=== PATIENT | male | born 1960 | race Caucasian/White ===

== ENCOUNTER → 2017-12-14 11:47 | Outpatient (CLI) | payer OTHER, MEDICARE, SELFPAY ==
[2017-12-14 15:39] LABS: ALB/GLOB Ratio 0.9 RATIO (0.9-2.4); AST(SGOT) 39 U/L (15-37); Alanine Aminotransfer ALT/SGPT 45 U/L (16-61); Albumin, Serum 3.7 g/dL (3.2-5.0); Alkaline Phosphatase 90 U/L (45-117); Anion Gap 7 (5-15); BUN 23 mg/dL (7-18); BUN/Creat Ratio 12.8 RATIO (10-20); Calcium,Total 9.2 mg/dL (8.5-10.1); Chloride 102 mmol/L (98-107); Cholesterol 233 mg/dL (200); Creatinine, Serum 1.79 mg/dL (0.70-1.30); EST Glomerular Filtration Rate 42 mL/min (>60); Est Glom Filt Rate - Afr Amer 50 mL/min (>60); Globulin 4.1 g/dL (2.2-4.2); Glucose 121 mg/dL (74-106); High Density Lipoprotein 38 mg/dL; Potassium 3.6 mmol/L (3.5-5.1); Protein, Total 7.8 g/dL (6.4-8.2); Sodium Level 139 mmol/L (136-145); Triglycerides 251 mg/dL; Very Low Density Lipoprotein 50 mg/dL (5-40)
[2017-12-14 15:44] LABS: Absolute Lymphocyte Count 1.14 X10^3/ul (0.83-4.51); Absolute Neutrophil Count 5.3 X10^3/uL (2.0-7.7); Basophil# 0.05 X10^3/uL; Basophil% 0.7 % (0-1); Eosinophil# 0.27 X10^3/uL; Eosinophils% 3.6 % (0-5); Hematocrit 46.2 % (40-54); Hemoglobin 16.1 g/dl (13.0-16.5); Lymphocyte # 1.14 X10^3/ul (4.0); Mean Corp Hgb Conc 34.8 g/gl (32-36); Mean Corpuscular Hgb 30.1 pg (27.0-32.0); Mean Corpuscular Volume 86.4 fL (80-94); Mean Platelet Vol. 13.3 fl (6.2-12.0); Monocyte# 0.78 X10^3/uL; Monocyte% 10.3 % (0-10); Neutrophil # 5.26 X10^3/uL (2.7-7.7); Neutrophil % 69.3 % (47-70); POSITIVE COUNT NO; POSITIVE DIFFERENTIAL NO; POSITIVE MORPHOLOGY NO; Platelet Count 150 K/mm3 (150-450); RBC Distribution Width CV 13.5 % (11.6-14.6); RBC Distribution Width SD 41.6 fl (35.1-43.9); Red Blood Count 5.35 M/mm3 (4.6-6.2); White Blood Count 7.6 K/mm3 (4.4-11.0)
[2017-12-14 15:47] LABS: Hemoglobin A1c 8.5 % (4.2-6.3)
[2017-12-14 16:11] LABS: Microalbumin:Creatinine Ratio 749.2 mg/g CRE (<30 mg/g CRE)
[2017-12-15 13:36] LABS: LDL, Direct 120295 155 mg/dL (0-99)
== END ==
PROVIDERS: Family Provider Family Medicine; PCP Family Medicine; Visit Provider Family Medicine
DX: E11.311 Type 2 diabetes mellitus with unspecified diabetic retinopathy with macular edema (principal); I10 Essential (primary) hypertension; E87.6 Hypokalemia; N18.3 Chronic kidney disease, stage 3 (moderate); E66.9 Obesity, unspecified
CPT/HCPCS: 36415; 80053; 80061; 82043; 82570; 83036; 83721; 85025

== ENCOUNTER 2017-12-14 12:56 | Emergency (ER) | payer OTHER, SELFPAY ==
[2017-12-14 12:58] VITALS: BP 108/68; PULSE 107; RESP 18; TEMP 37.1; O2SAT 97; BMI 28.7
--- NOTE | 2017-12-14 14:58 | ED.VISSUMM ---
- ER Visit Summary Date of Service: 12/14/17 Chief Complaint: Right arm numbness History of Present Illness: The patient is a 57 M patient presents with 3 week history of right arm numbness he is left-handed but feels paresthesias in his right arm only below the elbow. Above the elbow he has full strength sensation and full range of motion below the elbow he has full strength and full range of motion but feels some subjective paresthesias. He claims this is circumferential. He has no headache, no facial droop no speech difficulties no vision changes or any other neurological symptoms. Physical Examination: Not appear in acute distress. Moist mucous membranes, no obvious facial deformity No C-spine tenderness supple neck. Regular rate and rhythm without any obvious murmurs Clear lungs bilaterally speaking in full sentences without any obvious respiratory distress Abdomen soft and nontender no guarding or rebound Moves all extremities without any difficulty or pain. Skin does not show any obvious rashes or lesions, no trauma. Alert oriented ?3 with no gross focal deficit. He does have subjective paresthesias below his elbow, this is circumferential he claims he has decreased sensation again this is in no nerve distribution area it is circumferential and all below the elbow he has normal sensation above the elbow no neck pain. He has normal cranial nerves normal gait and otherwise normal neurological exam Emergency Department Course and Treatment: I am unsure about the pathology of the disease, however I am not worried about specific nerve, I am not worried about cervical or brain lesions, patient will be discharged to follow-up with neurology. Disposition: Discharge stable condition Impression: Right arm paresthesias This note was generated with [employer] dictation software. It may contain incorrect words, spelling, and punctuation that were not noted in review of the chart prior to signing ED Disposition - Plan for ED Patient: Disposition: Home or Assisted Living Chief Complaint: Numb/Ting Instructions: ED Neuropathy Peripheral Referrals: Adriel Elizabeth MD [STAFF PHYSICIAN] - 3-5 Days
--- NOTE | 2017-12-14 15:16 | ED.RN ---
pt given written and verbal discharge instructions and home going prescriptions. pt verbalizes understanding. pt educated any new or worsened sx to return to ed immediately otherwise fo.low up with dr. bedoya. pt ambulates out of dept by self.
== END 2017-12-14 15:18 | disposition home or self-care (01) ==
PROVIDERS: Emergency Provider Emergency Medicine; Family Provider Family Medicine; PCP Family Medicine
DX: R20.2 Paresthesia of skin (principal); G62.9 Polyneuropathy, unspecified; Z79.82 Long term (current) use of aspirin; Z79.899 Other long term (current) drug therapy; Z72.0 Tobacco use
CPT/HCPCS: 99281

== ENCOUNTER 2018-04-06 19:56 | Observation (INO) | payer OTHER, MEDICARE, SELFPAY ==
[2018-04-06 19:58] VITALS: BP 139/80; PULSE 108; RESP 17; TEMP 36.4; O2SAT 100; BMI 29.5
[2018-04-06 20:55] LABS: Absolute Lymphocyte Count 0.95 X10^3/ul (0.83-4.51); Absolute Neutrophil Count 17.1 X10^3/uL (2.0-7.7); Basophil# 0.01 X10^3/uL; Basophil% 0.1 % (0-1); Eosinophil# 0.01 X10^3/uL; Eosinophils% 0.1 % (0-5); Hematocrit 48.1 % (40-54); Hemoglobin 17.2 g/dl (13.0-16.5); Lymphocyte # 0.95 X10^3/ul (4.0); Lymphocyte % 4.9 % (19-41); Mean Corp Hgb Conc 35.8 g/gl (32-36); Mean Corpuscular Hgb 30.3 pg (27.0-32.0); Mean Corpuscular Volume 84.8 fL (80-94); Mean Platelet Vol. 11.9 fl (6.2-12.0); Monocyte# 1.38 X10^3/uL; Monocyte% 7.1 % (0-10); Neutrophil # 17.07 X10^3/uL (2.7-7.7); Neutrophil % 87.5 % (47-70); Platelet Count 209 K/mm3 (150-450); RBC Distribution Width CV 12.9 % (11.6-14.6); RBC Distribution Width SD 39.4 fl (35.1-43.9); Red Blood Count 5.67 M/mm3 (4.6-6.2); White Blood Count 19.5 K/mm3 (4.4-11.0)
[2018-04-06 21:00] LABS: Anion Gap 10 (5-15); BUN 61 mg/dL (7-18); BUN/Creat Ratio 27.6 RATIO (10-20); Calcium,Total 9.3 mg/dL (8.5-10.1); Chloride 82 mmol/L (98-107); Creatinine, Serum 2.21 mg/dL (0.70-1.30); EST Glomerular Filtration Rate 33 mL/min (>60); Est Glom Filt Rate - Afr Amer 39 mL/min (>60); Estimated Creatinine Clearance 35.99 ml/min; Glucose 433 mg/dL (74-106); Potassium 3.7 mmol/L (3.5-5.1); Sodium Level 126 mmol/L (136-145)
[2018-04-06 21:03] LABS: POSITIVE COUNT NO; POSITIVE DIFFERENTIAL NO; POSITIVE MORPHOLOGY NO
[2018-04-06 21:29] VITALS: BP 147/87; PULSE 94; RESP 14; O2SAT 94
--- NOTE | 2018-04-06 22:03 | CT_ITS ---
HISTORY: ABD PAIN. Prior back surgery and hernia repair TECHNIQUE: Helically acquired images were obtained of the abdomen and pelvis without oral or IV contrast as per renal stone protocol. A radiation dose optimization technique was used for this scan. IV Contrast dosage and agent: None. Oral contrast: None. COMPARISON: 04/10/2017 FINDINGS: GI tract: Localized gas and fluid distention of mildly dilated jejunal small bowel loops within the left abdomen and diagnostic considerations would include focal ileus or possibly partial small bowel obstruction. Small bowel loops measure up to 3.4 cm in diameter. No discrete transition zone and no obstructing lesion seen. CT barium has not yet reached the colon. The colon appears normal and is nondilated with gas and fecal residue. Normal appendix. Lower thorax: No pleural effusion. Limited non-infusion exam. Allowing for this, the liver, spleen, pancreas, gallbladder, and biliary system show no CT abnormality. Both kidneys are normal in position. No renal or ureteral calculi and no hydronephrosis or hydroureter. Adrenal glands are not enlarged. Abdominal aorta is diffusely atherosclerotic and is normal in caliber. No ascites or retroperitoneal lymphadenopathy. Pelvis: The prostate gland is not enlarged. Urinary bladder appears normal. The pelvis shows no free fluid or lymphadenopathy. Bones: Laminectomy with surgical fusion of the lower lumbar spine. No acute osseous abnormality. CT/Abdomen/Pelvis without Cont IMPRESSION: 1. Localized gas and fluid distention of jejunal small bowel loops representing localized ileus or possibly partial small bowel obstruction. No obstructing lesion seen. 2. Extensive atherosclerotic calcifications. 3. Lumbar spine surgical fusion. Individualized dose optimization techniques were used for this CT. at 0034 Reported and signed by: David Dougherty MD N.B. : The above information has been verbally conveyed by David Dougherty to Dr. Jaki MD, on 04/07/2018 00:58:46 (ET). Electronically Signed: David Dougherty, at 0:33 EST Tel , Service support ,
--- NOTE | 2018-04-06 22:06 | ED.DCSUM_ITS ---
- ER Visit Summary Date of Service: 04/06/18 Chief Complaint: Vomiting and abdominal pain History of Present Illness: The patient is a 57 M who presents for 2 days of vomiting and abdominal pain. Patient states he began vomiting 2 days ago, and has been having associated abdominal cramping diffusely. He has had subjective cold sweats but no measured fever. He denies diarrhea and is having normal bowel movements. No urinary symptoms. No chest pain, shortness of breath, cough or upper respiratory symptoms. Patient is diabetic and has history of peripheral neuropathy. Multiple back surgeries but no history of abdominal surgery. He is not on blood thinners. Physical Examination: Vital signs: afebrile, hemodynamically stable, no hypoxia on room air General: well nourished, well developed, appears uncomfortable Skin: warm, dry, no rash, pale HEENT: normocephalic and atraumatic; PERRL, EOMI, dry mucous membranes Cardiovascular: Tachycardic rate and rhythm without murmurs, no peripheral edema, 2+ pulses all distal extremities Respiratory: No increased work of breathing, lungs are clear to auscultation bilaterally, no rales, rhonchi or wheezing Abdominal: Abdomen is soft, diffusely tender to light palpation, especially in the periumbilical region with normoactive bowel sounds, no guarding or rebound, no masses MSK: Moves all extremities, no deformities, normal strength Neuro: Awake and alert, oriented ?4. No facial droop, sensation and motor function intact and symmetric Test Results: Abnormal Lab Results 04/06/18 04/06/18 04/06/18 20:37 20:37 20:37 WBC 19.5 H RBC 5.67 Hgb 17.2 H Hct 48.1 MCV 84.8 MCH 30.3 MCHC 35.8 RDW 12.9 RDW Differential 39.4 Plt Count 209 MPV 11.9 Immature Gran % (Auto) 0.300 Neut % (Auto) 87.5 H Lymph % (Auto) 4.9 L [place] % (Auto) 7.1 Eos % (Auto) 0.1 Baso % (Auto) 0.1 Absolute Neuts (auto) 17.1 H Absolute Lymphs (auto) 0.95 Total Counted Not Reportable Sodium 126 L Potassium 3.7 Chloride 82 L Carbon Dioxide 34.0 H Anion Gap 10 BUN 61 H Creatinine 2.21 H Estim Creat Clear Calc 35.99 Est GFR (MDRD) Af Amer 39 L Est GFR (MDRD) Non-Af 33 L BUN/Creatinine Ratio 27.6 H Glucose 433 H Calcium 9.3 Total Bilirubin 1.20 H Direct Bilirubin 0.33 H AST 11 L ALT 19 Alkaline Phosphatase 164 H Total Protein 7.6 Albumin 3.7 Globulin 3.9 Lipase Urine Color Urine Clarity Urine pH Ur Specific [place] Urine Protein Urine Glucose (UA) Urine Ketones Urine Occult Blood Urine Nitrite Urine Bilirubin Urine Urobilinogen Ur Leukocyte Esterase Urine RBC Urine WBC Ur Squamous Epith Cells Urine Bacteria Urine Mucus 04/06/18 04/06/18 20:37 23:26 WBC RBC Hgb Hct MCV MCH MCHC RDW RDW Differential Plt Count MPV Immature Gran % (Auto) Neut % (Auto) Lymph % (Auto) [place] % (Auto) Eos % (Auto) Baso % (Auto) Absolute Neuts (auto) Absolute Lymphs (auto) Total Counted Sodium Potassium Chloride Carbon Dioxide Anion Gap BUN Creatinine Estim Creat Clear Calc Est GFR (MDRD) Af Amer Est GFR (MDRD) Non-Af BUN/Creatinine Ratio Glucose Calcium Total Bilirubin Direct Bilirubin AST ALT Alkaline Phosphatase Total Protein Albumin Globulin Lipase 144 Urine Color Yellow Urine Clarity Clear Urine pH 5.0 Ur Specific [place] 1.020 Urine Protein 100 H Urine Glucose (UA) 1000 H Urine Ketones 15 H Urine Occult Blood 25 H Urine Nitrite Negative Urine Bilirubin Negative Urine Urobilinogen Normal Ur Leukocyte Esterase Negative Urine RBC 0-5 SEEN Urine WBC 0-5 SEEN Ur Squamous Epith Cells 0-5 SEEN Urine Bacteria RARE Urine Mucus 0 SEEN Clinical Impression(s) from Imaging Studies Brain CT 04/06/18 22:19 IMPRESSION: 1. No hemorrhage or acute disease identified. 2. Bilateral remote infarcts and white matter chronic ischemic changes. 3. Right ethmoid sinusitis and chronic appearing right sphenoid sinusitis. Individualized dose optimization techniques were used for this CT. at 0016 Reported and signed by: David Dougherty MD Electronically Signed: David Dougherty, at 0:15 EST Tel , Service support , Medications Given Discontinued Medications Sodium Chloride () 1,000 mls @ 999 mls/hr IV .Q1H1M ONE Stop: 04/06/18 23:02 Last Admin: 04/06/18 22:10 Dose: 999 mls/hr Morphine Sulfate () 4 mg IV X1 ONE Stop: 04/06/18 22:03 Last Admin: 04/06/18 22:10 Dose: 4 mg Ondansetron HCl (Zofran) 4 mg IV X1 ONE Stop: 04/06/18 22:03 Last Admin: 04/06/18 22:10 Dose: 4 mg Emergency Department Course and Treatment: Patient was given IV fluids for hydration. Labs were performed. Patient received Zofran and morphine for symptomatic relief. Patient has a leukocytosis of 19.5. Hyponatremia of 126 and hyperglycemia of 433, so corrected sodium of 131. Patient has significantly elevated BUN and elevated creatinine compared to his baseline, consistent with dehydration. His examination and labs are consistent with dehydration. CT abdomen and pelvis performed to look for any significant intra-abdominal pathology. Patient will likely require admission for treatment of his dehydration, symptomatic control of his vomiting and abdominal pain in a patient with underlying diabetes. Patient was signed out to the night physician for follow-up of imaging and final disposition. During patient's workup, he told 1 of the nurses that he fell twice in the last 2 days, striking his head both times. Patient is not on blood thinners. A head CT was performed that showed no intracranial hemorrhage. Patient had no findings on exam that were concerning for traumatic injuries that would need further evaluation. Treatment Plan: [] Disposition: [] Impression: Hyperglycemia, acute dehydration, vomiting illness, abdominal pain This note was generated with [employer] dictation software. It may contain incorrect words, spelling, and punctuation that were not noted in review of the chart prior to signing ED Disposition - Plan for ED Patient: Chief Complaint: Nausea/Vomiting Referrals: Chema Mckeon DO [Primary Care Provider] -
[2018-04-06] MEDS: Morphine 4 MG/ML Syringe IV (22:10)
[2018-04-06] MEDS: Ondansetron 4 MG/2 ML Vial IV (22:10)
[2018-04-06] MEDS: 0.9% Normal Saline 1,000 ML 999 ML IV (22:10)
--- NOTE | 2018-04-06 22:19 | CT_ITS ---
HISTORY: Fall x 2 in last 2 days TECHNIQUE: Multiple axial images were obtained of the brain without intravenous contrast. A radiation dose optimization technique was used for this scan. IV Contrast dosage and agent: None. COMPARISON: None FINDINGS: No hydrocephalus. Left parietal remote cortical and subcortical infarct with ipsilateral ex vacuo mild dilatation of the left lateral ventricle. White matter chronic ischemic changes and right thalamic remote lacunar infarct No intracranial mass, hemorrhage, or acute disease seen. No significant mass-effect. Posterior fossa structures are unremarkable. No suspicious extra-axial fluid collection. Bilateral carotid atherosclerotic calcifications Chronic appearing opacification of the right sphenoid sinus. Posterior ethmoid mild sinusitis on the right. Probable remote blowout fracture of the medial wall of the left orbit. Secondary encroachment of the left ethmoid air cells. Mastoids appear clear. The calvarium appears intact. No scalp hematoma seen. CT/Brain/Head without Contrast IMPRESSION: 1. No hemorrhage or acute disease identified. 2. Bilateral remote infarcts and white matter chronic ischemic changes. 3. Right ethmoid sinusitis and chronic appearing right sphenoid sinusitis. Individualized dose optimization techniques were used for this CT. at 0016 Reported and signed by: David Dougherty MD Electronically Signed: David Dougherty, at 0:15 EST Tel , Service support ,
--- NOTE | 2018-04-06 22:21 | ED.RN ---
DR. GRANGER MADE AWARE THAT PATIENT TOLD ME THAT HE FELL TWICE YESTERDAY ON HIS FACE. SHE IS GOING TO ORDER A HEAD CT.
[2018-04-06 22:23] LABS: Lipase 144 U/L (73-393)
[2018-04-06 22:28] LABS: AST(SGOT) 11 U/L (15-37); Alanine Aminotransfer ALT/SGPT 19 U/L (16-61); Albumin, Serum 3.7 g/dL (3.2-5.0); Alkaline Phosphatase 164 U/L (45-117); Bilirubin, Direct 0.33 mg/dL (0.00-0.30); Globulin 3.9 g/dL (2.2-4.2); Protein, Total 7.6 g/dL (6.4-8.2)
[2018-04-06 23:18] VITALS: BP 172/94; PULSE 90; RESP 14; O2SAT 95
[2018-04-06 23:29] LABS: Mucous, Urine 0 SEEN /hpf (<or=2+)
[2018-04-06 23:32] LABS: Color, Urine Yellow (Yellow); Glucose, Dipstick 1000 mg/dl (Normal); Ketone-Dipstick 15 mg/dl (Negative); Leukocyte Esterase-Dipstick Negative /ul (Negative); Nitrite-Dipstick Negative (Negative); Occult Blood-Urine 25 /ul (Negative); Protein-Dipstick 100 mg/dl (Negative); Urine Bilirubin Dipstick Negative (Negative); Urine Clarity Clear (Clear); Urine Urobilinogen Normal (Normal)
[2018-04-06 23:44] LABS: Bacteria RARE /hpf (None Seen)
[2018-04-06 23:45] LABS: Red Blood Cells-Urine 0-5 SEEN /hpf (0-5); Squamous Epithelial Cells - UA 0-5 SEEN /hpf (0-5); White Blood Cells 0-5 SEEN /hpf (0-5)
[2018-04-07] VITALS (11 sets, daily range): BP systolic 114–174; BP diastolic 75–101; PULSE 70–88; RESP 16–22; TEMP 36.5–37; O2SAT 95–98; BMI 29.2; BMI 29.3
[2018-04-07] MEDS: Lactated Ringers 1,000 ML 250 ML IV (01:08)
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
[2018-04-07 02:16] LABS: Bedside Glucose 353 mg/dL (70-110)
[2018-04-07] MEDS: Potassium Chloride 40 MEQ in 0.9% Normal Saline 1,000 ML 100 MEQ IV (04:28)
[2018-04-07] MEDS: Heparin Injection (Vial) 5,000 UNIT/ML VIAL 5000 UNIT SC ×3 (04:56→22:14)
[2018-04-07] MEDS: Insulin Lispro 100 UNIT/ML INSULN.PEN SQ ×3 (05:00→16:23)
[2018-04-07 05:06] LABS: Bedside Glucose 342 mg/dL (70-110)
[2018-04-07 05:43] LABS: Absolute Lymphocyte Count 1.39 X10^3/ul (0.83-4.51); Absolute Neutrophil Count 14.4 X10^3/uL (2.0-7.7); Basophil# 0.01 X10^3/uL; Basophil% 0.1 % (0-1); Eosinophil# 0.02 X10^3/uL; Eosinophils% 0.1 % (0-5); Hematocrit 45.5 % (40-54); Hemoglobin 16.2 g/dl (13.0-16.5); Lymphocyte # 1.39 X10^3/ul (4.0); Lymphocyte % 8.1 % (19-41); Mean Corp Hgb Conc 35.6 g/gl (32-36); Mean Corpuscular Hgb 30.2 pg (27.0-32.0); Mean Corpuscular Volume 84.7 fL (80-94); Mean Platelet Vol. 12.4 fl (6.2-12.0); Monocyte# 1.27 X10^3/uL; Monocyte% 7.4 % (0-10); Neutrophil # 14.42 X10^3/uL (2.7-7.7); Platelet Count 200 K/mm3 (150-450); RBC Distribution Width CV 12.9 % (11.6-14.6); RBC Distribution Width SD 39.1 fl (35.1-43.9); Red Blood Count 5.37 M/mm3 (4.6-6.2); White Blood Count 17.2 K/mm3 (4.4-11.0)
[2018-04-07 05:46] LABS: POSITIVE COUNT NO; POSITIVE DIFFERENTIAL NO; POSITIVE MORPHOLOGY NO
[2018-04-07 05:57] LABS: Anion Gap 11 (5-15); BUN 54 mg/dL (7-18); BUN/Creat Ratio 27.4 RATIO (10-20); Calcium,Total 8.6 mg/dL (8.5-10.1); Chloride 89 mmol/L (98-107); Creatinine, Serum 1.97 mg/dL (0.70-1.30); EST Glomerular Filtration Rate 37 mL/min (>60); Est Glom Filt Rate - Afr Amer 45 mL/min (>60); Estimated Creatinine Clearance 40.37 ml/min; Glucose 329 mg/dL (74-106); Potassium 3.9 mmol/L (3.5-5.1); Sodium Level 133 mmol/L (136-145)
[2018-04-07] MEDS: hydrALAZINE 20 MG/ML Vial 10 MG IV ×2 (06:03→20:07)
[2018-04-07] MEDS: Metoprolol Tartrate 50 MG Tablet PO ×2 (06:05→22:14)
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
[2018-04-07] MEDS: Pregabalin 50 MG Capsule 100 MG PO ×2 (08:28→22:15)
[2018-04-07] MEDS: Fenofibrate 48 MG Tablet PO (09:41)
[2018-04-07 09:50] LABS: Hemoglobin A1c 9.3 % (4.2-6.3)
--- NOTE | 2018-04-07 10:28 | CASEMGMT ---
Assessment SW attempted to see pt, however pt sleeping soundly. Call placed to pt Karen. Pt lives at home with . works during day and pt is alone. states that pt has been falling daily at home and it takes time for him to get up. Pt does not have a medical alert. Pt brother in law does live upstairs but does not come down often to assist pt. Pt does have two children but they are not involved. assists pt with shower and meals but states pt does not eat properly when she is not home. also expressing concerns that pt is not taking medication or insulin and when attempts to encourage pt to take meds he gets angry with her. Pt is current with [facility] and states pt adores his [facility] liason, but doesn't listen to her. Pt has never has HHS or use a SNF. also stating she feels pt is giving up on life. Per pt sleeps most of the day and becomes angry at her and will not talk to her for several days at a time. Pt feels pt is depressed and in denial. SW inquired if pt has ever spoke with a counselor and pt has not. Pt does have a PCP but often cancels his appointments. Pt is agreeable to home health PT/OT/RN if warranted. SW will continue to follow for d/c planning. AVANI Edmondson
[2018-04-07] MEDS: Ondansetron 4 MG/2 ML Vial IV ×2 (11:24→20:08)
[2018-04-07 11:26] LABS: Bedside Glucose 190 mg/dL (70-110)
--- NOTE | 2018-04-07 12:42 | CASEMGMT ---
Social Work Met with pt in room and introduced self and role of SW. Pt stating that he has been falling a lot at home. States he uses a cane and walker but loses his balance and will fall frequently. Pt states if his were not still with him he would not be able to live alone and also states he is alone all the time because he is always at work. SW inquired about taking medications and pt is adamant that he takes meds and insulin just as ordered. SW asked pt if he would be open to home health services if warranted and pt agreeable. Also discussed possibility of SNF and pt is willing to go to SNF for rehab if needed for my family. SW explained that PT/OT has been ordered and will be in to evaluate his level of care needs. SW asked pt about feelings of depression and pt immediately became tearful and admits to feeling depressed. Pt reviewing difficult things in past that he feels have attributed to depression. Pt also states he gets angry at and yells at her and then realizes she has not done anything wrong. Pt states he then has to get right in my head and straighten myself out. Pt admits to sleeping much of the time while at home. SW spoke with pt about talking to a counselor. Pt states he never has but is agreeable to talk to someone at this time. Message left with Varinder at [facility]. Will await return call to make referral. Will continue to follow to determine appropriate d/c plan. AVANI Edmondson
[2018-04-07 16:31] LABS: Bedside Glucose 190 mg/dL (70-110)
[2018-04-07] MEDS: diazePAM 5 MG Tablet PO (20:08)
[2018-04-07 22:31] LABS: Bedside Glucose 199 mg/dL (70-110)
[2018-04-08] VITALS (13 sets, daily range): BP systolic 147–178; BP diastolic 69–95; PULSE 64–85; RESP 16–18; TEMP 36.7–37; O2SAT 96–98
[2018-04-08] MEDS: Insulin Lispro 100 UNIT/ML INSULN.PEN SQ ×4 (00:33→17:26)
[2018-04-08 00:41] LABS: Bedside Glucose 197 mg/dL (70-110)
[2018-04-08] MEDS: 0.9% NaCl Peripheral Flush Adult/Peds IV ×3 (03:04→20:12)
[2018-04-08] MEDS: Heparin Injection (Vial) 5,000 UNIT/ML VIAL 5000 UNIT SC ×3 (06:07→21:41)
[2018-04-08 06:21] LABS: Bedside Glucose 159 mg/dL (70-110)
[2018-04-08 06:51] LABS: Absolute Lymphocyte Count 1.28 X10^3/ul (0.83-4.51); Absolute Neutrophil Count 6.8 X10^3/uL (2.0-7.7); Basophil# 0.01 X10^3/uL; Basophil% 0.1 % (0-1); Eosinophils% 1.1 % (0-5); Hematocrit 45.6 % (40-54); Lymphocyte # 1.28 X10^3/ul (4.0); Lymphocyte % 14.1 % (19-41); Mean Corp Hgb Conc 35.1 g/gl (32-36); Mean Corpuscular Hgb 30.2 pg (27.0-32.0); Mean Platelet Vol. 12.3 fl (6.2-12.0); Monocyte# 0.85 X10^3/uL; Monocyte% 9.4 % (0-10); Neutrophil # 6.82 X10^3/uL (2.7-7.7); Platelet Count 174 K/mm3 (150-450); RBC Distribution Width CV 12.9 % (11.6-14.6); RBC Distribution Width SD 40.1 fl (35.1-43.9); White Blood Count 9.1 K/mm3 (4.4-11.0)
[2018-04-08 06:52] LABS: POSITIVE COUNT NO; POSITIVE DIFFERENTIAL NO; POSITIVE MORPHOLOGY NO
[2018-04-08 06:54] LABS: Anion Gap 8 (5-15); BUN 38 mg/dL (7-18); BUN/Creat Ratio 23.6 RATIO (10-20); Calcium,Total 8.7 mg/dL (8.5-10.1); Chloride 95 mmol/L (98-107); Creatinine, Serum 1.61 mg/dL (0.70-1.30); EST Glomerular Filtration Rate 47 mL/min (>60); Est Glom Filt Rate - Afr Amer 57 mL/min (>60); Glucose 161 mg/dL (74-106); Potassium 3.4 mmol/L (3.5-5.1); Sodium Level 135 mmol/L (136-145)
[2018-04-08] MEDS: Pregabalin 50 MG Capsule 100 MG PO ×2 (07:45→21:41)
[2018-04-08] MEDS: Metoprolol Tartrate 50 MG Tablet PO ×2 (07:45→21:40)
[2018-04-08] MEDS: Fenofibrate 48 MG Tablet PO (07:46)
--- NOTE | 2018-04-08 08:41 | CASEMGMT ---
Social Work Left for Varinder at [facility] with referral information. AVANI Edmondson
[2018-04-08 11:55] LABS: Bedside Glucose 171 mg/dL (70-110)
--- NOTE | 2018-04-08 14:08 | BH.NOTE ---
ESTRELLA: Inpatient Note - Notes [facility] Inpatient Note: 04/08/18 14:08 Referral to [facility] from social work due to depression and anxiety. Met with pt in his room. Reports increased depression related to worsening medical issues leading to loss of independence. Endorses poor quality of life as he often passes out, spends most of the day alone, and cannot walk. He is fearful he will need a wheelchair in the future. Tearful. Denies suicidal ideations, plan, intent, or hx of attempts. Reports thoughts similar to what is the point of living like this, however states that he is frustrated with current medical issues and is not suicidal. Family-oriented. Protective factors are his kids and grandkids stating I have to get better for them. Discussed plan for placement in SNF and possibly long-term care as he cannot care for himself at home and his works all day. He believes that SNF will help build his strength up and improve walking. States that currently he is scared to leave his bed and perform ADLs. Insight and motivation to work on mental health symptoms stating I need to get my head straight. Discussed treatment options with social work. Current plan is for [facility] placement. Recommended that social work inform NH that pt would benefit greatly from psychiatric evaluation and counseling while in [facility] care.
[2018-04-08] MEDS: DULoxetine Hcl 30 MG Capsule PO (15:34)
--- NOTE | 2018-04-08 16:40 | CASEMGMT ---
Social Work Time spent with pt discussing discharge plan. Pt brother present for some of the conversation and pt is appreciative of this. Reviewed with pt d/c options and pt stating that he does not feel he is safe to return home. Pt is afraid to return home due to his frequent falls and pt is alone most of the time. SW discussed SNF with pt and short term stay for therapy and rehab prior to returning home. Pt stating that he does not think he can return home and that supervisor intermediates placement after skilled stay will likely be needed. Pt does become tearful throughout discussion and emotional support provided. Discussed options of SNF's that are in network with insurance and pt would like to [facility] but pt would prefer to speak with about this. After and brother came to pt room SW returned and spoke with pt, and pt brother. Discussed previous conversation with pt about SNF stay and group home vs. short term stay. Pt and brother agreeable that pt is in need of group home placement. SW presented options and pt and family agreeable to [facility]. Referral faxed to Addis at [facility]. Return call from Addis and [facility] is able to accept pt. Precert to be started today. Addis informed SW of pt insurance benefit and SW provided information to pt and to . indicates she understands and is able to afford initial shelter costs not covered by insurance. SW explained that after skilled days are no longer approved through insurance pt will be private pay. Pt and indicate this will be a problem. Medicaid explained and application provided to pt . She plans to complete and take to S. Emotional support provided to pt throughout multiple visits in pt room today. VM left with Addis at [facility] requesting pt be seen by psychological services once he arrives at facility. Pt is agreeable to this and states he feels it will be helpful for him. Plan: [facility], pending precert AVANI Edmondson
--- NOTE | 2018-04-08 16:59 | PCM.PROGNOTE ---
Patient Problems: Active and Suspected Problems Intractable nausea and vomiting (Acute) Subjective: Patient was seen and examined today, he talked with social worker clinical and feels that he needs to go to a halfway facility for rehab, he does not feel safe at home alone, he states that his is not home most of the day-she works-and he does not feel safe. I advanced the patient's diet today, I talked with him briefly about taking an antidepressant because he seems tearful when talking with him. He has agreed to try Cymbalta. - Physical Exam General: Alert, Oriented x3, Cooperative, No apparent distress, Well developed HEENT: Atraumatic, PERRLA, EOMI, Normocephalic Oral: Moist Mucosa Neck: Supple, No Nuchal Rigidity, Trachea Midline, Thyroid Normal Size and Texture Lungs: Clear to auscultation, Normal air movement, No rhonchi, No wheeze, No rales Cardiovascular: Regular rate, Regular Rhythm, Normal S1, Normal S2, No murmurs, No Ectopic Activity, PMI Normal, No rub noted Abdomen: Bowel Sounds Present, Soft, Non Tender, Non-Distended, No hernias noted Extremities: No clubbing, No cyanosis, Capillary Refill Less than 3 Seconds Skin: No rashes, No breakdown Musculoskeletal: No Tenderness to Palpation of Joints or Extremities Neurological: Cranial nerves II-XII grossly intact, Neuro grossly intact Psych/Mental Status: Flat Affect, Depressed Vital Signs Temp Pulse Resp BP Pulse Ox 98.2 F 64 18 148/78 H 98 04/08/18 14:15 04/08/18 15:42 04/08/18 14:15 04/08/18 14:15 04/08/18 14:15 Oxygen Delivery Method Room Air Weight: 90 kg Body Mass Index (BMI) 29.2 Finger Stick Blood Glucose 153 Intake and Output for Last 24 Hours 04/06/18 04/07/18 04/08/18 23:59 23:59 23:59 Intake Total 2059 / 2059 1215 / 1215 Output Total 1400 / 1400 850 / 850 Balance 659 / 659 365 / 365 Laboratory Tests Past 24 Hrs 04/08/18 04/08/18 06:28 06:28 WBC 9.1 RBC 5.30 Hgb 16.0 Hct 45.6 MCV 86.0 MCH 30.2 MCHC 35.1 RDW 12.9 RDW Differential 40.1 Plt Count 174 MPV 12.3 H Immature Gran % (Auto) 0.300 Neut % (Auto) 75.0 H Lymph % (Auto) 14.1 L Dodge % (Auto) 9.4 Eos % (Auto) 1.1 Baso % (Auto) 0.1 Absolute Neuts (auto) 6.8 Absolute Lymphs (auto) 1.28 Total Counted Not Reportable Sodium 135 L Potassium 3.4 L Chloride 95 L Carbon Dioxide 32.0 Anion Gap 8 BUN 38 H Creatinine 1.61 H Estim Creat Clear Calc 49.40 Est GFR (MDRD) Af Amer 57 L Est GFR (MDRD) Non-Af 47 L BUN/Creatinine Ratio 23.6 H Glucose 161 H Calcium 8.7 POC Glucose 04/08/18 04/08/18 04/08/18 11:43 06:05 00:32 POC Glucose 171 H 159 H 197 H 04/07/18 22:09 POC Glucose 199 H Medical Necessity - Tobacco Use Smoking Status: Light Smoker (<10/day) Tobacco Use: Pipe Assessment/Plan All Active Problems Intractable nausea and vomiting (Acute) FLORY (acute kidney injury) (Acute) Nonketotic hyperglycinemia (Resolved) Nausea (Acute) Abdominal pain (Acute) Hematochezia (Resolved) #1 acute kidney injury-etiology unknown, I feel the patient has baseline chronic kidney disease from his type 2 diabetes, I am unsure how much fluid he actually drinks at home. At this time, I will reevaluate his IV fluid rate, I will advance his diet. #2 uncontrolled nausea and vomiting-etiology unclear at this point, patient's diet will be advanced and he will be observed #3 generalized debility secondary to multiple medical problems including past history of closed head injury, PT and OT will see the patient, we will request insurance approval for placement in a halfway facility at least short-term #4 uncontrolled type 2 diabetes-again this may be secondary to lack of medical attention at home or noncompliance on the patient's part, patient's blood sugars have improved since he was admitted to the hospital #5 diabetic neuropathy #6 major depression-we will start the patient on Cymbalta at this time #7 localized ileus-resolving #8 degenerative joint disease of the lumbar spine Code Visit OBSV E&M: [id number] Subsequent observation care L3
--- NOTE | 2018-04-08 17:05 | PN_ITS ---
Patient Problems: Active and Suspected Problems Intractable nausea and vomiting (Acute) Subjective: Patient was seen and examined today, he talked with social media senior associate and feels that he needs to go to a fci facility for rehab, he does not feel safe at home alone, he states that his is not home most of the day-she works-and he does not feel safe. I advanced the patient's diet today, I talked with him briefly about taking an antidepressant because he seems tearful when talking with him. He has agreed to try Cymbalta. - Physical Exam General: Alert, Oriented x3, Cooperative, No apparent distress, Well developed HEENT: Atraumatic, PERRLA, EOMI, Normocephalic Oral: Moist Mucosa Neck: Supple, No Nuchal Rigidity, Trachea Midline, Thyroid Normal Size and Texture Lungs: Clear to auscultation, Normal air movement, No rhonchi, No wheeze, No rales Cardiovascular: Regular rate, Regular Rhythm, Normal S1, Normal S2, No murmurs, No Ectopic Activity, PMI Normal, No rub noted Abdomen: Bowel Sounds Present, Soft, Non Tender, Non-Distended, No hernias noted Extremities: No clubbing, No cyanosis, Capillary Refill Less than 3 Seconds Skin: No rashes, No breakdown Musculoskeletal: No Tenderness to Palpation of Joints or Extremities Neurological: Cranial nerves II-XII grossly intact, Neuro grossly intact Psych/Mental Status: Flat Affect, Depressed Vital Signs Temp Pulse Resp BP Pulse Ox 98.2 F 64 18 148/78 H 98 04/08/18 14:15 04/08/18 15:42 04/08/18 14:15 04/08/18 14:15 04/08/18 14:15 Oxygen Delivery Method Room Air Weight: 90 kg Body Mass Index (BMI) 29.2 Finger Stick Blood Glucose 153 Intake and Output for Last 24 Hours 04/06/18 04/07/18 04/08/18 23:59 23:59 23:59 Intake Total 2059 / 2059 1215 / 1215 Output Total 1400 / 1400 850 / 850 Balance 659 / 659 365 / 365 Laboratory Tests Past 24 Hrs 04/08/18 04/08/18 06:28 06:28 WBC 9.1 RBC 5.30 Hgb 16.0 Hct 45.6 MCV 86.0 MCH 30.2 MCHC 35.1 RDW 12.9 RDW Differential 40.1 Plt Count 174 MPV 12.3 H Immature Gran % (Auto) 0.300 Neut % (Auto) 75.0 H Lymph % (Auto) 14.1 L Irwin % (Auto) 9.4 Eos % (Auto) 1.1 Baso % (Auto) 0.1 Absolute Neuts (auto) 6.8 Absolute Lymphs (auto) 1.28 Total Counted Not Reportable Sodium 135 L Potassium 3.4 L Chloride 95 L Carbon Dioxide 32.0 Anion Gap 8 BUN 38 H Creatinine 1.61 H Estim Creat Clear Calc 49.40 Est GFR (MDRD) Af Amer 57 L Est GFR (MDRD) Non-Af 47 L BUN/Creatinine Ratio 23.6 H Glucose 161 H Calcium 8.7 POC Glucose 04/08/18 04/08/18 04/08/18 11:43 06:05 00:32 POC Glucose 171 H 159 H 197 H 04/07/18 22:09 POC Glucose 199 H Medical Necessity - Tobacco Use Smoking Status: Light Smoker (<10/day) Tobacco Use: Pipe Assessment/Plan All Active Problems Intractable nausea and vomiting (Acute) FLORY (acute kidney injury) (Acute) Nonketotic hyperglycinemia (Resolved) Nausea (Acute) Abdominal pain (Acute) Hematochezia (Resolved) #1 acute kidney injury-etiology unknown, I feel the patient has baseline chronic kidney disease from his type 2 diabetes, I am unsure how much fluid he actually drinks at home. At this time, I will reevaluate his IV fluid rate, I will advance his diet. #2 uncontrolled nausea and vomiting-etiology unclear at this point, patient's diet will be advanced and he will be observed #3 generalized debility secondary to multiple medical problems including past history of closed head injury, PT and OT will see the patient, we will request insurance approval for placement in a fci facility at least short- term #4 uncontrolled type 2 diabetes-again this may be secondary to lack of medical attention at home or noncompliance on the patient's part, patient's blood sugars have improved since he was admitted to the hospital #5 diabetic neuropathy #6 major depression-we will start the patient on Cymbalta at this time #7 localized ileus-resolving #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
[2018-04-08 17:40] LABS: Bedside Glucose 159 mg/dL (70-110)
[2018-04-08] MEDS: hydrALAZINE 20 MG/ML Vial 10 MG IV (20:11)
[2018-04-08] MEDS: diazePAM 5 MG Tablet PO (21:40)
[2018-04-08 21:50] LABS: Bedside Glucose 135 mg/dL (70-110)
[2018-04-09] VITALS (7 sets, daily range): BP systolic 120–168; BP diastolic 70–95; PULSE 60–66; RESP 16–18; TEMP 36.4–37; O2SAT 93–97
[2018-04-09] MEDS: Insulin Lispro 100 UNIT/ML INSULN.PEN SQ ×2 (00:32→12:26)
[2018-04-09 00:41] LABS: Bedside Glucose 165 mg/dL (70-110)
[2018-04-09] MEDS: Heparin Injection (Vial) 5,000 UNIT/ML VIAL 5000 UNIT SC ×3 (05:59→21:51)
[2018-04-09 06:06] LABS: Bedside Glucose 96 mg/dL (70-110)
[2018-04-09] MEDS: Fenofibrate 48 MG Tablet PO (08:04)
[2018-04-09] MEDS: Metoprolol Tartrate 50 MG Tablet PO ×2 (08:05→21:50)
[2018-04-09] MEDS: Pregabalin 50 MG Capsule 100 MG PO ×2 (08:12→21:51)
[2018-04-09] MEDS: DULoxetine Hcl 30 MG Capsule PO (08:12)
[2018-04-09 10:16] LABS: Bedside Glucose 214 mg/dL (70-110)
[2018-04-09 11:55] LABS: Bedside Glucose 273 mg/dL (70-110)
[2018-04-09] MEDS: diazePAM 5 MG Tablet PO (12:25)
--- NOTE | 2018-04-09 16:30 | CASEMGMT ---
Addendum entered and electronically signed by Susan Erickson 04/19/18 15:05: Clarification patient was not labor and delivery unit. Patient was on MS2 for this visit. -remedios. Original Note: Social Work Labor and Delivery Unit Summary: Alerted by nursing staff that family present and wanting to discuss discharge planning. Chart reviewed and noted that social work administrator who had been working with patient had previously included family in discussion. Presented to patient's room and found patient's son and daughter present, asking for updates, expressing concern for patient as well as wanting to ensure that after care needs are being looked into for patient. Patient gave verbal permission to have discussion and answer questions. Children inquiring what plan is being looked at. Children aware that SNF is being looked at but want to know if this is skilled or detention care. Educated that this is skilled care, that waiting on precert. Educated that length of time at the SNF will be dependent on patient's need, progress in therapy, and insurance coverage. Family asked about Medicaid and reports awareness that patient's has been given an application, but children want to know process as to how this works as report the may need some help. Printed off a new application, gave to the daughter and reviewed. Let family and patient know that this could be started right away, so that if patient does need longer term care then Medicaid would cover terminal block assembler care. Educated there is a spousal impoverishment clause, that JFS would look at all resources and what patient's needs to live in the community when looking at patient's medicaid application. Children asked about Medicare for patient versus Medicaid. Educated that Medicaid is income based and Medicare is based on social security and/or length of time on disability. Patient reports has been on disability for 3 years now, which would qualify patient for Medicare. Informed patient and family that it does appear patient has Medicare A only, educated to some of the benefits of part A, and that as patient's is still working the 's insurance is primary. Son asked to see patient's medical record. Informed the son that cannot go into the record and review the entire record, that if wants the record this will have to be requested through medical records department. Educated that [facility] is able to have more information than others, but still are limits. Family asked about getting a POAHC done for patient. Informed family that can address with patient but would do so on Wednesday, when able to have a one on one conversation, without influence of any family member as to what patient's true wishes are for the [facility]. Children accepted this without issue. Daughter did catch this race and sports book writer outside of the room and informed this race and sports book writer that she and the son have a good relationship with patient and patient's (of 35 years who is the stepmother to the patient's kids) but that patient and have been keeping from the kids as to what has been happening at home. Daughter reports had no idea how many times patient has fallen, that patient's just started to share things since patient has been in the hospital. Daughter reports she is a nurse and patient's son's is a nurse, that people in the family want to support patient and but very hard when don't' know the full information. ADULT CHILDREN: SON - Rogerio Munoz, [address] [place] [address]; [phone] DAUGHTER - Vanesa Libia, [address] [facility], [place] [address]; [phone] Observations: Children are presenting [place] [facility] [place] asking many questions, appearing to try to get the same information so as to know what to do to help move forward with getting patient access to care. Patient voicing much love for his kids and to feel protective of them. As the conversation went on the patient exhibited flights of ideas, rambling, jumping from one topic to the next but also with preoccupation about insurance and the government, not seeing the fruits of hard work for years. 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 Daughter did present to the nurses station and asked if patient has been evaluated by a psychologist. Nursing asked this race and sports book writer about the behavioral health consult. Let the daughter know that [facility] has started to address patient's emotional health issues, and that it was requested that patient have mental health support while at [facility]. Daughter reports this is fine, just wants to see that patient is offered help as daughter feels much of patient's decline in physical health is related to emotional health. Plan: Await precert from insurance for skilled care at [facility]. Family has been given medicaid application to start if terminal block assembler care is needed. Follow up on Wednesday to see if patient wants to complete advanced directives. -ARLYN Headley, OUTCOMES MANAGER
[2018-04-09 16:45] LABS: Bedside Glucose 140 mg/dL (70-110)
--- NOTE | 2018-04-09 17:04 | PCM.PROGNOTE ---
Patient Problems: Active and Suspected Problems Intractable nausea and vomiting (Acute) Subjective: Patient seen and examined today, he is less nauseous today, he requested that nursing allow him up to take a shower but nursing felt that he was too unstable to risk his falling in the shower. - Physical Exam General: Alert, Oriented x3, Cooperative, No apparent distress, Well developed HEENT: Atraumatic, PERRLA, EOMI, Normocephalic Oral: Moist Mucosa Neck: Supple, No Nuchal Rigidity, Trachea Midline, Thyroid Normal Size and Texture Lungs: Clear to auscultation, Normal air movement, No rhonchi, No wheeze, No rales Cardiovascular: Regular rate, Regular Rhythm, Normal S1, Normal S2, No murmurs, No Ectopic Activity, PMI Normal, No rub noted, No Gallop Abdomen: Bowel Sounds Present, Soft, Non Tender, Non-Distended, No hernias noted Extremities: No clubbing, No cyanosis, No edema, Capillary Refill Less than 3 Seconds Skin: No rashes, No breakdown Musculoskeletal: No Tenderness to Palpation of Joints or Extremities Neurological: Cranial nerves II-XII grossly intact, Neuro grossly intact Psych/Mental Status: Normal Affect, Appropriate, Alert and oriented to time, place, person, mood and affect Vital Signs Temp Pulse Resp BP Pulse Ox 98.1 F 64 18 120/70 97 04/09/18 14:00 04/09/18 14:00 04/09/18 14:00 04/09/18 14:00 04/09/18 14:00 Oxygen Delivery Method Room Air Weight: 90 kg Body Mass Index (BMI) 29.2 Finger Stick Blood Glucose 153 Intake and Output for Last 24 Hours 04/07/18 04/08/18 04/09/18 23:59 23:59 23:59 Intake Total 2059 / 2059 1575 / 1575 1220 / 1220 Output Total 1400 / 1400 850 / 850 750 / 750 Balance 659 / 659 725 / 725 470 / 470 POC Glucose 04/09/18 04/09/18 04/09/18 16:29 11:50 10:07 POC Glucose 140 H 273 H 214 H 04/09/18 04/09/18 04/08/18 05:56 00:30 21:37 POC Glucose 96 165 H 135 H 04/08/18 17:25 POC Glucose 159 H Medical Necessity - Tobacco Use Smoking Status: Light Smoker (<10/day) Tobacco Use: Pipe Assessment/Plan All Active Problems Intractable nausea and vomiting (Acute) FLORY (acute kidney injury) (Acute) Nonketotic hyperglycinemia (Resolved) Nausea (Acute) Abdominal pain (Acute) Hematochezia (Resolved) #1 acute kidney injury-etiology unknown, I feel the patient has baseline chronic kidney disease from his type 2 diabetes, I am unsure how much fluid he actually drinks at home. Patient's BMP will be rechecked tomorrow #2 uncontrolled nausea and vomiting-etiology unclear, resolved #3 generalized debility secondary to multiple medical problems including past history of closed head injury, PT and OT will see the patient, we will request insurance approval for placement in a senior living facility at least short-term #4 uncontrolled type 2 diabetes-again this may be secondary to lack of medical attention at home or noncompliance on the patient's part- continue to monitor blood sugars and give sliding scale insulin per protocol #5 diabetic neuropathy #6 major depression-continue Cymbalta #7 localized ileus-resolved #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
--- NOTE | 2018-04-09 17:07 | PN_ITS ---
Patient Problems: Active and Suspected Problems Intractable nausea and vomiting (Acute) Subjective: Patient seen and examined today, he is less nauseous today, he requested that nursing allow him up to take a shower but nursing felt that he was too unstable to risk his falling in the shower. - Physical Exam General: Alert, Oriented x3, Cooperative, No apparent distress, Well developed HEENT: Atraumatic, PERRLA, EOMI, Normocephalic Oral: Moist Mucosa Neck: Supple, No Nuchal Rigidity, Trachea Midline, Thyroid Normal Size and Texture Lungs: Clear to auscultation, Normal air movement, No rhonchi, No wheeze, No rales Cardiovascular: Regular rate, Regular Rhythm, Normal S1, Normal S2, No murmurs, No Ectopic Activity, PMI Normal, No rub noted, No Gallop Abdomen: Bowel Sounds Present, Soft, Non Tender, Non-Distended, No hernias noted Extremities: No clubbing, No cyanosis, No edema, Capillary Refill Less than 3 S econds Skin: No rashes, No breakdown Musculoskeletal: No Tenderness to Palpation of Joints or Extremities Neurological: Cranial nerves II-XII grossly intact, Neuro grossly intact Psych/Mental Status: Normal Affect, Appropriate, Alert and oriented to time, place, person, mood and affect Vital Signs Temp Pulse Resp BP Pulse Ox 98.1 F 64 18 120/70 97 04/09/18 14:00 04/09/18 14:00 04/09/18 14:00 04/09/18 14:00 04/09/18 14:00 Oxygen Delivery Method Room Air Weight: 90 kg Body Mass Index (BMI) 29.2 Finger Stick Blood Glucose 153 Intake and Output for Last 24 Hours 04/07/18 04/08/18 04/09/18 23:59 23:59 23:59 Intake Total 2059 / 2059 1575 / 1575 1220 / 1220 Output Total 1400 / 1400 850 / 850 750 / 750 Balance 659 / 659 725 / 725 470 / 470 POC Glucose 04/09/18 04/09/18 04/09/18 16:29 11:50 10:07 POC Glucose 140 H 273 H 214 H 04/09/18 04/09/18 04/08/18 05:56 00:30 21:37 POC Glucose 96 165 H 135 H 04/08/18 17:25 POC Glucose 159 H Medical Necessity - Tobacco Use Smoking Status: Light Smoker (<10/day) Tobacco Use: Pipe Assessment/Plan All Active Problems Intractable nausea and vomiting (Acute) FLORY (acute kidney injury) (Acute) Nonketotic hyperglycinemia (Resolved) Nausea (Acute) Abdominal pain (Acute) Hematochezia (Resolved) #1 acute kidney injury-etiology unknown, I feel the patient has baseline chronic kidney disease from his type 2 diabetes, I am unsure how much fluid he actually drinks at home. Patient's BMP will be rechecked tomorrow #2 uncontrolled nausea and vomiting-etiology unclear, resolved #3 generalized debility secondary to multiple medical problems including past history of closed head injury, PT and OT will see the patient, we will request insurance approval for placement in a custodial facility at least short- term #4 uncontrolled type 2 diabetes-again this may be secondary to lack of medical attention at home or noncompliance on the patient's part- continue to monitor blood sugars and give sliding scale insulin per protocol #5 diabetic neuropathy #6 major depression-continue Cymbalta #7 localized ileus-resolved #8 degenerative joint disease of the lumbar spine Code Visit OBSV E&M: 86083 Subsequent observation care L3
[2018-04-09 22:06] LABS: Bedside Glucose 102 mg/dL (70-110)
[2018-04-10 01:50] VITALS: BP 148/75; PULSE 56; RESP 14; TEMP 36.8; O2SAT 96
[2018-04-10 06:29] LABS: Anion Gap 7 (5-15); BUN 26 mg/dL (7-18); BUN/Creat Ratio 18.3 RATIO (10-20); Calcium,Total 8.5 mg/dL (8.5-10.1); Chloride 100 mmol/L (98-107); Creatinine, Serum 1.42 mg/dL (0.70-1.30); EST Glomerular Filtration Rate 54 mL/min (>60); Est Glom Filt Rate - Afr Amer 66 mL/min (>60); Estimated Creatinine Clearance 56.01 ml/min; Glucose 101 mg/dL (74-106); Potassium 3.4 mmol/L (3.5-5.1); Sodium Level 138 mmol/L (136-145)
[2018-04-10] MEDS: Heparin Injection (Vial) 5,000 UNIT/ML VIAL 5000 UNIT SC (06:29)
[2018-04-10] MEDS: 0.9% NaCl Peripheral Flush Adult/Peds IV (06:32)
[2018-04-10 06:56] LABS: Bedside Glucose 99 mg/dL (70-110)
[2018-04-10 07:58] VITALS: PULSE 76
[2018-04-10] MEDS: Metoprolol Tartrate 50 MG Tablet PO (07:58)
[2018-04-10] MEDS: DULoxetine Hcl 30 MG Capsule 60 MG PO (07:59)
[2018-04-10] MEDS: Fenofibrate 48 MG Tablet PO (07:59)
[2018-04-10 08:00] VITALS: BP 135/80; PULSE 76; RESP 18; TEMP 37.1; O2SAT 94
[2018-04-10] MEDS: Pregabalin 50 MG Capsule 100 MG PO (08:02)
[2018-04-10] MEDS: Insulin Lispro 100 UNIT/ML INSULN.PEN SQ (11:38)
--- NOTE | 2018-04-10 11:44 | DCINST_ITS ---
- Discharge Diagnoses Current Active Problems: Current Active and Chronic Problems Intractable nausea and vomiting (Acute) You will use the following diet at home:: Calorie/Carbohydrate Controlled (specify 1200, 1400, etc) - 1800 glen Your food should be the consistency of: Regular Your liquids should be the consistency of: Regular/Thin Discharge Activity: Return to Normal Activity Weight Bearing Status: Full weight bearing - with walker Allergies/Adverse Reactions: Allergies nifedipine [From Adalat] Allergy (Verified 04/06/18 19:59) Unknown Medications to take at Discharge Omeprazole [Prilosec] 40 mg PO DAILY 05/08/14 Fenofibrate [Tricor] 48 mg PO DAILY 08/04/16 Insulin Aspart [Novolog Flexpen] See Protocol SQ TIDCM 08/04/16 Diazepam [Valium] 5 mg PO BID PRN PRN 04/06/18 Pregabalin [Lyrica] 100 mg PO BID 04/06/18 Metoprolol Tartrate [Lopressor (beta basilio)] 50 mg PO BID 04/07/18 Duloxetine Hcl [Cymbalta] 60 mg PO DAILY #30 capsule. 04/10/18 Insulin Glargine,Hum.rec.anlog [Toujeo Solostar] 20 unit SQ BID #1 ml 04/10/18 Lisinopril [Zestril] 20 mg PO DAILY #1 tablet 04/10/18 The following prescriptions were given: Duloxetine Hcl [Cymbalta] 60 mg PO DAILY #30 capsule. Lisinopril [Zestril] 20 mg PO DAILY #1 tablet Insulin Glargine,Hum.rec.anlog [Toujeo Solostar] 20 unit SQ BID #1 ml Primary Care Physician: Chema Mckoen DO [Primary Care Provider] - Please follow up with your Primary Care Physician in: in 7-10 days Test Results: Test results from this visit will be discussed in further detail at your follow- up appointment, if applicable.
[2018-04-10 11:56] LABS: Bedside Glucose 304 mg/dL (70-110)
[2018-04-10 14:05] VITALS: BP 121/72; PULSE 65; RESP 18; TEMP 36.8; O2SAT 99
--- NOTE | 2018-04-10 19:08 | DS.PCM_ITS ---
Discharge Date and Diagnosis Date of Admission: 04/07/18 Date of Discharge: 04/10/18 - Primary Discharge Diagnosis #1 acute kidney injury-on a backdrop of chronic kidney disease stage III secondary to type 2 diabetes-secondary to uncontrolled vomiting from viral gastroenteritis #2 uncontrolled nausea and vomiting- secondary to viral gastroenteritis #3 leukocytosis-secondary to viral gastroenteritis #4 generalized debility secondary to multiple medical problems including past history of closed head injury #5 uncontrolled type 2 diabetes #6 diabetic neuropathy #7 major depression #8 localized ileus of the small intestine #9 degenerative joint disease of the lumbar spine - Secondary Discharge Diagnosis Chronic Problems Noncompliance with diabetes treatment (Chronic) Back pain (Chronic) HTN (hypertension) (Chronic) Anxiety (Chronic) Depression (Chronic) History of lumbar fusion (Chronic) Diabetes mellitus (Chronic) Hospital Course and Treatment Operations: None Procedures: None Summary of Care Provided: The patient is a 57 year old M seen in the emergency room at [facility] with a chief complaint of vomiting and abdominal pain. Workup in the ER included a CBC which showed an elevated white blood cell count, chemistry profile revealed a sodium of 126, BUN of 61, creatinine of 2.2, liver profile showed a bilirubin of 1.2, alkaline phosphatase is 164, she had a CT of the abdomen and pelvis performed without contrast which showed a localized ileus of the small bowel. CT of the brain was performed due to a history from the patient of her recent fall at home. 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 Right ethmoid sinusitis and right sphenoid sinusitis was also noted to be present although patient had no clinical signs of sinusitis. Patient was placed in observation status on MedSurg 2, he was given IV fluids and antiemetics, he was seen by PT and OT. Patient expressed a wish to be admitted to a retirement facility at the time of discharge from the hospital for short-term rehab. Patient also appeared to be depressed during his hospital stay and was started on antidepressants. On 04/10/18, patient was seen and examined: On examination he appeared in good health and spirits. Vital signs as documented. Skin warm and dry and without overt rashes. Neck without JVD. Lungs clear. Heart exam notable for regular rhythm, normal sounds and absence of murmurs, rubs or gallops. Abdomen unremarkable and without evidence of organomegaly, masses, or abdominal aortic enlargement. Extremities nonedematous. Psych: Patient is alert and oriented x3 and does not appear depressed or anxious. On 04/10/18, the patient had a discussion with me and decided that he would go home with his rather than go to an extended care facility for short-term rehab. Patient was appropriate and he felt that he was doing better and that he could go home with his . His did not object to this. On 04/10/18, patient was discharged home in stable condition, arrangements will be made for outpatient physical therapy. - Physical Exam Vital Signs Temp Pulse Resp BP Pulse Ox 98.3 F 65 18 121/72 H 99 04/10/18 14:05 04/10/18 14:05 04/10/18 14:05 04/10/18 14:05 04/10/18 14:05 Oxygen Delivery Method Room Air Weight: 90 kg Body Mass Index (BMI) 29.2 Finger Stick Blood Glucose 153 Intake and Output for Last 24 Hours 04/08/18 04/09/18 04/10/18 23:59 23:59 23:59 Intake Total 1575 / 1575 1460 / 1460 1000 / 1000 Output Total 850 / 850 750 / 750 Balance 725 / 725 710 / 710 1000 / 1000 Laboratory Tests Past 24 Hrs 04/10/18 05:53 Sodium 138 Potassium 3.4 L Chloride 100 Carbon Dioxide 31.0 Anion Gap 7 BUN 26 H Creatinine 1.42 H Estim Creat Clear Calc 56.01 Est GFR (MDRD) Af Amer 66 Est GFR (MDRD) Non-Af 54 L BUN/Creatinine Ratio 18.3 Glucose 101 Calcium 8.5 POC Glucose 04/10/18 04/10/18 04/09/18 11:37 06:49 21:54 POC Glucose 304 H 99 102 Discharge Activity: Return to Normal Activity Weight Bearing Status: Full weight bearing - with walker Home Medications: Medications to take at Discharge Omeprazole [Prilosec] 40 mg PO DAILY 05/08/14 Fenofibrate [Tricor] 48 mg PO DAILY 08/04/16 Insulin Aspart [Novolog Flexpen] See Protocol SQ TIDCM 08/04/16 Diazepam [Valium] 5 mg PO BID PRN PRN 04/06/18 Pregabalin [Lyrica] 100 mg PO BID 12/26/18 Metoprolol Tartrate [Lopressor (beta basilio)] 50 mg PO BID 04/07/18 Duloxetine Hcl [Cymbalta] 60 mg PO DAILY #30 capsule. 04/10/18 Insulin Glargine,Hum.rec.anlog [Toujeo Solostar] 20 unit SQ BID #1 ml 04/10/18 Lisinopril [Zestril] 20 mg PO DAILY #1 tablet 04/10/18 Following Prescrptions Were Given to Patient: Duloxetine Hcl [Cymbalta] 60 mg PO DAILY #30 capsule. Lisinopril [Zestril] 20 mg PO DAILY #1 tablet Insulin Glargine,Hum.rec.anlog [Toujeo Solostar] 20 unit SQ BID #1 ml Primary Care Physician: Chema Mckeon DO [Primary Care Provider] - Please follow up with your Primary Care Physician in: in 7-10 days Disposition: Home with Home Health Minutes spent on discharge:: 30 Patient Condition:: Stable Medical Necessity - Tobacco Use Smoking Status: Light Smoker (<10/day) Tobacco Use: Pipe Meaningful Use Info Meaningful Use Diagnoses (Choose all that apply): None applicable Code Visit OBSV E&M: 73695 Observation care discharge
--- NOTE | 2018-04-11 10:00 | CASEMGMT ---
STEPHANIE LEMON NOTE. Message received that pt's , Karen, had some questions re: PT/OT, HHC, and behavioral health follow-up for home. Call placed to Karen at this time. Karen states pt has been doing well since he returned home, stating that when he was discharged yesterday he even felt well enough to stop by to visit a friend on his way home. Karen states Mr Munoz slept well last night and using walker well. Discussed HHC: PT/OT with Karen. Karen states they are interested in pt receiving therapy through HHC. Karen instructed to make appt with PCP and to discuss HHC with PCP so arrangements can be made through them. Also informed Karen she can talk to PCP about counseling services as well. Discharge instructions stated to follow-up with PCP in 7-10 days but STEPHANIE LEMON informed Karen that she can call in to make appt sooner than this. Karen voiced understanding and appreciation of call. Karen states she has no further questions about discharge instructions and no other concerns at this time. Gordy HARPER RN CM
--- NOTE | 2018-04-11 10:08 | CASEMGMT ---
Social Work Note Per notes, pt was discharged home on 04/10/2018. SW placed a call to Addis at [facility] and left her a message informing her of this. Sumaya Irby UTILIZATION REVIEW NURSE, AIRCRAFT CLEANING SUPERVISOR
== END 2018-04-10 14:29 | disposition home health service (06) ==
LOC: ED 04-07 00:49 → MS2 04-07 01:32
PROVIDERS: Internal Medicine; Admitting Provider Hospitalist; Emergency Provider Emergency Medicine; Family Provider Family Medicine; PCP Family Medicine; Visit Provider Internal Medicine
DX: A08.4 Viral intestinal infection, unspecified (principal); I12.9 Hypertensive chronic kidney disease with stage 1 through stage 4 chronic kidney disease, or unspecified chronic kidney disease; E11.22 Type 2 diabetes mellitus with diabetic chronic kidney disease; E11.65 Type 2 diabetes mellitus with hyperglycemia; N18.3 Chronic kidney disease, stage 3 (moderate); N17.9 Acute kidney failure, unspecified; E11.40 Type 2 diabetes mellitus with diabetic neuropathy, unspecified; M47.896 Other spondylosis, lumbar region; F17.290 Nicotine dependence, other tobacco product, uncomplicated; F41.9 Anxiety disorder, unspecified; F32.9 Major depressive disorder, single episode, unspecified; E86.0 Dehydration; E87.1 Hypo-osmolality and hyponatremia; K21.9 Gastro-esophageal reflux disease without esophagitis; K56.7 Ileus, unspecified; Z79.899 Other long term (current) drug therapy; Z79.4 Long term (current) use of insulin; Z87.820 Personal history of traumatic brain injury; Z91.19 Patient's noncompliance with other medical treatment and regimen
CPT/HCPCS: 36415; 70450; 74176; 80048; 80076; 81001; 82962; 83036; 83690; 85025; 96361; 96365; 96366; 96372; 96375; 96376; 97110; 97162; 97166; 97530; 97802; 99218; 99282; J7030; J7120; A4216; G0378; J2405

== ENCOUNTER 2018-04-12 20:39 | Observation (INO) | payer OTHER, MEDICARE, SELFPAY ==
[2018-04-07 02:02] VITALS: BMI 29.2
[2018-04-12 20:40] VITALS: BP 124/87; PULSE 61; RESP 18; TEMP 36.4; O2SAT 97; BMI 32.3
--- NOTE | 2018-04-12 20:42 | EKG12_ITS ---
Test Reason : Blood Pressure : / mmHG Vent. Rate : 054 BPM Atrial Rate : 054 BPM P-R Int : 162 ms QRS Dur : 100 ms QT Int : 462 ms P-R-T Axes : 021 053 057 degrees QTc Int : 438 ms Sinus bradycardia Otherwise normal ECG Confirmed by CLIF TINEO, LEONIE ([id number]), general expeditor LINDSAY ABBASI ([id number]) on 04/14/2018 1:56:26 PM Referred By: KEESHA Confirmed By:LEONIE MENEZES MD
[2018-04-12 21:05] LABS: Bedside Glucose 122 mg/dL (70-110)
[2018-04-12] MEDS: 0.9% Normal Saline 1,000 ML 1000 ML IV (21:09)
[2018-04-12 21:10] LABS: Absolute Neutrophil Count 5.6 X10^3/uL (2.0-7.7); Basophil# 0.04 X10^3/uL; Basophil% 0.5 % (0-1); Eosinophil# 0.29 X10^3/uL; Eosinophils% 3.3 % (0-5); Hematocrit 39.1 % (40-54); Hemoglobin 13.4 g/dl (13.0-16.5); Lymphocyte % 21.5 % (19-41); Mean Corp Hgb Conc 34.3 g/gl (32-36); Mean Corpuscular Hgb 29.9 pg (27.0-32.0); Mean Corpuscular Volume 87.3 fL (80-94); Mean Platelet Vol. 12.4 fl (6.2-12.0); Monocyte# 0.84 X10^3/uL; Monocyte% 9.5 % (0-10); Neutrophil # 5.57 X10^3/uL (2.7-7.7); Neutrophil % 62.9 % (47-70); POSITIVE COUNT YES; POSITIVE DIFFERENTIAL NO; POSITIVE MORPHOLOGY YES; Platelet Count 169 K/mm3 (150-450); RBC Distribution Width CV 12.9 % (11.6-14.6); RBC Distribution Width SD 40.2 fl (35.1-43.9); Red Blood Count 4.48 M/mm3 (4.6-6.2); White Blood Count 8.8 K/mm3 (4.4-11.0)
--- NOTE | 2018-04-12 21:14 | RAD_ITS ---
STUDY: X-RAY CHEST REASON FOR EXAM: Male, 57 years old. Hypoglycemia. Slurred speech. Hypotension. TECHNIQUE: Single AP portable view of the chest. COMPARISON: Acute abdominal series with chest, July 11, 2014. FINDINGS: Telemetry wires overlie the chest. The lungs are clear and expanded. There is no demonstrated pleural abnormality. Normal size heart. Normal mediastinum and ella. Normal visualized pulmonary arteries. There is atherosclerotic calcification of the aortic arch with tortuosity. The thoracic spine is obscured by the mediastinum. Normal visualized ribs, clavicles, and shoulders. There is no demonstrated abnormality of the visualized soft tissue structures of the upper abdomen. RAD/Chest 1 View (Portable) IMPRESSION: No acute cardiopulmonary disease or interval change. Electronically Signed: Louie Worley DO at 22:12 EST Tel [phone], Service support ,
[2018-04-12 21:16] VITALS: BP 111/62; BP 113/56; BP 136/110; PULSE 54; PULSE 55
[2018-04-12 21:23] LABS: AST(SGOT) 10 U/L (15-37); Alanine Aminotransfer ALT/SGPT 23 U/L (16-61); Albumin, Serum 2.8 g/dL (3.2-5.0); Alkaline Phosphatase 102 U/L (45-117); Anion Gap 10 (5-15); BUN 35 mg/dL (7-18); BUN/Creat Ratio 13.5 RATIO (10-20); Calcium,Total 8.5 mg/dL (8.5-10.1); Chloride 100 mmol/L (98-107); Creatinine, Serum 2.59 mg/dL (0.70-1.30); EST Glomerular Filtration Rate 27 mL/min (>60); Est Glom Filt Rate - Afr Amer 33 mL/min (>60); Estimated Creatinine Clearance 30.71 ml/min; Globulin 2.9 g/dL (2.2-4.2); Glucose 95 mg/dL (74-106); Lipase 168 U/L (73-393); Potassium 3.7 mmol/L (3.5-5.1); Protein, Total 5.7 g/dL (6.4-8.2); Sodium Level 139 mmol/L (136-145)
--- NOTE | 2018-04-12 22:05 | ED.DCSUM_ITS ---
- ER Visit Summary Date of Service: 04/12/18 Chief Complaint: Syncope History of Present Illness: The patient is a 57 M presents to the emergency department after syncopal event. The patient was recently hospitalized for dehydration and acute kidney injury. He had his blood pressure medications changed. He also had his insulin regimen changed. He states that he has been out of the hospital for 2 days. He states he is active and feeling well. He was in his normal state of health and was talking to a friend. He then passed out. He was not prodromal. He was not feeling lightheaded. He states prior to passing out, his blood sugar was around 300 and took his insulin. On squad arrival, the patient was obtunded, but was able to speak. He they did take his blood pressure and it was normal. His blood sugar was 84. The patient states that he will have big swings of his blood pressure and will be symptomatic. He denies any chest pain or shortness of breath. Physical Examination: Vital signs reviewed General: Well-nourished, well-developed Head: Normocephalic, atraumatic Eyes: Pupils equal and reactive, extraocular muscles intact Neck, supple, no lymphadenopathy Heart: Regular rate and rhythm Respiratory: No distress, clear bilaterally Abdomen: Soft, nontender, nondistended, no peritoneal signs Back: Nontender Extremities: Nontender, no edema, no cords Skin: Normal color no rash Neuro: Alert and oriented, no focal or lateralizing deficits Test Results: [] Emergency Department Course and Treatment: The patient presents after syncopal episode. He had some recent titration of his medications. EKG was obtained on patient arrival. There is no evidence of acute ischemic change. His axis and intervals were normal. He was mildly bradycardic. IV was established. Patient was given fluids. I did obtain orthostatic vitals which are unremarkable. Screening labs do show acute kidney injury which was definitely worse than when he was discharged. Chest x-ray shows no acute abnormalities. I am concerned because the patient had syncopal episode with no prodrome. He is mildly bradycardic, but has had no chest pain. He also has evidence of acute kidney injury. This may be secondary to his blood glucose swings, but the patient has not had a recent echo. I do feel that he would benefit from observation for syncope workup. Treatment Plan: [] Disposition: Admit Impression: 1. Syncope 2. Acute kidney injury This note was generated with [employer] ([employer]) dictation software. It may contain incorrect words, spelling, and punctuation that were not noted in review of the chart prior to signing ED Disposition - Plan for ED Patient: Chief Complaint: Hypoglycemia Referrals: Chema Mckeon DO [Primary Care Provider] -
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
[2018-04-12 22:39] VITALS: BP 112/78; PULSE 55; RESP 18; O2SAT 100
[2018-04-12 23:05] VITALS: PULSE 54
--- NOTE | 2018-04-12 23:11 | ECHOD_ITS ---
Reason For Study: Syncope/Near Syncope Procedure This was a 2D Doppler, Color Flow transthoracic echocardiogram. Exam performed portable in patient room. Left Ventricle Normal LV size. Apical false tendon noted. Left ventricular systolic function is normal. The estimated ejection fraction is 65 %. Transmitral doppler flow suggestive of impaired relaxation of left ventricle. No regional wall motion abnormalities noted. Right Ventricle Normal RV size. Normal systolic function. Atria The left atrium is mildly enlarged. Normal right atrium. No doppler evidence for ASD. Mitral Valve There is no mitral annular calcification. Normal mitral valve. Trivial mitral valve insufficiency. Tricuspid Valve Normal tricuspid valve. Trivial tricuspid valve insufficiency. Aortic Valve Trisinus/trileaflet aortic valve. Normal aortic valve. Pulmonic Valve The pulmonic valve is not well visualized. Great Vessels Normal sized aortic root. Pericardium/Pleural No pericardial effusion. MMode/2D Measurements & Calculations LVIDd: 5.3 cm IVSd: 1.1 cm Ao root diam: 3.7 cm LVIDs: 2.7 cm LVPWd: 0.95 cm LA dimension: 3.7 cm RVDd: 2.8 cm FS: 49.7 % LAV(MOD-bp): 57.1 ml LA A4 area: 21.2 cm2 RA A4 area: 11.5 cm2 LAV(MOD-bp) Indexed: 27.1 ml/m2 LAV(MOD-sp2): 48.7 ml LAV(MOD-sp4): 65.1 ml Time Measurements MV dec time: 0.19 sec Doppler Measurements & Calculations MV E max kulwinder: 74.5 cm/sec Med Peak E' Kulwinder: 6.3 cm/sec MV V2 max: 102.7 cm/sec MV A max kulwinder: 84.3 cm/sec E/E' med: 11.9 MV max P.2 mmHg MV E/A: 0.88 MV V2 mean: 45.1 cm/sec MV mean P.0 mmHg MV V2 VTI: 30.2 cm MV P1/2t max kulwinder: 84.6 cm/sec Ao V2 max: 138.6 cm/sec LV V1 max: 126.0 cm/sec MV P1/2t: 65.2 msec Ao max P.7 mmHg LV V1 max P.4 mmHg MV dec slope: 379.6 cm/sec2 Ao V2 mean: 86.4 cm/sec LV V1 mean P.7 mmHg MVA(P1/2t): 3.4 cm2 Ao mean P.4 mmHg LV V1 mean: 74.3 cm/sec Ao V2 VTI: 25.8 cm LV V1 VTI: 28.1 cm PA V2 max: 96.3 cm/sec Interpretation Summary Left ventricular systolic function is normal. The estimated ejection fraction is 65 %. Apical false tendon noted. The left atrium is mildly enlarged. Trivial mitral valve insufficiency. Trivial tricuspid valve insufficiency. Transmitral doppler flow suggestive of impaired relaxation of left ventricle Ordering Physician: Juan M Gasca Referring Physician: Chema Mckeon Performed By: Kamlesh Mcginnis RCS
[2018-04-12 23:19] VITALS: BP 118/56; PULSE 55; RESP 16; TEMP 36.4; O2SAT 98
[2018-04-12 23:32] VITALS: BMI 31.1
[2018-04-12 23:38] VITALS: BMI 32.2
[2018-04-12 23:56] LABS: Bedside Glucose 104 mg/dL (70-110)
[2018-04-13] VITALS (14 sets, daily range): BP systolic 97–185; BP diastolic 50–95; PULSE 49–62; RESP 16–18; TEMP 36.6–36.8; O2SAT 93–98
[2018-04-13] MEDS: 0.9% Normal Saline 1,000 ML 100 ML IV ×2 (00:28→10:21)
[2018-04-13 04:16] LABS: Bedside Glucose 141 mg/dL (70-110)
[2018-04-13] MEDS: Heparin Injection (Vial) 5,000 UNIT/ML VIAL 5000 UNIT SC ×3 (05:32→21:49)
[2018-04-13 07:10] LABS: Bedside Glucose 173 mg/dL (70-110)
[2018-04-13 08:35] LABS: Anion Gap 7 (5-15); BUN 31 mg/dL (7-18); BUN/Creat Ratio 16.3 RATIO (10-20); Calcium,Total 7.7 mg/dL (8.5-10.1); Chloride 103 mmol/L (98-107); EST Glomerular Filtration Rate 39 mL/min (>60); Est Glom Filt Rate - Afr Amer 47 mL/min (>60); Estimated Creatinine Clearance 41.86 ml/min; Glucose 158 mg/dL (74-106); Potassium 3.8 mmol/L (3.5-5.1); Sodium Level 138 mmol/L (136-145)
[2018-04-13] MEDS: Insulin Lispro 100 UNIT/ML INSULN.PEN SQ ×4 (08:35→21:49)
[2018-04-13] MEDS: Pregabalin 50 MG Capsule 100 MG PO ×2 (10:22→21:54)
[2018-04-13] MEDS: cloNIDine HCl 0.1 MG Tablet PO ×2 (10:23→21:49)
[2018-04-13] MEDS: Pantoprazole Sodium 40 MG Tablet PO (10:23)
[2018-04-13] MEDS: DULoxetine Hcl 60 MG Capsule PO (10:24)
[2018-04-13] MEDS: Metoprolol Tartrate 25 MG Tablet 12.5 MG PO (10:31)
--- NOTE | 2018-04-13 10:59 | CASEMGMT ---
Social Work PCU Reason for intervention: Call to patient's home today ([phone]) as follow up to patient's observation admission last week. This job specification writer the last social insurance specialist to meet with patient and family, noted that patient's discharge plan was not as planned to the SNF. As this job specification writer aware of family concerns for this patient, wanted to follow up to ensure that patient and family aware of resources/understands where to turn, especially for mental health follow up, as well as to see what assistance may be needed in getting therapies arranged for patient. Summary: Karen answered the phone and stated patient is back in the hospital as patient passed out at home. Karen reports no therapies had been arranged for patient and that once home was directed to call PCP to have therapies arranged. Discussed current situation and needs. From 's perspective regarding aftercare needs: agreeable for patient to go to SNF if covered by insurance, preference would be once again [facility]. The obstacle is that reports she and patient are unable to even afford the SNF copays through [employer]. (patient does have Medicare A, but unable to tap into this benefit presently due to lack of qualifying patient stay). Inquired whether the Medicaid application was completed, as this job specification writer and another social insurance specialist gave family members said application. Karen reports to have the application filled out but doesn't know where to fax it. Directed Karen to bring to hospital and hospital social insurance specialist can fax to S directly. Should HHC be needed instead (or if SNF is needed and can't get insurance coverage) there is no preference for HHC per . Mentioned to that some HHC do have a behavioral health component, to which the reports would be fine too if indicated and available. expresses desire, and mentions that daughter also desires, for patient to have some mental health referrals. reports that a couple of months ago patient was mean at home, going for days without talking to the and not wanting to take medicine. reports the patient's mood has suddenly shifted to talkative, loving, kind, willing to take medicine. report to like the shift in patient's mood, but that is worried that the change has occurred so suddenly. In addition to 's reports today, during last admission the daughter expressed concern for patient's emotional health and that this may be impacting patient's overall physical health. Inquired to the whether patient has ever been diagnosed with Bipolar disorder. reports patient has never been diagnosed with anything, just started on Cymbalta during last admission. denies that patient has made any threats of harm to self or to others. When asked, reports patient has a gun at home, but that patient has never fired it and it stays under the bed; again denies that patient has ever voiced thoughts of harm to self or others; no past attempts at harm to self or others either. (Behavioral Health was consulted last admission and recommendation for mental health follow up at the senior care. Per this job specification writer's conversation with Varinder in , patient was given a list of resources for outpatient mental health counseling in the community as well). asks about meals on wheels if patient goes home. works 5 days a week and reports would feel better knowing patient was eating lunch each day. Provided with the number to meals on wheels. states to feel comfortable making self referral for patient. Handoff message to MARY Aguilar on PCU, regarding conversation with the today. Home with HHC versus short term SNF placement, will need to fax Medicaid application, if goes home may benefit from a HHC that has a behavioral health component, and if not then a referral to an outpatient counseling agency (of course if patient agrees). Plan: Social work remains available to assist as needed and/or indicated. Discharge needs pending at this time. -ARLYN Headley, JOURNEYMAN GLAZIER
[2018-04-13 11:51] LABS: Bedside Glucose 191 mg/dL (70-110)
[2018-04-13 13:14] LABS: Pathologist Review Reviewed
--- NOTE | 2018-04-13 14:08 | PCM.PROGNOTE ---
<Hola Damon - Last Filed: 04/13/18 14:08> Patient Problems: Active and Suspected Problems Syncope (Acute) Subjective: Patient is resting comfortably in bed no acute distress. He does continue to complain of lightheaded sensation when sitting up. His orthos were positive this morning. Is no shortness of breath, chest pain, palpitations. He was recently here at the hospital and was recommended to go to snf at discharge however he insisted on going home. He is still reluctant to consider this at this point. - Physical Exam General: Alert, Oriented x3, Cooperative HEENT: Atraumatic, PERRLA, EOMI, Normocephalic Neck: Supple, No JVD, Negative Carotid Bruits Lungs: Clear to auscultation, Normal air movement Cardiovascular: Regular rate, No murmurs Abdomen: Bowel Sounds Present, Soft, Non Tender Extremities: No edema, Capillary Refill Less than 3 Seconds Skin: No rashes, No breakdown Musculoskeletal: No Tenderness to Palpation of Joints or Extremities Neurological: Cranial nerves II-XII grossly intact Psych/Mental Status: Normal Affect, Appropriate, Alert and oriented to time, place, person, mood and affect Vital Signs Temp Pulse Resp BP Pulse Ox 98.3 F 60 18 149/77 H 97 04/13/18 09:30 04/13/18 11:00 04/13/18 09:30 04/13/18 09:30 04/13/18 09:30 Oxygen Delivery Method Room Air Weight: 210 lb 15.718 oz Body Mass Index (BMI) 31.1 Finger Stick Blood Glucose 122 Orthostatic Vital Signs Start: 04/13/18 05:34 Freq: q24h Status: Active Protocol: Activity Type Activity Date Activity User E-Sign Co-Sign Detail Recorded Client Recorded Date Recorded By Document 04/13/18 05:34 BAM [id number] 04/13/18 05:37 BAM 04/13/18 05:34 Orthostatic Vitals Standing -Blood Pressure (90/60-120/80) 97/50 L -Extremity Use Left Arm -Pulse Rate (60-100) 62 Sitting -Blood Pressure (90/60-120/80) 116/63 -Extremity Use Left Arm -Pulse Rate (60-100) 57 L Lying -Blood Pressure (90/60-120/80) 136/80 H -Extremity Use Left Arm -Pulse Rate (60-100) 58 L Intake and Output for Last 24 Hours 04/11/18 04/12/18 04/13/18 23:59 23:59 23:59 Intake Total 1540 / 1540 Balance 1540 / 1540 Laboratory Tests Past 24 Hrs 04/12/18 04/12/18 04/13/18 21:00 21:00 07:17 WBC 8.8 RBC 4.48 L Hgb 13.4 Hct 39.1 L MCV 87.3 MCH 29.9 MCHC 34.3 RDW 12.9 RDW Differential 40.2 Plt Count 169 MPV 12.4 H Immature Gran % (Auto) 2.300 H Neut % (Auto) 62.9 Lymph % (Auto) 21.5 [place] % (Auto) 9.5 Eos % (Auto) 3.3 Baso % (Auto) 0.5 Absolute Neuts (auto) 5.6 Absolute Lymphs (auto) 1.90 Total Counted Not Reportable Diff Path Review Reviewed Sodium 139 138 Potassium 3.7 3.8 Chloride 100 103 Carbon Dioxide 29.0 28.0 Anion Gap 10 7 BUN 35 H 31 H Creatinine 2.59 H 1.90 H Estim Creat Clear Calc 30.71 41.86 Est GFR (MDRD) Af Amer 33 L 47 L Est GFR (MDRD) Non-Af 27 L 39 L BUN/Creatinine Ratio 13.5 16.3 Glucose 95 158 H Calcium 8.5 7.7 L Total Bilirubin 0.60 AST 10 L ALT 23 Alkaline Phosphatase 102 Troponin I < 0.015 Total Protein 5.7 L Albumin 2.8 L Globulin 2.9 Albumin/Globulin Ratio 1.0 Lipase 168 POC Glucose 04/13/18 04/13/18 04/13/18 11:43 07:04 04:13 POC Glucose 191 H 173 H 141 H 04/12/18 04/12/18 23:51 20:59 POC Glucose 104 122 H Medical Necessity - Tobacco Use Smoking Status: Current every day smoker Tobacco Use: Pipe Assessment/Plan All Active Problems Syncope (Acute) Intractable nausea and vomiting (Resolved) FLORY (acute kidney injury) (Acute) Nonketotic hyperglycinemia (Resolved) Nausea (Resolved) Abdominal pain (Resolved) Hematochezia (Resolved) 1. Syncope-mild bradycardia, positive for orthostatic hypotension. Also component of dehydration as his BUN and creatinine have worsened since his last admission. He was previously here with ileus, diarrhea, AK I. Will continue IV fluids and monitor his orthostatic vitals. Cardiology will also be consulted. Echocardiogram shows an EF of 65%, impaired relaxation, no ASD, apical Folstein is noted. No events on telemetry. Opponent is negative. 2. FLORY - continue IV fluids. recent FLORY. Likely dehydrated. 3. Hypertension-metoprolol was decreased, Catapres continued. 4. Type 2 diabetes mellitus-continue current therapy plus sliding scale 5. Depression-continue Cymbalta 6. Debility-previously refused snf, will continue PT OT and patient may end up needing to go to skilled as he failed being home after last admission. Discharge planning: As per #5 DVT prophylaxis: Heparin This patient was seen by Hola Damon PA-C under the supervision of Doctor Trinity. <Brandi Petersen - Last Filed: 04/13/18 16:12> - Physical Exam Vital Signs Temp Pulse Resp BP Pulse Ox 98.3 F 58 L 18 145/65 H 98 04/13/18 15:16 04/13/18 15:16 04/13/18 15:16 04/13/18 15:16 04/13/18 15:16 Oxygen Delivery Method Room Air Weight: 210 lb 15.718 oz Body Mass Index (BMI) 31.1 Finger Stick Blood Glucose 122 Orthostatic Vital Signs Start: 04/13/18 05:34 Freq: q24h Status: Active Protocol: Activity Type Activity Date Activity User E-Sign Co-Sign Detail Recorded Client Recorded Date Recorded By Document 04/13/18 05:34 [facility] [id number] 04/13/18 05:37 [facility] 04/13/18 05:34 Orthostatic Vitals Standing -Blood Pressure (90/60-120/80) 97/50 L -Extremity Use Left Arm -Pulse Rate (60-100) 62 Sitting -Blood Pressure (90/60-120/80) 116/63 -Extremity Use Left Arm -Pulse Rate (60-100) 57 L Lying -Blood Pressure (90/60-120/80) 136/80 H -Extremity Use Left Arm -Pulse Rate (60-100) 58 L Intake and Output for Last 24 Hours 04/11/18 04/12/18 04/13/18 23:59 23:59 23:59 Intake Total 1540 / 1540 Balance 1540 / 1540 Laboratory Tests Past 24 Hrs 04/12/18 04/12/18 04/13/18 21:00 21:00 07:17 WBC 8.8 RBC 4.48 L Hgb 13.4 Hct 39.1 L MCV 87.3 MCH 29.9 MCHC 34.3 RDW 12.9 RDW Differential 40.2 Plt Count 169 MPV 12.4 H Immature Gran % (Auto) 2.300 H Neut % (Auto) 62.9 Lymph % (Auto) 21.5 [place] % (Auto) 9.5 Eos % (Auto) 3.3 Baso % (Auto) 0.5 Absolute Neuts (auto) 5.6 Absolute Lymphs (auto) 1.90 Total Counted Not Reportable Diff Path Review Reviewed Sodium 139 138 Potassium 3.7 3.8 Chloride 100 103 Carbon Dioxide 29.0 28.0 Anion Gap 10 7 BUN 35 H 31 H Creatinine 2.59 H 1.90 H Estim Creat Clear Calc 30.71 41.86 Est GFR (MDRD) Af Amer 33 L 47 L Est GFR (MDRD) Non-Af 27 L 39 L BUN/Creatinine Ratio 13.5 16.3 Glucose 95 158 H Calcium 8.5 7.7 L Total Bilirubin 0.60 AST 10 L ALT 23 Alkaline Phosphatase 102 Troponin I < 0.015 Total Protein 5.7 L Albumin 2.8 L Globulin 2.9 Albumin/Globulin Ratio 1.0 Lipase 168 POC Glucose 04/13/18 04/13/18 04/13/18 11:43 07:04 04:13 POC Glucose 191 H 173 H 141 H 04/12/18 04/12/18 23:51 20:59 POC Glucose 104 122 H Assessment/Plan Patient seen by Hola Damon PA-C under my supervision Patient was admitted with a complaint of syncope. He was recently admitted and discharged about 2 days ago. He was admitted and managed for AK I at that time. He was discharged home after he refused to go to snf facility. He went home and said he suddenly passed out. It was witnessed by his and he states there was not any associated seizure-like symptoms no post syncopal drowsiness or incontinence. He is being hydrated with IV fluids after he was found to have AK I during this admission too. Patient seen and exmained. He had no complaints and felt well. He denied fever, chills, palpitations, dizziness, abdominal pain, diarrhea vomiting. Labs and vitals reviewed. Patient noted to be bradycardic. On examination Vital Signs Height 5 ft 9 in Weight: 210 lb 15.718 oz Weight in Pounds 211.0 lbs Pulse Ox 98 Temperature 98.3 F Pulse Rate [Standing] 62 Pulse Rate [Sitting] 57 Pulse Rate [Lying] 58 Pulse Rate 58 Respiratory Rate 18 Blood Pressure [Standing] 97/50 Blood Pressure [Sitting] 116/63 Blood Pressure [Lying] 136/80 Blood Pressure 145/65 Blood Pressure Position Supine General: Alert, Oriented x3, Cooperative HEENT: Atraumatic, PERRLA, EOMI, Normocephalic Neck: Supple, No JVD, Negative Carotid Bruits Lungs: Clear to auscultation, Normal air movement Cardiovascular: bradycadic, No murmurs Abdomen: Bowel Sounds Present, Soft, Non Tender Extremities: No edema, Capillary Refill Less than 3 Seconds Skin: No rashes, No breakdown Musculoskeletal: No Tenderness to Palpation of Joints or Extremities Neurological: Cranial nerves II-XII grossly intact Psych/Mental Status: Normal Affect, Appropriate, Alert and oriented to time, place, person, mood and affect Plan is to manage patient for syncope, likely due to orthostatic hypotension, and FLORY due to dehydration. Patient's orthostatics were active. Continue hydration with IV fluid. Metoprolol also DC'd as patient is noted to be bradycardic. Will consult cardiology for their input as patient says that he is been having these recurrent syncopal episodes at home. Agree with rest of above, assessment and plan and management as per Hola Damon PA-C-'s note. Code Visit OBSV E&M: 28220 Subsequent observation care L3
--- NOTE | 2018-04-13 14:13 | PN_ITS ---
<Hola Damon - Last Filed: 04/13/18 14:08> Patient Problems: Active and Suspected Problems Syncope (Acute) Subjective: Patient is resting comfortably in bed no acute distress. He does continue to complain of lightheaded sensation when sitting up. His orthos were positive this morning. Is no shortness of breath, chest pain, palpitations. He was recently here at the hospital and was recommended to go to [facility] at discharge however he insisted on going home. He is still reluctant to consider this at this point. - Physical Exam General: Alert, Oriented x3, Cooperative HEENT: Atraumatic, PERRLA, EOMI, Normocephalic Neck: Supple, No JVD, Negative Carotid Bruits Lungs: Clear to auscultation, Normal air movement Cardiovascular: Regular rate, No murmurs Abdomen: Bowel Sounds Present, Soft, Non Tender Extremities: No edema, Capillary Refill Less than 3 Seconds Skin: No rashes, No breakdown Musculoskeletal: No Tenderness to Palpation of Joints or Extremities Neurological: Cranial nerves II-XII grossly intact Psych/Mental Status: Normal Affect, Appropriate, Alert and oriented to time, place, person, mood and affect Vital Signs Temp Pulse Resp BP Pulse Ox 98.3 F 60 18 149/77 H 97 04/13/18 09:30 04/13/18 11:00 04/13/18 09:30 04/13/18 09:30 04/13/18 09:30 Oxygen Delivery Method Room Air Weight: 210 lb 15.718 oz Body Mass Index (BMI) 31.1 Finger Stick Blood Glucose 122 Orthostatic Vital Signs Start: 04/13/18 05:34 Freq: q24h Status: Active Protocol: Activity Type Activity Date Activity User E-Sign Co-Sign Detail Recorded Client Recorded Date Recorded By Document 04/13/18 05:34 BAM [id number] 04/13/18 05:37 BAM 04/13/18 05:34 Orthostatic Vitals Standing -Blood Pressure (90/60-120/80) 97/50 L -Extremity Use Left Arm -Pulse Rate (60-100) 62 Sitting -Blood Pressure (90/60-120/80) 116/63 -Extremity Use Left Arm -Pulse Rate (60-100) 57 L Lying -Blood Pressure (90/60-120/80) 136/80 H -Extremity Use Left Arm -Pulse Rate (60-100) 58 L Intake and Output for Last 24 Hours 04/11/18 04/12/18 04/13/18 23:59 23:59 23:59 Intake Total 1540 / 1540 Balance 1540 / 1540 Laboratory Tests Past 24 Hrs 04/12/18 04/12/18 04/13/18 21:00 21:00 07:17 WBC 8.8 RBC 4.48 L Hgb 13.4 Hct 39.1 L MCV 87.3 MCH 29.9 MCHC 34.3 RDW 12.9 RDW Differential 40.2 Plt Count 169 MPV 12.4 H Immature Gran % (Auto) 2.300 H Neut % (Auto) 62.9 Lymph % (Auto) 21.5 [place] % (Auto) 9.5 Eos % (Auto) 3.3 Baso % (Auto) 0.5 Absolute Neuts (auto) 5.6 Absolute Lymphs (auto) 1.90 Total Counted Not Reportable Diff Path Review Reviewed Sodium 139 138 Potassium 3.7 3.8 Chloride 100 103 Carbon Dioxide 29.0 28.0 Anion Gap 10 7 BUN 35 H 31 H Creatinine 2.59 H 1.90 H Estim Creat Clear Calc 30.71 41.86 Est GFR (MDRD) Af Amer 33 L 47 L Est GFR (MDRD) Non-Af 27 L 39 L BUN/Creatinine Ratio 13.5 16.3 Glucose 95 158 H Calcium 8.5 7.7 L Total Bilirubin 0.60 AST 10 L ALT 23 Alkaline Phosphatase 102 Troponin I < 0.015 Total Protein 5.7 L Albumin 2.8 L Globulin 2.9 Albumin/Globulin Ratio 1.0 Lipase 168 POC Glucose 04/13/18 04/13/18 04/13/18 11:43 07:04 04:13 POC Glucose 191 H 173 H 141 H 04/12/18 04/12/18 23:51 20:59 POC Glucose 104 122 H Medical Necessity - Tobacco Use Smoking Status: Current every day smoker Tobacco Use: Pipe Assessment/Plan All Active Problems Syncope (Acute) Intractable nausea and vomiting (Resolved) FLORY (acute kidney injury) (Acute) Nonketotic hyperglycinemia (Resolved) Nausea (Resolved) Abdominal pain (Resolved) Hematochezia (Resolved) 1. Syncope-mild bradycardia, positive for orthostatic hypotension. Also component of dehydration as his BUN and creatinine have worsened since his last admission. He was previously here with ileus, diarrhea, AK I. Will continue IV fluids and monitor his orthostatic vitals. Cardiology will also be consulted. Echocardiogram shows an EF of 65%, impaired relaxation, no ASD, apical Folstein is noted. No events on telemetry. Opponent is negative. 2. FLORY - continue IV fluids. recent FLORY. Likely dehydrated. 3. Hypertension-metoprolol was decreased, Catapres continued. 4. Type 2 diabetes mellitus-continue current therapy plus sliding scale 5. Depression-continue Cymbalta 6. Debility-previously refused [facility], will continue PT OT and patient may end up needing to go to skilled as he failed being home after last admission. Discharge planning: As per #5 DVT prophylaxis: Heparin This patient was seen by Hola Damon PA-C under the supervision of Doctor Trinity. <Brandi Petersen - Last Filed: 04/13/18 16:12> - Physical Exam Vital Signs Temp Pulse Resp BP Pulse Ox 98.3 F 58 L 18 145/65 H 98 04/13/18 15:16 04/13/18 15:16 04/13/18 15:16 04/13/18 15:16 04/13/18 15:16 Oxygen Delivery Method Room Air Weight: 210 lb 15.718 oz Body Mass Index (BMI) 31.1 Finger Stick Blood Glucose 122 Orthostatic Vital Signs Start: 04/13/18 05:34 Freq: q24h Status: Active Protocol: Activity Type Activity Date Activity User E-Sign Co-Sign Detail Recorded Client Recorded Date Recorded By Document 04/13/18 05:34 [facility] [id number] 04/13/18 05:37 [facility] 04/13/18 05:34 Orthostatic Vitals Standing -Blood Pressure (90/60-120/80) 97/50 L -Extremity Use Left Arm -Pulse Rate (60-100) 62 Sitting -Blood Pressure (90/60-120/80) 116/63 -Extremity Use Left Arm -Pulse Rate (60-100) 57 L Lying -Blood Pressure (90/60-120/80) 136/80 H -Extremity Use Left Arm -Pulse Rate (60-100) 58 L Intake and Output for Last 24 Hours 04/11/18 04/12/18 04/13/18 23:59 23:59 23:59 Intake Total 1540 / 1540 Balance 1540 / 1540 Laboratory Tests Past 24 Hrs 04/12/18 04/12/18 04/13/18 21:00 21:00 07:17 WBC 8.8 RBC 4.48 L Hgb 13.4 Hct 39.1 L MCV 87.3 MCH 29.9 MCHC 34.3 RDW 12.9 RDW Differential 40.2 Plt Count 169 MPV 12.4 H Immature Gran % (Auto) 2.300 H Neut % (Auto) 62.9 Lymph % (Auto) 21.5 [place] % (Auto) 9.5 Eos % (Auto) 3.3 Baso % (Auto) 0.5 Absolute Neuts (auto) 5.6 Absolute Lymphs (auto) 1.90 Total Counted Not Reportable Diff Path Review Reviewed Sodium 139 138 Potassium 3.7 3.8 Chloride 100 103 Carbon Dioxide 29.0 28.0 Anion Gap 10 7 BUN 35 H 31 H Creatinine 2.59 H 1.90 H Estim Creat Clear Calc 30.71 41.86 Est GFR (MDRD) Af Amer 33 L 47 L Est GFR (MDRD) Non-Af 27 L 39 L BUN/Creatinine Ratio 13.5 16.3 Glucose 95 158 H Calcium 8.5 7.7 L Total Bilirubin 0.60 AST 10 L ALT 23 Alkaline Phosphatase 102 Troponin I < 0.015 Total Protein 5.7 L Albumin 2.8 L Globulin 2.9 Albumin/Globulin Ratio 1.0 Lipase 168 POC Glucose 04/13/18 04/13/18 04/13/18 11:43 07:04 04:13 POC Glucose 191 H 173 H 141 H 04/12/18 04/12/18 23:51 20:59 POC Glucose 104 122 H Assessment/Plan Patient seen by Hola Damon PA-C under my supervision Patient was admitted with a complaint of syncope. He was recently admitted and discharged about 2 days ago. He was admitted and managed for AK I at that time. He was discharged home after he refused to go to [facility] facility. He went home and said he suddenly passed out. It was witnessed by his and he states there was not any associated seizure-like symptoms no post syncopal drowsiness or incontinence. He is being hydrated with IV fluids after he was found to have AK I during this admission too. Patient seen and exmained. He had no complaints and felt well. He denied fever, chills, palpitations, dizziness, abdominal pain, diarrhea vomiting. Labs and vitals reviewed. Patient noted to be bradycardic. On examination Vital Signs Height 5 ft 9 in Weight: 210 lb 15.718 oz Weight in Pounds 211.0 lbs Pulse Ox 98 Temperature 98.3 F Pulse Rate [Standing] 62 Pulse Rate [Sitting] 57 Pulse Rate [Lying] 58 Pulse Rate 58 Respiratory Rate 18 Blood Pressure [Standing] 97/50 Blood Pressure [Sitting] 116/63 Blood Pressure [Lying] 136/80 Blood Pressure 145/65 Blood Pressure Position Supine General: Alert, Oriented x3, Cooperative HEENT: Atraumatic, PERRLA, EOMI, Normocephalic Neck: Supple, No JVD, Negative Carotid Bruits Lungs: Clear to auscultation, Normal air movement Cardiovascular: bradycadic, No murmurs Abdomen: Bowel Sounds Present, Soft, Non Tender Extremities: No edema, Capillary Refill Less than 3 Seconds Skin: No rashes, No breakdown Musculoskeletal: No Tenderness to Palpation of Joints or Extremities Neurological: Cranial nerves II-XII grossly intact Psych/Mental Status: Normal Affect, Appropriate, Alert and oriented to time, place, person, mood and affect Plan is to manage patient for syncope, likely due to orthostatic hypotension, and FLORY due to dehydration. Patient's orthostatics were active. Continue hydration with IV fluid. Metoprolol also DC'd as patient is noted to be bradycardic. Will consult cardiology for their input as patient says that he is been having these recurrent syncopal episodes at home. Agree with rest of above, assessment and plan and management as per Hola Damon PA-C-'s note. Code Visit OBSV E&M: [id number] Subsequent observation care L3
[2018-04-13 16:41] LABS: Bedside Glucose 250 mg/dL (70-110)
--- NOTE | 2018-04-13 16:44 | CASEMGMT ---
MEGHAN spoke with patient's . She said she and patient do not want him to go to a [facility]. They would like home health. She said she would like a home health agency that has mental health as patient is very depressed. She said she does not think they need the Medicaid application as she thinks her insurance pays for home health. MEGHAN told her we will make sure HH is set up before he leaves. Lauren HERNANDEZ MSW
--- NOTE | 2018-04-13 19:44 | CON.PCM_ITS ---
Problem List (1) Syncope Status: Acute (2) Bradycardia Status: Acute (3) HTN (hypertension) Status: Chronic Qualifiers: Hypertension type: unspecified secondary hypertension Qualified Code(s): I15.9 - Secondary hypertension, unspecified; I15 - Secondary hypertension (4) Diabetes mellitus Status: Chronic Qualifiers: Diabetes mellitus type: type 2 Diabetes mellitus long term care pharmacist insulin use: with half-way use Diabetes mellitus complication status: with neurologic complications Diabetes mellitus complication detail: with unspecified neuropathy Qualified Code(s): E11.40 - Type 2 diabetes mellitus with diabetic neuropathy, unspecified; Z79.4 - nursing home (current) use of insulin (5) FLORY (acute kidney injury) Status: Acute Reason for Consult Date of Consultation: 04/13/18 History of Present Illness: The patient is a 57 year old white male with a past medical history of hypertension, diabetes mellitus-noncompliance, who is referred for evaluation of syncope in the setting of acute renal insufficiency. The patient admits that he does not follow his recommended diet. He does adjust his medications. The patient notes that he has not been well recently. He has had concerns of diminished oral intake as well as nausea and emesis. He states his glucose levels have been fluctuating up and down. He has been adjusting his insulin regimen. He notes that he was at his home. He states he was in his dining room. He does not recall exactly what transpired except remember opening his eyes and seeing the EMS team around him. He does not recall any ongoing chest discomfort or difficulty breathing. He denies any episodes of palpitations, nausea, emesis, or diaphoresis. He states he has had similar episodes to this in the past when his glucose levels have been low and/or his blood pressure has been low. He notes based upon this he was brought to the hospital for further evaluation. He was found on additional evaluation to have a negative troponin I level. His ECG demonstrated from the EMS system underlying sinus rhythm with a ventricular rate of approximately [address] and T wave abnormality. A follow-up ECG was performed at [facility]. He has sinus bradycardia with no acute ECG changes. He is undergone evaluation with a transthoracic echocardiogram. His left ventricle was thought to be normal with an LVEF of 65% with no hemodynamically significant valvular heart disease. He was also noted to have marked elevation of his creatinine level. This was presumed secondary to his diminished oral intake and nausea and emesis. He has been treated with IV fluids. His creatinine level is improving. He underwent orthostatic blood pressure evaluation upon admission. His orthostatic blood pressures were reported as negative. [] Past Medical History Allergies/Adverse Reactions: Allergies nifedipine [From Adalat] Allergy (Verified 04/12/18 21:13) Unknown Home Medications: Ambulatory Orders Medication Instructions Recorded Omeprazole [Prilosec] 40 mg PO DAILY 05/08/14 Fenofibrate [Tricor] 45 mg PO DAILY 08/04/16 Insulin Aspart [Novolog Flexpen] See Protocol SQ TIDCM 08/04/16 Diazepam [Valium] 5 mg PO BID PRN PRN 04/06/18 Pregabalin [Lyrica] 100 mg PO BID 04/06/18 Metoprolol Tartrate [Lopressor 50 mg PO BID 04/07/18 (beta basilio)] Duloxetine Hcl [Cymbalta] 60 mg PO DAILY #30 capsule. 04/10/18 Insulin Glargine,Hum.rec.anlog 20 unit SQ BID #1 ml 04/10/18 [Ricky Cortez] Clonidine HCl 0.1 mg PO BID 04/12/18 Lisinopril [Zestril] 40 mg PO DAILY 04/12/18 Past Medical History (Chronic Problems): Chronic Problems Noncompliance with diabetes treatment (Chronic) Back pain (Chronic) HTN (hypertension) (Chronic) Anxiety (Chronic) Depression (Chronic) History of lumbar fusion (Chronic) Diabetes mellitus (Chronic) Surgical History: - - Back Surgery 198906/29/95. He had a hernia repair May 07, 2008 Psychiatric History: Anxiety, Depression - severe - *Family History Paternal History Items: Heart Disease, Hypertension, - - CAD; cerebral hemorrhage. Maternal History Items: - - suicide, depression. otherwise history unknown Lives: Spouse/ Significant Other Smoking Status: Current every day smoker Tobacco Use: Pipe Alcohol: None Drugs: None Review of Systems - Review of Systems General: Denies: Fever, Night Sweats, Fatigue Cardiovascular: Reports: Syncope. Denies: Chest Discomfort, Shortness of Breat h, Orthopnea, PND, Peripheral Edema, Palpitations, Lightheadedness, Dizziness, Near Syncope Respiratory: Denies: Cough, Sputum Production, Hemoptysis Gastrointestinal: Reports: Nausea, Emesis. Denies: Hematemesis, Hematochezia, Melena Genitourinary: Denies: Dysuria, Hematuria Skin: Denies: Rash Subjectve: This is a 57-year-old white male who appears to be resting reasonably comfortably at the moment in no acute distress. Objective: Vital Signs Temp Pulse Resp BP Pulse Ox 98.3 F 58 L 18 145/65 H 98 04/13/18 15:16 04/13/18 15:16 04/13/18 15:16 04/13/18 15:16 04/13/18 15:16 Oxygen Delivery Method Room Air Weight: 210 lb 15.718 oz Body Mass Index (BMI) 31.1 Finger Stick Blood Glucose 122 Orthostatic Vital Signs Start: 04/13/18 05:34 Freq: q24h Status: Active Protocol: Activity Type Activity Date Activity User E-Sign Co-Sign Detail Recorded Client Recorded Date Recorded By Document 04/13/18 05:34 BAM [id number] 04/13/18 05:37 BAM 04/13/18 05:34 Orthostatic Vitals Standing -Blood Pressure (90/60-120/80 mm Hg) 97/50 L -Extremity Use Left Arm -Pulse Rate (60-100 beats/min) 62 Sitting -Blood Pressure (90/60-120/80 mm Hg) 116/63 -Extremity Use Left Arm -Pulse Rate (60-100 beats/min) 57 L Lying -Blood Pressure (90/60-120/80 mm Hg) 136/80 H -Extremity Use Left Arm -Pulse Rate (60-100 beats/min) 58 L Intake and Output for Last 24 Hours 04/11/18 04/12/18 04/13/18 23:59 23:59 23:59 Intake Total 1660 / 1660 Balance 1660 / 1660 General: Awake, Alert, Oriented x 3, Cooperative, No Acute Distress HEENT: Atraumatic, Normocephalic, PERRL, EOMI, Sclera Non Icteric Oral: Moist Mucosa Neck: Supple, Good ROM, No JVD Lungs: Clear to auscultation Cardiovascular: Regular Rhythm, Normal S1, Normal S2 Vascular: No Carotid Bruits Abdomen: Bowel Sounds Present, Soft, Non Tender Extremities: No Cyanosis, No Clubbing, No edema, - - Bilateral upper extremities: Multiple tattoos; bilateral lower extremities: Hair loss Skin: No Rashes Psych/Mental Status: Appropriate 04/12/18 21:00: WBC 8.8, RBC 4.48 L, Hgb 13.4, Hct 39.1 L, MCV 87.3, MCH 29.9, MCHC 34.3, RDW 12.9, RDW Differential 40.2, Plt Count 169, MPV 12.4 H, Immature Gran % (Auto) 2.300 H, Neut % (Auto) 62.9, Lymph % (Auto) 21.5, [place] % (Auto) 9.5, Eos % (Auto) 3.3, Baso % (Auto) 0.5, Absolute Neuts (auto) 5.6, Total Counted Not Reportable 04/12/18 21:00: Sodium 139, Potassium 3.7, Chloride 100, Carbon Dioxide 29.0, Anion Gap 10, BUN 35 H, Creatinine 2.59 H, Est GFR (MDRD) Af Amer 33 L, Est GFR (MDRD) Non-Af 27 L, BUN/Creatinine Ratio 13.5, Glucose 95, Calcium 8.5, Total Bilirubin 0.60, Troponin I < 0.015 04/13/18 07:17: Sodium 138, Potassium 3.8, Chloride 103, Carbon Dioxide 28.0, Anion Gap 7, BUN 31 H, Creatinine 1.90 H, Est GFR (MDRD) Af Amer 47 L, Est GFR (MDRD) Non-Af 39 L, BUN/Creatinine Ratio 16.3, Glucose 158 H, Calcium 7.7 L Rhythm: Sinus rhythm EKG: As noted above ECHO: As noted above Assessment/Plan 1. Syncope The patient had a syncopal event. Is unclear as to the exact etiology of his episodes where he was reportedly unresponsive for a period of time. At the present time there be concerns based upon his diminished oral intake and nausea and emesis that has developed dehydration and may have been orthostatic. However his orthostatic blood pressures were reportedly negative. He also notes right before his event he took additional insulin. Thus there is concern as to whether or not he did have a sudden drop in his serum glucose levels that may have precipitated his event. He has not been found thus far to have any evidence of an acute coronary syndrome or a definitive cardiac dysrhythmia to explain his event. His overall LV wall motion and systolic function appear to be preserved. At the moment he is continuing to be monitored. It may not be unreasonable to consider, unless another definitive etiology is found, to not only treat his diminished oral intake and adjust his glucose levels, to consider him for future outpatient ambulatory cardiac rhythm monitor/30-day event monitor and attempt to locate any obvious cardiac dysrhythmia that would correlate with any symptoms and/or events. 2. Bradycardia The patient is noted to be bradycardic. It is unclear as to whether or not this was associated with his event. At the present time he remains with sinus rhythm/sinus bradycardia without obvious symptoms and/or hemodynamic compromise. However, it may not be unreasonable, based upon his bradycardia dysrhythmia in the aforementioned concerns, to adjust his medications. This would include decreasing his beta-basilio therapy as well as his clonidine/Catapres therapy. Depending upon his blood pressure response he may need alternative non-rate limiting medication to assist with his blood pressure. 3. Hypertension Again his blood pressure will need to be monitored. His medications may need to be adjusted to bring his blood pressure under better control without markedly limiting his cardiac rate. 4. Diabetes mellitus Patient has been reported as being noncompliant with his diet as well as his medications. Again there is concern as to whether or not this may have contributed to his event. 5. Acute renal insufficiency This appears to be related to diminished oral intake as well as nausea and emesis at this time. He is receiving IV fluids. His creatinine level is improving. This note was generated using a voice recognition system and there may be incorrect words, spelling or punctuation that were not noted when reviewing the office note prior to saving.
[2018-04-13] MEDS: 0.9% NaCl Peripheral Flush Adult/Peds IV (21:48)
[2018-04-13 22:10] LABS: Bedside Glucose 203 mg/dL (70-110)
[2018-04-14] VITALS (13 sets, daily range): BP systolic 143–185; BP diastolic 67–88; PULSE 55–80; RESP 16–18; TEMP 36.6–36.9; O2SAT 94–98
[2018-04-14 03:11] LABS: Bedside Glucose 99 mg/dL (70-110)
[2018-04-14] MEDS: Heparin Injection (Vial) 5,000 UNIT/ML VIAL 5000 UNIT SC ×3 (05:23→21:16)
[2018-04-14 06:06] LABS: Anion Gap 5 (5-15); BUN 20 mg/dL (7-18); BUN/Creat Ratio 14.4 RATIO (10-20); Calcium,Total 8.1 mg/dL (8.5-10.1); Chloride 107 mmol/L (98-107); Creatinine, Serum 1.39 mg/dL (0.70-1.30); EST Glomerular Filtration Rate 56 mL/min (>60); Est Glom Filt Rate - Afr Amer 67 mL/min (>60); Estimated Creatinine Clearance 57.22 ml/min; Glucose 50 mg/dL (74-106); Potassium 3.7 mmol/L (3.5-5.1); Sodium Level 143 mmol/L (136-145)
[2018-04-14] MEDS: DULoxetine Hcl 60 MG Capsule PO (09:30)
[2018-04-14] MEDS: cloNIDine HCl 0.1 MG Tablet PO ×2 (09:30→21:16)
[2018-04-14] MEDS: Pantoprazole Sodium 40 MG Tablet PO (09:30)
[2018-04-14] MEDS: Pregabalin 50 MG Capsule 100 MG PO ×2 (09:35→21:17)
--- NOTE | 2018-04-14 10:45 | CASEMGMT ---
Per Josef CHRISTIANSON, pt's is requesting HHC with behavioral health component. Referral faxed to [facility] at this time, pt is aware and voices understanding. Pt is concerned about co-pay/coverage. Myriam BROWN CM
--- NOTE | 2018-04-14 11:10 | PCM.PN.HOSP ---
Patient Problems: Active and Suspected Problems Syncope (Acute) Bradycardia (Acute) Subjective: Patient seen and examined. he has no complaints and feels well. He denies any fever, chills, cough, chest pain, SOB, abdominal pain, diarrhea or vomiting. He was noted to be hypoglycemic this morning her blood sugar falling to the 40s. States his been eating well and ate dinner yesterday as well as breakfast this morning. Creatinine has trended down to 1.39. Patient is now willing to go to a residential facility because he cannot afford it. Vitals/I&O's: Vital Signs Temp Pulse Resp BP Pulse Ox 98.4 F 66 18 174/81 H 94 04/14/18 09:15 04/14/18 09:15 04/14/18 09:15 04/14/18 09:15 04/14/18 09:15 Oxygen Delivery Method Room Air Weight: 210 lb 15.718 oz Body Mass Index (BMI) 31.1 Finger Stick Blood Glucose 122 Orthostatic Vital Signs Start: 04/13/18 05:34 Freq: 0600 Status: Active Protocol: Activity Type Activity Date Activity User E-Sign Co-Sign Detail Recorded Client Recorded Date Recorded By Document 04/14/18 05:17 BB [id number] 04/14/18 05:20 BB 04/14/18 05:17 Orthostatic Vitals Standing -Blood Pressure (90/60-120/80 mm Hg) 144/72 H -Extremity Use Right Arm -Pulse Rate (60-100 beats/min) 61 Sitting -Blood Pressure (90/60-120/80 mm Hg) 143/85 H -Extremity Use Right Arm -Pulse Rate (60-100 beats/min) 59 L Lying -Blood Pressure (90/60-120/80 mm Hg) 173/86 H -Extremity Use Right Arm -Pulse Rate (60-100 beats/min) 55 L Intake and Output for Last 24 Hours 04/12/18 04/13/18 04/14/18 23:59 23:59 23:59 Intake Total 2509 / 2509 240 / 240 Output Total 1150 / 1150 650 / 650 Balance 1359 / 1359 -410 / -410 General: Alert, Oriented x3, Cooperative, No apparent distress HEENT: Atraumatic, PERRLA, EOMI, Normocephalic Oral: Moist Mucosa Neck: Supple, No JVD, Negative Carotid Bruits Lungs: Clear to auscultation, Normal air movement, No rhonchi, No wheeze, No rales Cardiovascular: Regular rate, Regular Rhythm, Normal S1, Normal S2, No murmurs Abdomen: Bowel Sounds Present, Soft, Non Tender, Non-Distended, No Hepato-splenomegaly Extremities: No clubbing, No cyanosis, No edema, Capillary Refill Less than 3 Seconds Skin: No rashes, No breakdown Musculoskeletal: No Tenderness to Palpation of Joints or Extremities Lymphatic: No Cervical, Supraclavicular, or Inguinal Adenopathy Neurological: Cranial nerves II-XII grossly intact, Neuro grossly intact, Motor Exam 5/5 strength throughout Psych/Mental Status: Normal Affect, Appropriate, Alert and oriented to time, place, person, mood and affect Laboratory Results 04/12/18 21:00: Diff Path Review Reviewed 04/13/18 11:43: POC Glucose 191 H 04/13/18 16:32: POC Glucose 250 H 04/13/18 21:42: POC Glucose 203 H 04/14/18 03:01: POC Glucose 99 04/14/18 05:30: Sodium 143, Potassium 3.7, Chloride 107, Carbon Dioxide 31.0, Anion Gap 5, BUN 20 H, Creatinine 1.39 H, Estim Creat Clear Calc 57.22, Est GFR (MDRD) Af Amer 67, Est GFR (MDRD) Non-Af 56 L, BUN/Creatinine Ratio 14.4, Glucose 50 L, Calcium 8.1 L Current Medications Acetaminophen (Tylenol) 650 mg PO Q6H PRN PRN PRN Reason: Mild Pain (scale 0-3)/T>100.7 Clonidine (Catapres) 0.1 mg PO BID [facility] Last Admin: 04/14/18 09:30 Dose: 0.1 mg Dextrose (D50w Syringe) 0 gm IV X1 PRN; Protocol PRN Reason: Hypoglycemia Duloxetine HCl (Cymbalta) 60 mg PO DAILY [facility] Last Admin: 04/14/18 09:30 Dose: 60 mg Glucagon () 1 mg IM .X1 PRN PRN Reason: Hypoglycemia Heparin Sodium (Porcine) (Heparin Na) 5,000 unit SC Q8 [facility] Last Admin: 04/14/18 05:23 Dose: 5,000 unit Hydralazine HCl (Apresoline Iv) 5 mg IV Q4H PRN PRN PRN Reason: SBP > 160 or DBP > 120 Insulin Human Lispro (Humalog Kwikpen (Bkc)) 0 unit SQ ACHS & 3AM [facility]; Protocol Last Admin: 04/14/18 08:03 Dose: Not Given Magnesium Hydroxide (Milk Of Magnesia) 30 ml PO DAILY PRN PRN Reason: Constipation Ondansetron HCl (Zofran) 4 mg IV Q8H PRN PRN PRN Reason: Nausea Pantoprazole Sodium (Protonix) 40 mg PO DAILY [facility] Last Admin: 04/14/18 09:30 Dose: 40 mg Pregabalin (Lyrica) 100 mg PO BID [facility] Last Admin: 04/14/18 09:35 Dose: 100 mg Sodium Chloride () 5 - 15 ml IV UD PRN PRN Reason: SALINE FLUSH Last Admin: 04/13/18 21:48 Dose: 5 ml Medical Necessity - Tobacco Use Smoking Status: Current every day smoker Tobacco Use: Pipe Assessment/Plan All Active Problems Syncope (Acute) Bradycardia (Acute) Intractable nausea and vomiting (Resolved) FLORY (acute kidney injury) (Acute) Nonketotic hyperglycinemia (Resolved) Nausea (Resolved) Abdominal pain (Resolved) Hematochezia (Resolved) 1. Syncope likely due to decreased intake; bradycardia could also be a contributory factor orthostatics was positive and he had FLORY feels better now. metoprolol dced. cardiology on board echo showed EF of 65% with impaired relaxation and no ASD. continue hydrating with IVF. Counselled about taking in adequate oral hydration 2. FLORY: resolving. Cr down to 1.39, which is around his baseline. Will continue monitoring 3. Hypertension: is elevated this morning. BP in the 170s systolic. Metoprolol dced o/a of bradycardia. on clonidine. Will continue and start PO HCTZ 12.5mg daily 4. Diabetes mellitus; was hypoglycemic this morning, which has been a recurring problem. will hold lantus. ISS. Accuchecks ACHS. 5. Depression: Cymbalta DVT prophylaxis: Heparin Code Visit Inpatient E&M: 19620 [facility] Hosp L3
[2018-04-14 11:11] LABS: Bedside Glucose 44 mg/dL (70-110)
[2018-04-14 11:11] LABS: Bedside Glucose 109 mg/dL (70-110)
--- NOTE | 2018-04-14 11:11 | CASEMGMT ---
This RN ION to room with STEWART form at this time, explanation done, pt voices understanding and signs form at this time. Original to chart and copy to pt at this time. SStluz BROWN CM
--- NOTE | 2018-04-14 11:15 | PN_ITS ---
Patient Problems: Active and Suspected Problems Syncope (Acute) Bradycardia (Acute) Subjective: Patient seen and examined. he has no complaints and feels well. He denies any fever, chills, cough, chest pain, SOB, abdominal pain, diarrhea or vomiting. He was noted to be hypoglycemic this morning her blood sugar falling to the 40s. States his been eating well and ate dinner yesterday as well as breakfast this morning. Creatinine has trended down to 1.39. Patient is now willing to go to a longterm facility because he cannot afford it. Vitals/I&O's: Vital Signs Temp Pulse Resp BP Pulse Ox 98.4 F 66 18 174/81 H 94 04/14/18 09:15 04/14/18 09:15 04/14/18 09:15 04/14/18 09:15 04/14/18 09:15 Oxygen Delivery Method Room Air Weight: 210 lb 15.718 oz Body Mass Index (BMI) 31.1 Finger Stick Blood Glucose 122 Orthostatic Vital Signs Start: 04/13/18 05:34 Freq: 0600 Status: Active Protocol: Activity Type Activity Date Activity User E-Sign Co-Sign Detail Recorded Client Recorded Date Recorded By Document 04/14/18 05:17 BB [id number] 04/14/18 05:20 BB 04/14/18 05:17 Orthostatic Vitals Standing -Blood Pressure (90/60-120/80 mm Hg) 144/72 H -Extremity Use Right Arm -Pulse Rate (60-100 beats/min) 61 Sitting -Blood Pressure (90/60-120/80 mm Hg) 143/85 H -Extremity Use Right Arm -Pulse Rate (60-100 beats/min) 59 L Lying -Blood Pressure (90/60-120/80 mm Hg) 173/86 H -Extremity Use Right Arm -Pulse Rate (60-100 beats/min) 55 L Intake and Output for Last 24 Hours 04/12/18 04/13/18 04/14/18 23:59 23:59 23:59 Intake Total 2509 / 2509 240 / 240 Output Total 1150 / 1150 650 / 650 Balance 1359 / 1359 -410 / -410 General: Alert, Oriented x3, Cooperative, No apparent distress HEENT: Atraumatic, PERRLA, EOMI, Normocephalic Oral: Moist Mucosa Neck: Supple, No JVD, Negative Carotid Bruits Lungs: Clear to auscultation, Normal air movement, No rhonchi, No wheeze, No rales Cardiovascular: Regular rate, Regular Rhythm, Normal S1, Normal S2, No murmurs Abdomen: Bowel Sounds Present, Soft, Non Tender, Non-Distended, No Hepato- splenomegaly Extremities: No clubbing, No cyanosis, No edema, Capillary Refill Less than 3 Seconds Skin: No rashes, No breakdown Musculoskeletal: No Tenderness to Palpation of Joints or Extremities Lymphatic: No Cervical, Supraclavicular, or Inguinal Adenopathy Neurological: Cranial nerves II-XII grossly intact, Neuro grossly intact, Motor Exam 5/5 strength throughout Psych/Mental Status: Normal Affect, Appropriate, Alert and oriented to time, place, person, mood and affect Laboratory Results 04/12/18 21:00: Diff Path Review Reviewed 04/13/18 11:43: POC Glucose 191 H 04/13/18 16:32: POC Glucose 250 H 04/13/18 21:42: POC Glucose 203 H 04/14/18 03:01: POC Glucose 99 04/14/18 05:30: Sodium 143, Potassium 3.7, Chloride 107, Carbon Dioxide 31.0, Anion Gap 5, BUN 20 H, Creatinine 1.39 H, Estim Creat Clear Calc 57.22, Est GFR (MDRD) Af Amer 67, Est GFR (MDRD) Non-Af 56 L, BUN/Creatinine Ratio 14.4, Glucose 50 L, Calcium 8.1 L Current Medications Acetaminophen (Tylenol) 650 mg PO Q6H PRN PRN PRN Reason: Mild Pain (scale 0-3)/T>100.7 Clonidine (Catapres) 0.1 mg PO BID [facility] Last Admin: 04/14/18 09:30 Dose: 0.1 mg Dextrose (D50w Syringe) 0 gm IV X1 PRN; Protocol PRN Reason: Hypoglycemia Duloxetine HCl (Cymbalta) 60 mg PO DAILY [facility] Last Admin: 04/14/18 09:30 Dose: 60 mg Glucagon () 1 mg IM .X1 PRN PRN Reason: Hypoglycemia Heparin Sodium (Porcine) (Heparin Na) 5,000 unit SC Q8 [facility] Last Admin: 04/14/18 05:23 Dose: 5,000 unit Hydralazine HCl (Apresoline Iv) 5 mg IV Q4H PRN PRN PRN Reason: SBP > 160 or DBP > 120 Insulin Human Lispro (Humalog Kwikpen (Bkc)) 0 unit SQ ACHS & 3AM [facility]; Protocol Last Admin: 04/14/18 08:03 Dose: Not Given Magnesium Hydroxide (Milk Of Magnesia) 30 ml PO DAILY PRN PRN Reason: Constipation Ondansetron HCl (Zofran) 4 mg IV Q8H PRN PRN PRN Reason: Nausea Pantoprazole Sodium (Protonix) 40 mg PO DAILY [facility] Last Admin: 04/14/18 09:30 Dose: 40 mg Pregabalin (Lyrica) 100 mg PO BID [facility] Last Admin: 04/14/18 09:35 Dose: 100 mg Sodium Chloride () 5 - 15 ml IV UD PRN PRN Reason: SALINE FLUSH Last Admin: 04/13/18 21:48 Dose: 5 ml Medical Necessity - Tobacco Use Smoking Status: Current every day smoker Tobacco Use: Pipe Assessment/Plan All Active Problems Syncope (Acute) Bradycardia (Acute) Intractable nausea and vomiting (Resolved) FLORY (acute kidney injury) (Acute) Nonketotic hyperglycinemia (Resolved) Nausea (Resolved) Abdominal pain (Resolved) Hematochezia (Resolved) 1. Syncope * likely due to decreased intake; bradycardia could also be a contributory factor * orthostatics was positive and he had FLORY * feels better now. metoprolol dced. * cardiology on board * echo showed EF of 65% with impaired relaxation and no ASD. * continue hydrating with IVF. Counselled about taking in adequate oral hydration * 2. FLORY: resolving. Cr down to 1.39, which is around his baseline. Will continue monitoring 3. Hypertension: is elevated this morning. BP in the 170s systolic. Metoprolol dced o/a of bradycardia. on clonidine. Will continue and start PO HCTZ 12.5mg daily 4. Diabetes mellitus; was hypoglycemic this morning, which has been a recurring problem. will hold lantus. ISS. Accuchecks ACHS. 5. Depression: Cymbalta DVT prophylaxis: Heparin Code Visit Inpatient E&M: 10784 [facility] Hosp L3
[2018-04-14] MEDS: Insulin Lispro 100 UNIT/ML INSULN.PEN SQ ×3 (11:53→21:17)
[2018-04-14 12:01] LABS: Bedside Glucose 203 mg/dL (70-110)
[2018-04-14] MEDS: hydroCHLOROthiazide 12.5mg 12.5 MG PO (12:29)
--- NOTE | 2018-04-14 13:07 | PCM.PN.CARD ---
Subjectve: The patient appears to be without significant change this day. Objective: Vital Signs Temp Pulse Resp BP Pulse Ox 98.4 F 80 18 174/81 H 94 04/14/18 09:15 04/14/18 11:00 04/14/18 09:15 04/14/18 09:15 04/14/18 09:15 Oxygen Delivery Method Room Air Weight: 210 lb 15.718 oz Body Mass Index (BMI) 31.1 Finger Stick Blood Glucose 122 Orthostatic Vital Signs Start: 04/13/18 05:34 Freq: 0600 Status: Active Protocol: Activity Type Activity Date Activity User E-Sign Co-Sign Detail Recorded Client Recorded Date Recorded By Document 04/14/18 05:17 BB [id number] 04/14/18 05:20 BB 04/14/18 05:17 Orthostatic Vitals Standing -Blood Pressure (90/60-120/80 mm Hg) 144/72 H -Extremity Use Right Arm -Pulse Rate (60-100 beats/min) 61 Sitting -Blood Pressure (90/60-120/80 mm Hg) 143/85 H -Extremity Use Right Arm -Pulse Rate (60-100 beats/min) 59 L Lying -Blood Pressure (90/60-120/80 mm Hg) 173/86 H -Extremity Use Right Arm -Pulse Rate (60-100 beats/min) 55 L Intake and Output for Last 24 Hours 04/12/18 04/13/18 04/14/18 23:59 23:59 23:59 Intake Total 2509 / 2509 720 / 720 Output Total 1150 / 1150 650 / 650 Balance 1359 / 1359 70 / 70 General: Awake, Alert, Oriented x 3, Cooperative, No Acute Distress HEENT: Atraumatic, Normocephalic, PERRL, EOMI, Sclera Non Icteric Oral: Moist Mucosa Neck: Supple, Good ROM, No JVD Lungs: Clear to auscultation Cardiovascular: Regular Rhythm, Normal S1, Normal S2 Abdomen: Bowel Sounds Present, Soft, Non Tender Extremities: No edema Neurological: No Focal Motor or Sensory Deficit Psych/Mental Status: Appropriate 04/14/18 05:30: Sodium 143, Potassium 3.7, Chloride 107, Carbon Dioxide 31.0, Anion Gap 5, BUN 20 H, Creatinine 1.39 H, Est GFR (MDRD) Af Amer 67, Est GFR (MDRD) Non-Af 56 L, BUN/Creatinine Ratio 14.4, Glucose 50 L, Calcium 8.1 L Rhythm: Sinus rhythm Medical Necessity - Tobacco Use Smoking Status: Current every day smoker Tobacco Use: Pipe Assessment/Plan 1. Syncope The patient had a syncopal event. Is unclear as to the exact etiology of his episodes where he was reportedly unresponsive for a period of time. At the present time there be concerns based upon his diminished oral intake and nausea and emesis that has developed dehydration and may have been orthostatic. He also notes right before his event he took additional insulin. Thus there is concern as to whether or not he did have a sudden drop in his serum glucose levels that may have precipitated his event. He has not been found thus far to have any evidence of an acute coronary syndrome or a definitive cardiac dysrhythmia to explain his event. His overall LV wall motion and systolic function appear to be preserved. At the moment he is continuing to be monitored. It may not be unreasonable to consider, unless another definitive etiology is found, to not only treat his diminished oral intake and adjust his glucose levels, to consider him for future outpatient ambulatory cardiac rhythm monitor/30-day event monitor and attempt to locate any obvious cardiac dysrhythmia that would correlate with any symptoms and/or events. 2. Bradycardia The patient is noted to be bradycardic. It is unclear as to whether or not this was associated with his event. At the present time he remains with sinus rhythm/sinus bradycardia without obvious symptoms and/or hemodynamic compromise. However, it may not be unreasonable, based upon his bradycardia dysrhythmia in the aforementioned concerns, to adjust his medications. This would include decreasing his beta-basilio therapy as well as his clonidine/Catapres therapy. Depending upon his blood pressure response he may need alternative non-rate limiting medication to assist with his blood pressure. 3. Hypertension Again his blood pressure will need to be monitored. His medications may need to be adjusted to bring his blood pressure under better control without markedly limiting his cardiac rate. 4. Diabetes mellitus Patient has been reported as being noncompliant with his diet as well as his medications. Again there is concern as to whether or not this may have contributed to his event. 5. Acute renal insufficiency This appears to be related to diminished oral intake as well as nausea and emesis at this time. He is receiving IV fluids. His creatinine level is improving. Plan: The patient's case was discussed and reviewed with Dr. Petersen. This note was generated using a voice recognition system and there may be incorrect words, spelling or punctuation that were not noted when reviewing the office note prior to saving.
--- NOTE | 2018-04-14 13:10 | CASEMGMT ---
Addendum entered by Sumaya Lozoya 04/14/18 15:06: This RN CM received call back from [facility] and they now state that they do not take pt's insurance. Call to [facility] and they state they do take pt's insurance and ask for referral to be faxed. They state they will call this RN CM back and notify if they can take pt. Myriam RN ION Original Note: Addendum entered by Sumaya Lozoya 04/14/18 14:31: Call back to [facility] as this RN CM has not received call back from them at this time and per Lisa, she will call corporate billing and check at this time and return call to this RN CM. Myriam RN ION Original Note: This RN CM has not received call back from [facility] at this time. Call to [facility] and they state that pt's referral has not gone through corporate yet and they state they will call to see if they can expedite. Myriam BROWN CM
[2018-04-14 16:40] LABS: Bedside Glucose 209 mg/dL (70-110)
[2018-04-14 21:25] LABS: Bedside Glucose 224 mg/dL (70-110)
[2018-04-15] VITALS (7 sets, daily range): BP systolic 102–151; BP diastolic 55–77; PULSE 55–68; RESP 16–18; TEMP 36.7–36.8; O2SAT 94–98
[2018-04-15] MEDS: Insulin Lispro 100 UNIT/ML INSULN.PEN SQ ×3 (02:55→11:54)
[2018-04-15 03:01] LABS: Bedside Glucose 196 mg/dL (70-110)
[2018-04-15] MEDS: Heparin Injection (Vial) 5,000 UNIT/ML VIAL 5000 UNIT SC (05:23)
[2018-04-15 06:24] LABS: Anion Gap 7 (5-15); BUN 17 mg/dL (7-18); BUN/Creat Ratio 12.4 RATIO (10-20); Calcium,Total 8.7 mg/dL (8.5-10.1); Chloride 103 mmol/L (98-107); Creatinine, Serum 1.37 mg/dL (0.70-1.30); EST Glomerular Filtration Rate 56 mL/min (>60); Est Glom Filt Rate - Afr Amer 68 mL/min (>60); Estimated Creatinine Clearance 58.06 ml/min; Glucose 172 mg/dL (74-106); Potassium 4.4 mmol/L (3.5-5.1); Sodium Level 138 mmol/L (136-145)
[2018-04-15 06:50] LABS: Bedside Glucose 157 mg/dL (70-110)
[2018-04-15] MEDS: cloNIDine HCl 0.1 MG Tablet PO (09:33)
[2018-04-15] MEDS: DULoxetine Hcl 60 MG Capsule PO (09:33)
[2018-04-15] MEDS: Pantoprazole Sodium 40 MG Tablet PO (09:34)
[2018-04-15] MEDS: hydroCHLOROthiazide 12.5mg 12.5 MG PO (09:34)
[2018-04-15] MEDS: Pregabalin 50 MG Capsule 100 MG PO (09:37)
--- NOTE | 2018-04-15 10:14 | DCINST_ITS ---
- Discharge Diagnoses Current Active Problems: Current Active and Chronic Problems Syncope (Acute) Bradycardia (Acute) You will use the following diet at home:: Cardiac Your food should be the consistency of: Regular Your liquids should be the consistency of: Regular/Thin Discharge Activity: Return to Normal Activity Weight Bearing Status: Weight bearing as tolerated Call your doctor if you observe: Dizziness, Fainting spells Instructions: What Is Syncope? Additional Instructions: to have 30 day holter monitor. Please stop taking metoprolol. Allergies/Adverse Reactions: Allergies nifedipine [From Adalat] Allergy (Verified 04/12/18 21:13) Unknown Medications to take at Discharge Omeprazole [Prilosec] 40 mg PO DAILY 05/08/14 Fenofibrate [Tricor] 45 mg PO DAILY 08/04/16 Insulin Aspart [Novolog Flexpen] See Protocol SQ TIDCM 08/04/16 Diazepam [Valium] 5 mg PO BID PRN PRN 04/06/18 Pregabalin [Lyrica] 100 mg PO BID 04/06/18 Duloxetine Hcl [Cymbalta] 60 mg PO DAILY #30 capsule.dr 04/10/18 Clonidine HCl 0.1 mg PO BID 04/12/18 Lisinopril [Zestril] 40 mg PO DAILY 04/12/18 Hydrochlorothiazide [Hctz] 25 mg PO DAILY #30 tab 04/15/18 Insulin Glargine,Hum.rec.anlog [Toujeo Solostar] 20 unit SQ BREAKFAST #1 ml 04/15/18 The following prescriptions were given: Hydrochlorothiazide [Hctz] 25 mg PO DAILY #30 tab Insulin Glargine,Hum.rec.anlog [Toujeo Solostar] 20 unit SQ BREAKFAST #1 ml Primary Care Physician: Chema Mckeon DO [Primary Care Provider] - Please follow up with your Primary Care Physician in: 1 week Test Results: Test results from this visit will be discussed in further detail at your follow- up appointment, if applicable. Please Follow Up With: Julian Dobbs MD When: 1-2 weeks Proposed Discharge Date: 04/15/18
--- NOTE | 2018-04-15 10:19 | CASEMGMT ---
This RN CM received call from [facility] and they are able to start pt tomorrow. Order placed for PT/OT and behavioral health at this time. Order and d/c instructions faxed at this time. This RN CM will fax d/c summary when available. Myriam RN CM
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
--- NOTE | 2018-04-15 11:06 | CASEMGMT ---
Pt updated on [facility] acceptance and aware that they will be calling pt to set up time to see him tomorrow, pt voices understanding. Pt does voice concerns regarding coverage/co-pays and this STEPHANIE LEMON advised pt to speak with [facility] when they call and ask all questions regarding coverage at that time. Pt voices understanding. Pt voices no further questions/concerns/needs at this time. [place] STEPHANIE LEMON
[2018-04-15] MEDS: hydroCHLOROthiazide 25 MG Tablet 12.5 MG PO (11:53)
[2018-04-15 12:21] LABS: Bedside Glucose 260 mg/dL (70-110)
== END 2018-04-15 14:20 | disposition home health service (06) ==
LOC: ED 21:28 → PCU 23:24
PROVIDERS: Physician Assistant; Admitting Provider Hospitalist; Emergency Provider Emergency Medicine; Family Provider Family Medicine; PCP Family Medicine; Visit Provider Student in an Organized Health Care Education/Training Program
DX: R55 Syncope and collapse (principal); R00.1 Bradycardia, unspecified; F41.9 Anxiety disorder, unspecified; F32.9 Major depressive disorder, single episode, unspecified; Z87.820 Personal history of traumatic brain injury; N17.9 Acute kidney failure, unspecified; E11.40 Type 2 diabetes mellitus with diabetic neuropathy, unspecified; F17.290 Nicotine dependence, other tobacco product, uncomplicated; Z91.19 Patient's noncompliance with other medical treatment and regimen; Z79.4 Long term (current) use of insulin; Z79.899 Other long term (current) drug therapy; E11.22 Type 2 diabetes mellitus with diabetic chronic kidney disease; N18.3 Chronic kidney disease, stage 3 (moderate); I12.9 Hypertensive chronic kidney disease with stage 1 through stage 4 chronic kidney disease, or unspecified chronic kidney disease; E11.649 Type 2 diabetes mellitus with hypoglycemia without coma
CPT/HCPCS: 36415; 71045; 80048; 80053; 82962; 83690; 84484; 85025; 93005; 93306; 96360; 96361; 96372; 97162; 97165; 97530; 99218; 99285; 99406; J7030; A4216; G0378

== ENCOUNTER 2019-01-11 10:45 | Inpatient (IN) | payer OTHER, MEDICARE, SELFPAY ==
[2018-05-30 10:07] VITALS: BMI 30.7
[2019-01-11] VITALS (11 sets, daily range): BP systolic 162–204; BP diastolic 62–119; PULSE 60–97; RESP 16–19; TEMP 36.3–36.8; O2SAT 95–99; BMI 28.8; BMI 27.9
--- NOTE | 2019-01-11 11:15 | CT_ITS ---
STUDY: CT BRAIN WITHOUT CONTRAST REASON FOR EXAM: Male, 58 years old. Syncopal episode. Hypertension and weakness. RADIATION DOSAGE (If Supplied By Facility): CTDIvol = ( 60.81 ) mGy, DLP = ( 1067.08 ) mGycm TECHNIQUE: Transaxial CT imaging of the brain was performed without administration of intravenous contrast material. Individualized dose optimization techniques were used for this CT. COMPARISON: Comparison is made with prior study dated April 06, 2018. FINDINGS: Normal soft tissue structures. Normal calvarium. There is mild cerebral atrophy with widening of the extra-axial spaces and ventricular dilatation. There are areas of decreased attenuation within the white matter tracts of the supratentorial brain, consistent with microvascular disease changes. Normal basal ganglia and thalami. Normal brainstem. Normal cerebellum. There is no intracranial hemorrhage. There are no findings of an acute ischemic infarction. Normal visualized paranasal sinuses. CT/Brain/Head without Contrast IMPRESSION: Chronic involutional changes of the brain. Electronically Signed: You Thorpe, at 12:34 EDT , Service support ,
--- NOTE | 2019-01-11 11:15 | RAD_ITS ---
STUDY: X-RAY CHEST REASON FOR EXAM: Male, 58 years old. Syncopal episode. TECHNIQUE: Single AP portable view of the chest. COMPARISON: Comparison is made with prior study dated April 12, 2018. FINDINGS: EKG liquids are seen. The lungs are clear and expanded. There is no demonstrated pleural abnormality. Normal size heart. Normal mediastinum and ella. Normal visualized pulmonary arteries. There is atherosclerotic calcification of the aortic arch with tortuosity. Normal visualized thoracic spine. There is degenerative osteoarthritis of the bilateral shoulders. There is no demonstrated abnormality of the visualized soft tissue structures of the upper abdomen. RAD/Chest 1 View (Portable) IMPRESSION: No acute abnormality is seen. Electronically Signed: You Thorpe, at 12:29 EDT , Service support ,
--- NOTE | 2019-01-11 11:15 | EKG12_ITS ---
Test Reason : SYNCOPE Blood Pressure : / mmHG Vent. Rate : 071 BPM Atrial Rate : 071 BPM P-R Int : 158 ms QRS Dur : 100 ms QT Int : 418 ms P-R-T Axes : 054 -07 -37 degrees QTc Int : 454 ms Normal sinus rhythm Moderate voltage criteria for LVH, may be normal variant Inferior infarct , age undetermined Abnormal ECG Confirmed by NINA TINEO, TIANNA ([id number]), editor in chief newspaper SWETHA LAW ([id number]) on 01/17/2019 10:30:32 AM Referred By: Chema Haro Confirmed By:STEPHANIE WOOD MD
--- NOTE | 2019-01-11 11:18 | ED.DCSUM_ITS ---
- ER Visit Summary Date of Service: 01/11/19 Chief Complaint: Syncope History of Present Illness: The patient is a 58 M who presents with syncopal episode that occurred today. states patient has been having more frequent syncopal episodes over the past few months. Patient does not remember anything that happened this morning. Patient remembers waking up on the floor. Patient denies any chest pain or palpitations. Patient admits to subjective chills and sweats. Patient admits to some weakness in his left side. Physical Examination: Vital signs are stable. Patient is afebrile. Patient is in no acute distress. Cranial nerves II through XII are intact. Strength is 4 out of 5 in the left tricep and left hip flexor. Strength is otherwise 5/5 in the upper and lower extremities. There are no sensory deficits noted. Heart was regular rate and rhythm. Lungs are clear and equal bilaterally. Abdomen is soft. Bowel sounds are normal. There is no tenderness. Skin is warm and dry. There is a superficial abrasion over the left knee. There is good range of motion. Test Results: EKG showed sinus rhythm with a rate of 71. There is T wave inversion in leads III and aVF. These are new compared to previous EKG dated 04/12/2018. There is left ventricular hypertrophy noted as well. CBC was essentially within normal limits. Basic metabolic profile showed a creatinine of 1.76 and a BUN of 27 which are consistent with prior results. Troponin was 0.039. CT scan of the brain was obtained. There are chronic changes. Chest x- ray does not show any acute cardiopulmonary process. Emergency Department Course and Treatment: Patient was feeling better on reevaluation. Patient wanted something to eat. Case was discussed with the hospitalist. Patient will be admitted to the PCU for observation. Patient and family understood and were agreeable with the plan. All questions were answered. Disposition: Admit to hospital for observation Impression: 1. Syncope This note was generated with [employer] dictation software. It may contain incorrect words, spelling, and punctuation that were not noted in review of the chart prior to signing ED Disposition - Plan for ED Patient: Disposition: Acute Care [facility] Diagnosis: Syncope and collapse Referrals: Chema Mckeon DO [Primary Care Provider] -
[2019-01-11 11:34] LABS: Absolute Lymphocyte Count 1.22 X10^3/uL (0.83-4.51); Absolute Neutrophil Count 9.3 X10^3/uL (2.0-7.7); Basophil% 0.9 % (0-1); Eosinophil# 0.17 X10^3/uL; Eosinophils% 1.5 % (0-5); Hematocrit 50.6 % (40-54); Hemoglobin 17.1 g/dL (13.0-16.5); Lymphocyte # 1.22 X10^3/ul (4.0); Lymphocyte % 10.6 % (19-41); Mean Corp Hgb Conc 33.8 g/dL (32-36); Mean Corpuscular Hgb 29.6 pg (27.0-32.0); Mean Corpuscular Volume 87.7 fL (80-94); Mean Platelet Vol. 12.6 fl (6.2-12.0); Monocyte# 0.59 X10^3/uL; Monocyte% 5.1 % (0-10); NRBC Flagged by Analyzer 0 % (0-5); Neutrophil # 9.27 X10^3/uL (2.7-7.7); Neutrophil % 80.4 % (47-70); Platelet Count 154 K/mm3 (150-450); RBC Distribution Width CV 13.2 % (11.6-14.6); RBC Distribution Width SD 42.2 fl (35.1-43.9); Red Blood Count 5.77 M/mm3 (4.6-6.2); White Blood Count 11.5 K/mm3 (4.4-11.0)
[2019-01-11 11:42] LABS: Prothrombin Time (Protime)PT. 13.2 SECONDS (11.7-14.9)
[2019-01-11 11:57] LABS: Anion Gap 9 (5-15); BUN 27 mg/dL (7-18); BUN/Creat Ratio 15.3 RATIO (10-20); Calcium,Total 10.1 mg/dL (8.5-10.1); Chloride 100 mmol/L (98-107); Creatinine, Serum 1.76 mg/dL (0.70-1.30); EST Glomerular Filtration Rate 42 mL/min (>60); Est Glom Filt Rate - Afr Amer 51 mL/min (>60); Estimated Creatinine Clearance 46.09 ml/min; Glucose 167 mg/dL (74-106); Potassium 3.8 mmol/L (3.5-5.1); Sodium Level 139 mmol/L (136-145)
[2019-01-11 14:12] LABS: Color, Urine Yellow (Yellow); Glucose, Dipstick 250 mg/dl (Normal); Ketone-Dipstick 50 mg/dl (Negative); Leukocyte Esterase-Dipstick 25 /ul (Negative); Nitrite-Dipstick Negative (Negative); Occult Blood-Urine 25 /ul (Negative); Protein-Dipstick 500 mg/dl (Negative); Specific Gravity, Urine 1.025 (1.002-1.030); Urine Bilirubin Dipstick Negative (Negative); Urine Clarity Sl. Cloudy (Clear); Urine Urobilinogen Normal (Normal)
[2019-01-11 14:21] LABS: Bacteria RARE /hpf (None Seen); Mucous, Urine 1+ /hpf (<or=2+); Red Blood Cells-Urine 0-5 SEEN /hpf (0-5); Squamous Epithelial Cells - UA 0-5 SEEN /hpf (0-5); White Blood Cells 0-5 SEEN /hpf (0-5)
--- NOTE | 2019-01-11 14:44 | NURSING ---
DR MONTES FOR DR MANUEL
--- NOTE | 2019-01-11 15:32 | ED.RN ---
BP NOTED TO BE ELEVATED PRIOR TO ADMIT TO PCU. DR MANUEL GAVE ORDER TO GIVE PT HOME BP MEDS. ORDER PLACED. PHA TO SEND MEDS TO ED TO ADMIN PRIOR TO ADMIT TO PCU.
[2019-01-11] MEDS: Lisinopril 20 MG Tablet PO (15:40)
[2019-01-11] MEDS: hydroCHLOROthiazide 25 MG Tablet 12.5 MG PO (15:40)
[2019-01-11] MEDS: cloNIDine HCl 0.1 MG Tablet PO ×2 (15:40→22:36)
--- NOTE | 2019-01-11 15:40 | NURSING ---
DR VERNON IN [facility]
--- NOTE | 2019-01-11 16:00 | ECHOCS_ITS ---
Reason For Study: ARRYTHYMIA Procedure This was a 2D Doppler, Color Flow transthoracic echocardiogram. Exam performed portable in patient room. Left Ventricle Mildly dilated left ventricle. The estimated ejection fraction is 35-40 %. Stage 1 diastolic dysfunction. Posterior-Basal: Severely hypokinetic. Infero-Basal: Severely Hypokinetic. Right Ventricle Normal size and thickness. Normal systolic function. Atria Normal left atrium. Normal right atrium. Normal atrial septum. Mitral Valve The mitral valve is structurally normal. No prolapse or stenosis seen. Tricuspid Valve Normal tricuspid valve. Unable to estimate RV systolic pressure due to insufficient tricuspid regurgitant envelope. Aortic Valve Normal aortic valve. Trisinus/trileaflet aortic valve. Pulmonic Valve Normal pulmonic valve. Great Vessels Normal aortic root. Normal arch. Normal inferior vena cava. Inferior vena cava collapse with sniff. Pericardium/Pleural No pericardial effusion. Medication Performed a rapid injection of agitated mix of 9 cc saline and 1cc air to assess for atrial septal defect. Diluted definity 2.5ml given slow IV push to enhance endocardial definition. MMode/2D Measurements & Calculations LVIDd: 4.9 cm IVSd: 1.2 cm Ao root diam: 3.1 cm LVIDs: 4.1 cm LVPWd: 0.99 cm RVDd: 2.9 cm FS: 16.0 % LAV(MOD-bp): 30.3 ml LVAd ap4: 28.3 cm2 SV(MOD-sp4): 35.2 ml LAV(MOD-bp) Indexed: 14.5 ml/m2 EDV(MOD-sp4): 86.5 ml LAV(MOD-sp2): 29.3 ml EDV(sp4-el): 90.2 ml LAV(MOD-sp4): 29.7 ml LVAs ap4: 20.6 cm2 ESV(MOD-sp4): 51.3 ml ESV(sp4-el): 51.9 ml EF(MOD-sp4): 40.7 % EF(sp4-el): 42.5 % SV(sp4-el): 38.3 ml LA A4 area: 12.6 cm2 LA dimension(2D): 3.7 cm RA A4 area: 9.4 cm2 Doppler Measurements & Calculations MV E max kulwinder: 27.4 cm/sec Lat Peak E' Kulwinder: 10.8 cm/sec Med Peak E' Kulwinder: 6.7 cm/sec MV A max kulwinder: 67.1 cm/sec E/E' lat: 2.5 E/E' med: 4.1 MV E/A: 0.41 Ao V2 max: 104.3 cm/sec LV V1 max: 86.0 cm/sec PA V2 max: 138.1 cm/sec Ao max P.4 mmHg LV V1 max P.0 mmHg Interpretation Summary Mildly dilated left ventricle. The estimated ejection fraction is 35-40 %. Stage 1 diastolic dysfunction. Posterior-Basal: Severely hypokinetic. Infero-Basal: Severely Hypokinetic. Unable to estimate RV systolic pressure due to insufficient tricuspid regurgitant envelope. Compared to echo report dated 04/13/2018, LV function has gone from 65% to 35-40%, with new inferior- posterior hypokinesis. The study was technically difficult. Contrast injection was performed. Ordering Physician: Cortez Pearce Referring Physician: Chema Haro Performed By: Vidhya De La Paz RDCS
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
[2019-01-11 16:15] LABS: Bedside Glucose 158 mg/dL (70-110)
--- NOTE | 2019-01-11 17:15 | MRI_ITS ---
STUDY: MRA NECK WITH AND WITHOUT CONTRAST REASON FOR EXAM: Male, 58 years old. Weakness left leg. Unable to walk. TECHNIQUE: 3-D giks-qh-mzzvwa (TOF) imaging was performed in an 1.5 T MRI scanner. IV Dotarem 17 was administered for the contrast enhanced images. Stairstep artifact. COMPARISON: None. FINDINGS: RIGHT CAROTID ARTERIES: Normal right common carotid artery (CCA). Normal right common carotid bulb. Normal origin of the right internal carotid (ICA) artery without a hemodynamically significant stenosis. Normal visualized cervical portion of the right internal carotid artery. Normal origin of the right external carotid artery (ECA). LEFT CAROTID ARTERIES: Normal left common carotid artery (CCA). Normal left common carotid bulb. Normal origin of the left internal carotid (ICA) artery without a hemodynamically significant stenosis. Normal visualized cervical portion of the left internal carotid artery. Normal origin of the left external carotid artery (ECA). VERTEBRAL ARTERIES: Normal antegrade flow within the bilateral vertebral artery without a hemodynamically significant stenosis. MRI/MRA Neck WITH and W/O Contrast IMPRESSION: Normal bilateral cervical carotid and vertebral arteries. Electronically Signed: Tariq Sahu MD at 21:21 EDT , Service support ,
--- NOTE | 2019-01-11 17:15 | MRI_ITS ---
STUDY: MRA OF THE HEAD WITHOUT CONTRAST REASON FOR EXAM: Male, 58 years old. Weakness left leg TECHNIQUE: 3-D mbww-ft-deksic (TOF) imaging was performed with MIPs. The study was performed unenhanced. COMPARISON: CT brain from today FINDINGS: Normal bilateral petrous carotid arteries. Moderate stenosis cavernous carotid artery bilaterally. There is non-visualization of the right A1 segment of the anterior cerebral arteries consistent with either aplastic development or an occlusion. Normal left A1 segments of the anterior cerebral artery. Normal intact anterior communicating artery (ACOM). Normal bilateral A2 segments of the anterior cerebral arteries. Normal right M1 and M2 segments of the middle cerebral arteries, with a normal M1 bifurcation. Normal left M1 and M2 segments of the middle cerebral arteries, with a normal M1 bifurcation. There is a persistent origin of the right posterior cerebral artery with absence of the P1 segment of the right posterior cerebral artery. There is non-visualization of the left posterior communicating artery (PCOM). Normal bilateral vertebral arteries. Normal basilar artery with a normal basilar bifurcation. The visualized bilateral superior cerebellar (SCA) arteries are normal. Normal bilateral P1, P2 and visualized P3 segments of the posterior cerebral arteries. There is no demonstrated aneurysm of the [place]. There is no major vessel occlusion or hemodynamically significant stenosis. There is no demonstrated abnormality of the visualized brain. MRI/MRA Head ONLY without Contrast IMPRESSION: Moderate stenosis of bilateral cavernous segment internal carotid arteries Electronically Signed: Tariq Sahu MD at 21:12 EDT , Service support ,
--- NOTE | 2019-01-11 17:15 | MRI_ITS ---
STUDY: MRI BRAIN WITHOUT CONTRAST REASON FOR EXAM: Male, 58 years old. Weakness left leg and unable to walk. TECHNIQUE: Standardized multiplanar fat and water weighted pulse sequences were obtained. COMPARISON: CT brain January 11, 2019 FINDINGS: There is mild cerebral atrophy with widening of the extra-axial spaces and ventricular dilatation. There are multiple white matter hyperintensities, distributed throughout the deep white matter tracts of the cerebral hemispheres, consistent with moderate chronic white matter ischemic changes. Mild restricted diffusion cingulate gyrus on the right. Normal bilateral basal ganglia. Normal thalami. There is no extra-axial fluid accumulation. Normal flow voids within the major intracranial circulation suggesting patency by spin echo criteria. Normal sella turcica, pituitary gland, infundibular stalk, optic chiasm and hypothalamus. Normal tectal plate and pineal gland. Normal midbrain, willis and medulla. Normal cerebellum. Normal basal cisterns. Normal bilateral temporal bones. Normal bilateral internal auditory canals. No demonstrated orbital abnormality, within the constraints of a routine brain study. Normal visualized paranasal sinuses. Normal calvarium and skull base. Normal visualized soft tissue structures. Normal visualized upper cervical spine. MRI/Brain without Contrast IMPRESSION: Acute or subacute infarct right anterior cerebral artery territory. Electronically Signed: Tariq Sahu MD at 21:01 EDT , Service support ,
--- NOTE | 2019-01-11 17:35 | HP.PCM_ITS ---
Problem List (1) CVA (cerebral vascular accident) Status: Acute Qualifiers: CVA mechanism: unspecified Qualified Code(s): I63.9 - Cerebral infarction, unspecified (2) Syncope and collapse Status: Acute History of Present Illness Date of Admission: 01/11/19 Chief Complaint: syncope The patient is a 58 year old M presents with syncope. Patient states that yesterday, he was in his normal state of health up and walking and doing well. At night, as he usually does, patient sleeps in his recliner. This morning, patient had a urinate and was trying to get up out of his recliner and then was just went unresponsive and awoke in his recliner having hit his head. Patient noted that his left leg was unresponsive and patient presented to the emergency room. In the emergency room, patient had a head CT that showed no acute process. Patient was admitted under syncopal diagnosis. Patient states that he has been weak in his left lower extremity since he awoke but the ER physician documented 5 out of 5 upper and lower extremity strength from their physical exam. Patient is never had a stroke before. [] Past Medical History Past Medical History (Chronic Problems): Chronic Problems Noncompliance with diabetes treatment (Chronic) Back pain (Chronic) HTN (hypertension) (Chronic) Anxiety (Chronic) Depression (Chronic) History of lumbar fusion (Chronic) Diabetes mellitus (Chronic) Medical History: Medical History (Last Reviewed 01/11/19 @ 17:37 by Braulio Akins DO) Syncope (Acute) R55 Bradycardia (Acute) R00.1 Intractable nausea and vomiting (Resolved) R11.2 Noncompliance with diabetes treatment (Chronic) Z91.19 Back pain (Chronic) M54.9 FLORY (acute kidney injury) (Acute) N17.9 Nonketotic hyperglycinemia (Resolved) E72.51 Nausea (Resolved) R11.0 HTN (hypertension) (Chronic) I10 Abdominal pain (Resolved) R10.9 Hematochezia (Resolved) K92.1 Anxiety (Chronic) F41.9 Depression (Chronic) F32.9 Diabetes mellitus (Chronic) E11.9 Allergies nifedipine [From Adalat] Allergy (Verified 01/11/19 10:45) Unknown Home Medications: Ambulatory Orders Medication Instructions Recorded Omeprazole [Prilosec] 40 mg PO DAILY 01/27/15 Fenofibrate [Tricor] 45 mg PO DAILY 08/04/16 Insulin Aspart [Novolog Flexpen] See Protocol SQ TIDCM 08/04/16 Diazepam [Valium] 5 mg PO BID PRN PRN 04/06/18 Duloxetine Hcl [Cymbalta] 60 mg PO DAILY #30 capsule. 04/10/18 Clonidine HCl 0.1 mg PO BID 04/12/18 hydroCHLOROthiazide 12.5 mg PO DAILY #30 cap 04/15/18 [Hydrochlorothiazide] insulin glargine (U-300) conc. 300 35 unit SC DAILY@2000 ml 05/30/18 unit/mL (1.5 mL) subcutaneous pen lisinopril 20 mg tablet 20 mg PO DAILY 05/30/18 Pregabalin 150 mg PO BID 01/11/19 Surgical History: Surgical History (Last Reviewed 01/11/19 @ 17:37 by Braulio Akins DO) History of lumbar fusion (Chronic) Z98.890 History of back surgery Z98.890 History of umbilical hernia repair Z98.890, Z87.19 Surgical History: - - Back Surgery 198906/29/95. He had a hernia repair May 07, 2008 Psychiatric History: Anxiety, Depression - severe Smoking Status: Current some day smoker Tobacco Use: Pipe Alcohol: Rare Drugs: None - *Family History Paternal Family History: Family History (Last Reviewed 01/11/19 @ 17:37 by Braulio Akins DO) Father Heart disease Son Kidney disease History Items: Heart Disease, Hypertension, - - CAD; cerebral hemorrhage. Maternal Family History: Family History (Last Reviewed 01/11/19 @ 17:37 by Braulio Akins DO) Father Heart disease Son Kidney disease History Items: - - suicide, depression. otherwise history unknown Review of Systems Constitutional: Denies: Anorexia, Chills, Fever, Night Sweats Eyes: Denies: Blurred vision, Double vision HEENT: Denies: Head Aches, Sinus Congestion, Sinus Drainage Cardiovascular: Denies: Chest Pain, Palpitations Respiratory: Denies: Cough, Shortness of breath at rest, Sputum production Gastrointestinal: Reports: Vomiting - 5 times today. Denies: Abdominal Pain, Nausea Genitourinary: Denies: Dysuria Musculoskeletal: Denies: Joint Pain, Joint Tenderness Skin: Denies: Dryness, Jaundice Neurological: Reports: Focal weakness, Headaches. Denies: Blurred vision, Double vision, Numbness, Tingling Psychiatric: Denies: Anxiety, Depression Endocrine: Denies: Change in Body Habitus, Heat/ Cold Intolerance Hematologic/ Lymphatic: Denies: Easy Bruising, Easy Bleeding Comment: A 10 point review of systems were negative except as mentioned in the history of present illness and the other review of systems. VTE Information - Inpt Only VTE Present on Admission: No VTE Mechan Device Prophylaxis: None VTE Pharm Prophylaxis ordered?: Yes Patient Problems: Active and Suspected Problems Syncope and collapse (Acute) CVA (cerebral vascular accident) (Acute) - Physical Exam General: Alert, Oriented x3, Cooperative, No apparent distress, Well developed, Well nourished HEENT: Atraumatic, EOMI, Normocephalic, - - Left pupil is slightly larger than the right pupil but both are reactive to light and accommodation. Oral: Moist Mucosa, No Gingival or Mucosal Lesions/ Ulcerations Neck: No Nodes, Thyroid Normal Size and Texture, - - No bruits Lungs: Clear to auscultation, Normal air movement, No rhonchi, No wheeze, No rales Cardiovascular: Regular rate, Regular Rhythm, Normal S1, Normal S2, No murmurs Abdomen: Bowel Sounds Present, Soft, Non Tender, Non-Distended, No Hepato- splenomegaly Extremities: No edema, No Calf Tenderness Skin: No rashes, No breakdown, - - Numerous tattoos throughout Musculoskeletal: No Tenderness to Palpation of Joints or Extremities, No Muscle Wasting Neurological: Cranial nerves II-XII grossly intact, Sensory exam intact to light touch and pain, - - Muscle strength 5 out of 5 in the right upper and right lower extremity. 4-5 in the left upper extremity and 1 out of 5 in the left lower extremity Psych/Mental Status: Normal Affect, Appropriate Vital Signs Temp Pulse Resp BP Pulse Ox 36.7 C 97 18 172/116 H 98 01/11/19 16:05 01/11/19 16:35 01/11/19 16:05 01/11/19 16:05 01/11/19 16:05 Oxygen Delivery Method Room Air Weight: 88.269 kg Body Mass Index (BMI) 27.9 Finger Stick Blood Glucose 122 Laboratory Tests Past 24 Hrs 10/02/19 10/02/19 10/02/19 11:25 11:25 11:25 WBC 11.5 H RBC 5.77 Hgb 17.1 H Hct 50.6 MCV 87.7 MCH 29.6 MCHC 33.8 RDW Std Deviation 42.2 RDW Coeff of Jr 13.2 Plt Count 154 MPV 12.6 H Immature Gran % (Auto) 1.500 H Neut % (Auto) 80.4 H Lymph % (Auto) 10.6 L [place] % (Auto) 5.1 Eos % (Auto) 1.5 Baso % (Auto) 0.9 Absolute Neuts (auto) 9.3 H Absolute Lymphs (auto) 1.22 Nucleated RBC % 0 PT 13.2 INR 1.0 APTT 25.0 Sodium 139 Potassium 3.8 Chloride 100 Carbon Dioxide 30.0 Anion Gap 9 BUN 27 H Creatinine 1.76 H Estim Creat Clear Calc 46.09 Est GFR (MDRD) Af Amer 51 L Est GFR (MDRD) Non-Af 42 L BUN/Creatinine Ratio 15.3 Glucose 167 H Calcium 10.1 Troponin I 0.039 Urine Color Urine Clarity Urine pH Ur Specific [place] Urine Protein Urine Glucose (UA) Urine Ketones Urine Occult Blood Urine Nitrite Urine Bilirubin Urine Urobilinogen Ur Leukocyte Esterase Urine RBC Urine WBC Ur Squamous Epith Cells Urine Bacteria Urine Mucus 01/11/19 01/11/19 14:00 16:35 WBC RBC Hgb Hct MCV MCH MCHC RDW Std Deviation RDW Coeff of Jr Plt Count MPV Immature Gran % (Auto) Neut % (Auto) Lymph % (Auto) [place] % (Auto) Eos % (Auto) Baso % (Auto) Absolute Neuts (auto) Absolute Lymphs (auto) Nucleated RBC % PT INR APTT Sodium Potassium Chloride Carbon Dioxide Anion Gap BUN Creatinine Estim Creat Clear Calc Est GFR (MDRD) Af Amer Est GFR (MDRD) Non-Af BUN/Creatinine Ratio Glucose Calcium Troponin I 0.050 H Urine Color Yellow Urine Clarity Sl. Cloudy Urine pH 6.0 Ur Specific [place] 1.025 Urine Protein 500 H Urine Glucose (UA) 250 H Urine Ketones 50 H Urine Occult Blood 25 H Urine Nitrite Negative Urine Bilirubin Negative Urine Urobilinogen Normal Ur Leukocyte Esterase 25 H Urine RBC 0-5 SEEN Urine WBC 0-5 SEEN Ur Squamous Epith Cells 0-5 SEEN Urine Bacteria RARE Urine Mucus 1+ POC Glucose 01/11/19 16:09 POC Glucose 158 H Clinical Impression(s) from Imaging Studies Brain CT 01/11/19 11:15 IMPRESSION: Chronic involutional changes of the brain. Electronically Signed: You Thorpe, at 12:34 EDT , Service support , Chest X-Ray 01/11/19 11:15 IMPRESSION: No acute abnormality is seen. Electronically Signed: You Thorpe, at 12:29 EDT , Service support , Assessment/Plan All Active Problems Syncope and collapse (Acute) CVA (cerebral vascular accident) (Acute) Syncope (Acute) Bradycardia (Acute) Intractable nausea and vomiting (Resolved) FLORY (acute kidney injury) (Acute) Nonketotic hyperglycinemia (Resolved) Nausea (Resolved) Abdominal pain (Resolved) Hematochezia (Resolved) 1. Presumed acute stroke * Time of onset is unknown * NIH 4 for weakness in LUE and LLE * Start aspirin, will give 325 and then 81 mg thereafter. Start high intensity statin * Follow-up MRI of the brain, MRA of the head neck, echocardiogram. Physical and occupational therapy evaluate and treat. Neurology consultation. * If the above tests do not yield any acute process consider imaging of the lumbar spine. May be comp gated given the patient has steel plates apparently in his back. 2. Syncope * Unsure if this is true syncopal episode as it was not witnessed but is a possible that the patient may try to stand up and his leg was weak and he just fell and hit his head having a concussion so he has antecedent amnesia * Cardiology on board and stress test ordered 3. VTE prophylaxis: Moderate risk. Enoxaparin. 4. Abnormal UA: Patient has 25 leukocyte esterase but nothing to suggest a urinary tract infection. 5. Diabetes mellitus type 2: Sliding scale insulin for now. Check an A1c. Code Visit Inpatient E&M: 30912 Init Hosp L3
[2019-01-11] MEDS: Pregabalin 75 MG Capsule 150 MG PO (22:35)
[2019-01-11] MEDS: Heparin Injection (Vial) 5,000 UNIT/ML VIAL 5000 UNIT SC (22:35)
[2019-01-11] MEDS: Insulin Lispro 100 UNIT/ML INSULN.PEN SC (22:36)
[2019-01-11] MEDS: Atorvastatin Calcium 80 MG Tablet PO (22:36)
[2019-01-11] MEDS: Glucerna Shake 120 ML LIQUID PO (22:37)
[2019-01-11 23:00] LABS: Bedside Glucose 245 mg/dL (70-110)
[2019-01-11] MEDS: Ondansetron 4 MG/2 ML Vial IV (23:37)
[2019-01-12] VITALS (12 sets, daily range): BP systolic 121–186; BP diastolic 71–104; PULSE 77–101; RESP 14–18; TEMP 36.5–36.8; O2SAT 94–99
[2019-01-12 03:31] LABS: Cholesterol 238 mg/dL (200); High Density Lipoprotein 42 mg/dL; Triglycerides 219 mg/dL; Very Low Density Lipoprotein 44 mg/dL (5-40)
--- NOTE | 2019-01-12 05:55 | EKG12_ITS ---
Test Reason : AM EKG Blood Pressure : / mmHG Vent. Rate : 094 BPM Atrial Rate : 094 BPM P-R Int : 164 ms QRS Dur : 114 ms QT Int : 394 ms P-R-T Axes : 069 -17 -18 degrees QTc Int : 492 ms Normal sinus rhythm Possible Left atrial enlargement Left ventricular hypertrophy Inferior infarct , age undetermined Abnormal ECG When compared with ECG of 11-JAN-2019 11:45, MANUAL COMPARISON REQUIRED, DATA IS UNCONFIRMED Confirmed by CALISTA VERNON ([id number]), loan expeditor LINDSAY ABBASI ([id number] on 01/17/2019 1:33:43 PM Referred By: Chema Haro Confirmed By:CALISTA VERNON
[2019-01-12] MEDS: cloNIDine HCl 0.1 MG Tablet PO ×2 (06:26→21:56)
[2019-01-12] MEDS: Aspirin 81 MG TAB.CHEW PO (06:26)
[2019-01-12] MEDS: Lisinopril 20 MG Tablet PO (06:26)
[2019-01-12 06:45] LABS: Bedside Glucose 293 mg/dL (70-110)
[2019-01-12] MEDS: Ondansetron 4 MG/2 ML Vial IV (08:04)
--- NOTE | 2019-01-12 08:54 | PN.CARD_ITS ---
Subjectve: Patient seen and examined this morning. Dobutamine echo canceled due to acute CVA found on MRI. Patient had episodes of vomiting this morning. Telemetry negative. Troponins are indeterminate at this time. Echocardiogram is pending. No chest pain or angina overnight. CVA work-up ongoing. Objective: Vital Signs Temp Pulse Resp BP Pulse Ox 97.7 F L 100 16 165/97 H 98 01/12/19 08:30 01/12/19 08:30 01/12/19 08:30 01/12/19 08:30 01/12/19 08:30 Oxygen Delivery Method Room Air Weight: 194 lb 9.6 oz Body Mass Index (BMI) 27.9 Finger Stick Blood Glucose 122 Intake and Output for Last 24 Hours 01/10/19 01/11/19 01/12/19 23:59 23:59 23:59 Intake Total 240 / 240 Output Total 550 / 550 200 / 200 Balance -310 / -310 -200 / -200 General: Awake, Alert, Oriented x 3 HEENT: PERRL, EOMI, Sclera Non Icteric Neck: Supple, Good ROM, No Lymph Node Enlargement Lungs: Clear to auscultation Cardiovascular: Regular Rhythm, Normal S1, Normal S2, No Murmurs, No Rubs, No Gallops Vascular: No Carotid Bruits, Normal Femoral Pulses, Normal Radial Pulses, Normal Dorsalis Pedal Pulse, Normal Posterior Tibial Pulses Abdomen: Bowel Sounds Present, Soft, Non Tender, No HSM, No Organomegaly Extremities: No Cyanosis, No Clubbing, No edema Neurological: No Focal Motor or Sensory Deficit 01/11/19 11:25: WBC 11.5 H, RBC 5.77, Hgb 17.1 H, Hct 50.6, MCV 87.7, MCH 29.6, MCHC 33.8, Plt Count 154, MPV 12.6 H, Immature Gran % (Auto) 1.500 H, Neut % (Auto) 80.4 H, Lymph % (Auto) 10.6 L, [place] % (Auto) 5.1, Eos % (Auto) 1.5, Baso % (Auto) 0.9, Absolute Neuts (auto) 9.3 H, Nucleated RBC % 0 01/11/19 11:25: PT 13.2, INR 1.0, APTT 25.0 01/11/19 11:25: Sodium 139, Potassium 3.8, Chloride 100, Carbon Dioxide 30.0, Anion Gap 9, BUN 27 H, Creatinine 1.76 H, Est GFR (MDRD) Af Amer 51 L, Est GFR (MDRD) Non-Af 42 L, BUN/Creatinine Ratio 15.3, Glucose 167 H, Calcium 10.1, Troponin I 0.039 01/11/19 14:00: Urine Color Yellow, Urine Clarity Sl. Cloudy, Urine pH 6.0, Ur Specific [place] 1.025, Urine Protein 500 H, Urine Glucose (UA) 250 H, Urine Ketones 50 H, Urine Occult Blood 25 H, Urine Nitrite Negative, Urine Bilirubin Negative, Urine Urobilinogen Normal, Ur Leukocyte Esterase 25 H, Urine RBC 0-5 SEEN, Urine WBC 0-5 SEEN 01/11/19 16:35: Troponin I 0.050 H 01/11/19 20:34: Troponin I 0.053 H 01/11/19 22:25: Troponin I 0.054 H 01/12/19 02:45: Triglycerides 219 H, Cholesterol 238 H, LDL Cholesterol 152 H, VLDL Cholesterol 44 H, HDL Cholesterol 42 01/12/19 02:45: Hemoglobin A1c 9.0 H 01/12/19 02:45: Troponin I 0.033 Rhythm: EKG: ECHO: Pending Stress Test: Cardiac Cath: PCI: CT Surgery: Holter monitor: EPS: PPM: CXR: Chest CT Scan: Medical Necessity - Tobacco Use Smoking Status: Current some day smoker Tobacco Use: Pipe Assessment/Plan 1. Alteration of consciousness: I do not get the impression the patient had a true syncopal event either on this admission or on his previous admission in April 2018. It appears the patient has forgetfulness with respect to his medications, as well as what might appear to be a urinary tract infection possibly affecting his mental status as well. In addition, the patient had a work-up in April 2018 including an echocardiogram which showed normal LV function as well as a 30-day event monitor which was essentially negative. Nonetheless the patient now presents with an alteration of consciousness, a wound in his left lower extremity, significant decreased muscle strength of his left lower extremity and much deeper inferior Q waves consistent with inferior/posterior wall myocardial infarction. In addition, the patient is on clonidine therapy at home which may have induced bradycardia possibly causing syncopal event as well. I recommend the patient be admitted to the PCU telemetry iyn, be ruled out for myocardial infarction, treat his urinary tract infection as well as his hyperglycemia and acute on chronic renal failure, as well as repeat his 2D echo with Doppler to determine if he has had a previous inferior/posterior wall myocardial infarction in the interim since April 2018. In the interim, the patient had an MRI of his brain which demonstrates the following: Acute or subacute infarct right anterior cerebral artery territory. His dobutamine echocardiogram was canceled due to the above CVA. 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 Also recommend neurological consultation. It is uncertain when he had a CVA, so it is doubtful the patient is a TPA candidate. 2. Hypertension: Patient has uncontrolled hypertension but has been off his clonidine for the past 2 days. The patient was given clonidine/CTZ in the emergency room and attempt to normalize his blood pressure. Clonidine may not be the best medication for this patient given its side effects of bradycardia as well as its rebound hypertension when it is omitted from the patient's pharmaceutical regimen. Patient does have chronic renal insufficiency so ALYSSA inhibitor and ARB's may be used cautiously with respect to his chronic renal insufficiency. Continue lisinopril. A better compromise might be to wean him off his clonidine, and replace it with Coreg 3.125 mg p.o. twice daily and titrate up from there. The alpha blockade component of Coreg may assist with afterload reduction and antihypertensive therapy. 3. Hyperlipidemia: LDL is 152, and HDL is 42. Agree with high intensity statin based therapy with Lipitor 80 mg daily. Repeat lipid profile in 6 weeks time. 4. Right lower extremity weakness: Patient had a confirmed CVA either acute or subacute in the right anterior cerebral artery territory to explain his left upper and left lower extremity weakness. Recommend neurological consultation. 5. Thank you very much for the opportunity to participate in the cardiac care of your patient. We will await echo results. No plans for stress testing until he is recovered from his CVA. Code Visit Inpatient E&M: 02911 Subs Hosp L2
[2019-01-12] MEDS: Heparin Injection (Vial) 5,000 UNIT/ML VIAL 5000 UNIT SC ×2 (09:49→21:55)
[2019-01-12] MEDS: hydroCHLOROthiazide 12.5mg 12.5 MG PO (09:49)
[2019-01-12] MEDS: Pantoprazole Sodium 40 MG Tablet PO (09:49)
[2019-01-12] MEDS: DULoxetine Hcl 60 MG Capsule PO (09:49)
[2019-01-12] MEDS: Pregabalin 75 MG Capsule 150 MG PO ×2 (09:52→21:56)
--- NOTE | 2019-01-12 09:58 | PN.CARD_ITS ---
Subjectve: The patient is awake and alert. He has main concern at this time is that he has difficulty moving his left lower extremity especially his foot. Objective: Vital Signs Temp Pulse Resp BP Pulse Ox 97.7 F L 100 16 165/97 H 98 01/12/19 08:30 01/12/19 08:30 01/12/19 08:30 01/12/19 08:30 01/12/19 08:30 Oxygen Delivery Method Room Air Weight: 194 lb 9.6 oz Body Mass Index (BMI) 27.9 Finger Stick Blood Glucose 122 Intake and Output for Last 24 Hours 01/10/19 01/11/19 01/12/19 23:59 23:59 23:59 Intake Total 240 / 240 Output Total 550 / 550 200 / 200 Balance -310 / -310 -200 / -200 General: Awake, Alert, Oriented x 3, Cooperative, No Acute Distress HEENT: Atraumatic, Normocephalic, PERRL, EOMI, Sclera Non Icteric Oral: Moist Mucosa Neck: Supple, Good ROM, No JVD Lungs: Clear to auscultation Cardiovascular: Regular Rhythm, Normal S1, Normal S2 Abdomen: Bowel Sounds Present, Soft, Non Tender Psych/Mental Status: Appropriate 01/11/19 11:25: WBC 11.5 H, RBC 5.77, Hgb 17.1 H, Hct 50.6, MCV 87.7, MCH 29.6, MCHC 33.8, Plt Count 154, MPV 12.6 H, Immature Gran % (Auto) 1.500 H, Neut % (Auto) 80.4 H, Lymph % (Auto) 10.6 L, [place] % (Auto) 5.1, Eos % (Auto) 1.5, Baso % (Auto) 0.9, Absolute Neuts (auto) 9.3 H, Nucleated RBC % 0 01/11/19 11:25: PT 13.2, INR 1.0, APTT 25.0 01/11/19 11:25: Sodium 139, Potassium 3.8, Chloride 100, Carbon Dioxide 30.0, Anion Gap 9, BUN 27 H, Creatinine 1.76 H, Est GFR (MDRD) Af Amer 51 L, Est GFR (MDRD) Non-Af 42 L, BUN/Creatinine Ratio 15.3, Glucose 167 H, Calcium 10.1, Troponin I 0.039 01/11/19 14:00: Urine Color Yellow, Urine Clarity Sl. Cloudy, Urine pH 6.0, Ur Specific [place] 1.025, Urine Protein 500 H, Urine Glucose (UA) 250 H, Urine Ketones 50 H, Urine Occult Blood 25 H, Urine Nitrite Negative, Urine Bilirubin Negative, Urine Urobilinogen Normal, Ur Leukocyte Esterase 25 H, Urine RBC 0-5 SEEN, Urine WBC 0-5 SEEN 01/11/19 16:35: Troponin I 0.050 H 01/11/19 20:34: Troponin I 0.053 H 01/11/19 22:25: Troponin I 0.054 H 01/12/19 02:45: Triglycerides 219 H, Cholesterol 238 H, LDL Cholesterol 152 H, VLDL Cholesterol 44 H, HDL Cholesterol 42 01/12/19 02:45: Hemoglobin A1c 9.0 H 01/12/19 02:45: Troponin I 0.033 Rhythm: Sinus rhythm Medical Necessity - Tobacco Use Smoking Status: Current some day smoker Tobacco Use: Pipe Assessment/Plan 1. Syncope Based upon the patient's original cardiovascular consultation there appeared to be concerns that the patient did not have a true syncopal event but may have had alteration in his level of consciousness. He has been undergoing evaluation and care. From a cardiovascular standpoint he has been monitored. His cardiac rhythm has remained sinus rhythm. From a noncardiac standpoint he has been evaluated neurologically. Based upon his neurologic studies there are concerns of a CVA event. Thus neurology consultation is pending at this time. 2. Abnormal cardiac enzymes The patient does have abnormal cardiac enzymes. The troponin I levels were indeterminant. This may be secondary to an acute neurologic event as the patient has not had any other definitive findings suggesting an underlying acute cardiovascular event. He will continue to be monitored. An echocardiogram is pending to further evaluate his left ventricular wall motion and systolic function. 3. Hyperlipidemia The patient will continue lipid-lowering therapy as deemed appropriate. 4. Hypertension The patient does have history of hypertension. He may need further evaluation and care. Neurology would be appreciated with respect to his blood pressure control in light of what appears to be an acute CVA. 5. CVA The patient does appear to have evidence compatible with an acute CVA. He continues evaluation care as noted above. Neurology has been consulted. This note was generated using a voice recognition system and there may be incorrect words, spelling or punctuation that were not noted when reviewing the office note prior to saving.
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
[2019-01-12] MEDS: Insulin Lispro 100 UNIT/ML INSULN.PEN SC ×4 (11:35→21:55)
[2019-01-12 11:41] LABS: Bedside Glucose 327 mg/dL (70-110)
--- NOTE | 2019-01-12 12:23 | CASEMGMT ---
Assessment- SW completed assessment with patient. His was also present. Living situation- Patient lives with his in a multi-level home. However, patient is set up on 1 level except for a bathtub. There are 3 very steep entry steps. Patient has fallen down these steps many times as his legs buckle. PCP: Dr Chema Mckeon Specialists: None Pharmacy: [facility] DME: cane and rollator ADL's/IADL's: Patient has been using his cane and walker. He receives assistance with his meds, driving, cleaning, and cooking. Past SNF/rehab: None Past HH: None LW: Patient does not have, but would like to complete document POA: Patient does not have, but would like to complete document Plan: SW met with patient and his . Patient was very tearful throughout whole assessment. He is frustrated that he cannot feel his leg, he cannot walk, he is incontinent now. He is worried about finances. He went through all of the family members he has lost. He said his head is just not right. SW tried to encourage him to take things one day at a time. SW let him know he will be working with therapy and this often helps with recovering function, however, SW cannot promise anything as SW is not a medical professional. SW did encourage him to try and be positive as there is hope. SW asked patient and his about how long they have been and they said 33 years. SW acknowledged the difficulty of the situation for both of them. SW told him that he will need to go somewhere at discharge for rehab. SW told them SW can give them a list of local facilities. At that time the PA then came into the room and the SW stepped out. Lauren HERNANDEZ MSW
[2019-01-12] MEDS: Clopidogrel Bisulfate 75 MG Tablet PO (13:36)
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
--- NOTE | 2019-01-12 15:22 | CASEMGMT ---
SW went back to patient's room to do PHQ-9 and give him lists of rehab facilities and SNF's. Patient had a visitor so SW did not do PHQ-9 and will complete tomorrow. SW did give patient lists. He said he and his talked about it and they want him to stay at [facility] to do his rehab. SW explained that his insurance will need to approve him before he would be able to go. Lauren HERNANDEZ MSW
[2019-01-12 19:36] LABS: Bedside Glucose 291 mg/dL (70-110)
[2019-01-12] MEDS: Glucerna Shake 120 ML LIQUID PO (21:54)
[2019-01-12] MEDS: Atorvastatin Calcium 80 MG Tablet PO (21:56)
[2019-01-12 22:06] LABS: Bedside Glucose 270 mg/dL (70-110)
[2019-01-13 03:02] VITALS: PULSE 64
[2019-01-13 03:15] VITALS: BP 104/63; PULSE 69; RESP 16; TEMP 36.7; O2SAT 97
[2019-01-13 07:15] VITALS: BP 124/78; PULSE 70; RESP 18; TEMP 36.6; O2SAT 97
[2019-01-13 07:22] VITALS: O2SAT 95
[2019-01-13 07:36] VITALS: PULSE 70
[2019-01-13] MEDS: Insulin Lispro 100 UNIT/ML INSULN.PEN SC ×4 (08:40→11:20)
[2019-01-13] MEDS: Pantoprazole Sodium 40 MG Tablet PO (08:41)
[2019-01-13] MEDS: cloNIDine HCl 0.1 MG Tablet PO (08:41)
[2019-01-13] MEDS: Clopidogrel Bisulfate 75 MG Tablet PO (08:42)
[2019-01-13] MEDS: Sertraline 50 MG Tablet 25 MG PO (08:42)
[2019-01-13] MEDS: DULoxetine Hcl 30 MG Capsule PO (08:44)
[2019-01-13] MEDS: Glucerna Shake 120 ML LIQUID PO (08:45)
[2019-01-13] MEDS: Heparin Injection (Vial) 5,000 UNIT/ML VIAL 5000 UNIT SC (08:46)
[2019-01-13] MEDS: Pregabalin 75 MG Capsule 150 MG PO (08:46)
[2019-01-13 08:51] LABS: Bedside Glucose 277 mg/dL (70-110)
--- NOTE | 2019-01-13 09:15 | CASEMGMT ---
SW called [facility] post acute referral line and asked that the pre-cert please be started for patient as therapy notes are in the computer. Plan: [facility] 4th floor rehab pending insurance approval. Lauren HUGHES
--- NOTE | 2019-01-13 10:13 | PCM.PN.CARD ---
Subjectve: Patient slowly improving, is able to marginally move his left toes, and his proximal thigh muscles to move his leg. Unable to bend at the ankle or knee. No chest pain overnight. Objective: Vital Signs Temp Pulse Resp BP Pulse Ox 97.9 F 70 18 124/78 H 95 01/13/19 07:15 01/13/19 07:36 01/13/19 07:15 01/13/19 07:15 01/13/19 07:22 Oxygen Delivery Method Room Air Weight: 194 lb 9.597 oz Body Mass Index (BMI) 27.9 Finger Stick Blood Glucose 122 Intake and Output for Last 24 Hours 01/11/19 01/12/19 01/13/19 23:59 23:59 23:59 Intake Total 240 / 240 100 / 100 300 / 300 Output Total 550 / 550 200 / 200 Balance -310 / -310 -100 / -100 300 / 300 General: Awake, Alert, Oriented x 3 HEENT: PERRL, EOMI, Sclera Non Icteric Neck: Supple, Good ROM, No Lymph Node Enlargement Lungs: Clear to auscultation Cardiovascular: Regular Rhythm, Normal S1, Normal S2, No Murmurs, No Rubs, No Gallops Vascular: No Carotid Bruits, Normal Femoral Pulses, Normal Radial Pulses, Normal Dorsalis Pedal Pulse, Normal Posterior Tibial Pulses Abdomen: Bowel Sounds Present, Soft, Non Tender, No HSM, No Organomegaly Extremities: No Cyanosis, No Clubbing, No edema Neurological: No Focal Motor or Sensory Deficit Rhythm: EKG: ECHO: Stress Test: Cardiac Cath: PCI: CT Surgery: Holter monitor: EPS: PPM: CXR: Chest CT Scan: Medical Necessity - Tobacco Use Smoking Status: Current some day smoker Tobacco Use: Cigarettes Assessment/Plan 1. Alteration of consciousness: I do not get the impression the patient had a true syncopal event either on this admission or on his previous admission in April 2018. It appears the patient has forgetfulness with respect to his medications, as well as what might appear to be a urinary tract infection possibly affecting his mental status as well. In addition, the patient had a work-up in April 2018 including an echocardiogram which showed normal LV function as well as a 30-day event monitor which was essentially negative. Nonetheless the patient now presents with an alteration of consciousness, a wound in his left lower extremity, significant decreased muscle strength of his left lower extremity and much deeper inferior Q waves consistent with inferior/posterior wall myocardial infarction. In addition, the patient is on clonidine therapy at home which may have induced bradycardia possibly causing syncopal event as well. LV dysfunction: The patient has evidence of LV dysfunction his echocardiogram along the inferior posterior wall consistent with his EKG. I would recommend holding off on coronary catheterization at this time given the patient's acute CVA. He has no anginal symptoms. I would however recommend a non-walking dobutamine echocardiogram as an outpatient once he is fully recovered from his CVA. If patient has any evidence of anterior lateral ischemia on that study, he may require diagnostic coronary angiogram. Coronary angiogram would be too high risk in the setting of a recent CVA. In the interim, the patient had an MRI of his brain which demonstrates the following: Acute or subacute infarct right anterior cerebral artery territory. His dobutamine echocardiogram was canceled due to the above CVA. 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 Also recommend neurological consultation. It is uncertain when he had a CVA, so it is doubtful the patient is a TPA candidate. 2. Hypertension: Patient has uncontrolled hypertension but has been off his clonidine for the past Several days. The patient was given clonidine/CTZ in the emergency room and attempt to normalize his blood pressure. Clonidine may not be the best medication for this patient given its side effects of bradycardia as well as its rebound hypertension when it is omitted from the patient's pharmaceutical regimen.However, if the patient is going to a residential facility, this can be given directly and consistently. His blood pressure is now optimized and his lucidity has improved. Patient does have chronic renal insufficiency so ALYSSA inhibitor and ARB's may be used cautiously with respect to his chronic renal insufficiency. Continue lisinopril. A better compromise might be to wean him off his clonidine, and replace it with Coreg 3.125 mg p.o. twice daily and titrate up from there. The alpha blockade component of Coreg may assist with afterload reduction and antihypertensive therapy.Would recommend holding off on changing his medications until he has recovered more fully from his cerebral accident. 3. Hyperlipidemia: LDL is 152, and HDL is 42. Agree with high intensity statin based therapy with Lipitor 80 mg daily. Repeat lipid profile in 6 weeks time. 4. Right lower extremity weakness: Patient had a confirmed CVA either acute or subacute in the right anterior cerebral artery territory to explain his left upper and left lower extremity weakness. Recommend neurological consultation. 5. Thank you very much for the opportunity to participate in the cardiac care of your patient. Patient may follow-up with Dr. Pearce going forward and do so in 4 to 6 weeks time. Code Visit Inpatient E&M: [id number] Subs Hosp L2
--- NOTE | 2019-01-13 10:18 | PN.CARD_ITS ---
Subjectve: The patient is awake and alert. He states he feels better today. He notes he is able to move his left lower extremity better today than yesterday. Objective: Vital Signs Temp Pulse Resp BP Pulse Ox 97.9 F 70 18 124/78 H 95 01/13/19 07:15 01/13/19 07:36 01/13/19 07:15 01/13/19 07:15 01/13/19 07:22 Oxygen Delivery Method Room Air Weight: 194 lb 9.597 oz Body Mass Index (BMI) 27.9 Finger Stick Blood Glucose 122 Intake and Output for Last 24 Hours 01/11/19 01/12/19 01/13/19 23:59 23:59 23:59 Intake Total 240 / 240 100 / 100 300 / 300 Output Total 550 / 550 200 / 200 Balance -310 / -310 -100 / -100 300 / 300 General: Awake, Alert, Oriented x 3, Cooperative, No Acute Distress HEENT: Atraumatic, Normocephalic, PERRL, EOMI, Sclera Non Icteric Oral: Moist Mucosa Neck: Supple, No JVD Lungs: Clear to auscultation Cardiovascular: Regular Rhythm, Premature Ectopic Beats, Normal S1, Normal S2 Abdomen: Bowel Sounds Present, Soft, Non Tender Extremities: No edema Psych/Mental Status: Appropriate Rhythm: Sinus rhythm; PVCs Echocardiogram: Interpretation Summary Mildly dilated left ventricle. The estimated ejection fraction is 35-40 %. Stage 1 diastolic dysfunction. Posterior-Basal: Severely hypokinetic. Infero-Basal: Severely Hypokinetic. Unable to estimate RV systolic pressure due to insufficient tricuspid regurgitant envelope. Compared to echo report dated 04/13/2018, LV function has gone from 65% to 35- 40%, with new inferior- posterior hypokinesis. The study was technically difficult. Contrast injection was performed. Medical Necessity - Tobacco Use Smoking Status: Current some day smoker Tobacco Use: Cigarettes Assessment/Plan 1. Syncope Based upon the patient's original cardiovascular consultation there appeared to be concerns that the patient did not have a true syncopal event but may have had alteration in his level of consciousness. He has been undergoing evaluation and care. From a cardiovascular standpoint he has been monitored. His cardiac rhythm has remained sinus rhythm with occasional PVCs. From a noncardiac standpoint he has been evaluated neurologically. Based upon his neurologic studies there are concerns of a CVA event. Thus neurology consultation is pending at this time. 2. Abnormal cardiac enzymes The patient does have abnormal cardiac enzymes. The troponin I levels were indeterminant. This may be secondary to an acute neurologic event as the patient has not had any other definitive findings suggesting an underlying acute cardiovascular event. He will continue to be monitored. And echocardiogram was performed. The results are as noted. Overall it appears his overall LV systolic function has decreased. At the present time he will need to continue evaluation care for his acute CVA. From a cardiovascular standpoint he will continue medical therapy for concerns of underlying cardiovascular disease which may include concerns for CAD as well as an underlying cardiomyopathy. Over time, as he hopefully improves from his acute CVA standpoint then he may need to be considered for further noninvasive and/or invasive evaluation of his cardiovascular status. 3. Hyperlipidemia The patient will continue lipid-lowering therapy as deemed appropriate. 4. Hypertension The patient does have history of hypertension. He may need further evaluation and care. Neurology would be appreciated with respect to his blood pressure control in light of what appears to be an acute CVA. 5. CVA The patient does appear to have evidence compatible with an acute CVA. He continues evaluation care as noted above. Neurology has been consulted. This note was generated using a voice recognition system and there may be incorrect words, spelling or punctuation that were not noted when reviewing the office note prior to saving.
--- NOTE | 2019-01-13 10:43 | CASEMGMT ---
SW completed PHQ-9 with patient as he had a Stroke. Patient was tearful for some of the questions. He had to be re-directed numerous times to answer the questions. He openly admits he is very Depressed. SW spent some time talking with patient. He can move his legs and toes today and yesterday he could not do either. SW encouraged him to use these improvements to help him think positive. SW reminded him that yesterday he did not even think he would be able to move his leg ever again and now he is moving it. SW let him know we are waiting on his insurance to approve him for the inpatient rehab unit. SW let him know that if he gets approved for rehab there is a Warm In Worker on that unit that will continue to talk with him throughout his stay. He wants to complete Healthcare POA and LW documents, but he wants his present to help him with phone numbers. SW left the documents with him and told him to ask for SW when his comes in and/or SW will check back. Plan: [facility] 4th floor rehab unit pending insurance approval. Lauren HERNANDEZ MSW
[2019-01-13 11:15] VITALS: BP 112/74; PULSE 80; RESP 16; TEMP 36.6; O2SAT 96
[2019-01-13 11:30] LABS: Bedside Glucose 377 mg/dL (70-110)
--- NOTE | 2019-01-13 12:31 | DCINST_ITS ---
- Discharge Diagnoses Current Active Problems: Current Active and Chronic Problems (Last Reviewed 01/12/19 @ 10:44 by Adriel Elizabeth MD) Syncope and collapse (Acute) CVA (cerebral vascular accident) (Acute) You will use the following diet at home:: Calorie/Carbohydrate Controlled (specify 1200, 1400, etc) - 1800 glen / day, Cardiac Your food should be the consistency of: Regular Your liquids should be the consistency of: Regular/Thin Discharge Activity: Return to Normal Activity, May Not Drive - 2 Allergies/Adverse Reactions: Allergies nifedipine [From Adalat] Allergy (Verified 01/11/19 10:45) Unknown Medications to take at Discharge Omeprazole [Prilosec] 40 mg PO DAILY 05/08/14 Fenofibrate [Tricor] 45 mg PO DAILY 08/04/16 Diazepam [Valium] 5 mg PO BID PRN PRN 04/06/18 Clonidine HCl 0.1 mg PO BID 04/12/18 insulin glargine (U-300) conc. 300 unit/mL (1.5 mL) subcutaneous pen 35 unit SC DAILY@2000 ml 05/30/18 Pregabalin 150 mg PO BID 01/11/19 Aspirin E.C. [Ecotrin] 81 mg PO DAILY@0800 tab 01/13/19 Atorvastatin Calcium [Lipitor] 80 mg PO QHS tab 01/13/19 Carvedilol [Coreg (Beta Jeffrey)] 3.125 mg PO BID tab 01/13/19 Clopidogrel Bisulfate [Plavix] 75 mg PO DAILY tab 01/13/19 Duloxetine Hcl [Cymbalta] 30 mg PO DAILY cap 01/13/19 Glucerna Shake 120 ml PO 4X/DAY liquid 01/13/19 Insulin Lispro [Humalog KwikPen] 5 unit SUBCUT TIDAC insuln.pen 01/13/19 Insulin Lispro [Humalog KwikPen] See Protocol SUBCUT ACHS insuln.pen 01/13/19 Lisinopril [Zestril] 2.5 mg PO BID tab 01/13/19 Sertraline HCl [Zoloft] 25 mg PO DAILY tab 01/13/19 Primary Care Physician: Chema Mckeon DO [Primary Care Provider] - Please follow up with your Primary Care Physician in: 2 weeks Test Results: Test results from this visit will be discussed in further detail at your follow- up appointment, if applicable. Please Follow Up With: Adriel Elizabeth MD When: 3-4 weeks Please Follow Up With: Julian Dobbs MD When: as directed Please Follow Up With: Mental health counselling services When: 2 weeks
--- NOTE | 2019-01-13 12:47 | CASEMGMT ---
Received call from Bernie and patient was approved for the Inpatient Rehab Unit. SW let patient, his , RN, and PA know this information. Patient will go today. Plan: [facility] 4th floor Inpatient Rehab Unit Lauren HGUHES
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
== END 2019-01-13 13:39 | DRG 65 ==
LOC: ED 14:51 → PCU 17:32
PROVIDERS: Hospitalist; Admitting Provider Internal Medicine; Emergency Provider Emergency Medicine; Family Provider Family Medicine; PCP Family Medicine; Referring Provider Internal Medicine
DX: I63.521 Cerebral infarction due to unspecified occlusion or stenosis of right anterior cerebral artery (principal); I42.9 Cardiomyopathy, unspecified; I12.9 Hypertensive chronic kidney disease with stage 1 through stage 4 chronic kidney disease, or unspecified chronic kidney disease; Z79.4 Long term (current) use of insulin; Z72.0 Tobacco use; E78.5 Hyperlipidemia, unspecified; E11.65 Type 2 diabetes mellitus with hyperglycemia; G83.14 Monoplegia of lower limb affecting left nondominant side; F32.9 Major depressive disorder, single episode, unspecified; Z98.1 Arthrodesis status; M54.9 Dorsalgia, unspecified; F41.9 Anxiety disorder, unspecified; N18.9 Chronic kidney disease, unspecified; R29.704 NIHSS score 4
CPT/HCPCS: 36415; 70450; 70544; 70549; 70551; 71045; 80048; 80061; 81001; 82962; 83036; 84484; 85025; 85610; 85730; 92610; 93005; 93306; 94762; 97162; 97166; 97802; 99285; 99406; A9575; J7030; J7040; Q9957; A4216; C8929; J2405

== ENCOUNTER 2019-01-13 13:50 | Inpatient (IN) | payer OTHER, MEDICARE, MEDICAID, SELFPAY ==
[2019-01-11 16:13] VITALS: BMI 27.9
[2019-01-13 14:17] VITALS: BP 119/78; PULSE 85; RESP 16; TEMP 36.6; O2SAT 94; BMI 28.0
--- NOTE | 2019-01-13 14:34 | PCM.HP.COS ---
History of Present Illness Date of Admission: 01/13/19 Chief Complaint: Debility secondary to right magdi infarct The patient is a 58 year old M with PMH of HTN, DM type II, anxiety, depression admitted to [facility] on 01/13/2019 for 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 On 01/11/2019, patient presented to [facility] due to syncopal episode and left leg weakness. Patient stated he was sitting up in his recliner and when he awoke he was laying on the floor, voiced hitting head. CT of head showed no acute findings. MRI brain without contrast showed acute or subacute infarct right MAGDI, without hemorrhage. 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 MRA of neck showed normal bilateral cervical carotid and vertebral arteries. Echocardiogram showed EF of 35 to 40%, stage I diastolic dysfunction, posterior?basal severely hypokinetic, and inferior basal severely hypokinetic, unable to estimate RV systolic pressure due to insufficient tricuspid regurgitant envelope. LDL 155, HgbA1c 9.0%. Developed FLORY: BUN/Cr 27/1.76. Patient on statin, plavix, and aspirin discontinued. No antihypertensives for 5 to 7 days post stroke unless systolic is 200. . Patient has history of positive snoring, daytime tiredness, awakens 1-2x/night for bathroom, and naps daily. Outpatient PSG study to be done, patient agreeable. Patient lives with spouse in a two-story house with first-floor set up, modified independent with ADLs, mobility with walker or cane, and driving to hospitalization. Past Medical History Past Medical History (Chronic Problems): Chronic Problems (Last Reviewed 01/12/19 @ 10:44 by Adriel Elizabeth MD) Noncompliance with diabetes treatment (Chronic) Back pain (Chronic) HTN (hypertension) (Chronic) Anxiety (Chronic) Depression (Chronic) History of lumbar fusion (Chronic) Diabetes mellitus (Chronic) Medical History: Medical History (Last Reviewed 01/12/19 @ 10:44 by Adriel Elizabeth MD) Syncope (Acute) R55 Bradycardia (Acute) R00.1 Intractable nausea and vomiting (Resolved) R11.2 Noncompliance with diabetes treatment (Chronic) Z91.19 Back pain (Chronic) M54.9 FLORY (acute kidney injury) (Acute) N17.9 Nonketotic hyperglycinemia (Resolved) E72.51 Nausea (Resolved) R11.0 HTN (hypertension) (Chronic) I10 Abdominal pain (Resolved) R10.9 Hematochezia (Resolved) K92.1 Anxiety (Chronic) F41.9 Depression (Chronic) F32.9 Diabetes mellitus (Chronic) E11.9 Allergies nifedipine [From Adalat] Allergy (Verified 01/11/19 10:45) Unknown Home Medications: Ambulatory Orders Medication Instructions Recorded Omeprazole [Prilosec] 40 mg PO DAILY 05/08/14 Fenofibrate [Tricor] 45 mg PO DAILY 08/04/16 Diazepam [Valium] 5 mg PO BID PRN PRN 04/06/18 Clonidine HCl 0.1 mg PO BID 04/12/18 insulin glargine (U-300) conc. 300 35 unit SC DAILY@2000 ml 05/30/18 unit/mL (1.5 mL) subcutaneous pen Pregabalin 150 mg PO BID 01/11/19 Atorvastatin Calcium [Lipitor] 80 mg PO QHS 01/13/19 Carvedilol [Coreg (Beta Jeffrey)] 3.125 mg PO BID 01/13/19 Clopidogrel Bisulfate [Plavix] 75 mg PO DAILY 01/13/19 Duloxetine Hcl [Cymbalta] 30 mg PO DAILY 01/13/19 Glucerna Shake 120 ml PO 4X/DAY 01/13/19 Heparin Injection 5,000 units SUBCUT BID 01/13/19 Insulin Lispro [Humalog KwikPen] 5 unit SUBCUT TIDAC 01/13/19 Insulin Lispro [Humalog KwikPen] See Protocol SUBCUT ACHS 01/13/19 Lisinopril [Zestril] 2.5 mg PO BID 01/13/19 Sertraline HCl [Zoloft] 25 mg PO DAILY 01/13/19 Surgical History: Surgical History (Last Reviewed 01/12/19 @ 10:44 by Adriel Elizabeth MD) History of lumbar fusion (Chronic) Z98.890 History of back surgery Z98.890 History of umbilical hernia repair Z98.890, Z87.19 Surgical History: - - Back Surgery 198906/29/95. He had a hernia repair May 07, 2008 Psychiatric History: Anxiety, Depression - severe Lives: Spouse/ Significant Other Smoking Status: Current some day smoker Tobacco Use: Chew - daily x 25 years, Pipe - 2-3/day x 25 years Alcohol: None Drugs: None - *Family History Paternal Family History: Family History (Last Reviewed 01/12/19 @ 10:45 by Adriel Elizabeth MD) Father Heart disease Son Kidney disease History Items: Heart Disease, Hypertension, - - CAD; cerebral hemorrhage. Maternal Family History: Family History (Last Reviewed 01/12/19 @ 10:45 by Adriel Elizabeth MD) Father Heart disease Son Kidney disease History Items: - - suicide, depression Review of Systems Constitutional: Denies: Chills, Fever, Weight Change Eyes: Denies: Blurred vision, Double vision, Vision Change HEENT: Reports: Dysphasia. Denies: Difficulty Hearing, Difficulty Swallowing, Visual Changes Cardiovascular: Denies: Chest Pain, Chest Pressure, Chest Tightness, Palpitations Respiratory: Denies: Cough, Shortness of Breath, Shortness of breath at rest, Sputum production Gastrointestinal: Denies: Abdominal Pain, Nausea, Vomiting Genitourinary: Denies: Dysuria Musculoskeletal: Denies: Joint Pain, Joint Tenderness Skin: Reports: - - scabs to lower legs Neurological: Reports: Change in Speech, Slurred speech - new after stroke, Numbness - chronic has neuropathy to bilateral feet and fingers to both hands, Tingling. Denies: Blurred vision, Double vision, Headaches Psychiatric: Reports: Anxiety, Depression VTE Information - Inpt Only VTE Present on Admission: Yes VTE Mechan Device Prophylaxis: Knee High REILLY Hose VTE Pharm Prophylaxis ordered?: Yes - Physical Exam General: Alert, Oriented x3, Cooperative HEENT: Atraumatic, PERRLA Oral: Moist Mucosa Neck: Supple, No JVD Lungs: Clear to auscultation, Normal air movement Cardiovascular: Regular rate, Regular Rhythm Abdomen: Bowel Sounds Present, Soft, Non Tender Extremities: No clubbing, No cyanosis, No edema Skin: - - abrasions to bilateral knees and shins Neurological: Cranial nerves II-XII grossly intact, Deep Tendon Reflexes 2+/4 and Symmetrical, Facial Droop - mild to left, Slurred Speech - mild, - - Motor strength RUE/RLE 5/5, LUE 4/5, LLE 1/5, sensations intact to bilateral feet/lower extremities from vivas down with tactile, voiced mild parasthesia to bilateral feet.- chronic per patient Psych/Mental Status: Normal Affect, Appropriate, Alert and oriented to time, place, person, mood and affect Vital Signs Temp Pulse Resp BP Pulse Ox 97.8 F 85 16 119/78 94 01/13/19 14:17 01/13/19 14:17 01/13/19 14:17 01/13/19 14:17 01/13/19 14:17 Oxygen Delivery Method Room Air Weight: 88.6 kg Body Mass Index (BMI) 28.0 Finger Stick Blood Glucose 122 Assessment/Plan All Active Problems (Last Reviewed 01/12/19 @ 10:44 by Adriel Elizabeth MD) Syncope and collapse (Acute) CVA (cerebral vascular accident) (Acute) Syncope (Acute) Bradycardia (Acute) Intractable nausea and vomiting (Resolved) FLORY (acute kidney injury) (Acute) Nonketotic hyperglycinemia (Resolved) Nausea (Resolved) Abdominal pain (Resolved) Hematochezia (Resolved) The patient is a 58 year old M with PMH of HTN, DM type II, anxiety, depression admitted to [facility] on 01/13/2019 for 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 On 01/11/2019, patient presented to [facility] due to syncopal episode and left leg weakness. Patient stated he was sitting up in his recliner and when he awoke he was laying on the floor, voiced hitting head. CT of head showed no acute findings. MRI brain without contrast showed acute or subacute infarct right MAGDI, without hemorrhage. 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 MRA of neck showed normal bilateral cervical carotid and vertebral arteries. Echocardiogram showed EF of 35 to 40%, stage I diastolic dysfunction, posterior?basal severely hypokinetic, and inferior basal severely hypokinetic, unable to estimate RV systolic pressure due to insufficient tricuspid regurgitant envelope. LDL 155, HgbA1c 9.0%. Developed FLORY: BUN/Cr 27/1.76. Patient on statin, plavix, and aspirin discontinued. No antihypertensives for 5 to 7 days post stroke unless systolic is 200. . Patient has history of positive snoring, daytime tiredness, awakens 1-2x/night for bathroom, and naps daily. Outpatient PSG study to be done, patient agreeable. Patient lives with spouse in a two-story house with first-floor set up, modified independent with ADLs, mobility with walker or cane, and driving to hospitalization. Plan - PT for mobility - OT for ADLs - ST for evaluation - Right MAGDI infarct- permissive htn 5-7 days, no antihypertensives unless SBP is 200, plavix, statin - HTN permissive htn - DM type II HgbA1c 9.0%, on lantus, humalog S.C, accuchecks ac/hs - Depression/anxiety cymbalta 30 mg x 13 days and zoloft 25 mg x13 days then increase to 50 mg, on valium prn - HLD LDL 155 on statin, fenofibrate - neuropathy- chronic per patient- no tx - GI/DVT prophylaxis on protonix/heparin, knee high reilly hose - Medical management per hospitalist- consult - FLORY Bun/Cr 27.1/1.76 - Analgesics as needed - Bowel protocol - Fall precautions - F/U with PCP, neurology, cardiology
[2019-01-13 16:16] VITALS: O2SAT 95
[2019-01-13 16:51] LABS: Bedside Glucose 328 mg/dL (70-110)
[2019-01-13] MEDS: Insulin Lispro 100 UNIT/ML INSULN.PEN SC ×3 (17:51→21:53)
[2019-01-13] MEDS: Glucerna Shake 120 ML LIQUID PO ×2 (17:55→21:51)
[2019-01-13 19:30] VITALS: BP 112/76; PULSE 78; RESP 18; TEMP 36.6; O2SAT 98
[2019-01-13 21:25] VITALS: BP 146/82; PULSE 75
[2019-01-13] MEDS: Heparin Injection (Vial) 5,000 UNIT/ML VIAL 5000 UNIT SC (21:52)
[2019-01-13] MEDS: cloNIDine HCl 0.1 MG Tablet PO (21:52)
[2019-01-13] MEDS: Senna/Docusate Sodium 1 Tablet 2 TABLET PO (21:52)
[2019-01-13] MEDS: Atorvastatin Calcium 80 MG Tablet PO (21:52)
[2019-01-13 21:56] LABS: Bedside Glucose 260 mg/dL (70-110)
[2019-01-13] MEDS: Pregabalin 75 MG Capsule 150 MG PO (22:05)
[2019-01-14 00:32] VITALS: BMI 28.0
[2019-01-14 06:57] LABS: Absolute Lymphocyte Count 1.96 X10^3/uL (0.83-4.51); Absolute Neutrophil Count 4.3 X10^3/uL (2.0-7.7); Basophil# 0.07 X10^3/uL; Eosinophil# 0.19 X10^3/uL; Eosinophils% 2.6 % (0-5); Hematocrit 43.8 % (40-54); Hemoglobin 14.8 g/dL (13.0-16.5); Lymphocyte # 1.96 X10^3/ul (4.0); Lymphocyte % 27.1 % (19-41); Mean Corp Hgb Conc 33.8 g/dL (32-36); Mean Corpuscular Hgb 29.3 pg (27.0-32.0); Mean Corpuscular Volume 86.7 fL (80-94); Mean Platelet Vol. 12.6 fl (6.2-12.0); Monocyte# 0.66 X10^3/uL; Monocyte% 9.1 % (0-10); NRBC Flagged by Analyzer 0 % (0-5); Neutrophil % 59.4 % (47-70); Platelet Count 141 K/mm3 (150-450); RBC Distribution Width SD 40.9 fl (35.1-43.9); Red Blood Count 5.05 M/mm3 (4.6-6.2); White Blood Count 7.2 K/mm3 (4.4-11.0)
[2019-01-14 07:06] LABS: Anion Gap 5 (5-15); BUN 60 mg/dL (7-18); BUN/Creat Ratio 30.2 RATIO (10-20); Calcium,Total 9.2 mg/dL (8.5-10.1); Chloride 100 mmol/L (98-107); Creatinine, Serum 1.99 mg/dL (0.70-1.30); EST Glomerular Filtration Rate 37 mL/min (>60); Est Glom Filt Rate - Afr Amer 44 mL/min (>60); Estimated Creatinine Clearance 40.76 ml/min; Glucose 278 mg/dL (74-106); Sodium Level 135 mmol/L (136-145)
[2019-01-14 07:06] LABS: Bedside Glucose 281 mg/dL (70-110)
[2019-01-14 08:00] VITALS: O2SAT 94
[2019-01-14] MEDS: Insulin Lispro 100 UNIT/ML INSULN.PEN SC ×5 (08:07→21:42)
[2019-01-14] MEDS: Sertraline 50 MG Tablet 25 MG PO (08:08)
[2019-01-14] MEDS: Heparin Injection (Vial) 5,000 UNIT/ML VIAL 5000 UNIT SC ×2 (08:09→21:35)
[2019-01-14] MEDS: Fenofibrate 48 MG Tablet PO (08:09)
[2019-01-14] MEDS: cloNIDine HCl 0.1 MG Tablet PO ×2 (08:09→21:34)
[2019-01-14] MEDS: Clopidogrel Bisulfate 75 MG Tablet PO (08:09)
[2019-01-14] MEDS: DULoxetine Hcl 30 MG Capsule PO (08:09)
[2019-01-14] MEDS: Pantoprazole Sodium 40 MG Tablet PO (08:09)
[2019-01-14] MEDS: Pregabalin 75 MG Capsule 150 MG PO ×2 (08:13→21:35)
[2019-01-14 10:00] VITALS: BP 147/76; PULSE 86; RESP 18; TEMP 36.6; O2SAT 95
--- NOTE | 2019-01-14 12:53 | PCM.PN.HOSP ---
Subjective: F/U CVA Feels good. Some increased movement in the LLE. Vitals/I&O's: Vital Signs Temp Pulse Resp BP Pulse Ox 36.6 C 86 18 147/76 H 95 01/14/19 10:00 01/14/19 10:00 01/14/19 10:00 01/14/19 10:00 01/14/19 10:00 Oxygen Delivery Method Room Air Weight: 88.6 kg Body Mass Index (BMI) 28.0 Finger Stick Blood Glucose 122 Intake and Output for Last 24 Hours 01/12/19 01/13/19 01/14/19 23:59 23:59 23:59 Intake Total 240 / 240 480 / 480 Balance 240 / 240 480 / 480 General: Alert, No apparent distress, - - on exercise bike HEENT: Atraumatic, Normocephalic Oral: Moist Mucosa, No Gingival or Mucosal Lesions/ Ulcerations Neck: No Nodes, Thyroid Normal Size and Texture Lungs: Clear to auscultation, Normal air movement, No rhonchi, No wheeze Cardiovascular: Regular rate, Regular Rhythm, Normal S1, Normal S2 Abdomen: Bowel Sounds Present, Soft, Non Tender, Non-Distended Extremities: No edema, No Calf Tenderness Skin: No rashes, No breakdown Neurological: Sensory exam intact to light touch and pain, - - minimal movment of LLE Psych/Mental Status: Normal Affect, Appropriate Laboratory Results 01/13/19 16:39: POC Glucose 328 H 01/13/19 21:47: POC Glucose 260 H 01/14/19 06:31: POC Glucose 281 H 01/14/19 06:45: WBC 7.2, RBC 5.05, Hgb 14.8, Hct 43.8, MCV 86.7, MCH 29.3, MCHC 33.8, RDW Std Deviation 40.9, RDW Coeff of Jr 13.0, Plt Count 141 L, MPV 12.6 H, Immature Gran % (Auto) 0.800, Neut % (Auto) 59.4, Lymph % (Auto) 27.1, [place] % (Auto) 9.1, Eos % (Auto) 2.6, Baso % (Auto) 1.0, Absolute Neuts (auto) 4.3, Absolute Lymphs (auto) 1.96, Nucleated RBC % 0 01/14/19 06:45: Sodium 135 L, Potassium 4.0, Chloride 100, Carbon Dioxide 30.0, Anion Gap 5, BUN 60 H, Creatinine 1.99 H, Estim Creat Clear Calc 40.76, Est GFR (MDRD) Af Amer 44 L, Est GFR (MDRD) Non-Af 37 L, BUN/Creatinine Ratio 30.2 H, Glucose 278 H, Calcium 9.2 Current Medications Acetaminophen (Tylenol) 650 mg PO Q6H PRN PRN PRN Reason: Mild Pain (0-3/10)/Headache Atorvastatin Calcium (Lipitor) 80 mg PO QHS [facility] Last Admin: 01/13/19 21:52 Dose: 80 mg Documented by: Bisacodyl (Dulcolax) 10 mg RECTAL .PRN X 1 PRN PRN Reason: Constipation Clonidine (Catapres) 0.1 mg PO BID [facility] Last Admin: 01/14/19 08:09 Dose: 0.1 mg Documented by: Clopidogrel Bisulfate (Plavix) 75 mg PO DAILY [facility] Last Admin: 01/14/19 08:09 Dose: 75 mg Documented by: Diazepam (Valium) 5 mg PO BID PRN PRN PRN Reason: ANXIETY Duloxetine HCl (Cymbalta) 30 mg PO DAILY [facility] Stop: 01/27/19 10:01 Last Admin: 01/14/19 08:09 Dose: 30 mg Documented by: Fenofibrate (Tricor) 48 mg PO DAILY [facility] Last Admin: 01/14/19 08:09 Dose: 48 mg Documented by: Heparin Sodium (Porcine) (Heparin Na) 5,000 unit SC BID [facility] Last Admin: 01/14/19 08:09 Dose: 5,000 unit Documented by: Insulin Glargine (Lantus (Bkc)) 35 units SC DAILY@1999 [facility] Last Admin: 01/13/19 21:52 Dose: 35 u Documented by: Insulin Human Lispro (Humalog Kwikpen (Bkc)) 0 unit SC ACHS [facility]; Protocol Last Admin: 01/14/19 08:07 Dose: 4 u Documented by: Insulin Human Lispro (Humalog Kwikpen (Bkc)) 5 unit SC TIDAC [facility] Last Admin: 01/14/19 08:08 Dose: 5 u Documented by: Magnesium Hydroxide (Milk Of Magnesia) 30 ml PO .PRN X 1 PRN PRN Reason: Constipation Nutritional Formula (Lactose Free) (Glucerna Shake) 120 ml PO 4X/DAY [facility] Last Admin: 01/14/19 08:10 Dose: Not Given Documented by: Pantoprazole Sodium (Protonix) 40 mg PO DAILY [facility] Last Admin: 01/14/19 08:09 Dose: 40 mg Documented by: Pregabalin (Lyrica) 150 mg PO BID [facility] Last Admin: 01/14/19 08:13 Dose: 150 mg Documented by: Senna/Docusate Sodium (Senokot-S, Thalia-Colace) 2 tablet PO BID [facility] Last Admin: 01/14/19 08:10 Dose: Not Given Documented by: Sertraline HCl (Zoloft) 25 mg PO DAILY [facility] Stop: 01/26/19 10:01 Last Admin: 01/14/19 08:08 Dose: 25 mg Documented by: Sertraline HCl (Zoloft) 50 mg PO DAILY [facility] Medical Necessity - Tobacco Use Smoking Status: Current some day smoker Tobacco Use: Chew, Pipe Assessment/Plan All Active Problems (Last Reviewed 01/12/19 @ 10:44 by Adriel Elizabeth MD) Syncope and collapse (Acute) CVA (cerebral vascular accident) (Acute) Syncope (Acute) Bradycardia (Acute) Intractable nausea and vomiting (Resolved) FLORY (acute kidney injury) (Acute) Nonketotic hyperglycinemia (Resolved) Nausea (Resolved) Abdominal pain (Resolved) Hematochezia (Resolved) 1. acute stroke clopidogrel and atorvastatin MRI shows acute or subacute CVA of MAGDI territory. 2. Syncope Unsure if this is true syncopal episode as it was not witnessed but is a possible that the patient may try to stand up and his leg was weak and he just fell and hit his head having a concussion so he has antecedent amnesia Cardiology on board and stress test ordered 3. Cardiomyopathy Noted incidentally on the echocardiogram where his ejection fraction is now 35 to 40%. Back in April it was a 65%. Cardiology on consultation further cardiac work up as outpt. 4. Abnormal UA: Patient has 25 leukocyte esterase but nothing to suggest a urinary tract infection. No further work up 6. Diabetes mellitus type 2: uncontrolled hyperglycemia A1c 9 increase basal from 35 to 45 increase prandial from 5to 8 7. Depression and anxiety I recommend transitioning from Cymbalta to sertraline. On the fourth will have patient resume his Cymbalta but not at 60 mg but at 30 mg and to initiate Zoloft 25 mg at that time and then do that for 1-2 weeks and then transition him over to Zoloft 50 mg and to discontinue Cymbalta. Code Visit Inpatient E&M: 81251 Subs Hosp L2
[2019-01-14] MEDS: Insulin Lispro 100 UNIT/ML INSULN.PEN 8 UNIT SC ×2 (12:59→18:29)
[2019-01-14 13:10] LABS: Bedside Glucose 372 mg/dL (70-110)
[2019-01-14 16:15] VITALS: BMI 28.0
[2019-01-14 18:30] LABS: Bedside Glucose 309 mg/dL (70-110)
[2019-01-14 19:41] VITALS: BP 125/73; PULSE 71; RESP 16; TEMP 36.5; O2SAT 98
[2019-01-14 21:29] VITALS: BMI 28.0
[2019-01-14] MEDS: Senna/Docusate Sodium 1 Tablet 2 TABLET PO (21:35)
[2019-01-14] MEDS: Atorvastatin Calcium 80 MG Tablet PO (21:35)
[2019-01-14 21:46] LABS: Bedside Glucose 195 mg/dL (70-110)
[2019-01-14 22:00] VITALS: PULSE 71; RESP 16; O2SAT 98
[2019-01-15 07:00] VITALS: O2SAT 96
[2019-01-15] MEDS: Insulin Lispro 100 UNIT/ML INSULN.PEN 8 UNIT SC ×3 (08:04→17:17)
[2019-01-15] MEDS: Insulin Lispro 100 UNIT/ML INSULN.PEN SC ×4 (08:04→22:21)
[2019-01-15] MEDS: DULoxetine Hcl 30 MG Capsule PO (08:05)
[2019-01-15] MEDS: cloNIDine HCl 0.1 MG Tablet PO ×2 (08:05→22:20)
[2019-01-15] MEDS: Heparin Injection (Vial) 5,000 UNIT/ML VIAL 5000 UNIT SC ×2 (08:06→20:27)
[2019-01-15] MEDS: Pantoprazole Sodium 40 MG Tablet PO (08:06)
[2019-01-15] MEDS: Clopidogrel Bisulfate 75 MG Tablet PO (08:06)
[2019-01-15] MEDS: Fenofibrate 48 MG Tablet PO (08:06)
[2019-01-15] MEDS: Sertraline 50 MG Tablet 25 MG PO (08:07)
[2019-01-15] MEDS: Pregabalin 75 MG Capsule 150 MG PO ×3 (08:11→22:21)
[2019-01-15 09:46] VITALS: BP 134/80; PULSE 65; RESP 16; TEMP 36.6; O2SAT 97
[2019-01-15 10:50] VITALS: BMI 28.0
[2019-01-15 11:27] LABS: Bedside Glucose 179 mg/dL (70-110)
[2019-01-15 11:41] LABS: Bedside Glucose 236 mg/dL (70-110)
[2019-01-15 16:55] LABS: Bedside Glucose 236 mg/dL (70-110)
--- NOTE | 2019-01-15 18:35 | NURSING ---
incontinent of large amount of urine, PVR 0
[2019-01-15 20:20] VITALS: BP 116/74; PULSE 74; RESP 16; TEMP 36.9; O2SAT 98
[2019-01-15] MEDS: Atorvastatin Calcium 80 MG Tablet PO (20:27)
[2019-01-15] MEDS: Senna/Docusate Sodium 1 Tablet 2 TABLET PO (20:28)
[2019-01-15 20:34] VITALS: BMI 28.0
[2019-01-15 21:46] LABS: Bedside Glucose 198 mg/dL (70-110)
[2019-01-15 22:00] VITALS: PULSE 74; RESP 16; O2SAT 98
[2019-01-16 07:06] LABS: Bedside Glucose 135 mg/dL (70-110)
[2019-01-16 07:07] VITALS: BP 117/66; PULSE 72; RESP 16; TEMP 36.6; O2SAT 96
[2019-01-16] MEDS: Insulin Lispro 100 UNIT/ML INSULN.PEN 8 UNIT SC ×3 (07:52→17:18)
[2019-01-16] MEDS: Sertraline 50 MG Tablet 25 MG PO (07:52)
[2019-01-16] MEDS: cloNIDine HCl 0.1 MG Tablet PO ×2 (07:52→21:54)
[2019-01-16] MEDS: Pantoprazole Sodium 40 MG Tablet PO (07:53)
[2019-01-16] MEDS: Fenofibrate 48 MG Tablet PO (07:53)
[2019-01-16] MEDS: Pregabalin 75 MG Capsule 150 MG PO ×2 (07:53→21:54)
[2019-01-16] MEDS: DULoxetine Hcl 30 MG Capsule PO (07:53)
[2019-01-16] MEDS: Heparin Injection (Vial) 5,000 UNIT/ML VIAL 5000 UNIT SC ×2 (07:53→21:54)
[2019-01-16] MEDS: Clopidogrel Bisulfate 75 MG Tablet PO (07:53)
[2019-01-16] MEDS: Senna/Docusate Sodium 1 Tablet 2 TABLET PO ×2 (07:55→21:54)
[2019-01-16 11:20] LABS: Bedside Glucose 179 mg/dL (70-110)
[2019-01-16 11:28] VITALS: BMI 28.0
[2019-01-16] MEDS: Insulin Lispro 100 UNIT/ML INSULN.PEN SC ×2 (11:43→17:18)
--- NOTE | 2019-01-16 11:49 | PCM.PN.NEU ---
Subjective: No issues overnight. Care discussed with the nursing staff. - Physical Exam General: Alert HEENT: Normocephalic Neck: Supple Lungs: Normal air movement Cardiovascular: Normal S1, Normal S2 Abdomen: Bowel Sounds Present Extremities: No cyanosis Neurological: - - Conscious, alert, CN II through XII grossly intact at present, power 5 x 5 right upper and lower extremities, left upper extremity 4 x 5 and left lower extremity 1 x 5, no sensory loss, no cerebellar signs, gait deferred, reflexes + B/L B/S/T/K/A, no pronator drift Psych/Mental Status: Normal Affect Vital Signs Temp Pulse Resp BP Pulse Ox 97.8 F 72 16 117/66 96 01/16/19 07:07 01/16/19 07:07 01/16/19 07:07 01/16/19 07:07 01/16/19 07:07 Oxygen Delivery Method Room Air Weight: 88.6 kg Body Mass Index (BMI) 28.0 Finger Stick Blood Glucose 122 Intake and Output for Last 24 Hours 01/14/19 01/15/19 01/16/19 23:59 23:59 23:59 Intake Total 1200 / 1200 400 / 400 380 / 380 Output Total 800 / 800 Balance 1200 / 1200 -400 / -400 380 / 380 POC Glucose 01/16/19 01/16/19 01/15/19 11:13 06:32 21:21 POC Glucose 179 H 135 H 198 H 01/15/19 16:47 POC Glucose 236 H Medical Necessity - Tobacco Use Smoking Status: Current some day smoker Tobacco Use: Chew, Pipe Assessment/Plan All Active Problems (Last Reviewed 01/12/19 @ 10:44 by Adriel Elizabeth MD) Syncope and collapse (Acute) CVA (cerebral vascular accident) (Acute) Syncope (Acute) Bradycardia (Acute) Intractable nausea and vomiting (Resolved) FLORY (acute kidney injury) (Acute) Nonketotic hyperglycinemia (Resolved) Nausea (Resolved) Abdominal pain (Resolved) Hematochezia (Resolved) 58 year old M with PMH of HTN, DM, anxiety/depression admitted to [facility] on 01/13/2019 with debility secondary to acute right MAGDI infarct, for greater than 3 hours of therapy daily with a goal of returning home at or near his prior level of independence. On 01/11/2019, patient presented to [facility] due left leg weakness. Patient stated he was sitting up in his recliner and when he awoke he was laying on the floor, voiced hitting head. CT of head showed no acute findings. MRI brain without contrast showed acute or subacute infarct right MAGDI, without hemorrhage. 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 MRA of neck showed normal bilateral cervical carotid and vertebral arteries. Echocardiogram showed EF of 35 to 40%, normal LA size. LDL 155, HgbA1c 9.0%. Developed FLORY: BUN/Cr 27/1.76. Patient on statin, plavix. Patient has history of positive snoring, daytime tiredness, awakens 1-2x/night for bathroom, and naps daily. Outpatient PSG study to be done, patient agreeable. Plan - PT for gait stability - OT for ADLs - ST - Right MAGDI infarct-On plavix, statin - HTN-goal blood pressure less than 130/80 mmHg. On clonidine. Was on clonidine, HCTZ and lisinopril at home. - 30 Day event recorder on discharge - DM type II HgbA1c 9.0%, on lantus, humalog S.C, accuchecks ac/hs - Depression/anxiety cymbalta 30 mg x 13 days and zoloft 25 mg x13 days then increase to 50 mg and discontinue Cymbalta then, on valium prn - HLD LDL 155 on statin, fenofibrate - neuropathy- chronic per patient- no tx - GI/DVT prophylaxis on protonix/heparin, knee high hayile hose - Further medical management per hospitalist- consult - CKD?monitor creatinine, avoid nephrotoxic drugs, may need nephrology consult. Creatinine 1.99 on 01/14/2019. Creatinine was 1.76 on 01/11/2019 - Analgesics as needed - Bowel protocol - Fall precautions - F/U with PCP, neurology, cardiology
--- NOTE | 2019-01-16 14:05 | PN_ITS ---
Subjective: CC follow-up acute CVA Patient is a 58-year-old gentleman admitted to the inpatient rehab unit following admission for acute CVA involving the MAGDI territory Objective: GENERAL: cooperative HEENT: Atraumatic; EYES; Anicteric, NECK; supple, normal thyroid, RESPIRATORY: Diminished to auscultation CARDIOVASCULAR: Regular S1 S2, GI: soft, non-tender, normoactive bowel sounds, : No Renal angle tenderness; EXTREMITIES: No edema, no clubbing, MUSCULOSKELETAL: No Joint Tenderness; NEURO: Awake; left lower extremity flaccid paralysis SKIN: No Rash PSYCH; Normal affect Vitals/I&O's: Vital Signs Temp Pulse Resp BP Pulse Ox 97.8 F 72 16 117/66 96 01/16/19 07:07 01/16/19 07:07 01/16/19 07:07 01/16/19 07:07 01/16/19 07:07 Oxygen Delivery Method Room Air Weight: 88.6 kg Body Mass Index (BMI) 28.0 Finger Stick Blood Glucose 122 Intake and Output for Last 24 Hours 01/14/19 01/15/19 01/16/19 23:59 23:59 23:59 Intake Total 1200 / 1200 400 / 400 500 / 500 Output Total 800 / 800 Balance 1200 / 1200 -400 / -400 500 / 500 Laboratory Results 01/15/19 16:47: POC Glucose 236 H 01/15/19 21:21: POC Glucose 198 H 01/16/19 06:32: POC Glucose 135 H 01/16/19 11:13: POC Glucose 179 H Current Medications Acetaminophen (Tylenol) 650 mg PO Q6H PRN PRN PRN Reason: Mild Pain (0-3/10)/Headache Atorvastatin Calcium (Lipitor) 80 mg PO QHS [facility] Last Admin: 01/15/19 20:27 Dose: 80 mg Documented by: Bisacodyl (Dulcolax) 10 mg RECTAL .PRN X 1 PRN PRN Reason: Constipation Clonidine (Catapres) 0.1 mg PO BID [facility] Last Admin: 01/16/19 07:52 Dose: 0.1 mg Documented by: Clopidogrel Bisulfate (Plavix) 75 mg PO DAILY [facility] Last Admin: 01/16/19 07:53 Dose: 75 mg Documented by: Diazepam (Valium) 5 mg PO BID PRN PRN PRN Reason: ANXIETY Duloxetine HCl (Cymbalta) 30 mg PO DAILY [facility] Stop: 01/27/19 10:01 Last Admin: 01/16/19 07:53 Dose: 30 mg Documented by: Fenofibrate (Tricor) 48 mg PO DAILY [facility] Last Admin: 01/16/19 07:53 Dose: 48 mg Documented by: Heparin Sodium (Porcine) (Heparin Na) 5,000 unit SC BID [facility] Last Admin: 01/16/19 07:53 Dose: 5,000 unit Documented by: Insulin Glargine (Lantus (Bkc)) 45 units SC DAILY@1999 [facility] Last Admin: 01/15/19 20:24 Dose: 45 u Documented by: Insulin Human Lispro (Humalog Kwikpen (Bkc)) 0 unit SC ACHS [facility]; Protocol Last Admin: 01/16/19 11:43 Dose: 1 u Documented by: Insulin Human Lispro (Humalog Kwikpen (Bkc)) 8 unit SC TIDAC [facility] Last Admin: 01/16/19 11:43 Dose: 8 units Documented by: Magnesium Hydroxide (Milk Of Magnesia) 30 ml PO .PRN X 1 PRN PRN Reason: Constipation Nutritional Formula (Lactose Free) (Glucerna Shake) 120 ml PO 4X/DAY [facility] Last Admin: 01/16/19 13:49 Dose: Not Given Documented by: Pantoprazole Sodium (Protonix) 40 mg PO DAILY [facility] Last Admin: 01/16/19 07:53 Dose: 40 mg Documented by: Pregabalin (Lyrica) 150 mg PO BID [facility] Last Admin: 01/16/19 07:53 Dose: 150 mg Documented by: Senna/Docusate Sodium (Senokot-S, Thalia-Colace) 2 tablet PO BID [facility] Last Admin: 01/16/19 07:55 Dose: 2 tablet Documented by: Sertraline HCl (Zoloft) 25 mg PO DAILY [facility] Stop: 01/26/19 10:01 Last Admin: 01/16/19 07:52 Dose: 25 mg Documented by: Sertraline HCl (Zoloft) 50 mg PO DAILY [facility] Medical Necessity - Tobacco Use Smoking Status: Current some day smoker Tobacco Use: Chew, Pipe Assessment/Plan All Active Problems (Last Reviewed 01/12/19 @ 10:44 by Adriel Elizabeth MD) Syncope and collapse (Acute) CVA (cerebral vascular accident) (Acute) Syncope (Acute) Bradycardia (Acute) Intractable nausea and vomiting (Resolved) FLORY (acute kidney injury) (Acute) Nonketotic hyperglycinemia (Resolved) Nausea (Resolved) Abdominal pain (Resolved) Hematochezia (Resolved) Patient is a 58-year-old gentleman admitted to the inpatient rehab unit following admission for acute CVA involving the MAGDI territory 1. Acute MAGDI territory CVA with residual left lower extremity paralysis ~patient currently undergoing physical therapy 2. Cardiomyopathy with an ejection fraction of 35 to 40% ~scheduled to undergo cardiology evaluation as outpatient 3. Diabetes mellitus type II ~Controlled; patient's oral hypoglycemics held. Placed on long acting insulin, Accu-Cheks a.c. and at bedtime and covered with sliding scale insulin 4. Dyslipidemia ~patient is on statin therapy, continued at home dose 5. Depression with anxiety ?Patient is on SSRI 6. DVT prophylaxis ?SC heparin Active Medications Acetaminophen (Tylenol) 650 mg PO Q6H PRN PRN PRN Reason: Mild Pain (0-3/10)/Headache Atorvastatin Calcium (Lipitor) 80 mg PO QHS [facility] Last Admin: 01/15/19 20:27 Dose: 80 mg Documented by: Bisacodyl (Dulcolax) 10 mg RECTAL .PRN X 1 PRN PRN Reason: Constipation Clonidine (Catapres) 0.1 mg PO BID [facility] Last Admin: 01/16/19 07:52 Dose: 0.1 mg Documented by: Clopidogrel Bisulfate (Plavix) 75 mg PO DAILY [facility] Last Admin: 01/16/19 07:53 Dose: 75 mg Documented by: Diazepam (Valium) 5 mg PO BID PRN PRN PRN Reason: ANXIETY Duloxetine HCl (Cymbalta) 30 mg PO DAILY [facility] Stop: 01/27/19 10:01 Last Admin: 01/16/19 07:53 Dose: 30 mg Documented by: Fenofibrate (Tricor) 48 mg PO DAILY [facility] Last Admin: 01/16/19 07:53 Dose: 48 mg Documented by: Heparin Sodium (Porcine) (Heparin Na) 5,000 unit SC BID [facility] Last Admin: 01/16/19 07:53 Dose: 5,000 unit Documented by: Insulin Glargine (Lantus (Bkc)) 45 units SC DAILY@1999 [facility] Last Admin: 01/15/19 20:24 Dose: 45 u Documented by: Insulin Human Lispro (Humalog Kwikpen (Bkc)) 0 unit SC ACHS [facility]; Protocol Last Admin: 01/16/19 11:43 Dose: 1 u Documented by: Insulin Human Lispro (Humalog Kwikpen (Bkc)) 8 unit SC TIDAC [facility] Last Admin: 01/16/19 11:43 Dose: 8 units Documented by: Magnesium Hydroxide (Milk Of Magnesia) 30 ml PO .PRN X 1 PRN PRN Reason: Constipation Nutritional Formula (Lactose Free) (Glucerna Shake) 120 ml PO 4X/DAY [facility] Last Admin: 01/16/19 13:49 Dose: Not Given Documented by: Pantoprazole Sodium (Protonix) 40 mg PO DAILY [facility] Last Admin: 01/16/19 07:53 Dose: 40 mg Documented by: Pregabalin (Lyrica) 150 mg PO BID [facility] Last Admin: 01/16/19 07:53 Dose: 150 mg Documented by: Senna/Docusate Sodium (Senokot-S, Thalia-Colace) 2 tablet PO BID [facility] Last Admin: 01/16/19 07:55 Dose: 2 tablet Documented by: Sertraline HCl (Zoloft) 25 mg PO DAILY [facility] Stop: 01/26/19 10:01 Last Admin: 01/16/19 07:52 Dose: 25 mg Documented by: Sertraline HCl (Zoloft) 50 mg PO DAILY [facility] Code Visit Inpatient E&M: 74534 [facility] Hosp L2
--- NOTE | 2019-01-16 15:18 | NURSING ---
Pt scratched scab to left knee, area noted to have mod amt bleeding. Area cleansed and 2x2 gauze sponge applied and secured with tape. Will continue to monitor.
[2019-01-16 16:50] LABS: Bedside Glucose 158 mg/dL (70-110)
--- NOTE | 2019-01-16 18:19 | NURSING ---
Reviewed and agree with ADMISSIONS CLERK's charting
[2019-01-16 19:24] VITALS: BP 121/70; PULSE 68; RESP 18; TEMP 36.5; O2SAT 99
[2019-01-16 20:31] LABS: Bedside Glucose 138 mg/dL (70-110)
[2019-01-16] MEDS: Atorvastatin Calcium 80 MG Tablet PO (21:54)
[2019-01-16 22:17] VITALS: BMI 28.0
[2019-01-16 22:26] LABS: Bedside Glucose 117 mg/dL (70-110)
[2019-01-17 06:46] LABS: Bedside Glucose 85 mg/dL (70-110)
[2019-01-17 07:02] VITALS: BP 138/81; PULSE 64; RESP 16; TEMP 36.4; O2SAT 99
[2019-01-17] MEDS: Pregabalin 75 MG Capsule 150 MG PO ×2 (08:04→20:41)
[2019-01-17] MEDS: cloNIDine HCl 0.1 MG Tablet PO ×2 (08:04→20:39)
[2019-01-17] MEDS: Sertraline 50 MG Tablet 25 MG PO (08:04)
[2019-01-17] MEDS: Senna/Docusate Sodium 1 Tablet 2 TABLET PO ×2 (08:04→20:41)
[2019-01-17] MEDS: Pantoprazole Sodium 40 MG Tablet PO (08:05)
[2019-01-17] MEDS: DULoxetine Hcl 30 MG Capsule PO (08:05)
[2019-01-17] MEDS: Clopidogrel Bisulfate 75 MG Tablet PO (08:05)
[2019-01-17] MEDS: Fenofibrate 48 MG Tablet PO (08:05)
[2019-01-17 08:15] LABS: Bedside Glucose 147 mg/dL (70-110)
[2019-01-17] MEDS: Heparin Injection (Vial) 5,000 UNIT/ML VIAL 5000 UNIT SC ×2 (08:26→20:40)
[2019-01-17] MEDS: Insulin Lispro 100 UNIT/ML INSULN.PEN 8 UNIT SC ×3 (08:27→17:09)
--- NOTE | 2019-01-17 09:59 | PN.NEURO_ITS ---
Subjective: No issues overnight. Care discussed with the nursing staff. - Physical Exam General: Alert HEENT: Normocephalic Neck: Supple Lungs: Normal air movement Cardiovascular: Normal S1, Normal S2 Abdomen: Bowel Sounds Present Extremities: No cyanosis Neurological: - - Conscious, alert, CN II through XII grossly intact at present, power 5 x 5 right upper and lower extremities, left upper extremity 4 x 5 and left lower extremity 1 x 5, no sensory loss, no cerebellar signs, gait deferred, reflexes + B/L B/S/T/K/A, no pronator drift Psych/Mental Status: Normal Affect Vital Signs Temp Pulse Resp BP Pulse Ox 97.6 F L 64 16 138/81 H 99 01/17/19 07:02 01/17/19 07:02 01/17/19 07:02 01/17/19 07:02 01/17/19 07:02 Oxygen Delivery Method Room Air Weight: 88.6 kg Body Mass Index (BMI) 28.0 Finger Stick Blood Glucose 122 Intake and Output for Last 24 Hours 01/15/19 01/16/19 01/17/19 23:59 23:59 23:59 Intake Total 400 / 400 880 / 880 240 / 240 Output Total 800 / 800 800 / 800 Balance -400 / -400 80 / 80 240 / 240 POC Glucose 01/17/19 01/17/19 01/16/19 08:12 06:38 21:17 POC Glucose 147 H 85 117 H 01/16/19 01/16/19 01/16/19 20:04 16:41 11:13 POC Glucose 138 H 158 H 179 H Medical Necessity - Tobacco Use Smoking Status: Current some day smoker Tobacco Use: Chew, Pipe Assessment/Plan All Active Problems (Last Reviewed 01/12/19 @ 10:44 by Adriel Elizabeth MD) Syncope and collapse (Acute) CVA (cerebral vascular accident) (Acute) Syncope (Acute) Bradycardia (Acute) Intractable nausea and vomiting (Resolved) FLORY (acute kidney injury) (Acute) Nonketotic hyperglycinemia (Resolved) Nausea (Resolved) Abdominal pain (Resolved) Hematochezia (Resolved) 58 year old M with PMH of HTN, DM, anxiety/depression admitted to [facility] on 01/13/2019 with debility secondary to acute right MAGDI infarct, for greater than 3 hours of therapy daily with a goal of returning home at or near his prior level of independence. On 01/11/2019, patient presented to [facility] due left leg weakness. Patient stated he was sitting up in his recliner and when he awoke he was laying on the floor, voiced hitting head. CT of head showed no acute findings. MRI brain without contrast showed acute or subacute infarct right MAGDI, without hemorrhage. 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 MRA of neck showed normal bilateral cervical carotid and vertebral arteries. Echocardiogram showed EF of 35 to 40%, normal LA size. LDL 155, HgbA1c 9.0%. Developed FLORY: BUN/Cr 27/1.76. Patient on statin, plavix. Patient has history of positive snoring, daytime tiredness, awakens 1-2x/night for bathroom, and naps daily. Outpatient PSG study to be done, patient agreeable. Plan - PT for gait stability - OT for ADLs - ST - Right MAGDI infarct- On plavix, statin - HTN-goal blood pressure less than 130/80 mmHg. On clonidine. Was on clon idine, HCTZ and lisinopril at home. - 30 Day event recorder on discharge - DM type II HgbA1c 9.0%, on lantus, humalog S.C, accuchecks ac/hs - Depression/anxiety cymbalta 30 mg x 13 days and zoloft 25 mg x13 days then increase to 50 mg and discontinue Cymbalta then, on valium prn - HLD LDL 155 on statin, fenofibrate - neuropathy- chronic per patient- no tx - GI/DVT prophylaxis on protonix/heparin, knee high haylie hose - Further medical management per hospitalist- consult - CKD?monitor creatinine, avoid nephrotoxic drugs, may need nephrology consult. Creatinine 1.99 on 01/14/2019. Creatinine was 1.76 on 01/11/2019 - Analgesics as needed - Bowel protocol - Fall precautions - F/U with PCP, neurology, cardiology
--- NOTE | 2019-01-17 10:39 | CASEMGMT ---
Social Work Spoke with patient discuss discharge plans. Pt expressed pt and struggle financially. provided food pantry resources, home delivered meals, [facility] information, and Medicaid application. Pt very open with emotions and family struggles and his health issues. Pt requesting to follow with counseling in the community - provided counseling resources and offered to call agencies for insurance coverage and schedule an appt at discharge. Pt interested in attending Stroke Support Group - referral made to [facility]. Completed Advanced Directives with patient - named , Karen Munoz at [facility]. Copies placed on chart. currently at work - left message to further discuss discharge plans. Will continue to follow. ELLEN Vanessa [employer]
--- NOTE | 2019-01-17 11:17 | CASEMGMT ---
Addendum entered by Lesvia Avery 01/19/19 12:04: Insurance: Next continued stay review due 01/23/19 Original Note: Insurance: Continued stay review sent through [employer] this day. Auth # [id number]
[2019-01-17 11:46] LABS: Bedside Glucose 220 mg/dL (70-110)
[2019-01-17] MEDS: Insulin Lispro 100 UNIT/ML INSULN.PEN SC ×2 (11:57→21:21)
[2019-01-17 13:18] VITALS: BMI 28.0
[2019-01-17 17:00] LABS: Bedside Glucose 113 mg/dL (70-110)
[2019-01-17 18:47] VITALS: BP 146/76; PULSE 70; RESP 16; TEMP 36.4; O2SAT 97
[2019-01-17] MEDS: Atorvastatin Calcium 80 MG Tablet PO (20:40)
[2019-01-17 20:59] VITALS: BMI 28.0
[2019-01-17 21:35] LABS: Bedside Glucose 234 mg/dL (70-110)
[2019-01-17 21:35] LABS: Bedside Glucose 205 mg/dL (70-110)
[2019-01-18 07:00] LABS: Bedside Glucose 154 mg/dL (70-110)
[2019-01-18] MEDS: Fenofibrate 48 MG Tablet PO (07:42)
[2019-01-18] MEDS: cloNIDine HCl 0.1 MG Tablet PO ×2 (07:43→21:22)
[2019-01-18] MEDS: Pantoprazole Sodium 40 MG Tablet PO (07:43)
[2019-01-18] MEDS: DULoxetine Hcl 30 MG Capsule PO (07:43)
[2019-01-18] MEDS: Clopidogrel Bisulfate 75 MG Tablet PO (07:43)
[2019-01-18] MEDS: Sertraline 50 MG Tablet 25 MG PO (07:43)
[2019-01-18] MEDS: Senna/Docusate Sodium 1 Tablet 2 TABLET PO ×2 (07:44→21:19)
[2019-01-18] MEDS: Insulin Lispro 100 UNIT/ML INSULN.PEN SC ×4 (07:45→22:00)
[2019-01-18] MEDS: Insulin Lispro 100 UNIT/ML INSULN.PEN 8 UNIT SC ×3 (07:46→17:10)
[2019-01-18 08:27] VITALS: BP 130/74; PULSE 61; RESP 16; TEMP 36.4; O2SAT 97
[2019-01-18] MEDS: Pregabalin 75 MG Capsule 150 MG PO ×2 (09:12→21:19)
[2019-01-18] MEDS: Heparin Injection (Vial) 5,000 UNIT/ML VIAL 5000 UNIT SC ×2 (09:13→21:21)
--- NOTE | 2019-01-18 09:53 | PCM.PN.HOSP ---
Subjective: Follow-up acute CVA Complains of bruising the dorsal surface of his right hand after straining himself during his therapy. He also did admit to being able to move his left toes Objective: GENERAL: cooperative HEENT: Atraumatic; EYES; Anicteric, NECK; supple, normal thyroid, RESPIRATORY: Diminished to auscultation CARDIOVASCULAR: Regular S1 S2, GI: soft, non-tender, normoactive bowel sounds, : No Renal angle tenderness; EXTREMITIES: No edema, no clubbing, MUSCULOSKELETAL: No Joint Tenderness; NEURO: Awake; left lower extremity flaccid paralysis SKIN: No Rash PSYCH; Normal affect Vitals/I&O's: Vital Signs Temp Pulse Resp BP Pulse Ox 97.6 F L 61 16 130/74 H 97 01/18/19 08:27 01/18/19 08:27 01/18/19 08:27 01/18/19 08:27 01/18/19 08:27 Oxygen Delivery Method Room Air Weight: 92.2 kg Body Mass Index (BMI) 28.0 Finger Stick Blood Glucose 122 Intake and Output for Last 24 Hours 01/16/19 01/17/19 01/18/19 23:59 23:59 23:59 Intake Total 880 / 880 480 / 480 260 / 260 Output Total 800 / 800 600 / 600 Balance 80 / 80 -120 / -120 260 / 260 Laboratory Results 01/17/19 11:42: POC Glucose 220 H 01/17/19 16:48: POC Glucose 113 H 01/17/19 20:36: POC Glucose 234 H 01/17/19 21:19: POC Glucose 205 H 01/18/19 06:26: POC Glucose 154 H Current Medications Acetaminophen (Tylenol) 650 mg PO Q6H PRN PRN PRN Reason: Mild Pain (0-3/10)/Headache Atorvastatin Calcium (Lipitor) 80 mg PO QHS [facility] Last Admin: 01/17/19 20:40 Dose: 80 mg Documented by: Bisacodyl (Dulcolax) 10 mg RECTAL .PRN X 1 PRN PRN Reason: Constipation Clonidine (Catapres) 0.1 mg PO BID [facility] Last Admin: 01/18/19 07:43 Dose: 0.1 mg Documented by: Clopidogrel Bisulfate (Plavix) 75 mg PO DAILY [facility] Last Admin: 01/18/19 07:43 Dose: 75 mg Documented by: Diazepam (Valium) 5 mg PO BID PRN PRN PRN Reason: ANXIETY Duloxetine HCl (Cymbalta) 30 mg PO DAILY [facility] Stop: 01/27/19 10:01 Last Admin: 01/18/19 07:43 Dose: 30 mg Documented by: Fenofibrate (Tricor) 48 mg PO DAILY [facility] Last Admin: 01/18/19 07:42 Dose: 48 mg Documented by: Heparin Sodium (Porcine) (Heparin Na) 5,000 unit SC BID [facility] Last Admin: 01/18/19 09:13 Dose: 5,000 unit Documented by: Insulin Glargine (Lantus (Bk)) 45 units SC DAILY@1999 [facility] Last Admin: 01/17/19 20:37 Dose: 45 u Documented by: Insulin Human Lispro (Humalog Kwikpen (Bk)) 0 unit SC ACHS [facility]; Protocol Last Admin: 01/18/19 07:45 Dose: 1 u Documented by: Insulin Human Lispro (Humalog Kwikpen ([facility])) 8 unit SC TIDAC [facility] Last Admin: 01/18/19 07:46 Dose: 8 units Documented by: Magnesium Hydroxide (Milk Of Magnesia) 30 ml PO .PRN X 1 PRN PRN Reason: Constipation Nutritional Formula (Lactose Free) (Glucerna Shake) 120 ml PO 4X/DAY [facility] Last Admin: 01/18/19 07:45 Dose: Not Given Documented by: Pantoprazole Sodium (Protonix) 40 mg PO DAILY [facility] Last Admin: 01/18/19 07:43 Dose: 40 mg Documented by: Pregabalin (Lyrica) 150 mg PO BID [facility] Last Admin: 01/18/19 09:12 Dose: 150 mg Documented by: Senna/Docusate Sodium (Senokot-S, Thalia-Colace) 2 tablet PO BID [facility] Last Admin: 01/18/19 07:44 Dose: 2 tablet Documented by: Sertraline HCl (Zoloft) 25 mg PO DAILY [facility] Stop: 01/26/19 10:01 Last Admin: 01/18/19 07:43 Dose: 25 mg Documented by: Sertraline HCl (Zoloft) 50 mg PO DAILY [facility] Medical Necessity - Tobacco Use Smoking Status: Current some day smoker Tobacco Use: Chew, Pipe Assessment/Plan All Active Problems (Last Reviewed 01/12/19 @ 10:44 by Adriel Elizabeth MD) Syncope and collapse (Acute) CVA (cerebral vascular accident) (Acute) Syncope (Acute) Bradycardia (Acute) Intractable nausea and vomiting (Resolved) FLORY (acute kidney injury) (Acute) Nonketotic hyperglycinemia (Resolved) Nausea (Resolved) Abdominal pain (Resolved) Hematochezia (Resolved) Patient is a 58-year-old gentleman admitted to the inpatient rehab unit following admission for acute CVA involving the MAGDI territory 1. 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 Able to move his left toes 2. Cardiomyopathy with an ejection fraction of 35 to 40% ~scheduled to undergo cardiology evaluation as outpatient 3. Diabetes mellitus type II ~Controlled; patient's oral hypoglycemics held. Placed on long acting insulin, Accu-Cheks a.c. and at bedtime and covered with sliding scale insulin 4. Dyslipidemia ~patient is on statin therapy, continued at home dose 5. Depression with anxiety ?Patient is on SSRI 6. DVT prophylaxis ?SC heparin Code Visit Inpatient E&M: 57474 Subs Hosp L2
--- NOTE | 2019-01-18 10:02 | PCM.PN.NEU ---
Subjective: Patient tolerating therapies well, voiced n/t to bilateral hands increase with grabbing parallel bars during therapy activates, decreases with rest, mild n/t to bilateral feet. Currently on lyrica 150 mg bid for chronic neuropathy. Denies further questions or concerns. - Physical Exam General: Alert, Oriented x3, Cooperative HEENT: Atraumatic, PERRLA Oral: Moist Mucosa Neck: Supple, No JVD Lungs: Clear to auscultation, Normal air movement Cardiovascular: Regular rate, Regular Rhythm Abdomen: Bowel Sounds Present, Soft, Non Tender Extremities: No clubbing, No cyanosis, No edema Neurological: Cranial nerves II-XII grossly intact, Deep Tendon Reflexes 2+/4 and Symmetrical, - - Motor strength LUE 4/5, LLE 1/5, RUE/RLE 5/5. Sensation from vivas to briana feet intact to tactile Psych/Mental Status: Normal Affect, Appropriate, Alert and oriented to time, place, person, mood and affect Vital Signs Temp Pulse Resp BP Pulse Ox 97.6 F L 61 16 130/74 H 97 01/18/19 08:27 01/18/19 08:27 01/18/19 08:27 01/18/19 08:27 01/18/19 08:27 Oxygen Delivery Method Room Air Weight: 92.2 kg Body Mass Index (BMI) 28.0 Finger Stick Blood Glucose 122 Intake and Output for Last 24 Hours 01/16/19 01/17/19 01/18/19 23:59 23:59 23:59 Intake Total 880 / 880 480 / 480 260 / 260 Output Total 800 / 800 600 / 600 Balance 80 / 80 -120 / -120 260 / 260 POC Glucose 01/18/19 01/17/19 01/17/19 06:26 21:19 20:36 POC Glucose 154 H 205 H 234 H 01/17/19 01/17/19 16:48 11:42 POC Glucose 113 H 220 H Medical Necessity - Tobacco Use Smoking Status: Current some day smoker Tobacco Use: Chew, Pipe Assessment/Plan All Active Problems (Last Reviewed 01/12/19 @ 10:44 by Adriel Elizabeth MD) Syncope and collapse (Acute) CVA (cerebral vascular accident) (Acute) Syncope (Acute) Bradycardia (Acute) Intractable nausea and vomiting (Resolved) FLORY (acute kidney injury) (Acute) Nonketotic hyperglycinemia (Resolved) Nausea (Resolved) Abdominal pain (Resolved) Hematochezia (Resolved) The patient is a 58 year old M with PMH of HTN, DM type II, anxiety, depression admitted to [facility] on 01/13/2019 for 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 On 01/11/2019, patient presented to [facility] due to syncopal episode and left leg weakness. Patient stated he was sitting up in his recliner and when he awoke he was laying on the floor, voiced hitting head. CT of head showed no acute findings. MRI brain without contrast showed acute or subacute infarct right MAGDI, without hemorrhage. 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 MRA of neck showed normal bilateral cervical carotid and vertebral arteries. Echocardiogram showed EF of 35 to 40%, stage I diastolic dysfunction, posterior?basal severely hypokinetic, and inferior basal severely hypokinetic, unable to estimate RV systolic pressure due to insufficient tricuspid regurgitant envelope. LDL 155, HgbA1c 9.0%. Developed FLORY: BUN/Cr 27/1.76. Patient on statin, plavix, and aspirin discontinued. No antihypertensives for 5 to 7 days post stroke unless systolic is 200. . Patient has history of positive snoring, daytime tiredness, awakens 1-2x/night for bathroom, and naps daily. Outpatient PSG study to be done, patient agreeable. Patient lives with spouse in a two-story house with first-floor set up, modified independent with ADLs, mobility with walker or cane, and driving to hospitalization. Plan - PT for mobility - OT for ADLs - ST for evaluation - Right MAGDI infarct- BP goal <130/80, on statin and antihypertensive - HTN BP goal <130/80 on catapres - DM type II HgbA1c 9.0%, on lantus, humalog S.C, accuchecks ac/hs - Depression/anxiety cymbalta 30 mg x 13 days and zoloft 25 mg x13 days then increase to 50 mg, on valium prn - HLD LDL 155 on statin, fenofibrate - neuropathy- chronic on lyrica - GI/DVT prophylaxis on protonix/heparin, knee high haylie hose - [place] - PSG outpatient - Medical management per hospitalist- consult - FLORY on 01/14 Bun/Cr 60/1.99 recheck bmp - Cardiomyopathy EF 35-40% f/u with cardiology at discharge - Analgesics as needed - Bowel protocol - Fall precautions - F/U with PCP, neurology, cardiology ( Dr. Dobbs), outpatient PSG
[2019-01-18 11:40] LABS: Bedside Glucose 248 mg/dL (70-110)
[2019-01-18 11:44] LABS: Anion Gap 0 (5-15); BUN 39 mg/dL (7-18); BUN/Creat Ratio 23.5 RATIO (10-20); Calcium,Total 8.9 mg/dL (8.5-10.1); Chloride 105 mmol/L (98-107); Creatinine, Serum 1.66 mg/dL (0.70-1.30); EST Glomerular Filtration Rate 45 mL/min (>60); Est Glom Filt Rate - Afr Amer 55 mL/min (>60); Estimated Creatinine Clearance 48.86 ml/min; Glucose 236 mg/dL (74-106); Potassium 4.6 mmol/L (3.5-5.1); Sodium Level 136 mmol/L (136-145)
--- NOTE | 2019-01-18 11:58 | CASEMGMT ---
Social Work Spoke with patient's , explained insurance coverage and approved with [employer] 01/23 and continued stay is not guaranteed. Discussed patient is requiring max assist to transfer and nursing was using [employer] at this time. understands patient may need further therapy at a SNF. Provided pt with list of in network facilities - explained once pt chooses a facility, SW can coordinate with Medicaid family preservation caseworker at that facility. will attend Team and will discuss pt's progress. Will continue to follow. Yissel Champion MSW MANAGER [employer]AGE
[2019-01-18 14:27] VITALS: BMI 28.0
[2019-01-18 17:20] LABS: Bedside Glucose 222 mg/dL (70-110)
[2019-01-18 18:59] VITALS: BP 146/72; PULSE 72; RESP 18; TEMP 36.6; O2SAT 94
[2019-01-18] MEDS: Atorvastatin Calcium 80 MG Tablet PO (21:19)
[2019-01-18 22:25] LABS: Bedside Glucose 261 mg/dL (70-110)
[2019-01-18 22:25] LABS: Bedside Glucose 266 mg/dL (70-110)
[2019-01-19 06:35] LABS: Bedside Glucose 264 mg/dL (70-110)
[2019-01-19 07:15] LABS: Bedside Glucose 208 mg/dL (70-110)
[2019-01-19 07:43] VITALS: BP 128/70; PULSE 64; RESP 16; TEMP 36.5; O2SAT 96
[2019-01-19] MEDS: Insulin Lispro 100 UNIT/ML INSULN.PEN SC ×4 (07:44→22:59)
[2019-01-19] MEDS: Insulin Lispro 100 UNIT/ML INSULN.PEN 8 UNIT SC ×3 (07:45→17:14)
[2019-01-19] MEDS: Senna/Docusate Sodium 1 Tablet 2 TABLET PO ×2 (07:46→22:57)
[2019-01-19] MEDS: Pregabalin 75 MG Capsule 150 MG PO (07:47)
[2019-01-19] MEDS: Sertraline 50 MG Tablet 25 MG PO (07:47)
[2019-01-19] MEDS: Pantoprazole Sodium 40 MG Tablet PO (07:47)
[2019-01-19] MEDS: Fenofibrate 48 MG Tablet PO (07:47)
[2019-01-19] MEDS: DULoxetine Hcl 30 MG Capsule PO (07:48)
[2019-01-19] MEDS: Heparin Injection (Vial) 5,000 UNIT/ML VIAL 5000 UNIT SC ×2 (07:48→22:58)
[2019-01-19] MEDS: cloNIDine HCl 0.1 MG Tablet PO ×2 (07:48→22:58)
[2019-01-19] MEDS: Clopidogrel Bisulfate 75 MG Tablet PO (07:48)
--- NOTE | 2019-01-19 10:23 | CASEMGMT ---
Social Work IDT met with patient and for Team Meeting. Discussed patient's progress in therapy. Pt has improved with slurred speech; still working on slowing down speaking and processing information to recall memory. Pt is min assist for bed mobility, transfers max assist x2, walking 20 ft with FWW max assist x2 with adaptive equipment. Nursing is using two people for transfers and ADLS. Pt is using total assist for LE ADLs, bathing mod to max for balance, UE grooming set up assist, stand pivot transfers x2. completed Medicaid application and is reviewing SNF list for SW to refer to to begin Medicaid process. Will continue to follow and assist. Will ReTeam next week pending insurance update 01/23. ELLEN Vanessa
--- NOTE | 2019-01-19 10:43 | RAD_ITS ---
STUDY: X-RAY - RIGHT HAND REASON FOR EXAM: Male, 58 years old. Pain and bruising TECHNIQUE: 2 view(s) of the hand. COMPARISON: None. FINDINGS: Studies of the right hand in 2 projections shows no evidence of fracture, dislocation, or bony destruction. RAD/Hand 2 Views IMPRESSION: Normal x-ray examination of the hand. Electronically Signed: Bassem Puckett, at 11:21 EDT Tel , Service support ,
[2019-01-19 11:41] LABS: Bedside Glucose 184 mg/dL (70-110)
--- NOTE | 2019-01-19 14:08 | PN.NEURO_ITS ---
Subjective: No issues overnight. Care discussed with the nursing staff. Staffed in the team meeting today. All questions were answered. Further therapy details per PT/OT/ST notes. - Physical Exam General: Alert HEENT: Normocephalic Neck: Supple Lungs: Normal air movement Cardiovascular: Normal S1, Normal S2 Abdomen: Bowel Sounds Present Extremities: No cyanosis Neurological: - - Conscious, alert, CN II through XII grossly intact at present, power 5 x 5 right upper and lower extremities, left upper extremity 4 x 5 and left lower extremity 1 x 5, no sensory loss, no cerebellar signs, gait deferred, reflexes + B/L B/S/T/K/A, no pronator drift Psych/Mental Status: Normal Affect Vital Signs Temp Pulse Resp BP Pulse Ox 97.7 F L 64 16 128/70 H 96 01/19/19 07:43 01/19/19 07:43 01/19/19 07:43 01/19/19 07:43 01/19/19 07:43 Oxygen Delivery Method Room Air Weight: 92.2 kg Body Mass Index (BMI) 28.0 Finger Stick Blood Glucose 122 Intake and Output for Last 24 Hours 01/17/19 01/18/19 01/19/19 23:59 23:59 23:59 Intake Total 480 / 480 500 / 500 720 / 720 Output Total 600 / 600 Balance -120 / -120 500 / 500 720 / 720 POC Glucose 01/19/19 01/19/19 01/19/19 11:11 07:06 03:10 POC Glucose 184 H 208 H 264 H 01/18/19 01/18/19 01/18/19 21:59 21:17 17:08 POC Glucose 261 H 266 H 222 H Medical Necessity - Tobacco Use Smoking Status: Current some day smoker Tobacco Use: Chew, Pipe Assessment/Plan All Active Problems (Last Reviewed 01/12/19 @ 10:44 by Adriel Elizabeth MD) Syncope and collapse (Acute) CVA (cerebral vascular accident) (Acute) Syncope (Acute) Bradycardia (Acute) Intractable nausea and vomiting (Resolved) FLORY (acute kidney injury) (Acute) Nonketotic hyperglycinemia (Resolved) Nausea (Resolved) Abdominal pain (Resolved) Hematochezia (Resolved) 58 year old M with PMH of HTN, DM, anxiety/depression admitted to [facility] on 01/13/2019 with debility secondary to acute right MAGDI infarct, for greater than 3 hours of therapy daily with a goal of returning home at or near his prior level of independence. On 01/11/2019, patient presented to [facility] due left leg weakness. Patient stated he was sitting up in his recliner and when he awoke he was laying on the floor, voiced hitting head. CT of head showed no acute findings. MRI brain without contrast showed acute or subacute infarct right MAGDI, without hemorrhage. 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 MRA of neck showed normal bilateral cervical carotid and vertebral arteries. Echocardiogram showed EF of 35 to 40%, normal LA size. LDL 155, HgbA1c 9.0%. Developed FLORY: BUN/Cr 27/1.76. Patient on statin, plavix. Patient has history of positive snoring, daytime tiredness, awakens 1-2x/night for bathroom, and naps daily. Outpatient PSG study to be done, patient agreeable. Plan - PT for gait stability - OT for ADLs - ST - Right MAGDI infarct- On plavix, statin - HTN-goal blood pressure less than 130/80 mmHg. On clonidine. Was on clonidine, HCTZ and lisinopril at home. - 30 Day event recorder on discharge - DM type II HgbA1c 9.0%, on lantus, humalog S.C, accuchecks ac/hs - Depression/anxiety cymbalta 30 mg x 13 days and zoloft 25 mg x13 days then increase to 50 mg and discontinue Cymbalta then, on valium prn - HLD LDL 155 on statin, fenofibrate - neuropathy- chronic per patient-on Lyrica 100 mg p.o. 3 times daily - GI/DVT prophylaxis on protonix/heparin, knee high haylie hose - Further medical management per hospitalist- consult - CKD?monitor creatinine, avoid nephrotoxic drugs, may need nephrology consult. Creatinine 1.66 on 01/18/2019. - Analgesics as needed - Bowel protocol - Fall precautions - F/U with PCP, neurology, cardiology
[2019-01-19] MEDS: Pregabalin 50 MG Capsule 100 MG PO ×2 (14:56→23:12)
--- NOTE | 2019-01-19 15:00 | NURSING ---
Dr. Bower reviewed current blood sugars.
[2019-01-19 15:30] VITALS: BMI 28.0
[2019-01-19 16:31] LABS: Bedside Glucose 248 mg/dL (70-110)
[2019-01-19 19:24] VITALS: BP 113/57; PULSE 74; RESP 18; TEMP 36.6; O2SAT 96
[2019-01-19 20:11] LABS: Bedside Glucose 227 mg/dL (70-110)
[2019-01-19] MEDS: Atorvastatin Calcium 80 MG Tablet PO (22:58)
[2019-01-19 23:11] LABS: Bedside Glucose 223 mg/dL (70-110)
[2019-01-20 05:00] VITALS: BMI 28.0
[2019-01-20 06:16] LABS: Bedside Glucose 197 mg/dL (70-110)
[2019-01-20] MEDS: Pregabalin 50 MG Capsule 100 MG PO ×3 (06:43→21:25)
[2019-01-20 07:00] VITALS: BP 142/85; PULSE 70; RESP 16; TEMP 36.6; O2SAT 98
[2019-01-20] MEDS: cloNIDine HCl 0.1 MG Tablet PO ×2 (07:49→21:25)
[2019-01-20] MEDS: Clopidogrel Bisulfate 75 MG Tablet PO (07:49)
[2019-01-20] MEDS: Pantoprazole Sodium 40 MG Tablet PO (07:49)
[2019-01-20] MEDS: DULoxetine Hcl 30 MG Capsule PO (07:49)
[2019-01-20] MEDS: Heparin Injection (Vial) 5,000 UNIT/ML VIAL 5000 UNIT SC ×2 (07:50→21:24)
[2019-01-20] MEDS: Sertraline 50 MG Tablet 25 MG PO (07:50)
[2019-01-20] MEDS: Insulin Lispro 100 UNIT/ML INSULN.PEN 8 UNIT SC ×3 (07:50→17:28)
[2019-01-20] MEDS: Insulin Lispro 100 UNIT/ML INSULN.PEN SC (07:50)
[2019-01-20] MEDS: Senna/Docusate Sodium 1 Tablet 2 TABLET PO (07:50)
[2019-01-20] MEDS: Fenofibrate 48 MG Tablet PO (07:50)
--- NOTE | 2019-01-20 10:05 | PN_ITS ---
Subjective: CC follow-up acute CVA Patient seen participating in physical therapy. Patient blood glucose control has not been optimal dose of his insulin regimen adjusted Objective: GENERAL: cooperative HEENT: Atraumatic; EYES; Anicteric, NECK; supple, normal thyroid, RESPIRATORY: Diminished to auscultation CARDIOVASCULAR: Regular S1 S2, GI: soft, non-tender, normoactive bowel sounds, : No Renal angle tenderness; EXTREMITIES: No edema, no clubbing, MUSCULOSKELETAL: No Joint Tenderness; NEURO: Awake; left lower extremity flaccid paralysis SKIN: No Rash PSYCH; Normal affect Vitals/I&O's: Vital Signs Temp Pulse Resp BP Pulse Ox 97.9 F 70 16 142/85 H 98 01/20/19 07:00 01/20/19 07:00 01/20/19 07:00 01/20/19 07:00 01/20/19 07:00 Oxygen Delivery Method Room Air Weight: 92.2 kg Body Mass Index (BMI) 28.0 Finger Stick Blood Glucose 122 Intake and Output for Last 24 Hours 01/18/19 01/19/19 01/20/19 23:59 23:59 23:59 Intake Total 500 / 500 840 / 840 120 / 120 Balance 500 / 500 840 / 840 120 / 120 Laboratory Results 01/19/19 11:11: POC Glucose 184 H 01/19/19 16:23: POC Glucose 248 H 01/19/19 20:01: POC Glucose 227 H 01/19/19 22:56: POC Glucose 223 H 01/20/19 05:52: POC Glucose 197 H Current Medications Acetaminophen (Tylenol) 650 mg PO Q6H PRN PRN PRN Reason: Mild Pain (0-3/10)/Headache Atorvastatin Calcium (Lipitor) 80 mg PO QHS [facility] Last Admin: 01/19/19 22:58 Dose: 80 mg Documented by: Bisacodyl (Dulcolax) 10 mg RECTAL .PRN X 1 PRN PRN Reason: Constipation Clonidine (Catapres) 0.1 mg PO BID [facility] Last Admin: 01/20/19 07:49 Dose: 0.1 mg Documented by: Clopidogrel Bisulfate (Plavix) 75 mg PO DAILY [facility] Last Admin: 01/20/19 07:49 Dose: 75 mg Documented by: Diazepam (Valium) 5 mg PO BID PRN PRN PRN Reason: ANXIETY Duloxetine HCl (Cymbalta) 30 mg PO DAILY [facility] Stop: 01/27/19 10:01 Last Admin: 01/20/19 07:49 Dose: 30 mg Documented by: Fenofibrate (Tricor) 48 mg PO DAILY [facility] Last Admin: 01/20/19 07:50 Dose: 48 mg Documented by: Heparin Sodium (Porcine) (Heparin Na) 5,000 unit SC BID [facility] Last Admin: 01/20/19 07:50 Dose: 5,000 unit Documented by: Insulin Glargine (Lantus (Bkc)) 45 units SC DAILY@1999 [facility] Last Admin: 01/19/19 20:02 Dose: 45 u Documented by: Insulin Human Lispro (Humalog Kwikpen (Bkc)) 0 unit SC ACHS [facility]; Protocol Last Admin: 01/20/19 07:50 Dose: 2 u Documented by: Insulin Human Lispro (Humalog Kwikpen (Bkc)) 8 unit SC TIDAC [facility] Last Admin: 01/20/19 07:50 Dose: 8 units Documented by: Magnesium Hydroxide (Milk Of Magnesia) 30 ml PO .PRN X 1 PRN PRN Reason: Constipation Nutritional Formula (Lactose Free) (Glucerna Shake) 120 ml PO 4X/DAY [facility] Last Admin: 01/20/19 07:51 Dose: Not Given Documented by: Pantoprazole Sodium (Protonix) 40 mg PO DAILY [facility] Last Admin: 01/20/19 07:49 Dose: 40 mg Documented by: Pregabalin (Lyrica) 100 mg PO TID [facility] Last Admin: 01/20/19 06:43 Dose: 100 mg Documented by: Senna/Docusate Sodium (Senokot-S, Thalia-Colace) 2 tablet PO BID [facility] Last Admin: 01/20/19 07:50 Dose: 2 tablet Documented by: Sertraline HCl (Zoloft) 25 mg PO DAILY [facility] Stop: 01/26/19 10:01 Last Admin: 01/20/19 07:50 Dose: 25 mg Documented by: Sertraline HCl (Zoloft) 50 mg PO DAILY [facility] Medical Necessity - Tobacco Use Smoking Status: Current some day smoker Tobacco Use: Chew, Pipe Assessment/Plan All Active Problems (Last Reviewed 01/12/19 @ 10:44 by Adriel Elizabeth MD) Syncope and collapse (Acute) CVA (cerebral vascular accident) (Acute) Syncope (Acute) Bradycardia (Acute) Intractable nausea and vomiting (Resolved) FLORY (acute kidney injury) (Acute) Nonketotic hyperglycinemia (Resolved) Nausea (Resolved) Abdominal pain (Resolved) Hematochezia (Resolved) Patient is a 58-year-old gentleman admitted to the inpatient rehab unit following admission for acute CVA involving the MAGDI territory 1. 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 Able to move his left toes 2. Cardiomyopathy with an ejection fraction of 35 to 40% ~scheduled to undergo cardiology evaluation as outpatient 3. Diabetes mellitus type II ~Controlled; patient's oral hypoglycemics held. Placed on long acting insulin, Accu-Cheks a.c. and at bedtime and covered with sliding scale insulin ?01/20/2019: Adjusted patient insulin regimen 4. Dyslipidemia ~patient is on statin therapy, continued at home dose 5. Depression with anxiety ?Patient is on SSRI 6. DVT prophylaxis ?SC heparin Code Visit Inpatient E&M: 27502 Subs Hosp L2
--- NOTE | 2019-01-20 11:32 | PN.NEURO_ITS ---
Subjective: No issues overnight. Care discussed with the nursing staff. - Physical Exam General: Alert HEENT: Normocephalic Neck: Supple Lungs: Normal air movement Cardiovascular: Normal S1, Normal S2 Abdomen: Bowel Sounds Present Extremities: No cyanosis Neurological: - - Conscious, alert, CN II through XII grossly intact at present, power 5 x 5 right upper and lower extremities, left upper extremity 4 x 5 and left lower extremity 1 x 5, no sensory loss, no cerebellar signs, gait deferred, reflexes + B/L B/S/T/K/A, no pronator drift Psych/Mental Status: Normal Affect Vital Signs Temp Pulse Resp BP Pulse Ox 97.9 F 70 16 142/85 H 98 01/20/19 07:00 01/20/19 07:00 01/20/19 07:00 01/20/19 07:00 01/20/19 07:00 Oxygen Delivery Method Room Air Weight: 92.2 kg Body Mass Index (BMI) 28.0 Finger Stick Blood Glucose 122 Intake and Output for Last 24 Hours 01/18/19 01/19/19 01/20/19 23:59 23:59 23:59 Intake Total 500 / 500 840 / 840 120 / 120 Balance 500 / 500 840 / 840 120 / 120 POC Glucose 01/20/19 01/19/19 01/19/19 05:52 22:56 20:01 POC Glucose 197 H 223 H 227 H 01/19/19 01/19/19 16:23 11:11 POC Glucose 248 H 184 H Medical Necessity - Tobacco Use Smoking Status: Current some day smoker Tobacco Use: Chew, Pipe Assessment/Plan All Active Problems (Last Reviewed 01/12/19 @ 10:44 by Adriel Elizabeth MD) Syncope and collapse (Acute) CVA (cerebral vascular accident) (Acute) Syncope (Acute) Bradycardia (Acute) Intractable nausea and vomiting (Resolved) FLORY (acute kidney injury) (Acute) Nonketotic hyperglycinemia (Resolved) Nausea (Resolved) Abdominal pain (Resolved) Hematochezia (Resolved) 58 year old M with PMH of HTN, DM, anxiety/depression admitted to [facility] on 01/13/2019 with debility secondary to acute right MAGDI infarct, for greater than 3 hours of therapy daily with a goal of returning home at or near his prior level of independence. On 01/11/2019, patient presented to [facility] due left leg weakness. Patient stated he was sitting up in his recliner and when he awoke he was laying on the floor, voiced hitting head. CT of head showed no acute findings. MRI brain without contrast showed acute or subacute infarct right MAGDI, without hemorrhage. 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 MRA of neck showed normal bilateral cervical carotid and vertebral arteries. Echocardiogram showed EF of 35 to 40%, normal LA size. LDL 155, HgbA1c 9.0%. Developed FLORY: BUN/Cr 27/1.76. Patient on statin, plavix. Patient has history of positive snoring, daytime tiredness, awakens 1-2x/night for bathroom, and naps daily. Outpatient PSG study to be done, patient agreeable. Plan - PT for gait stability - OT for ADLs - ST - Right MAGDI infarct- On plavix, statin - HTN-goal blood pressure less than 130/80 mmHg. On clonidine. Was on clonidine, HCTZ and lisinopril at home. - 30 Day event recorder on discharge - DM type II HgbA1c 9.0%, on lantus, humalog S.C, accuchecks ac/hs - Depression/anxiety cymbalta 30 mg x 13 days and zoloft 25 mg x13 days then increase to 50 mg and discontinue Cymbalta then, on valium prn - HLD LDL 155 on statin, fenofibrate - neuropathy- chronic per patient-on Lyrica 100 mg p.o. 3 times daily - GI/DVT prophylaxis on protonix/heparin, knee high haylie hose - Further medical management per hospitalist- consult - CKD?monitor creatinine, avoid nephrotoxic drugs, may need nephrology consult. Creatinine 1.66 on 01/18/2019. - Analgesics as needed - Bowel protocol - Fall precautions - F/U with PCP, neurology, cardiology
[2019-01-20 12:30] LABS: Bedside Glucose 144 mg/dL (70-110)
--- NOTE | 2019-01-20 14:21 | NURSING ---
discussed with therapy and personal alarm removed. pt voiced understanding to use call light for needs.
[2019-01-20 17:00] VITALS: BMI 28.0
[2019-01-20 17:41] LABS: Bedside Glucose 101 mg/dL (70-110)
[2019-01-20 19:03] VITALS: BP 134/73; PULSE 67; RESP 17; TEMP 36.7; O2SAT 95
[2019-01-20 20:46] LABS: Bedside Glucose 137 mg/dL (70-110)
[2019-01-20] MEDS: Atorvastatin Calcium 80 MG Tablet PO (21:25)
[2019-01-21 01:55] VITALS: BMI 28.0
[2019-01-21 06:26] LABS: Bedside Glucose 88 mg/dL (70-110)
--- NOTE | 2019-01-21 06:34 | NURSING ---
Refusing Lyrica - states I can't tell the difference if I take it or not. It seems to cause a headache.
[2019-01-21] MEDS: Fenofibrate 48 MG Tablet PO (08:12)
[2019-01-21] MEDS: Senna/Docusate Sodium 1 Tablet 2 TABLET PO ×2 (08:12→20:24)
[2019-01-21] MEDS: Insulin Lispro 100 UNIT/ML INSULN.PEN 8 UNIT SC ×3 (08:13→16:48)
[2019-01-21] MEDS: Sertraline 50 MG Tablet 25 MG PO (08:13)
[2019-01-21] MEDS: Clopidogrel Bisulfate 75 MG Tablet PO (08:13)
[2019-01-21] MEDS: DULoxetine Hcl 30 MG Capsule PO (08:13)
[2019-01-21] MEDS: cloNIDine HCl 0.1 MG Tablet PO ×2 (08:13→20:23)
[2019-01-21] MEDS: Heparin Injection (Vial) 5,000 UNIT/ML VIAL 5000 UNIT SC ×2 (08:14→20:20)
[2019-01-21] MEDS: Pantoprazole Sodium 40 MG Tablet PO (08:15)
[2019-01-21 08:43] VITALS: BP 139/74; PULSE 60; RESP 18; TEMP 36.7; O2SAT 95
[2019-01-21 11:36] LABS: Bedside Glucose 160 mg/dL (70-110)
[2019-01-21] MEDS: Insulin Lispro 100 UNIT/ML INSULN.PEN SC ×3 (12:09→20:20)
[2019-01-21 12:52] VITALS: BMI 28.0
--- NOTE | 2019-01-21 14:04 | NURSING ---
Pt refusing 2p scheduled dose of Lyrica. States it gives him a headache and doesn't really help with my arm tingling. Reported to STEPHANIE.
[2019-01-21 16:45] LABS: Bedside Glucose 197 mg/dL (70-110)
[2019-01-21 19:34] VITALS: BP 129/72; PULSE 69; RESP 18; TEMP 36.9; O2SAT 92
[2019-01-21] MEDS: Pregabalin 50 MG Capsule 100 MG PO (20:22)
[2019-01-21] MEDS: Atorvastatin Calcium 80 MG Tablet PO (20:23)
[2019-01-21 20:36] LABS: Bedside Glucose 214 mg/dL (70-110)
[2019-01-22] VITALS: BMI 28.0
[2019-01-22 06:15] LABS: Bedside Glucose 194 mg/dL (70-110)
[2019-01-22] MEDS: Pregabalin 50 MG Capsule 100 MG PO ×3 (06:43→20:27)
[2019-01-22 07:33] VITALS: BP 141/88; PULSE 59; RESP 16; TEMP 36.6; O2SAT 98
[2019-01-22] MEDS: Insulin Lispro 100 UNIT/ML INSULN.PEN 8 UNIT SC ×3 (07:40→17:26)
[2019-01-22] MEDS: Insulin Lispro 100 UNIT/ML INSULN.PEN SC ×3 (07:40→20:32)
[2019-01-22] MEDS: Fenofibrate 48 MG Tablet PO (07:42)
[2019-01-22] MEDS: Sertraline 50 MG Tablet 25 MG PO (07:42)
[2019-01-22] MEDS: DULoxetine Hcl 30 MG Capsule PO (07:42)
[2019-01-22] MEDS: Clopidogrel Bisulfate 75 MG Tablet PO (07:43)
[2019-01-22] MEDS: cloNIDine HCl 0.1 MG Tablet PO ×2 (07:43→20:22)
[2019-01-22] MEDS: Heparin Injection (Vial) 5,000 UNIT/ML VIAL 5000 UNIT SC ×2 (07:43→20:22)
[2019-01-22] MEDS: Senna/Docusate Sodium 1 Tablet 2 TABLET PO ×2 (07:43→20:21)
[2019-01-22] MEDS: Pantoprazole Sodium 40 MG Tablet PO (07:43)
--- NOTE | 2019-01-22 10:42 | PCM.PN.HOSP ---
Subjective: CC follow-up acute CVA Patient seen he is thrilled he is able to finally lift his leg against gravity off the bed. Objective: GENERAL: cooperative HEENT: Atraumatic; EYES; Anicteric, NECK; supple, normal thyroid, RESPIRATORY: Diminished to auscultation CARDIOVASCULAR: Regular S1 S2, GI: soft, non-tender, normoactive bowel sounds, : No Renal angle tenderness; EXTREMITIES: No edema, no clubbing, MUSCULOSKELETAL: No Joint Tenderness; NEURO: Awake; left lower extremity flaccid paralysis SKIN: No Rash PSYCH; Normal affect Vitals/I&O's: Vital Signs Temp Pulse Resp BP Pulse Ox 98 F 59 L 16 141/88 H 98 01/22/19 07:33 01/22/19 07:33 01/22/19 07:33 01/22/19 07:33 01/22/19 07:33 Oxygen Delivery Method Room Air Weight: 92.2 kg Body Mass Index (BMI) 28.0 Finger Stick Blood Glucose 122 Intake and Output for Last 24 Hours 01/20/19 01/21/19 01/22/19 23:59 23:59 23:59 Intake Total 590 / 590 400 / 400 Output Total 500 / 500 Balance 90 / 90 400 / 400 Laboratory Results 01/21/19 11:29: POC Glucose 160 H 01/21/19 16:41: POC Glucose 197 H 01/21/19 20:16: POC Glucose 214 H 01/22/19 06:10: POC Glucose 194 H Current Medications Acetaminophen (Tylenol) 650 mg PO Q6H PRN PRN PRN Reason: Mild Pain (0-3/10)/Headache Atorvastatin Calcium (Lipitor) 80 mg PO QHS [facility] Last Admin: 01/21/19 20:23 Dose: 80 mg Documented by: Bisacodyl (Dulcolax) 10 mg RECTAL .PRN X 1 PRN PRN Reason: Constipation Clonidine (Catapres) 0.1 mg PO BID [facility] Last Admin: 01/22/19 07:43 Dose: 0.1 mg Documented by: Clopidogrel Bisulfate (Plavix) 75 mg PO DAILY [facility] Last Admin: 01/22/19 07:43 Dose: 75 mg Documented by: Diazepam (Valium) 5 mg PO BID PRN PRN PRN Reason: ANXIETY Duloxetine HCl (Cymbalta) 30 mg PO DAILY [facility] Stop: 01/27/19 10:01 Last Admin: 01/22/19 07:42 Dose: 30 mg Documented by: Fenofibrate (Tricor) 48 mg PO DAILY [facility] Last Admin: 01/22/19 07:42 Dose: 48 mg Documented by: Heparin Sodium (Porcine) (Heparin Na) 5,000 unit SC BID [facility] Last Admin: 01/22/19 07:43 Dose: 5,000 unit Documented by: Insulin Glargine (Lantus (Bkc)) 45 units SC DAILY@2000 [facility] Last Admin: 01/21/19 20:21 Dose: 45 u Documented by: Insulin Human Lispro (Humalog Kwikpen (Bkc)) 0 unit SC ACHS [facility]; Protocol Last Admin: 01/22/19 07:40 Dose: 2 u Documented by: Insulin Human Lispro (Humalog Kwikpen (Bkc)) 8 unit SC TIDAC [facility] Last Admin: 01/22/19 07:40 Dose: 8 units Documented by: Magnesium Hydroxide (Milk Of Magnesia) 30 ml PO .PRN X 1 PRN PRN Reason: Constipation Nutritional Formula (Lactose Free) (Glucerna Shake) 120 ml PO 4X/DAY [facility] Last Admin: 01/22/19 07:47 Dose: Not Given Documented by: Pantoprazole Sodium (Protonix) 40 mg PO DAILY [facility] Last Admin: 01/22/19 07:43 Dose: 40 mg Documented by: Pregabalin (Lyrica) 100 mg PO TID [facility] Last Admin: 01/22/19 06:43 Dose: 50 mg Documented by: Senna/Docusate Sodium (Senokot-S, Thalia-Colace) 2 tablet PO BID [facility] Last Admin: 01/22/19 07:43 Dose: 2 tablet Documented by: Sertraline HCl (Zoloft) 25 mg PO DAILY [facility] Stop: 01/26/19 10:01 Last Admin: 01/22/19 07:42 Dose: 25 mg Documented by: Sertraline HCl (Zoloft) 50 mg PO DAILY [facility] Medical Necessity - Tobacco Use Smoking Status: Current some day smoker Tobacco Use: Chew, Pipe Assessment/Plan All Active Problems (Last Reviewed 01/12/19 @ 10:44 by Adriel Elizabeth MD) Syncope and collapse (Acute) CVA (cerebral vascular accident) (Acute) Syncope (Acute) Bradycardia (Acute) Intractable nausea and vomiting (Resolved) FLORY (acute kidney injury) (Acute) Nonketotic hyperglycinemia (Resolved) Nausea (Resolved) Abdominal pain (Resolved) Hematochezia (Resolved) Patient is a 58-year-old gentleman admitted to the inpatient rehab unit following admission for acute CVA involving the MAGDI territory 1. 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 Able to move his left toes ~01/22/2019: Patient regaining some function in his left lower extremity able to raise his left leg against gravity while in bed 2. Cardiomyopathy with an ejection fraction of 35 to 40% ~scheduled to undergo cardiology evaluation as outpatient 3. Diabetes mellitus type II ~Controlled; patient's oral hypoglycemics held. Placed on long acting insulin, Accu-Cheks a.c. and at bedtime and covered with sliding scale insulin ?01/20/2019: Adjusted patient insulin regimen 4. Dyslipidemia ~patient is on statin therapy, continued at home dose 5. Depression with anxiety ?Patient is on SSRI 6. DVT prophylaxis ?SC heparin Code Visit Inpatient E&M: 68675 Subs Hosp L2
[2019-01-22 11:20] LABS: Bedside Glucose 91 mg/dL (70-110)
--- NOTE | 2019-01-22 14:15 | NURSING ---
pt assisted to W/C x2 assist and self propelled down hallways with staff standby x2 laps. Tolerated well.
[2019-01-22 16:16] LABS: Bedside Glucose 177 mg/dL (70-110)
[2019-01-22 20:08] VITALS: BP 161/86; PULSE 67; RESP 16; TEMP 36.7; O2SAT 98
[2019-01-22] MEDS: Atorvastatin Calcium 80 MG Tablet PO (20:22)
[2019-01-22 21:10] LABS: Bedside Glucose 158 mg/dL (70-110)
[2019-01-23 00:22] VITALS: BMI 28.0
[2019-01-23] MEDS: Pregabalin 50 MG Capsule 100 MG PO ×3 (06:10→19:53)
[2019-01-23 07:00] VITALS: BP 147/83; PULSE 62; RESP 17; TEMP 36.4; O2SAT 98
[2019-01-23 07:01] LABS: Bedside Glucose 196 mg/dL (70-110)
[2019-01-23] MEDS: Insulin Lispro 100 UNIT/ML INSULN.PEN 8 UNIT SC ×3 (08:16→17:20)
[2019-01-23] MEDS: Insulin Lispro 100 UNIT/ML INSULN.PEN SC ×2 (08:17→12:19)
[2019-01-23] MEDS: cloNIDine HCl 0.1 MG Tablet PO ×2 (08:18→19:50)
[2019-01-23] MEDS: Fenofibrate 48 MG Tablet PO (08:18)
[2019-01-23] MEDS: Clopidogrel Bisulfate 75 MG Tablet PO (08:18)
[2019-01-23] MEDS: DULoxetine Hcl 30 MG Capsule PO (08:18)
[2019-01-23] MEDS: Sertraline 50 MG Tablet 25 MG PO (08:18)
[2019-01-23] MEDS: Pantoprazole Sodium 40 MG Tablet PO (08:18)
[2019-01-23] MEDS: Heparin Injection (Vial) 5,000 UNIT/ML VIAL 5000 UNIT SC ×2 (08:19→19:51)
--- NOTE | 2019-01-23 09:14 | PCM.PN.NEU ---
Subjective: No issues overnight per nursing, recently lycia decreased to 50 mg bid, effective per patient with chronic neuropathy. Patient continues to tolerate therapies well. - Physical Exam General: Alert, Oriented x3, Cooperative HEENT: Atraumatic, PERRLA Oral: Moist Mucosa Neck: Supple, No JVD Lungs: Clear to auscultation, Normal air movement Cardiovascular: Regular rate, Regular Rhythm Abdomen: Bowel Sounds Present, Soft, Non Tender Extremities: No clubbing, No cyanosis, No edema Skin: No rashes, No breakdown Neurological: Cranial nerves II-XII grossly intact, Deep Tendon Reflexes 2+/4 and Symmetrical, - - motor strength RUE/RLE 5/5, LUE 4/5 LLE 3/5. sensation intact with tactile from vivas to bilateral feet Psych/Mental Status: Normal Affect, Appropriate, Alert and oriented to time, place, person, mood and affect Vital Signs Temp Pulse Resp BP Pulse Ox 97.6 F L 62 17 147/83 H 98 01/23/19 07:00 01/23/19 07:00 01/23/19 07:00 01/23/19 07:00 01/23/19 07:00 Oxygen Delivery Method Room Air Weight: 92.2 kg Body Mass Index (BMI) 28.0 Finger Stick Blood Glucose 122 Intake and Output for Last 24 Hours 01/21/19 01/22/19 01/23/19 23:59 23:59 23:59 Intake Total 400 / 400 Output Total 400 / 400 Balance 0 / 0 POC Glucose 01/23/19 01/22/19 01/22/19 06:54 20:29 16:11 POC Glucose 196 H 158 H 177 H 01/22/19 11:15 POC Glucose 91 Medical Necessity - Tobacco Use Smoking Status: Current some day smoker Tobacco Use: Chew, Pipe Assessment/Plan All Active Problems (Last Reviewed 01/12/19 @ 10:44 by Adriel Elizabeth MD) Syncope and collapse (Acute) CVA (cerebral vascular accident) (Acute) Syncope (Acute) Bradycardia (Acute) Intractable nausea and vomiting (Resolved) FLORY (acute kidney injury) (Acute) Nonketotic hyperglycinemia (Resolved) Nausea (Resolved) Abdominal pain (Resolved) Hematochezia (Resolved) The patient is a 58 year old M with PMH of HTN, DM type II, anxiety, depression admitted to [facility] on 01/13/2019 for 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 On 01/11/2019, patient presented to [facility] due to syncopal episode and left leg weakness. Patient stated he was sitting up in his recliner and when he awoke he was laying on the floor, voiced hitting head. CT of head showed no acute findings. MRI brain without contrast showed acute or subacute infarct right MAGDI, without hemorrhage. 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 MRA of neck showed normal bilateral cervical carotid and vertebral arteries. Echocardiogram showed EF of 35 to 40%, stage I diastolic dysfunction, posterior?basal severely hypokinetic, and inferior basal severely hypokinetic, unable to estimate RV systolic pressure due to insufficient tricuspid regurgitant envelope. LDL 155, HgbA1c 9.0%. Developed FLORY: BUN/Cr 27/1.76. Patient on statin, plavix, and aspirin discontinued. No antihypertensives for 5 to 7 days post stroke unless systolic is 200. . Patient has history of positive snoring, daytime tiredness, awakens 1-2x/night for bathroom, and naps daily. Outpatient PSG study to be done, patient agreeable. Patient lives with spouse in a two-story house with first-floor set up, modified independent with ADLs, mobility with walker or cane, and driving to hospitalization. Plan - PT for mobility - OT for ADLs - ST for evaluation - Right MAGDI infarct- BP goal <130/80, on statin and antihypertensive - HTN BP goal <130/80 on catapres - DM type II HgbA1c 9.0%, on lantus, humalog S.C, accuchecks ac/hs - Depression/anxiety cymbalta 30 mg x 13 days and zoloft 25 mg x13 days then increase to 50 mg, on valium prn - HLD LDL 155 on statin, fenofibrate - neuropathy- chronic on lyrica - GI/DVT prophylaxis on protonix/heparin, knee high haylie hose - MIRACLE - PSG outpatient - Medical management per hospitalist- consult - FLORY on 01/18 Bun/Cr 39/1.66 - Cardiomyopathy EF 35-40% f/u with cardiology at discharge - Analgesics as needed - Bowel protocol - Fall precautions - F/U with PCP, neurology, cardiology ( Dr. Dobbs), outpatient PSG
[2019-01-23 12:15] LABS: Bedside Glucose 184 mg/dL (70-110)
[2019-01-23 12:37] VITALS: BMI 28.0
--- NOTE | 2019-01-23 12:46 | CASEMGMT ---
Addendum entered by Yissel Champion 01/23/19 14:37: [facility] accepted pt. Spoke with pt and and are agreeable to transfer there at [place]. Addendum entered by Yissel Champion 01/23/19 12:49: Spoke with [facility] and not in network with [facility] and does not accept Medicaid Pending. Will refer to [facility]. Original Note: [facility] unable to accept patient. Spoke with for alternative facilities. Referrals made to [facility] and [facility]. Insurance update on this day. Submitting Medicaid application on this day. Will continue to follow. ELLEN VanessaW
[2019-01-23 17:21] LABS: Bedside Glucose 122 mg/dL (70-110)
--- NOTE | 2019-01-23 18:02 | PN_ITS ---
Subjective: F/U CVA Able to flex his LLE, but not extend. LUE improving, but still weaker than his RUE. Vitals/I&O's: Vital Signs Temp Pulse Resp BP Pulse Ox 36.4 C L 62 17 147/83 H 98 01/23/19 07:00 01/23/19 07:00 01/23/19 07:00 01/23/19 07:00 01/23/19 07:00 Oxygen Delivery Method Room Air Weight: 92.2 kg Body Mass Index (BMI) 28.0 Finger Stick Blood Glucose 122 Intake and Output for Last 24 Hours 01/21/19 01/22/19 01/23/19 23:59 23:59 23:59 Intake Total 400 / 400 240 / 240 Output Total 400 / 400 Balance 0 / 0 240 / 240 General: Alert, No apparent distress HEENT: Atraumatic, Normocephalic Oral: Moist Mucosa, No Gingival or Mucosal Lesions/ Ulcerations Extremities: No edema, No Calf Tenderness Skin: No rashes, No breakdown, - - numerous tattoos Musculoskeletal: No Tenderness to Palpation of Joints or Extremities, No Muscle Wasting Neurological: - - MS 4/5 in LUE, 5/5 RUE, 3/5 LLE. Laboratory Results 01/22/19 20:29: POC Glucose 158 H 01/23/19 06:54: POC Glucose 196 H 01/23/19 12:09: POC Glucose 184 H 01/23/19 17:02: POC Glucose 122 H Current Medications Acetaminophen (Tylenol) 650 mg PO Q6H PRN PRN PRN Reason: Mild Pain (0-3/10)/Headache Atorvastatin Calcium (Lipitor) 80 mg PO QHS [facility] Last Admin: 01/22/19 20:22 Dose: 80 mg Documented by: Bisacodyl (Dulcolax) 10 mg RECTAL .PRN X 1 PRN PRN Reason: Constipation Clonidine (Catapres) 0.1 mg PO BID [facility] Last Admin: 01/23/19 08:18 Dose: 0.1 mg Documented by: Clopidogrel Bisulfate (Plavix) 75 mg PO DAILY [facility] Last Admin: 01/23/19 08:18 Dose: 75 mg Documented by: Diazepam (Valium) 5 mg PO BID PRN PRN PRN Reason: ANXIETY Duloxetine HCl (Cymbalta) 30 mg PO DAILY [facility] Stop: 01/27/19 10:01 Last Admin: 01/23/19 08:18 Dose: 30 mg Documented by: Fenofibrate (Tricor) 48 mg PO DAILY [facility] Last Admin: 01/23/19 08:18 Dose: 48 mg Documented by: Heparin Sodium (Porcine) (Heparin Na) 5,000 unit SC BID [facility] Last Admin: 01/23/19 08:19 Dose: 5,000 unit Documented by: Insulin Glargine (Lantus (Bkc)) 45 units SC DAILY@2000 [facility] Last Admin: 01/22/19 20:30 Dose: 45 u Documented by: Insulin Human Lispro (Humalog Kwikpen (Bk)) 0 unit SC ACHS [facility]; Protocol Last Admin: 01/23/19 17:19 Dose: Not Given Documented by: Insulin Human Lispro (Humalog Kwikpen (Bkc)) 8 unit SC TIDAC [facility] Last Admin: 01/23/19 17:20 Dose: 8 units Documented by: Magnesium Hydroxide (Milk Of Magnesia) 30 ml PO .PRN X 1 PRN PRN Reason: Constipation Pantoprazole Sodium (Protonix) 40 mg PO DAILY [facility] Last Admin: 01/23/19 08:18 Dose: 40 mg Documented by: Pregabalin (Lyrica) 100 mg PO TID [facility] Last Admin: 01/23/19 14:58 Dose: 50 mg Documented by: Senna/Docusate Sodium (Senokot-S, Thalia-Colace) 2 tablet PO BID [facility] Last Admin: 01/23/19 08:19 Dose: Not Given Documented by: Sertraline HCl (Zoloft) 25 mg PO DAILY [facility] Stop: 01/26/19 10:01 Last Admin: 01/23/19 08:18 Dose: 25 mg Documented by: Sertraline HCl (Zoloft) 50 mg PO DAILY [facility] Medical Necessity - Tobacco Use Smoking Status: Current some day smoker Tobacco Use: Chew, Pipe Assessment/Plan All Active Problems (Last Reviewed 01/12/19 @ 10:44 by Adriel Elizabeth MD) Syncope and collapse (Acute) CVA (cerebral vascular accident) (Acute) Syncope (Acute) Bradycardia (Acute) Intractable nausea and vomiting (Resolved) FLORY (acute kidney injury) (Acute) Nonketotic hyperglycinemia (Resolved) Nausea (Resolved) Abdominal pain (Resolved) Hematochezia (Resolved) 1. acute stroke * clinically improving * clopidogrel and atorvastatin * MRI showed acute or subacute CVA of MAGDI territory. 2. Syncope * Unsure if this is true syncopal episode as it was not witnessed but is a possible that the patient may try to stand up and his leg was weak and he just fell and hit his head having a concussion so he has antecedent amnesia * Cardiology on board and stress test ordered 3. Cardiomyopathy * Noted incidentally on the echocardiogram where his ejection fraction is now 35 to 40%. Back in April it was a 65%. * Cardiology on consultation * further cardiac work up as outpt. 4. Abnormal UA: Patient has 25 leukocyte esterase but nothing to suggest a urinary tract infection. No further work up 6. Diabetes mellitus type 2: * uncontrolled hyperglycemia * A1c 9 * increase basal from 35 to 45 * increase prandial from 5to 8 7. Depression and anxiety * I recommend transitioning from Cymbalta to sertraline. On the fourth will have patient resume his Cymbalta but not at 60 mg but at 30 mg and to initiate Zoloft 25 mg at that time and then do that for 1-2 weeks and then transition him over to Zoloft 50 mg and to discontinue Cymbalta. Code Visit Inpatient E&M: 68249 Subs Hosp L2
--- NOTE | 2019-01-23 18:39 | NURSING ---
reviewed and agree with MICROSTRATEGY ARCHITECT's charting
[2019-01-23 19:26] VITALS: BP 156/88; PULSE 56; RESP 16; TEMP 36.8; O2SAT 98
[2019-01-23] MEDS: Atorvastatin Calcium 80 MG Tablet PO (19:52)
[2019-01-23 20:02] VITALS: BMI 28.0
[2019-01-23 20:06] LABS: Bedside Glucose 132 mg/dL (70-110)
[2019-01-23 21:36] LABS: Bedside Glucose 137 mg/dL (70-110)
[2019-01-23 22:00] VITALS: PULSE 56; RESP 16
[2019-01-24] MEDS: Pregabalin 50 MG Capsule 100 MG PO ×3 (07:02→21:35)
[2019-01-24 07:07] LABS: Bedside Glucose 122 mg/dL (70-110)
[2019-01-24 07:33] VITALS: BP 140/73; PULSE 61; RESP 16; TEMP 36.6; O2SAT 99
[2019-01-24] MEDS: DULoxetine Hcl 30 MG Capsule PO (07:41)
[2019-01-24] MEDS: Fenofibrate 48 MG Tablet PO (07:41)
[2019-01-24] MEDS: Pantoprazole Sodium 40 MG Tablet PO (07:41)
[2019-01-24] MEDS: Clopidogrel Bisulfate 75 MG Tablet PO (07:41)
[2019-01-24] MEDS: cloNIDine HCl 0.1 MG Tablet PO ×2 (07:41→21:33)
[2019-01-24] MEDS: Sertraline 50 MG Tablet 25 MG PO (07:41)
[2019-01-24] MEDS: Heparin Injection (Vial) 5,000 UNIT/ML VIAL 5000 UNIT SC ×2 (07:41→21:33)
[2019-01-24] MEDS: Insulin Lispro 100 UNIT/ML INSULN.PEN 8 UNIT SC ×3 (07:42→16:54)
[2019-01-24 11:31] LABS: Bedside Glucose 208 mg/dL (70-110)
--- NOTE | 2019-01-24 11:35 | CCN.REFER ---
Insurance: Continued [place] [facility] [place]23[place]. Next update due 01/25/19. auth #[id number]
--- NOTE | 2019-01-24 11:39 | CASEMGMT ---
Insurance: Continued [place] [facility] [place]. Next update due 01/25/19. auth # [id number].
[2019-01-24] MEDS: Insulin Lispro 100 UNIT/ML INSULN.PEN SC ×2 (12:40→21:32)
--- NOTE | 2019-01-24 13:50 | PCM.PN.NEU ---
Subjective: Per nursing, no issues overnight. Tolerating therapies well and denies further questions. - Physical Exam General: Alert, Oriented x3, Cooperative HEENT: Atraumatic, PERRLA, EOMI Oral: Moist Mucosa Neck: Supple, No JVD Lungs: Clear to auscultation, Normal air movement Cardiovascular: Regular rate, Regular Rhythm Abdomen: Bowel Sounds Present, Soft, Non Tender Extremities: No clubbing, No cyanosis, No edema Neurological: Cranial nerves II-XII grossly intact, Deep Tendon Reflexes 2+/4 and Symmetrical, - - motor strength RUE/RLE 5/5, LUE 4/5 LLE 3/5. sensation intact with tactile from vivas to bilateral feet Psych/Mental Status: Normal Affect, Appropriate, Alert and oriented to time, place, person, mood and affect Vital Signs Temp Pulse Resp BP Pulse Ox 97.9 F 61 16 140/73 H 99 01/24/19 07:33 01/24/19 07:33 01/24/19 07:33 01/24/19 07:33 01/24/19 07:33 Oxygen Delivery Method Room Air Weight: 92.2 kg Body Mass Index (BMI) 28.0 Finger Stick Blood Glucose 122 Intake and Output for Last 24 Hours 01/22/19 01/23/19 01/24/19 23:59 23:59 23:59 Intake Total 400 / 400 480 / 480 320 / 320 Output Total 400 / 400 Balance 0 / 0 480 / 480 320 / 320 POC Glucose 01/24/19 01/24/19 01/23/19 11:18 06:09 21:14 POC Glucose 208 H 122 H 137 H 01/23/19 01/23/19 19:48 17:02 POC Glucose 132 H 122 H Medical Necessity - Tobacco Use Smoking Status: Current some day smoker Tobacco Use: Chew, Pipe Assessment/Plan All Active Problems (Last Reviewed 01/12/19 @ 10:44 by Adriel Elizabeth MD) Syncope and collapse (Acute) CVA (cerebral vascular accident) (Acute) Syncope (Acute) Bradycardia (Acute) Intractable nausea and vomiting (Resolved) FLORY (acute kidney injury) (Acute) Nonketotic hyperglycinemia (Resolved) Nausea (Resolved) Abdominal pain (Resolved) Hematochezia (Resolved) The patient is a 58 year old M with PMH of HTN, DM type II, anxiety, depression admitted to [facility] on 01/13/2019 for 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 On 01/11/2019, patient presented to [facility] due to syncopal episode and left leg weakness. Patient stated he was sitting up in his recliner and when he awoke he was laying on the floor, voiced hitting head. CT of head showed no acute findings. MRI brain without contrast showed acute or subacute infarct right MAGDI, without hemorrhage. 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 MRA of neck showed normal bilateral cervical carotid and vertebral arteries. Echocardiogram showed EF of 35 to 40%, stage I diastolic dysfunction, posterior?basal severely hypokinetic, and inferior basal severely hypokinetic, unable to estimate RV systolic pressure due to insufficient tricuspid regurgitant envelope. LDL 155, HgbA1c 9.0%. Developed FLORY: BUN/Cr 27/1.76. Patient on statin, plavix, and aspirin discontinued. No antihypertensives for 5 to 7 days post stroke unless systolic is 200. . Patient has history of positive snoring, daytime tiredness, awakens 1-2x/night for bathroom, and naps daily. Outpatient PSG study to be done, patient agreeable. Patient lives with spouse in a two-story house with first-floor set up, modified independent with ADLs, mobility with walker or cane, and driving to hospitalization. Plan - PT for mobility - OT for ADLs - ST for evaluation - Right MAGDI infarct- BP goal <130/80, on statin and antihypertensive - HTN BP goal <130/80 on catapres - DM type II HgbA1c 9.0%, on lantus, humalog S.C, accuchecks ac/hs - Depression/anxiety cymbalta 30 mg x 13 days (last dose 01/27/19) and zoloft 25 mg x13 days then increase to 50 mg (on 01/27/19) , on valium prn - HLD LDL 155 on statin, fenofibrate - neuropathy- chronic on lyrica - GI/DVT prophylaxis on protonix/heparin, knee high haylie hose - MIRACLE - PSG outpatient - Medical management per hospitalist- consult - FLORY on 01/18 Bun/Cr 39/1.66 - Cardiomyopathy EF 35-40% f/u with cardiology at discharge - Analgesics as needed - Bowel protocol - Fall precautions - F/U with PCP, neurology, cardiology ( Dr. Dobbs), outpatient PSG
[2019-01-24 16:23] VITALS: BMI 28.0
[2019-01-24 16:40] LABS: Bedside Glucose 119 mg/dL (70-110)
[2019-01-24 19:29] VITALS: BP 154/73; PULSE 67; RESP 16; TEMP 36.7; O2SAT 99
[2019-01-24 21:20] VITALS: PULSE 67; RESP 16; O2SAT 99; BMI 28.0
[2019-01-24] MEDS: Atorvastatin Calcium 80 MG Tablet PO (21:33)
[2019-01-24 22:01] LABS: Bedside Glucose 181 mg/dL (70-110)
--- NOTE | 2019-01-25 03:20 | NURSING ---
Reviewed and agree with SITE FOREMAN documentation.
[2019-01-25] MEDS: Pregabalin 50 MG Capsule 100 MG PO ×3 (06:12→21:33)
--- NOTE | 2019-01-25 07:35 | NURSING ---
Patients blood sugar has been below 70 and asymptomatic and after first intervention it is now 70 and patient is eating his breakfast but has refused his insulin.
[2019-01-25 07:41] LABS: Bedside Glucose 70 mg/dL (70-110)
[2019-01-25 07:41] LABS: Bedside Glucose 65 mg/dL (70-110)
[2019-01-25 07:42] VITALS: BP 148/86; PULSE 61; RESP 18; TEMP 36.3; O2SAT 96
[2019-01-25] MEDS: Sertraline 50 MG Tablet 25 MG PO (09:44)
[2019-01-25] MEDS: Clopidogrel Bisulfate 75 MG Tablet PO (09:45)
[2019-01-25] MEDS: Fenofibrate 48 MG Tablet PO (09:45)
[2019-01-25] MEDS: Pantoprazole Sodium 40 MG Tablet PO (09:45)
[2019-01-25] MEDS: Heparin Injection (Vial) 5,000 UNIT/ML VIAL 5000 UNIT SC ×2 (09:45→20:39)
[2019-01-25] MEDS: DULoxetine Hcl 30 MG Capsule PO (09:45)
[2019-01-25] MEDS: cloNIDine HCl 0.1 MG Tablet PO ×2 (09:45→20:39)
[2019-01-25 09:51] LABS: Bedside Glucose 251 mg/dL (70-110)
--- NOTE | 2019-01-25 10:33 | PN.NEURO_ITS ---
Subjective: Per nursing, no issues overnight. Patient continues to tolerate therapies. - Physical Exam General: Alert, Oriented x3, Cooperative HEENT: Atraumatic, PERRLA, EOMI Oral: Moist Mucosa Neck: Supple, No JVD Lungs: Clear to auscultation, Normal air movement Cardiovascular: Regular rate, Regular Rhythm Abdomen: Bowel Sounds Present, Soft, Non Tender Extremities: No clubbing, No cyanosis, No edema Neurological: Cranial nerves II-XII grossly intact, Deep Tendon Reflexes 2+/4 and Symmetrical, - - motor strength RUE/RLE 5/5, LUE 4/5 LLE 3/5. sensation intact with tactile from vivas to bilateral feet Psych/Mental Status: Normal Affect, Appropriate, Alert and oriented to time, place, person, mood and affect Vital Signs Temp Pulse Resp BP Pulse Ox 97.4 F L 61 18 148/86 H 96 01/25/19 07:42 01/25/19 07:42 01/25/19 07:42 01/25/19 07:42 01/25/19 07:42 Oxygen Delivery Method Room Air Weight: 93.695 kg Body Mass Index (BMI) 28.0 Finger Stick Blood Glucose 122 Intake and Output for Last 24 Hours 01/23/19 01/24/19 01/25/19 23:59 23:59 23:59 Intake Total 480 / 480 640 / 640 Balance 480 / 480 640 / 640 POC Glucose 01/25/19 01/25/19 01/25/19 09:45 07:34 07:12 POC Glucose 251 H 70 65 L 01/24/19 01/24/19 01/24/19 21:27 16:35 11:18 POC Glucose 181 H 119 H 208 H STROKE Vital Signs/Narrative: Vital Signs Temp Pulse Resp BP Pulse Ox 01/25/19 07:42 97.4 F L 61 18 148/86 H 96 Medical Necessity - Tobacco Use Smoking Status: Current some day smoker Tobacco Use: Chew, Pipe Assessment/Plan All Active Problems (Last Reviewed 01/12/19 @ 10:44 by Adriel Elizabeth MD) Syncope and collapse (Acute) CVA (cerebral vascular accident) (Acute) Syncope (Acute) Bradycardia (Acute) Intractable nausea and vomiting (Resolved) FLORY (acute kidney injury) (Acute) Nonketotic hyperglycinemia (Resolved) Nausea (Resolved) Abdominal pain (Resolved) Hematochezia (Resolved) The patient is a 58 year old M with PMH of HTN, DM type II, anxiety, depression admitted to [facility] on 01/13/2019 for 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 On 01/11/2019, patient presented to [facility] due to syncopal episode and left leg weakness. Patient stated he was sitting up in his recliner and when he awoke he was laying on the floor, voiced hitting head. CT of head showed no acute findings. MRI brain without contrast showed acute or subacute infarct right MAGDI, without hemorrhage. 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 MRA of neck showed normal bilateral cervical carotid and vertebral arteries. Echocardiogram showed EF of 35 to 40%, stage I diastolic dysfunction, posterior?basal severely hypokinetic, and inferior basal severely hypokinetic, unable to estimate RV systolic pressure due to insufficient tricuspid regurgitant envelope. LDL 155, HgbA1c 9.0%. Developed FLORY: BUN/Cr 27/1.76. Patient on statin, plavix, and aspirin discon tinued. No antihypertensives for 5 to 7 days post stroke unless systolic is 200. . Patient has history of positive snoring, daytime tiredness, awakens 1- 2x/night for bathroom, and naps daily. Outpatient PSG study to be done, patient agreeable. Patient lives with spouse in a two-story house with first-floor set up, modified independent with ADLs, mobility with walker or cane, and driving to hospitalization. Plan - PT for mobility - OT for ADLs - ST for evaluation - Right MAGDI infarct- BP goal <130/80, on statin and antihypertensive - HTN BP goal <130/80 on catapres - DM type II HgbA1c 9.0%, on lantus, humalog S.C, accuchecks ac/hs - Depression/anxiety cymbalta 30 mg x 13 days (last dose 01/27/19) and zoloft 25 mg x13 days then increase to 50 mg (on 01/27/19) , on valium prn - HLD LDL 155 on statin, fenofibrate - neuropathy- chronic on lyrica - GI/DVT prophylaxis on protonix/heparin, knee high haylie hose - MIRACLE - PSG outpatient - Medical management per hospitalist- consult - FLORY on 01/18 Bun/Cr 39/1.66 - Cardiomyopathy EF 35-40% f/u with cardiology at discharge - Analgesics as needed - Bowel protocol - Fall precautions - F/U with PCP, neurology, cardiology ( Dr. Dobbs), outpatient PSG
--- NOTE | 2019-01-25 11:01 | CASEMGMT ---
Social Work Spoke with SACHI Jacob and received Medicaid Pending #[id number]. Insurance update on this day. Will await outcome. ELLEN VanessaW
[2019-01-25 11:40] LABS: Bedside Glucose 197 mg/dL (70-110)
[2019-01-25] MEDS: Insulin Lispro 100 UNIT/ML INSULN.PEN 8 UNIT SC ×2 (11:53→17:20)
[2019-01-25] MEDS: Insulin Lispro 100 UNIT/ML INSULN.PEN SC ×3 (11:53→20:40)
[2019-01-25 13:49] VITALS: BMI 28.0
--- NOTE | 2019-01-25 16:11 | CASEMGMT ---
Insurance: Continued stay revoew sent through [employer] this day. Auth # [id number]. Next update due 02/01/19.
[2019-01-25 16:55] LABS: Bedside Glucose 192 mg/dL (70-110)
[2019-01-25 19:25] VITALS: BP 122/66; PULSE 80; RESP 18; TEMP 37; O2SAT 93
[2019-01-25 20:30] VITALS: PULSE 64; RESP 16; O2SAT 98; BMI 28.0
[2019-01-25] MEDS: Atorvastatin Calcium 80 MG Tablet PO (20:38)
[2019-01-25] MEDS: Senna/Docusate Sodium 1 Tablet 2 TABLET PO (20:39)
[2019-01-25 20:56] LABS: Bedside Glucose 314 mg/dL (70-110)
--- NOTE | 2019-01-26 03:29 | NURSING ---
Reviewed and agree with [employer] documentation.
[2019-01-26] MEDS: Pregabalin 50 MG Capsule 100 MG PO ×3 (06:29→21:28)
[2019-01-26 06:40] LABS: Bedside Glucose 222 mg/dL (70-110)
[2019-01-26] MEDS: Insulin Lispro 100 UNIT/ML INSULN.PEN SC ×4 (07:39→21:24)
[2019-01-26] MEDS: Pantoprazole Sodium 40 MG Tablet PO (07:40)
[2019-01-26] MEDS: Fenofibrate 48 MG Tablet PO (07:40)
[2019-01-26] MEDS: Senna/Docusate Sodium 1 Tablet 2 TABLET PO (07:40)
[2019-01-26] MEDS: Sertraline 50 MG Tablet 25 MG PO (07:40)
[2019-01-26] MEDS: Insulin Lispro 100 UNIT/ML INSULN.PEN 8 UNIT SC ×3 (07:40→16:57)
[2019-01-26] MEDS: Clopidogrel Bisulfate 75 MG Tablet PO (07:41)
[2019-01-26] MEDS: Heparin Injection (Vial) 5,000 UNIT/ML VIAL 5000 UNIT SC ×2 (07:41→21:25)
[2019-01-26] MEDS: DULoxetine Hcl 30 MG Capsule PO (07:41)
[2019-01-26] MEDS: cloNIDine HCl 0.1 MG Tablet PO ×2 (07:41→21:25)
[2019-01-26 08:47] VITALS: BP 105/62; PULSE 69; RESP 16; TEMP 36.4; O2SAT 97
--- NOTE | 2019-01-26 09:04 | PN.NEURO_ITS ---
Subjective: Team meeting today. Further details per OT/PT/ST notes. All questions answered. - Physical Exam General: Alert, Oriented x3, Cooperative HEENT: Atraumatic, PERRLA, EOMI Oral: Moist Mucosa Neck: Supple, No JVD Lungs: Clear to auscultation, Normal air movement Cardiovascular: Regular rate, Regular Rhythm Abdomen: Bowel Sounds Present, Soft, Non Tender Extremities: No clubbing, No cyanosis, No edema Neurological: Cranial nerves II-XII grossly intact, Deep Tendon Reflexes 2+/4 and Symmetrical, - - Motor strength RUE/RLE 5/5, LUE 4/5 LLE 3/5. sensation intact with tactile from vivas to bilateral feet Psych/Mental Status: Normal Affect, Appropriate, Alert and oriented to time, place, person, mood and affect Vital Signs Temp Pulse Resp BP Pulse Ox 97.6 F L 69 16 105/62 97 01/26/19 08:47 01/26/19 08:47 01/26/19 08:47 01/26/19 08:47 01/26/19 08:47 Oxygen Delivery Method Room Air Weight: 93.695 kg Body Mass Index (BMI) 28.0 Finger Stick Blood Glucose 122 Intake and Output for Last 24 Hours 01/24/19 01/25/19 01/26/19 23:59 23:59 23:59 Intake Total 640 / 640 480 / 480 Balance 640 / 640 480 / 480 POC Glucose 01/26/19 01/25/19 01/25/19 06:32 20:32 16:44 POC Glucose 222 H 314 H 192 H 01/25/19 01/25/19 11:34 09:45 POC Glucose 197 H 251 H STROKE Vital Signs/Narrative: Vital Signs Temp Pulse Resp BP Pulse Ox 01/26/19 08:47 97.6 F L 69 16 105/62 97 Medical Necessity - Tobacco Use Smoking Status: Current some day smoker Tobacco Use: Chew, Pipe Assessment/Plan All Active Problems (Last Reviewed 01/12/19 @ 10:44 by Adriel Elizabeth MD) Syncope and collapse (Acute) CVA (cerebral vascular accident) (Acute) Syncope (Acute) Bradycardia (Acute) Intractable nausea and vomiting (Resolved) FLORY (acute kidney injury) (Acute) Nonketotic hyperglycinemia (Resolved) Nausea (Resolved) Abdominal pain (Resolved) Hematochezia (Resolved) The patient is a 58 year old M with PMH of HTN, DM type II, anxiety, depression admitted to [facility] on 01/13/2019 for 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 On 01/11/2019, patient presented to [facility] due to syncopal episode and left leg weakness. Patient stated he was sitting up in his recliner and when he awoke he was laying on the floor, voiced hitting head. CT of head showed no acute findings. MRI brain without contrast showed acute or subacute infarct right MAGDI, without hemorrhage. 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 MRA of neck showed normal bilateral cervical carotid and vertebral arteries. Echocardiogram showed EF of 35 to 40%, stage I diastolic dysfunction, posterior?basal severely hypokinetic, and inferior basal severely hypokinetic, unable to estimate RV systolic pressure due to insufficient tricuspid regurgitant envelope. LDL 155, HgbA1c 9.0%. Developed FLORY: BUN/Cr 27/1.76. Patient on statin, plavix, and aspirin discontinued. No antihypertensives for 5 to 7 days post stroke unless systolic is 200. . Patient has history of positive snoring, daytime tiredness, awakens 1- 2x/night for bathroom, and naps daily. Outpatient PSG study to be done, patient agreeable. Patient lives with spouse in a two-story house with first-floor set up, modified independent with ADLs, mobility with walker or cane, and driving to hospitalization. Plan - PT for mobility - OT for ADLs - ST for evaluation - Right MAGDI infarct- BP goal <130/80, on statin and antihypertensive - HTN BP goal <130/80 on catapres - DM type II HgbA1c 9.0%, on lantus, humalog S.C, accuchecks ac/hs - Depression/anxiety cymbalta 30 mg x 13 days (last dose 01/27/19) and zoloft 25 mg x13 days then increase to 50 mg (on 01/27/19) , on valium prn - HLD LDL 155 on statin, fenofibrate - neuropathy- chronic on lyrica - GI/DVT prophylaxis on protonix/heparin, knee high haylie hose - MIRACLE - PSG outpatient - Medical management per hospitalist- consult - FLORY on 01/18 Bun/Cr 39/1.66 recheck bmp - Cardiomyopathy EF 35-40% f/u with cardiology at discharge - Analgesics as needed - Bowel protocol - Fall precautions - F/U with PCP, neurology, cardiology ( Dr. Dobbs), outpatient PSG
[2019-01-26 11:26] LABS: Bedside Glucose 162 mg/dL (70-110)
--- NOTE | 2019-01-26 14:19 | CASEMGMT ---
Social Work IDT met with patient and for Team Meeting. Discussed patient's progress in therapy. Pt is improving - SBA for bed mobility, mod to max assist for transfers. Pt is walking 25 ft mod to max x1 and min x1 assist with FWW with major lean to the left, but focusing less on distance and more on mechanics. Pt walked on this day without left knee brace d/t knee buckling, which is an improvement. Pt is mod assist for LE bathing, min UE dressing and total for LE dressing. Pt is improving with speech and slowing down and working on recall. Patient was approved at [facility] and given Medicaid Pending # and will transfer when insurance issues DC date, but pt is benefitting from this therapy currently. NRD with insurance is 02/01. Will continue to follow. ELLEN Vanessa
[2019-01-26 14:28] LABS: Anion Gap 5 (5-15); BUN 38 mg/dL (7-18); BUN/Creat Ratio 22.1 RATIO (10-20); Calcium,Total 9.2 mg/dL (8.5-10.1); Chloride 106 mmol/L (98-107); Creatinine, Serum 1.72 mg/dL (0.70-1.30); EST Glomerular Filtration Rate 43 mL/min (>60); Est Glom Filt Rate - Afr Amer 52 mL/min (>60); Estimated Creatinine Clearance 47.16 ml/min; Glucose 124 mg/dL (74-106); Potassium 4.1 mmol/L (3.5-5.1); Sodium Level 142 mmol/L (136-145)
--- NOTE | 2019-01-26 14:44 | PN_ITS ---
Subjective: Follow up: CVA Patient states that he is feeling well but still having difficulty with his left side as it still weak though he is able to flex his leg but not extend it. Still leans over to his left particular when doing some medicine ball exercises. Vitals/I&O's: Vital Signs Temp Pulse Resp BP Pulse Ox 36.4 C L 69 16 105/62 97 01/26/19 08:47 01/26/19 08:47 01/26/19 08:47 01/26/19 08:47 01/26/19 08:47 Oxygen Delivery Method Room Air Weight: 93.695 kg Body Mass Index (BMI) 28.0 Finger Stick Blood Glucose 122 Intake and Output for Last 24 Hours 01/24/19 01/25/19 01/26/19 23:59 23:59 23:59 Intake Total 640 / 640 480 / 480 360 / 360 Balance 640 / 640 480 / 480 360 / 360 General: Alert, No apparent distress HEENT: Atraumatic, Normocephalic Oral: Moist Mucosa, No Gingival or Mucosal Lesions/ Ulcerations Neck: No Nodes, Thyroid Normal Size and Texture Lungs: Clear to auscultation, Normal air movement, No rhonchi, No wheeze Cardiovascular: Regular rate, Regular Rhythm, Normal S1, Normal S2 Abdomen: Bowel Sounds Present, Soft, Non Tender, Non-Distended Extremities: No edema, No Calf Tenderness Psych/Mental Status: Normal Affect, Appropriate Laboratory Results 01/25/19 16:44: POC Glucose 192 H 01/25/19 20:32: POC Glucose 314 H 01/26/19 06:32: POC Glucose 222 H 01/26/19 11:19: POC Glucose 162 H 01/26/19 14:11: Sodium 142, Potassium 4.1, Chloride 106, Carbon Dioxide 31.0, Anion Gap 5, BUN 38 H, Creatinine 1.72 H, Estim Creat Clear Calc 47.16, Est GFR (MDRD) Af Amer 52 L, Est GFR (MDRD) Non-Af 43 L, BUN/Creatinine Ratio 22.1 H, Glucose 124 H, Calcium 9.2 Current Medications Acetaminophen (Tylenol) 650 mg PO Q6H PRN PRN PRN Reason: Mild Pain (0-3/10)/Headache Atorvastatin Calcium (Lipitor) 80 mg PO QHS ANTONIO Last Admin: 01/25/19 20:38 Dose: 80 mg Documented by: Bisacodyl (Dulcolax) 10 mg RECTAL .PRN X 1 PRN PRN Reason: Constipation Clonidine (Catapres) 0.1 mg PO BID [facility] Last Admin: 01/26/19 07:41 Dose: 0.1 mg Documented by: Clopidogrel Bisulfate (Plavix) 75 mg PO DAILY [facility] Last Admin: 01/26/19 07:41 Dose: 75 mg Documented by: Diazepam (Valium) 5 mg PO BID PRN PRN PRN Reason: ANXIETY Duloxetine HCl (Cymbalta) 30 mg PO DAILY [facility] Stop: 01/27/19 10:01 Last Admin: 01/26/19 07:41 Dose: 30 mg Documented by: Fenofibrate (Tricor) 48 mg PO DAILY [facility] Last Admin: 01/26/19 07:40 Dose: 48 mg Documented by: Heparin Sodium (Porcine) (Heparin Na) 5,000 unit SC BID [facility] Last Admin: 01/26/19 07:41 Dose: 5,000 unit Documented by: Insulin Glargine (Lantus (Bkc)) 45 units SC DAILY@1999 [facility] Last Admin: 01/25/19 20:36 Dose: 45 u Documented by: Insulin Human Lispro (Humalog Kwikpen (Bkc)) 0 unit SC ACHS [facility]; Protocol Last Admin: 01/26/19 12:07 Dose: 1 u Documented by: Insulin Human Lispro (Humalog Kwikpen (Bkc)) 8 unit SC TIDAC [facility] Last Admin: 01/26/19 12:08 Dose: 8 units Documented by: Magnesium Hydroxide (Milk Of Magnesia) 30 ml PO .PRN X 1 PRN PRN Reason: Constipation Pantoprazole Sodium (Protonix) 40 mg PO DAILY [facility] Last Admin: 01/26/19 07:40 Dose: 40 mg Documented by: Pregabalin (Lyrica) 100 mg PO TID [facility] Last Admin: 01/26/19 14:20 Dose: 100 mg Documented by: Senna/Docusate Sodium (Senokot-S, Thalia-Colace) 2 tablet PO BID [facility] Last Admin: 01/26/19 07:40 Dose: 2 tablet Documented by: Sertraline HCl (Zoloft) 50 mg PO DAILY [facility] Medical Necessity - Tobacco Use Smoking Status: Current some day smoker Tobacco Use: Chew, Pipe Assessment/Plan All Active Problems (Last Reviewed 01/12/19 @ 10:44 by Adriel Elizabeth MD) Syncope and collapse (Acute) CVA (cerebral vascular accident) (Acute) Syncope (Acute) Bradycardia (Acute) Intractable nausea and vomiting (Resolved) FLORY (acute kidney injury) (Acute) Nonketotic hyperglycinemia (Resolved) Nausea (Resolved) Abdominal pain (Resolved) Hematochezia (Resolved) 1. acute stroke * clinically improving * clopidogrel and atorvastatin * MRI showed acute or subacute CVA of MAGDI territory. 2. Syncope * Unsure if this is true syncopal episode as it was not witnessed but is a possible that the patient may try to stand up and his leg was weak and he just fell and hit his head having a concussion so he has antecedent amnesia * Cardiology on board and stress test ordered 3. Cardiomyopathy * Noted incidentally on the echocardiogram where his ejection fraction is now 35 to 40%. Back in April it was a 65%. * Cardiology on consultation * further cardiac work up as outpt. 4. Abnormal UA: Patient has 25 leukocyte esterase but nothing to suggest a urinary tract infection. No further work up 6. Diabetes mellitus type 2: * Stable * A1c 9 * increase basal from 35 to 45 * increase prandial from 5to 8 7. Depression and anxiety * I recommend transitioning from Cymbalta to sertraline. On the fourth will have patient resume his Cymbalta but not at 60 mg but at 30 mg and to initiate Zoloft 25 mg at that time and then do that for 1-2 weeks and then transition him over to Zoloft 50 mg and to discontinue Cymbalta. * Patient appears to be in good spirits at this time but would still recommend outpatient counseling in addition to treatment with the SSRI. Code Visit Inpatient E&M: 38952 Subs Hosp L2
[2019-01-26 17:00] VITALS: BMI 28.0
[2019-01-26 17:06] LABS: Bedside Glucose 170 mg/dL (70-110)
[2019-01-26 21:01] LABS: Bedside Glucose 192 mg/dL (70-110)
[2019-01-26 21:03] VITALS: BP 137/81; PULSE 75; RESP 18; TEMP 36.4; O2SAT 98
[2019-01-26] MEDS: Atorvastatin Calcium 80 MG Tablet PO (21:25)
[2019-01-26 23:25] VITALS: BMI 28.0
[2019-01-27] MEDS: Pregabalin 50 MG Capsule 100 MG PO ×3 (05:48→22:40)
[2019-01-27 06:26] LABS: Bedside Glucose 196 mg/dL (70-110)
[2019-01-27 07:00] VITALS: BP 141/85; PULSE 67; RESP 18; TEMP 36.4; O2SAT 99
[2019-01-27] MEDS: Senna/Docusate Sodium 1 Tablet 2 TABLET PO ×2 (07:36→22:40)
[2019-01-27] MEDS: DULoxetine Hcl 30 MG Capsule PO (07:36)
[2019-01-27] MEDS: Heparin Injection (Vial) 5,000 UNIT/ML VIAL 5000 UNIT SC ×2 (07:37→22:40)
[2019-01-27] MEDS: Fenofibrate 48 MG Tablet PO (07:37)
[2019-01-27] MEDS: Insulin Lispro 100 UNIT/ML INSULN.PEN SC ×4 (07:37→22:38)
[2019-01-27] MEDS: Sertraline 50 MG Tablet PO (07:37)
[2019-01-27] MEDS: Clopidogrel Bisulfate 75 MG Tablet PO (07:37)
[2019-01-27] MEDS: Pantoprazole Sodium 40 MG Tablet PO (07:37)
[2019-01-27] MEDS: cloNIDine HCl 0.1 MG Tablet PO ×2 (07:37→22:40)
[2019-01-27] MEDS: Insulin Lispro 100 UNIT/ML INSULN.PEN 8 UNIT SC ×3 (07:38→17:12)
[2019-01-27 11:11] LABS: Bedside Glucose 213 mg/dL (70-110)
[2019-01-27 11:13] VITALS: BMI 28.0
--- NOTE | 2019-01-27 13:05 | PN.NEURO_ITS ---
Subjective: Per nursing, no issues overnight. Patient continues to tolerate therapies well. - Physical Exam General: Alert, Oriented x3, Cooperative HEENT: Atraumatic, PERRLA, EOMI Oral: Moist Mucosa Neck: Supple, No JVD Lungs: Clear to auscultation, Normal air movement Cardiovascular: Regular rate, Regular Rhythm Abdomen: Bowel Sounds Present, Soft, Non Tender Extremities: No clubbing, No cyanosis, No edema Neurological: Cranial nerves II-XII grossly intact, Deep Tendon Reflexes 2+/4 and Symmetrical - Motor strength RUE/RLE 5/5, LUE 4/5, LLE 3/5 sensation intact with tactile from vivas to bilateral feet Psych/Mental Status: Normal Affect, Appropriate, Alert and oriented to time, place, person, mood and affect Vital Signs Temp Pulse Resp BP Pulse Ox 97.6 F L 67 18 141/85 H 99 01/27/19 07:00 01/27/19 07:00 01/27/19 07:00 01/27/19 07:00 01/27/19 07:00 Oxygen Delivery Method Room Air Weight: 93.695 kg Body Mass Index (BMI) 28.0 Finger Stick Blood Glucose 122 Intake and Output for Last 24 Hours 01/25/19 01/26/19 01/27/19 23:59 23:59 23:59 Intake Total 480 / 480 360 / 360 640 / 640 Balance 480 / 480 360 / 360 640 / 640 Laboratory Tests Past 24 Hrs 01/26/19 14:11 Sodium 142 Potassium 4.1 Chloride 106 Carbon Dioxide 31.0 Anion Gap 5 BUN 38 H Creatinine 1.72 H Estim Creat Clear Calc 47.16 Est GFR (MDRD) Af Amer 52 L Est GFR (MDRD) Non-Af 43 L BUN/Creatinine Ratio 22.1 H Glucose 124 H Calcium 9.2 POC Glucose 01/27/19 01/27/19 01/26/19 11:04 06:23 20:54 POC Glucose 213 H 196 H 192 H 01/26/19 16:56 POC Glucose 170 H Medical Necessity - Tobacco Use Smoking Status: Current some day smoker Tobacco Use: Chew, Pipe Assessment/Plan All Active Problems (Last Reviewed 01/12/19 @ 10:44 by Adriel Elizabeth MD) Syncope and collapse (Acute) CVA (cerebral vascular accident) (Acute) Syncope (Acute) Bradycardia (Acute) Intractable nausea and vomiting (Resolved) FLORY (acute kidney injury) (Acute) Nonketotic hyperglycinemia (Resolved) Nausea (Resolved) Abdominal pain (Resolved) Hematochezia (Resolved) The patient is a 58 year old M with PMH of HTN, DM type II, anxiety, depression admitted to [facility] on 01/13/2019 for 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 On 01/11/2019, patient presented to [facility] due to syncopal episode and left leg weakness. Patient stated he was sitting up in his recliner and when he awoke he was laying on the floor, voiced hitting head. CT of head showed no acute findings. MRI brain without contrast showed acute or subacute infarct right MAGDI, without hemorrhage. 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 MRA of neck showed normal bilateral cervical carotid and vertebral arteries. Echocardiogram showed EF of 35 to 40%, stage I diastolic dysfunction, posterior?basal severely hypokinetic, and inferior basal severely hypokinetic, unable to estimate RV systolic pressure due to insufficient tricuspid regurgitant envelope. LDL 155, HgbA1c 9.0%. Developed FLORY: BUN/Cr 27/1.76. Patient on statin, plavix, and aspirin discontinued. No antihypertensives for 5 to 7 days post stroke unless systolic is 200. . Patient has history of positive snoring, daytime tiredness, awakens 1- 2x/night for bathroom, and naps daily. Outpatient PSG study to be done, patient agreeable. Patient lives with spouse in a two-story house with first-floor set up, modified independent with ADLs, mobility with walker or cane, and driving to hospitalization. Plan - PT for mobility - OT for ADLs - ST for evaluation - Right MAGDI infarct- BP goal <130/80, on statin and antihypertensive - HTN BP goal <130/80 on catapres - DM type II HgbA1c 9.0%, on lantus, humalog S.C, accuchecks ac/hs - Depression/anxiety cymbalta 30 mg x 13 days (last dose 01/27/19) and zoloft 25 mg x13 days then increase to 50 mg (on 01/27/19) , on valium prn - HLD LDL 155 on statin, fenofibrate - neuropathy- chronic on lyrica - GI/DVT prophylaxis on protonix/heparin, knee high haylie bernice - MIRACLE - PSG outpatient - Medical management per hospitalist- consult - FLORY on 01/26 BUN/Cr 38/1.72 - Cardiomyopathy EF 35-40% f/u with cardiology at discharge - Analgesics as needed - Bowel protocol - Fall precautions - F/U with PCP, neurology, cardiology ( Dr. Dobbs), outpatient PSG
[2019-01-27 16:55] LABS: Bedside Glucose 189 mg/dL (70-110)
[2019-01-27 19:17] VITALS: BP 136/69; PULSE 70; RESP 16; TEMP 36.6; O2SAT 99
[2019-01-27 21:41] LABS: Bedside Glucose 200 mg/dL (70-110)
[2019-01-27] MEDS: Atorvastatin Calcium 80 MG Tablet PO (22:40)
[2019-01-27 23:40] LABS: Bedside Glucose 200 mg/dL (70-110)
[2019-01-28 05:00] VITALS: BMI 28.0
[2019-01-28] MEDS: Pregabalin 50 MG Capsule 100 MG PO ×3 (06:34→22:19)
[2019-01-28 06:50] LABS: Bedside Glucose 203 mg/dL (70-110)
[2019-01-28 07:33] VITALS: BP 135/84; PULSE 64; RESP 12; TEMP 36.7; O2SAT 99
[2019-01-28] MEDS: Sertraline 50 MG Tablet PO (07:58)
[2019-01-28] MEDS: Insulin Lispro 100 UNIT/ML INSULN.PEN SC ×4 (07:59→22:19)
[2019-01-28] MEDS: Heparin Injection (Vial) 5,000 UNIT/ML VIAL 5000 UNIT SC ×2 (07:59→22:20)
[2019-01-28] MEDS: Clopidogrel Bisulfate 75 MG Tablet PO (07:59)
[2019-01-28] MEDS: Pantoprazole Sodium 40 MG Tablet PO (07:59)
[2019-01-28] MEDS: Insulin Lispro 100 UNIT/ML INSULN.PEN 8 UNIT SC ×3 (08:00→17:21)
[2019-01-28] MEDS: Senna/Docusate Sodium 1 Tablet 2 TABLET PO ×2 (08:02→22:19)
[2019-01-28] MEDS: cloNIDine HCl 0.1 MG Tablet PO ×2 (08:02→22:20)
[2019-01-28] MEDS: Fenofibrate 48 MG Tablet PO (08:05)
--- NOTE | 2019-01-28 11:04 | PN_ITS ---
Subjective: F/U CVA still weak on his left and leans to his left. Improving strength in LLE, but knee may buckle after standing for a prolonged period. Vitals/I&O's: Vital Signs Temp Pulse Resp BP Pulse Ox 36.7 C 64 12 135/84 H 99 01/28/19 07:33 01/28/19 07:33 01/28/19 07:33 01/28/19 07:33 01/28/19 07:33 Oxygen Delivery Method Room Air Weight: 93.695 kg Body Mass Index (BMI) 28.0 Finger Stick Blood Glucose 122 Intake and Output for Last 24 Hours 01/26/19 01/27/19 01/28/19 23:59 23:59 23:59 Intake Total 360 / 360 800 / 800 440 / 440 Balance 360 / 360 800 / 800 440 / 440 General: Alert, No apparent distress HEENT: Atraumatic, Normocephalic Extremities: No edema, No Calf Tenderness Skin: No rashes, No breakdown Musculoskeletal: No Tenderness to Palpation of Joints or Extremities, No Muscle Wasting Neurological: - - Able to flex and extend his left lower extremity Psych/Mental Status: Normal Affect, Appropriate Laboratory Results 01/27/19 11:04: POC Glucose 213 H 01/27/19 16:49: POC Glucose 189 H 01/27/19 19:45: POC Glucose 200 H 01/27/19 22:37: POC Glucose 200 H 01/28/19 06:33: POC Glucose 203 H Current Medications Acetaminophen (Tylenol) 650 mg PO Q6H PRN PRN PRN Reason: Mild Pain (0-3/10)/Headache Atorvastatin Calcium (Lipitor) 80 mg PO QHS [facility] Last Admin: 01/27/19 22:40 Dose: 80 mg Documented by: Bisacodyl (Dulcolax) 10 mg RECTAL .PRN X 1 PRN PRN Reason: Constipation Clonidine (Catapres) 0.1 mg PO BID [facility] Last Admin: 01/28/19 08:02 Dose: 0.1 mg Documented by: Clopidogrel Bisulfate (Plavix) 75 mg PO DAILY [facility] Last Admin: 01/28/19 07:59 Dose: 75 mg Documented by: Diazepam (Valium) 5 mg PO BID PRN PRN PRN Reason: ANXIETY Fenofibrate (Tricor) 48 mg PO DAILY [facility] Last Admin: 01/28/19 08:05 Dose: 48 mg Documented by: Heparin Sodium (Porcine) (Heparin Na) 5,000 unit SC BID [facility] Last Admin: 01/28/19 07:59 Dose: 5,000 unit Documented by: Insulin Glargine (Lantus (Bkc)) 45 units SC DAILY@1999 [facility] Last Admin: 01/27/19 19:46 Dose: 45 u Documented by: Insulin Human Lispro (Humalog Kwikpen (Bkc)) 0 unit SC ACHS [facility]; Protocol Last Admin: 01/28/19 07:59 Dose: 2 u Documented by: Insulin Human Lispro (Humalog Kwikpen (Bkc)) 8 unit SC TIDAC [facility] Last Admin: 01/28/19 08:00 Dose: 8 units Documented by: Magnesium Hydroxide (Milk Of Magnesia) 30 ml PO .PRN X 1 PRN PRN Reason: Constipation Pantoprazole Sodium (Protonix) 40 mg PO DAILY [facility] Last Admin: 01/28/19 07:59 Dose: 40 mg Documented by: Pregabalin (Lyrica) 100 mg PO TID [facility] Last Admin: 01/28/19 06:34 Dose: 100 mg Documented by: Senna/Docusate Sodium (Senokot-S, Thalia-Colace) 2 tablet PO BID [facility] Last Admin: 01/28/19 08:02 Dose: 2 tablet Documented by: Sertraline HCl (Zoloft) 50 mg PO DAILY [facility] Last Admin: 01/28/19 07:58 Dose: 50 mg Documented by: STROKE Vital Signs/Narrative: Vital Signs Temp Pulse Resp BP Pulse Ox 01/28/19 07:33 36.7 C 64 12 135/84 H 99 Medical Necessity - Tobacco Use Smoking Status: Current some day smoker Tobacco Use: Chew, Pipe Assessment/Plan All Active Problems (Last Reviewed 01/12/19 @ 10:44 by Adriel Elizabeth MD) Syncope and collapse (Acute) CVA (cerebral vascular accident) (Acute) Syncope (Acute) Bradycardia (Acute) Intractable nausea and vomiting (Resolved) FLORY (acute kidney injury) (Acute) Nonketotic hyperglycinemia (Resolved) Nausea (Resolved) Abdominal pain (Resolved) Hematochezia (Resolved) 1. acute stroke * clinically improving * clopidogrel and atorvastatin * MRI showed acute or subacute CVA of MAGDI territory. 2. Syncope * Unsure if this is true syncopal episode as it was not witnessed but is a possible that the patient may try to stand up and his leg was weak and he just fell and hit his head having a concussion so he has antecedent amnesia * Cardiology on board and stress test ordered 3. Cardiomyopathy * Noted incidentally on the echocardiogram where his ejection fraction is now 35 to 40%. Back in April it was a 65%. * Cardiology on consultation * further cardiac work up as outpt. 4. Abnormal UA: Patient has 25 leukocyte esterase but nothing to suggest a urinary tract infection. No further work up 6. Diabetes mellitus type 2: * Stable * A1c 9 * increase basal from 35 to 45 * increase prandial from 5to 8 7. Depression and anxiety * I recommend transitioning from Cymbalta to sertraline. On the fourth will have patient resume his Cymbalta but not at 60 mg but at 30 mg and to initiate Zoloft 25 mg at that time and then do that for 1-2 weeks and then transition him over to Zoloft 50 mg and to discontinue Cymbalta. * Patient appears to be in good spirits at this time but would still recommend outpatient counseling in addition to treatment with the SSRI. Code Visit Inpatient E&M: 80031 Subs Hosp L2
[2019-01-28 11:10] LABS: Bedside Glucose 220 mg/dL (70-110)
[2019-01-28 14:18] VITALS: BMI 28.0
[2019-01-28 17:21] LABS: Bedside Glucose 168 mg/dL (70-110)
[2019-01-28 19:49] VITALS: BP 127/63; PULSE 67; RESP 14; TEMP 36.8; O2SAT 97
[2019-01-28 20:20] LABS: Bedside Glucose 188 mg/dL (70-110)
[2019-01-28] MEDS: Atorvastatin Calcium 80 MG Tablet PO (22:19)
[2019-01-29 01:26] LABS: Bedside Glucose 198 mg/dL (70-110)
[2019-01-29] MEDS: Pregabalin 50 MG Capsule 100 MG PO ×3 (06:46→22:27)
[2019-01-29 06:55] LABS: Bedside Glucose 179 mg/dL (70-110)
[2019-01-29] MEDS: Heparin Injection (Vial) 5,000 UNIT/ML VIAL 5000 UNIT SC ×2 (08:03→22:29)
[2019-01-29] MEDS: Fenofibrate 48 MG Tablet PO (08:04)
[2019-01-29] MEDS: cloNIDine HCl 0.1 MG Tablet PO ×2 (08:04→22:29)
[2019-01-29] MEDS: Senna/Docusate Sodium 1 Tablet 2 TABLET PO ×2 (08:04→22:27)
[2019-01-29] MEDS: Clopidogrel Bisulfate 75 MG Tablet PO (08:04)
[2019-01-29] MEDS: Sertraline 50 MG Tablet PO (08:04)
[2019-01-29] MEDS: Pantoprazole Sodium 40 MG Tablet PO (08:06)
[2019-01-29] MEDS: Insulin Lispro 100 UNIT/ML INSULN.PEN 8 UNIT SC ×3 (08:08→17:04)
[2019-01-29] MEDS: Insulin Lispro 100 UNIT/ML INSULN.PEN SC ×4 (08:08→22:28)
[2019-01-29 09:17] VITALS: BP 126/72; PULSE 59; RESP 16; TEMP 36.5; O2SAT 98
[2019-01-29 11:15] VITALS: BMI 28.0
[2019-01-29 12:00] LABS: Bedside Glucose 271 mg/dL (70-110)
[2019-01-29 16:36] LABS: Bedside Glucose 205 mg/dL (70-110)
[2019-01-29 19:20] VITALS: BP 134/69; PULSE 68; RESP 18; TEMP 36.7; O2SAT 97
[2019-01-29 20:40] LABS: Bedside Glucose 258 mg/dL (70-110)
[2019-01-29] MEDS: Atorvastatin Calcium 80 MG Tablet PO (22:28)
[2019-01-29 22:51] LABS: Bedside Glucose 238 mg/dL (70-110)
[2019-01-30 05:00] VITALS: BMI 28.0
[2019-01-30] MEDS: Pregabalin 50 MG Capsule 100 MG PO ×3 (05:48→19:56)
[2019-01-30] MEDS: Insulin Lispro 100 UNIT/ML INSULN.PEN SC ×4 (06:59→21:27)
[2019-01-30] MEDS: Insulin Lispro 100 UNIT/ML INSULN.PEN 8 UNIT SC ×2 (07:00→11:21)
[2019-01-30 07:06] LABS: Bedside Glucose 238 mg/dL (70-110)
[2019-01-30] MEDS: Heparin Injection (Vial) 5,000 UNIT/ML VIAL 5000 UNIT SC ×2 (08:21→19:58)
[2019-01-30] MEDS: Fenofibrate 48 MG Tablet PO (08:21)
[2019-01-30] MEDS: Sertraline 50 MG Tablet PO (08:21)
[2019-01-30] MEDS: cloNIDine HCl 0.1 MG Tablet PO ×2 (08:21→19:56)
[2019-01-30] MEDS: Clopidogrel Bisulfate 75 MG Tablet PO (08:21)
[2019-01-30] MEDS: Senna/Docusate Sodium 1 Tablet 2 TABLET PO ×2 (08:21→19:58)
[2019-01-30] MEDS: Pantoprazole Sodium 40 MG Tablet PO (08:21)
[2019-01-30 10:00] VITALS: BP 155/82; PULSE 75; RESP 16; TEMP 36.4; O2SAT 98
[2019-01-30 11:10] LABS: Bedside Glucose 261 mg/dL (70-110)
--- NOTE | 2019-01-30 12:42 | PNCOSIGN_ITS ---
Subjective: Per nursing, no issues overnight. Patient continues to tolerate therapies well. - Physical Exam Vitals/I&O's: Vital Signs Temp Pulse Resp BP Pulse Ox 97.6 F L 75 16 155/82 H 98 01/30/19 10:00 01/30/19 10:00 01/30/19 10:00 01/30/19 10:00 01/30/19 10:00 Oxygen Delivery Method Room Air Weight: 93.695 kg Body Mass Index (BMI) 28.0 Finger Stick Blood Glucose 122 Intake and Output for Last 24 Hours 01/28/19 01/29/19 01/30/19 23:59 23:59 23:59 Intake Total 660 / 660 440 / 440 320 / 320 Balance 660 / 660 440 / 440 320 / 320 General: Alert, Oriented x3, Cooperative HEENT: Atraumatic, PERRLA, EOMI Oral: Moist Mucosa Neck: Supple, No JVD Lungs: Clear to auscultation, Normal air movement Cardiovascular: Regular rate, Regular Rhythm Abdomen: Bowel Sounds Present, Soft, Non Tender Extremities: No clubbing, No cyanosis, No edema Neurological: Cranial nerves II-XII grossly intact, Deep Tendon Reflexes 2+/4 and Symmetrical, - - RUE/RLE 5/5, LUE 4/5, LLE 3/5 sensation intact with tactile from vivas to bilateral feet Psych/Mental Status: Normal Affect, Appropriate, Alert and oriented to time, place, person, mood and affect Laboratory Results 01/29/19 16:29: POC Glucose 205 H 01/29/19 20:21: POC Glucose 258 H 01/29/19 22:26: POC Glucose 238 H 01/30/19 06:57: POC Glucose 238 H 01/30/19 11:08: POC Glucose 261 H Current Medications Acetaminophen (Tylenol) 650 mg PO Q6H PRN PRN PRN Reason: Mild Pain (0-3/10)/Headache Atorvastatin Calcium (Lipitor) 80 mg PO QHS [facility] Last Admin: 01/29/19 22:28 Dose: 80 mg Documented by: Bisacodyl (Dulcolax) 10 mg RECTAL .PRN X 1 PRN PRN Reason: Constipation Clonidine (Catapres) 0.1 mg PO BID [facility] Last Admin: 01/30/19 08:21 Dose: 0.1 mg Documented by: Clopidogrel Bisulfate (Plavix) 75 mg PO DAILY [facility] Last Admin: 01/30/19 08:21 Dose: 75 mg Documented by: Diazepam (Valium) 5 mg PO BID PRN PRN PRN Reason: ANXIETY Fenofibrate (Tricor) 48 mg PO DAILY [facility] Last Admin: 01/30/19 08:21 Dose: 48 mg Documented by: Heparin Sodium (Porcine) (Heparin Na) 5,000 unit SC BID [facility] Last Admin: 01/30/19 08:21 Dose: 5,000 unit Documented by: Insulin Glargine (Lantus (Bkc)) 45 units SC DAILY@2000 [facility] Last Admin: 01/29/19 20:22 Dose: 45 u Documented by: Insulin Human Lispro (Humalog Kwikpen (Bkc)) 0 unit SC ACHS [facility]; Protocol Last Admin: 01/30/19 11:20 Dose: 3 u Documented by: Insulin Human Lispro (Humalog Kwikpen (Bkc)) 8 unit SC TIDAC [facility] Last Admin: 01/30/19 11:21 Dose: 8 units Documented by: Magnesium Hydroxide (Milk Of Magnesia) 30 ml PO .PRN X 1 PRN PRN Reason: Constipation Pantoprazole Sodium (Protonix) 40 mg PO DAILY [facility] Last Admin: 01/30/19 08:21 Dose: 40 mg Documented by: Pregabalin (Lyrica) 100 mg PO TID [facility] Last Admin: 01/30/19 05:48 Dose: 100 mg Documented by: Senna/Docusate Sodium (Senokot-S, Thalia-Colace) 2 tablet PO BID [facility] Last Admin: 01/30/19 08:21 Dose: 1 tablet Documented by: Sertraline HCl (Zoloft) 50 mg PO DAILY [facility] Last Admin: 01/30/19 08:21 Dose: 50 mg Documented by: Assessment/Plan All Active Problems (Last Reviewed 01/12/19 @ 10:44 by Adriel Elizabeth MD) Syncope and collapse (Acute) CVA (cerebral vascular accident) (Acute) Syncope (Acute) Bradycardia (Acute) Intractable nausea and vomiting (Resolved) FLORY (acute kidney injury) (Acute) Nonketotic hyperglycinemia (Resolved) Nausea (Resolved) Abdominal pain (Resolved) Hematochezia (Resolved) The patient is a 58 year old M with PMH of HTN, DM type II, anxiety, depression admitted to [facility] on 01/13/2019 for 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 On 01/11/2019, patient presented to [facility] due to syncopal episode and left leg weakness. Patient stated he was sitting up in his recliner and when he awoke he was laying on the floor, voiced hitting head. CT of head showed no acute findings. MRI brain without contrast showed acute or subacute infarct right MAGDI, without hemorrhage. 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 MRA of neck showed normal bilateral cervical carotid and vertebral arteries. Echocardiogram showed EF of 35 to 40%, stage I diastolic dysfunction, posterior?basal severely hypokinetic, and inferior basal severely hypokinetic, unable to estimate RV systolic pressure due to insufficient tricuspid regurgitant envelope. LDL 155, HgbA1c 9.0%. Developed FLORY: BUN/Cr 27/1.76. Patient on statin, plavix, and aspirin discontinued. No antihypertensives for 5 to 7 days post stroke unless systolic is 200. . Patient has history of positive snoring, daytime tiredness, awakens 1- 2x/night for bathroom, and naps daily. Outpatient PSG study to be done, patient agreeable. Patient lives with spouse in a two-story house with first-floor set up, modified independent with ADLs, mobility with walker or cane, and driving to hospitalization. Plan - PT for mobility - OT for ADLs - ST for evaluation - Right MAGDI infarct- BP goal <130/80, on statin and antihypertensive - HTN BP goal <130/80 on catapres - DM type II HgbA1c 9.0%, on lantus, humalog S.C, accuchecks ac/hs - Depression/anxiety on zoloft and valium prn - HLD LDL 155 on statin, fenofibrate - neuropathy- chronic on lyrica - GI/DVT prophylaxis on protonix/heparin, knee high haylie hose - MIRACLE - PSG outpatient - Medical management per hospitalist- consult - FLORY on 01/26 BUN/Cr 38/1.72 - Cardiomyopathy EF 35-40% f/u with cardiology at discharge - Analgesics as needed - Bowel protocol - Fall precautions - F/U with PCP, neurology, cardiology ( Dr. Dobbs), outpatient PSG
[2019-01-30 12:48] VITALS: BMI 28.0
--- NOTE | 2019-01-30 14:53 | PN_ITS ---
Vitals/I&O's: Vital Signs Temp Pulse Resp BP Pulse Ox 97.6 F L 75 16 155/82 H 98 01/30/19 10:00 01/30/19 10:00 01/30/19 10:00 01/30/19 10:00 01/30/19 10:00 Oxygen Delivery Method Room Air Weight: 206 lb 9 oz Body Mass Index (BMI) 28.0 Finger Stick Blood Glucose 122 Intake and Output for Last 24 Hours 01/28/19 01/29/19 01/30/19 23:59 23:59 23:59 Intake Total 660 / 660 440 / 440 320 / 320 Balance 660 / 660 440 / 440 320 / 320 Laboratory Results 01/29/19 16:29: POC Glucose 205 H 01/29/19 20:21: POC Glucose 258 H 01/29/19 22:26: POC Glucose 238 H 01/30/19 06:57: POC Glucose 238 H 01/30/19 11:08: POC Glucose 261 H Current Medications Acetaminophen (Tylenol) 650 mg PO Q6H PRN PRN PRN Reason: Mild Pain (0-3/10)/Headache Atorvastatin Calcium (Lipitor) 80 mg PO QHS [facility] Last Admin: 01/29/19 22:28 Dose: 80 mg Documented by: Bisacodyl (Dulcolax) 10 mg RECTAL .PRN X 1 PRN PRN Reason: Constipation Clonidine (Catapres) 0.1 mg PO BID [facility] Last Admin: 01/30/19 08:21 Dose: 0.1 mg Documented by: Clopidogrel Bisulfate (Plavix) 75 mg PO DAILY [facility] Last Admin: 01/30/19 08:21 Dose: 75 mg Documented by: Diazepam (Valium) 5 mg PO BID PRN PRN PRN Reason: ANXIETY Fenofibrate (Tricor) 48 mg PO DAILY [facility] Last Admin: 01/30/19 08:21 Dose: 48 mg Documented by: Heparin Sodium (Porcine) (Heparin Na) 5,000 unit SC BID [facility] Last Admin: 01/30/19 08:21 Dose: 5,000 unit Documented by: Insulin Glargine (Lantus (Bk)) 45 units SC DAILY@1999 [facility] Last Admin: 01/29/19 20:22 Dose: 45 u Documented by: Insulin Human Lispro (Humalog Kwikpen (Bk)) 0 unit SC ACHS [facility]; Protocol Last Admin: 01/30/19 11:20 Dose: 3 u Documented by: Insulin Human Lispro (Humalog Kwikpen (Bkc)) 8 unit SC TIDAC [facility] Last Admin: 01/30/19 11:21 Dose: 8 units Documented by: Magnesium Hydroxide (Milk Of Magnesia) 30 ml PO .PRN X 1 PRN PRN Reason: Constipation Pantoprazole Sodium (Protonix) 40 mg PO DAILY [facility] Last Admin: 01/30/19 08:21 Dose: 40 mg Documented by: Pregabalin (Lyrica) 100 mg PO TID [facility] Last Admin: 01/30/19 13:44 Dose: 100 mg Documented by: Senna/Docusate Sodium (Senokot-S, Thalia-Colace) 2 tablet PO BID [facility] Last Admin: 01/30/19 08:21 Dose: 1 tablet Documented by: Sertraline HCl (Zoloft) 50 mg PO DAILY [facility] Last Admin: 01/30/19 08:21 Dose: 50 mg Documented by: Medical Necessity - Tobacco Use Smoking Status: Former smoker Tobacco Use: Chew, Pipe Assessment/Plan All Active Problems (Last Reviewed 01/12/19 @ 10:44 by Adriel Elizabeth MD) Syncope and collapse (Acute) CVA (cerebral vascular accident) (Acute) Syncope (Acute) Bradycardia (Acute) Intractable nausea and vomiting (Resolved) FLORY (acute kidney injury) (Acute) Nonketotic hyperglycinemia (Resolved) Nausea (Resolved) Abdominal pain (Resolved) Hematochezia (Resolved) This 58-year-old gentleman was admitted with right MAGDI infarct, left leg weakness and possible syncopal episode. As per patient he was sitting up in the recliner and when he woke up he found himself on the floor and he states he biopsied his head. There was no witness therefore unclear about the unconsciousness. 1. acute or subacute right AMGDI infarct stroke * clinically improving. Patient still has weakness of left foot * clopidogrel and atorvastatin * MRI showed acute or subacute CVA of MAGDI territory. MRA head shows moderate stenosis of bilateral cavernous segment of ICAs 2. Syncope * Patient had abnormal cardiac enzymes. Patient was seen by tribal judge. Patient had echocardiogram and reported EF 35 to 40% with new inferior posterior hypokinesis. His EF was 65% in April 2018. Stage I diastolic dysfunction. He will need a stress test. * 3. Cardiomyopathy * As per echo, combined systolic and diastolic failure; chronic in nature. Currently patient is stable and does not have acute CHF. 4. Abnormal UA: Patient does not have lower urinary tract symptoms. On 01/11 UA shows 25 leukocyte esterase, WBC 0-5 cells, negative nitrite, urine bacteria rare. Clinically no UTI. 6. Diabetes mellitus type 2: * Stable * A1c 9 * Glucose ranges about 200-261. * Increase the basal insulin to 55 units * Increased prandial insulin to 13 units TIDAC 7. Depression and anxiety * On Lyrica 100 mg 3 times daily. Zoloft 50 mg daily. Has neuropathy. Code Visit Inpatient E&M: 05067 Subs Hosp L2
[2019-01-30 16:56] LABS: Bedside Glucose 261 mg/dL (70-110)
[2019-01-30] MEDS: Insulin Lispro 100 UNIT/ML INSULN.PEN 13 UNIT SC (16:58)
[2019-01-30 19:17] VITALS: BP 145/73; PULSE 79; RESP 16; TEMP 37; O2SAT 98
[2019-01-30] MEDS: Atorvastatin Calcium 80 MG Tablet PO (19:56)
[2019-01-30 20:11] VITALS: BMI 28.0
[2019-01-30 20:16] LABS: Bedside Glucose 241 mg/dL (70-110)
[2019-01-30 21:26] LABS: Bedside Glucose 259 mg/dL (70-110)
[2019-01-30 21:38] VITALS: PULSE 79; RESP 16; O2SAT 98
[2019-01-31] MEDS: Pregabalin 50 MG Capsule 100 MG PO ×3 (06:32→20:04)
[2019-01-31 06:41] LABS: Bedside Glucose 214 mg/dL (70-110)
[2019-01-31] MEDS: Insulin Lispro 100 UNIT/ML INSULN.PEN 13 UNIT SC ×3 (06:57→17:06)
[2019-01-31] MEDS: Insulin Lispro 100 UNIT/ML INSULN.PEN SC ×4 (06:58→21:37)
[2019-01-31 07:03] VITALS: BP 144/86; PULSE 61; RESP 16; TEMP 36.4; O2SAT 97
--- NOTE | 2019-01-31 08:20 | PNCOSIGN_ITS ---
Subjective: Per nursing, no issues overnight. Patient continues to tolerate therapies well. - Physical Exam Vitals/I&O's: Vital Signs Temp Pulse Resp BP Pulse Ox 97.6 F L 61 16 144/86 H 97 01/31/19 07:03 01/31/19 07:03 01/31/19 07:03 01/31/19 07:03 01/31/19 07:03 Oxygen Delivery Method Room Air Weight: 93.695 kg Body Mass Index (BMI) 28.0 Finger Stick Blood Glucose 122 Intake and Output for Last 24 Hours 01/29/19 01/30/19 01/31/19 23:59 23:59 23:59 Intake Total 440 / 440 800 / 800 Balance 440 / 440 800 / 800 General: Alert, Oriented x3, Cooperative HEENT: Atraumatic, PERRLA Oral: Moist Mucosa Neck: Supple, No JVD Lungs: Clear to auscultation, Normal air movement Cardiovascular: Regular rate, Regular Rhythm Abdomen: Bowel Sounds Present, Soft, Non Tender Extremities: No clubbing, No cyanosis, No edema Neurological: Cranial nerves II-XII grossly intact, Deep Tendon Reflexes 2+/4 and Symmetrical, - - Motor strength RUE/RLE 5/5, LUE 4/5, LLE 3/5. sensation intact from vivas to bilateral feet with tactile Psych/Mental Status: Normal Affect, Appropriate, Alert and oriented to time, place, person, mood and affect Laboratory Results 01/30/19 11:08: POC Glucose 261 H 01/30/19 16:50: POC Glucose 261 H 01/30/19 19:55: POC Glucose 241 H 01/30/19 20:57: POC Glucose 259 H 01/31/19 06:36: POC Glucose 214 H Current Medications Acetaminophen (Tylenol) 650 mg PO Q6H PRN PRN PRN Reason: Mild Pain (0-3/10)/Headache Atorvastatin Calcium (Lipitor) 80 mg PO QHS [facility] Last Admin: 01/30/19 19:56 Dose: 80 mg Documented by: Bisacodyl (Dulcolax) 10 mg RECTAL .PRN X 1 PRN PRN Reason: Constipation Clonidine (Catapres) 0.1 mg PO BID [facility] Last Admin: 01/30/19 19:56 Dose: 0.1 mg Documented by: Clopidogrel Bisulfate (Plavix) 75 mg PO DAILY [facility] Last Admin: 01/30/19 08:21 Dose: 75 mg Documented by: Diazepam (Valium) 5 mg PO BID PRN PRN PRN Reason: ANXIETY Fenofibrate (Tricor) 48 mg PO DAILY [facility] Last Admin: 01/30/19 08:21 Dose: 48 mg Documented by: Heparin Sodium (Porcine) (Heparin Na) 5,000 unit SC BID [facility] Last Admin: 01/30/19 19:58 Dose: 5,000 unit Documented by: Insulin Glargine (Lantus (Bkc)) 55 units SC DAILY@1999 [facility] Last Admin: 01/30/19 19:57 Dose: 55 u Documented by: Insulin Human Lispro (Humalog Kwikpen (Bkc)) 0 unit SC ACHS [facility]; Protocol Last Admin: 01/31/19 06:58 Dose: 2 u Documented by: Insulin Human Lispro (Humalog Kwikpen (Bkc)) 13 unit SC TIDAC [facility] Last Admin: 01/31/19 06:57 Dose: 13 u Documented by: Magnesium Hydroxide (Milk Of Magnesia) 30 ml PO .PRN X 1 PRN PRN Reason: Constipation Pantoprazole Sodium (Protonix) 40 mg PO DAILY [facility] Last Admin: 01/30/19 08:21 Dose: 40 mg Documented by: Pregabalin (Lyrica) 100 mg PO TID [facility] Last Admin: 01/31/19 06:32 Dose: 100 mg Documented by: Senna/Docusate Sodium (Senokot-S, Thalia-Colace) 2 tablet PO BID [facility] Last Admin: 01/30/19 19:58 Dose: 1 tablet Documented by: Sertraline HCl (Zoloft) 50 mg PO DAILY [facility] Last Admin: 01/30/19 08:21 Dose: 50 mg Documented by: Assessment/Plan All Active Problems (Last Reviewed 01/12/19 @ 10:44 by Adriel Elizabeth MD) Syncope and collapse (Acute) CVA (cerebral vascular accident) (Acute) Syncope (Acute) Bradycardia (Acute) Intractable nausea and vomiting (Resolved) FLORY (acute kidney injury) (Acute) Nonketotic hyperglycinemia (Resolved) Nausea (Resolved) Abdominal pain (Resolved) Hematochezia (Resolved) The patient is a 58 year old M with PMH of HTN, DM type II, anxiety, depression admitted to [facility] on 01/13/2019 for 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 On 01/11/2019, patient presented to [facility] due to syncopal episode and left leg weakness. Patient stated he was sitting up in his recliner and when he awoke he was laying on the floor, voiced hitting head. CT of head showed no acute findings. MRI brain without contrast showed acute or subacute infarct right MAGDI, without hemorrhage. 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 MRA of neck showed normal bilateral cervical carotid and vertebral arteries. Echocardiogram showed EF of 35 to 40%, stage I diastolic dysfunction, posterior?basal severely hypokinetic, and inferior basal severely hypokinetic, unable to estimate RV systolic pressure due to insufficient tricuspid regurgitant envelope. LDL 155, HgbA1c 9.0%. Developed FLORY: BUN/Cr 27/1.76. Patient on statin, plavix, and aspirin discontinued. No antihypertensives for 5 to 7 days post stroke unless systolic is 200. . Patient has history of positive snoring, daytime tiredness, awakens 1- 2x/night for bathroom, and naps daily. Outpatient PSG study to be done, patient agreeable. Patient lives with spouse in a two-story house with first-floor set up, modified independent with ADLs, mobility with walker or cane, and driving to hospitalization. Plan - PT for mobility - OT for ADLs - ST for evaluation - Right MAGDI infarct- BP goal <130/80, on statin and antihypertensive - HTN BP goal <130/80 on catapres - DM type II HgbA1c 9.0%, on lantus, humalog S.C, accuchecks ac/hs - Depression/anxiety on zoloft and valium prn - HLD LDL 155 on statin, fenofibrate - neuropathy- chronic on lyrica - GI/DVT prophylaxis on protonix/heparin, knee high haylie hose - MIRACLE - PSG outpatient - Medical management per hospitalist- consult - FLORY on 01/26 BUN/Cr 38/1.72 - Cardiomyopathy EF 35-40% f/u with cardiology at discharge - Analgesics as needed - Bowel protocol - Fall precautions - F/U with PCP, neurology, cardiology ( Dr. Dobbs), outpatient PSG
[2019-01-31] MEDS: Fenofibrate 48 MG Tablet PO (09:35)
[2019-01-31] MEDS: Clopidogrel Bisulfate 75 MG Tablet PO (09:35)
[2019-01-31] MEDS: Pantoprazole Sodium 40 MG Tablet PO (09:35)
[2019-01-31] MEDS: Senna/Docusate Sodium 1 Tablet 2 TABLET PO ×2 (09:35→20:04)
[2019-01-31] MEDS: cloNIDine HCl 0.1 MG Tablet PO ×2 (09:35→20:03)
[2019-01-31] MEDS: Sertraline 50 MG Tablet PO (09:35)
[2019-01-31] MEDS: Heparin Injection (Vial) 5,000 UNIT/ML VIAL 5000 UNIT SC ×2 (09:36→20:03)
[2019-01-31 11:21] LABS: Bedside Glucose 211 mg/dL (70-110)
[2019-01-31 12:42] VITALS: BMI 28.0
[2019-01-31 17:06] LABS: Bedside Glucose 170 mg/dL (70-110)
[2019-01-31 19:17] VITALS: BP 142/69; PULSE 65; RESP 18; TEMP 36.4; O2SAT 98
[2019-01-31] MEDS: Atorvastatin Calcium 80 MG Tablet PO ×2 (20:04)
[2019-01-31 20:15] LABS: Bedside Glucose 183 mg/dL (70-110)
[2019-01-31 20:17] VITALS: BMI 28.0
[2019-01-31 21:45] LABS: Bedside Glucose 169 mg/dL (70-110)
[2019-01-31 22:00] VITALS: PULSE 65; RESP 18; O2SAT 98
[2019-02-01] MEDS: Pregabalin 50 MG Capsule 100 MG PO ×3 (05:21→21:44)
[2019-02-01 06:31] LABS: Bedside Glucose 169 mg/dL (70-110)
[2019-02-01 06:59] VITALS: BP 159/89; PULSE 69; RESP 17; TEMP 36.6; O2SAT 97
[2019-02-01] MEDS: Pantoprazole Sodium 40 MG Tablet PO (07:42)
[2019-02-01] MEDS: Senna/Docusate Sodium 1 Tablet 2 TABLET PO ×2 (07:42→21:44)
[2019-02-01] MEDS: Fenofibrate 48 MG Tablet PO (07:42)
[2019-02-01] MEDS: Clopidogrel Bisulfate 75 MG Tablet PO (07:42)
[2019-02-01] MEDS: Heparin Injection (Vial) 5,000 UNIT/ML VIAL 5000 UNIT SC ×2 (07:43→21:44)
[2019-02-01] MEDS: cloNIDine HCl 0.1 MG Tablet PO ×2 (07:43→21:44)
[2019-02-01] MEDS: Insulin Lispro 100 UNIT/ML INSULN.PEN 13 UNIT SC ×3 (07:43→17:11)
[2019-02-01] MEDS: Insulin Lispro 100 UNIT/ML INSULN.PEN SC ×3 (07:43→21:44)
[2019-02-01] MEDS: Sertraline 50 MG Tablet PO (07:44)
--- NOTE | 2019-02-01 11:10 | CASEMGMT ---
INSURANCE: clinical update faxed via secure website. Will await continued stay determination. Auth#[id number] AVANI Edmondson
[2019-02-01 11:11] LABS: Bedside Glucose 188 mg/dL (70-110)
--- NOTE | 2019-02-01 11:42 | CASEMGMT ---
INSURANCE Clinical update sent visa secure website. Will await continued stay determination. Auth# [id number] AVANI Edmondson
--- NOTE | 2019-02-01 12:39 | PCM.PN.NEU ---
Subjective: Per nursing, no issues overnight. Patient continues to tolerate therapies well. - Physical Exam Vitals/I&O's: Vital Signs Temp Pulse Resp BP Pulse Ox 97.9 F 69 17 159/89 H 97 02/01/19 06:59 02/01/19 06:59 02/01/19 06:59 02/01/19 06:59 02/01/19 06:59 Oxygen Delivery Method Room Air Weight: 93.44 kg Body Mass Index (BMI) 28.0 Finger Stick Blood Glucose 122 Intake and Output for Last 24 Hours 01/30/19 01/31/19 02/01/19 23:59 23:59 23:59 Intake Total 800 / 800 460 / 460 470 / 470 Output Total 300 / 300 Balance 800 / 800 460 / 460 170 / 170 General: Alert, Oriented x3, Cooperative HEENT: Atraumatic, PERRLA, EOMI Oral: Moist Mucosa Neck: Supple, No JVD Lungs: Clear to auscultation, Normal air movement Cardiovascular: Regular rate, Regular Rhythm Abdomen: Bowel Sounds Present, Soft, Non Tender Extremities: No clubbing, No cyanosis, No edema Neurological: Cranial nerves II-XII grossly intact, Deep Tendon Reflexes 2+/4 and Symmetrical, - - Motor strength RUE/RLE 5/5, LUE 4/5, LLE 3/5. sensation intact from vivas to bilateral feet with tactile Psych/Mental Status: Normal Affect, Appropriate, Alert and oriented to time, place, person, mood and affect Laboratory Results 01/31/19 16:54: POC Glucose 170 H 01/31/19 19:53: POC Glucose 183 H 01/31/19 21:28: POC Glucose 169 H 02/01/19 06:21: POC Glucose 169 H 02/01/19 11:05: POC Glucose 188 H Current Medications Acetaminophen (Tylenol) 650 mg PO Q6H PRN PRN PRN Reason: Mild Pain (0-3/10)/Headache Atorvastatin Calcium (Lipitor) 80 mg PO QHS [facility] Last Admin: 01/31/19 20:04 Dose: 80 mg Documented by: Bisacodyl (Dulcolax) 10 mg RECTAL .PRN X 1 PRN PRN Reason: Constipation Clonidine (Catapres) 0.1 mg PO BID [facility] Last Admin: 02/01/19 07:43 Dose: 0.1 mg Documented by: Clopidogrel Bisulfate (Plavix) 75 mg PO DAILY [facility] Last Admin: 02/01/19 07:42 Dose: 75 mg Documented by: Diazepam (Valium) 5 mg PO BID PRN PRN PRN Reason: ANXIETY Fenofibrate (Tricor) 48 mg PO DAILY [facility] Last Admin: 02/01/19 07:42 Dose: 48 mg Documented by: Heparin Sodium (Porcine) (Heparin Na) 5,000 unit SC BID [facility] Last Admin: 02/01/19 07:43 Dose: 5,000 unit Documented by: Insulin Glargine (Lantus ([facility])) 55 units SC DAILY@1999 [facility] Last Admin: 01/31/19 19:51 Dose: 55 u Documented by: Insulin Human Lispro (Humalog Kwikpen ([facility])) 0 unit SC ACHS [facility]; Protocol Last Admin: 02/01/19 12:05 Dose: 1 u Documented by: Insulin Human Lispro (Humalog Kwikpen ([facility])) 13 unit SC TIDAC [facility] Last Admin: 02/01/19 12:05 Dose: 13 u Documented by: Magnesium Hydroxide (Milk Of Magnesia) 30 ml PO .PRN X 1 PRN PRN Reason: Constipation Pantoprazole Sodium (Protonix) 40 mg PO DAILY [facility] Last Admin: 02/01/19 07:42 Dose: 40 mg Documented by: Pregabalin (Lyrica) 100 mg PO TID [facility] Last Admin: 02/01/19 05:21 Dose: 100 mg Documented by: Senna/Docusate Sodium (Senokot-S, Thalia-Colace) 2 tablet PO BID [facility] Last Admin: 02/01/19 07:42 Dose: 2 tablet Documented by: Sertraline HCl (Zoloft) 50 mg PO DAILY [facility] Last Admin: 02/01/19 07:44 Dose: 50 mg Documented by: Medical Necessity - Tobacco Use Smoking Status: Former smoker Tobacco Use: Chew, Pipe Assessment/Plan All Active Problems (Last Reviewed 01/12/19 @ 10:44 by Adriel Elizabeth MD) Syncope and collapse (Acute) CVA (cerebral vascular accident) (Acute) Syncope (Acute) Bradycardia (Acute) Intractable nausea and vomiting (Resolved) FLORY (acute kidney injury) (Acute) Nonketotic hyperglycinemia (Resolved) Nausea (Resolved) Abdominal pain (Resolved) Hematochezia (Resolved) The patient is a 58 year old M with PMH of HTN, DM type II, anxiety, depression admitted to [facility] on 01/13/2019 for 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 On 01/11/2019, patient presented to [facility] due to syncopal episode and left leg weakness. Patient stated he was sitting up in his recliner and when he awoke he was laying on the floor, voiced hitting head. CT of head showed no acute findings. MRI brain without contrast showed acute or subacute infarct right MAGDI, without hemorrhage. 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 MRA of neck showed normal bilateral cervical carotid and vertebral arteries. Echocardiogram showed EF of 35 to 40%, stage I diastolic dysfunction, posterior?basal severely hypokinetic, and inferior basal severely hypokinetic, unable to estimate RV systolic pressure due to insufficient tricuspid regurgitant envelope. LDL 155, HgbA1c 9.0%. Developed FLORY: BUN/Cr 27/1.76. Patient on statin, plavix, and aspirin discontinued. No antihypertensives for 5 to 7 days post stroke unless systolic is 200. . Patient has history of positive snoring, daytime tiredness, awakens 1-2x/night for bathroom, and naps daily. Outpatient PSG study to be done, patient agreeable. Patient lives with spouse in a two-story house with first-floor set up, modified independent with ADLs, mobility with walker or cane, and driving to hospitalization. Plan - PT for mobility - OT for ADLs - ST for evaluation - Right MAGDI infarct- BP goal <130/80, on statin and antihypertensive - HTN BP goal <130/80 on catapres - DM type II HgbA1c 9.0%, on lantus, humalog S.C, accuchecks ac/hs - Depression/anxiety on zoloft and valium prn - HLD LDL 155 on statin, fenofibrate - neuropathy- chronic on lyrica - GI/DVT prophylaxis on protonix/heparin, knee high haylie hose - [place] - PSG outpatient - Medical management per hospitalist- consult - FLORY on 01/26 BUN/Cr 38/1.72 - Cardiomyopathy EF 35-40% f/u with cardiology at discharge - Analgesics as needed - Bowel protocol - Fall precautions - F/U with PCP, neurology, cardiology ( Dr. Dobbs), outpatient PSG
[2019-02-01 14:19] VITALS: BMI 28.0
[2019-02-01 17:01] LABS: Bedside Glucose 121 mg/dL (70-110)
[2019-02-01 20:21] LABS: Bedside Glucose 143 mg/dL (70-110)
[2019-02-01 21:26] VITALS: BP 136/77; PULSE 69; RESP 16; TEMP 36.6; O2SAT 98
[2019-02-01 21:40] LABS: Bedside Glucose 168 mg/dL (70-110)
[2019-02-02 01:18] VITALS: BMI 28.0
[2019-02-02] MEDS: Pregabalin 50 MG Capsule 100 MG PO ×3 (05:40→23:42)
[2019-02-02 06:16] LABS: Bedside Glucose 175 mg/dL (70-110)
[2019-02-02 07:10] VITALS: BP 158/79; PULSE 60; RESP 16; TEMP 36.3; O2SAT 98
[2019-02-02] MEDS: Fenofibrate 48 MG Tablet PO (07:25)
[2019-02-02] MEDS: Senna/Docusate Sodium 1 Tablet 2 TABLET PO ×2 (07:25→21:17)
[2019-02-02] MEDS: Sertraline 50 MG Tablet PO (07:25)
[2019-02-02] MEDS: cloNIDine HCl 0.1 MG Tablet PO ×2 (07:26→21:27)
[2019-02-02] MEDS: Pantoprazole Sodium 40 MG Tablet PO (07:26)
[2019-02-02] MEDS: Clopidogrel Bisulfate 75 MG Tablet PO (07:26)
[2019-02-02] MEDS: Heparin Injection (Vial) 5,000 UNIT/ML VIAL 5000 UNIT SC ×2 (07:26→21:28)
[2019-02-02] MEDS: Insulin Lispro 100 UNIT/ML INSULN.PEN SC ×3 (07:27→21:30)
[2019-02-02] MEDS: Insulin Lispro 100 UNIT/ML INSULN.PEN 13 UNIT SC ×3 (07:28→17:16)
[2019-02-02 08:13] VITALS: BP 124/77
--- NOTE | 2019-02-02 09:04 | CASEMGMT ---
INSURANCE Continued stay approved with next update due 02/07. Auth #[id number] AVANI Edmondson
--- NOTE | 2019-02-02 09:15 | PN.NEURO_ITS ---
Subjective: Team meeting today. Further details per OT/PT/ST notes. All questions answered. - Physical Exam Vitals/I&O's: Vital Signs Temp Pulse Resp BP Pulse Ox 97.4 F L 60 16 124/77 H 98 02/02/19 07:10 02/02/19 07:10 02/02/19 07:10 02/02/19 08:13 02/02/19 07:10 Oxygen Delivery Method Room Air Weight: 93.44 kg Body Mass Index (BMI) 28.0 Finger Stick Blood Glucose 122 Intake and Output for Last 24 Hours 01/31/19 02/01/19 02/02/19 23:59 23:59 23:59 Intake Total 460 / 460 910 / 910 240 / 240 Output Total 300 / 300 Balance 460 / 460 610 / 610 240 / 240 General: Alert, Oriented x3, Cooperative HEENT: Atraumatic, PERRLA, EOMI Oral: Moist Mucosa Neck: Supple, No JVD Lungs: Clear to auscultation, Normal air movement Cardiovascular: Regular rate, Regular Rhythm Abdomen: Bowel Sounds Present, Soft, Non Tender Extremities: No clubbing, No cyanosis, No edema Neurological: Cranial nerves II-XII grossly intact, Deep Tendon Reflexes 2+/4 and Symmetrical, - - Motor strength RUE/RLE 5/5, LUE 4/5, LLE 3/5. Sensation intact from vivas to bilateral feet with tactile Psych/Mental Status: Normal Affect, Appropriate, Alert and oriented to time, place, person, mood and affect Laboratory Results 02/01/19 11:05: POC Glucose 188 H 02/01/19 16:56: POC Glucose 121 H 02/01/19 19:59: POC Glucose 143 H 02/01/19 21:30: POC Glucose 168 H 02/02/19 06:11: POC Glucose 175 H Current Medications Acetaminophen (Tylenol) 650 mg PO Q6H PRN PRN PRN Reason: Mild Pain (0-3/10)/Headache Atorvastatin Calcium (Lipitor) 80 mg PO QHS [facility] Last Admin: 01/31/19 20:04 Dose: 80 mg Documented by: Bisacodyl (Dulcolax) 10 mg RECTAL .PRN X 1 PRN PRN Reason: Constipation Clonidine (Catapres) 0.1 mg PO BID [facility] Last Admin: 02/02/19 07:26 Dose: 0.1 mg Documented by: Clopidogrel Bisulfate (Plavix) 75 mg PO DAILY [facility] Last Admin: 02/02/19 07:26 Dose: 75 mg Documented by: Diazepam (Valium) 5 mg PO BID PRN PRN PRN Reason: ANXIETY Fenofibrate (Tricor) 48 mg PO DAILY [facility] Last Admin: 02/02/19 07:25 Dose: 48 mg Documented by: Heparin Sodium (Porcine) (Heparin Na) 5,000 unit SC BID [facility] Last Admin: 02/02/19 07:26 Dose: 5,000 unit Documented by: Insulin Glargine (Lantus (Bk)) 55 units SC DAILY@1999 [facility] Last Admin: 02/01/19 20:35 Dose: 55 u Documented by: Insulin Human Lispro (Humalog Kwikpen (Bk)) 0 unit SC ACHS [facility]; Protocol Last Admin: 02/02/19 07:27 Dose: 1 u Documented by: Insulin Human Lispro (Humalog Kwikpen (Bk)) 13 unit SC TIDAC [facility] Last Admin: 02/02/19 07:28 Dose: 13 u Documented by: Magnesium Hydroxide (Milk Of Magnesia) 30 ml PO .PRN X 1 PRN PRN Reason: Constipation Pantoprazole Sodium (Protonix) 40 mg PO DAILY [facility] Last Admin: 02/02/19 07:26 Dose: 40 mg Documented by: Pregabalin (Lyrica) 100 mg PO TID [facility] Last Admin: 02/02/19 05:40 Dose: 100 mg Documented by: Senna/Docusate Sodium (Senokot-S, Thalia-Colace) 2 tablet PO BID [facility] Last Admin: 02/02/19 07:25 Dose: 2 tablet Documented by: Sertraline HCl (Zoloft) 50 mg PO DAILY [facility] Last Admin: 02/02/19 07:25 Dose: 50 mg Documented by: STROKE Vital Signs/Narrative: Vital Signs Temp Pulse Resp BP Pulse Ox 02/02/19 08:13 124/77 H 02/02/19 07:10 97.4 F L 60 16 158/79 H 98 Medical Necessity - Tobacco Use Smoking Status: Former smoker Tobacco Use: Chew, Pipe Assessment/Plan All Active Problems (Last Reviewed 01/12/19 @ 10:44 by Adriel Elizabeth MD) Syncope and collapse (Acute) CVA (cerebral vascular accident) (Acute) Syncope (Acute) Bradycardia (Acute) Intractable nausea and vomiting (Resolved) FLORY (acute kidney injury) (Acute) Nonketotic hyperglycinemia (Resolved) Nausea (Resolved) Abdominal pain (Resolved) Hematochezia (Resolved) The patient is a 58 year old M with PMH of HTN, DM type II, anxiety, depression admitted to [facility] on 01/13/2019 for 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 On 01/11/2019, patient presented to [facility] due to syncopal episode and left leg weakness. Patient stated he was sitting up in his recliner and when he awoke he was laying on the floor, voiced hitting head. CT of head showed no acute findings. MRI brain without contrast showed acute or subacute infarct right MAGDI, without hemorrhage. 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 MRA of neck showed normal bilateral cervical carotid and vertebral arteries. Echocardiogram showed EF of 35 to 40%, stage I diastolic dysfunction, posterior?basal severely hypokinetic, and inferior basal severely hypokinetic, unable to estimate RV systolic pressure due to insufficient tricuspid regurgitant envelope. LDL 155, HgbA1c 9.0%. Developed FLORY: BUN/Cr 27/1.76. Patient on statin, plavix, and aspirin discon tinued. No antihypertensives for 5 to 7 days post stroke unless systolic is 200. . Patient has history of positive snoring, daytime tiredness, awakens 1- 2x/night for bathroom, and naps daily. Outpatient PSG study to be done, patient agreeable. Patient lives with spouse in a two-story house with first-floor set up, modified independent with ADLs, mobility with walker or cane, and driving to hospitalization. Plan - PT for mobility - OT for ADLs - ST for evaluation - Right MAGDI infarct- BP goal <130/80, on statin and antihypertensive - HTN BP goal <130/80 on catapres - DM type II HgbA1c 9.0%, on lantus, humalog S.C, accuchecks ac/hs - Depression/anxiety on zoloft and valium prn - HLD LDL 155 on statin, fenofibrate - neuropathy- chronic on lyrica - GI/DVT prophylaxis on protonix/heparin, knee high [place]lie [place] - [place] - PSG outpatient - Medical management per hospitalist- consult - FLORY on 01/26 BUN/Cr 38/1.72 - Cardiomyopathy EF 35-40% f/u with cardiology at discharge - Analgesics as needed - Bowel protocol - Fall precautions - F/U with PCP, neurology, cardiology ( Dr. Dobbs), outpatient PSG
--- NOTE | 2019-02-02 10:21 | CASEMGMT ---
Social Work IDT met with patient and for Team Meeting. Discussed patient's progress in therapy. Pt is improving greatly. Pt is SBA bed mobility, min to mod sitting to standing and improving with left sided lean. Pt walking 75 ft with FWW CGA to min assist with w/c follow. Pts balance is improving and taking full steps instead of feet dragging with KAFO. Referral made to [employer] for KAFO. Pt is min assist for bathing and LE dressing - improving on left arm coordination. Pt has improved with memory and slurred speech - reports speech is better than baseline. Insurance approved with [employer] 02/07. Will continue to follow - pt still agreeable to DC to [facility]. Yissel Champion, [employer]
[2019-02-02 11:30] LABS: Bedside Glucose 184 mg/dL (70-110)
[2019-02-02 15:39] VITALS: BMI 28.0
--- NOTE | 2019-02-02 16:03 | PCM.PN.HOSP ---
Subjective: Seen and examined. Patient has improvement in left foot drop. Also feels improvement in left upper extremity. Right-sided facial droop. Vitals/I&O's: Vital Signs Temp Pulse Resp BP Pulse Ox 97.4 F L 60 16 124/77 H 98 02/02/19 07:10 02/02/19 07:10 02/02/19 07:10 02/02/19 08:13 02/02/19 07:10 Oxygen Delivery Method Room Air Weight: 206 lb Body Mass Index (BMI) 28.0 Finger Stick Blood Glucose 122 Intake and Output for Last 24 Hours 01/31/19 02/01/19 02/02/19 23:59 23:59 23:59 Intake Total 460 / 460 910 / 910 480 / 480 Output Total 300 / 300 Balance 460 / 460 610 / 610 480 / 480 General: Alert, Oriented x3, Cooperative HEENT: Atraumatic, PERRLA, EOMI, Normocephalic Neck: Supple, No JVD, Negative Carotid Bruits Lungs: Clear to auscultation, Normal air movement Cardiovascular: Regular rate, No murmurs Abdomen: Bowel Sounds Present, Soft, Non Tender, Non-Distended Extremities: No edema, Capillary Refill Less than 3 Seconds Skin: No rashes, No breakdown Musculoskeletal: No Tenderness to Palpation of Joints or Extremities, Arthritic Changes Neurological: Cranial nerves II-XII grossly intact, Deep Tendon Reflexes 2+/4 and Symmetrical, Neuro grossly intact, - - Left foot drop. Left upper extremity weakness 4+/5. Right-sided facial droop Psych/Mental Status: Normal Affect, Appropriate Laboratory Results 02/01/19 16:56: POC Glucose 121 H 02/01/19 19:59: POC Glucose 143 H 02/01/19 21:30: POC Glucose 168 H 02/02/19 06:11: POC Glucose 175 H 02/02/19 11:25: POC Glucose 184 H Current Medications Acetaminophen (Tylenol) 650 mg PO Q6H PRN PRN PRN Reason: Mild Pain (0-3/10)/Headache Atorvastatin Calcium (Lipitor) 80 mg PO QHS [facility] Last Admin: 01/31/19 20:04 Dose: 80 mg Documented by: Bisacodyl (Dulcolax) 10 mg RECTAL .PRN X 1 PRN PRN Reason: Constipation Clonidine (Catapres) 0.1 mg PO BID [facility] Last Admin: 02/02/19 07:26 Dose: 0.1 mg Documented by: Clopidogrel Bisulfate (Plavix) 75 mg PO DAILY [facility] Last Admin: 02/02/19 07:26 Dose: 75 mg Documented by: Diazepam (Valium) 5 mg PO BID PRN PRN PRN Reason: ANXIETY Fenofibrate (Tricor) 48 mg PO DAILY [facility] Last Admin: 02/02/19 07:25 Dose: 48 mg Documented by: Heparin Sodium (Porcine) (Heparin Na) 5,000 unit SC BID [facility] Last Admin: 02/02/19 07:26 Dose: 5,000 unit Documented by: Insulin Glargine (Lantus (Bk)) 55 units SC DAILY@1999 [facility] Last Admin: 02/01/19 20:35 Dose: 55 u Documented by: Insulin Human Lispro (Humalog Kwikpen (Bk)) 0 unit SC ACHS [facility]; Protocol Last Admin: 02/02/19 12:03 Dose: 1 u Documented by: Insulin Human Lispro (Humalog Kwikpen ([facility])) 13 unit SC TIDAC [facility] Last Admin: 02/02/19 12:03 Dose: 13 u Documented by: Magnesium Hydroxide (Milk Of Magnesia) 30 ml PO .PRN X 1 PRN PRN Reason: Constipation Pantoprazole Sodium (Protonix) 40 mg PO DAILY [facility] Last Admin: 02/02/19 07:26 Dose: 40 mg Documented by: Pregabalin (Lyrica) 100 mg PO TID [facility] Last Admin: 02/02/19 14:10 Dose: 100 mg Documented by: Senna/Docusate Sodium (Senokot-S, Thalia-Colace) 2 tablet PO BID [facility] Last Admin: 02/02/19 07:25 Dose: 2 tablet Documented by: Sertraline HCl (Zoloft) 50 mg PO DAILY [facility] Last Admin: 02/02/19 07:25 Dose: 50 mg Documented by: Medical Necessity - Tobacco Use Smoking Status: Former smoker Tobacco Use: Chew, Pipe Assessment/Plan All Active Problems (Last Reviewed 01/12/19 @ 10:44 by Adriel Elizabeth MD) Syncope and collapse (Acute) CVA (cerebral vascular accident) (Acute) Syncope (Acute) Bradycardia (Acute) Intractable nausea and vomiting (Resolved) FLORY (acute kidney injury) (Acute) Nonketotic hyperglycinemia (Resolved) Nausea (Resolved) Abdominal pain (Resolved) Hematochezia (Resolved) This 58-year-old gentleman was admitted with right MAGDI infarct, left leg weakness and possible syncopal episode. As per patient he was sitting up in the recliner and when he woke up he found himself on the floor and he states he biopsied his head. There was no witness therefore unclear about the unconsciousness. 1. acute or subacute right MAGDI infarct stroke clinically improving. Patient still has weakness of left foot clopidogrel and atorvastatin MRI showed acute or subacute CVA of MAGDI territory. MRA head shows moderate stenosis of bilateral cavernous segment of ICAs 2. Syncope Patient had abnormal cardiac enzymes. Patient was seen by ultrasound applications specialist. Patient had echocardiogram and reported EF 35 to 40% with new inferior posterior hypokinesis. His EF was 65% in April 2018. Stage I diastolic dysfunction. He will need a stress test. 3. Cardiomyopathy As per echo, combined systolic and diastolic failure; chronic in nature. Currently patient is stable and does not have acute CHF. 4. Abnormal UA: Patient does not have lower urinary tract symptoms. On 01/11 UA shows 25 leukocyte esterase, WBC 0-5 cells, negative nitrite, urine bacteria rare. Clinically no UTI. 6. Diabetes mellitus type 2: Stable A1c 9 Glucose ranges letter. Insulin adjusted. Increase the basal insulin to 55 units Increased prandial insulin to 13 units TIDAC 7. Depression and anxiety On Lyrica 100 mg 3 times daily. Zoloft 50 mg daily. Has neuropathy. Laboratory Results 02/01/19 16:56: POC Glucose 121 H 02/01/19 19:59: POC Glucose 143 H 02/01/19 21:30: POC Glucose 168 H 02/02/19 06:11: POC Glucose 175 H 02/02/19 11:25: POC Glucose 184 H 02/02/19 16:24: POC Glucose 110 Clinical Impression(s) from Imaging Studies Hand X-Ray 01/19/19 10:43 IMPRESSION: Normal x-ray examination of the hand. Code Visit Inpatient E&M: 91911 Subs Hosp L2
[2019-02-02 16:30] LABS: Bedside Glucose 110 mg/dL (70-110)
[2019-02-02 19:39] VITALS: BP 147/70; PULSE 67; RESP 16; TEMP 36.7; O2SAT 99
[2019-02-02 20:36] LABS: Bedside Glucose 165 mg/dL (70-110)
[2019-02-02] MEDS: Atorvastatin Calcium 80 MG Tablet PO (21:27)
[2019-02-02 23:25] VITALS: BMI 28.0
[2019-02-03 06:50] LABS: Bedside Glucose 125 mg/dL (70-110)
[2019-02-03] MEDS: Pregabalin 50 MG Capsule 100 MG PO ×3 (07:02→20:28)
[2019-02-03] MEDS: Insulin Lispro 100 UNIT/ML INSULN.PEN 13 UNIT SC ×2 (07:57→11:45)
[2019-02-03] MEDS: Heparin Injection (Vial) 5,000 UNIT/ML VIAL 5000 UNIT SC ×2 (07:58→20:29)
[2019-02-03] MEDS: Sertraline 50 MG Tablet PO (08:00)
[2019-02-03] MEDS: Clopidogrel Bisulfate 75 MG Tablet PO (08:00)
[2019-02-03] MEDS: Pantoprazole Sodium 40 MG Tablet PO (08:00)
[2019-02-03] MEDS: cloNIDine HCl 0.1 MG Tablet PO ×2 (08:00→20:29)
[2019-02-03] MEDS: Senna/Docusate Sodium 1 Tablet 2 TABLET PO ×2 (08:00→20:28)
[2019-02-03] MEDS: Fenofibrate 48 MG Tablet PO (08:01)
--- NOTE | 2019-02-03 11:13 | PCM.PN.NEU ---
Subjective: Per nursing, no issues overnight. Patient continues to tolerate therapies well. - Physical Exam Vitals/I&O's: Vital Signs Temp Pulse Resp BP Pulse Ox 98.1 F 67 16 147/70 H 99 02/02/19 19:39 02/02/19 19:39 02/02/19 19:39 02/02/19 19:39 02/02/19 19:39 Oxygen Delivery Method Room Air Weight: 93.44 kg Body Mass Index (BMI) 28.0 Finger Stick Blood Glucose 122 Intake and Output for Last 24 Hours 02/01/19 02/02/19 02/03/19 23:59 23:59 23:59 Intake Total 910 / 910 480 / 480 480 / 480 Output Total 300 / 300 Balance 610 / 610 480 / 480 480 / 480 General: Alert, Oriented x3, Cooperative HEENT: Atraumatic, PERRLA, EOMI Oral: Moist Mucosa Neck: Supple, No JVD Lungs: Clear to auscultation, Normal air movement Cardiovascular: Regular rate, Regular Rhythm Abdomen: Bowel Sounds Present, Soft, Non Tender Extremities: No clubbing, No cyanosis, No edema Neurological: Cranial nerves II-XII grossly intact, Deep Tendon Reflexes 2+/4 and Symmetrical, - - Motor strength RUE/RLE 5/5, LUE 4/5, LLE 3/5. Sensation intact from vivas to bilateral feet with tactile Psych/Mental Status: Normal Affect, Appropriate, Alert and oriented to time, place, person, mood and affect Laboratory Results 02/02/19 11:25: POC Glucose 184 H 02/02/19 16:24: POC Glucose 110 02/02/19 20:27: POC Glucose 165 H 02/03/19 06:36: POC Glucose 125 H Current Medications Acetaminophen (Tylenol) 650 mg PO Q6H PRN PRN PRN Reason: Mild Pain (0-3/10)/Headache Atorvastatin Calcium (Lipitor) 80 mg PO QHS [facility] Last Admin: 02/02/19 21:27 Dose: 80 mg Documented by: Bisacodyl (Dulcolax) 10 mg RECTAL .PRN X 1 PRN PRN Reason: Constipation Clonidine (Catapres) 0.1 mg PO BID [facility] Last Admin: 02/03/19 08:00 Dose: 0.1 mg Documented by: Clopidogrel Bisulfate (Plavix) 75 mg PO DAILY [facility] Last Admin: 02/03/19 08:00 Dose: 75 mg Documented by: Diazepam (Valium) 5 mg PO BID PRN PRN PRN Reason: ANXIETY Fenofibrate (Tricor) 48 mg PO DAILY [facility] Last Admin: 02/03/19 08:01 Dose: 48 mg Documented by: Heparin Sodium (Porcine) (Heparin Na) 5,000 unit SC BID [facility] Last Admin: 02/03/19 07:58 Dose: 5,000 unit Documented by: Insulin Glargine (Lantus (Bkc)) 60 units SC DAILY@1999 [facility] Last Admin: 02/02/19 21:28 Dose: 60 u Documented by: Insulin Human Lispro (Humalog Kwikpen (Bkc)) 0 unit SC ACHS [facility]; Protocol Last Admin: 02/03/19 07:57 Dose: Not Given Documented by: Insulin Human Lispro (Humalog Kwikpen (Bkc)) 13 unit SC TIDAC [facility] Last Admin: 02/03/19 07:57 Dose: 13 u Documented by: Magnesium Hydroxide (Milk Of Magnesia) 30 ml PO .PRN X 1 PRN PRN Reason: Constipation Pantoprazole Sodium (Protonix) 40 mg PO DAILY [facility] Last Admin: 02/03/19 08:00 Dose: 40 mg Documented by: Pregabalin (Lyrica) 100 mg PO TID [facility] Last Admin: 02/03/19 07:02 Dose: 100 mg Documented by: Senna/Docusate Sodium (Senokot-S, Thalia-Colace) 2 tablet PO BID [facility] Last Admin: 02/03/19 08:00 Dose: 2 tablet Documented by: Sertraline HCl (Zoloft) 50 mg PO DAILY [facility] Last Admin: 02/03/19 08:00 Dose: 50 mg Documented by: Medical Necessity - Tobacco Use Smoking Status: Former smoker Tobacco Use: Chew, Pipe Assessment/Plan All Active Problems (Last Reviewed 01/12/19 @ 10:44 by Adriel Elizabeth MD) Syncope and collapse (Acute) CVA (cerebral vascular accident) (Acute) Syncope (Acute) Bradycardia (Acute) Intractable nausea and vomiting (Resolved) FLORY (acute kidney injury) (Acute) Nonketotic hyperglycinemia (Resolved) Nausea (Resolved) Abdominal pain (Resolved) Hematochezia (Resolved) The patient is a 58 year old M with PMH of HTN, DM type II, anxiety, depression admitted to [facility] on 01/13/2019 for 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 On 01/11/2019, patient presented to [facility] due to syncopal episode and left leg weakness. Patient stated he was sitting up in his recliner and when he awoke he was laying on the floor, voiced hitting head. CT of head showed no acute findings. MRI brain without contrast showed acute or subacute infarct right MAGDI, without hemorrhage. 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 MRA of neck showed normal bilateral cervical carotid and vertebral arteries. Echocardiogram showed EF of 35 to 40%, stage I diastolic dysfunction, posterior?basal severely hypokinetic, and inferior basal severely hypokinetic, unable to estimate RV systolic pressure due to insufficient tricuspid regurgitant envelope. LDL 155, HgbA1c 9.0%. Developed FLORY: BUN/Cr 27/1.76. Patient on statin, plavix, and aspirin discontinued. No antihypertensives for 5 to 7 days post stroke unless systolic is 200. . Patient has history of positive snoring, daytime tiredness, awakens 1-2x/night for bathroom, and naps daily. Outpatient PSG study to be done, patient agreeable. Patient lives with spouse in a two-story house with first-floor set up, modified independent with ADLs, mobility with walker or cane, and driving to hospitalization. Plan - PT for mobility - OT for ADLs - ST for evaluation - Right MAGDI infarct- BP goal <130/80, on statin and antihypertensive - HTN BP goal <130/80 on catapres - DM type II HgbA1c 9.0%, on lantus, humalog S.C, accuchecks ac/hs - Depression/anxiety on zoloft and valium prn - HLD LDL 155 on statin, fenofibrate - neuropathy- chronic on lyrica - GI/DVT prophylaxis on protonix/heparin, knee high haylie hose - MIRACLE - PSG outpatient - Medical management per hospitalist- consult - FLORY on 01/26 BUN/Cr 38/1.72 - Cardiomyopathy EF 35-40% f/u with cardiology at discharge - Analgesics as needed - Bowel protocol - Fall precautions - F/U with PCP, neurology, cardiology ( Dr. Dobbs), outpatient PSG
[2019-02-03 11:21] LABS: Bedside Glucose 175 mg/dL (70-110)
[2019-02-03] MEDS: Insulin Lispro 100 UNIT/ML INSULN.PEN SC ×2 (11:45→20:29)
[2019-02-03 13:24] VITALS: BMI 28.0
[2019-02-03 16:16] LABS: Bedside Glucose 60 mg/dL (70-110)
[2019-02-03 16:31] LABS: Bedside Glucose 90 mg/dL (70-110)
[2019-02-03 18:57] VITALS: BP 148/73; PULSE 64; RESP 20; TEMP 36.8; O2SAT 96
[2019-02-03] MEDS: Atorvastatin Calcium 80 MG Tablet PO (20:31)
[2019-02-03 20:41] LABS: Bedside Glucose 202 mg/dL (70-110)
[2019-02-03 22:51] VITALS: BMI 28.0
[2019-02-04] MEDS: Pregabalin 50 MG Capsule 100 MG PO ×3 (06:05→19:41)
[2019-02-04 06:40] LABS: Bedside Glucose 82 mg/dL (70-110)
[2019-02-04 07:15] VITALS: BP 145/82; PULSE 63; RESP 16; TEMP 36.5; O2SAT 98
[2019-02-04] MEDS: Clopidogrel Bisulfate 75 MG Tablet PO (08:11)
[2019-02-04] MEDS: Sertraline 50 MG Tablet PO (08:11)
[2019-02-04] MEDS: Heparin Injection (Vial) 5,000 UNIT/ML VIAL 5000 UNIT SC ×2 (08:11→19:40)
[2019-02-04] MEDS: cloNIDine HCl 0.1 MG Tablet PO ×2 (08:11→19:40)
[2019-02-04] MEDS: Senna/Docusate Sodium 1 Tablet 2 TABLET PO ×2 (08:11→19:41)
[2019-02-04] MEDS: Fenofibrate 48 MG Tablet PO (08:11)
[2019-02-04] MEDS: Pantoprazole Sodium 40 MG Tablet PO (08:11)
[2019-02-04 10:20] VITALS: BMI 28.0
[2019-02-04 11:35] LABS: Bedside Glucose 192 mg/dL (70-110)
[2019-02-04] MEDS: Insulin Lispro 100 UNIT/ML INSULN.PEN SC ×3 (12:04→21:22)
[2019-02-04] MEDS: Insulin Lispro 100 UNIT/ML INSULN.PEN 8 UNIT SC ×2 (12:05→18:08)
[2019-02-04 16:56] LABS: Bedside Glucose 150 mg/dL (70-110)
[2019-02-04 19:14] VITALS: BP 136/68; PULSE 65; RESP 17; TEMP 36.9; O2SAT 99
[2019-02-04 19:35] VITALS: BMI 28.0
[2019-02-04] MEDS: Atorvastatin Calcium 80 MG Tablet PO (19:41)
[2019-02-04 19:51] LABS: Bedside Glucose 201 mg/dL (70-110)
[2019-02-04 20:56] LABS: Bedside Glucose 194 mg/dL (70-110)
[2019-02-04 22:00] VITALS: PULSE 65; RESP 17; O2SAT 65
[2019-02-05 06:51] LABS: Bedside Glucose 89 mg/dL (70-110)
[2019-02-05] MEDS: Pregabalin 50 MG Capsule 100 MG PO ×3 (06:54→19:47)
[2019-02-05 07:00] VITALS: BP 119/69; PULSE 65; RESP 16; TEMP 36.6; O2SAT 100
[2019-02-05] MEDS: Senna/Docusate Sodium 1 Tablet 2 TABLET PO ×2 (08:56→19:48)
[2019-02-05] MEDS: Clopidogrel Bisulfate 75 MG Tablet PO (08:57)
[2019-02-05] MEDS: cloNIDine HCl 0.1 MG Tablet PO ×2 (08:57→19:48)
[2019-02-05] MEDS: Fenofibrate 48 MG Tablet PO (08:57)
[2019-02-05] MEDS: Sertraline 50 MG Tablet PO (08:57)
[2019-02-05] MEDS: Pantoprazole Sodium 40 MG Tablet PO (08:57)
[2019-02-05] MEDS: Heparin Injection (Vial) 5,000 UNIT/ML VIAL 5000 UNIT SC ×2 (08:58→19:48)
[2019-02-05 11:40] LABS: Bedside Glucose 229 mg/dL (70-110)
[2019-02-05] MEDS: Insulin Lispro 100 UNIT/ML INSULN.PEN 8 UNIT SC ×2 (11:59→17:43)
[2019-02-05] MEDS: Insulin Lispro 100 UNIT/ML INSULN.PEN SC ×3 (11:59→21:15)
--- NOTE | 2019-02-05 14:44 | PN_ITS ---
Subjective: Patient seen and examined. Denies any neurologic symptoms. Denies current complaints. - Physical Exam Vitals/I&O's: Vital Signs Temp Pulse Resp BP Pulse Ox 97.8 F 65 16 119/69 100 02/05/19 07:00 02/05/19 07:00 02/05/19 07:00 02/05/19 07:00 02/05/19 07:00 Oxygen Delivery Method Room Air Weight: 206 lb Body Mass Index (BMI) 28.0 Finger Stick Blood Glucose 122 Intake and Output for Last 24 Hours 02/03/19 02/04/19 02/05/19 23:59 23:59 23:59 Intake Total 840 / 840 960 / 960 640 / 640 Balance 840 / 840 960 / 960 640 / 640 General: Alert, Oriented x3, Cooperative HEENT: Atraumatic, PERRLA, EOMI, Normocephalic Neck: Supple, No JVD, Negative Carotid Bruits Lungs: Clear to auscultation, Normal air movement Cardiovascular: Regular rate, Regular Rhythm, Normal S1, Normal S2, No murmurs Abdomen: Bowel Sounds Present, Soft, Non Tender Extremities: No clubbing, No cyanosis, No edema, Capillary Refill Less than 3 Seconds Skin: No rashes, No breakdown Musculoskeletal: No Tenderness to Palpation of Joints or Extremities Neurological: Cranial nerves II-XII grossly intact, - - Left-sided weakness. Psych/Mental Status: Normal Affect, Appropriate Laboratory Results 02/04/19 16:52: POC Glucose 150 H 02/04/19 19:38: POC Glucose 201 H 02/04/19 20:47: POC Glucose 194 H 02/05/19 06:41: POC Glucose 89 02/05/19 11:36: POC Glucose 229 H Current Medications Acetaminophen (Tylenol) 650 mg PO Q6H PRN PRN PRN Reason: Mild Pain (0-3/10)/Headache Atorvastatin Calcium (Lipitor) 80 mg PO QHS [facility] Last Admin: 02/04/19 19:41 Dose: 80 mg Documented by: Bisacodyl (Dulcolax) 10 mg RECTAL .PRN X 1 PRN PRN Reason: Constipation Clonidine (Catapres) 0.1 mg PO BID [facility] Last Admin: 02/05/19 08:57 Dose: 0.1 mg Documented by: Clopidogrel Bisulfate (Plavix) 75 mg PO DAILY [facility] Last Admin: 02/05/19 08:57 Dose: 75 mg Documented by: Diazepam (Valium) 5 mg PO BID PRN PRN PRN Reason: ANXIETY Fenofibrate (Tricor) 48 mg PO DAILY [facility] Last Admin: 02/05/19 08:57 Dose: 48 mg Documented by: Heparin Sodium (Porcine) (Heparin Na) 5,000 unit SC BID [facility] Last Admin: 02/05/19 08:58 Dose: 5,000 unit Documented by: Insulin Glargine (Lantus (Bkc)) 60 units SC DAILY@1999 [facility] Last Admin: 02/04/19 19:39 Dose: 60 u Documented by: Insulin Human Lispro (Humalog Kwikpen (Bkc)) 0 unit SC ACHS [facility]; Protocol Last Admin: 02/05/19 11:59 Dose: 2 u Documented by: Insulin Human Lispro (Humalog Kwikpen (Bkc)) 8 unit SC TIDAC [facility] Last Admin: 02/05/19 11:59 Dose: 8 u Documented by: Magnesium Hydroxide (Milk Of Magnesia) 30 ml PO .PRN X 1 PRN PRN Reason: Constipation Pantoprazole Sodium (Protonix) 40 mg PO DAILY [facility] Last Admin: 02/05/19 08:57 Dose: 40 mg Documented by: Pregabalin (Lyrica) 100 mg PO TID [facility] Last Admin: 02/05/19 14:18 Dose: 100 mg Documented by: Senna/Docusate Sodium (Senokot-S, Thalia-Colace) 2 tablet PO BID [facility] Last Admin: 02/05/19 08:56 Dose: 1 tablet Documented by: Sertraline HCl (Zoloft) 50 mg PO DAILY [facility] Last Admin: 02/05/19 08:57 Dose: 50 mg Documented by: Medical Necessity - Tobacco Use Smoking Status: Former smoker Tobacco Use: Chew, Pipe Assessment/Plan All Active Problems (Last Reviewed 01/12/19 @ 10:44 by Adriel Elizabeth MD) Syncope and collapse (Acute) CVA (cerebral vascular accident) (Acute) Syncope (Acute) Bradycardia (Acute) Intractable nausea and vomiting (Resolved) FLORY (acute kidney injury) (Acute) Nonketotic hyperglycinemia (Resolved) Nausea (Resolved) Abdominal pain (Resolved) Hematochezia (Resolved) 1. Acute/subacute right MAGDI infarct- PT/OT/ST. continue Plavix, statin. 2. Cardiomyopathy-EF 35 to 40%. Outpatient follow-up with cardiology. 3. Hypertension-stable, continue clonidine regimen. 4. Hyperlipidemia-continue statin. 5. Type 2 diabetes mellitus with qhnusnioax-Eums-Smjeh AC at bedtime. Continue insulin regimen. Continue Lyrica. 6. Depression/anxiety-continue Zoloft regimen. DVT prophylaxis- heparin sc This patient was seen by ALBIN Beard under the supervision of Dr. Haro.
[2019-02-05 17:00] VITALS: BMI 28.0
[2019-02-05 17:06] LABS: Bedside Glucose 187 mg/dL (70-110)
[2019-02-05 19:00] VITALS: BP 141/74; PULSE 68; RESP 16; TEMP 36.7; O2SAT 98
[2019-02-05] MEDS: Atorvastatin Calcium 80 MG Tablet PO (19:48)
[2019-02-05 20:53] VITALS: BMI 28.0
[2019-02-05 21:11] LABS: Bedside Glucose 195 mg/dL (70-110)
[2019-02-05 21:15] LABS: Bedside Glucose 190 mg/dL (70-110)
--- NOTE | 2019-02-06 04:35 | NURSING ---
pt asked staff to check blood sugar level as pt felt dry and was concerned with the adjustments made recently to insulin administration. BS level was 190.
[2019-02-06 04:46] LABS: Bedside Glucose 190 mg/dL (70-110)
[2019-02-06] MEDS: Pregabalin 50 MG Capsule 100 MG PO ×3 (05:21→20:39)
[2019-02-06] MEDS: Insulin Lispro 100 UNIT/ML INSULN.PEN SC ×4 (06:40→20:39)
[2019-02-06] MEDS: Insulin Lispro 100 UNIT/ML INSULN.PEN 8 UNIT SC ×3 (06:40→17:13)
[2019-02-06 06:50] LABS: Bedside Glucose 167 mg/dL (70-110)
[2019-02-06 07:10] VITALS: BP 157/78; PULSE 59; RESP 16; TEMP 36.3; O2SAT 96
[2019-02-06] MEDS: Heparin Injection (Vial) 5,000 UNIT/ML VIAL 5000 UNIT SC ×2 (07:52→20:40)
[2019-02-06] MEDS: Fenofibrate 48 MG Tablet PO (07:54)
[2019-02-06] MEDS: Sertraline 50 MG Tablet PO (07:54)
[2019-02-06] MEDS: Senna/Docusate Sodium 1 Tablet 2 TABLET PO ×2 (07:54→20:39)
[2019-02-06] MEDS: cloNIDine HCl 0.1 MG Tablet PO ×2 (07:55→20:39)
[2019-02-06] MEDS: Clopidogrel Bisulfate 75 MG Tablet PO (07:55)
[2019-02-06] MEDS: Pantoprazole Sodium 40 MG Tablet PO (07:55)
--- NOTE | 2019-02-06 09:49 | PN.NEURO_ITS ---
Subjective: Per nursing, no issues overnight. Patient continues to tolerate therapies well. - Physical Exam Vitals/I&O's: Vital Signs Temp Pulse Resp BP Pulse Ox 97.4 F L 59 L 16 157/78 H 96 02/06/19 07:10 02/06/19 07:10 02/06/19 07:10 02/06/19 07:10 02/06/19 07:10 Oxygen Delivery Method Room Air Weight: 93.44 kg Body Mass Index (BMI) 28.0 Finger Stick Blood Glucose 122 Intake and Output for Last 24 Hours 02/04/19 02/05/19 02/06/19 23:59 23:59 23:59 Intake Total 960 / 960 880 / 880 440 / 440 Output Total 700 / 700 Balance 960 / 960 880 / 880 -260 / -260 General: Alert, Oriented x3, Cooperative HEENT: Atraumatic, PERRLA, EOMI Oral: Moist Mucosa Neck: Supple, No JVD Lungs: Clear to auscultation, Normal air movement Cardiovascular: Regular rate, Regular Rhythm Abdomen: Bowel Sounds Present, Soft, Non Tender Extremities: No clubbing, No cyanosis, No edema Neurological: Cranial nerves II-XII grossly intact, Deep Tendon Reflexes 2+/4 and Symmetrical, - - Motor strength RUE/RLE 5/5, LUE 4/5, LLE 3/5. Sensation intact from vivas to bilateral feet with tactile Psych/Mental Status: Normal Affect, Appropriate, Alert and oriented to time, place, person, mood and affect Laboratory Results 02/05/19 11:36: POC Glucose 229 H 02/05/19 16:47: POC Glucose 187 H 02/05/19 19:45: POC Glucose 195 H 02/05/19 21:12: POC Glucose 190 H 02/06/19 04:34: POC Glucose 190 H 02/06/19 06:39: POC Glucose 167 H Current Medications Acetaminophen (Tylenol) 650 mg PO Q6H PRN PRN PRN Reason: Mild Pain (0-3/10)/Headache Atorvastatin Calcium (Lipitor) 80 mg PO QHS [facility] Last Admin: 02/05/19 19:48 Dose: 80 mg Documented by: Bisacodyl (Dulcolax) 10 mg RECTAL .PRN X 1 PRN PRN Reason: Constipation Clonidine (Catapres) 0.1 mg PO BID [facility] Last Admin: 02/06/19 07:55 Dose: 0.1 mg Documented by: Clopidogrel Bisulfate (Plavix) 75 mg PO DAILY [facility] Last Admin: 02/06/19 07:55 Dose: 75 mg Documented by: Diazepam (Valium) 5 mg PO BID PRN PRN PRN Reason: ANXIETY Fenofibrate (Tricor) 48 mg PO DAILY [facility] Last Admin: 02/06/19 07:54 Dose: 48 mg Documented by: Heparin Sodium (Porcine) (Heparin Na) 5,000 unit SC BID [facility] Last Admin: 02/06/19 07:52 Dose: 5,000 unit Documented by: Insulin Glargine (Lantus (Bkc)) 60 units SC DAILY@1999 [facility] Last Admin: 02/05/19 19:46 Dose: 60 u Documented by: Insulin Human Lispro (Humalog Kwikpen (Bkc)) 0 unit SC ACHS [facility]; Protocol Last Admin: 02/06/19 06:40 Dose: 1 u Documented by: Insulin Human Lispro (Humalog Kwikpen (Bkc)) 8 unit SC TIDAC [facility] Last Admin: 02/06/19 06:40 Dose: 8 u Documented by: Magnesium Hydroxide (Milk Of Magnesia) 30 ml PO .PRN X 1 PRN PRN Reason: Constipation Pantoprazole Sodium (Protonix) 40 mg PO DAILY [facility] Last Admin: 02/06/19 07:55 Dose: 40 mg Documented by: Pregabalin (Lyrica) 100 mg PO TID [facility] Last Admin: 02/06/19 05:21 Dose: 100 mg Documented by: Senna/Docusate Sodium (Senokot-S, Thalia-Colace) 2 tablet PO BID [facility] Last Admin: 02/06/19 07:54 Dose: 2 tablet Documented by: Sertraline HCl (Zoloft) 50 mg PO DAILY [facility] Last Admin: 02/06/19 07:54 Dose: 50 mg Documented by: STROKE Vital Signs/Narrative: Vital Signs Temp Pulse Resp BP Pulse Ox 02/06/19 07:10 97.4 F L 59 L 16 157/78 H 96 Medical Necessity - Tobacco Use Smoking Status: Former smoker Tobacco Use: Chew, Pipe Assessment/Plan All Active Problems (Last Reviewed 01/12/19 @ 10:44 by Adriel Elizabeth MD) Syncope and collapse (Acute) CVA (cerebral vascular accident) (Acute) Syncope (Acute) Bradycardia (Acute) Intractable nausea and vomiting (Resolved) FLORY (acute kidney injury) (Acute) Nonketotic hyperglycinemia (Resolved) Nausea (Resolved) Abdominal pain (Resolved) Hematochezia (Resolved) The patient is a 58 year old M with PMH of HTN, DM type II, anxiety, depression admitted to [facility] on 01/13/2019 for 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 On 01/11/2019, patient presented to [facility] due to syncopal episode and left leg weakness. Patient stated he was sitting up in his recliner and when he awoke he was laying on the floor, voiced hitting head. CT of head showed no acute findings. MRI brain without contrast showed acute or subacute infarct right MAGDI, without hemorrhage. 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 MRA of neck showed normal bilateral cervical carotid and vertebral arteries. Echocardiogram showed EF of 35 to 40%, stage I diastolic dysfunction, posterior?basal severely hypokinetic, and inferior basal severely hypokinetic, unable to estimate RV systolic pressure due to insufficient tricuspid regurgitant envelope. LDL 155, HgbA1c 9.0%. Developed FLORY: BUN/Cr 27/1.76. Patient on statin, plavix, and aspirin di scontinued. No antihypertensives for 5 to 7 days post stroke unless systolic is 200. . Patient has history of positive snoring, daytime tiredness, awakens 1- 2x/night for bathroom, and naps daily. Outpatient PSG study to be done, patient agreeable. Patient lives with spouse in a two-story house with first-floor set up, modified independent with ADLs, mobility with walker or cane, and driving to hospitalization. Plan - PT for mobility - OT for ADLs - ST for evaluation - Right MAGDI infarct- BP goal <130/80, on statin and antihypertensive - HTN BP goal <130/80 on catapres - DM type II HgbA1c 9.0%, on lantus, humalog S.C, accuchecks ac/hs - Depression/anxiety on zoloft and valium prn - HLD LDL 155 on statin, fenofibrate - neuropathy- chronic on lyrica - GI/DVT prophylaxis on protonix/heparin, knee high haylie bernice - [place]ACLE - PSG outpatient - Medical management per hospitalist- consult - FLORY on 01/26 BUN/Cr 38/1.72 - Cardiomyopathy EF 35-40% f/u with cardiology at discharge - Analgesics as needed - Bowel protocol - Fall precautions - F/U with PCP, neurology, cardiology ( Dr. Dobbs), outpatient PSG
--- NOTE | 2019-02-06 11:54 | NURSING ---
MEGHAN Dey is in contact with [employer] in regards to brace for pt
[2019-02-06 12:10] LABS: Bedside Glucose 262 mg/dL (70-110)
[2019-02-06 12:39] VITALS: BP 128/69; PULSE 66
[2019-02-06 12:58] VITALS: BMI 28.0
[2019-02-06] MEDS: Acetaminophen 325 MG Tablet 650 MG PO ×2 (16:19→22:19)
[2019-02-06 16:35] LABS: Bedside Glucose 157 mg/dL (70-110)
[2019-02-06 18:42] VITALS: BP 147/71; PULSE 66; RESP 16; TEMP 37.1; O2SAT 97
[2019-02-06] MEDS: Atorvastatin Calcium 80 MG Tablet PO (20:39)
[2019-02-06 21:42] VITALS: PULSE 66
[2019-02-06 21:46] LABS: Bedside Glucose 225 mg/dL (70-110)
[2019-02-06 21:47] VITALS: BMI 28.0
[2019-02-06 22:51] LABS: Bedside Glucose 215 mg/dL (70-110)
[2019-02-06] MEDS: diazePAM 5 MG Tablet PO (23:10)
[2019-02-06] MEDS: Ondansetron 8 MG Tablet PO (23:15)
[2019-02-07] MEDS: Pregabalin 50 MG Capsule 100 MG PO ×3 (06:30→20:22)
[2019-02-07 06:36] LABS: Bedside Glucose 143 mg/dL (70-110)
[2019-02-07 07:06] VITALS: BP 140/83; PULSE 66; RESP 16; TEMP 36.9; O2SAT 98
[2019-02-07] MEDS: Senna/Docusate Sodium 1 Tablet 2 TABLET PO ×2 (07:31→20:24)
[2019-02-07] MEDS: cloNIDine HCl 0.1 MG Tablet PO ×2 (07:32→20:23)
[2019-02-07] MEDS: Clopidogrel Bisulfate 75 MG Tablet PO (07:32)
[2019-02-07] MEDS: Sertraline 50 MG Tablet PO (07:33)
[2019-02-07] MEDS: Heparin Injection (Vial) 5,000 UNIT/ML VIAL 5000 UNIT SC ×2 (07:33→20:21)
[2019-02-07] MEDS: Fenofibrate 48 MG Tablet PO (07:33)
[2019-02-07] MEDS: Pantoprazole Sodium 40 MG Tablet PO (07:33)
[2019-02-07] MEDS: Insulin Lispro 100 UNIT/ML INSULN.PEN 8 UNIT SC ×3 (07:38→17:14)
--- NOTE | 2019-02-07 09:24 | PN.NEURO_ITS ---
Subjective: Per nursing, no issues overnight. Patient continues to tolerate therapies well. Denies further questions or concern. - Physical Exam Vitals/I&O's: Vital Signs Temp Pulse Resp BP Pulse Ox 98.4 F 66 16 140/83 H 98 02/07/19 07:06 02/07/19 07:06 02/07/19 07:06 02/07/19 07:06 02/07/19 07:06 Oxygen Delivery Method Room Air Weight: 93.44 kg Body Mass Index (BMI) 28.0 Finger Stick Blood Glucose 122 Intake and Output for Last 24 Hours 02/05/19 02/06/19 02/07/19 23:59 23:59 23:59 Intake Total 880 / 880 920 / 920 Output Total 1200 / 1200 Balance 880 / 880 -280 / -280 General: Alert, Oriented x3, Cooperative HEENT: Atraumatic, PERRLA, EOMI Oral: Moist Mucosa Neck: Supple, No JVD Lungs: Clear to auscultation, Normal air movement Cardiovascular: Regular rate, Regular Rhythm Abdomen: Bowel Sounds Present, Soft, Non Tender Extremities: No clubbing, No cyanosis, No edema Neurological: Cranial nerves II-XII grossly intact, Deep Tendon Reflexes 2+/4 and Symmetrical, - - Motor strength RUE/RLE 5/5, LUE 4/5, LLE 3/5. Sensation intact from vivas to bilateral feet with tactile Psych/Mental Status: Normal Affect, Appropriate, Alert and oriented to time, place, person, mood and affect Laboratory Results 02/06/19 11:55: POC Glucose 262 H 02/06/19 16:20: POC Glucose 157 H 02/06/19 20:16: POC Glucose 225 H 02/06/19 22:47: POC Glucose 215 H 02/07/19 06:27: POC Glucose 143 H Current Medications Acetaminophen (Tylenol) 650 mg PO Q6H PRN PRN PRN Reason: Mild Pain (0-3/10)/Headache Last Admin: 02/06/19 22:19 Dose: 650 mg Documented by: Atorvastatin Calcium (Lipitor) 80 mg PO QHS [facility] Last Admin: 02/06/19 20:39 Dose: 80 mg Documented by: Bisacodyl (Dulcolax) 10 mg RECTAL .PRN X 1 PRN PRN Reason: Constipation Clonidine (Catapres) 0.1 mg PO BID [facility] Last Admin: 02/07/19 07:32 Dose: 0.1 mg Documented by: Clopidogrel Bisulfate (Plavix) 75 mg PO DAILY [facility] Last Admin: 02/07/19 07:32 Dose: 75 mg Documented by: Diazepam (Valium) 5 mg PO BID PRN PRN PRN Reason: ANXIETY Last Admin: 02/06/19 23:10 Dose: 5 mg Documented by: Fenofibrate (Tricor) 48 mg PO DAILY [facility] Last Admin: 02/07/19 07:33 Dose: 48 mg Documented by: Heparin Sodium (Porcine) (Heparin Na) 5,000 unit SC BID [facility] Last Admin: 02/07/19 07:33 Dose: 5,000 unit Documented by: Insulin Glargine (Lantus (Bkc)) 60 units SC DAILY@1999 [facility] Last Admin: 02/06/19 20:19 Dose: 60 u Documented by: Insulin Human Lispro (Humalog Kwikpen (Bkc)) 0 unit SC [facility] ON [facility]; Protocol Last Admin: 02/07/19 06:30 Dose: Not Given Documented by: Insulin Human Lispro (Humalog Kwikpen (Bkc)) 8 unit SC TIDAC [facility] Last Admin: 02/07/19 07:38 Dose: 8 u Documented by: Magnesium Hydroxide (Milk Of Magnesia) 30 ml PO .PRN X 1 PRN PRN Reason: Constipation Ondansetron HCl (Zofran) 8 mg PO Q8H PRN PRN PRN Reason: nausea, emesis Last Admin: 02/06/19 23:15 Dose: 8 mg Documented by: Pantoprazole Sodium (Protonix) 40 mg PO DAILY [facility] Last Admin: 02/07/19 07:33 Dose: 40 mg Documented by: Pregabalin (Lyrica) 100 mg PO TID [facility] Last Admin: 02/07/19 06:30 Dose: 100 mg Documented by: Senna/Docusate Sodium (Senokot-S, Thalia-Colace) 2 tablet PO BID [facility] Last Admin: 02/07/19 07:31 Dose: 2 tablet Documented by: Sertraline HCl (Zoloft) 50 mg PO DAILY [facility] Last Admin: 02/07/19 07:33 Dose: 50 mg Documented by: STROKE Vital Signs/Narrative: Vital Signs Temp Pulse Resp BP Pulse Ox 10/29/19 07:06 98.4 F 66 16 140/83 H 98 Medical Necessity - Tobacco Use Smoking Status: Former smoker Tobacco Use: Chew, Pipe Assessment/Plan All Active Problems (Last Reviewed 01/12/19 @ 10:44 by Adriel Elizabeth MD) Syncope and collapse (Acute) CVA (cerebral vascular accident) (Acute) Syncope (Acute) Bradycardia (Acute) Intractable nausea and vomiting (Resolved) FLORY (acute kidney injury) (Acute) Nonketotic hyperglycinemia (Resolved) Nausea (Resolved) Abdominal pain (Resolved) Hematochezia (Resolved) The patient is a 58 year old M with PMH of HTN, DM type II, anxiety, depression admitted to [facility] on 01/13/2019 for 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 On 01/11/2019, patient presented to [facility] due to syncopal episode and left leg weakness. Patient stated he was sitting up in his recliner and when he awoke he was laying on the floor, voiced hitting head. CT of head showed no acute findings. MRI brain without contrast showed acute or subacute infarct right MAGDI, without hemorrhage. 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 MRA of neck showed normal bilateral cervical carotid and vertebral arteries. Echocardiogram showed EF of 35 to 40%, stage I diastolic dysfunction, posterior?basal severely hypokinetic, and inferior basal severely hypokinetic, unable to estimate RV systolic pressure due to insufficient tricuspid regurgitant envelope. LDL 155, HgbA1c 9.0%. Developed FLORY: BUN/Cr 27/1.76. Patient on statin, plavix, and aspirin discontinued. No antihypertensives for 5 to 7 days post stroke unless systolic is 200. . Patient has history of positive snoring, daytime tiredness, awakens 1- 2x/night for bathroom, and naps daily. Outpatient PSG study to be done, patient agreeable. Patient lives with spouse in a two-story house with first-floor set up, modified independent with ADLs, mobility with walker or cane, and driving to hospitalization. Plan - PT for mobility - OT for ADLs - ST for evaluation - Right MAGDI infarct- BP goal <130/80, on statin and antihypertensive - HTN BP goal <130/80 on catapres - DM type II HgbA1c 9.0%, on lantus, humalog S.C, accuchecks ac/hs - Depression/anxiety on zoloft and valium prn - HLD LDL 155 on statin, fenofibrate - Neuropathy- chronic on lyrica - GI/DVT prophylaxis on protonix/heparin, knee high haylie queen - [place]ACLE - PSG outpatient - Medical management per hospitalist- consult - FLORY on 01/26 BUN/Cr 38/1.72 - Cardiomyopathy EF 35-40% f/u with cardiology at discharge - Analgesics as needed - Bowel protocol - Fall precautions - F/U with PCP, neurology, cardiology ( Dr. Dobbs), outpatient PSG
[2019-02-07 11:16] LABS: Bedside Glucose 175 mg/dL (70-110)
--- NOTE | 2019-02-07 11:53 | CASEMGMT ---
Social Work Spoke with patient whom is requesting to transfer to [facility] 02/10. Patient states he would like to get settled and continue therapy there so his can also get settled with their new housing arrangements. [facility] is able to accept 02/10. Sent updated clinicals to submit for precert - notified nurse reviewer at [facility] as insurance update is 02/08. Will continue to follow. ELLEN VanessaW
[2019-02-07] MEDS: Insulin Lispro 100 UNIT/ML INSULN.PEN SC ×2 (12:19→20:21)
[2019-02-07 12:43] VITALS: BMI 28.0
--- NOTE | 2019-02-07 13:53 | CASEMGMT ---
Insurance: Continued stay review sent to MMO through [employer] this day. Auth [id number]
[2019-02-07 16:36] LABS: Bedside Glucose 142 mg/dL (70-110)
[2019-02-07 18:53] VITALS: BP 133/64; PULSE 69; RESP 16; TEMP 37.1; O2SAT 98
[2019-02-07 20:00] VITALS: PULSE 69; RESP 16; O2SAT 98; BMI 28.0
[2019-02-07] MEDS: Atorvastatin Calcium 80 MG Tablet PO (20:23)
[2019-02-07 21:45] LABS: Bedside Glucose 199 mg/dL (70-110)
--- NOTE | 2019-02-07 23:54 | NURSING ---
1999 clinical findigs completed and accu-check done value 199. pt refused to take the 60 units of lantus that was ordered stating that he got sick after taking it at [facility] yesterday, pt stated that who ever order that much insulin needs to back to college. pt was agreeable to taking the 45 units that he had been before. rn aware
--- NOTE | 2019-02-08 00:38 | NURSING ---
Reviewed and agree with DIGITAL ADVISOR documentation and charting.
[2019-02-08] MEDS: Pregabalin 50 MG Capsule 100 MG PO ×3 (06:06→21:10)
[2019-02-08 06:51] LABS: Bedside Glucose 111 mg/dL (70-110)
[2019-02-08 07:00] VITALS: BP 148/82; PULSE 65; RESP 18; TEMP 36.6; O2SAT 99
[2019-02-08] MEDS: cloNIDine HCl 0.1 MG Tablet PO ×2 (07:52→21:14)
[2019-02-08] MEDS: Sertraline 50 MG Tablet PO (07:52)
[2019-02-08] MEDS: Clopidogrel Bisulfate 75 MG Tablet PO (07:52)
[2019-02-08] MEDS: Senna/Docusate Sodium 1 Tablet 2 TABLET PO ×2 (07:52→21:16)
[2019-02-08] MEDS: Pantoprazole Sodium 40 MG Tablet PO (07:52)
[2019-02-08] MEDS: Fenofibrate 48 MG Tablet PO (07:52)
[2019-02-08] MEDS: Heparin Injection (Vial) 5,000 UNIT/ML VIAL 5000 UNIT SC ×2 (09:45→21:15)
--- NOTE | 2019-02-08 10:51 | PN.NEURO_ITS ---
Subjective: Per nursing, no issues. Patient requesting to be discharged to [facility] on 02/10/19, SW aware. Patient continues to tolerate therapies well. Denies further questions or concerns. - Physical Exam Vitals/I&O's: Vital Signs Temp Pulse Resp BP Pulse Ox 97.9 F 65 18 148/82 H 99 02/08/19 07:00 02/08/19 07:00 02/08/19 07:00 02/08/19 07:00 02/08/19 07:00 Oxygen Delivery Method Room Air Weight: 95.9 kg Body Mass Index (BMI) 28.0 Finger Stick Blood Glucose 122 Intake and Output for Last 24 Hours 02/06/19 02/07/19 02/08/19 23:59 23:59 23:59 Intake Total 920 / 920 240 / 240 Output Total 1200 / 1200 Balance -280 / -280 240 / 240 General: Alert, Oriented x3, Cooperative HEENT: Atraumatic, PERRLA, EOMI Oral: Moist Mucosa Neck: Supple, No JVD Lungs: Clear to auscultation, Normal air movement Cardiovascular: Regular rate, Regular Rhythm Abdomen: Bowel Sounds Present, Soft, Non Tender Extremities: No clubbing, No cyanosis, No edema Neurological: Cranial nerves II-XII grossly intact, Deep Tendon Reflexes 2+/4 and Symmetrical, - - Motor strength RUE/RLE 5/5, LUE/LLE 4/5 Sensation intact from vivas to bilateral feet with tactile Psych/Mental Status: Normal Affect, Appropriate, Alert and oriented to time, place, person, mood and affect Laboratory Results 02/07/19 11:13: POC Glucose 175 H 02/07/19 16:30: POC Glucose 142 H 02/07/19 20:13: POC Glucose 199 H 02/08/19 06:26: POC Glucose 111 H Current Medications Acetaminophen (Tylenol) 650 mg PO Q6H PRN PRN PRN Reason: Mild Pain (0-3/10)/Headache Last Admin: 02/06/19 22:19 Dose: 650 mg Documented by: Atorvastatin Calcium (Lipitor) 80 mg PO QHS [facility] Last Admin: 02/07/19 20:23 Dose: 80 mg Documented by: Bisacodyl (Dulcolax) 10 mg RECTAL .PRN X 1 PRN PRN Reason: Constipation Clonidine (Catapres) 0.1 mg PO BID [facility] Last Admin: 02/08/19 07:52 Dose: 0.1 mg Documented by: Clopidogrel Bisulfate (Plavix) 75 mg PO DAILY [facility] Last Admin: 02/08/19 07:52 Dose: 75 mg Documented by: Diazepam (Valium) 5 mg PO BID PRN PRN PRN Reason: ANXIETY Last Admin: 02/06/19 23:10 Dose: 5 mg Documented by: Fenofibrate (Tricor) 48 mg PO DAILY [facility] Last Admin: 02/08/19 07:52 Dose: 48 mg Documented by: Heparin Sodium (Porcine) (Heparin Na) 5,000 unit SC BID [facility] Last Admin: 02/08/19 09:45 Dose: 5,000 unit Documented by: Insulin Glargine (Lantus (Bkc)) 60 units SC DAILY@1999 [facility] Last Admin: 02/07/19 20:22 Dose: 45 u Documented by: Insulin Human Lispro (Humalog Kwikpen (Bk)) 0 unit SC [facility]; Protocol Last Admin: 02/08/19 06:27 Dose: Not Given Documented by: Insulin Human Lispro (Humalog Kwikpen (Bkc)) 8 unit SC TIDAC [facility] Last Admin: 02/08/19 07:31 Dose: Not Given Documented by: Magnesium Hydroxide (Milk Of Magnesia) 30 ml PO .PRN X 1 PRN PRN Reason: Constipation Ondansetron HCl (Zofran) 8 mg PO Q8H PRN PRN PRN Reason: nausea, emesis Last Admin: 02/06/19 23:15 Dose: 8 mg Documented by: Pantoprazole Sodium (Protonix) 40 mg PO DAILY [facility] Last Admin: 02/08/19 07:52 Dose: 40 mg Documented by: Pregabalin (Lyrica) 100 mg PO TID [facility] Last Admin: 02/08/19 06:06 Dose: 100 mg Documented by: Senna/Docusate Sodium (Senokot-S, Thalia-Colace) 2 tablet PO BID [facility] Last Admin: 02/08/19 07:52 Dose: 1 tablet Documented by: Sertraline HCl (Zoloft) 50 mg PO DAILY [facility] Last Admin: 02/08/19 07:52 Dose: 50 mg Documented by: STROKE Vital Signs/Narrative: Vital Signs Temp Pulse Resp BP Pulse Ox 02/08/19 07:00 97.9 F 65 18 148/82 H 99 Medical Necessity - Tobacco Use Smoking Status: Former smoker Tobacco Use: Chew, Pipe Assessment/Plan All Active Problems (Last Reviewed 01/12/19 @ 10:44 by Adriel Elizabeth MD) Syncope and collapse (Acute) CVA (cerebral vascular accident) (Acute) Syncope (Acute) Bradycardia (Acute) Intractable nausea and vomiting (Resolved) FLORY (acute kidney injury) (Acute) Nonketotic hyperglycinemia (Resolved) Nausea (Resolved) Abdominal pain (Resolved) Hematochezia (Resolved) The patient is a 58 year old M with PMH of HTN, DM type II, anxiety, depression admitted to [facility] on 01/13/2019 for 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 On 01/11/2019, patient presented to [facility] due to syncopal episode and left leg weakness. Patient stated he was sitting up in his recliner and when he awoke he was laying on the floor, voiced hitting head. CT of head showed no acute findings. MRI brain without contrast showed acute or subacute infarct right MAGDI, without hemorrhage. 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 MRA of neck showed normal bilateral cervical carotid and vertebral arteries. Echocardiogram showed EF of 35 to 40%, stage I diastolic dysfunction, posterior?basal severely hypokinetic, and inferior basal severely hypokinetic, unable to estimate RV systolic pressure due to insufficient tricuspid regurgitant envelope. LDL 155, HgbA1c 9.0%. Developed FLORY: BUN/Cr 27/1.76. Patient on statin, plavix, and aspirin discontinued. No antihypertensives for 5 to 7 days post stroke unless systolic is 200. . Patient has history of positive snoring, daytime tiredness, awakens 1- 2x/night for bathroom, and naps daily. Outpatient PSG study to be done, patient agreeable. Patient lives with spouse in a two-story house with first-floor set up, modified independent with ADLs, mobility with walker or cane, and driving to hospitalization. Plan - PT for mobility - OT for ADLs - ST for evaluation - Right MAGDI infarct- BP goal <130/80, on statin and antihypertensive - HTN BP goal <130/80 on catapres - DM type II HgbA1c 9.0%, on lantus, humalog S.C, accuchecks ac/hs - Depression/anxiety on zoloft and valium prn - HLD LDL 155 on statin, fenofibrate - Neuropathy- chronic on lyrica - GI/DVT prophylaxis on protonix/heparin, knee high haylie queen - [place]LE - PSG outpatient - Medical management per hospitalist- consult - FLORY on 01/26 BUN/Cr 38/1.72 - Cardiomyopathy EF 35-40% f/u with cardiology at discharge - Analgesics as needed - Bowel protocol - Fall precautions - F/U with PCP, neurology, cardiology ( Dr. Dobbs), outpatient PSG
[2019-02-08 11:46] LABS: Bedside Glucose 216 mg/dL (70-110)
[2019-02-08] MEDS: Insulin Lispro 100 UNIT/ML INSULN.PEN SC ×3 (12:48→21:15)
[2019-02-08] MEDS: Insulin Lispro 100 UNIT/ML INSULN.PEN 8 UNIT SC ×2 (12:48→17:02)
[2019-02-08 13:48] VITALS: BMI 28.0
[2019-02-08 16:35] LABS: Bedside Glucose 176 mg/dL (70-110)
[2019-02-08 19:19] VITALS: BP 141/70; PULSE 71; RESP 16; TEMP 36.8; O2SAT 99
[2019-02-08 21:06] LABS: Bedside Glucose 150 mg/dL (70-110)
[2019-02-08] MEDS: Atorvastatin Calcium 80 MG Tablet PO (21:16)
--- NOTE | 2019-02-08 21:50 | NURSING ---
upon 2100 assessment, pt accu-check noted to be 150. pt refused 60 unit dose of lantus and requested 45 units. pt told this nurse that upon receiving 60 units the other night, pt became nauseated and had emesis. pt is requesting a change of lantus back to 45 units. note left for MARINE STRUCTURAL DESIGNERRamila. RN, Lizette fisher. 2 cartons of 2% milk given with insulin per pt request.
[2019-02-08 23:33] VITALS: BMI 28.0
[2019-02-09] MEDS: Pregabalin 50 MG Capsule 100 MG PO ×3 (06:01→21:25)
[2019-02-09 06:35] LABS: Bedside Glucose 171 mg/dL (70-110)
[2019-02-09] MEDS: Sertraline 50 MG Tablet PO (08:08)
[2019-02-09] MEDS: Insulin Lispro 100 UNIT/ML INSULN.PEN SC ×3 (08:09→21:24)
[2019-02-09] MEDS: cloNIDine HCl 0.1 MG Tablet PO ×2 (08:09→21:24)
[2019-02-09] MEDS: Senna/Docusate Sodium 1 Tablet 2 TABLET PO ×2 (08:09→21:26)
[2019-02-09] MEDS: Fenofibrate 48 MG Tablet PO (08:09)
[2019-02-09] MEDS: Pantoprazole Sodium 40 MG Tablet PO (08:09)
[2019-02-09] MEDS: Insulin Lispro 100 UNIT/ML INSULN.PEN 8 UNIT SC ×3 (08:10→17:26)
[2019-02-09] MEDS: Heparin Injection (Vial) 5,000 UNIT/ML VIAL 5000 UNIT SC ×2 (08:11→21:24)
[2019-02-09] MEDS: Clopidogrel Bisulfate 75 MG Tablet PO (08:11)
[2019-02-09 08:33] VITALS: BP 148/88; PULSE 65; RESP 16; TEMP 36.6; O2SAT 98
[2019-02-09 08:40] VITALS: PULSE 70
--- NOTE | 2019-02-09 09:05 | PN.NEURO_ITS ---
Subjective: Team meeting today. Further details per OT/PT/ST notes. All questions answered. Pending insurance approval for discharge to [facility]. - Physical Exam Vitals/I&O's: Vital Signs Temp Pulse Resp BP Pulse Ox 97.8 F 65 16 148/88 H 98 02/09/19 08:33 02/09/19 08:33 02/09/19 08:33 02/09/19 08:33 02/09/19 08:33 Oxygen Delivery Method Room Air Weight: 95.9 kg Body Mass Index (BMI) 28.0 Finger Stick Blood Glucose 122 Intake and Output for Last 24 Hours 02/07/19 02/08/19 02/09/19 23:59 23:59 23:59 Intake Total 880 / 880 440 / 440 Balance 880 / 880 440 / 440 General: Alert, Oriented x3, Cooperative HEENT: Atraumatic, PERRLA, EOMI Oral: Moist Mucosa Neck: Supple, No JVD Lungs: Clear to auscultation, Normal air movement Cardiovascular: Regular rate, Regular Rhythm Abdomen: Bowel Sounds Present, Soft, Non Tender Extremities: No clubbing, No cyanosis, No edema Skin: No rashes, No breakdown Neurological: Cranial nerves II-XII grossly intact, Deep Tendon Reflexes 2+/4 and Symmetrical, - - Motor strength RUE/RLE 5/5, LUE/LLE 4/5 Sensation intact from vivas to bilateral feet with tactile Psych/Mental Status: Normal Affect, Appropriate, Alert and oriented to time, place, person, mood and affect Laboratory Results 02/08/19 11:41: POC Glucose 216 H 02/08/19 16:27: POC Glucose 176 H 02/08/19 20:59: POC Glucose 150 H 02/09/19 06:14: POC Glucose 171 H Current Medications Acetaminophen (Tylenol) 650 mg PO Q6H PRN PRN PRN Reason: Mild Pain (0-3/10)/Headache Last Admin: 02/06/19 22:19 Dose: 650 mg Documented by: Atorvastatin Calcium (Lipitor) [address] [facility] Last Admin: 02/08/19 21:16 Dose: 80 mg Documented by: Bisacodyl (Dulcolax) 10 mg RECTAL .PRN X 1 PRN PRN Reason: Constipation Clonidine (Catapres) 0.[address] [facility] Last Admin: 02/09/19 08:09 Dose: 0.1 mg Documented by: Clopidogrel Bisulfate (Plavix) [address] [facility] Last Admin: 02/09/19 08:11 Dose: 75 mg Documented by: Diazepam (Valium) 5 mg PO BID PRN PRN PRN Reason: ANXIETY Last Admin: 02/06/19 23:10 Dose: 5 mg Documented by: Fenofibrate (Tricor) [address] [facility] Last Admin: 02/09/19 08:09 Dose: 48 mg Documented by: Heparin Sodium (Porcine) (Heparin Na) 5,[address] [facility] Last Admin: 02/09/19 08:11 Dose: 5,000 unit Documented by: Insulin Glargine (Lantus (Bkc)) 60 units SC DAILY@1999 [facility] Last Admin: 02/08/19 20:59 Dose: 45 u Documented by: Insulin Human Lispro (Humalog Kwikpen (Bkc)) [address] [facility]; Protocol Last Admin: 02/09/19 08:09 Dose: 1 u Documented by: Insulin Human Lispro (Humalog Kwikpen (Bkc)) [address] [facility] Last Admin: 02/09/19 08:10 Dose: 8 u Documented by: Magnesium Hydroxide (Milk Of Magnesia) 30 ml PO .PRN X 1 PRN PRN Reason: Constipation Ondansetron HCl (Zofran) 8 mg PO Q8H PRN PRN PRN Reason: nausea, emesis Last Admin: 02/06/19 23:15 Dose: 8 mg Documented by: Pantoprazole Sodium (Protonix) [address] [facility] Last Admin: 02/09/19 08:09 Dose: 40 mg Documented by: Pregabalin (Lyrica) [address] [facility] Last Admin: 02/09/19 06:01 Dose: 100 mg Documented by: Senna/Docusate Sodium (Senokot-S, Thalia-Colace) [address] [facility] Last Admin: 02/09/19 08:09 Dose: 1 tablet Documented by: Sertraline HCl (Zoloft) [address] [facility] Last Admin: 02/09/19 08:08 Dose: 50 mg Documented by: STROKE Vital Signs/Narrative: Vital Signs Temp Pulse Resp BP Pulse Ox 02/09/19 08:33 97.8 F 65 16 148/88 H 98 Medical Necessity - Tobacco Use Smoking Status: Former smoker Tobacco Use: Chew, Pipe Assessment/Plan All Active Problems (Last Reviewed 01/12/19 @ 10:44 by Adriel Elizabeth MD) Syncope and collapse (Acute) CVA (cerebral vascular accident) (Acute) Syncope (Acute) Bradycardia (Acute) Intractable nausea and vomiting (Resolved) FLORY (acute kidney injury) (Acute) Nonketotic hyperglycinemia (Resolved) Nausea (Resolved) Abdominal pain (Resolved) Hematochezia (Resolved) The patient is a 58 year old M with PMH of HTN, DM type II, anxiety, depression admitted to [facility] on 01/13/2019 for 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 On 01/11/2019, patient presented to [facility] due to syncopal episode and left leg weakness. Patient stated he was sitting up in his recliner and when he awoke he was laying on the floor, voiced hitting head. CT of head showed no acute findings. MRI brain without contrast showed acute or subacute infarct right MAGDI, without hemorrhage. 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 MRA of neck showed normal bilateral cervical carotid and vertebral arteries. Echocardiogram showed EF of 35 to 40%, stage I diastolic dysfunction, posterior?basal severely hypokinetic, and i nferior basal severely hypokinetic, unable to estimate RV systolic pressure due to insufficient tricuspid regurgitant envelope. LDL 155, HgbA1c 9.0%. Developed FLORY: BUN/Cr 27/1.76. Patient on statin, plavix, and aspirin discontinued. No antihypertensives for 5 to 7 days post stroke unless systolic is 200. . Patient has history of positive snoring, daytime tiredness, awakens 1- 2x/night for bathroom, and naps daily. Outpatient PSG study to be done, patient agreeable. Patient lives with spouse in a two-story house with first-floor set up, modified independent with ADLs, mobility with walker or cane, and driving to hospitalization. Plan - PT for mobility - OT for ADLs - ST for evaluation - Right MAGDI infarct- BP goal <130/80, on statin and antihypertensive - HTN BP goal <130/80 on catapres - DM type II HgbA1c 9.0%, on lantus, humalog S.C, accuchecks ac/hs - Depression/anxiety on zoloft and valium prn - HLD LDL 155 on statin, fenofibrate - Neuropathy- chronic on lyrica - GI/DVT prophylaxis on protonix/heparin, knee high haylie loydsusannah - [place] - PSG outpatient - Medical management per hospitalist- consult - FLORY on 01/26 BUN/Cr 38/1.72 - Cardiomyopathy EF 35-40% f/u with cardiology at discharge - Analgesics as needed - Bowel protocol - Fall precautions - F/U with PCP, neurology, cardiology ( Dr. Dobbs), outpatient PSG - pending insurance approval for discharge to [facility]
[2019-02-09 11:50] LABS: Bedside Glucose 178 mg/dL (70-110)
--- NOTE | 2019-02-09 12:08 | CASEMGMT ---
Social Work IDT met with patient and for Team Meeting. Discussed patient's progress in therapy. Pt's lean to the left has greatly improved. [employer] will fit TRUE at [facility] which will continue to assist pt. Pt is min asssit walking 270 ft with FWW, completing 2 steps going backwards, SBA to CGA for transfers, SBA to min asssit for UE and LE ADLS. Pt's balance is improving as well a thought processing, and having clear and slow speech. [facility] submitted for precert on this date to admit pt 02/10 - will await outcome. If precert is denied, will submit for LOC for [facility]. 7000 completed. Pt can safely do care transfers - will transport pt. Will continue to follow. ELLEN VanessaW
[2019-02-09 15:31] VITALS: BMI 28.0
--- NOTE | 2019-02-09 15:35 | CASEMGMT ---
Social Work [facility] received precert for pt to discharge 02/10. IDT notified. Pt and notified. Plan: DC to [facility] 02/10. Yissel Champion, NAIL ASSEMBLY MACHINE OPERATOR HEAD OF MOBILE
[2019-02-09 16:36] LABS: Bedside Glucose 135 mg/dL (70-110)
[2019-02-09 18:45] VITALS: BP 151/85; PULSE 68; RESP 18; TEMP 36.4; O2SAT 96
[2019-02-09 21:21] LABS: Bedside Glucose 184 mg/dL (70-110)
[2019-02-09] MEDS: Atorvastatin Calcium 80 MG Tablet PO (21:25)
[2019-02-09 23:24] VITALS: BMI 28.0
--- NOTE | 2019-02-10 03:28 | NURSING ---
REVIEWED AND AGREE WITH HOSPITALITY RECRUITER'S FUNCTIONAL ASSESSMENT OF PT AND HANDOFF CHARTING.
[2019-02-10] MEDS: Pregabalin 50 MG Capsule 100 MG PO ×2 (05:18→13:43)
[2019-02-10 06:16] LABS: Bedside Glucose 170 mg/dL (70-110)
[2019-02-10] MEDS: Heparin Injection (Vial) 5,000 UNIT/ML VIAL 5000 UNIT SC (07:45)
[2019-02-10] MEDS: Insulin Lispro 100 UNIT/ML INSULN.PEN SC ×2 (07:45→11:56)
[2019-02-10] MEDS: Senna/Docusate Sodium 1 Tablet 2 TABLET PO (07:46)
[2019-02-10] MEDS: Insulin Lispro 100 UNIT/ML INSULN.PEN 8 UNIT SC ×2 (07:46→11:57)
[2019-02-10] MEDS: Fenofibrate 48 MG Tablet PO (07:46)
[2019-02-10] MEDS: Sertraline 50 MG Tablet PO (07:46)
[2019-02-10] MEDS: Pantoprazole Sodium 40 MG Tablet PO (07:47)
[2019-02-10] MEDS: cloNIDine HCl 0.1 MG Tablet PO (07:47)
[2019-02-10] MEDS: Clopidogrel Bisulfate 75 MG Tablet PO (07:47)
[2019-02-10 10:00] VITALS: BP 135/84; PULSE 68; RESP 16; TEMP 36.7; O2SAT 98
--- NOTE | 2019-02-10 10:28 | TREXTCA.CO_ITS ---
- Diet 01/13/19 14:55 Diet: Calorie Controlled How many daily calories?: 1800 calorie Diet: Cardiac/Low Cholesterol - Routine Orders/Code Status Enema Type: soap suds Enema Frequency: Daily PRN Suppository Type: Dulcolax 10mg O2 Frequency: PRN Code Status: Full Code - Therapies Weight Bearing: Weight bearing as tolerated Extremity Affected:: Left Upper Physical Therapy: Eval and Treat Occupational Therapy: Eval and Treat Speech Therapy: Eval and Treat - Allergies/Procedures Done in Hospital Allergies/Adverse Reactions: Allergies nifedipine [From Adalat] Allergy (Verified 01/11/19 10:45) Unknown - Type of Care/Length of Stay Estimated LOS: Convalescent Care Less Than 30 days Type of Care Needed: Skilled Rehab Potential: Fair Prognosis: Fair - Additional Orders/Day of Discharge Additional Orders: Monitor accuchecks AC and HS H&P will serve as current which was dated: 01/13/19 Day of Discharge: 02/10/19 - Dietary and Speech Recommendations Dietitian Recommendations/Changes: Recommend diet change to 2000 calorie, cardiac. - Follow Up Care Primary Care Physician: Chema Mckeon DO [Primary Care Provider] - Please follow up with your Primary Care Physician in: call to set up appt Please Follow Up With: Cardiology Dr. Dobbs - [phone] When: call to set up appt Please Follow Up With: Neurology ([facility]) Ramila Roman OUTSOLE PARAFFINER - [phone] or [phone] When: call to set up appt Please Follow Up With: Outpatient PSG - [phone] When: call to set up appt
--- NOTE | 2019-02-10 10:54 | CASEMGMT ---
Social Work PHQ-9 completed and stroke support and counseling resources provided. Pt will have SW follow at [facility]. ELLEN VanessaW
--- NOTE | 2019-02-10 10:55 | DS.PCM_ITS ---
Rehab Discharge Summary DATE OF ADMISSION: 01/13/19 DATE OF DISCHARGE: 02/10/19 - Rehab Diagnosis Debility secondary to right MAGDI infarct - Physical Exam Vitals/I&O's: Vital Signs Temp Pulse Resp BP Pulse Ox 98.1 F 68 16 135/84 H 98 02/10/19 10:00 02/10/19 10:00 02/10/19 10:00 02/10/19 10:00 02/10/19 10:00 Oxygen Delivery Method Room Air Weight: 95.9 kg Body Mass Index (BMI) 28.0 Finger Stick Blood Glucose 122 Intake and Output for Last 24 Hours 02/08/19 02/09/19 02/10/19 23:59 23:59 23:59 Intake Total 880 / 880 1120 / 1120 480 / 480 Balance 880 / 880 1120 / 1120 480 / 480 General: Alert, Oriented x3, Cooperative HEENT: Atraumatic, PERRLA, EOMI Oral: Moist Mucosa Neck: Supple, No JVD Lungs: Clear to auscultation, Normal air movement Cardiovascular: Regular rate, Regular Rhythm Abdomen: Bowel Sounds Present, Soft, Non Tender Extremities: No clubbing, No cyanosis, No edema Neurological: Cranial nerves II-XII grossly intact, Deep Tendon Reflexes 2+/4 and Symmetrical, - - Motor strength RUE/RLE 5/5, LUE/LLE 4/5 Sensation intact from vivas to bilateral feet with tactile Psych/Mental Status: Normal Affect, Appropriate, Alert and oriented to time, place, person, mood and affect Laboratory Results 02/09/19 11:03: POC Glucose 178 H 02/09/19 16:26: POC Glucose 135 H 02/09/19 21:16: POC Glucose 184 H 02/10/19 06:10: POC Glucose 170 H Current Medications Acetaminophen (Tylenol) 650 mg PO Q6H PRN PRN PRN Reason: Mild Pain (0-3/10)/Headache Last Admin: 02/06/19 22:19 Dose: 650 mg Documented by: Atorvastatin Calcium (Lipitor) 80 mg PO QHS [facility] Last Admin: 02/09/19 21:25 Dose: 80 mg Documented by: Bisacodyl (Dulcolax) 10 mg RECTAL .PRN X 1 PRN PRN Reason: Constipation Clonidine (Catapres) 0.1 mg PO BID [facility] Last Admin: 02/10/19 07:47 Dose: 0.1 mg Documented by: Clopidogrel Bisulfate (Plavix) 75 mg PO DAILY [facility] Last Admin: 02/10/19 07:47 Dose: 75 mg Documented by: Diazepam (Valium) 5 mg PO BID PRN PRN PRN Reason: ANXIETY Last Admin: 02/06/19 23:10 Dose: 5 mg Documented by: Fenofibrate (Tricor) 48 mg PO DAILY [facility] Last Admin: 02/10/19 07:46 Dose: 48 mg Documented by: Heparin Sodium (Porcine) (Heparin Na) 5,000 unit SC BID [facility] Last Admin: 02/10/19 07:45 Dose: 5,000 unit Documented by: Insulin Glargine (Lantus (Bk)) 45 units SC DAILY@1999 [facility] Last Admin: 02/09/19 21:23 Dose: 45 units Documented by: Insulin Human Lispro (Humalog Kwikpen (Bk)) 0 unit SC ACHS [facility]; Protocol Last Admin: 02/10/19 07:45 Dose: 1 u Documented by: Insulin Human Lispro (Humalog Kwikpen (Bk)) 8 unit SC TIDAC [facility] Last Admin: 02/10/19 07:46 Dose: 8 u Documented by: Magnesium Hydroxide (Milk Of Magnesia) 30 ml PO .PRN X 1 PRN PRN Reason: Constipation Ondansetron HCl (Zofran) 8 mg PO Q8H PRN PRN PRN Reason: nausea, emesis Last Admin: 02/06/19 23:15 Dose: 8 mg Documented by: Pantoprazole Sodium (Protonix) 40 mg PO DAILY [facility] Last Admin: 02/10/19 07:47 Dose: 40 mg Documented by: Pregabalin (Lyrica) 100 mg PO TID [facility] Last Admin: 02/10/19 05:18 Dose: 100 mg Documented by: Senna/Docusate Sodium (Senokot-S, Thalia-Colace) 2 tablet PO BID [facility] Last Admin: 02/10/19 07:46 Dose: 1 tablet Documented by: Sertraline HCl (Zoloft) 50 mg PO DAILY [facility] Last Admin: 02/10/19 07:46 Dose: 50 mg Documented by: Home Medications: Medications to take at Discharge Acetaminophen [Tylenol Tablet] 650 mg PO Q6H PRN PRN tab 02/10/19 Atorvastatin Calcium [Lipitor] 80 mg PO QHS tab 02/10/19 Clonidine HCl [Catapres] 0.1 mg PO BID tab 02/10/19 Clopidogrel Bisulfate [Plavix] 75 mg PO DAILY tab 02/10/19 Fenofibrate [Tricor] 48 mg PO DAILY tab 02/10/19 Heparin Injection (Vial) [Heparin Na] 5,000 unit SUBCUT BID vial 02/10/19 Insulin Glargine [Lantus SoloStar Pen] 45 units SUBCUT DAILY@1999 pen 02/10/19 Insulin Lispro [Humalog KwikPen] 8 unit SUBCUT TIDAC insuln.pen 02/10/19 Insulin Lispro [Humalog KwikPen] See Protocol SUBCUT ACHS insuln.pen 02/10/19 Pantoprazole Sodium [Protonix] 40 mg PO DAILY tab 02/10/19 Pregabalin [Lyrica] 100 mg PO TID #90 cap 02/10/19 Senna/Docusate Sodium [Senokot-S] 2 tab PO BID tab 02/10/19 Sertraline HCl [Zoloft] 50 mg PO DAILY tab 02/10/19 Following Prescrptions Were Given to Patient: Pregabalin [Lyrica] 100 mg PO TID #90 cap Prescription Printed Primary Care Physician: Chema Mckeon DO [Primary Care Provider] - Please follow up with your Primary Care Physician in: call to set up appt Please Follow Up With: Cardiology Dr. Dobbs - [phone] When: call to set up appt Please Follow Up With: Neurology ([facility]) Ramila Roman REFORESTATION WORKER - [phone] or [phone] When: call to set up appt Please Follow Up With: Outpatient PSG - [phone] When: call to set up appt Rehab Course The patient is a 58 year old M with PMH of HTN, DM type II, anxiety, depression admitted to 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 On 01/11/2019, patient presented to [facility] due to syncopal episode and left leg weakness. Patient stated he was sitting up in his recliner and when he awoke he was laying on the floor, voiced hitting head. CT of head showed no acute findings. MRI brain without contrast showed acute or subacute infarct right MAGDI, without hemorrhage. 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 MRA of neck showed normal bilateral cervical carotid and vertebral arteries. Echocardiogram showed EF of 35 to 40%, stage I diastolic dysfunction, posterior?basal severely hypokinetic, and inferior basal severely hypokinetic, unable to estimate RV systolic pressure due to insufficient tricuspid regurgitant envelope. LDL 155, HgbA1c 9.0%. Developed FLORY: BUN/Cr 27/1.76. Patient on statin, Plavix, and aspirin discontinued. Patient has history of positive snoring, daytime tiredness, awakens 1-2x/night for bathroom, and naps daily. Outpatient PSG study to be done, patient agreeable. Patient lives with spouse in a two-story house with first-floor set up, modified independent with ADLs, mobility with walker or cane, and driving to hospitalization. During IP RU course was uncomplicated. Patient was weaned off of cymbalta and was started on zoloft. Patient to F/U with Dr. Dobbs (cardiology), [facility], and was ordered outpatient PSG study at [facility] and will need to be scheduled. Purple will fit KA at [facility]. Patient will be discharged to [facility] shelter facility on 02/10/19 for further therapies. Meaningful Use Info Meaningful Use Diagnoses (Choose all that apply): Ischemic CVA - CVA Therapy Assessed for PT,OT and/or ST?: Yes - Ischemic Stroke Antithrombotic order at d/c?: Yes Dx of Atrial fib/flutter?: No Statins at discharge?: Yes Primary Dx Acute Ischemic CVA?: Yes IV tPA ordered during stay?: No Reason IV t-PA not ordered: Treatment not Indicated
[2019-02-10 11:11] LABS: Bedside Glucose 190 mg/dL (70-110)
[2019-02-10 15:55] VITALS: BP 155/77; PULSE 66; RESP 18; TEMP 36.7; O2SAT 97
[2019-02-10 16:04] VITALS: BMI 28.0
== END 2019-02-10 16:00 | disposition skilled nursing facility (03) | DRG 57 ==
PROVIDERS: Internal Medicine; Nurse Practitioner Family; Admitting Provider Psychiatry & Neurology Neurology; Family Provider Family Medicine; PCP Family Medicine; Referring Provider Psychiatry & Neurology Neurology; Visit Provider Internal Medicine
DX: I69.354 Hemiplegia and hemiparesis following cerebral infarction affecting left non-dominant side (principal); I50.42 Chronic combined systolic (congestive) and diastolic (congestive) heart failure; I13.0 Hypertensive heart and chronic kidney disease with heart failure and stage 1 through stage 4 chronic kidney disease, or unspecified chronic kidney disease; E11.40 Type 2 diabetes mellitus with diabetic neuropathy, unspecified; F41.8 Other specified anxiety disorders; Z91.19 Patient's noncompliance with other medical treatment and regimen; F17.220 Nicotine dependence, chewing tobacco, uncomplicated; I69.328 Other speech and language deficits following cerebral infarction; E78.5 Hyperlipidemia, unspecified; G47.33 Obstructive sleep apnea (adult) (pediatric); E11.22 Type 2 diabetes mellitus with diabetic chronic kidney disease; N18.9 Chronic kidney disease, unspecified; R29.810 Facial weakness; M21.372 Foot drop, left foot
CPT/HCPCS: 36415; 73120; 80048; 82962; 85025; 92507; 92523; 97110; 97112; 97116; 97162; 97166; 97530; 97535; 97542; 97802; 99406

== ENCOUNTER 2019-03-05 09:50 | Inpatient (IN) | payer OTHER, MEDICARE, MEDICAID, SELFPAY ==
[2019-02-27 15:00] VITALS: BMI 30.4
[2019-03-05] VITALS (27 sets, daily range): BP systolic 66–177; BP diastolic 47–119; PULSE 12–125; RESP 12–347; TEMP 35.6–36.7; O2SAT 25–100; BMI 29.0; BMI 26.4
--- NOTE | 2019-03-05 09:55 | EKG12_ITS ---
Test Reason : CP Blood Pressure : / mmHG Vent. Rate : 117 BPM Atrial Rate : 117 BPM P-R Int : 144 ms QRS Dur : 112 ms QT Int : 328 ms P-R-T Axes : 061 089 144 degrees QTc Int : 457 ms Sinus tachycardia Previous Inferior Infarct ST depression with lateral ischemia Consider right ventricular involvement in acute inferior infarct Abnormal ECG Confirmed by EDVIN TINEO, ZAK ([id number]), publication editor SWETHA LAW ([id number]) on 03/08/2019 11:52:26 AM Referred By: Cortez Pearce Confirmed By:ZAK PARDO MD
[2019-03-05] MEDS: TICAGRELOR 90 MG TABLET 180 MG PO (10:00)
[2019-03-05] MEDS: Heparin Injection (Vial) 5,000 UNIT/ML VIAL 4000 UNIT IV (10:00)
--- NOTE | 2019-03-05 10:00 | RAD_ITS ---
STUDY: X-RAY CHEST REASON FOR EXAM: Male, 58 years old. stemi TECHNIQUE: Single AP portable view of the chest. COMPARISON: 01/11/2019 FINDINGS: There is a pattern of mild increase in interstitial markings focal thickening of the medial aspect of the right minor fissure. Normal size heart. Normal mediastinum and ella. Normal visualized pulmonary arteries. There is atherosclerotic calcification of the aortic arch with tortuosity. Normal visualized thoracic spine. Normal visualized ribs, clavicles, and shoulders. There is no demonstrated abnormality of the visualized soft tissue structures of the upper abdomen. RAD/Chest 1 View (Portable) IMPRESSION: Findings suspicious for trace edema. Electronically Signed: Macarena Richards MD at 10:35 EST Tel , Service support ,
[2019-03-05] MEDS: Ondansetron 4 MG/2 ML Vial IV (10:02)
--- NOTE | 2019-03-05 10:02 | ED.VISSUMM ---
- ER Visit Summary Date of Service: 03/05/19 Chief Complaint: Chest pain History of Present Illness: The patient is a 58 M with chest pain that started this morning when he woke up. It feels like pressure. Associated with shortness of breath and sweats. Patient denies any history of this in the past. Denies any history of coronary disease. He did have a stroke 2 months ago. No deficits. He has a history of diabetes, hypertension, hyperlipidemia, and smoking. He takes aspirin and Plavix. Denies other blood thinner use. Denies any problems with bleeding. Physical Examination: Hypertensive and tachycardic. Diaphoretic. Heart regular. Lungs clear. Abdomen soft. Extremities show trace and symmetric edema. Moving all extremities. Cranial nerves grossly intact. Alert and oriented. Test Results: EKG shows inferior elevation with reciprocal changes. Other testing is pending. Emergency Department Course and Treatment: EKG transmitted by EMS at 9:35 AM was concerning but did not meet STEMI criteria. Interventional list was notified. At 9:40 AM, EMS called. They said the patient was having chest pain or shortness of breath. STEMI team was activated. Patient was seen immediately on arrival. We are awaiting the intervention team. He was treated with aspirin by EMS. He received heparin and Brilinta as well as Zofran. He gave consent for cath and intervention. Further testing is pending. Will contact the filling operator and hospitalist for further care. Treatment Plan: As above Disposition: Admission Impression: 1. Acute ST segment elevation myocardial infarction This note was generated with [employer] dictation software. It may contain incorrect words, spelling, and punctuation that were not noted in review of the chart prior to signing ED Disposition - Plan for ED Patient: Referrals: Chema Mckeon DO [Primary Care Provider] -
--- NOTE | 2019-03-05 10:06 | ED.RN ---
PT VOMITED AFTER BRILINTA WAS GIVEN, ZOFRAN AND REPEAT DOSE OF BRILINTA GIVEN. PT HAS BILATERAL LOWER EXT +2 PITTING EDEMA. CRACKLES IN LUNGS. SOB.
[2019-03-05 10:37] LABS: Absolute Lymphocyte Count 1.87 X10^3/uL (0.83-4.51); Absolute Neutrophil Count 9.3 X10^3/uL (2.0-7.7); Basophil# 0.09 X10^3/uL; Basophil% 0.7 % (0-1); Eosinophil# 0.38 X10^3/uL; Hematocrit 45.2 % (40-54); Hemoglobin 15.3 g/dL (13.0-16.5); Lymphocyte # 1.87 X10^3/ul (4.0); Lymphocyte % 14.7 % (19-41); Mean Corp Hgb Conc 33.8 g/dL (32-36); Mean Corpuscular Hgb 29.8 pg (27.0-32.0); Mean Corpuscular Volume 88.1 fL (80-94); Mean Platelet Vol. 12.9 fl (6.2-12.0); Monocyte# 0.79 X10^3/uL; Monocyte% 6.2 % (0-10); NRBC Flagged by Analyzer 0 % (0-5); Neutrophil # 9.33 X10^3/uL (2.7-7.7); Neutrophil % 73.4 % (47-70); Platelet Count 187 K/mm3 (150-450); RBC Distribution Width CV 13.2 % (11.6-14.6); RBC Distribution Width SD 42.5 fl (35.1-43.9); Red Blood Count 5.13 M/mm3 (4.6-6.2); White Blood Count 12.7 K/mm3 (4.4-11.0)
[2019-03-05 10:44] LABS: International Normalized Ratio 1.1; Prothrombin Time (Protime)PT. 14.3 SECONDS (11.7-14.9)
[2019-03-05 10:45] LABS: Partial Thromboplast Time 28.3 Seconds (24.1-36.2)
[2019-03-05 10:52] LABS: Anion Gap 7 (5-15); BUN 30 mg/dL (7-18); BUN/Creat Ratio 16.9 RATIO (10-20); Calcium,Total 9.2 mg/dL (8.5-10.1); Chloride 101 mmol/L (98-107); Creatinine, Serum 1.77 mg/dL (0.70-1.30); EST Glomerular Filtration Rate 42 mL/min (>60); Est Glom Filt Rate - Afr Amer 51 mL/min (>60); Glucose 316 mg/dL (74-106); Potassium 3.8 mmol/L (3.5-5.1); Sodium Level 139 mmol/L (136-145)
--- NOTE | 2019-03-05 11:50 | CPS ---
DR. VERNON VERBALLY CONFIRMED ETT PLACEMENT.
--- NOTE | 2019-03-05 12:05 | EKG12_ITS ---
Test Reason : Blood Pressure : / mmHG Vent. Rate : 087 BPM Atrial Rate : 087 BPM P-R Int : 184 ms QRS Dur : 120 ms QT Int : 388 ms P-R-T Axes : 060 069 128 degrees QTc Int : 466 ms Normal sinus rhythm Inferior infarct , possibly acute Marked ST abnormality, possible anterolateral subendocardial injury * ACUTE KS Consider right ventricular involvement in acute inferior infarct Confirmed by EDVIN TINEO, ZAK ([id number]), mapping editor SWETHA LAW ([id number]) on 03/14/2019 3:04:59 PM Referred By: Cortez Pearce Confirmed By:ZAK PARDO MD
--- NOTE | 2019-03-05 12:05 | EKG12_ITS ---
Test Reason : AM EKG Blood Pressure : / mmHG Vent. Rate : 070 BPM Atrial Rate : 070 BPM P-R Int : 148 ms QRS Dur : 108 ms QT Int : 532 ms P-R-T Axes : 062 028 130 degrees QTc Int : 574 ms Normal sinus rhythm Inferior infarct , age undetermined ST & T wave abnormality, consider anterolateral ischemia Prolonged QT Confirmed by EDVIN TINEO, ZAK ([id number]), editorial writer SWETHA LAW ([id number]) on 03/14/2019 3:04:37 PM Referred By: Cortez Pearce Confirmed By:ZAK PARDO MD
--- NOTE | 2019-03-05 12:26 | CL.I_ITS ---
Patient Name: NELSY ROGERS ERWI Study Date: 03/05/2019 Performing: Cortez Pearce MD Ht: 70 inches 177.8 cm : 1960 Wt: 212 lbs 96.16 kg Age: 58 Gender: male BSA: 2.14 PROCEDURE(S) PERFORMED [id number], ESTEBAN AND/OR PTCA, ARTERY OR GRAFT, SINGLE VESSEL CLINICAL PROFILE AND CO-MORBIDITIES Patient presents with STEMI for emergent cardiac cath. Indications: ACS <= 24 hrs, Suspected CAD, LV Dysfunction Heart Failure: NYHA Class: 1, Newly Diagnosed: Yes, Heart Failure Type: Systolic Stress/Imaging Stress/Image Study Performed: No Angina Classification Anginal Classification w/in 2 Weeks: No symptoms CAD Presentations: STEMI. Symptom onset Date/Time: 03/05/2019 Time Not Available Comorbidities/Risk Factors: Hypertension Dyslipidemia Prior CHF Diabetes Mellitus: Diabetes Therapy: Oral CONCLUSIONS Segmented LV systolic dysfunction- Severe LVEF: by LV gram 15 % Elevated Left Ventricular End Diastolic Pressure Triple vessel CAD of the LM, LAD, LCX RCA Successful PTCA/ESTEBAN of mid RCA with a 2.25 x 38 Promus Synergy, post dilated throughout with a 2.5 x 8 NC balloon; 99%-->0%, no dissection. Successful PTCA/ESTEBAN proximal RCA with a 2.5 x 16 Promus Synergy, post dilated with a 2.5 x 8 NC ballo on; 75%-->0%, no dissection. Successful PTCA/ESTEBAN distal RCA with transition into PDA utilizing a 2.25 x 38 Promus Synergy, followe d upstream with a 2.25 x 16 Promus Synergy, post dilated with a 2.5 x 8 NC in the 16mm stented area o nly; 75%-->0%, no dissection or perforation. RECOMMENDATIONS Referred for immediate PCI Highly recommend quitting all tobacco products Follow up with primary sample builder Risk factor modification ASA Indefinitley Plavix for at least 12 months Routine post interventional care Refer for Outpatient Cardiac Rehab Manual sheath removal per protocol Follow up with Dr. Dobbs Emergent intubation performed after balloon inflation and re-establishment of flow to RCA given pt's cardiogenic shock and impending respiratory failure. Emergent IABP placed for cardiogenic shock and severe LV dysfunction superimposed on acute true poste rior wall CA. Would consider either high risk PCI of LM/LAD/LCX vs medical management given pt's recent CVA, poor m obility and LV dysfunction. No additional PCI attempted of left system given its complexity, calcifi caiton, severe LV dysfunction and CRI. DESCRIPTION OF PROCEDURE The patient arrived to the procedure lab. The risks and benefits of the procedure as well as a full d escription of our services here and lack of surgical backup were fully explained to the patient and/o r their significant other prior to the catheterization. The Timeout was completed, verifying the elyse ect patient and procedure. The patient's procedural site was prepped and draped in the usual fashion. Local anesthetic was given subcutaneously to right groin region with Lidocaine 2%. Using a modified Seldinger technique, arterial access was obtained via the right femoral artery, a 4Fr sheath was inse rted. Left Coronary Artery selective angiography was performed in multiple views using a 4 Fr. JL5 c atheter. Left Ventriculography was performed in MAHONEY projection using a 4 Fr. Pigtail catheter. LV to AO pullback pressures were then recordedArrow 40cc 7.5F UltraFlex IABP - Qty: 1 Each Part #: [id number], A 7Fr 40cc IABP catheter was inserted into the right femoral artery, IABP settings: 1:1, IABP Augumented BP: 135 mmHg Systemic BP: 107 mmHg, The IABP catheter and sheath were secured in plac e HSII Guide catheter was inserted and engaged into the RCA. Runthrough Guide wire was advanced to the RCA. 2x12 Emerge Balloon catheter was inserted. Balloon catheter was advanced across lesion in th e right coronary, mid. PTCA balloon inflated at 6 atms for 6 secs. PTCA balloon inflated at 6 atms fo r 6 secs. PTCA balloon inflated at 6 atms for 5 secs. PTCA balloon inflated at 6 atms for 7 secs. PTC A balloon inflated at 6 atms for 8 secs. PTCA balloon inflated at 8 atms for 5 secs. Angiogram perfor med post balloon dilatation. 2.25x38 Synergy Drug Eluting stent was inserted. Drug Eluting stent was advanced across the lesion in the right coronary, mid. 2.5x16 Synergy Drug Eluting stent was inserted . Drug Eluting stent was advanced across the lesion in the right coronary, proximal. 2.5x8 NC Emerge Balloon catheter was inserted. Balloon catheter was advanced across lesion in the right coronary, mid . Balloon catheter was repositioned to additional lesion in the right coronary, proximal. Angiogram performed post balloon dilatation. 2x12 Emerge Balloon catheter was inserted. Balloon joseph ter was advanced across lesion in the posterior descending, distal. PTCA balloon inflated at 6 atms f or 9 secs. PTCA balloon inflated at 8 atms for 12 secs. PTCA balloon inflated at 8 atms for 8 secs. P TCA balloon inflated at 8 atms for 8 secs. 2.5x8 NC Emerge Balloon catheter was inserted. Balloon cat heter was advanced across lesion in the right coronary, mid. PTCA balloon inflated at 10 atms for 8 s ecs. PTCA balloon inflated at 12 atms for 6 secs. PTCA balloon inflated at 12 atms for 6 secs. PTCA b alloon inflated at 12 atms for 8 secs. PTCA balloon inflated at 12 atms for 6 secs. 2.25x38 Synergy D rug Eluting stent was inserted. Drug Eluting stent was advanced across the lesion in the posterior de scending, distal. Drug Eluting stent was removed intact, failed to cross lesion BMW Guide wire was in serted as a marj wire 2.25x38 Synergy Drug Eluting stent was inserted. Drug Eluting stent was advanced across the lesion in the posterior descending, distal. Angiogram performed post stent de ployment. 2.25x16 Synergy Drug Eluting stent was advanced across the lesion in the posterior descendi ng, distal. Drug Eluting stent was removed intact, failed to cross lesion BMW Guide wire was advanced to the Right PDA. 2.25x16 Synergy Drug Eluting stent was advanced across the lesion in the posterior descending, distal. 2.5x8 NC Emerge Balloon catheter was inserted. Balloon catheter was advanced acr oss lesion in the right coronary, distal. PTCA balloon inflated at 12 atms for 8 secs. PTCA balloon i nflated at 12 atms for 8 secs. PTCA balloon inflated at 12 atms for 8 secs. PTCA balloon inflated at 14 atms for 10 secs. Balloon catheter was repositioned to additional lesion in the right coronary, pr oximal. PTCA balloon inflated at 14 atms for 8 secs. PTCA balloon inflated at 16 atms for 10 secs. Ar terial sheath was exchanged for a Balloon pump sheath CORONARY ANGIOGRAPHY DOMINANCE: Right Dominant LEFT HEART ASSESSMENT Left Ventricular Ejection Fraction: by LV Gram 15 % Depressed Left Ventricular systolic function LVEDP: 23 mmHg Elevated Left Ventricular End Diastolic Pressure Anterior Hypokinesis - Severe. Inferior Mid Akinesis LEFT MAIN: Moderate calcification, 50 % Stenosis distal at bifurcation of LAD and LCX LEFT ANTERIOR DESCENDING ARTERY: PROX LAD: Moderate calcification, 75 % Stenosis MID LAD: Mild calcification, 75 % Stenosis DIAGONAL 1: Proximal - 75 % Stenosis CIRCUMFLEX ARTERY: OSTIAL CIRC: 75 % Stenosis MID CIRC: 75 % Stenosis OM 1: Mid - 70 % Stenosis RIGHT CORONARY ARTERY: MID RCA: 99 % Stenosis COLLATERAL FLOW: Collateral flow from Right to Left INTERVENTION INFORMATION LESION SITE: RCA (Mid) Lesion Complexity: High/C, lesion at bifurcation: No, thrombus present: Yes, lesion length: 38 mm, cu lprit lesion: Yes Pre Stenosis: 99 % Pre intervention JOY flow: 2 PROCEDURE: Drug Eluting Stent with pre and post dilatation Post Stenosis: 0 % Post intervention JOY flow: 3 Lesion Devices: gestigon 6 Fr HSII 100cm Guide Catheter Bam Sci EMERGE MR 2.00x12 BALLOON Bam Sci Synergy MR ESTEBAN 2.25x38 Bam Sci NC EMERGE MR 2.50x08 BALLOON LESION SITE: RCA (Proximal) Lesion Complexity: High/C, lesion at bifurcation: No, thrombus present: No, lesion length: 16 mm, cul prit lesion: No Pre Stenosis: 75 % Pre intervention JOY flow: 2 PROCEDURE: Drug Eluting Stent with pre and post dilatation Post Stenosis: 0 % Post intervention JOY flow: 3 Lesion Devices: Bam Sci Synergy MR ESTEBAN 2.50x16 Bam Sci NC EMERGE MR 2.50x08 BALLOON LESION SITE: RT PDA (Distal) Lesion Complexity: High/C, lesion at bifurcation: No, thrombus present: No, lesion length: 54 mm, cul prit lesion: No Pre Stenosis: 75 % Pre intervention JOY flow: 2 PROCEDURE: Drug Eluting Stent with pre and post dilatation 0 % Post intervention JOY flow: 3 Lesion Devices: Bam Sci EMERGE MR 2.00x12 BALLOON Bam Sci NC EMERGE MR 2.50x08 BALLOON Bam Sci Synergy MR ESTEBAN 2.25x38 Peralta .014 BMW Sheldon Straight 190cm Bma Sci Synergy MR ESTEBAN 2.25x16 COMPLICATIONS No Complications PROCEDURE MEDICATIONS Succinylcholine 125 mg IV Propofol 40 mg IV Propofol 20 mg IV Fentanyl 25 mcg IV Oxygen: 6 L/min via nasal cannula Oxygen: 100 % FiO2 via ventilator. See Resp Record for Settings Etomidate 100mg ^FreeText^ 03/05/2019 10:40:50 Lasix 40 mg IV 03/05/2019 10:32:26 Heparin 6000 unit(s) IV 03/05/2019 10:38:19 Heparin 4000 unit(s) IV 03/05/2019 11:11:23 Nitro Tab 0.4 mg PO 03/05/2019 10:30:44 Metoprolol 5 mg 03/05/2019 10:40:24 Nitro 200 mcg IC 03/05/2019 10:57:32 Nitro 200 mcg IC 03/05/2019 11:04:37 Nitro 200 mcg IC 03/05/2019 11:35:39 SUMMARY OF HEMODYNAMIC DATA Time AIR REST ECG 10:19:16 AO 124/77 (90) SA 10:32:44 AO 161/107 (132) 10:39:45 LV 117/4, 22 11:40:03 LV 115/1, 21 11:40:09 LVp 119/1, 23 11:40:20 AOp 122/71 (90) 11:40:25 Signed By Cortez Pearce MD On 03/05/2019 12:25:17 Cortez Pearce MD
[2019-03-05] MEDS: Propofol 10MG/Ml 1,000 MG/100 ML Bottle 11.2 MG CONT INF (12:30)
[2019-03-05] MEDS: HEPARIN/D5w 25,000 UNITS 25,000 UNITS/250 ML IV.SOLN. 10 UNITS IV (13:01)
--- NOTE | 2019-03-05 13:03 | ECHOCS_ITS ---
Reason For Study: S/P AR Procedure This was a 2D Doppler, Color Flow transthoracic echocardiogram. Contrast injection was performed. Exam performed portable in ICU/CCU. Left Ventricle Moderately dilated left ventricle. The estimated ejection fraction is 15-20 %. Stage 1 diastolic dysfunction. Posterior-Basal: Severely hypokinetic. Infero-Basal: Mildly hypokinetic. Mid- anteroseptal : Severely Hypokinetic. Right Ventricle Normal size and thickness. Normal systolic function. Atria Normal left atrium. Normal right atrium. Normal atrial septum. Mitral Valve The mitral valve is structurally normal. No prolapse or stenosis seen. Trivial mitral valve insufficiency. Tricuspid Valve Normal tricuspid valve. Trivial tricuspid valve insufficiency. Right ventricular systolic pressure estimated to be 25 mmHg. Aortic Valve Normal aortic valve. Trisinus/trileaflet aortic valve. Pulmonic Valve Normal pulmonic valve. Great Vessels Normal aortic root. Normal arch. Normal inferior vena cava. Inferior vena cava collapse with sniff. Pericardium/Pleural No pericardial effusion. Medication Diluted definity 3ml given slow IV push to enhance endocardial definition. MMode/2D Measurements & Calculations LVIDd: 5.5 cm IVSd: 1.5 cm Ao root diam: 3.0 cm LVIDs: 4.8 cm LVPWd: 0.76 cm RVDd: 2.3 cm FS: 12.7 % LAV(MOD-bp): 49.4 ml LA A4 area: 15.6 cm2 LA dimension(2D): 4.3 cm LAV(MOD-bp) Indexed: 23.7 ml/m2 LAV(MOD-sp2): 62.3 ml LAV(MOD-sp4): 39.3 ml RA A4 area: 11.4 cm2 Doppler Measurements & Calculations MV E max kulwinder: 32.8 cm/sec Lat Peak E' Kulwinder: 6.6 cm/sec Med Peak E' Kulwinder: 4.4 cm/sec MV A max kulwinder: 71.3 cm/sec E/E' lat: 4.9 E/E' med: 7.5 MV E/A: 0.46 Ao V2 max: 95.8 cm/sec LV V1 max: 91.0 cm/sec PA V2 max: 81.5 cm/sec Ao max P.7 mmHg LV V1 max P.3 mmHg Ao V2 mean: 64.5 cm/sec Ao mean P.8 mmHg Ao V2 VTI: 17.0 cm TR max kulwinder: 224.7 cm/sec TR max P.2 mmHg Interpretation Summary Moderately dilated left ventricle. The estimated ejection fraction is 15-20 %. Stage 1 diastolic dysfunction. Posterior-Basal: Severely hypokinetic. Infero-Basal: Mildly hypokinetic Mid-anteroseptal : Severely Hypokinetic. Trivial mitral valve insufficiency. Trivial tricuspid valve insufficiency. Right ventricular systolic pressure estimated to be 25 mmHg. Compared to echo report dated 01/12/2018, LV function has gone from 35% to 15-20% with new anterior hypokinesis, and inferior/posterior hypokinesis is now severe. Ordering Physician: Cortez Pearec Referring Physician: Cortez Pearce Performed By: Mame Beard RDCS, DEEP
--- NOTE | 2019-03-05 13:25 | RAD_ITS ---
STUDY: X-RAY CHEST REASON FOR EXAM: Male, 58 years old. Endotracheal tube insertion TECHNIQUE: AP COMPARISON: Earlier today FINDINGS: Endotracheal tube is identified over the tracheal air column with tip terminating 4 cm above the tray. Enteric tube extends into the stomach. Linear density projecting over the thoracic aorta (terminating at the aortic arch) likely represents an intra-aortic balloon pump. Increasing bilateral perihilar attenuation and groundglass opacities predominantly in the right lung base. There is no demonstrated pleural abnormality. Normal size heart. Normal mediastinum and ella. Normal visualized pulmonary arteries. There is atherosclerotic calcification of the aortic arch with tortuosity. No acute bony process. There is no demonstrated abnormality of the visualized soft tissue structures of the upper abdomen. RAD/CXR for Line Placement IMPRESSION: 1. Endotracheal and enteric tubes, as above. 2. Intra-aortic balloon pump. 3. Worsening pulmonary edema, particularly the right lung base. Electronically Signed: Jimmie Cabrera MD (Brooks) at 14:23 EST , Service support ,
--- NOTE | 2019-03-05 13:33 | RAD_ITS ---
STUDY: X-RAY - ABDOMEN/PELVIS REASON FOR EXAM: Male, 58 years old. Enteric tube insertion TECHNIQUE: Single AP view of the abdomen / pelvis. COMPARISON: Chest x-ray of 03/05/2019 FINDINGS: Enteric tube is seen extending to the upper stomach. Air distention of the stomach noted. There is an unremarkable bowel gas pattern. There is no demonstrated free abdominal air. The visualized liver, spleen and kidneys are grossly normal in size and morphology. Normal soft tissue structures. Operative changes of the lumbosacral spine. RAD/Abdomen Single View (Portable) IMPRESSION: 1. Enteric tube extends into the upper stomach. Air distended stomach. Electronically Signed: Jimmie Cabrera MD (Brooks) at 14:22 EST , Service support ,
[2019-03-05 13:45] LABS: ACT Activated Clotting Time 186 sec (74-137)
[2019-03-05 13:45] LABS: Base Excess 2 mmol/L (-2 to +2); Bicarbonate 29.9 mmol/L (22-26); Blood Gas Specimen Type ART; FI02 100; Mode A-C; O2 Delivery Device Vent; PEEP 5; PO2 359 mmHG (75-100); RR 12; SITE OTHER; SO2 100 % (95-99); Total Carbon Dioxide 32 mmol/L; Vt 500; pCO2 75.5 mmHg (35-45); pH 7.21 (7.35-7.45)
[2019-03-05 13:45] LABS: ACT Activated Clotting Time 307 sec (74-137)
[2019-03-05 13:45] LABS: Base Excess 2 mmol/L (-2 to +2); Blood Gas Specimen Type ART; PO2 110 mmHG (75-100); SO2 96 % (95-99); Total Carbon Dioxide 32 mmol/L; pCO2 79.4 mmHg (35-45); pH 7.19 (7.35-7.45)
--- NOTE | 2019-03-05 13:55 | CPS ---
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 Hernandez
[2019-03-05] MEDS: fentaNYL drip 100 ML 5 MCG IV (14:30)
[2019-03-05 14:47] LABS: CPK Total, Creatine Kinase 2271 U/L (39-308); Triglycerides 68 mg/dL
--- NOTE | 2019-03-05 15:14 | PCM.HP.STD ---
Problem List (1) Type 2 diabetes mellitus Status: Chronic Qualifiers: Diabetes mellitus halfway insulin use: with halfway use Diabetes mellitus complication status: with other specified complication Qualified Code(s): E11.69 - Type 2 diabetes mellitus with other specified complication; Z79.4 - skilled nursing (current) use of insulin (2) Syncope and collapse Status: Acute (3) CVA (cerebral vascular accident) Status: Chronic Qualifiers: CVA mechanism: unspecified Qualified Code(s): I63.9 - Cerebral infarction, unspecified (4) Hypertension Status: Chronic Qualifiers: Hypertension type: essential hypertension Qualified Code(s): I10 - Essential (primary) hypertension History of Present Illness Date of Admission: 03/05/19 Chief Complaint: Chest pain - 1 day The patient is a 58 year old M with past medical history of hypertension, hyperlipidemia, recent CVA in January 2019 comes in with complaints of chest pain. Patient was recently discharged from the long-term and has been at home for couple of weeks. He had complained of chest pain with diaphoresis and nausea and had called his at work. His asked him to call the EMS. Admitting EKG showed segment depression in lead I, II, V2 V3 V4 V5 V6 [address] segment elevation in Lead III and aVF. His vitals in the ED showed temperature 97F, heart rate 125, blood pressure 167/96, respiratory rate was 20, patient was saturating 98% on a nonrebreather. WBC count is 12.7, hemoglobin is 15.2, platelet count 187, INR is 1.1, potassium is 2.8, sodium 139, chloride 101, bicarbonate 31, BUN 30, creatinine is 1.77, CK is 2271, troponin was 0.124, Repeat is 61. Chest x-ray showed increased interstitial markings suspicious for edema. Patient had a cardiac cath emergently which shows severe LV systolic dysfunction with EF of 15% by the left ventriculogram, patient had triple-vessel CAD of the left main, LAD, circumflex and RCA. He underwent successful PTCA/ESTEBAN of the mid RCA, proximal RCA, distal RCA with 4 stents placed. There is also a 50% stenosis of left main, 75 stenosis of proximal LAD, 75% stenosis of mid LAD, 75% stenosis of diagonal. Patient was seen and examined at bedside. He was intubated and sedated. Past Medical History Past Medical History (Chronic Problems): Chronic Problems (Last Reviewed 02/27/19 @ 15:09 by Rupa Valentine) Hypertension (Chronic) Type 2 diabetes mellitus (Chronic) Secondary hypertension (Chronic) CVA (cerebral vascular accident) (Chronic) Noncompliance with diabetes treatment (Chronic) Medical History: Medical History (Last Reviewed 02/27/19 @ 15:09 by Rupa Valentine) Type 2 diabetes mellitus (Chronic) E11.9 Secondary hypertension (Chronic) I15.9 Syncope and collapse (Acute) R55 CVA (cerebral vascular accident) (Chronic) I63.9 Syncope (Acute) R55 Bradycardia (Acute) R00.1 Noncompliance with diabetes treatment (Chronic) Z91.19 FLORY (acute kidney injury) N17.9 Anxiety F41.9 Back pain M54.9 Depression F32.9 Abdominal pain R10.9 Hematochezia K92.1 Intractable nausea and vomiting R11.2 Nausea R11.0 Nonketotic hyperglycinemia E72.51 Allergies nifedipine [From Adalat] Allergy (Verified 02/27/19 15:01) Unknown Home Medications: Ambulatory Orders Medication Instructions Recorded Atorvastatin Calcium [Lipitor] 80 mg PO QHS tab 02/10/19 Clonidine HCl [Catapres] 0.1 mg PO BID tab 02/10/19 Clopidogrel Bisulfate [Plavix] 75 mg PO DAILY tab 02/10/19 Insulin Glargine [Lantus SoloStar 45 units SUBCUT DAILY@1999 pen 02/10/19 Pen] Insulin Lispro [Humalog KwikPen] 8 unit SUBCUT TIDAC insuln.pen 02/10/19 Pantoprazole Sodium [Protonix] 40 mg PO DAILY tab 02/10/19 Sertraline HCl [Zoloft] 50 mg PO DAILY tab 02/10/19 diazepam 5 mg tablet 5 mg PO BID 02/27/19 duloxetine 60 mg capsule,delayed 60 mg PO DAILY 02/27/19 release fenofibrate micronized 67 mg 67 mg PO DAILY 02/27/19 capsule fenofibric acid (choline) 45 mg 45 mg PO DAILY 02/27/19 capsule,delayed release hydrochlorothiazide 12.5 mg tablet 12.5 mg PO DAILY 02/27/19 lisinopril 20 mg tablet 20 mg PO DAILY 02/27/19 omeprazole 40 mg capsule,delayed 40 mg PO DAILY 02/27/19 release pregabalin 150 mg capsule 150 mg PO BID 02/27/19 sennosides 8.6 mg-docusate sodium 2 tab PO BID PRN tab 02/27/19 50 mg tablet Surgical History: Surgical History (Last Reviewed 02/27/19 @ 15:09 by Rupa Valenitne) History of lumbar fusion Z98.890 History of back surgery Z98.890 History of umbilical hernia repair Z98.890, Z87.19 Surgical History: - - Back Surgery 198906/29/95. He had a hernia repair May 07, 2008 Psychiatric History: Anxiety, Depression - severe Lives: Spouse/ Significant Other Smoking Status: Unknown if ever smoked Tobacco Use: Non-smoker Alcohol: None, Occasional Drugs: None - *Family History Maternal Family History: Family History (Last Reviewed 02/27/19 @ 15:09 by Rupa Valentine) Father Heart disease Son Kidney disease History Items: - - suicide, depression Paternal Family History: Family History (Last Reviewed 02/27/19 @ 15:09 by Rupa Valentine) Father Heart disease Son Kidney disease History Items: Heart Disease, Hypertension, - - CAD; cerebral hemorrhage. Review of Systems Unable to obtain accurate/complete ROS d/t: Pt is intubated on [facility] vent. and sedated VTE Information - Inpt Only VTE Present on Admission: No VTE Pharm Prophylaxis ordered?: Yes - Physical Exam Vitals/I&O's: Vital Signs Temp Pulse Resp BP Pulse Ox 96.7 F L 63 18 123/78 H 94 03/05/19 14:00 03/05/19 14:00 03/05/19 14:00 03/05/19 14:00 03/05/19 14:00 Oxygen Flow Rate (L/min) 15 Oxygen Delivery Method Mechanical Ventilator Weight: 93.2 kg Body Mass Index (BMI) 26.4 Finger Stick Blood Glucose 122 General: - - Intubated, sedated, on mechanical ventilator HEENT: Atraumatic, PERRLA, EOMI, Normocephalic Oral: Moist Mucosa, - - ET tube present Neck: Supple Lungs: Clear to auscultation, Normal air movement Cardiovascular: Regular rate, Regular Rhythm, Normal S1, Normal S2, No murmurs Abdomen: Bowel Sounds Present, Soft, Non Tender, Non-Distended, No Hepato-splenomegaly Extremities: - - Bilateral leg edema +2 Skin: No rashes, No breakdown Musculoskeletal: No Tenderness to Palpation of Joints or Extremities Lymphatic: No Cervical, Supraclavicular, or Inguinal Adenopathy Neurological: Cranial nerves II-XII grossly intact Psych/Mental Status: Normal Affect, Appropriate Laboratory Results 03/05/19 09:55: WBC 12.7 H, RBC 5.13, Hgb 15.3, Hct 45.2, MCV 88.1, MCH 29.8, MCHC 33.8, RDW Std Deviation 42.5, RDW Coeff of Jr 13.2, Plt Count 187, MPV 12.9 H, Immature Gran % (Auto) 2.000 H, Neut % (Auto) 73.4 H, Lymph % (Auto) 14.7 L, [place] % (Auto) 6.2, Eos % (Auto) 3.0, Baso % (Auto) 0.7, Absolute Neuts (auto) 9.3 H, Absolute Lymphs (auto) 1.87, Nucleated RBC % 0 03/05/19 09:55: PT 14.3, INR 1.1, APTT 28.3 03/05/19 09:55: Sodium 139, Potassium 3.8, Chloride 101, Carbon Dioxide 31.0, Anion Gap 7, BUN 30 H, Creatinine 1.77 H, Estim Creat Clear Calc 51.60, Est GFR (MDRD) Af Amer 51 L, Est GFR (MDRD) Non-Af 42 L, BUN/Creatinine Ratio 16.9, Glucose 316 H, Calcium 9.2, Troponin I 0.124 H 03/05/19 10:33: Activated Clotting Time 186 H 03/05/19 10:39: Specimen Type ART, pH 7.19 L*, Bicarbonate Actual 30.0 H, POC Total CO2 32, Base Excess 2, O2 Saturation 96, ABG pCO2 79.4 H*, ABG pO2 110 H 03/05/19 11:39: Activated Clotting Time 307 H 03/05/19 11:45: Specimen Type ART, Sample Site OTHER, pH 7.21 L, Bicarbonate Actual 29.9 H, POC Total CO2 32, Base Excess 2, O2 Saturation 100 H, O2 % 100, ABG pCO2 75.5 H*, ABG pO2 359 H*, Respiration Rate 12, O2 Delivery Device Vent, Vent Mode A-C, Tidal Volume 500, POC PEEP 5, Blood Gas Notified Whom OTHER 03/05/19 14:00: Troponin I 61.000 H* 03/05/19 14:00: Total Creatine Kinase 2271 H, Triglycerides 68 Current Medications Acetaminophen (Tylenol) 650 mg PO Q6H PRN PRN PRN Reason: Pain Score 1-3/10 Atorvastatin Calcium (Lipitor) 80 mg PO QHS [facility] Atropine Sulfate () 0.5 mg IV UD PRN PRN Reason: HR <50 bpm Carvedilol (Coreg) 3.125 mg PO BID [facility] Heparin Sodium (Beef Lung) (Heparin 500 Unit/5 Ml (100/Ml)) 500 unit IV UD PRN PRN Reason: HEPARIN FLUSH Heparin Sodium (Porcine) (Heparin Na) 0 unit IV UD PRN; Protocol Heparin Sodium/Sodium Chloride () 2,000 units IV UD [facility] Last Admin: 03/05/19 13:04 Dose: 2,000 units Documented by: Heparin Sodium/Dextrose () 25,000 units in 250 mls @ 10 mls/hr IV .Q25H [facility]; Protocol Last Admin: 03/05/19 13:01 Dose: 1,000 units/hr, 10 mls/hr Documented by: Fentanyl () 100 mls @ 5 mls/hr IV UD [facility]; Protocol Propofol (Diprivan) 1,000 mg in 100 mls @ 11.184 mls/hr CONT INF .Q8H57M [facility]; Protocol Labetalol HCl (Trandate) 5 mg IV X1 PRN PRN Reason: SBP > 160 when pulling sheath Losartan Potassium (Cozaar) 12.5 mg PO DAILY [facility] Nitroglycerin (Nitrostat) 0.4 mg SUBLINGUAL Q5M PRN PRN Reason: CARDIAC/CHEST PAIN Sodium Chloride () 500 ml IV BOLUS PRN PRN Reason: VASO-VAGAL PROTOCOL Ticagrelor (Brilinta) 90 mg PO BID [facility] Assessment/Plan All Active Problems (Last Reviewed 02/27/19 @ 15:09 by Rupa Valentine) Syncope and collapse (Acute) Syncope (Acute) Bradycardia (Acute) 1. Acute STEMI, JOY score 2, s/p 4 stents in RCA, multiple vessel involvement On aspirin, brilinta, heparin drip, statin On balloon pump, cardiology following 2. Acute hypoxic respiratory failure s/p intubation, on [facility] ventilator, sedated Aircraft Charter Dispatcher consulted 3. Acute on chronic CHF, EF presumably 15% from left ventriculogram, received Lasix IV On Losartan, carvedilol, repeat 2d-ECHO is pending. 4. H/o recent CVA with residual left sided weakness, on aspirin and brilinta 5. Hypertension, controlled, on carvedilol and losartan, will continue monitor 6. CKD stage 3, Cr at baseline, will trend with labs in am 7. DVT PPx- On Heparin SC Code Visit Inpatient E&M: 34914 Init Hosp L3
--- NOTE | 2019-03-05 15:46 | CPS ---
The 1039 & 1145 blood gases were ran by dairy and food laboratory assistant. aware of critical results.
[2019-03-05 16:31] LABS: Base Excess 2 mmol/L (-2 to +2); Bicarbonate 26.9 mmol/L (22-26); Blood Gas Specimen Type ALINE; FI02 30; Mode A-C; O2 Delivery Device Vent; PEEP 5; PO2 82 mmHG (75-100); RR 16; SITE OTHER; SO2 96 % (95-99); Time Given 1624; Total Carbon Dioxide 28 mmol/L; Vt 500; pCO2 44.2 mmHg (35-45); pH 7.39 (7.35-7.45)
[2019-03-05 17:46] LABS: Bedside Glucose 283 mg/dL (70-110)
[2019-03-05] MEDS: Propofol 10MG/Ml 1,000 MG/100 ML Bottle 2.8 MG CONT INF (18:25)
[2019-03-05] MEDS: fentaNYL drip 100 ML 10 MCG IV (18:32)
[2019-03-05 19:45] LABS: Partial Thromboplast Time 131.2 Seconds (24.1-36.2)
[2019-03-05] MEDS: Chlorhexidine 15 ML PO (22:13)
[2019-03-05] MEDS: TICAGRELOR 90 MG TABLET PO (22:17)
[2019-03-05] MEDS: Carvedilol 3.125 MG TABLET PO (22:17)
[2019-03-05] MEDS: Atorvastatin Calcium 80 MG Tablet PO (22:17)
[2019-03-05 23:36] LABS: Bedside Glucose 254 mg/dL (70-110)
[2019-03-05 23:48] LABS: Partial Thromboplast Time 42.3 Seconds (24.1-36.2)
[2019-03-06] VITALS (37 sets, daily range): BP systolic 65–178; BP diastolic 44–89; PULSE 53–82; RESP 14–27; TEMP 36.1–37.5; O2SAT 25–100; BMI 29.0
[2019-03-06] MEDS: Insulin Lispro 100 UNIT/ML INSULN.PEN SC ×4 (00:09→17:06)
[2019-03-06] MEDS: 0.9% Saline Lock 10 ML Syringe IV ×6 (00:10→16:14)
[2019-03-06] MEDS: fentaNYL drip 100 ML 12.5 MCG IV (04:07)
[2019-03-06 05:28] LABS: Hematocrit 37.2 % (40-54); Hemoglobin 12.9 g/dL (13.0-16.5); Mean Corp Hgb Conc 34.7 g/dL (32-36); Mean Corpuscular Hgb 29.8 pg (27.0-32.0); Mean Corpuscular Volume 85.9 fL (80-94); Mean Platelet Vol. 12.3 fl (6.2-12.0); Platelet Count 147 K/mm3 (150-450); RBC Distribution Width CV 13.1 % (11.6-14.6); RBC Distribution Width SD 40.6 fl (35.1-43.9); Red Blood Count 4.33 M/mm3 (4.6-6.2); White Blood Count 15.2 K/mm3 (4.4-11.0)
[2019-03-06 05:39] LABS: Partial Thromboplast Time 42.2 Seconds (24.1-36.2)
[2019-03-06 05:41] LABS: Bedside Glucose 260 mg/dL (70-110)
[2019-03-06 05:54] LABS: AST(SGOT) 273 U/L (15-37); Alanine Aminotransfer ALT/SGPT 58 U/L (16-61); Albumin, Serum 3.1 g/dL (3.2-5.0); Alkaline Phosphatase 75 U/L (45-117); Anion Gap 9 (5-15); BUN 33 mg/dL (7-18); BUN/Creat Ratio 16.8 RATIO (10-20); Calcium,Total 8.4 mg/dL (8.5-10.1); Chloride 101 mmol/L (98-107); Creatinine, Serum 1.97 mg/dL (0.70-1.30); EST Glomerular Filtration Rate 37 mL/min (>60); Est Glom Filt Rate - Afr Amer 45 mL/min (>60); Estimated Creatinine Clearance 46.36 ml/min; Globulin 3.1 g/dL (2.2-4.2); Glucose 261 mg/dL (74-106); Potassium 3.7 mmol/L (3.5-5.1); Protein, Total 6.2 g/dL (6.4-8.2); Sodium Level 139 mmol/L (136-145)
--- NOTE | 2019-03-06 05:55 | RAD_ITS ---
HISTORY: VERIFY AORTIC BALLOON POSITION EXAMINATION/TECHNIQUE: XR Chest 1 View: Portable spine COMPARISON: 03/05/2019 FINDINGS: Cardiac telemetry leads in place. LINES/DEVICES: The intra-aortic balloon pump tip is stable in position at the level of the aortic knob of the transverse aortic arch. The enteric tube and endotracheal tube are likewise unchanged in position. Normal heart size. Improvement with decreasing pulmonary edema. No focal infiltrates. No significant pleural effusion. Atherosclerotic thoracic aorta. No pneumothorax. IMPRESSION: Abnormal 1. The intra-aortic balloon pump is unchanged in position. 2. Improving pulmonary edema. Otherwise, no significant change. at 0515 Reported and signed by: David Dougherty MD Electronically Signed: David Dougherty, at 5:14 EST Tel , Service support , RAD/Chest 1 View (Portable)
--- NOTE | 2019-03-06 07:24 | PCM.PN.HOSP ---
Patient Problems: Active and Suspected Problems (Last Updated 03/06/19 @ 08:39 by Chelsea Lomax) STEMI (ST elevation myocardial infarction) (Acute 03/05/19) Subjective: Follow-up on STEMI: Patient was seen and examined. He remains intubated, on mechanical ventilator, sedated with Precedex and fentanyl. He moves his head to commands and nods or shakes his head to yes or no. He also remains on the balloon pump. His OG had bloody gastric aspirate. Vitals are stable. Objective: Physical exam: General: - - Intubated, on mechanical ventilator, alert, cooperative, restrained HEENT: Atraumatic, PERRLA, EOMI, Normocephalic Oral: Moist Mucosa, - - ET tube present Neck: Supple Lungs: Clear to auscultation, Normal air movement Cardiovascular: Regular rate, Regular Rhythm, Normal S1, Normal S2, No murmurs Abdomen: Bowel Sounds Present, Soft, Non Tender, Non-Distended, No Hepato-splenomegaly, newby catheter in situ Extremities: - - Bilateral leg edema +2 Skin: No rashes, No breakdown Musculoskeletal: No Tenderness to Palpation of Joints or Extremities Lymphatic: No Cervical, Supraclavicular, or Inguinal Adenopathy Neurological: Cranial nerves II-XII grossly intact Psych/Mental Status: Normal Affect, Appropriate Vitals/I&O's: Vital Signs Temp Pulse Resp BP Pulse Ox 99.1 F 75 27 H 125/89 H 98 03/06/19 07:00 03/06/19 07:00 03/06/19 07:00 03/06/19 07:00 03/06/19 07:00 Oxygen Flow Rate (L/min) 15 Oxygen Delivery Method Mechanical Ventilator Weight: 94.5 kg Body Mass Index (BMI) 26.4 Finger Stick Blood Glucose 122 Intake and Output for Last 24 Hours 03/04/19 03/05/19 03/06/19 23:59 23:59 23:59 Intake Total 198.85 / 302.98 276.23 / 276.23 Output Total 150 / 600 800 / 800 Balance 48.85 / -297.02 -523.77 / -523.77 Laboratory Results 03/05/19 09:55: WBC 12.7 H, RBC 5.13, Hgb 15.3, Hct 45.2, MCV 88.1, MCH 29.8, MCHC 33.8, RDW Std Deviation 42.5, RDW Coeff of Jr 13.2, Plt Count 187, MPV 12.9 H, Immature Gran % (Auto) 2.000 H, Neut % (Auto) 73.4 H, Lymph % (Auto) 14.7 L, [place] % (Auto) 6.2, Eos % (Auto) 3.0, Baso % (Auto) 0.7, Absolute Neuts (auto) 9.3 H, Absolute Lymphs (auto) 1.87, Nucleated RBC % 0 03/05/19 09:55: PT 14.3, INR 1.1, APTT 28.3 03/05/19 09:55: Sodium 139, Potassium 3.8, Chloride 101, Carbon Dioxide 31.0, Anion Gap 7, BUN 30 H, Creatinine 1.77 H, Estim Creat Clear Calc 51.60, Est GFR (MDRD) Af Amer 51 L, Est GFR (MDRD) Non-Af 42 L, BUN/Creatinine Ratio 16.9, Glucose 316 H, Calcium 9.2, Troponin I 0.124 H 03/05/19 10:33: Activated Clotting Time 186 H 03/05/19 10:39: Specimen Type ART, pH 7.19 L*, Bicarbonate Actual 30.0 H, POC Total CO2 32, Base Excess 2, O2 Saturation 96, ABG pCO2 79.4 H*, ABG pO2 110 H 03/05/19 11:39: Activated Clotting Time 307 H 03/05/19 11:45: Specimen Type ART, Sample Site OTHER, pH 7.21 L, Bicarbonate Actual 29.9 H, POC Total CO2 32, Base Excess 2, O2 Saturation 100 H, O2 % 100, ABG pCO2 75.5 H*, ABG pO2 359 H*, Respiration Rate 12, O2 Delivery Device Vent, Vent Mode A-C, Tidal Volume 500, POC PEEP 5, Blood Gas Notified Whom OTHER 03/05/19 14:00: Troponin I 61.000 H* 03/05/19 14:00: Total Creatine Kinase 2271 H, Triglycerides 68 03/05/19 16:25: Troponin I 111.500 H* 03/05/19 16:26: Specimen Type LINDY, Sample Site OTHER, pH 7.39, Bicarbonate Actual 26.9 H, POC Total CO2 28, Base Excess 2, O2 Saturation 96, O2 % 30, ABG pCO2 44.2, ABG pO2 82, Respiration Rate 16, O2 Delivery Device Vent, Minute Volume 8.00, Vent Mode A-C, Tidal Volume 500, POC PEEP 5, Blood Gas Notified Whom ICU MD, Blood Gas Notified Time 1624 03/05/19 17:39: POC Glucose 283 H 03/05/19 19:15: APTT 131.2 H* 03/05/19 23:25: POC Glucose 254 H 03/05/19 23:30: APTT 42.3 H 03/06/19 05:16: POC Glucose 260 H 03/06/19 05:25: WBC 15.2 H, RBC 4.33 L, Hgb 12.9 L, Hct 37.2 L, MCV 85.9, MCH 29.8, MCHC 34.7, RDW Std Deviation 40.6, RDW Coeff of Jr 13.1, Plt Count 147 L, MPV 12.3 H 03/06/19 05:25: Sodium 139, Potassium 3.7, Chloride 101, Carbon Dioxide 29.0, Anion Gap 9, BUN 33 H, Creatinine 1.97 H, Estim Creat Clear Calc 46.36, Est GFR (MDRD) Af Amer 45 L, Est GFR (MDRD) Non-Af 37 L, BUN/Creatinine Ratio 16.8, Glucose 261 H, Calcium 8.4 L, Total Bilirubin 0.80, AST 273 H, ALT 58, Alkaline Phosphatase 75, Total Protein 6.2 L, Albumin 3.1 L, Globulin 3.1, Albumin/Globulin Ratio 1.0 03/06/19 05:25: APTT 42.2 H Current Medications Acetaminophen (Tylenol) 650 mg PO Q6H PRN PRN PRN Reason: Pain Score 1-3/10 Atorvastatin Calcium (Lipitor) 80 mg PO QHS [facility] Last Admin: 03/05/19 22:17 Dose: 80 mg Documented by: Atropine Sulfate () 0.5 mg IV UD PRN PRN Reason: HR <50 bpm Carvedilol (Coreg) 3.125 mg PO BID [facility] Last Admin: 03/05/19 22:17 Dose: 3.125 mg Documented by: Chlorhexidine Gluconate () 15 ml PO BID [facility] Last Admin: 03/05/19 22:13 Dose: 15 ml Documented by: Heparin Sodium (Beef Lung) (Heparin 500 Unit/5 Ml (100/Ml)) 500 unit IV UD PRN PRN Reason: HEPARIN FLUSH Heparin Sodium (Porcine) (Heparin Na) 0 unit IV UD PRN; Protocol Heparin Sodium/Sodium Chloride () 2,000 units IV UD [facility] Last Admin: 03/05/19 13:04 Dose: 2,000 units Documented by: Heparin Sodium/Dextrose () 25,000 units in 250 mls @ 10 mls/hr IV .Q25H [facility]; Protocol Last Titration: 03/06/19 07:00 Dose: 900 units/hr, 9 mls/hr Documented by: Fentanyl () 100 mls @ 5 mls/hr IV UD [facility]; Protocol Last Titration: 03/06/19 07:00 Dose: 150 mcg/hr, 15 mls/hr Documented by: Propofol (Diprivan) 1,000 mg in 100 mls @ 11.184 mls/hr CONT INF .Q8H57M [facility]; Protocol Last Titration: 03/06/19 07:05 Dose: 20 mcg/kg/min, 11.2 mls/hr Documented by: Sodium Chloride () 250 mls @ 15 mls/hr IV .[id number] PRN PRN Reason: Saline Flush Insulin Human Lispro (Humalog Kwikpen (Bkc)) 0 unit SC Q6 [facility]; Protocol Last Admin: 03/06/19 05:27 Dose: 3 units Documented by: Labetalol HCl (Trandate) 5 mg IV X1 PRN PRN Reason: SBP > 160 when pulling sheath Losartan Potassium (Cozaar) 12.5 mg PO DAILY [facility] Nitroglycerin (Nitrostat) 0.4 mg SUBLINGUAL Q5M PRN PRN Reason: CARDIAC/CHEST PAIN Sodium Chloride () 500 ml IV BOLUS PRN PRN Reason: VASO-VAGAL PROTOCOL Sodium Chloride () 10 - 40 ml IV UD PRN PRN Reason: SALINE FLUSH Last Admin: 03/06/19 05:29 Dose: 40 ml Documented by: Ticagrelor (Brilinta) 90 mg PO BID [facility] Last Admin: 03/05/19 22:17 Dose: 90 mg Documented by: STROKE Vital Signs/Narrative: Vital Signs Temp Pulse Resp BP BP BP Pulse Ox 03/06/19 07:00 99.1 F 75 27 H 178/57 H 124/64 H 125/89 H 98 03/06/19 06:00 99.2 F H 77 16 173/65 H 136/75 H 152/86 H 25 03/06/19 05:00 99.3 F H 72 20 H 150/63 H 124/73 H 139/81 H 98 03/06/19 04:00 99.4 F H 68 16 109/72 90/57 L 98/64 25 Medical Necessity - Tobacco Use Smoking Status: Unknown if ever smoked Tobacco Use: Non-smoker Assessment/Plan All Active Problems (Last Updated 03/06/19 @ 08:39 by Chelsea Lomax) STEMI (ST elevation myocardial infarction) (Acute 03/05/19) Syncope and collapse (Acute) Syncope (Acute) Bradycardia (Acute) 1. Acute STEMI, JOY score 2, s/p 4 stents in RCA, multiple vessel involvement On aspirin, brilinta, heparin drip, statin On balloon pump, cardiology following 2. Acute hypoxic respiratory failure s/p intubation, on [facility] ventilator, on fentanyl and Precedex Creative Writing Professor consulted 3. Acute GI bleed, likely secondary to gastritis, Likely stress related vs medication-induced Will continue on IV PPI drip 4. Acute on chronic CHF, EF 15-20% on 2D ECHO On lasix 40mg IV daily 4. H/o recent CVA with residual left sided weakness, on aspirin and brilinta 5. Hypertension, controlled, on carvedilol and losartan, will continue monitor 6. CKD stage 3, Cr slightly increased to 1.97, from 1.77, Will trend labs 7. DVT PPx- On Heparin SC 8. Code status: DNR-CCA. Code Visit Inpatient E&M: 61864 Subs Hosp L3
--- NOTE | 2019-03-06 08:16 | CRPHASE1 ---
Patient Communication Cardiac Rehab Facility Choice List Given to Patient:: Yes - List in booklet, left for patient and family. Pt is intubated and on vent. Choice Program [facility] CR PHII:: Communication Given to CR, Refer to [facility] - Booklet left for patient and family. Pt is intubated and on vent. Dude Wrangler:: Cortez Pearce PCP:: Chema Mckeon Phase II Cardiac Rehab:: Yes Sessions:: 36 sessions - 3 days/wk, 12 weeks Phase I Charge:: Level I - Education - Nurse at bedside informed of booklet left for pt and to have pt/family call CR if any questions. Risk Factors/Lifestyle Smoking Status: Unknown if ever smoked Hx Diabetes Mellitus Type 2: Yes Hx Obesity: Yes Height: 6 ft 2 in Weight:: 226 lb BMI: 29.0 Family History: Family History (Last Reviewed 02/27/19 @ 15:09 by Rupa Valentine) Father Heart disease Son Kidney disease Family History: Heart Disease, Renal Disease Laboratory Values: Cardiac Rehab Phase I Labs Triglycerides 68 mg/dL (-199) 03/05/19 14:00 Phase I Education Given On:: Harrah - Booklet left at bedside. Issues Affecting Care:: Physical - Intubated and on vent currently Medical/Surgical History Other Medical/Surgical Issues:: Recent CVA and in fpc. Cardiac Rehabilitation Info Cardiac Rehabilitation Program Information: Cardiac Rehabilitation is important for patients like you who are recovering from a heart problem. Cardiac rehabilitation programs are recognized as integral to the continued care of the patient with coronary heart disease. The cardiac rehabilitation program is designed to optimize a patient's physical, psychological, and social functioning. Health plant care worker work in cardiac rehabilitation programs and assist you with getting the treatments you need to get stronger and healthier - like exercise, healthy eating habits, and medications. Cardiac rehabilitation has been show to help people with heart problems live longer and have better life enjoyment than people who do not go to cardiac rehabilitation. Please contact the Cardiac Rehabilitation Program at [facility] at in two weeks if you have not heard from them.
--- NOTE | 2019-03-06 08:28 | CRPH1.INSTRU ---
General Education CAD and cardiac anatomy and function:: Not instructed - Nurse at bedside informed of booklet left for pt and to have pt/family call CR if any questions.
--- NOTE | 2019-03-06 08:40 | CON.PCM_ITS ---
Problem List (1) Arteriosclerosis of coronary artery in patient with history of myocardial infarction Status: Chronic Comment: STEMI 03/05/2019:Triple vessel CAD of the LM, LAD, LCX RCA Successful PTCA/ESTEBAN of mid RCA with a 2.25 x 38 Promus Synergy, post dilated throughout with a 2.5 x 8 NC balloon; 99%-->0%, no dissection. Successful PTCA/ESTEBAN proximal RCA with a 2.5 x 16 Promus Synergy, post dilated with a 2.5 x 8 NC balloon; 75%-->0%, no dissection. Successful PTCA/ESTEBAN distal RCA with transition into PDA utilizing a 2.25 x 38 Promus Synergy, followed upstream with a 2.25 x 16 Promus Synergy, post dilated with a 2.5 x 8 NC in the 16mm stented area only; 75%-->0%, no dissection or perforation. (2) Stented coronary artery Status: Chronic Comment: Triple vessel CAD of the LM, LAD, LCX RCA Successful PTCA/ESTEBAN of mid RCA with a 2.25 x 38 Promus Synergy, post dilated throughout with a 2.5 x 8 NC balloon; 99%-->0%, no dissection. Successful PTCA/ESTEBAN proximal RCA with a 2.5 x 16 Promus Synergy, post dilated with a 2.5 x 8 NC balloon; 75%-->0%, no dissection. Successful PTCA/ESTEBAN distal RCA with transition into PDA utilizing a 2.25 x 38 Promus Synergy, followed upstream with a 2.25 x 16 Promus Synergy, post dilated with a 2.5 x 8 NC in the 16mm stented area only; 75%-->0%, no dissection or perforation. 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 Patient had reportedly woken up with chest pain, shortness of breath and sweats. Patient reportedly had had a stroke 2 months ago, but had no residual deficits. Patient does have a high risk profile for coronary artery disease with diabetes, hypertension, hyperlipidemia and smoking. Patient was on aspirin and Plavix. On arrival to the emergency department, EKG was obtained showing an ST elevation MS. Patient was given heparin, Brilinta and Zofran and transferred to the [facility] for urgent intervention. However, patient became progressively hypoxic and required intubation for airway protection. This was completed by the ER staff without applications. In the [facility], patient was noted to have a 99% blockage of the RCA. Patient received 4 stents. Patient was also noted to have triple- vessel disease elsewhere, but this was held off on intervention. Patient had an intra-aortic balloon pump placed and was transferred to the intensive care unit for further evaluation. Overnight, patient was noted to have approximately 500 cc of bloody secretions out of the OG. Patient has been difficult to sedate secondary to hypotension with propofol. On my arrival this morning, patient was transitioned over to Precedex therapy. Patient has not required any pressor therapy. Patient is unable to give a review of systems at this time secondary to acute condition. Patient has had rapid decline in cardiac function. 2 months ago, patient was noted to drop from 60% to 45% EF associated with stroke. Patient now has an EF of approximately 15% per the [facility]. Patient has had some elevated temperatures, so a godwin culture was obtained this morning. Patient is on minimal vent settings, but was unable to be taken off of sedation long enough to obtain a spontaneous breathing/spontaneous awakening trial. Past Medical History Past Medical History (Chronic Problems): Chronic Problems (Last Updated 03/06/19 @ 08:39 by Chelsea Lomax) Arteriosclerosis of coronary artery in patient with history of myocardial infarction (Chronic) STEMI 03/05/2019:Triple vessel CAD of the LM, LAD, LCX RCA Successful PTCA/ESTEBAN of mid RCA with a 2.25 x 38 Promus Synergy, post dilated throughout with a 2.5 x 8 NC balloon; 99%-->0%, no dissection. Successful PTCA/ESTEBAN proximal RCA with a 2.5 x 16 Promus Synergy, post dilated with a 2.5 x 8 NC balloon; 75%-->0%, no dissection. Successful PTCA/ESTEBAN distal RCA with transition into PDA utilizing a 2.25 x 38 Promus Synergy, followed upstream with a 2.25 x 16 Promus Synergy, post dilated with a 2.5 x 8 NC in the 16mm stented area only; 75%-->0%, no dissection or perforation. Stented coronary artery (Chronic 03/06/19) Triple vessel CAD of the LM, LAD, LCX RCA Successful PTCA/ESTEBAN of mid RCA with a 2.25 x 38 Promus Synergy, post dilated throughout with a 2.5 x 8 NC balloon; 99%-->0%, no dissection. Successful PTCA/ESTEBAN proximal RCA with a 2.5 x 16 Promus Synergy, post dilated with a 2.5 x 8 NC balloon; 75%-->0%, no dissection. Successful PTCA/ESTEBAN distal RCA with transition into PDA utilizing a 2.25 x 38 Promus Synergy, followed upstream with a 2.25 x 16 Promus Synergy, post dilated with a 2.5 x 8 NC in the 16mm stented area only; 75%-->0%, no dissection or perforation. Hypertension (Chronic) Type 2 diabetes mellitus (Chronic) Secondary hypertension (Chronic) CVA (cerebral vascular accident) (Chronic) Noncompliance with diabetes treatment (Chronic) Medical History: Medical History (Last Updated 03/06/19 @ 08:39 by Chelsea Lomax) Arteriosclerosis of coronary artery in patient with history of myocardial infarction (Chronic) I25.10, I25.2 STEMI 03/05/2019:Triple vessel CAD of the LM, LAD, LCX RCA Successful PTCA/ESTEBAN of mid RCA with a 2.25 x 38 Promus Synergy, post dilated throughout with a 2.5 x 8 NC balloon; 99%-->0%, no dissection. Successful PTCA/ESTEBAN proximal RCA with a 2.5 x 16 Promus Synergy, post dilated with a 2.5 x 8 NC balloon; 75%-->0%, no dissection. Successful PTCA/ESTEBAN distal RCA with transition into PDA utilizing a 2.25 x 38 Promus Synergy, followed upstream with a 2.25 x 16 Promus Synergy, post dilated with a 2.5 x 8 NC in the 16mm stented area only; 75%-->0%, no dissection or perforation. STEMI (ST elevation myocardial infarction) (Acute) Onset Date: 03/05/19 I21.3 Type 2 diabetes mellitus (Chronic) E11.9 Secondary hypertension (Chronic) I15.9 Syncope and collapse (Acute) R55 CVA (cerebral vascular accident) (Chronic) I63.9 Syncope (Acute) R55 Bradycardia (Acute) R00.1 Noncompliance with diabetes treatment (Chronic) Z91.19 FLORY (acute kidney injury) N17.9 Anxiety F41.9 Back pain M54.9 Depression F32.9 Abdominal pain R10.9 Hematochezia K92.1 Intractable nausea and vomiting R11.2 Nausea R11.0 Nonketotic hyperglycinemia E72.51 Allergies nifedipine [From Adalat] Allergy (Verified 02/27/19 15:01) Unknown Home Medications: Ambulatory Orders Medication Instructions Recorded Atorvastatin Calcium [Lipitor] 80 mg PO QHS tab 02/10/19 Clonidine HCl [Catapres] 0.1 mg PO BID tab 02/10/19 Clopidogrel Bisulfate [Plavix] 75 mg PO DAILY tab 02/10/19 Insulin Glargine [Lantus SoloStar 45 units SUBCUT DAILY@1999 pen 02/10/19 Pen] Insulin Lispro [Humalog KwikPen] 8 unit SUBCUT TIDAC insuln.pen 02/10/19 Pantoprazole Sodium [Protonix] 40 mg PO DAILY tab 02/10/19 Sertraline HCl [Zoloft] 50 mg PO DAILY tab 02/10/19 diazepam 5 mg tablet 5 mg PO BID 02/27/19 duloxetine 60 mg capsule,delayed 60 mg PO DAILY 02/27/19 release fenofibrate micronized 67 mg 67 mg PO DAILY 02/27/19 capsule fenofibric acid (choline) 45 mg 45 mg PO DAILY 02/27/19 capsule,delayed release hydrochlorothiazide 12.5 mg tablet 12.5 mg PO DAILY 02/27/19 lisinopril 20 mg tablet 20 mg PO DAILY 02/27/19 omeprazole 40 mg capsule,delayed 40 mg PO DAILY 11/18/19 release pregabalin 150 mg capsule 150 mg PO BID 02/27/19 sennosides 8.6 mg-docusate sodium 2 tab PO BID PRN tab 02/27/19 50 mg tablet Surgical History: Surgical History (Last Updated 03/06/19 @ 08:39 by Chelsea Lomax) Stented coronary artery (Chronic) Onset Date: 03/06/19 Z95.5 Triple vessel CAD of the LM, LAD, LCX RCA Successful PTCA/ESTEBAN of mid RCA with a 2.25 x 38 Promus Synergy, post dilated throughout with a 2.5 x 8 NC balloon; 99%-->0%, no dissection. Successful PTCA/ESTEBAN proximal RCA with a 2.5 x 16 Promus Synergy, post dilated with a 2.5 x 8 NC balloon; 75%-->0%, no dissection. Successful PTCA/ESTEBAN distal RCA with transition into PDA utilizing a 2.25 x 38 Promus Synergy, followed upstream with a 2.25 x 16 Promus Synergy, post dilated with a 2.5 x 8 NC in the 16mm stented area only; 75%-->0%, no dissection or perforation. History of lumbar fusion Z98.890 History of back surgery Z98.890 History of umbilical hernia repair Z98.890, Z87.19 Surgical History: - - Back Surgery 198906/29/95. He had a hernia repair May 07, 2008 Psychiatric History: Anxiety, Depression - severe Lives: Spouse/ Significant Other Smoking Status: Unknown if ever smoked Tobacco Use: Non-smoker Alcohol: None, Occasional Drugs: None - *Family History Paternal Family History: Family History (Last Reviewed 02/27/19 @ 15:09 by Rupa Valnetine) Father Heart disease Son Kidney disease History Items: Heart Disease, Hypertension, - - CAD; cerebral hemorrhage. Maternal Family History: Family History (Last Reviewed 02/27/19 @ 15:09 by Rupa Valentine) Father Heart disease Son Kidney disease History Items: - - suicide, depression Review of Systems Comment: See HPI Patient Problems: Active and Suspected Problems (Last Updated 03/06/19 @ 08:39 by Chelsea Lomax) STEMI (ST elevation myocardial infarction) (Acute 03/05/19) Objective: All imaging was personally reviewed. Current echocardiogram shows an EF of 15 to 20% with stage I diastolic dysfunction and a pulmonary artery systolic pressure of 25 mmHg. Patient does have significant anterior hypokinesis. Patient has never had a pulmonary function test. - Physical Exam Vitals/I&O's: Vital Signs Temp Pulse Resp BP Pulse Ox 37.4 C H 72 21 H 150/63 H 99 03/06/19 08:00 03/06/19 08:00 03/06/19 08:00 03/06/19 08:00 03/06/19 08:00 Oxygen Flow Rate (L/min) 15 Oxygen Delivery Method Mechanical Ventilator Weight: 102.512 kg Body Mass Index (BMI) 26.4 Finger Stick Blood Glucose 122 Intake and Output for Last 24 Hours 03/04/19 03/05/19 03/06/19 23:59 23:59 23:59 Intake Total 198.85 / 302.98 305.12 / 305.12 Output Total 150 / 600 800 / 800 Balance 48.85 / -297.02 -494.88 / -494.88 General: - - Intubated and sedated. RASS -2 to +2. Multiple tattoos noted. Appears older than stated age. Not following commands. HEENT: Atraumatic, PERRLA, EOMI, Normocephalic, - - No scleral icterus or injection noted Oral: Moist Mucosa, No Gingival or Mucosal Lesions/ Ulcerations Neck: Supple, No JVD, No Nodes, Trachea Midline Lungs: No rhonchi, No wheeze, No rales, Diminished, - - Symmetric expansion. No dullness to percussion Cardiovascular: Regular rate, Regular Rhythm, Normal S1, Normal S2, No murmurs, No rub noted, No Gallop, - - Normal sinus rhythm noted on telemetry. Abdomen: Bowel Sounds Present, Soft, Non Tender, Non-Distended, Obese Extremities: No clubbing, No cyanosis, No edema, Diminished Peripheral Pulses Skin: No rashes, No breakdown Musculoskeletal: No Tenderness to Palpation of Joints or Extremities Lymphatic: No Cervical, Supraclavicular, or Inguinal Adenopathy Neurological: - - Not following commands. Spinal reflexes appear to be intact. Localizes to stimulus. Psych/Mental Status: Impulsive, Restless Laboratory Results 03/05/19 09:55: WBC 12.7 H, RBC 5.13, Hgb 15.3, Hct 45.2, MCV 88.1, MCH 29.8, MCHC 33.8, RDW Std Deviation 42.5, RDW Coeff of Jr 13.2, Plt Count 187, MPV 12.9 H, Immature Gran % (Auto) 2.000 H, Neut % (Auto) 73.4 H, Lymph % (Auto) 14.7 L, Lassen % (Auto) 6.2, Eos % (Auto) 3.0, Baso % (Auto) 0.7, Absolute Neuts (auto) 9.3 H, Absolute Lymphs (auto) 1.87, Nucleated RBC % 0 03/05/19 09:55: PT 14.3, INR 1.1, APTT 28.3 03/05/19 09:55: Sodium 139, Potassium 3.8, Chloride 101, Carbon Dioxide 31.0, Anion Gap 7, BUN 30 H, Creatinine 1.77 H, Estim Creat Clear Calc 51.60, Est GFR (MDRD) Af Amer 51 L, Est GFR (MDRD) Non-Af 42 L, BUN/Creatinine Ratio 16.9, Glucose 316 H, Calcium 9.2, Troponin I 0.124 H 03/05/19 10:33: Activated Clotting Time 186 H 03/05/19 10:39: Specimen Type ART, pH 7.19 L*, Bicarbonate Actual 30.0 H, POC Total CO2 32, Base Excess 2, O2 Saturation 96, ABG pCO2 79.4 H*, ABG pO2 110 H 03/05/19 11:39: Activated Clotting Time 307 H 03/05/19 11:45: Specimen Type ART, Sample Site OTHER, pH 7.21 L, Bicarbonate Actual 29.9 H, POC Total CO2 32, Base Excess 2, O2 Saturation 100 H, O2 % 100, ABG pCO2 75.5 H*, ABG pO2 359 H*, Respiration Rate 12, O2 Delivery Device Vent, Vent Mode A-C, Tidal Volume 500, POC PEEP 5, Blood Gas Notified Whom OTHER 03/05/19 14:00: Troponin I 61.000 H* 03/05/19 14:00: Total Creatine Kinase 2271 H, Triglycerides 68 03/05/19 16:25: Troponin I 111.500 H* 03/05/19 16:26: Specimen Type LINDY, Sample Site OTHER, pH 7.39, Bicarbonate Actual 26.9 H, POC Total CO2 28, Base Excess 2, O2 Saturation 96, O2 % 30, ABG pCO2 44.2, ABG pO2 82, Respiration Rate 16, O2 Delivery Device Vent, Minute Volume 8.00, Vent Mode A-C, Tidal Volume 500, POC PEEP 5, Blood Gas Notified Whom ICU , Blood Gas Notified Time 1624 03/05/19 17:39: POC Glucose 283 H 03/05/19 19:15: APTT 131.2 H* 03/05/19 23:25: POC Glucose 254 H 03/05/19 23:30: APTT 42.3 H 03/06/19 05:16: POC Glucose 260 H 03/06/19 05:25: WBC 15.2 H, RBC 4.33 L, Hgb 12.9 L, Hct 37.2 L, MCV 85.9, MCH 29.8, MCHC 34.7, RDW Std Deviation 40.6, RDW Coeff of Jr 13.1, Plt Count 147 L, MPV 12.3 H 03/06/19 05:25: Sodium 139, Potassium 3.7, Chloride 101, Carbon Dioxide 29.0, Anion Gap 9, BUN 33 H, Creatinine 1.97 H, Estim Creat Clear Calc 46.36, Est GFR (MDRD) Af Amer 45 L, Est GFR (MDRD) Non-Af 37 L, BUN/Creatinine Ratio 16.8, Glucose 261 H, Calcium 8.4 L, Total Bilirubin 0.80, AST 273 H, ALT 58, Alkaline Phosphatase 75, Total Protein 6.2 L, Albumin 3.1 L, Globulin 3.1, Albumin/Globulin Ratio 1.0 03/06/19 05:25: APTT 42.2 H Clinical Impression(s) from Imaging Studies Chest X-Ray 03/05/19 10:00 IMPRESSION: Findings suspicious for trace edema. Electronically Signed: Macarena Richards MD at 10:35 EST Tel , Service support , Chest X-Ray 03/05/19 13:25 IMPRESSION: 1. Endotracheal and enteric tubes, as above. 2. Intra-aortic balloon pump. 3. Worsening pulmonary edema, particularly the right lung base. Electronically Signed: Jimmie Cabrera MD (Brooks) at 14:23 EST , Service support , KUB X-Ray 03/05/19 13:33 IMPRESSION: 1. Enteric tube extends into the upper stomach. Air distended stomach. Electronically Signed: Jimmie Cabrera MD (Brooks) at 14:22 EST , Service support , Chest X-Ray 03/06/19 05:55 Current Medications Acetaminophen (Tylenol) 650 mg PO Q6H PRN PRN PRN Reason: Pain Score 1-3/10 Atorvastatin Calcium (Lipitor) 80 mg PO QHS [facility] Last Admin: 03/05/19 22:17 Dose: 80 mg Documented by: Atropine Sulfate () 0.5 mg IV UD PRN PRN Reason: HR <50 bpm Carvedilol (Coreg) 3.125 mg PO BID [facility] Last Admin: 03/05/19 22:17 Dose: 3.125 mg Documented by: Chlorhexidine Gluconate () 15 ml PO BID [facility] Last Admin: 03/05/19 22:13 Dose: 15 ml Documented by: Furosemide (Lasix) 40 mg IV DAILY [facility] Heparin Sodium (Beef Lung) (Heparin 500 Unit/5 Ml (100/Ml)) 500 unit IV UD PRN PRN Reason: HEPARIN FLUSH Heparin Sodium (Porcine) (Heparin Na) 0 unit IV UD PRN; Protocol Heparin Sodium/Sodium Chloride () 2,000 units IV UD [facility] Last Admin: 03/05/19 13:04 Dose: 2,000 units Documented by: Heparin Sodium/Dextrose () 25,000 units in 250 mls @ 10 mls/hr IV .Q25H [facility]; Protocol Last Titration: 03/06/19 07:00 Dose: 900 units/hr, 9 mls/hr Documented by: Fentanyl () 100 mls @ 5 mls/hr IV UD [facility]; Protocol Last Titration: 03/06/19 08:15 Dose: 175 mcg/hr, 17.5 mls/hr Documented by: Sodium Chloride () 250 mls @ 15 mls/hr IV .[id number] PRN PRN Reason: Saline Flush Dexmedetomidine HCl 400 mcg/ (Sodium Chloride) 100 mls @ 11.813 mls/hr CONT INF .Q8H28M [facility]; Protocol Last Titration: 03/06/19 08:15 Dose: 0.6 mcg/kg/hr, 14.2 mls/hr Documented by: Pantoprazole Sodium 80 mg/ (Sodium Chloride) 100 mls @ 10 mls/hr CONT INF Q10H [facility] Insulin Human Lispro (Humalog Kwikpen (Bkc)) 0 unit SC Q6 [facility]; Protocol Last Admin: 03/06/19 05:27 Dose: 3 units Documented by: Labetalol HCl (Trandate) 5 mg IV X1 PRN PRN Reason: SBP > 160 when pulling sheath Losartan Potassium (Cozaar) 12.5 mg PO DAILY [facility] Nitroglycerin (Nitrostat) 0.4 mg SUBLINGUAL Q5M PRN PRN Reason: CARDIAC/CHEST PAIN Sodium Chloride () 500 ml IV BOLUS PRN PRN Reason: VASO-VAGAL PROTOCOL Sodium Chloride () 10 - 40 ml IV UD PRN PRN Reason: SALINE FLUSH Last Admin: 03/06/19 05:29 Dose: 40 ml Documented by: Ticagrelor (Brilinta) 90 mg PO BID [facility] Last Admin: 03/05/19 22:17 Dose: 90 mg Documented by: Assessment/Plan Active and Suspected Problems (Last Updated 03/06/19 @ 08:39 by hCelsea Lomax) STEMI (ST elevation myocardial infarction) (Acute 03/05/19) RECOMMENDATIONS: 1. Cardiac optimization per cardiology 2. Defer to cardiology on intra-aortic balloon pump weaning 3. Transition from propofol to Precedex therapy for sedation 4. Spontaneous awakening and breathing trials per protocol 5. Monitor for malignant ectopy 6. Agree with PPI drip, likely transition to twice daily tomorrow 7. Attempt to obtain further information from family IMPRESSIONS: 1. Cardiogenic shock secondary to ST elevation MS with RCA stenting Patient with multiple coronary artery lesions and a progressive loss of EF from 60% to 15 - 20% in a relatively short time. Patient currently has an intra-aortic balloon pump in place. Sedation has been difficult, so will transition from propofol to Precedex therapy. Patient is on appropriate antiplatelet therapy. We will continue to monitor. 2. Acute hypoxic respiratory failure secondary to probable acute CHF secondary to #1 Patient's chest x-ray looks to be more appropriate today. Supportive devices are in appropriate position. Spontaneous awakening and breathing trials per protocol. Patient is not following commands, so we will transition to Precedex therapy to facilitate weaning from the ventilator. Hold off on active diuresis given dye load yesterday. If patient is a reported smoker, initiation of bronchodilator therapy may be helpful 3. Acute blood loss anemia secondary to upper GI bleed Patient reportedly with large bloody removal from the OG on placement. Unclear if this is related to an ulcer versus stress gastritis in the setting of anticoagulation. Patient will be placed on a PPI drip. May benefit from a upper GI for evaluation. Will transition to PPI twice daily tomorrow if bleeding continues to be minimal. 4. Recent CVA/hypertension/CKD stage III/chronic pain/uncontrolled diabetes mellitus Complicates care, management, recovery and prognosis. Will likely initiate tube feeds tomorrow. Will need to watch blood sugars closely. Renal function appears to be doing okay at this time. Patient is on a fentanyl drip. TIME: 60 minutes of critical care time spent addressing patient's cardiogenic shock, acute hypoxic respiratory failure, acute blood loss anemia, diabetes mellitus, review of all data and collaboration with care team (7 AM to 9 AM) Code Visit 9xxxx: [id number] Critical care first hour
[2019-03-06] MEDS: Ipratropium/Albuterol Sulfate 3 ML AMPUL.NEB INHALATION ×2 (09:25→19:01)
[2019-03-06] MEDS: TICAGRELOR 90 MG TABLET PO ×2 (09:39→22:35)
[2019-03-06] MEDS: Losartan Potassium 25 MG Tablet 12.5 MG PO (09:39)
[2019-03-06] MEDS: Carvedilol 3.125 MG TABLET PO (09:39)
[2019-03-06] MEDS: Furosemide 40 MG/4 ML Vial IV (09:40)
[2019-03-06] MEDS: Chlorhexidine 15 ML PO ×2 (09:40→22:34)
--- NOTE | 2019-03-06 09:44 | CASEMGMT ---
RN CM Note: In Network review for MMO PPO if transfer to Tertiary Care is recommended. [facility], , [facility], [place], [facility], , [place], [facility] RN CM Assessment Presentation: STEMI, post PCI: IABP, vent Intro role of CM and purpose of RN CM assessment to daughter, son and brother who participated in ICU interdisciplinary rounds.. Demographics, PCP and Pharmacy verified. Lengthy discussion with family re: possible transfer recommendation. Daughter states her mother was unsure of transferring. RN CM let daughter know it would benefit family including pt's to have account auditor speak with them and explain plan of care. will be in later. Questions answered re: insurance coverage. MMO is currently primary ( is guarantor), MCR AB secondary and per daughter, pt has just been approved for SHEILA also. PCP: Dr. Chema Mckeon Specialists: Dr. Chavarria, Dr. Pearce Preferred Pharmacy: [facility] [place], [place] Insurance: MMO, MCR AB, Medicaid Prescription Benefit: yes LNOK: Karen Living Arrangements: Lives with Transportation: drives DME: [employer] shower chair HHC/SNF: [facility]. No recent [facility] SW: yes. Patient DC goals: family is aware pt may require transfer to tertiary care. DC PLAN: undetermined. Thelma HARPER RN ACM
--- NOTE | 2019-03-06 09:44 | CASEMGMT ---
SW participated in ICU rounds this morning, pt's daughter, son and brother were present. SW spoke w/family after rounds. Daughter indicated pt's is concerned about finances. SW offered to call insurance to see what deductibles and out of pocket have been met, as this may ease 's mind. Pt's brother explained he thinks pt's deductibles and out of pocket have likely been met as pt spent 5 weeks in the hospital(between hospital and rehab stay), and a week in a fpc. Daughter thought this could be helpful for to know. is to be here, as per daughter, she states she may be in waiting room. SW checked waiting room, is indeed in the waiting room, SW introduced self to , brought her back to the room. SW explained to can call pt's insurance to check on deductible and out of pocket. She states pt has Medicaid now, and seems assured that pt will be well covered for whatever he needs. SW called our financial dept, Lili was able to look it up and pt does have Medicaid, # is [id number]. SW will continue to follow, remains available for any supportive needs to family. SW did look in the summary tab of the echart, pt has both LW and POA forms. is listed as POA and daughter Deepa as alternate. SW printed LW/POA forms and will place them in the paper chart. ARLYN Lala
[2019-03-06] MEDS: fentaNYL drip 100 ML 20 MCG IV (10:50)
[2019-03-06] MEDS: LORazepam 2 MG/ML Syringe IV ×3 (11:18→16:14)
[2019-03-06 12:25] LABS: Bedside Glucose 271 mg/dL (70-110)
[2019-03-06 12:33] LABS: Partial Thromboplast Time 42.8 Seconds (24.1-36.2)
--- NOTE | 2019-03-06 12:52 | PCM.PN.CARD ---
Subjectve: Patient seen and examined this morning. At the time of my examination the patient was on propofol and fentanyl drip and was mildly hypotensive with systolic pressures in the low 100s. Balloon pump was at 1-1 and augmenting well. Right groin is clean/dry/intact without evidence of thrills, bruits or hematoma. The patient had 1+ DP and PT pulses with 1+ bilateral lower extremity edema. Hemoglobin and creatinine are still within nominal limits. EKG shows normal sinus rhythm with resolving inferior and posterior wall myocardial infarction. Approximately 1500 cc net negative urine output. Objective: Vital Signs Temp Pulse Resp BP Pulse Ox 98.7 F 54 L 16 103/60 99 03/06/19 12:00 03/06/19 12:00 03/06/19 12:00 03/06/19 12:00 03/06/19 12:00 Oxygen Flow Rate (L/min) 15 Oxygen Delivery Method Mechanical Ventilator Weight: 226 lb Body Mass Index (BMI) 26.4 Finger Stick Blood Glucose 122 Intake and Output for Last 24 Hours 03/04/19 03/05/19 03/06/19 23:59 23:59 23:59 Intake Total 198.85 / 302.98 554.81 / 554.81 Output Total 150 / 600 1850 / 1850 Balance 48.85 / -297.02 -1295.19 / -1295.19 General: Awake, Alert, Oriented x 3 HEENT: PERRL, EOMI, Sclera Non Icteric Neck: Supple, Good ROM, No Lymph Node Enlargement Lungs: Clear to auscultation Cardiovascular: Regular Rhythm, Normal S1, Normal S2, No Murmurs, No Rubs, No Gallops Vascular: No Carotid Bruits, Normal Femoral Pulses, Normal Radial Pulses, Normal Dorsalis Pedal Pulse, Normal Posterior Tibial Pulses Abdomen: Bowel Sounds Present, Soft, Non Tender, No HSM, No Organomegaly Extremities: No Cyanosis, No Clubbing, No edema Neurological: No Focal Motor or Sensory Deficit 03/05/19 09:55: PT 14.3, INR 1.1, APTT 28.3 03/05/19 10:39: pH 7.19 L*, Bicarbonate Actual 30.0 H, POC Total CO2 32, Base Excess 2, O2 Saturation 96, ABG pCO2 79.4 H*, ABG pO2 110 H 03/05/19 11:45: pH 7.21 L, Bicarbonate Actual 29.9 H, POC Total CO2 32, Base Excess 2, O2 Saturation 100 H, ABG pCO2 75.5 H*, ABG pO2 359 H* 03/05/19 14:00: Troponin I 61.000 H* 03/05/19 14:00: Triglycerides 68 03/05/19 16:25: Troponin I 111.500 H* 03/05/19 16:26: pH 7.39, Bicarbonate Actual 26.9 H, POC Total CO2 28, Base Excess 2, O2 Saturation 96, ABG pCO2 44.2, ABG pO2 82 03/05/19 19:15: APTT 131.2 H* 03/05/19 23:30: APTT 42.3 H 03/06/19 05:25: WBC 15.2 H, RBC 4.33 L, Hgb 12.9 L, Hct 37.2 L, MCV 85.9, MCH 29.8, MCHC 34.7, Plt Count 147 L, MPV 12.3 H 03/06/19 05:25: Sodium 139, Potassium 3.7, Chloride 101, Carbon Dioxide 29.0, Anion Gap 9, BUN 33 H, Creatinine 1.97 H, Est GFR (MDRD) Af Amer 45 L, Est GFR (MDRD) Non-Af 37 L, BUN/Creatinine Ratio 16.8, Glucose 261 H, Calcium 8.4 L, Total Bilirubin 0.80 03/06/19 05:25: APTT 42.2 H 03/06/19 12:00: APTT 42.8 H Rhythm: EKG: ECHO: Showed LVEF around 15 to 20% with severe inferior/posterior hypokinesis, and moderate anterior hypokinesis which was present on recent echocardiogram from January 2019. RVSP of 25 mmHg but may be underestimated. Stress Test: Cardiac Cath: PCI: CT Surgery: Holter monitor: EPS: PPM: CXR: Chest CT Scan: Medical Necessity - Tobacco Use Smoking Status: Unknown if ever smoked Tobacco Use: Non-smoker Assessment/Plan 1. Coronary artery disease: The patient presented with what appeared to be acute inferior and true posterior wall myocardial infarction and underwent emergent angioplasty and drug-eluting stenting x4 to the right coronary artery/PDA on 03/05/2019. In addition the patient has severe multivessel coronary disease including his left main, LAD, left circumflex and several of the main branches. He has severe LV dysfunction with an EF of 35% in January 2019 at which time he had a CVA, and now his ejection fraction is reduced to 15 to 20% in light of his recent myocardial infarction. I would recommend the patient continue his intrinsic balloon pump at least for another 24 hours, and reassess whether he is able to come off of it on its own. Ideally one would recommend extubation with the balloon pump in place in order to determine if the patient's respiratory status is able to operate without the assistance of the balloon pump. If this is not possible, and if the patient demonstrates inability to obey commands, and may be better to remove the balloon pump first to avoid possible arterial damage while the patient is being extubated. I discussed this with Dr. Chavarria. Patient will be changed from propofol/fentanyl to Precedex in order to improve his blood pressure as well as to improve his mental awareness Kochan for extubation. In the meantime he will continue his Coreg, losartan, we will add Lasix 40 mg IV daily to optimize his pulmonary pressures and LV dysfunction, and would recommend switching him to hydralazine from those are if his creatinine goes above 2.0. In addition he will continue his baby aspirin and Brilinta. 2. Intrinsic balloon pump: The patient is augmenting well currently on 1: 1, and would recommend downgrading it to 1: 2 later this afternoon. If the patient continues to augment well on this reduced frequency, we will then proceed with extubation and eventual balloon pump removal tomorrow morning. He will need to continue his heparin drip to maintain his PTT between 50?70. 3. Hyperlipidemia: Continue antilipid therapy. 4. Coronary corrective measures going forward: I had a long thorough discussion with the patient's family yesterday and described to them the complexity of his coronary disease located in his left main, LAD and left circumflex. I would not recommend proceeding with intervention at this time as this would be very high risk and if he was not a surgical candidate, and is currently DNR, that would be very problematic for corrective measures. My suspicion is is that we will most likely proceed with medical management of his remaining coronary arteries given his severe LV dysfunction, recent CVA, and now this more recent myocardial infarction. Any attempted intervention would have to have his DNR suspended, and he would have to be deemed a surgical candidate prior to that should there be a critical complication during his intervention. Patient's family has agreed, and all questions have been answered. Prior to his intervention, we were unaware of his DNR status at the assisted, but this is now been re-invoked going forward. 5. Discussed with Dr. Chavarria. Thank you very much for the opportunity to participate in the cardiac care of your patient. Code Visit Inpatient E&M: 47297 Subs Hosp L2
[2019-03-06] MEDS: fentaNYL drip 100 ML 17.5 MCG IV (16:27)
[2019-03-06] MEDS: HEPARIN/D5w 25,000 UNITS 25,000 UNITS/250 ML IV.SOLN. 10 UNITS IV (17:04)
[2019-03-06 17:31] LABS: Bedside Glucose 286 mg/dL (70-110)
[2019-03-06 19:51] LABS: Partial Thromboplast Time 67.9 Seconds (24.1-36.2)
[2019-03-06] MEDS: Atorvastatin Calcium 80 MG Tablet PO (22:35)
[2019-03-06] MEDS: fentaNYL drip 100 ML 15 MCG IV (23:59)
[2019-03-07] VITALS (40 sets, daily range): BP systolic 86–185; BP diastolic 51–103; PULSE 52–92; RESP 12–37; TEMP 36.1–37.3; O2SAT 91–100
[2019-03-07] MEDS: Insulin Lispro 100 UNIT/ML INSULN.PEN SC ×4 (00:02→17:57)
[2019-03-07] MEDS: Ipratropium/Albuterol Sulfate 3 ML AMPUL.NEB INHALATION ×4 (00:30→18:41)
[2019-03-07 00:56] LABS: Bedside Glucose 303 mg/dL (70-110)
[2019-03-07 02:31] LABS: Absolute Lymphocyte Count 1.07 X10^3/uL (0.83-4.51); Absolute Neutrophil Count 11.3 X10^3/uL (2.0-7.7); Basophil# 0.03 X10^3/uL; Basophil% 0.2 % (0-1); Eosinophil# 0.08 X10^3/uL; Eosinophils% 0.6 % (0-5); Hematocrit 35.6 % (40-54); Hemoglobin 12.3 g/dL (13.0-16.5); Lymphocyte # 1.07 X10^3/ul (4.0); Lymphocyte % 7.8 % (19-41); Mean Corp Hgb Conc 34.6 g/dL (32-36); Mean Corpuscular Hgb 29.8 pg (27.0-32.0); Mean Corpuscular Volume 86.2 fL (80-94); Monocyte# 1.11 X10^3/uL; Monocyte% 8.1 % (0-10); NRBC Flagged by Analyzer 0 % (0-5); Neutrophil # 11.29 X10^3/uL (2.7-7.7); Neutrophil % 82.4 % (47-70); Platelet Count 139 K/mm3 (150-450); RBC Distribution Width CV 13.2 % (11.6-14.6); RBC Distribution Width SD 40.7 fl (35.1-43.9); Red Blood Count 4.13 M/mm3 (4.6-6.2); White Blood Count 13.7 K/mm3 (4.4-11.0)
[2019-03-07 02:42] LABS: Partial Thromboplast Time 54.6 Seconds (24.1-36.2)
[2019-03-07 02:45] LABS: BUN 33 mg/dL (7-18); BUN/Creat Ratio 17.1 RATIO (10-20); Calcium,Total 8.6 mg/dL (8.5-10.1); Chloride 100 mmol/L (98-107); Creatinine, Serum 1.93 mg/dL (0.70-1.30); EST Glomerular Filtration Rate 38 mL/min (>60); Est Glom Filt Rate - Afr Amer 46 mL/min (>60); Estimated Creatinine Clearance 47.32 ml/min; Glucose 302 mg/dL (74-106); Phosphorus 2.8 mg/dL (2.5-4.9); Potassium 3.4 mmol/L (3.5-5.1); Sodium Level 139 mmol/L (136-145)
--- NOTE | 2019-03-07 04:06 | RAD_ITS ---
STUDY: X-RAY CHEST REASON FOR EXAM: Male, 58 years old. Balloon position. TECHNIQUE: Single AP portable view of the chest. COMPARISON: 03/06/2019. FINDINGS: The endotracheal tube has the tip approximately 4.6 cm above tray. There is a nasogastric tube with the tip below the diaphragm but not included in the [id number]. There is an aortic catheter with the tip projecting the lung projecting over the aortic knob. The lungs are clear and expanded. There is no demonstrated pleural abnormality. Normal size heart. Normal mediastinum and ella. Normal visualized pulmonary arteries. There is atherosclerotic calcification of the aortic arch with tortuosity. There is demineralization of the osseous structures. There is degenerative osteoarthritis of the bilateral shoulders. There is no demonstrated abnormality of the visualized soft tissue structures of the upper abdomen. RAD/Chest 1 View (Portable) IMPRESSION: Lines and tubes as described above. No acute interval change. Electronically Signed: Soraya Cook MD at 5:22 EST , Service support ,
[2019-03-07 06:41] LABS: Bedside Glucose 299 mg/dL (70-110)
[2019-03-07 07:05] LABS: Base Excess 6 mmol/L (-2 to +2); Bicarbonate 29.5 mmol/L (22-26); Blood Gas Specimen Type ART; FI02 25; Mode CPAP PS; O2 Delivery Device Vent; PEEP 5; PO2 71 mmHG (75-100); PS 5; SITE L Radial; SO2 95 % (95-99); Time Given 701; Total Carbon Dioxide 31 mmol/L; pCO2 38.4 mmHg (35-45); pH 7.49 (7.35-7.45)
--- NOTE | 2019-03-07 07:12 | PCM.PN.INT ---
Subjective: Patient did okay overnight. Patient had tolerated transition to Precedex therapy. Glucose had been a little bit elevated, but patient has remained hemodynamically stable on minimal FiO2 requirements. Patient was able to undergo a spontaneous breathing trial this morning and will be extubated shortly. General: Alert, Cooperative, No apparent distress, - - Still impulsive, but directable. HEENT: Atraumatic, PERRLA, EOMI, Normocephalic, - - Slight scleral injection without icterus Oral: Moist Mucosa, No Gingival or Mucosal Lesions/ Ulcerations Neck: Supple, No JVD, No Nodes, Trachea Midline Lungs: No rhonchi, No wheeze, No rales, Diminished, - - Symmetric expansion. No dullness to percussion. Cardiovascular: Regular rate, Regular Rhythm, Normal S1, Normal S2, No murmurs, No rub noted, No Gallop Abdomen: Bowel Sounds Present, Soft, Non Tender, Non-Distended Extremities: No clubbing, No cyanosis, Edema - Bilateral pedal Skin: No rashes, No breakdown, - - Multiple tattoos noted. Alopecia. Musculoskeletal: No Tenderness to Palpation of Joints or Extremities Lymphatic: No Cervical, Supraclavicular, or Inguinal Adenopathy Neurological: Cranial nerves II-XII grossly intact, Neuro grossly intact Psych/Mental Status: Flat Affect, Impulsive Vital Signs Temp Pulse Resp BP Pulse Ox 37.3 C 61 13 114/64 100 03/07/19 07:00 03/07/19 07:00 03/07/19 07:00 03/07/19 07:00 03/07/19 07:00 Oxygen Flow Rate (L/min) 15 Oxygen Delivery Method Mechanical Ventilator Weight: 92.4 kg Body Mass Index (BMI) 26.4 Finger Stick Blood Glucose 122 Intake and Output for Last 24 Hours 03/05/19 03/06/19 03/07/19 23:59 23:59 23:59 Intake Total 198.85 / 302.98 1359.80 / 1381.75 247.47 / 247.47 Output Total 150 / 600 2767 / 2767 195 / 195 Balance 48.85 / -297.02 -1407.20 / -1385.25 52.47 / 52.47 Labs (Last 48 Hours) 03/05/19 03/05/19 03/05/19 09:55 09:55 09:55 WBC 12.7 H RBC 5.13 Hgb 15.3 Hct 45.2 MCV 88.1 MCH 29.8 MCHC 33.8 RDW Std Deviation 42.5 RDW Coeff of Jr 13.2 Plt Count 187 MPV 12.9 H Immature Gran % (Auto) 2.000 H Neut % (Auto) 73.4 H Lymph % (Auto) 14.7 L [place] % (Auto) 6.2 Eos % (Auto) 3.0 Baso % (Auto) 0.7 Absolute Neuts (auto) 9.3 H Absolute Lymphs (auto) 1.87 Nucleated RBC % 0 PT 14.3 INR 1.1 APTT 28.3 Activated Clotting Time Specimen Type Sample Site pH Bicarbonate Actual POC Total CO2 Base Excess O2 Saturation O2 % ABG pCO2 ABG pO2 Respiration Rate O2 Delivery Device Minute Volume Vent Mode Tidal Volume POC PEEP POC Pressure Suppt Blood Gas Notified Whom Blood Gas Notified Time Sodium 139 Potassium 3.8 Chloride 101 Carbon Dioxide 31.0 Anion Gap 7 BUN 30 H Creatinine 1.77 H Estim Creat Clear Calc 51.60 Est GFR (MDRD) Af Amer 51 L Est GFR (MDRD) Non-Af 42 L BUN/Creatinine Ratio 16.9 Glucose 316 H Calcium 9.2 Phosphorus Total Bilirubin AST ALT Alkaline Phosphatase Total Creatine Kinase Troponin I 0.124 H Total Protein Albumin Globulin Albumin/Globulin Ratio Triglycerides POC Glucose 03/05/19 03/05/19 03/05/19 10:33 10:39 11:39 WBC RBC Hgb Hct MCV MCH MCHC RDW Std Deviation RDW Coeff of Jr Plt Count MPV Immature Gran % (Auto) Neut % (Auto) Lymph % (Auto) [place] % (Auto) Eos % (Auto) Baso % (Auto) Absolute Neuts (auto) Absolute Lymphs (auto) Nucleated RBC % PT INR APTT Activated Clotting Time 186 H 307 H Specimen Type ART Sample Site pH 7.19 L* Bicarbonate Actual 30.0 H POC Total CO2 32 Base Excess 2 O2 Saturation 96 O2 % ABG pCO2 79.4 H* ABG pO2 110 H Respiration Rate O2 Delivery Device Minute Volume Vent Mode Tidal Volume POC PEEP POC Pressure Suppt Blood Gas Notified Whom Blood Gas Notified Time Sodium Potassium Chloride Carbon Dioxide Anion Gap BUN Creatinine Estim Creat Clear Calc Est GFR (MDRD) Af Amer Est GFR (MDRD) Non-Af BUN/Creatinine Ratio Glucose Calcium Phosphorus Total Bilirubin AST ALT Alkaline Phosphatase Total Creatine Kinase Troponin I Total Protein Albumin Globulin Albumin/Globulin Ratio Triglycerides POC Glucose 03/05/19 03/05/19 03/05/19 11:45 14:00 14:00 WBC RBC Hgb Hct MCV MCH MCHC RDW Std Deviation RDW Coeff of Jr Plt Count MPV Immature Gran % (Auto) Neut % (Auto) Lymph % (Auto) [place] % (Auto) Eos % (Auto) Baso % (Auto) Absolute Neuts (auto) Absolute Lymphs (auto) Nucleated RBC % PT INR APTT Activated Clotting Time Specimen Type ART Sample Site OTHER pH 7.21 L Bicarbonate Actual 29.9 H POC Total CO2 32 Base Excess 2 O2 Saturation 100 H O2 % 100 ABG pCO2 75.5 H* ABG pO2 359 H* Respiration Rate 12 O2 Delivery Device Vent Minute Volume Vent Mode A-C Tidal Volume 500 POC PEEP 5 POC Pressure Suppt Blood Gas Notified Whom OTHER Blood Gas Notified Time Sodium Potassium Chloride Carbon Dioxide Anion Gap BUN Creatinine Estim Creat Clear Calc Est GFR (MDRD) Af Amer Est GFR (MDRD) Non-Af BUN/Creatinine Ratio Glucose Calcium Phosphorus Total Bilirubin AST ALT Alkaline Phosphatase Total Creatine Kinase 2271 H Troponin I 61.000 H* Total Protein Albumin Globulin Albumin/Globulin Ratio Triglycerides 68 POC Glucose 03/05/19 03/05/19 03/05/19 16:25 16:26 17:39 WBC RBC Hgb Hct MCV MCH MCHC RDW Std Deviation RDW Coeff of Jr Plt Count MPV Immature Gran % (Auto) Neut % (Auto) Lymph % (Auto) [place] % (Auto) Eos % (Auto) Baso % (Auto) Absolute Neuts (auto) Absolute Lymphs (auto) Nucleated RBC % PT INR APTT Activated Clotting Time Specimen Type LINDY Sample Site OTHER pH 7.39 Bicarbonate Actual 26.9 H POC Total CO2 28 Base Excess 2 O2 Saturation 96 O2 % 30 ABG pCO2 44.2 ABG pO2 82 Respiration Rate 16 O2 Delivery Device Vent Minute Volume 8.00 Vent Mode A-C Tidal Volume 500 POC PEEP 5 POC Pressure Suppt Blood Gas Notified Whom ICU MD Blood Gas Notified Time 1624 Sodium Potassium Chloride Carbon Dioxide Anion Gap BUN Creatinine Estim Creat Clear Calc Est GFR (MDRD) Af Amer Est GFR (MDRD) Non-Af BUN/Creatinine Ratio Glucose Calcium Phosphorus Total Bilirubin AST ALT Alkaline Phosphatase Total Creatine Kinase Troponin I 111.500 H* Total Protein Albumin Globulin Albumin/Globulin Ratio Triglycerides POC Glucose 283 H 03/05/19 03/05/19 03/05/19 19:15 23:25 23:30 WBC RBC Hgb Hct MCV MCH MCHC RDW Std Deviation RDW Coeff of Jr Plt Count MPV Immature Gran % (Auto) Neut % (Auto) Lymph % (Auto) [place] % (Auto) Eos % (Auto) Baso % (Auto) Absolute Neuts (auto) Absolute Lymphs (auto) Nucleated RBC % PT INR APTT 131.2 H* 42.3 H Activated Clotting Time Specimen Type Sample Site pH Bicarbonate Actual POC Total CO2 Base Excess O2 Saturation O2 % ABG pCO2 ABG pO2 Respiration Rate O2 Delivery Device Minute Volume Vent Mode Tidal Volume POC PEEP POC Pressure Suppt Blood Gas Notified Whom Blood Gas Notified Time Sodium Potassium Chloride Carbon Dioxide Anion Gap BUN Creatinine Estim Creat Clear Calc Est GFR (MDRD) Af Amer Est GFR (MDRD) Non-Af BUN/Creatinine Ratio Glucose Calcium Phosphorus Total Bilirubin AST ALT Alkaline Phosphatase Total Creatine Kinase Troponin I Total Protein Albumin Globulin Albumin/Globulin Ratio Triglycerides POC Glucose 254 H 03/06/19 03/06/19 03/06/19 05:16 05:25 05:25 WBC 15.2 H RBC 4.33 L Hgb 12.9 L Hct 37.2 L MCV 85.9 MCH 29.8 MCHC 34.7 RDW Std Deviation 40.6 RDW Coeff of Jr 13.1 Plt Count 147 L MPV 12.3 H Immature Gran % (Auto) Neut % (Auto) Lymph % (Auto) [place] % (Auto) Eos % (Auto) Baso % (Auto) Absolute Neuts (auto) Absolute Lymphs (auto) Nucleated RBC % PT INR APTT Activated Clotting Time Specimen Type Sample Site pH Bicarbonate Actual POC Total CO2 Base Excess O2 Saturation O2 % ABG pCO2 ABG pO2 Respiration Rate O2 Delivery Device Minute Volume Vent Mode Tidal Volume POC PEEP POC Pressure Suppt Blood Gas Notified Whom Blood Gas Notified Time Sodium 139 Potassium 3.7 Chloride 101 Carbon Dioxide 29.0 Anion Gap 9 BUN 33 H Creatinine 1.97 H Estim Creat Clear Calc 46.36 Est GFR (MDRD) Af Amer 45 L Est GFR (MDRD) Non-Af 37 L BUN/Creatinine Ratio 16.8 Glucose 261 H Calcium 8.4 L Phosphorus Total Bilirubin 0.80 AST 273 H ALT 58 Alkaline Phosphatase 75 Total Creatine Kinase Troponin I Total Protein 6.2 L Albumin 3.1 L Globulin 3.1 Albumin/Globulin Ratio 1.0 Triglycerides POC Glucose 260 H 03/06/19 03/06/19 03/06/19 05:25 12:00 12:18 WBC RBC Hgb Hct MCV MCH MCHC RDW Std Deviation RDW Coeff of Jr Plt Count MPV Immature Gran % (Auto) Neut % (Auto) Lymph % (Auto) [place] % (Auto) Eos % (Auto) Baso % (Auto) Absolute Neuts (auto) Absolute Lymphs (auto) Nucleated RBC % PT INR APTT 42.2 H 42.8 H Activated Clotting Time Specimen Type Sample Site pH Bicarbonate Actual POC Total CO2 Base Excess O2 Saturation O2 % ABG pCO2 ABG pO2 Respiration Rate O2 Delivery Device Minute Volume Vent Mode Tidal Volume POC PEEP POC Pressure Suppt Blood Gas Notified Whom Blood Gas Notified Time Sodium Potassium Chloride Carbon Dioxide Anion Gap BUN Creatinine Estim Creat Clear Calc Est GFR (MDRD) Af Amer Est GFR (MDRD) Non-Af BUN/Creatinine Ratio Glucose Calcium Phosphorus Total Bilirubin AST ALT Alkaline Phosphatase Total Creatine Kinase Troponin I Total Protein Albumin Globulin Albumin/Globulin Ratio Triglycerides POC Glucose 271 H 03/06/19 03/06/19 03/06/19 17:02 18:50 19:30 WBC RBC Hgb Hct MCV MCH MCHC RDW Std Deviation RDW Coeff of Jr Plt Count MPV Immature Gran % (Auto) Neut % (Auto) Lymph % (Auto) [place] % (Auto) Eos % (Auto) Baso % (Auto) Absolute Neuts (auto) Absolute Lymphs (auto) Nucleated RBC % PT INR APTT Cancelled 67.9 H Activated Clotting Time Specimen Type Sample Site pH Bicarbonate Actual POC Total CO2 Base Excess O2 Saturation O2 % ABG pCO2 ABG pO2 Respiration Rate O2 Delivery Device Minute Volume Vent Mode Tidal Volume POC PEEP POC Pressure Suppt Blood Gas Notified Whom Blood Gas Notified Time Sodium Potassium Chloride Carbon Dioxide Anion Gap BUN Creatinine Estim Creat Clear Calc Est GFR (MDRD) Af Amer Est GFR (MDRD) Non-Af BUN/Creatinine Ratio Glucose Calcium Phosphorus Total Bilirubin AST ALT Alkaline Phosphatase Total Creatine Kinase Troponin I Total Protein Albumin Globulin Albumin/Globulin Ratio Triglycerides POC Glucose 286 H 03/07/19 03/07/19 03/07/19 00:01 02:15 02:15 WBC 13.7 H RBC 4.13 L Hgb 12.3 L Hct 35.6 L MCV 86.2 MCH 29.8 MCHC 34.6 RDW Std Deviation 40.7 RDW Coeff of Jr 13.2 Plt Count 139 L MPV 13.0 H Immature Gran % (Auto) 0.900 Neut % (Auto) 82.4 H Lymph % (Auto) 7.8 L [place] % (Auto) 8.1 Eos % (Auto) 0.6 Baso % (Auto) 0.2 Absolute Neuts (auto) 11.3 H Absolute Lymphs (auto) 1.07 Nucleated RBC % 0 PT INR APTT Activated Clotting Time Specimen Type Sample Site pH Bicarbonate Actual POC Total CO2 Base Excess O2 Saturation O2 % ABG pCO2 ABG pO2 Respiration Rate O2 Delivery Device Minute Volume Vent Mode Tidal Volume POC PEEP POC Pressure Suppt Blood Gas Notified Whom Blood Gas Notified Time Sodium 139 Potassium 3.4 L Chloride 100 Carbon Dioxide 29.0 Anion Gap BUN 33 H Creatinine 1.93 H Estim Creat Clear Calc 47.32 Est GFR (MDRD) Af Amer 46 L Est GFR (MDRD) Non-Af 38 L BUN/Creatinine Ratio 17.1 Glucose 302 H Calcium 8.6 Phosphorus 2.8 Total Bilirubin AST ALT Alkaline Phosphatase Total Creatine Kinase Troponin I Total Protein Albumin 3.0 L Globulin Albumin/Globulin Ratio Triglycerides POC Glucose 303 H 03/07/19 03/07/19 03/07/19 02:15 06:20 07:03 WBC RBC Hgb Hct MCV MCH MCHC RDW Std Deviation RDW Coeff of Jr Plt Count MPV Immature Gran % (Auto) Neut % (Auto) Lymph % (Auto) [place] % (Auto) Eos % (Auto) Baso % (Auto) Absolute Neuts (auto) Absolute Lymphs (auto) Nucleated RBC % PT INR APTT 54.6 H Activated Clotting Time Specimen Type ART Sample Site L Radial pH 7.49 H Bicarbonate Actual 29.5 H POC Total CO2 31 Base Excess 6 H O2 Saturation 95 O2 % 25 ABG pCO2 38.4 ABG pO2 71 L Respiration Rate O2 Delivery Device Vent Minute Volume Vent Mode CPAP PS Tidal Volume POC PEEP 5 POC Pressure Suppt 5 Blood Gas Notified Whom ICU Blood Gas Notified Time 701 Sodium Potassium Chloride Carbon Dioxide Anion Gap BUN Creatinine Estim Creat Clear Calc Est GFR (MDRD) Af Amer Est GFR (MDRD) Non-Af BUN/Creatinine Ratio Glucose Calcium Phosphorus Total Bilirubin AST ALT Alkaline Phosphatase Total Creatine Kinase Troponin I Total Protein Albumin Globulin Albumin/Globulin Ratio Triglycerides POC Glucose 299 H Microbiology 03/06/19 09:50 Sputum, Induced/Lukens Gram Stain - Final Clinical Impression(s) from Imaging Studies Chest X-Ray 03/07/19 04:06 IMPRESSION: Lines and tubes as described above. No acute interval change. Electronically Signed: Soraya Cook MD at 5:22 EST , Service support , Medical Necessity - Tobacco Use Smoking Status: Unknown if ever smoked Tobacco Use: Non-smoker Assessment/Plan All Active Problems (Last Updated 03/06/19 @ 08:39 by Chelsea Lomax) STEMI (ST elevation myocardial infarction) (Acute 03/05/19) Syncope and collapse (Acute) Syncope (Acute) Bradycardia (Acute) RECOMMENDATIONS: 1. Cardiac optimization per cardiology 2. Defer to cardiology on intra-aortic balloon pump weaning 3. Extubation later this morning under my direct supervision 4. Bedside swallow evaluation prior to p.o. intake 5. Monitor for malignant ectopy 6. Transition to PPI twice daily IMPRESSIONS: 1. Cardiogenic shock secondary to ST elevation HI with RCA stenting Patient with multiple coronary artery lesions and a progressive loss of EF from 60% to 15 - 20% in a relatively short time. Patient currently has an intra-aortic balloon pump in place. Patient has responded well to transition to Precedex therapy. Anticipate continuing Precedex to facilitate intra-aortic balloon pump after extubation. Patient is on appropriate antiplatelet therapy. We will continue to monitor. 2. Acute hypoxic respiratory failure secondary to probable acute CHF secondary to #1 Patient's chest x-ray looks to be more appropriate today. Supportive devices are in appropriate position. Patient is qualified for liberation from the ventilator by spontaneous breathing trial. We will continue with Precedex to facilitate IABP. Patient can continue to get DuoNeb therapy. 3. Acute blood loss anemia secondary to upper GI bleed Patient reportedly with large bloody removal from the OG on placement. Unclear if this is related to an ulcer versus stress gastritis in the setting of anticoagulation. Patient just had a new bag of Protonix on. This will be today's dose. Patient will then be transitioned to IV twice daily tomorrow. If able to tolerate p.o., this could be transition to p.o. 40 mg twice daily from my perspective. 4. Recent CVA/hypertension/CKD stage III/chronic pain/uncontrolled diabetes mellitus Complicates care, management, recovery and prognosis. Patient will need a bedside swallow prior to initiation of p.o. diet. Will need to watch blood sugars closely. Renal function appears to be doing okay at this time. Patient is on a fentanyl drip. TIME: 32 minutes of critical care time spent addressing patient's cardiogenic shock, acute hypoxic respiratory failure, acute blood loss anemia, diabetes mellitus, review of all data and collaboration with care team (6 AM to 7 AM) Code Visit [id number]: [id number] Critical care first hour
[2019-03-07 08:36] LABS: Partial Thromboplast Time 48.3 Seconds (24.1-36.2)
--- NOTE | 2019-03-07 09:43 | PCM.PN.CARD ---
Subjectve: Patient successfully extubated today, doing fairly well on Precedex drip. Indurated balloon pump at 1: 1, reduce to 1: 2 for approximately 1 hours time with no interim change in his medical condition. Balloon pump replaced at 1: 1, and heparin drip discontinued. We will obtain an ACT in 1 hours time and remove balloon pump if ACT less than 170 seconds. Telemetry overnight showed normal sinus rhythm with rare PVC. EKG shows normal sinus rhythm, resolving inferior posterior Myocardial infarction. Hemoglobin and creatinine are within nominal limits. Objective: Vital Signs Temp Pulse Resp BP Pulse Ox 98.2 F 64 18 147/79 H 95 03/07/19 09:00 03/07/19 09:00 03/07/19 09:00 03/07/19 09:00 03/07/19 09:00 Oxygen Flow Rate (L/min) 2 Oxygen Delivery Method Nasal Cannula Weight: 203 lb 11.314 oz Body Mass Index (BMI) 26.4 Finger Stick Blood Glucose 122 Intake and Output for Last 24 Hours 03/05/19 03/06/19 03/07/19 23:59 23:59 23:59 Intake Total 198.85 / 302.98 1359.80 / 1381.75 306.28 / 306.28 Output Total 150 / 600 2767 / 2767 225 / 225 Balance 48.85 / -297.02 -1407.20 / -1385.25 81.28 / 81.28 General: Awake, Alert, Oriented x 3 HEENT: PERRL, EOMI, Sclera Non Icteric Neck: Supple, Good ROM, No Lymph Node Enlargement Lungs: Clear to auscultation Cardiovascular: Regular Rhythm, Normal S1, Normal S2, No Murmurs, No Rubs, No Gallops Vascular: No Carotid Bruits, Normal Femoral Pulses, Normal Radial Pulses, Normal Dorsalis Pedal Pulse, Normal Posterior Tibial Pulses Abdomen: Bowel Sounds Present, Soft, Non Tender, No HSM, No Organomegaly Extremities: No Cyanosis, No Clubbing, No edema Neurological: No Focal Motor or Sensory Deficit 03/06/19 12:00: APTT 42.8 H 03/06/19 18:50: APTT Cancelled 03/06/19 19:30: APTT 67.9 H 03/07/19 02:15: WBC 13.7 H, RBC 4.13 L, Hgb 12.3 L, Hct 35.6 L, MCV 86.2, MCH 29.8, MCHC 34.6, Plt Count 139 L, MPV 13.0 H, Immature Gran % (Auto) 0.900, Neut % (Auto) 82.4 H, Lymph % (Auto) 7.8 L, [place] % (Auto) 8.1, Eos % (Auto) 0.6, Baso % (Auto) 0.2, Absolute Neuts (auto) 11.3 H, Nucleated RBC % 0 03/07/19 02:15: Sodium 139, Potassium 3.4 L, Chloride 100, Carbon Dioxide 29.0, BUN 33 H, Creatinine 1.93 H, Est GFR (MDRD) Af Amer 46 L, Est GFR (MDRD) Non-Af 38 L, BUN/Creatinine Ratio 17.1, Glucose 302 H, Calcium 8.6, Phosphorus 2.8 03/07/19 02:15: APTT 54.6 H 03/07/19 07:03: pH 7.49 H, Bicarbonate Actual 29.5 H, POC Total CO2 31, Base Excess 6 H, O2 Saturation 95, ABG pCO2 38.4, ABG pO2 71 L 03/07/19 08:00: APTT 48.3 H Rhythm: EKG: ECHO: Stress Test: Cardiac Cath: PCI: CT Surgery: Holter monitor: EPS: PPM: CXR: Chest CT Scan: Medical Necessity - Tobacco Use Smoking Status: Unknown if ever smoked Tobacco Use: Non-smoker Assessment/Plan 1. Coronary artery disease: The patient presented with what appeared to be acute inferior and true posterior wall myocardial infarction and underwent emergent angioplasty and drug-eluting stenting x4 to the right coronary artery/PDA on 03/05/2019. In addition the patient has severe multivessel coronary disease including his left main, LAD, left circumflex and several of the main branches. He has severe LV dysfunction with an EF of 35% in January 2019 at which time he had a CVA, and now his ejection fraction is reduced to 15 to 20% in light of his recent myocardial infarction. Patient was successfully extubated today but is still on Precedex. He appears to be obeying commands and is hemodynamically stable. His balloon pump weaning is in progress. If he is able to maintain his blood pressure and respiratory status, we will remove his balloon pump around 10 AM this morning if his ACT is less than 170. Balloon pump at 1: 1 until ACT is obtained. In the meantime he will continue his Coreg, losartan, we will add Lasix 40 mg IV daily to optimize his pulmonary pressures and LV dysfunction, and would recommend switching him to hydralazine from those are if his creatinine goes above 2.0. In addition he will continue his baby aspirin and Brilinta. 2. Intra-aortic balloon pump weaning in progress. 3. Hyperlipidemia: Continue antilipid therapy. 4. Coronary corrective measures going forward: I had a long thorough discussion with the patient's family yesterday and described to them the complexity of his coronary disease located in his left main, LAD and left circumflex. I would not recommend proceeding with intervention at this time as this would be very high risk and if he was not a surgical candidate, and is currently DNR, that would be very problematic for corrective measures. My suspicion is is that we will most likely proceed with medical management of his remaining coronary arteries given his severe LV dysfunction, recent CVA, and now this more recent myocardial infarction. Any attempted intervention would have to have his DNR suspended, and he would have to be deemed a surgical candidate prior to that should there be a critical complication during his intervention. Patient's family has agreed, and all questions have been answered. Prior to his intervention, we were unaware of his DNR status at the correction, but this is now been re-invoked going forward. Patient is currently DNR. 5. Discussed with Dr. Chavarria. Thank you very much for the opportunity to participate in the cardiac care of your patient. Balloon pump removal to follow. Code Visit Inpatient E&M: 91577 Subs Hosp L2
--- NOTE | 2019-03-07 10:00 | EKG12_ITS ---
Test Reason : AM Blood Pressure : / mmHG Vent. Rate : 063 BPM Atrial Rate : 063 BPM P-R Int : 158 ms QRS Dur : 114 ms QT Int : 574 ms P-R-T Axes : 045 022 132 degrees QTc Int : 587 ms Normal sinus rhythm Inferior-posterior infarct , possibly acute Prolonged QT * ACUTE FL Consider right ventricular involvement in acute inferior infarct Abnormal ECG When compared with ECG of 06-MAR-2019 04:48, MANUAL COMPARISON REQUIRED, DATA IS UNCONFIRMED Confirmed by CALISTA PEARCE ([id number]), acquisition editor LINDSAY ABBASI ([id number]) on 03/19/2019 10:47:28 AM Referred By: Calista Pearce Confirmed By:CALISTA PEARCE
[2019-03-07] MEDS: LORazepam 2 MG/ML Syringe IV (10:06)
[2019-03-07] MEDS: Potassium Chloride 10mEq/100mL 10 MEQ/100 ML IV.SOLN. 100 MEQ IV BOLUS ×4 (10:07→13:27)
[2019-03-07] MEDS: Furosemide 40 MG/4 ML Vial IV (10:07)
[2019-03-07] MEDS: 0.9% Saline Lock 10 ML Syringe IV (10:08)
--- NOTE | 2019-03-07 11:06 | PCM.OP.PRO ---
Problem List (1) STEMI (ST elevation myocardial infarction) Status: Acute Procedure Report Date of Procedure: 03/07/19 Intra-aortic balloon pump removal: Patient was extubated this morning, and was weaned off the internal balloon pump with 1: 2 ratio. Once his blood pressure and heart rate were found to be adequate on this ratio, he was replaced back to 1: 1 and his heparin drip was discontinued. 1 hour later his ACT was obtained which was found to be 147. The intra-balloon pump was then removed and direct manual pressure held for 25 minutes. Patient had no hematoma, bleeding, or groin pain at the end of the procedure. Patient had 1+ DP and PT pulses palpable bilaterally prior to his sheath removal, which remained the same post removal. The wound was dressed with gauze followed by a bandage, and had no complications.Patient tolerated procedure well.
[2019-03-07 11:15] LABS: ACT Activated Clotting Time 147 sec (74-137)
[2019-03-07] MEDS: Carvedilol 3.125 MG TABLET PO ×2 (12:59→22:12)
[2019-03-07] MEDS: Losartan Potassium 25 MG Tablet 12.5 MG PO (12:59)
[2019-03-07] MEDS: TICAGRELOR 90 MG TABLET PO ×2 (12:59→22:12)
[2019-03-07 13:06] LABS: Bedside Glucose 280 mg/dL (70-110)
[2019-03-07] MEDS: Ceftriaxone 1 GM/50 ML BAG IV (13:28)
--- NOTE | 2019-03-07 16:29 | PCM.PN.HOSP ---
Patient Problems: Active and Suspected Problems (Last Updated 03/06/19 @ 08:39 by Chelsea Lomax) STEMI (ST elevation myocardial infarction) (Acute 03/05/19) Subjective: Follow-up on STEMI: Patient was seen and examined. Extubated this morning. He denied any chest pain or dizziness or shortness of breath. His balloon pump was removed this morning. Patient's vitals remained stable. Good urine output. Objective: Physical exam: General: On 2 L oxygen, awake, alert, cooperative HEENT: Atraumatic, PERRLA, EOMI, Normocephalic Oral: Moist Mucosa Neck: Supple Lungs: Clear to auscultation, Normal air movement Cardiovascular: Regular rate, Regular Rhythm, Normal S1, Normal S2, No murmurs Abdomen: Bowel Sounds Present, Soft, Non Tender, Non-Distended, No Hepato-splenomegaly, newby catheter in situ Extremities: - - Bilateral leg edema +2 Skin: No rashes, No breakdown Musculoskeletal: No Tenderness to Palpation of Joints or Extremities Lymphatic: No Cervical, Supraclavicular, or Inguinal Adenopathy Neurological: Cranial nerves II-XII grossly intact Psych/Mental Status: Normal Affect, Appropriate Vitals/I&O's: Vital Signs Temp Pulse Resp BP Pulse Ox 97.9 F 68 15 118/61 98 03/07/19 12:00 03/07/19 15:00 03/07/19 15:00 03/07/19 15:00 03/07/19 15:00 Oxygen Flow Rate (L/min) 2 Oxygen Delivery Method Nasal Cannula Weight: 92.4 kg Body Mass Index (BMI) 26.4 Finger Stick Blood Glucose 122 Intake and Output for Last 24 Hours 03/05/19 03/06/19 03/07/19 23:59 23:59 23:59 Intake Total 198.85 / 302.98 1359.80 / 1381.75 910.28 / 910.28 Output Total 150 / 600 2767 / 2767 825 / 825 Balance 48.85 / -297.02 -1407.20 / -1385.25 85.28 / 85.28 Microbiology Past 72 Hours 03/06/19 09:50 Sputum, Induced/Lukens Gram Stain - Final 03/06/19 09:50 Sputum, Induced/Lukens Respiratory Culture - Preliminary GNR Possible Haemophilus sp. 03/06/19 06:50 Urine Catheter - [place] Urine Culture - Preliminary Culture exhibits no growth. Laboratory Results 03/06/19 17:02: POC Glucose 286 H 03/06/19 18:50: APTT Cancelled 03/06/19 19:30: APTT 67.9 H 03/07/19 00:01: POC Glucose 303 H 03/07/19 02:15: WBC 13.7 H, RBC 4.13 L, Hgb 12.3 L, Hct 35.6 L, MCV 86.2, MCH 29.8, MCHC 34.6, RDW Std Deviation 40.7, RDW Coeff of Jr 13.2, Plt Count 139 L, MPV 13.0 H, Immature Gran % (Auto) 0.900, Neut % (Auto) 82.4 H, Lymph % (Auto) 7.8 L, [place] % (Auto) 8.1, Eos % (Auto) 0.6, Baso % (Auto) 0.2, Absolute Neuts (auto) 11.3 H, Absolute Lymphs (auto) 1.07, Nucleated RBC % 0 03/07/19 02:15: Sodium 139, Potassium 3.4 L, Chloride 100, Carbon Dioxide 29.0, BUN 33 H, Creatinine 1.93 H, Estim Creat Clear Calc 47.32, Est GFR (MDRD) Af Amer 46 L, Est GFR (MDRD) Non-Af 38 L, BUN/Creatinine Ratio 17.1, Glucose 302 H, Calcium 8.6, Phosphorus 2.8, Albumin 3.0 L 03/07/19 02:15: APTT 54.6 H 03/07/19 06:20: POC Glucose 299 H 03/07/19 07:03: Specimen Type ART, Sample Site L Radial, pH 7.49 H, Bicarbonate Actual 29.5 H, POC Total CO2 31, Base Excess 6 H, O2 Saturation 95, O2 % 25, ABG pCO2 38.4, ABG pO2 71 L, O2 Delivery Device Vent, Vent Mode CPAP PS, POC PEEP 5, POC Pressure Suppt 5, Blood Gas Notified Whom ICU , Blood Gas Notified Time 701 03/07/19 08:00: APTT 48.3 H 03/07/19 09:58: Activated Clotting Time 147 H 03/07/19 12:55: POC Glucose 280 H Current Medications Acetaminophen (Tylenol) 650 mg PO Q6H PRN PRN PRN Reason: Pain Score 1-3/10 Albuterol/Ipratropium (Duoneb) 3 ml INHALATION Q6H.RT ON LICENSE OF [facility] Last Admin: 03/07/19 13:05 Dose: 3 ml Documented by: Atorvastatin Calcium (Lipitor) 80 mg PO QHS ON LICENSE OF [facility] Last Admin: 03/06/19 22:35 Dose: 80 mg Documented by: Atropine Sulfate () 0.5 mg IV UD PRN PRN Reason: HR <50 bpm Carvedilol (Coreg) 3.125 mg PO BID ON LICENSE OF [facility] Last Admin: 03/07/19 12:59 Dose: 3.125 mg Documented by: Furosemide (Lasix) 40 mg IV DAILY ON LICENSE OF [facility] Last Admin: 03/07/19 10:07 Dose: 40 mg Documented by: Heparin Sodium (Beef Lung) (Heparin 500 Unit/5 Ml (100/Ml)) 500 unit IV UD PRN PRN Reason: HEPARIN FLUSH Heparin Sodium (Porcine) (Heparin Na) 0 unit IV UD PRN; Protocol Sodium Chloride () 250 mls @ 15 mls/hr IV .[id number] PRN PRN Reason: Saline Flush Pantoprazole Sodium 40 mg/ (Sodium Chloride) 110 mls @ 330 mls/hr IV Q12 ANTONIO Ceftriaxone Sodium (Rocephin) 1 gm in 50 mls @ 100 mls/hr IV Q24 ON LICENSE OF [facility] Last Infusion: 03/07/19 14:00 Dose: Infused Documented by: Insulin Human Lispro (Humalog Kwikpen (Bkc)) 0 unit SC Q6 ON LICENSE OF [facility]; Protocol Last Admin: 03/07/19 12:59 Dose: 4 units Documented by: Labetalol HCl (Trandate) 5 mg IV X1 PRN PRN Reason: SBP > 160 when pulling sheath Lorazepam (Ativan) 2 mg IV Q2H PRN PRN PRN Reason: AGITATION Last Admin: 03/07/19 10:06 Dose: 2 mg Documented by: Losartan Potassium (Cozaar) 12.5 mg PO DAILY ON LICENSE OF [facility] Last Admin: 03/07/19 12:59 Dose: 12.5 mg Documented by: Nitroglycerin (Nitrostat) 0.4 mg SUBLINGUAL Q5M PRN PRN Reason: CARDIAC/CHEST PAIN Sodium Chloride () 500 ml IV BOLUS PRN PRN Reason: VASO-VAGAL PROTOCOL Sodium Chloride () 10 - 40 ml IV UD PRN PRN Reason: SALINE FLUSH Last Admin: 03/07/19 10:08 Dose: 10 ml Documented by: Ticagrelor (Brilinta) 90 mg PO BID ANTONIO Last Admin: 03/07/19 12:59 Dose: 90 mg Documented by: STROKE Vital Signs/Narrative: Vital Signs Pulse Resp BP Pulse Ox 03/07/19 15:00 68 15 118/61 98 03/07/19 14:40 80 03/07/19 14:00 80 17 148/82 H 96 03/07/19 13:06 69 19 H 03/07/19 13:00 69 15 138/73 H 96 Medical Necessity - Tobacco Use Smoking Status: Unknown if ever smoked Tobacco Use: Non-smoker Assessment/Plan All Active Problems (Last Updated 03/06/19 @ 08:39 by Chelsea Lomax) STEMI (ST elevation myocardial infarction) (Acute 03/05/19) Syncope and collapse (Acute) Syncope (Acute) Bradycardia (Acute) 1. Acute STEMI, JOY score 2, s/p 4 stents in RCA, multiple vessel involvement On aspirin, brilinta, heparin drip, statin s/p balloon pump removal, cardiology following 2. Acute hypoxic respiratory failure, resolved Status post extubation on 03/07/19 3. Acute GI bleed, likely secondary to gastritis, Likely stress related vs medication-induced Stable H&H, on IV PPI BID 4. Acute on chronic CHF, EF 15-20% on 2D ECHO On lasix 40mg IV daily 4. H/o recent CVA with residual left sided weakness, on aspirin and brilinta 5. Hypertension, controlled, on carvedilol and losartan, will continue monitor 6. CKD stage 3, Cr is 1.93, will continue to monitor Will trend labs 7. DVT PPx- On Heparin SC 8. Code status: DNR-CCA. Code Visit Inpatient E&M: 75708 Subs Hosp L3
[2019-03-07 18:05] LABS: Bedside Glucose 295 mg/dL (70-110)
[2019-03-07] MEDS: Atorvastatin Calcium 80 MG Tablet PO (22:12)
[2019-03-08] VITALS (28 sets, daily range): BP systolic 80–187; BP diastolic 45–107; PULSE 79–120; RESP 13–26; TEMP 36.6–36.8; O2SAT 92–98
[2019-03-08] MEDS: Insulin Lispro 100 UNIT/ML INSULN.PEN SC ×5 (01:40→21:13)
[2019-03-08 01:46] LABS: Bedside Glucose 234 mg/dL (70-110)
[2019-03-08 04:48] LABS: Absolute Neutrophil Count 12.8 X10^3/uL (2.0-7.7); Basophil# 0.04 X10^3/uL; Basophil% 0.3 % (0-1); Eosinophil# 0.17 X10^3/uL; Eosinophils% 1.2 % (0-5); Hematocrit 35.6 % (40-54); Hemoglobin 12.3 g/dL (13.0-16.5); Lymphocyte % 4.7 % (19-41); Mean Corp Hgb Conc 34.6 g/dL (32-36); Mean Corpuscular Volume 86.8 fL (80-94); Mean Platelet Vol. 12.9 fl (6.2-12.0); Monocyte# 0.92 X10^3/uL; Monocyte% 6.2 % (0-10); NRBC Flagged by Analyzer 0 % (0-5); Neutrophil # 12.76 X10^3/uL (2.7-7.7); Neutrophil % 86.6 % (47-70); Platelet Count 136 K/mm3 (150-450); RBC Distribution Width CV 13.5 % (11.6-14.6); RBC Distribution Width SD 42.2 fl (35.1-43.9); White Blood Count 14.7 K/mm3 (4.4-11.0)
[2019-03-08 05:08] LABS: Anion Gap 8 (5-15); BUN 28 mg/dL (7-18); BUN/Creat Ratio 17.3 RATIO (10-20); Calcium,Total 8.2 mg/dL (8.5-10.1); Chloride 102 mmol/L (98-107); Creatinine, Serum 1.62 mg/dL (0.70-1.30); EST Glomerular Filtration Rate 46 mL/min (>60); Est Glom Filt Rate - Afr Amer 56 mL/min (>60); Estimated Creatinine Clearance 56.38 ml/min; Glucose 217 mg/dL (74-106); Magnesium 1.2 mg/dL (1.6-2.6); Phosphorus 2.4 mg/dL (2.5-4.9); Sodium Level 140 mmol/L (136-145)
--- NOTE | 2019-03-08 05:59 | PN_ITS ---
Patient Problems: Active and Suspected Problems (Last Updated 03/06/19 @ 08:39 by Chelsea Lomax) STEMI (ST elevation myocardial infarction) (Acute 03/05/19) Reason for Visit: Follow-up on STEMI/CHF: Subjective: Patient was seen and examined. Complains of feeling nauseous. Blood pressure was elevated, not receive supplementary Coreg. Patient denied any chest pain or dizziness or palpitations. Blood pressure appears to be elevated at this morning. Objective: Physical exam: General: Awake, alert, cooperative HEENT: Atraumatic, PERRLA, EOMI, Normocephalic Oral: Moist Mucosa Neck: Supple Lungs: Clear to auscultation, Normal air movement Cardiovascular: Regular rate, Regular Rhythm, Normal S1, Normal S2, No murmurs Abdomen: Bowel Sounds Present, Soft, Non Tender, Non-Distended, No Hepato- splenomegaly, newby catheter in situ, right groin site is clean, soft Extremities: - - Bilateral leg edema +2 Skin: No rashes, No breakdown Musculoskeletal: No Tenderness to Palpation of Joints or Extremities Lymphatic: No Cervical, Supraclavicular, or Inguinal Adenopathy Neurological: Cranial nerves II-XII grossly intact Psych/Mental Status: Normal Affect, Appropriate Vitals/I&O's: Vital Signs Temp Pulse Resp BP Pulse Ox 98.1 F 98 22 H 161/88 H 95 03/08/19 04:00 03/08/19 05:00 03/08/19 05:00 03/08/19 05:00 03/08/19 05:00 Oxygen Flow Rate (L/min) 2 Oxygen Delivery Method Room Air Weight: 96.4 kg Body Mass Index (BMI) 26.4 Finger Stick Blood Glucose 122 Intake and Output for Last 24 Hours 03/06/19 03/07/19 03/08/19 23:59 23:59 23:59 Intake Total 1359.80 / 1381.75 910.28 / 970.28 60 / 60 Output Total 2767 / 2767 1375 / 1800 725 / 725 Balance -1407.20 / -1385.25 -464.72 / -829.72 -665 / -665 Microbiology Past 72 Hours 03/06/19 09:50 Sputum, Induced/Lukens Gram Stain - Final 03/06/19 09:50 Sputum, Induced/Lukens Respiratory Culture - Preliminary GNR Possible Haemophilus sp. 03/06/19 06:50 Urine Catheter - [place] Urine Culture - Preliminary Culture exhibits no growth. Laboratory Results 03/07/19 06:20: POC Glucose 299 H 03/07/19 07:03: Specimen Type ART, Sample Site L Radial, pH 7.49 H, Bicarbonate Actual 29.5 H, POC Total CO2 31, Base Excess 6 H, O2 Saturation 95, O2 % 25, ABG pCO2 38.4, ABG pO2 71 L, O2 Delivery Device Vent, Vent Mode CPAP PS, POC PEEP 5, POC Pressure Suppt 5, Blood Gas Notified Whom ICU MD, Blood Gas Notified Time 701 03/07/19 08:00: APTT 48.3 H 03/07/19 09:58: Activated Clotting Time 147 H 03/07/19 12:55: POC Glucose 280 H 03/07/19 17:56: POC Glucose 295 H 03/08/19 01:39: POC Glucose 234 H 03/08/19 04:40: WBC 14.7 H, RBC 4.10 L, Hgb 12.3 L, Hct 35.6 L, MCV 86.8, MCH 30.0, MCHC 34.6, RDW Std Deviation 42.2, RDW Coeff of Jr 13.5, Plt Count 136 L, MPV 12.9 H, Immature Gran % (Auto) 1.000 H, Neut % (Auto) 86.6 H, Lymph % (Auto) 4.7 L, [place] % (Auto) 6.2, Eos % (Auto) 1.2, Baso % (Auto) 0.3, Absolute Neuts (auto) 12.8 H, Absolute Lymphs (auto) 0.70 L, Nucleated RBC % 0 03/08/19 04:40: Sodium 140, Potassium 3.0 L, Chloride 102, Carbon Dioxide 30.0, Anion Gap 8, BUN 28 H, Creatinine 1.62 H, Estim Creat Clear Calc 56.38, Est GFR (MDRD) Af Amer 56 L, Est GFR (MDRD) Non-Af 46 L, BUN/Creatinine Ratio 17.3, Glucose 217 H, Calcium 8.2 L, Phosphorus 2.4 L, Magnesium 1.2 L Current Medications Acetaminophen (Tylenol) 650 mg PO Q6H PRN PRN PRN Reason: Pain Score 1-3/10 Albuterol/Ipratropium (Duoneb) 3 ml INHALATION Q6H.RT [facility] Last Admin: 03/08/19 01:10 Dose: Not Given Documented by: Atorvastatin Calcium (Lipitor) 80 mg PO QHS [facility] Last Admin: 03/07/19 22:12 Dose: 80 mg Documented by: Atropine Sulfate () 0.5 mg IV UD PRN PRN Reason: HR <50 bpm Carvedilol (Coreg) 6.25 mg PO BID [facility] Furosemide (Lasix) 40 mg IV DAILY [facility] Last Admin: 03/07/19 10:07 Dose: 40 mg Documented by: Heparin Sodium (Beef Lung) (Heparin 500 Unit/5 Ml (100/Ml)) 500 unit IV UD PRN PRN Reason: HEPARIN FLUSH Heparin Sodium (Porcine) (Heparin Na) 0 unit IV UD PRN; Protocol Sodium Chloride () 250 mls @ 15 mls/hr IV .[id number] PRN PRN Reason: Saline Flush Pantoprazole Sodium 40 mg/ (Sodium Chloride) 110 mls @ 330 mls/hr IV Q12 [facility] Ceftriaxone Sodium (Rocephin) 1 gm in 50 mls @ 100 mls/hr IV Q24 [facility] Last Infusion: 03/07/19 14:00 Dose: Infused Documented by: Insulin Human Lispro (Humalog Kwikpen (Bkc)) 0 unit SC Q6 [facility]; Protocol Last Admin: 03/08/19 01:40 Dose: 3 units Documented by: Labetalol HCl (Trandate) 5 mg IV X1 PRN PRN Reason: SBP > 160 when pulling sheath Lorazepam (Ativan) 2 mg IV Q2H PRN PRN PRN Reason: AGITATION Last Admin: 03/07/19 10:06 Dose: 2 mg Documented by: Losartan Potassium (Cozaar) 12.5 mg PO DAILY [facility] Last Admin: 03/07/19 12:59 Dose: 12.5 mg Documented by: Nitroglycerin (Nitrostat) 0.4 mg SUBLINGUAL Q5M PRN PRN Reason: CARDIAC/CHEST PAIN Potassium Chloride (K-Dur) 60 meq PO X1 ONE Stop: 03/08/19 05:58 Potassium Chloride (K[facility]Dur[facility] Sodium Chloride () 500 ml IV BOLUS PRN PRN Reason: VASO-VAGAL PROTOCOL Sodium Chloride () 10 - 40 ml IV UD PRN PRN Reason: SALINE FLUSH Last Admin: 03/07/19 10:08 Dose: 10 ml Documented by: Ticagrelor (Brilinta) 90 mg PO BID ANTONIO Last Admin: 03/07/19 22:12 Dose: 90 mg Documented by: STROKE Vital Signs/Narrative: Vital Signs Temp Pulse Resp BP Pulse Ox 03/08/19 05:00 98 22 H 161/88 H 95 03/08/19 04:00 98.1 F 94 26 H 159/72 H 92 03/08/19 03:00 85 16 153/77 H 95 03/08/19 02:00 84 13 154/80 H 92 Medical Necessity - Tobacco Use Smoking Status: Unknown if ever smoked Tobacco Use: Non-smoker Assessment/Plan All Active Problems (Last Updated 03/06/19 @ 08:39 by Chelsea Lomax) STEMI (ST elevation myocardial infarction) (Acute 03/05/19) Syncope and collapse (Acute) Syncope (Acute) Bradycardia (Acute) 58 year old M with past medical history of hypertension, hyperlipidemia, recent CVA in January 2019 who was admitted with complaints of chest pain. Patient was recently discharged from the group home and has been at home for couple of weeks. He had complained of chest pain with diaphoresis and nausea. EKG was suggestive of inferior posterior [place] 1. Acute STEMI, JOY score 2, s/p 4 stents in RCA, multiple vessel involvement On aspirin, brilinta, heparin drip, statin s/p balloon pump removal, cardiology following 2. Electrolyte imbalances-hypokalemia, hypomagnesemia, hypophosphatemia, repla job, recheck in am 3. Acute hypoxic respiratory failure, resolved Status post extubation on 03/07/19 4. Acute GI bleed, likely secondary to gastritis, Likely stress related vs medication-induced Stable H&H, on IV PPI BID 5. Acute on chronic CHF, EF 15-20% on 2D ECHO On lasix 40mg IV daily 6. H/o recent CVA with residual left sided weakness, on aspirin and brilinta 7. Hypertension, uncontrolled, on carvedilol and losartan, Cardiology following, coreg increased, will monitor 8. CKD stage 3, Cr is improved to 1.62 Will trend labs 9. DVT PPx- On Heparin drip 10. Code status: DNR-CCA. Code Visit Inpatient E&M: 23382 Subs Hosp L2
[2019-03-08] MEDS: Ipratropium/Albuterol Sulfate 3 ML AMPUL.NEB INHALATION ×2 (07:00→13:44)
--- NOTE | 2019-03-08 07:24 | PN_ITS ---
Subjective: Patient did well overnight. Patient has had some hypertension and nausea. Patient reportedly was ordered an extra dose of Coreg, but had emesis, so this was not given. Patient denies any pain at this time. Patient has been able to be weaned to room air. General: Alert, Oriented x3, Cooperative, No apparent distress, Well developed, Well nourished, - - Appears older than stated age. Speaking in full sentences. HEENT: Atraumatic, PERRLA, EOMI, Normocephalic, - - No scleral icterus or injec tion noted Oral: Moist Mucosa, No Gingival or Mucosal Lesions/ Ulcerations Neck: Supple, No JVD, No Nodes, Trachea Midline Lungs: No rhonchi, No wheeze, No rales, Diminished, - - Symmetric expansion. No dullness to percussion. Cardiovascular: Regular rate, Regular Rhythm, Normal S1, Normal S2, No murmurs, No rub noted, No Gallop Abdomen: Bowel Sounds Present, Soft, Non Tender, Non-Distended Extremities: No clubbing, No cyanosis, Edema - Bilateral lower extremities Skin: No rashes, No breakdown, - - Multiple tattoos Musculoskeletal: No Tenderness to Palpation of Joints or Extremities Lymphatic: No Cervical, Supraclavicular, or Inguinal Adenopathy Neurological: Cranial nerves II-XII grossly intact, Neuro grossly intact, Motor Exam 5/5 strength throughout Psych/Mental Status: Alert and oriented to time, place, person, mood and affect Vital Signs Temp Pulse Resp BP Pulse Ox 36.7 C 100 24 H 173/91 H 95 03/08/19 04:00 03/08/19 07:00 03/08/19 07:00 03/08/19 06:00 03/08/19 06:00 Oxygen Flow Rate (L/min) 2 Oxygen Delivery Method Room Air Weight: 96.4 kg Body Mass Index (BMI) 26.4 Finger Stick Blood Glucose 122 Intake and Output for Last 24 Hours 03/06/19 03/07/19 03/08/19 23:59 23:59 23:59 Intake Total 1359.80 / 1381.75 910.28 / 970.28 60 / 60 Output Total 2767 / 2767 1375 / 1800 725 / 725 Balance -1407.20 / -1385.25 -464.72 / -829.72 -665 / -665 Labs (Last 48 Hours) 03/06/19 03/06/19 03/06/19 12:00 12:18 17:02 WBC RBC Hgb Hct MCV MCH MCHC RDW Std Deviation RDW Coeff of Jr Plt Count MPV Immature Gran % (Auto) Neut % (Auto) Lymph % (Auto) Greer % (Auto) Eos % (Auto) Baso % (Auto) Absolute Neuts (auto) Absolute Lymphs (auto) Nucleated RBC % APTT 42.8 H Activated Clotting Time Specimen Type Sample Site pH Bicarbonate Actual POC Total CO2 Base Excess O2 Saturation O2 % ABG pCO2 ABG pO2 O2 Delivery Device Vent Mode POC PEEP POC Pressure Suppt Blood Gas Notified Whom Blood Gas Notified Time Sodium Potassium Chloride Carbon Dioxide Anion Gap BUN Creatinine Estim Creat Clear Calc Est GFR (MDRD) Af Amer Est GFR (MDRD) Non-Af BUN/Creatinine Ratio Glucose Calcium Phosphorus Magnesium Albumin POC Glucose 271 H 286 H 03/06/19 03/06/19 03/07/19 18:50 19:30 00:01 WBC RBC Hgb Hct MCV MCH MCHC RDW Std Deviation RDW Coeff of Jr Plt Count MPV Immature Gran % (Auto) Neut % (Auto) Lymph % (Auto) Greer % (Auto) Eos % (Auto) Baso % (Auto) Absolute Neuts (auto) Absolute Lymphs (auto) Nucleated RBC % APTT Cancelled 67.9 H Activated Clotting Time Specimen Type Sample Site pH Bicarbonate Actual POC Total CO2 Base Excess O2 Saturation O2 % ABG pCO2 ABG pO2 O2 Delivery Device Vent Mode POC PEEP POC Pressure Suppt Blood Gas Notified Whom Blood Gas Notified Time Sodium Potassium Chloride Carbon Dioxide Anion Gap BUN Creatinine Estim Creat Clear Calc Est GFR (MDRD) Af Amer Est GFR (MDRD) Non-Af BUN/Creatinine Ratio Glucose Calcium Phosphorus Magnesium Albumin POC Glucose 303 H 03/07/19 03/07/19 03/07/19 02:15 02:15 02:15 WBC 13.7 H RBC 4.13 L Hgb 12.3 L Hct 35.6 L MCV 86.2 MCH 29.8 MCHC 34.6 RDW Std Deviation 40.7 RDW Coeff of Jr 13.2 Plt Count 139 L MPV 13.0 H Immature Gran % (Auto) 0.900 Neut % (Auto) 82.4 H Lymph % (Auto) 7.8 L Greer % (Auto) 8.1 Eos % (Auto) 0.6 Baso % (Auto) 0.2 Absolute Neuts (auto) 11.3 H Absolute Lymphs (auto) 1.07 Nucleated RBC % 0 APTT 54.6 H Activated Clotting Time Specimen Type Sample Site pH Bicarbonate Actual POC Total CO2 Base Excess O2 Saturation O2 % ABG pCO2 ABG pO2 O2 Delivery Device Vent Mode POC PEEP POC Pressure Suppt Blood Gas Notified Whom Blood Gas Notified Time Sodium 139 Potassium 3.4 L Chloride 100 Carbon Dioxide 29.0 Anion Gap BUN 33 H Creatinine 1.93 H Estim Creat Clear Calc 47.32 Est GFR (MDRD) Af Amer 46 L Est GFR (MDRD) Non-Af 38 L BUN/Creatinine Ratio 17.1 Glucose 302 H Calcium 8.6 Phosphorus 2.8 Magnesium Albumin 3.0 L POC Glucose 03/07/19 03/07/19 03/07/19 06:20 07:03 08:00 WBC RBC Hgb Hct MCV MCH MCHC RDW Std Deviation RDW Coeff of Jr Plt Count MPV Immature Gran % (Auto) Neut % (Auto) Lymph % (Auto) Greer % (Auto) Eos % (Auto) Baso % (Auto) Absolute Neuts (auto) Absolute Lymphs (auto) Nucleated RBC % APTT 48.3 H Activated Clotting Time Specimen Type ART Sample Site L Radial pH 7.49 H Bicarbonate Actual 29.5 H POC Total CO2 31 Base Excess 6 H O2 Saturation 95 O2 % 25 ABG pCO2 38.4 ABG pO2 71 L O2 Delivery Device Vent Vent Mode CPAP PS POC PEEP 5 POC Pressure Suppt 5 Blood Gas Notified Whom ICU MD Blood Gas Notified Time 701 Sodium Potassium Chloride Carbon Dioxide Anion Gap BUN Creatinine Estim Creat Clear Calc Est GFR (MDRD) Af Amer Est GFR (MDRD) Non-Af BUN/Creatinine Ratio Glucose Calcium Phosphorus Magnesium Albumin POC Glucose 299 H 03/07/19 03/07/19 03/07/19 09:58 12:55 17:56 WBC RBC Hgb Hct MCV MCH MCHC RDW Std Deviation RDW Coeff of Jr Plt Count MPV Immature Gran % (Auto) Neut % (Auto) Lymph % (Auto) Greer % (Auto) Eos % (Auto) Baso % (Auto) Absolute Neuts (auto) Absolute Lymphs (auto) Nucleated RBC % APTT Activated Clotting Time 147 H Specimen Type Sample Site pH Bicarbonate Actual POC Total CO2 Base Excess O2 Saturation O2 % ABG pCO2 ABG pO2 O2 Delivery Device Vent Mode POC PEEP POC Pressure Suppt Blood Gas Notified Whom Blood Gas Notified Time Sodium Potassium Chloride Carbon Dioxide Anion Gap BUN Creatinine Estim Creat Clear Calc Est GFR (MDRD) Af Amer Est GFR (MDRD) Non-Af BUN/Creatinine Ratio Glucose Calcium Phosphorus Magnesium Albumin POC Glucose 280 H 295 H 03/08/19 03/08/19 03/08/19 01:39 04:40 04:40 WBC 14.7 H RBC 4.10 L Hgb 12.3 L Hct 35.6 L MCV 86.8 MCH 30.0 MCHC 34.6 RDW Std Deviation 42.2 RDW Coeff of Jr 13.5 Plt Count 136 L MPV 12.9 H Immature Gran % (Auto) 1.000 H Neut % (Auto) 86.6 H Lymph % (Auto) 4.7 L Greer % (Auto) 6.2 Eos % (Auto) 1.2 Baso % (Auto) 0.3 Absolute Neuts (auto) 12.8 H Absolute Lymphs (auto) 0.70 L Nucleated RBC % 0 APTT Activated Clotting Time Specimen Type Sample Site pH Bicarbonate Actual POC Total CO2 Base Excess O2 Saturation O2 % ABG pCO2 ABG pO2 O2 Delivery Device Vent Mode POC PEEP POC Pressure Suppt Blood Gas Notified Whom Blood Gas Notified Time Sodium 140 Potassium 3.0 L Chloride 102 Carbon Dioxide 30.0 Anion Gap 8 BUN 28 H Creatinine 1.62 H Estim Creat Clear Calc 56.38 Est GFR (MDRD) Af Amer 56 L Est GFR (MDRD) Non-Af 46 L BUN/Creatinine Ratio 17.3 Glucose 217 H Calcium 8.2 L Phosphorus 2.4 L Magnesium 1.2 L Albumin POC Glucose 234 H Microbiology 03/06/19 09:50 Sputum, Induced/Lukens Gram Stain - Final 03/06/19 09:50 Sputum, Induced/Lukens Respiratory Culture - Preliminary GNR Possible Haemophilus sp. 03/06/19 06:50 Urine Catheter - Barnhart Urine Culture - Preliminary Culture exhibits no growth. Medical Necessity - Tobacco Use Smoking Status: Unknown if ever smoked Tobacco Use: Non-smoker Assessment/Plan All Active Problems (Last Updated 03/06/19 @ 08:39 by Chelsea Lomax) STEMI (ST elevation myocardial infarction) (Acute 03/05/19) Syncope and collapse (Acute) Syncope (Acute) Bradycardia (Acute) RECOMMENDATIONS: 1. Cardiac optimization per cardiology 2. Will defer to cardiology on increase in blood pressure medications 3. Transition to q. before meals at bedtime blood sugars 4. Aggressive electrolyte repletion 5. Continue PPI twice daily until EGD can be completed as an outpatient 6. Okay to leave the intensive care unit from my perspective IMPRESSIONS: 1. Cardiogenic shock secondary to ST elevation SC with RCA stenting Patient with multiple coronary artery lesions and a progressive loss of EF from 60% to 15 - 20% in a relatively short time. Patient currently had an intra-aortic balloon pump in place, but this was discontinued yesterday and patient is tolerating well. Patient has had some hypertension. Will defer to cardiology on whether they would like to increase Coreg versus ALYSSA inhibitor. 2. Acute hypoxic respiratory failure secondary to probable acute CHF secondary to #1 Patient doing very well at this time. Patient is on room air. Would continue with DuoNeb therapy while awake. Patient would benefit from outpatient pulmonary function test given smoking history for quantification and clarification of lung function. Patient does not require steroids from my perspective. 3. Acute blood loss anemia secondary to upper GI bleed Patient reportedly with large bloody removal from the OG on placement. Unclear if this is related to an ulcer versus stress gastritis in the setting of anticoagulation. Patient has been transitioned to Protonix twice daily. This should be continued until patient can have investigation of his GI system. This can likely be completed as an outpatient as hemoglobins have been stable 4. Recent CVA/hypertension/CKD stage III/chronic pain/uncontrolled diabetes mellitus Complicates care, management, recovery and prognosis. Patient currently on a p.o. diet. Okay to transition to q. before meals and at bedtime blood sugars. Code Visit Inpatient E&M: 17881 Subs Hosp L3
[2019-03-08] MEDS: proMETHazine 25 MG/ML Syringe 12.5 MG IV (08:41)
--- NOTE | 2019-03-08 08:41 | PN.CARD_ITS ---
Subjectve: Patient had some nausea this morning, is tachycardic and hypertensive. No chest pain or anginal symptoms. Telemetry showed sinus tachycardia, no PVCs. Objective: Vital Signs Temp Pulse Resp BP Pulse Ox 98.1 F 100 24 H 173/91 H 95 03/08/19 04:00 03/08/19 07:00 03/08/19 07:00 03/08/19 06:00 03/08/19 06:00 Oxygen Flow Rate (L/min) 2 Oxygen Delivery Method Room Air Weight: 212 lb 8.41 oz Body Mass Index (BMI) 26.4 Finger Stick Blood Glucose 122 Intake and Output for Last 24 Hours 03/06/19 03/07/19 03/08/19 23:59 23:59 23:59 Intake Total 1359.80 / 1381.75 910.28 / 970.28 60 / 60 Output Total 2767 / 2767 1375 / 1800 725 / 725 Balance -1407.20 / -1385.25 -464.72 / -829.72 -665 / -665 General: Awake, Alert, Oriented x 3 HEENT: PERRL, EOMI, Sclera Non Icteric Neck: Supple, Good ROM, No Lymph Node Enlargement Lungs: Clear to auscultation Cardiovascular: Regular Rhythm, Normal S1, Normal S2, No Murmurs, No Rubs, No Gallops Vascular: No Carotid Bruits, Normal Femoral Pulses, Normal Radial Pulses, Normal Dorsalis Pedal Pulse, Normal Posterior Tibial Pulses Abdomen: Bowel Sounds Present, Soft, Non Tender, No HSM, No Organomegaly Extremities: No Cyanosis, No Clubbing, No edema Neurological: No Focal Motor or Sensory Deficit 03/07/19 08:00: APTT 48.3 H 03/08/19 04:40: WBC 14.7 H, RBC 4.10 L, Hgb 12.3 L, Hct 35.6 L, MCV 86.8, MCH 30.0, MCHC 34.6, Plt Count 136 L, MPV 12.9 H, Immature Gran % (Auto) 1.000 H, Neut % (Auto) 86.6 H, Lymph % (Auto) 4.7 L, Burke % (Auto) 6.2, Eos % (Auto) 1.2, Baso % (Auto) 0.3, Absolute Neuts (auto) 12.8 H, Nucleated RBC % 0 03/08/19 04:40: Sodium 140, Potassium 3.0 L, Chloride 102, Carbon Dioxide 30.0, Anion Gap 8, BUN 28 H, Creatinine 1.62 H, Est GFR (MDRD) Af Amer 56 L, Est GFR (MDRD) Non-Af 46 L, BUN/Creatinine Ratio 17.3, Glucose 217 H, Calcium 8.2 L, Phosphorus 2.4 L, Magnesium 1.2 L Rhythm: EKG: ECHO: Stress Test: Cardiac Cath: PCI: CT Surgery: Holter monitor: EPS: PPM: CXR: Chest CT Scan: Medical Necessity - Tobacco Use Smoking Status: Unknown if ever smoked Tobacco Use: Non-smoker Assessment/Plan 1. Coronary artery disease: The patient presented with what appeared to be acute inferior and true posterior wall myocardial infarction and underwent emergent angioplasty and drug-eluting stenting x4 to the right coronary artery/PDA on 03/05/2019. In addition the patient has severe multivessel coronary disease including his left main, LAD, left circumflex and several of the main branches. He has severe LV dysfunction with an EF of 35% in January 2019 at which time he had a CVA, and now his ejection fraction is reduced to 15 to 20% in light of his recent myocardial infarction. Patient was successfully extubated yesterday, and his balloon pump was removed later that day. His blood pressure and heart rate are actually much better, in fact hypertensive and tachycardic. I recommended that we increase his Coreg to 12.5 mg p.o. twice daily, and increase his Cozaar to 25 mg p.o. twice daily for afterload reduction. In the meantime he will continue his Coreg, losartan, we will add Lasix 40 mg IV daily to optimize his pulmonary pressures and LV dysfunction, and would recommend switching him to hydralazine from those are if his creatinine goes above 2.0. In addition he will continue his baby aspirin and Brilinta. Recommend IV diuresis for 1 more day to unload his lungs, to avoid possible flash pulmonary edema given his severe LV dysfunction superimposed on his recent myocardial infarction. Tomorrow we will switch him to Lasix p.o. 40 mg daily. His balloon pump removal site is clean/dry/intact without evidence of thrills, bruits or hematoma. He has 1+ bilateral DP and PT pulses. 2. Hyperlipidemia: Continue antilipid therapy. 4. Coronary corrective measures going forward: I had a long thorough discussion with the patient's family yesterday and described to them the complexity of his coronary disease located in his left main, LAD and left circumflex. I would not recommend proceeding with intervention at this time as this would be very high risk and if he was not a surgical candidate, and is currently DNR, that would be very problematic for corrective measures. My suspicion is is that we will most likely proceed with medical management of his remaining coronary arteries given his severe LV dysfunction, recent CVA, and now this more recent myocardial in farction. Any attempted intervention would have to have his DNR suspended, and he would have to be deemed a surgical candidate prior to that should there be a critical complication during his intervention. Patient's family has agreed, and all questions have been answered. Prior to his intervention, we were unaware of his D[facility] [place] [facility] the [place] [facility], but this is now been re-invoked going forw olivier. Patient is currently DNR. 5. Discussed with Dr. Chavarria. Would recommend continuing the patient in the ICU until his blood pressure and heart rate are better controlled so as to avoid possible flash pulmonary edema on PCU floor. Thank you very much for the opportunity to participate in the cardiac care of your patient.
--- NOTE | 2019-03-08 09:53 | CASEMGMT ---
Addendum entered by Kerri Lopez 03/08/19 11:44: SW spoke w/Bernie in regard to TCU referral. She will start the precert today w/MMO and let SW know once precert is attained. SW spoke w/pt in room, let him know that TCU has a bed and will start precert today. Pt's brother, daughter, mother, and another family member are all present. Daughter asked if this was for nursing home or short term. SW explained it would be for short term, and if rn long term care is needed the SW in TCU would work on getting pt to a facility in the community that takes Medicaid, as TCU does not take Medicaid. Daughter asked if pt can go home w/ who works during the day. SW explained that pt is not moving very well, and it seems that SNF initially is a safer choice. Daughter then stated that you sent him home like this. She then clarified that SW did not send pt home, but that he was not moving any better when he came home the last time. SW clarified that pt was here in rehab, then to [facility]. SW explained that this SW is not aware of the circumstances around pt leaving [facility]. Daughter asked pt if he left against medical advice, pt states he does not know. SW again explained cannot speak to this, however after this hospitalization now it does seem going to SNF is indicated. Pt is not certain if will be okay with this, states he does not know who is going to cook for Constantine. Constantine is pt's brother in law. SW spoke w/pt about focusing on his own health and that it seems he would have a difficult time cooking for someone else right now. Upon further discussion pt indicated he cannot stand, and cannot even get to the bathroom. Pt states he knows he can't go home from here. Pt and family both seem in agreement w/TCU referral. SW let pt and family know if comes in and wants to speak w/SW about this, SW is available and just to let RN know. SW also explained to family if longer term placement is needed, the SW in TCU can assist with this. Family states understanding. Plan: TCU pending precert, SW will speak w/ should she come in and want to review discharge plan. ARLYN Lala Original Note: SW participated in ICU rounds this morning. Pt's mother and brother present. SW spoke w/pt, brother and mother about discharge plan from here. Pt is anticipating needing to go somewhere for rehab. SW spoke w/pt and family about options, provided a list of in network [place] [facility] facilities with MMO. Pt would like to go to TCU if possible, is not certain about a second choice just yet. SW explained will find out about bed availability and let him know, will let him know if a second choice is needed. SW called referral phone, message left on referral line, awaiting a call back. PT/OT are also pending. SW will continue to follow. ARLYN Lala
--- NOTE | 2019-03-08 10:00 | EKG12_ITS ---
Test Reason : AM EKG Blood Pressure : / mmHG Vent. Rate : 095 BPM Atrial Rate : 095 BPM P-R Int : 146 ms QRS Dur : 120 ms QT Int : 390 ms P-R-T Axes : 044 047 072 degrees QTc Int : 490 ms Normal sinus rhythm Inferior infarct , age undetermined Marked ST abnormality, possible lateral subendocardial injury Abnormal ECG When compared with ECG of 07-MAR-2019 05:37, MANUAL COMPARISON REQUIRED, DATA IS UNCONFIRMED Confirmed by CALISTA PEARCE ([id number]), online editor LINDSAY ABBASI ([id number]) on 03/19/2019 10:51:34 AM Referred By: Calista Pearce Confirmed By:CALISTA PEARCE
[2019-03-08] MEDS: Aspirin 81 MG TAB.CHEW PO (10:25)
[2019-03-08] MEDS: Carvedilol 12.5 MG Tablet PO (10:25)
[2019-03-08] MEDS: Losartan Potassium 25 MG Tablet PO ×2 (10:26→21:19)
[2019-03-08] MEDS: Furosemide 40 MG/4 ML Vial IV (10:27)
[2019-03-08] MEDS: TICAGRELOR 90 MG TABLET PO ×2 (10:27→21:17)
[2019-03-08] MEDS: Ceftriaxone 1 GM/50 ML BAG IV (10:37)
[2019-03-08 11:51] LABS: Bedside Glucose 256 mg/dL (70-110)
--- NOTE | 2019-03-08 15:28 | CASEMGMT ---
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 SW spoke to pt and son Rogerio in room regarding orchestra leader plan, if he is planning on going home or to stay in a [facility]. SW offered to make a referral to a [facility] where pt can stay assisted if needed. Pt explained if he goes to a [facility] his has said she would leave him. Son states that they have alternate arrangements Pt indicated he could stay with his daughter but his would leave him if he did. SW asked what thinks about pt not being able to manage at home by himself while she is at work. Pt states, she is not worried about that. Pt states they have been for 33 years. Pt expressed being overwhelmed with everything that is going on. He states that his has told him before he needs to pick between her and his children, and he states will always choose his children. SW offered support to pt. Pt then asked about changing his POA to his daughter. SW explained he can change his POA--SW explained that he would still be his own decision maker at this time however even if he changes the POA. Pt states understanding. He states he does not know how his will react if he changes POA. SW explained to pt to think about it, talk to her if he can, and SW will ask the SW to go see him on Wednesday and see if he wants to change his POA. At this time, plan will continue to be for TCU pending precert. SW will follow up on Wednesday regarding POA. After TCU, son indicating they have made other arrangements for pt so pt will not need assisted care. Pt indicating he can stay w/his daughter, though he is not certain what he will decide to do as he is concerned how his will react. SW will continue to follow. ARLYN Lala
[2019-03-08 16:50] LABS: Bedside Glucose 289 mg/dL (70-110)
[2019-03-08] MEDS: Atorvastatin Calcium 80 MG Tablet PO (21:17)
[2019-03-08] MEDS: Carvedilol 6.25 MG Tablet PO (21:19)
[2019-03-08 21:36] LABS: Bedside Glucose 302 mg/dL (70-110)
[2019-03-09] VITALS (21 sets, daily range): BP systolic 116–178; BP diastolic 66–87; PULSE 72–87; RESP 13–21; TEMP 36.4–37.1; O2SAT 93–97
[2019-03-09 04:24] LABS: Absolute Lymphocyte Count 0.94 X10^3/uL (0.83-4.51); Absolute Neutrophil Count 8.2 X10^3/uL (2.0-7.7); Basophil# 0.03 X10^3/uL; Basophil% 0.3 % (0-1); Eosinophils% 2.9 % (0-5); Hematocrit 31.5 % (40-54); Hemoglobin 10.5 g/dL (13.0-16.5); Lymphocyte # 0.94 X10^3/ul (4.0); Lymphocyte % 9.1 % (19-41); Mean Corp Hgb Conc 33.3 g/dL (32-36); Mean Corpuscular Hgb 29.4 pg (27.0-32.0); Mean Corpuscular Volume 88.2 fL (80-94); Monocyte# 0.74 X10^3/uL; Monocyte% 7.1 % (0-10); NRBC Flagged by Analyzer 0 % (0-5); Neutrophil # 8.24 X10^3/uL (2.7-7.7); Neutrophil % 79.5 % (47-70); Platelet Count 133 K/mm3 (150-450); RBC Distribution Width CV 13.3 % (11.6-14.6); RBC Distribution Width SD 43.2 fl (35.1-43.9); Red Blood Count 3.57 M/mm3 (4.6-6.2); White Blood Count 10.4 K/mm3 (4.4-11.0)
[2019-03-09 04:35] LABS: Albumin, Serum 2.6 g/dL (3.2-5.0); BUN 31 mg/dL (7-18); BUN/Creat Ratio 19.4 RATIO (10-20); Chloride 106 mmol/L (98-107); EST Glomerular Filtration Rate 47 mL/min (>60); Est Glom Filt Rate - Afr Amer 57 mL/min (>60); Estimated Creatinine Clearance 57.08 ml/min; Glucose 273 mg/dL (74-106); Magnesium 2.1 mg/dL (1.6-2.6); Phosphorus 2.3 mg/dL (2.5-4.9); Potassium 3.5 mmol/L (3.5-5.1); Sodium Level 141 mmol/L (136-145)
[2019-03-09] MEDS: Ipratropium/Albuterol Sulfate 3 ML AMPUL.NEB INHALATION ×3 (06:27→19:16)
--- NOTE | 2019-03-09 07:25 | PCM.PN.HOSP ---
Patient Problems: Active and Suspected Problems (Last Updated 03/06/19 @ 08:39 by Chelsea Lomax) STEMI (ST elevation myocardial infarction) (Acute 03/05/19) Reason for Visit: Follow-up acute ST segment elevation ME with subsequent cardiogenic shock Subjective: Seen in the ICU had a relatively uneventful night. Denies chest pain this a.m. Plan is for patient to be transferred from the ICU to the progressive care unit Objective: GENERAL: cooperative HEENT: Atraumatic; EYES; Anicteric, Normal Conjunctiva NECK; supple, normal thyroid, RESPIRATORY: Diminished to auscultation CARDIOVASCULAR: Regular S1 S2, GI: soft, normoactive bowel sounds, : No Renal angle tenderness; EXTREMITIES: No edema, no clubbing, MUSCULOSKELETAL: no muscle waisting NEURO: Awake; left lower extremity weakness SKIN: No Rash PSYCH; Flat affect Vitals/I&O's: Vital Signs Temp Pulse Resp BP Pulse Ox 97.8 F 77 16 157/66 H 96 03/09/19 04:00 03/09/19 06:27 03/09/19 06:27 03/09/19 06:00 03/09/19 06:00 Oxygen Flow Rate (L/min) 2 Oxygen Delivery Method Room Air Weight: 96.6 kg Body Mass Index (BMI) 26.4 Finger Stick Blood Glucose 122 Intake and Output for Last 24 Hours 03/07/19 03/08/19 03/09/19 23:59 23:59 23:59 Intake Total 910.28 / 970.28 1394.67 / 1594.67 250 / 250 Output Total 1375 / 1800 1725 / 2175 450 / 450 Balance -464.72 / -829.72 -330.33 / -580.33 -200 / -200 Microbiology Past 72 Hours 03/06/19 09:50 Sputum, Induced/Lukens Gram Stain - Final 03/06/19 09:50 Sputum, Induced/Lukens Respiratory Culture - Final Haemophilus influenzae 03/06/19 12:00 Blood Culture (Wb) - Left Wrist Blood Culture - Preliminary No growth in 48 hours. 03/06/19 06:50 Urine Catheter - Barnhart Urine Culture - Final Culture exhibits no growth. 03/06/19 06:50 Blood Culture (Wb) - Anticubital Left Blood Culture - Preliminary No growth in 48 hours. Laboratory Results 11/27/19 11:44: POC Glucose 256 H 03/08/19 16:47: POC Glucose 289 H 03/08/19 21:12: POC Glucose 302 H 03/09/19 04:08: Sodium 141, Potassium 3.5, Chloride 106, Carbon Dioxide 29.0, BUN 31 H, Creatinine 1.60 H, Estim Creat Clear Calc 57.08, Est GFR (MDRD) Af Amer 57 L, Est GFR (MDRD) Non-Af 47 L, BUN/Creatinine Ratio 19.4, Glucose 273 H, Calcium 8.0 L, Phosphorus 2.3 L, Magnesium 2.1, Albumin 2.6 L 03/09/19 04:08: WBC 10.4, RBC 3.57 L, Hgb 10.5 L, Hct 31.5 L, MCV 88.2, MCH 29.4, MCHC 33.3, RDW Std Deviation 43.2, RDW Coeff of Jr 13.3, Plt Count 133 L, MPV 13.0 H, Immature Gran % (Auto) 1.100 H, Neut % (Auto) 79.5 H, Lymph % (Auto) 9.1 L, [place] % (Auto) 7.1, Eos % (Auto) 2.9, Baso % (Auto) 0.3, Absolute Neuts (auto) 8.2 H, Absolute Lymphs (auto) 0.94, Nucleated RBC % 0 Current Medications Acetaminophen (Tylenol) 650 mg PO Q6H PRN PRN PRN Reason: Pain Score 1-3/10 Albuterol/Ipratropium (Duoneb) 3 ml INHALATION Q6HWA.RT [facility] Last Admin: 03/09/19 06:27 Dose: 3 ml Documented by: Aspirin (Aspirin, Baby) 81 mg PO DAILY@0800 [facility] Last Admin: 03/08/19 10:25 Dose: 81 mg Documented by: Atorvastatin Calcium (Lipitor) 80 mg PO QHS [facility] Last Admin: 03/08/19 21:17 Dose: 80 mg Documented by: Atropine Sulfate () 0.5 mg IV UD PRN PRN Reason: HR <50 bpm Carvedilol (Coreg) 6.25 mg PO BID [facility] Last Admin: 03/08/19 21:19 Dose: 6.25 mg Documented by: Furosemide (Lasix) 40 mg IV DAILY [facility] Last Admin: 03/08/19 10:27 Dose: 40 mg Documented by: Heparin Sodium (Beef Lung) (Heparin 500 Unit/5 Ml (100/Ml)) 500 unit IV UD PRN PRN Reason: HEPARIN FLUSH Sodium Chloride () 250 mls @ 15 mls/hr IV .[id number] PRN PRN Reason: Saline Flush Pantoprazole Sodium 40 mg/ (Sodium Chloride) 110 mls @ 330 mls/hr IV Q12 [facility] Last Infusion: 03/08/19 21:39 Dose: Infused Documented by: Ceftriaxone Sodium (Rocephin) 1 gm in 50 mls @ 100 mls/hr IV Q24 [facility] Last Infusion: 03/08/19 20:23 Dose: Infused Documented by: Insulin Glargine (Lantus ([facility])) 20 units SC QHS [facility] Last Admin: 03/08/19 21:12 Dose: 20 units Documented by: Insulin Human Lispro (Humalog Kwikpen ([facility])) 0 unit SC ACHS [facility]; Protocol Last Admin: 03/08/19 21:13 Dose: 4 u Documented by: Labetalol HCl (Trandate) 5 mg IV X1 PRN PRN Reason: SBP > 160 when pulling sheath Lorazepam (Ativan) 2 mg IV Q2H PRN PRN PRN Reason: AGITATION Last Admin: 03/07/19 10:06 Dose: 2 mg Documented by: Losartan Potassium (Cozaar) 25 mg PO BID [facility] Last Admin: 03/08/19 21:19 Dose: 25 mg Documented by: Nitroglycerin (Nitrostat) 0.4 mg SUBLINGUAL Q5M PRN PRN Reason: CARDIAC/CHEST PAIN Potassium Chloride (K-Dur) [facility] Sodium Chloride () 500 ml IV BOLUS PRN PRN Reason: VASO-VAGAL PROTOCOL Sodium Chloride () 10 - 40 ml IV UD PRN PRN Reason: SALINE FLUSH Last Admin: 03/07/19 10:08 Dose: 10 ml Documented by: Ticagrelor (Brilinta) 90 mg PO BID [facility] Last Admin: 03/08/19 21:17 Dose: 90 mg Documented by: STROKE Vital Signs/Narrative: Vital Signs Temp Pulse Resp BP Pulse Ox 03/09/19 06:27 77 16 03/09/19 06:00 76 14 157/66 H 96 03/09/19 05:00 76 13 136/70 H 94 03/09/19 04:00 97.8 F 73 13 136/69 H 96 Medical Necessity - Tobacco Use Smoking Status: Unknown if ever smoked Tobacco Use: Non-smoker Assessment/Plan All Active Problems (Last Updated 03/06/19 @ 08:39 by Chelsea Lomax) STEMI (ST elevation myocardial infarction) (Acute 03/05/19) Syncope and collapse (Acute) Syncope (Acute) Bradycardia (Acute) Patient presented with chest pain found to have ST segment elevation ME (acute inferior and posterior wall ME underwent emergency angioplasty with ESTEBAN to RCA/PDA on 03/05/2019. Patient was also noted to have markedly decreased EF from 35% in January to 15 to 20%. 1. Acute ST segment elevation ME ~ acute inferior and posterior wall ME underwent emergency angioplasty with ESTEBAN to RCA/PDA on 03/05/2019. Patient was also noted to have markedly decreased EF from 35% in January to 15 to 20%. 2. Ischemic cardiomyopathy with an ejection fraction of 15 to 20% ~Patient currently on Lasix 2. Acute hypoxic respiratory failure ~Secondary to flash pulmonary edema as a result of patient's ischemic cardiomyopathy patient was on the vent weaned off on 03/07/2019 4. Cardiogenic shock ~patient had a balloon pump which has since been discontinued 5. Dyslipidemia ~patient is on statin therapy, continued at home dose 6. Hypertension ~ blood pressure controlled, home medications continued with dose adjustment as needed 7. 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 Diabetes mellitus type II ~Controlled patient's oral hypoglycemics held. Placed on long acting insulin, Accu-Cheks a.c. and at bedtime and covered with sliding scale insulin 9. Chronic kidney disease stage III ?Secondary to diabetic nephropathy kidney function at baseline 10. Depression with anxiety ?Patient is on SSRI 11. DVT prophylaxis ?SC heparin Code Visit Inpatient E&M: 98067 Subs Hosp L2
--- NOTE | 2019-03-09 07:51 | PN_ITS ---
Subjective: Patient did well overnight. Patient's transfer from the intensive care unit was held secondary to hypotension, but has responded well to decrease Coreg dosing. No complaints this morning. Patient states nausea has resolved. Patient tolerating p.o. without difficulty. General: Alert, Oriented x3, Cooperative, No apparent distress, Well developed, Well nourished, - - Appears older than stated age. Speaking in full sentences. HEENT: Atraumatic, PERRLA, EOMI, Normocephalic, - - No scleral icterus or injection Oral: Moist Mucosa, No Gingival or Mucosal Lesions/ Ulcerations Neck: Supple, No JVD, No Nodes, Trachea Midline Lungs: No rhonchi, No wheeze, No rales, Diminished, - - Symmetric expansion. No dullness to percussion. Cardiovascular: Regular rate, Regular Rhythm, Normal S1, Normal S2, No murmurs, No rub noted, No Gallop Abdomen: Bowel Sounds Present, Soft, Non Tender, Non-Distended Extremities: No cyanosis, No edema, Capillary Refill Less than 3 Seconds Skin: No rashes, No breakdown, - - Multiple tattoos Musculoskeletal: No Tenderness to Palpation of Joints or Extremities, No Muscle Wasting Lymphatic: No Cervical, Supraclavicular, or Inguinal Adenopathy Neurological: Cranial nerves II-XII grossly intact, Neuro grossly intact Psych/Mental Status: Normal Affect, Appropriate Vital Signs Temp Pulse Resp BP Pulse Ox 36.6 C 83 19 H 159/69 H 95 03/09/19 04:00 03/09/19 07:00 03/09/19 07:00 03/09/19 07:00 03/09/19 07:00 Oxygen Flow Rate (L/min) 2 Oxygen Delivery Method Room Air Weight: 96.6 kg Body Mass Index (BMI) 26.4 Finger Stick Blood Glucose 122 Intake and Output for Last 24 Hours 03/07/19 03/08/19 03/09/19 23:59 23:59 23:59 Intake Total 910.28 / 970.28 1394.67 / 1594.67 250 / 250 Output Total 1375 / 1800 1725 / 2175 450 / 450 Balance -464.72 / -829.72 -330.33 / -580.33 -200 / -200 Labs (Last 48 Hours) 03/07/19 03/07/19 03/07/19 08:00 09:58 12:55 WBC RBC Hgb Hct MCV MCH MCHC RDW Std Deviation RDW Coeff of Jr Plt Count MPV Immature Gran % (Auto) Neut % (Auto) Lymph % (Auto) [place] % (Auto) Eos % (Auto) Baso % (Auto) Absolute Neuts (auto) Absolute Lymphs (auto) Nucleated RBC % APTT 48.3 H Activated Clotting Time 147 H Sodium Potassium Chloride Carbon Dioxide Anion Gap BUN Creatinine Estim Creat Clear Calc Est GFR (MDRD) Af Amer Est GFR (MDRD) Non-Af BUN/Creatinine Ratio Glucose Calcium Phosphorus Magnesium Albumin POC Glucose 280 H 03/07/19 03/08/19 03/08/19 17:56 01:39 04:40 WBC 14.7 H RBC 4.10 L Hgb 12.3 L Hct 35.6 L MCV 86.8 MCH 30.0 MCHC 34.6 RDW Std Deviation 42.2 RDW Coeff of Jr 13.5 Plt Count 136 L MPV 12.9 H Immature Gran % (Auto) 1.000 H Neut % (Auto) 86.6 H Lymph % (Auto) 4.7 L [place] % (Auto) 6.2 Eos % (Auto) 1.2 Baso % (Auto) 0.3 Absolute Neuts (auto) 12.8 H Absolute Lymphs (auto) 0.70 L Nucleated RBC % 0 APTT Activated Clotting Time Sodium Potassium Chloride Carbon Dioxide Anion Gap BUN Creatinine Estim Creat Clear Calc Est GFR (MDRD) Af Amer Est GFR (MDRD) Non-Af BUN/Creatinine Ratio Glucose Calcium Phosphorus Magnesium Albumin POC Glucose 295 H 234 H 03/08/19 03/08/19 03/08/19 04:40 11:44 16:47 WBC RBC Hgb Hct MCV MCH MCHC RDW Std Deviation RDW Coeff of Jr Plt Count MPV Immature Gran % (Auto) Neut % (Auto) Lymph % (Auto) [place] % (Auto) Eos % (Auto) Baso % (Auto) Absolute Neuts (auto) Absolute Lymphs (auto) Nucleated RBC % APTT Activated Clotting Time Sodium 140 Potassium 3.0 L Chloride 102 Carbon Dioxide 30.0 Anion Gap 8 BUN 28 H Creatinine 1.62 H Estim Creat Clear Calc 56.38 Est GFR (MDRD) Af Amer 56 L Est GFR (MDRD) Non-Af 46 L BUN/Creatinine Ratio 17.3 Glucose 217 H Calcium 8.2 L Phosphorus 2.4 L Magnesium 1.2 L Albumin POC Glucose 256 H 289 H 03/08/19 03/09/19 03/09/19 21:12 04:08 04:08 WBC 10.4 RBC 3.57 L Hgb 10.5 L Hct 31.5 L MCV 88.2 MCH 29.4 MCHC 33.3 RDW Std Deviation 43.2 RDW Coeff of Jr 13.3 Plt Count 133 L MPV 13.0 H Immature Gran % (Auto) 1.100 H Neut % (Auto) 79.5 H Lymph % (Auto) 9.1 L [place] % (Auto) 7.1 Eos % (Auto) 2.9 Baso % (Auto) 0.3 Absolute Neuts (auto) 8.2 H Absolute Lymphs (auto) 0.94 Nucleated RBC % 0 APTT Activated Clotting Time Sodium 141 Potassium 3.5 Chloride 106 Carbon Dioxide 29.0 Anion Gap BUN 31 H Creatinine 1.60 H Estim Creat Clear Calc 57.08 Est GFR (MDRD) Af Amer 57 L Est GFR (MDRD) Non-Af 47 L BUN/Creatinine Ratio 19.4 Glucose 273 H Calcium 8.0 L Phosphorus 2.3 L Magnesium 2.1 Albumin 2.6 L POC Glucose 302 H Microbiology 03/06/19 09:50 Sputum, Induced/Lukens Gram Stain - Final 03/06/19 09:50 Sputum, Induced/Lukens Respiratory Culture - Final Haemophilus influenzae 03/06/19 12:00 Blood Culture (Wb) - Left Wrist Blood Culture - Preliminary No growth in 48 hours. 03/06/19 06:50 Urine Catheter - Barnhart Urine Culture - Final Culture exhibits no growth. 03/06/19 06:50 Blood Culture (Wb) - Anticubital Left Blood Culture - Preliminary No growth in 48 hours. Medical Necessity - Tobacco Use Smoking Status: Unknown if ever smoked Tobacco Use: Non-smoker Assessment/Plan All Active Problems (Last Updated 03/06/19 @ 08:39 by Chelsea Lomax) STEMI (ST elevation myocardial infarction) (Acute 03/05/19) Syncope and collapse (Acute) Syncope (Acute) Bradycardia (Acute) RECOMMENDATIONS: 1. Cardiac optimization per cardiology 2. Increase activity as tolerated 3. Transition to q. before meals at bedtime blood sugars 4. Continue to monitor electrolytes 5. Continue PPI twice daily until EGD can be completed as an outpatient 6. Hemodynamically stable on room air. Will sign off from a critical care perspective IMPRESSIONS: 1. Cardiogenic shock secondary to ST elevation NC with RCA stenting Patient with multiple coronary artery lesions and a progressive loss of EF from 60% to 15 - 20% in a relatively short time. Patient currently had an intra -aortic balloon pump in place, but this was discontinued and patient is tolerating well. Patient had some hypertension yesterday, but Coreg was increased. Transient hypotension appears to be secondary to medications. Patient is not showing any signs or symptoms of sepsis. Patient currently hemodynamically stable on room air. Will sign off from a critical care perspective. 2. Acute hypoxic respiratory failure secondary to probable acute CHF secondary to #1 Patient doing very well at this time. Patient is on room air. Would continue with DuoNeb therapy while awake. Patient would benefit from outpatient pulmonary function test given smoking history for quantification and clarification of lung function. Patient does not require steroids from my perspective. Patient can follow-up with us as an outpatient if requested 3. Acute blood loss anemia secondary to upper GI bleed Patient reportedly with large bloody removal from the OG on placement. Unclear if this is related to an ulcer versus stress gastritis in the setting of anticoagulation. Patient has been transitioned to Protonix twice daily. This should be continued until patient can have investigation of his GI system. This can likely be completed as an outpatient as hemoglobins have been stable 4. Recent CVA/hypertension/CKD stage III/chronic pain/uncontrolled diabetes mellitus Complicates care, management, recovery and prognosis. Patient currently on a p.o. diet. Okay to continue to q. before meals and at bedtime blood sugars. Code Visit Inpatient E&M: 94313 Subs Hosp L2
[2019-03-09] MEDS: Insulin Lispro 100 UNIT/ML INSULN.PEN SC ×4 (08:19→21:39)
[2019-03-09] MEDS: Aspirin 81 MG TAB.CHEW PO (08:20)
[2019-03-09] MEDS: Losartan Potassium 25 MG Tablet PO ×2 (08:21→21:39)
[2019-03-09] MEDS: Carvedilol 6.25 MG Tablet PO (08:21)
[2019-03-09] MEDS: TICAGRELOR 90 MG TABLET PO ×2 (08:21→21:38)
[2019-03-09] MEDS: Furosemide 40 MG/4 ML Vial IV (08:22)
--- NOTE | 2019-03-09 08:27 | PN.CARD_ITS ---
Subjectve: Patient seen and evaluated. Appears to be doing better. No cardiac complaints Objective: Vital Signs Temp Pulse Resp BP Pulse Ox 97.8 F 83 19 H 159/69 H 95 03/09/19 04:00 03/09/19 07:00 03/09/19 07:00 03/09/19 07:00 03/09/19 07:00 Oxygen Flow Rate (L/min) 2 Oxygen Delivery Method Room Air Weight: 212 lb 15.465 oz Body Mass Index (BMI) 26.4 Finger Stick Blood Glucose 122 Intake and Output for Last 24 Hours 03/07/19 03/08/19 03/09/19 23:59 23:59 23:59 Intake Total 910.28 / 970.28 1394.67 / 1594.67 250 / 250 Output Total 1375 / 1800 1725 / 2175 450 / 450 Balance -464.72 / -829.72 -330.33 / -580.33 -200 / -200 General: Awake, Alert, Oriented x 3 HEENT: PERRL, EOMI, Sclera Non Icteric Neck: Supple, Good ROM, No Lymph Node Enlargement Lungs: Clear to auscultation Cardiovascular: Regular Rhythm, Normal S1, Normal S2, No Murmurs, No Rubs, No Gallops Vascular: No Carotid Bruits, Normal Femoral Pulses, Normal Radial Pulses, Normal Dorsalis Pedal Pulse, Normal Posterior Tibial Pulses Abdomen: Bowel Sounds Present, Soft, Non Tender, No HSM, No Organomegaly Extremities: No Cyanosis, No Clubbing, No edema Musculoskeletal: No Erythema Skin: No Rashes Lymphatic: No Lymph Node Enlargement Neurological: No Focal Motor or Sensory Deficit Psych/Mental Status: Appropriate 03/09/19 04:08: Sodium 141, Potassium 3.5, Chloride 106, Carbon Dioxide 29.0, BUN 31 H, Creatinine 1.60 H, Est GFR (MDRD) Af Amer 57 L, Est GFR (MDRD) Non-Af 47 L, BUN/Creatinine Ratio 19.4, Glucose 273 H, Calcium 8.0 L, Phosphorus 2.3 L, Magnesium 2.1 03/09/19 04:08: WBC 10.4, RBC 3.57 L, Hgb 10.5 L, Hct 31.5 L, MCV 88.2, MCH 29.4, MCHC 33.3, Plt Count 133 L, MPV 13.0 H, Immature Gran % (Auto) 1.100 H, Neut % (Auto) 79.5 H, Lymph % (Auto) 9.1 L, [place] % (Auto) 7.1, Eos % (Auto) 2.9, Baso % (Auto) 0.3, Absolute Neuts (auto) 8.2 H, Nucleated RBC % 0 Rhythm: EKG: ECHO: Stress Test: Cardiac Cath: PCI: CT Surgery: Holter monitor: EPS: PPM: CXR: Chest CT Scan: Medical Necessity - Tobacco Use Smoking Status: Unknown if ever smoked Tobacco Use: Non-smoker Assessment/Plan 1. Coronary artery disease: The patient presented with what appeared to be acute inferior and true posterior wall myocardial infarction and underwent emergent angioplasty and drug-eluting stenting x4 to the right coronary artery/PDA on 03/05/2019. In addition the patient has severe multivessel coronary disease including his left main, LAD, left circumflex and several of the main branches. He has severe LV dysfunction with an EF of 35% in January 2019 at which time he had a CVA, and now his ejection fraction is reduced to 15 to 20% in light of his recent myocardial infarction. * He appears to be doing better at this time * We will continue him on aspirin 81 mg a day * Continue Brilinta 90 mg twice daily * Continue high intensity statin * We will increase his carvedilol to 12.5 mg twice a day * Continue Lasix 40 mg orally * Patient can be transferred to the progressive care unit 2. Hyperlipidemia: Continue antilipid therapy. At this point it appears that the patient is a DNR and no coronary revascularization would be undertaken. He will continue on medical therapy attempting to get him to maximum medical therapy. * Further recommendations regarding his care would be undertaken prior to his discharge and also has an outpatient. * * Thank you for allowing me to participate in the care of your patient. Please don't hesitate to call if any issues arise
[2019-03-09] MEDS: Ceftriaxone 1 GM/50 ML BAG IV (09:10)
--- NOTE | 2019-03-09 09:34 | NURSING ---
report called to [facility] ,transferred per bed with belongings to room 108
[2019-03-09 11:30] LABS: Bedside Glucose 341 mg/dL (70-110)
[2019-03-09 17:31] LABS: Bedside Glucose 312 mg/dL (70-110)
[2019-03-09] MEDS: 0.9% Saline Lock 10 ML Syringe IV (21:50)
[2019-03-09] MEDS: Carvedilol 12.5 MG Tablet PO (21:54)
[2019-03-09] MEDS: Atorvastatin Calcium 80 MG Tablet PO (21:54)
[2019-03-09] MEDS: Heparin Injection (Vial) 5,000 UNIT/ML VIAL 5000 UNIT SC (23:34)
[2019-03-10] MEDS: 0.9% Saline Lock 10 ML Syringe IV (00:57)
[2019-03-10 01:10] LABS: Bedside Glucose 297 mg/dL (70-110)
[2019-03-10 03:03] VITALS: PULSE 67
[2019-03-10 03:51] VITALS: BP 114/68; PULSE 66; RESP 17; TEMP 36.6; O2SAT 94
[2019-03-10 06:47] VITALS: PULSE 88; RESP 20; O2SAT 95
[2019-03-10] MEDS: Ipratropium/Albuterol Sulfate 3 ML AMPUL.NEB INHALATION (06:47)
[2019-03-10] MEDS: Insulin Lispro 100 UNIT/ML INSULN.PEN SC ×2 (06:48→11:49)
[2019-03-10] MEDS: Heparin Injection (Vial) 5,000 UNIT/ML VIAL 5000 UNIT SC (06:48)
[2019-03-10 07:05] VITALS: PULSE 93
--- NOTE | 2019-03-10 07:24 | PCM.PN.HOSP ---
Patient Problems: Active and Suspected Problems (Last Updated 03/06/19 @ 08:39 by Chelsea Lomax) STEMI (ST elevation myocardial infarction) (Acute 03/05/19) Reason for Visit: Follow-up; acute ST segment elevation [place] Subjective: Patient seen, was transferred from the ICU to the progressive care unit the day prior. Has had a relatively uneventful stay. Denies any chest pain no nausea no vomiting. Consult placed to case management regarding disposition. Objective: GENERAL: cooperative HEENT: Atraumatic; EYES; Anicteric, Normal Conjunctiva NECK; supple, normal thyroid, RESPIRATORY: Diminished to auscultation CARDIOVASCULAR: Regular S1 S2, GI: soft, normoactive bowel sounds, : No Renal angle tenderness; EXTREMITIES: No edema, no clubbing, MUSCULOSKELETAL: no muscle waisting NEURO: Awake; left lower extremity weakness SKIN: No Rash PSYCH; Flat affect Vitals/I&O's: Vital Signs Temp Pulse Resp BP Pulse Ox 97.8 F 66 17 114/68 94 03/10/19 03:51 03/10/19 03:51 03/10/19 03:51 03/10/19 03:51 03/10/19 03:51 Oxygen Flow Rate (L/min) 2 Oxygen Delivery Method Room Air Weight: 96.2 kg Body Mass Index (BMI) 26.4 Finger Stick Blood Glucose 122 Intake and Output for Last 24 Hours 03/08/19 03/09/19 03/10/19 23:59 23:59 23:59 Intake Total 1394.67 / 1594.67 1967.25 / 1967.25 81.5 / 81.5 Output Total 1725 / 2175 2200 / 2200 280 / 280 Balance -330.33 / -580.33 -232.75 / -232.75 -198.5 / -198.5 Microbiology Past 72 Hours 03/06/19 09:50 Sputum, Induced/Lukens Gram Stain - Final 03/06/19 09:50 Sputum, Induced/Lukens Respiratory Culture - Final Haemophilus influenzae 03/06/19 12:00 Blood Culture (Wb) - Left Wrist Blood Culture - Preliminary No growth in 48 hours. 03/06/19 06:50 Urine Catheter - Barnhart Urine Culture - Final Culture exhibits no growth. 03/06/19 06:50 Blood Culture (Wb) - Anticubital Left Blood Culture - Preliminary No growth in 48 hours. Laboratory Results 03/09/19 11:21: POC Glucose 341 H 03/09/19 17:22: POC Glucose 312 H 03/09/19 21:37: POC Glucose 297 H Current Medications Acetaminophen (Tylenol) 650 mg PO Q6H PRN PRN PRN Reason: Pain Score 1-3/10 Albuterol/Ipratropium (Duoneb) 3 ml INHALATION Q6HWA.RT [facility] Last Admin: 03/10/19 06:47 Dose: 3 ml Documented by: Aspirin (Aspirin, Baby) 81 mg PO DAILY@0800 [facility] Last Admin: 03/09/19 08:20 Dose: 81 mg Documented by: Atorvastatin Calcium (Lipitor) 80 mg PO QHS [facility] Last Admin: 03/09/19 21:54 Dose: 80 mg Documented by: Atropine Sulfate () 0.5 mg IV UD PRN PRN Reason: HR <50 bpm Carvedilol (Coreg) 12.5 mg PO BID [facility] Last Admin: 03/09/19 21:54 Dose: 12.5 mg Documented by: Furosemide (Lasix) 40 mg PO DAILY [facility] Heparin Sodium (Beef Lung) (Heparin 500 Unit/5 Ml (100/Ml)) 500 unit IV UD PRN PRN Reason: HEPARIN FLUSH Heparin Sodium (Porcine) (Heparin Na) 5,000 unit SC Q8 [facility] Last Admin: 03/10/19 06:48 Dose: 5,000 unit Documented by: Sodium Chloride () 250 mls @ 15 mls/hr IV .[id number] PRN PRN Reason: Saline Flush Last Infusion: 03/10/19 00:57 Dose: 0 mls/hr Documented by: Pantoprazole Sodium 40 mg/ (Sodium Chloride) 110 mls @ 330 mls/hr IV Q12 [facility] Last Infusion: 03/09/19 22:11 Dose: Infused Documented by: Ceftriaxone Sodium (Rocephin) 1 gm in 50 mls @ 100 mls/hr IV Q24 [facility] Last Infusion: 03/09/19 09:44 Dose: Infused Documented by: Insulin Glargine (Lantus (Bk)) 20 units SC QHS [facility] Last Admin: 03/09/19 21:39 Dose: 20 units Documented by: Insulin Human Lispro (Humalog Kwikpen (Bk)) 0 unit SC ACHS [facility]; Protocol Last Admin: 03/10/19 06:48 Dose: 3 u Documented by: Labetalol HCl (Trandate) 5 mg IV X1 PRN PRN Reason: SBP > 160 when pulling sheath Lorazepam (Ativan) 2 mg IV Q2H PRN PRN PRN Reason: AGITATION Last Admin: 03/07/19 10:06 Dose: 2 mg Documented by: Losartan Potassium (Cozaar) 25 mg PO BID [facility] Last Admin: 03/09/19 21:39 Dose: 25 mg Documented by: Nitroglycerin (Nitrostat) 0.4 mg SUBLINGUAL Q5M PRN PRN Reason: CARDIAC/CHEST PAIN Potassium Chloride (K-Dur) 40 meq PO DAILYCM [facility] Last Admin: 03/09/19 08:21 Dose: 40 meq Documented by: Sodium Chloride () 500 ml IV BOLUS PRN PRN Reason: VASO-VAGAL PROTOCOL Sodium Chloride () 10 - 40 ml IV UD PRN PRN Reason: SALINE FLUSH Last Admin: 03/10/19 00:57 Dose: 10 ml Documented by: Ticagrelor (Brilinta) 90 mg PO BID [facility] Last Admin: 03/09/19 21:38 Dose: 90 mg Documented by: STROKE Vital Signs/Narrative: Vital Signs Temp Pulse Resp BP Pulse Ox 03/10/19 03:51 97.8 F 66 17 114/68 94 Medical Necessity - Tobacco Use Smoking Status: Unknown if ever smoked Tobacco Use: Non-smoker Assessment/Plan All Active Problems (Last Updated 03/06/19 @ 08:39 by Chelsea Lomax) STEMI (ST elevation myocardial infarction) (Acute 03/05/19) Syncope and collapse (Acute) Syncope (Acute) Bradycardia (Acute) Patient presented with chest pain found to have ST segment elevation [place] (acute inferior and posterior wall [place] underwent emergency angioplasty with ESTEBAN to RCA/PDA on 03/05/2019. Patient was also noted to have markedly decreased EF from 35% in January to 15 to 20%. 1. Acute ST segment elevation [place] ~ acute inferior and posterior wall [place] underwent emergency angioplasty with ESTEBAN to RCA/PDA on 03/05/2019. Patient was also noted to have markedly decreased EF from 35% in January to 15 to 20%. 2. Ischemic cardiomyopathy with an ejection fraction of 15 to 20% ~Patient currently on Lasix 2. Acute hypoxic respiratory failure ~Secondary to flash pulmonary edema as a result of patient's ischemic cardiomyopathy patient was on the vent weaned off on 03/07/2019 4. Cardiogenic shock ~patient had a balloon pump which has since been discontinued 5. Dyslipidemia ~patient is on statin therapy, continued at home dose 6. Hypertension ~ blood pressure controlled, home medications continued with dose adjustment as needed 7. 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 Diabetes mellitus type II ~Controlled patient's oral hypoglycemics held. Placed on long acting insulin, Accu-Cheks a.c. and at bedtime and covered with sliding scale insulin 9. Chronic kidney disease stage III ?Secondary to diabetic nephropathy kidney function at baseline 10. Depression with anxiety ?Patient is on SSRI 11. DVT prophylaxis ?SC heparin 12. Physical deconditioning ?Consulted PT OT as well as case management with plans for patient to be discharged either to the inpatient rehab unit or nursing home facility to continue with his recovery Code Visit Inpatient E&M: 46798 Subs Hosp L2
--- NOTE | 2019-03-10 08:24 | PN.CARD_ITS ---
Subjectve: Patient continues to do well. No acute distress. Awaiting evaluation for inpatient rehab. Telemetry negative. Creatinine improving. Objective: Vital Signs Temp Pulse Resp BP Pulse Ox 97.8 F 93 20 H 114/68 95 03/10/19 03:51 03/10/19 07:05 03/10/19 06:47 03/10/19 03:51 03/10/19 06:47 Oxygen Flow Rate (L/min) 2 Oxygen Delivery Method Room Air Weight: 212 lb 1.355 oz Body Mass Index (BMI) 26.4 Finger Stick Blood Glucose 122 Intake and Output for Last 24 Hours 03/08/19 03/09/19 03/10/19 23:59 23:59 23:59 Intake Total 1394.67 / 1594.67 1967.25 / 1967.25 81.5 / 81.5 Output Total 1725 / 2175 2200 / 2200 280 / 280 Balance -330.33 / -580.33 -232.75 / -232.75 -198.5 / -198.5 General: Awake, Alert, Oriented x 3 HEENT: PERRL, EOMI, Sclera Non Icteric Neck: Supple, Good ROM, No Lymph Node Enlargement Lungs: Clear to auscultation Cardiovascular: Regular Rhythm, Normal S1, Normal S2, No Murmurs, No Rubs, No Gallops Vascular: No Carotid Bruits, Normal Femoral Pulses, Normal Radial Pulses, Normal Dorsalis Pedal Pulse, Normal Posterior Tibial Pulses Abdomen: Bowel Sounds Present, Soft, Non Tender, No HSM, No Organomegaly Extremities: No Cyanosis, No Clubbing, No edema Neurological: No Focal Motor or Sensory Deficit Rhythm: EKG: ECHO: Stress Test: Cardiac Cath: PCI: CT Surgery: Holter monitor: EPS: PPM: CXR: Chest CT Scan: Medical Necessity - Tobacco Use Smoking Status: Unknown if ever smoked Tobacco Use: Non-smoker Assessment/Plan 1. Coronary artery disease: The patient presented with what appeared to be acute inferior and true posterior wall myocardial infarction and underwent emergent angioplasty and drug-eluting stenting x4 to the right coronary artery/PDA on 03/05/2019. In addition the patient has severe multivessel coronary disease including his left main, LAD, left circumflex and several of the main branches. He has severe LV dysfunction with an EF of 35% in January 2019 at which time he had a CVA, and now his ejection fraction is reduced to 15 to 20% in light of his recent myocardial infarction. Would recommend repeat echocardiogram in 3 months time to determine if it has improved. Patient was successfully extubated yesterday, and his balloon pump was removed later that day. His blood pressure and heart rate are actually much better, in fact hypertensive and tachycardic. I recommended that we increase his Coreg to 12.5 mg p.o. twice daily, and increase his Cozaar to 25 mg p.o. twice daily for afterload reduction. In the meantime he will continue his Coreg, losartan, we will add Lasix 40 mg p.o. daily to optimize his pulmonary pressures and LV dysfunction, and would recommend switching him to hydralazine from those are if his creatinine goes above 2.0. In addition he will continue his baby aspirin and Brilinta. Creatinine is actually improved on Cozaar, so we will continue Cozaar therapy. His balloon pump removal site is clean/dry/intact without evidence of thrills, bruits or hematoma. He has 1+ bilateral DP and PT pulses. No tenderness. If after 3 months the patient's ejection fraction has improved, and his CVA has resolved completely, consideration may be made for possible multivessel bypass surgery of his LAD and left circumflex system. The timing of this will need to be determined based upon his recent myocardial infarction, recent CVA, need for dual antiplatelet therapy, and LV function as well as functional status. Can revisit this with the patient and family going forward. If however the patient has permanent disability from his CVA, would recommend ongoing medical therapy going forward. 2. Hyperlipidemia: Continue antilipid therapy. 3. Coronary corrective measures going forward: I had a long thorough discussion with the patient's family yesterday and described to them the complexity of his coronary disease located in his left main, LAD and left circumflex. I would not recommend proceeding with intervention at this time as this would be very high risk and if he was not a surgical candidate, and is currently DNR, that would be very problematic for corrective measures. My suspicion is is that we will most likely proceed with medical management of his remaining coronary arteries given his severe LV dysfunction, recent CVA, and now this more recent myocardial infarction. Any attempted intervention would have to have his DNR suspended, and he would have to be deemed a surgical candidate prior to that should there be a critical complication during his intervention. Patient's family has agreed, and all questions have been answered. Prior to his intervention, we were unaware of his DNR status at the retirement, but this is now been re- invoked going forward. Patient is currently DNR. 4. Patient is awaiting transfer to inpatient rehab for further convalescence. Patient will follow-up with Dr. Pearce going forward. Thank you very much for the opportunity to participate in the cardiac care of your patient. Code Visit Inpatient E&M: [id number] Subs Hosp L2
[2019-03-10 08:26] LABS: Bedside Glucose 253 mg/dL (70-110)
[2019-03-10 09:02] VITALS: BP 133/77; PULSE 70; RESP 16; TEMP 36.7; O2SAT 97
[2019-03-10] MEDS: Aspirin 81 MG TAB.CHEW PO (09:10)
[2019-03-10] MEDS: Losartan Potassium 25 MG Tablet PO (09:10)
[2019-03-10] MEDS: Carvedilol 12.5 MG Tablet PO (09:13)
[2019-03-10] MEDS: Furosemide 40 MG Tablet PO (09:13)
[2019-03-10] MEDS: Ceftriaxone 1 GM/50 ML BAG IV (09:14)
[2019-03-10] MEDS: TICAGRELOR 90 MG TABLET PO (09:26)
--- NOTE | 2019-03-10 10:11 | PCM.TXEXTCAR ---
- Diet 03/07/19 10:35 Diet: Cardiac: Carb-Controlled - Routine Orders/Code Status Code Status: DNRCC-A - Wound(s) L knee Wound Type: Abrasion Right Groin, post IABP sheath site Wound Type: Puncture - Therapies Physical Therapy: Eval and Treat Occupational Therapy: Eval and Treat - Allergies/Procedures Done in Hospital Allergies/Adverse Reactions: Allergies nifedipine [From Adalat] Allergy (Verified 02/27/19 15:01) Unknown - Type of Care/Length of Stay Estimated LOS: Convalescent Care Less Than 30 days Type of Care Needed: Skilled Rehab Potential: Good Prognosis: Good - Additional Orders/Day of Discharge Day of Discharge: 03/10/19 - Dietary and Speech Recommendations Dietitian Recommendations/Changes: Recommend Cardiac: CHO controlled. Will provide pt ONS Glucerna Shake 240 ml at meals to promote PO intake. - Follow Up Care Primary Care Physician: Chema Mckeon DO [Primary Care Provider] - Please follow up with your Primary Care Physician in: in 2 weeks Please Follow Up With: Cortez Pearce MD When: as scheduled
--- NOTE | 2019-03-10 10:12 | DS.PCM_ITS ---
Discharge Date and Diagnosis - Problem List Patient Problems: Active and Suspected Problems (Last Updated 03/06/19 @ 08:39 by Chelsea Lomax) STEMI (ST elevation myocardial infarction) (Acute 03/05/19) Date of Admission: 03/05/19 Date of Discharge: 03/10/19 - Primary Discharge Diagnosis Active and Suspected Problems (Last Updated 03/06/19 @ 08:39 by Chelsea Lomax) STEMI (ST elevation myocardial infarction) (Acute 03/05/19) - Secondary Discharge Diagnosis Chronic Problems (Last Updated 03/06/19 @ 08:39 by Chelsea Lomax) Arteriosclerosis of coronary artery in patient with history of myocardial infarction (Chronic) STEMI 03/05/2019:Triple vessel CAD of the LM, LAD, LCX RCA Successful PTCA/ESTEBAN of mid RCA with a 2.25 x 38 Promus Synergy, post dilated throughout with a 2.5 x 8 NC balloon; 99%-->0%, no dissection. Successful PTCA/ESTEBAN proximal RCA with a 2.5 x 16 Promus Synergy, post dilated with a 2.5 x 8 NC balloon; 75%-->0%, no dissection. Successful PTCA/ESTEBAN distal RCA with transition into PDA utilizing a 2.25 x 38 Promus Synergy, followed upstream with a 2.25 x 16 Promus Synergy, post dilated with a 2.5 x 8 NC in the 16mm stented area only; 75%-->0%, no dissection or perforation. Stented coronary artery (Chronic 03/06/19) Triple vessel CAD of the LM, LAD, LCX RCA Successful PTCA/ESTEBAN of mid RCA with a 2.25 x 38 Promus Synergy, post dilated throughout with a 2.5 x 8 NC balloon; 99%-->0%, no dissection. Successful PTCA/ESTEBAN proximal RCA with a 2.5 x 16 Promus Synergy, post dilated with a 2.5 x 8 NC balloon; 75%-->0%, no dissection. Successful PTCA/ESTEBAN distal RCA with transition into PDA utilizing a 2.25 x 38 Promus Synergy, followed upstream with a 2.25 x 16 Promus Synergy, post dilated with a 2.5 x 8 NC in the 16mm stented area only; 75%-->0%, no dissection or perforation. Hypertension (Chronic) Type 2 diabetes mellitus (Chronic) Secondary hypertension (Chronic) CVA (cerebral vascular accident) (Chronic) Noncompliance with diabetes treatment (Chronic) Hospital Course and Treatment Imaging Results: Clinical Impression(s) from Imaging Studies Chest X-Ray 03/05/19 10:00 IMPRESSION: Findings suspicious for trace edema. Electronically Signed: Macarena Richards MD at 10:35 EST Tel , Service support , Chest X-Ray 03/05/19 13:25 IMPRESSION: 1. Endotracheal and enteric tubes, as above. 2. Intra-aortic balloon pump. 3. Worsening pulmonary edema, particularly the right lung base. Electronically Signed: Jimmie Cabrera MD ([place]) at 14:23 EST , Service support , KUB X-Ray 03/05/19 13:33 IMPRESSION: 1. Enteric tube extends into the upper stomach. Air distended stomach. Electronically Signed: Jimmie Cabrera MD ([place]) at 14:22 EST , Service support , Chest X-Ray 03/06/19 05:55 Chest X-Ray 03/07/19 04:06 IMPRESSION: Lines and tubes as described above. No acute interval change. Electronically Signed: Soraya Cook MD at 5:22 EST , Service support , Operations: None Summary of Care Provided: Patient presented with chest pain found to have ST segment elevation NM (acute inferior and posterior wall NM underwent emergency angioplasty with ESTEBAN to RCA/PDA on 03/05/2019. Patient was also noted to have markedly decreased EF from 35% in January to 15 to 20%. 1. Acute ST segment elevation NM ~ acute inferior and posterior wall NM underwent emergency angioplasty with ESTEBAN to RCA/PDA on 03/05/2019. Patient was also noted to have markedly decreased EF from 35% in January to 15 to 20%. 2. Ischemic cardiomyopathy with an ejection fraction of 15 to 20% ~Patient currently on Lasix 2. Acute hypoxic respiratory failure ~Secondary to flash pulmonary edema as a result of patient's ischemic cardiomyopathy patient was on the vent weaned off on 03/07/2019 4. Cardiogenic shock ~patient had a balloon pump which has since been discontinued 5. Dyslipidemia ~patient is on statin therapy, continued at home dose 6. Hypertension ~ blood pressure controlled, home medications continued with dose adjustment as needed 7. 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 Diabetes mellitus type II ~Controlled patient's oral hypoglycemics held. Placed on long acting insulin, Accu-Cheks a.c. and at bedtime and covered with sliding scale insulin 9. Chronic kidney disease stage III ?Secondary to diabetic nephropathy kidney function at baseline 10. Depression with anxiety ?Patient is on SSRI 11. DVT prophylaxis ?SC heparin 12. Physical deconditioning ?Consulted PT OT as well as case management; patient was discharged to a [facility]dc facility Patient Problems: Active and Suspected Problems (Last Updated 03/06/19 @ 08:39 by Chelsea Lomax) STEMI (ST elevation myocardial infarction) (Acute 03/05/19) Objective: GENERAL: cooperative HEENT: Atraumatic; EYES; Anicteric, Normal Conjunctiva NECK; supple, normal thyroid, RESPIRATORY: Diminished to auscultation CARDIOVASCULAR: Regular S1 S2, GI: soft, normoactive bowel sounds, : No Renal angle tenderness; EXTREMITIES: No edema, no clubbing, MUSCULOSKELETAL: no muscle waisting NEURO: Awake; left lower extremity weakness SKIN: No Rash PSYCH; Flat affect - Physical Exam Vitals/I&O's: Vital Signs Temp Pulse Resp BP Pulse Ox 98.1 F 70 16 133/77 H 97 03/10/19 09:02 03/10/19 09:02 03/10/19 09:02 03/10/19 09:02 03/10/19 09:02 Oxygen Flow Rate (L/min) 2 Oxygen Delivery Method Room Air Weight: 96.2 kg Body Mass Index (BMI) 26.4 Finger Stick Blood Glucose 122 Intake and Output for Last 24 Hours 03/08/19 03/09/19 03/10/19 23:59 23:59 23:59 Intake Total 1394.67 / 1594.67 1967.25 / 81.5 / 81.5 Output Total 1725 / 2175 2200 / 2200 280 / 280 Balance -330.33 / -580.33 -232.75 / -232.75 -198.5 / -198.5 Microbiology Past 72 Hours 03/06/19 09:50 Sputum, Induced/Lukens Gram Stain - Final 03/06/19 09:50 Sputum, Induced/Lukens Respiratory Culture - Final Haemophilus influenzae 03/06/19 12:00 Blood Culture (Wb) - Left Wrist Blood Culture - Preliminary No growth in 48 hours. 03/06/19 06:50 Urine Catheter - Barnhart Urine Culture - Final Culture exhibits no growth. 03/06/19 06:50 Blood Culture (Wb) - Anticubital Left Blood Culture - Preliminary No growth in 48 hours. Laboratory Results 03/09/19 11:21: POC Glucose 341 H 03/09/19 17:22: POC Glucose 312 H 03/09/19 21:37: POC Glucose 297 H 03/10/19 06:43: POC Glucose 253 H Current Medications Acetaminophen (Tylenol) 650 mg PO Q6H PRN PRN PRN Reason: Pain Score 1-3/10 Albuterol/Ipratropium (Duoneb) 3 ml INHALATION Q6HWA.RT ON LICENSE OF [facility] Last Admin: 03/10/19 06:47 Dose: 3 ml Documented by: Aspirin (Aspirin, Baby) 81 mg PO DAILY@0800 ON LICENSE OF [facility] Last Admin: 03/10/19 09:10 Dose: 81 mg Documented by: Atorvastatin Calcium (Lipitor) 80 mg PO QHS ON LICENSE OF [facility] Last Admin: 03/09/19 21:54 Dose: 80 mg Documented by: Atropine Sulfate () 0.5 mg IV UD PRN PRN Reason: HR <50 bpm Carvedilol (Coreg) 12.5 mg PO BID ON LICENSE OF [facility] Last Admin: 03/10/19 09:13 Dose: 12.5 mg Documented by: Furosemide (Lasix) 40 mg PO DAILY ON LICENSE OF [facility] Last Admin: 03/10/19 09:13 Dose: 40 mg Documented by: Heparin Sodium (Beef Lung) (Heparin 500 Unit/5 Ml (100/Ml)) 500 unit IV UD PRN PRN Reason: HEPARIN FLUSH Heparin Sodium (Porcine) (Heparin Na) 5,000 unit SC Q8 ON LICENSE OF [facility] Last Admin: 03/10/19 06:48 Dose: 5,000 unit Documented by: Sodium Chloride () 250 mls @ 15 mls/hr IV .[id number] PRN PRN Reason: Saline Flush Last Infusion: 03/10/19 00:57 Dose: 0 mls/hr Documented by: Pantoprazole Sodium 40 mg/ (Sodium Chloride) 110 mls @ 330 mls/hr IV Q12 ON LICENSE OF [facility] Last Infusion: 03/09/19 22:11 Dose: Infused Documented by: Ceftriaxone Sodium (Rocephin) 1 gm in 50 mls @ 100 mls/hr IV Q24 ON LICENSE OF [facility] Last Admin: 03/10/19 09:14 Dose: 100 mls/hr Documented by: Insulin Glargine (Lantus ([facility])) 20 units SC QHS ON LICENSE OF [facility] Last Admin: 03/09/19 21:39 Dose: 20 units Documented by: Insulin Human Lispro (Humalog Kwikpen ([facility])) 0 unit SC ACHS ON LICENSE OF [facility]; Protocol Last Admin: 03/10/19 06:48 Dose: 3 u Documented by: Labetalol HCl (Trandate) 5 mg IV X1 PRN PRN Reason: SBP > 160 when pulling sheath Lorazepam (Ativan) 2 mg IV Q2H PRN PRN PRN Reason: AGITATION Last Admin: 03/07/19 10:06 Dose: 2 mg Documented by: Losartan Potassium (Cozaar) 25 mg PO BID ON LICENSE OF [facility] Last Admin: 03/10/19 09:10 Dose: 25 mg Documented by: Nitroglycerin (Nitrostat) 0.4 mg SUBLINGUAL Q5M PRN PRN Reason: CARDIAC/CHEST PAIN Potassium Chloride (K-Dur) 40 meq PO DAILYCM ON LICENSE OF [facility] Last Admin: 03/10/19 09:09 Dose: 40 meq Documented by: Sodium Chloride () 500 ml IV BOLUS PRN PRN Reason: VASO-VAGAL PROTOCOL Sodium Chloride () 10 - 40 ml IV UD PRN PRN Reason: SALINE FLUSH Last Admin: 03/10/19 00:57 Dose: 10 ml Documented by: Ticagrelor (Brilinta) 90 mg PO BID ON LICENSE OF [facility] Last Admin: 03/10/19 09:26 Dose: 90 mg Documented by: Discharge Diet: Low fat/ Low Cholesterol, 1800 Calorie Control Diet Home Medications: Medications to take at Discharge Atorvastatin Calcium [Lipitor] 80 mg PO QHS tab 02/10/19 Pantoprazole Sodium [Protonix] 40 mg PO DAILY tab 02/10/19 Sertraline HCl [Zoloft] 50 mg PO DAILY tab 02/10/19 diazepam 5 mg tablet 5 mg PO BID 02/27/19 duloxetine 60 mg capsule,delayed release 60 mg PO DAILY 02/27/19 pregabalin 150 mg capsule 150 mg PO BID 02/27/19 sennosides 8.6 mg-docusate sodium 50 mg tablet 2 tab PO BID PRN tab 02/27/19 Acetaminophen [Tylenol Tablet] 650 mg PO Q6H PRN PRN tab 03/10/19 Aspirin [Aspirin, Baby] 81 mg PO DAILY@0800 #60 tab.chew 03/10/19 Carvedilol [Coreg (Beta Jeffrey)] 12.5 mg PO BID #100 tab 03/10/19 Furosemide [Lasix] 40 mg PO DAILY #60 tab 03/10/19 Insulin Glargine [Lantus SoloStar Pen] 20 units SUBCUT QHS pen 03/10/19 Insulin Lispro [Humalog KwikPen] See Protocol SUBCUT ACHS insuln.pen 03/10/19 Ipratropium/Albuterol Sulfate [Duoneb] 3 ml INHALATION Q6HWA.RT ampul.neb 03/10/19 Losartan Potassium [Cozaar] 25 mg PO BID #120 tab 03/10/19 Nitroglycerin (INPATIENT USE) [Nitrostat] 0.4 mg SUBLINGUAL Q5M PRN #0 tab.subl 03/10/19 Potassium Chloride [K-Dur] 40 meq PO DAILYCM tab 03/10/19 Ticagrelor [Brilinta] 90 mg PO BID #120 tab 03/10/19 Following Prescrptions Were Given to Patient: Aspirin [Aspirin, Baby] 81 mg PO DAILY@0800 #60 tab.chew Transmission Status: Received by [facility] Ticagrelor [Brilinta] 90 mg PO BID #120 tab Transmission Status: Received by [facility] Carvedilol [Coreg (Beta Jeffrey)] 12.5 mg PO BID #100 tab Transmission Status: Received by [facility] Losartan Potassium [Cozaar] 25 mg PO BID #120 tab Transmission Status: Received by [facility] Furosemide [Lasix] 40 mg PO DAILY #60 tab Transmission Status: Received by [facility] Other Amb Orders: Phase II, Outpatient Cardiac Rehab Location: None Selected Primary Care Physician: Chema Mckeon DO [Primary Care Provider] - Please Follow Up With: Cortez Pearce MD When: As scheduled Disposition: Care Home facility Minutes spent on discharge:: 35 Patient Condition:: Stable Medical Necessity - Tobacco Use Smoking Status: Unknown if ever smoked Tobacco Use: Non-smoker Meaningful Use Info Meaningful Use Diagnoses (Choose all that apply): AMI - AMI Aspirin given w/in 24hrs of arrival?: Yes ASA at discharge?: Yes Statins at discharge?: Yes Danilo/ARB at discharge?: Yes Beta Jeffrey at discharge?: Yes Done w/ Acute NM measure.: Yes Documented LVEF (%): 20 Code Visit Inpatient E&M: 47739 Disch Hosp
--- NOTE | 2019-03-10 10:29 | CASEMGMT ---
MEGHAN let patient know he was approved to go to TCU and he will go today. He thanked MEGHAN for the information. Plan: d/c to TCU under skilled level of care. Lauren HUGHES
[2019-03-10 12:05] LABS: Bedside Glucose 364 mg/dL (70-110)
--- NOTE | 2019-03-10 12:45 | NURSING ---
report called to TCU
--- NOTE | 2019-03-10 13:40 | CASEMGMT ---
MEGHAN spoke with patient and he called his letting her know he is going to TCU. He did not need MEGHAN to call anyone else. Lauren HERNANDEZ MSW
== END 2019-03-10 14:31 | disposition skilled nursing facility (03) | DRG 270 ==
LOC: ED 09:54 → ICU 10:48 → PCU 03-09 13:56
PROVIDERS: Internal Medicine Critical Care Medicine; Admitting Provider Internal Medicine; Emergency Provider Emergency Medicine; Family Provider Family Medicine; PCP Family Medicine; Referring Provider Internal Medicine Cardiovascular Disease; Visit Provider Internal Medicine
DX: I21.11 ST elevation (STEMI) myocardial infarction involving right coronary artery (principal); R57.0 Cardiogenic shock; J96.01 Acute respiratory failure with hypoxia; D62 Acute posthemorrhagic anemia; K92.2 Gastrointestinal hemorrhage, unspecified; I25.10 Atherosclerotic heart disease of native coronary artery without angina pectoris; I15.9 Secondary hypertension, unspecified; I25.5 Ischemic cardiomyopathy; E78.5 Hyperlipidemia, unspecified; E11.22 Type 2 diabetes mellitus with diabetic chronic kidney disease; N18.3 Chronic kidney disease, stage 3 (moderate); F41.8 Other specified anxiety disorders; E11.65 Type 2 diabetes mellitus with hyperglycemia; I69.344 Monoplegia of lower limb following cerebral infarction affecting left non-dominant side; I10 Essential (primary) hypertension; Z79.4 Long term (current) use of insulin; Z79.02 Long term (current) use of antithrombotics/antiplatelets; Z79.82 Long term (current) use of aspirin; Z98.1 Arthrodesis status; Z66 Do not resuscitate; E87.6 Hypokalemia; E83.39 Other disorders of phosphorus metabolism; E83.42 Hypomagnesemia
CPT/HCPCS: 31500; 31720; 33967; 36600; 71045; 74018; 80048; 80053; 80069; 82550; 82803; 82962; 83735; 84100; 84478; 84484; 85025; 85027; 85347; 85610; 85730; 87040; 87070; 87077; 87086; 87205; 92929; 92941; 93005; 93306; 93458; 94002; 94003; 94640; 94660; 95831; 97110; 97116; 97163; 97166; 97530; 97802; 99152; 99153; 99251; 99284; J7050; Q9957; Q9967; A4216; C1725; C1769; C1874; C1887; C8929; C9601; C9606; G0463; J1940

== ENCOUNTER 2019-03-10 15:08 | Inpatient (IN) | payer OTHER, MEDICARE, MEDICAID, SELFPAY ==
[2019-03-05 12:05] VITALS: BMI 26.4
[2019-03-06 08:28] VITALS: BMI 29.0
[2019-03-10 15:19] VITALS: BP 131/75; PULSE 65; RESP 16; TEMP 36.6; O2SAT 95
[2019-03-10 17:11] LABS: Bedside Glucose 353 mg/dL (70-110)
[2019-03-10] MEDS: TICAGRELOR 90 MG TABLET PO (18:02)
[2019-03-10] MEDS: Carvedilol 12.5 MG Tablet PO (18:02)
[2019-03-10] MEDS: Losartan Potassium 25 MG Tablet PO (18:05)
[2019-03-10] MEDS: diazePAM 5 MG Tablet PO (18:08)
[2019-03-10] MEDS: Pregabalin 75 MG Capsule 150 MG PO (18:09)
--- NOTE | 2019-03-10 20:43 | HP.PCM_ITS ---
<Chema Apodaca - Last Filed: 03/11/19 12:44> Problem List (1) Debility Status: Acute (2) Arteriosclerosis of coronary artery in patient with history of myocardial infarction Status: Chronic Comment: STEMI 03/05/2019:Triple vessel CAD of the LM, LAD, LCX RCA Successful PTCA/ESTEBAN of mid RCA with a 2.25 x 38 Promus Synergy, post dilated throughout with a 2.5 x 8 NC balloon; 99%-->0%, no dissection. Successful PTCA/ESTEBAN proximal RCA with a 2.5 x 16 Promus Synergy, post dilated with a 2.5 x 8 NC balloon; 75%-->0%, no dissection. Successful PTCA/ESTEBAN distal RCA with transition into PDA utilizing a 2.25 x 38 Promus Synergy, followed upstream with a 2.25 x 16 Promus Synergy, post dilated with a 2.5 x 8 NC in the 16mm stented area only; 75%-->0%, no dissection or perforation. (3) Stented coronary artery Status: Chronic Comment: Triple vessel CAD of the LM, LAD, LCX RCA Successful PTCA/ESTEBAN of mid RCA with a 2.25 x 38 Promus Synergy, post dilated throughout with a 2.5 x 8 NC balloon; 99%-->0%, no dissection. Successful PTCA/ESTEBAN proximal RCA with a 2.5 x 16 Promus Synergy, post dilated with a 2.5 x 8 NC balloon; 75%-->0%, no dissection. Successful PTCA/ESTEBAN distal RCA with transition into PDA utilizing a 2.25 x 38 Promus Synergy, followed upstream with a 2.25 x 16 Promus Synergy, post dilated with a 2.5 x 8 NC in the 16mm stented area only; 75%-->0%, no dissection or perforation. (4) STEMI (ST elevation myocardial infarction) Status: Acute (5) Hypertension Status: Chronic (6) Type 2 diabetes mellitus Status: Chronic (7) Secondary hypertension Status: Chronic (8) CVA (cerebral vascular accident) Status: Chronic (9) Bradycardia Status: Acute History of Present Illness Date of Admission: 03/10/19 Chief Complaint: Here for rehabilitation, strengthening, try to discharge home with The patient is a 58 year old M with below past medical history significant for uncontrolled type 2 diabetes mellitus and prior CVA 2 months ago who presented to [facility] emergency department on 03/05/2019 with chest pain. 03/05/2019?EKG showed acute inferior and posterior wall SC, underwent emergency angioplasty with ESTEBAN to RCA/PDA 03-06-2019?echocardiogram showed moderately dilated left ventricle, estimated EF 15 to 20%, prior EF 35% in January 2018, stage I diastolic dysfunction, posterior inferior and mid anteroseptal hypokinesis, RVSP 25 mmHg 03/09/2019?patient transferred from ICU to PCU 03/10/2019?patient admitted to TCU with debility, here for rehabilitation and strengthening prior to being discharged home with . Currently denies any chest discomfort and admits to recent falls in the house prior secondary to his weakness to his left lower extremity after having a stroke 2 months ago. Past Medical History Past Medical History (Chronic Problems): Chronic Problems (Last Updated 03/06/19 @ 08:39 by Chelsea Lomax) Arteriosclerosis of coronary artery in patient with history of myocardial infarction (Chronic) STEMI 03/05/2019:Triple vessel CAD of the LM, LAD, LCX RCA Successful PTCA/ESTEBAN of mid RCA with a 2.25 x 38 Promus Synergy, post dilated throughout with a 2.5 x 8 NC balloon; 99%-->0%, no dissection. Successful PTCA/ESTEBAN proximal RCA with a 2.5 x 16 Promus Synergy, post dilated with a 2.5 x 8 NC balloon; 75%-->0%, no dissection. Successful PTCA/ESTEBAN distal RCA with transition into PDA utilizing a 2.25 x 38 Promus Synergy, followed upstream with a 2.25 x 16 Promus Synergy, post dilated with a 2.5 x 8 NC in the 16mm stented area only; 75%-->0%, no dissection or perforation. Stented coronary artery (Chronic 03/06/19) Triple vessel CAD of the LM, LAD, LCX RCA Successful PTCA/ESTEBAN of mid RCA with a 2.25 x 38 Promus Synergy, post dilated throughout with a 2.5 x 8 NC balloon; 99%-->0%, no dissection. Successful PTCA/ESTEBAN proximal RCA with a 2.5 x 16 Promus Synergy, post dilated with a 2.5 x 8 NC balloon; 75%-->0%, no dissection. Successful PTCA/ESTEBAN distal RCA with transition into PDA utilizing a 2.25 x 38 Promus Synergy, followed upstream with a 2.25 x 16 Promus Synergy, post dilated with a 2.5 x 8 NC in the 16mm stented area only; 75%-->0%, no dissection or perforation. Hypertension (Chronic) Type 2 diabetes mellitus (Chronic) Secondary hypertension (Chronic) CVA (cerebral vascular accident) (Chronic) Noncompliance with diabetes treatment (Chronic) Medical History: Medical History (Last Updated 03/06/19 @ 08:39 by Chelsea Lomax) Arteriosclerosis of coronary artery in patient with history of myocardial infarction (Chronic) I25.10, I25.2 STEMI 03/05/2019:Triple vessel CAD of the LM, LAD, LCX RCA Successful PTCA/ESTEBAN of mid RCA with a 2.25 x 38 Promus Synergy, post dilated throughout with a 2.5 x 8 NC balloon; 99%-->0%, no dissection. Successful PTCA/ESTEBAN proximal RCA with a 2.5 x 16 Promus Synergy, post dilated with a 2.5 x 8 NC balloon; 75%-->0%, no dissection. Successful PTCA/ESTEBAN distal RCA with transition into PDA utilizing a 2.25 x 38 Promus Synergy, followed upstream with a 2.25 x 16 Promus Synergy, post dilated with a 2.5 x 8 NC in the 16mm stented area only; 75%-->0%, no dissection or perforation. STEMI (ST elevation myocardial infarction) (Acute) Onset Date: 03/05/19 I21.3 Type 2 diabetes mellitus (Chronic) E11.9 Secondary hypertension (Chronic) I15.9 Syncope and collapse (Acute) R55 CVA (cerebral vascular accident) (Chronic) I63.9 Syncope (Acute) R55 Bradycardia (Acute) R00.1 Noncompliance with diabetes treatment (Chronic) Z91.19 FLORY (acute kidney injury) N17.9 Anxiety F41.9 Back pain M54.9 Depression F32.9 Abdominal pain R10.9 Hematochezia K92.1 Intractable nausea and vomiting R11.2 Nausea R11.0 Nonketotic hyperglycinemia E72.51 Allergies nifedipine [From Adalat] Allergy (Verified 02/27/19 15:01) Unknown Home Medications: Ambulatory Orders Medication Instructions Recorded diazepam 5 mg tablet 5 mg PO BID 02/27/19 duloxetine 60 mg capsule,delayed 60 mg PO DAILY 02/27/19 release pregabalin 150 mg capsule 150 mg PO BID 02/27/19 sennosides 8.6 mg-docusate sodium 2 tab PO BID PRN tab 02/27/19 50 mg tablet Acetaminophen [Tylenol Tablet] 650 mg PO Q6H PRN PRN tab 03/10/19 Aspirin [Aspirin, Baby] 81 mg PO DAILY@0800 03/10/19 Atorvastatin Calcium [Lipitor] 80 mg PO QHS 03/10/19 Carvedilol [Coreg (Beta Jeffrey)] 12.5 mg PO BID 03/10/19 Furosemide [Lasix] 40 mg PO DAILY 03/10/19 Insulin Glargine [Lantus SoloStar 20 units SUBCUT QHS 03/10/19 Pen] Insulin Lispro [Humalog KwikPen] See Protocol SUBCUT ACHS 03/10/19 Ipratropium/Albuterol Sulfate 3 ml INHALATION Q6HWA.RT 03/10/19 [Duoneb] Losartan Potassium [Cozaar] 25 mg PO BID 03/10/19 Nitroglycerin (INPATIENT USE) 0.4 mg SUBLINGUAL Q5M PRN #0 03/10/19 [Nitrostat] tab.subl Pantoprazole Sodium [Protonix] 40 mg PO DAILY 03/10/19 Potassium Chloride [K-Dur] 40 meq PO DAILYCM 03/10/19 Sertraline HCl [Zoloft] 50 mg PO DAILY 03/10/19 Ticagrelor [Brilinta] 90 mg PO BID 03/10/19 Surgical History: Surgical History (Last Updated 03/06/19 @ 08:39 by Chelsea Lomax) Stented coronary artery (Chronic) Onset Date: 03/06/19 Z95.5 Triple vessel CAD of the LM, LAD, LCX RCA Successful PTCA/ESTEBAN of mid RCA with a 2.25 x 38 Promus Synergy, post dilated throughout with a 2.5 x 8 NC balloon; 99%-->0%, no dissection. Successful PTCA/ESTEBAN proximal RCA with a 2.5 x 16 Promus Synergy, post dilated with a 2.5 x 8 NC balloon; 75%-->0%, no dissection. Successful PTCA/ESTEBAN distal RCA with transition into PDA utilizing a 2.25 x 38 Promus Synergy, followed upstream with a 2.25 x 16 Promus Synergy, post dilated with a 2.5 x 8 NC in the 16mm stented area only; 75%-->0%, no dissection or perforation. History of lumbar fusion Z98.890 History of back surgery Z98.890 History of umbilical hernia repair Z98.890, Z87.19 Surgical History: - - Back Surgery 198906/29/95. He had a hernia repair May 07, 2008 Psychiatric History: Anxiety, Depression - severe Smoking Status: Unknown if ever smoked - *Family History Paternal Family History: Family History (Last Reviewed 02/27/19 @ 15:09 by Rupa Valentine) Father Heart disease Son Kidney disease History Items: Heart Disease, Hypertension, - - CAD; cerebral hemorrhage. Maternal Family History: Family History (Last Reviewed 02/27/19 @ 15:09 by Rupa Valentine) Father Heart disease Son Kidney disease History Items: - - suicide, depression Review of Systems Constitutional: Reports: Weakness - Left-sided weakness. Denies: Chills, Fever, Weight Change Eyes: Denies: Pain HEENT: Denies: Head Aches, Sinus Congestion, Sinus Drainage Cardiovascular: Denies: Chest Pain, Palpitations Respiratory: Denies: Cough, Shortness of Breath, Shortness of breath at rest, Sputum production Gastrointestinal: Denies: Abdominal Pain, Nausea, Vomiting Genitourinary: Denies: Dysuria Musculoskeletal: Denies: Joint Pain, Joint Tenderness Skin: Denies: Rash, Wounds Neurological: Denies: Numbness, Tingling, Focal weakness Psychiatric: Denies: Anxiety, Depression, Homicidal Ideations, Suicidal Ideations Hematologic/ Lymphatic: Denies: Easy Bruising, Easy Bleeding VTE Information - Inpt Only VTE Present on Admission: No VTE Mechan Device Prophylaxis: Knee High REILLY Hose, None VTE Pharm Prophylaxis ordered?: Yes Patient Problems: Active and Suspected Problems (Last Updated 03/06/19 @ 08:39 by Chelsea Lomax) Debility (Acute) - Physical Exam Vitals/I&O's: Vital Signs Temp Pulse Resp BP Pulse Ox 97.9 F 65 16 131/75 H 95 03/10/19 15:19 03/10/19 15:19 03/10/19 15:19 03/10/19 15:19 03/10/19 15:19 Oxygen Delivery Method Room Air Weight: 215 lb Body Mass Index (BMI) 26.4 Finger Stick Blood Glucose 122 Intake and Output for Last 24 Hours 03/08/19 03/09/19 03/10/19 23:59 23:59 23:59 Intake Total 480 / 480 Balance 480 / 480 General: Alert, Oriented x3, Cooperative HEENT: Atraumatic, PERRLA Oral: Moist Mucosa Lungs: Clear to auscultation, Normal air movement, No rhonchi, No wheeze, No rales Cardiovascular: Regular rate, Regular Rhythm, Normal S1, Normal S2 Abdomen: Soft, Non Tender, Obese Extremities: No clubbing, No cyanosis, Edema - Generalized bilateral lower extremity edema Skin: - - Healing abrasions noted to left anterior knee, dressing dry and intact to right groin, no bruit or thrill present on exam Musculoskeletal: - - Muscle weakness noted to the left lower extremity Neurological: Neuro grossly intact Psych/Mental Status: Normal Affect, Appropriate, Alert and oriented to time, place, person, mood and affect Laboratory Results 03/10/19 17:04: POC Glucose 353 H Current Medications Acetaminophen (Tylenol) 650 mg PO Q6H PRN PRN PRN Reason: Pain Score 1-3/10 Albuterol/Ipratropium (Duoneb) 3 ml INHALATION Q6HWA.RT [facility] Last Admin: 03/10/19 18:57 Dose: Not Given Documented by: Aspirin (Aspirin, Baby) 81 mg PO DAILY@0800 [facility] Atorvastatin Calcium (Lipitor) 80 mg PO QHS [facility] Carvedilol (Coreg) 12.5 mg PO BID [facility] Last Admin: 03/10/19 18:02 Dose: 12.5 mg Documented by: Diazepam (Valium) 5 mg PO BID [facility] Last Admin: 03/10/19 18:08 Dose: 5 mg Documented by: Duloxetine HCl (Cymbalta) 60 mg PO DAILY [facility] Furosemide (Lasix) 40 mg PO DAILY [facility] Insulin Glargine (Lantus (Bkc)) 20 units SC QHS [facility] Insulin Human Lispro (Humalog Kwikpen (Bkc)) 0 unit SC [facility]; Protocol Losartan Potassium (Cozaar) 25 mg PO BID [facility] Last Admin: 11/29/19 18:05 Dose: 25 mg Documented by: Nitroglycerin (Nitrostat) 0.4 mg SUBLINGUAL Q5M PRN PRN Reason: CARDIAC/CHEST PAIN Nutritional Formula (Lactose Free) (Glucerna Shake) 120 ml PO 4X/DAY [facility] Pantoprazole Sodium (Protonix) 40 mg PO DAILY [facility] Potassium Chloride (K-Dur) 40 meq PO DAILYCM [facility] Pregabalin (Lyrica) 150 mg PO BID [facility] Last Admin: 03/10/19 18:09 Dose: 150 mg Documented by: Senna/Docusate Sodium (Senokot-S, Thalia-Colace) 2 tablet PO BID PRN PRN Reason: Constipation Sertraline HCl (Zoloft) 50 mg PO DAILY [facility] Ticagrelor (Brilinta) 90 mg PO BID [facility] Last Admin: 03/10/19 18:02 Dose: 90 mg Documented by: Tuberculin PPD (Tubersol, Aplisol, Ppd) 5 tu ID X1 ONE Stop: 03/11/19 10:01 Tuberculin PPD (Tubersol, Aplisol, Ppd) 5 tu ID X1 ONE Stop: 03/18/19 10:01 Assessment/Plan All Active Problems (Last Updated 03/06/19 @ 08:39 by Chelsea Lomax) Debility (Acute) STEMI (ST elevation myocardial infarction) (Acute 03/05/19) Syncope and collapse (Acute) Syncope (Acute) Bradycardia (Acute) 58-year-old white male with below past medical history hospitalized for STEMI, recent CVA 2 months ago will be admitted to TCU with debility, here for falguni abilitation, strengthening, prior to being discharged home with . * Debility?PT/OT. * Pain?acetaminophen 650 every 6 hours as needed pain (1?10) * Bowel?MiraLAX, senna, Dulcolax as needed * Adult immunization?administered Prevnar 13, Pneumovax 23, Fluzone as necessary * DVT prophylaxis?Lovenox 30 mg, due to decreased kidney function, also on Brilinta * Acute ST segment elevation SC?angioplasty with ESTEBAN to RCA/PDA on 03/05/2019, continue Brilinta, carvedilol, baby aspirin * Ischemic cardiomyopathy with ejection fraction of 15 to 20%?continue Lasix and beta-blockers * Acute hypoxic respiratory failure?currently on room air, monitor O2 saturations periodically, no shortness of breath noted at this time * Hypertension?controlled current therapy, continue Cozaar, carvedilol * Hyperlipidemia?continue atorvastatin therapy * Recent history of acute [place] CVA with residual left lower extremity paralysis?currently on dual antiplatelet therapy in addition to statin therapy, PT OT as tolerated * Type 2 diabetes mellitus uncontrolled?continue basal insulin, Accu-Cheks before meals and at bedtime and covered with sliding scale insulin, will consider restarting home oral hypoglycemics, patient unsure of what exactly he was taking. Will verify medications and dosing with . Continue Lyrica for diabetic neuropathy. * CKD?continue monitoring kidney functions periodically, secondary to the di abetic nephropathy * Depression with anxiety?discontinue sertraline as patient is on Cymbalta will be continued, PRN diazepam * GERD?continue pantoprazole Discussed patient and plan of care with Dr. He and she agrees. <Ranjit Rodriguez Chi - Last Filed: 03/13/19 08:23> History of Present Illness The patient is a 58 year old M [] Past Medical History Medical History: Medical History (Last Updated 03/06/19 @ 08:39 by Chelsea Lomax) Arteriosclerosis of coronary artery in patient with history of myocardial infarction (Chronic) I25.10, I25.2 STEMI 03/05/2019:Triple vessel CAD of the LM, LAD, LCX RCA Successful PTCA/ESTEBAN of mid RCA with a 2.25 x 38 Promus Synergy, post dilated throughout with a 2.5 x 8 NC balloon; 99%-->0%, no dissection. Successful PTCA/ESTEBAN proximal RCA with a 2.5 x 16 Promus Synergy, post dilated with a 2.5 x 8 NC balloon; 75%-->0%, no dissection. Successful PTCA/ESTEBAN distal RCA with transition into PDA utilizing a 2.25 x 38 Promus Synergy, followed upstream with a 2.25 x 16 Promus Synergy, post dilated with a 2.5 x 8 NC in the 16mm stented area only; 75%-->0%, no dissection or perforation. STEMI (ST elevation myocardial infarction) (Acute) Onset Date: 03/05/19 I21.3 Type 2 diabetes mellitus (Chronic) E11.9 Secondary hypertension (Chronic) I15.9 Syncope and collapse (Acute) R55 CVA (cerebral vascular accident) (Chronic) I63.9 Syncope (Acute) R55 Bradycardia (Acute) R00.1 Noncompliance with diabetes treatment (Chronic) Z91.19 FLORY (acute kidney injury) N17.9 Anxiety F41.9 Back pain M54.9 Depression F32.9 Abdominal pain R10.9 Hematochezia K92.1 Intractable nausea and vomiting R11.2 Nausea R11.0 Nonketotic hyperglycinemia E72.51 Allergies nifedipine [From Adalat] Allergy (Verified 02/27/19 15:01) Unknown Surgical History: Surgical History (Last Updated 03/06/19 @ 08:39 by Chelsea Lomax) Stented coronary artery (Chronic) Onset Date: 03/06/19 Z95.5 Triple vessel CAD of the LM, LAD, LCX RCA Successful PTCA/ESTEBAN of mid RCA with a 2.25 x 38 Promus Synergy, post dilated throughout with a 2.5 x 8 NC balloon; 99%-->0%, no dissection. Successful PTCA/ESTEBAN proximal RCA with a 2.5 x 16 Promus Synergy, post dilated with a 2.5 x 8 NC balloon; 75%-->0%, no dissection. Successful PTCA/ESTEBAN distal RCA with transition into PDA utilizing a 2.25 x 38 Promus Synergy, followed upstream with a 2.25 x 16 Promus Synergy, post dilated with a 2.5 x 8 NC in the 16mm stented area only; 75%-->0%, no dissection or perforation. History of lumbar fusion Z98.890 History of back surgery Z98.890 History of umbilical hernia repair Z98.890, Z87.19 - *Family History Paternal Family History: Family History (Last Reviewed 02/27/19 @ 15:09 by Rupa Valentine) Father Heart disease Son Kidney disease Maternal Family History: Family History (Last Reviewed 02/27/19 @ 15:09 by Rupa Valentine) Father Heart disease Son Kidney disease - Physical Exam Vitals/I&O's: Vital Signs Temp Pulse Resp BP Pulse Ox 98.2 F 70 16 118/71 98 03/12/19 15:40 03/12/19 15:40 03/12/19 15:40 03/12/19 15:40 03/12/19 15:40 Oxygen Delivery Method Room Air Weight: 96.162 kg Body Mass Index (BMI) 30.4 Finger Stick Blood Glucose 122 Intake and Output for Last 24 Hours 03/11/19 03/12/19 03/13/19 23:59 23:59 23:59 Intake Total 880 / 880 1200 / 1200 Output Total 600 / 600 900 / 900 Balance 280 / 280 300 / 300 Laboratory Results 03/12/19 10:56: POC Glucose 435 H 03/12/19 16:39: POC Glucose 325 H 03/12/19 20:53: POC Glucose 224 H 03/13/19 06:15: POC Glucose 299 H Current Medications Acetaminophen (Tylenol) 650 mg PO Q6H PRN PRN PRN Reason: Pain Score 1-3/10 Albuterol/Ipratropium (Duoneb) 3 ml INHALATION Q6HWA.RT PRN PRN Reason: SOB &/OR WHEEZING Aspirin (Aspirin, Baby) 81 mg PO DAILY@0800 [facility] Last Admin: 03/12/19 07:42 Dose: 81 mg Documented by: Atorvastatin Calcium (Lipitor) 80 mg PO QHS [facility] Last Admin: 03/12/19 21:09 Dose: 80 mg Documented by: Bisacodyl (Dulcolax) 10 mg PO DAILY PRN PRN Reason: Constipation Calamine/Phenol (Calmoseptine Ointment) 1 applic TOPICAL 0600,2200 [facility]; Prot ocol Last Admin: 03/13/19 05:45 Dose: 1 applicatio Documented by: Carvedilol (Coreg) 12.5 mg PO BID [facility] Last Admin: 03/13/19 05:43 Dose: 12.5 mg Documented by: Dextrose (D50w Syringe) 0 gm IV X1 PRN; Protocol PRN Reason: Hypoglycemia Diazepam (Valium) 5 mg PO BID [facility] Last Admin: 03/13/19 05:43 Dose: 5 mg Documented by: Duloxetine HCl (Cymbalta) 60 mg PO DAILY [facility] Last Admin: 03/13/19 05:43 Dose: 60 mg Documented by: Enoxaparin Sodium (Lovenox) 40 mg SC DAILY [facility] Last Admin: 03/13/19 05:43 Dose: 40 mg Documented by: Furosemide (Lasix) 40 mg PO DAILY [facility] Last Admin: 03/13/19 05:43 Dose: 40 mg Documented by: Glucagon () 1 mg IM .X1 PRN PRN Reason: Hypoglycemia Insulin Glargine (Lantus ([facility])) 30 units SC QHS [facility] Last Admin: 03/12/19 21:09 Dose: 30 units Documented by: Insulin Human Lispro (Humalog Kwikpen ([facility])) 10 unit SC TIDAC [facility] Losartan Potassium (Cozaar) 25 mg PO BID [facility] Last Admin: 03/13/19 05:43 Dose: 25 mg Documented by: Nitroglycerin (Nitrostat) 0.4 mg SUBLINGUAL Q5M PRN PRN Reason: CARDIAC/CHEST PAIN Nystatin (Mycostatin Powder) 1 applic TOPICAL 0600,2200 [facility]; Protocol Last Admin: 03/13/19 05:45 Dose: 1 applicatio Documented by: Pantoprazole Sodium (Protonix) 40 mg PO DAILY [facility] Last Admin: 03/13/19 05:43 Dose: 40 mg Documented by: Polyethylene Glycol (Miralax) 17 gm PO DAILY [facility] Last Admin: 03/13/19 05:43 Dose: Not Given Documented by: Potassium Chlor[facility] ([facility]) [facility] Last Admin: 03/12/19 07:42 Dose: 40 meq Documented by: Pregabalin (Lyrica) 150 mg PO BID [facility] Last Admin: 03/13/19 05:43 Dose: 150 mg Documented by: Senna/Docusate Sodium (Senokot-S, Thalia-Colace) 1 tablet PO BID [facility] Last Admin: 03/13/19 05:43 Dose: 1 tablet Documented by: Ticagrelor (Brilinta) 90 mg PO BID [facility] Last Admin: 03/13/19 05:43 Dose: 90 mg Documented by: Tuberculin PPD (Tubersol, Aplisol, Ppd) 5 tu ID X1 ONE Stop: 03/18/19 10:01 Assessment/Plan I interviewed and examined resident independently, and agree with above.
[2019-03-10 20:45] LABS: Bedside Glucose 444 mg/dL (70-110)
[2019-03-10] MEDS: Insulin Lispro 100 UNIT/ML INSULN.PEN SC (21:32)
[2019-03-10] MEDS: Atorvastatin Calcium 80 MG Tablet PO (21:33)
[2019-03-10 21:36] VITALS: BMI 30.4
[2019-03-10 21:39] VITALS: BMI 30.4
[2019-03-10 21:43] VITALS: PULSE 87; O2SAT 97
--- NOTE | 2019-03-10 22:52 | NURSING ---
Admission information reviewed with BOILER REPAIRMAN, N.O. entered.
[2019-03-11] MEDS: Furosemide 40 MG Tablet PO (05:43)
[2019-03-11] MEDS: Enoxaparin 30 MG/0.3 ML Syringe SC (05:43)
[2019-03-11] MEDS: Nystatin Powder 15gm Bottle 1 APPLIC TOPICAL ×2 (05:43→21:08)
[2019-03-11] MEDS: Senna/Docusate Sodium 1 Tablet PO ×2 (05:43→17:54)
[2019-03-11] MEDS: Pregabalin 75 MG Capsule 150 MG PO ×2 (05:43→17:54)
[2019-03-11] MEDS: diazePAM 5 MG Tablet PO ×2 (05:43→17:54)
[2019-03-11] MEDS: TICAGRELOR 90 MG TABLET PO ×2 (05:44→17:54)
[2019-03-11] MEDS: Pantoprazole Sodium 40 MG Tablet PO (05:44)
[2019-03-11] MEDS: DULoxetine Hcl 60 MG Capsule PO (05:44)
[2019-03-11] MEDS: Losartan Potassium 25 MG Tablet PO ×2 (05:44→17:54)
[2019-03-11] MEDS: Carvedilol 12.5 MG Tablet PO ×2 (05:44→17:54)
[2019-03-11 07:21] LABS: Absolute Lymphocyte Count 1.15 X10^3/uL (0.83-4.51); Absolute Neutrophil Count 8.3 X10^3/uL (2.0-7.7); Basophil# 0.06 X10^3/uL; Basophil% 0.6 % (0-1); Eosinophil# 0.49 X10^3/uL; Eosinophils% 4.5 % (0-5); Hematocrit 35.9 % (40-54); Hemoglobin 12.4 g/dL (13.0-16.5); Lymphocyte # 1.15 X10^3/ul (4.0); Lymphocyte % 10.7 % (19-41); Mean Corp Hgb Conc 34.5 g/dL (32-36); Mean Corpuscular Hgb 29.7 pg (27.0-32.0); Mean Corpuscular Volume 86.1 fL (80-94); Mean Platelet Vol. 12.6 fl (6.2-12.0); Monocyte# 0.71 X10^3/uL; Monocyte% 6.6 % (0-10); NRBC Flagged by Analyzer 0 % (0-5); Neutrophil # 8.26 X10^3/uL (2.7-7.7); Neutrophil % 76.5 % (47-70); Platelet Count 195 K/mm3 (150-450); RBC Distribution Width CV 13.2 % (11.6-14.6); RBC Distribution Width SD 40.5 fl (35.1-43.9); Red Blood Count 4.17 M/mm3 (4.6-6.2); White Blood Count 10.8 K/mm3 (4.4-11.0)
[2019-03-11 07:25] LABS: Bedside Glucose 328 mg/dL (70-110)
[2019-03-11] MEDS: Menthol/Lanolin/Calamine/Znox 113 GM Tube 1 APPLIC TOPICAL ×2 (07:58→21:09)
[2019-03-11] MEDS: Insulin Lispro 100 UNIT/ML INSULN.PEN SC ×4 (07:59→21:06)
[2019-03-11] MEDS: Aspirin 81 MG TAB.CHEW PO (08:00)
[2019-03-11 08:03] LABS: Anion Gap 11 (5-15); BUN 35 mg/dL (7-18); BUN/Creat Ratio 21.7 RATIO (10-20); Calcium,Total 9.2 mg/dL (8.5-10.1); Chloride 102 mmol/L (98-107); Creatinine, Serum 1.61 mg/dL (0.70-1.30); EST Glomerular Filtration Rate 47 mL/min (>60); Est Glom Filt Rate - Afr Amer 57 mL/min (>60); Estimated Creatinine Clearance 50.38 ml/min; Glucose 328 mg/dL (74-106); Sodium Level 138 mmol/L (136-145)
[2019-03-11] MEDS: Tuberculin,Purif.prot.deriv. 50 TU/ML Vial 5 ML ID (11:02)
[2019-03-11 11:15] LABS: Bedside Glucose 450 mg/dL (70-110)
[2019-03-11 13:09] VITALS: PULSE 72; RESP 18; O2SAT 98
--- NOTE | 2019-03-11 15:54 | NURSING ---
Chema Apodaca NP reviewed blood sugars, new order to increase humalog to med high dosing and ^ lantus at bedtime.
[2019-03-11 16:00] VITALS: BP 127/75; PULSE 76; RESP 19; TEMP 36.8; O2SAT 98
[2019-03-11 17:05] LABS: Bedside Glucose 298 mg/dL (70-110)
[2019-03-11 20:51] LABS: Bedside Glucose 324 mg/dL (70-110)
[2019-03-11] MEDS: Atorvastatin Calcium 80 MG Tablet PO (21:06)
[2019-03-12] MEDS: Furosemide 40 MG Tablet PO (06:05)
[2019-03-12] MEDS: Pregabalin 75 MG Capsule 150 MG PO ×2 (06:05→17:37)
[2019-03-12] MEDS: diazePAM 5 MG Tablet PO ×2 (06:05→17:37)
[2019-03-12] MEDS: Senna/Docusate Sodium 1 Tablet PO ×2 (06:05→17:37)
[2019-03-12] MEDS: DULoxetine Hcl 60 MG Capsule PO (06:05)
[2019-03-12] MEDS: TICAGRELOR 90 MG TABLET PO ×2 (06:05→17:37)
[2019-03-12] MEDS: Enoxaparin 30 MG/0.3 ML Syringe SC (06:05)
[2019-03-12] MEDS: Losartan Potassium 25 MG Tablet PO ×2 (06:05→17:37)
[2019-03-12] MEDS: Pantoprazole Sodium 40 MG Tablet PO (06:05)
[2019-03-12] MEDS: Carvedilol 12.5 MG Tablet PO ×2 (06:05→17:37)
[2019-03-12] MEDS: Nystatin Powder 15gm Bottle 1 APPLIC TOPICAL ×2 (06:09→21:10)
[2019-03-12] MEDS: Menthol/Lanolin/Calamine/Znox 113 GM Tube 1 APPLIC TOPICAL ×2 (06:10→21:10)
[2019-03-12 06:31] LABS: Bedside Glucose 315 mg/dL (70-110)
[2019-03-12] MEDS: Insulin Lispro 100 UNIT/ML INSULN.PEN SC ×3 (07:39→17:36)
[2019-03-12] MEDS: Aspirin 81 MG TAB.CHEW PO (07:42)
[2019-03-12 11:11] LABS: Bedside Glucose 435 mg/dL (70-110)
[2019-03-12 15:40] VITALS: BP 118/71; PULSE 70; RESP 16; TEMP 36.8; O2SAT 98
--- NOTE | 2019-03-12 16:15 | NURSING ---
AMY Bear updated on blood sugars today. new orders entered to increase basal dose and SS insulins.
[2019-03-12 16:46] LABS: Bedside Glucose 325 mg/dL (70-110)
--- NOTE | 2019-03-12 20:38 | NURSING ---
Chema Apodaca NP called into unit. NO to increase Lovenox to 40 daily.
[2019-03-12 21:06] LABS: Bedside Glucose 224 mg/dL (70-110)
[2019-03-12] MEDS: Atorvastatin Calcium 80 MG Tablet PO (21:09)
[2019-03-13] MEDS: TICAGRELOR 90 MG TABLET PO ×2 (05:43→17:27)
[2019-03-13] MEDS: Pantoprazole Sodium 40 MG Tablet PO (05:43)
[2019-03-13] MEDS: Losartan Potassium 25 MG Tablet PO ×2 (05:43→17:27)
[2019-03-13] MEDS: Senna/Docusate Sodium 1 Tablet PO (05:43)
[2019-03-13] MEDS: Enoxaparin 40 MG/0.4 ML Syringe SC (05:43)
[2019-03-13] MEDS: DULoxetine Hcl 60 MG Capsule PO (05:43)
[2019-03-13] MEDS: Furosemide 40 MG Tablet PO (05:43)
[2019-03-13] MEDS: diazePAM 5 MG Tablet PO ×2 (05:43→17:30)
[2019-03-13] MEDS: Pregabalin 75 MG Capsule 150 MG PO ×2 (05:43→17:30)
[2019-03-13] MEDS: Carvedilol 12.5 MG Tablet PO ×2 (05:43→17:27)
[2019-03-13] MEDS: Nystatin Powder 15gm Bottle 1 APPLIC TOPICAL ×2 (05:45→22:38)
[2019-03-13] MEDS: Menthol/Lanolin/Calamine/Znox 113 GM Tube 1 APPLIC TOPICAL ×2 (05:45→22:37)
[2019-03-13 06:26] LABS: Bedside Glucose 299 mg/dL (70-110)
[2019-03-13] MEDS: Insulin Lispro 100 UNIT/ML INSULN.PEN 10 UNIT SC ×3 (08:59→17:28)
[2019-03-13] MEDS: Aspirin 81 MG TAB.CHEW PO (09:00)
[2019-03-13 10:50] LABS: Bedside Glucose 448 mg/dL (70-110)
[2019-03-13 15:51] VITALS: BP 122/68; PULSE 76; RESP 20; TEMP 36.6; O2SAT 97
[2019-03-13 17:10] LABS: Bedside Glucose 197 mg/dL (70-110)
[2019-03-13 21:11] LABS: Bedside Glucose 295 mg/dL (70-110)
[2019-03-13] MEDS: Atorvastatin Calcium 80 MG Tablet PO (22:38)
[2019-03-13 23:15] VITALS: BP 105/59; PULSE 79; RESP 18; O2SAT 99
--- NOTE | 2019-03-13 23:27 | NURSING ---
2310- Pt pulled call light in restroom and upon answering EXTRUDER OPERATOR HELPER notified this RN patient was sitting on the floor in the restroom. Pt states I was wiping my butt and leaned over too far and lost my balance. Vital signs completed and pt assisted back to restroom. L knee noted to be slightly pink. Small skin tear noted to L elbow. Site cleansed and bandaid applied. Some small scratches noted to back which patient states those were there before. Pt has been compliant with call light use. Pt notified to call staff prior to attempting to stand from toilet so staff can assist as needed.
[2019-03-14] MEDS: Carvedilol 12.5 MG Tablet PO ×2 (05:18→17:55)
[2019-03-14] MEDS: Losartan Potassium 25 MG Tablet PO ×2 (05:18→17:55)
[2019-03-14] MEDS: diazePAM 5 MG Tablet PO ×2 (05:18→17:57)
[2019-03-14] MEDS: DULoxetine Hcl 60 MG Capsule PO ×2 (05:18→05:19)
[2019-03-14] MEDS: Pantoprazole Sodium 40 MG Tablet PO (05:18)
[2019-03-14] MEDS: TICAGRELOR 90 MG TABLET PO ×2 (05:18→17:54)
[2019-03-14] MEDS: Furosemide 40 MG Tablet PO (05:18)
[2019-03-14] MEDS: Pregabalin 75 MG Capsule 150 MG PO ×2 (05:18→17:57)
[2019-03-14] MEDS: Menthol/Lanolin/Calamine/Znox 113 GM Tube 1 APPLIC TOPICAL ×2 (05:19→22:00)
[2019-03-14] MEDS: Enoxaparin 40 MG/0.4 ML Syringe SC (05:19)
[2019-03-14] MEDS: Nystatin Powder 15gm Bottle 1 APPLIC TOPICAL ×2 (05:20→22:00)
[2019-03-14 06:31] LABS: Bedside Glucose 303 mg/dL (70-110)
[2019-03-14] MEDS: Insulin Lispro 100 UNIT/ML INSULN.PEN 13 UNIT SC ×2 (07:55→12:28)
[2019-03-14] MEDS: Aspirin 81 MG TAB.CHEW PO (07:57)
[2019-03-14 11:00] LABS: Bedside Glucose 166 mg/dL (70-110)
--- NOTE | 2019-03-14 14:54 | CASEMGMT ---
Social Work Spoke with patient to discuss DC plans. Pt requesting to DC home with and DENNIS 03/17. IDT agreeable. Provided pt with information to obtain a ramp, but pt can complete the 2 steps to enter. Provided pt with [facility] list for PT/OT. No DME needs. Plan: DC home 03/17 with [facility] PT/OT Yissel Champion, ELLEN MALDONADOW
[2019-03-14 16:00] VITALS: BP 112/67; PULSE 75; RESP 20; TEMP 36.2; O2SAT 94
[2019-03-14 17:00] LABS: Bedside Glucose 109 mg/dL (70-110)
[2019-03-14] MEDS: Insulin Lispro 100 UNIT/ML INSULN.PEN 11 UNIT SC (17:53)
--- NOTE | 2019-03-14 20:16 | DCINST_ITS ---
- Discharge Diagnoses Current Active Problems: Current Active and Chronic Problems (Last Updated 03/06/19 @ 08:39 by Chelsea Lomax) Debility (Acute) You will use the following diet at home:: No restrictions, Regular Your food should be the consistency of: Regular Your liquids should be the consistency of: Regular/Thin Discharge Activity: Return to Normal Activity, May Shower, Use Walker May resume sexual activity in: 6 weeks Weight Bearing Status: Weight bearing as tolerated Call your doctor if you observe: Fever of 101 or Higher, Inability to urinate, Inability to have a bowel movement, Shortness of breath, Dizziness, Chest pain, Increased palpitations (irregular heartbeat), Uncontrolled pain Allergies/Adverse Reactions: Allergies nifedipine [From Adalat] Allergy (Verified 02/27/19 15:01) Unknown Medications to take at Discharge diazepam 5 mg tablet 5 mg PO BID 02/27/19 duloxetine 60 mg capsule,delayed release 60 mg PO DAILY 02/27/19 pregabalin 150 mg capsule 150 mg PO BID 02/27/19 Acetaminophen [Tylenol Tablet] 650 mg PO Q6H PRN PRN tab 03/10/19 Aspirin [Aspirin, Baby] 81 mg PO DAILY@0800 03/10/19 Atorvastatin Calcium [Lipitor] 80 mg PO QHS 03/10/19 Nitroglycerin (INPATIENT USE) [Nitrostat] 0.4 mg SUBLINGUAL Q5M PRN #0 tab.subl 03/10/19 Pantoprazole Sodium [Protonix] 40 mg PO DAILY 03/10/19 Carvedilol [Coreg (Beta Jeffrey)] 12.5 mg PO BID #60 tab 03/14/19 Furosemide [Lasix] 40 mg PO DAILY #30 tab 03/14/19 Insulin Glargine [Lantus SoloStar Pen] 34 units SC QHS pen 03/14/19 Insulin Lispro [Humalog KwikPen] 11 unit SC TIDAC insuln.pen 03/14/19 Losartan Potassium [Cozaar] 25 mg PO BID #60 tab 03/14/19 Menthol/Lanolin/Calamine/Znox [Calmoseptine Ointment] 1 applic TOPICAL 0600,2200 tube 03/14/19 Nystatin Powder [Mycostatin Powder] 1 applic TOPICAL 0600,2200 bottle 03/14/19 Potassium Chloride [K-Dur] 40 meq PO DAILYCM #30 tab 03/14/19 Ticagrelor [Brilinta] 90 mg PO BID #60 tab 03/14/19 The following prescriptions were given: Ticagrelor [Brilinta] 90 mg PO BID #60 tab Transmission Status: Pending to [facility] #30 Carvedilol [Coreg (Beta Jeffrey)] 12.5 mg PO BID #60 tab Transmission Status: Pending to [facility] #30 Losartan Potassium [Cozaar] 25 mg PO BID #60 tab Transmission Status: Pending to [facility] #30 Potassium Chloride [K-Dur] 40 meq PO DAILYCM #30 tab Transmission Status: Pending to [facility] #30 Furosemide [Lasix] 40 mg PO DAILY #30 tab Transmission Status: Pending to [facility] #30 Primary Care Physician: Chema Mckeon DO [Primary Care Provider] - Please follow up with your Primary Care Physician in: 1 week. Test Results: Test results from this visit will be discussed in further detail at your follow- up appointment, if applicable. Please Follow Up With: AISHA Gonzalez When: 2 weeks. Proposed Discharge Date: 03/17/19
--- NOTE | 2019-03-14 20:18 | PCM.DC.SUM ---
Discharge Date and Diagnosis - Problem List Patient Problems: Active and Suspected Problems (Last Updated 03/06/19 @ 08:39 by Chelsea Lomax) Debility (Acute) Date of Admission: 03/10/19 Date of Discharge: 03/17/19 - Primary Discharge Diagnosis Active and Suspected Problems (Last Updated 03/06/19 @ 08:39 by Chelsea Lomax) Debility (Acute) - Secondary Discharge Diagnosis Chronic Problems (Last Updated 03/06/19 @ 08:39 by Chelsea Lomax) Arteriosclerosis of coronary artery in patient with history of myocardial infarction (Chronic) STEMI 03/05/2019:Triple vessel CAD of the LM, LAD, LCX RCA Successful PTCA/ESTEBAN of mid RCA with a 2.25 x 38 Promus Synergy, post dilated throughout with a 2.5 x 8 NC balloon; 99%-->0%, no dissection. Successful PTCA/ESTEBAN proximal RCA with a 2.5 x 16 Promus Synergy, post dilated with a 2.5 x 8 NC balloon; 75%-->0%, no dissection. Successful PTCA/ESTEBAN distal RCA with transition into PDA utilizing a 2.25 x 38 Promus Synergy, followed upstream with a 2.25 x 16 Promus Synergy, post dilated with a 2.5 x 8 NC in the 16mm stented area only; 75%-->0%, no dissection or perforation. Stented coronary artery (Chronic 03/06/19) Triple vessel CAD of the LM, LAD, LCX RCA Successful PTCA/ESTEBAN of mid RCA with a 2.25 x 38 Promus Synergy, post dilated throughout with a 2.5 x 8 NC balloon; 99%-->0%, no dissection. Successful PTCA/ESTEBAN proximal RCA with a 2.5 x 16 Promus Synergy, post dilated with a 2.5 x 8 NC balloon; 75%-->0%, no dissection. Successful PTCA/ESTEBAN distal RCA with transition into PDA utilizing a 2.25 x 38 Promus Synergy, followed upstream with a 2.25 x 16 Promus Synergy, post dilated with a 2.5 x 8 NC in the 16mm stented area only; 75%-->0%, no dissection or perforation. Hypertension (Chronic) Type 2 diabetes mellitus (Chronic) Secondary hypertension (Chronic) CVA (cerebral vascular accident) (Chronic) Noncompliance with diabetes treatment (Chronic) Hospital Course and Treatment Imaging Results: 03/10/19 16:18 Diet: Cardiac: Carb-Controlled Food consistency:: Regular Liquid Consistency:: Regular/Thin Is pt able to select menu?: Yes Labs (Last 48 Hours) 03/12/19 03/13/19 03/13/19 20:53 06:15 10:35 POC Glucose 224 H 299 H 448 H 03/13/19 03/13/19 03/14/19 17:04 20:54 06:18 POC Glucose 197 H 295 H 303 H 03/14/19 03/14/19 10:52 16:55 POC Glucose 166 H 109 Operations: None Procedures: None Summary of Care Provided: The patient is a 58 year old Male with below past medical history hospitalized for STEMI, recent CVA 2 months ago will be admitted to TCU with debility, here for rehabilitation, strengthening, prior to being discharged home with . Discharge home with , brother in law, [facility] for PT/OT. Patient Problems: Active and Suspected Problems (Last Updated 03/06/19 @ 08:39 by Chelsea Lmoax) Debility (Acute) - Physical Exam Vitals/I&O's: Vital Signs Temp Pulse Resp BP Pulse Ox 97.2 F L 75 20 H 112/67 94 03/14/19 16:00 03/14/19 16:00 03/14/19 16:00 03/14/19 16:00 03/14/19 16:00 Oxygen Delivery Method Room Air Weight: 93.242 kg Body Mass Index (BMI) 30.4 Finger Stick Blood Glucose 122 Intake and Output for Last 24 Hours 03/12/19 03/13/19 03/14/19 23:59 23:59 23:59 Intake Total 1200 / 1200 960 / 960 600 / 600 Output Total 900 / 900 350 / 350 Balance 300 / 300 960 / 960 250 / 250 Laboratory Results 03/13/19 20:54: POC Glucose 295 H 03/14/19 06:18: POC Glucose 303 H 03/14/19 10:52: POC Glucose 166 H 03/14/19 16:55: POC Glucose 109 Current Medications Acetaminophen (Tylenol) 650 mg PO Q6H PRN PRN PRN Reason: Pain Score 1-3/10 Albuterol/Ipratropium (Duoneb) 3 ml INHALATION Q6HWA.RT PRN PRN Reason: SOB &/OR WHEEZING Aspirin (Aspirin, Baby) 81 mg PO DAILY@0800 [facility] Last Admin: 03/14/19 07:57 Dose: 81 mg Documented by: Atorvastatin Calcium (Lipitor) 80 mg PO QHS [facility] Last Admin: 03/13/19 22:38 Dose: 80 mg Documented by: Bisacodyl (Dulcolax) 10 mg PO DAILY PRN PRN Reason: Constipation Calamine/Phenol (Calmoseptine Ointment) 1 applic TOPICAL 0600,2200 [facility]; Protocol Last Admin: 03/14/19 05:19 Dose: 1 applicatio Documented by: Carvedilol (Coreg) 12.5 mg PO BID [facility] Last Admin: 03/14/19 17:55 Dose: 12.5 mg Documented by: Dextrose (D50w Syringe) 0 gm IV X1 PRN; Protocol PRN Reason: Hypoglycemia Diazepam (Valium) 5 mg PO BID [facility] Last Admin: 03/14/19 17:57 Dose: 5 mg Documented by: Duloxetine HCl (Cymbalta) 60 mg PO DAILY [facility] Last Admin: 03/14/19 05:19 Dose: 60 mg Documented by: Enoxaparin Sodium (Lovenox) 40 mg SC DAILY [facility] Last Admin: 03/14/19 05:19 Dose: 40 mg Documented by: Furosemide (Lasix) 40 mg PO DAILY [facility] Last Admin: 03/14/19 05:18 Dose: 40 mg Documented by: Glucagon () 1 mg IM .X1 PRN PRN Reason: Hypoglycemia Insulin Glargine (Lantus (Bkc)) 34 units SC QHS [facility] Insulin Human Lispro (Humalog Kwikpen (Bkc)) 11 unit SC TIDAC [facility] Last Admin: 03/14/19 17:53 Dose: 11 units Documented by: Losartan Potassium (Cozaar) 25 mg PO BID [facility] Last Admin: 03/14/19 17:55 Dose: 25 mg Documented by: Nitroglycerin (Nitrostat) 0.4 mg SUBLINGUAL Q5M PRN PRN Reason: CARDIAC/CHEST PAIN Nystatin (Mycostatin Powder) 1 applic TOPICAL 0600,2200 [facility]; Protocol Last Admin: 03/14/19 05:20 Dose: 1 applicatio Documented by: Pantoprazole Sodium (Protonix) 40 mg PO DAILY [facility] Last Admin: 03/14/19 05:18 Dose: 40 mg Documented by: Polyethylene Glycol (Miralax) 17 gm PO DAILY [facility] Last Admin: 03/14/19 05:19 Dose: Not Given Documented by: Potassium Chloride (K-Dur) 40 meq PO DAILYCM [facility] Last Admin: 03/14/19 07:57 Dose: 40 meq Documented by: Pregabalin (Lyrica) 150 mg PO BID [facility] Last Admin: 03/14/19 17:57 Dose: 150 mg Documented by: Senna/Docusate Sodium (Senokot-S, Thalia-Colace) 1 tablet PO BID [facility] Last Admin: 03/14/19 17:53 Dose: Not Given Documented by: Ticagrelor (Brilinta) 90 mg PO BID [facility] Last Admin: 03/14/19 17:54 Dose: 90 mg Documented by: Tuberculin PPD (Tubersol, Aplisol, Ppd) 5 tu ID [id number] ONE Stop: 03/18/19 10:01 Discharge Diet: No Restrictions Discharge Activity: Return to Normal Activity, May Shower, Use Walker May resume sexual activity in: 6 weeks Weight Bearing Status: Weight bearing as tolerated Call your doctor if you observe: Fever of 101 or Higher, Inability to urinate, Inability to have a bowel movement, Shortness of breath, Dizziness, Chest pain, Increased palpitations (irregular heartbeat), Uncontrolled pain Home Medications: Medications to take at Discharge diazepam 5 mg tablet 5 mg PO BID 02/27/19 duloxetine 60 mg capsule,delayed release 60 mg PO DAILY 02/27/19 pregabalin 150 mg capsule 150 mg PO BID 02/27/19 Acetaminophen [Tylenol Tablet] 650 mg PO Q6H PRN PRN tab 03/10/19 Aspirin [Aspirin, Baby] 81 mg PO DAILY@0800 03/10/19 Atorvastatin Calcium [Lipitor] 80 mg PO QHS 03/10/19 Nitroglycerin (INPATIENT USE) [Nitrostat] 0.4 mg SUBLINGUAL Q5M PRN #0 tab.subl 03/10/19 Pantoprazole Sodium [Protonix] 40 mg PO DAILY 03/10/19 Carvedilol [Coreg (Beta Jeffrey)] 12.5 mg PO BID #60 tab 03/14/19 Furosemide [Lasix] 40 mg PO DAILY #30 tab 03/14/19 Insulin Glargine [Lantus SoloStar Pen] 34 units SC QHS pen 03/14/19 Insulin Lispro [Humalog KwikPen] 11 unit SC TIDAC insuln.pen 03/14/19 Losartan Potassium [Cozaar] 25 mg PO BID #60 tab 03/14/19 Menthol/Lanolin/Calamine/Znox [Calmoseptine Ointment] 1 applic TOPICAL 0600,2200 tube 03/14/19 Nystatin Powder [Mycostatin Powder] 1 applic TOPICAL 0600,2200 bottle 03/14/19 Potassium Chloride [K-Dur] 40 meq PO DAILYCM #30 tab 03/14/19 Ticagrelor [Brilinta] 90 mg PO BID #60 tab 03/14/19 Following Prescrptions Were Given to Patient: Ticagrelor [Brilinta] 90 mg PO BID #60 tab Transmission Status: Pending to [facility] #30 Carvedilol [Coreg (Beta Jeffrey)] 12.5 mg PO BID #60 tab Transmission Status: Pending to [facility] #30 Losartan Potassium [Cozaar] 25 mg PO BID #60 tab Transmission Status: Pending to [facility] #30 Potassium Chloride [K-Dur] 40 meq PO DAILYCM #30 tab Transmission Status: Pending to [facility] #30 Furosemide [Lasix] 40 mg PO DAILY #30 tab Transmission Status: Pending to [facility] #30 Primary Care Physician: Chema Mckeon DO [Primary Care Provider] - Please follow up with your Primary Care Physician in: 1 week. Please Follow Up With: AISHA Gonzalez When: 2 weeks. Disposition: Home with Home Health Minutes spent on discharge:: 35 Patient Condition:: Stable Medical Necessity - Tobacco Use Smoking Status: Unknown if ever smoked Meaningful Use Info Meaningful Use Diagnoses (Choose all that apply): None applicable
--- NOTE | 2019-03-14 20:19 | HHNOTE_ITS ---
Home Health Note - Plan Overview of reason of hospitalization: The patient is a 58 year old Male with below past medical history hospitalized for STEMI, recent CVA 2 months ago will be admitted to TCU with debility, here for rehabilitation, strengthening, prior to being discharged home with . Discharge home with , brother in law, [facility] for PT/OT. Problems: Patient was seen for (Last Updated 03/06/19 @ 08:39 by Chelsea Lomax) Debility (Acute) Complete List of Medical Problems (Last Updated 03/06/19 @ 08:39 by Chelsea Lomax) Debility (Acute) Arteriosclerosis of coronary artery in patient with history of myocardial infarction (Chronic) Stented coronary artery (Chronic 03/06/19) STEMI (ST elevation myocardial infarction) (Acute 03/05/19) Hypertension (Chronic) Type 2 diabetes mellitus (Chronic) Secondary hypertension (Chronic) Syncope and collapse (Acute) CVA (cerebral vascular accident) (Chronic) Syncope (Acute) Bradycardia (Acute) Noncompliance with diabetes treatment (Chronic) - Requirements and Reasons Disciplines Needed/Ordered: Physical Therapy Reason for Disciplines: Gait Training, Stair Training, Fall Prevention, Home Safety/Equipment Instruction, Balance and/or Posture Training, Transfer Training Related To: Change in Medical Treatment Plan, Limited/Poor Endurance, Shortness of Breath with Activity, Physical Impairments, Unsteady Gait/Balance, Fall Risk Patient is unable to leave the home: Without Aid of Supportive Devices (crutches, cane, wheelchair, walker), Without the assistance of another person, Because it is medically contraindicated Medically Contraindicated related to: Cardiac Condition - Additional Disciplines Additional Disciplines Needed/Ordered: Occupational Therapy
[2019-03-14 21:01] LABS: Bedside Glucose 164 mg/dL (70-110)
[2019-03-14] MEDS: Atorvastatin Calcium 80 MG Tablet PO (21:59)
[2019-03-15] MEDS: Menthol/Lanolin/Calamine/Znox 113 GM Tube 1 APPLIC TOPICAL ×2 (05:30→21:20)
[2019-03-15] MEDS: Nystatin Powder 15gm Bottle 1 APPLIC TOPICAL ×2 (05:30→21:20)
[2019-03-15] MEDS: Carvedilol 12.5 MG Tablet PO ×2 (05:30→17:51)
[2019-03-15] MEDS: Senna/Docusate Sodium 1 Tablet PO (05:30)
[2019-03-15] MEDS: Pregabalin 75 MG Capsule 150 MG PO ×2 (05:30→17:51)
[2019-03-15] MEDS: diazePAM 5 MG Tablet PO ×2 (05:30→17:55)
[2019-03-15] MEDS: Losartan Potassium 25 MG Tablet PO ×2 (05:30→17:51)
[2019-03-15] MEDS: Pantoprazole Sodium 40 MG Tablet PO (05:30)
[2019-03-15] MEDS: Furosemide 40 MG Tablet PO (05:30)
[2019-03-15] MEDS: TICAGRELOR 90 MG TABLET PO ×2 (05:30→17:51)
[2019-03-15] MEDS: Enoxaparin 40 MG/0.4 ML Syringe SC (05:31)
[2019-03-15 06:30] LABS: Bedside Glucose 168 mg/dL (70-110)
[2019-03-15] MEDS: Insulin Lispro 100 UNIT/ML INSULN.PEN 11 UNIT SC ×3 (07:46→17:50)
[2019-03-15] MEDS: Aspirin 81 MG TAB.CHEW PO (07:47)
[2019-03-15 11:31] LABS: Bedside Glucose 116 mg/dL (70-110)
[2019-03-15 12:56] VITALS: PULSE 62; O2SAT 94
[2019-03-15 15:20] VITALS: BP 132/73; PULSE 67; RESP 16; TEMP 36.6; O2SAT 97
[2019-03-15 16:55] LABS: Bedside Glucose 102 mg/dL (70-110)
[2019-03-15 20:56] LABS: Bedside Glucose 149 mg/dL (70-110)
[2019-03-15] MEDS: Atorvastatin Calcium 80 MG Tablet PO (21:21)
[2019-03-16] MEDS: Pregabalin 75 MG Capsule 150 MG PO ×2 (05:11→17:49)
[2019-03-16] MEDS: diazePAM 5 MG Tablet PO ×2 (05:11→17:49)
[2019-03-16] MEDS: Losartan Potassium 25 MG Tablet PO ×2 (05:11→17:45)
[2019-03-16] MEDS: Nystatin Powder 15gm Bottle 1 APPLIC TOPICAL ×2 (05:12→21:37)
[2019-03-16] MEDS: Furosemide 40 MG Tablet PO (05:12)
[2019-03-16] MEDS: DULoxetine Hcl 60 MG Capsule PO (05:12)
[2019-03-16] MEDS: Menthol/Lanolin/Calamine/Znox 113 GM Tube 1 APPLIC TOPICAL (05:12)
[2019-03-16] MEDS: Senna/Docusate Sodium 1 Tablet PO (05:12)
[2019-03-16] MEDS: Carvedilol 12.5 MG Tablet PO ×2 (05:12→17:45)
[2019-03-16] MEDS: Pantoprazole Sodium 40 MG Tablet PO (05:12)
[2019-03-16] MEDS: TICAGRELOR 90 MG TABLET PO ×2 (05:12→17:44)
[2019-03-16] MEDS: Enoxaparin 40 MG/0.4 ML Syringe SC (05:12)
[2019-03-16 06:50] LABS: Bedside Glucose 207 mg/dL (70-110)
[2019-03-16] MEDS: Insulin Lispro 100 UNIT/ML INSULN.PEN 11 UNIT SC ×3 (07:58→17:43)
[2019-03-16] MEDS: Aspirin 81 MG TAB.CHEW PO (07:59)
[2019-03-16 11:26] LABS: Bedside Glucose 389 mg/dL (70-110)
--- NOTE | 2019-03-16 11:41 | PHA.CONS_ITS ---
<LeobardoTin grandei - Last Filed: 03/16/19 11:41> Progress Note - Pharmacy Subjective: TCU Admission Objective: Allergies nifedipine [From Adalat] Allergy (Verified 02/27/19 15:01) Unknown Current Medications Generic Name Dose Route Start Last Admin Trade Name Freq PRN Reason Stop Dose Admin Acetaminophen 650 mg 03/10/19 16:12 Tylenol PO Q6H PRN PRN Pain Score 1-3/10 Albuterol/Ipratropium 3 ml 03/11/19 09:19 Duoneb INHALATION Q6HWA.RT PRN SOB &/OR WHEEZING Aspirin 81 mg 03/11/19 08:00 03/16/19 07:59 Aspirin, Baby PO 81 mg DAILY@0800 AN[facility]IO Administration Atorvastatin Calcium 80 mg 03/10/19 22:00 03/15/19 21:21 Lipitor PO 80 mg QHS [facility] Administration Bisacodyl 10 mg 03/10/19 22:06 Dulcolax PO DAILY PRN Constipation Calamine/Phenol 1 applic 03/11/19 06:00 03/16/19 05:12 Calmoseptine Ointment TOPICAL 1 applicatio 0600,2200 AN[facility] Administration Protocol Carvedilol 12.5 mg 03/10/19 18:00 03/16/19 05:12 Coreg PO 12.5 mg BID AN[facility] Administration Dextrose 0 gm 03/10/19 23:36 D50w Syringe IV X1 PRN Hypoglycemia Protocol Diazepam 5 mg 03/10/19 18:00 03/16/19 05:11 Valium PO 5 mg BID AN[facility]IO Administration Duloxetine HCl 60 mg 03/11/19 06:00 03/16/19 05:12 Cymbalta PO 60 mg DAILY AN[facility]IO Administration Enoxaparin Sodium 40 mg 03/13/19 06:00 03/16/19 05:12 Lovenox SC 40 mg DAILY [facility] Administration Furosemide 40 mg 03/11/19 06:00 03/16/19 05:12 Lasix PO 40 mg DAILY [facility] Administration Glucagon 1 mg 03/10/19 23:36 IM .X1 PRN Hypoglycemia Insulin Glargine 34 units 03/14/19 22:00 03/15/19 21:21 Lantus (Bkc) SC 34 units QHS [facility] Administration Insulin Human Lispro 11 unit 03/15/19 06:45 03/16/19 07:58 Humalog Kwikpen (Bkc) SC 11 units TIDAC [facility] Administration Losartan Potassium 25 mg 03/10/19 18:00 03/16/19 05:11 Cozaar PO 25 mg BID [facility] Administration Nitroglycerin 0.4 mg 03/10/19 16:12 Nitrostat SUBLINGUAL Q5M PRN CARDIAC/CHEST PAIN Nystatin 1 applic 03/11/19 06:00 03/16/19 05:12 Mycostatin Powder TOPICAL 1 applicatio 0600,2200 [facility] Administration Protocol Pantoprazole Sodium 40 mg 03/11/19 06:00 03/16/19 05:12 Protonix PO 40 mg DAILY [facility] Administration Polyethylene Glycol 17 gm 03/11/19 06:00 03/16/19 05:12 Miralax PO Not Given DAILY [facility] Potassium Chloride 40 meq 03/11/19 08:00 03/16/19 07:59 K-Dur PO 40 meq DAILYCM [facility] Administration Pregabalin 150 mg 03/10/19 18:00 03/16/19 05:11 Lyrica PO 150 mg BID [facility] Administration Senna/Docusate Sodium 1 tablet 03/11/19 06:00 03/16/19 05:12 Senokot-S, Thalia-Colace PO 1 tablet BID [facility] Administration Ticagrelor 90 mg 03/10/19 18:00 03/16/19 05:12 Brilinta PO 90 mg BID [facility] Administration Tuberculin PPD 5 tu 03/18/19 10:00 Tubersol, Aplisol, Ppd ID 03/18/19 10:01 X1 ONE Problem List (Last Updated 03/06/19 @ 08:39 by Chelsea Lomax) Debility (Acute) Vital Signs Temp Pulse Resp BP Pulse Ox 97.9 F 67 16 132/73 H 97 03/15/19 15:20 03/15/19 15:20 03/15/19 15:20 03/15/19 15:20 03/15/19 15:20 Oxygen Delivery Method Room Air Weight: 93.242 kg Body Mass Index (BMI) 30.4 Finger Stick Blood Glucose 122 Sodium 138 mmol/L (136-145) 03/11/19 07:04 Potassium 4.0 mmol/L (3.5-5.1) 03/11/19 07:04 Chloride 102 mmol/L (98-107) 03/11/19 07:04 Carbon Dioxide 25.0 mmol/L (21.0-32.0) 03/11/19 07:04 Anion Gap 11 (5-15) 03/11/19 07:04 BUN 35 mg/dL (7-18) H 03/11/19 07:04 Creatinine 1.61 mg/dL (0.70-1.30) H 03/11/19 07:04 Est GFR (MDRD) Af Amer 57 mL/min (>60) L 03/11/19 07:04 Est GFR (MDRD) Non-Af 47 mL/min (>60) L 03/11/19 07:04 BUN/Creatinine Ratio 21.7 RATIO (10-20) H 03/11/19 07:04 Glucose 328 mg/dL (74-106) H 03/11/19 07:04 Assessment/Plan: *1. Pain: acetaminophen 650mg PO Q6H PRN pain (1-3/10). Please consider increasing pain scale to 1-10/10. Thanks. Please continue to monitor for pain and PRN usage. 2. DVT prophylaxis: enoxaparin 40 mg SC daily. Please continue to monitor renal function, platelets, and for S/S of bleeding. 3. Acute STEMI s/p angioplasty/hypertension/CVA: ticagrelor 90mg PO BID, aspirin 81mg PO DAILYCM, carvedilol 12.5mg PO BID and losartan 25mg PO BID. Please continue to monitor for S/S of bleeding, HR, and BP. 4. Ischemic cardiomyopathy: furosemide 40mg PO daily and carvedilol 12.5mg PO BID. Please continue to monitor renal function. 5. Hyperlipidemia: atorvastatin 80mg PO QHS. Lipid panel UTD. Please continue to monitor for muscle pain. *6. Type II diabetes mellitus: insulin glargine 34units SC QHS, insulin lispro 11units SC TIDAC. Recent A1c in patient's chart. POC glucose readings are still consistently elevated. Please consider increasing insulin glargine for better basal control if clinically appropriate. Thanks. 7. Diabetic neuropathy: pregabalin 150mg PO BID. Please continue to monitor renal function, S/S of confusion, and increased pain. 8. GERD: pantoprazole 40mg PO daily. Please continue to monitor for S/S of GERD. 9. Hypokalemia: potassium chloride 40mEq PO DAILYCM. Please continue to monitor potassium levels and muscle weakness. Psychotropic Medications: *1. Depression with anxiety: duloxetine 60mg PO daily and diazepem 5mg PO BID. Please consider GDR by 09/29 if clinically appropriate. Unnecessary Medications: None *Bowel Regimen: Miralax 17gm PO daily, senna/docusate 1T PO BID, bisacodyl 10mg PO daily PRN constipation. Please consider changing Miralax and senna/docusate to PRN constipation due to patient refusing doses. Please continue to monitor for constipation. Date of Note:: 03/16/19 - Provider Comments Provider responsibility: Provider responsible to enter orders to implement recommendations <Ranjit Rodriguez Chi - Last Filed: 03/16/19 17:55> Progress Note - Pharmacy Subjective: [] Objective: Allergies nifedipine [From Adalat] Allergy (Verified 02/27/19 15:01) Unknown Current Medications Generic Name Dose Route Start Last Admin Trade Name Freq PRN Reason Stop Dose Admin Acetaminophen 650 mg 03/10/19 16:12 Tylenol PO Q6H PRN PRN Pain Score 1-3/10 Albuterol/Ipratropium 3 ml 03/11/19 09:19 Duoneb INHALATION Q6HWA.RT PRN SOB &/OR WHEEZING Aspirin 81 mg 03/11/19 08:00 03/16/19 07:59 Aspirin, Baby PO 81 mg DAILY@0800 [facility] Administration Atorvastatin Calcium 80 mg 03/10/19 22:00 03/15/19 21:21 Lipitor PO 80 mg QHS [facility] Administration Bisacodyl 10 mg 03/10/19 22:06 Dulcolax PO DAILY PRN Constipation Calamine/Phenol 1 applic 03/11/19 06:00 03/16/19 05:12 Calmoseptine Ointment TOPICAL 1 applicatio 0600,2200 [facility] Administration Protocol Carvedilol 12.5 mg 03/10/19 18:00 03/16/19 17:45 Coreg PO 12.5 mg BID [facility] Administration Dextrose 0 gm 03/10/19 23:36 D50w Syringe IV X1 PRN Hypoglycemia Protocol Diazepam 5 mg 03/10/19 18:00 03/16/19 17:49 Valium PO 5 mg BID [facility] Administration Duloxetine HCl 60 mg 03/11/19 06:00 03/16/19 05:12 Cymbalta PO 60 mg DAILY [facility] Administration Enoxaparin Sodium 40 mg 03/13/19 06:00 03/16/19 05:12 Lovenox SC 40 mg DAILY [facility] Administration Furosemide 40 mg 03/11/19 06:00 03/16/19 05:12 Lasix PO 40 mg DAILY [facility] Administration Glucagon 1 mg 03/10/19 23:36 IM .X1 PRN Hypoglycemia Insulin Glargine 34 units 03/14/19 22:00 03/15/19 21:21 Lantus ([facility]) SC 34 units QHS [facility] Administration Insulin Human Lispro 11 unit 03/15/19 06:45 03/16/19 17:43 Humalog Kwikpen ([facility]) SC 11 units TIDAC [facility] Administration Losartan Potassium 25 mg 03/10/19 18:00 03/16/19 17:45 Cozaar PO 25 mg BID [facility] Administration Nitroglycerin 0.4 mg 03/10/19 16:12 Nitrostat SUBLINGUAL Q5M PRN CARDIAC/CHEST PAIN Nystatin 1 applic 03/11/19 06:00 03/16/19 05:12 Mycostatin Powder TOPICAL 1 applicatio 0600,2200 [facility] Administration Protocol Pantoprazole Sodium 40 mg 03/11/19 06:00 03/16/19 05:12 Protonix PO 40 mg DAILY [facility] Administration Polyethylene Glycol 17 gm 03/11/19 06:00 03/16/19 05:12 Miralax PO Not Given DAILY [facility] Potassium Chloride 40 meq 03/11/19 08:00 03/16/19 07:59 K-Dur PO 40 meq DAILYCM [facility] Administration Pregabalin 150 mg 03/10/19 18:00 03/16/19 17:49 Lyrica PO 150 mg BID [facility] Administration Senna/Docusate Sodium 1 tablet 03/11/19 06:00 03/16/19 17:46 Senokot-S, Thalia-Colace PO Not Given BID [facility] Ticagrelor 90 mg 03/10/19 18:00 03/16/19 17:44 Brilinta PO 90 mg BID [facility] Administration Tuberculin PPD 5 tu 03/18/19 10:00 Tubersol, Aplisol, Ppd ID 03/18/19 10:01 X1 ONE Problem List (Last Updated 03/06/19 @ 08:39 by Chelsea Lomax) Debility (Acute) Vital Signs Temp Pulse Resp BP Pulse Ox 97.5 F L 73 24 H 137/92 H 100 03/16/19 15:18 03/16/19 17:50 03/16/19 15:18 03/16/19 17:50 03/16/19 15:18 Oxygen Delivery Method Room Air Weight: 93.242 kg Body Mass Index (BMI) 30.4 Finger Stick Blood Glucose 122 Sodium 138 mmol/L (136-145) 03/11/19 07:04 Potassium 4.0 mmol/L (3.5-5.1) 03/11/19 07:04 Chloride 102 mmol/L (98-107) 03/11/19 07:04 Carbon Dioxide 25.0 mmol/L (21.0-32.0) 03/11/19 07:04 Anion Gap 11 (5-15) 03/11/19 07:04 BUN 35 mg/dL (7-18) H 03/11/19 07:04 Creatinine 1.61 mg/dL (0.70-1.30) H 03/11/19 07:04 Est GFR (MDRD) Af Amer 57 mL/min (>60) L 03/11/19 07:04 Est GFR (MDRD) Non-Af 47 mL/min (>60) L 03/11/19 07:04 BUN/Creatinine Ratio 21.7 RATIO (10-20) H 03/11/19 07:04 Glucose 328 mg/dL (74-106) H 03/11/19 07:04 Assessment/Plan: Psychotropic Medications: Unnecessary Medications: Bowel Regimen: - Provider Comments Provider responsibility: Provider responsible to enter orders to implement recommendations Provider Comments to Recommendations by Pharmacy: Agree
--- NOTE | 2019-03-16 13:44 | MDS.RN ---
Pain interview for olivier 03/17/19 completed.
--- NOTE | 2019-03-16 14:12 | CASEMGMT ---
Social Work IDT met with patient and for care plan meeting. Pt is independent with bed mobility, supervision for transfers and all ADLs, walking 200 ft with FWW at supervision and completing 5 steps with 2 handrails at CGA. stated pt is getting enrolled in [employer] and [employer] at home. Pt chose [facility] - referral made for PT/OT. Pt DC home 03/17. ELLEN VanessaW
[2019-03-16 15:18] VITALS: BP 124/64; PULSE 73; RESP 24; TEMP 36.4; O2SAT 100
[2019-03-16 16:46] LABS: Bedside Glucose 161 mg/dL (70-110)
[2019-03-16 17:50] VITALS: BP 137/92; PULSE 73
[2019-03-16] MEDS: Atorvastatin Calcium 80 MG Tablet PO (21:33)
[2019-03-16 21:36] LABS: Bedside Glucose 197 mg/dL (70-110)
[2019-03-17] MEDS: TICAGRELOR 90 MG TABLET PO (05:12)
[2019-03-17] MEDS: Furosemide 40 MG Tablet PO (05:12)
[2019-03-17] MEDS: Enoxaparin 40 MG/0.4 ML Syringe SC (05:12)
[2019-03-17] MEDS: DULoxetine Hcl 60 MG Capsule PO (05:12)
[2019-03-17] MEDS: Losartan Potassium 25 MG Tablet PO (05:12)
[2019-03-17] MEDS: Menthol/Lanolin/Calamine/Znox 113 GM Tube 1 APPLIC TOPICAL (05:12)
[2019-03-17] MEDS: Carvedilol 12.5 MG Tablet PO (05:12)
[2019-03-17] MEDS: Pantoprazole Sodium 40 MG Tablet PO (05:12)
[2019-03-17] MEDS: Nystatin Powder 15gm Bottle 1 APPLIC TOPICAL (05:13)
[2019-03-17] MEDS: diazePAM 5 MG Tablet PO (05:18)
[2019-03-17] MEDS: Pregabalin 75 MG Capsule 150 MG PO (05:19)
[2019-03-17 06:31] LABS: Bedside Glucose 270 mg/dL (70-110)
[2019-03-17] MEDS: Aspirin 81 MG TAB.CHEW PO (07:40)
[2019-03-17] MEDS: Insulin Lispro 100 UNIT/ML INSULN.PEN 11 UNIT SC (07:41)
[2019-03-17 10:00] VITALS: PULSE 69; RESP 18; O2SAT 92
[2019-03-17 11:08] VITALS: BP 128/81; PULSE 68; RESP 20; TEMP 36.7; O2SAT 98
--- NOTE | 2019-03-21 08:36 | MDS.RN ---
Information for the mds was obtained from review of the clinical record, interview of resident, staff, and direct observation of resident's care.
== END 2019-03-17 10:15 | disposition home health service (06) | DRG 949 ==
PROVIDERS: Nurse Practitioner Family; Admitting Provider Family Medicine Geriatric Medicine; Family Provider Family Medicine; PCP Family Medicine; Referring Provider Family Medicine Geriatric Medicine; Visit Provider Family Medicine Geriatric Medicine
DX: Z48.812 Encounter for surgical aftercare following surgery on the circulatory system (principal); I21.29 ST elevation (STEMI) myocardial infarction involving other sites; I69.354 Hemiplegia and hemiparesis following cerebral infarction affecting left non-dominant side; Z23 Encounter for immunization; E78.5 Hyperlipidemia, unspecified; E11.65 Type 2 diabetes mellitus with hyperglycemia; I25.10 Atherosclerotic heart disease of native coronary artery without angina pectoris; Z95.5 Presence of coronary angioplasty implant and graft; I15.9 Secondary hypertension, unspecified; F32.9 Major depressive disorder, single episode, unspecified; K21.9 Gastro-esophageal reflux disease without esophagitis; N18.9 Chronic kidney disease, unspecified; E11.22 Type 2 diabetes mellitus with diabetic chronic kidney disease; Z91.19 Patient's noncompliance with other medical treatment and regimen; F41.8 Other specified anxiety disorders
CPT/HCPCS: 36415; 80048; 82962; 85025; 90732; 97110; 97116; 97163; 97165; 97530; 97535; 97542; 97802

== ENCOUNTER 2019-03-20 07:27 | Inpatient (IN) | payer OTHER, MEDICARE, MEDICAID, SELFPAY ==
[2019-03-06 08:28] VITALS: BMI 29.0
[2019-03-20] VITALS (9 sets, daily range): BP systolic 110–145; BP diastolic 59–96; PULSE 63–75; RESP 15–18; TEMP 36.3–36.8; O2SAT 98–100; BMI 30.9; BMI 29.5; BMI 29.6
--- NOTE | 2019-03-20 08:08 | ED.VISSUMM ---
- ER Visit Summary Date of Service: 03/20/19 Chief Complaint: Fall History of Present Illness: The patient is a 58 M history of prior stroke, CAD with recent PA and stents. Also a diabetic and a dilated cardiomyopathy. Patient was just recently discharged in the hospital in the rehab unit. Today at home he got up and fell causing abrasions to both knees. Family helped him get up and he fell a second time. He denies hitting his head. He denies feeling ill. He was hoping to speak with social work manager about possible different housing arrangements. He denies any recent vomiting, diarrhea or fever. Physical Examination: Middle-aged male no acute distress vital signs stable afebrile. H EENT exam unremarkable atraumatic. Pupils round reactive light. Neck nontender. Lungs clear to auscultation. Heart regular rhythm no murmur. Abdomen soft nontender normal bowel sounds no peritoneal signs. Extremities moves all 4. He has abrasions of both knees. But is able to flex extend his hips, knees and ankles. Is no gross bony deformity. Is no significant tenderness. Upper extremities are nontender. Neurologically is awake and alert with no focal motor deficits. He has normal check cashier strength bilaterally. Test Results: CBC shows white count of 11. Hemoglobin 11. No bands. Chemistry panel showed acute renal failure with a BUN of 103 creatinine 3.1 previously his creatinines were 1.6-1.9. And his potassium is severely elevated 6.9. He is normally has normal or low potassiums. EKG shows a sinus rhythm rate of 63 with no acute signs of PA or ischemia. He has Q waves inferiorly consistent with an old inferior infarct. There are no acute KG changes secondary to his acute severe hyperkalemia. Emergency Department Course and Treatment: Clinically patient's exam he has abrasions to both knees. But really no other significant acute finding. registered nurse surgical services will be in later this morning and I will have the patient discussed with them possible options for housing arrangement. Treatment Plan: Due to his renal failure and acute hyperkalemia will be started on IV glucose, aerosols, bicarbonate, calcium chloride and insulin. Very spoke to the hospitalist for PCU admission. Disposition: Admission Impression: Acute falls with bilateral knee abrasions Acute renal failure with severe hyperkalemia History of CAD with stents History of diabetes Prior stroke This note was generated with [employer] dictation software. It may contain incorrect words, spelling, and punctuation that were not noted in review of the chart prior to signing ED Disposition - Plan for ED Patient: Referrals: Chema Mckeon DO [Primary Care Provider] -
[2019-03-20 08:38] LABS: Absolute Neutrophil Count 9.6 X10^3/uL (2.0-7.7); Basophil# 0.05 X10^3/uL; Basophil% 0.4 % (0-1); Eosinophil# 0.16 X10^3/uL; Eosinophils% 1.4 % (0-5); Hematocrit 34.8 % (40-54); Hemoglobin 11.8 g/dL (13.0-16.5); Lymphocyte % 5.4 % (19-41); Mean Corp Hgb Conc 33.9 g/dL (32-36); Mean Corpuscular Hgb 29.9 pg (27.0-32.0); Mean Corpuscular Volume 88.3 fL (80-94); Mean Platelet Vol. 12.5 fl (6.2-12.0); Monocyte# 0.56 X10^3/uL; NRBC Flagged by Analyzer 0 % (0-5); Neutrophil # 9.61 X10^3/uL (2.7-7.7); Neutrophil % 86.5 % (47-70); POSITIVE DIFFERENTIAL YES; Platelet Count 173 K/mm3 (150-450); RBC Distribution Width CV 13.2 % (11.6-14.6); RBC Distribution Width SD 42.6 fl (35.1-43.9); Red Blood Count 3.94 M/mm3 (4.6-6.2); White Blood Count 11.1 K/mm3 (4.4-11.0)
[2019-03-20 08:42] LABS: Differential Indicated SCAN CRITERIA MET
[2019-03-20 08:49] LABS: Anion Gap 6 (5-15); BUN 103 mg/dL (7-18); BUN/Creat Ratio 32.6 RATIO (10-20); Calcium,Total 9.1 mg/dL (8.5-10.1); Chloride 107 mmol/L (98-107); Creatinine, Serum 3.16 mg/dL (0.70-1.30); EST Glomerular Filtration Rate 21 mL/min (>60); Est Glom Filt Rate - Afr Amer 26 mL/min (>60); Estimated Creatinine Clearance 25.67 ml/min; Glucose 292 mg/dL (74-106); Potassium 6.9 mmol/L (3.5-5.1); Sodium Level 135 mmol/L (136-145)
--- NOTE | 2019-03-20 08:56 | EKG12_ITS ---
Test Reason : HIGH +K Blood Pressure : / mmHG Vent. Rate : 063 BPM Atrial Rate : 063 BPM P-R Int : 190 ms QRS Dur : 122 ms QT Int : 440 ms P-R-T Axes : 078 018 102 degrees QTc Int : 450 ms Normal sinus rhythm Inferior infarct , age undetermined Abnormal ECG Confirmed by EDVIN TINEO, ZAK ([id number]), video editor LINDSAY ABBASI ([id number]) on 03/22/2019 11:41:57 AM Referred By: Chema Haro Confirmed By:ZAK PARDO MD
[2019-03-20 09:01] LABS: Differential Comment SCANNED
[2019-03-20] MEDS: Dextrose 50%-Water 25 GM/50 ML DISP.SYRIN IV (09:04)
[2019-03-20] MEDS: Albuterol 2.5 MG/3 ML VIAL.NEB. INHALATION (09:06)
[2019-03-20] MEDS: Insulin Lispro 5 UNIT in Syringe 0 ML 3 UNIT IV (09:29)
[2019-03-20] MEDS: Calcium Gluconate 1 GM/10 ML Vial IV (09:30)
[2019-03-20] MEDS: Sodium Bicarbonate 8.4% 50 ML Syringe 50 MEQ IV (09:35)
[2019-03-20] MEDS: 0.9% Normal Saline 1,000 ML 75 ML IV ×2 (10:45→22:23)
[2019-03-20] MEDS: Pantoprazole Sodium 40 MG Tablet PO (11:43)
[2019-03-20] MEDS: Carvedilol 12.5 MG Tablet PO ×2 (11:43→20:45)
[2019-03-20] MEDS: TICAGRELOR 90 MG TABLET PO ×2 (11:43→20:45)
[2019-03-20] MEDS: diazePAM 5 MG Tablet PO ×2 (11:43→20:46)
[2019-03-20] MEDS: DULoxetine Hcl 60 MG Capsule PO (11:43)
[2019-03-20] MEDS: Pregabalin 75 MG Capsule 150 MG PO ×2 (11:46→20:45)
[2019-03-20 12:01] LABS: Bedside Glucose 256 mg/dL (70-110)
[2019-03-20] MEDS: Insulin Lispro 100 UNIT/ML INSULN.PEN SC ×3 (13:45→20:47)
[2019-03-20] MEDS: Heparin Injection (Vial) 5,000 UNIT/ML VIAL 5000 UNIT SC ×2 (13:45→20:45)
--- NOTE | 2019-03-20 14:18 | CASEMGMT ---
Physician said patient needs to go to a residential. Physician said patient and his agree. MEGHAN printed a list of facilities that are in network with patient's insurance. SW met with patient and his . Patient said he would prefer to stay at [facility] if he could. SW asked if this is half-way placement or short term. They said that it is short term. Patient's explained that she just learned she was giving patient medications he was not supposed to be taking. She said the physician thinks this is what caused his instability and what made him fall. Once his medications are adjusted he will improve. MEGHAN did leave a list of in network facilities with patient and his and told them SW will check back. Lauren HERNANDEZ MSW
--- NOTE | 2019-03-20 14:32 | PCM.HP.STD ---
Problem List (1) Debility Status: Chronic (2) Arteriosclerosis of coronary artery in patient with history of myocardial infarction Status: Chronic Comment: STEMI 03/05/2019:Triple vessel CAD of the LM, LAD, LCX RCA Successful PTCA/ESTEBAN of mid RCA with a 2.25 x 38 Promus Synergy, post dilated throughout with a 2.5 x 8 NC balloon; 99%-->0%, no dissection. Successful PTCA/ESTEBAN proximal RCA with a 2.5 x 16 Promus Synergy, post dilated with a 2.5 x 8 NC balloon; 75%-->0%, no dissection. Successful PTCA/ESTEBAN distal RCA with transition into PDA utilizing a 2.25 x 38 Promus Synergy, followed upstream with a 2.25 x 16 Promus Synergy, post dilated with a 2.5 x 8 NC in the 16mm stented area only; 75%-->0%, no dissection or perforation. (3) Stented coronary artery Status: Chronic Comment: Triple vessel CAD of the LM, LAD, LCX RCA Successful PTCA/ESTEBAN of mid RCA with a 2.25 x 38 Promus Synergy, post dilated throughout with a 2.5 x 8 NC balloon; 99%-->0%, no dissection. Successful PTCA/ESTEBAN proximal RCA with a 2.5 x 16 Promus Synergy, post dilated with a 2.5 x 8 NC balloon; 75%-->0%, no dissection. Successful PTCA/ESTEBAN distal RCA with transition into PDA utilizing a 2.25 x 38 Promus Synergy, followed upstream with a 2.25 x 16 Promus Synergy, post dilated with a 2.5 x 8 NC in the 16mm stented area only; 75%-->0%, no dissection or perforation. (4) STEMI (ST elevation myocardial infarction) Status: Resolved (5) Hypertension Status: Chronic Qualifiers: (6) Type 2 diabetes mellitus Status: Chronic Qualifiers: (7) Secondary hypertension Status: Chronic (8) Syncope and collapse Status: Resolved (9) CVA (cerebral vascular accident) Status: Chronic Qualifiers: (10) Syncope Status: Resolved Qualifiers: (11) Bradycardia Status: Chronic (12) Noncompliance with diabetes treatment Status: Chronic History of Present Illness Date of Admission: 03/20/19 Chief Complaint: Fall, weakness. The patient is a 58 year old M who presents emergency room due to a fall at his home today and generalized weakness. He complains of bilateral knee abrasions. He denies dizziness, lightheadedness or syncope. Denies hitting his head. He was recently discharged from TCU a few days ago. Reports he had been doing well at home however has difficulty getting around by himself. He recently had a stroke and STEMI requiring PCI, both in the last two months. Patient denies any significant residual deficits from his stroke, prior left-sided weakness. His other past medical history includes ischemic cardiomyopathy, hypertension, hyperlipidemia, type 2 diabetes mellitus, chronic kidney disease stage III, depression with anxiety. Patient currently agreeable to SNF at discharge however states he would like his to live with him wherever he goes. Past Medical History Past Medical History (Chronic Problems): Chronic Problems (Last Updated 03/06/19 @ 08:39 by Chelsea Lomax) Debility (Chronic) Arteriosclerosis of coronary artery in patient with history of myocardial infarction (Chronic) STEMI 03/05/2019:Triple vessel CAD of the LM, LAD, LCX RCA Successful PTCA/ESTEBAN of mid RCA with a 2.25 x 38 Promus Synergy, post dilated throughout with a 2.5 x 8 NC balloon; 99%-->0%, no dissection. Successful PTCA/ESTEBAN proximal RCA with a 2.5 x 16 Promus Synergy, post dilated with a 2.5 x 8 NC balloon; 75%-->0%, no dissection. Successful PTCA/ESTEBAN distal RCA with transition into PDA utilizing a 2.25 x 38 Promus Synergy, followed upstream with a 2.25 x 16 Promus Synergy, post dilated with a 2.5 x 8 NC in the 16mm stented area only; 75%-->0%, no dissection or perforation. Stented coronary artery (Chronic 03/06/19) Triple vessel CAD of the LM, LAD, LCX RCA Successful PTCA/ESTEBAN of mid RCA with a 2.25 x 38 Promus Synergy, post dilated throughout with a 2.5 x 8 NC balloon; 99%-->0%, no dissection. Successful PTCA/ESTEBAN proximal RCA with a 2.5 x 16 Promus Synergy, post dilated with a 2.5 x 8 NC balloon; 75%-->0%, no dissection. Successful PTCA/ESTEBAN distal RCA with transition into PDA utilizing a 2.25 x 38 Promus Synergy, followed upstream with a 2.25 x 16 Promus Synergy, post dilated with a 2.5 x 8 NC in the 16mm stented area only; 75%-->0%, no dissection or perforation. Hypertension (Chronic) Type 2 diabetes mellitus (Chronic) Secondary hypertension (Chronic) CVA (cerebral vascular accident) (Chronic) Bradycardia (Chronic) Noncompliance with diabetes treatment (Chronic) Medical History: Medical History (Last Updated 03/06/19 @ 08:39 by Chelsea Lomax) Arteriosclerosis of coronary artery in patient with history of myocardial infarction (Chronic) I25.10, I25.2 STEMI 03/05/2019:Triple vessel CAD of the LM, LAD, LCX RCA Successful PTCA/ESTEBAN of mid RCA with a 2.25 x 38 Promus Synergy, post dilated throughout with a 2.5 x 8 NC balloon; 99%-->0%, no dissection. Successful PTCA/ESTEBAN proximal RCA with a 2.5 x 16 Promus Synergy, post dilated with a 2.5 x 8 NC balloon; 75%-->0%, no dissection. Successful PTCA/ESTEBAN distal RCA with transition into PDA utilizing a 2.25 x 38 Promus Synergy, followed upstream with a 2.25 x 16 Promus Synergy, post dilated with a 2.5 x 8 NC in the 16mm stented area only; 75%-->0%, no dissection or perforation. STEMI (ST elevation myocardial infarction) (Acute) Onset Date: 03/05/19 I21.3 Type 2 diabetes mellitus (Chronic) E11.9 Secondary hypertension (Chronic) I15.9 Syncope and collapse (Acute) R55 CVA (cerebral vascular accident) (Chronic) I63.9 Syncope (Acute) R55 Bradycardia (Acute) R00.1 Noncompliance with diabetes treatment (Chronic) Z91.19 FLORY (acute kidney injury) N17.9 Anxiety F41.9 Back pain M54.9 Depression F32.9 Abdominal pain R10.9 Hematochezia K92.1 Intractable nausea and vomiting R11.2 Nausea R11.0 Nonketotic hyperglycinemia E72.51 Allergies nifedipine [From Adalat] Allergy (Verified 03/20/19 07:27) Unknown Home Medications: Ambulatory Orders Medication Instructions Recorded diazepam 5 mg tablet 5 mg PO BID 02/27/19 duloxetine 60 mg capsule,delayed 60 mg PO DAILY 02/27/19 release pregabalin 150 mg capsule 150 mg PO BID 02/27/19 Aspirin [Aspirin, Baby] 81 mg PO DAILY@0800 03/10/19 Atorvastatin Calcium [Lipitor] 80 mg PO QHS 03/10/19 Pantoprazole Sodium [Protonix] 40 mg PO DAILY 03/10/19 Carvedilol [Coreg (Beta Jeffrey)] 12.5 mg PO BID #60 tab 03/14/19 Furosemide [Lasix] 40 mg PO DAILY #30 tab 03/14/19 Losartan Potassium [Cozaar] 25 mg PO BID #60 tab 03/14/19 Menthol/Lanolin/Calamine/Znox 1 applic TOPICAL 0600,2200 tube 03/14/19 [Calmoseptine Ointment] Potassium Chloride [K-Dur] 40 meq PO DAILYCM #30 tab 03/14/19 Ticagrelor [Brilinta] 90 mg PO BID #60 tab 03/14/19 Insulin Glargine,Hum.rec.anlog 20 units SQ QHS 03/20/19 [Basaglar Kwikpen U-100] Insulin Lispro [Humalog KwikPen] See Protocol SQ TIDCM 03/20/19 Surgical History: Surgical History (Last Updated 03/06/19 @ 08:39 by Chelsea Lomax) Stented coronary artery (Chronic) Onset Date: 03/06/19 Z95.5 Triple vessel CAD of the LM, LAD, LCX RCA Successful PTCA/ESTEBAN of mid RCA with a 2.25 x 38 Promus Synergy, post dilated throughout with a 2.5 x 8 NC balloon; 99%-->0%, no dissection. Successful PTCA/ESTEBAN proximal RCA with a 2.5 x 16 Promus Synergy, post dilated with a 2.5 x 8 NC balloon; 75%-->0%, no dissection. Successful PTCA/ESTEBAN distal RCA with transition into PDA utilizing a 2.25 x 38 Promus Synergy, followed upstream with a 2.25 x 16 Promus Synergy, post dilated with a 2.5 x 8 NC in the 16mm stented area only; 75%-->0%, no dissection or perforation. History of lumbar fusion Z98.890 History of back surgery Z98.890 History of umbilical hernia repair Z98.890, Z87.19 Surgical History: - - Back Surgery 198906/29/95. He had a hernia repair May 07, 2008 Psychiatric History: Anxiety, Depression - severe Lives: Spouse/ Significant Other, - - recent DC from SNF Smoking Status: Former smoker Alcohol: None Drugs: None - *Family History Paternal Family History: Family History (Last Reviewed 02/27/19 @ 15:09 by Rupa Valentine) Father Heart disease Son Kidney disease History Items: Heart Disease, Hypertension, - - CAD; cerebral hemorrhage. Maternal Family History: Family History (Last Reviewed 02/27/19 @ 15:09 by Rupa Valentine) Father Heart disease Son Kidney disease History Items: - - suicide, depression Review of Systems Constitutional: Denies: Chills, Fever, Weight Change HEENT: Denies: Head Aches, Sinus Congestion, Sinus Drainage Cardiovascular: Denies: Chest Pain, Palpitations Respiratory: Denies: Cough, Shortness of breath at rest, Sputum production Gastrointestinal: Denies: Abdominal Pain, Nausea, Vomiting Genitourinary: Denies: Dysuria Musculoskeletal: Denies: Joint Pain, Joint Tenderness Skin: Denies: Rash, Wounds Neurological: Reports: Balance problems. Denies: Focal weakness, Numbness, Tingling Psychiatric: Reports: Anxiety, Depression Hematologic/ Lymphatic: Denies: Easy Bruising, Easy Bleeding VTE Information - Inpt Only VTE Present on Admission: No VTE Mechan Device Prophylaxis: None VTE Pharm Prophylaxis ordered?: Yes - Physical Exam Vitals/I&O's: Vital Signs Temp Pulse Resp BP Pulse Ox 97.6 F L 63 18 135/96 H 100 03/20/19 10:30 03/20/19 10:48 03/20/19 10:30 03/20/19 10:30 03/20/19 10:30 Oxygen Delivery Method Room Air Weight: 206 lb 2.115 oz Body Mass Index (BMI) 29.5 Finger Stick Blood Glucose 122 Intake and Output for Last 24 Hours 03/18/19 03/19/19 03/20/19 23:59 23:59 23:59 Intake Total 240.05 / 240.05 Output Total 675 / 675 Balance -434.95 / -434.95 General: Alert, Oriented x3, Cooperative HEENT: Atraumatic, PERRLA, EOMI, Normocephalic Neck: Supple, No JVD, Negative Carotid Bruits Lungs: Clear to auscultation, Normal air movement Cardiovascular: Regular rate, Regular Rhythm, Normal S1, Normal S2, No murmurs Abdomen: Bowel Sounds Present, Soft, Non Tender, Non-Distended Extremities: No clubbing, No cyanosis, No edema, Capillary Refill Less than 3 Seconds Skin: No rashes, No breakdown Musculoskeletal: No Tenderness to Palpation of Joints or Extremities Neurological: Cranial nerves II-XII grossly intact, Neuro grossly intact Psych/Mental Status: Normal Affect, Appropriate Laboratory Results 03/20/19 08:20: WBC 11.1 H, RBC 3.94 L, Hgb 11.8 L, Hct 34.8 L, MCV 88.3, MCH 29.9, MCHC 33.9, RDW Std Deviation 42.6, RDW Coeff of Jr 13.2, Plt Count 173, MPV 12.5 H, Immature Gran % (Auto) 1.300 H, Neut % (Auto) 86.5 H, Lymph % (Auto) 5.4 L, Blanco % (Auto) 5.0, Eos % (Auto) 1.4, Baso % (Auto) 0.4, Absolute Neuts (auto) 9.6 H, Absolute Lymphs (auto) 0.60 L, Nucleated RBC % 0, Differential Comment SCANNED 03/20/19 08:20: Sodium 135 L, Potassium 6.9 H*, Chloride 107, Carbon Dioxide 22.0, Anion Gap 6, BUN 103 H*, Creatinine 3.16 H, Estim Creat Clear Calc 25.67, Est GFR (MDRD) Af Amer 26 L, Est GFR (MDRD) Non-Af 21 L, BUN/Creatinine Ratio 32.6 H, Glucose 292 H, Calcium 9.1 03/20/19 11:49: POC Glucose 256 H Current Medications Acetaminophen (Tylenol) 650 mg PO Q6H PRN PRN PRN Reason: Pain Score 1-3/10 Aspirin (Aspirin, Baby) 81 mg PO DAILY@0800 [facility] Atorvastatin Calcium (Lipitor) 80 mg PO QHS [facility] Carvedilol (Coreg) 12.5 mg PO BID [facility] Last Admin: 03/20/19 11:43 Dose: 12.5 mg Documented by: Dextrose (D50w Syringe) 0 gm IV X1 PRN; Protocol PRN Reason: Hypoglycemia Diazepam (Valium) 5 mg PO BID [facility] Last Admin: 03/20/19 11:43 Dose: 5 mg Documented by: Duloxetine HCl (Cymbalta) 60 mg PO DAILY [facility] Last Admin: 03/20/19 11:43 Dose: 60 mg Documented by: Glucagon () 1 mg IM .X1 PRN PRN Reason: Hypoglycemia Heparin Sodium (Porcine) (Heparin Na) 5,000 unit SC Q8 [facility] Last Admin: 03/20/19 13:45 Dose: 5,000 unit Documented by: Sodium Chloride () 1,000 mls @ 75 mls/hr IV .[id number] [facility] Last Admin: 03/20/19 10:45 Dose: 75 mls/hr Documented by: Sodium Chloride () 250 mls @ 15 mls/hr IV .[id number] PRN PRN Reason: Saline Flush Insulin Glargine (Lantus (Bk)) 20 units SC QHS [facility] Insulin Human Lispro (Humalog Kwikpen ([facility])) 0 unit SC ACHS [facility]; Protocol Last Admin: 03/20/19 13:45 Dose: 6 u Documented by: Nitroglycerin (Nitrostat) 0.4 mg SUBLINGUAL Q5M PRN PRN Reason: CARDIAC/CHEST PAIN Ondansetron HCl (Zofran) 4 mg IV Q8H PRN PRN PRN Reason: NAUSEA/VOMITING Pantoprazole Sodium (Protonix) 40 mg PO DAILY [facility] Last Admin: 03/20/19 11:43 Dose: 40 mg Documented by: Pregabalin (Lyrica) 150 mg PO BID [facility] Last Admin: 03/20/19 11:46 Dose: 150 mg Documented by: Sodium Chloride () 10 - 40 ml IV UD PRN PRN Reason: SALINE FLUSH Ticagrelor (Brilinta) 90 mg PO BID [facility] Assessment/Plan All Active Problems (Last Updated 03/06/19 @ 08:39 by Chelsea Lomax) STEMI (ST elevation myocardial infarction) (Resolved 03/05/19) Syncope (Resolved) Syncope and collapse (Resolved) 1. Acute kidney injury on chronic kidney disease stage III with severe hyperkalemia-hold diuretic and ARB regimen. Patient does not know home dosing of diuretic and feel he may have been taking excess of home medications. IV fluids. Patient received albuterol, insulin in ER for hyperkalemia. Repeat potassium this afternoon. Trend BMP. If kidney function not improved tomorrow following hydration, consider nephrology consult. 2. Debility with fall resulting in bilateral knee abrasions- PT/OT. Possible SNF pending further evaluation. Cover abrasions with dry sterile dressing. 3. Recent acute/subacute right MAGDI infarct-aspirin, statin, Brilinta. 4. Recent STEMI/CAD s/p angioplasty with ESTEBAN to RCA/PDA/ischemic cardiomyopathy-most recent echo February 2019 demonstrated an EF of 15 to 20%. Follows with Dr. Dobbs. Continue aspirin, statin, carvedilol, Brilinta. 5. Hypertension-stable, continue carvedilol. Lasix and losartan on hold. 6. Hyperlipidemia-continue statin. 7. Type 2 diabetes mellitus with [id number]-Vezp-Mcqil ACHS. Continue insulin regimen. Continue Lyrica. 8. Depression/anxiety-continue diazepam, duloxetine regimen. DVT prophylaxis- heparin sc This patient was seen by ALBIN Beard under the supervision of Dr. Haro.
[2019-03-20 15:33] LABS: Anion Gap 6 (5-15); BUN 88 mg/dL (7-18); BUN/Creat Ratio 34.6 RATIO (10-20); Calcium,Total 9.3 mg/dL (8.5-10.1); Chloride 109 mmol/L (98-107); Creatinine, Serum 2.54 mg/dL (0.70-1.30); EST Glomerular Filtration Rate 28 mL/min (>60); Est Glom Filt Rate - Afr Amer 33 mL/min (>60); Estimated Creatinine Clearance 31.93 ml/min; Glucose 334 mg/dL (74-106); Potassium 5.2 mmol/L (3.5-5.1); Sodium Level 138 mmol/L (136-145)
[2019-03-20] MEDS: BACITRACIN 15 GM Tube 1 APPLIC TOPICAL ×2 (16:31→20:45)
[2019-03-20 17:10] LABS: Bedside Glucose 292 mg/dL (70-110)
[2019-03-20] MEDS: Atorvastatin Calcium 80 MG Tablet PO (20:45)
[2019-03-20 21:11] LABS: Bedside Glucose 229 mg/dL (70-110)
[2019-03-21 03:00] VITALS: BP 101/58; PULSE 78; RESP 16; TEMP 36.5; O2SAT 94
[2019-03-21 03:04] VITALS: PULSE 63
[2019-03-21 06:03] LABS: Anion Gap 6 (5-15); BUN 68 mg/dL (7-18); BUN/Creat Ratio 36.4 RATIO (10-20); Calcium,Total 8.6 mg/dL (8.5-10.1); Chloride 109 mmol/L (98-107); Creatinine, Serum 1.87 mg/dL (0.70-1.30); EST Glomerular Filtration Rate 39 mL/min (>60); Est Glom Filt Rate - Afr Amer 48 mL/min (>60); Estimated Creatinine Clearance 43.37 ml/min; Glucose 155 mg/dL (74-106); Magnesium 1.2 mg/dL (1.6-2.6); Potassium 4.3 mmol/L (3.5-5.1); Sodium Level 139 mmol/L (136-145)
[2019-03-21] MEDS: Heparin Injection (Vial) 5,000 UNIT/ML VIAL 5000 UNIT SC ×2 (06:32→14:57)
[2019-03-21] MEDS: Magnesium Oxide 400 MG Tablet PO (06:32)
[2019-03-21 06:51] LABS: Bedside Glucose 139 mg/dL (70-110)
[2019-03-21 07:06] VITALS: PULSE 74
[2019-03-21 09:00] VITALS: BP 128/73; PULSE 77; RESP 16; TEMP 36.6; O2SAT 99
[2019-03-21] MEDS: diazePAM 5 MG Tablet PO (09:19)
[2019-03-21] MEDS: Carvedilol 12.5 MG Tablet PO (09:19)
[2019-03-21] MEDS: Pregabalin 75 MG Capsule 150 MG PO (09:19)
[2019-03-21] MEDS: DULoxetine Hcl 60 MG Capsule PO (09:19)
[2019-03-21] MEDS: Aspirin 81 MG TAB.CHEW PO (09:19)
[2019-03-21] MEDS: Pantoprazole Sodium 40 MG Tablet PO (09:19)
[2019-03-21] MEDS: BACITRACIN 15 GM Tube 1 APPLIC TOPICAL (09:20)
[2019-03-21] MEDS: TICAGRELOR 90 MG TABLET PO (09:22)
--- NOTE | 2019-03-21 10:34 | CASEMGMT ---
READMISSION CHART REVIEW: Pt initially admitted 03/05-03/10/19 for STEMI and was discharged to TCU at that time. Pt was then discharged fro TCU on 03/17/19. Pt then back to ED via EMS on 03/20/19 for fall, general weakness. Pt admitted with weakness, hyperkalemia, renal failure. Per hospitalist, pt's has been managing meds and has been giving pt old as well as new scripts and feels that pt needs to go back to SNF at this time. CM to follow therapy notes and for any further discharge planning/needs. SStluz RN CM
[2019-03-21 11:25] LABS: Bedside Glucose 266 mg/dL (70-110)
[2019-03-21] MEDS: Insulin Lispro 100 UNIT/ML INSULN.PEN SC (12:06)
--- NOTE | 2019-03-21 12:38 | PCM.PROGNOTE ---
Subjective: Patient seen and examined. No acute events overnight. Patient denies current complaints. - Physical Exam Vitals/I&O's: Vital Signs Temp Pulse Resp BP Pulse Ox 97.9 F 77 16 128/73 H 99 03/21/19 09:00 03/21/19 09:00 03/21/19 09:00 03/21/19 09:00 03/21/19 09:00 Oxygen Delivery Method Room Air Weight: 206 lb 2.115 oz Body Mass Index (BMI) 29.5 Finger Stick Blood Glucose 122 Intake and Output for Last 24 Hours 03/19/19 03/20/19 03/21/19 23:59 23:59 23:59 Intake Total 1700.05 / 1920.05 1435.25 / 1435.25 Output Total 2175 / 2775 1775 / 1775 Balance -474.95 / -854.95 -339.75 / -339.75 General: Alert, Oriented x3, Cooperative HEENT: Atraumatic, PERRLA, EOMI, Normocephalic Neck: Supple, No JVD, Negative Carotid Bruits Lungs: Clear to auscultation, Normal air movement Cardiovascular: Regular rate, Regular Rhythm, Normal S1, No murmurs Abdomen: Bowel Sounds Present, Soft, Non Tender, Non-Distended Extremities: No clubbing, No cyanosis, No edema, Capillary Refill Less than 3 Seconds Skin: No rashes, No breakdown Musculoskeletal: No Tenderness to Palpation of Joints or Extremities Neurological: Cranial nerves II-XII grossly intact, Neuro grossly intact Psych/Mental Status: Normal Affect, Appropriate Laboratory Results 03/20/19 15:05: Sodium 138, Potassium 5.2 H, Chloride 109 H, Carbon Dioxide 23.0, Anion Gap 6, BUN 88 H, Creatinine 2.54 H, Estim Creat Clear Calc 31.93, Est GFR (MDRD) Af Amer 33 L, Est GFR (MDRD) Non-Af 28 L, BUN/Creatinine Ratio 34.6 H, Glucose 334 H, Calcium 9.3 03/20/19 16:30: POC Glucose 292 H 03/20/19 20:41: POC Glucose 229 H 03/21/19 04:45: Sodium 139, Potassium 4.3, Chloride 109 H, Carbon Dioxide 24.0, Anion Gap 6, BUN 68 H, Creatinine 1.87 H, Estim Creat Clear Calc 43.37, Est GFR (MDRD) Af Amer 48 L, Est GFR (MDRD) Non-Af 39 L, BUN/Creatinine Ratio 36.4 H, Glucose 155 H, Calcium 8.6, Magnesium 1.2 L 03/21/19 06:41: POC Glucose 139 H 03/21/19 11:16: POC Glucose 266 H Current Medications Acetaminophen (Tylenol) 650 mg PO Q6H PRN PRN PRN Reason: Pain Score 1-3/10 Aspirin (Aspirin, Baby) 81 mg PO DAILY@0800 [facility] Last Admin: 03/21/19 09:19 Dose: 81 mg Documented by: Atorvastatin Calcium (Lipitor) 80 mg PO QHS [facility] Last Admin: 03/20/19 20:45 Dose: 80 mg Documented by: Bacitracin (Bacitracin Ointment) 1 applic TOPICAL BID [facility]; Protocol Last Admin: 03/21/19 09:20 Dose: 1 applicatio Documented by: Carvedilol (Coreg) 12.5 mg PO BID [facility] Last Admin: 03/21/19 09:19 Dose: 12.5 mg Documented by: Dextrose (D50w Syringe) 0 gm IV X1 PRN; Protocol PRN Reason: Hypoglycemia Diazepam (Valium) 5 mg PO BID [facility] Last Admin: 03/21/19 09:19 Dose: 5 mg Documented by: Duloxetine HCl (Cymbalta) 60 mg PO DAILY [facility] Last Admin: 03/21/19 09:19 Dose: 60 mg Documented by: Glucagon () 1 mg IM .X1 PRN PRN Reason: Hypoglycemia Heparin Sodium (Porcine) (Heparin Na) 5,000 unit SC Q8 [facility] Last Admin: 03/21/19 06:32 Dose: 5,000 unit Documented by: Sodium Chloride () 1,000 mls @ 75 mls/hr IV .[id number] [facility] Last Infusion: 03/21/19 12:06 Dose: 75 mls/hr Documented by: Sodium Chloride () 250 mls @ 15 mls/hr IV .[id number] PRN PRN Reason: Saline Flush Insulin Glargine (Lantus (Bkc)) 20 units SC QHS [facility] Last Admin: 03/20/19 20:46 Dose: 20 units Documented by: Insulin Human Lispro (Humalog Kwikpen (Bkc)) 0 unit SC ACHS [facility]; Protocol Last Admin: 03/21/19 12:06 Dose: 9 u Documented by: Magnesium Oxide (Mag-Ox 400) 400 mg PO BID [facility] Last Admin: 03/21/19 06:32 Dose: 400 mg Documented by: Nitroglycerin (Nitrostat) 0.4 mg SUBLINGUAL Q5M PRN PRN Reason: CARDIAC/CHEST PAIN Ondansetron HCl (Zofran) 4 mg IV Q8H PRN PRN PRN Reason: NAUSEA/VOMITING Pantoprazole Sodium (Protonix) 40 mg PO DAILY [facility] Last Admin: 03/21/19 09:19 Dose: 40 mg Documented by: Pregabalin (Lyrica) 150 mg PO BID [facility] Last Admin: 03/21/19 09:19 Dose: 150 mg Documented by: Sodium Chloride () 10 - 40 ml IV UD PRN PRN Reason: SALINE FLUSH Ticagrelor (Brilinta) 90 mg PO BID [facility] Last Admin: 03/21/19 09:22 Dose: 90 mg Documented by: Medical Necessity - Tobacco Use Smoking Status: Former smoker Assessment/Plan All Active Problems (Last Updated 03/06/19 @ 08:39 by Chelsea Lomax) STEMI (ST elevation myocardial infarction) (Resolved 03/05/19) Syncope (Resolved) Syncope and collapse (Resolved) 1. Acute kidney injury on chronic kidney disease stage III with severe hyperkalemia-diuretic and ARB regimen on hold. Patient does not know home dosing of diuretic and feel he may have been taking excess of home medications. Creatinine improving with IV fluids. Hyperkalemia resolved. Trend BMP. 2. Debility with fall resulting in bilateral knee abrasions- PT/OT. Possible SNF pending further evaluation. Cover abrasions with dry sterile dressing. 3. Recent acute/subacute right MAGDI infarct-aspirin, statin, Brilinta. 4. Recent STEMI/CAD s/p angioplasty with ESTEBAN to RCA/PDA/ischemic cardiomyopathy-most recent echo February 2019 demonstrated an EF of 15 to 20%. Follows with Dr. Dobbs. Continue aspirin, statin, carvedilol, Brilinta. 5. Hypertension-stable, continue carvedilol. Lasix and losartan on hold. 6. Hyperlipidemia-continue statin. 7. Type 2 diabetes mellitus with [id number] ACHS. Continue insulin regimen. Continue Lyrica. 8. Depression/anxiety-continue diazepam, duloxetine regimen. DVT prophylaxis- heparin sc Discharge planning: Plan for SNF pending pre-cert. This patient was seen by ALBIN Beard under the supervision of Dr. Haro.
[2019-03-21] MEDS: 0.9% Normal Saline 1,000 ML 75 ML IV (14:57)
[2019-03-21 15:00] VITALS: BP 101/50; PULSE 68; PULSE 70; RESP 18; TEMP 36.8; O2SAT 98
--- NOTE | 2019-03-21 15:02 | CASEMGMT ---
Addendum entered by Lauren Pa 03/21/19 15:12: MEGHAN called Rupa with [facility] and left a message with referral for home health long term, PT, OT, and SW. Lauren HUGHES Original Note: Reviewed PT/OT notes and patient is walking 200 plus feet contact guard minimal assist of 1. SW spoke with patient and his and they both agree patient is fine to come home. Patient said he had home health set up already. SW told them SW can add nursing to their home health order. They said that would be very helpful. SW notified physician. Lauren HUGHES
--- NOTE | 2019-03-21 15:44 | DCINST_ITS ---
You will use the following diet at home:: Cardiac Discharge Activity: Return to Normal Activity Call your doctor if you observe: Shortness of breath, Dizziness, Fainting spells, Chest pain Allergies/Adverse Reactions: Allergies nifedipine [From Adalat] Allergy (Verified 03/20/19 07:27) Unknown Medications to take at Discharge diazepam 5 mg tablet 5 mg PO BID 02/27/19 duloxetine 60 mg capsule,delayed release 60 mg PO DAILY 02/27/19 pregabalin 150 mg capsule 150 mg PO BID 02/27/19 Aspirin [Aspirin, Baby] 81 mg PO DAILY@0800 03/10/19 Atorvastatin Calcium [Lipitor] 80 mg PO QHS 03/10/19 Pantoprazole Sodium [Protonix] 40 mg PO DAILY 03/10/19 Carvedilol [Coreg (Beta Jeffrey)] 12.5 mg PO BID #60 tab 03/14/19 Furosemide [Lasix] 40 mg PO DAILY #30 tab 03/14/19 Losartan Potassium [Cozaar] 25 mg PO BID #60 tab 03/14/19 Menthol/Lanolin/Calamine/Znox [Calmoseptine Ointment] 1 applic TOPICAL 0600,2200 tube 03/14/19 Ticagrelor [Brilinta] 90 mg PO BID #60 tab 03/14/19 Insulin Glargine,Hum.rec.anlog [Basaglar Kwikpen U-100] 20 units SQ QHS 03/20/19 Insulin Lispro [Humalog KwikPen] See Protocol SQ TIDCM 03/20/19 Primary Care Physician: Chema Mckeon DO [Primary Care Provider] - Please follow up with your Primary Care Physician in: 1 Week Test Results: Test results from this visit will be discussed in further detail at your follow- up appointment, if applicable. Please Follow Up With: Julian Dobbs MD When: As scheduled Proposed Discharge Date: 03/21/19
--- NOTE | 2019-03-21 15:49 | DS.PCM_ITS ---
Discharge Date and Diagnosis Date of Admission: 03/20/19 Date of Discharge: 03/21/19 - Primary Discharge Diagnosis 1. Acute kidney injury on chronic kidney disease stage III with severe hyperkalemia 2. Debility with fall resulting in bilateral knee abrasions 3. Recent acute/subacute right MAGDI infarct 4. Recent STEMI/CAD s/p angioplasty with ESTEBAN to RCA/PDA/ischemic cardiomyopathy 5. Hypertension 6. Hyperlipidemia 7. Type 2 diabetes mellitus with neuropathy 8. Depression/anxiety - Secondary Discharge Diagnosis Chronic Problems (Last Updated 03/06/19 @ 08:39 by Chelsea Lomax) Debility (Chronic) Arteriosclerosis of coronary artery in patient with history of myocardial infarction (Chronic) STEMI 03/05/2019:Triple vessel CAD of the LM, LAD, LCX RCA Successful PTCA/ESTEBAN of mid RCA with a 2.25 x 38 Promus Synergy, post dilated throughout with a 2.5 x 8 NC balloon; 99%-->0%, no dissection. Successful PTCA/ESTEBAN proximal RCA with a 2.5 x 16 Promus Synergy, post dilated with a 2.5 x 8 NC balloon; 75%-->0%, no dissection. Successful PTCA/ESTEBAN distal RCA with transition into PDA utilizing a 2.25 x 38 Promus Synergy, followed upstream with a 2.25 x 16 Promus Synergy, post dilated with a 2.5 x 8 NC in the 16mm stented area only; 75%-->0%, no dis section or perforation. Stented coronary artery (Chronic 03/06/19) Triple vessel CAD of the LM, LAD, LCX RCA Successful PTCA/ESTEBAN of mid RCA with a 2.25 x 38 Promus Synergy, post dilated throughout with a 2.5 x 8 NC balloon; 99%-->0%, no dissection. Successful PTCA/ESTEBAN proximal RCA with a 2.5 x 16 Promus Synergy, post dilated with a 2.5 x 8 NC balloon; 75%-->0%, no dissection. Successful PTCA/ESTEBAN distal RCA with transition into PDA utilizing a 2.25 x 38 Promus Synergy, followed upstream with a 2.25 x 16 Promus Synergy, post dilated with a 2.5 x 8 NC in the 16mm stented area only; 75%-->0%, no dissection or perforation. Hypertension (Chronic) Type 2 diabetes mellitus (Chronic) Secondary hypertension (Chronic) CVA (cerebral vascular accident) (Chronic) Bradycardia (Chronic) Noncompliance with diabetes treatment (Chronic) Hospital Course and Treatment Operations: None Procedures: None Summary of Care Provided: The patient is a 58 year old M admitted 03/20/19 due to fall, weakness. 1. Acute kidney injury on chronic kidney disease stage III with severe hyperkalemia-diuretic and ARB regimen held during admission. Patient does not know home dosing of diuretic and feel he may have been taking excess of home medications. Creatinine improving with IV fluids. Hyperkalemia resolved. Repeat BMP by PCP in 1 week. Home Lasix and losartan regimen resumed at discharge. 2. Debility with fall resulting in bilateral knee abrasions-patient did well with therapy during admission and patient and agreeable to return home at discharge. 3. Recent acute/subacute right MAGDI infarct-aspirin, statin, Brilinta. 4. Recent STEMI/CAD s/p angioplasty with ESTEBAN to RCA/PDA/ischemic cardiomyopathy- most recent echo February 2019 demonstrated an EF of 15 to 20%. Follows with Dr. Dobbs. Continue aspirin, statin, carvedilol, Brilinta. 5. Hypertension-stable, continue carvedilol, Lasix, losartan regimen. 6. Hyperlipidemia-continue statin. 7. Type 2 diabetes mellitus with neuropathy-continue home insulin regimen. Continue Lyrica. 8. Depression/anxiety-continue diazepam, duloxetine regimen. General: Alert, Oriented x3, Cooperative HEENT: Atraumatic, PERRLA, EOMI, Normocephalic Neck: Supple, No JVD, Negative Carotid Bruits Lungs: Clear to auscultation, Normal air movement Cardiovascular: Regular rate, Regular Rhythm, Normal S1, No murmurs Abdomen: Bowel Sounds Present, Soft, Non Tender, Non-Distended Extremities: No clubbing, No cyanosis, No edema, Capillary Refill Less than 3 Seconds Skin: No rashes, No breakdown Musculoskeletal: No Tenderness to Palpation of Joints or Extremities Neurological: Cranial nerves II-XII grossly intact, Neuro grossly intact Psych/Mental Status: Normal Affect, Appropriate Patient seen and examined prior to discharge. Physical assessment as noted above. Patient is stable for discharge with follow up recommendations as noted above. This patient was seen by ALBIN Beard under the supervision of Dr. Tereletsky. - Physical Exam Vitals/I&O's: Vital Signs Temp Pulse Resp BP Pulse Ox 98.2 F 70 18 101/50 L 98 03/21/19 15:00 03/21/19 15:00 03/21/19 15:00 03/21/19 15:00 03/21/19 15:00 Oxygen Delivery Method Room Air Weight: 206 lb 2.115 oz Body Mass Index (BMI) 29.5 Finger Stick Blood Glucose 122 Intake and Output for Last 24 Hours 03/19/19 03/20/19 03/21/19 23:59 23:59 23:59 Intake Total 1700.05 / 1920.05 1564.00 / 1564.00 Output Total 2175 / 2775 1775 / 1775 Balance -474.95 / -854.95 -211.00 / -211.00 Laboratory Results 03/20/19 16:30: POC Glucose 292 H 03/20/19 20:41: POC Glucose 229 H 03/21/19 04:45: Sodium 139, Potassium 4.3, Chloride 109 H, Carbon Dioxide 24.0, Anion Gap 6, BUN 68 H, Creatinine 1.87 H, Estim Creat Clear Calc 43.37, Est GFR (MDRD) Af Amer 48 L, Est GFR (MDRD) Non-Af 39 L, BUN/Creatinine Ratio 36.4 H, Glucose 155 H, Calcium 8.6, Magnesium 1.2 L 03/21/19 06:41: POC Glucose 139 H 03/21/19 11:16: POC Glucose 266 H Current Medications Acetaminophen (Tylenol) 650 mg PO Q6H PRN PRN PRN Reason: Pain Score 1-3/10 Aspirin (Aspirin, Baby) 81 mg PO DAILY@0800 [facility] Last Admin: 03/21/19 09:19 Dose: 81 mg Documented by: Atorvastatin Calcium (Lipitor) 80 mg PO QHS [facility] Last Admin: 03/20/19 20:45 Dose: 80 mg Documented by: Bacitracin (Bacitracin Ointment) 1 applic TOPICAL BID [facility]; Protocol Last Admin: 03/21/19 09:20 Dose: 1 applicatio Documented by: Carvedilol (Coreg) 12.5 mg PO BID [facility] Last Admin: 03/21/19 09:19 Dose: 12.5 mg Documented by: Dextrose (D50w Syringe) 0 gm IV X1 PRN; Protocol PRN Reason: Hypoglycemia Diazepam (Valium) 5 mg PO BID [facility] Last Admin: 03/21/19 09:19 Dose: 5 mg Documented by: Duloxetine HCl (Cymbalta) 60 mg PO DAILY [facility] Last Admin: 03/21/19 09:19 Dose: 60 mg Documented by: Glucagon () 1 mg IM .X1 PRN PRN Reason: Hypoglycemia Heparin Sodium (Porcine) (Heparin Na) 5,000 unit SC Q8 [facility] Last Admin: 03/21/19 14:57 Dose: 5,000 unit Documented by: Sodium Chloride () 1,000 mls @ 75 mls/hr IV .[id number] [facility] Last Admin: 03/21/19 14:57 Dose: 75 mls/hr Documented by: Sodium Chloride () 250 mls @ 15 mls/hr IV .[id number] PRN PRN Reason: Saline Flush Insulin Glargine (Lantus ([facility])) 20 units SC QHS [facility] Last Admin: 03/20/19 20:46 Dose: 20 units Documented by: Insulin Human Lispro (Humalog Kwikpen ([facility])) 0 unit SC ACHS [facility]; Protocol Last Admin: 03/21/19 12:06 Dose: 9 u Documented by: Magnesium Oxide (Mag-Ox 400) 400 mg PO BID [facility] Last Admin: 03/21/19 06:32 Dose: 400 mg Documented by: Nitroglycerin (Nitrostat) 0.4 mg SUBLINGUAL Q5M PRN PRN Reason: CARDIAC/CHEST PAIN Ondansetron HCl (Zofran) 4 mg IV Q8H PRN PRN PRN Reason: NAUSEA/VOMITING Pantoprazole Sodium (Protonix) 40 mg PO DAILY [facility] Last Admin: 03/21/19 09:19 Dose: 40 mg Documented by: Pregabalin (Lyrica) 150 mg PO BID [facility] Last Admin: 03/21/19 09:19 Dose: 150 mg Documented by: Sodium Chloride () 10 - 40 ml IV UD PRN PRN Reason: SALINE FLUSH Ticagrelor (Brilinta) 90 mg PO BID [facility] Last Admin: 03/21/19 09:22 Dose: 90 mg Documented by: Discharge Diet: Low fat/ Low Cholesterol Discharge Activity: Return to Normal Activity Call your doctor if you observe: Shortness of breath, Dizziness, Fainting spells, Chest pain Home Medications: Medications to take at Discharge diazepam 5 mg tablet 5 mg PO BID 02/27/19 duloxetine 60 mg capsule,delayed release 60 mg PO DAILY 02/27/19 pregabalin 150 mg capsule 150 mg PO BID 02/27/19 Aspirin [Aspirin, Baby] 81 mg PO DAILY@0800 03/10/19 Atorvastatin Calcium [Lipitor] 80 mg PO QHS 03/10/19 Pantoprazole Sodium [Protonix] 40 mg PO DAILY 03/10/19 Carvedilol [Coreg (Beta Jeffrey)] 12.5 mg PO BID #60 tab 03/14/19 Furosemide [Lasix] 40 mg PO DAILY #30 tab 03/14/19 Losartan Potassium [Cozaar] 25 mg PO BID #60 tab 03/14/19 Menthol/Lanolin/Calamine/Znox [Calmoseptine Ointment] 1 applic TOPICAL 0600,2200 tube 03/14/19 Ticagrelor [Brilinta] 90 mg PO BID #60 tab 03/14/19 Insulin Glargine,Hum.rec.anlog [Basaglar Kwikpen U-100] 20 units SQ QHS 03/20/19 Insulin Lispro [Humalog KwikPen] See Protocol SQ TIDCM 03/20/19 Primary Care Physician: Chema Mckeon DO [Primary Care Provider] - Please follow up with your Primary Care Physician in: 1 Week Please Follow Up With: Julian Dobbs MD When: As scheduled Disposition: Home Minutes spent on discharge:: 35 Patient Condition:: Stable Medical Necessity - Tobacco Use Smoking Status: Former smoker Meaningful Use Info Meaningful Use Diagnoses (Choose all that apply): None applicable
--- NOTE | 2019-03-22 16:08 | CASEMGMT ---
Case Management DC F/u Call: DC Date: 03/21/19 DC Diagnosis: 1. Acute kidney injury on chronic kidney disease stage III with severe hyperkalemia 2. Debility with fall resulting in bilateral knee abrasions 3. Recent acute/subacute right MAGDI infarct 4. Recent STEMI/CAD s/p angioplasty with ESTEBAN to RCA/PDA/ischemic cardiomyopathy 5. Hypertension 6. Hyperlipidemia 7. Type 2 diabetes mellitus with neuropathy 8. Depression/anxiety DC Disposition: Home with [facility] PT/OT/SN, MEGHAN Mccullough/Strata: 02/12 Called patient listed number in demographics, answered, this entry writer introduced self and role. States that he is doing alright. Confirmed picked up medications and [facility] has called and will be out tomorrow. States that he bough a WC. Denies any issues, concerns or questions with [facility], medications, or f/u. Has an appointment with PCP Dr Mckeon 03/29/19 at 1130. Thanked patient for choosing care at [facility] and ended conversation. Jose Alberto Keene RNCM
== END 2019-03-21 16:50 | disposition home health service (06) | DRG 682 ==
LOC: ED 09:22 → PCU 09:51
PROVIDERS: Admitting Provider Internal Medicine; Emergency Provider Emergency Medicine; Family Provider Family Medicine; PCP Family Medicine; Referring Provider Internal Medicine; Visit Provider Internal Medicine
DX: N17.9 Acute kidney failure, unspecified (principal); I21.3 ST elevation (STEMI) myocardial infarction of unspecified site; S80.212A Abrasion, left knee, initial encounter; S80.211A Abrasion, right knee, initial encounter; W18.30XA Fall on same level, unspecified, initial encounter; Y92.009 Unspecified place in unspecified non-institutional (private) residence as the place of occurrence of the external cause; E87.5 Hyperkalemia; I25.10 Atherosclerotic heart disease of native coronary artery without angina pectoris; N18.3 Chronic kidney disease, stage 3 (moderate); E78.5 Hyperlipidemia, unspecified; E11.40 Type 2 diabetes mellitus with diabetic neuropathy, unspecified; I12.9 Hypertensive chronic kidney disease with stage 1 through stage 4 chronic kidney disease, or unspecified chronic kidney disease; E11.22 Type 2 diabetes mellitus with diabetic chronic kidney disease; Z87.891 Personal history of nicotine dependence; I25.5 Ischemic cardiomyopathy; Z95.5 Presence of coronary angioplasty implant and graft; F32.9 Major depressive disorder, single episode, unspecified; Z79.4 Long term (current) use of insulin; F41.9 Anxiety disorder, unspecified; Z86.73 Personal history of transient ischemic attack (TIA), and cerebral infarction without residual deficits; R53.81 Other malaise; Z79.82 Long term (current) use of aspirin
CPT/HCPCS: 36415; 80048; 82962; 83735; 85025; 93005; 94640; 97162; 97166; 99285; 99406; J7030; A4216; J0610

== ENCOUNTER → 2019-03-27 17:54 | Outpatient (CLI) | payer OTHER, MEDICARE, MEDICAID, SELFPAY ==
[2019-03-06 08:28] VITALS: BMI 29.0
[2019-03-20 10:30] VITALS: BMI 29.5
[2019-03-27 18:17] LABS: Anion Gap 9 (5-15); BUN 45 mg/dL (7-18); BUN/Creat Ratio 20.2 RATIO (10-20); Calcium,Total 8.8 mg/dL (8.5-10.1); Chloride 102 mmol/L (98-107); Creatinine, Serum 2.23 mg/dL (0.70-1.30); EST Glomerular Filtration Rate 32 mL/min (>60); Est Glom Filt Rate - Afr Amer 39 mL/min (>60); Glucose 238 mg/dL (74-106); Potassium 4.1 mmol/L (3.5-5.1); Sodium Level 142 mmol/L (136-145)
== END ==
PROVIDERS: Family Provider Family Medicine; PCP Family Medicine; Referring Provider Family Medicine; Visit Provider Family Medicine
DX: E11.22 Type 2 diabetes mellitus with diabetic chronic kidney disease (principal); N18.9 Chronic kidney disease, unspecified
CPT/HCPCS: 80048

== ENCOUNTER 2019-04-18 14:13 | Outpatient (RCR) | payer OTHER, MEDICARE, SELFPAY ==
[2019-03-06 08:28] VITALS: BMI 29.0
[2019-04-03 10:52] VITALS: BMI 29.4
[2019-04-18 15:25] LABS: Anion Gap 3 (5-15); BUN 31 mg/dL (7-18); Calcium,Total 9.3 mg/dL (8.5-10.1); Chloride 104 mmol/L (98-107); Creatinine, Serum 1.55 mg/dL (0.70-1.30); EST Glomerular Filtration Rate 49 mL/min (>60); Est Glom Filt Rate - Afr Amer 59 mL/min (>60); Glucose 269 mg/dL (74-106); Potassium 3.9 mmol/L (3.5-5.1); Sodium Level 138 mmol/L (136-145)
== END 2019-04-18 18:00 | disposition home or self-care (01) ==
LOC: HHLAB 14:13
PROVIDERS: Family Provider Family Medicine; PCP Family Medicine; Referring Provider Physician Assistant Medical; Visit Provider Physician Assistant Medical
DX: I25.10 Atherosclerotic heart disease of native coronary artery without angina pectoris (principal); I25.2 Old myocardial infarction; I42.9 Cardiomyopathy, unspecified; I10 Essential (primary) hypertension; E78.5 Hyperlipidemia, unspecified
CPT/HCPCS: 80048

== ENCOUNTER → 2019-05-22 13:33 | Outpatient (CLI) | payer OTHER, MEDICARE, MEDICAID, SELFPAY ==
[2018-05-30 10:07] VITALS: BMI 30.7
[2019-03-06 08:28] VITALS: BMI 29.0
[2019-05-08 13:37] VITALS: BMI 29.9
[2019-05-22 17:22] LABS: Anion Gap 7 (5-15); BUN 60 mg/dL (7-18); BUN/Creat Ratio 24.8 RATIO (10-20); Calcium,Total 9.4 mg/dL (8.5-10.1); Chloride 93 mmol/L (98-107); Creatinine, Serum 2.42 mg/dL (0.70-1.30); EST Glomerular Filtration Rate 29 mL/min (>60); Est Glom Filt Rate - Afr Amer 35 mL/min (>60); Glucose 539 mg/dL (74-106); Potassium 4.6 mmol/L (3.5-5.1); Sodium Level 129 mmol/L (136-145)
== END ==
PROVIDERS: Family Provider Family Medicine; PCP Family Medicine; Visit Provider Family Medicine
DX: E11.21 Type 2 diabetes mellitus with diabetic nephropathy (principal); I12.9 Hypertensive chronic kidney disease with stage 1 through stage 4 chronic kidney disease, or unspecified chronic kidney disease; E11.22 Type 2 diabetes mellitus with diabetic chronic kidney disease; N18.3 Chronic kidney disease, stage 3 (moderate)
CPT/HCPCS: 36415; 80048

== ENCOUNTER → 2019-05-29 13:54 | Outpatient (CLI) | payer OTHER, MEDICARE, MEDICAID, SELFPAY ==
[2019-03-06 08:28] VITALS: BMI 29.0
[2019-05-08 13:37] VITALS: BMI 29.9
== END ==
PROVIDERS: PCP Family Medicine; Referring Provider Physician Assistant Medical; Visit Provider Physician Assistant Medical
DX: I25.5 Ischemic cardiomyopathy (principal); I25.10 Atherosclerotic heart disease of native coronary artery without angina pectoris; I25.2 Old myocardial infarction
CPT/HCPCS: 93308; Q9957; A4216; C8924

== ENCOUNTER → 2019-06-12 11:52 | Outpatient (CLI) | payer OTHER, MEDICARE, SELFPAY ==
[2019-03-06 08:28] VITALS: BMI 29.0
[2019-06-12 16:03] LABS: AST(SGOT) 12 U/L (15-37); Alanine Aminotransfer ALT/SGPT 25 U/L (16-61); Albumin, Serum 3.8 g/dL (3.2-5.0); Alkaline Phosphatase 123 U/L (45-117); Bilirubin, Direct 0.23 mg/dL (0.00-0.30); Cholesterol 122 mg/dL (200); Globulin 3.8 g/dL (2.2-4.2); High Density Lipoprotein 39 mg/dL; Protein, Total 7.6 g/dL (6.4-8.2); Triglycerides 148 mg/dL; Very Low Density Lipoprotein 30 mg/dL (5-40)
== END ==
PROVIDERS: PCP Family Medicine; Visit Provider Internal Medicine Cardiovascular Disease
DX: E78.00 Pure hypercholesterolemia, unspecified (principal)
CPT/HCPCS: 36415; 80061; 80076

== ENCOUNTER 2019-07-03 11:16 | Emergency (ER) | payer OTHER, MEDICARE, MEDICAID, SELFPAY ==
[2019-03-06 08:28] VITALS: BMI 29.0
[2019-07-03 11:17] VITALS: BP 167/89; PULSE 65; RESP 18; TEMP 36.7; O2SAT 99; BMI 29.5
--- NOTE | 2019-07-03 11:42 | ED.VISSUMM ---
- ER Visit Summary Date of Service: 07/03/19 Chief Complaint: Abdominal pain, nausea, vomiting History of Present Illness: The patient is a 58 M who presents with abdominal pain, nausea, and vomiting that began today. Patient states he had 2 episodes of vomiting this morning. Patient states it was stomach contents. Patient denies any hematemesis or coffee-ground emesis. Patient also states she has been having diarrhea for the past 2 days. Patient states it is watery. Patient admits to some mild diffuse abdominal pain. Patient states his abdominal pain is worse when he vomits. Patient describes it as a burning sensation. Patient denies any dysuria or hematuria. Patient states he has a history of coronary artery disease and is concerned that this may be from his coronary artery disease. Physical Examination: Vital signs are stable. Patient is afebrile. Patient is in no acute distress. Oral mucosa is pink and moist. Neck is supple. Trachea is midline. There is no JVD noted. Heart was regular rate and rhythm. Lungs are clear and equal bilaterally. Abdomen is soft. Bowel sounds are normal. There is mild diffuse tenderness. There is no rebound or guarding noted. Skin is warm dry. Cranial nerves II through XII are intact. There are no focal motor or sensory deficits noted. Extremities are intact. There is no calf tenderness or edema. Test Results: EMS EKG showed a normal sinus rhythm with a rate of 76. There are no acute ST or T wave changes. CBC and comprehensive metabolic profile were obtained. BUN was 49 and creatinine is 2.23. This is consistent with prior results. Urinalysis does not show any evidence of urinary tract infection. Emergency Department Course and Treatment: Patient had no further pain here in the emergency department. Patient was given IV fluids. Patient was given Zofran. Patient was feeling better on reevaluation. Patient was instructed to start with a liquid diet and advance to a bland diet and then to regular diet as he feels better. Patient understood and was agreeable with the plan. All questions were answered. Disposition: Discharge home Impression: Nausea, vomiting, and diarrhea This note was generated with [employer] dictation software. It may contain incorrect words, spelling, and punctuation that were not noted in review of the chart prior to signing ED Disposition - Plan for ED Patient: Disposition: Home or Assisted Living Diagnosis: Nausea and vomiting Instructions: VOMITING AND DIARRHEA, Nonspecific (Adult) Referrals: Chema Mckeon DO [Primary Care Provider] - 5-7 Days
[2019-07-03] MEDS: 0.9% Normal Saline 1,000 ML 1000 ML IV (11:55)
[2019-07-03] MEDS: Ondansetron 4 MG/2 ML Vial IV (12:12)
[2019-07-03 12:22] LABS: White Blood Cells 0 SEEN /hpf (0-5)
[2019-07-03 12:23] LABS: Color, Urine Yellow (Yellow); Glucose, Dipstick 100 mg/dl (Normal); Ketone-Dipstick 5 mg/dl (Negative); Leukocyte Esterase-Dipstick Negative /ul (Negative); Nitrite-Dipstick Negative (Negative); Occult Blood-Urine 25 /ul (Negative); Protein-Dipstick 100 mg/dl (Negative); Urine Bilirubin Dipstick Negative (Negative); Urine Clarity Sl. Cloudy (Clear); Urine Urobilinogen Normal (Normal)
[2019-07-03 12:31] LABS: Absolute Lymphocyte Count 1.08 X10^3/uL (0.83-4.51); Absolute Neutrophil Count 7.9 X10^3/uL (2.0-7.7); Basophil# 0.05 X10^3/uL; Basophil% 0.5 % (0-1); Eosinophil# 0.11 X10^3/uL; Eosinophils% 1.1 % (0-5); Lymphocyte # 1.08 X10^3/ul (4.0); Lymphocyte % 11.3 % (19-41); Mean Corp Hgb Conc 33.3 g/dL (32-36); Mean Corpuscular Hgb 28.5 pg (27.0-32.0); Mean Corpuscular Volume 85.4 fL (80-94); Mean Platelet Vol. 12.7 fl (6.2-12.0); Monocyte# 0.44 X10^3/uL; Monocyte% 4.6 % (0-10); NRBC Flagged by Analyzer 0 % (0-5); Neutrophil # 7.86 X10^3/uL (2.7-7.7); Neutrophil % 81.9 % (47-70); Platelet Count 131 K/mm3 (150-450); RBC Distribution Width CV 13.7 % (11.6-14.6); RBC Distribution Width SD 42.5 fl (35.1-43.9); Red Blood Count 4.92 M/mm3 (4.6-6.2); White Blood Count 9.6 K/mm3 (4.4-11.0)
[2019-07-03 12:33] LABS: ALB/GLOB Ratio 1.2 RATIO (0.9-2.4); AST(SGOT) 16 U/L (15-37); Alanine Aminotransfer ALT/SGPT 24 U/L (16-61); Albumin, Serum 3.8 g/dL (3.2-5.0); Alkaline Phosphatase 107 U/L (45-117); Anion Gap 7 (5-15); BUN 49 mg/dL (7-18); Calcium,Total 9.5 mg/dL (8.5-10.1); Chloride 100 mmol/L (98-107); Creatinine, Serum 2.23 mg/dL (0.70-1.30); EST Glomerular Filtration Rate 32 mL/min (>60); Est Glom Filt Rate - Afr Amer 39 mL/min (>60); Estimated Creatinine Clearance 36.37 ml/min; Globulin 3.2 g/dL (2.2-4.2); Glucose 204 mg/dL (74-106); Lipase 98 U/L (73-393); Potassium 4.3 mmol/L (3.5-5.1); Sodium Level 140 mmol/L (136-145)
[2019-07-03 12:36] LABS: Bacteria 1+ /hpf (None Seen); Mucous, Urine RARE /hpf (<or=2+); Red Blood Cells-Urine 0-5 SEEN /hpf (0-5); Squamous Epithelial Cells - UA 0-5 SEEN /hpf (0-5)
[2019-07-03 13:41] VITALS: BP 183/102; RESP 18; O2SAT 96
[2019-07-03 14:46] VITALS: BP 177/110; PULSE 68; RESP 18; O2SAT 96
== END 2019-07-03 15:01 | disposition home or self-care (01) ==
PROVIDERS: Emergency Provider Emergency Medicine; PCP Family Medicine
DX: R11.2 Nausea with vomiting, unspecified (principal); R19.7 Diarrhea, unspecified; R10.84 Generalized abdominal pain; M54.9 Dorsalgia, unspecified; G89.29 Other chronic pain; J34.89 Other specified disorders of nose and nasal sinuses; I25.2 Old myocardial infarction; I25.10 Atherosclerotic heart disease of native coronary artery without angina pectoris; E11.9 Type 2 diabetes mellitus without complications; Z86.73 Personal history of transient ischemic attack (TIA), and cerebral infarction without residual deficits; Z79.4 Long term (current) use of insulin; Z79.82 Long term (current) use of aspirin; Z79.899 Other long term (current) drug therapy; F17.290 Nicotine dependence, other tobacco product, uncomplicated
CPT/HCPCS: 80053; 81001; 83690; 85025; 96361; 96374; 99285; J7030; J2405

== ENCOUNTER 2019-11-26 09:00 | Observation (INO) | payer OTHER, MEDICARE, MEDICAID, SELFPAY ==
[2019-03-06 08:28] VITALS: BMI 29.0
[2019-11-20 15:00] VITALS: BMI 26.9
[2019-11-26] VITALS (11 sets, daily range): BP systolic 124–185; BP diastolic 64–127; PULSE 78–87; RESP 12–20; TEMP 36.6–37; O2SAT 97–98; BMI 29.3; BMI 29.5
[2019-11-26 09:11] LABS: Bedside Glucose 354 mg/dL (70-110)
--- NOTE | 2019-11-26 09:24 | RAD_ITS ---
STUDY: X-RAY CHEST REASON FOR EXAM: Male, 59 years old. CP - RT SIDE SINCE LAST NIGHT, HYPERGLYCEMIA. CABG X 4 MONTHS AGO. HX CVA TECHNIQUE: Single AP portable view of the chest. COMPARISON: March 07, 2019 FINDINGS: There are monitoring and support devices. The lungs are clear and expanded. There is no demonstrated pleural abnormality. Sternal cerclage wires are present from a prior sternotomy. Normal mediastinum and ella. Normal visualized pulmonary arteries. There is atherosclerotic calcification of the aortic arch. Normal visualized thoracic spine. Normal visualized ribs, clavicles, and shoulders. There is no demonstrated abnormality of the visualized soft tissue structures of the upper abdomen. RAD/Chest 1 View (Portable) IMPRESSION: Degenerative changes, as described above. No demonstrated acute cardiopulmonary process. Electronically Signed: Brett Rosa MD at 10:01 EDT , Service support ,
--- NOTE | 2019-11-26 09:24 | EKG12_ITS ---
Test Reason : CP Blood Pressure : / mmHG Vent. Rate : 085 BPM Atrial Rate : 085 BPM P-R Int : 170 ms QRS Dur : 104 ms QT Int : 380 ms P-R-T Axes : 061 002 077 degrees QTc Int : 452 ms Normal sinus rhythm Minimal voltage criteria for LVH, may be normal variant Inferior infarct (cited on or before 05-MAR-2019) Abnormal ECG Confirmed by EDVIN TINEO, ZAK ([id number]), photography editor SWETHA LAW ([id number]) on 11/27/2019 2:44:34 PM Referred By: GARY Confirmed By:ZAK PARDO MD
[2019-11-26 09:34] LABS: Absolute Lymphocyte Count 0.89 X10^3/uL (0.83-4.51); Absolute Neutrophil Count 8.8 X10^3/uL (2.0-7.7); Basophil# 0.04 X10^3/uL; Basophil% 0.4 % (0-1); Eosinophil# 0.08 X10^3/uL; Eosinophils% 0.8 % (0-5); Hematocrit 40.7 % (40-54); Hemoglobin 12.7 g/dL (13.0-16.5); Lymphocyte # 0.89 X10^3/ul (4.0); Lymphocyte % 8.4 % (19-41); Mean Corp Hgb Conc 31.2 g/dL (32-36); Mean Corpuscular Hgb 24.3 pg (27.0-32.0); Mean Corpuscular Volume 77.8 fL (80-94); Monocyte# 0.69 X10^3/uL; Monocyte% 6.5 % (0-10); NRBC Flagged by Analyzer 0 % (0-5); Neutrophil # 8.78 X10^3/uL (2.7-7.7); Neutrophil % 83.1 % (47-70); Platelet Count 169 K/mm3 (150-450); RBC Distribution Width CV 16.5 % (11.6-14.6); RBC Distribution Width SD 46.2 fl (35.1-43.9); Red Blood Count 5.23 M/mm3 (4.6-6.2); White Blood Count 10.6 K/mm3 (4.4-11.0)
[2019-11-26 09:50] LABS: Anion Gap 8 (5-15); BUN 31 mg/dL (7-18); BUN/Creat Ratio 18.9 RATIO (10-20); Calcium,Total 9.6 mg/dL (8.5-10.1); Chloride 96 mmol/L (98-107); Creatinine, Serum 1.64 mg/dL (0.70-1.30); EST Glomerular Filtration Rate 46 mL/min (>60); Est Glom Filt Rate - Afr Amer 55 mL/min (>60); Estimated Creatinine Clearance 48.84 ml/min; Glucose 349 mg/dL (74-106); Potassium 4.2 mmol/L (3.5-5.1); Sodium Level 135 mmol/L (136-145)
[2019-11-26] MEDS: 0.9% Normal Saline 1,000 ML 999 ML IV (10:09)
--- NOTE | 2019-11-26 10:38 | ED.VIS.CHEST ---
History of Present Illness Chief Complaint: Chest Pain Informant: Patient, EMS Onset: Yesterday Quality: Pressure, Sharp Location: Right Chest Worsened By: Nothing Relieved By: Nothing Narrative: Patient is a 59-year-old male with history of coronary artery disease status post CABG earlier this year at [facility] presenting with right-sided chest pain. Patient states he developed chest pain last night. States it is very sharp last night radiated to his right arm. Now he states more mild and feels more like a pressure in his right chest. He has some intermittent associated shortness of breath with it. He denies any cough or upper respiratory symptoms. States he has been feeling great last 2 days so he has been taking his medications because he has been eating less. His blood sugar last night was in the 400s. Patient is never had chest pain like this before. He denies any other complaints at this time. States he did not sleep well last night because of his discomfort. Prior Similar Symptoms: No Past Medical History - Allergies and Home Meds Allergies/Adverse Reactions: Allergies etodolac Allergy (Unknown, Verified 11/26/19 10:13) Unknown nifedipine [From Adalat] Allergy (Verified 11/26/19 10:13) Unknown Past Medical History: - - Coronary artery disease, diabetes mellitus, history of TBI, low back injury, neuropathy Surgical History: - - Back Surgery 198906/29/95. He had a hernia repair May 07, 2008 Smoking Status: Former smoker - Family History Paternal Family History: Family History (Last Reviewed 11/20/19 @ 15:30 by LEX Parada) Father Heart disease Son Kidney disease Family History: Reports: Heart Disease, Hypertension, - - CAD; cerebral hemorrhage. Maternal Family History: Family History (Last Reviewed 11/20/19 @ 15:30 by LEX Parada) Father Heart disease Son Kidney disease Family History: Reports: - - suicide, depression Review of Systems General: Denies: Chills, Fever, Sweats Eyes: Denies: Visual changes - bilaterally, Diplopia ENT: Denies: Rhinorrhea, Sore throat Cardiovascular: Reports: Chest pain. Denies: Palpitations Respiratory: Reports: Dyspnea. Denies: Cough, Dyspnea on exertion Gastrointestinal: Denies: Abdominal pain, Nausea, Vomiting, Diarrhea, Melena, Hematochezia Genitourinary: Denies: Dysuria, Hematuria, Frequency Musculoskeletal: Denies: Back pain, Extremity Pain Skin: Denies: Rash, Wounds Neurological: Denies: Headache, Weakness, Numbness Physical Exam Vital Signs/Narrative: Vital Signs Temp Pulse Resp BP Pulse Ox 11/26/19 09:33 98.6 F 86 12 160/95 H 97 11/26/19 09:01 98.6 F 84 20 H 175/127 H 97 Inital Vital Signs reviewed: Yes General: Well nourished, Well developed, No Acute Distress Head: Normocephalic, Atraumatic Eyes: Perrl, EOMI ENT: Moist mucous membranes, No rhinorrhea Neck: Supple, Nontender, No JVD Cardiovascular: Regular rate, Regular rhythm, No murmurs, - - 2+ bilateral radial DP pulses Respiratory: No distress, CTA bilaterally Abdomen: Soft, Nontender, Nondistended, Normal bowel sounds. Negative for: Guarding, Rebound tenderness Back: Nontender, Normal Inspection Extremities: Nontender, No edema. Negative for: Calf Tenderness Skin: Normal color, No rash Neurological: Alert, Oriented x3, Cranial nerves II-XII grossly intact, Normal Strength, Normal Sensation Psychological: Normal affect, Normal Mood Diagnostic/Tx/Re-eval Chest X-Ray - ED: 1 View, Read by ED Physician, Read by Radiologist Clinical Impression(s) from Imaging Studies Chest X-Ray 11/26/19 09:24 IMPRESSION: Degenerative changes, as described above. No demonstrated acute cardiopulmonary process. Electronically Signed: Brett Rosa MD at 10:01 EDT , Service support , Laboratory Data 11/26/19 11/26/19 11/26/19 09:07 09:10 09:10 WBC 10.6 RBC 5.23 Hgb 12.7 L Hct 40.7 MCV 77.8 L MCH 24.3 L MCHC 31.2 L RDW Std Deviation 46.2 H RDW Coeff of Jr 16.5 H Plt Count 169 MPV 12.0 Immature Gran % (Auto) 0.800 Neut % (Auto) 83.1 H Lymph % (Auto) 8.4 L [place] % (Auto) 6.5 Eos % (Auto) 0.8 Baso % (Auto) 0.4 Absolute Neuts (auto) 8.8 H Absolute Lymphs (auto) 0.89 Nucleated RBC % 0 Sodium 135 L Potassium 4.2 Chloride 96 L Carbon Dioxide 31.0 Anion Gap 8 BUN 31 H Creatinine 1.64 H Estim Creat Clear Calc 48.84 Est GFR (MDRD) Af Amer 55 L Est GFR (MDRD) Non-Af 46 L BUN/Creatinine Ratio 18.9 Glucose 349 H Hemoglobin A1c Calcium 9.6 Troponin I < 0.015 POC Glucose 354 H 11/26/19 09:15 WBC RBC Hgb Hct MCV MCH MCHC RDW Std Deviation RDW Coeff of Jr Plt Count MPV Immature Gran % (Auto) Neut % (Auto) Lymph % (Auto) [place] % (Auto) Eos % (Auto) Baso % (Auto) Absolute Neuts (auto) Absolute Lymphs (auto) Nucleated RBC % Sodium Potassium Chloride Carbon Dioxide Anion Gap BUN Creatinine Estim Creat Clear Calc Est GFR (MDRD) Af Amer Est GFR (MDRD) Non-Af BUN/Creatinine Ratio Glucose Hemoglobin A1c 9.8 H Calcium Troponin I POC Glucose - Rhythm Strip Rhythm Strip: Sinus Rhythm Rate: 85 Ectopy: None - EKG Initial EKG Interpretation: Sinus Rhythm, - - Normal sinus rhythm at a rate of 65 Normal intervals Left axis deviation Voltage criteria for LVH Flattening of the T waves in inferior leads No significant change compared to prior EKG Treatment: Aspirin JOY Risk: H/O CAD Score: 1 - Medical Decision Making Patient is evaluated episode of intermittent chest pain since last night. In addition he is hyperglycemic. Chest pain is atypical however patient did have a CABG less than 6 months ago. He does not have any acute EKG changes and he does not appear to have ACS. Troponin is negative. Patient is given aspirin in the emergency room. He is given 8 units of insulin as well as a liter fluid for his hyperglycemia. Patient not have an elevated anion gap and I am not concerned for HH NK or DKA at this time. Patient will be made for further cardiac monitoring. He is agreeable this plan. He is stable for the PCU at time of disposition. ED Disposition - Plan for ED Patient: Disposition: Acute Care Hospital [facility] Diagnosis: S/P coronary artery bypass graft x 4, Chest pain, Hyperglycemia
--- NOTE | 2019-11-26 10:40 | NURSING ---
MARGIEU OBS NADYA MONTES
[2019-11-26] MEDS: Insulin Lispro 100 UNIT/ML INSULN.PEN 8 UNIT SC (10:51)
[2019-11-26] MEDS: Aspirin 81 MG TAB.CHEW 324 MG PO (10:51)
--- NOTE | 2019-11-26 11:24 | EKG12_ITS ---
Test Reason : Blood Pressure : / mmHG Vent. Rate : 077 BPM Atrial Rate : 077 BPM P-R Int : 174 ms QRS Dur : 104 ms QT Int : 406 ms P-R-T Axes : 067 001 086 degrees QTc Int : 459 ms Sinus rhythm with occasional Premature ventricular complexes Inferior infarct , age undetermined Abnormal ECG No previous ECGs available Confirmed by CALISTA VERNON ([id number]), continuity editor LINDSAY ABBASI ([id number]) on 12/05/2019 1:20:14 PM Referred By: [facility] Confirmed By:CALISTA VERNON
[2019-11-26] MEDS: amLODIPine 5 MG Tablet PO (12:29)
--- NOTE | 2019-11-26 12:44 | PCM.HP.STD ---
Problem List (1) S/P coronary artery bypass graft x 4 Status: Chronic Comment: ST -LAD, ABHI/SVG (tandem graft via the transverse sinus) to OM1, and PDA @ [facility] (2) Ischemic cardiomyopathy Status: Chronic (3) Essential hypertension Status: Chronic (4) Debility Status: Chronic (5) Hyperlipidemia Status: Chronic Qualifiers: Hyperlipidemia type: unspecified Qualified Code(s): E78.5 - Hyperlipidemia, unspecified (6) Cardiomyopathy Status: Acute Qualifiers: Cardiomyopathy type: ischemic Qualified Code(s): I25.5 - Ischemic cardiomyopathy (7) Renal insufficiency Status: Chronic (8) Arteriosclerosis of coronary artery in patient with history of myocardial infarction Status: Chronic Comment: STEMI 03/05/2019:Triple vessel CAD of the LM, LAD, LCX RCA Successful PTCA/ESTEBAN of mid RCA with a 2.25 x 38 Promus Synergy, post dilated throughout with a 2.5 x 8 NC balloon; 99%-->0%, no dissection. Successful PTCA/ESTEBAN proximal RCA with a 2.5 x 16 Promus Synergy, post dilated with a 2.5 x 8 NC balloon; 75%-->0%, no dissection. Successful PTCA/ESTEBAN distal RCA with transition into PDA utilizing a 2.25 x 38 Promus Synergy, followed upstream with a 2.25 x 16 Promus Synergy, post dilated with a 2.5 x 8 NC in the 16mm stented area only; 75%-->0%, no dissection or perforation. (9) Stented coronary artery Status: Chronic Comment: Triple vessel CAD of the LM, LAD, LCX RCA Successful PTCA/ESTEBAN of mid RCA with a 2.25 x 38 Promus Synergy, post dilated throughout with a 2.5 x 8 NC balloon; 99%-->0%, no dissection. Successful PTCA/ESTEBAN proximal RCA with a 2.5 x 16 Promus Synergy, post dilated with a 2.5 x 8 NC balloon; 75%-->0%, no dissection. Successful PTCA/ESTEBAN distal RCA with transition into PDA utilizing a 2.25 x 38 Promus Synergy, followed upstream with a 2.25 x 16 Promus Synergy, post dilated with a 2.5 x 8 NC in the 16mm stented area only; 75%-->0%, no dissection or perforation. (10) Type 2 diabetes mellitus Status: Chronic Qualifiers: (11) Secondary hypertension Status: Chronic (12) CVA (cerebral vascular accident) Status: Chronic Qualifiers: (13) Bradycardia Status: Chronic (14) Noncompliance with diabetes treatment Status: Chronic History of Present Illness Date of Admission: 11/26/19 Chief Complaint: Chest pain. The patient is a 59 year old M who presents to the emergency room due to right-sided chest pain. Patient states this began Wednesday night and has been intermittent since that time. He states pain goes down his right arm. Denies shortness of breath or other associated symptoms. Patient states on Wednesday night he took a nitro and 30 minutes later his pain was gone. He had recent CABG at [facility] July 2019. He states he had follow-up with cardiology last Wednesday and no issues were found. Patient states his symptoms do not feel similar to previous pain prior to CABG. He states he does not feel this is cardiac related however he states he is concerned about his blood sugar. He states he had not been eating very much so did not take insulin for the last 2 days and blood sugar was consistently greater than 400 at home. He has a past medical history of CAD status post CABG, ischemic cardiomyopathy, CVA, hypertension, hyperlipidemia, type 2 diabetes mellitus with neuropathy, depression, anxiety, chronic kidney disease stage III. Past Medical History Past Medical History (Chronic Problems): Chronic Problems (Last Reviewed 11/20/19 @ 15:30 by LEX Parada) S/P coronary artery bypass graft x 4 (Chronic ~08/03/19) ST -LAD, ABHI/SVG (tandem graft via the transverse sinus) to OM1, and PDA @ [facility] Ischemic cardiomyopathy (Chronic) Essential hypertension (Chronic) Debility (Chronic) Hyperlipidemia (Chronic) Renal insufficiency (Chronic) Arteriosclerosis of coronary artery in patient with history of myocardial infarction (Chronic) STEMI 03/05/2019:Triple vessel CAD of the LM, LAD, LCX RCA Successful PTCA/ESTEBAN of mid RCA with a 2.25 x 38 Promus Synergy, post dilated throughout with a 2.5 x 8 NC balloon; 99%-->0%, no dissection. Successful PTCA/ESTEBAN proximal RCA with a 2.5 x 16 Promus Synergy, post dilated with a 2.5 x 8 NC balloon; 75%-->0%, no dissection. Successful PTCA/ESTEBAN distal RCA with transition into PDA utilizing a 2.25 x 38 Promus Synergy, followed upstream with a 2.25 x 16 Promus Synergy, post dilated with a 2.5 x 8 NC in the 16mm stented area only; 75%-->0%, no dissection or perforation. Stented coronary artery (Chronic 03/06/19) Triple vessel CAD of the LM, LAD, LCX RCA Successful PTCA/ESTEBAN of mid RCA with a 2.25 x 38 Promus Synergy, post dilated throughout with a 2.5 x 8 NC balloon; 99%-->0%, no dissection. Successful PTCA/ESTEBAN proximal RCA with a 2.5 x 16 Promus Synergy, post dilated with a 2.5 x 8 NC balloon; 75%-->0%, no dissection. Successful PTCA/ESTEBAN distal RCA with transition into PDA utilizing a 2.25 x 38 Promus Synergy, followed upstream with a 2.25 x 16 Promus Synergy, post dilated with a 2.5 x 8 NC in the 16mm stented area only; 75%-->0%, no dissection or perforation. Type 2 diabetes mellitus (Chronic) Secondary hypertension (Chronic) CVA (cerebral vascular accident) (Chronic) Bradycardia (Chronic) Noncompliance with diabetes treatment (Chronic) Medical History: Medical History (Last Reviewed 11/20/19 @ 15:30 by LEX Parada) Ischemic cardiomyopathy (Chronic) I25.5 Essential hypertension (Chronic) I10 Hyperlipidemia (Chronic) E78.5 Cardiomyopathy (Acute) I42.9 Renal insufficiency (Chronic) N28.9 Arteriosclerosis of coronary artery in patient with history of myocardial infarction (Chronic) I25.10, I25.2 STEMI 03/05/2019:Triple vessel CAD of the LM, LAD, LCX RCA Successful PTCA/ESTEBAN of mid RCA with a 2.25 x 38 Promus Synergy, post dilated throughout with a 2.5 x 8 NC balloon; 99%-->0%, no dissection. Successful PTCA/ESTEBAN proximal RCA with a 2.5 x 16 Promus Synergy, post dilated with a 2.5 x 8 NC balloon; 75%-->0%, no dissection. Successful PTCA/ESTEBAN distal RCA with transition into PDA utilizing a 2.25 x 38 Promus Synergy, followed upstream with a 2.25 x 16 Promus Synergy, post dilated with a 2.5 x 8 NC in the 16mm stented area only; 75%-->0%, no dissection or perforation. 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 Systolic CHF I50.20 Tremor R25.1 Anxiety F41.9 Back pain M54.9 CKD (chronic kidney disease) stage 3, GFR 30-59 ml/min N18.3 Depression F32.9 Abdominal pain R10.9 Hematochezia K92.1 Intractable nausea and vomiting R11.2 Nausea R11.0 Nonketotic hyperglycinemia E72.51 STEMI (ST elevation myocardial infarction) (Resolved) Onset Date: 03/05/19 I21.3 Syncope (Resolved) R55 Syncope and collapse (Resolved) R55 Allergies etodolac Allergy (Unknown, Verified 11/26/19 10:13) Unknown nifedipine [From Adalat] Allergy (Verified 11/26/19 10:13) Unknown Home Medications: Ambulatory Orders Medication Instructions Recorded diazepam 5 mg tablet 5 mg PO BID 02/27/19 duloxetine 60 mg capsule,delayed 60 mg PO DAILY 02/27/19 release pregabalin 150 mg capsule 150 mg PO BID 02/27/19 Aspirin [Aspirin, Baby] 81 mg PO DAILY@0800 03/10/19 Pantoprazole Sodium [Protonix] 40 mg PO DAILY 03/10/19 Insulin Glargine,Hum.rec.anlog 40 units SQ QHS 03/20/19 [Basaglar Kwikpen U-100] Insulin Lispro [Humalog KwikPen] 0 units SQ TIDCM 03/20/19 clopidogrel 75 mg tablet 75 mg PO DAILY 08/08/19 magnesium oxide 400 mg PO BID 08/08/19 multivitamin 1 tab PO DAILY 08/08/19 carvedilol 3.125 mg tablet 3.125 mg PO BID #180 tab 09/11/19 potassium chloride 20 mEq 20 meq PO DAILY #90 tab 09/11/19 tablet,extended release cholecalciferol (vitamin D3) 50 50 mcg PO DAILY 09/27/19 mcg (2,000 unit) tablet furosemide 20 mg tablet 20 mg PO DAILY 11/20/19 Atorvastatin Calcium 80 mg PO QHS 11/26/19 Surgical History: Surgical History (Last Reviewed 11/20/19 @ 15:30 by LEX Parada) S/P coronary artery bypass graft x 4 (Chronic) Onset Date: ~08/03/[address] -LAD, ABHI/SVG (tandem graft via the transverse sinus) to OM1, and PDA @ [facility] Stented coronary artery (Chronic) Onset Date: 03/06/19 Z95.5 Triple vessel CAD of the LM, LAD, LCX RCA Successful PTCA/ESTEBAN of mid RCA with a 2.25 x 38 Promus Synergy, post dilated throughout with a 2.5 x 8 NC balloon; 99%-->0%, no dissection. Successful PTCA/ESTEBAN proximal RCA with a 2.5 x 16 Promus Synergy, post dilated with a 2.5 x 8 NC balloon; 75%-->0%, no dissection. Successful PTCA/ESTEBAN distal RCA with transition into PDA utilizing a 2.25 x 38 Promus Synergy, followed upstream with a 2.25 x 16 Promus Synergy, post dilated with a 2.5 x 8 NC in the 16mm stented area only; 75%-->0%, no dissection or perforation. History of lumbar fusion Z98.890 History of back surgery Z98.890 History of umbilical hernia repair Z98.890, Z87.19 Surgical History: - - Back Surgery 198906/29/95. He had a hernia repair May 07, 2008, CABG 07/30 Psychiatric History: Anxiety, Depression - severe Lives: Spouse/ Significant Other Smoking Status: Former smoker Alcohol: None Drugs: None - *Family History Paternal Family History: Family History (Last Reviewed 11/20/19 @ 15:30 by LEX Parada) Father Heart disease Son Kidney disease History Items: Heart Disease, Hypertension, - - CAD; cerebral hemorrhage. Maternal Family History: Family History (Last Reviewed 11/20/19 @ 15:30 by LEX Parada) Father Heart disease Son Kidney disease History Items: - - suicide, depression Review of Systems Constitutional: Denies: Chills, Fever, Weight Change HEENT: Denies: Head Aches, Sinus Congestion, Sinus Drainage Cardiovascular: Reports: Chest Pain. Denies: Palpitations Respiratory: Denies: Cough, Shortness of breath at rest, Sputum production Gastrointestinal: Denies: Abdominal Pain, Nausea, Vomiting Genitourinary: Denies: Dysuria Musculoskeletal: Denies: Joint Pain, Joint Tenderness Skin: Denies: Rash, Wounds Neurological: Denies: Numbness, Tingling, Focal weakness Psychiatric: Reports: Anxiety, Depression. Denies: Homicidal Ideations, Suicidal Ideations Hematologic/ Lymphatic: Denies: Easy Bruising, Easy Bleeding VTE Information - Inpt Only VTE Present on Admission: No VTE Mechan Device Prophylaxis: None VTE Pharm Prophylaxis ordered?: Yes - Physical Exam Vitals/I&O's: Vital Signs Temp Pulse Resp BP Pulse Ox 97.8 F 82 18 185/110 H 97 11/26/19 11:04 11/26/19 11:09 11/26/19 11:04 11/26/19 11:04 11/26/19 11:04 Oxygen Delivery Method Room Air Weight: 199 lb 8.293 oz Body Mass Index (BMI) 29.5 Finger Stick Blood Glucose 354 Intake and Output for Last 24 Hours 11/24/19 11/25/19 11/26/19 23:59 23:59 23:59 Intake Total 1000 / 1000 Balance 1000 / 1000 General: Alert, Oriented x3, Cooperative HEENT: Atraumatic, PERRLA, EOMI, Normocephalic Neck: Supple, No JVD, Negative Carotid Bruits Lungs: Clear to auscultation, Normal air movement Cardiovascular: Regular rate, No murmurs Abdomen: Bowel Sounds Present, Soft, Non Tender Extremities: No clubbing, No cyanosis, No edema, Capillary Refill Less than 3 Seconds Skin: No rashes, No breakdown, - - CABG scar healed Musculoskeletal: No Tenderness to Palpation of Joints or Extremities Neurological: Cranial nerves II-XII grossly intact, Neuro grossly intact Psych/Mental Status: Normal Affect, Appropriate Laboratory Results 11/26/19 09:07: POC Glucose 354 H 11/26/19 09:10: WBC 10.6, RBC 5.23, Hgb 12.7 L, Hct 40.7, MCV 77.8 L, MCH 24.3 L, MCHC 31.2 L, RDW Std Deviation 46.2 H, RDW Coeff of Jr 16.5 H, Plt Count 169, MPV 12.0, Immature Gran % (Auto) 0.800, Neut % (Auto) 83.1 H, Lymph % (Auto) 8.4 L, [place] % (Auto) 6.5, Eos % (Auto) 0.8, Baso % (Auto) 0.4, Absolute Neuts (auto) 8.8 H, Absolute Lymphs (auto) 0.89, Nucleated RBC % 0 11/26/19 09:10: Sodium 135 L, Potassium 4.2, Chloride 96 L, Carbon Dioxide 31.0, Anion Gap 8, BUN 31 H, Creatinine 1.64 H, Estim Creat Clear Calc 48.84, Est GFR (MDRD) Af Amer 55 L, Est GFR (MDRD) Non-Af 46 L, BUN/Creatinine Ratio 18.9, Glucose 349 H, Calcium 9.6, Troponin I < 0.015 11/26/19 12:15: Troponin I Pending Current Medications Acetaminophen (Tylenol) 650 mg PO Q6H PRN PRN PRN Reason: Pain Score 1-10/Temp > 100.7 F Aspirin (Aspirin, Baby) 81 mg PO DAILY@0800 [facility] Carvedilol (Coreg) 3.125 mg PO BID [facility] Clopidogrel Bisulfate (Plavix) 75 mg PO DAILY [facility] Diazepam (Valium) 5 mg PO BID [facility] Duloxetine HCl (Cymbalta) 60 mg PO DAILY [facility] Furosemide (Lasix) 20 mg PO DAILY [facility] Heparin Sodium (Porcine) (Heparin Na) 5,000 unit SC Q12 [facility] Sodium Chloride () 250 mls @ 15 mls/hr IV .[id number] PRN PRN Reason: Saline Flush Sodium Chloride () 250 mls @ 15 mls/hr IV .[id number] PRN PRN Reason: Additional IVPB Infusion Insulin Glargine (Lantus (Bk)) 40 units SC QHS [facility] Insulin Human Lispro (Humalog Kwikpen (Bk)) 0 unit SC ACHS [facility]; Protocol Magnesium Oxide (Mag-Ox 400) 400 mg PO BID [facility] Morphine Sulfate () 2 mg IV Q3H PRN PRN PRN Reason: Pain Score 6-10/10 Nutritional Formula (Lactose Free) (Glucerna Shake) 120 ml PO TIDCM [facility] Pantoprazole Sodium (Protonix) 40 mg PO DAILY [facility] Potassium Chloride (K-Dur) 20 meq PO DAILY@0800 [facility] Pregabalin (Lyrica) 150 mg PO BID [facility] Sodium Chloride () 10 - 40 ml IV UD PRN PRN Reason: SALINE FLUSH Assessment/Plan All Active Problems (Last Reviewed 11/20/19 @ 15:30 by LEX Parada) Cardiomyopathy (Acute) STEMI (ST elevation myocardial infarction) (Resolved 03/05/19) Syncope (Resolved) Syncope and collapse (Resolved) 1. Atypical chest pain, history of CAD status post angioplasty with CABG x3 07/2019/ischemic cardiomyopathy- Follows with Dr. Dobbs. Initial troponin negative x2. EKG without ST-T changes. Stress test ordered for a.m. Continue aspirin, Plavix, statin, beta-basilio. Echocardiogram May 2019 demonstrated an EF of 45%, RVSP estimated to be 26 mmHg. 2. Type 2 diabetes mellitus with neuropathy, poorly controlled-patient has been holding his insulin due to not eating much. Will need diabetic education. Accu-Cheks with sliding scale insulin. Continue home long-acting regimen. Check hemoglobin A1c. 3. Chronic kidney disease stage III-at baseline, trend BMP. 4. History of right MAGDI infarct-aspirin, statin, plavix. Residual debility with recurrent falls. PT/OT. 5. Hypertension-stable, continue carvedilol, Lasix. 6. Hyperlipidemia-continue statin. 7. Depression/anxiety-continue diazepam, duloxetine regimen. 8. GERD-continue PPI. DVT prophylaxis- heparin sc This patient was seen by ALBIN Beard under the supervision of Dr. Haro.
[2019-11-26 14:14] LABS: Hemoglobin A1c 9.8 % (3.8-5.6)
[2019-11-26] MEDS: Insulin Lispro 100 UNIT/ML INSULN.PEN SC ×2 (17:11→21:54)
[2019-11-26 17:36] LABS: Bedside Glucose 257 mg/dL (70-110)
[2019-11-26] MEDS: Carvedilol 3.125 MG TABLET PO (21:54)
[2019-11-26] MEDS: Heparin Injection (Vial) 5,000 UNIT/ML VIAL 5000 UNIT SC (21:54)
[2019-11-26] MEDS: Magnesium Oxide 400 MG Tablet PO (21:57)
[2019-11-26] MEDS: diazePAM 5 MG Tablet PO (22:00)
[2019-11-26] MEDS: Pregabalin 75 MG Capsule 150 MG PO (22:00)
[2019-11-26 22:11] LABS: Bedside Glucose 332 mg/dL (70-110)
[2019-11-27 02:10] VITALS: BP 137/78; PULSE 74; RESP 16; TEMP 36.8; O2SAT 98
[2019-11-27 03:00] VITALS: PULSE 75
[2019-11-27 06:31] LABS: Bedside Glucose 184 mg/dL (70-110)
[2019-11-27 06:41] LABS: Anion Gap 6 (5-15); BUN 34 mg/dL (7-18); BUN/Creat Ratio 22.1 RATIO (10-20); Chloride 100 mmol/L (98-107); Creatinine, Serum 1.54 mg/dL (0.70-1.30); EST Glomerular Filtration Rate 49 mL/min (>60); Est Glom Filt Rate - Afr Amer 59 mL/min (>60); Estimated Creatinine Clearance 50.37 ml/min; Glucose 187 mg/dL (74-106); Potassium 4.1 mmol/L (3.5-5.1); Sodium Level 138 mmol/L (136-145)
[2019-11-27 07:00] VITALS: PULSE 72
[2019-11-27 08:02] VITALS: BP 132/67; PULSE 72; RESP 14; TEMP 36.7; O2SAT 98
[2019-11-27] MEDS: Clopidogrel Bisulfate 75 MG Tablet PO (10:43)
[2019-11-27] MEDS: Furosemide 20 MG Tablet PO (10:43)
[2019-11-27] MEDS: Magnesium Oxide 400 MG Tablet PO (10:43)
[2019-11-27] MEDS: Pantoprazole Sodium 40 MG Tablet PO (10:43)
[2019-11-27] MEDS: Carvedilol 3.125 MG TABLET PO (10:44)
[2019-11-27] MEDS: Aspirin 81 MG TAB.CHEW PO (10:44)
[2019-11-27] MEDS: DULoxetine Hcl 60 MG Capsule PO (10:44)
[2019-11-27] MEDS: Pregabalin 75 MG Capsule 150 MG PO (10:46)
[2019-11-27] MEDS: diazePAM 5 MG Tablet PO (10:46)
[2019-11-27 11:35] LABS: Bedside Glucose 210 mg/dL (70-110)
--- NOTE | 2019-11-27 11:36 | STRESSREP_ITS ---
Stress Test Report Pharmacologic myocardial perfusion stress test. 59-year-old man with a history of hypertension, diabetes, coronary artery bypass surgery. Stress protocol: Resting EKG demonstrates normal sinus rhythm with a rate of 72 bpm normal intervals are noted resting blood pressure is 138/82 mmHg. 0.4 mg of regadenoson was infused per usual protocol followed by rapid intravenous saline flush injection continuous EKG monitoring was performed. At rest there were no ST or T wave changes noted to suggest abnormal flow reserve at peak infusion no nspecific ST-T wave changes were noted with no meet the criteria for abnormal flow reserve. The resting blood pressure is 138/82 with a final blood pressure 138/70. Myocardial perfusion protocol. 12.0 mCi of technetium 99m sestamibi was injected at rest. 0.4 mg of regadenoson was infused per usual protocol. At peak infusion 34.0 mCi of technetium 99m sestamibi was injected stress images were obtained stress and rest images were reconstructed and compared in the short axis vertical long horizontal long axis. Gated images were also obtained per Perfusion SPECT analysis: Review of the stress images demonstrate normal uptake of tracer noted in all areas of the myocardium except for the basal inferior wall. There is a medium size defect noted on the stress and resting images to a similar extent. The distal inferior wall also demonstrates mild reduction in perfusion. This is also present on the resting images. A tiny amount of ischemia cannot be completely excluded. The above is suggestive of a previous extensive basal inferior infarct. Gated ejection fraction The gated ejection fraction is 22%. Conclusion: Ischemic cardiomyopathy. Previous extensive basal inferior infarct. No significant ischemia noted
--- NOTE | 2019-11-27 11:44 | DCINST_ITS ---
- Discharge Diagnoses Current Active Problems: Current Active and Chronic Problems (Last Reviewed 11/20/19 @ 15:30 by LEX Parada) Chest pain (Acute) Hyperglycemia (Acute) S/P coronary artery bypass graft x 4 (Chronic ~08/03/19) ST -LAD, ABHI/SVG (tandem graft via the transverse sinus) to OM1, and PDA @ [facility] You will use the following diet at home:: Cardiac Discharge Activity: Return to Normal Activity Call your doctor if you observe: Shortness of breath, Dizziness, Fainting spells, Chest pain Allergies/Adverse Reactions: Allergies etodolac Allergy (Unknown, Verified 11/26/19 10:13) Unknown nifedipine [From Adalat] Allergy (Verified 11/26/19 10:13) Unknown Medications to take at Discharge diazepam 5 mg tablet 5 mg PO BID 02/27/19 duloxetine 60 mg capsule,delayed release 60 mg PO DAILY 02/27/19 pregabalin 150 mg capsule 150 mg PO BID 02/27/19 Aspirin [Aspirin, Baby] 81 mg PO DAILY@0800 03/10/19 Pantoprazole Sodium [Protonix] 40 mg PO DAILY 03/10/19 Insulin Glargine,Hum.rec.anlog [Basaglar Kwikpen U-100] 40 units SQ QHS 03/20/19 Insulin Lispro [Humalog KwikPen] 0 units SQ TIDCM 03/20/19 clopidogrel 75 mg tablet 75 mg PO DAILY 08/08/19 magnesium oxide 400 mg PO BID 08/08/19 multivitamin 1 tab PO DAILY 08/08/19 carvedilol 3.125 mg tablet 3.125 mg PO BID #180 tab 09/11/19 potassium chloride 20 mEq tablet,extended release 20 meq PO DAILY #90 tab 09/11/19 cholecalciferol (vitamin D3) 50 mcg (2,000 unit) tablet 50 mcg PO DAILY 09/27/19 furosemide 20 mg tablet 20 mg PO DAILY 11/20/19 Atorvastatin Calcium 80 mg PO QHS 11/26/19 Primary Care Physician: Chema Mckeon DO [Primary Care Provider] - Please follow up with your Primary Care Physician in: 1 Week Test Results: Test results from this visit will be discussed in further detail at your follow- up appointment, if applicable. Please Follow Up With: Rupa Lopez PA When: As scheduled Proposed Discharge Date: 11/27/19
--- NOTE | 2019-11-27 11:53 | PCM.DC.SUM ---
<Heather Mitchell - Last Filed: 11/27/19 11:58> Discharge Date and Diagnosis Date of Admission: 11/26/19 Date of Discharge: 11/27/19 - Primary Discharge Diagnosis Acute Problems: Active Problems (Last Reviewed 11/20/19 @ 15:30 by LEX Parada) 1. Atypical chest pain, history of CAD status post angioplasty with CABG x3 07/2019/ischemic cardiomyopathy- ACS ruled out 2. Type 2 diabetes mellitus with neuropathy 3. Chronic kidney disease stage III 4. History of right MAGDI infarct 5. Hypertension 6. Hyperlipidemia 7. Depression/anxiety 8. GERD - Secondary Discharge Diagnosis Chronic Problems: Chronic Problems (Last Reviewed 11/20/19 @ 15:30 by LEX Parada) S/P coronary artery bypass graft x 4 (Chronic ~08/03/19) ST -LAD, ABHI/SVG (tandem graft via the transverse sinus) to OM1, and PDA @ [facility] Ischemic cardiomyopathy (Chronic) Essential hypertension (Chronic) Debility (Chronic) Hyperlipidemia (Chronic) Renal insufficiency (Chronic) Arteriosclerosis of coronary artery in patient with history of myocardial infarction (Chronic) STEMI 03/05/2019:Triple vessel CAD of the LM, LAD, LCX RCA Successful PTCA/ESTEBAN of mid RCA with a 2.25 x 38 Promus Synergy, post dilated throughout with a 2.5 x 8 NC balloon; 99%-->0%, no dissection. Successful PTCA/ESTEBAN proximal RCA with a 2.5 x 16 Promus Synergy, post dilated with a 2.5 x 8 NC balloon; 75%-->0%, no dissection. Successful PTCA/ESTEBAN distal RCA with transition into PDA utilizing a 2.25 x 38 Promus Synergy, followed upstream with a 2.25 x 16 Promus Synergy, post dilated with a 2.5 x 8 NC in the 16mm stented area only; 75%-->0%, no dissection or perforation. Stented coronary artery (Chronic 03/06/19) Triple vessel CAD of the LM, LAD, LCX RCA Successful PTCA/ESTEBAN of mid RCA with a 2.25 x 38 Promus Synergy, post dilated throughout with a 2.5 x 8 NC balloon; 99%-->0%, no dissection. Successful PTCA/ESTEBAN proximal RCA with a 2.5 x 16 Promus Synergy, post dilated with a 2.5 x 8 NC balloon; 75%-->0%, no dissection. Successful PTCA/ESTEBAN distal RCA with transition into PDA utilizing a 2.25 x 38 Promus Synergy, followed upstream with a 2.25 x 16 Promus Synergy, post dilated with a 2.5 x 8 NC in the 16mm stented area only; 75%-->0%, no dissection or perforation. Type 2 diabetes mellitus (Chronic) Secondary hypertension (Chronic) CVA (cerebral vascular accident) (Chronic) Bradycardia (Chronic) Noncompliance with diabetes treatment (Chronic) Hospital Course and Treatment Imaging Results: Diagnostic Data Chest X-Ray 11/26/19 09:24 IMPRESSION: Degenerative changes, as described above. No demonstrated acute cardiopulmonary process. Electronically Signed: Brett Rosa MD at 10:01 EDT , Service support , Operations: None Procedures: Stress test Summary of Care Provided: The patient is a 59 year old M admitted 11/26/2019 due to chest pain. 1. Atypical chest pain, history of CAD status post angioplasty with CABG x3 07/2019/ischemic cardiomyopathy-ACS ruled out. Follows with Dr. Dobbs. Troponin negative. EKG without ST-T changes. Patient underwent stress test which was negative for ischemia, previous extensive basal inferior infarct, ischemic cardiomyopathy with gated ejection fraction 22%. Continue aspirin, Plavix, statin, beta-basilio. Echocardiogram May 2019 demonstrated an EF of 45%, RVSP estimated to be 26 mmHg. Follow-up with cardiology as scheduled. 2. Type 2 diabetes mellitus with neuropathy, poorly controlled-patient has been holding his insulin due to not eating much. Discussed with patient in length continuing long-acting insulin daily and following sliding scale insulin protocol. Blood sugar improved during admission on home insulin regimen. Hemoglobin A1c 9.8%. 3. Chronic kidney disease stage III-at baseline. 4. History of right MAGDI infarct-aspirin, statin, plavix. Residual debility with recurrent falls. PT/OT. 5. Hypertension-stable, continue carvedilol, Lasix. 6. Hyperlipidemia-continue statin. 7. Depression/anxiety-continue diazepam, duloxetine regimen. 8. GERD-continue PPI. General: Alert, Oriented x3, Cooperative HEENT: Atraumatic, PERRLA, EOMI, Normocephalic Neck: Supple, No JVD, Negative Carotid Bruits Lungs: Clear to auscultation, Normal air movement Cardiovascular: Regular rate, No murmurs Abdomen: Bowel Sounds Present, Soft, Non Tender Extremities: No clubbing, No cyanosis, No edema, Capillary Refill Less than 3 Seconds Skin: No rashes, No breakdown, - - CABG scar healed Musculoskeletal: No Tenderness to Palpation of Joints or Extremities Neurological: Cranial nerves II-XII grossly intact, Neuro grossly intact Psych/Mental Status: Normal Affect, Appropriate Patient seen and examined prior to discharge. Physical assessment as noted above. Patient is stable for discharge with follow up recommendations as noted above. This patient was seen by ALBIN Beard under the supervision of Dr. Steele. - Physical Exam Vitals/I&O's: Vital Signs Temp Pulse Resp BP Pulse Ox 98.1 F 72 14 132/67 H 98 11/27/19 08:02 11/27/19 08:02 11/27/19 08:02 11/27/19 08:02 11/27/19 08:02 Oxygen Delivery Method Room Air Weight: 199 lb 8.293 oz Body Mass Index (BMI) 29.5 Finger Stick Blood Glucose 354 Intake and Output for Last 24 Hours 11/25/19 11/26/19 11/27/19 23:59 23:59 23:59 Intake Total 2435 / 2935 500 / 500 Output Total 1050 / 1500 1050 / 1050 Balance 1385 / 1435 -550 / -550 Laboratory Results 11/26/19 09:15: Hemoglobin A1c 9.8 H 11/26/19 12:15: Troponin I < 0.015 11/26/19 14:54: Troponin I 0.021 11/26/19 17:10: POC Glucose 257 H 11/26/19 21:52: POC Glucose 332 H 11/27/19 05:45: Sodium 138, Potassium 4.1, Chloride 100, Carbon Dioxide 32.0, Anion Gap 6, BUN 34 H, Creatinine 1.54 H, Estim Creat Clear Calc 50.37, Est GFR (MDRD) Af Amer 59 L, Est GFR (MDRD) Non-Af 49 L, BUN/Creatinine Ratio 22.1 H, Glucose 187 H, Calcium 9.0 11/27/19 06:07: POC Glucose 184 H 11/27/19 11:32: POC Glucose 210 H Current Medications Acetaminophen (Tylenol) 650 mg PO Q6H PRN PRN PRN Reason: Pain Score 1-10/Temp > 100.7 F Aspirin (Aspirin, Baby) 81 mg PO DAILY@0800 [facility] Last Admin: 11/27/19 10:44 Dose: 81 mg Documented by: Carvedilol (Coreg) 3.125 mg PO BID [facility] Last Admin: 11/27/19 10:44 Dose: 3.125 mg Documented by: Clopidogrel Bisulfate (Plavix) 75 mg PO DAILY [facility] Last Admin: 11/27/19 10:43 Dose: 75 mg Documented by: Diazepam (Valium) 5 mg PO BID [facility] Last Admin: 11/27/19 10:46 Dose: 5 mg Documented by: Duloxetine HCl (Cymbalta) 60 mg PO DAILY [facility] Last Admin: 11/27/19 10:44 Dose: 60 mg Documented by: Furosemide (Lasix) 20 mg PO DAILY [facility] Last Admin: 11/27/19 10:43 Dose: 20 mg Documented by: Heparin Sodium (Porcine) (Heparin Na) 5,000 unit SC Q12 [facility] Last Admin: 11/26/19 21:54 Dose: 5,000 unit Documented by: Sodium Chloride () 250 mls @ 15 mls/hr IV .[id number] PRN PRN Reason: Saline Flush Sodium Chloride () 250 mls @ 15 mls/hr IV .[id number] PRN PRN Reason: Additional IVPB Infusion Insulin Glargine (Lantus (Bk)) 40 units SC QHS [facility] Last Admin: 11/26/19 21:56 Dose: 40 u Documented by: Insulin Human Lispro (Humalog Kwikpen (Bk)) 0 unit SC ACHS [facility]; Protocol Last Admin: 11/27/19 06:08 Dose: Not Given Documented by: Magnesium Oxide (Mag-Ox 400) 400 mg PO BID [facility] Last Admin: 11/27/19 10:43 Dose: 400 mg Documented by: Morphine Sulfate () 2 mg IV Q3H PRN PRN PRN Reason: Pain Score 6-10/10 Pantoprazole Sodium (Protonix) 40 mg PO DAILY [facility] Last Admin: 11/27/19 10:43 Dose: 40 mg Documented by: Potassium Chloride (K-Dur) 20 meq PO DAILY@0800 [facility] Last Admin: 11/27/19 10:43 Dose: 20 meq Documented by: Pregabalin (Lyrica) 150 mg PO BID [facility] Last Admin: 11/27/19 10:46 Dose: 150 mg Documented by: Sodium Chloride () 10 - 40 ml IV UD PRN PRN Reason: SALINE FLUSH Discharge Diet: Low fat/ Low Cholesterol Discharge Activity: Return to Normal Activity Call your doctor if you observe: Shortness of breath, Dizziness, Fainting spells, Chest pain Home Medications: Medications to take at Discharge diazepam 5 mg tablet 5 mg PO BID 02/27/19 duloxetine 60 mg capsule,delayed release 60 mg PO DAILY 02/27/19 pregabalin 150 mg capsule 150 mg PO BID 02/27/19 Aspirin [Aspirin, Baby] 81 mg PO DAILY@0800 03/10/19 Pantoprazole Sodium [Protonix] 40 mg PO DAILY 03/10/19 Insulin Glargine,Hum.rec.anlog [Basaglar Kwikpen U-100] 40 units SQ QHS 03/20/19 Insulin Lispro [Humalog KwikPen] 0 units SQ TIDCM 03/20/19 clopidogrel 75 mg tablet 75 mg PO DAILY 08/08/19 magnesium oxide 400 mg PO BID 08/08/19 multivitamin 1 tab PO DAILY 08/08/19 carvedilol 3.125 mg tablet 3.125 mg PO BID #180 tab 09/11/19 potassium chloride 20 mEq tablet,extended release 20 meq PO DAILY #90 tab 09/11/19 cholecalciferol (vitamin D3) 50 mcg (2,000 unit) tablet 50 mcg PO DAILY 09/27/19 furosemide 20 mg tablet 20 mg PO DAILY 11/20/19 Atorvastatin Calcium 80 mg PO QHS 11/26/19 Primary Care Physician: Chema Mckeon DO [Primary Care Provider] - Please follow up with your Primary Care Physician in: 1 Week Please Follow Up With: Rupa Lopez PA When: As scheduled Disposition: Home Minutes spent on discharge:: 35 Patient Condition:: Stable Medical Necessity - Tobacco Use Smoking Status: Former smoker Meaningful Use Info Meaningful Use Diagnoses (Choose all that apply): None applicable <Paintsil,Horton - Last Filed: 11/27/19 15:22> Discharge Date and Diagnosis - Secondary Discharge Diagnosis Chronic Problems: Chronic Problems (Last Reviewed 11/20/19 @ 15:30 by LEX Parada) S/P coronary artery bypass graft x 4 (Chronic ~08/03/19) ST -LAD, ABHI/SVG (tandem graft via the transverse sinus) to OM1, and PDA @ [facility] Ischemic cardiomyopathy (Chronic) Essential hypertension (Chronic) Debility (Chronic) Hyperlipidemia (Chronic) Renal insufficiency (Chronic) Arteriosclerosis of coronary artery in patient with history of myocardial infarction (Chronic) STEMI 03/05/2019:Triple vessel CAD of the LM, LAD, LCX RCA Successful PTCA/ESTEBAN of mid RCA with a 2.25 x 38 Promus Synergy, post dilated throughout with a 2.5 x 8 NC balloon; 99%-->0%, no dissection. Successful PTCA/ESTEBAN proximal RCA with a 2.5 x 16 Promus Synergy, post dilated with a 2.5 x 8 NC balloon; 75%-->0%, no dissection. Successful PTCA/ESTEBAN distal RCA with transition into PDA utilizing a 2.25 x 38 Promus Synergy, followed upstream with a 2.25 x 16 Promus Synergy, post dilated with a 2.5 x 8 NC in the 16mm stented area only; 75%-->0%, no dissection or perforation. Stented coronary artery (Chronic 03/06/19) Triple vessel CAD of the LM, LAD, LCX RCA Successful PTCA/ESTEBAN of mid RCA with a 2.25 x 38 Promus Synergy, post dilated throughout with a 2.5 x 8 NC balloon; 99%-->0%, no dissection. Successful PTCA/ESTEBAN proximal RCA with a 2.5 x 16 Promus Synergy, post dilated with a 2.5 x 8 NC balloon; 75%-->0%, no dissection. Successful PTCA/ESTEBAN distal RCA with transition into PDA utilizing a 2.25 x 38 Promus Synergy, followed upstream with a 2.25 x 16 Promus Synergy, post dilated with a 2.5 x 8 NC in the 16mm stented area only; 75%-->0%, no dissection or perforation. Type 2 diabetes mellitus (Chronic) Secondary hypertension (Chronic) CVA (cerebral vascular accident) (Chronic) Bradycardia (Chronic) Noncompliance with diabetes treatment (Chronic) Hospital Course and Treatment Summary of Care Provided: This patient was seen in conjunction with Heather Mitchell NP. I have independently interviewed and examined the patient and reviewed pertinent historical, laboratory, and other data. Please refer to her note for patient's presentation, findings, and recommendations. XT 1-year-old with multiple comorbidities significant for CAD status post stents, type II DM, recent CVA who was admitted with right-sided chest pain that was relieved by nitro. Was admitted to the telemetry floor, his troponins were negative. EKG had no acute ST change. Stress test was ordered which was negative. Changes were made to his insulin with continuation of his home long-acting regimen. He was advised not to hold his insulin. Patient continued to be stable, he was discharged to follow-up with his primary care doctor. On the day of discharge, patient was seen and examined. Denied any new complaints. No more chest pain no dizziness or palpitations. No acute events overnight. Physical Exam: Gen: Comfortable, not pale, not jaundiced, alert oriented x3 CVS:HS I +II, regular, no murmurs RESP: CTA GI: BS present and normal, nontender, no palpable organs EXT:No edema - Physical Exam Vitals/I&O's: Vital Signs Temp Pulse Resp BP Pulse Ox 98.1 F 72 14 132/67 H 98 11/27/19 08:02 11/27/19 08:02 11/27/19 08:02 11/27/19 08:02 11/27/19 08:02 Oxygen Delivery Method Room Air Weight: 90.5 kg Body Mass Index (BMI) 29.5 Finger Stick Blood Glucose 354 Intake and Output for Last 24 Hours 11/25/19 11/26/19 11/27/19 23:59 23:59 23:59 Intake Total 2435 / 2935 500 / 500 Output Total 1050 / 1500 1050 / 1050 Balance 1385 / 1435 -550 / -550 Laboratory Results 11/26/19 17:10: POC Glucose 257 H 11/26/19 21:52: POC Glucose 332 H 11/27/19 05:45: Sodium 138, Potassium 4.1, Chloride 100, Carbon Dioxide 32.0, Anion Gap 6, BUN 34 H, Creatinine 1.54 H, Estim Creat Clear Calc 50.37, Est GFR (MDRD) Af Amer 59 L, Est GFR (MDRD) Non-Af 49 L, BUN/Creatinine Ratio 22.1 H, Glucose 187 H, Calcium 9.0 11/27/19 06:07: POC Glucose 184 H 11/27/19 11:32: POC Glucose 210 H Inpatient E&M: 28502 Disch Hosp
--- NOTE | 2019-11-27 12:07 | CASEMGMT ---
STEPHANIE LEMON NOTE: STEPHANIE LEMON to room to talk w/pt. Pt sitting up in chair in room. Alert/oriented. STEWART form reviewed with pt. He denies having any questions. Form signed by pt, copy made and placed on chart, and original given to pt. He was made aware if he or his (who is coming in to pick him up now) has any questions re: this form, to ask for STEPHANIE LEMON. He voices understanding. PT/OT notes have been reviewed. PT recommends additional therapy. Discussed this with pt and he was made aware. Discussed options of HHC vs OP therapy and he states he does not want either, stating, I'm doing it myself. He states he has weights in his home that he uses and he again states, I think I will just keep doing it myself. Pt made aware, if he decides in the future, that he would like either HHC or OP therapy, to discuss this with his PCP. He voices understanding and appreciation of this information. He states he does plan on talking with his PCP about getting orders for going [facility]. He denies other needs and denies having any discharge planning concerns or needs. Gordy HARPER RN, CM
== END 2019-11-27 11:46 | disposition home or self-care (01) ==
LOC: ED 10:04 → PCU 11:19
PROVIDERS: Nurse Practitioner Family; Admitting Provider Internal Medicine; Emergency Provider Emergency Medicine; PCP Family Medicine; Visit Provider Internal Medicine
DX: R07.89 Other chest pain (principal); I25.10 Atherosclerotic heart disease of native coronary artery without angina pectoris; E11.22 Type 2 diabetes mellitus with diabetic chronic kidney disease; E11.40 Type 2 diabetes mellitus with diabetic neuropathy, unspecified; N18.3 Chronic kidney disease, stage 3 (moderate); I13.0 Hypertensive heart and chronic kidney disease with heart failure and stage 1 through stage 4 chronic kidney disease, or unspecified chronic kidney disease; R06.02 Shortness of breath; E78.5 Hyperlipidemia, unspecified; K21.9 Gastro-esophageal reflux disease without esophagitis; E11.65 Type 2 diabetes mellitus with hyperglycemia; I25.5 Ischemic cardiomyopathy; F32.9 Major depressive disorder, single episode, unspecified; I25.2 Old myocardial infarction; F41.9 Anxiety disorder, unspecified; Z79.4 Long term (current) use of insulin; Z79.899 Other long term (current) drug therapy; Z79.82 Long term (current) use of aspirin; Z95.1 Presence of aortocoronary bypass graft; Z79.02 Long term (current) use of antithrombotics/antiplatelets; Z87.891 Personal history of nicotine dependence; Z87.820 Personal history of traumatic brain injury; Z91.19 Patient's noncompliance with other medical treatment and regimen
CPT/HCPCS: 36415; 71045; 78452; 80048; 82962; 83036; 84484; 85025; 93005; 93017; 96360; 96361; 96372; 97162; 97166; 97802; 99218; 99285; A9500; J7030; A4216; G0378; J2785

== ENCOUNTER 2020-03-04 09:16 | Emergency (ER) | payer OTHER, MEDICARE, MEDICAID, SELFPAY ==
[2019-03-06 08:28] VITALS: BMI 29.0
[2019-11-26 11:25] VITALS: BMI 29.5
[2020-03-04] VITALS (7 sets, daily range): BP systolic 154–225; BP diastolic 89–105; PULSE 71–94; RESP 11–23; TEMP 36.4–36.7; O2SAT 93–98; BMI 31.1
--- NOTE | 2020-03-04 09:34 | EKG12_ITS ---
Test Reason : Blood Pressure : / mmHG Vent. Rate : 088 BPM Atrial Rate : 088 BPM P-R Int : 170 ms QRS Dur : 092 ms QT Int : 424 ms P-R-T Axes : 068 -06 054 degrees QTc Int : 513 ms Normal sinus rhythm Moderate voltage criteria for LVH, may be normal variant Inferior infarct (cited on or before 05-MAR-2019) Prolonged QT Abnormal ECG Confirmed by EDVIN TINEO, ZAK ([id number]), proposal editor SWETHA LAW ([id number]) on 03/06/2020 10:40:00 AM Referred By: CAROLE Confirmed By:ZAK PARDO MD
[2020-03-04] MEDS: Ondansetron 4 MG/2 ML Vial IV (09:59)
--- NOTE | 2020-03-04 09:59 | ED.DCSUM_ITS ---
- ER Visit Summary Date of Service: 03/04/20 Chief Complaint: Nausea and vomiting History of Present Illness: The patient is a [address] Dilia Mckeon. He reports he has nausea vomiting began 3 days ago. He has vomited multiple times. No blood in his emesis. No abdominal pain. His last bowel was yesterday. No mono medic easy. No dysuria or frequency. Patient denies sick contacts. [place] not been camping out of the country. No possible bad food exposure. Does not drink well water. No recent antibiotic use. Patient reports that he has had this a few times in the past. On review of systems patient denies any chest pain, cough, shortness of breath. He does complain of generalized weakness. Physical Examination: Vitals: Stable. Afebrile. General: Well-nourished and well-developed. Head: Normocephalic atraumatic. Neck: Supple, no lymphadenopathy. No JVD. Nontender. Cardiovascular: Regular rate and rhythm. No murmurs. Respiratory: No respiratory distress. Clear to auscultation bilaterally. Abdominal: Soft, nontender, nondistended, normal bowel sounds. No guarding, rebound, or peritoneal signs. Back: Nontender. Extremities: Nontender, no edema. Skin: Normal color, no rash. Neurologic: Alert and oriented ?3. Cranial nerves II through XII are intact. Normal strength and sensation. Psych: Normal affect. Test Results: EKG is sinus at 88 with inferior Q waves. His QTC is 513. That is the only change from November. At that time his QTC was 459. Troponin 0 0.027. UA is negative. LFTs show total bili of 1.3, alk phos of 142, AST of 13. His lipase is normal. Chem-7 shows a chloride 97, BUN 29, creatinine 1.53. CBC shows a white count 11.7 which I suspect is demargination from vomiting, 72 is 89, lymphocytes of 6. Emergency Department Course and Treatment: Patient had an IV placed. He was given Zofran IV. He said no further vomiting while here. Is been able to tolerate p.o. intake. In fact, he was given all of his morning medications which she had not taken. This includes carvedilol, Plavix, Valium, pregabalin p.o. He is kept all these down. He was also given insulin subcu and labetalol IV. Treatment Plan: Patient will be discharged with Zofran. Instructed to follow-up his primary care physician 1 to 2 days if not improving. Return to the emergency department for any worsening symptoms. Disposition: To home in improved and stable condition. Impression: 1. Vomiting. 2. Chronic renal insufficiency. This note was generated with opinions.h dictation software. It may contain incorrect words, spelling, and punctuation that were not noted in review of the chart prior to signing ED Disposition - Plan for ED Patient: Disposition: Home or Assisted Living Instructions: ED Nausea Vomiting Adult Prescriptions: Ondansetron [Zofran Odt] 4 mg PO Q8H PRN PRN #10 tab PRN Reason: Nausea Prescription Printed Referrals: Chema Mckeon DO [Primary Care Provider] - 1-2 Days if not improving
[2020-03-04 10:09] LABS: Bacteria 0 SEEN /hpf (None Seen); Mucous, Urine 0 SEEN /hpf (<or=2+); Squamous Epithelial Cells - UA 0 SEEN /hpf (0-5); White Blood Cells 0 SEEN /hpf (0-5)
[2020-03-04 10:15] LABS: Absolute Lymphocyte Count 0.72 X10^3/uL (0.83-4.51); Absolute Neutrophil Count 10.5 X10^3/uL (2.0-7.7); Basophil# 0.03 X10^3/uL; Basophil% 0.3 % (0-1); Eosinophil# 0.01 X10^3/uL; Eosinophils% 0.1 % (0-5); Hematocrit 44.2 % (40-54); Hemoglobin 14.3 g/dL (13.0-16.5); Lymphocyte # 0.72 X10^3/ul (4.0); Lymphocyte % 6.2 % (19-41); Mean Corp Hgb Conc 32.4 g/dL (32-36); Mean Corpuscular Hgb 25.4 pg (27.0-32.0); Mean Corpuscular Volume 78.4 fL (80-94); Mean Platelet Vol. 12.7 fl (6.2-12.0); Monocyte# 0.38 X10^3/uL; Monocyte% 3.2 % (0-10); NRBC Flagged by Analyzer 0 % (0-5); Neutrophil # 10.46 X10^3/uL (2.7-7.7); Neutrophil % 89.3 % (47-70); Platelet Count 162 K/mm3 (150-450); RBC Distribution Width CV 16.3 % (11.6-14.6); RBC Distribution Width SD 45.4 fl (35.1-43.9); Red Blood Count 5.64 M/mm3 (4.6-6.2); White Blood Count 11.7 K/mm3 (4.4-11.0)
[2020-03-04 10:35] LABS: AST(SGOT) 13 U/L (15-37); Alanine Aminotransfer ALT/SGPT 19 U/L (16-61); Albumin, Serum 3.8 g/dL (3.2-5.0); Alkaline Phosphatase 142 U/L (45-117); Anion Gap 12 (5-15); BUN 29 mg/dL (7-18); Calcium,Total 10.1 mg/dL (8.5-10.1); Chloride 97 mmol/L (98-107); Creatinine, Serum 1.53 mg/dL (0.70-1.30); EST Glomerular Filtration Rate 49 mL/min (>60); Est Glom Filt Rate - Afr Amer 60 mL/min (>60); Glucose 381 mg/dL (74-106); Lipase 66 U/L (73-393); Potassium 4.2 mmol/L (3.5-5.1); Protein, Total 7.8 g/dL (6.4-8.2); Sodium Level 139 mmol/L (136-145)
[2020-03-04 13:23] LABS: Color, Urine Yellow (Yellow); Glucose, Dipstick 1000 mg/dl (Normal); Leukocyte Esterase-Dipstick Negative /ul (Negative); Nitrite-Dipstick Negative (Negative); Occult Blood-Urine 50 /ul (Negative); Protein-Dipstick 500 mg/dl (Negative); Specific Gravity, Urine 1.025 (1.002-1.030); Urine Bilirubin Dipstick Negative (Negative); Urine Clarity Clear (Clear); Urine Urobilinogen Normal (Normal)
[2020-03-04] MEDS: Insulin Lispro 100 UNIT/ML INSULN.PEN 10 UNIT SC (13:30)
[2020-03-04] MEDS: Clopidogrel Bisulfate 75 MG Tablet PO (13:30)
[2020-03-04 13:31] LABS: Ketone-Dipstick 150 mg/dl (Negative)
[2020-03-04] MEDS: diazePAM 5 MG Tablet PO (13:31)
[2020-03-04] MEDS: Labetalol (Prefilled) 20 MG/4 ML IV (13:32)
[2020-03-04 13:38] LABS: Red Blood Cells-Urine 0-5 SEEN /hpf (0-5)
[2020-03-04] MEDS: Carvedilol 3.125 MG TABLET PO (13:38)
[2020-03-04] MEDS: Pregabalin 75 MG Capsule 150 MG PO (13:47)
== END 2020-03-04 15:15 | disposition home or self-care (01) ==
PROVIDERS: Emergency Provider Emergency Medicine; PCP Family Medicine
DX: R11.2 Nausea with vomiting, unspecified (principal); E11.22 Type 2 diabetes mellitus with diabetic chronic kidney disease; I12.9 Hypertensive chronic kidney disease with stage 1 through stage 4 chronic kidney disease, or unspecified chronic kidney disease; N18.9 Chronic kidney disease, unspecified; I25.10 Atherosclerotic heart disease of native coronary artery without angina pectoris; E78.00 Pure hypercholesterolemia, unspecified; Z86.73 Personal history of transient ischemic attack (TIA), and cerebral infarction without residual deficits; Z79.4 Long term (current) use of insulin; Z79.82 Long term (current) use of aspirin; Z79.899 Other long term (current) drug therapy
CPT/HCPCS: 80053; 81001; 83690; 84484; 85025; 93005; 96361; 96372; 96374; 99285; J7030; A4216; J2405

== ENCOUNTER 2020-08-24 18:03 | Emergency (ER) | payer OTHER, MEDICAID, SELFPAY ==
[2019-03-06 08:28] VITALS: BMI 29.0
[2020-03-04 09:19] VITALS: BMI 31.1
[2020-08-24 18:03] VITALS: BP 177/107
[2020-08-24 18:04] VITALS: PULSE 94; RESP 16; TEMP 36.3; O2SAT 100; BMI 31.2
--- NOTE | 2020-08-24 18:39 | EX.ED.DYSGE1 ---
HPI History of Present Illness Chief Complaint: Fatigue Detail of Chief Complaint: Nausea and vomiting Informant: patient Onset/Context/Timing Onset: Days Context: Gradual Onset Timing: Continuous Current Severity: Mild Maximum Severity: Mild Narrative Narrative: 59-year-old male extensive past medical history including coronary disease, CABG and diabetes. States that on he started having nausea and vomiting. He denies any hematemesis. He denies any fever. He denies any abdominal pain other than soreness from throwing up. He denies any no other complaints. Prior similar symptoms: Yes Recent Illness/Hospitalization: No [facility] Medical History Abdominal pain FLORY (acute kidney injury) Anxiety Arteriosclerosis of coronary artery in patient with history of myocardial infarction Back pain Bradycardia Cardiomyopathy CKD (chronic kidney disease) stage 3, GFR 30-59 ml/min CVA (cerebral vascular accident) Depression Essential hypertension GERD (gastroesophageal reflux disease) Hematochezia Hyperlipidemia Intractable nausea and vomiting Ischemic cardiomyopathy Nausea Noncompliance with diabetes treatment Nonketotic hyperglycinemia Obesity Peripheral nerve injury Polyp of colon Recurrent left knee instability Renal insufficiency Secondary hypertension STEMI (ST elevation myocardial infarction) (03/05/19) Syncope Syncope and collapse Systolic CHF Tremor Type 2 diabetes mellitus Home Medications diazepam 5 mg tablet 5 mg PO BID 02/27/19 [History Last Taken 03/19/19] duloxetine 60 mg capsule,delayed release 60 mg PO DAILY 02/27/19 [History Last Taken 03/19/19] pregabalin 150 mg capsule 150 mg PO BID 02/27/19 [History Last Taken 03/19/19] aspirin 81 mg PO DAILY@0800 03/10/19 [History Last Taken 03/19/19] pantoprazole 40 mg PO DAILY 03/10/19 [History Last Taken 03/19/19] insulin glargine 40 units SQ QHS 03/20/19 [History Last Taken 11/24/19] insulin lispro 0 units SQ TIDCM 03/20/19 [History Last Taken 03/19/19] clopidogrel 75 mg tablet 75 mg PO DAILY 08/08/19 [History Last Taken Unknown] magnesium oxide 400 mg PO BID 08/08/19 [History Last Taken Unknown] multivitamin 1 tab PO DAILY 08/08/19 [History Last Taken Unknown] carvedilol 3.125 mg tablet 3.125 mg PO BID #180 tab 09/11/19 [Rx Last Taken 11/26/19 08:00] potassium chloride 20 mEq tablet,extended release 20 meq PO DAILY #90 tab 09/11/19 [Rx Last Taken Unknown] cholecalciferol (vitamin D3) 50 mcg (2,000 unit) tablet 50 mcg PO DAILY 09/27/19 [History Last Taken Unknown] furosemide 20 mg tablet 20 mg PO DAILY 11/20/19 [History Last Taken Unknown] atorvastatin 80 mg PO QHS 11/26/19 [History Last Taken Unknown] ondansetron 4 mg PO Q8H PRN PRN #10 tab 03/04/20 [Rx Last Taken Unknown] ondansetron HCl [Zofran] 4 mg PO Q8H PRN #10 tab 08/24/20 [Rx Last Taken Unknown] Allergy/AdvReac Type Severity Reaction Status Date / Time etodolac Allergy Unknown Unknown Verified 08/24/20 18:07 nifedipine [From Adalat] Allergy Unknown Verified 08/24/20 18:07 Family History Father Heart disease Son Kidney disease Surgical History History of back surgery History of lumbar fusion History of umbilical hernia repair S/P coronary artery bypass graft x 4 (~08/03/19) Stented coronary artery (03/06/19) Social History Smoking Status: Current some day smoker tobacco type: pipe alcohol intake: never caffeine: No ROS ROS ED ROS Narrative Patient denies any recent fever, cough or shortness of breath. He had no abdominal pain until he started throwing up. Review of Systems ROS Unobtainable: Denies due to encephalopathy Constitutional Constitutional ED: Denies chills or fever(s) Eyes Eyes: Denies change in vision ENT ENT ED: Denies sore throat Cardiovascular Cardiovascular: Denies chest pain or palpitations Respiratory/Chest Respiratory/Chest: Denies cough or dyspnea Gastrointestinal Gastrointestinal: Reports nausea and vomiting; Denies abdominal pain, constipation, diarrhea or melena Genitourinary Genitourinary ED: Denies dysuria, hematuria or urinary frequency Musculoskeletal Musculoskeletal: Denies myalgias Integumentary Denies rash Neurologic Neurologic: Denies headache(s) Psychiatric Psychiatric: Denies depression Endocrine Endocrinology: Denies polyuria Allergic/Immunologic Allergic/Immunologic ED: Denies urticaria EXAM Physical Exam Narrative Exam Narrative: Older male no acute distress. Vital signs are stable afebrile. He does not look septic or toxic. H EENT exam unremarkable other mild dry mucous members. Lungs clear to auscultation. Heart regular rhythm. Abdomen soft nontender normal bowel sounds no peritoneal signs. No signs of obstruction. No pulsatile mass. Both right upper and right lower quadrant unremarkable. Patient moving all 4 extremities. No edema. Neurologically is awake alert with no focal motor deficits. Const Vital Signs: 08/24/20 18:03 08/24/20 18:04 08/24/20 18:08 Temperature 97.3 F L Temperature Source Temporal Pulse Rate 94 Respiratory Rate 16 Respiratory Pattern Normal Blood Pressure 177/107 H Blood Pressure Mean 130 Pulse Ox 100 Oxygen Delivery Method Room Air 08/24/20 20:03 Temperature Temperature Source Pulse Rate 82 Respiratory Rate 16 Respiratory Pattern Blood Pressure 156/72 H Blood Pressure Mean 100 Pulse Ox 99 Oxygen Delivery Method Room Air Positive well nourished and well developed General Appearance ED: well developed HEENT Reports dry mucous membranes Negative for trauma or tenderness Mouth ED: Yes dry mucous membranes Mouth: dry mucous membranes Eyes PERRL and EOMs intact bilaterally Neck no lymphadenopathy and supple Chest Wall inspection of chest normal Resp normal respiratory effort and clear to auscultation bilaterally Auscultation: Negative for rhonchi or wheezes Cardio regular rate, regular rhythm and no murmurs GI normal to inspection, nondistended, normoactive bowel sounds, non-tender, non-distended and no masses Auscultation: normoactive bowel sounds Palpation: soft; Negative for tender Back/Spine no CVA tenderness Extremity normal to inspection General Extremety ED: Negative for edema or tenderness General Extremity: Negative for edema Neuro oriented x3 Sensorium / Orientation: alert Sensory Exam: sensory level loss detected Motor Exam: strength 5/5 throughout Psych mental status grossly normal Skin no rashes or lesions noted MDM MDM MDM Narrative Medical decision making narrative: 59-year-old male with extensive past medical history with 3-day history of nausea and vomiting. Benign abdominal exam. Clinically looks dehydrated. We will treated with IV fluids. IV Zofran. Labs are being obtained. Repeat exam patient is doing well at 11:50 PM. He is to drink some julieta alfredo and be discharged to home after some insulin. Abdomen is currently benign on exam. Lab Data Attestation: I reviewed the patient's lab results. Lab results narrative: CBC unremarkable white count of 10. Hemoglobin 14. Chemistries unremarkable gap of 8. Chronic renal insufficiency with a BUN of 26 and creatinine 1.42 which is been seen on prior labs. LFTs basically unremarkable and a normal lipase. Glucose is elevated at 401 be given a dose of insulin here prior to discharge. Labs: Laboratory Results - last 24 hr 08/24/20 08/24/20 18:50 18:50 WBC 10.7 RBC 5.53 Hgb 14.0 Hct 43.2 MCV 78.1 L MCH 25.3 L MCHC 32.4 RDW Std Deviation 44.6 H RDW Coeff of Jr 15.9 H Plt Count 186 MPV 12.4 H Immature Gran % (Auto) 0.800 Neut % (Auto) 83.8 H Lymph % (Auto) 8.5 L [place] % (Auto) 5.6 Eos % (Auto) 0.8 Baso % (Auto) 0.5 Absolute Neuts (auto) 8.9 H Absolute Lymphs (auto) 0.91 Nucleated RBC % 0 Sodium 134 L Potassium 3.9 Chloride 98 Carbon Dioxide 28.0 Anion Gap 8 BUN 26 H Creatinine 1.42 H Estim Creat Clear Calc 54.63 Est GFR (MDRD) Af Amer 65 Est GFR (MDRD) Non-Af 54 L BUN/Creatinine Ratio 18.3 Glucose 401 H Calcium 9.7 Total Bilirubin 0.90 AST 12 L ALT 22 Alkaline Phosphatase 124 H Total Protein 7.1 Albumin 3.5 Globulin 3.6 Albumin/Globulin Ratio 1.0 Lipase 98 Discharge Plan Triage Chief Complaint: Fatigue ED Provider: Timo Banuelos Dx/Rx/DC Orders Clinical Impression: Renal insufficiency, Type 2 diabetes mellitus, Vomiting in adult, Acute hyperglycemia Instructions: ED Diabetic Hyperglycemia, ED Vomiting (Adult) Prescriptions: New ondansetron HCl [Zofran] 4 mg tablet 4 mg PO Q8H PRN (Reason: nausea and vomiting) Qty: 10 RF: 0 No Action diazepam 5 mg tablet 5 mg PO BID RF: 0 pregabalin [Lyrica] 150 mg capsule 150 mg PO BID RF: 0 duloxetine [Cymbalta] 60 mg capsule,delayed release(DR/EC) 60 mg PO DAILY RF: 0 potassium chloride 20 mEq tablet extended release 20 meq PO DAILY Qty: 90 RF: 3 carvedilol 3.125 mg tablet 3.125 mg PO BID Qty: 180 RF: 3 furosemide 20 mg tablet 20 mg PO DAILY RF: 0 cholecalciferol (vitamin D3) 50 mcg (2,000 unit) tablet 50 mcg PO DAILY RF: 0 pantoprazole 40 MG tablet 40 mg PO DAILY RF: 0 aspirin 81 MG tablet,chewable 81 mg PO DAILY@0800 RF: 0 insulin lispro 100 UNIT/ML insulin pen 0 units SQ TIDCM RF: 0 insulin glargine 100 UNIT/ML insulin pen 40 units SQ QHS RF: 0 atorvastatin 80 MG tablet 80 mg PO QHS RF: 0 ondansetron 4 MG tablet 4 mg PO Q8H PRN PRN (Reason: Nausea) Qty: 10 RF: 0 clopidogrel 75 mg tablet 75 mg PO DAILY RF: 0 magnesium oxide 400 mg magnesium capsule 400 mg PO BID RF: 0 multivitamin Tablet 1 tab PO DAILY RF: 0 Primary Care Provider: Chema Mckeon Referrals: Chema Mckeon DO [Primary Care Provider] - 2 Days Activity Restrictions/Additional Instructions: Plenty of fluids and rest. Increase diet slowly as tolerated. Watch her blood sugars closely. It was 490. Make sure you recheck it in the morning. Take your normal long-acting insulin the night. Zofran as needed for nausea. Follow-up with your primary care provider next 2 days. Return to emergency department if you are feeling worse. Disposition Disposition: Home, self care
[2020-08-24] MEDS: Ondansetron 4 MG/2 ML Vial IV (18:56)
[2020-08-24] MEDS: 0.9% Normal Saline 1,000 ML 1000 ML IV (18:56)
[2020-08-24 19:06] LABS: Absolute Lymphocyte Count 0.91 X10^3/uL (0.83-4.51); Absolute Neutrophil Count 8.9 X10^3/uL (2.0-7.7); Basophil# 0.05 X10^3/uL; Basophil% 0.5 % (0-1); Eosinophil# 0.08 X10^3/uL; Eosinophils% 0.8 % (0-5); Hematocrit 43.2 % (40-54); Lymphocyte # 0.91 X10^3/ul (0.83-4.51); Lymphocyte % 8.5 % (19-41); Mean Corp Hgb Conc 32.4 g/dL (32-36); Mean Corpuscular Hgb 25.3 pg (27.0-32.0); Mean Corpuscular Volume 78.1 fL (80-94); Mean Platelet Vol. 12.4 fl (6.2-12.0); Monocyte% 5.6 % (0-10); NRBC Flagged by Analyzer 0 % (0-5); Neutrophil # 8.92 X10^3/uL (2.7-7.7); Neutrophil % 83.8 % (47-70); Platelet Count 186 K/mm3 (150-450); RBC Distribution Width CV 15.9 % (11.6-14.6); RBC Distribution Width SD 44.6 fl (35.1-43.9); Red Blood Count 5.53 M/mm3 (4.6-6.2); White Blood Count 10.7 K/mm3 (4.4-11.0)
[2020-08-24 19:20] LABS: AST(SGOT) 12 U/L (15-37); Alanine Aminotransfer ALT/SGPT 22 U/L (16-61); Albumin, Serum 3.5 g/dL (3.2-5.0); Alkaline Phosphatase 124 U/L (45-117); Anion Gap 8 (5-15); BUN 26 mg/dL (7-18); BUN/Creat Ratio 18.3 RATIO (10-20); Calcium,Total 9.7 mg/dL (8.5-10.1); Chloride 98 mmol/L (98-107); Creatinine, Serum 1.42 mg/dL (0.70-1.30); EST Glomerular Filtration Rate 54 mL/min (>60); Est Glom Filt Rate - Afr Amer 65 mL/min (>60); Estimated Creatinine Clearance 54.63 ml/min; Globulin 3.6 g/dL (2.2-4.2); Glucose 401 mg/dL (74-106); Lipase 98 U/L (73-393); Potassium 3.9 mmol/L (3.5-5.1); Protein, Total 7.1 g/dL (6.4-8.2); Sodium Level 134 mmol/L (136-145)
[2020-08-24 20:03] VITALS: BP 156/72; PULSE 82; RESP 16; O2SAT 99
[2020-08-25] MEDS: Insulin Lispro 100 UNIT/ML INSULN.PEN 10 UNIT SC (00:16)
[2020-08-25 00:18] VITALS: BP 145/74; PULSE 84; RESP 17; O2SAT 99
[2020-08-25 00:51] LABS: Insulin 13.6 mU/L (2.6-37.6)
== END 2020-08-25 00:30 | disposition home or self-care (01) ==
PROVIDERS: Emergency Provider Emergency Medicine; PCP Family Medicine
DX: I13.0 Hypertensive heart and chronic kidney disease with heart failure and stage 1 through stage 4 chronic kidney disease, or unspecified chronic kidney disease (principal); E11.22 Type 2 diabetes mellitus with diabetic chronic kidney disease; I50.20 Unspecified systolic (congestive) heart failure; N18.30 Chronic kidney disease, stage 3 unspecified; E11.65 Type 2 diabetes mellitus with hyperglycemia; K21.9 Gastro-esophageal reflux disease without esophagitis; I25.5 Ischemic cardiomyopathy; I25.2 Old myocardial infarction; I25.10 Atherosclerotic heart disease of native coronary artery without angina pectoris; F41.9 Anxiety disorder, unspecified; I42.9 Cardiomyopathy, unspecified; F32.9 Major depressive disorder, single episode, unspecified; E78.5 Hyperlipidemia, unspecified; E66.9 Obesity, unspecified; Z68.31 Body mass index [BMI] 31.0-31.9, adult; Z86.73 Personal history of transient ischemic attack (TIA), and cerebral infarction without residual deficits; Z86.010 Personal history of colon polyps; Z91.19 Patient's noncompliance with other medical treatment and regimen; Z95.1 Presence of aortocoronary bypass graft; Z79.4 Long term (current) use of insulin; Z79.82 Long term (current) use of aspirin; Z79.899 Other long term (current) drug therapy; F17.290 Nicotine dependence, other tobacco product, uncomplicated
CPT/HCPCS: 80053; 83525; 83690; 85025; 96361; 96374; 99285; J7030; A4216; J2405

== ENCOUNTER 2020-09-12 17:55 | Inpatient (IN) | payer OTHER, MEDICARE, MEDICAID, SELFPAY ==
[2019-03-06 08:28] VITALS: BMI 29.0
[2020-09-12] VITALS (8 sets, daily range): BP systolic 155–191; BP diastolic 82–143; PULSE 73–90; RESP 16–23; TEMP 36.6–36.8; O2SAT 94–99; BMI 31.8; BMI 30.8
--- NOTE | 2020-09-12 17:59 | EKG12_ITS ---
Test Reason : Blood Pressure : / mmHG Vent. Rate : 083 BPM Atrial Rate : 083 BPM P-R Int : 148 ms QRS Dur : 098 ms QT Int : 416 ms P-R-T Axes : 071 000 085 degrees QTc Int : 488 ms Normal sinus rhythm Inferior infarct , age undetermined Abnormal ECG Confirmed by CLIF TINEO, LEONIE ([id number]), script editor MAUREEN MCKINLEY ([id number]) on 09/16/2020 10:32:24 AM Referred By: ALEJANDRA/ROYER Confirmed By:LEONIE MENEZES MD
--- NOTE | 2020-09-12 18:00 | CT_ITS ---
STUDY: CT ABDOMEN AND PELVIS WITH CONTRAST REASON FOR EXAM: Male, 59 years old. Generalized peritonitis RADIATION DOSAGE (If Supplied By Facility): CTDIvol = ( 15.75 ) mGy, DLP = ( 1180.13 ) mGycm TECHNIQUE: Transaxial images were obtained from the dome of the diaphragm to the symphysis pubis without oral contrast. IV 100mL Isovue-300 was administered. Sagittal and coronal images were reconstructed. Individualized dose optimization techniques were used for this CT. COMPARISON: None. FINDINGS: The visualized lung bases are unremarkable. The visualized portions of the heart are within normal limits. Normal liver. Normal gallbladder and extrahepatic biliary system. Normal spleen. Normal pancreas. Normal bilateral adrenal glands. Normal right kidney. Normal left kidney. Normal visualized stomach. Several prominent loops of distended small bowel are nonspecific. Normal colon. The appendix is visualized and appears normal. Normal abdominal aorta. Normal inferior vena cava. Normal retroperitoneum. Normal urinary bladder. Normal visualized prostate gland. Normal abdominal wall. There are diffuse degenerative changes of the visualized lumbar spine. Lumbosacral spinal fusion hardware. CT/Abdomen/Pelvis W IV Cont ONLY IMPRESSION: Several prominent loops of distended small bowel are nonspecific. Consider ileus versus obstruction as clinically indicated. Electronically Signed: Glenn Mays MD at 20:10 EDT Tel , Service support ,
--- NOTE | 2020-09-12 18:02 | EX.ED.DYSGE1 ---
HPI History of Present Illness Chief Complaint: Nausea/Vomiting Informant: patient and EMS Onset/Context/Timing Onset: Days (Patient reports onset of loss of appetite with nausea and vomiting 3 days ago reports significant abdominal pain today) Context: Sudden Onset Timing: Continuous (The abdominal pain has been continuous since onset) and Intermittent (The vomiting is been intermittent) Quality: Pain Location: Abdomen Current Severity: Moderate Maximum Severity: Severe Worsened by: Ambulance ride and movement Relieved by: Nothing Associated Symptoms Associated Symptoms: Shortness of breath with nausea and vomiting Narrative Narrative: Patient is a 59-year-old male who looks much older than reported age. There is history of noncompliance. Patient does admit to smoking 1 pack/day. He states he is never used alcohol. He denies drug use. He states he was seen here 1 week ago. We will need to review that record. Patient states he has had no appetite for the past several days. Has not been able to eat anything. States is unable to keep anything down. He had 1 episode of vomiting today. Apparently has vomited past several days. He states he vomited what appeared to be milk which he drank prior to vomiting. His last bowel movement was this morning and light brown in color and formed. He denies fever or chills. He denies headache. Eyes visual, ocular auditory symptoms. Denies chest discomfort. Does report shortness of breath. He denies dysuria, frequency, urgency or hematuria. Prior similar symptoms: Yes Recent Illness/Hospitalization: Yes [facility] Medical History (Updated 09/12/20 @ 20:[address] Almas Yeung MD) Abdominal pain FLORY (acute kidney injury) Anxiety Arteriosclerosis of coronary artery in patient with history of myocardial infarction Back pain Bradycardia Cardiomyopathy CKD (chronic kidney disease) stage 3, GFR 30-59 ml/min CVA (cerebral vascular accident) Depression Diabetes Essential hypertension GERD (gastroesophageal reflux disease) Hematochezia Hyperlipidemia Intractable nausea and vomiting Ischemic cardiomyopathy Nausea Noncompliance with diabetes treatment Nonketotic hyperglycinemia Obesity Peripheral nerve injury Polyp of colon Recurrent left knee instability Renal insufficiency Secondary hypertension Smoker STEMI (ST elevation myocardial infarction) (03/05/19) Syncope Syncope and collapse Systolic CHF Tremor Type 2 diabetes mellitus Home Medications diazepam 5 mg tablet 5 mg PO BID PRN 02/27/19 [History Last Taken 03/19/19] duloxetine 60 mg capsule,delayed release 60 mg PO DAILY 02/27/19 [History Last Taken 09/11/20] pregabalin 150 mg capsule 150 mg PO BID 02/27/19 [History Last Taken 09/11/20] aspirin 81 mg PO DAILY@0800 03/10/19 [History Last Taken 09/11/20] pantoprazole 40 mg PO DAILY 03/10/19 [History Last Taken 09/11/20] insulin glargine 42 units SUBCUT QHS 03/20/19 [History Last Taken 09/11/20] clopidogrel 75 mg tablet 75 mg PO DAILY 08/08/19 [History Last Taken 09/11/20] magnesium oxide 400 mg PO BID 08/08/19 [History Last Taken 09/11/20] multivitamin 1 tab PO DAILY 08/08/19 [History Last Taken Unknown] carvedilol 3.125 mg tablet 3.125 mg PO BID #180 tab 09/11/19 [Rx Last Taken 09/11/20] potassium chloride 20 mEq tablet,extended release 20 meq PO DAILY #90 tab 09/11/19 [Rx Last Taken 09/11/20] cholecalciferol (vitamin D3) 50 mcg (2,000 unit) tablet 50 mcg PO DAILY 09/27/19 [History Last Taken 09/11/20] furosemide 20 mg tablet 20 mg PO DAILY 11/20/19 [History Last Taken 09/11/20] atorvastatin 80 mg PO QHS 11/26/19 [History Last Taken 09/11/20] insulin lispro [Humalog KwikPen Insulin] unit SUBCUT TIDCM 09/12/20 [History Last Taken 09/12/20 13:00 14 units] nitroglycerin 0.4 mg SUBLINGUAL Q5M PRN 09/12/20 [History Last Taken Unknown] Allergy/AdvReac Type Severity Reaction Status Date / Time etodolac Allergy Unknown Unknown Verified 08/24/20 18:07 nifedipine [From Adalat] Allergy Unknown Verified 08/24/20 18:07 Family History Father Heart disease Son Kidney disease Surgical History (Updated 09/12/20 @ 19:22 by Sumaya Zamarripa) History of back surgery History of coronary artery stent placement History of lumbar fusion History of umbilical hernia repair Hx of CABG S/P coronary artery bypass graft x 4 (~04/23/20) Stented coronary artery (03/06/19) Social History (Updated 09/12/20 @ 18:[address] Almas Yeung MD) household members: none Smoking Status: Current some day smoker tobacco type: pipe alcohol intake: never substance use type: does not use caffeine: No ROS ROS ED Constitutional Constitutional ED: Reports chills and sweats; Denies fever(s) or subjective Eyes Eyes: Denies blurry vision, change in vision or diplopia ENT ENT ED: Denies ear pain, rhinorrhea or sore throat Cardiovascular Cardiovascular: Denies chest pain, orthopnea, palpitations or paroxysmal nocturnal dyspnea Respiratory/Chest Respiratory/Chest: Reports dyspnea and dyspnea on exertion; Denies cough, orthopnea, paroxysmal nocturnal dyspnea or sputum Gastrointestinal Gastrointestinal: Reports abdominal pain, nausea and vomiting; Denies constipation, diarrhea or melena Genitourinary Genitourinary ED: Denies dysuria, hematuria or urinary frequency Musculoskeletal Musculoskeletal: Reports back pain and other Details: The back pain is chronic. ; Denies arthralgias, myalgias or neck pain Integumentary Denies rash Neurologic Neurologic: Reports weakness; Denies headache(s) Psychiatric Psychiatric: Reports depression Endocrine Endocrinology: Denies polydipsia, polyphagia or polyuria EXAM Physical Exam Const Vital Signs: 09/12/20 17:56 09/12/20 18:57 09/12/20 19:21 Temperature 97.9 F 97.9 F 98.3 F Temperature Source Temporal Temporal Oral Pulse Rate 86 86 80 Respiratory Rate 23 H 23 H 20 H Blood Pressure 156/97 H 156/97 H 155/82 H Blood Pressure Mean 116 116 106 Pulse Ox 99 99 98 Oxygen Delivery Method Room Air Room Air Room Air Positive well nourished, well developed and unkempt General Appearance ED: unkempt, well developed, diaphoretic, pallor and other He appears pale. Capillary refill is delayed. HEENT Reports dry mucous membranes HEENT Narrative: Uvula is midline. There is no erythema or exudate. Face is symmetric. Mouth ED: Yes dry mucous membranes Mouth: dry mucous membranes Eyes PERRL and EOMs intact bilaterally General Eye ED: Negative for pale conjunctiva or scleral icterus Neck no lymphadenopathy, supple and no JVD Chest Wall inspection of chest normal and palpation of chest normal Resp normal respiratory effort and clear to auscultation bilaterally Cardio regular rate, regular rhythm, S1 normal heart sound, S2 normal heart sound and no murmurs GI no masses; Negative for hepatosplenomegaly Inspection: abdominal distention Auscultation: hypoactive bowel sounds Palpation: tender other (Throughout the abdomen), guarding other (Throughout the abdomen) and rebound tenderness present other (May be greater left lower quadrant) Rectal Exam: other Other Details: Patient has a rectus diastases. Back/Spine no CVA tenderness Cervical Spine: Negative for cervical spine tenderness Extremity Extremity Narrative: 2 mm pitting edema bilaterally General Extremety ED: Yes edema; Negative for tenderness General Extremity: edema Neuro oriented x3 and CN's II-XII intact bilaterally Sensorium / Orientation: alert Psych Appearance: unkempt Mood & Affect: depressed Skin no rashes or lesions noted General Skin Exam: pallor MDM MDM MDM Narrative Medical decision making narrative: Patient has significant abdominal findings. Need to rule out perforation, diverticulitis, ischemia and other causes. Patient will receive a fluid bolus since he has not had any in the eater for 3 days. Clinically looks dehydrated. EKG was obtained to assess for EKG changes consistent with hyperkalemia. With history of renal insufficiency in the past will obtain electrolyte panel to assess renal function as well as CO2 anion gap and glucose. CBC to assess white count and H&H since he appears pale and there is concern for infectious etiology. This may also represent DKA since he is tachypneic. Because he has peritoneal findings with a very firm abdomen a CT of the abdomen with IV contrast was ordered. P.o. contrast was not ordered since he is vomiting. Lab Data Attestation: I reviewed the patient's lab results. Labs: Laboratory Results - last 24 hr 09/12/20 09/12/20 09/12/20 18:40 18:40 18:40 WBC 9.7 RBC 5.35 Hgb 13.7 Hct 42.1 MCV 78.7 L MCH 25.6 L MCHC 32.5 RDW Std Deviation 44.3 H RDW Coeff of Jr 15.7 H Plt Count 185 MPV 12.0 Immature Gran % (Auto) 0.600 Neut % (Auto) 81.2 H Lymph % (Auto) 11.4 L [place] % (Auto) 5.5 Eos % (Auto) 0.8 Baso % (Auto) 0.5 Absolute Neuts (auto) 7.9 H Absolute Lymphs (auto) 1.11 Nucleated RBC % 0 Sodium 138 Potassium 4.0 Chloride 101 Carbon Dioxide 29.0 Anion Gap 8 BUN 21 H Creatinine 1.36 H Estim Creat Clear Calc 57.04 Est GFR (MDRD) Af Amer 68 Est GFR (MDRD) Non-Af 57 L BUN/Creatinine Ratio 15.4 Glucose 208 H Lactic Acid 2.7 H* Calcium 9.3 Total Bilirubin 1.00 Direct Bilirubin 0.25 AST 19 ALT 29 Alkaline Phosphatase 141 H Total Protein 7.2 Albumin 3.3 Globulin 3.9 Lipase 59 L Lactate is elevated. With him having peritonitis elevated lactate will obtain blood cultures and treat with Zosyn. Creatinine is elevated; however, is better than it has been. Radiography Diagnostic Testing: Radiology Impression Abdomen/Pelvis CT 09/12/20 18:00 IMPRESSION: Several prominent loops of distended small bowel are nonspecific. Consider ileus versus obstruction as clinically indicated. Electronically Signed: Glenn Mays MD at 20:10 EDT Tel , Service support , In light of peritoneal findings with nondiagnostic CAT scan and lactic acidosis, the surgeon on-call has been paged for consultation. Case was discussed with Dr. Ferrera. She will be in to see patient. She asked for patient be admitted to the hospitalist service. EKG Initial EKG: Attestation: I personally reviewed and interpreted this EKG as follows: Interpretation: Sinus Rhythm (Normal sinus rhythm with ventricular rate 83. OR interval 248 ms. QRS duration 98 ms. QT duration 416 ms. [place] is normal. There is slight J-point elevation in the inferior leads. There is no obvious ischemic changes noted.) Critical Care Time Critical Care Time: Yes Critical care time (excluding procedures): 30-74 minutes (Total time 36 minutes) Discharge Plan Triage Chief Complaint: Nausea/Vomiting ED Provider: Almas Yeung Dx/Rx/DC Orders Clinical Impression: Abdominal pain, Acidosis, lactic, Type 1 diabetes mellitus with hyperglycemia, Chronic renal insufficiency, stage II (mild), Dehydration, Vomiting Prescriptions: No Action diazepam 5 mg tablet 5 mg PO BID PRN (Reason: tremors) RF: 0 pregabalin [Lyrica] 150 mg capsule 150 mg PO BID RF: 0 duloxetine [Cymbalta] 60 mg capsule,delayed release(DR/EC) 60 mg PO DAILY RF: 0 potassium chloride 20 mEq tablet extended release 20 meq PO DAILY Qty: 90 RF: 3 carvedilol 3.125 mg tablet 3.125 mg PO BID Qty: 180 RF: 3 furosemide 20 mg tablet 20 mg PO DAILY RF: 0 cholecalciferol (vitamin D3) 50 mcg (2,000 unit) tablet 50 mcg PO DAILY RF: 0 pantoprazole 40 MG tablet 40 mg PO DAILY RF: 0 aspirin 81 MG tablet,chewable 81 mg PO DAILY@0800 RF: 0 insulin glargine 100 UNIT/ML insulin pen 42 units subcut QHS RF: 0 atorvastatin 80 MG tablet 80 mg PO QHS RF: 0 nitroglycerin 0.4 mg tablet, sublingual 0.4 mg sublingual Q5M PRN (Reason: Chest Pain) RF: 0 Humalog KwikPen Insulin 200 unit/mL (3 mL) insulin pen SUBCUT TIDCM RF: 0 clopidogrel 75 mg tablet 75 mg PO DAILY RF: 0 magnesium oxide 400 mg magnesium capsule 400 mg PO BID RF: 0 multivitamin Tablet 1 tab PO DAILY RF: 0 Primary Care Provider: Chema Mckeon Referrals: Chema Mckeon DO [Primary Care Provider] -
[2020-09-12] MEDS: Metoclopramide 10 MG/2 ML Vial 5 MG IV (18:43)
[2020-09-12] MEDS: 0.9% Normal Saline 1,000 ML 1000 ML IV (18:43)
[2020-09-12] MEDS: Morphine 4 MG/ML Syringe IV (18:43)
[2020-09-12 18:49] LABS: Absolute Lymphocyte Count 1.11 X10^3/uL (0.83-4.51); Absolute Neutrophil Count 7.9 X10^3/uL (2.0-7.7); Basophil# 0.05 X10^3/uL; Basophil% 0.5 % (0-1); Eosinophil# 0.08 X10^3/uL; Eosinophils% 0.8 % (0-5); Hematocrit 42.1 % (40-54); Hemoglobin 13.7 g/dL (13.0-16.5); Lymphocyte # 1.11 X10^3/ul (0.83-4.51); Lymphocyte % 11.4 % (19-41); Mean Corp Hgb Conc 32.5 g/dL (32-36); Mean Corpuscular Hgb 25.6 pg (27.0-32.0); Mean Corpuscular Volume 78.7 fL (80-94); Monocyte# 0.53 X10^3/uL; Monocyte% 5.5 % (0-10); NRBC Flagged by Analyzer 0 % (0-5); Neutrophil # 7.88 X10^3/uL (2.7-7.7); Neutrophil % 81.2 % (47-70); Platelet Count 185 K/mm3 (150-450); RBC Distribution Width CV 15.7 % (11.6-14.6); RBC Distribution Width SD 44.3 fl (35.1-43.9); Red Blood Count 5.35 M/mm3 (4.6-6.2); White Blood Count 9.7 K/mm3 (4.4-11.0)
[2020-09-12 19:07] LABS: AST(SGOT) 19 U/L (15-37); Alanine Aminotransfer ALT/SGPT 29 U/L (16-61); Albumin, Serum 3.3 g/dL (3.2-5.0); Alkaline Phosphatase 141 U/L (45-117); Anion Gap 8 (5-15); BUN 21 mg/dL (7-18); BUN/Creat Ratio 15.4 RATIO (10-20); Bilirubin, Direct 0.25 mg/dL (0.00-0.30); Calcium,Total 9.3 mg/dL (8.5-10.1); Chloride 101 mmol/L (98-107); Creatinine, Serum 1.36 mg/dL (0.70-1.30); EST Glomerular Filtration Rate 57 mL/min (>60); Est Glom Filt Rate - Afr Amer 68 mL/min (>60); Estimated Creatinine Clearance 57.04 ml/min; Globulin 3.9 g/dL (2.2-4.2); Glucose 208 mg/dL (74-106); Lipase 59 U/L (73-393); Protein, Total 7.2 g/dL (6.4-8.2); Sodium Level 138 mmol/L (136-145)
[2020-09-12 19:15] LABS: Lactic Acid 2.7 mmol/L (0.4-1.9)
[2020-09-12] MEDS: Lidocaine 4% 5 ML Ampul 2 ML INHALATION (20:45)
--- NOTE | 2020-09-12 21:10 | EX.PCM.CON.S ---
Assessment & Plan Assessment/Plan (1) Vomiting: (2) Abdominal pain: (3) Type 1 diabetes mellitus with hyperglycemia: PLAN: Patient currently does not have any abdominal pain on exam. Patient did refuse an NG too. Did discuss with patient that if he does continue to have nausea and vomiting would recommend NG be placed. Did review his patient CT abdomen pelvis no current indication for intervention. Patient's lactate is elevated at 2.7 however patient has been vomiting. Will hydrate patient and recheck. Marli Philip M.D. Pager: [phone] [facility] [address] [place] [address], Outpatient Pavilion, [address] [place] [id number] Office: [phone] HPI Consult Data Date of Consult: 09/13/20 HPI Narrative HPI Narrative: NELSY ROGERS, is a 59 M who presents to the ER due to nausea and vomiting x1 week abdominal pain per patient. Patient states his abdominal pain is improved he did have a lot of pain when the ER doctor was pressing on it and prior but states it is better now. Patient CT abdomen pelvis shows some prominent small bowel loops but no obvious obstruction or ileus. Patient's white blood cell counts were within normal limits, lactate is 2.7. Patient has a past medical history for diabetes he was last in the ER late August his blood sugar was almost 500 at that time. Currently it is 200 patient states he checks his blood sugar 3 times a day and it is usually 130s except for this last week when he has been throwing up. Patient's last A1c in our system was 9.8 from November 2019. He states he has been able to keep down peas and some mashed potatoes during this time. [facility] Medical History (Updated 09/12/20 @ 21:52 by Christin Tran) Abdominal pain FLORY (acute kidney injury) Anxiety Arteriosclerosis of coronary artery in patient with history of myocardial infarction Back pain Bradycardia Cardiomyopathy CKD (chronic kidney disease) stage 3, GFR 30-59 ml/min CVA (cerebral vascular accident) Depression Depression Diabetes Essential hypertension GERD (gastroesophageal reflux disease) Hematochezia Hyperlipidemia Intractable nausea and vomiting Ischemic cardiomyopathy Nausea Noncompliance with diabetes treatment Nonketotic hyperglycinemia Obesity Peripheral nerve injury Polyp of colon Recurrent left knee instability Renal insufficiency Secondary hypertension Smoker STEMI (ST elevation myocardial infarction) (03/05/19) Syncope Syncope and collapse Systolic CHF Tremor Type 2 diabetes mellitus Home Medications diazepam 5 mg tablet 5 mg PO BID PRN 02/27/19 [History Last Taken 03/19/19] duloxetine 60 mg capsule,delayed release 60 mg PO DAILY 02/27/19 [History Last Taken 09/11/20] pregabalin 150 mg capsule 150 mg PO BID 02/27/19 [History Last Taken 09/11/20] aspirin 81 mg PO DAILY@0800 03/10/19 [History Last Taken 09/11/20] pantoprazole 40 mg PO DAILY 03/10/19 [History Last Taken 09/11/20] insulin glargine 42 units SUBCUT QHS 03/20/19 [History Last Taken 09/11/20] clopidogrel 75 mg tablet 75 mg PO DAILY 08/08/19 [History Last Taken 09/11/20] magnesium oxide 400 mg PO BID 08/08/19 [History Last Taken 09/11/20] multivitamin 1 tab PO DAILY 08/08/19 [History Last Taken Unknown] carvedilol 3.125 mg tablet 3.125 mg PO BID #180 tab 09/11/19 [Rx Last Taken 09/11/20] potassium chloride 20 mEq tablet,extended release 20 meq PO DAILY #90 tab 09/11/19 [Rx Last Taken 09/11/20] cholecalciferol (vitamin D3) 50 mcg (2,000 unit) tablet 50 mcg PO DAILY 09/27/19 [History Last Taken 09/11/20] furosemide 20 mg tablet 20 mg PO DAILY 11/20/19 [History Last Taken 09/11/20] atorvastatin 80 mg PO QHS 11/26/19 [History Last Taken 09/11/20] insulin lispro [Humalog KwikPen Insulin] unit SUBCUT TIDCM 09/12/20 [History Last Taken 09/12/20 13:00 14 units] nitroglycerin 0.4 mg SUBLINGUAL Q5M PRN 09/12/20 [History Last Taken Unknown] Allergy/AdvReac Type Severity Reaction Status Date / Time etodolac Allergy Unknown Unknown Verified 08/24/20 18:07 nifedipine [From Adalat] Allergy Unknown Verified 08/24/20 18:07 Family History Father Heart disease Son Kidney disease Surgical History History of back surgery History of coronary artery stent placement History of lumbar fusion History of umbilical hernia repair Hx of CABG S/P coronary artery bypass graft x 4 (~08/03/19) Stented coronary artery (03/06/19) Social History (Updated 09/12/20 @ 18:[address] Almas Yeung MD) household members: none Smoking Status: Current some day smoker tobacco type: pipe alcohol intake: never substance use type: does not use caffeine: No ROS Constitutional Constitutional: Denies fever(s) Eyes Eyes: Denies blurry vision Cardiovascular Cardiovascular: Denies chest pain Respiratory/Chest Respiratory/Chest: Denies cough Gastrointestinal Gastrointestinal: Reports abdominal pain, nausea and vomiting; Denies constipation, diarrhea, hematemesis, hematochezia or melena Genitourinary Genitourinary: Denies dysuria Musculoskeletal Musculoskeletal: Denies joint swelling Neurologic Neurologic: Denies abnormal speech Psychiatric Psychiatric: Denies anxiety or depression Hematologic/Lymphatic Hematologic/Lymphatic: Denies easy bleeding or easy bruising Physical Exam Const alert, oriented x3 and no apparent distress HEENT normocephalic and head/scalp atraumatic Resp normal respiratory effort Cardio regular rate GI soft to palpation and non-tender; Negative for non-distended Palpation: Negative for guarding Extremity no clubbing, cyanosis or edema Neuro CN's II-XII intact bilaterally Psych mental status grossly normal Lab / Micro Data Result Diagrams: 09/13/20 05:00 09/13/20 05:00 Labs: Laboratory Results - last 24 hr 09/12/20 09/12/20 09/12/20 18:40 18:40 18:40 WBC 9.7 RBC 5.35 Hgb 13.7 Hct 42.1 MCV 78.7 L MCH 25.6 L MCHC 32.5 RDW Std Deviation 44.3 H RDW Coeff of Jr 15.7 H Plt Count 185 MPV 12.0 Immature Gran % (Auto) 0.600 Neut % (Auto) 81.2 H Lymph % (Auto) 11.4 L [place] % (Auto) 5.5 Eos % (Auto) 0.8 Baso % (Auto) 0.5 Absolute Neuts (auto) 7.9 H Absolute Lymphs (auto) 1.11 Nucleated RBC % 0 Sodium 138 Potassium 4.0 Chloride 101 Carbon Dioxide 29.0 Anion Gap 8 BUN 21 H Creatinine 1.36 H Estim Creat Clear Calc 57.04 Est GFR (MDRD) Af Amer 68 Est GFR (MDRD) Non-Af 57 L BUN/Creatinine Ratio 15.4 Glucose 208 H Lactic Acid 2.7 H* Calcium 9.3 Total Bilirubin 1.00 Direct Bilirubin 0.25 AST 19 ALT 29 Alkaline Phosphatase 141 H Total Protein 7.2 Albumin 3.3 Globulin 3.9 Lipase 59 L Radiology Impression Abdomen/Pelvis CT 09/12/20 18:00 IMPRESSION: Several prominent loops of distended small bowel are nonspecific. Consider ileus versus obstruction as clinically indicated. Electronically Signed: Glenn Mays MD at 20:10 EDT Tel , Service support , Charges/Coding Visit Charges Inpatient E&M: 97433 Init Hosp L3
--- NOTE | 2020-09-12 21:36 | HP.PCM.HOS_ITS ---
HPI - General General Date of Admission: 09/12/20 Date of Service: 09/12/20 Chief Complaint: Abdominal pain, nausea and vomiting HPI Narrative NELSY ROGERS, is a 59 M who presents to the emergency room at [facility] with a chief complaint of nausea and vomiting with abdominal discomfort. Patient states his symptoms started 3 days ago, he states she has not been able to eat anything due to nausea and vomiting. Patient denied any hematemesis or melena. Patient denied any diarrhea. He denied any fevers or chills. Work-up in the emergency room included labs which revealed a normal white blood cell count and hemoglobin, patient's chemistry profile was remarkable for creatinine of 1.36 and a BUN of 21, lactic acid was elevated at 2.7, glucose was 208. Patient's alkaline phosphatase was elevated at 141. CT of the abdomen showed distended small bowel loops which are nonspecific. Patient refused NG insertion in the emergency room, general surgery was contacted and will see the patient in consultation. Patient was admitted to PCU for possible small bowel obstruction and elevated lactic acid, he will be given IV fluids, antiemetics, and pain medication if required. ON LICENSE OF [facility] Medical History (Updated 09/12/20 @ 21:52 by Christin Tran) Abdominal pain FLORY (acute kidney injury) Anxiety Arteriosclerosis of coronary artery in patient with history of myocardial infarction Back pain Bradycardia Cardiomyopathy CKD (chronic kidney disease) stage 3, GFR 30-59 ml/min CVA (cerebral vascular accident) Depression Depression Diabetes Essential hypertension GERD (gastroesophageal reflux disease) Hematochezia Hyperlipidemia Intractable nausea and vomiting Ischemic cardiomyopathy Nausea Noncompliance with diabetes treatment Nonketotic hyperglycinemia Obesity Peripheral nerve injury Polyp of colon Recurrent left knee instability Renal insufficiency Secondary hypertension Smoker STEMI (ST elevation myocardial infarction) (03/05/19) Syncope Syncope and collapse Systolic CHF Tremor Type 2 diabetes mellitus Home Medications diazepam 5 mg tablet 5 mg PO BID PRN 02/27/19 [History Last Taken 03/19/19] duloxetine 60 mg capsule,delayed release 60 mg PO DAILY 02/27/19 [History Last Taken 09/11/20] pregabalin 150 mg capsule 150 mg PO BID 02/27/19 [History Last Taken 09/11/20] aspirin 81 mg PO DAILY@0800 03/10/19 [History Last Taken 09/11/20] pantoprazole 40 mg PO DAILY 03/10/19 [History Last Taken 09/11/20] insulin glargine 42 units SUBCUT QHS 03/20/19 [History Last Taken 09/11/20] clopidogrel 75 mg tablet 75 mg PO DAILY 08/08/19 [History Last Taken 09/11/20] magnesium oxide 400 mg PO BID 08/08/19 [History Last Taken 09/11/20] multivitamin 1 tab PO DAILY 08/08/19 [History Last Taken Unknown] carvedilol 3.125 mg tablet 3.125 mg PO BID #180 tab 09/11/19 [Rx Last Taken 09/11/20] potassium chloride 20 mEq tablet,extended release 20 meq PO DAILY #90 tab 09/11/19 [Rx Last Taken 09/11/20] cholecalciferol (vitamin D3) 50 mcg (2,000 unit) tablet 50 mcg PO DAILY 09/27/19 [History Last Taken 09/11/20] furosemide 20 mg tablet 20 mg PO DAILY 11/20/19 [History Last Taken 09/11/20] atorvastatin 80 mg PO QHS 11/26/19 [History Last Taken 09/11/20] insulin lispro [Humalog KwikPen Insulin] unit SUBCUT TIDCM 09/12/20 [History Last Taken 09/12/20 13:00 14 units] nitroglycerin 0.4 mg SUBLINGUAL Q5M PRN 09/12/20 [History Last Taken Unknown] Allergy/AdvReac Type Severity Reaction Status Date / Time etodolac Allergy Unknown Unknown Verified 08/24/20 18:07 nifedipine [From Adalat] Allergy Unknown Verified 08/24/20 18:07 Family History Father Heart disease Son Kidney disease Surgical History History of back surgery History of coronary artery stent placement History of lumbar fusion History of umbilical hernia repair Hx of CABG S/P coronary artery bypass graft x 4 (~08/03/19) Stented coronary artery (03/06/19) Social History (Updated 09/12/20 @ 18:[address] Almas Yeung MD) household members: none Smoking Status: Current some day smoker tobacco type: pipe alcohol intake: never substance use type: does not use caffeine: No ROS Constitutional Constitutional: Denies anorexia, change in weight, fever(s), night sweats or weakness Eyes Eyes: Denies blurry vision, change in vision, discharge from eye(s) or eye pain Cardiovascular Cardiovascular: Denies chest pain, claudication, dyspnea on exertion, edema or palpitations Respiratory/Chest Respiratory/Chest: Denies cough, dyspnea, hemoptysis, productive cough, shortness of breath at rest or shortness of breath with exertion Gastrointestinal Gastrointestinal: Reports abdominal pain, nausea and vomiting; Denies constipation, diarrhea, hematemesis, hematochezia or melena Genitourinary Genitourinary: Denies dysuria, hematuria, urinary frequency, urinary hesitancy, urinary incontinence or urinary urgency Musculoskeletal Musculoskeletal: Denies back pain, joint pain, joint stiffness, joint swelling, myalgias or neck pain Neurologic Neurologic: Denies abnormal gait, abnormal speech, dizziness, focal weakness, headache(s), loss of vision, numbness, other visual disturbances, paresthesias, syncope or tingling Psychiatric Psychiatric: Denies anxiety, cognitive impairment, depression, irritability, mood swings or suicidal ideation Endocrine Endocrinology: Denies change in body appearance, cold intolerance, excessive sweating, heat intolerance, polydipsia or polyuria Hematologic/Lymphatic Hematologic/Lymphatic: Denies none, anemia, easy bleeding, easy bruising or lymphadenopathy Allergic/Immunologic Allergic/Immunologic: Denies rhinitis, urticaria, eczemia or asthma Vital Signs Vital Signs Vital Signs: 09/12/20 17:56 09/12/20 18:57 09/12/20 19:21 Temperature 97.9 F 97.9 F 98.3 F Temperature Source Temporal Temporal Oral Pulse Rate 86 86 80 Respiratory Rate 23 H 23 H 20 H Respiratory Pattern Blood Pressure 156/97 H 156/97 H 155/82 H Blood Pressure Mean 116 116 106 Pulse Ox 99 99 98 Oxygen Delivery Method Room Air Room Air Room Air 09/12/20 20:45 09/12/20 20:58 Temperature 98.0 F Temperature Source Temporal Pulse Rate 90 82 Respiratory Rate 19 H 18 Respiratory Pattern Tachypnea Blood Pressure 167/104 H Blood Pressure Mean 125 Pulse Ox 99 Oxygen Delivery Method Room Air Weight Weight: 97.9 kg Body Mass Index (BMI) 31.8 Physical Exam Const alert, oriented x3, no apparent distress, average body habitus, healthy appearing and well nourished General Appearance: cooperative, well kempt and well developed Orientation / Consciousness: awake, oriented to person, oriented to place and oriented to time HEENT normocephalic and moist oral mucous membranes Eyes PERRL, EOMs intact bilaterally and conjunctivae normal Neck nuchal rigidity, supple, no JVD, thyroid normal and no carotid bruits General: trachea midline Resp normal respiratory effort, no retractions, no use of accessory muscles and clear to auscultation bilaterally Auscultation: Negative for rales, rhonchi or wheezes Cardio regular rate, regular rhythm, S1 normal heart sound, S2 normal heart sound, no murmurs, no rub, no gallops and no clicks GI normal to inspection, nondistended, normoactive bowel sounds, soft to palpation and non-distended GI Narrative: Patient had mild abdominal tenderness to palpation, there were hypoactive bowel sounds, no rebound abdominal tenderness was noted Extremity no clubbing, cyanosis or edema Skin no rashes or lesions noted General Skin Exam: no breakdown Neuro oriented x3, CN's II-XII intact bilaterally, moves all extremities, no focal motor deficits and no sensory deficits noted Sensorium / Orientation: awake and alert Speech: speech normal Psych thought process normal and affect normal Results Lab / Micro Data Result Diagrams: 09/12/20 18:40 09/12/20 18:40 Labs: Laboratory Results - last 24 hr 09/12/20 09/12/20 09/12/20 18:40 18:40 18:40 WBC 9.7 RBC 5.35 Hgb 13.7 Hct 42.1 MCV 78.7 L MCH 25.6 L MCHC 32.5 RDW Std Deviation 44.3 H RDW Coeff of Jr 15.7 H Plt Count 185 MPV 12.0 Immature Gran % (Auto) 0.600 Neut % (Auto) 81.2 H Lymph % (Auto) 11.4 L [place] % (Auto) 5.5 Eos % (Auto) 0.8 Baso % (Auto) 0.5 Absolute Neuts (auto) 7.9 H Absolute Lymphs (auto) 1.11 Nucleated RBC % 0 Sodium 138 Potassium 4.0 Chloride 101 Carbon Dioxide 29.0 Anion Gap 8 BUN 21 H Creatinine 1.36 H Estim Creat Clear Calc 57.04 Est GFR (MDRD) Af Amer 68 Est GFR (MDRD) Non-Af 57 L BUN/Creatinine Ratio 15.4 Glucose 208 H Lactic Acid 2.7 H* Calcium 9.3 Total Bilirubin 1.00 Direct Bilirubin 0.25 AST 19 ALT 29 Alkaline Phosphatase 141 H Total Protein 7.2 Albumin 3.3 Globulin 3.9 Lipase 59 L Radiology Impression Abdomen/Pelvis CT 09/12/20 18:00 IMPRESSION: Several prominent loops of distended small bowel are nonspecific. Consider ileus versus obstruction as clinically indicated. Electronically Signed: Glenn Mays MD at 20:10 EDT Tel , Service support , Assessment & Plan Assessment/Plan (1) Abdominal pain: PLAN: 1. Abdominal pain with nausea and vomiting-exact etiology unclear at this point, I talked with general surgery about the patient and they are unsure if the patient actually has a small bowel obstruction. They recommended supportive care at this point and general surgery also told the patient that if he has recurrent vomiting he will need an NG tube. #2 lactic acidosis-etiology unclear, possibly secondary to persistent nausea and vomiting, patient will receive IV fluids and antiemetics. #3 ischemic cardiomyopathy #4 type 2 diabetes #5 chronic kidney disease stage III A #6 hyperlipidemia #7 chronic anxiety disorder Charges/Coding Visit Charges Inpatient E&M: 29646 Init Hosp L3
[2020-09-12 21:55] LABS: Bedside Glucose 153 mg/dL (70-110)
[2020-09-12] MEDS: 0.9% Normal Saline 1,000 ML 150 ML IV (22:03)
[2020-09-12 22:46] LABS: Reflex Lactate? Y
[2020-09-12] MEDS: Heparin Injection (Vial) 5,000 UNIT/ML VIAL 5000 UNIT SC (22:54)
[2020-09-12 23:21] LABS: Lactic Acid 2.2 mmol/L (0.4-1.9)
[2020-09-13] VITALS (11 sets, daily range): BP systolic 142–185; BP diastolic 85–104; PULSE 82–107; RESP 16–18; TEMP 36.2–37.1; O2SAT 96–99
[2020-09-13] MEDS: Ondansetron 4 MG/2 ML Vial IV ×3 (03:57→21:25)
[2020-09-13] MEDS: Morphine 4 MG/ML Syringe IV (03:57)
[2020-09-13] MEDS: 0.9% Normal Saline 1,000 ML 150 ML IV ×3 (03:58→17:39)
--- NOTE | 2020-09-13 04:16 | MDS.RN ---
PATIENT NAUSEA AND ABDOMEN PAIN MEDICATED PER MAR. PATIENT STILL REFUSING TO HAVE NG TUBE STATES WILL NOT LET US PUT THAT IN
[2020-09-13 05:34] LABS: Absolute Lymphocyte Count 1.14 X10^3/uL (0.83-4.51); Absolute Neutrophil Count 7.1 X10^3/uL (2.0-7.7); Basophil# 0.05 X10^3/uL; Basophil% 0.5 % (0-1); Eosinophil# 0.15 X10^3/uL; Eosinophils% 1.6 % (0-5); Lymphocyte # 1.14 X10^3/ul (0.83-4.51); Lymphocyte % 12.5 % (19-41); Mean Corpuscular Hgb 24.9 pg (27.0-32.0); Mean Corpuscular Volume 80.5 fL (80-94); Mean Platelet Vol. 12.1 fl (6.2-12.0); Monocyte# 0.66 X10^3/uL; Monocyte% 7.2 % (0-10); NRBC Flagged by Analyzer 0 % (0-5); Neutrophil # 7.09 X10^3/uL (2.7-7.7); Neutrophil % 77.5 % (47-70); Platelet Count 162 K/mm3 (150-450); RBC Distribution Width CV 15.9 % (11.6-14.6); RBC Distribution Width SD 46.1 fl (35.1-43.9); Red Blood Count 5.22 M/mm3 (4.6-6.2); White Blood Count 9.2 K/mm3 (4.4-11.0)
[2020-09-13 05:41] LABS: Bedside Glucose 198 mg/dL (70-110)
[2020-09-13 05:53] LABS: ALB/GLOB Ratio 0.9 RATIO (0.9-2.4); AST(SGOT) 22 U/L (15-37); Alanine Aminotransfer ALT/SGPT 28 U/L (16-61); Albumin, Serum 3.2 g/dL (3.2-5.0); Alkaline Phosphatase 129 U/L (45-117); Anion Gap 8 (5-15); BUN 18 mg/dL (7-18); BUN/Creat Ratio 14.9 RATIO (10-20); Calcium,Total 8.8 mg/dL (8.5-10.1); Chloride 104 mmol/L (98-107); Creatinine, Serum 1.21 mg/dL (0.70-1.30); EST Glomerular Filtration Rate 65 mL/min (>60); Est Glom Filt Rate - Afr Amer 78 mL/min (>60); Estimated Creatinine Clearance 64.11 ml/min; Globulin 3.5 g/dL (2.2-4.2); Glucose 192 mg/dL (74-106); Potassium 3.9 mmol/L (3.5-5.1); Protein, Total 6.7 g/dL (6.4-8.2); Sodium Level 139 mmol/L (136-145)
--- NOTE | 2020-09-13 06:01 | RAD_ITS ---
STUDY: RADIOGRAPH- ABDOMEN/PELVIS REASON FOR EXAM: Male, 59 years old. Abdominal pain. TECHNIQUE: Supine abdominal radiographs. COMPARISON: CT abdomen pelvis 09/12/2020. FINDINGS: Mildly dilated small bowel loops with relative decompression of distal small bowel and of the large bowel similar to previous. Excreted IV contrast in the urinary bladder. Sternotomy wires and mediastinal surgical clips partially visible, laminectomy and fusion posteriorly at L4-S1. RAD/Abdomen Single View (Portable) IMPRESSION: Persistent small bowel dilation, pattern suspicious for partial or early obstruction. Ileus possible but less likely. Electronically Signed: Aaron Cook MD at 6:46 EDT Tel , Service support ,
--- NOTE | 2020-09-13 08:15 | PN.SURG_ITS ---
Subjective Subjective Patient denies any abdominal pain, states he has been having dry heaving, also states has been having flatus. Patient states he has had this off and on for 3 years. Patient is refusing for an NG tube placement. Objective Data Objective Data Vital Signs: Vital Signs Temp Pulse Resp BP Pulse Ox 98.7 F 83 16 158/100 H 98 09/13/20 04:04 09/13/20 07:00 09/13/20 04:04 09/13/20 04:04 09/13/20 04:04 Oxygen Delivery Method Room Air Weight: 208 lb 15.971 oz Body Mass Index (BMI) 30.8 Intake & Output: Intake and Output for Last 24 Hours 09/11/20 09/12/20 09/13/20 23:59 23:59 23:59 Intake Total 1110 / 1110 887.5 / 887.5 Output Total 700 / 700 Balance 1110 / 1110 187.5 / 187.5 Lab / Micro Data Result Diagrams: 09/13/20 05:00 09/13/20 05:00 Labs: Laboratory Results - last 24 hr 09/12/20 09/12/20 09/12/20 18:40 18:40 18:40 WBC 9.7 RBC 5.35 Hgb 13.7 Hct 42.1 MCV 78.7 L MCH 25.6 L MCHC 32.5 RDW Std Deviation 44.3 H RDW Coeff of Jr 15.7 H Plt Count 185 MPV 12.0 Immature Gran % (Auto) 0.600 Neut % (Auto) 81.2 H Lymph % (Auto) 11.4 L [place] % (Auto) 5.5 Eos % (Auto) 0.8 Baso % (Auto) 0.5 Absolute Neuts (auto) 7.9 H Absolute Lymphs (auto) 1.11 Nucleated RBC % 0 Sodium 138 Potassium 4.0 Chloride 101 Carbon Dioxide 29.0 Anion Gap 8 BUN 21 H Creatinine 1.36 H Estim Creat Clear Calc 57.04 Est GFR (MDRD) Af Amer 68 Est GFR (MDRD) Non-Af 57 L BUN/Creatinine Ratio 15.4 Glucose 208 H Lactic Acid 2.7 H* Calcium 9.3 Total Bilirubin 1.00 Direct Bilirubin 0.25 AST 19 ALT 29 Alkaline Phosphatase 141 H Total Protein 7.2 Albumin 3.3 Globulin 3.9 Albumin/Globulin Ratio Lipase 59 L POC Glucose 09/12/20 09/12/20 09/13/20 21:47 22:03 05:00 WBC 9.2 RBC 5.22 Hgb 13.0 Hct 42.0 MCV 80.5 MCH 24.9 L MCHC 31.0 L RDW Std Deviation 46.1 H RDW Coeff of Jr 15.9 H Plt Count 162 MPV 12.1 H Immature Gran % (Auto) 0.700 Neut % (Auto) 77.5 H Lymph % (Auto) 12.5 L [place] % (Auto) 7.2 Eos % (Auto) 1.6 Baso % (Auto) 0.5 Absolute Neuts (auto) 7.1 Absolute Lymphs (auto) 1.14 Nucleated RBC % 0 Sodium Potassium Chloride Carbon Dioxide Anion Gap BUN Creatinine Estim Creat Clear Calc Est GFR (MDRD) Af Amer Est GFR (MDRD) Non-Af BUN/Creatinine Ratio Glucose Lactic Acid 2.2 H* Calcium Total Bilirubin Direct Bilirubin AST ALT Alkaline Phosphatase Total Protein Albumin Globulin Albumin/Globulin Ratio Lipase POC Glucose 153 H 09/13/20 09/13/20 05:00 05:37 WBC RBC Hgb Hct MCV MCH MCHC RDW Std Deviation RDW Coeff of Jr Plt Count MPV Immature Gran % (Auto) Neut % (Auto) Lymph % (Auto) [place] % (Auto) Eos % (Auto) Baso % (Auto) Absolute Neuts (auto) Absolute Lymphs (auto) Nucleated RBC % Sodium 139 Potassium 3.9 Chloride 104 Carbon Dioxide 27.0 Anion Gap 8 BUN 18 Creatinine 1.21 Estim Creat Clear Calc 64.11 Est GFR (MDRD) Af Amer 78 Est GFR (MDRD) Non-Af 65 BUN/Creatinine Ratio 14.9 Glucose 192 H Lactic Acid Calcium 8.8 Total Bilirubin 1.00 Direct Bilirubin AST 22 ALT 28 Alkaline Phosphatase 129 H Total Protein 6.7 Albumin 3.2 Globulin 3.5 Albumin/Globulin Ratio 0.9 Lipase POC Glucose 198 H Radiography Diagnostic Testing: Radiology Impression Abdomen/Pelvis CT 09/12/20 18:00 IMPRESSION: Several prominent loops of distended small bowel are nonspecific. Consider ileus versus obstruction as clinically indicated. Electronically Signed: Glenn Mays MD at 20:10 EDT Tel , Service support , KUB X-Ray 09/13/20 06:01 IMPRESSION: Persistent small bowel dilation, pattern suspicious for partial or early obstruction. Ileus possible but less likely. Electronically Signed: Aaron Cook MD at 6:46 EDT Tel , Service support , Physical Exam Const alert, oriented x3 and no apparent distress HEENT normocephalic and head/scalp atraumatic Resp normal respiratory effort Cardio regular rate GI soft to palpation and non-tender; Negative for non-distended Palpation: Negative for guarding Extremity no clubbing, cyanosis or edema Neuro CN's II-XII intact bilaterally Psych mental status grossly normal Assessment & Plan Assessment/Plan (1) Vomiting: (2) Abdominal pain: (3) Type 1 diabetes mellitus with hyperglycemia: PLAN: Patient still has no abdominal pain. Patient still refusing an NG. Will small bowel follow-through however with patient's dry heaving may not be able to do it and patient is also not allowing for an NG. Discussed with patient difficult to see with going out with him that having the NG-patient stated that we could just send him home. Discussed with Dr. Bower. Patient's lactic acid did come down from 2.7-2.2 we will plan to recheck to make sure it is within normal limits likely due to dehydration. Marli Philip M.D. Pager: [phone] [facility] [address] [place] [address], [address] [place] [address] Office: [phone] Charges/Coding Visit Charges Inpatient E&M: 54419 Subs Hosp L3
[2020-09-13 09:41] LABS: Lactic Acid 1.9 mmol/L (0.4-1.9)
[2020-09-13] MEDS: Heparin Injection (Vial) 5,000 UNIT/ML VIAL 5000 UNIT SC ×2 (10:13→21:30)
--- NOTE | 2020-09-13 10:25 | CASEMGMT ---
STEPHANIE LEMON assessment: Face to Face with patient for initial transition planning/care coordination assessment. STEPHANIE LEMON introduced self and role at [facility], pt voices understanding and consents to assessment. Pt is lying in bed with occasional dry heaves on room air. Per Dr. Philip, pt is refusing NG. Pt is A/Ox4 and answers all questions appropropriately. Care providers, pharmacy, and demographics verified/updated. Presentation: N/V, SOB Admitting dx: Bowel obstruction PCP: [place] Specialists: Pt states no current specialists. Preferred Pharmacy: [facility] Insurance: MMO/[facility] Prescription Benefit: Yes Living Will/HPOA: Pt has LW/HPOA and is aware that they are on file at [facility]. Pt's and daughter are listed as HPOA. 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 Pt states has difficulty caring for self at home and would like resources for someone to come out to help him on a daily basis. Pt made aware of [facility] and resources given. Transportation: Pt states is able to drive but hasn't recently and states no transportation concerns. Pt also states that he is not able to ambulate. DME/HHC: Pt states has the following DME: cane, walker, w/c, and shower chair. Pt states sleeps in recliner at night and declines need for any further DME. Pt states that he has not been able to ambulate since his CVA/OK a year ago. Pt states has been to [facility] in the past but has not had HHC. Pt states would like to go home but does have concerns. Pt is on disability. Pt states smokes cigars but does not drink ETOH. Pt voices no further concerns/needs. CM to follow PT/OT evals and for any further discharge planning/needs. Advised pt to ask for CM if any further questions/concerns/needs arise, voices understanding. Pt Goal: Home Plan[place] STEPHANIE LEMON
--- NOTE | 2020-09-13 12:47 | PN.HOSP_ITS ---
Documented by User: Heather Mitchell NP, OB GYN PHYSICIAN ASSISTANT-C 09/13/20 12:58 Subjective Subjective Patient seen and examined. Reports nausea, no emesis. Refusing small bowel follow-through due to nausea however refusing additional antiemetic medication. Refusing NG. Denies significant abdominal pain. Objective Data Objective Data Vital Signs: Vital Signs Temp Pulse Resp BP Pulse Ox 97.9 F 92 18 174/93 H 99 09/13/20 10:00 09/13/20 11:00 09/13/20 10:00 09/13/20 10:00 09/13/20 10:00 Oxygen Delivery Method Room Air Weight: 208 lb 15.971 oz Body Mass Index (BMI) 30.8 Intake & Output: Intake and Output for Last 24 Hours 09/11/20 09/12/20 09/13/20 23:59 23:59 23:59 Intake Total 1110 / 1110 1952.5 / 1952.5 Output Total 700 / 700 Balance 1110 / 1110 1252.5 / 1252.5 Lab / Micro Data Result Diagrams: 09/13/20 05:00 09/13/20 05:00 Labs: Laboratory Results - last 24 hr 09/12/20 09/12/20 09/12/20 18:40 18:40 18:40 WBC 9.7 RBC 5.35 Hgb 13.7 Hct 42.1 MCV 78.7 L MCH 25.6 L MCHC 32.5 RDW Std Deviation 44.3 H RDW Coeff of Jr 15.7 H Plt Count 185 MPV 12.0 Immature Gran % (Auto) 0.600 Neut % (Auto) 81.2 H Lymph % (Auto) 11.4 L [place] % (Auto) 5.5 Eos % (Auto) 0.8 Baso % (Auto) 0.5 Absolute Neuts (auto) 7.9 H Absolute Lymphs (auto) 1.11 Nucleated RBC % 0 Sodium 138 Potassium 4.0 Chloride 101 Carbon Dioxide 29.0 Anion Gap 8 BUN 21 H Creatinine 1.36 H Estim Creat Clear Calc 57.04 Est GFR (MDRD) Af Amer 68 Est GFR (MDRD) Non-Af 57 L BUN/Creatinine Ratio 15.4 Glucose 208 H Lactic Acid 2.7 H* Calcium 9.3 Total Bilirubin 1.00 Direct Bilirubin 0.25 AST 19 ALT 29 Alkaline Phosphatase 141 H Total Protein 7.2 Albumin 3.3 Globulin 3.9 Albumin/Globulin Ratio Lipase 59 L POC Glucose 09/12/20 09/12/20 09/13/20 21:47 22:03 05:00 WBC 9.2 RBC 5.22 Hgb 13.0 Hct 42.0 MCV 80.5 MCH 24.9 L MCHC 31.0 L RDW Std Deviation 46.1 H RDW Coeff of Jr 15.9 H Plt Count 162 MPV 12.1 H Immature Gran % (Auto) 0.700 Neut % (Auto) 77.5 H Lymph % (Auto) 12.5 L [place] % (Auto) 7.2 Eos % (Auto) 1.6 Baso % (Auto) 0.5 Absolute Neuts (auto) 7.1 Absolute Lymphs (auto) 1.14 Nucleated RBC % 0 Sodium Potassium Chloride Carbon Dioxide Anion Gap BUN Creatinine Estim Creat Clear Calc Est GFR (MDRD) Af Amer Est GFR (MDRD) Non-Af BUN/Creatinine Ratio Glucose Lactic Acid 2.2 H* Calcium Total Bilirubin Direct Bilirubin AST ALT Alkaline Phosphatase Total Protein Albumin Globulin Albumin/Globulin Ratio Lipase POC Glucose 153 H 09/13/20 09/13/20 09/13/20 05:00 05:37 09:05 WBC RBC Hgb Hct MCV MCH MCHC RDW Std Deviation RDW Coeff of Jr Plt Count MPV Immature Gran % (Auto) Neut % (Auto) Lymph % (Auto) [place] % (Auto) Eos % (Auto) Baso % (Auto) Absolute Neuts (auto) Absolute Lymphs (auto) Nucleated RBC % Sodium 139 Potassium 3.9 Chloride 104 Carbon Dioxide 27.0 Anion Gap 8 BUN 18 Creatinine 1.21 Estim Creat Clear Calc 64.11 Est GFR (MDRD) Af Amer 78 Est GFR (MDRD) Non-Af 65 BUN/Creatinine Ratio 14.9 Glucose 192 H Lactic Acid 1.9 Calcium 8.8 Total Bilirubin 1.00 Direct Bilirubin AST 22 ALT 28 Alkaline Phosphatase 129 H Total Protein 6.7 Albumin 3.2 Globulin 3.5 Albumin/Globulin Ratio 0.9 Lipase POC Glucose 198 H Radiography Diagnostic Testing: Radiology Impression Abdomen/Pelvis CT 09/12/20 18:00 IMPRESSION: Several prominent loops of distended small bowel are nonspecific. Consider ileus versus obstruction as clinically indicated. Electronically Signed: Glenn Mays MD at 20:10 EDT Tel , Service support , KUB X-Ray 09/13/20 06:01 IMPRESSION: Persistent small bowel dilation, pattern suspicious for partial or early obstruction. Ileus possible but less likely. Electronically Signed: Aaron Cook MD at 6:46 EDT Tel , Service support , Physical Exam Const alert, oriented x3 and no apparent distress Orientation / Consciousness: awake, oriented to person, oriented to place and oriented to time HEENT normocephalic and moist oral mucous membranes Eyes PERRL, EOMs intact bilaterally and conjunctivae normal Neck no lymphadenopathy Resp normal respiratory effort and clear to auscultation bilaterally Cardio regular rate, regular rhythm and no murmurs Peripheral Pulses: pulses 2+ throughout GI normal to inspection, nondistended, normoactive bowel sounds, non-tender and non-distended Extremity normal to inspection Skin no rashes or lesions noted Lesions: no lesions Rashes: no rashes Trauma: no lacerations or abrasions Neuro CN's II-XII intact bilaterally, no focal motor deficits, no sensory deficits noted and deep tendon reflexes 2+ bilaterally Psych mental status grossly normal and affect normal Assessment & Plan Assessment/Plan (1) Vomiting: (2) Abdominal pain: PLAN: 1. Abdominal pain, nausea/vomiting-possible small bowel obstruction. General surgery consulted. Refusing small bowel follow-through as well as NG. Remain NPO. IV fluids. KUB this morning demonstrated persistent small bowel dilation with suspicious partial or early obstruction. 2. Lactic acidosis- suspect secondary to #1. No evidence of infection. Lactic acidosis resolved. 3. CAD status post angioplasty with CABG x3 07/2019/ischemic cardiomyopathy- Follows with Dr. Dobbs. Continue aspirin, Plavix, statin, beta-basilio. 4. Type 2 diabetes mellitus with wtprmcfhag-Aeum-Hnqjx with sliding scale insulin. Continue home insulin regimen. On Lyrica. 5. Chronic kidney disease stage IIIa-at baseline. 6. History of right MAGDI infarct-aspirin, statin, plavix. Residual debility with recurrent falls. PT/OT. 7. Hypertension-stable, continue carvedilol, Lasix. 8. Hyperlipidemia-continue statin. 9. Depression/anxiety-continue diazepam, duloxetine regimen. 10. GERD-continue PPI. DVT prophylaxis- Heparin sc This patient was seen by ALBIN Beard under the supervision of Dr. Bower. Documented by User: Dr. Faisal Bower MD 09/13/20 13:53 Objective Data Lab / Micro Data Result Diagrams: 09/13/20 05:00 09/13/20 05:00 Assessment & Plan Addt'l Comments This patient was seen in conjunction with ALBIN Beard . I have independently interviewed and examined the patient and reviewed pertinent historical, laboratory, and other data. Please refer to ALBIN Beard note for details of this patient's presentation, findings, and recommendations. I have reviewed ALBIN Beard note and concur with documented findings. In brief, patient is a 59-year-old gentleman who presented with nausea and vomiting. Imaging studies obtained on admission demonstrated several prominent loops of distended small bowel admitted to monitored bed for further management Physical Examination: GENERAL: cooperative HEENT: Atraumatic; EYES; Anicteric, Normal Conjunctiva NECK; supple, normal thyroid, RESPIRATORY: Diminished to auscultation CARDIOVASCULAR: Regular S1 S2, GI: Hypoactive bowel sounds : No Renal angle tenderness; EXTREMITIES: No edema, no clubbing, MUSCULOSKELETAL: no muscle waisting NEURO: Awake; SKIN: No Rash PSYCH; Flat affect Assessment: 1. Small bowel obstruction 2. Lactic acidosis secondary to small bowel obstruction 3. Diabetes mellitus type [address] segment elevation [place] status post ESTEBAN to RCA/PDA on 03/05/2019 5. Ischemic cardiomyopathy with EF of 15 to 20% 6. Dyslipidemia 7. Essential hypertension 8. 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 Chronic kidney disease stage III 10. Depression with anxiety 11. DVT prophylaxis Recommendations: 1. I have discussed the results of my overview and impressions with the patient 2. Options for management were reviewed Charges/Coding Visit Charges Inpatient E&M: 18761 Subs Hosp L3 Hospital Course Imaging Results Imaging Results: 09/13/20 06:01 Abdomen Single View (Portable) [RAD] Urgent 09/13/20 08:25 Small Bowel Series Only [RAD] Urgent Consultations Consultations: Consultations 09/12/20 20:48 Consult: General Surgery Routine Consulting Provider: Marli Philip Reason for Consult: Abdominal pain, peritonitis, lactic acidosis, ileus versus early small fadi EMERGENT Consult: Yes Notified: Yes Date Notified:: 09/12/20 Time Notified: 20:48 Method of Notification: Verbal 09/12/20 21:32 Consult: General Surgery Routine Consulting Provider: Marli Philip Reason for Consult: bowel obstruction EMERGENT Consult: No Notified: Yes Date Notified:: 09/12/20 Time Notified: 21:20 Method of Notification: Verbal Operations None
[2020-09-13] MEDS: Insulin Lispro 100 UNIT/ML INSULN.PEN SC ×3 (13:09→23:10)
[2020-09-13 13:16] LABS: Bedside Glucose 259 mg/dL (70-110)
[2020-09-13] MEDS: 0.9% Saline Lock 10 ML Syringe IV (14:54)
--- NOTE | 2020-09-13 15:09 | CASEMGMT ---
[facility] palliative screening tool completed and pt does not qualify for palliative referral at this time. SStluz BROWN CM
[2020-09-13 17:46] LABS: Bedside Glucose 266 mg/dL (70-110)
[2020-09-13] MEDS: Oxymetazoline 0.05% 1 SPRAY SPRAY.BTL 2 SPRAY NASAL (17:53)
[2020-09-13] MEDS: Lidocaine 4% 5 ML Ampul 2 ML INHALATION (17:53)
--- NOTE | 2020-09-13 18:10 | RAD_ITS ---
INDICATION: NG placement -- KUB with both diaphragms for NG/OG Verification EXAMINATION/TECHNIQUE: X-RAY - XR Abdomen 1 View COMPARISON: 09/13/2020 FINDINGS: BOWEL GAS PATTERN: Interval decrease in small bowel dilatation. FREE AIR: Not assessed on a single supine view. ORGANOMEGALY: Not seen. CALCIFICATIONS: No abnormal calcifications observed. LOWER CHEST: No acute pathology. BONES AND SOFT TISSUES: No acute pathology. OTHER: Interval placement of NG tube with tip and sidehole in the stomach. Median sternotomy wires present. Multiple mediastinal clips present. RAD/Abdomen Single View (Portable) IMPRESSION: Interval placement of NG tube with tip and sidehole in the stomach. Interval decrease in small bowel dilatation. Electronically Signed: Abraham Bennett MD at 18:53 EDT Tel , Service support ,
[2020-09-13] MEDS: hydrALAZINE 20 MG/ML Vial 10 MG IV (18:22)
[2020-09-13 23:25] LABS: Bedside Glucose 236 mg/dL (70-110)
[2020-09-14] VITALS (10 sets, daily range): BP systolic 166–187; BP diastolic 77–97; PULSE 73–118; RESP 16–18; TEMP 36.2–36.6; O2SAT 96–98
[2020-09-14] MEDS: 0.9% Normal Saline 1,000 ML 150 ML IV ×4 (00:33→21:07)
[2020-09-14] MEDS: Insulin Lispro 100 UNIT/ML INSULN.PEN SC ×4 (05:30→21:21)
--- NOTE | 2020-09-14 05:55 | RAD_ITS ---
STUDY: X-RAY - ABDOMEN/PELVIS REASON FOR EXAM: Male, 59 years old. n/v -- portable TECHNIQUE: Single AP view of the abdomen / pelvis. COMPARISON: [id number] FINDINGS: Nasogastric tube in the left upper quadrant likely in the body the stomach. There is an unremarkable bowel gas pattern. The visualized liver, spleen and kidneys are grossly normal in size and morphology. Normal soft tissue structures. Status post transpedicular fixation lower lumbar spine. RAD/Abdomen Single View (Portable) IMPRESSION: 1. Nasogastric tube in the body the stomach. 2. No bowel obstruction. Electronically Signed: Be Zarate MD at 6:47 EDT Tel , Service support ,
[2020-09-14 06:20] LABS: Bedside Glucose 221 mg/dL (70-110)
--- NOTE | 2020-09-14 09:08 | PN.SURG_ITS ---
Subjective Subjective Patient did allow the NG to be placed yesterday. Patient denies any nausea or dry heaves with NG in place. Patient still having flatus. Patient denies any abdominal pain Objective Data Objective Data Vital Signs: Vital Signs Temp Pulse Resp BP Pulse Ox 97.1 F L 96 16 168/81 H 98 09/14/20 02:55 09/14/20 07:02 09/14/20 02:55 09/14/20 02:55 09/14/20 02:55 Oxygen Delivery Method Room Air Weight: 208 lb 15.971 oz Body Mass Index (BMI) 30.8 Intake & Output: Intake and Output for Last 24 Hours 09/12/20 09/13/20 09/14/20 23:59 23:59 23:59 Intake Total 1110 / 1110 3242.5 / 3292.5 2255 / 2255 Output Total 1350 / 1950 1200 / 1200 Balance 1110 / 1110 1892.5 / 1342.5 1055 / 1055 Lab / Micro Data Result Diagrams: 09/13/20 05:00 09/13/20 05:00 Labs: Laboratory Results - last 24 hr 09/13/20 09/13/20 09/13/20 09:05 13:04 17:24 Lactic Acid 1.9 POC Glucose 259 H 266 H 09/13/20 09/14/20 23:08 05:29 Lactic Acid POC Glucose 236 H 221 H Radiography Diagnostic Testing: Radiology Impression KUB X-Ray 09/13/20 18:10 IMPRESSION: Interval placement of NG tube with tip and sidehole in the stomach. Interval decrease in small bowel dilatation. Electronically Signed: Abraham Bennett MD at 18:53 EDT Tel , Service support , KUB X-Ray 09/14/20 05:55 IMPRESSION: 1. Nasogastric tube in the body the stomach. 2. No bowel obstruction. Electronically Signed: Be Zarate MD at 6:47 EDT Tel , Service support , Physical Exam Const alert, oriented x3 and no apparent distress HEENT normocephalic and head/scalp atraumatic HEENT Narrative: NG in place Resp normal respiratory effort Cardio regular rate GI soft to palpation and non-tender; Negative for non-distended Palpation: Negative for guarding Extremity no clubbing, cyanosis or edema Neuro CN's II-XII intact bilaterally Psych mental status grossly normal Assessment & Plan Assessment/Plan (1) Vomiting: (2) Abdominal pain: (3) Type 1 diabetes mellitus with hyperglycemia: PLAN: Patient is checkup his lactate was 1.9 yesterday. Patient did allow NG tube placed denies any nausea with this in place. We will plan for modified small bowel follow-through with Gastrografin today. Patient was agreeable with plan. Marli Philip M.D. Pager: [phone] [facility] [address] [place] [address], [address] [place] [address] Office: [phone] Charges/Coding Visit Charges Inpatient E&M: 36947 Subs Hosp L2
[2020-09-14] MEDS: Heparin Injection (Vial) 5,000 UNIT/ML VIAL 5000 UNIT SC ×2 (09:39→21:17)
[2020-09-14] MEDS: hydrALAZINE 20 MG/ML Vial 10 MG IV (09:45)
--- NOTE | 2020-09-14 10:30 | RAD_ITS ---
INDICATION: sbo -- gastrograffin, portable Kub at 2hr/4hr/8hr EXAMINATION/TECHNIQUE: 120 cc Gastrografin oral contrast was administered orally via NGT to the patient. Number of Fluoroscopic Images: 3 COMPARISON: None. FINDINGS: No masses or strictures are identified. The mucosal pattern is unremarkable. There is normal motility. Reflux was not elicited. Transit time for contrast to reach the rectum is 2.5 hours. RAD/Small Bowel Series Only IMPRESSION: Normal small bowel follow through. No evidence of obstruction. Electronically Signed: Abraham Bennett MD at 16:24 EDT Tel , Service support ,
--- NOTE | 2020-09-14 11:48 | PN.HOSP_ITS ---
Documented by User: Heather Mitchell NP, CRABBING MACHINE OPERATOR-C 09/14/20 11:51 Subjective Subjective Patient seen and examined. NG placed yesterday afternoon. Patient reports improvement in nausea following NG placement. Denies abdominal pain. Amendable to modified small bowel follow-through today. Objective Data Objective Data Vital Signs: Vital Signs Temp Pulse Resp BP Pulse Ox 97.8 F 100 18 187/97 H 97 09/14/20 09:35 09/14/20 09:45 09/14/20 09:35 09/14/20 09:45 09/14/20 09:35 Oxygen Delivery Method Room Air Weight: 208 lb 15.971 oz Body Mass Index (BMI) 30.8 Intake & Output: Intake and Output for Last 24 Hours 09/12/20 09/13/20 09/14/20 23:59 23:59 23:59 Intake Total 1110 / 1110 3242.5 / 3292.5 2365 / 2365 Output Total 1350 / 1950 1200 / 1200 Balance 1110 / 1110 1892.5 / 1342.5 1165 / 1165 Lab / Micro Data Result Diagrams: 09/13/20 05:00 09/13/20 05:00 Labs: Laboratory Results - last 24 hr 09/13/20 09/13/20 09/13/20 13:04 17:24 23:08 POC Glucose 259 H 266 H 236 H 09/14/20 05:29 POC Glucose 221 H Radiography Diagnostic Testing: Radiology Impression KUB X-Ray 09/13/20 18:10 IMPRESSION: Interval placement of NG tube with tip and sidehole in the stomach. Interval decrease in small bowel dilatation. Electronically Signed: Abraham Bennett MD at 18:53 EDT Tel , Service support , KUB X-Ray 09/14/20 05:55 IMPRESSION: 1. Nasogastric tube in the body the stomach. 2. No bowel obstruction. Electronically Signed: Be Zarate MD at 6:47 EDT Tel , Service support , Physical Exam Const alert, oriented x3 and no apparent distress Orientation / Consciousness: awake, oriented to person, oriented to place and oriented to time HEENT normocephalic and moist oral mucous membranes Eyes PERRL, EOMs intact bilaterally and conjunctivae normal Neck no lymphadenopathy Resp normal respiratory effort and clear to auscultation bilaterally Cardio regular rate, regular rhythm and no murmurs Peripheral Pulses: pulses 2+ throughout GI normal to inspection, nondistended, normoactive bowel sounds, non-tender and non-distended Extremity normal to inspection Skin no rashes or lesions noted Lesions: no lesions Rashes: no rashes Trauma: no lacerations or abrasions Neuro CN's II-XII intact bilaterally, no focal motor deficits, no sensory deficits noted and deep tendon reflexes 2+ bilaterally Psych mental status grossly normal and affect normal Assessment & Plan Assessment/Plan (1) Abdominal pain: (2) Vomiting: PLAN: 1. Abdominal pain, nausea/vomiting-possible small bowel obs truction. General surgery consulted. Repeat KUB this morning shows no bowel obstruction, NG in place. Plan for small bowel follow-through per general surgery recommendations. Remain NPO pending results. 2. Lactic acidosis- suspect secondary to #1. No evidence of infection. Lactic acidosis resolved. 3. CAD status post angioplasty with CABG x3 07/2019/ischemic cardiomyopathy- Follows with Dr. Dobbs. Continue aspirin, Plavix, statin, beta-basilio. 4. Type 2 diabetes mellitus with wbjecjzgvk-Cvmb-Izwce with sliding scale insulin. Continue home insulin regimen. On Lyrica. 5. Chronic kidney disease stage IIIa-at baseline. 6. History of right MAGDI infarct-aspirin, statin, plavix. Residual debility with recurrent falls. PT/OT. 7. Hypertension-stable, continue carvedilol, Lasix. 8. Hyperlipidemia-continue statin. 9. Depression/anxiety-continue diazepam, duloxetine regimen. 10. GERD-continue PPI. DVT prophylaxis- Heparin sc This patient was seen by SANTANA BeardC under the supervision of Dr. Bower. Documented by User: Dr. Faisal Bower MD 09/14/20 12:56 Objective Data Lab / Micro Data Result Diagrams: 09/13/20 05:00 09/13/20 05:00 Assessment & Plan Addt'l Comments This patient was seen in conjunction with ALBIN Beard . I have independently interviewed and examined the patient and reviewed pertinent historical, laboratory, and other data. Please refer to ALBIN Beard note for details of this patient's presentation, findings, and recommendations. I have reviewed ALBIN Beard note and concur with documented findings. In brief, patient is a 59-year-old gentleman who presented with nausea and vomiting. Imaging studies obtained on admission demonstrated several prominent loops of distended small bowel admitted to monitored bed for further management 09/14/2020; patient nausea vomiting persisted resulting in patient finally agreeing to having an NG tube placed. Patient has had significant copious drainage from his NG tube. Subsequent evaluation with repeat imaging studies ordered Physical Examination: GENERAL: cooperative HEENT: NG tube in place EYES; Anicteric, Normal Conjunctiva NECK; supple, normal thyroid, RESPIRATORY: Diminished to auscultation CARDIOVASCULAR: Regular S1 S2, GI: Hypoactive bowel sounds : No Renal angle tenderness; EXTREMITIES: No edema, no clubbing, MUSCULOSKELETAL: no muscle waisting NEURO: Awake; SKIN: No Rash PSYCH; Flat affect Assessment: 1. Small bowel obstruction 2. Lactic acidosis secondary to small bowel obstruction 3. Diabetes mellitus type [address] segment elevation [place] status post ESTEBAN to RCA/PDA on 03/05/2019 5. Ischemic cardiomyopathy with EF of 15 to 20% 6. Dyslipidemia 7. Essential hypertension 8. 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 Chronic kidney disease stage III 10. Depression with anxiety 11. DVT prophylaxis Recommendations: 1. I have discussed the results of my overview and impressions with the patient 2. Options for management were reviewed Charges/Coding Visit Charges Inpatient E&M: 82977 Subs Hosp L3
[2020-09-14] MEDS: Ondansetron 4 MG/2 ML Vial IV (12:25)
[2020-09-14] MEDS: 0.9% Saline Lock 10 ML Syringe IV (12:38)
[2020-09-14 12:56] LABS: Bedside Glucose 292 mg/dL (70-110)
[2020-09-14 17:00] LABS: Bedside Glucose 282 mg/dL (70-110)
--- NOTE | 2020-09-14 17:27 | CM.ED ---
MEGHAN Note MEGHAN Referral: Load Mixer Reason for Referral: Directions Home Information Casemanager advised that patient could benefit from [facility] information. MEGHAN went into patient's room and provided him with handout on services from [facility]. No further issues or concerns voiced at the time. Plan: Home Nilda DAVIS
[2020-09-14] MEDS: diazePAM 5 MG Tablet PO (21:16)
[2020-09-14 21:30] LABS: Bedside Glucose 229 mg/dL (70-110)
[2020-09-15] VITALS (13 sets, daily range): BP systolic 146–174; BP diastolic 82–96; PULSE 74–103; RESP 14–20; TEMP 36.6–37; O2SAT 95–97
[2020-09-15] MEDS: Ondansetron ODT 4 MG Tablet PO ×2 (01:51→14:50)
[2020-09-15 05:41] LABS: Bedside Glucose 102 mg/dL (70-110)
--- NOTE | 2020-09-15 08:28 | PN.SURG_ITS ---
Subjective Subjective Patient small bowel follow-through did show contrast throughout the colon after 2-1/2 hours. NG was removed and patient was started on clears. Patient is tolerating clears denies any nausea this morning. Objective Data Objective Data Vital Signs: Vital Signs Temp Pulse Resp BP Pulse Ox 97.9 F 103 H 16 167/96 H 95 09/15/20 05:32 09/15/20 07:27 09/15/20 05:32 09/15/20 05:32 09/15/20 05:32 Oxygen Delivery Method Room Air Weight: 208 lb 15.971 oz Body Mass Index (BMI) 30.8 Intake & Output: Intake and Output for Last 24 Hours 09/13/20 09/14/20 09/15/20 23:59 23:59 23:59 Intake Total 3242.5 / 3292.5 5495 / 5495 987.5 / 987.5 Output Total 1350 / 1950 2600 / 2600 400 / 400 Balance 1892.5 / 1342.5 2895 / 2895 587.5 / 587.5 Lab / Micro Data Result Diagrams: 09/13/20 05:00 09/13/20 05:00 Labs: Laboratory Results - last 24 hr 09/14/20 09/14/20 09/14/20 12:48 16:56 21:20 POC Glucose 292 H 282 H 229 H 09/15/20 05:28 POC Glucose 102 Radiography Diagnostic Testing: Radiology Impression Small Bowel X-Ray 09/14/20 10:30 IMPRESSION: Normal small bowel follow through. No evidence of obstruction. Electronically Signed: Abraham Bennett MD at 16:24 EDT Tel , Service support , Physical Exam Const alert, oriented x3 and no apparent distress HEENT normocephalic and head/scalp atraumatic Resp normal respiratory effort Cardio regular rate GI soft to palpation and non-tender; Negative for non-distended Palpation: Negative for guarding Extremity no clubbing, cyanosis or edema Neuro CN's II-XII intact bilaterally Psych mental status grossly normal Assessment & Plan Assessment/Plan (1) Vomiting: (2) Abdominal pain: (3) Type 1 diabetes mellitus with hyperglycemia: PLAN: Patient tolerated clears okay to advance diet per surgery no signs of any bowel obstruction per small bowel follow-through. Marli Philip M.D. Pager: [phone] [facility] [address] [place] [address], [address] [place] [address] Office: [phone] Charges/Coding Visit Charges Inpatient E&M: 79278 Subs Hosp L2
[2020-09-15] MEDS: DULoxetine Hcl 60 MG Capsule PO (08:40)
[2020-09-15] MEDS: Heparin Injection (Vial) 5,000 UNIT/ML VIAL 5000 UNIT SC ×2 (08:40→21:27)
[2020-09-15] MEDS: Pantoprazole Sodium 40 MG Tablet PO (08:40)
--- NOTE | 2020-09-15 09:11 | PCM.DC ---
Discharge Instructions Diet Discharge Diet: Light diet - advance as tolerated Activity Discharge Activity: Return to Normal Activity Dressing / Incision Call your doctor if you observe: Inability to have a bowel movement Follow Up Care Test Results: Test results from this visit will be discussed in further detail at your follow-up appointment, if applicable. Discharge Plan Admission Admit Date/Time: 09/12/20 21:21 Primary Reason for Your Visit: Small bowel obstruction Attending Provider: Faisal Bower Primary Care Provider: Chema Mckeon Consulting Providers: Marli Philip Discharge Orders/Prescriptions Prescriptions: Continued diazepam 5 mg tablet 5 mg PO BID PRN (Reason: tremors) RF: 0 pregabalin [Lyrica] 150 mg capsule 150 mg PO BID RF: 0 duloxetine [Cymbalta] 60 mg capsule,delayed release(DR/EC) 60 mg PO DAILY RF: 0 potassium chloride 20 mEq tablet extended release 20 meq PO DAILY Qty: 90 RF: 3 carvedilol 3.125 mg tablet 3.125 mg PO BID Qty: 180 RF: 3 furosemide 20 mg tablet 20 mg PO DAILY RF: 0 cholecalciferol (vitamin D3) 50 mcg (2,000 unit) tablet 50 mcg PO DAILY RF: 0 pantoprazole 40 MG tablet 40 mg PO DAILY RF: 0 aspirin 81 MG tablet,chewable 81 mg PO DAILY@0800 RF: 0 insulin glargine 100 UNIT/ML insulin pen 42 units subcut QHS RF: 0 atorvastatin 80 MG tablet 80 mg PO QHS RF: 0 nitroglycerin 0.4 mg tablet, sublingual 0.4 mg sublingual Q5M PRN (Reason: Chest Pain) RF: 0 Humalog KwikPen Insulin 200 unit/mL (3 mL) insulin pen SUBCUT TIDCM RF: 0 clopidogrel 75 mg tablet 75 mg PO DAILY RF: 0 magnesium oxide 400 mg magnesium capsule 400 mg PO BID RF: 0 multivitamin Tablet 1 tab PO DAILY RF: 0 Referrals / Follow Up: Chema Mckeon DO [Primary Care Provider] - Disposition Disposition (needs filled in before D/C Order can be placed): Home Health Service
[2020-09-15] MEDS: Clopidogrel Bisulfate 75 MG Tablet PO (09:17)
[2020-09-15] MEDS: Carvedilol 3.125 MG TABLET PO ×2 (09:17→17:12)
[2020-09-15] MEDS: Furosemide 20 MG Tablet PO (09:17)
--- NOTE | 2020-09-15 09:27 | DS.PCM_ITS ---
Providers Date of Admission: 09/12/20 Date of Discharge: 09/15/20 Primary Care Physician: Dr. Chema Mckeon, DO Consultations 09/12/20 20:48 Consult: General Surgery Routine Consulting Provider: Marli Philip Reason for Consult: Abdominal pain, peritonitis, lactic acidosis, ileus versus early small fadi EMERGENT Consult: Yes MD Notified: Yes Date Notified:: 09/12/20 Time Notified: 20:48 Method of Notification: Verbal 09/12/20 21:32 Consult: General Surgery Routine Consulting Provider: Marli Philip Reason for Consult: bowel obstruction EMERGENT Consult: No Notified: Yes Date Notified:: 09/12/20 Time Notified: 21:20 Method of Notification: Verbal Reason For Visit: BOWEL OBSTRUCTION Diagnosis Discharge Diagnosis (1) Vomiting: Status: Acute Code(s): R11.10 - Vomiting, unspecified (2) Abdominal pain: Status: Acute Code(s): R10.9 - Unspecified abdominal pain (3) Type 1 diabetes mellitus with hyperglycemia: Status: Acute Code(s): E10.65 - Type 1 diabetes mellitus with hyperglycemia Medications at Discharge Home Medications diazepam 5 mg tablet 5 mg PO BID PRN 02/27/19 duloxetine 60 mg capsule,delayed release 60 mg PO DAILY 02/27/19 pregabalin 150 mg capsule 150 mg PO BID 02/27/19 aspirin 81 mg PO DAILY@0800 03/10/19 pantoprazole 40 mg PO DAILY 03/10/19 insulin glargine 42 units SUBCUT QHS 03/20/19 clopidogrel 75 mg tablet 75 mg PO DAILY 08/08/19 magnesium oxide 400 mg PO BID 08/08/19 multivitamin 1 tab PO DAILY 08/08/19 carvedilol 3.125 mg tablet 3.125 mg PO BID #180 tab 09/11/19 potassium chloride 20 mEq tablet,extended release 20 meq PO DAILY #90 tab 09/11/19 cholecalciferol (vitamin D3) 50 mcg (2,000 unit) tablet 50 mcg PO DAILY 09/27/19 furosemide 20 mg tablet 20 mg PO DAILY 11/20/19 atorvastatin 80 mg PO QHS 11/26/19 Humalog KwikPen Insulin unit SUBCUT TIDCM 09/12/20 nitroglycerin 0.4 mg SUBLINGUAL Q5M PRN 09/12/20 Hospital Course Operations None Procedures None Summary of Care Provided Minutes Spent on Discharge: 35 Hospital Course: Patient is a 59-year-old male admitted 09/12/2020 due to abdominal pain, nausea, vomiting. 1. Small bowel obstruction-initial CT of abdomen on admission showed nonspecific distended small bowel, ileus versus obstruction. Follow-up KUB showed early obstruction. Repeat KUB and small bowel follow-through showed no evidence of obstruction. General surgery consulted during admission. Tolerating diet. No further nausea, vomiting. Follow-up with PCP in 1 week. Advance diet as tolerated. 2. Lactic acidosis- suspect secondary to #1. No evidence of infection. Lactic acidosis resolved. 3. CAD status post angioplasty with CABG x3 07/2019/ischemic cardiomyopathy- Follows with Dr. Dobbs. Continue aspirin, Plavix, statin, beta-basilio. 4. Type 2 diabetes mellitus with neuropathy-Continue home insulin regimen. On Lyrica. 5. Chronic kidney disease stage IIIa-at baseline. 6. History of right MAGDI infarct-aspirin, statin, plavix. Residual debility with recurrent falls. HH [place]. 7. Hypertension-stable, continue carvedilol, Lasix. 8. Hyperlipidemia-continue statin. 9. Depression/anxiety-continue diazepam, duloxetine regimen. 10. GERD-continue PPI. Physical Exam Const alert, oriented x3 and no apparent distress Orientation / Consciousness: awake, oriented to person, oriented to place and oriented to time HEENT normocephalic and moist oral mucous membranes Eyes PERRL, EOMs intact bilaterally and conjunctivae normal Neck no lymphadenopathy Resp normal respiratory effort and clear to auscultation bilaterally Cardio regular rate, regular rhythm and no murmurs Peripheral Pulses: pulses 2+ throughout GI normal to inspection, nondistended, normoactive bowel sounds, non-tender and non -distended Extremity normal to inspection Skin no rashes or lesions noted Lesions: no lesions Rashes: no rashes Trauma: no lacerations or abrasions Neuro CN's II-XII intact bilaterally, no focal motor deficits, no sensory deficits noted and deep tendon reflexes 2+ bilaterally Psych mental status grossly normal and affect normal Patient seen and examined prior to discharge. Physical assessment as noted above. Patient is stable for discharge with follow up recommendations as noted above. This patient was seen by ALBIN Beard under the supervision of Dr. Bower. ABG / Lab / Microbiology Data Result Diagrams: 09/13/20 05:00 09/13/20 05:00 Laboratory: Laboratory Results - last 24 hr 09/14/20 09/14/20 09/14/20 12:48 16:56 21:20 POC Glucose 292 H 282 H 229 H 09/15/20 05:28 POC Glucose 102 Radiography Diagnostic Testing: Radiology Impression Small Bowel X-Ray 09/14/20 10:30 IMPRESSION: Normal small bowel follow through. No evidence of obstruction. Electronically Signed: Abraham Bennett MD at 16:24 EDT Tel , Service support , D/C Instructions Discharge Diet: Light diet - advance as tolerated Call your doctor if you observe: Inability to have a bowel movement Meaningful Use Info Meaningful Use Diagnoses (Choose all that apply): None applicable Discharge Plan Admission Admit Date/Time: 09/12/20 21:21 Primary Reason for Your Visit: Small bowel obstruction Attending Provider: Faisal Bower Primary Care Provider: Chema Mckeon Consulting Providers: Marli Philip Discharge Orders/Prescriptions Prescriptions: Continued diazepam 5 mg tablet 5 mg PO BID PRN (Reason: tremors) RF: 0 pregabalin [Lyrica] 150 mg capsule 150 mg PO BID RF: 0 duloxetine [Cymbalta] 60 mg capsule,delayed release(DR/EC) 60 mg PO DAILY RF: 0 potassium chloride 20 mEq tablet extended release 20 meq PO DAILY Qty: 90 RF: 3 carvedilol 3.125 mg tablet 3.125 mg PO BID Qty: 180 RF: 3 furosemide 20 mg tablet 20 mg PO DAILY RF: 0 cholecalciferol (vitamin D3) 50 mcg (2,000 unit) tablet 50 mcg PO DAILY RF: 0 pantoprazole 40 MG tablet 40 mg PO DAILY RF: 0 aspirin 81 MG tablet,chewable 81 mg PO DAILY@0800 RF: 0 insulin glargine 100 UNIT/ML insulin pen 42 units subcut QHS RF: 0 atorvastatin 80 MG tablet 80 mg PO QHS RF: 0 nitroglycerin 0.4 mg tablet, sublingual 0.4 mg sublingual Q5M PRN (Reason: Chest Pain) RF: 0 Humalog KwikPen Insulin 200 unit/mL (3 mL) insulin pen SUBCUT TIDCM RF: 0 clopidogrel 75 mg tablet 75 mg PO DAILY RF: 0 magnesium oxide 400 mg magnesium capsule 400 mg PO BID RF: 0 multivitamin Tablet 1 tab PO DAILY RF: 0 Referrals / Follow Up: Chema Mckeon DO [Primary Care Provider] - Disposition Disposition (needs filled in before D/C Order can be placed): Home Health Service
--- NOTE | 2020-09-15 10:24 | PN.HOSP_ITS ---
Documented by User: Heather Mitchell NP, [employer] 09/15/20 10:26 Subjective Subjective Patient seen and examined. Has had several bowel movements. NG removed. Tolerating diet. Plan for discharge however patient and now requesting TCU. Objective Data Objective Data Vital Signs: Vital Signs Temp Pulse Resp BP Pulse Ox 97.8 F 99 18 173/92 H 97 09/15/20 09:08 09/15/20 09:08 09/15/20 09:08 09/15/20 09:08 09/15/20 09:08 Oxygen Delivery Method Room Air Weight: 208 lb 15.971 oz Body Mass Index (BMI) 30.8 Intake & Output: Intake and Output for Last 24 Hours 09/13/20 09/14/20 09/15/20 23:59 23:59 23:59 Intake Total 3242.5 / 3292.5 5495 / 5495 987.5 / 987.5 Output Total 1350 / 1950 2600 / 2600 400 / 400 Balance 1892.5 / 1342.5 2895 / 2895 587.5 / 587.5 Lab / Micro Data Result Diagrams: 09/13/20 05:00 09/13/20 05:00 Labs: Laboratory Results - last 24 hr 09/14/20 09/14/20 09/14/20 12:48 16:56 21:20 POC Glucose 292 H 282 H 229 H 09/15/20 05:28 POC Glucose 102 Radiography Diagnostic Testing: Radiology Impression Small Bowel X-Ray 09/14/20 10:30 IMPRESSION: Normal small bowel follow through. No evidence of obstruction. Electronically Signed: Abraham Bennett MD at 16:24 EDT Tel , Service support , Physical Exam Const alert, oriented x3 and no apparent distress Orientation / Consciousness: awake, oriented to person, oriented to place and oriented to time HEENT normocephalic and moist oral mucous membranes Eyes PERRL, EOMs intact bilaterally and conjunctivae normal Neck no lymphadenopathy Resp normal respiratory effort and clear to auscultation bilaterally Cardio regular rate, regular rhythm and no murmurs Peripheral Pulses: pulses 2+ throughout GI normal to inspection, nondistended, normoactive bowel sounds, non-tender and non-distended Extremity normal to inspection Skin no rashes or lesions noted Lesions: no lesions Rashes: no rashes Trauma: no lacerations or abrasions Neuro CN's II-XII intact bilaterally, no focal motor deficits, no sensory deficits noted and deep tendon reflexes 2+ bilaterally Psych mental status grossly normal and affect normal Assessment & Plan Assessment/Plan (1) Abdominal pain: PLAN: 1. Small bowel obstruction-initial CT of abdomen on admission showed nonspecific distended small bowel, ileus versus obstruction. Follow-up KUB showed early obstruction. Repeat KUB and small bowel follow-through showed no evidence of obstruction. General surgery consulted during admission. Tolerating diet. No further nausea, vomiting. Plan for discharge home with home health however and patient are now requesting TCU/rehab. 2. Lactic acidosis- suspect secondary to #1. No evidence of infection. Lactic acidosis resolved. 3. CAD status post angioplasty with CABG x3 07/2019/ischemic cardiomyopathy- Follows with Dr. Dobbs. Continue aspirin, Plavix, statin, beta-basilio. 4. Type 2 diabetes mellitus with neuropathy-Continue home insulin regimen. On Lyrica. 5. Chronic kidney disease stage IIIa-at baseline. 6. History of right MAGDI infarct-aspirin, statin, plavix. Residual debility with recurrent falls. [place]. 7. Hypertension-stable, continue carvedilol, Lasix. 8. Hyperlipidemia-continue statin. 9. Depression/anxiety-continue diazepam, duloxetine regimen. 10. GERD-continue PPI. Discharge planning: TCU/SNF pending acceptance. This patient was seen by ALBIN Beard under the supervision of Dr. Bower. Documented by User: Dr. Faisal Bower MD 09/15/20 13:14 Objective Data Lab / Micro Data Result Diagrams: 09/13/20 05:00 09/13/20 05:00 Assessment & Plan Addt'l Comments This patient was seen in conjunction with ALBIN Beard . I have independently interviewed and examined the patient and reviewed pertinent historical, laboratory, and other data. Please refer to ALBIN Beard note for details of this patient's presentation, findings, and recommendations. I have reviewed ALBIN Beard note and concur with documented findings. In brief, patient is a 59-year-old gentleman who presented with nausea and vomiting. Imaging studies obtained on admission demonstrated several prominent loops of distended small bowel admitted to monitored bed for further management 09/14/2020; patient nausea vomiting persisted resulting in patient finally agreeing to having an NG tube placed. Patient has had significant copious drainage from his NG tube. Subsequent evaluation with repeat imaging studies ordered 09/15/2020; patient small bowel obstruction resolved. NG tube discontinued started on clear liquid. Patient also remains significantly deconditioned requested for PT OT and medical social consultant to assist with discharge planning Physical Examination: GENERAL: cooperative HEENT: NG tube in place EYES; Anicteric, Normal Conjunctiva NECK; supple, normal thyroid, RESPIRATORY: Diminished to auscultation CARDIOVASCULAR: Regular S1 S2, GI: Hypoactive bowel sounds : No Renal angle tenderness; EXTREMITIES: No edema, no clubbing, MUSCULOSKELETAL: no muscle waisting NEURO: Awake; SKIN: No Rash PSYCH; Flat affect Assessment: 1. Small bowel obstruction 2. Lactic acidosis secondary to small bowel obstruction 3. Diabetes mellitus type [address] segment elevation [place] status post ESTEBAN to RCA/PDA on 03/05/2019 5. Ischemic cardiomyopathy with EF of 15 to 20% 6. Dyslipidemia 7. Essential hypertension 8. 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 Chronic kidney disease stage III 10. Depression with anxiety 11. DVT prophylaxis 12. Physical deconditioning Recommendations: 1. I have discussed the results of my overview and impressions with the patient 2. Options for management were reviewed Charges/Coding Visit Charges Inpatient E&M: 02049 Subs Hosp L2
[2020-09-15] MEDS: Insulin Lispro 100 UNIT/ML INSULN.PEN SC ×2 (12:22→17:11)
[2020-09-15 12:30] LABS: Bedside Glucose 248 mg/dL (70-110)
[2020-09-15] MEDS: hydrALAZINE 50 MG Tablet PO ×2 (14:50→21:27)
[2020-09-15 17:25] LABS: Bedside Glucose 203 mg/dL (70-110)
[2020-09-16] VITALS (7 sets, daily range): BP systolic 150–154; BP diastolic 74–91; PULSE 80–86; RESP 14–16; TEMP 36.6–36.8; O2SAT 97–98
[2020-09-16] MEDS: Ondansetron ODT 4 MG Tablet PO (00:51)
[2020-09-16] MEDS: Insulin Lispro 100 UNIT/ML INSULN.PEN SC ×3 (00:58→11:42)
[2020-09-16 01:05] LABS: Bedside Glucose 270 mg/dL (70-110)
[2020-09-16] MEDS: hydrALAZINE 50 MG Tablet PO ×2 (06:26→13:32)
[2020-09-16 06:40] LABS: Bedside Glucose 227 mg/dL (70-110)
[2020-09-16] MEDS: Carvedilol 3.125 MG TABLET PO (08:42)
[2020-09-16] MEDS: Pantoprazole Sodium 40 MG Tablet PO (08:42)
[2020-09-16] MEDS: Aspirin 81 MG TAB.CHEW PO (08:42)
[2020-09-16] MEDS: Furosemide 20 MG Tablet PO (08:42)
[2020-09-16] MEDS: Clopidogrel Bisulfate 75 MG Tablet PO (08:43)
[2020-09-16] MEDS: Heparin Injection (Vial) 5,000 UNIT/ML VIAL 5000 UNIT SC (08:43)
[2020-09-16] MEDS: DULoxetine Hcl 60 MG Capsule PO (08:43)
--- NOTE | 2020-09-16 10:00 | DS.PCM_ITS ---
Documented by User: Heather Mitchell NP, COORDINATE MEASURING MACHINE TECHNICIAN-C 09/16/20 10:02 Providers Date of Admission: 09/12/20 Date of Discharge: 09/16/20 Primary Care Physician: Dr. Chema Mckeon, Consultations 09/12/20 20:48 Consult: General Surgery Routine Consulting Provider: Marli Philip Reason for Consult: Abdominal pain, peritonitis, lactic acidosis, ileus versus early small fadi EMERGENT Consult: Yes MD Notified: Yes Date Notified:: 09/12/20 Time Notified: 20:48 Method of Notification: Verbal 09/12/20 21:32 Consult: General Surgery Routine Consulting Provider: Marli Philip Reason for Consult: bowel obstruction EMERGENT Consult: No MD Notified: Yes Date Notified:: 09/12/20 Time Notified: 21:20 Method of Notification: Verbal Reason For Visit: BOWEL OBSTRUCTION Diagnosis Discharge Diagnosis (1) Abdominal pain: Status: Acute Code(s): R10.9 - Unspecified abdominal pain Medications at Discharge Home Medications diazepam 5 mg tablet 5 mg PO BID PRN 02/27/19 duloxetine 60 mg capsule,delayed release 60 mg PO DAILY 02/27/19 pregabalin 150 mg capsule 150 mg PO BID 02/27/19 aspirin 81 mg PO DAILY@0800 03/10/19 pantoprazole 40 mg PO DAILY 03/10/19 insulin glargine 42 units SUBCUT QHS 03/20/19 clopidogrel 75 mg tablet 75 mg PO DAILY 08/08/19 magnesium oxide 400 mg PO BID 08/08/19 multivitamin 1 tab PO DAILY 08/08/19 carvedilol 3.125 mg tablet 3.125 mg PO BID #180 tab 09/11/19 potassium chloride 20 mEq tablet,extended release 20 meq PO DAILY #90 tab 09/11/19 cholecalciferol (vitamin D3) 50 mcg (2,000 unit) tablet 50 mcg PO DAILY 09/27/19 furosemide 20 mg tablet 20 mg PO DAILY 11/20/19 atorvastatin 80 mg PO QHS 11/26/19 Humalog KwikPen Insulin unit SUBCUT TIDCM 09/12/20 nitroglycerin 0.4 mg SUBLINGUAL Q5M PRN 09/12/20 Hospital Course Operations None Procedures None Summary of Care Provided Minutes Spent on Discharge: 35 Hospital Course: Patient is a 59-year-old male admitted 09/12/2020 due to abdominal pain, nausea, vomiting. 1. Small bowel obstruction-initial CT of abdomen on admission showed nonspecific distended small bowel, ileus versus obstruction. Follow-up KUB showed early obstruction. Repeat KUB and small bowel follow-through showed no evidence of obstruction. General surgery consulted during admission. Tolerating diet. No further nausea, vomiting. Follow-up with PCP in 1 week. Advance diet as tolerated. 2. Lactic acidosis- suspect secondary to #1. No evidence of infection. Lactic acidosis resolved. 3. CAD status post angioplasty with CABG x3 07/2019/ischemic cardiomyopathy- Follows with Dr. Dobbs. Continue aspirin, Plavix, statin, beta-basilio. 4. Type 2 diabetes mellitus with neuropathy-Continue home insulin regimen. On Lyrica. 5. Chronic kidney disease stage IIIa-at baseline. 6. History of right MAGDI infarct-aspirin, statin, plavix. Residual debility with recurrent falls. Requested SNF at discharge however later declined SNF and home health/therapies. 7. Hypertension-stable, continue carvedilol, Lasix. 8. Hyperlipidemia-continue statin. 9. Depression/anxiety-continue diazepam, duloxetine regimen. 10. GERD-continue PPI. Physical Exam Const alert, oriented x3 and no apparent distress Orientation / Consciousness: awake, oriented to person, oriented to place and oriented to time HEENT normocephalic and moist oral mucous membranes Eyes PERRL, EOMs intact bilaterally and conjunctivae normal Neck no lymphadenopathy Resp normal respiratory effort and clear to auscultation bilaterally Cardio regular rate, regular rhythm and no murmurs Peripheral Pulses: pulses 2+ throughout GI normal to inspection, nondistended, normoactive bowel sounds, non-tender and non-distended Extremity normal to inspection Skin no rashes or lesions noted Lesions: no lesions Rashes: no rashes Trauma: no lacerations or abrasions Neuro CN's II-XII intact bilaterally, no focal motor deficits, no sensory deficits noted and deep tendon reflexes 2+ bilaterally Psych mental status grossly normal and affect normal Patient seen and examined prior to discharge. Physical assessment as noted above. Patient is stable for discharge with follow up recommendations as noted above. This patient was seen by ALBIN Beard under the supervision of Dr. Trejo. ABG / Lab / Microbiology Data Result Diagrams: 09/13/20 05:00 09/16/20 11:50 Laboratory: Laboratory Results - last 24 hr 09/15/20 09/15/20 09/16/20 12:20 17:09 00:57 POC Glucose 248 H 203 H 270 H 09/16/20 06:34 POC Glucose 227 H D/C Instructions Discharge Diet: Light diet - advance as tolerated Call your doctor if you observe: Inability to have a bowel movement Meaningful Use Info Meaningful Use Diagnoses (Choose all that apply): None applicable Discharge Plan Admission Admit Date/Time: 09/12/20 21:21 Primary Reason for Your Visit: Small bowel obstruction Attending Provider: Goldie Trejo Primary Care Provider: Chema Mckeon Consulting Providers: Marli Philip Instructions Additional Instructions / Restrictions: Patient Problems: Altered Health Status related to Hospitalization Patient Goals: *Optimal Level of Health *Keep Appointments *Medication Compliance *Remain Safe Discharge Orders/Prescriptions Prescriptions: Continued diazepam 5 mg tablet 5 mg PO BID PRN (Reason: tremors) RF: 0 pregabalin [Lyrica] 150 mg capsule 150 mg PO BID RF: 0 duloxetine [Cymbalta] 60 mg capsule,delayed release(DR/EC) 60 mg PO DAILY RF: 0 potassium chloride 20 mEq tablet extended release 20 meq PO DAILY Qty: 90 RF: 3 carvedilol 3.125 mg tablet 3.125 mg PO BID Qty: 180 RF: 3 furosemide 20 mg tablet 20 mg PO DAILY RF: 0 cholecalciferol (vitamin D3) 50 mcg (2,000 unit) tablet 50 mcg PO DAILY RF: 0 pantoprazole 40 MG tablet 40 mg PO DAILY RF: 0 aspirin 81 MG tablet,chewable 81 mg PO DAILY@0800 RF: 0 insulin glargine 100 UNIT/ML insulin pen 42 units subcut QHS RF: 0 atorvastatin 80 MG tablet 80 mg PO QHS RF: 0 nitroglycerin 0.4 mg tablet, sublingual 0.4 mg sublingual Q5M PRN (Reason: Chest Pain) RF: 0 Humalog KwikPen Insulin 200 unit/mL (3 mL) insulin pen SUBCUT TIDCM RF: 0 clopidogrel 75 mg tablet 75 mg PO DAILY RF: 0 magnesium oxide 400 mg magnesium capsule 400 mg PO BID RF: 0 multivitamin Tablet 1 tab PO DAILY RF: 0 Referrals / Follow Up: Chema Mckeon DO [Primary Care Provider] - 09/20/20 10:20 am (Please call to schedule follow up appointment) Disposition Disposition (needs filled in before D/C Order can be placed): Home Health Service Documented by User: Dr. Goldie Trejo MD 09/17/20 07:45 Providers Date of Admission: 09/12/20 Reason For Visit: BOWEL OBSTRUCTION Medications at Discharge Home Medications diazepam 5 mg tablet 5 mg PO BID PRN 02/27/19 duloxetine 60 mg capsule,delayed release 60 mg PO DAILY 02/27/19 pregabalin 150 mg capsule 150 mg PO BID 02/27/19 aspirin 81 mg PO DAILY@0800 03/10/19 pantoprazole 40 mg PO DAILY 03/10/19 insulin glargine 42 units SUBCUT QHS 03/20/19 clopidogrel 75 mg tablet 75 mg PO DAILY 08/08/19 magnesium oxide 400 mg PO BID 08/08/19 multivitamin 1 tab PO DAILY 08/08/19 carvedilol 3.125 mg tablet 3.125 mg PO BID #180 tab 09/11/19 potassium chloride 20 mEq tablet,extended release 20 meq PO DAILY #90 tab 09/11/19 cholecalciferol (vitamin D3) 50 mcg (2,000 unit) tablet 50 mcg PO DAILY 09/27/19 furosemide 20 mg tablet 20 mg PO DAILY 11/20/19 atorvastatin 80 mg PO QHS 11/26/19 Humalog KwikPen Insulin unit SUBCUT TIDCM 09/12/20 nitroglycerin 0.4 mg SUBLINGUAL Q5M PRN 09/12/20 ABG / Lab / Microbiology Data Result Diagrams: 09/13/20 05:00 09/16/20 11:50 Discharge Plan Admission Admit Date/Time: 09/12/20 21:21 Primary Reason for Your Visit: Small bowel obstruction Attending Provider: Goldie Trejo Primary Care Provider: Chema Mckeon Consulting Providers: Marli Philip Instructions Additional Instructions / Restrictions: Patient Problems: Altered Health Status related to Hospitalization Patient Goals: *Optimal Level of Health *Keep Appointments *Medication Compliance *Remain Safe Discharge Orders/Prescriptions Prescriptions: Continued diazepam 5 mg tablet 5 mg PO BID PRN (Reason: tremors) RF: 0 pregabalin [Lyrica] 150 mg capsule 150 mg PO BID RF: 0 duloxetine [Cymbalta] 60 mg capsule,delayed release(DR/EC) 60 mg PO DAILY RF: 0 potassium chloride 20 mEq tablet extended release 20 meq PO DAILY Qty: 90 RF: 3 carvedilol 3.125 mg tablet 3.125 mg PO BID Qty: 180 RF: 3 furosemide 20 mg tablet 20 mg PO DAILY RF: 0 cholecalciferol (vitamin D3) 50 mcg (2,000 unit) tablet 50 mcg PO DAILY RF: 0 pantoprazole 40 MG tablet 40 mg PO DAILY RF: 0 aspirin 81 MG tablet,chewable 81 mg PO DAILY@0800 RF: 0 insulin glargine 100 UNIT/ML insulin pen 42 units subcut QHS RF: 0 atorvastatin 80 MG tablet 80 mg PO QHS RF: 0 nitroglycerin 0.4 mg tablet, sublingual 0.4 mg sublingual Q5M PRN (Reason: Chest Pain) RF: 0 Humalog KwikPen Insulin 200 unit/mL (3 mL) insulin pen SUBCUT TIDCM RF: 0 clopidogrel 75 mg tablet 75 mg PO DAILY RF: 0 magnesium oxide 400 mg magnesium capsule 400 mg PO BID RF: 0 multivitamin Tablet 1 tab PO DAILY RF: 0 Referrals / Follow Up: Chema Mckeon DO [Primary Care Provider] - 09/20/20 10:20 am (Please call to schedule follow up appointment) Disposition Disposition (needs filled in before D/C Order can be placed): Home Health Serv ice Charges/Coding Addendum Addendum: This patient was seen in conjunction with Heather Mitchell. I have independently interviewed and examined the patient and reviewed pertinent historical, laboratory, and other data. I have reviewed her note and concur with her documentation 59-year-old male with multiple comorbidities who comes in with abdominal pain, nausea and vomiting. Patient's admitting CT of the abdomen showed distended small bowel loops. His admitting blood work was significant for creatinine of 1.36 and BUN 21. Lactic acid was 2.7. Patient refused an NG tube insertion in the ED. General surgery was consulted. He was managed conservatively Patient tolerated the advancement in his diet. Lactic acid was resolved. No signs of infection. He was continued on the rest of his home medication. His home Lantus were held while he was n.p.o. These were resumed at discharge. Patient was asked to follow-up with his primary care doctor within a week. Physical Exam: Vitals: Gen: Comfortable, not pale, not jaundiced CVS:HS I +II, regular, no murmurs RESP: CTA GI: BS present and normal, soft, nontender, no palpable organs EXT:No edema Visit Charges Inpatient E&M: 00371 Disch Hosp
--- NOTE | 2020-09-16 10:12 | NURSING ---
RNCM Note: Discharge canceled yesterday 09.15.20 d/t patient wanting SNF. Patient now wanting to return home with and this technical document writer presented to bedside to offer HHC and patient declined with plan for neighbor to help his . No further RNCM needs identified. Jose Alberto Keene, STEPHANIECM
[2020-09-16 12:26] LABS: Bedside Glucose 437 mg/dL (70-110)
[2020-09-16 12:31] LABS: Anion Gap 9 (5-15); BUN 19 mg/dL (7-18); BUN/Creat Ratio 13.9 RATIO (10-20); Calcium,Total 8.2 mg/dL (8.5-10.1); Chloride 94 mmol/L (98-107); Creatinine, Serum 1.37 mg/dL (0.70-1.30); EST Glomerular Filtration Rate 56 mL/min (>60); Est Glom Filt Rate - Afr Amer 68 mL/min (>60); Estimated Creatinine Clearance 56.62 ml/min; Glucose 491 mg/dL (74-106); Potassium 3.2 mmol/L (3.5-5.1); Sodium Level 132 mmol/L (136-145)
[2020-09-16] MEDS: Potassium Chloride Oral Tablet 20 MEQ 40 MEQ PO (13:31)
--- NOTE | 2020-09-17 12:48 | CASEMGMT ---
STEPHANIE LEMON Discharge Follow Up Phone Call: HUYEN: Alberto Strata:3 Call Date: 09.17.20 Discharge Date: 09.16.20 Time of Call:1245 Duration:3 min Admitting Dx: bowel obstruction STEPHANIE LEMON completed follow up phone call after recent hospitalization. Pt states he is doing well, states his stomach and throat hurts some. He states he is able to eat soft foods. His neighbor is checking in on him as his works. Pt has follow up appt with on Wednesday. Pt denies questions or concerns regarding his medications or discharge instructions.
== END 2020-09-16 14:00 | disposition home health service (06) | DRG 388 ==
LOC: ED 18:08 → PCU 21:26
PROVIDERS: Internal Medicine; Nurse Practitioner Family; Surgery; Admitting Provider Internal Medicine; Emergency Provider Emergency Medicine; PCP Family Medicine; Visit Provider Internal Medicine
DX: K56.609 Unspecified intestinal obstruction, unspecified as to partial versus complete obstruction (principal); I63.521 Cerebral infarction due to unspecified occlusion or stenosis of right anterior cerebral artery; E87.2 Acidosis; I25.10 Atherosclerotic heart disease of native coronary artery without angina pectoris; Z95.5 Presence of coronary angioplasty implant and graft; Z95.1 Presence of aortocoronary bypass graft; I25.5 Ischemic cardiomyopathy; E10.40 Type 1 diabetes mellitus with diabetic neuropathy, unspecified; N18.31 Chronic kidney disease, stage 3a; E10.22 Type 1 diabetes mellitus with diabetic chronic kidney disease; E78.5 Hyperlipidemia, unspecified; K21.9 Gastro-esophageal reflux disease without esophagitis; F41.9 Anxiety disorder, unspecified; F32.9 Major depressive disorder, single episode, unspecified; I69.398 Other sequelae of cerebral infarction; Z79.4 Long term (current) use of insulin; Z79.899 Other long term (current) drug therapy; E10.65 Type 1 diabetes mellitus with hyperglycemia; E86.0 Dehydration; F17.290 Nicotine dependence, other tobacco product, uncomplicated; I12.9 Hypertensive chronic kidney disease with stage 1 through stage 4 chronic kidney disease, or unspecified chronic kidney disease; I25.2 Old myocardial infarction
CPT/HCPCS: 36415; 74018; 74177; 74250; 80048; 80053; 80076; 82962; 83605; 83690; 85025; 93005; 94640; 97110; 97162; 97166; 97530; 97535; 97802; 99285; J7030; Q9967; A4216; J2405

== ENCOUNTER 2021-01-03 12:42 | Emergency (ER) | payer OTHER, MEDICARE, MEDICAID, SELFPAY ==
[2019-03-06 08:28] VITALS: BMI 29.0
[2021-01-03 12:43] VITALS: BP 152/120; PULSE 100; RESP 14; TEMP 36.1; O2SAT 99; BMI 29.5
[2021-01-03 14:23] VITALS: BP 109/80
--- NOTE | 2021-01-03 14:45 | EDS_ITS ---
HPI History of Present Illness Chief Complaint: Fall Detail of Chief Complaint: Injury to anterior right chest after fall Informant: patient and EMS Onset/Context/Timing Onset: Hours Mechanism/Context: Blunt Injury and Fall (Getting into wheelchair) Quality of Pain: Dull and Aching Location: Anterior right chest midclavicular line ribs 6 through 9 Current Severity: Mild Maximum Severity: Moderate Worsened by: Movement and deep breathing Relieved by: Remaining still Associated Symptoms Associated Symptoms: Negative for Parasthesias, Weakness, Loss of function, Inability to ambulate and Loss of consciousness Narrative Narrative: Patient is a 60-year-old male with multiple medical problems. He fell get into his wheelchair. He sustained trauma to his anterior right chest mid clavicular line ribs 6 through 9. He reports pain with movement and deep breathing. He denies head trauma. Denies neck pain. He has neuropathy right upper extremity and has residual effects of right hemispheric stroke on the left. Patient also is noted to have an emesis bag. He states has been vomiting for the past 4 days. He denies history of gastroparesis. He denies fever, chills night sweats. He denies dysuria, frequency, urgency or hematuria. He denies any leg pain, ankle pain, knee pain or hip pain. He denies low back pain. He denies hematemesis. Tetanus Immunization: 5-10 years Prior similar symptoms: No Recent Illness/Hospitalization: No PFSH PFSH Medical History Abdominal pain FLORY (acute kidney injury) Anxiety Arteriosclerosis of coronary artery in patient with history of myocardial infarction Back pain Bradycardia Cardiomyopathy CKD (chronic kidney disease) stage 3, GFR 30-59 ml/min CVA (cerebral vascular accident) Depression Depression Diabetes Essential hypertension GERD (gastroesophageal reflux disease) Hematochezia Hyperlipidemia Intractable nausea and vomiting Ischemic cardiomyopathy Nausea Noncompliance with diabetes treatment Nonketotic hyperglycinemia Obesity Peripheral nerve injury Polyp of colon Recurrent left knee instability Renal insufficiency Secondary hypertension Smoker STEMI (ST elevation myocardial infarction) (03/05/19) Syncope Syncope and collapse Systolic CHF Tremor Type 2 diabetes mellitus Home Medications diazepam 5 mg tablet 5 mg PO BID PRN 02/27/19 [History Last Taken 03/19/19] duloxetine 60 mg capsule,delayed release 60 mg PO DAILY 02/27/19 [History Last Taken 09/11/20] pregabalin 150 mg capsule 150 mg PO BID 02/27/19 [History Last Taken 09/11/20] aspirin 81 mg PO DAILY@0800 03/10/19 [History Last Taken 09/11/20] pantoprazole 40 mg PO DAILY 03/10/19 [History Last Taken 09/11/20] insulin glargine 42 units SUBCUT QHS 03/20/19 [History Last Taken 09/11/20] clopidogrel 75 mg tablet 75 mg PO DAILY 08/08/19 [History Last Taken 09/11/20] magnesium oxide 400 mg PO BID 08/08/19 [History Last Taken 09/11/20] multivitamin 1 tab PO DAILY 08/08/19 [History Last Taken Unknown] potassium chloride 20 mEq tablet,extended release 20 meq PO DAILY #90 tab 09/11/19 [Rx Last Taken 09/11/20] cholecalciferol (vitamin D3) 50 mcg (2,000 unit) tablet 50 mcg PO DAILY 09/27/19 [History Last Taken 09/11/20] furosemide 20 mg tablet 20 mg PO DAILY 11/20/19 [History Last Taken 09/11/20] atorvastatin 80 mg PO QHS 11/26/19 [History Last Taken 09/11/20] Humalog KwikPen Insulin unit SUBCUT TIDCM 09/12/20 [History Last Taken 09/12/20 13:00 14 units] nitroglycerin 0.4 mg SUBLINGUAL Q5M PRN 09/12/20 [History Last Taken Unknown] carvedilol 3.125 mg tablet 3.125 mg PO BID #180 tab 10/02/20 [Rx Last Taken Unknown] metronidazole 500 mg PO Q8H #21 tab 01/03/21 [Rx Last Taken Unknown] Allergy/AdvReac Type Severity Reaction Status Date / Time etodolac Allergy Unknown Unknown Verified 01/03/21 12:43 nifedipine [From Adalat] Allergy Unknown Verified 01/03/21 12:43 Family History Father Heart disease Son Kidney disease Surgical History History of back surgery History of coronary artery stent placement History of lumbar fusion History of umbilical hernia repair Hx of CABG S/P coronary artery bypass graft x 4 (~08/03/19) Stented coronary artery (03/06/19) Social History household members: spouse Smoking Status: Current some day smoker tobacco type: pipe alcohol intake: never substance use type: does not use caffeine: No ROS ROS ED Constitutional Constitutional ED: Denies chills, fever(s), subjective or sweats Eyes Eyes: Denies blurry vision or change in vision ENT ENT ED: Denies ear pain, rhinorrhea or sore throat Cardiovascular Cardiovascular: Reports chest pain; Denies palpitations or racing heartbeat Respiratory/Chest Respiratory/Chest: Denies cough, dyspnea, dyspnea on exertion or sputum Gastrointestinal Gastrointestinal: Reports nausea and vomiting; Denies abdominal pain, constipation, diarrhea or melena Genitourinary Genitourinary ED: Denies dysuria, hematuria or urinary frequency Musculoskeletal Musculoskeletal: Denies arthralgias, myalgias or neck pain Integumentary Denies Abrasions or rash Neurologic Neurologic: Reports paresthesias and weakness; Denies headache(s) Psychiatric Psychiatric: Reports depression Endocrine Endocrinology: Denies polydipsia, polyphagia or polyuria Hematologic/Lymphatic Hematologic/Lymphatic: Denies easy bleeding or easy bruising EXAM Physical Exam Const Vital Signs: 01/03/21 12:43 01/03/21 14:23 01/03/21 15:10 Temperature 96.9 F L Temperature Source Temporal Pulse Rate 100 Respiratory Rate 14 Respiratory Effort Normal Non-Labored Blood Pressure 152/120 H 109/80 Blood Pressure Mean 130 89 Pulse Ox 99 Oxygen Delivery Method Room Air Room Air 01/03/21 16:10 Temperature Temperature Source Pulse Rate 85 Respiratory Rate 19 H Respiratory Effort Blood Pressure 166/94 H Blood Pressure Mean 118 Pulse Ox Oxygen Delivery Method Positive well nourished, well developed and unkempt General Appearance ED: unkempt and well developed HEENT Reports TM's clear HEENT Narrative: No clinical findings of basilar skull fracture. No clinical findings of infraorbital floor fracture. atraumatic Nose: Negative for septum abnormal Tympanic Membrane ED: Yes TM's clear Eyes PERRL and EOMs intact bilaterally General Eye ED: Yes other Other Details: There is no subconjunctival hemorrhage. Sclerae anicteric. Neck full ROM General: Negative for tenderness Chest Wall inspection of chest normal and palpation of chest normal Breast/Axilla Inspection: other Other Details: Pain to palpation mid clavicular line ribs 6 through 9 on the right side no crepitus subcutaneous air. Resp normal respiratory effort and clear to auscultation bilaterally Cardio regular rhythm, S1 normal heart sound, S2 normal heart sound and no murmurs Rate: regular rate GI normal to inspection, nondistended, normoactive bowel sounds, non-tender and non-distended Auscultation: normoactive bowel sounds Palpation: soft Back/Spine normal to inspection and no thoracic nor lumbar tenderness General Back: Negative for CVA tenderness Extremity Negative for normal to inspection or full ROM General Extremety ED: Yes edema; Negative for deformity or tenderness General Extremity: edema; Negative for deformity Neuro oriented x3 and CN's II-XII intact bilaterally [place] Coma Scale: document GCS findings Spontaneous Obeys Commands Oriented 15 Sensorium / Orientation: alert Motor Exam: strength 5/5 throughout Deep Tendon Reflexes: Rt Triceps (C7): 1+, Lt Triceps (C7): 1+, Rt Biceps (C5, C6): 1+, Lt Biceps (C5, C6): 1+, Rt Brachioradialis (C6): 1+, Lt Brachioradialis (C6): 1+, Rt Patellar (L4): 1+, Lt Patellar (L4): 1+, Rt Ankle (S1): 1+ and Lt Ankle (S1): 1+ Deep Tendon Reflexes Back: Rt Patellar (L4): 1+, Lt Patellar (L4): 1+, Rt Ankle (S1): 1+ and Lt Ankle (S1): 1+ Plantar Reflex: Downgoing: bilateral Psych mental status grossly normal Appearance: unkempt Skin no rashes or lesions noted and no wounds MDM MDM MDM Narrative Medical decision making narrative: Patient has pain no patient over his ribs. Will obtain x-ray to rule out fracture, pneumothorax and hemothorax. Since he is diabetic with neuropathy and not well controlled he received Reglan for his nausea and vomiting. Laboratory work-up was undertaken to assess renal function, anion gap and electrolytes. His abdominal exam is benign. He reported normal bowel movement this morning. He is still flagellated. Patient was reassessed at 1735. His nausea and vomiting resolved. He had no vomiting after receiving metoprolol. Suspect patient has gastroparesis due to diabetes. Lab Data Attestation: I reviewed the patient's lab results. Lab results narrative: Patient has no evidence of acute renal failure. He has chronic renal failure. Labs: Laboratory Results - last 24 hr 01/03/21 01/03/21 14:57 14:57 WBC 11.9 H RBC 6.00 Hgb 15.8 Hct 48.4 MCV 80.7 MCH 26.3 L MCHC 32.6 RDW Std Deviation 44.2 H RDW Coeff of Jr 15.3 H Plt Count 210 MPV 12.0 Immature Gran % (Auto) 0.900 Neut % (Auto) 82.4 H Lymph % (Auto) 8.8 L [place] % (Auto) 7.0 Eos % (Auto) 0.6 Baso % (Auto) 0.3 Absolute Neuts (auto) 9.8 H Absolute Lymphs (auto) 1.05 Nucleated RBC % 0 Sodium 137 Potassium 3.7 Chloride 101 Carbon Dioxide 32.0 Anion Gap 4 L BUN 23 H Creatinine 1.71 H Estim Creat Clear Calc 44.79 Est GFR (MDRD) Af Amer 52 L Est GFR (MDRD) Non-Af 43 L BUN/Creatinine Ratio 13.5 Glucose 262 H Calcium 10.0 Radiography Diagnostic Testing: Radiology Impression Chest X-Ray 01/03/21 15:15 IMPRESSION: No acute abnormality is seen. Stable examination. Electronically Signed: You Thorpe MD at 15:34 EDT , Service support , 2 view chest x-ray was no evidence of pneumothorax or hemothorax. There is no obvious fractured ribs. Cardiac silhouette and size normal. Lung parenchyma reveals chronic changes. [place] is unremarkable. This was interpreted by me. Discharge Plan Triage Chief Complaint: Fall ED Provider: Almas Yeung Dx/Rx/DC Orders Clinical Impression: Contusion of right chest wall, Diabetes mellitus with gastroparesis Instructions: ED Chest Wall Contusion, ED Diabetic Gastroparesis Prescriptions: New metronidazole [metronidazole] 500 MG tablet 500 mg PO Q8H Qty: 21 RF: 0 No Action diazepam 5 mg tablet 5 mg PO BID PRN (Reason: tremors) RF: 0 pregabalin [Lyrica] 150 mg capsule 150 mg PO BID RF: 0 duloxetine [Cymbalta] 60 mg capsule,delayed release(DR/EC) 60 mg PO DAILY RF: 0 potassium chloride 20 mEq tablet extended release 20 meq PO DAILY Qty: 90 RF: 3 furosemide 20 mg tablet 20 mg PO DAILY RF: 0 cholecalciferol (vitamin D3) 50 mcg (2,000 unit) tablet 50 mcg PO DAILY RF: 0 pantoprazole 40 MG tablet 40 mg PO DAILY RF: 0 aspirin 81 MG tablet,chewable 81 mg PO DAILY@0800 RF: 0 insulin glargine 100 UNIT/ML insulin pen 42 units subcut QHS RF: 0 atorvastatin 80 MG tablet 80 mg PO QHS RF: 0 nitroglycerin 0.4 mg tablet, sublingual 0.4 mg sublingual Q5M PRN (Reason: Chest Pain) RF: 0 Humalog KwikPen Insulin 200 unit/mL (3 mL) insulin pen SUBCUT TIDCM RF: 0 clopidogrel 75 mg tablet 75 mg PO DAILY RF: 0 magnesium oxide 400 mg magnesium capsule 400 mg PO BID RF: 0 multivitamin Tablet 1 tab PO DAILY RF: 0 carvedilol 3.125 mg tablet 3.125 mg PO BID Qty: 180 RF: 3 Primary Care Provider: Chema Mckeon Referrals: Chema Mckeon DO [Primary Care Provider] - 5-7 Days Disposition Disposition: Home, Self Care
[2021-01-03 15:05] LABS: Absolute Lymphocyte Count 1.05 X10^3/uL (0.83-4.51); Absolute Neutrophil Count 9.8 X10^3/uL (2.0-7.7); Basophil# 0.04 X10^3/uL; Basophil% 0.3 % (0-1); Eosinophil# 0.07 X10^3/uL; Eosinophils% 0.6 % (0-5); Hematocrit 48.4 % (40-54); Hemoglobin 15.8 g/dL (13.0-16.5); Lymphocyte # 1.05 X10^3/ul (0.83-4.51); Lymphocyte % 8.8 % (19-41); Mean Corp Hgb Conc 32.6 g/dL (32-36); Mean Corpuscular Hgb 26.3 pg (27.0-32.0); Mean Corpuscular Volume 80.7 fL (80-94); Monocyte# 0.83 X10^3/uL; NRBC Flagged by Analyzer 0 % (0-5); Neutrophil # 9.83 X10^3/uL (2.7-7.7); Neutrophil % 82.4 % (47-70); Platelet Count 210 K/mm3 (150-450); RBC Distribution Width CV 15.3 % (11.6-14.6); RBC Distribution Width SD 44.2 fl (35.1-43.9); White Blood Count 11.9 K/mm3 (4.4-11.0)
[2021-01-03] MEDS: Metoclopramide 10 MG/2 ML Vial IV (15:06)
[2021-01-03] MEDS: Morphine 4 MG/ML Syringe IV (15:07)
--- NOTE | 2021-01-03 15:15 | RAD_ITS ---
STUDY: X-RAY CHEST REASON FOR EXAM: Male, 60 years old. Trauma, pain to palpation over the anterior right -- Lower ribs 6 through 9 midclavicular line TECHNIQUE: AP and lateral views of the chest. COMPARISON: Comparison is made with prior study 11/26/2019. FINDINGS: EKG electrodes are seen. The lungs are clear and expanded. There is no demonstrated pleural abnormality. Sternal cerclage wires and vascular clips are present from a prior sternotomy and coronary artery bypass graft procedure (CABG). Normal mediastinum and ella. Normal visualized pulmonary arteries. There is atherosclerotic calcification of the aortic arch with tortuosity. There are mild degenerative changes of the visualized thoracic spine. Normal visualized ribs, clavicles, and shoulders. There is no demonstrated abnormality of the visualized soft tissue structures of the upper abdomen. RAD/Chest PA and Lateral IMPRESSION: No acute abnormality is seen. Stable examination. Electronically Signed: You Thorpe MD at 15:34 EDT , Service support ,
[2021-01-03 15:17] LABS: Anion Gap 4 (5-15); BUN 23 mg/dL (7-18); BUN/Creat Ratio 13.5 RATIO (10-20); Chloride 101 mmol/L (98-107); Creatinine, Serum 1.71 mg/dL (0.70-1.30); EST Glomerular Filtration Rate 43 mL/min (>60); Est Glom Filt Rate - Afr Amer 52 mL/min (>60); Estimated Creatinine Clearance 44.79 ml/min; Glucose 262 mg/dL (74-106); Potassium 3.7 mmol/L (3.5-5.1); Sodium Level 137 mmol/L (136-145)
[2021-01-03 16:10] VITALS: BP 166/94; PULSE 85; RESP 19
[2021-01-03 17:55] VITALS: BP 167/89; PULSE 81; RESP 22; O2SAT 97
--- NOTE | 2021-01-03 17:55 | ED.RN ---
THIS NURSE REVIEWED D/C INSTRUCTIONS WITH PT. PT VERBALIZED UNDERSTANDING OF INSTRUCTIONS. IV D/C. IV CATHETER INTACT. PT TOLERATED WELL.PT ASSISTED TO VEHICLE VIA W/C
== END 2021-01-03 17:56 | disposition home or self-care (01) ==
PROVIDERS: Emergency Provider Emergency Medicine; PCP Family Medicine
DX: E11.43 Type 2 diabetes mellitus with diabetic autonomic (poly)neuropathy (principal); S20.211A Contusion of right front wall of thorax, initial encounter; K31.84 Gastroparesis; W19.XXXA Unspecified fall, initial encounter; Y93.9 Activity, unspecified; Y92.9 Unspecified place or not applicable; E11.22 Type 2 diabetes mellitus with diabetic chronic kidney disease; E78.5 Hyperlipidemia, unspecified; F32.9 Major depressive disorder, single episode, unspecified; F41.9 Anxiety disorder, unspecified; I69.398 Other sequelae of cerebral infarction; I13.0 Hypertensive heart and chronic kidney disease with heart failure and stage 1 through stage 4 chronic kidney disease, or unspecified chronic kidney disease; I50.20 Unspecified systolic (congestive) heart failure; I25.10 Atherosclerotic heart disease of native coronary artery without angina pectoris; I25.2 Old myocardial infarction; E11.40 Type 2 diabetes mellitus with diabetic neuropathy, unspecified; I25.5 Ischemic cardiomyopathy; K21.9 Gastro-esophageal reflux disease without esophagitis; N18.30 Chronic kidney disease, stage 3 unspecified; Z95.1 Presence of aortocoronary bypass graft; Z79.4 Long term (current) use of insulin; Z79.82 Long term (current) use of aspirin; Z79.899 Other long term (current) drug therapy; F17.290 Nicotine dependence, other tobacco product, uncomplicated
CPT/HCPCS: 71046; 80048; 85025; 96361; 96374; 96375; 99285

== ENCOUNTER 2021-03-12 15:05 | Emergency (ER) | payer OTHER, MEDICARE, MEDICAID, SELFPAY ==
[2019-03-06 08:28] VITALS: BMI 29.0
[2021-03-12 15:17] VITALS: BP 197/101; PULSE 85; RESP 17; TEMP 36.5; O2SAT 97; BMI 29.7
--- NOTE | 2021-03-12 15:51 | EKG12_ITS ---
Test Reason : NAUSEA/VOMITING Blood Pressure : / mmHG Vent. Rate : 087 BPM Atrial Rate : 087 BPM P-R Int : 170 ms QRS Dur : 102 ms QT Int : 390 ms P-R-T Axes : 055 001 068 degrees QTc Int : 469 ms Normal sinus rhythm Left ventricular hypertrophy Inferior infarct , age undetermined Abnormal ECG Confirmed by NINA TINEO, TIANNA ([id number]), industrial editor MAUREEN MCKINLEY ([id number]) on 03/17/2021 9:36:36 AM Referred By: MARTELL Confirmed By:STEPHANIE WOOD MD
--- NOTE | 2021-03-12 15:51 | RAD_ITS ---
STUDY: X-RAY CHEST REASON FOR EXAM: Male, 60 years old. Epigastric pain. TECHNIQUE: Single AP portable view of the chest. COMPARISON: 01/03/2021 FINDINGS: The lungs are clear and expanded. There is no demonstrated pleural abnormality. Sternal cerclage wires and vascular clips are present from a prior sternotomy and coronary artery bypass graft procedure (CABG). The heart is normal in size. Normal mediastinum and ella. Normal visualized pulmonary arteries. There is atherosclerotic calcification of the aortic arch with tortuosity. The thoracic spine is obscured by the mediastinum. Normal visualized ribs, clavicles, and shoulders. There is no demonstrated abnormality of the visualized soft tissue structures of the upper abdomen. RAD/Chest 1 View (Portable) IMPRESSION: No acute cardiopulmonary disease or major interval change. Electronically Signed: Louie Worley DO at 16:49 EST Tel [phone], Service support ,
--- NOTE | 2021-03-12 15:54 | EDS_ITS ---
HPI HPI - GI History of Present Illness Chief Complaint: Nausea/Vomiting Narrative Narrative: 60-year-old male presenting with epigastric pain, nausea, vomiting. He states this started today. He states he believes it is due to his blood sugars being elevated. He states his blood sugar was over 300. Patient states that he was told to take 35 units of his long-acting insulin twice a day which is normal dosing and he also takes regular insulin. When his blood sugar was over 300 he states he took 35 units of insulin. He still has nausea and vomiting. He has not been able to hold on his medications otherwise. Patient does have a cardiac history including four-vessel CABG, ischemic cardiomyopathy, cardiac stents, and in addition to this he does have hypertension, diabetes, hyperlipidemia. Patient also does have history of bowel obstruction in the [facility] Medical History Abdominal pain FLORY (acute kidney injury) Anxiety Arteriosclerosis of coronary artery in patient with history of myocardial infarction Back pain Bradycardia Cardiomyopathy CKD (chronic kidney disease) stage 3, GFR 30-59 ml/min CVA (cerebral vascular accident) Depression Depression Diabetes Essential hypertension GERD (gastroesophageal reflux disease) Hematochezia Hyperlipidemia Intractable nausea and vomiting Ischemic cardiomyopathy Nausea Noncompliance with diabetes treatment Nonketotic hyperglycinemia Obesity Peripheral nerve injury Polyp of colon Recurrent left knee instability Renal insufficiency Secondary hypertension Smoker STEMI (ST elevation myocardial infarction) (03/05/19) Syncope Syncope and collapse Systolic CHF Tremor Type 2 diabetes mellitus Home Medications diazepam 5 mg tablet 5 mg PO BID PRN 02/27/19 [History Last Taken 03/19/19] duloxetine 60 mg capsule,delayed release 60 mg PO DAILY 02/27/19 [History Last Taken 09/11/20] pregabalin 150 mg capsule 150 mg PO BID 02/27/19 [History Last Taken 09/11/20] aspirin 81 mg PO DAILY@0800 03/10/19 [History Last Taken 09/11/20] pantoprazole 40 mg PO DAILY 03/10/19 [History Last Taken 09/11/20] insulin glargine 35 units SUBCUT BID 03/20/19 [History Last Taken 09/11/20] clopidogrel 75 mg tablet 75 mg PO DAILY 08/08/19 [History Last Taken 09/11/20] magnesium oxide 400 mg PO BID 08/08/19 [History Last Taken 09/11/20] multivitamin 1 tab PO DAILY 08/08/19 [History Last Taken Unknown] potassium chloride 20 mEq tablet,extended release 20 meq PO DAILY #90 tab 09/11/19 [Rx Last Taken 09/11/20] cholecalciferol (vitamin D3) 50 mcg (2,000 unit) tablet 50 mcg PO DAILY 09/27/19 [History Last Taken 09/11/20] furosemide 20 mg tablet 20 mg PO DAILY 11/20/19 [History Last Taken 09/11/20] atorvastatin 80 mg PO QHS 11/26/19 [History Last Taken 09/11/20] Humalog KwikPen Insulin 0 unit SUBCUT TIDCM 09/12/20 [History Last Taken 09/12/20 13:00 14 units] nitroglycerin 0.4 mg SUBLINGUAL Q5M PRN 09/12/20 [History Last Taken Unknown] carvedilol 3.125 mg tablet 3.125 mg PO BID #180 tab 10/02/20 [Rx Last Taken Unknown] ondansetron HCl [Zofran] 4 mg PO Q8H PRN #14 tab 03/12/21 [Rx Last Taken Unknown] Allergy/AdvReac Type Severity Reaction Status Date / Time etodolac Allergy Unknown Unknown Verified 03/12/21 15:19 nifedipine [From Adalat] Allergy Unknown Verified 03/12/21 15:19 Family History Father Heart disease Son Kidney disease Surgical History History of back surgery History of coronary artery stent placement History of lumbar fusion History of umbilical hernia repair Hx of CABG S/P coronary artery bypass graft x 4 (~08/03/19) Stented coronary artery (03/06/19) Social History household members: spouse Smoking Status: Current some day smoker tobacco type: pipe alcohol intake: never substance use type: does not use caffeine: No ROS ROS ED Constitutional Constitutional ED: Denies fever(s) or subjective ENT ENT ED: Denies rhinorrhea Cardiovascular Cardiovascular: Denies chest pain or palpitations Respiratory/Chest Respiratory/Chest: Denies cough or dyspnea Gastrointestinal Gastrointestinal: Reports abdominal pain, nausea and vomiting Genitourinary Genitourinary ED: Denies dysuria or hematuria Musculoskeletal Musculoskeletal: Denies arthralgias or myalgias Integumentary Denies rash Neurologic Neurologic: Denies headache(s) or paresthesias Psychiatric Psychiatric: Denies anxiety or depression EXAM Physical Exam Const Vital Signs: 03/12/21 15:17 03/12/21 16:34 03/12/21 16:35 Temperature 97.7 F L Temperature Source Oral Pulse Rate 85 Respiratory Rate 17 Blood Pressure 197/101 H 211/106 H 166/84 H Blood Pressure Mean 133 141 111 Pulse Ox 97 Oxygen Delivery Method Room Air 03/12/21 17:18 Temperature Temperature Source Pulse Rate 87 Respiratory Rate 16 Blood Pressure 173/91 H Blood Pressure Mean 118 Pulse Ox 96 Oxygen Delivery Method Positive well nourished General Appearance ED: NAD; Negative for pallor HEENT Reports moist mucous membranes normocephalic and atraumatic Eyes PERRL and EOMs intact bilaterally Resp normal respiratory effort and clear to auscultation bilaterally Cardio regular rate and regular rhythm GI GI Narrative: Diffuse. Palpation: soft and tender Neuro Sensorium / Orientation: alert and oriented to person Psych mental status grossly normal and thought process normal Skin General Skin Exam: Negative for jaundice or pallor MDM MDM MDM Narrative Medical decision making narrative: Patient presenting with generalized abdominal pain which is worse in his epigastric region as well as nausea and vomiting. This started today. He is not had fever or chills. He has no known sick contacts. Given the location of his pain I did check an EKG which on my interpretation shows a sinus rhythm with a ventricular rate of 87 bpm without sign of ischemic change. High-sensitivity troponin was 29. Patient is not reporting any actual chest pain or pressure. CBC shows no leukocytosis. Hemoglobin 14.5. Platelet count 151. Creatinine is actually improved from 1.71-1.36. He was given a liter of IV fluids in addition to morphine and Zofran for pain and nausea respectively. He is improved after this medication. His glucose is 302 but he does not have an anion gap. Urinalysis is negative for infection. I obtained a CT of the abdomen which does not show any acute abdominal findings. Chest x-ray my interpretation shows no acute cardiopulmonary process and the radiologist does agree. At this point since the patient's pain is improved and his nausea has improved I will discharge him home with a prescription for Zofran. He is offered more pain medication but he states he has pain medication at home. Patient will be discharged home with return precautions. Impression: 1. Abdominal pain 2. Nausea/vomiting 3. Hyperglycemia Lab Data Labs: Laboratory Results - last 24 hr 03/12/21 03/12/21 03/12/21 16:15 16:15 17:27 WBC 9.1 RBC 5.39 Hgb 14.5 Hct 43.0 MCV 79.8 L MCH 26.9 L MCHC 33.7 RDW Std Deviation 43.3 RDW Coeff of Jr 15.2 H Plt Count 151 MPV 11.4 Immature Gran % (Auto) 1.000 H Neut % (Auto) 85.1 H Lymph % (Auto) 6.1 L [place] % (Auto) 6.6 Eos % (Auto) 0.7 Baso % (Auto) 0.5 Absolute Neuts (auto) 7.8 H Absolute Lymphs (auto) 0.56 L Nucleated RBC % 0 Differential Comment SCANNED Sodium 135 L Potassium 4.9 Chloride 98 Carbon Dioxide 29.0 Anion Gap 8 BUN 28 H Creatinine 1.36 H Estim Creat Clear Calc 58.15 Est GFR (MDRD) Af Amer 68 Est GFR (MDRD) Non-Af 56 L BUN/Creatinine Ratio 20.6 H Glucose 302 H Calcium 9.4 Total Bilirubin 1.00 AST 44 H ALT 32 Alkaline Phosphatase 120 H Troponin I High Sens 29 Total Protein 7.4 Albumin 3.3 Globulin 4.1 Albumin/Globulin Ratio 0.8 L Urine Color Yellow Urine Clarity Clear Urine pH 6.5 Ur Specific [place] 1.015 Urine Protein 100 H Urine Glucose (UA) 1000 H Urine Ketones 50 H Urine Occult Blood 25 H Urine Nitrite Negative Urine Bilirubin Negative Urine Urobilinogen Normal Ur Leukocyte Esterase Negative Urine RBC 0-5 SEEN Urine WBC 0 SEEN Ur Squamous Epith Cells 0 SEEN Urine Bacteria 0 SEEN Urine Mucus 0 SEEN Radiography Diagnostic Testing: Clinical Impression(s) from Imaging Studies Chest X-Ray 03/12/21 15:51 IMPRESSION: No acute cardiopulmonary disease or major interval change. Electronically Signed: Louie Worley DO at 16:49 EST Tel [phone], Service support , Abdomen/Pelvis CT 03/12/21 17:07 IMPRESSION: 1. No acute intra-abdominal or pelvic process. There is resolution of mild small bowel dilatation seen on the previous study. 2. The remainder of the study is unchanged. Electronically Signed: Louie Worley DO at 17:30 EST Tel [phone], Service support , Discharge Plan Triage Chief Complaint: Nausea/Vomiting ED Provider: Abhinav Casey Dx/Rx/DC Orders Instructions: ED Vomiting (Adult) Prescriptions: New ondansetron HCl [Zofran] 4 mg tablet 4 mg PO Q8H PRN (Reason: nausea and vomiting) Qty: 14 RF: 0 No Action diazepam 5 mg tablet 5 mg PO BID PRN (Reason: tremors) RF: 0 pregabalin [Lyrica] 150 mg capsule 150 mg PO BID RF: 0 duloxetine [Cymbalta] 60 mg capsule,delayed release(DR/EC) 60 mg PO DAILY RF: 0 potassium chloride 20 mEq tablet extended release 20 meq PO DAILY Qty: 90 RF: 3 furosemide 20 mg tablet 20 mg PO DAILY RF: 0 cholecalciferol (vitamin D3) 50 mcg (2,000 unit) tablet 50 mcg PO DAILY RF: 0 pantoprazole 40 MG tablet 40 mg PO DAILY RF: 0 aspirin 81 MG tablet,chewable 81 mg PO DAILY@0800 RF: 0 insulin glargine 100 UNIT/ML insulin pen 35 units subcut BID RF: 0 atorvastatin 80 MG tablet 80 mg PO QHS RF: 0 nitroglycerin 0.4 mg tablet, sublingual 0.4 mg sublingual Q5M PRN (Reason: Chest Pain) RF: 0 Humalog KwikPen Insulin 200 unit/mL (3 mL) insulin pen 0 unit SUBCUT TIDCM RF: 0 clopidogrel 75 mg tablet 75 mg PO DAILY RF: 0 magnesium oxide 400 mg magnesium capsule 400 mg PO BID RF: 0 multivitamin Tablet 1 tab PO DAILY RF: 0 carvedilol 3.125 mg tablet 3.125 mg PO BID Qty: 180 RF: 3 Primary Care Provider: Chema Mckeon Referrals: Chema Mckeon DO [Primary Care Provider] - Disposition Disposition: Home, Self Care
[2021-03-12] MEDS: Ondansetron 4 MG/2 ML Vial IV (16:16)
[2021-03-12] MEDS: Morphine 4 MG/ML Syringe IV (16:17)
[2021-03-12] MEDS: 0.9% Normal Saline 1,000 ML 999 ML IV (16:19)
[2021-03-12 16:28] LABS: Absolute Lymphocyte Count 0.56 X10^3/uL (0.83-4.51); Absolute Neutrophil Count 7.8 X10^3/uL (2.0-7.7); Basophil# 0.05 X10^3/uL; Basophil% 0.5 % (0-1); Eosinophil# 0.06 X10^3/uL; Eosinophils% 0.7 % (0-5); Hemoglobin 14.5 g/dL (13.0-16.5); Lymphocyte # 0.56 X10^3/ul (0.83-4.51); Lymphocyte % 6.1 % (19-41); Mean Corp Hgb Conc 33.7 g/dL (32-36); Mean Corpuscular Hgb 26.9 pg (27.0-32.0); Mean Corpuscular Volume 79.8 fL (80-94); Mean Platelet Vol. 11.4 fl (6.2-12.0); Monocyte% 6.6 % (0-10); NRBC Flagged by Analyzer 0 % (0-5); Neutrophil # 7.77 X10^3/uL (2.7-7.7); Neutrophil % 85.1 % (47-70); POSITIVE DIFFERENTIAL YES; Platelet Count 151 K/mm3 (150-450); RBC Distribution Width CV 15.2 % (11.6-14.6); RBC Distribution Width SD 43.3 fl (35.1-43.9); Red Blood Count 5.39 M/mm3 (4.6-6.2); White Blood Count 9.1 K/mm3 (4.4-11.0)
[2021-03-12 16:31] LABS: Differential Indicated SCAN CRITERIA MET
[2021-03-12] MEDS: Labetalol (Prefilled) 20 MG/4 ML IV (16:32)
[2021-03-12 16:34] VITALS: BP 211/106
[2021-03-12 16:35] VITALS: BP 166/84
[2021-03-12 16:55] LABS: Differential Comment SCANNED
[2021-03-12 16:59] LABS: ALB/GLOB Ratio 0.8 RATIO (0.9-2.4); AST(SGOT) 44 U/L (15-37); Alanine Aminotransfer ALT/SGPT 32 U/L (16-61); Albumin, Serum 3.3 g/dL (3.2-5.0); Alkaline Phosphatase 120 U/L (45-117); Anion Gap 8 (5-15); BUN 28 mg/dL (7-18); BUN/Creat Ratio 20.6 RATIO (10-20); Calcium,Total 9.4 mg/dL (8.5-10.1); Chloride 98 mmol/L (98-107); Creatinine, Serum 1.36 mg/dL (0.70-1.30); EST Glomerular Filtration Rate 56 mL/min (>60); Est Glom Filt Rate - Afr Amer 68 mL/min (>60); Estimated Creatinine Clearance 58.15 ml/min; Globulin 4.1 g/dL (2.2-4.2); Glucose 302 mg/dL (74-106); Potassium 4.9 mmol/L (3.5-5.1); Protein, Total 7.4 g/dL (6.4-8.2); Sodium Level 135 mmol/L (136-145); Troponin-I HS 29 pg/mL (3.0-78.0)
--- NOTE | 2021-03-12 17:07 | CT_ITS ---
STUDY: CT ABDOMEN AND PELVIS WITH CONTRAST REASON FOR EXAM: Male, 60 years old. Abdominal pain. RADIATION DOSAGE (If Supplied By Facility): CTDIvol = ( 22.49 ) mGy, DLP = ( 1212.96 ) mGycm TECHNIQUE: Transaxial images were obtained from the dome of the diaphragm to the symphysis pubis without oral contrast. 100 mL of ISOVUE-[id number] was administered. Sagittal and coronal images were reconstructed. Individualized dose optimization techniques were used for this CT. COMPARISON: 09/12/2020. FINDINGS: The visualized lung bases are unremarkable. The visualized portions of the heart are within normal limits. Is evidence of CABG procedure. Normal liver. Normal gallbladder and extrahepatic biliary system. Normal spleen. Normal pancreas. Normal bilateral adrenal glands. Normal right kidney. Normal left kidney. Normal bilateral ureters. Normal visualized stomach. Normal small intestine. Normal colon. The appendix is visualized and appears normal. There is diffuse atherosclerotic calcification of the abdominal aorta, without a demonstrated aneurysm. Normal inferior vena cava. Normal retroperitoneum. Normal urinary bladder. Probable prostate. No pelvic lymphadenopathy. No free air or free fluid is seen within the peritoneal cavity. Normal abdominal wall. There are diffuse degenerative changes of the visualized lumbar spine. There is posterior fusion of L4-S1. There is stable anterolisthesis of L5 on S1. CT/Abdomen/Pelvis W IV Cont ONLY IMPRESSION: 1. No acute intra-abdominal or pelvic process. There is resolution of mild small bowel dilatation seen on the previous study. 2. The remainder of the study is unchanged. Electronically Signed: Louie Worley DO at 17:30 EST Tel [phone], Service support ,
[2021-03-12 17:18] VITALS: BP 173/91; PULSE 87; RESP 16; O2SAT 96
[2021-03-12 17:34] LABS: Bacteria 0 SEEN /hpf (None Seen); Mucous, Urine 0 SEEN /hpf (<or=2+); Squamous Epithelial Cells - UA 0 SEEN /hpf (0-5); White Blood Cells 0 SEEN /hpf (0-5)
[2021-03-12 17:35] LABS: Color, Urine Yellow (Yellow); Glucose, Dipstick 1000 mg/dl (Normal); Ketone-Dipstick 50 mg/dl (Negative); Leukocyte Esterase-Dipstick Negative /ul (Negative); Nitrite-Dipstick Negative (Negative); Occult Blood-Urine 25 /ul (Negative); Protein-Dipstick 100 mg/dl (Negative); Specific Gravity, Urine 1.015 (1.002-1.030); Urine Bilirubin Dipstick Negative (Negative); Urine Clarity Clear (Clear); Urine Urobilinogen Normal (Normal); Urine pH 6.5 (5.0 - 8.0)
[2021-03-12 17:45] LABS: Red Blood Cells-Urine 0-5 SEEN /hpf (0-5)
== END 2021-03-12 18:42 | disposition home or self-care (01) ==
PROVIDERS: Emergency Provider Student in an Organized Health Care Education/Training Program; PCP Family Medicine
DX: R10.13 Epigastric pain (principal); R11.2 Nausea with vomiting, unspecified; E11.65 Type 2 diabetes mellitus with hyperglycemia; E78.5 Hyperlipidemia, unspecified; F32.A Depression, unspecified; F41.9 Anxiety disorder, unspecified; I13.0 Hypertensive heart and chronic kidney disease with heart failure and stage 1 through stage 4 chronic kidney disease, or unspecified chronic kidney disease; E11.22 Type 2 diabetes mellitus with diabetic chronic kidney disease; N18.30 Chronic kidney disease, stage 3 unspecified; I50.20 Unspecified systolic (congestive) heart failure; I25.10 Atherosclerotic heart disease of native coronary artery without angina pectoris; I25.2 Old myocardial infarction; I25.5 Ischemic cardiomyopathy; K21.9 Gastro-esophageal reflux disease without esophagitis; Z95.1 Presence of aortocoronary bypass graft; Z87.19 Personal history of other diseases of the digestive system; Z86.73 Personal history of transient ischemic attack (TIA), and cerebral infarction without residual deficits; Z91.19 Patient's noncompliance with other medical treatment and regimen; Z79.4 Long term (current) use of insulin; Z79.82 Long term (current) use of aspirin; Z79.899 Other long term (current) drug therapy; F17.290 Nicotine dependence, other tobacco product, uncomplicated
CPT/HCPCS: 71045; 74177; 80053; 81001; 84484; 85025; 93005; 96361; 96374; 96375; 99285; J7030; Q9967; A4216; J2405

== ENCOUNTER 2022-04-04 17:38 | Emergency (ER) | payer OTHER, MEDICARE, MEDICAID, SELFPAY ==
[2019-03-06 08:28] VITALS: BMI 29.0
[2022-04-04 17:39] VITALS: BP 194/103; PULSE 78; RESP 16; TEMP 36.5; O2SAT 98; BMI 32.3
--- NOTE | 2022-04-04 18:20 | EDS_ITS ---
HPI History of Present Illness Chief Complaint: General Illness Narrative Narrative: 61-year-old male presenting with generalized weakness, nausea, vomiting times last 3 days. He admits to some mid abdominal pain as well. He describes this as feeling like an empty barrel. When I asked him to elucidate he states it feels like he is hungry. He is not had a fever, chills. He has had mild intermittent headache. No urinary complaints. He states he has some mild constipation but has been able to have bowel movements. He states his blood sugars were in the 400s at home and he took 12 units of insulin prior to coming. His blood sugar was in the 200s by EMS. He states his blood sugar is always high. He does state that he has chronic nausea and vomiting. He states his gave him something for nausea last night and this did help overnight. Apparently she works during the day and he is left at home alone. He is in a wheelchair and states he is unable to go get his own medication. He states that they do not leave any medication down where he can get it but he said the kids will get into it. [facility] Medical History Abdominal pain FLORY (acute kidney injury) Anxiety Arteriosclerosis of coronary artery in patient with history of myocardial infarction Back pain Bradycardia Cardiomyopathy CKD (chronic kidney disease) stage 3, GFR 30-59 ml/min CVA (cerebral vascular accident) Depression Depression Diabetes Essential hypertension GERD (gastroesophageal reflux disease) Hematochezia Hyperlipidemia Intractable nausea and vomiting Ischemic cardiomyopathy Nausea Noncompliance with diabetes treatment Nonketotic hyperglycinemia Obesity Peripheral nerve injury Polyp of colon Recurrent left knee instability Renal insufficiency Secondary hypertension Smoker STEMI (ST elevation myocardial infarction) (03/05/19) Syncope Syncope and collapse Systolic CHF Tremor Type 2 diabetes mellitus Home Medications diazepam 5 mg tablet 5 mg PO BID PRN tremors 02/27/19 [History Last Taken 03/19/19] duloxetine 60 mg capsule,delayed release (Cymbalta) 60 mg PO DAILY depression 02/27/19 [History Last Taken 09/11/20] pregabalin 150 mg capsule (Lyrica) 150 mg PO BID neuropathy 02/27/19 [History Last Taken 09/11/20] aspirin 81 mg chewable tablet 81 mg PO DAILY@0800 [facility] 03/10/19 [History Last Taken 09/11/20] pantoprazole 40 mg tablet,delayed release 40 mg PO DAILY stomach 03/10/19 [History Last Taken 09/11/20] insulin glargine 100 unit/mL (3 mL) subcutaneous pen 35 units subcut BID d iabetes 03/20/19 [History Last Taken 09/11/20] clopidogrel 75 mg tablet 75 mg PO DAILY antiplatelet 08/08/19 [History Last Taken 09/11/20] magnesium oxide 400 mg PO BID supplement 08/08/19 [History Last Taken 09/11/20] multivitamin 1 tab PO DAILY supplement 08/08/19 [History Last Taken Unknown] potassium chloride 20 mEq tablet,extended release 20 meq PO DAILY #90 tabs 09/11/19 [Rx Last Taken 09/11/20] cholecalciferol (vitamin D3) 50 mcg (2,000 unit) tablet 50 mcg PO DAILY supplement 09/27/19 [History Last Taken 09/11/20] furosemide 20 mg tablet 20 mg PO DAILY diuretic 11/20/19 [History Last Taken 09/11/20] atorvastatin 80 mg tablet 80 mg PO QHS cholesterol 11/26/19 [History Last Taken 09/11/20] insulin lispro 200 unit/mL (3 mL) subcutaneous pen (Humalog KwikPen U-200 Insulin) 0 unit subcut TIDCM diabetes 09/12/20 [History Last Taken 09/12/20 13:00 14 units] nitroglycerin 0.4 mg sublingual tablet 0.4 mg sublingual Q5M PRN Chest Pain 09/12/20 [History Last Taken Unknown] ondansetron HCl 4 mg tablet (Zofran) 4 mg PO Q8H PRN nausea and vomiting #14 tabs 03/12/21 [Rx Last Taken Unknown] carvedilol 3.125 mg tablet 3.125 mg PO BID #180 tabs 10/15/21 [Rx Last Taken Unknown] Allergy/AdvReac Type Severity Reaction Status Date / Time etodolac Allergy Unknown Unknown Verified 03/12/21 15:19 nifedipine [From Adalat] Allergy Unknown Verified 03/12/21 15:19 Family History Father Heart disease Son Kidney disease Surgical History History of back surgery History of coronary artery stent placement History of lumbar fusion History of umbilical hernia repair Hx of CABG S/P coronary artery bypass graft x 4 (~08/03/19) Stented coronary artery (03/06/19) Social History household members: spouse Smoking Status: Current some day smoker tobacco type: pipe alcohol intake: never substance use type: does not use caffeine: No ROS ROS ED Constitutional Constitutional ED: Denies chills or fever(s) Eyes Eyes: Denies change in vision or diplopia ENT ENT ED: Denies rhinorrhea or sore throat Cardiovascular Cardiovascular: Denies chest pain or palpitations Respiratory/Chest Respiratory/Chest: Denies cough or dyspnea Gastrointestinal Gastrointestinal: Reports abdominal pain, constipation, nausea and vomiting Genitourinary Genitourinary ED: Denies dysuria or hematuria Musculoskeletal Musculoskeletal: Denies arthralgias or back pain Integumentary Denies abscess Neurologic Neurologic: Reports headache(s); Denies paresthesias or weakness Psychiatric Psychiatric: Denies anxiety or depression EXAM Physical Exam Const Vital Signs: 04/04/22 17:39 04/04/22 17:39 04/04/22 19:38 Temperature 97.7 F L Temperature Source Oral Pulse Rate 78 73 Respiratory Rate 16 15 Respiratory Effort Normal Non-Labored Respiratory Pattern Normal Blood Pressure 194/103 H 173/92 H Blood Pressure Mean 133 119 Pulse Ox 98 98 Oxygen Delivery Method Room Air Room Air 04/04/22 20:36 Temperature Temperature Source Pulse Rate 75 Respiratory Rate 20 H Respiratory Effort Respiratory Pattern Blood Pressure 140/95 H Blood Pressure Mean 110 Pulse Ox 97 Oxygen Delivery Method Room Air Positive well nourished General Appearance ED: NAD HEENT Reports moist mucous membranes Negative for trauma Eyes PERRL and EOMs intact bilaterally General Eye ED: Negative for pale conjunctiva or scleral icterus Neck no lymphadenopathy Chest Wall inspection of chest normal and palpation of chest normal Resp normal respiratory effort and clear to auscultation bilaterally Auscultation: Negative for rales, rhonchi or wheezes Cardio regular rate and regular rhythm GI non-distended and no masses GI Narrative: Mild tenderness to palpation above the umbilicus. No peritoneal signs Extremity normal to inspection Neuro oriented x3 and CN's II-XII intact bilaterally Sensorium / Orientation: alert Psych mental status grossly normal Skin no rashes or lesions noted MDM MDM MDM Narrative Medical decision making narrative: Patient initial complaint was nausea and vomiting associated with elevated blood glucose. He takes insulin at home. He states he took 12 units of insulin prior to coming. Patient was medicated with morphine, Zofran, IV fluids. Blood work was obtained and his CBC and CMP are unremarkable with exception of a blood glucose of 225. He does not have an elevated anion gap. He is slightly dehydrated but his creatinine is near baseline. Serum acetone negative. Chest x-ray my interpretation shows no acute cardiopulmonary process radiologist are persistent agrees. Urinalysis negative for infection. On reevaluation patient is comfortable. He is no longer having abdominal pain. I did obtain EKG which on my interpretation shows a normal sinus rhythm with a ventricular to 75 bpm without sign of ischemic change and no interval change since 03/12/2021. High- sensitivity troponin was elevated from previous troponin in 2020. Its not above the threshold.He states his is now home from work. He has had this abdominal pain is a chronic issue as well as the nausea and vomiting and acutely this has been going on for about 3 days so I do not believe needs a delta troponin and based on his exam I do not believe needs a CAT scan of his abdomen. His abdomen is benign. I did ask him if he is having any chest pain or short shortness of breath that he states that he has not had any. He feels improved after treatment. He does state that he has nausea medicine and insulin at home and can treat his own blood sugar and nausea. Given this I feel he can safely be discharged. Return precautions were discussed. Impression: 1. Nausea/vomiting 2. Abdominal pain 3. Hyperglycemia Lab Data Attestation: I reviewed the patient's lab results. Labs: Laboratory Results - last 24 hr 04/04/22 04/04/22 04/04/22 18:37 18:37 18:37 WBC 8.4 RBC 5.52 Hgb 15.7 Hct 45.2 MCV 81.9 MCH 28.4 MCHC 34.7 RDW Std Deviation 40.7 RDW Coeff of Jr 13.7 Plt Count 154 MPV 11.3 Immature Gran % (Auto) 1.200 H Neut % (Auto) 75.8 H Lymph % (Auto) 11.8 L Lares % (Auto) 8.0 Eos % (Auto) 2.5 Baso % (Auto) 0.7 Absolute Neuts (auto) 6.3 Absolute Lymphs (auto) 0.99 Nucleated RBC % 0 Sodium 133 L Potassium 4.5 Chloride 99 Carbon Dioxide 29.0 Anion Gap 5 BUN 34 H Creatinine 1.43 H Estim Creat Clear Calc 54.59 Est GFR (MDRD) Af Amer 64 Est GFR (MDRD) Non-Af 53 L BUN/Creatinine Ratio 23.8 H Glucose 325 H Calcium 9.1 Total Bilirubin 0.60 AST 19 ALT 22 Alkaline Phosphatase 115 Troponin I High Sens 61 Total Protein 6.6 Albumin 3.0 L Globulin 3.6 Albumin/Globulin Ratio 0.8 L Urine Color Urine Clarity Urine pH Ur Specific [place] Urine Protein Urine Glucose (UA) Urine Ketones Urine Occult Blood Urine Nitrite Urine Bilirubin Urine Urobilinogen Ur Leukocyte Esterase Urine RBC Urine WBC Ur Squamous Epith Cells Urine Bacteria Urine Mucus Acetone Level NEGATIVE 04/04/22 18:42 WBC RBC Hgb Hct MCV MCH MCHC RDW Std Deviation RDW Coeff of Jr Plt Count MPV Immature Gran % (Auto) Neut % (Auto) Lymph % (Auto) Lares % (Auto) Eos % (Auto) Baso % (Auto) Absolute Neuts (auto) Absolute Lymphs (auto) Nucleated RBC % Sodium Potassium Chloride Carbon Dioxide Anion Gap BUN Creatinine Estim Creat Clear Calc Est GFR (MDRD) Af Amer Est GFR (MDRD) Non-Af BUN/Creatinine Ratio Glucose Calcium Total Bilirubin AST ALT Alkaline Phosphatase Troponin I High Sens Total Protein Albumin Globulin Albumin/Globulin Ratio Urine Color Yellow Urine Clarity Clear Urine pH 6.5 Ur Specific [place] 1.010 Urine Protein 500 H Urine Glucose (UA) 1000 H Urine Ketones Negative Urine Occult Blood 25 H Urine Nitrite Negative Urine Bilirubin Negative Urine Urobilinogen Normal Ur Leukocyte Esterase Negative Urine RBC 0-5 SEEN Urine WBC 0 SEEN Ur Squamous Epith Cells 0 SEEN Urine Bacteria 0 SEEN Urine Mucus 0 SEEN Acetone Level Radiography Diagnostic Testing: Clinical Impression(s) from Imaging Studies Chest X-Ray 04/04/22 18:30 IMPRESSION: No acute cardiopulmonary disease. No significant interval change. Electronically Signed: Ruth Ann Turner MD at 19:32 EST Reading Location ID and State: , Service support , Discharge Plan Triage Chief Complaint: General Illness ED Provider: Abhinav Casey Dx/Rx/DC Orders Prescriptions: No Action diazepam 5 mg tablet 5 mg PO BID PRN (Reason: tremors) pregabalin [Lyrica] 150 mg capsule 150 mg PO BID duloxetine [Cymbalta] 60 mg capsule,delayed release(DR/EC) 60 mg PO DAILY potassium chloride 20 mEq tablet extended release 20 meq PO DAILY Qty: 90 3RF furosemide 20 mg tablet 20 mg PO DAILY cholecalciferol (vitamin D3) 50 mcg (2,000 unit) tablet 50 mcg PO DAILY pantoprazole 40 MG tablet 40 mg PO DAILY aspirin 81 MG tablet,chewable 81 mg PO DAILY@0800 insulin glargine 100 UNIT/ML insulin pen 35 units subcut BID atorvastatin 80 MG tablet 80 mg PO QHS nitroglycerin 0.4 mg tablet, sublingual 0.4 mg sublingual Q5M PRN (Reason: Chest Pain) Label Comments: Place 1 tablet under tongue as needed for Chest pain. max = 3 doses. If CP persists after 1st dose, call 911 Humalog KwikPen Insulin 200 unit/mL (3 mL) insulin pen 0 unit SUBCUT TIDCM ondansetron HCl [Zofran] 4 mg tablet 4 mg PO Q8H PRN (Reason: nausea and vomiting) Qty: 14 0RF clopidogrel 75 mg tablet 75 mg PO DAILY magnesium oxide 400 mg magnesium capsule 400 mg PO BID multivitamin Tablet 1 tab PO DAILY carvedilol 3.125 mg tablet 3.125 mg PO BID Qty: 180 3RF Rx Instructions: must administer with a meal/food Primary Care Provider: Chema Mckeon Referrals: Chema Mckeon DO [Primary Care Provider] -
--- NOTE | 2022-04-04 18:30 | RAD_ITS ---
STUDY: X-RAY CHEST REASON FOR EXAM: Male, 61 years old. weakness TECHNIQUE: Single AP portable view of the chest. COMPARISON: 03/12/2021 FINDINGS: There are superimposed monitor leads. The lungs are clear and expanded. There is no demonstrated pleural abnormality. Sternal cerclage wires and vascular clips are present from a prior sternotomy and coronary artery bypass graft procedure (CABG). Normal mediastinum and ella. Normal visualized pulmonary arteries. There is atherosclerotic calcification of the aortic arch with tortuosity. Obscured thoracic spine. Normal visualized ribs, clavicles, and shoulders. There is no demonstrated abnormality of the visualized soft tissue structures of the upper abdomen. RAD/Chest 1 View (Portable) IMPRESSION: No acute cardiopulmonary disease. No significant interval change. Electronically Signed: Ruth Ann Turner MD at 19:32 EST Reading Location ID and State: , Service support ,
[2022-04-04] MEDS: Ondansetron 4 MG/2 ML Vial IV (18:32)
[2022-04-04] MEDS: Morphine 4 MG/ML Syringe IV (18:32)
[2022-04-04] MEDS: 0.9% Normal Saline 1,000 ML 999 ML IV (18:33)
[2022-04-04 18:45] LABS: Bacteria 0 SEEN /hpf (None Seen); Mucous, Urine 0 SEEN /hpf (<or=2+); Squamous Epithelial Cells - UA 0 SEEN /hpf (0-5); White Blood Cells 0 SEEN /hpf (0-5)
[2022-04-04 18:51] LABS: Absolute Lymphocyte Count 0.99 X10^3/uL (0.83-4.51); Absolute Neutrophil Count 6.3 X10^3/uL (2.0-7.7); Basophil# 0.06 X10^3/uL; Basophil% 0.7 % (0-1); Eosinophil# 0.21 X10^3/uL; Eosinophils% 2.5 % (0-5); Hematocrit 45.2 % (40-54); Hemoglobin 15.7 g/dL (13.0-16.5); Lymphocyte # 0.99 X10^3/ul (0.83-4.51); Lymphocyte % 11.8 % (19-41); Mean Corp Hgb Conc 34.7 g/dL (32-36); Mean Corpuscular Hgb 28.4 pg (27.0-32.0); Mean Corpuscular Volume 81.9 fL (80-94); Mean Platelet Vol. 11.3 fl (6.2-12.0); Monocyte# 0.67 X10^3/uL; NRBC Flagged by Analyzer 0 % (0-5); Neutrophil # 6.34 X10^3/uL (2.7-7.7); Neutrophil % 75.8 % (47-70); Platelet Count 154 K/mm3 (150-450); RBC Distribution Width CV 13.7 % (11.6-14.6); RBC Distribution Width SD 40.7 fl (35.1-43.9); Red Blood Count 5.52 M/mm3 (4.6-6.2); White Blood Count 8.4 K/mm3 (4.4-11.0)
[2022-04-04 18:52] LABS: Color, Urine Yellow (Yellow); Glucose, Dipstick 1000 mg/dl (Normal); Ketone-Dipstick Negative (Negative); Leukocyte Esterase-Dipstick Negative /ul (Negative); Nitrite-Dipstick Negative (Negative); Occult Blood-Urine 25 /ul (Negative); Protein-Dipstick 500 mg/dl (Negative); Urine Bilirubin Dipstick Negative (Negative); Urine Clarity Clear (Clear); Urine Urobilinogen Normal (Normal); Urine pH 6.5 (5.0 - 8.0)
[2022-04-04 19:05] LABS: ALB/GLOB Ratio 0.8 RATIO (0.9-2.4); AST(SGOT) 19 U/L (15-37); Alanine Aminotransfer ALT/SGPT 22 U/L (16-61); Alkaline Phosphatase 115 U/L (45-117); Anion Gap 5 (5-15); BUN 34 mg/dL (7-18); BUN/Creat Ratio 23.8 RATIO (10-20); Calcium,Total 9.1 mg/dL (8.5-10.1); Chloride 99 mmol/L (98-107); Creatinine, Serum 1.43 mg/dL (0.70-1.30); EST Glomerular Filtration Rate 53 mL/min (>60); Est Glom Filt Rate - Afr Amer 64 mL/min (>60); Estimated Creatinine Clearance 54.59 ml/min; Globulin 3.6 g/dL (2.2-4.2); Glucose 325 mg/dL (74-106); Potassium 4.5 mmol/L (3.5-5.1); Protein, Total 6.6 g/dL (6.4-8.2); Sodium Level 133 mmol/L (136-145); Troponin-I HS 61 pg/mL (3.0-78.0)
[2022-04-04 19:07] LABS: Red Blood Cells-Urine 0-5 SEEN /hpf (0-5)
[2022-04-04 19:38] VITALS: BP 173/92; PULSE 73; RESP 15; O2SAT 98
--- NOTE | 2022-04-04 19:51 | ED.RN ---
pt attempted to call for med list, did not answer. Pt unsure of what meds he takes at home
[2022-04-04 20:36] VITALS: BP 140/95; PULSE 75; RESP 20; O2SAT 97
[2022-04-04 21:08] VITALS: BP 141/79; PULSE 72; RESP 16; O2SAT 97
== END 2022-04-04 21:22 | disposition home or self-care (01) ==
PROVIDERS: Emergency Provider Student in an Organized Health Care Education/Training Program; PCP Family Medicine; Visit Provider Student in an Organized Health Care Education/Training Program
DX: R11.2 Nausea with vomiting, unspecified (principal); E11.65 Type 2 diabetes mellitus with hyperglycemia; E11.22 Type 2 diabetes mellitus with diabetic chronic kidney disease; N18.30 Chronic kidney disease, stage 3 unspecified; E78.5 Hyperlipidemia, unspecified; I25.10 Atherosclerotic heart disease of native coronary artery without angina pectoris; I25.2 Old myocardial infarction; F17.290 Nicotine dependence, other tobacco product, uncomplicated; Z86.73 Personal history of transient ischemic attack (TIA), and cerebral infarction without residual deficits; Z95.5 Presence of coronary angioplasty implant and graft; Z95.1 Presence of aortocoronary bypass graft; Z79.82 Long term (current) use of aspirin; Z79.899 Other long term (current) drug therapy
CPT/HCPCS: 71045; 80053; 81001; 82009; 84484; 85025; 87428; 93005; 96374; 96375; 99285; J7030; A4216; J2405

== ENCOUNTER → 2022-09-11 | Outpatient (CLI) | payer MEDICARE, MEDICAID, SELFPAY ==
[2019-03-06 08:28] VITALS: BMI 29.0
[2022-09-11 17:45] LABS: Absolute Lymphocyte Count 1.37 X10^3/uL (0.83-4.51); Absolute Neutrophil Count 5.6 X10^3/uL (2.0-7.7); Basophil# 0.07 X10^3/uL; Basophil% 0.9 % (0-1); Eosinophil# 0.28 X10^3/uL; Eosinophils% 3.4 % (0-5); Hematocrit 40.4 % (40-54); Hemoglobin 13.3 g/dL (13.0-16.5); Lymphocyte # 1.37 X10^3/ul (0.83-4.51); Lymphocyte % 16.7 % (19-41); Mean Corp Hgb Conc 32.9 g/dL (32-36); Mean Corpuscular Hgb 28.7 pg (27.0-32.0); Mean Corpuscular Volume 87.3 fL (80-94); Mean Platelet Vol. 12.5 fl (6.2-12.0); Monocyte# 0.71 X10^3/uL; Monocyte% 8.7 % (0-10); NRBC Flagged by Analyzer 0 % (0-5); Neutrophil # 5.62 X10^3/uL (2.7-7.7); Neutrophil % 68.7 % (47-70); Platelet Count 159 K/mm3 (150-450); RBC Distribution Width CV 14.3 % (11.6-14.6); RBC Distribution Width SD 44.9 fl (35.1-43.9); Red Blood Count 4.63 M/mm3 (4.6-6.2); White Blood Count 8.2 K/mm3 (4.4-11.0)
[2022-09-11 18:06] LABS: ALB/GLOB Ratio 0.8 RATIO (0.9-2.4); AST(SGOT) 15 U/L (15-37); Alanine Aminotransfer ALT/SGPT 19 U/L (16-61); Albumin, Serum 2.9 g/dL (3.2-5.0); Alkaline Phosphatase 123 U/L (45-117); Anion Gap 7 (5-15); BUN 32 mg/dL (7-18); BUN/Creat Ratio 16.5 RATIO (10-20); Calcium,Total 8.9 mg/dL (8.5-10.1); Chloride 101 mmol/L (98-107); Cholesterol 188 mg/dL (200); Creatinine, Serum 1.94 mg/dL (0.70-1.30); EST Glomerular Filtration Rate 37 mL/min (>60); Est Glom Filt Rate - Afr Amer 45 mL/min (>60); Globulin 3.6 g/dL (2.2-4.2); Glucose 168 mg/dL (74-106); High Density Lipoprotein 41 mg/dL; PSA,Total - Annual Screen 0.74 ng/mL (0.00-4.00); Potassium 4.3 mmol/L (3.5-5.1); Protein, Total 6.5 g/dL (6.4-8.2); Sodium Level 138 mmol/L (136-145); Thyroid Stim Hormone (TSH) 0.98 uIU/mL (0.358-3.74); Triglycerides 470 mg/dL; Troponin-I HS 26 pg/mL (3.0-78.0)
[2022-09-11 18:19] LABS: BNP,B-Type NATRIURETIC PEPTIDE 216.6 pg/mL (0-100)
[2022-09-11 18:44] LABS: Microalbumin:Creatinine Ratio 1220.4 mg/g CRE (<30 mg/g CRE)
== END | disposition home or self-care (01) ==
PROVIDERS: PCP Family Medicine; Referring Provider Family Medicine; Visit Provider Family Medicine
DX: Z00.00 Encounter for general adult medical examination without abnormal findings (principal); I50.20 Unspecified systolic (congestive) heart failure; E11.21 Type 2 diabetes mellitus with diabetic nephropathy; Z12.5 Encounter for screening for malignant neoplasm of prostate; R94.31 Abnormal electrocardiogram [ECG] [EKG]
CPT/HCPCS: 36415; 80053; 80061; 82043; 82570; 83880; 84153; 84443; 84484; 85025; G0103

== ENCOUNTER 2022-11-17 07:19 | Observation (INO) | payer MEDICARE, MEDICAID, SELFPAY ==
[2019-03-06 08:28] VITALS: BMI 29.0
[2022-11-17 07:21] VITALS: BP 147/113; PULSE 97; RESP 19; TEMP 36.6; O2SAT 99; BMI 29.8
--- NOTE | 2022-11-17 07:28 | EKG12_ITS ---
Test Reason : ABD PAIN Blood Pressure : / mmHG Vent. Rate : 091 BPM Atrial Rate : 091 BPM P-R Int : 168 ms QRS Dur : 100 ms QT Int : 406 ms P-R-T Axes : 066 -07 102 degrees QTc Int : 499 ms Normal sinus rhythm Minimal voltage criteria for LVH, may be normal variant ( R in aVL ) Inferior infarct (cited on or before 05-MAR-2019) Abnormal ECG Confirmed by NINA TINEO, TIANNA ([id number]), film editor PB CHÁVEZ ([id number]) on 11/23/2022 8:59:41 AM Referred By: Confirmed By:STEPHANIE WOOD MD
--- NOTE | 2022-11-17 07:29 | CT_ITS ---
STUDY: CT ABDOMEN AND PELVIS WITH CONTRAST REASON FOR EXAM: Male, 62 years old. Abdominal pain. RADIATION DOSAGE (If Supplied By Facility): . = ( 16.35 ) mGy, DLP = ( 1186.45 ) mGycm TECHNIQUE: Transaxial images were obtained from the dome of the diaphragm to the symphysis pubis without oral contrast. IV 100mL Isovue-300 was administered. Sagittal and coronal images were reconstructed. Individualized dose optimization techniques were used for this CT. COMPARISON: Comparison is made with prior study dated December 11, 2020. FINDINGS: The visualized lung bases are unremarkable. Prior CABG. Coronary artery calcification. There is decreased attenuation of the liver consistent with steatosis. Normal gallbladder and extrahepatic biliary system. Normal spleen. Normal pancreas. Normal bilateral adrenal glands. Normal right kidney. Normal left kidney. Normal visualized stomach. Normal small intestine. Normal colon. The appendix is visualized and appears normal. There is diffuse atherosclerotic calcification of the abdominal aorta and its major visceral branches, without a demonstrated aneurysm. Normal inferior vena cava. Normal retroperitoneum. Mild degree of diffuse bladder wall thickening. Calcification of the vas deferens. Normal abdominal wall. There are diffuse degenerative changes of the visualized lumbar spine. Prior fusion at the L4-L5 and L5-S1 levels. Stable grade 2 anterolisthesis of L5 on S1. CT/Abdomen/Pelvis W IV Cont ONLY IMPRESSION: Fatty infiltration of the liver. Mild degree of diffuse bilateral wall thickening. The remainder of the examination is unchanged. Electronically Signed: You Thorpe MD at 9:15 EDT ,
--- NOTE | 2022-11-17 07:30 | ED.VIS.GI ---
HPI HPI - GI History of Present Illness Chief Complaint: Abd Pain Detail of Chief Complaint: Abdominal pain Informant: patient Abdominal Pain/Flank Pain Maximum Severity: 09/19 Narrative Narrative: Patient presents to the emergency department complaint of abdominal pain that started 3 days ago. He has had vomiting frequently every time he tries to eat or drink. He denies any blood in his stool or black tarry stool. His last bowel movement was 2 days ago. He denies fever. Denies urinary symptoms. Currently rates his pain a 6 out of 10. Pain mostly left lower side. PFSH PFSH Medical History Abdominal pain FLORY (acute kidney injury) Anxiety Arteriosclerosis of coronary artery in patient with history of myocardial infarction Back pain Bradycardia Cardiomyopathy CKD (chronic kidney disease) stage 3, GFR 30-59 ml/min CVA (cerebral vascular accident) Depression Depression Diabetes Essential hypertension GERD (gastroesophageal reflux disease) Hematochezia Hyperlipidemia Intractable nausea and vomiting Ischemic cardiomyopathy Nausea Noncompliance with diabetes treatment Nonketotic hyperglycinemia Obesity Peripheral nerve injury Polyp of colon Recurrent left knee instability Renal insufficiency Secondary hypertension Smoker STEMI (ST elevation myocardial infarction) (03/05/19) Syncope Syncope and collapse Systolic CHF Tremor Type 2 diabetes mellitus Home Medications diazepam 5 mg tablet 5 mg PO BID PRN tremors 02/27/19 [History Last Taken 11/16/22] duloxetine 60 mg capsule,delayed release (Cymbalta) 60 mg PO DAILY depression 02/27/19 [History Last Taken 11/16/22] pregabalin 150 mg capsule (Lyrica) 150 mg PO BID neuropathy 02/27/19 [History Last Taken 11/16/22] aspirin 81 mg chewable tablet 81 mg PO DAILY heart health 03/10/19 [History Last Taken 11/16/22] pantoprazole 40 mg tablet,delayed release 40 mg PO DAILY acid reflux 03/10/19 [History Last Taken 11/16/22] insulin glargine 100 unit/mL (3 mL) subcutaneous pen 40 units subcut BID diabetes 03/20/19 [History Last Taken 11/16/22] clopidogrel 75 mg tablet 75 mg PO DAILY antiplatelet 08/08/19 [History Last Taken 11/16/22] magnesium oxide 400 mg PO BID supplement 08/08/19 [History Last Taken 11/16/22] multivitamin 1 tab PO DAILY supplement 08/08/19 [History Last Taken 11/16/22] potassium chloride 20 mEq tablet,extended release 20 meq PO DAILY supplement #90 tabs 09/11/19 [Rx Last Taken 11/16/22] cholecalciferol (vitamin D3) 50 mcg (2,000 unit) tablet 50 mcg PO DAILY supplement 09/27/19 [History Last Taken 11/16/22] furosemide 20 mg tablet 20 mg PO DAILY diuretic 11/20/19 [History Last Taken 11/16/22] atorvastatin 80 mg tablet 80 mg PO QHS cholesterol 11/26/19 [History Last Taken 11/16/22] insulin lispro 200 unit/mL (3 mL) subcutaneous pen (Humalog KwikPen U-200 Insulin) See Protocol subcut TIDCM diabetes 09/12/20 [History Last Taken 11/16/22] nitroglycerin 0.4 mg sublingual tablet 0.4 mg sublingual Q5M PRN Chest Pain 09/12/20 [History Last Taken Unknown] carvedilol 3.125 mg tablet 3.125 mg PO BID heart 11/17/22 [History Last Taken 11/16/22] empagliflozin 10 mg tablet (Jardiance) 10 mg PO DAILY diabetes 11/17/22 [History Last Taken 11/16/22] Allergy/AdvReac Type Severity Reaction Status Date / Time etodolac Allergy Unknown Unknown Verified 11/17/22 07:26 nifedipine [From Adalat] Allergy Unknown Verified 11/17/22 07:26 Family History Father Heart disease Son Kidney disease Surgical History History of back surgery History of coronary artery stent placement History of lumbar fusion History of umbilical hernia repair Hx of CABG S/P coronary artery bypass graft x 4 (~08/03/19) Stented coronary artery (03/06/19) Social History household members: spouse Smoking Status: Current some day smoker tobacco type: pipe alcohol intake: never substance use type: does not use caffeine: No ROS ROS ED Review of Systems ROS Unobtainable: other Constitutional Constitutional ED: Reports lethargy; Denies chills, fever(s), sweats or weight loss Eyes Eyes: Denies blurry vision, change in vision or diplopia ENT ENT ED: Denies rhinorrhea or sore throat Cardiovascular Cardiovascular: Denies chest pain, orthopnea or racing heartbeat Respiratory/Chest Respiratory/Chest: Reports dyspnea; Denies cough, dyspnea on exertion, orthopnea or sputum Gastrointestinal Gastrointestinal: Reports abdominal pain, nausea and vomiting; Denies diarrhea Genitourinary Genitourinary ED: Denies dysuria, hematuria or urinary frequency Musculoskeletal Musculoskeletal: Denies arthralgias, back pain, myalgias or neck pain Integumentary Denies abscess, Abrasions or rash Neurologic Neurologic: Denies headache(s) or weakness Psychiatric Psychiatric: Denies anxiety, depression or suicidal thoughts Endocrine Endocrinology: Denies polydipsia, polyphagia or polyuria Hematologic/Lymphatic Hematologic/Lymphatic: Denies easy bleeding, easy bruising or lymphadenopathy Allergic/Immunologic Allergic/Immunologic ED: Denies mouth swelling, tongue swelling or urticaria EXAM Physical Exam Const Vital Signs: 11/17/22 07:21 11/17/22 09:48 11/17/22 11:05 Temperature 97.9 F 98 F Temperature Source Temporal Temporal Pulse Rate 97 87 Respiratory Rate 19 H 19 H Blood Pressure 147/113 H 149/72 H Blood Pressure Mean 124 97 Blood Pressure Source Blood Pressure Position Blood Pressure Location Pulse Ox 99 100 99 Oxygen Delivery Method Room Air Room Air Room Air 11/17/22 11:00 Temperature 98.0 F Temperature Source Oral Pulse Rate 91 Respiratory Rate 18 Blood Pressure 170/90 H Blood Pressure Mean 116 Blood Pressure Source Monitor Blood Pressure Position Semi-Fowlers Blood Pressure Location Left Arm Pulse Ox 98 Oxygen Delivery Method Room Air Positive well nourished and well developed General Appearance ED: well developed and NAD HEENT Reports TM's clear and moist mucous membranes normocephalic and atraumatic; Negative for trauma or tenderness Tympanic Membrane ED: Yes TM's clear Eyes PERRL and EOMs intact bilaterally General Eye ED: Negative for pale conjunctiva or scleral icterus Neck no lymphadenopathy, supple and no JVD General: Negative for tenderness Chest Wall inspection of chest normal and palpation of chest normal Chest: Negative for tenderness Resp normal respiratory effort and clear to auscultation bilaterally Effort and Inspection: Negative for respiratory distress or pain with movement Auscultation: Negative for rhonchi, wheezes or diminished lung sounds Cardio regular rate, regular rhythm, S1 normal heart sound, S2 normal heart sound and no murmurs Peripheral Pulses: pulses 2+ throughout GI normal to inspection, nondistended, normoactive bowel sounds, soft to palpation, non-distended and no masses GI Narrative: Patient with tenderness diffusely about the abdomen but seems to be more localized to the left lower quadrant. There are some guarding. There is no rebound, rigidity, or pedal signs. No mass palpated. Back/Spine no CVA tenderness and no thoracic nor lumbar tenderness Extremity normal to inspection General Extremety ED: Negative for edema General Extremity: Negative for edema Neuro oriented x3, CN's II-XII intact bilaterally, no sensory deficits noted and gait normal Sensorium / Orientation: awake, alert, oriented to person, oriented to place and oriented to time Motor Exam: strength 5/5 throughout and strength abnormal Psych mental status grossly normal Skin no rashes or lesions noted and no wounds MDM MDM MDM Narrative Medical decision making narrative: Patient presents with abdominal pain and vomiting. Pain seems to be more localized to the left side. In the differential would be diverticulitis versus kidney stone versus bowel obstruction or other acute intra-abdominal process. IV line will be established. She was ordered Zofran 4 mg IV. Initially he did not anything for pain. Will obtain lab workup and CT scan of the abdomen pelvis to evaluate further. Patient had an IV line established. CBC with differential obtained showed white of 14.9 with hemoglobin of 17 and platelet count of 246. Chemistries showed a low sodium of 131 with a potassium of 3.4. BUN was 31 and creatinine 1.7. Lactate was slightly elevated 2.8. LFTs showed a slightly elevated alkaline phosphatase of 136. Lipase was normal. Urinalysis unremarkable. CT scan of the abdomen pelvis showed a thickened bladder wall otherwise no acute disease process. Patient improved after Zofran and morphine. Case discussed with hospitalist will evaluate patient for admission. Lab Data Attestation: I reviewed the patient's lab results. Labs: Laboratory Results - last 24 hr 11/17/22 11/17/22 11/17/22 07:00 08:15 11:23 WBC 14.9 H RBC 6.11 Hgb 17.5 H Hct 50.1 MCV 82.0 MCH 28.6 MCHC 34.9 RDW Std Deviation 38.7 RDW Coeff of Jr 13.2 Plt Count 246 MPV 12.1 H Immature Gran % (Auto) 1.000 H Neut % (Auto) 79.4 H Lymph % (Auto) 11.[address] [facility] % (Auto) 6.7 Eos % (Auto) 0.7 Baso % (Auto) 0.3 Absolute Neuts (auto) 11.8 H Absolute Lymphs (auto) 1.78 Nucleated RBC % 0 Sodium 131 L Potassium 3.4 L Chloride 93 L Carbon Dioxide 25.0 Anion Gap 13 BUN 31 H Creatinine 1.71 H Estim Creat Clear Calc 45.06 Est GFR (MDRD) Af Amer 52 L Est GFR (MDRD) Non-Af 43 L BUN/Creatinine Ratio 18.1 Glucose 175 H Lactic Acid 2.8 H* Calcium 9.3 Total Bilirubin 1.00 AST 19 ALT 26 Alkaline Phosphatase 136 H Troponin I High Sens 52 Total Protein 7.6 Albumin 3.2 Globulin 4.4 H Albumin/Globulin Ratio 0.7 L Amylase 28 Lipase 30 Urine Color Yellow Urine Clarity Sl. Cloudy Urine pH 7.0 Ur Specific [place] 1.015 Urine Protein 500 H Urine Glucose (UA) 1000 H Urine Ketones Negative Urine Occult Blood 25 H Urine Nitrite Negative Urine Bilirubin Negative Urine Urobilinogen Normal Ur Leukocyte Esterase Negative Urine RBC 0-5 SEEN Urine WBC 0 SEEN Ur Squamous Epith Cells 0-5 SEEN Urine Bacteria 0 SEEN Urine Mucus 0 SEEN POC Glucose 188 H Radiography Diagnostic Testing: Clinical Impression(s) from Imaging Studies Abdomen/Pelvis CT 11/17/22 07:29 IMPRESSION: Fatty infiltration of the liver. Mild degree of diffuse bilateral wall thickening. The remainder of the examination is unchanged. Electronically Signed: You Thorpe MD at 9:15 EDT , EKG Initial EKG: Attestation: I personally reviewed and interpreted this EKG as follows: Comments: Sinus rhythm with a rate of 91 bpm with old inferior infarct and LVH Discharge Plan Dx/Rx/DC Orders Clinical Impression: Generalized weakness, Leukocytosis, Abdominal pain, Acute hyponatremia, Acidosis, lactic Disposition Disposition: [facility]
[2022-11-17] MEDS: 0.9% Normal Saline 1,000 ML 1000 ML IV (07:39)
[2022-11-17] MEDS: Ondansetron 4 MG/2 ML Vial IV (07:39)
[2022-11-17 07:52] LABS: Absolute Lymphocyte Count 1.78 X10^3/uL (0.83-4.51); Absolute Neutrophil Count 11.8 X10^3/uL (2.0-7.7); Basophil# 0.05 X10^3/uL; Basophil% 0.3 % (0-1); Eosinophil# 0.11 X10^3/uL; Eosinophils% 0.7 % (0-5); Hematocrit 50.1 % (40-54); Hemoglobin 17.5 g/dL (13.0-16.5); Lymphocyte # 1.78 X10^3/ul (0.83-4.51); Lymphocyte % 11.9 % (19-41); Mean Corp Hgb Conc 34.9 g/dL (32-36); Mean Corpuscular Hgb 28.6 pg (27.0-32.0); Mean Platelet Vol. 12.1 fl (6.2-12.0); Monocyte% 6.7 % (0-10); NRBC Flagged by Analyzer 0 % (0-5); Neutrophil # 11.81 X10^3/uL (2.7-7.7); Neutrophil % 79.4 % (47-70); Platelet Count 246 K/mm3 (150-450); RBC Distribution Width CV 13.2 % (11.6-14.6); RBC Distribution Width SD 38.7 fl (35.1-43.9); Red Blood Count 6.11 M/mm3 (4.6-6.2); White Blood Count 14.9 K/mm3 (4.4-11.0)
[2022-11-17 08:17] LABS: ALB/GLOB Ratio 0.7 RATIO (0.9-2.4); AST(SGOT) 19 U/L (15-37); Alanine Aminotransfer ALT/SGPT 26 U/L (16-61); Albumin, Serum 3.2 g/dL (3.2-5.0); Alkaline Phosphatase 136 U/L (45-117); Anion Gap 13 (5-15); BUN 31 mg/dL (7-18); BUN/Creat Ratio 18.1 RATIO (10-20); Calcium,Total 9.3 mg/dL (8.5-10.1); Chloride 93 mmol/L (98-107); Creatinine, Serum 1.71 mg/dL (0.70-1.30); EST Glomerular Filtration Rate 43 mL/min (>60); Est Glom Filt Rate - Afr Amer 52 mL/min (>60); Estimated Creatinine Clearance 45.06 ml/min; Globulin 4.4 g/dL (2.2-4.2); Glucose 175 mg/dL (74-106); Lipase 30 U/L (13-75); Potassium 3.4 mmol/L (3.5-5.1); Protein, Total 7.6 g/dL (6.4-8.2); Sodium Level 131 mmol/L (136-145); Troponin-I HS 52 pg/mL (3.0-78.0)
[2022-11-17 08:20] LABS: Bacteria 0 SEEN /hpf (None Seen); Color, Urine Yellow (Yellow); Glucose, Dipstick 1000 mg/dl (Normal); Ketone-Dipstick Negative (Negative); Leukocyte Esterase-Dipstick Negative /ul (Negative); Mucous, Urine 0 SEEN /hpf (<or=2+); Nitrite-Dipstick Negative (Negative); Occult Blood-Urine 25 /ul (Negative); Protein-Dipstick 500 mg/dl (Negative); Specific Gravity, Urine 1.015 (1.002-1.030); Urine Bilirubin Dipstick Negative (Negative); Urine Clarity Sl. Cloudy (Clear); Urine Urobilinogen Normal (Normal); White Blood Cells 0 SEEN /hpf (0-5)
[2022-11-17 08:21] LABS: Lactic Acid 2.8 mmol/L (0.4-1.9)
[2022-11-17 08:29] LABS: Red Blood Cells-Urine 0-5 SEEN /hpf (0-5)
[2022-11-17 08:30] LABS: Squamous Epithelial Cells - UA 0-5 SEEN /hpf (0-5)
[2022-11-17] MEDS: Morphine 4 MG/ML Syringe IV (08:43)
--- NOTE | 2022-11-17 09:25 | NURSING ---
DR KENDRA BECERRA
--- NOTE | 2022-11-17 09:35 | NURSING ---
MED SURG KENDRA ABD PAIN, VOMITING, WEAKNESS, HYPONATREMIA, LEUKOCYTOSIS
--- NOTE | 2022-11-17 09:47 | PCM.HP.STD ---
HPI - General General Date of Admission: 11/17/22 Date of Service: 11/17/22 Chief Complaint: generalized weakness/abd pain/nausea HPI Narrative NELSY ROGERS, is a 62 M who presented to the emergency department at [facility] complaining of generalized weakness that is worse in his lower extremities, left lower quadrant abdominal pain, and nausea and vomiting. Patient is extremely poor historian and has difficulty giving me any meaningful history. On review of previous records it appears he has issues with chronic nausea and vomiting and intermittent abdominal pain. He has had several abdominal scans and a gastric emptying study which was last performed in 2017 and was negative for gastroparesis. He states that over the last 3 days has had increased nausea vomiting and has not been able to keep anything down but then tells me he ate cream chip beef last night and was able to keep it down for a while but eventually vomited back up. As he is telling me about his abdominal pain, nausea vomiting he does complain that he is hungry and would like to eat. He has had no hematemesis, denies any black or sticky dark stools and states his last bowel movement was 2 days ago. He has a previous CABG and stroke. He states after his stroke he was up in the transitional care unit and would like to go back to help address his weakness. I did try to pin him down more on his weakness but he was unable to elaborate further on specifics regarding quality, length, intensity of his weakness. He does state that he is having frequent falls at home but no significant ecchymosis has been identified and he denies any injury. He indicates his pain is mostly in his left lower quadrant and does not recall hitting his side when he fell previously. He does complain of intermittent shortness of breath is worse with exertion and states has been problematic ever since he had a stroke. He has previously followed up with cardiology although on reviewing his records he has not had a recent follow-up. Patient states he is currently unable to ambulate independently. Vital signs show temperature 97.9, heart rate 97, blood pressure 147/113, respiratory rate 19 and oxygen saturations are 99% on room air. BC on presentation showed leukocytosis of 14.9 with a left shift of 79.4% neutrophilia and elevated hemoglobin at 17.5. This does appear to be hemoconcentrated. Chemistry panel showed mild hyponatremia with a sodium of 135 (this is not chronic), potassium was low at 3.4, chloride was low at 93, BUN and creatinine were 31 and 1.71 respectively which does appear close to his baseline and his glucose was 175. Liver functions were unremarkable. His lactic acid was 2.8. Amylase and lipase are both normal. His UA shows proteinuria and glucosuria but is otherwise unremarkable. CT of the abdomen pelvis shows fatty infiltration of the liver, mild diffuse bladder wall thickening and degenerative changes with prior fusion noted in the lumbar spine. In the emergency department he was treated with antiemetics and IV fluids and request for admission was made as the patient did not feel he was safe to go home and thought he needed rehab. He states that in the outpatient setting he has looked into going to a fpc because of his weakness and it is $900 a month out of pocket and he gets a check for thousand dollars a month so this is not feasible. REPLACED BY [facility] Medical History Abdominal pain FLORY (acute kidney injury) Anxiety Arteriosclerosis of coronary artery in patient with history of myocardial infarction Back pain Bradycardia Cardiomyopathy CKD (chronic kidney disease) stage 3, GFR 30-59 ml/min CVA (cerebral vascular accident) Depression Depression Diabetes Essential hypertension GERD (gastroesophageal reflux disease) Hematochezia Hyperlipidemia Intractable nausea and vomiting Ischemic cardiomyopathy Nausea Noncompliance with diabetes treatment Nonketotic hyperglycinemia Obesity Peripheral nerve injury Polyp of colon Recurrent left knee instability Renal insufficiency Secondary hypertension Smoker STEMI (ST elevation myocardial infarction) (03/05/19) Syncope Syncope and collapse Systolic CHF Tremor Type 2 diabetes mellitus Home Medications diazepam 5 mg tablet 5 mg PO BID PRN tremors 02/27/19 [History Last Taken 11/16/22] duloxetine 60 mg capsule,delayed release (Cymbalta) 60 mg PO DAILY depression 02/27/19 [History Last Taken 11/16/22] pregabalin 150 mg capsule (Lyrica) 150 mg PO BID neuropathy 02/27/19 [History Last Taken 11/16/22] aspirin 81 mg chewable tablet 81 mg PO DAILY heart health 03/10/19 [History Last Taken 11/16/22] pantoprazole 40 mg tablet,delayed release 40 mg PO DAILY acid reflux 03/10/19 [History Last Taken 11/16/22] insulin glargine 100 unit/mL (3 mL) subcutaneous pen 40 units subcut BID diabetes 03/20/19 [History Last Taken 11/16/22] clopidogrel 75 mg tablet 75 mg PO DAILY antiplatelet 08/08/19 [History Last Taken 11/16/22] magnesium oxide 400 mg PO BID supplement 08/08/19 [History Last Taken 11/16/22] multivitamin 1 tab PO DAILY supplement 08/08/19 [History Last Taken 11/16/22] potassium chloride 20 mEq tablet,extended release 20 meq PO DAILY supplement #90 tabs 09/11/19 [Rx Last Taken 11/16/22] cholecalciferol (vitamin D3) 50 mcg (2,000 unit) tablet 50 mcg PO DAILY supplement 09/27/19 [History Last Taken 11/16/22] furosemide 20 mg tablet 20 mg PO DAILY diuretic 11/20/19 [History Last Taken 11/16/22] atorvastatin 80 mg tablet 80 mg PO QHS cholesterol 11/26/19 [History Last Taken 11/16/22] insulin lispro 200 unit/mL (3 mL) subcutaneous pen (Humalog KwikPen U-200 Insulin) See Protocol subcut TIDCM diabetes 09/12/20 [History Last Taken 11/16/22] nitroglycerin 0.4 mg sublingual tablet 0.4 mg sublingual Q5M PRN Chest Pain 09/12/20 [History Last Taken Unknown] carvedilol 3.125 mg tablet 3.125 mg PO BID heart 11/17/22 [History Last Taken 11/16/22] empagliflozin 10 mg tablet (Jardiance) 10 mg PO DAILY diabetes 11/17/22 [History Last Taken 11/16/22] Allergy/AdvReac Type Severity Reaction Status Date / Time etodolac Allergy Unknown Unknown Verified 11/17/22 07:26 nifedipine [From Adalat] Allergy Unknown Verified 11/17/22 07:26 Family History Father Heart disease Son Kidney disease Surgical History History of back surgery History of coronary artery stent placement History of lumbar fusion History of umbilical hernia repair Hx of CABG S/P coronary artery bypass graft x 4 (~08/03/19) Stented coronary artery (03/06/19) Social History household members: spouse Smoking Status: Current some day smoker tobacco type: pipe alcohol intake: never substance use type: does not use caffeine: No ROS Constitutional Constitutional: Reports weakness; Denies anorexia, change in weight, chills, fatigue, fever(s), malaise, night sweats or other Eyes Eyes: Denies blurry vision, change in eye color, change in vision, discharge from eye(s), double vision, erythema, eye pain, loss of vision or other ENT HEENT: Reports abnormal hearing and hearing loss; Denies dysphagia, ear pain, epistaxis, headache(s), nasal congestion, nasal discharge, post nasal drip, sinus pressure, sore throat or other Cardiovascular Cardiovascular: Reports dyspnea on exertion; Denies chest pain, claudication, edema, lightheadedness, orthopnea, palpitations, paroxysmal nocturnal dyspnea, rapid heart rate, syncope or other Respiratory/Chest Respiratory/Chest: Reports shortness of breath with exertion; Denies cough, dyspnea, excessive phlegm production, hemoptysis, productive cough, shortness of breath at rest, wheezing or other Gastrointestinal Gastrointestinal: Reports abdominal pain, nausea and vomiting; Denies coffee ground emesis, constipation, diarrhea, dyspepsia, hematemesis, hematochezia, loose stools, melena or other Genitourinary Genitourinary: Denies burning urination, difficulty urinating, dysuria, hematuria, nocturia, urinary frequency, urinary hesitancy, urinary incontinence, urinary urgency or other Musculoskeletal Musculoskeletal: Reports back pain, joint pain and joint stiffness; Denies arthralgias, joint swelling, myalgias, neck pain or other Neurologic Neurologic: Reports numbness, paresthesias RUE, RLE, LUE and LLE and other Details: Patient suffers from diabetic polyneuropathy Psychiatric Psychiatric: Reports depression; Denies anxiety, homicidal ideation, suicidal ideation or other Endocrine Endocrinology: Denies change in body appearance, cold intolerance, excessive sweating, heat intolerance, polydipsia, polyuria or other Hematologic/Lymphatic Hematologic/Lymphatic: Denies anemia, easy bleeding, easy bruising, lymphadenopathy or other Allergic/Immunologic Allergic/Immunologic: Denies rhinitis, hives, eczemia, asthma or other Vital Signs Vital Signs Vital Signs: 11/17/22 07:21 Temperature 97.9 F Temperature Source Temporal Pulse Rate 97 Respiratory Rate 19 H Blood Pressure 147/113 H Blood Pressure Mean 124 Pulse Ox 99 Oxygen Delivery Method Room Air Weight Weight: 94.4 kg Body Mass Index (BMI) 29.8 Physical Exam Const alert, oriented x3 and no apparent distress Constitutional Narrative: Upper middle-aged white male, obese, appears much older than stated age, lying in bed, appears comfortable at this time, nontoxic, appears chronically ill General Appearance: cooperative HEENT normocephalic, head/scalp atraumatic and moist oral mucous membranes; Negative for hearing grossly normal bilaterally HEENT Narrative: Mild hearing loss, dentition is poor, Mallampati 3, no thrush Eyes PERRL, EOMs intact bilaterally and conjunctivae normal Eyes Narrative: No scleral icterus Neck no lymphadenopathy, supple and no JVD Neck Narrative: Trachea is midline, no thyroid enlargement Resp normal respiratory effort, no retractions and no use of accessory muscles Resp Narrative: Diffusely diminished but clear with no adventitious sounds patient does have some tachypnea with exertion but this does improve with rest Auscultation: Negative for rales, rhonchi or wheezes Cardio regular rate, regular rhythm, S1 normal heart sound, S2 normal heart sound, no murmurs, no rub, no gallops and no clicks GI normal to inspection, nondistended, normoactive bowel sounds and soft to palpation GI Narrative: Mild tenderness in left lower and left upper quadrant area/lateral abdomen Palpation: Negative for guarding Extremity no clubbing, cyanosis or edema Skin skin turgor normal, no jaundice, no petechiae and no mottling Skin Narrative: Multiple tattoos, no open wounds, evidence of previous abrasion on his left vivas and less so on his right vivas Neuro oriented x3, CN's II-XII intact bilaterally, moves all extremities and no focal motor deficits Neuro Narrative: No clonus, reflexes 1+ throughout, generalized weakness noted but no drift with upper or lower extremity Speech: speech normal Psych affect normal Psych Narrative: Very pleasant, eye contact is good, patient is appropriately interactive however does seem to have some intermittent tangential thought processes Results Lab / Micro Data Attestation: I reviewed the patient's lab results. 11/17/22 07:00 11/17/22 07:00 Labs: Laboratory Results - last 24 hr 11/17/22 07:00: WBC 14.9 H, RBC 6.11, Hgb 17.5 H, Hct 50.1, MCV 82.0, MCH 28.6, MCHC 34.9, RDW Std Deviation 38.7, RDW Coeff of Jr 13.2, Plt Count 246, MPV 12.1 H, Immature Gran % (Auto) 1.000 H, Neut % (Auto) 79.4 H, Lymph % (Auto) 11.9 L, Sandoval % (Auto) 6.7, Eos % (Auto) 0.7, Baso % (Auto) 0.3, Absolute Neuts (auto) 11.8 H, Absolute Lymphs (auto) 1.78, Nucleated RBC % 0, Sodium 131 L, Potassium 3.4 L, Chloride 93 L, Carbon Dioxide 25.0, Anion Gap 13, BUN 31 H, Creatinine 1.71 H, Estim Creat Clear Calc 45.06, Est GFR (MDRD) Af Amer 52 L, Est GFR (MDRD) Non-Af 43 L, BUN/Creatinine Ratio 18.1, Glucose 175 H, Lactic Acid 2.8 H*, Calcium 9.3, Total Bilirubin 1.00, AST 19, ALT 26, Alkaline Phosphatase 136 H, Troponin I High Sens 52, Total Protein 7.6, Albumin 3.2, Globulin 4.4 H, Albumin/Globulin Ratio 0.7 L, Lipase 30 11/17/22 08:15: Urine Color Yellow, Urine Clarity Sl. Cloudy, Urine pH 7.0, Ur Specific Pound 1.015, Urine Protein 500 H, Urine Glucose (UA) 1000 H, Urine Ketones Negative, Urine Occult Blood 25 H, Urine Nitrite Negative, Urine Bilirubin Negative, Urine Urobilinogen Normal, Ur Leukocyte Esterase Negative, Urine RBC 0-5 SEEN, Urine WBC 0 SEEN, Ur Squamous Epith Cells 0-5 SEEN, Urine Bacteria 0 SEEN, Urine Mucus 0 SEEN Radiology Impression Abdomen/Pelvis CT 11/17/22 07:29 IMPRESSION: Fatty infiltration of the liver. Mild degree of diffuse bilateral wall thickening. The remainder of the examination is unchanged. Electronically Signed: You Thorpe MD at 9:15 EDT , Assessment & Plan Assessment/Plan (1) Acidosis, lactic: (2) Acute hyponatremia: (3) Abdominal pain: (4) Leukocytosis: (5) Generalized weakness: (6) Debility: (7) Hypokalemia: (8) Erythrocytosis: PLAN: Plan Abdominal pain/nausea/vomiting -This is acute on chronic -CT of the abdomen pelvis is unremarkable -Amylase and lipase are normal so doubt mesenteric ischemia or pancreatitis -Previous gastric emptying study was unremarkable but this was in 2017 -This could have changes he appears to be a fairly poorly controlled diabetic at baseline with hemoglobin A1c running 9-10 -We will utilize Reglan 2.5 mg 3 times daily -As needed Zofran -IV fluids with LR x1 L -As needed medication for pain with morphine 2 mg every 3 hours--> would prefer limited use Generalized weakness/debility/falls -No focal deficits leading me to believe we need to do any further imaging -PT/OT consultation -She does have neuropathy which may contribute to this -May need placement at discharge depending how he does functionally--> Case management/social work consulted Hypokalemia -40 mill equivalents IV potassium -Continue home potassium supplementation -We will hold Lasix for now and restart tomorrow Lactic acidosis -Probably related to some dehydration with elevated serum creatinine at baseline and decreased clearance -Patient does not appear to have a septic picture -IV fluids x1 L -Repeat for improvement Acute mild hyponatremia -Likely related to hypovolemic hyponatremia -IV fluids as noted above -If does not improve may need further work-up Erythrocytosis -Likely hemoconcentration -Repeat CBC in a.m. Leukocytosis -Likely hemoconcentration -Repeat CBC in a.m. CAD/ischemic cardiomyopathy/hypertension/hyperlipidemia -We will refer patient back to spinal surgeon at the time of discharge--> has not seen cardiology here since 11/2019 -08/03/2019 he underwent bypass surgery at [facility]. He had a ST to LAD; ABHI and SVG to the OM and PDA. -EKG on presentation without any acute findings -Continue aspirin -Continue statin -Continue carvedilol Continue Jardiance -Continue Plavix -Hold Lasix for today and restart tomorrow -Last echocardiogram done in 2018 showed an EF of 15 to 20% with stage I diastolic dysfunction, and right ventricular systolic pressure of 25 mmHg History of stroke -January 2019 -Had left-sided weakness which had improved overall -Continue aspirin and Plavix DM-2 -Check hemoglobin A1c -Patient has not been well controlled previously with previous hemoglobin A1c is running between 9 and 10 -Continue home Lantus 40 units twice daily -Sliding scale -If and may need scheduled prandial insulin--> we will monitor -Accu-Cheks as ordered -Gaston to a cardiac carb controlled diet once full diet can be taken Diabetic neuropathy -Continue home Lyrica Tremors -Continue home as needed diazepam Chronic low back pain -History of lumbar fusion DVT prophylaxis -heparin 5000 units 3 times daily CODE STATUS -Full code as verified on admission Charges/Coding Visit Charges Inpatient E&M: 59254 Init Hosp L3
[2022-11-17 09:48] VITALS: BP 149/72; PULSE 87; RESP 19; TEMP 36.6; O2SAT 100
[2022-11-17 09:52] LABS: Amylase 28 U/L (25-115)
[2022-11-17 11:00] VITALS: BP 170/90; PULSE 91; RESP 18; TEMP 36.7; O2SAT 98
[2022-11-17 11:05] VITALS: O2SAT 99
[2022-11-17 11:12] VITALS: BMI 29.8
[2022-11-17 11:42] LABS: Bedside Glucose 188 mg/dL (74-106)
[2022-11-17 11:47] LABS: Reflex Lactate? Y
[2022-11-17] MEDS: Lactated Ringers 1,000 ML 100 ML IV (11:57)
[2022-11-17] MEDS: Potassium Chloride 10mEq/100mL 10 MEQ/100 ML IV.SOLN. 100 MEQ IV BOLUS ×4 (11:57→15:38)
[2022-11-17] MEDS: Insulin Glargine-YFGN 100 UNIT/ML Pen 40 UNIT SC ×2 (12:05→21:20)
[2022-11-17] MEDS: 0.9% Saline Lock 10 ML Syringe IV ×2 (12:09→14:35)
[2022-11-17] MEDS: Magnesium Chloride 64 MG Delay Rel.Tablet 128 MG PO ×2 (13:05→21:20)
[2022-11-17] MEDS: Clopidogrel Bisulfate 75 MG Tablet PO (13:05)
[2022-11-17] MEDS: Cholecalciferol (VIT D3) 25 MCG TABLET (1,000 UNITS) 50 MCG PO (13:05)
[2022-11-17] MEDS: DULoxetine Hcl 60 MG Capsule PO (13:06)
[2022-11-17] MEDS: Potassium Chloride Oral Tablet 20 MEQ PO (13:06)
[2022-11-17] MEDS: Carvedilol 3.125 MG TABLET PO ×2 (13:06→21:21)
[2022-11-17] MEDS: Pantoprazole Sodium 40 MG Tablet PO (13:06)
[2022-11-17] MEDS: Empagliflozin 10 MG Tablet PO (13:06)
[2022-11-17] MEDS: Multivitamins,Therapeutic Tablet 1 TABLET PO (13:06)
[2022-11-17] MEDS: Aspirin 81 MG TAB.CHEW PO (13:06)
[2022-11-17] MEDS: Insulin Lispro 100 UNIT/ML INSULN.PEN SC ×2 (13:07→17:01)
[2022-11-17] MEDS: Pregabalin 75 MG Capsule 150 MG PO ×2 (13:11→21:18)
[2022-11-17 13:12] LABS: Lactic Acid 3.4 mmol/L (0.4-1.9)
--- NOTE | 2022-11-17 13:17 | ECHOCS_ITS ---
Reason For Study: CORONARY ARTERY DISEASE Procedure This was a 2D Doppler, Color Flow transthoracic echocardiogram. Contrast injection was performed. Exam performed portable in patient room. Left Ventricle Normal LV size. The estimated ejection fraction is 35 %. Stage 1 diastolic dysfunction. Hypokinesis of the inferior wall and septum. Right Ventricle Normal RV size. Normal systolic function. Atria Normal left atrium. Normal right atrium. No doppler evidence for ASD. Mitral Valve There is no mitral valve stenosis. No mitral valve insufficiency. Tricuspid Valve There is no tricuspid stenosis. Trivial tricuspid valve insufficiency. Unable to estimate RV systolic pressure due to insufficient tricuspid regurgitant envelope. Aortic Valve Trisinus/trileaflet aortic valve. There is no aortic stenosis. No aortic valve insufficiency. Pulmonic Valve There is no pulmonic valvular stenosis. No pulmonic valve insufficiency. Great Vessels Normal aortic root. Pericardium/Pleural No pericardial effusion. Medication Diluted definity 2.5ml given slow IV push to enhance endocardial definition. MMode/2D Measurements & Calculations LVIDd: 4.9 cm IVSd: 1.5 cm LVOT diam: 2.0 cm LVIDs: 4.5 cm LVPWd: 0.99 cm RVDd: 2.9 cm FS: 8.9 % LVOT area: 3.2 cm2 Ao root diam: 3.6 cm LAV(MOD-bp): 39.3 ml LVAd ap4: 36.5 cm2 LAV(MOD-bp) Indexed: 18.5 ml/m2 LVLd ap4: 8.3 cm LAV(MOD-sp2): 45.3 ml EDV(MOD-sp4): 127.7 ml LAV(MOD-sp4): 28.9 ml EDV(sp4-el): 136.5 ml LVAs ap4: 27.2 cm2 LVLs ap4: 7.2 cm ESV(MOD-sp4): 83.7 ml ESV(sp4-el): 87.2 ml EF(MOD-sp4): 34.5 % EF(sp4-el): 36.1 % LVAd ap2: 42.9 cm2 SV(MOD-sp4): 44.0 ml SV(MOD-sp2): 55.9 ml LVLd ap2: 8.4 cm EDV(MOD-sp2): 173.9 ml EDV(sp2-el): 185.5 ml LVAs ap2: 32.3 cm2 LVLs ap2: 7.3 cm ESV(MOD-sp2): 117.9 ml ESV(sp2-el): 121.9 ml EF(MOD-sp2): 32.2 % SV(sp4-el): 49.3 ml LA dimension(2D): 3.9 cm LA A4 area: 12.1 cm2 RA A4 area: 11.8 cm2 TAPSE: 1.0 cm Time Measurements MV dec time: 0.24 sec Doppler Measurements & Calculations MV E max kulwinder: 30.2 cm/sec Lat Peak E' Kulwinder: 8.4 cm/sec Med Peak E' Kulwinder: 4.9 cm/sec MV A max kulwinder: 69.1 cm/sec E/E' lat: 3.6 E/E' med: 6.2 MV E/A: 0.44 Ao V2 max: 79.8 cm/sec LV V1 max: 84.0 cm/sec MV dec slope: 125.3 cm/sec2 Ao max P.5 mmHg LV V1 max P.8 mmHg Ao V2 mean: 62.5 cm/sec LV V1 mean P.7 mmHg Ao mean P.6 mmHg LV V1 mean: 62.8 cm/sec Ao V2 VTI: 14.4 cm LV V1 VTI: 13.5 cm AV (velocity ratio): 0.93 STACI(I,D): 3.0 cm2 STACI(V,D): 3.4 cm2 SV(LVOT): 42.9 ml PA V2 max: 75.3 cm/sec PA max PG (full): 0.98 mmHg ECHO/Echo Complete W/ Contrast Interpretation Summary The estimated ejection fraction is 35 %. Stage 1 diastolic dysfunction. Hypokinesis of the inferior wall and septum Ordering Physician: Clara Whiteside Referring Physician: Chema Mckeon Performed By: Kristy Ramírez RDCS
[2022-11-17] MEDS: Heparin Injection (Vial) 5,000 UNIT/ML VIAL 5000 UNIT SC ×2 (14:32→21:19)
[2022-11-17] MEDS: Metoclopramide 10 MG/2 ML Vial 2.5 MG IV ×2 (14:34→21:19)
[2022-11-17 14:45] VITALS: BP 132/107; PULSE 88; RESP 18; TEMP 36.6; O2SAT 100
[2022-11-17 16:34] LABS: Bedside Glucose 214 mg/dL (74-106)
[2022-11-17 21:00] VITALS: BP 164/96; PULSE 83; RESP 16; TEMP 36.8; O2SAT 98
[2022-11-17] MEDS: Atorvastatin Calcium 80 MG Tablet PO (21:21)
[2022-11-17] MEDS: Nystatin Powder 15gm Bottle 1 APPLIC TOPICAL (21:24)
[2022-11-17] MEDS: Menthol/Lanolin/Calamine/Znox 113 GM Tube 1 APPLIC TOPICAL (21:24)
[2022-11-17 21:42] LABS: Bedside Glucose 148 mg/dL (74-106)
[2022-11-18 02:23] VITALS: BP 148/81; PULSE 79; RESP 18; TEMP 36.6; O2SAT 96
[2022-11-18] MEDS: Metoclopramide 10 MG/2 ML Vial 2.5 MG IV (05:51)
[2022-11-18] MEDS: Heparin Injection (Vial) 5,000 UNIT/ML VIAL 5000 UNIT SC ×3 (05:54→21:44)
[2022-11-18 06:11] LABS: Absolute Lymphocyte Count 1.44 X10^3/uL (0.83-4.51); Absolute Neutrophil Count 6.2 X10^3/uL (2.0-7.7); Basophil# 0.06 X10^3/uL; Basophil% 0.7 % (0-1); Eosinophil# 0.16 X10^3/uL; Eosinophils% 1.8 % (0-5); Hematocrit 47.6 % (40-54); Hemoglobin 16.6 g/dL (13.0-16.5); Lymphocyte # 1.44 X10^3/ul (0.83-4.51); Lymphocyte % 16.5 % (19-41); Mean Corp Hgb Conc 34.9 g/dL (32-36); Mean Corpuscular Hgb 28.9 pg (27.0-32.0); Mean Corpuscular Volume 82.9 fL (80-94); Monocyte# 0.82 X10^3/uL; Monocyte% 9.4 % (0-10); NRBC Flagged by Analyzer 0 % (0-5); Neutrophil # 6.17 X10^3/uL (2.7-7.7); Neutrophil % 70.5 % (47-70); Platelet Count 228 K/mm3 (150-450); RBC Distribution Width CV 13.4 % (11.6-14.6); RBC Distribution Width SD 40.7 fl (35.1-43.9); Red Blood Count 5.74 M/mm3 (4.6-6.2); White Blood Count 8.8 K/mm3 (4.4-11.0)
[2022-11-18 06:23] LABS: Prothrombin Time (Protime)PT. 12.9 SECONDS (11.7-14.9)
[2022-11-18 06:27] LABS: Bedside Glucose 73 mg/dL (74-106)
[2022-11-18 07:02] LABS: Anion Gap 5 (5-15); BUN 24 mg/dL (7-18); BUN/Creat Ratio 16.6 RATIO (10-20); Calcium,Total 8.8 mg/dL (8.5-10.1); Chloride 104 mmol/L (98-107); Creatinine, Serum 1.45 mg/dL (0.70-1.30); EST Glomerular Filtration Rate 52 mL/min (>60); Est Glom Filt Rate - Afr Amer 63 mL/min (>60); Estimated Creatinine Clearance 53.14 ml/min; Glucose 61 mg/dL (74-106); Potassium 3.6 mmol/L (3.5-5.1); Sodium Level 136 mmol/L (136-145)
[2022-11-18 08:50] VITALS: BP 157/86; PULSE 78; RESP 18; TEMP 36.8; O2SAT 97
[2022-11-18] MEDS: Clopidogrel Bisulfate 75 MG Tablet PO (08:51)
[2022-11-18] MEDS: Pantoprazole Sodium 40 MG Tablet PO (08:51)
[2022-11-18] MEDS: Potassium Chloride Oral Tablet 20 MEQ PO (08:51)
[2022-11-18] MEDS: Empagliflozin 10 MG Tablet PO (08:51)
[2022-11-18] MEDS: Pregabalin 75 MG Capsule 150 MG PO ×2 (08:51→21:40)
[2022-11-18] MEDS: Multivitamins,Therapeutic Tablet 1 TABLET PO (08:52)
[2022-11-18] MEDS: Aspirin 81 MG TAB.CHEW PO (08:52)
[2022-11-18] MEDS: Magnesium Chloride 64 MG Delay Rel.Tablet 128 MG PO ×2 (08:52→21:40)
[2022-11-18] MEDS: Furosemide 20 MG Tablet PO (08:52)
[2022-11-18] MEDS: Cholecalciferol (VIT D3) 25 MCG TABLET (1,000 UNITS) 50 MCG PO (08:52)
[2022-11-18] MEDS: DULoxetine Hcl 60 MG Capsule PO (08:52)
[2022-11-18] MEDS: Menthol/Lanolin/Calamine/Znox 113 GM Tube 1 APPLIC TOPICAL ×2 (08:52→21:41)
[2022-11-18] MEDS: Carvedilol 3.125 MG TABLET PO ×2 (08:52→21:40)
[2022-11-18] MEDS: Nystatin Powder 15gm Bottle 1 APPLIC TOPICAL ×2 (08:53→21:41)
--- NOTE | 2022-11-18 09:20 | CASEMGMT ---
Discharge Planning SNF list created and sent to SW. Chelsea Akhtar, Discharge Planning Asst.
--- NOTE | 2022-11-18 10:04 | PCM.PN.HOSP ---
Reason for Visit Reason for Visit: Generalized weakness/abdominal pain/nausea/vomiting Subjective Subjective Patient states he is feeling much better today. Nausea vomiting has resolved. Is asking for regular diet which was ordered. States he would like to go to the fourth floor which is rehab. I did inform him that was likely would not qualify for rehab but TCU would be an option for ongoing therapy. It does appear that he will need ongoing therapy prior to discharge based on his physical therapy evaluation yesterday. He has no complaints other than what he wants food at this time. Abdominal pain is significantly improved and he states he feels like it might have been a pulled muscle from vomiting. Objective Data Objective Data Vital Signs: Vital Signs Temp Pulse Resp BP Pulse Ox O2 Del Method 98.2 F 78 18 157/86 H 97 Room Air 11/18/22 08:50 11/18/22 08:50 11/18/22 08:50 11/18/22 08:50 11/18/22 08:50 11/18/22 09:00 Oxygen Delivery Method Room Air Weight: 94.4 kg Body Mass Index (BMI) 29.8 Intake & Output: Intake and Output for Last 24 Hours 11/16/22 11/17/22 11/18/22 23:59 23:59 23:59 Intake Total 3500 / 3500 250 / 250 Output Total 875 / 875 400 / 400 Balance 2625 / 2625 -150 / -150 Lab / Micro Data 11/18/22 05:50 11/18/22 05:50 Labs: Laboratory Results - last 24 hr 11/17/22 11:23: POC Glucose 188 H 11/17/22 12:26: Lactic Acid 3.4 H* 11/17/22 16:16: POC Glucose 214 H 11/17/22 21:02: POC Glucose 148 H 11/18/22 05:50: WBC 8.8, RBC 5.74, Hgb 16.6 H, Hct 47.6, MCV 82.9, MCH 28.9, MCHC 34.9, RDW Std Deviation 40.7, RDW Coeff of Jr 13.4, Plt Count 228, MPV 11.0, Immature Gran % (Auto) 1.100 H, Neut % (Auto) 70.5 H, Lymph % (Auto) 16.5 L, Garrard % (Auto) 9.4, Eos % (Auto) 1.8, Baso % (Auto) 0.7, Absolute Neuts (auto) 6.2, Absolute Lymphs (auto) 1.44, Nucleated RBC % 0, PT 12.9, INR 1.0, Sodium 136, Potassium 3.6, Chloride 104, Carbon Dioxide 27.0, Anion Gap 5, BUN 24 H, Creatinine 1.45 H, Estim Creat Clear Calc 53.14, Est GFR (MDRD) Af Amer 63, Est GFR (MDRD) Non-Af 52 L, BUN/Creatinine Ratio 16.6, Glucose 61 L, Calcium 8.8, Magnesium 2.0 11/18/22 06:01: POC Glucose 73 L Physical Exam Const alert, oriented x3 and no apparent distress Constitutional Narrative: Upper middle-aged white male, obese, appears much older than stated age, sitting up in bed watching television and ordering breakfast, nursing at bedside, appears comfortable at this time, nontoxic, appears chronically ill General Appearance: cooperative HEENT normocephalic, head/scalp atraumatic and moist oral mucous membranes; Negative for hearing grossly normal bilaterally HEENT Narrative: Mallampati 2-3, no thrush, dentition is poor Resp normal respiratory effort, no retractions and no use of accessory muscles Resp Narrative: Diffusely diminished but clear Auscultation: Negative for rales, rhonchi or wheezes Cardio regular rate, regular rhythm, S1 normal heart sound, S2 normal heart sound, no murmurs, no rub, no gallops and no clicks GI normal to inspection, nondistended, normoactive bowel sounds and soft to palpation GI Narrative: Very minimal tenderness left lower quadrant which is improved since admission Extremity no clubbing, cyanosis or edema Neuro oriented x3, moves all extremities and no focal motor deficits Neuro Narrative: No clonus, reflexes 1+ throughout, generalized weakness noted but no drift with upper or lower extremity Speech: speech normal Psych affect normal Psych Narrative: Very pleasant, eye contact is good, patient is appropriately interactive however does seem to have some intermittent tangential thought processes Assessment & Plan Assessment/Plan (1) Acidosis, lactic: (2) Acute hyponatremia: (3) Abdominal pain: (4) Leukocytosis: (5) Generalized weakness: (6) Debility: (7) Hypokalemia: (8) Erythrocytosis: PLAN: Plan Abdominal pain/nausea/vomiting -Resolved at this time -CT of the abdomen pelvis from admission was unremarkable -Amylase and lipase were normal so doubt mesenteric ischemia or pancreatitis -Previous gastric emptying study was unremarkable but this was in 2017 -This could have changes he appears to be a fairly poorly controlled diabetic at baseline with hemoglobin A1c running 9-10 -Continue Reglan but transition to 5 mg 3 times daily orally -As needed Zofran -Discontinue IV fluids -Discontinue IV pain medication -Advance to regular diet Generalized weakness/debility/falls -No focal deficits leading me to believe we need to do any further imaging -PT/OT following -She does have neuropathy which may contribute to this -Will need placement--> discussed with case management--> will need pre-CERT once acceptance from facility Hypokalemia - resolved -Repeat BMP in a.m. Lactic acidosis -This appears to be chronic when I reviewed his previous labs -suspect type B lactic acidosis Acute mild hyponatremia -Resolved Erythrocytosis -Still mildly elevated but improved -Repeat CBC in a.m. Leukocytosis -Resolved CAD/ischemic cardiomyopathy/hypertension/hyperlipidemia -We will refer patient back to plant inspector at the time of discharge--> has not seen cardiology here since 11/2019 -08/03/2019 he underwent bypass surgery at [facility]. He had a ST to LAD; ABHI and SVG to the OM and PDA. -EKG on presentation without any acute findings -Continue aspirin -Continue statin -Continue carvedilol -Continue Jardiance -Continue Plavix -Lasix restarted today -Last echocardiogram done in 2018 showed an EF of 15 to 20% with stage I diastolic dysfunction, and right ventricular systolic pressure of 25 mmHg -Repeat echo is pending CKD stage IIIb -Baseline serum creatinine appears to be between 1.35 and 1.65 -Current serum creatinine is 1.45 down from 1.71 yesterday -Continue to monitor -Lasix was reinitiated this morning History of stroke -January 2019 -Had left-sided weakness which had improved overall -Continue aspirin and Plavix DM-2 -hemoglobin A1c is pending -Patient has not been well controlled previously with previous hemoglobin A1c is running between 9 and 10 -Continue home Lantus 40 units twice daily -Sliding scale -If and may need scheduled prandial insulin--> we will monitor further today now that p.o. diet has been initiated -Accu-Cheks as ordered -Gaston to a cardiac carb controlled diet once full diet can be taken Diabetic neuropathy -Continue home Lyrica Tremors -Continue home as needed diazepam Chronic low back pain -History of lumbar fusion DVT prophylaxis -Continue heparin 5000 units 3 times daily CODE STATUS -Full code as verified on admission Disposition: -Patient appears to be medically stable for discharge as long as he tolerates p.o. without a issue. I discussed with case management and they will start finding a place for him to go for rehab as well as initiate pre-CERT once he is accepted. Charges/Coding Visit Charges Inpatient E&M: 20540 Subs Hosp L2
[2022-11-18] MEDS: Insulin Glargine-YFGN 100 UNIT/ML Pen 40 UNIT SC ×2 (10:44→21:42)
[2022-11-18 10:56] LABS: Hemoglobin A1c 10.5 % (3.8-5.6)
[2022-11-18 10:59] LABS: Bedside Glucose 188 mg/dL (74-106)
--- NOTE | 2022-11-18 11:01 | CASEMGMT ---
Social Work SW?to room to meet with patient for initial transition planning/care coordination?assessment.?SW?introduced self and role at [facility].? Pt voices understanding and consents to?assessment.? Pt is A/Ox4 and answers all questions appropriately.?? Care providers, pharmacy, and demographics verified. PCP: Mike Specialists: none Preferred Pharmacy: [facility] Insurance: [place] Medicare and [facility] Medicaid Prescription Benefit: Yes? Living Will/HPOA:?Pt has a living will and healthcare POA on file. Naming his Leonides Munoz LNOK: Karen Munoz , Vanesa Reza daughter, Abraham Munoz son Living Arrangements: Pt lives in a two story home with first floor setup and ramp enterance. Pt lives with his and she assists him with ADLs and household tasks. Pt has been increasingly weaker over the last year and is not in the wheelchair most of the time for safety. Transportation:? provides DME: wheelchair, walker, rollator, cane, shower chair, 3 in 1 commode ? HHC/SNF: [facility], TCU, SW[facility] Pt feels he cannot return home at this time due to increasing weakness. Pt would like to go to [facility]. SW explained that insurance will not approve rehab stay at this time. A list of SNF providers including quality and resource use data and consistent with the patient?s preferred geographic region, medical needs, and insurance network were provided from the [employer] Guide. Pt preferred provider is [facility] TCU. Referral to Susie in TCU. SW will await determination of acceptance. PLAN: TCU, pending acceptance and precert AVANI Edmondson
--- NOTE | 2022-11-18 11:51 | CASEMGMT ---
Addendum entered by Cheyenne Jay 11/18/22 15:06: Social Work SW met with pt and and prefered provider is [facility]. Referral made and they are able to accept. Precert started at this time. Pt and updated and agreeable. Plan: [facility], pending precert AVANI Edmondson Original Note: Social Work TCU is not able to accept. SW met with pt and updated on this. SW assisted pt in reviewing SNF list. Pt states his will be in at 2 and they will discuss and make a choice at that time. SW to continue to follow. AVANI Edmondson
[2022-11-18] MEDS: Metoclopramide 5 MG TABLET PO ×2 (11:54→16:33)
[2022-11-18] MEDS: Insulin Lispro 100 UNIT/ML INSULN.PEN SC ×2 (11:54→16:36)
--- NOTE | 2022-11-18 14:13 | CASEMGMT ---
Discharge Planning Referral sent to [facility] via [facility]. Chelsea Akhtar, Discharge Planning Asst.
[2022-11-18 14:20] VITALS: BP 128/83; PULSE 97; RESP 18; TEMP 36.6; O2SAT 97
--- NOTE | 2022-11-18 14:44 | CHAPLAIN ---
Type of Pastoral Visit _x__ Initial Visit ___ Follow-up Visit ___ On-call Visit ___ General Patient Visit ___ Spiritual Assessment ___ Family Conference ___ Bereavement ___ Rapid Response ___ Code Blue ___ Other (describe below) Pastoral Care Referral From _x__ Patient ___ Family ___ Nurse ___ Physician ___ Human Projectile ___ Machine Fancy Stitcher ___ Other (describe below) Sacrament/Intervention _x__ Active listening ___ Anointing ___ Confucianist ___ Bereavement ___ Communion _x__ Padmini exploration ___ _x__ Life review _x__ Prayer ___ Reconciliation ___ Sacrament of Sick ___ Supportive presence ___ Wedding ___ Other (describe below) Pastoral Comments patient is eager to talk about his life, his work history, how much money he made, his granddaughters; lots of time given to listen and affirm pt in his current health issues; pt goal is to be able to walk and asks for prayer support in that; pt gets a bit tearful at this point; supportive affirmation
--- NOTE | 2022-11-18 15:00 | CASEMGMT ---
Discharge Planning Asst. Patient has been accepted by [facility]. Asked that pre-cert be started. Chelsea Akhtar, Discharge Planning Asst.
[2022-11-18 16:55] LABS: Bedside Glucose 228 mg/dL (74-106)
[2022-11-18 21:35] VITALS: BP 156/85; PULSE 87; RESP 18; TEMP 36.6; O2SAT 98
[2022-11-18] MEDS: Atorvastatin Calcium 80 MG Tablet PO (21:40)
[2022-11-18] MEDS: Senna/Docusate Sodium 1 Tablet 2 TABLET PO (21:41)
[2022-11-19] MEDS: traZODone 50 MG Tablet PO (00:03)
[2022-11-19 00:35] LABS: Bedside Glucose 278 mg/dL (74-106)
[2022-11-19 04:12] VITALS: BP 151/97; PULSE 88; RESP 18; TEMP 36.9; O2SAT 99
[2022-11-19] MEDS: Heparin Injection (Vial) 5,000 UNIT/ML VIAL 5000 UNIT SC (05:45)
[2022-11-19] MEDS: Metoclopramide 5 MG TABLET PO ×2 (05:46→11:15)
[2022-11-19 06:08] LABS: Bedside Glucose 145 mg/dL (74-106)
[2022-11-19 06:25] LABS: Absolute Lymphocyte Count 1.08 X10^3/uL (0.83-4.51); Absolute Neutrophil Count 5.4 X10^3/uL (2.0-7.7); Basophil# 0.06 X10^3/uL; Basophil% 0.8 % (0-1); Eosinophil# 0.26 X10^3/uL; Eosinophils% 3.4 % (0-5); Hematocrit 43.3 % (40-54); Hemoglobin 14.5 g/dL (13.0-16.5); Lymphocyte # 1.08 X10^3/ul (0.83-4.51); Lymphocyte % 14.2 % (19-41); Mean Corp Hgb Conc 33.5 g/dL (32-36); Mean Corpuscular Hgb 28.8 pg (27.0-32.0); Mean Corpuscular Volume 85.9 fL (80-94); Mean Platelet Vol. 11.4 fl (6.2-12.0); Monocyte# 0.71 X10^3/uL; Monocyte% 9.3 % (0-10); NRBC Flagged by Analyzer 0 % (0-5); Neutrophil # 5.41 X10^3/uL (2.7-7.7); Neutrophil % 71.1 % (47-70); Platelet Count 162 K/mm3 (150-450); RBC Distribution Width CV 13.2 % (11.6-14.6); RBC Distribution Width SD 41.1 fl (35.1-43.9); Red Blood Count 5.04 M/mm3 (4.6-6.2); White Blood Count 7.6 K/mm3 (4.4-11.0)
[2022-11-19 06:59] LABS: Anion Gap 8 (5-15); BUN 35 mg/dL (7-18); BUN/Creat Ratio 18.1 RATIO (10-20); Calcium,Total 8.7 mg/dL (8.5-10.1); Chloride 105 mmol/L (98-107); Creatinine, Serum 1.93 mg/dL (0.70-1.30); EST Glomerular Filtration Rate 37 mL/min (>60); Est Glom Filt Rate - Afr Amer 45 mL/min (>60); Estimated Creatinine Clearance 39.93 ml/min; Glucose 141 mg/dL (74-106); Potassium 3.7 mmol/L (3.5-5.1); Sodium Level 137 mmol/L (136-145)
[2022-11-19 08:01] VITALS: O2SAT 96
[2022-11-19 08:24] VITALS: O2SAT 97
[2022-11-19] MEDS: DULoxetine Hcl 60 MG Capsule PO (09:53)
[2022-11-19] MEDS: Pregabalin 75 MG Capsule 150 MG PO (09:53)
[2022-11-19] MEDS: Carvedilol 3.125 MG TABLET PO (09:53)
[2022-11-19] MEDS: Aspirin 81 MG TAB.CHEW PO (09:53)
[2022-11-19] MEDS: Empagliflozin 10 MG Tablet PO (09:53)
[2022-11-19] MEDS: Potassium Chloride Oral Tablet 20 MEQ PO (09:53)
[2022-11-19] MEDS: Furosemide 20 MG Tablet PO (09:53)
[2022-11-19] MEDS: Insulin Glargine-YFGN 100 UNIT/ML Pen 40 UNIT SC (09:53)
[2022-11-19] MEDS: Magnesium Chloride 64 MG Delay Rel.Tablet 128 MG PO (09:54)
[2022-11-19] MEDS: Pantoprazole Sodium 40 MG Tablet PO (09:54)
[2022-11-19] MEDS: Multivitamins,Therapeutic Tablet 1 TABLET PO (09:54)
[2022-11-19] MEDS: Menthol/Lanolin/Calamine/Znox 113 GM Tube 1 APPLIC TOPICAL (09:54)
[2022-11-19] MEDS: Cholecalciferol (VIT D3) 25 MCG TABLET (1,000 UNITS) 50 MCG PO (09:54)
[2022-11-19] MEDS: Nystatin Powder 15gm Bottle 1 APPLIC TOPICAL (09:54)
[2022-11-19] MEDS: Clopidogrel Bisulfate 75 MG Tablet PO (09:54)
[2022-11-19 10:00] VITALS: BP 133/89; PULSE 89; RESP 18; TEMP 36.8; O2SAT 99
[2022-11-19 10:17] LABS: Bedside Glucose 265 mg/dL (74-106)
[2022-11-19] MEDS: Insulin Lispro 100 UNIT/ML INSULN.PEN SC (11:15)
--- NOTE | 2022-11-19 11:47 | PCM.DC.SUM ---
Providers Date of Admission: 11/17/22 Primary Care Physician: Dr. Chema Mckeon DO Reason For Visit: ABD PAIN, VOMITING, WEAKNESS, HYPONATREMIA Diagnosis Discharge Diagnosis (1) Acidosis, lactic: Status: Acute Code(s): E87.20 - Acidosis, unspecified (2) Acute hyponatremia: Status: Acute Code(s): E87.1 - Hypo-osmolality and hyponatremia (3) Abdominal pain: Status: Acute Code(s): R10.9 - Unspecified abdominal pain (4) Leukocytosis: Status: Acute Code(s): D72.829 - Elevated white blood cell count, unspecified (5) Generalized weakness: Status: Acute Code(s): R53.1 - Weakness (6) Debility: Status: Chronic Code(s): R53.81 - Other malaise (7) Hypokalemia: Status: Acute Code(s): E87.6 - Hypokalemia (8) Erythrocytosis: Status: Acute Code(s): D75.1 - Secondary polycythemia Medications at Discharge Home Medications diazepam 5 mg tablet 5 mg PO BID PRN tremors 02/27/19 duloxetine 60 mg capsule,delayed release (Cymbalta) 60 mg PO DAILY depression 02/27/19 pregabalin 150 mg capsule (Lyrica) 150 mg PO BID neuropathy 02/27/19 aspirin 81 mg chewable tablet 81 mg PO DAILY heart health 03/10/19 pantoprazole 40 mg tablet,delayed release 40 mg PO DAILY acid reflux 03/10/19 insulin glargine 100 unit/mL (3 mL) subcutaneous pen 40 units subcut BID diabetes 03/20/19 clopidogrel 75 mg tablet 75 mg PO DAILY antiplatelet 08/08/19 magnesium oxide 400 mg PO BID supplement 08/08/19 multivitamin 1 tab PO DAILY supplement 08/08/19 potassium chloride 20 mEq tablet,extended release 20 meq PO DAILY supplement #90 tabs 09/11/19 cholecalciferol (vitamin D3) 50 mcg (2,000 unit) tablet 50 mcg PO DAILY supplement 09/27/19 furosemide 20 mg tablet 20 mg PO DAILY diuretic 11/20/19 atorvastatin 80 mg tablet 80 mg PO QHS cholesterol 11/26/19 insulin lispro 200 unit/mL (3 mL) subcutaneous pen (Humalog KwikPen U-200 Insulin) See Protocol subcut TIDCM diabetes 09/12/20 nitroglycerin 0.4 mg sublingual tablet 0.4 mg sublingual Q5M PRN Chest Pain 09/12/20 carvedilol 3.125 mg tablet 3.125 mg PO BID heart 11/17/22 empagliflozin 10 mg tablet (Jardiance) 10 mg PO DAILY diabetes 11/17/22 metoclopramide HCl 5 mg tablet 5 mg PO TIDAC #0 tabs 11/19/22 Hospital Course Procedures 2-D Echocardiogram and - (CT abdomen and pelvis) Summary of Care Provided Minutes Spent on Discharge: 37 Hospital Course: Mr. Munoz is a 62-year-old male who presented to the emergency department at [facility] on 11/17/2022 complaining of generalized weakness that was worsening in his lower extremities, left lower quadrant pain, nausea, and vomiting. On review of previous records it appeared that he had issues with chronic nausea and vomiting and intermittent abdominal pain. He has had several abdominal scans and a gastric emptying study which was last performed in 2017 and was negative for gastroparesis at that time. He stated on admission that over the last 3 days he had had increased nausea, vomiting, and has not been able to keep anything down but then told me he ate cream chip beef the night prior to presenting. He reported he was able to keep that down temporarily but it did eventually come back up. He had a remote history of a stroke at which time he was admitted to rehab here at the hospital for ongoing physical and Occupational Therapy and would like to be able to go back there if possible to address his weakness as he is having significant issues at home taking care of himself and with mobility. Vital signs show temperature 97.9, heart rate 97, blood pressure 147/113, respiratory rate 19 and oxygen saturations are 99% on room air. BC on presentation showed leukocytosis of 14.9 with a left shift of 79.4% neutrophilia and elevated hemoglobin at 17.5. This does appear to be hemoconcentrated. Chemistry panel showed mild hyponatremia with a sodium of 135 (this is not chronic), potassium was low at 3.4, chloride was low at 93, BUN and creatinine were 31 and 1.71 respectively which does appear close to his baseline and his glucose was 175. Liver functions were unremarkable. His lactic acid was 2.8. Amylase and lipase are both normal. His UA shows proteinuria and glucosuria but is otherwise unremarkable. CT of the abdomen pelvis shows fatty infiltration of the liver, mild diffuse bladder wall thickening and degenerative changes with prior fusion noted in the lumbar spine. He was mated to the medical floor and placed on gentle hydration as he did appear somewhat dehydrated on presentation and started on clear liquids. We also started some low-dose Reglan to see if this would help with his nausea and vomiting. Within 24 hours of admission he was able to initiate a regular diet and tolerated it well without any difficulty. He was seen by physical and Occupational Therapy given his concerns with home-going and his ongoing worsening weakness issues. They recommended placement for ongoing therapy services after discharge. He was excepted at a local skilled facility for ongoing therapy services and pre-CERT was obtained on 11/19/2022. We were able to discharge him to the skilled facility at that time. The only new medication we initiated was low-dose Reglan to be taken 3 times daily prior to meals and we have recommended he follow-up with gastroenterology as an outpatient for further workup giving this is an ongoing problem for him. His hemoglobin A1c was elevated and his control seems to be poor however his fasting sugars on his home doses were 144. I suspect his compliance is more of a problem at home and that is the cause of his elevated hemoglobin A1c. We have asked him to follow-up with his primary care physician within the next month. I have asked him to follow-up gastroenterology in the next 3 months as noted above. He is also not been evaluated by cardiology in some time and we did obtain an echocardiogram while he was here which showed depressed EF however improved from previous. I have asked him to follow-up with cardiology within the next month as well. Discharge diagnoses: Abdominal pain Nausea Vomiting Generalized weakness Debility Falls Hypokalemia-resolved Lactic acidosis-resolved Hyponatremia-resolved Erythrocytosis-resolved Leukocytosis-resolved CAD Ischemic cardiomyopathy Hypertension Hyperlipidemia CKD stage IIIb History of stroke Diabetes type 2 Diabetic neuropathy Tremors Chronic low back pain Tobacco abuse Physical Exam Narrative Patient states he is feeling well. No further nausea and vomiting. Is anxious to go to rehab. Const alert, oriented x3, no apparent distress, no limitations, healthy appearing and well nourished Constitutional Narrative: Upper middle-aged white male, obese, appears much older than stated age, sitting up in a chair at the bedside talking on the phone , appears comfortable at this time, nontoxic, appears chronically ill General Appearance: cooperative, comfortable, well kempt and well developed Orientation / Consciousness: awake, oriented to person, oriented to place and oriented to time Exam Limitations: no limitations Nutritional Appearance: obese HEENT normocephalic, head/scalp atraumatic and moist oral mucous membranes; Negative for hearing grossly normal bilaterally HEENT Narrative: Dentition is poor, Mallampati is 2, no thrush Eyes PERRL, EOMs intact bilaterally and conjunctivae normal Eyes Narrative: No scleral icterus Neck no lymphadenopathy, supple and no JVD Neck Narrative: Trachea is midline, no thyroid enlargement Resp normal respiratory effort, no retractions and no use of accessory muscles Resp Narrative: Diffusely diminished but clear Auscultation: Negative for rales, rhonchi or wheezes Cardio regular rate, regular rhythm, S1 normal heart sound, S2 normal heart sound, no murmurs, no rub, no gallops and no clicks GI normal to inspection, nondistended, normoactive bowel sounds, soft to palpation and non-tender GI Narrative: No tenderness noted in left lower quadrant today Palpation: Negative for guarding Extremity no clubbing, cyanosis or edema Extremity Narrative: Pedal pulses are 2+ Skin no rashes or lesions noted, no wounds, skin turgor normal, no jaundice, no petechiae and no mottling Skin Narrative: Multiple tattoos Neuro oriented x3, CN's II-XII intact bilaterally, moves all extremities and no focal motor deficits Neuro Narrative: generalized weakness noted but no drift with upper or lower extremity, bilateral lower extremity sensory changes related to neuropathy Speech: speech normal Psych affect normal Psych Narrative: Very pleasant, eye contact is good, interacts appropriately Weight / BMI Weight Weight: 94.4 kg Body Mass Index (BMI) 29.8 ABG / Lab / Microbiology Data 11/19/22 05:50 11/19/22 05:50 Laboratory: Laboratory Results - last 24 hr 11/18/22 16:35: POC Glucose 228 H 11/18/22 21:38: POC Glucose 278 H 11/19/22 05:43: POC Glucose 145 H 11/19/22 05:50: WBC 7.6, RBC 5.04, Hgb 14.5, Hct 43.3, MCV 85.9, MCH 28.8, MCHC 33.5, RDW Std Deviation 41.1, RDW Coeff of Jr 13.2, Plt Count 162, MPV 11.4, Immature Gran % (Auto) 1.200 H, Neut % (Auto) 71.1 H, Lymph % (Auto) 14.2 L, Campbell % (Auto) 9.3, Eos % (Auto) 3.4, Baso % (Auto) 0.8, Absolute Neuts (auto) 5.4, Absolute Lymphs (auto) 1.08, Nucleated RBC % 0, Sodium 137, Potassium 3.7, Chloride 105, Carbon Dioxide 24.0, Anion Gap 8, BUN 35 H, Creatinine 1.93 H, Estim Creat Clear Calc 39.93, Est GFR (MDRD) Af Amer 45 L, Est GFR (MDRD) Non-Af 37 L, BUN/Creatinine Ratio 18.1, Glucose 141 H, Calcium 8.7 11/19/22 09:51: POC Glucose 265 H Radiography Diagnostic Testing: Radiology Impression Echocardiogram 11/17/22 13:17 Interpretation Summary The estimated ejection fraction is 35 %. Stage 1 diastolic dysfunction. Hypokinesis of the inferior wall and septum Ordering Physician: Clara Whiteside Referring Physician: Chema Mckeon Performed By: Kristy Ramírez RDCS D/C Instructions Discharge Diet: Low fat / Low cholesterol and 1800 Calorie Control Diet Meaningful Use Info Meaningful Use Diagnoses (Choose all that apply): None applicable Discharge Plan Admission Admit Date/Time: 11/17/22 11:44 Primary Reason for Your Visit: Abdominal pain/nausea/vomiting/generalized weakness Attending Provider: Clara Whiteside Primary Care Provider: Chema Mckeon Discharge Orders/Prescriptions Prescriptions: New metoclopramide HCl 5 mg Tablet 5 mg PO TIDAC Qty: 0 0RF Continued diazepam 5 mg tablet 5 mg PO BID PRN (Reason: tremors) pregabalin [Lyrica] 150 mg capsule 150 mg PO BID duloxetine [Cymbalta] 60 mg capsule,delayed release(DR/EC) 60 mg PO DAILY potassium chloride 20 mEq tablet extended release 20 meq PO DAILY Qty: 90 3RF furosemide 20 mg tablet 20 mg PO DAILY cholecalciferol (vitamin D3) 50 mcg (2,000 unit) tablet 50 mcg PO DAILY pantoprazole 40 MG tablet 40 mg PO DAILY aspirin 81 MG tablet,chewable 81 mg PO DAILY insulin glargine 100 UNIT/ML insulin pen 40 units subcut BID atorvastatin 80 MG tablet 80 mg PO QHS nitroglycerin 0.4 mg tablet, sublingual 0.4 mg sublingual Q5M PRN (Reason: Chest Pain) Patient Comments: Place 1 tablet under tongue as needed for Chest pain. max = 3 doses. If CP persists after 1st dose, call 911 Humalog KwikPen Insulin 200 unit/mL (3 mL) insulin pen See Protocol SUBCUT TIDCM Protocol: 6. Sliding Scale Insulin Custom Condition: mg/dl range Dose/Route: Number of Units Condition: 100 Dose/Route: 12 Condition: 125 Dose/Route: 14 Condition: 150 Dose/Route: 16 Condition: 175 Dose/Route: 18 Condition: 200 Dose/Route: 20 Condition: 225 Dose/Route: 22 Condition: 250 Dose/Route: 24 Protocol Text: Custom Sliding Scale Jardiance 10 mg tablet 10 mg PO DAILY carvedilol 3.125 mg tablet 3.125 mg PO BID clopidogrel 75 mg tablet 75 mg PO DAILY magnesium oxide 400 mg magnesium capsule 400 mg PO BID multivitamin Tablet 1 tab PO DAILY Referrals / Follow Up: Chema Mckeon DO [Primary Care Provider] - Within 1 Month Sergo Smiley DO [Med Staff - Active Staff] - Within 3 Months (for intermittent Nausea and Vomiting) Yoel Mendes MD [Med Staff - Active Staff] - Within 1 Month (call for appt) Disposition Disposition (needs filled in before D/C Order can be placed): [facility] Charges/Coding Visit Charges Inpatient E&M: 65457 SNF Disch >30 Min
--- NOTE | 2022-11-19 12:15 | PCM.TXEXTCAR ---
Diet Diet Order/Speech Therapy: 11/18/22 11:22 Carb [Diet: Carbohydrate Controlled] Is pt able to select menu?: Yes Routine Orders/Code Status Routine Lab Work: CBC (1 week) and BMP (1 week) Code Status: Full Code Therapies Weight Bearing: Full weight bearing Physical Therapy: Eval and Treat Occupational Therapy: Eval and Treat Problem/Diagnosis (1) Acidosis, lactic: Status: Acute Code(s): E87.20 - Acidosis, unspecified (2) Acute hyponatremia: Status: Acute Code(s): E87.1 - Hypo-osmolality and hyponatremia (3) Abdominal pain: Status: Acute Code(s): R10.9 - Unspecified abdominal pain (4) Leukocytosis: Status: Acute Code(s): D72.829 - Elevated white blood cell count, unspecified (5) Generalized weakness: Status: Acute Code(s): R53.1 - Weakness (6) Debility: Status: Chronic Code(s): R53.81 - Other malaise (7) Hypokalemia: Status: Acute Code(s): E87.6 - Hypokalemia (8) Erythrocytosis: Status: Acute Code(s): D75.1 - Secondary polycythemia Plan Allergies/Procedures Done in Hospital Allergies etodolac Allergy (Unknown, Verified 11/17/22 07:26) Unknown nifedipine [From Adalat] Allergy (Verified 11/17/22 07:26) Unknown Procedures: 2-D Echocardiogram and - (CT Abdomen and Pelvis) Type of Care/Length of Stay Estimated LOS: Convalescent Care Less Than 30 days Type of Care Needed: Skilled Rehab Potential: Good Prognosis: Fair Additional Orders/Day of Discharge Day of Discharge: 11/19/22 Dietary and Speech Recommendations Dietitian Recommendations/Changes: Recommend advance diet as tolerated to 2000 calorie/consistent carbohydrate; cardiac/sodium-restricted with fluid restriction as needed per physician. ONS as indicated when diet advanced and PO established with meals. Diet education as needed prior to d/c. Discharge Plan Admission Admit Date/Time: 11/17/22 11:44 Primary Reason for Your Visit: Abdominal pain/nausea/vomiting/generalized weakness Attending Provider: Clara Whiteside Primary Care Provider: Chema Mckeon Discharge Orders/Prescriptions Prescriptions: New metoclopramide HCl 5 mg Tablet 5 mg PO TIDAC Qty: 0 0RF Continued diazepam 5 mg tablet 5 mg PO BID PRN (Reason: tremors) pregabalin [Lyrica] 150 mg capsule 150 mg PO BID duloxetine [Cymbalta] 60 mg capsule,delayed release(DR/EC) 60 mg PO DAILY potassium chloride 20 mEq tablet extended release 20 meq PO DAILY Qty: 90 3RF furosemide 20 mg tablet 20 mg PO DAILY cholecalciferol (vitamin D3) 50 mcg (2,000 unit) tablet 50 mcg PO DAILY pantoprazole 40 MG tablet 40 mg PO DAILY aspirin 81 MG tablet,chewable 81 mg PO DAILY insulin glargine 100 UNIT/ML insulin pen 40 units subcut BID atorvastatin 80 MG tablet 80 mg PO QHS nitroglycerin 0.4 mg tablet, sublingual 0.4 mg sublingual Q5M PRN (Reason: Chest Pain) Patient Comments: Place 1 tablet under tongue as needed for Chest pain. max = 3 doses. If CP persists after 1st dose, call 911 Humalog KwikPen Insulin 200 unit/mL (3 mL) insulin pen See Protocol SUBCUT TIDCM Protocol: 6. Sliding Scale Insulin Custom Condition: mg/dl range Dose/Route: Number of Units Condition: 100 Dose/Route: 12 Condition: 125 Dose/Route: 14 Condition: 150 Dose/Route: 16 Condition: 175 Dose/Route: 18 Condition: 200 Dose/Route: 20 Condition: 225 Dose/Route: 22 Condition: 250 Dose/Route: 24 Protocol Text: Custom Sliding Scale Jardiance 10 mg tablet 10 mg PO DAILY carvedilol 3.125 mg tablet 3.125 mg PO BID clopidogrel 75 mg tablet 75 mg PO DAILY magnesium oxide 400 mg magnesium capsule 400 mg PO BID multivitamin Tablet 1 tab PO DAILY Referrals / Follow Up: Yoel Mendes MD [Med Staff - Active Staff] - Within 1 Month (call for appt) Chema Mckeon DO [Primary Care Provider] - Within 1 Month Sergo Smiley DO [Med Staff - Active Staff] - Within 3 Months (for intermittent Nausea and Vomiting) Disposition Disposition (needs filled in before D/C Order can be placed): Assisted Facility
--- NOTE | 2022-11-19 12:40 | CASEMGMT ---
Social Work Precert has been obtained and pt can discharge to [facility] today. Physician notified and pt is ready for discharge today. [id number] exemption form completed and sent along with discharge orders to [facility] via [facility]. SW met with pt and his and updated. They are agreeable to discharge plan and would like to transport. Nursing updated and [facility] updated of transportation time. Disposition: [facility] [place], skilled level of care under convalescent stay AVANI Weber
[2022-11-19 12:45] VITALS: BP 138/81; PULSE 91; RESP 18; TEMP 36.4; O2SAT 98
--- NOTE | 2022-11-19 16:25 | CASEMGMT ---
STEPHANIE LEMON NOTE: Call received from Juju @ [facility] requesting clarification on Humalog SS. Call to Dr Whiteside and verbal order received, as Dr Whiteside has left the hospital for the day. Order for Humalog SS faxed to [facility]: Adriano Matute @ . Gordy HARPER RN CM
--- OUTSIDE RECORDS SUMMARY | 2023-05-03 09:26 | XMS RPT_ITS | CCD ---
Author Name Unknown Address [address] [place] [address] Organization [facility] Results Test Name Value Interpretation Reference Range Facil ity Summary Purpose Family History No Family History Records Found Advance Directives No Advanced Directives Records Found Additional Source Comments (unrecognized sect ion and content) No Status Records Found INFORMATION SOURCE (unrecogn ized section and content) FOR RECORDS PERTAINING TO PATIENTS WHO ARE OR HAVE BEEN ENROLLED IN A CHEMICAL DEPENDENCY/SUBSTANCEABUSE PROGRAM, SOME INFORMATION MAY BE OMITTED. This clinical summary was aggregated from multiple sources. Caution should be exercised in using it in the provision of clinical care. This summary normalizes information from multiple sources, and as a consequence, information in this document may materially change the coding, format and clinical context of patient data. In addition, data may be omitted in some cases. CLINICAL DECISIONS SHOULD BE BASED ON THE PRIMARY CLINICAL RECORDS. [employer] provides no warranty or guarantee of the accuracy or completeness of information in this document.
== END 2022-11-19 13:30 | disposition skilled nursing facility (03) | DRG 392 ==
LOC: ED 09:32 → MS3 11-18 06:37
PROVIDERS: Admitting Provider Internal Medicine; Emergency Provider Emergency Medicine; PCP Family Medicine; Visit Provider Internal Medicine
DX: R11.2 Nausea with vomiting, unspecified (principal); I13.0 Hypertensive heart and chronic kidney disease with heart failure and stage 1 through stage 4 chronic kidney disease, or unspecified chronic kidney disease; I50.22 Chronic systolic (congestive) heart failure; E11.22 Type 2 diabetes mellitus with diabetic chronic kidney disease; E11.40 Type 2 diabetes mellitus with diabetic neuropathy, unspecified; Z79.4 Long term (current) use of insulin; N18.32 Chronic kidney disease, stage 3b; E87.20 Acidosis, unspecified; E87.1 Hypo-osmolality and hyponatremia; D72.829 Elevated white blood cell count, unspecified; D75.1 Secondary polycythemia; I25.10 Atherosclerotic heart disease of native coronary artery without angina pectoris; E78.5 Hyperlipidemia, unspecified; E87.6 Hypokalemia; I25.5 Ischemic cardiomyopathy; R25.1 Tremor, unspecified; R10.9 Unspecified abdominal pain; G89.29 Other chronic pain; R53.81 Other malaise; Z79.02 Long term (current) use of antithrombotics/antiplatelets; Z95.5 Presence of coronary angioplasty implant and graft; Z79.82 Long term (current) use of aspirin; Z79.01 Long term (current) use of anticoagulants; Z86.73 Personal history of transient ischemic attack (TIA), and cerebral infarction without residual deficits; K76.0 Fatty (change of) liver, not elsewhere classified; Z79.899 Other long term (current) drug therapy; F17.290 Nicotine dependence, other tobacco product, uncomplicated
CPT/HCPCS: 36415; 74177; 80048; 80053; 81001; 82150; 82962; 83036; 83605; 83690; 83735; 84484; 85025; 85610; 93005; 93306; 94668; 96361; 96365; 96366; 96372; 96375; 96376; 97162; 97166; 97530; 97535; 99221; 99285; J7030; J7120; Q9957; Q9967; A4216; C8929; G0378; J2405

== ENCOUNTER 2022-11-30 16:25 | Emergency (ER) | payer MEDICARE, MEDICAID, SELFPAY ==
[2019-03-06 08:28] VITALS: BMI 29.0
[2022-11-30 16:27] VITALS: BP 196/104; PULSE 82; RESP 28; TEMP 36.6; O2SAT 97; BMI 29.5
[2022-11-30 16:49] LABS: Bedside Glucose 71 mg/dL (74-106)
--- NOTE | 2022-11-30 16:58 | ED.RN ---
orange juice given to pt for bs of 71
[2022-11-30 17:36] LABS: Absolute Lymphocyte Count 0.91 X10^3/uL (0.83-4.51); Absolute Neutrophil Count 6.2 X10^3/uL (2.0-7.7); Basophil# 0.05 X10^3/uL; Basophil% 0.6 % (0-1); Eosinophil# 0.22 X10^3/uL; Eosinophils% 2.7 % (0-5); Hematocrit 41.2 % (40-54); Hemoglobin 13.4 g/dL (13.0-16.5); Lymphocyte # 0.91 X10^3/ul (0.83-4.51); Mean Corp Hgb Conc 32.5 g/dL (32-36); Mean Corpuscular Hgb 28.5 pg (27.0-32.0); Mean Corpuscular Volume 87.7 fL (80-94); Mean Platelet Vol. 11.5 fl (6.2-12.0); Monocyte% 9.7 % (0-10); NRBC Flagged by Analyzer 0 % (0-5); Neutrophil # 6.19 X10^3/uL (2.7-7.7); Neutrophil % 74.8 % (47-70); Platelet Count 125 K/mm3 (150-450); RBC Distribution Width CV 13.6 % (11.6-14.6); RBC Distribution Width SD 43.4 fl (35.1-43.9); White Blood Count 8.3 K/mm3 (4.4-11.0)
[2022-11-30] MEDS: Ondansetron 4 MG/2 ML Vial IV (17:49)
--- NOTE | 2022-11-30 17:57 | EDS_ITS ---
HPI History of Present Illness Chief Complaint: General Illness Narrative Narrative: 62-year-old male presenting with nausea. He states he was recently admitted to [facility] and sent to the [facility]dc facility. He was discharged and went to get his eyes examined today. After they were dilated he noticed he was nauseous. His blood sugar was checked and he was 61. He drank some OJ. He now feels a little bit better but has some nausea. He is otherwise been feeling okay. He did not finish his eye exam because he states that the eye doctor was worried about him. Patient has no specific complaints other than nausea currently. [facility] Medical History Abdominal pain FLORY (acute kidney injury) Anxiety Arteriosclerosis of coronary artery in patient with history of myocardial infarction Back pain Bradycardia Cardiomyopathy CKD (chronic kidney disease) stage 3, GFR 30-59 ml/min CVA (cerebral vascular accident) Depression Depression Diabetes Essential hypertension GERD (gastroesophageal reflux disease) Hematochezia Hyperlipidemia Intractable nausea and vomiting Ischemic cardiomyopathy Nausea Noncompliance with diabetes treatment Nonketotic hyperglycinemia Obesity Peripheral nerve injury Polyp of colon Recurrent left knee instability Renal insufficiency Secondary hypertension Smoker STEMI (ST elevation myocardial infarction) (03/05/19) Syncope Syncope and collapse Systolic CHF Tremor Type 2 diabetes mellitus Home Medications diazepam 5 mg tablet 5 mg PO BID PRN tremors 02/27/19 [History Last Taken 11/16/22] duloxetine 60 mg capsule,delayed release (Cymbalta) 60 mg PO DAILY depression 02/27/19 [History Last Taken 11/16/22] pregabalin 150 mg capsule (Lyrica) 150 mg PO BID neuropathy 02/27/19 [History Last Taken 11/16/22] aspirin 81 mg chewable tablet 81 mg PO DAILY heart health 03/10/19 [History Last Taken 11/16/22] pantoprazole 40 mg tablet,delayed release 40 mg PO DAILY acid reflux 03/10/19 [History Last Taken 11/16/22] insulin glargine 100 unit/mL (3 mL) subcutaneous pen 40 units subcut BID diabetes 03/20/19 [History Last Taken 11/16/22] clopidogrel 75 mg tablet 75 mg PO DAILY antiplatelet 08/08/19 [History Last Taken 11/16/22] magnesium oxide 400 mg PO BID supplement 08/08/19 [History Last Taken 11/16/22] multivitamin 1 tab PO DAILY supplement 08/08/19 [History Last Taken 11/16/22] potassium chloride 20 mEq tablet,extended release 20 meq PO DAILY supplement #90 tabs 09/11/19 [Rx Last Taken 11/16/22] cholecalciferol (vitamin D3) 50 mcg (2,000 unit) tablet 50 mcg PO DAILY supplement 09/27/19 [History Last Taken 11/16/22] furosemide 20 mg tablet 20 mg PO DAILY diuretic 11/20/19 [History Last Taken 11/16/22] atorvastatin 80 mg tablet 80 mg PO QHS cholesterol 11/26/19 [History Last Taken 11/16/22] insulin lispro 200 unit/mL (3 mL) subcutaneous pen (Humalog KwikPen U-200 Insulin) See Protocol subcut TIDCM diabetes 09/12/20 [History Last Taken 11/01] nitroglycerin 0.4 mg sublingual tablet 0.4 mg sublingual Q5M PRN Chest Pain 09/12/20 [History Last Taken Unknown] carvedilol 3.125 mg tablet 3.125 mg PO BID heart 11/17/22 [History Last Taken ] empagliflozin 10 mg tablet (Jardiance) 10 mg PO DAILY diabetes 11/17/22 [History Last Taken 11/16/22] metoclopramide HCl 5 mg tablet 5 mg PO TIDAC #0 tabs 11/19/22 [Rx Last Taken Unknown] Allergy/AdvReac Type Severity Reaction Status Date / Time etodolac Allergy Unknown Unknown Verified 11/30/22 16:26 nifedipine [From Adalat] Allergy Unknown Verified 11/30/22 16:26 Family History Father Heart disease Son Kidney disease Surgical History History of back surgery History of coronary artery stent placement History of lumbar fusion History of umbilical hernia repair Hx of CABG S/P coronary artery bypass graft x 4 (~08/03/19) Stented coronary artery (03/06/19) Social History household members: spouse Smoking Status: Current some day smoker tobacco type: pipe alcohol intake: never substance use type: does not use caffeine: No ROS ROS ED Constitutional Constitutional ED: Denies chills, fever(s) or sweats Eyes Eyes: Denies blurry vision or change in vision ENT ENT ED: Denies ear pain or sore throat Cardiovascular Cardiovascular: Denies chest pain, palpitations or racing heartbeat Respiratory/Chest Respiratory/Chest: Denies cough, dyspnea or sputum Gastrointestinal Gastrointestinal: Reports nausea; Denies abdominal pain, constipation, diarrhea or vomiting Genitourinary Genitourinary ED: Denies dysuria, hematuria or urinary frequency Musculoskeletal Musculoskeletal: Denies arthralgias, myalgias or neck pain Integumentary Denies abscess, Abrasions or rash Neurologic Neurologic: Denies headache(s), paresthesias or weakness Psychiatric Psychiatric: Denies anxiety, depression, suicidal ideation or suicidal thoughts Endocrine Endocrinology: Denies polydipsia or polyuria EXAM Physical Exam Const Vital Signs: 11/30/22 16:27 11/30/22 16:30 11/30/22 19:31 Temperature 98 F Temperature Source Oral Pulse Rate 82 73 Respiratory Rate 28 H 14 Respiratory Effort Normal Non-Labored Respiratory Pattern Normal Blood Pressure 196/104 H 181/76 H Blood Pressure Mean 134 Pulse Ox 97 96 Oxygen Delivery Method Room Air Positive well nourished General Appearance ED: NAD; Negative for pallor HEENT Reports moist mucous membranes Eyes PERRL and EOMs intact bilaterally Chest Wall inspection of chest normal Resp normal respiratory effort and clear to auscultation bilaterally Auscultation: wheezes; Negative for rales or rhonchi Cardio regular rate and regular rhythm GI normal to inspection, nondistended, normoactive bowel sounds Neuro oriented x3 and CN's II-XII intact bilaterally Sensorium / Orientation: alert Psych mental status grossly normal Skin no rashes or lesions noted and no wounds General Skin Exam: Negative for jaundice or pallor MDM MDM MDM Narrative Medical decision making narrative: His eye doctor where he was having a routine eye exam. Blood sugar was 61 there. Patient states he drank orange juice. Differential includes hypoglycemia, dehydration, electrode abnormalities. Patient given Zofran 4 mg IV. We will obtain a CBC and BMP to assess for hemoglobin, hematocrit, platelets, renal function, electrolytes. CBC shows no significant leukocytosis. Hemoglobin monitor stable. Platelets are low at 125 and the patient has had had some past. Creatinine is improving at 1.54. Electrolytes unremarkable with exception of potassium 3.4. Patient given Zofran and a meal. At this point I think he will be able to be discharged home so he tolerates it. Patient tolerated a meal. He was able drink fluids. Blood sugar 112 and is feeling much better. Patient's will come pick him up. Patient stable for discharge at this time. Impression: 1. Nausea 2. Hypoglycemia Lab Data Labs: Laboratory Results - last 24 hr 11/30/22 11/30/22 11/30/22 16:32 17:20 17:56 WBC 8.3 RBC 4.70 Hgb 13.4 Hct 41.2 MCV 87.7 MCH 28.5 MCHC 32.5 RDW Std Deviation 43.4 RDW Coeff of Jr 13.6 Plt Count 125 L MPV 11.5 Immature Gran % (Auto) 1.200 H Neut % (Auto) 74.8 H Lymph % (Auto) 11.0 L [place] % (Auto) 9.7 Eos % (Auto) 2.7 Baso % (Auto) 0.6 Absolute Neuts (auto) 6.2 Absolute Lymphs (auto) 0.91 Nucleated RBC % 0 Sodium 141 Potassium 3.4 L Chloride 106 Carbon Dioxide 31.0 Anion Gap 4 L BUN 41 H Creatinine 1.54 H Estim Creat Clear Calc 50.04 Est GFR (MDRD) Af Amer 59 L Est GFR (MDRD) Non-Af 49 L BUN/Creatinine Ratio 26.6 H Glucose 76 Calcium 9.3 POC Glucose 71 L 112 H Discharge Plan Triage Chief Complaint: General Illness Other Complaint: Hypoglycemia ED Provider: Abhinav Casey Dx/Rx/DC Orders Instructions: Hypoglycemia (Low Blood Sugar) Prescriptions: No Action diazepam 5 mg tablet 5 mg PO BID PRN (Reason: tremors) pregabalin [Lyrica] 150 mg capsule 150 mg PO BID duloxetine [Cymbalta] 60 mg capsule,delayed release(DR/EC) 60 mg PO DAILY potassium chloride 20 mEq tablet extended release 20 meq PO DAILY Qty: 90 3RF furosemide 20 mg tablet 20 mg PO DAILY cholecalciferol (vitamin D3) 50 mcg (2,000 unit) tablet 50 mcg PO DAILY pantoprazole 40 MG tablet 40 mg PO DAILY aspirin 81 MG tablet,chewable 81 mg PO DAILY insulin glargine 100 UNIT/ML insulin pen 40 units subcut BID atorvastatin 80 MG tablet 80 mg PO QHS nitroglycerin 0.4 mg tablet, sublingual 0.4 mg sublingual Q5M PRN (Reason: Chest Pain) Patient Comments: Place 1 tablet under tongue as needed for Chest pain. max = 3 doses. If CP persists after 1st dose, call 911 Humalog KwikPen Insulin 200 unit/mL (3 mL) insulin pen See Protocol SUBCUT TIDCM Protocol: 6. Sliding Scale Insulin Custom Condition: mg/dl range Dose/Route: Number of Units Condition: 100-124 Dose/Route: 12 Condition: 125-149 Dose/Route: 14 Condition: 150-174 Dose/Route: 16 Condition: 175-199 Dose/Route: 18 Condition: 200-224 Dose/Route: 20 Condition: 225-249 Dose/Route: 22 Condition: 250-299 Dose/Route: 24 Protocol Text: Custom Sliding Scale call >299 Jardiance 10 mg tablet 10 mg PO DAILY carvedilol 3.125 mg tablet 3.125 mg PO BID metoclopramide HCl 5 mg Tablet 5 mg PO TIDAC Qty: 0 0RF clopidogrel 75 mg tablet 75 mg PO DAILY magnesium oxide 400 mg magnesium capsule 400 mg PO BID multivitamin Tablet 1 tab PO DAILY Primary Care Provider: Chema Mckeon Referrals: Chema Mckeon DO [Primary Care Provider] - Disposition Disposition: Home, Self Care
[2022-11-30 17:58] LABS: Anion Gap 4 (5-15); BUN 41 mg/dL (7-18); BUN/Creat Ratio 26.6 RATIO (10-20); Calcium,Total 9.3 mg/dL (8.5-10.1); Chloride 106 mmol/L (98-107); Creatinine, Serum 1.54 mg/dL (0.70-1.30); EST Glomerular Filtration Rate 49 mL/min (>60); Est Glom Filt Rate - Afr Amer 59 mL/min (>60); Estimated Creatinine Clearance 50.04 ml/min; Glucose 76 mg/dL (74-106); Potassium 3.4 mmol/L (3.5-5.1); Sodium Level 141 mmol/L (136-145)
[2022-11-30 18:13] LABS: Bedside Glucose 112 mg/dL (74-106)
[2022-11-30 19:31] VITALS: BP 181/76; PULSE 73; RESP 14; O2SAT 96
== END 2022-11-30 20:39 | disposition home or self-care (01) ==
PROVIDERS: Emergency Provider Student in an Organized Health Care Education/Training Program; PCP Family Medicine; Visit Provider Student in an Organized Health Care Education/Training Program
DX: E11.649 Type 2 diabetes mellitus with hypoglycemia without coma (principal); I50.22 Chronic systolic (congestive) heart failure; I13.0 Hypertensive heart and chronic kidney disease with heart failure and stage 1 through stage 4 chronic kidney disease, or unspecified chronic kidney disease; E11.22 Type 2 diabetes mellitus with diabetic chronic kidney disease; Z79.4 Long term (current) use of insulin; N18.30 Chronic kidney disease, stage 3 unspecified; I25.10 Atherosclerotic heart disease of native coronary artery without angina pectoris; E78.5 Hyperlipidemia, unspecified; Z86.73 Personal history of transient ischemic attack (TIA), and cerebral infarction without residual deficits; I25.2 Old myocardial infarction; R25.1 Tremor, unspecified; F32.A Depression, unspecified; Z79.899 Other long term (current) drug therapy; Z79.82 Long term (current) use of aspirin; K21.9 Gastro-esophageal reflux disease without esophagitis; Z79.02 Long term (current) use of antithrombotics/antiplatelets; Z95.5 Presence of coronary angioplasty implant and graft; Z95.1 Presence of aortocoronary bypass graft; F17.290 Nicotine dependence, other tobacco product, uncomplicated; R11.0 Nausea
CPT/HCPCS: 80048; 82962; 85025; 96374; 99285; J2405

== ENCOUNTER 2023-02-25 14:48 | Emergency (ER) | payer MEDICARE, MEDICAID, SELFPAY ==
[2019-03-06 08:28] VITALS: BMI 29.0
[2023-02-25 14:58] VITALS: BP 112/79; PULSE 89; RESP 18; TEMP 36.3; O2SAT 100; BMI 30.9
--- NOTE | 2023-02-25 16:18 | ED.RN ---
PATIENT UPSET HE HAS BEEN WAITING AN HOUR AND A HALF FOR A ROOM. RN NOTIFIED PATIENT WE DO NOT HAVE ANY ROOMS AVAILABLE AT THIS TIME. PT STATES I THOUGHT THIS WAS A HOSPITAL THAT TAKES CARE OF PEOPLE. RN INFORMED PT SHE CANNOT PUT A PATIENT IN A ROOM WE DON'T HAVE. PT DOES NOT RESPOND AND CONTINUES TO GO BACK INTO WAITING ROOM.
--- NOTE | 2023-02-25 17:11 | ED.RN ---
PT STATED HE HAS BEEN HERE FOR 3 PLUS HOURS AND HE IS GOING HOME. EXPLAINED HE WOULD GO BACK SOON WE COULD GET HIM BACK BUT THAT IT GOES BY [facility] AND THERE ARE MANY PEOPLE WAITING TO COME
== END 2023-02-25 17:09 | disposition left against medical advice (07) ==
LOC: ED 17:16
PROVIDERS: Emergency Provider Emergency Medicine; PCP Family Medicine; Visit Provider Emergency Medicine
DX: R53.1 Weakness (principal)

== ENCOUNTER → 2023-03-02 | Outpatient (CLI) | payer MEDICARE, SELFPAY ==
[2019-03-06 08:28] VITALS: BMI 29.0
[2023-03-02 17:51] LABS: Absolute Lymphocyte Count 1.66 X10^3/uL (0.83-4.51); Basophil# 0.08 X10^3/uL; Basophil% 0.7 % (0-1); Eosinophil# 0.35 X10^3/uL; Eosinophils% 3.2 % (0-5); Hematocrit 46.8 % (40-54); Hemoglobin 14.9 g/dL (13.0-16.5); Lymphocyte # 1.66 X10^3/ul (0.83-4.51); Lymphocyte % 14.9 % (19-41); Mean Corp Hgb Conc 31.8 g/dL (32-36); Mean Corpuscular Hgb 27.5 pg (27.0-32.0); Mean Corpuscular Volume 86.5 fL (80-94); Monocyte# 0.94 X10^3/uL; Monocyte% 8.5 % (0-10); NRBC Flagged by Analyzer 0 % (0-5); Neutrophil # 7.97 X10^3/uL (2.7-7.7); Neutrophil % 71.7 % (47-70); Platelet Count 219 K/mm3 (150-450); RBC Distribution Width CV 14.3 % (11.6-14.6); RBC Distribution Width SD 45.5 fl (35.1-43.9); Red Blood Count 5.41 M/mm3 (4.6-6.2); White Blood Count 11.1 K/mm3 (4.4-11.0)
[2023-03-02 18:05] LABS: Color, Urine Yellow (Yellow); Glucose, Dipstick 1000 mg/dl (Normal); Ketone-Dipstick Negative (Negative); Leukocyte Esterase-Dipstick Negative /ul (Negative); Nitrite-Dipstick Negative (Negative); Occult Blood-Urine 10 /ul (Negative); Protein-Dipstick 100 mg/dl (Negative); Specific Gravity, Urine 1.015 (1.002-1.030); Urine Bilirubin Dipstick Negative (Negative); Urine Clarity Clear (Clear); Urine Urobilinogen Normal (Normal)
[2023-03-02 18:27] LABS: ALB/GLOB Ratio 0.9 RATIO (0.9-2.4); AST(SGOT) 10 U/L (15-37); Alanine Aminotransfer ALT/SGPT 28 U/L (16-61); Albumin, Serum 3.3 g/dL (3.2-5.0); Alkaline Phosphatase 118 U/L (45-117); Anion Gap 9 (5-15); BUN 37 mg/dL (7-18); Calcium,Total 9.2 mg/dL (8.5-10.1); Chloride 100 mmol/L (98-107); Creatinine, Serum 1.68 mg/dL (0.70-1.30); EST Glomerular Filtration Rate 44 mL/min (>60); Est Glom Filt Rate - Afr Amer 53 mL/min (>60); Globulin 3.8 g/dL (2.2-4.2); Glucose 105 mg/dL (74-106); Potassium 3.9 mmol/L (3.5-5.1); Protein, Total 7.1 g/dL (6.4-8.2); Sodium Level 141 mmol/L (136-145); Thyroid Stim Hormone (TSH) 0.82 uIU/mL (0.358-3.74)
== END | disposition home or self-care (01) ==
PROVIDERS: PCP Family Medicine; Visit Provider Family Medicine
DX: R53.83 Other fatigue (principal); R53.1 Weakness; R35.0 Frequency of micturition
CPT/HCPCS: 36415; 80053; 81002; 84443; 85025

== ENCOUNTER 2023-05-07 20:30 | Emergency (ER) | payer MEDICARE, SELFPAY ==
[2019-03-06 08:28] VITALS: BMI 29.0
[2023-05-07 20:32] VITALS: BP 162/101; PULSE 74; RESP 20; TEMP 37.1; O2SAT 100; BMI 32.1
--- NOTE | 2023-05-07 20:34 | EX.ED.DYSGE1 ---
HPI History of Present Illness Chief Complaint: Dizziness [facility] Medical History Abdominal pain FLORY (acute kidney injury) Anxiety Arteriosclerosis of coronary artery in patient with history of myocardial infarction Back pain Bradycardia Cardiomyopathy CKD (chronic kidney disease) stage 3, GFR 30-59 ml/min CVA (cerebral vascular accident) Depression Depression Diabetes Essential hypertension GERD (gastroesophageal reflux disease) Hematochezia Hyperlipidemia Intractable nausea and vomiting Ischemic cardiomyopathy Nausea Noncompliance with diabetes treatment Nonketotic hyperglycinemia Obesity Peripheral nerve injury Polyp of colon Recurrent left knee instability Renal insufficiency Secondary hypertension Smoker STEMI (ST elevation myocardial infarction) (03/05/19) Syncope Syncope and collapse Systolic CHF Tremor Type 2 diabetes mellitus Home Medications diazepam 5 mg tablet 5 mg PO BID PRN tremors 02/27/19 [History Last Taken 11/16/22] duloxetine 60 mg capsule,delayed release (Cymbalta) 60 mg PO DAILY depression 02/27/19 [History Last Taken 11/16/22] pregabalin 150 mg capsule (Lyrica) 150 mg PO BID neuropathy 02/27/19 [History Last Taken 11/16/22] aspirin 81 mg chewable tablet 81 mg PO DAILY heart health 03/10/19 [History Last Taken 11/16/22] pantoprazole 40 mg tablet,delayed release 40 mg PO DAILY acid reflux 03/10/19 [History Last Taken 11/16/22] insulin glargine 100 unit/mL (3 mL) subcutaneous pen 40 units subcut BID diabetes 03/20/19 [History Last Taken 11/16/22] clopidogrel 75 mg tablet 75 mg PO DAILY antiplatelet 08/08/19 [History Last Taken 11/16/22] magnesium oxide 400 mg PO BID supplement 08/08/19 [History Last Taken 11/16/22] multivitamin 1 tab PO DAILY supplement 08/08/19 [History Last Taken 11/16/22] potassium chloride 20 mEq tablet,extended release 20 meq PO DAILY supplement #90 tabs 09/11/19 [Rx Last Taken 11/16/22] cholecalciferol (vitamin D3) 50 mcg (2,000 unit) tablet 50 mcg PO DAILY supplement 09/27/19 [History Last Taken 11/16/22] furosemide 20 mg tablet 20 mg PO DAILY diuretic 11/20/19 [History Last Taken 11/16/22] atorvastatin 80 mg tablet 80 mg PO QHS cholesterol 11/26/19 [History Last Taken 11/16/22] insulin lispro 200 unit/mL (3 mL) subcutaneous pen (Humalog KwikPen U-200 Insulin) See Protocol subcut TIDCM diabetes 09/12/20 [History Last Taken 11/16/22] nitroglycerin 0.4 mg sublingual tablet 0.4 mg sublingual Q5M PRN Chest Pain 09/12/20 [History Last Taken Unknown] carvedilol 3.125 mg tablet 3.125 mg PO BID heart 11/17/22 [History Last Taken 11/16/22] empagliflozin 10 mg tablet (Jardiance) 10 mg PO DAILY diabetes 11/17/22 [History Last Taken 11/16/22] metoclopramide HCl 5 mg tablet 5 mg PO TIDAC #0 tabs 11/19/22 [Rx Last Taken Unknown] Allergy/AdvReac Type Severity Reaction Status Date / Time etodolac Allergy Unknown Unknown Verified 05/07/23 20:30 nifedipine [From Adalat] Allergy Unknown Verified 05/07/23 20:30 Family History Father Heart disease Son Kidney disease Surgical History History of back surgery History of coronary artery stent placement History of lumbar fusion History of umbilical hernia repair Hx of CABG S/P coronary artery bypass graft x 4 (~08/03/19) Stented coronary artery (03/06/19) Social History household members: spouse Smoking Status: Current some day smoker tobacco type: pipe and cigars alcohol intake: never substance use type: does not use caffeine: No EXAM Physical Exam Const Vital Signs: 05/07/23 20:30 05/07/23 20:32 Temperature 98.7 F Temperature Source Oral Pulse Rate 74 Respiratory Rate 20 H Respiratory Effort Normal Respiratory Pattern Normal Blood Pressure 162/101 H Blood Pressure Mean 121 Pulse Ox 100 MDM MDM MDM Narrative Medical decision making narrative: HISTORY OF PRESENT ILLNESS: 62-year-old male presents with nausea, abdominal pain and dizziness. States began approximate 10 hours ago. Notes nausea and diffuse abdominal pain. Notes dizziness mostly when his eyes are open. States he feels like the room is spinning. 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 REVIEW OF SYSTEMS: Pertinent positives: Dizziness, nausea, abdominal pain Pertinent negatives: Chest pain, shortness of breath, new focal weakness, bleeding diathesis, urinary complaints (dysuria, hematuria, frequency urgency) PHYSICAL EXAM: Nursing triage notes reviewed, Vital signs reviewed Constitutional: please see mdm HENT: MMM Eyes: Pupils equal round and reactive to light, Extraocular muscles intact Neck: No stridor, no JVD, full neck ROM Lungs: Clear to auscultation, No wheezing or rales. No increased work of breathing, no conversational dyspnea, no accessory muscle use, no nasal flaring. No respiratory distress noted Heart: Regular rate and rhythm, No murmurs, No rubs and No gallops, 2+ distal pulses (radial, femoral, posterior tibial) in all extremities Abdomen: Soft, there is no tenderness, rigidity, rebound or guarding, no obvious peritoneal signs, no palpable pulsatile abdominal masses, no auscultated abdominal bruit : No CVAT Extremities: No edema Neuro: Alert, oriented x 3, 5/5 strength in the upper extremities, 3/5 strength in lower extremities (baseline per patient), intact sensation bilateral upper extremities, chronic decree sensation bilateral lower extremities, no obvious cranial nerve deficits, no extremity or truncal ataxia, negative HINTS exam Skin: No rash or lesions noted MEDICAL DECISION MAKING: Chief Complaint: Dizziness External records reviewed: Echocardiogram from 2022 shows ejection fraction 35% Factors affecting care: CVA, type 1 diabetes, CAD status post CABG in 2019, hypertension, ischemic cardiomyopathy, Social determinants of health: none History obtained from others: none Consults: none [facility] Narrative: Patient was hemodynamically stable, afebrile, nontoxic-appearing. I considered the following differential diagnosis: Intracranial bleed, mass, arrhythmia, electrolyte disturbance, anemia, intra-abdominal pathology I obtained a broad lab and imaging workup to further elucidate the etiology of the patient's complaints. ALL IMAGES (IF OBTAINED) HAVE BEEN PERSONALLY REVIEWED AND INTERPRETED BY MYSELF. EKG with normal sinus rhythm, normal axis, normal intervals, no obvious STEMI or other ischemic changes CBC with leukocytosis suggestive of systemic summation however there is no anemia or thrombocytopenia BMP with mild hyponatremia, baseline CKD, no FLORY or anion gap to suggest endorgan hypoperfusion LFTs show no evidence of hepatobiliary pathology. High-sensitivity troponin is negative, no evidence of myocardial ischemia Lipase is wnl indicating no pancreatic inflammation. CT scan of the head shows no evidence of intracranial abnormality, mass or bleed CT scan abdomen pelvis shows no evidence of acute surgical intra-abdominal pathology I have personally reviewed the patient's chest x-ray. Chest x-ray is unremarkable for pulmonary edema, pneumothorax, pneumonia or focal cardiopulmonary abnormality. The synthesis of the patient history, physical exam, labs images suggest no acute life-limiting etiology. Patient is wheelchair-bound and does not ambulate and felt asymptomatic upon discharge. He is approved for home-going as well as close PCP follow-up. The patient and/or family, caregivers express understanding. The patient and/or family, caregivers agrees with the plan. Shared decision making: I will have a discussion with the patient and or visitors regarding risk/benefits of further testing or admission. They will be made aware of of the risk/benefits inherent in this decision they will be given the opportunity to voice understanding. Total critical care time today provided was at least 0 minutes. This excludes separately billable procedures. Critical care time (if documented) is secondary to the patient having high probability of clinically significant/life threatening deterioration in the patient's condition which required my urgent intervention. Impression: 1. Dizziness 2. Abdominal pain 3. Nausea Dispo: Discharge home This note was generated with [employer] dictation software. It may contain incorrect words, spelling, and punctuation that were not noted in review of the chart prior to signing. Lab Data Labs: Laboratory Results - last 24 hr 05/07/23 20:39 WBC 11.3 H RBC 5.46 Hgb 15.1 Hct 45.9 MCV 84.1 MCH 27.7 MCHC 32.9 RDW Std Deviation 43.3 RDW Coeff of Jr 14.3 Plt Count 199 MPV 11.6 Immature Gran % (Auto) 1.000 H Neut % (Auto) 76.4 H Lymph % (Auto) 11.6 L [place] % (Auto) 7.6 Eos % (Auto) 2.8 Baso % (Auto) 0.6 Absolute Neuts (auto) 8.6 H Absolute Lymphs (auto) 1.31 Nucleated RBC % 0 Sodium 135 L Potassium 3.8 Chloride 102 Carbon Dioxide 29.0 Anion Gap 4 L BUN 38 H Creatinine 1.66 H Estim Creat Clear Calc 53.72 Est GFR (MDRD) Af Amer 54 L Est GFR (MDRD) Non-Af 45 L BUN/Creatinine Ratio 22.9 H Glucose 155 H Calcium 9.8 Total Bilirubin 0.80 Direct Bilirubin 0.20 AST 12 L ALT 20 Alkaline Phosphatase 117 Troponin I High Sens 32 Total Protein 7.2 Albumin 3.3 Globulin 3.9 Lipase 24 Radiography Diagnostic Testing: Clinical Impression(s) from Imaging Studies Abdomen/Pelvis CT 05/07/23 20:51 IMPRESSION: Constipation with possible mild distal impaction. No acute appendicitis or bowel obstruction. Unremarkable abdominal viscera. Electronically Signed: Soraya Cook MD at 21:49 EST Reading Location ID and State: [facility] [employer] , Service support , Brain CT 05/07/23 20:51 IMPRESSION: Chronic changes as described with no acute intracranial hemorrhage or space-occupying lesion. Electronically Signed: Soraya Cook MD at 21:36 EST Reading Location ID and State: [facility] , Service support , Chest X-Ray 05/07/23 21:10 IMPRESSION: Mild left basilar atelectasis. Otherwise no acute cardiopulmonary disease. Electronically Signed: Soraya Cook MD at 21:21 EST Reading Location ID and State: [id number] / [employer] , Service support , Discharge Plan Triage Chief Complaint: Dizziness ED Provider: Puneet Rosa Dx/Rx/DC Orders Prescriptions: No Action diazepam 5 mg tablet 5 mg PO BID PRN (Reason: tremors) pregabalin [Lyrica] 150 mg capsule 150 mg PO BID duloxetine [Cymbalta] 60 mg capsule,delayed release(DR/EC) 60 mg PO DAILY potassium chloride 20 mEq tablet extended release 20 meq PO DAILY Qty: 90 3RF furosemide 20 mg tablet 20 mg PO DAILY cholecalciferol (vitamin D3) 50 mcg (2,000 unit) tablet 50 mcg PO DAILY pantoprazole 40 MG tablet 40 mg PO DAILY aspirin 81 MG tablet,chewable 81 mg PO DAILY insulin glargine 100 UNIT/ML insulin pen 40 units subcut BID atorvastatin 80 MG tablet 80 mg PO QHS nitroglycerin 0.4 mg tablet, sublingual 0.4 mg sublingual Q5M PRN (Reason: Chest Pain) Patient Comments: Place 1 tablet under tongue as needed for Chest pain. max = 3 doses. If CP persists after 1st dose, call 911 Humalog KwikPen Insulin 200 unit/mL (3 mL) insulin pen See Protocol SUBCUT TIDCM Protocol: 6. Sliding Scale Insulin Custom Condition: mg/dl range Dose/Route: Number of Units Condition: 100-124 Dose/Route: 12 Condition: 125-149 Dose/Route: 14 Condition: 150-174 Dose/Route: 16 Condition: 175-199 Dose/Route: 18 Condition: 200-224 Dose/Route: 20 Condition: 225-249 Dose/Route: 22 Condition: 250-299 Dose/Route: 24 Protocol Text: Custom Sliding Scale call >299 Jardiance 10 mg tablet 10 mg PO DAILY carvedilol 3.125 mg tablet 3.125 mg PO BID metoclopramide HCl 5 mg Tablet 5 mg PO TIDAC Qty: 0 0RF clopidogrel 75 mg tablet 75 mg PO DAILY magnesium oxide 400 mg magnesium capsule 400 mg PO BID multivitamin Tablet 1 tab PO DAILY Primary Care Provider: Chema Mckeon Referrals: Chema Mckeon DO [Primary Care Provider] -
--- NOTE | 2023-05-07 20:51 | CT_ITS ---
STUDY: CT BRAIN WITHOUT CONTRAST REASON FOR EXAM: Male, 62 years old. dizziness RADIATION DOSAGE (If Supplied By Facility): CTDIvol = ( 44.99 ) mGy, DLP = ( 2148.57 ) mGycm TECHNIQUE: Transaxial CT imaging of the brain was performed without administration of intravenous contrast material. Individualized dose optimization techniques were used for this CT. COMPARISON: CT brain report shama dated 01/11/2019. Images are unavailable. FINDINGS: Normal soft tissue structures. Normal calvarium. There is mild cerebral atrophy with widening of the extra-axial spaces and ventricular dilatation. There are areas of decreased attenuation within the white matter tracts of the supratentorial brain, consistent with microvascular disease changes. Focus of encephalomalacia within the right frontoparietal lobe near the vertex/parafalcine region, likely sequela of old infarct. Normal basal ganglia and thalami. Normal brainstem. Normal cerebellum. There is no intracranial hemorrhage. There are no findings of an acute ischemic infarction. Normal visualized paranasal sinuses. CT/Brain/Head without Contrast IMPRESSION: Chronic changes as described with no acute intracranial hemorrhage or space-occupying lesion. Electronically Signed: Soraya Cook MD at 21:36 EST ,
--- NOTE | 2023-05-07 20:51 | CT_ITS ---
STUDY: CT ABDOMEN AND PELVIS WITHOUT CONTRAST REASON FOR EXAM: Male, 62 years old. diffuse abdominal pain RADIATION DOSAGE (If Supplied By Facility): CTDIvol = ( 24.12 ) mGy, DLP = ( 2148.57 ) mGycm TECHNIQUE: Transaxial images were obtained from the dome of the diaphragm to the symphysis pubis without oral contrast, and without intravenous contrast. Sagittal and coronal images were reconstructed. Individualized dose optimization techniques were used for this CT. COMPARISON: 11/17/2022. FINDINGS: Mild left lower lobe atelectasis, otherwise lung bases are clear. Normal cardiac size with coronary artery calcifications and midline sternotomy wires. Normal liver. Normal gallbladder and extrahepatic biliary system. Normal spleen. Normal pancreas. Normal bilateral adrenal glands. Mild bilateral perinephric stranding, otherwise normal right kidney. Tiny stones measuring 2 mm within the upper pole of the left kidney versus vascular calcifications. Otherwise normal left kidney. The stomach is decompressed and difficult to assess, otherwise unremarkable. Normal small intestine. Moderate to abundant fecal debris within the colon, more severe distally consistent with distal constipation and possible mild impaction. The appendix is visualized and appears normal. There is diffuse atherosclerotic calcification of the abdominal aorta, without a demonstrated aneurysm. Normal inferior vena cava. Normal retroperitoneum. Normal urinary bladder. Small left-sided fat-containing inguinal hernia. Status post posterior fusion from L4 to S1 with mild spondylosis/degenerative disease. Mild wedging of T11 and T12, unchanged. CT/Abdomen/Pelvis without Cont IMPRESSION: Constipation with possible mild distal impaction. No acute appendicitis or bowel obstruction. Unremarkable abdominal viscera. Electronically Signed: Soraya Cook MD at 21:49 EST ,
--- OUTSIDE RECORDS SUMMARY | 2023-05-07 20:57 | XMS RPT_ITS | CCD ---
Author Name Unknown Address [address] [place] [address] Organization [facility] Results Test Name Value Interpretation [...] BE BASED ON THE PRIMARY CLINICAL RECORDS. [employer] provides no warranty or guarantee of the accuracy or completeness of information in this document.
[2023-05-07 21:04] LABS: Absolute Lymphocyte Count 1.31 X10^3/uL (0.83-4.51); Absolute Neutrophil Count 8.6 X10^3/uL (2.0-7.7); Basophil# 0.07 X10^3/uL; Basophil% 0.6 % (0-1); Eosinophil# 0.31 X10^3/uL; Eosinophils% 2.8 % (0-5); Hematocrit 45.9 % (40-54); Hemoglobin 15.1 g/dL (13.0-16.5); Lymphocyte # 1.31 X10^3/ul (0.83-4.51); Lymphocyte % 11.6 % (19-41); Mean Corp Hgb Conc 32.9 g/dL (32-36); Mean Corpuscular Hgb 27.7 pg (27.0-32.0); Mean Corpuscular Volume 84.1 fL (80-94); Mean Platelet Vol. 11.6 fl (6.2-12.0); Monocyte# 0.86 X10^3/uL; Monocyte% 7.6 % (0-10); NRBC Flagged by Analyzer 0 % (0-5); Neutrophil % 76.4 % (47-70); Platelet Count 199 K/mm3 (150-450); RBC Distribution Width CV 14.3 % (11.6-14.6); RBC Distribution Width SD 43.3 fl (35.1-43.9); Red Blood Count 5.46 M/mm3 (4.6-6.2); White Blood Count 11.3 K/mm3 (4.4-11.0)
--- NOTE | 2023-05-07 21:10 | RAD_ITS ---
STUDY: X-RAY CHEST REASON FOR EXAM: Male, 62 years old. SOB TECHNIQUE: Single AP portable view of the chest. COMPARISON: 04/04/2022. FINDINGS: Mild left basilar atelectasis. Remainder of the lungs are clear and expanded. There is no demonstrated pleural abnormality. Normal size heart. Midline sternotomy wires with suggestion of prior CABG repair. Normal mediastinum and ella. Normal visualized pulmonary arteries. There is atherosclerotic calcification of the aortic arch with tortuosity. There are diffuse degenerative changes of the visualized thoracic spine. There is degenerative osteoarthritis of the bilateral shoulders. There is no demonstrated abnormality of the visualized soft tissue structures of the upper abdomen. RAD/Chest 1 View (Portable) IMPRESSION: Mild left basilar atelectasis. Otherwise no acute cardiopulmonary disease. Electronically Signed: Soraya Cook MD at 21:21 EST ,
[2023-05-07 21:24] LABS: AST(SGOT) 12 U/L (15-37); Alanine Aminotransfer ALT/SGPT 20 U/L (16-61); Albumin, Serum 3.3 g/dL (3.2-5.0); Alkaline Phosphatase 117 U/L (45-117); Anion Gap 4 (5-15); BUN 38 mg/dL (7-18); BUN/Creat Ratio 22.9 RATIO (10-20); Calcium,Total 9.8 mg/dL (8.5-10.1); Chloride 102 mmol/L (98-107); Creatinine, Serum 1.66 mg/dL (0.70-1.30); EST Glomerular Filtration Rate 45 mL/min (>60); Est Glom Filt Rate - Afr Amer 54 mL/min (>60); Estimated Creatinine Clearance 53.72 ml/min; Globulin 3.9 g/dL (2.2-4.2); Glucose 155 mg/dL (74-106); Lipase 24 U/L (13-75); Potassium 3.8 mmol/L (3.5-5.1); Protein, Total 7.2 g/dL (6.4-8.2); Sodium Level 135 mmol/L (136-145); Troponin-I HS 32 pg/mL (3.0-78.0)
[2023-05-07] MEDS: Meclizine HCl 25 MG Tablet PO (21:33)
[2023-05-07 22:09] LABS: Bacteria 0 SEEN /hpf (None Seen); Mucous, Urine 0 SEEN /hpf (<or=2+); Squamous Epithelial Cells - UA 0 SEEN /hpf (0-5); White Blood Cells 0 SEEN /hpf (0-5)
[2023-05-07 22:16] LABS: Color, Urine Yellow (Yellow); Glucose, Dipstick 1000 mg/dl (Normal); Ketone-Dipstick Negative (Negative); Leukocyte Esterase-Dipstick Negative /ul (Negative); Nitrite-Dipstick Negative (Negative); Occult Blood-Urine 10 /ul (Negative); Protein-Dipstick 100 mg/dl (Negative); Urine Bilirubin Dipstick Negative (Negative); Urine Clarity Clear (Clear); Urine Urobilinogen Normal (Normal)
[2023-05-07 22:30] VITALS: BP 188/88; PULSE 81; RESP 18; O2SAT 94
[2023-05-07 22:32] LABS: Red Blood Cells-Urine 0-5 SEEN /hpf (0-5)
== END 2023-05-07 23:16 | disposition home or self-care (01) ==
PROVIDERS: Emergency Provider Emergency Medicine; PCP Family Medicine; Visit Provider Emergency Medicine
DX: R42 Dizziness and giddiness (principal); I13.0 Hypertensive heart and chronic kidney disease with heart failure and stage 1 through stage 4 chronic kidney disease, or unspecified chronic kidney disease; I50.20 Unspecified systolic (congestive) heart failure; E11.22 Type 2 diabetes mellitus with diabetic chronic kidney disease; E11.9 Type 2 diabetes mellitus without complications; Z79.4 Long term (current) use of insulin; N18.30 Chronic kidney disease, stage 3 unspecified; R10.9 Unspecified abdominal pain; Z99.3 Dependence on wheelchair; R11.0 Nausea; I25.10 Atherosclerotic heart disease of native coronary artery without angina pectoris; Z86.73 Personal history of transient ischemic attack (TIA), and cerebral infarction without residual deficits; E78.5 Hyperlipidemia, unspecified; I25.2 Old myocardial infarction; I5A Non-ischemic myocardial injury (non-traumatic); F32.A Depression, unspecified; F41.9 Anxiety disorder, unspecified; K21.9 Gastro-esophageal reflux disease without esophagitis; Z79.899 Other long term (current) drug therapy; Z79.02 Long term (current) use of antithrombotics/antiplatelets; Z79.85 Long-term (current) use of injectable non-insulin antidiabetic drugs; Z95.5 Presence of coronary angioplasty implant and graft; Z95.1 Presence of aortocoronary bypass graft; F17.290 Nicotine dependence, other tobacco product, uncomplicated
CPT/HCPCS: 70450; 71045; 74176; 80048; 80076; 81001; 83690; 84484; 85025; 87631; 93005; 99284; A4216

== ENCOUNTER → 2023-06-15 | Outpatient (CLI) | payer MEDICARE, SELFPAY ==
[2019-03-06 08:28] VITALS: BMI 29.0
--- NOTE | 2023-06-15 13:54 | ART_ITS ---
Reason For Study: PAD Procedure A bilateral lower extremity continuous wave Doppler with analog waveform analysis and ankle brachial indexes. Left Segmental Pressures Left brachial= 169mmHg. Left posterior tibial artery = 169mmHg. Left dorsalis pedis artery = 164mmHg. Left digit = 110 mmHg. The left dorsalis pedis waveforms are biphasic. The left posterior tibial artery waveforms are triphasic. Right Segmental Pressures Right brachial= 151mmHg. Right posterior tibial artery = 175mmHg. Right dorsalis pedis artery = 165mmHg. Right digit = 81 mmHg. The right dorsalis pedis waveforms are biphasic. The right posterior tibial artery waveforms are triphasic. Indices The right ankle brachial index by the dorsalis pedis is 0.98. The right ankle brachial index by the posterior tibial artery is 1.04. The right digital-brachial index is 0.48. The left ankle brachial index by the dorsalis pedis is 0.97. The left ankle brachial index by the posterior tibial artery is 1.00. The left digital-brachial index is 0.65. VL/Ankle Brachial Index Interpretation Summary Right SUKUMAR 1.04, normal. Doppler/PVR waveforms of the right ankle normal at rest . TBI diminished, pedal/digit disease vs spasm. Left SUKUMAR 1, normal. Doppler/PVR waveforms of the left ankle normal at rest. TBI diminished, pedal/digit disease vs spasm. Ordering Physician: Jeanine Mckeon Referring Physician: JEANINE MCKEON DO Performed By: Sumaya Turner RVEva
--- OUTSIDE RECORDS SUMMARY | 2023-06-15 19:18 | XMS RPT_ITS | CCD ---
Author Name Unknown Address [address] [place] [address] Organization [facility] Results Test Name Value Interpretation [...] BE BASED ON THE PRIMARY CLINICAL RECORDS. [employer] provides no warranty or guarantee of the accuracy or completeness of information in this document.
== END | disposition home or self-care (01) ==
PROVIDERS: PCP Family Medicine; Referring Provider Family Medicine; Visit Provider Family Medicine
DX: I73.9 Peripheral vascular disease, unspecified (principal); E11.621 Type 2 diabetes mellitus with foot ulcer
CPT/HCPCS: 93922

== ENCOUNTER 2023-09-13 18:02 | Emergency (ER) | payer MEDICARE, SELFPAY ==
[2019-03-06 08:28] VITALS: BMI 29.0
[2023-09-13 18:03] VITALS: BP 149/84; PULSE 92; RESP 16; TEMP 36.2; O2SAT 96
[2023-09-13 18:54] VITALS: BMI 31.9
[2023-09-13 19:15] LABS: Bedside Glucose 235 mg/dL (74-106)
--- NOTE | 2023-09-13 19:31 | CT_ITS ---
EXAM: CT ABDOMEN AND PELVIS WITH INTRAVENOUS CONTRAST CLINICAL INDICATION: abdominal pain TECHNIQUE: Helically acquired images were obtained of the abdomen and pelvis with intravenous contrast. This CT exam was performed using one or more of the following dose reduction techniques: automated exposure control, adjustment of the mA and/or kV according to patient size, and/or use of iterative reconstruction technique. CONTRAST: IV 100mL [id number]-300 COMPARISON: CT abdomen and pelvis, 07/26/2015. CT abdomen pelvis, 05/07/2023. FINDINGS: LOWER THORAX: Coronary artery calcifications and/or stents. Possible status post CABG. Minimal left basilar atelectasis and/or scarring. No cardiomegaly. No significant pericardial effusion. ABDOMEN: LIVER: No significant abnormality. Homogeneous. No focal mass. GALLBLADDER AND BILE DUCTS: No significant abnormality. No calcified gallstones. No gallbladder distention or wall edema. No intra- or extrahepatic biliary ductal dilation. PANCREAS: No significant abnormality. No focal cystic or solid mass. SPLEEN: No significant abnormality. Normal size without focal cystic or solid mass. ADRENALS: No significant abnormality. No nodules. KIDNEYS AND URETERS: There is a small left renal cyst for which no follow-up is indicated. This appears to have decompressed since prior examination. Normal renal size and position. No hydronephrosis. STOMACH AND BOWEL: Mild to moderate colonic stool retention. No evidence of bowel obstruction. No focal inflammatory change. PELVIS: APPENDIX: Normal appendix identified in the right lower quadrant. BLADDER: No significant abnormality. REPRODUCTIVE: Normal as visualized. No mass. ABDOMEN and PELVIS: INTRAPERITONEAL SPACE: No significant abnormality. No ascites or other fluid collection. No free air. BONES/JOINTS: Mild superior endplate compression deformities of T11 and T12 less than 25% vertebral body height loss. No retropulsion of the posterior cortex or posterior element fractures. These are unchanged compared to the prior examination. Median sternotomy. Status post L4-S1 posterior instrumented fusion with anterolisthesis of L5 upon S1 similar to the prior CT examination. No suspicious lytic or blastic abnormality. SOFT TISSUES: No significant abnormality. No discrete abdominal or pelvic wall hernia. VASCULATURE: Atherosclerosis of the aorta and its branch vessels without evidence of an aneurysm. LYMPH NODES: No significant abnormality. No enlarged lymph nodes. CT/Abdomen/Pelvis W IV Cont ONLY IMPRESSION: Mild to moderate colonic stool retention. No evidence of bowel obstruction. No additional acute findings. Electronically Signed: Paco Bustillo DO at 20:40 EDT ,
[2023-09-13 19:50] LABS: Absolute Lymphocyte Count 1.01 X10^3/uL (0.83-4.51); Absolute Neutrophil Count 12.2 X10^3/uL (2.0-7.7); Basophil# 0.11 X10^3/uL; Basophil% 0.8 % (0-1); Eosinophil# 0.13 X10^3/uL; Eosinophils% 0.9 % (0-5); Hematocrit 49.1 % (40-54); Hemoglobin 16.5 g/dL (13.0-16.5); Lymphocyte # 1.01 X10^3/ul (0.83-4.51); Mean Corp Hgb Conc 33.6 g/dL (32-36); Mean Corpuscular Hgb 28.5 pg (27.0-32.0); Mean Corpuscular Volume 84.9 fL (80-94); Mean Platelet Vol. 11.9 fl (6.2-12.0); Monocyte# 0.86 X10^3/uL; Monocyte% 5.9 % (0-10); NRBC Flagged by Analyzer 0 % (0-5); Neutrophil # 12.22 X10^3/uL (2.7-7.7); Neutrophil % 84.2 % (47-70); Platelet Count 216 K/mm3 (150-450); RBC Distribution Width CV 14.8 % (11.6-14.6); RBC Distribution Width SD 45.3 fl (35.1-43.9); Red Blood Count 5.78 M/mm3 (4.6-6.2); White Blood Count 14.5 K/mm3 (4.4-11.0)
--- NOTE | 2023-09-13 19:53 | EDS_ITS ---
HPI <LEX Flanagan - Last Filed: 09/13/23 22:11> History of Present Illness Chief Complaint: Hyperglycemia Narrative Narrative: Patient presenting today due to nausea, vomiting, and cramping upper abdominal/epigastric pain he has had over the past 2 days. He reports a history of type 2 diabetes mellitus, his glucometer this morning read high, he took 20 units of fast acting insulin and his long-acting insulin. A few hours later his glucose was still reading over 400, prompting him to come in for evaluation. He denies any fevers, chills, hematemesis, diarrhea, constipation, and urinary symptoms. Previous abdominal surgeries include umbilical hernia repair. 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 Obesity Polyp of colon Systolic CHF GERD (gastroesophageal reflux disease) Ischemic cardiomyopathy Essential hypertension Hyperlipidemia Cardiomyopathy Renal insufficiency Arteriosclerosis of coronary artery in patient with history of myocardial infarction STEMI (ST elevation myocardial infarction) (03/05/19) Type 2 diabetes mellitus Secondary hypertension CVA (cerebral vascular accident) Syncope and collapse Bradycardia Syncope Intractable nausea and vomiting Anxiety Depression Noncompliance with diabetes treatment Back pain FLORY (acute kidney injury) Nonketotic hyperglycinemia Nausea Abdominal pain Hematochezia Home Medications ?Medication ?Instructions ?Recorded ?Last Taken ?Type diazepam 5 mg tablet 5 mg PO BID PRN tremors 02/27/19 11/16/22 History duloxetine 60 mg capsule,delayed 60 mg PO DAILY depression 02/27/19 11/16/22 History release (Cymbalta) pregabalin 150 mg capsule (Lyrica) 150 mg PO BID neuropathy 02/27/19 11/16/22 History aspirin 81 mg chewable tablet 81 mg PO DAILY heart health 03/10/19 11/16/22 History pantoprazole 40 mg tablet,delayed 40 mg PO DAILY acid reflux 03/10/19 11/16/22 History release insulin glargine 100 unit/mL (3 40 units subcut BID diabetes 03/20/19 11/16/22 History mL) subcutaneous pen clopidogrel 75 mg tablet 75 mg PO DAILY antiplatelet 08/08/19 11/16/22 History magnesium oxide 400 mg PO BID supplement 08/08/19 11/16/22 History multivitamin 1 tab PO DAILY supplement 08/08/19 11/16/22 History potassium chloride 20 mEq 20 meq PO DAILY supplement #90 tabs 09/11/19 11/16/22 Rx tablet,extended release cholecalciferol (vitamin D3) 50 50 mcg PO DAILY supplement 09/27/19 11/16/22 History mcg (2,000 unit) tablet furosemide 20 mg tablet 20 mg PO DAILY diuretic 11/20/19 11/16/22 History atorvastatin 80 mg tablet 80 mg PO QHS cholesterol 11/26/19 11/16/22 History insulin lispro 200 unit/mL (3 mL) See Protocol subcut TIDCM diabetes 09/12/20 11/16/22 History subcutaneous pen (Humalog KwikPen U-200 Insulin) nitroglycerin 0.4 mg sublingual 0.4 mg sublingual Q5M PRN Chest 09/12/20 Unknown History tablet Pain carvedilol 3.125 mg tablet 3.125 mg PO BID heart 11/17/22 11/16/22 History empagliflozin 10 mg tablet 10 mg PO DAILY diabetes 11/17/22 11/16/22 History (Jardiance) metoclopramide HCl 5 mg tablet 5 mg PO TIDAC #0 tabs 11/19/22 Unknown Rx ondansetron 4 mg disintegrating 4 mg PO Q8H PRN PRN Nausea #10 tabs 05/07/23 Unknown Rx tablet ondansetron 4 mg disintegrating 4 mg PO Q8H PRN PRN Nausea #10 tabs 09/13/23 Unknown Rx tablet Allergy/AdvReac Type Severity Reaction Status Date / Time etodolac Allergy Unknown Unknown Verified 09/13/23 18:05 nifedipine (From Adalat) Allergy Unknown Verified 09/13/23 18:05 Family History Father Heart disease Son Kidney disease Surgical History Hx of CABG History of coronary artery stent placement S/P coronary artery bypass graft x 4 (~08/03/19) Stented coronary artery (03/06/19) History of umbilical hernia repair History of back surgery History of lumbar fusion Social History household members: spouse Smoking Status: Current some day smoker tobacco type: pipe and cigars alcohol intake: never substance use type: does not use caffeine: No ROS <LEX Flanagan - Last Filed: 09/13/23 22:11> ROS ED Constitutional Constitutional ED: Denies chills or fever(s) Cardiovascular Cardiovascular: Denies chest pain Respiratory/Chest Respiratory/Chest: Denies cough or dyspnea Gastrointestinal Gastrointestinal: Reports abdominal pain, nausea and vomiting; Denies constipation, diarrhea or melena Genitourinary Genitourinary ED: Denies dysuria or hematuria Musculoskeletal Musculoskeletal: Denies arthralgias or myalgias Integumentary Denies rash Neurologic Neurologic: Denies weakness EXAM <LEX Flanagan - Last Filed: 09/13/23 22:11> Physical Exam Const Vital Signs: 09/13/23 18:03 09/13/23 20:13 09/13/23 22:00 Temperature 97.2 F L Temperature Source Temporal Pulse Rate 92 81 84 Respiratory Rate 16 11 L 11 L Blood Pressure 149/84 H 180/97 H 234/124 H Blood Pressure Mean 105 124 160 Pulse Ox 96 95 97 Oxygen Delivery Method Room Air Room Air Room Air Positive well nourished, well developed and no apparent distress General Appearance ED: well developed HEENT Reports normocephalic and head/scalp atraumatic Mouth ED: Yes moist mucous membranes normal Eyes PERRL and EOMs intact bilaterally Neck full ROM and supple Chest Wall inspection of chest normal Resp normal respiratory effort and clear to auscultation bilaterally Cardio regular rate and regular rhythm GI soft to palpation, non-distended and no masses GI Narrative: Generalized upper abdominal tenderness to palpation, no rigidity or guarding. Negative McBurney's point tenderness. Back/Spine normal ROM and normal to inspection Extremity normal to inspection and full ROM Neuro oriented x3, CN's II-XII intact bilaterally, moves all extremities, no focal motor deficits and no sensory deficits noted Sensorium / Orientation: awake and alert Psych mental status grossly normal and thought process normal Skin no rashes or lesions noted and no wounds <Richie Douglas MD - Last Filed: 09/13/23 23:08> Physical Exam Const Vital Signs: 09/13/23 18:03 09/13/23 20:13 09/13/23 22:00 Temperature 97.2 F L Temperature Source Temporal Pulse Rate 92 81 84 Respiratory Rate 16 11 L 11 L Blood Pressure 149/84 H 180/97 H 234/124 H Blood Pressure Mean 105 124 160 Pulse Ox 96 95 97 Oxygen Delivery Method Room Air Room Air Room Air [facility] <LEX Flanagan - Last Filed: 09/13/23 22:11> [facility] Narrative Medical decision making narrative: Patient presenting with abdominal pain, nausea, vomiting, and hyperglycemia. He is nontoxic-appearing. He has upper abdominal tenderness to palpation, especially in the epigastric region. His glucometer read high, he did give himself insulin. Labs will be obtained to rule out DKA, leukocytosis, anemia, electrolyte abnormality, FLORY, UTI, pancreatitis, and hepatobiliary etiology. CT scan of the abdomen and pelvis will be obtained to rule out cholecystitis, appendicitis, bowel obstruction, and other etiology. He has been given IV fluids, morphine, and Zofran. CBC shows a WBC of 14.5, he has a BUN of 39 and a creatinine of 1.75 his kidney function appears to be around baseline. Alkaline phosphatase 141, normal anion gap, negative ketones, UA negative for UTI. He is not in DKA. CT scan shows constipation, no bowel obstruction. He did last have a bowel movement today that he states was normal. On reexamination he reports some improvement of his symptoms and is tolerating p.o. fluids. However, he reports a burning epigastric pain and is still slightly nauseous, he was given a GI cocktail, Phenergan, and Pepcid. His blood pressure is elevated, he has not had his blood pressure medication yet today but is unsure what he takes. I will give him a dose of hydralazine. Patient will be reexamined and as long as his blood pressure and symptoms improve he will be discharged home with a prescription for Zofran. Lab Data Attestation: I reviewed the patient's lab results. Labs: Laboratory Results - last 24 hr 09/13/23 09/13/23 09/13/23 18:53 18:55 21:31 WBC 14.5 H RBC 5.78 Hgb 16.5 Hct 49.1 MCV 84.9 MCH 28.5 MCHC 33.6 RDW Std Deviation 45.3 H RDW Coeff of Jr 14.8 H Plt Count 216 MPV 11.9 Immature Gran % (Auto) 1.200 H Neut % (Auto) 84.2 H Lymph % (Auto) 7.0 L Wayne % (Auto) 5.9 Eos % (Auto) 0.9 Baso % (Auto) 0.8 Absolute Neuts (auto) 12.2 H Absolute Lymphs (auto) 1.01 Nucleated RBC % 0 Sodium 136 Potassium 3.7 Chloride 101 Carbon Dioxide 27.0 Anion Gap 8 BUN 39 H Creatinine 1.75 H Estim Creat Clear Calc 50.79 Est GFR (MDRD) Af Amer 51 L Est GFR (MDRD) Non-Af 42 L BUN/Creatinine Ratio 22.3 H Glucose 238 H Calcium 9.6 Total Bilirubin 0.60 AST 15 ALT 26 Alkaline Phosphatase 141 H Total Protein 7.8 Albumin 3.5 Globulin 4.3 H Albumin/Globulin Ratio 0.8 L Lipase 44 Urine Color Yellow Urine Clarity Clear Urine pH 6.5 Ur Specific [place] 1.010 Urine Protein 500 H Urine Glucose (UA) 1000 H Urine Ketones Negative Urine Occult Blood 50 H Urine Nitrite Negative Urine Bilirubin Negative Urine Urobilinogen Normal Ur Leukocyte Esterase Negative Urine RBC 0-5 SEEN Urine WBC 0 SEEN Ur Squamous Epith Cells 0 SEEN Urine Bacteria 0 SEEN Urine Mucus 0 SEEN Acetone Level NEGATIVE POC Glucose 235 H Radiography Diagnostic Testing: Clinical Impression(s) from Imaging Studies Abdomen/Pelvis CT 09/13/23 19:31 IMPRESSION: Mild to moderate colonic stool retention. No evidence of bowel obstruction. No additional acute findings. Electronically Signed: Paco Bustillo DO at 20:40 EDT , <Richie Douglas MD - Last Filed: 09/13/23 23:08> [facility] Narrative Medical decision making narrative: Patient presenting with abdominal pain, nausea, vomiting, and hyperglycemia. He is nontoxic-appearing. He has upper abdominal tenderness to palpation, especially in the epigastric region. His glucometer read high, he did give himself insulin. Labs will be obtained to rule out DKA, leukocytosis, anemia, electrolyte abnormality, FLORY, UTI, pancreatitis, and hepatobiliary etiology. CT scan of the abdomen and pelvis will be obtained to rule out cholecystitis, appendicitis, bowel obstruction, and other etiology. He has been given IV fluids, morphine, and Zofran. CBC shows a WBC of 14.5, he has a BUN of 39 and a creatinine of 1.75 his kidney function appears to be around baseline. Alkaline phosphatase 141, normal anion gap, negative ketones, UA negative for UTI. He is not in DKA. CT scan shows constipation, no bowel obstruction. He did last have a bowel movement today that he states was normal. On reexamination he reports some improvement of his symptoms and is tolerating p.o. fluids. However, he reports a burning epigastric pain and is still slightly nauseous, he was given a GI cocktail, Phenergan, and Pepcid. His blood pressure is elevated, he has not had his blood pressure medication yet today but is unsure what he takes. I will give him a dose of hydralazine. Patient will be reexamined and as long as his blood pressure and symptoms improve he will be discharged home with a prescription for Zofran. Dr. Douglas: I have personally performed a face to face assessment of the patient and have reviewed the HANNA Note. I performed a substantive portion of the visit including all aspects of the following. My linares findings include: History is abdominal pain, hyperglycemia, nausea and vomiting. Reported blood sugars on glucometer reading high. Exam is afebrile. Vital signs noted. Abdomen soft nontender with normoactive bowel sounds. Regular rate and rhythm. Lungs clear to auscultation bilaterally. Neurological examination is nonfocal and nonlateralizing. Medical decision making: Check labs. I reviewed the laboratory work and he has a leukocytosis of 14.5 which I think is nonspecific, normal hemoglobin of 16.5. Lipase normal at 44 so I doubt pancreatitis. Glucose elevated at 238, patient had taken medication at home. BUN 39 with creatinine 1.75 with history of chronic kidney disease. Anion gap is normal. Serum ketones are negative. I do not feel that he is in diabetic ketoacidosis. I reviewed the radiology report of the CT of the abdomen and pelvis and there is no acute process but he has a large fecal burden. No bowel obstruction. Patient had rise in his systolic blood pressure, but he did not take his medications today. He was given hydralazine. He had been given Phenergan for his nausea and vomiting. As there is no evidence of obstruction, I do not feel he needs admission or any surgical consultation. I feel he can be discharged to follow-up. Disposition is discharged in stable condition. Other additions or changes: [None] History & Record Review Discussion w/independent historian: Patient Lab Data Labs: Laboratory Results - last 24 hr 09/13/23 09/13/23 09/13/23 18:53 18:55 21:31 WBC 14.5 H RBC 5.78 Hgb 16.5 Hct 49.1 MCV 84.9 MCH 28.5 MCHC 33.6 RDW Std Deviation 45.3 H RDW Coeff of Jr 14.8 H Plt Count 216 MPV 11.9 Immature Gran % (Auto) 1.200 H Neut % (Auto) 84.2 H Lymph % (Auto) 7.0 L Wayne % (Auto) 5.9 Eos % (Auto) 0.9 Baso % (Auto) 0.8 Absolute Neuts (auto) 12.2 H Absolute Lymphs (auto) 1.01 Nucleated RBC % 0 Sodium 136 Potassium 3.7 Chloride 101 Carbon Dioxide 27.0 Anion Gap 8 BUN 39 H Creatinine 1.75 H Estim Creat Clear Calc 50.79 Est GFR (MDRD) Af Amer 51 L Est GFR (MDRD) Non-Af 42 L BUN/Creatinine Ratio 22.3 H Glucose 238 H Calcium 9.6 Total Bilirubin 0.60 AST 15 ALT 26 Alkaline Phosphatase 141 H Total Protein 7.8 Albumin 3.5 Globulin 4.3 H Albumin/Globulin Ratio 0.8 L Lipase 44 Urine Color Yellow Urine Clarity Clear Urine pH 6.5 Ur Specific [place] 1.010 Urine Protein 500 H Urine Glucose (UA) 1000 H Urine Ketones Negative Urine Occult Blood 50 H Urine Nitrite Negative Urine Bilirubin Negative Urine Urobilinogen Normal Ur Leukocyte Esterase Negative Urine RBC 0-5 SEEN Urine WBC 0 SEEN Ur Squamous Epith Cells 0 SEEN Urine Bacteria 0 SEEN Urine Mucus 0 SEEN Acetone Level NEGATIVE POC Glucose 235 H Radiography Diagnostic Testing: Clinical Impression(s) from Imaging Studies Abdomen/Pelvis CT 09/13/23 19:31 IMPRESSION: Mild to moderate colonic stool retention. No evidence of bowel obstruction. No additional acute findings. Electronically Signed: Paco Bustillo DO at 20:40 EDT , Discharge Plan Triage Chief Complaint: Hyperglycemia ED Midlevel Provider: Lilo Lozoya ED Provider: Richie Douglas Dx/Rx/DC Orders Clinical Impression: Abdominal pain, Hyperglycemia, Nausea & vomiting, Hypertension Instructions: Abdominal Pain, ED Diabetic Hyperglycemia, ED Vomiting (Adult) Prescriptions: New ondansetron 4 mg tablet,disintegrating 4 mg PO Q8H PRN PRN (Reason: Nausea) Qty: 10 0RF No Action diazepam 5 mg tablet 5 mg PO BID PRN (Reason: tremors) pregabalin [Lyrica] 150 mg capsule 150 mg PO BID duloxetine [Cymbalta] 60 mg capsule,delayed release(DR/EC) 60 mg PO DAILY potassium chloride 20 mEq tablet extended release 20 meq PO DAILY Qty: 90 3RF furosemide 20 mg tablet 20 mg PO DAILY cholecalciferol (vitamin D3) 50 mcg (2,000 unit) tablet 50 mcg PO DAILY pantoprazole 40 MG tablet 40 mg PO DAILY aspirin 81 MG tablet,chewable 81 mg PO DAILY insulin glargine 100 UNIT/ML insulin pen 40 units subcut BID atorvastatin 80 MG tablet 80 mg PO QHS nitroglycerin 0.4 mg tablet, sublingual 0.4 mg sublingual Q5M PRN (Reason: Chest Pain) Patient Comments: Place 1 tablet under tongue as needed for Chest pain. max = 3 doses. If CP persists after 1st dose, call 911 Humalog KwikPen Insulin 200 unit/mL (3 mL) insulin pen See Protocol SUBCUT TIDCM Protocol: 6. Sliding Scale Insulin Custom Condition: mg/dl range Dose/Route: Number of Units Condition: 100-124 Dose/Route: 12 Condition: 125-149 Dose/Route: 14 Condition: 150-174 Dose/Route: 16 Condition: 175-199 Dose/Route: 18 Condition: 200-224 Dose/Route: 20 Condition: 225-249 Dose/Route: 22 Condition: 250-299 Dose/Route: 24 Protocol Text: Custom Sliding Scale call >299 Jardiance 10 mg tablet 10 mg PO DAILY carvedilol 3.125 mg tablet 3.125 mg PO BID metoclopramide HCl 5 mg Tablet 5 mg PO TIDAC Qty: 0 0RF ondansetron 4 mg tablet,disintegrating 4 mg PO Q8H PRN PRN (Reason: Nausea) Qty: 10 0RF clopidogrel 75 mg tablet 75 mg PO DAILY magnesium oxide 400 mg magnesium capsule 400 mg PO BID multivitamin Tablet 1 tab PO DAILY Primary Care Provider: Chema Mckeon Referrals: Chema Mckeon, [Primary Care Provider] - 5-7 Days Activity Restrictions/Additional Instructions: Please follow-up with your PCP and return for any worsening of your symptoms. Print Language: [place] Disposition Disposition: Home, Self Care
[2023-09-13] MEDS: Morphine 4 MG/ML Syringe IV (19:55)
[2023-09-13] MEDS: Ondansetron 4 MG/2 ML Vial IV (19:55)
[2023-09-13] MEDS: 0.9% Normal Saline (1000mL) 1,000 ML 999 ML IV (19:55)
[2023-09-13 20:05] LABS: ALB/GLOB Ratio 0.8 RATIO (0.9-2.4); AST(SGOT) 15 U/L (15-37); Alanine Aminotransfer ALT/SGPT 26 U/L (16-61); Albumin, Serum 3.5 g/dL (3.2-5.0); Alkaline Phosphatase 141 U/L (45-117); Anion Gap 8 (5-15); BUN 39 mg/dL (7-18); BUN/Creat Ratio 22.3 RATIO (10-20); Calcium,Total 9.6 mg/dL (8.5-10.1); Chloride 101 mmol/L (98-107); Creatinine, Serum 1.75 mg/dL (0.70-1.30); EST Glomerular Filtration Rate 42 mL/min (>60); Est Glom Filt Rate - Afr Amer 51 mL/min (>60); Estimated Creatinine Clearance 50.79 ml/min; Globulin 4.3 g/dL (2.2-4.2); Glucose 238 mg/dL (74-106); Potassium 3.7 mmol/L (3.5-5.1); Protein, Total 7.8 g/dL (6.4-8.2); Sodium Level 136 mmol/L (136-145)
[2023-09-13 20:13] VITALS: BP 180/97; PULSE 81; RESP 11; O2SAT 95
[2023-09-13 20:22] LABS: Lipase 44 U/L (13-75)
[2023-09-13 21:36] LABS: Bacteria 0 SEEN /hpf (None Seen); Mucous, Urine 0 SEEN /hpf (<or=2+); Squamous Epithelial Cells - UA 0 SEEN /hpf (0-5); White Blood Cells 0 SEEN /hpf (0-5)
[2023-09-13 21:44] LABS: Color, Urine Yellow (Yellow); Glucose, Dipstick 1000 mg/dl (Normal); Ketone-Dipstick Negative (Negative); Leukocyte Esterase-Dipstick Negative /ul (Negative); Nitrite-Dipstick Negative (Negative); Occult Blood-Urine 50 /ul (Negative); Protein-Dipstick 500 mg/dl (Negative); Urine Bilirubin Dipstick Negative (Negative); Urine Clarity Clear (Clear); Urine Urobilinogen Normal (Normal); Urine pH 6.5 (5.0 - 8.0)
[2023-09-13 22:00] VITALS: BP 234/124; PULSE 84; RESP 11; O2SAT 97
[2023-09-13 22:21] LABS: Red Blood Cells-Urine 0-5 SEEN /hpf (0-5)
[2023-09-13] MEDS: proMETHazine 25 MG/ML Syringe 12.5 MG IM (22:36)
[2023-09-13] MEDS: hydrALAZINE 20 MG/ML Vial 10 MG IV (22:37)
[2023-09-13] MEDS: hydrALAZINE 20 MG/ML Vial IV (23:10)
[2023-09-13 23:16] VITALS: BP 162/100
[2023-09-13 23:18] VITALS: BP 162/100; PULSE 95; RESP 16; TEMP 36.3; O2SAT 95
== END 2023-09-13 23:32 | disposition home or self-care (01) ==
PROVIDERS: Physician Assistant; Emergency Provider Emergency Medicine; PCP Family Medicine; Visit Provider Emergency Medicine
DX: E11.65 Type 2 diabetes mellitus with hyperglycemia (principal); I13.0 Hypertensive heart and chronic kidney disease with heart failure and stage 1 through stage 4 chronic kidney disease, or unspecified chronic kidney disease; I50.20 Unspecified systolic (congestive) heart failure; E11.22 Type 2 diabetes mellitus with diabetic chronic kidney disease; Z79.4 Long term (current) use of insulin; N18.30 Chronic kidney disease, stage 3 unspecified; R11.2 Nausea with vomiting, unspecified; E78.5 Hyperlipidemia, unspecified; I25.10 Atherosclerotic heart disease of native coronary artery without angina pectoris; I25.2 Old myocardial infarction; Z86.73 Personal history of transient ischemic attack (TIA), and cerebral infarction without residual deficits; F32.A Depression, unspecified; F41.9 Anxiety disorder, unspecified; K21.9 Gastro-esophageal reflux disease without esophagitis; Z79.82 Long term (current) use of aspirin; Z79.02 Long term (current) use of antithrombotics/antiplatelets; Z95.5 Presence of coronary angioplasty implant and graft; F17.290 Nicotine dependence, other tobacco product, uncomplicated; R10.13 Epigastric pain
CPT/HCPCS: 74177; 80053; 81001; 82009; 82962; 83690; 85025; 96361; 96372; 96374; 96375; 96376; 99283; J7030; Q9967; A4216; J2405

== ENCOUNTER 2023-09-15 14:18 | Emergency (ER) | payer MEDICARE, SELFPAY ==
[2019-03-06 08:28] VITALS: BMI 29.0
[2023-09-15 14:20] VITALS: BP 161/81; PULSE 86; RESP 18; TEMP 36.6; O2SAT 97; BMI 32.3
--- NOTE | 2023-09-15 14:31 | EX.ED.DYSGE1 ---
HPI History of Present Illness Chief Complaint: Abd Pain Narrative Narrative: 62-year-old male past medical history of hypertension, diabetes, coronary artery disease with bypass, presents with abdominal pain versus chest pain all across his abdomen in the epigastrium. He states that it's right underneath my breasts. Of note, he was seen in the emergency department 2 days ago with the same complaint of abdominal pain. He had not taken his antihypertensives at that time. He had CT that was performed that showed large fecal burden but nothing acute. He states that after he was released from the hospital, although his CT showed large fecal burden, he was able to have a bowel movement. He denies any fevers or chills, no nausea or vomiting, no exacerbating or alleviating factors. He called EMS today because the pain, and he states he is also short of breath. [facility] Medical History Depression Smoker Diabetes Tremor CKD (chronic kidney disease) stage 3, GFR 30-59 ml/min 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 Obesity Polyp of colon Systolic CHF GERD (gastroesophageal reflux disease) Ischemic cardiomyopathy Essential hypertension Hyperlipidemia Cardiomyopathy Renal insufficiency Arteriosclerosis of coronary artery in patient with history of myocardial infarction STEMI (ST elevation myocardial infarction) (03/05/19) Type 2 diabetes mellitus Secondary hypertension CVA (cerebral vascular accident) Syncope and collapse Bradycardia Syncope Intractable nausea and vomiting Anxiety Depression Noncompliance with diabetes treatment Back pain FLORY (acute kidney injury) Nonketotic hyperglycinemia Nausea Abdominal pain Hematochezia Home Medications ?Medication ?Instructions ?Recorded ?Last Taken ?Type diazepam 5 mg tablet 5 mg PO BID PRN tremors 02/27/19 11/16/22 History duloxetine 60 mg capsule,delayed 60 mg PO DAILY depression 02/27/19 11/16/22 History release (Cymbalta) pregabalin 150 mg capsule (Lyrica) 150 mg PO BID neuropathy 02/27/19 11/16/22 History aspirin 81 mg chewable tablet 81 mg PO DAILY heart health 03/10/19 11/16/22 History pantoprazole 40 mg tablet,delayed 40 mg PO DAILY acid reflux 03/10/19 11/16/22 History release insulin glargine 100 unit/mL (3 40 units subcut BID diabetes 03/20/19 11/16/22 History mL) subcutaneous pen clopidogrel 75 mg tablet 75 mg PO DAILY antiplatelet 08/08/19 11/16/22 History magnesium oxide 400 mg PO BID supplement 08/08/19 11/16/22 History multivitamin 1 tab PO DAILY supplement 08/08/19 11/16/22 History potassium chloride 20 mEq 20 meq PO DAILY supplement #90 tabs 09/11/19 11/16/22 Rx tablet,extended release cholecalciferol (vitamin D3) 50 50 mcg PO DAILY supplement 09/27/19 11/16/22 History mcg (2,000 unit) tablet furosemide 20 mg tablet 20 mg PO DAILY diuretic 11/20/19 11/16/22 History atorvastatin 80 mg tablet 80 mg PO QHS cholesterol 11/26/19 11/16/22 History insulin lispro 200 unit/mL (3 mL) See Protocol subcut TIDCM diabetes 09/12/20 11/16/22 History subcutaneous pen (Humalog KwikPen U-200 Insulin) nitroglycerin 0.4 mg sublingual 0.4 mg sublingual Q5M PRN Chest 09/12/20 Unknown History tablet Pain carvedilol 3.125 mg tablet 3.125 mg PO BID heart 11/17/22 11/16/22 History empagliflozin 10 mg tablet 10 mg PO DAILY diabetes 11/17/22 11/16/22 History (Jardiance) metoclopramide HCl 5 mg tablet 5 mg PO TIDAC #0 tabs 11/19/22 Unknown Rx ondansetron 4 mg disintegrating 4 mg PO Q8H PRN PRN Nausea #10 tabs 05/07/23 Unknown Rx tablet ondansetron 4 mg disintegrating 4 mg PO Q8H PRN PRN Nausea #10 tabs 09/13/23 Unknown Rx tablet Allergy/AdvReac Type Severity Reaction Status Date / Time etodolac Allergy Unknown Unknown Verified 09/15/23 14:23 nifedipine (From Adalat) Allergy Unknown Verified 09/15/23 14:23 Family History Father Heart disease Son Kidney disease Surgical History Hx of CABG History of coronary artery stent placement S/P coronary artery bypass graft x 4 (~08/03/19) Stented coronary artery (03/06/19) History of umbilical hernia repair History of back surgery History of lumbar fusion Social History household members: spouse Smoking Status: Current some day smoker tobacco type: pipe and cigars alcohol intake: never substance use type: does not use caffeine: No ROS ROS ED ROS Narrative Constitutional: No fever, no chills. HEENT: No sore throat. No neck pain. No loss of vision. No rhinorrhea. Cardiovascular: No chest pain. No palpitations. No pedal edema. Respiratory: No cough, positive shortness of breath. Abdominal: Epigastric abdominal pain. No nausea. No vomiting. Last normal bowel movement 2 days ago. Genitourinary: No dysuria. No hematuria. Musculoskeletal: No myalgias. No arthralgias. Neurologic: No headaches. No dizziness. No lightheadedness. Skin: No rash. No change in color. Psychiatric: No depression. No anxiety. EXAM Physical Exam Narrative Exam Narrative: Afebrile. Vital signs noted. HEENT: Normocephalic. Atraumatic. PERRL, EOMI. Neck soft and supple. No point tenderness or step off. Cardiovascular: Regular rate and rhythm. No murmurs, rubs, or gallops appreciated. Respiratory: No tachypnea. Lungs clear to auscultation bilaterally. Gastrointestinal: Abdomen soft, minimal tenderness to palpation in epigastrium. With normoactive bowel sounds. No rebound or guarding. Neurological: Awake. Alert. Nonfocal, nonlateralizing. Skin: No rash. Normal color. No pallor. Musculoskeletal: No pedal edema. Full range of motion extremities. Const Vital Signs: 09/15/23 14:20 09/15/23 14:30 09/15/23 16:19 Temperature 98 F Temperature Source Temporal Pulse Rate 86 88 Respiratory Rate 18 18 Blood Pressure 161/81 H 164/108 H Blood Pressure Mean 107 126 Pulse Ox 97 98 Oxygen Delivery Method Room Air Room Air Room Air 09/15/23 17:57 Temperature 98 F Temperature Source Pulse Rate 81 Respiratory Rate 18 Blood Pressure 156/76 H Blood Pressure Mean 102 Pulse Ox 98 Oxygen Delivery Method MDM MDM MDM Narrative Medical decision making narrative: I reviewed the patient's prior records and additionally I had seen him 2 days ago in conjunction with the [facility]. I reviewed his radiology report again of the CT of the abdomen and pelvis and there was no acute process, but had a large fecal burden. I am unsure as to the cause of his shortness of breath as his lungs are clear to auscultation bilaterally and his pulse ox is 97% on room air. I have low suspicion for pneumonia or pneumothorax. However, given his cardiac history chest pain workup was pursued. I will also check his lipase again. I reviewed his laboratory work and he has slightly elevated white count of 11.3 which is improved over previous, hemoglobin normal at 14.5, hematocrit 42.8, platelet count normal at 177. Sodium slightly low at 134 which once again I think is nonspecific, normal potassium of 3.8, creatinine 1.72 and at his baseline with BUN of 31. Initial high-sensitivity troponin is 56 with repeat at 59 for a negative delta troponin. EKG obtained and interpreted by myself independently as normal sinus rhythm at 80 bpm without ectopy or acute ST changes. No STEMI. I obtained x-rays/acute abdominal series with single view chest x-ray and interpreted them independently. His chest x-ray shows no evidence of acute pneumonia or pneumothorax. There is a lot of stool throughout the colon and abdomen but no evidence of an obstructive pattern. I reviewed the radiology report which confirms my independent interpretation. Repeat lipase is normal at 31. At this point in time, after Zofran and morphine, he feels improved. He did have elevation in his blood pressure again as he did 2 days ago because he has not taken his medication today. He was administered hydralazine. He was told to start an [id number] laxative. I did discuss with him the possibility of observation or admission for custodial placement as this is his second visit in the last few days, but he declined. He is comfortable with discharge. Disposition is discharged home in stable condition. History & Record Review Discussion w/independent historian: Patient Additional record(s) reviewed:: Prior ED visit and Prior labs Lab Data Attestation: I reviewed the patient's lab results. Labs: Laboratory Results - last 24 hr 09/15/23 09/15/23 09/15/23 14:30 16:35 16:54 WBC 11.3 H RBC 5.09 Hgb 14.5 Hct 42.8 MCV 84.1 MCH 28.5 MCHC 33.9 RDW Std Deviation 44.8 H RDW Coeff of Jr 14.7 H Plt Count 177 MPV 11.2 Immature Gran % (Auto) 1.000 H Neut % (Auto) 76.4 H Lymph % (Auto) 11.7 L [place] % (Auto) 8.6 Eos % (Auto) 1.8 Baso % (Auto) 0.5 Absolute Neuts (auto) 8.7 H Absolute Lymphs (auto) 1.33 Nucleated RBC % 0 Sodium 134 L Potassium 3.9 Chloride 98 Carbon Dioxide 29.0 Anion Gap 7 BUN 31 H Creatinine 1.72 H Estim Creat Clear Calc 52.02 Est GFR (MDRD) Af Amer 52 L Est GFR (MDRD) Non-Af 43 L BUN/Creatinine Ratio 18.0 Glucose 347 H Calcium 9.0 Total Bilirubin 0.50 AST 15 ALT 23 Alkaline Phosphatase 111 Troponin I High Sens 56 59 Total Protein 6.6 Albumin 2.9 L Globulin 3.7 Albumin/Globulin Ratio 0.8 L Lipase 31 POC Glucose 260 H Radiography Diagnostic Testing: Clinical Impression(s) from Imaging Studies Acute Abdomen Series 09/15/23 14:45 IMPRESSION: Large amount of fecal material is seen in the colon. Mild degree of increased markings at the left lung base suggestive of either linear atelectasis and/or scarring. Electronically Signed: You Thorpe MD at 15:10 EDT , Discharge Plan Triage Chief Complaint: Abd Pain ED Provider: Richie Douglas Dx/Rx/DC Orders Clinical Impression: Nausea & vomiting, Hyperglycemia, Hypertension, Abdominal pain Instructions: ED Diabetic Hyperglycemia, ED Abdominal Pain Unkn Cause Male... Prescriptions: No Action diazepam 5 mg tablet 5 mg PO BID PRN (Reason: tremors) pregabalin [Lyrica] 150 mg capsule 150 mg PO BID duloxetine [Cymbalta] 60 mg capsule,delayed release(DR/EC) 60 mg PO DAILY potassium chloride 20 mEq tablet extended release 20 meq PO DAILY Qty: 90 3RF furosemide 20 mg tablet 20 mg PO DAILY cholecalciferol (vitamin D3) 50 mcg (2,000 unit) tablet 50 mcg PO DAILY pantoprazole 40 MG tablet 40 mg PO DAILY aspirin 81 MG tablet,chewable 81 mg PO DAILY insulin glargine 100 UNIT/ML insulin pen 40 units subcut BID atorvastatin 80 MG tablet 80 mg PO QHS nitroglycerin 0.4 mg tablet, sublingual 0.4 mg sublingual Q5M PRN (Reason: Chest Pain) Patient Comments: Place 1 tablet under tongue as needed for Chest pain. max = 3 doses. If CP persists after 1st dose, call 911 Humalog KwikPen Insulin 200 unit/mL (3 mL) insulin pen See Protocol SUBCUT TIDCM Protocol: 6. Sliding Scale Insulin Custom Condition: mg/dl range Dose/Route: Number of Units Condition: 100-124 Dose/Route: 12 Condition: 125-149 Dose/Route: 14 Condition: 150-174 Dose/Route: 16 Condition: 175-199 Dose/Route: 18 Condition: 200-224 Dose/Route: 20 Condition: 225-249 Dose/Route: 22 Condition: 250-299 Dose/Route: 24 Protocol Text: Custom Sliding Scale call >299 Jardiance 10 mg tablet 10 mg PO DAILY carvedilol 3.125 mg tablet 3.125 mg PO BID metoclopramide HCl 5 mg Tablet 5 mg PO TIDAC Qty: 0 0RF ondansetron 4 mg tablet,disintegrating 4 mg PO Q8H PRN PRN (Reason: Nausea) Qty: 10 0RF ondansetron 4 mg tablet,disintegrating 4 mg PO Q8H PRN PRN (Reason: Nausea) Qty: 10 0RF clopidogrel 75 mg tablet 75 mg PO DAILY magnesium oxide 400 mg magnesium capsule 400 mg PO BID multivitamin Tablet 1 tab PO DAILY Primary Care Provider: Chema Mckeon Referrals: Chema Mckeon DO [Primary Care Provider] - As soon as possible Print Language: Belarusian Disposition Disposition: Home, Self Care Discharge Date/Time: 09/15/23 17:58
[2023-09-15 14:36] LABS: Absolute Lymphocyte Count 1.33 X10^3/uL (0.83-4.51); Absolute Neutrophil Count 8.7 X10^3/uL (2.0-7.7); Basophil# 0.06 X10^3/uL; Basophil% 0.5 % (0-1); Eosinophils% 1.8 % (0-5); Hematocrit 42.8 % (40-54); Hemoglobin 14.5 g/dL (13.0-16.5); Lymphocyte # 1.33 X10^3/ul (0.83-4.51); Lymphocyte % 11.7 % (19-41); Mean Corp Hgb Conc 33.9 g/dL (32-36); Mean Corpuscular Hgb 28.5 pg (27.0-32.0); Mean Corpuscular Volume 84.1 fL (80-94); Mean Platelet Vol. 11.2 fl (6.2-12.0); Monocyte# 0.98 X10^3/uL; Monocyte% 8.6 % (0-10); NRBC Flagged by Analyzer 0 % (0-5); Neutrophil # 8.66 X10^3/uL (2.7-7.7); Neutrophil % 76.4 % (47-70); Platelet Count 177 K/mm3 (150-450); RBC Distribution Width CV 14.7 % (11.6-14.6); RBC Distribution Width SD 44.8 fl (35.1-43.9); Red Blood Count 5.09 M/mm3 (4.6-6.2); White Blood Count 11.3 K/mm3 (4.4-11.0)
--- NOTE | 2023-09-15 14:45 | RAD_ITS ---
STUDY: X-RAY - ACUTE ABDOMINAL SERIES REASON FOR EXAM: Male, 62 years old. Abdominal pain TECHNIQUE: Single view of the chest. Supine, erect, and decubitus view(s) of the abdomen were obtained. COMPARISON: Comparison is made with prior chest radiograph dated November 05, 2023. FINDINGS: EKG electrodes are seen. Mild increased markings at the left lung base suggestive of linear atelectasis and/or scarring. Prior CABG. Borderline cardiac megaly. Normal mediastinum and ella. Normal visualized pulmonary arteries. There is atherosclerotic calcification of the aortic arch with tortuosity. There is an abundance of fecal material throughout the colon. No evidence of free air. Prior laminectomy and fusion at the L4-L5 and L5-S1 levels. RAD/Acute Abd Inc Chest (Portable) IMPRESSION: Large amount of fecal material is seen in the colon. Mild degree of increased markings at the left lung base suggestive of either linear atelectasis and/or scarring. Electronically Signed: You Thorpe MD at 15:10 EDT ,
[2023-09-15 15:02] LABS: ALB/GLOB Ratio 0.8 RATIO (0.9-2.4); AST(SGOT) 15 U/L (15-37); Alanine Aminotransfer ALT/SGPT 23 U/L (16-61); Albumin, Serum 2.9 g/dL (3.2-5.0); Alkaline Phosphatase 111 U/L (45-117); Anion Gap 7 (5-15); BUN 31 mg/dL (7-18); Chloride 98 mmol/L (98-107); Creatinine, Serum 1.72 mg/dL (0.70-1.30); EST Glomerular Filtration Rate 43 mL/min (>60); Est Glom Filt Rate - Afr Amer 52 mL/min (>60); Estimated Creatinine Clearance 52.02 ml/min; Globulin 3.7 g/dL (2.2-4.2); Glucose 347 mg/dL (74-106); Lipase 31 U/L (13-75); Potassium 3.9 mmol/L (3.5-5.1); Protein, Total 6.6 g/dL (6.4-8.2); Sodium Level 134 mmol/L (136-145); Troponin-I HS (w/2H Reflex) 56 pg/mL (3.0-78.0)
[2023-09-15] MEDS: Morphine 4 MG/ML Syringe IV (15:16)
[2023-09-15] MEDS: Ondansetron 4 MG/2 ML Vial IV (15:16)
[2023-09-15 16:19] VITALS: BP 164/108; PULSE 88; RESP 18; O2SAT 98
[2023-09-15 16:33] LABS: Reflex Troponin-HS? (from REC) Y
[2023-09-15] MEDS: Insulin Lispro 100 UNIT/ML INSULN.PEN 8 UNIT SC (16:54)
[2023-09-15 17:15] LABS: Bedside Glucose 260 mg/dL (74-106)
[2023-09-15 17:27] LABS: Troponin-I HS 59 pg/mL (3.0-78.0)
[2023-09-15] MEDS: hydrALAZINE 20 MG/ML Vial 10 MG IV (17:43)
[2023-09-15 17:57] VITALS: BP 156/76; PULSE 81; RESP 18; TEMP 36.6; O2SAT 98
== END 2023-09-15 17:58 | disposition home or self-care (01) ==
PROVIDERS: Emergency Provider Emergency Medicine; PCP Family Medicine; Visit Provider Emergency Medicine
DX: R10.13 Epigastric pain (principal); I13.0 Hypertensive heart and chronic kidney disease with heart failure and stage 1 through stage 4 chronic kidney disease, or unspecified chronic kidney disease; I50.20 Unspecified systolic (congestive) heart failure; E11.65 Type 2 diabetes mellitus with hyperglycemia; E11.22 Type 2 diabetes mellitus with diabetic chronic kidney disease; Z79.4 Long term (current) use of insulin; N18.30 Chronic kidney disease, stage 3 unspecified; R07.9 Chest pain, unspecified; R11.2 Nausea with vomiting, unspecified; I25.10 Atherosclerotic heart disease of native coronary artery without angina pectoris; E78.5 Hyperlipidemia, unspecified; I25.2 Old myocardial infarction; Z86.73 Personal history of transient ischemic attack (TIA), and cerebral infarction without residual deficits; R25.1 Tremor, unspecified; Z79.899 Other long term (current) drug therapy; F32.A Depression, unspecified; Z79.82 Long term (current) use of aspirin; K21.9 Gastro-esophageal reflux disease without esophagitis; Z79.02 Long term (current) use of antithrombotics/antiplatelets; Z95.1 Presence of aortocoronary bypass graft; Z95.5 Presence of coronary angioplasty implant and graft; F17.290 Nicotine dependence, other tobacco product, uncomplicated
CPT/HCPCS: 74022; 80053; 82962; 83690; 84484; 85025; 93005; 96372; 96374; 96375; 99283; J7030; A4216; J2405

== ENCOUNTER → 2023-09-17 | Outpatient (CLI) | payer MEDICARE, SELFPAY ==
[2019-03-06 08:28] VITALS: BMI 29.0
[2023-09-17 16:29] LABS: BNP,B-Type NATRIURETIC PEPTIDE 55.6 pg/mL (0-100)
[2023-09-17 16:30] LABS: Hemoglobin A1c 7.7 % (3.8-5.6)
[2023-09-17 16:31] LABS: Cholesterol 135 mg/dL (200); High Density Lipoprotein 38 mg/dL; Triglycerides 289 mg/dL; Very Low Density Lipoprotein 58 mg/dL (5-40)
== END | disposition home or self-care (01) ==
LOC: LABSPEC 15:32
PROVIDERS: PCP Family Medicine; Referring Provider Family Medicine; Visit Provider Family Medicine
DX: E11.21 Type 2 diabetes mellitus with diabetic nephropathy (principal); I50.20 Unspecified systolic (congestive) heart failure; Z12.5 Encounter for screening for malignant neoplasm of prostate; R06.00 Dyspnea, unspecified
CPT/HCPCS: 80061; 83036; 83880; 84153; 85379; G0103

== ENCOUNTER → 2023-10-28 | Outpatient (CLI) | payer MEDICARE, SELFPAY ==
[2019-03-06 08:28] VITALS: BMI 29.0
--- NOTE | 2023-10-28 13:56 | ECHOCS_ITS ---
Reason For Study: UPDATE EF Procedure This was a 2D Doppler, Color Flow transthoracic echocardiogram. The study was technically difficult. Contrast injection was performed. Exam performed in department. Left Ventricle Normal LV size. The left ventricular ejection fraction is 30 %. Moderately severe segmental systolic dysfunction (see wall motion). Mid-Inferior: Akinetic. Infero-Basal: Akinetic. Mid-inferoseptal : Severly Hypokinetic. The rest of the wall segments are hypokinetic. Right Ventricle Normal RV size. Normal systolic function. Atria Normal left atrium. Normal right atrium. Mitral Valve Normal mitral valve. Trivial eccentric mitral valve insufficiency. Tricuspid Valve Normal tricuspid valve. Aortic Valve Trisinus/trileaflet aortic valve. Pulmonic Valve The pulmonic valve is not well visualized. Great Vessels Normal aortic root. The pulmonary artery is normal size. Normal inferior vena cava. Pericardium/Pleural No pericardial effusion. Medication 22 gauge I.V. with prn adaptor inserted into left arm. Diluted definity 2.5ml given slow IV push to enhance endocardial definition. MMode/2D Measurements & Calculations LVIDd: 5.6 cm IVSd: 1.4 cm LVOT diam: 2.0 cm LVIDs: 5.0 cm LVPWd: 1.5 cm FS: 11.0 % LVOT area: 3.2 cm2 Ao root diam: 3.6 cm LAV(MOD-bp): 59.9 ml LVAd ap4: 34.8 cm2 LAV(MOD-bp) Indexed: 29.0 ml/m2 LVLd ap4: 8.5 cm LAV(MOD-sp2): 49.6 ml EDV(MOD-sp4): 117.0 ml LAV(MOD-sp4): 69.5 ml EDV(sp4-el): 120.8 ml LVAs ap4: 25.0 cm2 LVLs ap4: 7.8 cm ESV(MOD-sp4): 68.2 ml ESV(sp4-el): 68.1 ml EF(MOD-sp4): 41.7 % EF(sp4-el): 43.6 % SV(MOD-sp4): 48.8 ml SV(sp4-el): 52.6 ml LA A4 area: 22.2 cm2 LA dimension(2D): 4.8 cm RA A4 area: 10.8 cm2 TAPSE: 1.5 cm Time Measurements MV dec time: 0.16 sec Doppler Measurements & Calculations MV E max kulwinder: 54.3 cm/sec Lat Peak E' Kulwinder: 7.9 cm/sec Med Peak E' Kulwinder: 4.4 cm/sec MV A max kulwinder: 75.7 cm/sec E/E' lat: 6.9 E/E' med: 12.3 MV E/A: 0.72 MV V2 max: 76.2 cm/sec MV dec slope: 330.5 cm/sec2 Ao V2 max: 96.4 cm/sec MV max P.3 mmHg Ao max P.7 mmHg MV V2 mean: 48.1 cm/sec Ao V2 mean: 69.2 cm/sec MV mean P.0 mmHg Ao mean P.2 mmHg MV V2 VTI: 22.6 cm Ao V2 VTI: 19.5 cm MVA(VTI): 2.6 cm2 AV (velocity ratio): 0.93 STACI(I,D): 3.0 cm2 STACI(V,D): 3.0 cm2 LV V1 max: 92.2 cm/sec SV(LVOT): 57.9 ml PA V2 max: 78.7 cm/sec LV V1 max P.4 mmHg PA V2 mean: 58.2 cm/sec LV V1 mean P.8 mmHg LV V1 mean: 60.7 cm/sec LV V1 VTI: 18.2 cm ECHO/Echo Complete W/ Contrast Interpretation Summary The left ventricular ejection fraction is 30 %. Normal LV size. Moderately severe segmental systolic dysfunction (see wall motion). Contrast injection was performed. Compared to previous study, the left ventricu lar systolic function is the same.. Ordering Physician: Chema Mckeon Referring Physician: Chema Mckeon Performed By: Monica Stevenson and Student
== END | disposition home or self-care (01) ==
PROVIDERS: PCP Family Medicine; Referring Provider Family Medicine; Visit Provider Family Medicine
DX: I50.20 Unspecified systolic (congestive) heart failure (principal); R06.09 Other forms of dyspnea
CPT/HCPCS: 93306; Q9957; A4216; C8929

== ENCOUNTER 2024-01-06 19:47 | Inpatient (IN) | payer MEDICARE, SELFPAY ==
[2019-03-06 08:28] VITALS: BMI 29.0
[2024-01-06] VITALS (10 sets, daily range): BP systolic 168–212; BP diastolic 91–120; PULSE 88–97; RESP 16–25; TEMP 36.6–36.8; O2SAT 98–99; BMI 33.9
--- NOTE | 2024-01-06 21:47 | EDS_ITS ---
HPI History of Present Illness Chief Complaint: Shortness of Breath Informant: patient Narrative Narrative: Patient is a 63-year-old male with multiple comorbidities including hypertension, ischemic cardiomyopathy, coronary disease status post CABG, CKD, systolic heart failure, stroke, type 2 diabetes mellitus and neuropathy with debility. Patient is presenting from home where he states he is wheelchair- bound however he has to get out of his wheelchair to go to the bathroom as he does not have accessible bathroom at home. He states he was at home with his who is small and cannot really help him. He states he was had a fall tonight however his was able to catch him. He is concerned that he needs to go to nursing facility at least for a week or 2 to try to increase his strength and give his some relief. He notes that over the past month he has had worsening shortness of breath and dyspnea on exertion. He states that minimal exertion of getting himself out of the wheelchair trying to use the restroom makes him very short of breath, sweaty and dizzy. He states he has some mild chest pain but all states he has not eaten today and thinks it might be associated with this. He is also concerned because his blood sugars been high. He has a continuous glucose monitor and his blood sugars currently in the 360s. He states that he is inclined with his medicines. He denies any recent steroids. Denies any fever. No other complain ts or concerns at this time [facility] Medical History Chest pain Debility Generalized weakness Depression CKD (chronic kidney disease) stage 3, GFR 30-59 ml/min 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 Obesity Polyp of colon Systolic CHF GERD (gastroesophageal reflux disease) Ischemic cardiomyopathy Essential hypertension Hyperlipidemia Arteriosclerosis of coronary artery in patient with history of myocardial infarction STEMI (ST elevation myocardial infarction) (03/05/19) Type 2 diabetes mellitus CVA (cerebral vascular accident) Syncope and collapse Bradycardia Syncope Anxiety Noncompliance with diabetes treatment Back pain FLORY (acute kidney injury) Nonketotic hyperglycinemia Hematochezia Home Medications ?Medication ?Instructions ?Recorded ?Last Taken ?Type aspirin 81 mg chewable tablet 81 mg PO DAILY heart health 03/10/19 11/16/22 History pantoprazole 40 mg tablet,delayed 40 mg PO DAILY acid reflux 03/10/19 11/16/22 History release insulin glargine 100 unit/mL (3 40 units subcut BID diabetes 03/20/19 11/16/22 History mL) subcutaneous pen clopidogrel 75 mg tablet 75 mg PO DAILY antiplatelet 08/08/19 11/16/22 History magnesium oxide 400 mg PO BID supplement 08/08/19 11/16/22 History cholecalciferol (vitamin D3) 50 50 mcg PO DAILY supplement 09/27/19 11/16/22 History mcg (2,000 unit) tablet atorvastatin 80 mg tablet 80 mg PO QHS cholesterol 11/26/19 11/16/22 History insulin lispro 200 unit/mL (3 mL) See Protocol subcut TIDCM diabetes 09/12/20 11/16/22 History subcutaneous pen (Humalog KwikPen U-200 Insulin) nitroglycerin 0.4 mg sublingual 0.4 mg sublingual Q5M PRN Chest 09/12/20 Unknown History tablet Pain carvedilol 3.125 mg tablet 3.125 mg PO BID heart 11/17/22 11/16/22 History empagliflozin 10 mg tablet 10 mg PO DAILY diabetes 11/17/22 11/16/22 History (Jardiance) ondansetron 4 mg disintegrating 4 mg PO Q8H PRN PRN Nausea #10 tabs 09/13/23 Unknown Rx tablet duloxetine 60 mg capsule,delayed 120 mg PO DAILY depression 11/23/23 Unknown History release (Cymbalta) hydrochlorothiazide 25 mg tablet 25 mg PO DAILY 11/23/23 Unknown History Allergy/AdvReac Type Severity Reaction Status Date / Time etodolac Allergy Unknown Unknown Verified 01/06/24 19:54 nifedipine (From Adalat) Allergy Unknown Verified 01/06/24 19:54 Family History Father Heart disease Son Kidney disease Surgical History Hx of CABG History of coronary artery stent placement S/P coronary artery bypass graft x 4 (~08/03/19) Stented coronary artery (03/06/19) History of umbilical hernia repair History of back surgery History of lumbar fusion Social History household members: spouse Smoking Status: Current some day smoker tobacco type: pipe and cigars alcohol intake: never substance use type: does not use caffeine: No ROS ROS ED Constitutional Constitutional ED: Reports sweats; Denies chills or fever(s) ENT ENT ED: Denies rhinorrhea or sore throat Cardiovascular Cardiovascular: Reports chest pain; Denies palpitations Respiratory/Chest Respiratory/Chest: Reports cough, dyspnea and dyspnea on exertion; Denies sputum Gastrointestinal Gastrointestinal: Reports abdominal pain; Denies melena, nausea or vomiting Genitourinary Genitourinary ED: Reports other Details: Denies any dysuria but does report incomplete emptying of the bladder when he urinates Musculoskeletal Musculoskeletal: Denies arthralgias or myalgias Integumentary Denies rash Neurologic Neurologic: Reports paresthesias, weakness and other Details: States he feels off balance, reports chronic weakness and numbness of his legs secondary to neuropathy Psychiatric Psychiatric: Reports anxiety EXAM Physical Exam Const Vital Signs: 01/06/24 19:47 01/06/24 19:53 01/06/24 19:55 Temperature 98.2 F Temperature Source Oral Pulse Rate 97 Respiratory Rate 18 Respiratory Effort Normal Normal Non-Labored Respiratory Depth Normal Respiratory Pattern Normal Blood Pressure 177/105 H Blood Pressure Mean 129 Pulse Ox 98 Oxygen Delivery Method Room Air Room Air 01/06/24 20:01 01/06/24 20:30 01/06/24 21:00 Temperature Temperature Source Pulse Rate 94 88 94 Respiratory Rate 25 H 16 21 H Respiratory Effort Respiratory Depth Respiratory Pattern Blood Pressure 168/91 H 212/108 H Blood Pressure Mean 115 137 Pulse Ox Oxygen Delivery Method 01/06/24 21:15 01/06/24 21:30 01/06/24 21:45 Temperature Temperature Source Pulse Rate 93 Respiratory Rate 22 H 19 H Respiratory Effort Respiratory Depth Respiratory Pattern Blood Pressure 211/114 H 210/107 H 189/120 H Blood Pressure Mean 142 136 134 Pulse Ox Oxygen Delivery Method 01/06/24 22:00 01/06/24 22:45 Temperature 98 F Temperature Source Pulse Rate 90 90 Respiratory Rate 19 H 17 Respiratory Effort Respiratory Depth Respiratory Pattern Blood Pressure 203/105 H Blood Pressure Mean 137 Pulse Ox 98 Oxygen Delivery Method Positive well nourished and well developed General Appearance ED: well developed and NAD HEENT Reports moist mucous membranes atraumatic Eyes PERRL Neck supple and no JVD Resp Resp Narrative: Mild conversational dyspnea present. Diminished breath sounds with slight crackles noted at the left base Auscultation: Negative for rhonchi or wheezes Cardio regular rate and regular rhythm GI non-tender and non-distended Auscultation: normoactive bowel sounds Palpation: soft; Negative for tender Extremity normal to inspection General Extremety ED: Negative for edema or tenderness General Extremity: Negative for edema Neuro oriented x3 Sensorium / Orientation: alert Motor Exam: general weakness Psych mental status grossly normal Skin Lesions: no lesions MDM MDM MDM Narrative Medical decision making narrative: Patient's evaluated for worsening shortness of breath as well as some generalized weakness. Patient is a lot of chronic debilities. He is really coming in for placement. He is requesting to go to [facility]. Will evaluate him for further acute metabolic, infectious or cardiac process. Differentials are broad including debility, FLORY, decompensated heart failure, respiratory infection, urinary tract infection, electrolyte derangement. Workup shows a normal CBC he does have a mild left shift. CMP shows a chronic hyponatremia the sodium 132. His bicarb and anion gap are normal however his glucose is elevated at 450. High sensitive troponin is at his baseline at 52. His BNP is normal at 51. Urinalysis not consistent with infection. Chest x-ray viewed by myself as well as radiology does not show any acute process. COVID swab is positive. This likely explains his increased weakness and shortness of breath. Patient is given 10 units of insulin in the emergency room for his hyperglycemia. Will defer giving him IV fluids at this time as he appears euvolemic and is actually hypertensive and has a history of heart failure. Patient is quite hypertensive in the ER and is given 10 mg of IV labetalol. Will discuss with admitting physician, Dr. Dunbar. Lab Data Attestation: I reviewed the patient's lab results. Labs: Laboratory Results - last 24 hr 01/06/24 01/06/24 20:00 21:45 WBC 8.9 RBC 5.41 Hgb 14.6 Hct 46.4 MCV 85.8 MCH 27.0 MCHC 31.5 L RDW Std Deviation 46.0 H RDW Coeff of Jr 14.7 H Plt Count 188 MPV 11.7 Immature Gran % (Auto) 1.600 H Neut % (Auto) 77.6 H Lymph % (Auto) 11.0 L [place] % (Auto) 6.2 Eos % (Auto) 2.7 Baso % (Auto) 0.9 Absolute Neuts (auto) 7.0 Absolute Lymphs (auto) 0.98 Nucleated RBC % 0 Sodium 132 L Potassium 4.1 Chloride 97 L Carbon Dioxide 25.0 Anion Gap 10 BUN 44 H Creatinine 1.82 H Estim Creat Clear Calc 48.16 Est GFR (MDRD) Af Amer 48 L Est GFR (MDRD) Non-Af 40 L BUN/Creatinine Ratio 24.2 H Glucose 450 H Calcium 9.0 Total Bilirubin 1.00 AST 21 ALT 35 Alkaline Phosphatase 142 H Troponin I High Sens 52 B-Natriuretic Peptide 51.1 Total Protein 6.8 Albumin 3.1 L Globulin 3.7 Albumin/Globulin Ratio 0.8 L Urine Color Yellow Urine Clarity Clear Urine pH 5.0 Ur Specific [place] 1.010 Urine Protein 100 H Urine Glucose (UA) 1000 H Urine Ketones Negative Urine Occult Blood 50 H Urine Nitrite Negative Urine Bilirubin Negative Urine Urobilinogen Normal Ur Leukocyte Esterase Negative Urine RBC 0 SEEN Urine WBC 0-5 SEEN Ur Squamous Epith Cells 0 SEEN Ur Transition Epith Cell 0-5 SEEN Urine Bacteria 0 SEEN Urine Mucus 0 SEEN Radiography Chest X-Ray - ED: 2 View, Read by ED Physician and Read by Radiologist Diagnostic Testing: Clinical Impression(s) from Imaging Studies Chest X-Ray 01/06/24 21:50 IMPRESSION: No definite acute or significant abnormality seen. Electronically Signed: Keny Thomas MD at 22:18 EDT , Rhythm Strip Rhythm Strip: Sinus Rhythm Rate: 92 Ectopy: None EKG Initial EKG: Attestation: I personally reviewed and interpreted this EKG as follows: Interpretation: Sinus Rhythm Comments: Normal sinus rhythm at a rate of 92 bpm Normal axis Normal intervals Normal ST segments Voltage criteria for LVH Management Discussion w/another healthcare provider: Hospitalist Discharge Plan Dx/Rx/DC Orders Clinical Impression: COVID-19 virus infection, Debility, Essential hypertension, Generalized weakness, Hyperglycemia due to diabetes mellitus Disposition Disposition: [facility]
[2024-01-06 21:49] LABS: Absolute Lymphocyte Count 0.98 X10^3/uL (0.83-4.51); Basophil# 0.08 X10^3/uL; Basophil% 0.9 % (0-1); Eosinophil# 0.24 X10^3/uL; Eosinophils% 2.7 % (0-5); Hematocrit 46.4 % (40-54); Hemoglobin 14.6 g/dL (13.0-16.5); Lymphocyte # 0.98 X10^3/ul (0.83-4.51); Mean Corp Hgb Conc 31.5 g/dL (32-36); Mean Corpuscular Volume 85.8 fL (80-94); Mean Platelet Vol. 11.7 fl (6.2-12.0); Monocyte# 0.55 X10^3/uL; Monocyte% 6.2 % (0-10); NRBC Flagged by Analyzer 0 % (0-5); Neutrophil # 6.95 X10^3/uL (2.7-7.7); Neutrophil % 77.6 % (47-70); Platelet Count 188 K/mm3 (150-450); RBC Distribution Width CV 14.7 % (11.6-14.6); Red Blood Count 5.41 M/mm3 (4.6-6.2); White Blood Count 8.9 K/mm3 (4.4-11.0)
--- NOTE | 2024-01-06 21:50 | RAD_ITS ---
STUDY: X-RAY CHEST REASON FOR EXAM: Male, 63 years old. sob TECHNIQUE: Frontal and lateral views of the chest. COMPARISON: 09/15/2023. FINDINGS: The lungs are clear and expanded. There is no demonstrated pleural abnormality. Normal size heart. There has been previous CABG. Normal mediastinum and ella. Normal visualized pulmonary arteries. Normal visualized aortic arch and descending thoracic aorta. Normal visualized thoracic spine. Normal visualized ribs, clavicles, and shoulders. There is no demonstrated abnormality of the visualized soft tissue structures of the upper abdomen. RAD/Chest PA and Lateral IMPRESSION: No definite acute or significant abnormality seen. Electronically Signed: Keny Thomas MD at 22:18 EDT ,
[2024-01-06 21:53] LABS: Bacteria 0 SEEN /hpf (None Seen); Mucous, Urine 0 SEEN /hpf (<or=2+); Red Blood Cells-Urine 0 SEEN /hpf (0-5); Squamous Epithelial Cells - UA 0 SEEN /hpf (0-5)
[2024-01-06 21:57] LABS: Color, Urine Yellow (Yellow); Glucose, Dipstick 1000 mg/dl (Normal); Ketone-Dipstick Negative (Negative); Leukocyte Esterase-Dipstick Negative /ul (Negative); Nitrite-Dipstick Negative (Negative); Occult Blood-Urine 50 /ul (Negative); Protein-Dipstick 100 mg/dl (Negative); Urine Bilirubin Dipstick Negative (Negative); Urine Clarity Clear (Clear); Urine Urobilinogen Normal (Normal)
[2024-01-06 22:05] LABS: Transitional Epithelial - Ur 0-5 SEEN /hpf (0-5); White Blood Cells 0-5 SEEN /hpf (0-5)
[2024-01-06 22:10] LABS: BNP,B-Type NATRIURETIC PEPTIDE 51.1 pg/mL (0-100)
[2024-01-06 22:12] LABS: ALB/GLOB Ratio 0.8 RATIO (0.9-2.4); AST(SGOT) 21 U/L (15-37); Alanine Aminotransfer ALT/SGPT 35 U/L (16-61); Albumin, Serum 3.1 g/dL (3.2-5.0); Alkaline Phosphatase 142 U/L (45-117); Anion Gap 10 (5-15); BUN 44 mg/dL (7-18); BUN/Creat Ratio 24.2 RATIO (10-20); Chloride 97 mmol/L (98-107); Creatinine, Serum 1.82 mg/dL (0.70-1.30); EST Glomerular Filtration Rate 40 mL/min (>60); Est Glom Filt Rate - Afr Amer 48 mL/min (>60); Estimated Creatinine Clearance 48.16 ml/min; Globulin 3.7 g/dL (2.2-4.2); Glucose 450 mg/dL (74-106); Potassium 4.1 mmol/L (3.5-5.1); Protein, Total 6.8 g/dL (6.4-8.2); Sodium Level 132 mmol/L (136-145); Troponin-I HS 52 pg/mL (3.0-78.0)
[2024-01-06] MEDS: Insulin Lispro 100 UNIT/ML INSULN.PEN 10 UNIT SC (22:42)
[2024-01-06] MEDS: Labetalol (Prefilled) 20 MG/4 ML 10 MG IV (23:04)
--- NOTE | 2024-01-06 23:19 | PCM.HP.STD ---
[facility] - General General Date of Admission: 01/06/24 Date of Service: 01/06/24 Chief Complaint: Generalized Weakness, RITCHIE and Sweats. HPI Narrative NELSY MUNOZ, is a 63 M with a past medical history of essential hypertension, hyperlipidemia, obesity; with BMI of 34 this admission, DM-2; of unknown control, history of STEMI; s/p stent (2018), CAD; s/p CABG x 4 (2019), history of ischemic cardiomyopathy, history of Systolic CHF, history of syncope, history of CVA, CKD; stage III, peripheral nerve injury, chronic instability of Left knee, history of umbilical hernia repair, history of colon polyp, GERD, depression with anxiety, OA; with history of lumbar fusion and chronic debility; with patient primarily mobilizing in a wheelchair at home with increasing difficulty using his small bathroom with his no longer able to effectively care for him at home who presents to [facility] ER complaining of generalized weakness, RITCHIE and sweats. Mr. Munoz reports his symptoms began approximately one week prior to admission with worsening RITCHIE that caused him to fall at home this evening with his thankfully able to catch him before he fell and sustained a serious injury. He also admits to increased sweatiness and dizziness that are made worse with exertion. He also admits to chest pain that is generalized and made worse with deep breathing and movement. He is also concerned because his blood sugars have been consistently elevated in the ~360 mg/dL range in spite of taking his medications as prescribed. He denies recent steroid use, fever, chills, nausea, vomiting, diarrhea or constipation. In the ER his PCR assay returned positive for COVID-19 complicated by Dehydration; evidenced by BUN/creatinine ratio of 24.1 present on admission with Severe Hyperglycemia of 450 mg/dL present on admission all culminating in Generalized Weakness with Ambulatory Dysfunction with patient's no longer able to care for him effectively at home and he wants to transition to [facility] in [place], [place] if possible. He was then admitted to the general medical floor for ongoing care for a stay that is expected to extend beyond 2 midnights. [facility] Medical History Chest pain Debility Generalized weakness Depression CKD (chronic kidney disease) stage 3, GFR 30-59 ml/min 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 Obesity Polyp of colon Systolic CHF GERD (gastroesophageal reflux disease) Ischemic cardiomyopathy Essential hypertension Hyperlipidemia Arteriosclerosis of coronary artery in patient with history of myocardial infarction STEMI (ST elevation myocardial infarction) (03/05/19) Type 2 diabetes mellitus CVA (cerebral vascular accident) Syncope and collapse Bradycardia Syncope Anxiety Noncompliance with diabetes treatment Back pain FLORY (acute kidney injury) Nonketotic hyperglycinemia Hematochezia Home Medications ?Medication ?Instructions ?Recorded ?Last Taken ?Type aspirin 81 mg chewable tablet 81 mg PO DAILY heart health 03/10/19 11/16/22 History pantoprazole 40 mg tablet,delayed 40 mg PO DAILY acid reflux 03/10/19 11/16/22 History release insulin glargine 100 unit/mL (3 40 units subcut BID diabetes 03/20/19 11/16/22 History mL) subcutaneous pen clopidogrel 75 mg tablet 75 mg PO DAILY antiplatelet 08/08/19 11/16/22 History magnesium oxide 400 mg PO BID supplement 08/08/19 11/16/22 History cholecalciferol (vitamin D3) 50 50 mcg PO DAILY supplement 09/27/19 11/16/22 History mcg (2,000 unit) tablet atorvastatin 80 mg tablet 80 mg PO QHS cholesterol 11/26/19 11/16/22 History insulin lispro 200 unit/mL (3 mL) See Protocol subcut TIDCM diabetes 09/12/20 11/16/22 History subcutaneous pen (Humalog KwikPen U-200 Insulin) nitroglycerin 0.4 mg sublingual 0.4 mg sublingual Q5M PRN Chest 09/12/20 Unknown History tablet Pain carvedilol 3.125 mg tablet 3.125 mg PO BID heart 11/17/22 11/16/22 History empagliflozin 10 mg tablet 10 mg PO DAILY diabetes 11/17/22 11/16/22 History (Jardiance) ondansetron 4 mg disintegrating 4 mg PO Q8H PRN PRN Nausea #10 tabs 09/13/23 Unknown Rx tablet duloxetine 60 mg capsule,delayed 120 mg PO DAILY depression 11/23/23 Unknown History release (Cymbalta) hydrochlorothiazide 25 mg tablet 25 mg PO DAILY 11/23/23 Unknown History diazepam 5 mg tablet 5 mg PO DAILY PRN tremors 01/07/24 Unknown History Allergy/AdvReac Type Severity Reaction Status Date / Time etodolac Allergy Unknown Unknown Verified 01/06/24 19:54 nifedipine (From Adalat) Allergy Unknown Verified 01/06/24 19:54 Family History Father Heart disease Son Kidney disease Surgical History Hx of CABG History of coronary artery stent placement S/P coronary artery bypass graft x 4 (~08/03/19) Stented coronary artery (03/06/19) History of umbilical hernia repair History of back surgery History of lumbar fusion Social History household members: spouse Smoking Status: Current some day smoker tobacco type: pipe alcohol intake: never substance use type: does not use caffeine: No ROS ROS Narrative Review of Systems: Constitutional: Patient admits to fatigue, generalized weakness and sweat but he denies fever or chills. Eyes: Patient denies changes in vision or discharge from eyes. ENT: Patient denies runny nose, sore throat or ear pain. Resp: Patient admits to cough and RITCHIE. CV: Patient admits to chest discomfort but he denies palpitations or heart racing. GI: Patient admits to generalized abdominal pain but he denies nausea, vomiting, diarrhea or constipation. : Patient admits to incomplete bladder emptying but he denies dysuria or hematuria. MSK: Patient denies arthralgias or myalgias. Skin: Patient denies rash, wound, abscess or jaundice. Psych: Patient denies symptoms of uncontrolled depression or anxiety. Neuro: Patient admits to increased generalized weakness and paresthesias but he denies focal neurologic weakness. Allergy: Patient denies lip swelling, tongue swelling or urticaria. Hematology: Patient denies easy bleeding or easy bruisability. Endocrinology: Patient admits to polyuria with blood glucose of 450 mg/dL present on admission. 14 point ROS otherwise negative except for positives noted above in HPI. Vital Signs Vital Signs Vital Signs: 01/06/24 19:47 01/06/24 19:53 01/06/24 19:55 Temperature 98.2 F Temperature Source Oral Pulse Rate 97 Respiratory Rate 18 Respiratory Effort Normal Normal Non-Labored Respiratory Depth Normal Respiratory Pattern Normal Blood Pressure 177/105 H Blood Pressure Mean 129 Pulse Ox 98 Oxygen Delivery Method Room Air Room Air 01/06/24 20:01 01/06/24 20:30 01/06/24 21:00 Temperature Temperature Source Pulse Rate 94 88 94 Respiratory Rate 25 H 16 21 H Respiratory Effort Respiratory Depth Respiratory Pattern Blood Pressure 168/91 H 212/108 H Blood Pressure Mean 115 137 Pulse Ox Oxygen Delivery Method 01/06/24 21:15 01/06/24 21:30 01/06/24 21:45 Temperature Temperature Source Pulse Rate 93 Respiratory Rate 22 H 19 H Respiratory Effort Respiratory Depth Respiratory Pattern Blood Pressure 211/114 H 210/107 H 189/120 H Blood Pressure Mean 142 136 134 Pulse Ox Oxygen Delivery Method 01/06/24 22:00 01/06/24 22:45 Temperature 98 F Temperature Source Pulse Rate 90 90 Respiratory Rate 19 H 17 Respiratory Effort Respiratory Depth Respiratory Pattern Blood Pressure 203/105 H Blood Pressure Mean 137 Pulse Ox 98 Oxygen Delivery Method Weight Weight: 229 lb 15.074 oz Body Mass Index (BMI) 33.9 Results Lab / Micro Data 01/06/24 20:00 01/06/24 20:00 Labs: Laboratory Results - last 24 hr 01/06/24 20:00: WBC 8.9, RBC 5.41, Hgb 14.6, Hct 46.4, MCV 85.8, MCH 27.0, MCHC 31.5 L, RDW Std Deviation 46.0 H, RDW Coeff of Jr 14.7 H, Plt Count 188, MPV 11.7, Immature Gran % (Auto) 1.600 H, Neut % (Auto) 77.6 H, Lymph % (Auto) 11.0 L, [place] % (Auto) 6.2, Eos % (Auto) 2.7, Baso % (Auto) 0.9, Absolute Neuts (auto) 7.0, Absolute Lymphs (auto) 0.98, Nucleated RBC % 0, Sodium 132 L, Potassium 4.1, Chloride 97 L, Carbon Dioxide 25.0, Anion Gap 10, BUN 44 H, Creatinine 1.82 H, Estim Creat Clear Calc 48.16, Est GFR (MDRD) Af Amer 48 L, Est GFR (MDRD) Non-Af 40 L, BUN/Creatinine Ratio 24.2 H, Glucose 450 H, Calcium 9.0, Total Bilirubin 1.00, AST 21, ALT 35, Alkaline Phosphatase 142 H, Troponin I High Sens 52, B-Natriuretic Peptide 51.1, Total Protein 6.8, Albumin 3.1 L, Globulin 3.7, Albumin/Globulin Ratio 0.8 L 01/06/24 21:45: Urine Color Yellow, Urine Clarity Clear, Urine pH 5.0, Ur Specific [place] 1.010, Urine Protein 100 H, Urine Glucose (UA) 1000 H, Urine Ketones Negative, Urine Occult Blood 50 H, Urine Nitrite Negative, Urine Bilirubin Negative, Urine Urobilinogen Normal, Ur Leukocyte Esterase Negative, Urine RBC 0 SEEN, Urine WBC 0-5 SEEN, Ur Squamous Epith Cells 0 SEEN, Ur Transition Epith Cell 0-5 SEEN, Urine Bacteria 0 SEEN, Urine Mucus 0 SEEN Micro: Microbiology 01/06/24 21:45 Mucosa - Nose SARS-CoV-2, Influenza & RSV (PCR) - Final Rhythm Strip Rhythm Strip: Sinus Rhythm Rate: 92 Ectopy: None Imaging Radiology Impression Chest X-Ray 01/06/24 21:50 IMPRESSION: No definite acute or significant abnormality seen. Electronically Signed: Keny Thomas MD at 22:18 EDT , Assessment & Plan Assessment/Plan (1) COVID-19 virus infection: (2) Dehydration: (3) Hyperglycemia due to diabetes mellitus: (4) Uncontrolled hypertension: (5) Generalized weakness: (6) Ambulatory dysfunction: (7) Obesity (BMI 30.0-34.9): PLAN: Plan 1. PCR assay for COVID-19 + - Admit to general medical floor under contact and droplet precautions. Give empiric Doxycycline but Decadron with hyperglycemia present on admission . We will also give vitamin D3, vitamin C and Zinc to boost immunity and speed recovery. Give Tylenol prn for [id number] (level 1-5/10) pain or fever. Give Morphine IV prn for severe (level 6-10/10) pain. 2. Dehydration; evidenced by BUN creatinine ratio of 24.2 present on admission in the setting of known CKD; stage III complicating #1 - Aggressively volume resuscitate and recheck renal indices in AM to ensure improvement. 3. DM-2; uncontrolled with Severe Hyperglycemia of 450 mg/dL present on admission compounding #1 & #2 - Give Long-acting and SSI to aim to keep blood glucose in the ~180 mg/dL range. ADA diet with FBS q. AC/HS. Check HgbA1c to objectively evaluate quality of diabetic control. 4. Uncontrolled Hypertension of 203/105 mmHg present on admission adding to the disease burden of #1 - #3 - Continue home regimen plus give prn IV Hydralazine for systolic blood pressure > 160 mmHg. 5. Generalized Weakness with Ambulatory Dysfunction with peripheral nerve injury and chronic instability of Left knee and OA; with history of lumbar fusion and chronic debility; with patient primarily mobilizing in a wheelchair at home causing his no longer able to care for patient at home precipitated by #1 - #4 - PT/OT and Case Management to consult and treat for further recommendations regarding ECF placement with help appreciated in advance. 6. Obesity; with BMI of 34 this admission adding to the medical complexity of #1 - #5 - Weight loss will be recommended. Check TSH. This complicates his case and may hamper recovery. 7. Hyperlipidemia - Hold statin in case his weakness is being exacerbated by this agent. 8. History of STEMI; s/p stent (2019) - Noted. 9. CAD; s/p CABG x 4 (2019) - Noted. 10. History of ischemic cardiomyopathy - Noted. 11. History of Systolic CHF - Stable with no signs of volume overload present on admission. 12. History of syncope - Noted. 13. History of CVA - Noted. 14. History of colon polyp - Noted. 15. GERD - Continue PPI as previous. 16. Depression with anxiety - Resume home regimen as before. 17. History of umbilical hernia repair - Noted. 18. DVT prophylaxis - Lovenox 40 mg sq daily plus SCD's. Total time: Approximately 75 minutes. Charges/Coding Visit Charges Inpatient E&M: 64600 Init Hosp L3
[2024-01-07] VITALS (14 sets, daily range): BP systolic 116–177; BP diastolic 62–103; PULSE 71–85; RESP 16–22; TEMP 36.4–36.9; O2SAT 94–96; BMI 32.9
[2024-01-07] MEDS: 0.9% Normal Saline (1000mL) 1,000 ML 50 ML IV (00:34)
[2024-01-07] MEDS: Doxycycline 100 MG CAPSULE PO ×2 (00:39→09:57)
[2024-01-07] MEDS: MELATONIN 3 MG TABLET 6 MG PO ×2 (00:39→22:56)
[2024-01-07] MEDS: Temazepam 15 MG Capsule 30 MG PO (02:41)
[2024-01-07 06:12] LABS: Absolute Lymphocyte Count 1.47 X10^3/uL (0.83-4.51); Absolute Neutrophil Count 7.7 X10^3/uL (2.0-7.7); Basophil# 0.05 X10^3/uL; Basophil% 0.5 % (0-1); Eosinophil# 0.33 X10^3/uL; Eosinophils% 3.1 % (0-5); Hematocrit 42.7 % (40-54); Hemoglobin 14.2 g/dL (13.0-16.5); Lymphocyte # 1.47 X10^3/ul (0.83-4.51); Lymphocyte % 13.7 % (19-41); Mean Corp Hgb Conc 33.3 g/dL (32-36); Mean Corpuscular Volume 84.2 fL (80-94); Monocyte# 1.02 X10^3/uL; Monocyte% 9.5 % (0-10); NRBC Flagged by Analyzer 0 % (0-5); Neutrophil % 71.9 % (47-70); Platelet Count 153 K/mm3 (150-450); RBC Distribution Width CV 14.6 % (11.6-14.6); RBC Distribution Width SD 43.8 fl (35.1-43.9); Red Blood Count 5.07 M/mm3 (4.6-6.2); White Blood Count 10.7 K/mm3 (4.4-11.0)
[2024-01-07 06:31] LABS: Bedside Glucose 108 mg/dL (74-106)
[2024-01-07 07:17] LABS: ALB/GLOB Ratio 0.8 RATIO (0.9-2.4); AST(SGOT) 16 U/L (15-37); Alanine Aminotransfer ALT/SGPT 26 U/L (16-61); Albumin, Serum 2.6 g/dL (3.2-5.0); Alkaline Phosphatase 115 U/L (45-117); Anion Gap 6 (5-15); BUN 38 mg/dL (7-18); BUN/Creat Ratio 25.9 RATIO (10-20); Calcium,Total 8.5 mg/dL (8.5-10.1); Chloride 106 mmol/L (98-107); Cholesterol 156 mg/dL (200); Creatinine, Serum 1.47 mg/dL (0.70-1.30); EST Glomerular Filtration Rate 51 mL/min (>60); Est Glom Filt Rate - Afr Amer 62 mL/min (>60); Estimated Creatinine Clearance 58.74 ml/min; Globulin 3.2 g/dL (2.2-4.2); Glucose 104 mg/dL (74-106); High Density Lipoprotein 46 mg/dL; Magnesium 2.1 mg/dL (1.6-2.6); Phosphorus 4.1 mg/dL (2.5-4.9); Potassium 3.6 mmol/L (3.5-5.1); Protein, Total 5.8 g/dL (6.4-8.2); Sodium Level 137 mmol/L (136-145); Triglycerides 191 mg/dL; Very Low Density Lipoprotein 38 mg/dL (5-40)
[2024-01-07 08:33] LABS: Hemoglobin A1c 8.2 % (3.8-5.6)
--- NOTE | 2024-01-07 09:27 | CASEMGMT ---
Discharge Planning A list of?SNF providers including quality and resource use data and consistent with the patient's preferred geographic region, medical needs, and insurance network was created in [employer] Guide.? This list was provided to the SW. Chelsea Akhtar Discharge Planning Asst.
[2024-01-07] MEDS: Enoxaparin 40 MG/0.4 ML Syringe SC (09:56)
[2024-01-07] MEDS: Zinc Sulfate 50 mg zinc (220 mg) ORAL capsule PO (09:56)
[2024-01-07] MEDS: Clopidogrel Bisulfate 75 MG Tablet PO (09:57)
[2024-01-07] MEDS: Carvedilol 3.125 MG TABLET PO ×2 (09:57→16:43)
[2024-01-07] MEDS: Pantoprazole Sodium 40 MG Tablet PO (09:57)
[2024-01-07] MEDS: Cholecalciferol (VIT D3) 25 MCG TABLET (1,000 UNITS) 50 MCG PO (09:57)
[2024-01-07] MEDS: Magnesium Chloride 64 MG Delay Rel.Tablet 128 MG PO ×2 (09:57→22:56)
[2024-01-07] MEDS: Aspirin 81 MG TAB.CHEW PO (09:57)
[2024-01-07] MEDS: DULoxetine Hcl 60 MG Capsule 120 MG PO (09:58)
[2024-01-07] MEDS: hydroCHLOROthiazide 25 MG Tablet PO (09:58)
[2024-01-07] MEDS: Insulin Glargine-YFGN 100 UNIT/ML Pen 40 UNIT SC ×2 (09:59→22:58)
[2024-01-07] MEDS: Ascorbic Acid 500 MG Tablet 1000 MG PO ×2 (10:00→16:43)
[2024-01-07] MEDS: Insulin Lispro 100 UNIT/ML INSULN.PEN SC ×3 (12:21→22:59)
[2024-01-07 12:43] LABS: Bedside Glucose 233 mg/dL (74-106)
--- NOTE | 2024-01-07 14:23 | CASEMGMT ---
Social Work- SW met with pt to complete assessment and discuss preferences at d/c. PCP: Mike Ojeda Pharmacy: [facility] Insurance: Estela MICHEL Living Will/HPOA: none LNOK: Karen, Living Arrangements: [place] an old farmhouse Transportation: Pt - pt hasn't driven in 5 years. Pt uncertain that pt could transfer to car. DME/HHC: has ramp into home. Has a lift chair. Has a tub bench Plan: Pt and feel that living at home is not an option at pt current level of function. Pt has not been outdoors for 5 months. Pt showers every 5 weeks. 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 A list of SNF providers including quality and resource use data and consistent with the patient?s preferred geographic region, medical needs, and insurance network were provided from the CarePort Guide. Pt chose [facility] in [place], as he has been there before and had a good experience. SW referred pt to [facility] to discuss LTC. AVANI Vickers
--- NOTE | 2024-01-07 14:42 | CASEMGMT ---
Addendum entered by Chelsea Akhtar 01/10/24 09:59: [facility] has declined. Chelsea Akhtar DC Planning Asst. Addendum entered by Chelsea Akhtar 01/10/24 09:44: Msg sent on Careport requesting status of referral. Chelsea Akhtar DC Planning Asst. Original Note: Discharge Planning Referral sent via [facility]Port to [facility]. Chelsea Akhtar DC Planning Asst.
--- NOTE | 2024-01-07 15:46 | CASEMGMT ---
Social Work- From [facility]: I was able to get a hold of Karen. Unfortunately, at this time, he will not qualify for LTC Medicaid.? They have around $20,000 in a savings account, and a 401k value at $17,000.?I informed her of needing to do a spend down in order to qualify for Medicaid.? AVANI Vickers
[2024-01-07 17:04] LABS: Bedside Glucose 222 mg/dL (74-106)
--- NOTE | 2024-01-07 19:22 | PCM.PN.HOSP ---
Reason for Visit Reason for Visit: Weakness/shortness of breath Subjective Subjective Patient states weakness is biggest problem. He states he really does not feel short of breath at this time. He was not even aware that he had COVID but he did indicate he had some worsening shortness of breath with exertion over the last month. He is wheelchair-bound but does help transfer however this has been difficult for him lately and his is not able to help him on an extensive basis. They have been contemplating placement with him however ultimately he would like to stay at home if he gets stronger. He is willing to go to a facility at discharge. Objective Data Objective Data Vital Signs: Vital Signs Temp Pulse Resp BP Pulse Ox O2 Del Method 97.5 F L 78 18 169/89 H 96 Room Air 01/07/24 16:41 01/07/24 16:41 01/07/24 18:00 01/07/24 16:41 01/07/24 16:41 01/07/24 16:41 Oxygen Delivery Method Room Air Weight: 101.2 kg Body Mass Index (BMI) 32.9 Intake & Output: Intake and Output for Last 24 Hours 01/05/24 01/06/24 01/07/24 23:59 23:59 23:59 Intake Total 2353.33 / 2353.33 Output Total 1350 / 1350 Balance 1003.33 / 1003.33 Lab / Micro Data 01/07/24 06:04 01/07/24 06:04 Labs: Laboratory Results - last 24 hr 01/06/24 20:00: WBC 8.9, RBC 5.41, Hgb 14.6, Hct 46.4, MCV 85.8, MCH 27.0, MCHC 31.5 L, RDW Std Deviation 46.0 H, RDW Coeff of Jr 14.7 H, Plt Count 188, MPV 11.7, Immature Gran % (Auto) 1.600 H, Neut % (Auto) 77.6 H, Lymph % (Auto) 11.0 L, [place] % (Auto) 6.2, Eos % (Auto) 2.7, Baso % (Auto) 0.9, Absolute Neuts (auto) 7.0, Absolute Lymphs (auto) 0.98, Nucleated RBC % 0, Sodium 132 L, Potassium 4.1, Chloride 97 L, Carbon Dioxide 25.0, Anion Gap 10, BUN 44 H, Creatinine 1.82 H, Estim Creat Clear Calc 48.16, Est GFR (MDRD) Af Amer 48 L, Est GFR (MDRD) Non-Af 40 L, BUN/Creatinine Ratio 24.2 H, Glucose 450 H, Calcium 9.0, Total Bilirubin 1.00, AST 21, ALT 35, Alkaline Phosphatase 142 H, Troponin I High Sens 52, B-Natriuretic Peptide 51.1, Total Protein 6.8, Albumin 3.1 L, Globulin 3.7, Albumin/Globulin Ratio 0.8 L 01/06/24 21:45: Urine Color Yellow, Urine Clarity Clear, Urine pH 5.0, Ur Specific [place] 1.010, Urine Protein 100 H, Urine Glucose (UA) 1000 H, Urine Ketones Negative, Urine Occult Blood 50 H, Urine Nitrite Negative, Urine Bilirubin Negative, Urine Urobilinogen Normal, Ur Leukocyte Esterase Negative, Urine RBC 0 SEEN, Urine WBC 0-5 SEEN, Ur Squamous Epith Cells 0 SEEN, Ur Transition Epith Cell 0-5 SEEN, Urine Bacteria 0 SEEN, Urine Mucus 0 SEEN 01/07/24 06:04: WBC 10.7, RBC 5.07, Hgb 14.2, Hct 42.7, MCV 84.2, MCH 28.0, MCHC 33.3 D, RDW Std Deviation 43.8, RDW Coeff of Jr 14.6, Plt Count 153, MPV 11.0, Immature Gran % (Auto) 1.300 H, Neut % (Auto) 71.9 H, Lymph % (Auto) 13.7 L, [place] % (Auto) 9.5, Eos % (Auto) 3.1, Baso % (Auto) 0.5, Absolute Neuts (auto) 7.7, Absolute Lymphs (auto) 1.47, Nucleated RBC % 0, Sodium 137, Potassium 3.6, Chloride 106, Carbon Dioxide 25.0, Anion Gap 6, BUN 38 H, Creatinine 1.47 H, Estim Creat Clear Calc 58.74, Est GFR (MDRD) Af Amer 62, Est GFR (MDRD) Non-Af 51 L, BUN/Creatinine Ratio 25.9 H, Glucose 104, Hemoglobin A1c 8.2 H, Calcium 8.5, Phosphorus 4.1, Magnesium 2.1, Total Bilirubin 0.50, AST 16, ALT 26, Alkaline Phosphatase 115, Total Protein 5.8 L, Albumin 2.6 L, Globulin 3.2, Albumin/Globulin Ratio 0.8 L, Triglycerides 191, Cholesterol 156, LDL Cholesterol 72, VLDL Cholesterol 38, HDL Cholesterol 46, TSH 1.560 01/07/24 06:10: POC Glucose 108 H 01/07/24 12:19: POC Glucose 233 H 01/07/24 16:31: POC Glucose 222 H Micro: Microbiology 01/06/24 21:45 Mucosa - Nose SARS-CoV-2, Influenza & RSV (PCR) - Final SARS-CoV-2 (COVID 19 PCR) Radiography Diagnostic Testing: Radiology Impression Chest X-Ray 01/06/24 21:50 IMPRESSION: No definite acute or significant abnormality seen. Electronically Signed: Keny Thomas MD at 22:18 EDT , Rhythm Strip Rhythm Strip: Sinus Rhythm Rate: 92 Ectopy: None Physical Exam Const alert, oriented x3, no apparent distress and well nourished; Negative for average body habitus or healthy appearing Constitutional Narrative: Obese, upper middle-aged, white male, sitting up in bed, appears much older than stated, appears comfortable, on room air with no signs of shortness of breath, watching television, appears chronically ill HEENT head/scalp atraumatic and moist oral mucous membranes Head and Scalp: normocephalic Resp normal respiratory effort, no retractions, no use of accessory muscles and clear to auscultation bilaterally Auscultation: Negative for rales, rhonchi or wheezes Cardio regular rate, regular rhythm, S1 normal heart sound, S2 normal heart sound, no murmurs, no rub, no gallops and no clicks GI normal to inspection, nondistended, normoactive bowel sounds, soft to palpation and non-tender GI Narrative: Large protuberant abdomen, small umbilical hernia noted Extremity no clubbing, cyanosis or edema Neuro oriented x3 Speech: speech normal Psych affect normal Psych Narrative: Intermittently tearful throughout my interview with him mostly related to things surrounding his Assessment & Plan Assessment/Plan (1) COVID-19 virus infection: (2) Generalized weakness: (3) Ambulatory dysfunction: (4) Debility: PLAN: Plan Generalized weakness and debility -Acute on chronic secondary to his chronic medical issues with acute changes likely related to acute COVID-19 infection and overall progressive weakness related to disuse -PT/OT following -Would like placement at discharge -Patient has chosen [facility] in [place] and we are awaiting acceptance--> once accepted will need pre-CERT Acute COVID-19 infection -Patient is fairly asymptomatic -No need for Decadron or remdesivir -Continue supportive care Dehydration -Resolved CKD stage IIIb -Serum creatinine is at baseline -Discontinue IV fluids -Continue to monitor DM-2 -A1c-8.2 -Continue subcu basal insulin 40 units twice daily -Fasting blood sugars much improved -Continue to follow -Continue SSI -Accu-Cheks as ordered -Restart home Jardiance Chronic HFpEF/CAD/essential HTN/HPL -History of CABG x 4 in 2020 -Continue Jardiance -Continue aspirin -Continue atorvastatin -Continue carvedilol -Continue Plavix GERD -Continue PPI History of stroke -Continue aspirin and Plavix Anxiety/depression -Continue Cymbalta Obesity -BMI is 32.9 -Recommend weight loss -complicates treatment, prognosis, outcomes DVT prophylaxis -Continue subcu Lovenox Charges/Coding Visit Charges Inpatient E&M: 63049 Subs Hosp L2
[2024-01-07] MEDS: Atorvastatin Calcium 80 MG Tablet PO (22:56)
[2024-01-07] MEDS: 0.9% Saline Lock 10 ML Syringe IV (23:13)
[2024-01-07] MEDS: hydrALAZINE 20 MG/ML Vial 10 MG IV (23:41)
[2024-01-07 23:49] LABS: Bedside Glucose 227 mg/dL (74-106)
[2024-01-08] VITALS (9 sets, daily range): BP systolic 139–184; BP diastolic 86–93; PULSE 76–87; RESP 16–20; TEMP 35.8–36.7; O2SAT 97–98; BMI 33.0
[2024-01-08 07:09] LABS: Phosphorus 3.8 mg/dL (2.5-4.9)
[2024-01-08 07:16] LABS: Bedside Glucose 122 mg/dL (74-106)
[2024-01-08] MEDS: Menthol/Lanolin/Calamine/Znox 113 GM Tube 1 APPLIC TOPICAL ×2 (08:51→21:01)
[2024-01-08] MEDS: Nystatin Powder 15gm Bottle 1 APPLIC TOPICAL ×2 (08:52→21:00)
[2024-01-08] MEDS: Enoxaparin 40 MG/0.4 ML Syringe SC (08:52)
[2024-01-08] MEDS: DULoxetine Hcl 60 MG Capsule 120 MG PO (08:52)
[2024-01-08] MEDS: Clopidogrel Bisulfate 75 MG Tablet PO (08:53)
[2024-01-08] MEDS: Aspirin 81 MG TAB.CHEW PO ×2 (08:53)
[2024-01-08] MEDS: Pantoprazole Sodium 40 MG Tablet PO (08:53)
[2024-01-08] MEDS: Cholecalciferol (VIT D3) 25 MCG TABLET (1,000 UNITS) 50 MCG PO (08:53)
[2024-01-08] MEDS: Magnesium Chloride 64 MG Delay Rel.Tablet 128 MG PO ×2 (08:53→21:02)
[2024-01-08] MEDS: Empagliflozin 10 MG Tablet PO (08:53)
[2024-01-08] MEDS: Carvedilol 3.125 MG TABLET PO ×2 (08:53→16:06)
[2024-01-08] MEDS: hydroCHLOROthiazide 25 MG Tablet PO (08:56)
[2024-01-08] MEDS: Insulin Glargine-YFGN 100 UNIT/ML Pen 40 UNIT SC ×2 (08:57→19:00)
[2024-01-08] MEDS: Insulin Lispro 100 UNIT/ML INSULN.PEN SC ×3 (11:20→21:06)
[2024-01-08 11:46] LABS: Bedside Glucose 201 mg/dL (74-106)
--- NOTE | 2024-01-08 14:08 | PCM.PN.HOSP ---
Reason for Visit Reason for Visit: Weakness Subjective Subjective No complaints. No issues overnight. Objective Data Objective Data Vital Signs: Vital Signs Temp Pulse Resp BP Pulse Ox O2 Del Method 98.1 F 81 18 155/93 H 98 Room Air 01/08/24 09:29 01/08/24 09:29 01/08/24 09:29 01/08/24 09:29 01/08/24 09:29 01/08/24 13:13 Oxygen Delivery Method Room Air Weight: 101.3 kg Body Mass Index (BMI) 33.0 Intake & Output: Intake and Output for Last 24 Hours 01/06/24 01/07/24 01/08/24 23:59 23:59 23:59 Intake Total 2353.33 / 2653.33 650 / 650 Output Total 2350 / 2350 700 / 700 Balance 3.33 / 303.33 -50 / -50 Lab / Micro Data 01/07/24 06:04 01/07/24 06:04 Labs: Laboratory Results - last 24 hr 01/07/24 16:31: POC Glucose 222 H 01/07/24 22:55: POC Glucose 227 H 01/08/24 06:00: Phosphorus 3.8, Magnesium 2.0 01/08/24 06:28: POC Glucose 122 H 01/08/24 11:19: POC Glucose 201 H Micro: Microbiology 01/06/24 21:45 Mucosa - Nose SARS-CoV-2, Influenza & RSV (PCR) - Final SARS-CoV-2 (COVID 19 PCR) Rhythm Strip Rhythm Strip: Sinus Rhythm Rate: 92 Ectopy: None Physical Exam Const alert, oriented x3, no apparent distress and well nourished; Negative for average body habitus or healthy appearing Constitutional Narrative: Obese, upper middle-aged, white male, sitting up in bed, appears much older than stated, appears comfortable, on room air with no signs of shortness of breath, watching television, appears chronically ill HEENT head/scalp atraumatic and moist oral mucous membranes Head and Scalp: normocephalic Resp normal respiratory effort, no retractions, no use of accessory muscles and clear to auscultation bilaterally Auscultation: Negative for rales, rhonchi or wheezes Cardio regular rate, regular rhythm, S1 normal heart sound, S2 normal heart sound, no murmurs, no rub, no gallops and no clicks GI normal to inspection, nondistended, normoactive bowel sounds, soft to palpation and non-tender GI Narrative: Large protuberant abdomen, small umbilical hernia noted Extremity no clubbing, cyanosis or edema Neuro oriented x3 Speech: speech normal Psych affect normal Psych Narrative: much less tearful today Assessment & Plan Assessment/Plan (1) COVID-19 virus infection: (2) Generalized weakness: (3) Ambulatory dysfunction: (4) Debility: PLAN: Plan Generalized weakness and debility -Acute on chronic secondary to his chronic medical issues with acute changes likely related to acute COVID-19 infection and overall progressive weakness related to disuse -PT/OT following -Would like placement at discharge -Patient has chosen [facility] in [place] and we are awaiting acceptance--> once accepted will need pre-CERT Acute COVID-19 infection -Patient is fairly asymptomatic -No need for Decadron or remdesivir -Continue supportive care Dehydration -Resolved CKD stage IIIb -Serum creatinine is at baseline -Discontinue IV fluids -Continue to monitor DM-2 -A1c-8.2 -Continue subcu basal insulin 40 units twice daily -Fasting blood sugars much improved -Continue to follow -Continue SSI -Accu-Cheks as ordered -Restart home Jardiance Chronic HFpEF/CAD/essential HTN/HPL -History of CABG x 4 in 2020 -Continue Jardiance -Continue aspirin -Continue atorvastatin -Continue carvedilol -Continue Plavix GERD -Continue PPI History of stroke -Continue aspirin and Plavix Anxiety/depression -Continue Cymbalta Obesity -BMI is 32.9 -Recommend weight loss -complicates treatment, prognosis, outcomes DVT prophylaxis -Continue subcu Lovenox Charges/Coding Visit Charges Inpatient E&M: 34393 Subs Hosp L2
[2024-01-08 16:33] LABS: Bedside Glucose 200 mg/dL (74-106)
--- NOTE | 2024-01-08 19:31 | NURSING ---
Pt used call light twice in 5 minutes requesting insulin, this RN went in a spoke to patient regarding insulin. pt states you and all these monkeys can shove this insulin up your ass, making me wait 5 minutes for insulin is criminal pt refused to listen to anything this RN had to say, pt request 2200 long acting insulin early stating he takes it at 7pm at home. Insulin given, when this RN walked out of the room pt still yelling about how all the staff is incompetent.
[2024-01-08] MEDS: Atorvastatin Calcium 80 MG Tablet PO (21:02)
[2024-01-08] MEDS: MELATONIN 3 MG TABLET 6 MG PO (21:02)
[2024-01-08 21:30] LABS: Bedside Glucose 241 mg/dL (74-106)
[2024-01-09] VITALS (13 sets, daily range): BP systolic 124–182; BP diastolic 68–94; PULSE 82–95; RESP 16–18; TEMP 36.2–36.9; O2SAT 93–98; BMI 33.5
[2024-01-09] MEDS: Acetaminophen 325 MG Tablet 650 MG PO (00:02)
[2024-01-09] MEDS: Ondansetron ODT 4 MG Tablet PO (00:11)
[2024-01-09] MEDS: hydrALAZINE 20 MG/ML Vial 10 MG IV ×2 (00:12→21:01)
[2024-01-09] MEDS: 0.9% Saline Lock 10 ML Syringe IV (00:14)
[2024-01-09 06:19] LABS: Bedside Glucose 114 mg/dL (74-106)
[2024-01-09] MEDS: Carvedilol 3.125 MG TABLET PO ×2 (06:20→16:59)
[2024-01-09] MEDS: Insulin Glargine-YFGN 100 UNIT/ML Pen 40 UNIT SC ×2 (08:50→20:41)
[2024-01-09] MEDS: hydroCHLOROthiazide 25 MG Tablet PO (08:51)
[2024-01-09] MEDS: Enoxaparin 40 MG/0.4 ML Syringe SC (08:51)
[2024-01-09] MEDS: Cholecalciferol (VIT D3) 25 MCG TABLET (1,000 UNITS) 50 MCG PO (08:52)
[2024-01-09] MEDS: Pantoprazole Sodium 40 MG Tablet PO (08:52)
[2024-01-09] MEDS: Clopidogrel Bisulfate 75 MG Tablet PO (08:52)
[2024-01-09] MEDS: Empagliflozin 10 MG Tablet PO (08:52)
[2024-01-09] MEDS: Magnesium Chloride 64 MG Delay Rel.Tablet 128 MG PO ×2 (08:52→20:35)
[2024-01-09] MEDS: Menthol/Lanolin/Calamine/Znox 113 GM Tube 1 APPLIC TOPICAL ×2 (08:52→21:01)
[2024-01-09] MEDS: DULoxetine Hcl 60 MG Capsule 120 MG PO (08:52)
[2024-01-09] MEDS: Nystatin Powder 15gm Bottle 1 APPLIC TOPICAL ×2 (08:53→21:01)
[2024-01-09] MEDS: Insulin Lispro 100 UNIT/ML INSULN.PEN SC ×3 (11:34→20:36)
[2024-01-09 11:53] LABS: Bedside Glucose 243 mg/dL (74-106)
--- NOTE | 2024-01-09 13:01 | PCM.PN.HOSP ---
Reason for Visit Reason for Visit: Weakness Subjective Subjective Patient frustrated that his prandial blood sugars are not well-controlled. It appears that we're doing okay with his fasting. I will go ahead and schedule insulin with meals and continue sliding scale. I did discuss with him that we did not want to start off too aggressively as diets tend to be different when people are hospitalized and sometimes during stress response blood sugars are higher as well. No other issues at this time. Objective Data Objective Data Vital Signs: Vital Signs Temp Pulse Resp BP Pulse Ox O2 Del Method 98.4 F 82 18 124/68 H 95 Room Air 01/09/24 11:41 01/09/24 11:41 01/09/24 11:41 01/09/24 11:41 01/09/24 11:41 01/09/24 11:41 Oxygen Delivery Method Room Air Weight: 102.8 kg Body Mass Index (BMI) 33.5 Intake & Output: Intake and Output for Last 24 Hours 01/07/24 01/08/24 01/09/24 23:59 23:59 23:59 Intake Total 2353.33 / 2653.33 1250 / 1250 700 / 700 Output Total 2350 / 2350 1900 / 1900 2100 / 2100 Balance 3.33 / 303.33 -650 / -650 -1400 / -1400 Lab / Micro Data 01/07/24 06:04 01/07/24 06:04 Labs: Laboratory Results - last 24 hr 01/08/24 16:04: POC Glucose 200 H 01/08/24 21:05: POC Glucose 241 H 01/09/24 05:54: POC Glucose 114 H 01/09/24 11:33: POC Glucose 243 H Micro: Microbiology 01/06/24 21:45 Mucosa - Nose SARS-CoV-2, Influenza & RSV (PCR) - Final SARS-CoV-2 (COVID 19 PCR) Rhythm Strip Rhythm Strip: Sinus Rhythm Rate: 92 Ectopy: None Physical Exam Const alert, oriented x3, no apparent distress and well nourished; Negative for average body habitus or healthy appearing Constitutional Narrative: Obese, upper middle-aged, white male, sitting up in a chair at the bedside, appears much older than stated, appears comfortable, on room air with no signs of shortness of breath, watching television, appears chronically ill HEENT head/scalp atraumatic and moist oral mucous membranes HEENT Narrative: Mallampati 3, no thrush Resp normal respiratory effort, no retractions, no use of accessory muscles and clear to auscultation bilaterally Auscultation: Negative for rales, rhonchi or wheezes Cardio regular rate, regular rhythm, S1 normal heart sound, S2 normal heart sound, no murmurs, no rub, no gallops and no clicks GI normal to inspection, nondistended, normoactive bowel sounds, soft to palpation and non-tender GI Narrative: Large protuberant abdomen Extremity no clubbing, cyanosis or edema Neuro oriented x3 Speech: speech normal Psych affect normal Psych Narrative: Mild agitation today. Onset Assessment & Plan Assessment/Plan (1) COVID-19 virus infection: (2) Generalized weakness: (3) Ambulatory dysfunction: (4) Debility: PLAN: Plan Generalized weakness and debility -Acute on chronic secondary to his chronic medical issues with acute changes likely related to acute COVID-19 infection and overall progressive weakness related to disuse -PT/OT following -Would like placement at discharge -Patient has chosen [facility] in [place] and we are awaiting acceptance--> once accepted will need pre-CERT Acute COVID-19 infection -Patient is fairly asymptomatic -No need for Decadron or remdesivir -Continue supportive care CKD stage IIIb -Serum creatinine is at baseline -Continue to monitor periodically DM-2 -A1c-8.2 -Continue subcu basal insulin 40 units twice daily -Fasting blood sugars much improved -Prandial insulin added today as blood sugars are elevated throughout the day with 10 units 3 times daily -Continue to follow -Continue SSI -Accu-Cheks as ordered -Continue home Jardiance Chronic HFpEF/CAD/essential HTN/HPL -History of CABG x 4 in 2020 -Continue Jardiance -Continue aspirin -Continue atorvastatin -Continue carvedilol -Continue Plavix GERD -Continue PPI History of stroke -Continue aspirin and Plavix Anxiety/depression -Continue Cymbalta Obesity -BMI is 33.5 -Recommend weight loss -complicates treatment, prognosis, outcomes DVT prophylaxis -Continue subcu Lovenox Disposition: -Referral has been made to [facility]. If accepted pre-CERT to be started and patient is medically stable for discharge and has been since 01/07/2024 Charges/Coding Visit Charges Inpatient E&M: 59567 Subs Hosp L2
[2024-01-09] MEDS: Insulin Lispro 100 UNIT/ML INSULN.PEN 10 UNIT SC (16:58)
[2024-01-09 17:21] LABS: Bedside Glucose 177 mg/dL (74-106)
[2024-01-09] MEDS: MELATONIN 3 MG TABLET 6 MG PO (20:35)
[2024-01-09] MEDS: Atorvastatin Calcium 80 MG Tablet PO (20:35)
[2024-01-09 23:36] LABS: Bedside Glucose 186 mg/dL (74-106)
[2024-01-10 03:00] VITALS: PULSE 89
[2024-01-10 05:32] VITALS: BP 159/95; PULSE 86; RESP 16; TEMP 36.2; O2SAT 95
[2024-01-10] MEDS: Acetaminophen 325 MG Tablet 650 MG PO (05:34)
[2024-01-10] MEDS: Carvedilol 3.125 MG TABLET PO (05:34)
[2024-01-10] MEDS: Ondansetron ODT 4 MG Tablet PO (05:44)
[2024-01-10 05:46] VITALS: O2SAT 95
[2024-01-10 06:00] VITALS: BMI 33.1
[2024-01-10 06:55] LABS: Hematocrit 45.7 % (40-54); Hemoglobin 14.8 g/dL (13.0-16.5); Mean Corp Hgb Conc 32.4 g/dL (32-36); Mean Corpuscular Hgb 27.3 pg (27.0-32.0); Mean Corpuscular Volume 84.3 fL (80-94); Mean Platelet Vol. 10.6 fl (6.2-12.0); Platelet Count 178 K/mm3 (150-450); RBC Distribution Width CV 14.8 % (11.6-14.6); RBC Distribution Width SD 45.1 fl (35.1-43.9); Red Blood Count 5.42 M/mm3 (4.6-6.2); White Blood Count 8.7 K/mm3 (4.4-11.0)
[2024-01-10 07:17] LABS: Anion Gap 8 (5-15); BUN 31 mg/dL (7-18); Calcium,Total 9.1 mg/dL (8.5-10.1); Chloride 104 mmol/L (98-107); Creatinine, Serum 1.63 mg/dL (0.70-1.30); EST Glomerular Filtration Rate 45 mL/min (>60); Est Glom Filt Rate - Afr Amer 55 mL/min (>60); Estimated Creatinine Clearance 53.16 ml/min; Glucose 130 mg/dL (74-106); Potassium 3.5 mmol/L (3.5-5.1); Sodium Level 140 mmol/L (136-145)
[2024-01-10 08:53] VITALS: BP 150/87; PULSE 80; RESP 18; TEMP 36.6; O2SAT 97
[2024-01-10] MEDS: Cholecalciferol (VIT D3) 25 MCG TABLET (1,000 UNITS) 50 MCG PO (08:55)
[2024-01-10] MEDS: Magnesium Chloride 64 MG Delay Rel.Tablet 128 MG PO (08:55)
[2024-01-10] MEDS: hydroCHLOROthiazide 25 MG Tablet PO (08:56)
[2024-01-10] MEDS: Clopidogrel Bisulfate 75 MG Tablet PO (08:56)
[2024-01-10] MEDS: Aspirin 81 MG TAB.CHEW PO (08:56)
[2024-01-10] MEDS: Pantoprazole Sodium 40 MG Tablet PO (08:56)
[2024-01-10] MEDS: Nystatin Powder 15gm Bottle 1 APPLIC TOPICAL (08:56)
[2024-01-10] MEDS: DULoxetine Hcl 60 MG Capsule 120 MG PO (08:56)
[2024-01-10] MEDS: Empagliflozin 10 MG Tablet PO (09:02)
[2024-01-10] MEDS: Enoxaparin 40 MG/0.4 ML Syringe SC (09:02)
[2024-01-10] MEDS: Menthol/Lanolin/Calamine/Znox 113 GM Tube 1 APPLIC TOPICAL (09:03)
[2024-01-10] MEDS: Insulin Lispro 100 UNIT/ML INSULN.PEN 10 UNIT SC ×2 (09:05→12:28)
[2024-01-10] MEDS: Insulin Glargine-YFGN 100 UNIT/ML Pen 40 UNIT SC (09:11)
--- NOTE | 2024-01-10 09:54 | CASEMGMT ---
Social Work- SW received word that [facility] does not have any beds. AVANI Vickers
--- NOTE | 2024-01-10 11:00 | DCINST_ITS ---
Discharge Instructions Diet Discharge Diet: Low fat / Low cholesterol, 1800 Calorie Control Diet and 2000 mg Sodium Diet Activity Discharge Activity: Return to Normal Activity Weight Bearing Status: Weight bearing as tolerated Dressing / Incision Call your doctor if you observe: Fever of 101 or Higher, Coldness, Increased Pain, Numbness or Tingling, Change in Color, Inability to urinate, Inability to have a bowel movement, Shortness of breath, Dizziness, Fainting spells, Swelling in the ankles, Chest pain, Prolonged hiccupping, Increased palpitations (irregular heartbeat) and Calf discomfort Follow Up Care When: IN 2 WEEKS Test Results: Test results from this visit will be discussed in further detail at your follow- up appointment, if applicable. Discharge Plan Admission Admit Date/Time: 01/06/24 23:47 Primary Reason for Your Visit: Generalized weakness Attending Provider: Cristofer Desouza Primary Care Provider: Chema Mckeon Consulting Providers: Faisla Whalen; Clara Whiteside Instructions Additional Instructions / Restrictions: Outpatient PT and OT Discharge Orders/Prescriptions Prescriptions: Continued duloxetine [Cymbalta] 60 mg capsule,delayed release(DR/EC) 120 mg PO DAILY cholecalciferol (vitamin D3) 50 mcg (2,000 unit) tablet 50 mcg PO DAILY hydrochlorothiazide 25 mg tablet 25 mg PO DAILY pantoprazole 40 MG tablet 40 mg PO DAILY aspirin 81 MG tablet,chewable 81 mg PO DAILY atorvastatin 80 MG tablet 80 mg PO QHS nitroglycerin 0.4 mg tablet, sublingual 0.4 mg sublingual Q5M PRN (Reason: Chest Pain) Patient Comments: Place 1 tablet under tongue as needed for Chest pain. max = 3 doses. If CP persists after 1st dose, call 911 Humalog KwikPen Insulin 200 unit/mL (3 mL) insulin pen See Protocol SUBCUT TIDCM Protocol: 6. Sliding Scale Insulin Custom Condition: mg/dl range Dose/Route: Number of Units Condition: 100-124 Dose/Route: 12 Condition: 125-149 Dose/Route: 14 Condition: 150-174 Dose/Route: 16 Condition: 175-199 Dose/Route: 18 Condition: 200-224 Dose/Route: 20 Condition: 225-249 Dose/Route: 22 Condition: 250-299 Dose/Route: 24 Protocol Text: Custom Sliding Scale call >299 Jardiance 10 mg tablet 10 mg PO DAILY carvedilol 3.125 mg tablet 3.125 mg PO BID ondansetron 4 mg tablet,disintegrating 4 mg PO Q8H PRN PRN (Reason: Nausea) Qty: 10 0RF diazepam 5 mg tablet 5 mg PO DAILY PRN (Reason: tremors) clopidogrel 75 mg tablet 75 mg PO DAILY magnesium oxide 400 mg magnesium capsule 400 mg PO BID Changed insulin glargine 100 UNIT/ML insulin pen 35 unit subcut BID 30 Days Qty: 0 0RF Rx Instructions: Hold if glucose less than 130 mg/dl Referrals / Follow Up: Chema Mckeon DO [Primary Care Provider] - Disposition Disposition (needs filled in before D/C Order can be placed): Home, Self Care
--- NOTE | 2024-01-10 11:11 | CASEMGMT ---
Addendum entered by Geno Mayen 01/10/24 12:21: Social Work- Pt states that she is agreeable to pt d/c home, as she understands that he is not cooperative with or agreeable to therapy or placement. Pt states that she will transport pt home. AVANI Vickers Original Note: Social Work- SW met with pt to advise that [facility] unable to accept. Pt reports that he wants to go home and already discussed this with . SW encouraged pt to work with PT on [facility] for transport, as pt is reporting he is able to get in and out of the car, but pt had reported that she had concerns last week. SW also requested with PT that they work on this. SW called Karen, , and left voicemail regarding d/c plans. AVANI Vickers
[2024-01-10] MEDS: Insulin Lispro 100 UNIT/ML INSULN.PEN SC (12:30)
--- NOTE | 2024-01-10 12:47 | CASEMGMT ---
SW updated that pt plans to dc home and does not want any HHC or services upon dc.
[2024-01-10 14:34] VITALS: BP 154/86; PULSE 87; RESP 18; TEMP 36.6; O2SAT 97
--- NOTE | 2024-01-10 14:53 | DS.PCM_ITS ---
Providers Date of Admission: 01/06/24 Date of Discharge: 01/10/24 Primary Care Physician: Dr. Chema Mckeon, DO Reason For Visit: COVID 19, DEHYRATION, SEVERE HYPERGLYCEMIA & Diagnosis Discharge Diagnosis (1) COVID-19 virus infection: Status: Acute Code(s): U07.1 - COVID-19 (2) Generalized weakness: Status: Acute Code(s): R53.1 - Weakness (3) Ambulatory dysfunction: Status: Acute Code(s): R26.2 - Difficulty in walking, not elsewhere classified (4) Debility: Status: Chronic Code(s): R53.81 - Other malaise Plan This is a 63-year-old gentleman admitted with feeling very weak that was causing difficulty or inability to transfer though he is wheelchair-bound for last 4 years after his stroke. Patient also COVID-positive but asymptomatic. 1. Generalized weakness and debility: Patient was evaluated by PT and OT. Patient declined for SNF. Social work and IR discussed with him that he is high risk for readmission but he wants to go to home. 2. Acute COVID-19 infection, asymptomatic. No need for Decadron or remdesivir 3. CKD stage IIIb: Serum creatinine on baseline. Patient on HCTZ continue 4. Diabetes mellitus type 2: A1c 8.2. Patient glucose 10 4 in the morning therefore insulin decreased to 35 units twice daily. Follow-up with PCP for optimal control of glucose. 5. Chronic HFpEF/CAD, hypertension and dyslipidemia: Patient had CABG four- vessel in 2020: His home medication of aspirin, Jardiance, atorvastatin, carvedilol and Plavix continued 6. History of a stroke on aspirin and Plavix. 7. Other comorbidities include GERD, obesity: BMI 33.5 kg/m?. Obesity grade 1 Discharge medication reconciliation done. Discharge follow-up instructions completed. Discharge process discussed with the patient and all questions were answered to patient's satisfaction. Follow with PCP in 1 to 2 weeks Total time spent, exact 35 minutes on discharge meds reconciliation, examination, coordination of care with nurses and ancillary staff, review of imaging and blood test and discussion with the patient on follow-up instructions. Medications at Discharge Home Medications aspirin 81 mg chewable tablet 81 mg PO DAILY heart health 03/10/19 pantoprazole 40 mg tablet,delayed release 40 mg PO DAILY acid reflux 03/10/19 clopidogrel 75 mg tablet 75 mg PO DAILY antiplatelet 08/08/19 magnesium oxide 400 mg PO BID supplement 08/08/19 cholecalciferol (vitamin D3) 50 mcg (2,000 unit) tablet 50 mcg PO DAILY supplement 09/27/19 atorvastatin 80 mg tablet 80 mg PO QHS cholesterol 11/26/19 insulin lispro 200 unit/mL (3 mL) subcutaneous pen (Humalog KwikPen U-200 Insulin) See Protocol subcut TIDCM diabetes 09/12/20 nitroglycerin 0.4 mg sublingual tablet 0.4 mg sublingual Q5M PRN Chest Pain 09/12/20 carvedilol 3.125 mg tablet 3.125 mg PO BID heart 11/17/22 empagliflozin 10 mg tablet (Jardiance) 10 mg PO DAILY diabetes 11/17/22 ondansetron 4 mg disintegrating tablet 4 mg PO Q8H PRN PRN Nausea #10 tabs 09/13/23 duloxetine 60 mg capsule,delayed release (Cymbalta) 120 mg PO DAILY depression 11/23/23 hydrochlorothiazide 25 mg tablet 25 mg PO DAILY 11/23/23 diazepam 5 mg tablet 5 mg PO DAILY PRN tremors 01/07/24 insulin glargine 100 unit/mL (3 mL) subcutaneous pen 35 unit (0.35 mL) subcut BID diabetes 30 days #0 mL 01/10/24 Physical Exam Narrative Seen and examined. Patient is stated he has chronic neuropathy and had a stroke. He is on wheelchair for last 4 years. He wants to go home. He said his cannot take care of him. Physical exam general: Alert, Oriented x3, Cooperative. Obesity grade 1 HEENT: Atraumatic, PERRLA, EOMI, Normocephalic Oral: No Gingival or Mucosal Lesions/ Ulcerations Neck: Supple, No JVD, Negative Carotid Bruits Chest wall/Lungs: Air entry diminished in bilateral lung bases. No crepitation/rhonchi Cardiovascular: Regular rate, Regular Rhythm, Normal S1, Normal S2, No M/G/R Abdomen: Bowel Sounds Present, Soft, Non Tender, Non-Distended : No dysuria. No renal angle tenderness. No suprapubic tenderness. Extremities: No edema, Capillary Refill Less than 3 Seconds Skin: No rashes, No breakdown Musculoskeletal: No Tenderness to Palpation of Joints or Extremities. Degenerative arthritis power 4/5 at knees and hip joints. Neurological: Cranial nerves II-XII grossly intact, DTR 2+/4. Chronic neuropathy, lower extremity Psych/Mental Status: Normal Affect, Appropriate. Weight / BMI Weight Weight: 224 lb 10.417 oz Body Mass Index (BMI) 33.1 ABG / Lab / Microbiology Data 01/10/24 06:39 01/10/24 06:39 Laboratory: Laboratory Results - last 24 hr 01/09/24 16:57: POC Glucose 177 H 01/09/24 20:34: POC Glucose 186 H 01/10/24 06:39: WBC 8.7, RBC 5.42, Hgb 14.8, Hct 45.7, MCV 84.3, MCH 27.3, MCHC 32.4, RDW Std Deviation 45.1 H, RDW Coeff of Jr 14.8 H, Plt Count 178, MPV 10.6, Sodium 140, Potassium 3.5, Chloride 104, Carbon Dioxide 28.0, Anion Gap 8, BUN 31 H, Creatinine 1.63 H, Estim Creat Clear Calc 53.16, Est GFR (MDRD) Af Amer 55 L, Est GFR (MDRD) Non-Af 45 L, BUN/Creatinine Ratio 19.0, Glucose 130 H, Calcium 9.1 Microbiology: Microbiology 01/06/24 21:45 Mucosa - Nose SARS-CoV-2, Influenza & RSV (PCR) - Final SARS-CoV-2 (COVID 19 PCR) D/C Instructions Discharge Diet: Low fat / Low cholesterol, 1800 Calorie Control Diet and 2000 mg Sodium Diet Weight Bearing Status: Weight bearing as tolerated Call your doctor if you observe: Fever of 101 or Higher, Coldness, Increased Pain, Numbness or Tingling, Change in Color, Inability to urinate, Inability to have a bowel movement, Shortness of breath, Dizziness, Fainting spells, Swelling in the ankles, Chest pain, Prolonged hiccupping, Increased palpitations (irregular heartbeat) and Calf discomfort When: IN 2 WEEKS Meaningful Use Info Meaningful Use Meaningful Use Diagnoses (Choose all that apply): None applicable Ischemic Stroke Statin Dosing Therapy Reference: STATIN DOSE THERAPY REFERENCE: * Patients > 75 years receive moderate or high dose statin therapy. * Patients 75 years or YOUNGER should receive HIGH intensity statin dose unless contraindicated. You will be required to document reason for non-treatment if statin daily dose does not meet guidelines. HIGH DOSE STATIN THERAPY DAILY Atorvastatin > than or = to 40 mg Rosuvastatin > than or = to 20 mg Amlodipine + Atorvastatin > than or = to 2.5/40 mg Ezetimibe + Simvastatin 10/80 mg Simvastatin 80mg Discharge Plan Admission Admit Date/Time: 01/06/24 23:47 Primary Reason for Your Visit: Generalized weakness Attending Provider: Cristofer Desouza Primary Care Provider: Chema Mckeon Consulting Providers: Faisal Whalen; Clara Whiteside Instructions Additional Instructions / Restrictions: Outpatient PT and OT Discharge Orders/Prescriptions Prescriptions: Continued duloxetine [Cymbalta] 60 mg capsule,delayed release(DR/EC) 120 mg PO DAILY cholecalciferol (vitamin D3) 50 mcg (2,000 unit) tablet 50 mcg PO DAILY hydrochlorothiazide 25 mg tablet 25 mg PO DAILY pantoprazole 40 MG tablet 40 mg PO DAILY aspirin 81 MG tablet,chewable 81 mg PO DAILY atorvastatin 80 MG tablet 80 mg PO QHS nitroglycerin 0.4 mg tablet, sublingual 0.4 mg sublingual Q5M PRN (Reason: Chest Pain) Patient Comments: Place 1 tablet under tongue as needed for Chest pain. max = 3 doses. If CP persists after 1st dose, call 911 Humalog KwikPen Insulin 200 unit/mL (3 mL) insulin pen See Protocol SUBCUT TIDCM Protocol: 6. Sliding Scale Insulin Custom Condition: mg/dl range Dose/Route: Number of Units Condition: 100-124 Dose/Route: 12 Condition: 125-149 Dose/Route: 14 Condition: 150-174 Dose/Route: 16 Condition: 175-199 Dose/Route: 18 Condition: 200-224 Dose/Route: 20 Condition: 225-249 Dose/Route: 22 Condition: 250-299 Dose/Route: 24 Protocol Text: Custom Sliding Scale call >299 Jardiance 10 mg tablet 10 mg PO DAILY carvedilol 3.125 mg tablet 3.125 mg PO BID ondansetron 4 mg tablet,disintegrating 4 mg PO Q8H PRN PRN (Reason: Nausea) Qty: 10 0RF diazepam 5 mg tablet 5 mg PO DAILY PRN (Reason: tremors) clopidogrel 75 mg tablet 75 mg PO DAILY magnesium oxide 400 mg magnesium capsule 400 mg PO BID Changed insulin glargine 100 UNIT/ML insulin pen 35 unit subcut BID 30 Days Qty: 0 0RF Rx Instructions: Hold if glucose less than 130 mg/dl Referrals / Follow Up: Chema Mckeon DO [Primary Care Provider] - Disposition Disposition (needs filled in before D/C Order can be placed): Home, Self Care Charges/Coding Visit Charges Inpatient E&M: 35589 Disch Hosp >30min
--- NOTE | 2024-01-10 15:16 | CASEMGMT ---
Social Work- SW called Karen to advise of d/c. Karen reports that she will head this way. MEGHAN updated bedside nurse. AVANI Vickers
== END 2024-01-10 16:23 | disposition home or self-care (01) | DRG 178 ==
LOC: ED 23:03 → MS3 23:56
PROVIDERS: Internal Medicine; Admitting Provider Internal Medicine; Emergency Provider Emergency Medicine; PCP Family Medicine; Visit Provider Internal Medicine
DX: U07.1 COVID-19 (principal); I50.22 Chronic systolic (congestive) heart failure; I13.0 Hypertensive heart and chronic kidney disease with heart failure and stage 1 through stage 4 chronic kidney disease, or unspecified chronic kidney disease; E11.22 Type 2 diabetes mellitus with diabetic chronic kidney disease; N18.32 Chronic kidney disease, stage 3b; E66.9 Obesity, unspecified; E78.5 Hyperlipidemia, unspecified; E86.0 Dehydration; F41.8 Other specified anxiety disorders; E11.65 Type 2 diabetes mellitus with hyperglycemia; Z79.4 Long term (current) use of insulin; I25.10 Atherosclerotic heart disease of native coronary artery without angina pectoris; K21.9 Gastro-esophageal reflux disease without esophagitis; R26.2 Difficulty in walking, not elsewhere classified; I25.2 Old myocardial infarction; F17.290 Nicotine dependence, other tobacco product, uncomplicated; Z79.82 Long term (current) use of aspirin; Z68.34 Body mass index [BMI] 34.0-34.9, adult; Z79.02 Long term (current) use of antithrombotics/antiplatelets; Z79.84 Long term (current) use of oral hypoglycemic drugs; Z86.73 Personal history of transient ischemic attack (TIA), and cerebral infarction without residual deficits; Z95.5 Presence of coronary angioplasty implant and graft; R53.81 Other malaise; Z95.1 Presence of aortocoronary bypass graft; Z79.899 Other long term (current) drug therapy; R53.1 Weakness
CPT/HCPCS: 36415; 71046; 80048; 80053; 80061; 81001; 82962; 83036; 83735; 83880; 84100; 84443; 84484; 85025; 85027; 87631; 93005; 94668; 97110; 97162; 97166; 97530; 97535; 97802; 99285; J7030; A4216

== ENCOUNTER → 2024-03-29 | Outpatient (CLI) | payer MEDICARE, SELFPAY ==
[2019-03-06 08:28] VITALS: BMI 29.0
== END | disposition home or self-care (01) ==
LOC: LAB 12:10
PROVIDERS: PCP Family Medicine; Visit Provider Internal Medicine Cardiovascular Disease
DX: Z00.00 Encounter for general adult medical examination without abnormal findings (principal)

== ENCOUNTER 2024-07-09 15:08 | Emergency (ER) | payer MEDICARE, SELFPAY ==
[2019-03-06 08:28] VITALS: BMI 29.0
[2024-07-09] VITALS (14 sets, daily range): BP systolic 95–148; BP diastolic 50–91; PULSE 74–86; RESP 12–18; TEMP 36.6–36.8; O2SAT 93–99; BMI 32.5
--- NOTE | 2024-07-09 15:36 | EDS_ITS ---
HPI HPI - Fall History of Present Illness Chief Complaint: Fall PFSH PFS Medical History Ambulatory dysfunction Chest pain Debility Generalized weakness Depression CKD (chronic kidney disease) stage 3, GFR 30-59 ml/min 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 Obesity Polyp of colon Systolic CHF GERD (gastroesophageal reflux disease) Ischemic cardiomyopathy Essential hypertension Hyperlipidemia Arteriosclerosis of coronary artery in patient with history of myocardial infarction STEMI (ST elevation myocardial infarction) (03/05/19) Type 2 diabetes mellitus CVA (cerebral vascular accident) Syncope and collapse Bradycardia Syncope Anxiety Noncompliance with diabetes treatment Back pain FLORY (acute kidney injury) Nonketotic hyperglycinemia Hematochezia Home Medications ?Medication ?Instructions ?Recorded ?Last Taken ?Type aspirin 81 mg chewable tablet 81 mg PO DAILY heart hea lth 03/10/19 11/16/22 History pantoprazole 40 mg tablet,delayed 40 mg PO DAILY acid reflux 03/10/19 11/16/22 History release magnesium oxide 400 mg PO BID supplement 11/16/22 History cholecalciferol (vitamin D3) 50 50 mcg PO DAILY supple ment 09/27/19 11/16/22 History mcg (2,000 unit) tablet atorvastatin 80 mg tablet 80 mg PO QHS cholesterol 11/16/22 History nitroglycerin 0.4 mg sublingual 0.4 mg sublingual Q5M PRN Chest 09/12/20 Unknown History tablet Pain empagliflozin 10 mg tablet 10 mg PO DAILY diabetes 12/0211/16/22 History (Jardiance) ondansetron 4 mg disintegrating 4 mg PO Q8H PRN PRN Na usea #10 tabs 09/13/23 Unknown Rx tablet duloxetine 60 mg capsule,delayed 120 mg PO DAILY depre ssion 11/23/23 Unknown History release (Cymbalta) diazepam 5 mg tablet 5 mg PO DAILY PRN tremors Unknown History insulin lispro 100 unit/mL 10 unit (0.1 mL) subcut TID AC 1 01/10/24 Unknown Rx subcutaneous pen (Humalog KwikPen month #15 mL (U-100) Insulin) insulin lispro 100 unit/mL See Protocol subcut ACHS #0 mL 01/10/24 Unknown Rx subcutaneous pen (Humalog KwikPen (U-100) Insulin) carvedilol 6.25 mg tablet 6.25 mg PO BID heart #60 tab s 03/29/24 Unknown Rx insulin glargine 100 unit/mL (3 40 unit subcut BID ghanshyam betes 03/29/24 Unknown History mL) subcutaneous pen sacubitril 24 mg-valsartan 26 mg 1 tab PO BID #60 tabs 03/29/24 Unknown Rx tablet (Entresto) Allergy/AdvReac Type Severity Reaction Status Date / Time etodolac Allergy Unknown Unknown Verified 07/09/24 15:16 nifedipine (From Adalat) Allergy Unknown Verified 07/09/24 15:16 Family History Father Heart disease Son Kidney disease Surgical History Hx of CABG History of coronary artery stent placement S/P coronary artery bypass graft x 4 (~08/03/19) Stented coronary artery (03/06/19) History of umbilical hernia repair History of back surgery History of lumbar fusion Social History household members: spouse Smoking Status: Current some day smoker tobacco type: pipe alcohol intake: never substance use type: does not use caffeine: No EXAM Physical Exam Const Vital Signs: 07/09/24 15:09 07/09/24 15:10 07/09/24 15:17 Temperature 97.8 F Temperature Source Oral Pulse Rate 77 Respiratory Rate 15 Respiratory Effort Normal Non-Labored Respiratory Depth Normal Respiratory Pattern Normal Blood Pressure 121/80 H Blood Pressure Mean 93 Pulse Ox 98 Oxygen Delivery Method Room Air Room Air Room Air 07/09/24 15:21 07/09/24 15:30 07/09/24 15:45 Temperature Temperature Source Pulse Rate 79 78 79 Respiratory Rate 16 16 17 Respiratory Effort Respiratory Depth Respiratory Pattern Blood Pressure 108/89 H 95/63 Blood Pressure Mean 97 75 Pulse Ox 93 95 96 Oxygen Delivery Method 07/09/24 16:00 07/09/24 16:01 07/09/24 16:15 Temperature Temperature Source Pulse Rate 74 75 75 Respiratory Rate 14 18 14 Respiratory Effort Respiratory Depth Respiratory Pattern Blood Pressure 139/84 H Blood Pressure Mean 98 Pulse Ox 98 99 97 Oxygen Delivery Method 07/09/24 16:30 07/09/24 16:31 07/09/24 16:45 Temperature Temperature Source Pulse Rate 78 78 Respiratory Rate 15 12 Respiratory Effort Respiratory Depth Respiratory Pattern Blood Pressure 129/80 H Blood Pressure Mean 96 Pulse Ox 98 Oxygen Delivery Method 07/09/24 17:00 07/09/24 17:15 07/09/24 19:00 Temperature Temperature Source Pulse Rate 81 82 86 Respiratory Rate 15 16 18 Respiratory Effort Respiratory Depth Respiratory Pattern Blood Pressure 130/50 H 144/91 H Blood Pressure Mean 70 108 Pulse Ox 98 93 98 Oxygen Delivery Method Room Air 07/09/24 20:52 Temperature 98.3 F Temperature Source Pulse Rate 85 Respiratory Rate 17 Respiratory Effort Respiratory Depth Respiratory Pattern Blood Pressure 148/74 H Blood Pressure Mean 98 Pulse Ox 98 Oxygen Delivery Method MDM MDM MDM Narrative Medical decision making narrative: HISTORY OF PRESENT ILLNESS: Chief complaint: Fall 63-year-old male history of debility, ambulatory dysfunction, GERD, CHF, CKD, ischemic cardiomyopathy, CAD status post CABG x 4, hypertension, hyperlipidemia presents with fall. He states he suffered mechanical fall from standing just prior to arrival. He states he has had issues with neuropathy and leg weakness for 7 years. He states today he was on his scooter try to transfer from his scooter to a toilet And fell onto his buttocks. He notes just prior to falling he felt short of breath, felt warm and dizzy. Denies syncope. Denies chest pain. Denies recent illness. Denies cough fever chills. The patient denies recent surgery in the last 4 weeks or immobilization in the last 3 days, denies previous diagnosis of DVT or PE, hemoptysis, unilateral leg swelling or malignancy with treatment the last 6 months or palliative. No estrogen use noted. REVIEW OF SYSTEMS: Pertinent positives: Fall, dizziness, shortness of breath Pertinent negatives: Chest pain, fever, cough, syncope PHYSICAL EXAM: Nursing triage notes reviewed, Vital signs reviewed Primary Survey Airway: Intact Breathing: Bilateral breath sounds Circulation: Palpable bilateral femorals, Palpable bilateral radial, Palpable bilateral DP and Palpable bilateral PT Disability / Spine precautions GCS Score: Eye Openin Verbal Response: 5 Motor Response: 6 Secondary Survey Constitutional: Please see MDM Head: Atraumatic, Midface stable, NO jaw malocclusion, No Cephalohematoma, and No Lacerations noted Eye: Pupils equal round and reactive to light, Extraocular muscles intact and No periorbital ecchymosis or stepoff, no evidence of entrapment. No vertical or rotatory nystagmus noted. ENT: Oropharynx clear, no lacerations, no hemotympanum, no raccoon eyes or gonzalez sign Cervical spine / Neck: No cervical spine bony tenderness, crepitance, or stepoff deformity Trachea midline Lungs: Clear to auscultation, No asymmetric rise and No crepitus, no flail chest Cardiac: Regular rate and rhythm and No murmurs Abdomen: Soft, Nontender and No rebound Pelvis: Pelvis stable to compression : No evidence of genital injury Back: No midline bony tenderness to thoracic/lumbar/sacral spines Neuro: At baseline, intact strength (chronic weakness noted) and sensation in bilateral upper and lower extremities. 2+ patellar reflexes bilaterally. No lateralizing neurologic deficits. No ataxia. Extremities: NO gross Deformities, positive logroll on the left Psych: Normal affect Nursing triage notes reviewed, Vital signs reviewed MEDICAL DECISION MAKING: Chief Complaint: please see HPI External records reviewed: Reviewed prior hospitalization from December 2023 for which the patient was admitted for COVID-19, dehydration and severe hyperglycemia Factors affecting care: as per HPI Social determinants of health: elderly patient History obtained from others: EMS Consults: Cardiology (Dr. Heart) -discussed the [facility] high-sensitivity troponin protocol. Initially ordered troponins given the patient's cardiac history reported shortness of breath and dizziness that were transient. Patient's initial troponin was 36 and had a delta of 6 on his 4-hour troponin which would technically rule the patient into our high-sensitivity 12 protocol however the patient had no chest pain. His troponin was downtrending. Dr. Heart noted patient did not require inpatient admission at this time. [facility] Narrative: The patient was initially hemodynamically stable, afebrile and nontoxic- appearing. Saturating well on room air. Primary secondary trauma surveys were viable for concern for hip or pelvic trauma given fall onto these body parts. I obtained a CT scan of the head given the patient report of dizziness. I considered the following differential diagnosis: ICH, CVA, anemia, electrolyte disturbance, dehydration, arrhythmia, ACS, bony injury to the hip or pelvis. While I considered pulmonary embolism as a potential etiology the patient low risk Wells score, without a tachycardic hypoxic. Given low risk Wells score for low suspicion for PE. No indication for D-dimer or CT of the chest at this time. ALL IMAGES (IF OBTAINED) HAVE BEEN PERSONALLY REVIEWED AND INTERPRETED BY MYSELF. I have personally reviewed the patient's chest x-ray. Chest x-ray is unremarkable for pulmonary edema, pneumothorax, pneumonia or focal cardiopulmonary abnormality. X-ray of the hip and pelvis read and reviewed person by myself showed show no evidence of bony abnormalities. CT scan head was negative for intracranial hemorrhage EKG with normal sinus rhythm rate 78, normal axis, prolonged QT interval 470, no STEMI. No significant changes when compared to prior EKG from December 2023. Initial troponins were negative x 2 awaiting third BMP without significant electrolyte abnormalities, noted CKD, LFTs show no evidence of hepatobiliary pathology. Lipase is wnl indicating no pancreatic inflammation. CBC with very mild leukocytosis, no anemia or thrombocytopenia. Third troponin was 30 technically a delta of 6 which rules and base her high- sensitivity troponin protocol. The synthesis of the patient's history, physical exam, labs images suggest no acute life-limiting etiology. The patient's troponin was downtrending. He was chest pain-free. His EKG was nonischemic. Given borderline delta I discussed case with cardiology who agreed the patient does not require inpatient admission given no chest pain, stable vitals, nonischemic EKG. The feed mixer helper close outpatient follow-up. Recommended against admission at this time. The patient and/or family, caregivers express understanding. The patient and/or family, caregivers agrees with the plan. Shared decision making: I will have a discussion with the patient and or visitors regarding risk/benefits of further testing or admission. They will be made aware of of the risk/benefits inherent in this decision they will be given the opportunity to voice understanding. Total critical care time today provided was at least 0 minutes. This excludes separately billable procedures. Critical care time (if documented) is secondary to the patient having high probability of clinically significant/life threatening deterioration in the patient's condition which required my urgent intervention. Impression: 1. Fall 2. Transient dyspnea 3. CKD Dispo: Discharge home This note was generated with [employer] dictation software. It may contain incorrect words, spelling, and punctuation that were not noted in review of the chart prior to signing. Lab Data Labs: Laboratory Results - last 24 hr 07/09/24 07/09/24 07/09/24 15:17 17:20 19:17 WBC 11.3 H RBC 4.93 Hgb 14.8 Hct 42.4 MCV 86.0 MCH 30.0 MCHC 34.9 RDW Std Deviation 42.2 RDW Coeff of Jr 13.5 Plt Count 212 MPV 11.6 Immature Gran % (Auto) 1.300 H Neut % (Auto) 77.0 H Lymph % (Auto) 12.1 L [place] % (Auto) 7.1 Eos % (Auto) 2.0 Baso % (Auto) 0.5 Absolute Neuts (auto) 8.7 H Absolute Lymphs (auto) 1.37 Nucleated RBC % 0 Sodium 136 Potassium 3.9 Chloride 94 L Carbon Dioxide 23.9 Anion Gap 19 H BUN 33 H Creatinine 1.77 H Estim Creat Clear Calc 48.46 L Est GFR (MDRD) Non-Af 42 L BUN/Creatinine Ratio 18.8 Glucose 254 H Calcium 9.5 Total Bilirubin 0.84 AST 21 ALT 19 Alkaline Phosphatase 108 Troponin T High Sens 36 H Troponin T Hi Sens 2 Hr 32 H Troponin T Hi Sens 4Hr 30 H Total Protein 6.5 Albumin 3.7 Globulin 2.8 Albumin/Globulin Ratio 1.3 Lipase 71 Radiography Chest X-Ray - ED: Read by ED Physician Diagnostic Testing: Clinical Impression(s) from Imaging Studies Brain CT 07/09/24 16:03 IMPRESSION: 1. Chronic age-related microvascular ischemic changes. 2. Old remote area of encephalomalacia in the right frontoparietal lobe, stable. 3. Cerebral cortical atrophy. 4. No acute intracranial findings. Reading Location: [facility] Chest X-Ray 07/09/24 16:15 IMPRESSION: No active cardiopulmonary disease.. Reading Location: [facility] Hip/Pelvis X-Ray 07/09/24 16:15 IMPRESSION: No acute fractures or other osseous abnormalities. Status post dorsal fusion of L5-S1. Suspicion of constipation. Reading Location: [facility] Discharge Plan Triage Chief Complaint: Fall ED Provider: Puneet Rosa Dx/Rx/DC Orders Instructions: ED Fall Prevention Prescriptions: No Action duloxetine [Cymbalta] 60 mg capsule,delayed release(DR/EC) 120 mg PO DAILY cholecalciferol (vitamin D3) 50 mcg (2,000 unit) tablet 50 mcg PO DAILY insulin glargine 100 unit/mL (3 mL) insulin pen 40 unit subcut BID Rx Instructions: Hold if glucose less than 130 mg/dl carvedilol 6.25 mg tablet 6.25 mg PO BID Qty: 60 3RF sacubitril-valsartan [Entresto] 24-26 mg tablet 1 tab PO BID Qty: 60 4RF pantoprazole 40 MG tablet 40 mg PO DAILY aspirin 81 MG tablet,chewable 81 mg PO DAILY atorvastatin 80 MG tablet 80 mg PO QHS nitroglycerin 0.4 mg tablet, sublingual 0.4 mg sublingual Q5M PRN (Reason: Chest Pain) Patient Comments: Place 1 tablet under tongue as needed for Chest pain. max = 3 doses. If CP persists after 1st dose, call 911 Jardiance 10 mg tablet 10 mg PO DAILY ondansetron 4 mg tablet,disintegrating 4 mg PO Q8H PRN PRN (Reason: Nausea) Qty: 10 0RF diazepam 5 mg tablet 5 mg PO DAILY PRN (Reason: tremors) insulin lispro [Humalog KwikPen Insulin] 100 unit/mL Insulin Pen 10 unit subcut TIDAC 30 Days Qty: 15 3RF Rx Instructions: Hold if glucose less than 130 mg/dl insulin lispro [Humalog KwikPen Insulin] 100 unit/mL Insulin Pen See Protocol subcut ACHS Qty: 0 0RF Protocol: 4. Sliding Scale Insulin High-Med Dosing Condition: 150-199 mg/dl = 2 units Condition: 200-259 mg/dl = 4 units Condition: 260-324 mg/dl = 6 units Condition: 325-374 mg/dl = 8 units Condition: 375-409 mg/dl = 10 units Condition: 410-449 mg/dl = 11 units Condition: Greater than 449 call physician Protocol Text: Suggested for: - Patients on Total Daily Insulin Dose of 56-80 units - Patient who are known to be insulin resistant or septic HIGH MEDIUM DOSING ALGORITHM magnesium oxide 400 mg magnesium capsule 400 mg PO BID Primary Care Provider: Chema Mckeon Referrals: Vera Heart MD [Med Staff - Active Staff] - Activity Restrictions/Additional Instructions: Thank you for trusting us with your care today! Your labs images were reassuring. Please return to the emergency department if your symptoms change or worsen. Please schedule appointment with our cardiology office (Dr. Heart, number provided above) tomorrow. for further outpatient evaluation and management. Print Language: Italian Disposition Disposition: Home, Self Care
--- NOTE | 2024-07-09 16:03 | EKG12_ITS ---
Test Reason : FALL Blood Pressure : */* mmHG Vent. Rate : 78 BPM Atrial Rate : 78 BPM P-R Int : 190 ms QRS Dur : 88 ms QT Int : 420 ms P-R-T Axes : 63 8 98 degrees QTcB Int : 478 ms Normal sinus rhythm Minimal voltage criteria for LVH, may be normal variant ( R in aVL ) Inferior infarct , age undetermined Abnormal ECG Confirmed by EDVIN TINEO, ZAK ([id number]), editorial writer MAUREEN MCKINLEY ([id number]) on 07/11/2024 8:27:52 AM Referred By: Confirmed By: ZAK PARDO MD
--- NOTE | 2024-07-09 16:03 | CT_ITS ---
PROCEDURE: BRAIN/HEAD WITHOUT CONTRAST 07/09/2024 REASON FOR EXAM: FALL Shortness of breath for years. Diaphoretic. TECHNIQUE: Head CT without intravenous contrast. Coronal and Sagittal reconstruction series were provided. One or more dose reduction techniques were used (e.g., Automated exposure control, adjustment of the mA and/or kV according to patient size, use of iterative reconstruction technique. RADIATION DOSE SUMMARY: CTDlvol: 44.99 mGy DLP: 745.49 mGycm COMPARISON: CT brain dated 05/07/2023 FINDINGS: Cerebrum: No intraparenchymal hemorrhage. Small area of encephalomalacia in the right frontoparietal lobe near the vertex/parafalcine region, stable.. No mass effect or midline shift. Diffuse central white matter and subcortical areas of hypoattenuation, stable. Ventricles and cisterns: Ventricular dilatation with cerebral cortical atrophy. Extra-axial fluid: Unremarkable. Posterior fossa: Unremarkable cerebellum. No abnormalities involving the brainstem. Paranasal sinuses: Normal. Vasculature: Mild atherosclerotic disease. Mastoid air cells: Normal. Calvarium: Unremarkable. Soft tissues: Unremarkable. CT/Brain/Head without Contrast IMPRESSION: 1. Chronic age-related microvascular ischemic changes. 2. Old remote area of encephalomalacia in the right frontoparietal lobe, stabl e. 3. Cerebral cortical atrophy. 4. No acute intracranial findings. Reading Location: [facility]
--- NOTE | 2024-07-09 16:15 | RAD_ITS ---
PROCEDURE: CHEST 1 VIEW (PORTABLE) 07/09/2024 REASON FOR EXAM: SOB, DIZZINESS TECHNIQUE: Frontal view of the chest. COMPARISON: Chest dated 01/06/2024. FINDINGS: Lungs: Lungs clear of pneumonia and congestion. Pleura: No pleural effusions, thickening, or pneumothorax. Heart: Normal in size and configuration. Mediastinum/Amisha: Unremarkable. Great vessels: Unremarkable. Bones/soft tissues: Degenerative changes of the right glenohumeral joint. Median sternotomy wires. Therapeutic devices: Cardiac monitoring leads overlie the chest wall. Metallic clips from previous CABG. RAD/Chest 1 View (Portable) IMPRESSION: No active cardiopulmonary disease.. Reading Location: [facility]
--- NOTE | 2024-07-09 16:15 | RAD_ITS ---
PROCEDURE: HIP, UNI W/ PELVIS 2-3 VIEWS 07/09/2024 REASON FOR EXAM: FALL, LEFT SIDED HIP/PELVIC PAIN TECHNIQUE: AP pelvis and 2 views of the left hip. COMPARISON: No relevant prior. FINDINGS: Bones: No fractures. No osteolytic or osteoblastic lesions. Status post dorsal fusion of L5-S1 with surgical instrumentation. Joints: No dislocations or subluxations. Soft tissues: Unremarkable Other: Large amount of fecal debris. RAD/HIP, UNI W/ Pelvis 2-3 Views IMPRESSION: No acute fractures or other osseous abnormalities. Status post dorsal fusion of L5-S1. Suspicion of constipation. Reading Location: [facility]
[2024-07-09 16:16] LABS: Absolute Lymphocyte Count 1.37 X10^3/uL (0.83-4.51); Absolute Neutrophil Count 8.7 X10^3/uL (2.0-7.7); Basophil# 0.06 X10^3/uL; Basophil% 0.5 % (0-1); Eosinophil# 0.23 X10^3/uL; Hematocrit 42.4 % (40-54); Hemoglobin 14.8 g/dL (13.0-16.5); Lymphocyte # 1.37 X10^3/ul (0.83-4.51); Lymphocyte % 12.1 % (19-41); Mean Corp Hgb Conc 34.9 g/dL (32-36); Mean Platelet Vol. 11.6 fl (6.2-12.0); Monocyte% 7.1 % (0-10); NRBC Flagged by Analyzer 0 % (0-5); Neutrophil # 8.73 X10^3/uL (2.7-7.7); Platelet Count 212 K/mm3 (150-450); RBC Distribution Width CV 13.5 % (11.6-14.6); RBC Distribution Width SD 42.2 fl (35.1-43.9); Red Blood Count 4.93 M/mm3 (4.6-6.2); White Blood Count 11.3 K/mm3 (4.4-11.0)
[2024-07-09 17:01] LABS: Troponin T High Sensitivity 36 ng/L (<=22)
[2024-07-09 17:23] LABS: ALB/GLOB Ratio 1.3 RATIO (0.9-2.4); AST(SGOT) 21 U/L (<=37); Alanine Aminotransfer ALT/SGPT 19 U/L (<=46); Albumin, Serum 3.7 g/dL (3.4-4.8); Alkaline Phosphatase 108 U/L (40-129); Anion Gap 19 (5-15); BUN 33 mg/dL (4-19); BUN/Creat Ratio 18.8 RATIO (10-20); Calcium,Total 9.5 mg/dL (7.6-11.0); Carbon Dioxide 23.9 mmol/L (21.0-32.0); Chloride 94 mmol/L (98-108); Creatinine, Serum 1.77 mg/dL (0.70-1.20); EST Glomerular Filtration Rate 42 (>60); Estimated Creatinine Clearance 48.46 ml/min (50-250); Globulin 2.8 g/dL (2.2-4.2); Glucose 254 mg/dL (70-99); Lipase 71 U/L (13-75); Potassium 3.9 mmol/L (3.3-5.1); Protein, Total 6.5 g/dL (5.9-8.4); Sodium Level 136 mmol/L (133-145); Total Bilirubin 0.84 mg/dL (0.00-1.30)
[2024-07-09 17:46] LABS: Troponin T High Sens 2 HR 32 ng/L (<=22)
[2024-07-09 19:40] LABS: Troponin T High Sens 4 HR 30 ng/L (<=22)
== END 2024-07-09 21:38 | disposition home or self-care (01) ==
PROVIDERS: Emergency Provider Emergency Medicine; PCP Family Medicine; Visit Provider Emergency Medicine
DX: R42 Dizziness and giddiness (principal); I13.0 Hypertensive heart and chronic kidney disease with heart failure and stage 1 through stage 4 chronic kidney disease, or unspecified chronic kidney disease; I50.22 Chronic systolic (congestive) heart failure; E11.22 Type 2 diabetes mellitus with diabetic chronic kidney disease; Z79.4 Long term (current) use of insulin; N18.30 Chronic kidney disease, stage 3 unspecified; E78.5 Hyperlipidemia, unspecified; I25.10 Atherosclerotic heart disease of native coronary artery without angina pectoris; I25.2 Old myocardial infarction; Z86.73 Personal history of transient ischemic attack (TIA), and cerebral infarction without residual deficits; K21.9 Gastro-esophageal reflux disease without esophagitis; Z79.899 Other long term (current) drug therapy; Z79.82 Long term (current) use of aspirin; F32.A Depression, unspecified; Z95.5 Presence of coronary angioplasty implant and graft; F17.200 Nicotine dependence, unspecified, uncomplicated; Z95.1 Presence of aortocoronary bypass graft; W05.2XXA Fall from non-moving motorized mobility scooter, initial encounter; Y93.89 Activity, other specified; R06.00 Dyspnea, unspecified
CPT/HCPCS: 70450; 71045; 73502; 80053; 83690; 84484; 85025; 93005; 99285; A4216

== ENCOUNTER 2024-09-11 10:55 | Emergency (ER) | payer MEDICARE, SELFPAY ==
[2019-03-06 08:28] VITALS: BMI 29.0
[2024-09-11 10:57] VITALS: BP 142/90; PULSE 92; RESP 19; TEMP 36.7; O2SAT 98; BMI 32.3
--- NOTE | 2024-09-11 11:10 | EKG12_ITS ---
Test Reason : FALL Blood Pressure : */* mmHG Vent. Rate : 94 BPM Atrial Rate : 94 BPM P-R Int : 192 ms QRS Dur : 96 ms QT Int : 390 ms P-R-T Axes : 62 8 84 degrees QTcB Int : 487 ms Normal sinus rhythm Minimal voltage criteria for LVH, may be normal variant ( R in aVL ) Inferior infarct , age undetermined QTcB >= 480 msec Abnormal ECG Confirmed by Genaro Brown ([id number]), photograph editor MAUREEN MCKINLEY ([id number]) on 09/12/2024 9:53:46 AM Referred By: Confirmed By: Genaro Brown
--- NOTE | 2024-09-11 11:10 | RAD_ITS ---
EXAM: XR Chest, 2 Views CLINICAL INDICATION: WEAKNESS TECHNIQUE: Frontal and lateral views of the chest. COMPARISON: No relevant prior studies available. FINDINGS: LUNGS AND PLEURAL SPACES: Unremarkable. No consolidation. No pneumothorax. HEART: Unremarkable. No cardiomegaly. MEDIASTINUM: Unremarkable. Normal mediastinal contour. BONES/JOINTS: Unremarkable. No acute fracture. RAD/Chest PA and Lateral IMPRESSION: No acute cardiopulmonary process. Reading Location[facility]
--- NOTE | 2024-09-11 11:13 | EDS_ITS ---
HPI HPI - Fall History of Present Illness Chief Complaint: Fall Informant: patient and EMS Occured/Mechanism Occurred: Today Mechanism/Context: Yes same level fall Usually ambulates: Non-Ambulatory (Patient has not walked for years.) Pain/Injury Pain Location: none Narrative Narrative: 63-year-old male history of insulin-dependent diabetes, 2 strokes[address] bypass, VT and chronic kidney disease. He does not ambulate at all and says he has not walked for years. He was transferring at home from a reclining chair to his scooter to go to the bathroom when he fell. Denies any injuries. Says over the last 3 days he has had nausea vomiting and diarrhea. Denies fever. No dysuria. No chest or abdominal pain. Denies shortness of breath. No melena. Patient is on aspirin but no other blood thinners. Lives at home with his . Prior similar symptoms: No Recent Illness/Hospitalization: No PFSH PFSH Medical History Ambulatory dysfunction Chest pain Debility Generalized weakness Depression CKD (chronic kidney disease) stage 3, GFR 30-59 ml/min 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 Obesity Polyp of colon Systolic CHF GERD (gastroesophageal reflux disease) Ischemic cardiomyopathy Essential hypertension Hyperlipidemia Arteriosclerosis of coronary artery in patient with history of myocardial infarction STEMI (ST elevation myocardial infarction) (03/05/19) Type 2 diabetes mellitus CVA (cerebral vascular accident) Syncope and collapse Bradycardia Syncope Anxiety Noncompliance with diabetes treatment Back pain FLORY (acute kidney injury) Nonketotic hyperglycinemia Hematochezia Home Medications ?Medication ?Instructions ?Recorded ?Last Taken ?Type aspirin 81 mg chewable tablet 81 mg PO DAILY heart hea lth 03/10/19 09/09/24 History magnesium oxide 400 mg PO BID supplement 09/09/24 History cholecalciferol (vitamin D3) 50 50 mcg PO DAILY supple ment 09/27/19 09/09/24 History mcg (2,000 unit) tablet atorvastatin 80 mg tablet 80 mg PO QHS cholesterol 09/09/24 History nitroglycerin 0.4 mg sublingual 0.4 mg sublingual Q5M PRN Chest 09/12/20 Unknown History tablet Pain empagliflozin 10 mg tablet 10 mg PO DAILY diabetes 12/0209/09/24 History (Jardiance) duloxetine 60 mg capsule,delayed 120 mg PO DAILY depre ssion 11/23/23 09/09/24 History release (Cymbalta) insulin lispro 100 unit/mL 10 unit (0.1 mL) subcut TID AC 1 01/10/24 09/09/24 Rx subcutaneous pen (Humalog KwikPen month #15 mL (U-100) Insulin) insulin lispro 100 unit/mL See Protocol subcut ACHS #0 mL 01/10/24 09/09/24 Rx subcutaneous pen (Humalog KwikPen (U-100) Insulin) carvedilol 6.25 mg tablet 6.25 mg PO BID heart #60 tab s 03/29/24 09/09/24 Rx sacubitril 24 mg-valsartan 26 mg 1 tab PO BID #60 tabs 03/29/24 09/09/24 Rx tablet (Entresto) hydrochlorothiazide 25 mg tablet 25 mg PO DAILY 09/09/24 History insulin glargine-yfgn 100 unit/mL 40 unit subcut BID 0 09/11/24 09/09/24 History (3 mL) subcutaneous pen Allergy/AdvReac Type Severity Reaction Status Date / Time etodolac Allergy Unknown Unknown Verified 09/11/24 11:00 nifedipine (From Adalat) Allergy Unknown Verified 09/11/24 11:00 Family History Father Heart disease Son Kidney disease Surgical History Hx of CABG History of coronary artery stent placement S/P coronary artery bypass graft x 4 (~08/03/19) Stented coronary artery (03/06/19) History of umbilical hernia repair History of back surgery History of lumbar fusion Social History household members: spouse Smoking Status: Current some day smoker tobacco type: pipe alcohol intake: never substance use type: does not use caffeine: No ROS ROS ED ROS Narrative Nausea, vomiting diarrhea. Constitutional Constitutional ED: Denies chills or fever(s) Eyes Eyes: Denies blurry vision ENT ENT ED: Denies ear pain Cardiovascular Cardiovascular: Denies chest pain Respiratory/Chest Respiratory/Chest: Denies cough or dyspnea Gastrointestinal Gastrointestinal: Reports diarrhea, nausea and vomiting; Denies abdominal pain or constipation Genitourinary Genitourinary ED: Denies dysuria or hematuria Musculoskeletal Musculoskeletal: Denies arthralgias or back pain Integumentary Denies abscess Neurologic Neurologic: Denies headache(s) Psychiatric Psychiatric: Denies anxiety Endocrine Endocrinology: Denies polydipsia Hematologic/Lymphatic Hematologic/Lymphatic: Denies easy bleeding, easy bruising or lymphadenopathy Allergic/Immunologic Allergic/Immunologic ED: Denies mouth swelling, tongue swelling or urticaria EXAM Physical Exam Narrative Exam Narrative: 63-year-old male sitting upright in bed. Vital signs are stable afebrile. Does not look septic or toxic. No distress. No one else present in the room. H EENT exam pupils round reactive light. He is a prior cataract surgery. He has lens implants. No facial or scalp trauma. Moist mucous membranes. Neck nontender. Trachea midline. Back nontender no signs of trauma. No spine tenderness. Lungs clear to auscultation bilaterally. Heart regular rhythm rate about 85 no murmur. Chest wall and ribs nontender. No crepitance. Prior sternotomy incision dry and clean well-healed from years ago. Abdomen is soft and nontender. Nondistended no peritoneal signs. Pelvic girdle intact. Moving all 4 extremities. 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 He is very weak in both lower extremities which is chronic and not new. Generally he is unable to walk and has not walked for years. There is no deformity or tenderness to his lower extremities. Neurologically is awake and alert. Answering questions and following commands. He has equal and symmetrical weakness to both lower extremities which is chronic. Benign exam for this patient. Basically his baseline. Const Vital Signs: 09/11/24 10:57 09/11/24 11:00 Temperature 98.1 F Temperature Source Oral Pulse Rate 92 Respiratory Rate 19 H Respiratory Effort Normal Blood Pressure 142/90 H Blood Pressure Mean 107 Pulse Ox 98 Oxygen Delivery Method Room Air Positive well nourished and well developed; Negative for cachectic, contractures or unkempt General Appearance ED: well developed and NAD; Negative for unkempt, cachectic or contractures Nutritional Appearance: Negative for cachectic HEENT Reports normocephalic atraumatic; Negative for trauma, contusion, hematoma or tenderness Eyes PERRL and EOMs intact bilaterally Neck full ROM, no lymphadenopathy and supple Chest Wall inspection of chest normal and palpation of chest normal Resp normal respiratory effort, no retractions and clear to auscultation bilaterally Cardio regular rate, regular rhythm, S1 normal heart sound, S2 normal heart sound and no murmurs GI non-tender, non-distended and no masses Auscultation: normoactive bowel sounds Palpation: soft; Negative for guarding or rebound tenderness present Back/Spine no CVA tenderness General Back: Negative for CVA tenderness Cervical Spine: Negative for cervical spine tenderness Lumbar Spine / Lower Back: Negative for lumbar spinal tenderness Neuro oriented x3, CN's II-XII intact bilaterally and No no focal motor deficits Neuro Narrative: Normal non destructive testing supervisor strength. Generalized weakness both lower extremities unable to lift either leg off the bed. That is chronic. He is nonambulatory for years. Awake and alert. Answering questions following commands. Sensorium / Orientation: alert, oriented to person, oriented to place and oriented to time; Negative for orientation impaired, confused, lethargic or stuporous Motor Exam: strength abnormal; Negative for strength 5/5 throughout Psych mental status grossly normal and thought process normal Appearance: Negative for unkempt Mood & Affect: Negative for depressed, anxious or tearful Skin Lesions: no lesions Rashes: no rashes MDM MDM MDM Narrative Medical decision making narrative: 63-year-old gentleman with multiple chronic medical problems. States he would not be in here today except he fell at home transferring from recliner to his scooter. He is nonambulatory. He has had nausea vomiting and diarrhea the last 3 days. Screening labs will be obtained. I do not think he needs any imaging for any injuries because he is not having any pain nor is or any deformities or any on physical exam and I think I need to x-ray. He denies any other complaints. Repeat exam patient is doing well at 12:57 PM patient doing well. Resting comfortably. He wants to eat. Patient is wheelchair-bound he does not walk at home. He has no reason to be admitted to the hospital. He has had some recent nausea and vomiting he will be given a prescription for Zofran for that. Otherwise outpatient follow-up. He is comfortable being discharged to home. History & Record Review Discussion w/independent historian: Patient Additional record(s) reviewed:: Prior inpatient record, Prior outpatient record, Prior ED visit and Prior labs Lab Data Attestation: I reviewed the patient's lab results. Lab results narrative: CBC shows white 11.8. H&H 15 and 44. Platelets 220. Electrolytes show sodium 136. Gap 16. BUN 30 creatinine 1.53. Glucose 269. Urinalysis shows occult blood. No nitrates. 5-10 red cells. No white cells. Only rare bacteria is negative. Labs: Laboratory Results - last 24 hr 09/11/24 09/11/24 11:16 11:30 WBC 11.8 H RBC 5.11 Hgb 15.3 Hct 44.3 MCV 86.7 MCH 29.9 MCHC 34.5 RDW Std Deviation 41.1 RDW Coeff of Jr 13.1 Plt Count 220 MPV 10.8 Immature Gran % (Auto) 0.900 Neut % (Auto) 81.5 H Lymph % (Auto) 9.[address] [place] % (Auto) 6.0 Eos % (Auto) 1.4 Baso % (Auto) 0.4 Absolute Neuts (auto) 9.6 H Absolute Lymphs (auto) 1.15 Nucleated RBC % 0 Sodium 136 Potassium 4.6 Chloride 98 Carbon Dioxide 21.7 Anion Gap 16 H BUN 30 H Creatinine 1.53 H Estim Creat Clear Calc 55.92 Est GFR (MDRD) Non-Af 50 L BUN/Creatinine Ratio 19.3 Glucose 269 H Calcium 9.2 Urine Color Yellow Urine Clarity Sl. Cloudy Urine pH 6.0 Ur Specific [place] 1.015 Urine Protein 500 H Urine Glucose (UA) 1000 H Urine Ketones 50 H Urine Occult Blood 50 H Urine Nitrite Negative Urine Bilirubin Negative Urine Urobilinogen Normal Ur Leukocyte Esterase Negative Urine RBC 5-10 SEEN Urine WBC 0-5 SEEN Ur Squamous Epith Cells 0-5 SEEN Urine Bacteria RARE Urine Mucus 0 SEEN Radiography Chest X-Ray - ED: 2 View, Read by ED Physician, Read by Radiologist, Normal, Heart, Lungs, Mediastinum, Bony Structures, No Acute Disease and Chronic Changes Diagnostic Testing: Clinical Impression(s) from Imaging Studies Chest X-Ray 09/11/24 11:10 IMPRESSION: No acute cardiopulmonary process. Reading Location: [facility] Chest x-ray, 2 views, AP and lateral, interpreted by myself and radiology shows no acute abnormality. Normal cardiac silhouette. Prior sternotomy. No pneumonia. No effusions. Chronic changes. Rhythm Strip Rhythm Strip: Sinus Rhythm Rate: 94 Ectopy: None EKG Initial EKG: Attestation: I personally reviewed and interpreted this EKG as follows: Interpretation: Sinus Rhythm and No Acute Injury Pattern Comments: Normal sinus rhythm rate 94 no acute signs of VT or ischemia. May have an old inferior infarct with Q waves in lead III and aVF. Discharge Plan Triage Chief Complaint: Fall ED Provider: Timo Banuelos Dx/Rx/DC Orders Prescriptions: No Action duloxetine [Cymbalta] 60 mg capsule,delayed release(DR/EC) 120 mg PO DAILY cholecalciferol (vitamin D3) 50 mcg (2,000 unit) tablet 50 mcg PO DAILY carvedilol 6.25 mg tablet 6.25 mg PO BID Qty: 60 3RF sacubitril-valsartan [Entresto] 24-26 mg tablet 1 tab PO BID Qty: 60 4RF aspirin 81 MG tablet,chewable 81 mg PO DAILY atorvastatin 80 MG tablet 80 mg PO QHS nitroglycerin 0.4 mg tablet, sublingual 0.4 mg sublingual Q5M PRN (Reason: Chest Pain) Patient Comments: Place 1 tablet under tongue as needed for Chest pain. max = 3 doses. If CP persists after 1st dose, call 911 Jardiance 10 mg tablet 10 mg PO DAILY insulin lispro [Humalog KwikPen Insulin] 100 unit/mL Insulin Pen 10 unit subcut TIDAC 30 Days Qty: 15 3RF Rx Instructions: Hold if glucose less than 130 mg/dl insulin lispro [Humalog KwikPen Insulin] 100 unit/mL Insulin Pen See Protocol subcut ACHS Qty: 0 0RF Protocol: 4. Sliding Scale Insulin High-Med Dosing Condition: 150-199 mg/dl = 2 units Condition: 200-259 mg/dl = 4 units Condition: 260-324 mg/dl = 6 units Condition: 325-374 mg/dl = 8 units Condition: 375-409 mg/dl = 10 units Condition: 410-449 mg/dl = 11 units Condition: Greater than 449 call physician Protocol Text: Suggested for: - Patients on Total Daily Insulin Dose of 56-80 units - Patient who are known to be insulin resistant or septic HIGH MEDIUM DOSING ALGORITHM insulin glargine-yfgn 100 unit/mL (3 mL) insulin pen 40 unit subcut BID hydrochlorothiazide 25 mg tablet 25 mg PO DAILY magnesium oxide 400 mg magnesium capsule 400 mg PO BID Primary Care Provider: Chema Mckeon Referrals: Chema Mckeon DO [Primary Care Provider] - Print Language: Albanian
[2024-09-11] MEDS: Ondansetron 4 MG/2 ML Vial IV (11:17)
[2024-09-11 11:26] LABS: Absolute Lymphocyte Count 1.15 X10^3/uL (0.83-4.51); Absolute Neutrophil Count 9.6 X10^3/uL (2.0-7.7); Basophil# 0.05 X10^3/uL; Basophil% 0.4 % (0-1); Eosinophil# 0.16 X10^3/uL; Eosinophils% 1.4 % (0-5); Hematocrit 44.3 % (40-54); Hemoglobin 15.3 g/dL (13.0-16.5); Lymphocyte # 1.15 X10^3/ul (0.83-4.51); Lymphocyte % 9.8 % (19-41); Mean Corp Hgb Conc 34.5 g/dL (32-36); Mean Corpuscular Hgb 29.9 pg (27.0-32.0); Mean Corpuscular Volume 86.7 fL (80-94); Mean Platelet Vol. 10.8 fl (6.2-12.0); Monocyte# 0.71 X10^3/uL; NRBC Flagged by Analyzer 0 % (0-5); Neutrophil # 9.61 X10^3/uL (2.7-7.7); Neutrophil % 81.5 % (47-70); Platelet Count 220 K/mm3 (150-450); RBC Distribution Width CV 13.1 % (11.6-14.6); RBC Distribution Width SD 41.1 fl (35.1-43.9); Red Blood Count 5.11 M/mm3 (4.6-6.2); White Blood Count 11.8 K/mm3 (4.4-11.0)
[2024-09-11 11:33] LABS: Mucous, Urine 0 SEEN /hpf (<or=2+)
[2024-09-11 11:36] LABS: Color, Urine Yellow (Yellow); Glucose, Dipstick 1000 mg/dl (Normal); Ketone-Dipstick 50 mg/dl (Negative); Leukocyte Esterase-Dipstick Negative /ul (Negative); Nitrite-Dipstick Negative (Negative); Occult Blood-Urine 50 /ul (Negative); Protein-Dipstick 500 mg/dl (Negative); Specific Gravity, Urine 1.015 (1.002-1.030); Urine Bilirubin Dipstick Negative (Negative); Urine Clarity Sl. Cloudy (Clear); Urine Urobilinogen Normal (Normal)
[2024-09-11 11:42] LABS: Bacteria RARE /hpf (None Seen); Red Blood Cells-Urine 5-10 SEEN /hpf (0-5); Squamous Epithelial Cells - UA 0-5 SEEN /hpf (0-5); White Blood Cells 0-5 SEEN /hpf (0-5)
[2024-09-11 11:56] LABS: Anion Gap 16 (5-15); BUN 30 mg/dL (4-19); BUN/Creat Ratio 19.3 RATIO (10-20); Calcium,Total 9.2 mg/dL (7.6-11.0); Carbon Dioxide 21.7 mmol/L (21.0-32.0); Chloride 98 mmol/L (98-108); Creatinine, Serum 1.53 mg/dL (0.70-1.20); EST Glomerular Filtration Rate 50 (>60); Estimated Creatinine Clearance 55.92 ml/min (50-250); Glucose 269 mg/dL (70-99); Potassium 4.6 mmol/L (3.3-5.1); Sodium Level 136 mmol/L (133-145)
[2024-09-11 12:56] VITALS: BP 152/93; PULSE 94; O2SAT 97
[2024-09-11 13:15] VITALS: BP 152/93; PULSE 94; RESP 16; TEMP 36.7; O2SAT 95
== END 2024-09-11 13:33 | disposition home or self-care (01) ==
PROVIDERS: Emergency Provider Emergency Medicine; PCP Family Medicine; Visit Provider Emergency Medicine
DX: R19.7 Diarrhea, unspecified (principal); I13.0 Hypertensive heart and chronic kidney disease with heart failure and stage 1 through stage 4 chronic kidney disease, or unspecified chronic kidney disease; I50.22 Chronic systolic (congestive) heart failure; E11.22 Type 2 diabetes mellitus with diabetic chronic kidney disease; Z79.4 Long term (current) use of insulin; E78.5 Hyperlipidemia, unspecified; I25.10 Atherosclerotic heart disease of native coronary artery without angina pectoris; Z79.82 Long term (current) use of aspirin; Z86.73 Personal history of transient ischemic attack (TIA), and cerebral infarction without residual deficits; I25.2 Old myocardial infarction; N18.9 Chronic kidney disease, unspecified; Y93.89 Activity, other specified; W19.XXXA Unspecified fall, initial encounter; Z79.899 Other long term (current) drug therapy; F41.9 Anxiety disorder, unspecified; F32.A Depression, unspecified; Z95.5 Presence of coronary angioplasty implant and graft; Z95.1 Presence of aortocoronary bypass graft; F17.290 Nicotine dependence, other tobacco product, uncomplicated
CPT/HCPCS: 71046; 80048; 81001; 85025; 93005; 96374; 99285; A4216; J2405

== ENCOUNTER 2024-10-02 08:38 | Observation (INO) | payer MEDICARE, SELFPAY ==
[2019-03-06 08:28] VITALS: BMI 29.0
[2024-10-02 08:38] VITALS: BP 105/69; PULSE 92; RESP 16; TEMP 35.7; O2SAT 96; BMI 31.4
--- NOTE | 2024-10-02 08:48 | EKG12_ITS ---
Test Reason : CHEST PAIN Blood Pressure : */* mmHG Vent. Rate : 88 BPM Atrial Rate : 88 BPM P-R Int : 158 ms QRS Dur : 94 ms QT Int : 414 ms P-R-T Axes : 39 6 149 degrees QTcB Int : 500 ms Normal sinus rhythm Minimal voltage criteria for LVH, may be normal variant ( R in aVL ) Inferior infarct (cited on or before 11-Jan-2019) Abnormal ECG Confirmed by EDVIN TINEO, ZAK ([id number]), web content editor PB CHÁVEZ ([id number]) on 10/03/2024 11:05:15 AM Referred By: Confirmed By: ZAK PARDO MD
--- NOTE | 2024-10-02 08:49 | EDS_ITS ---
HPI History of Present Illness Chief Complaint: Nausea/Vomiting/Diarrhea Detail of Chief Complaint: Vomiting and diarrhea Informant: patient Narrative Narrative: Patient presents to the emergency department with complaint of vomiting and di arrhea that started yesterday. Frequent vomiting. Frequent watery stools. Complains of some sweats. Denies fever. Denies sick contacts. Denies recent travel. Patient coming from home. He denies chest pain. Had some mild shortness of breath but apparently EMS put oxygen on him and feels improved. Describes abdominal cramping and nausea. Denies urinary symptoms. Patient nonambulatory. [facility] Medical History Ambulatory dysfunction Chest pain Debility Generalized weakness Depression CKD (chronic kidney disease) stage 3, GFR 30-59 ml/min 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 Obesity Polyp of colon Systolic CHF GERD (gastroesophageal reflux disease) Ischemic cardiomyopathy Essential hypertension Hyperlipidemia Arteriosclerosis of coronary artery in patient with history of myocardial infarction STEMI (ST elevation myocardial infarction) (03/05/19) Type 2 diabetes mellitus CVA (cerebral vascular accident) Syncope and collapse Bradycardia Syncope Anxiety Noncompliance with diabetes treatment Back pain FLORY (acute kidney injury) Nonketotic hyperglycinemia Hematochezia Home Medications ?Medication ?Instructions ?Recorded ?Last Taken ?Type aspirin 81 mg chewable tablet 81 mg PO DAILY heart hea lth 03/10/19 09/09/24 History magnesium oxide 400 mg PO BID supplement 09/09/24 History cholecalciferol (vitamin D3) 50 50 mcg PO DAILY supple ment 09/27/19 09/09/24 History mcg (2,000 unit) tablet atorvastatin 80 mg tablet 80 mg PO QHS cholesterol 09/09/24 History nitroglycerin 0.4 mg sublingual 0.4 mg sublingual Q5M PRN Chest 09/12/20 Unknown History tablet Pain empagliflozin 10 mg tablet 10 mg PO DAILY diabetes 12/0209/09/24 History (Jardiance) duloxetine 60 mg capsule,delayed 120 mg PO DAILY depre ssion 11/23/23 09/09/24 History release (Cymbalta) insulin lispro 100 unit/mL 10 unit (0.1 mL) subcut TID AC 1 01/10/24 09/09/24 Rx subcutaneous pen (Humalog KwikPen month #15 mL
--- NOTE | 2024-10-02 08:49 | EX.ED.DYSGE1 ---
HPI History of Present Illness Chief Complaint: Nausea/Vomiting/Diarrhea Detail of Chief Complaint: Vomiting and diarrhea Informant: patient Narrative Narrative: Patient presents to the emergency department with complaint of vomiting and diarrhea that started yesterday. Frequent vomiting. Frequent watery stools. Complains of some sweats. Denies fever. Denies sick contacts. Denies recent travel. Patient coming from home. He denies chest pain. Had some mild shortness of breath but apparently EMS put oxygen on him and feels improved. Describes abdominal cramping and nausea. Denies urinary symptoms. Patient nonambulatory. 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 Obesity Polyp of colon Systolic CHF GERD (gastroesophageal reflux disease) Ischemic cardiomyopathy Essential hypertension Hyperlipidemia Arteriosclerosis of coronary artery in patient with history of myocardial infarction STEMI (ST elevation myocardial infarction) (03/05/19) Type 2 diabetes mellitus CVA (cerebral vascular accident) Syncope and collapse Bradycardia Syncope Anxiety Noncompliance with diabetes treatment Back pain FLORY (acute kidney injury) Nonketotic hyperglycinemia Hematochezia Home Medications ?Medication ?Instructions ?Recorded ?Last Taken ?Type aspirin 81 mg chewable tablet 81 mg PO DAILY heart health 03/10/19 09/09/24 History magnesium oxide 400 mg PO BID supplement 08/08/19 09/09/24 History cholecalciferol (vitamin D3) 50 50 mcg PO DAILY supplement 09/27/19 09/09/24 History mcg (2,000 unit) tablet atorvastatin 80 mg tablet 80 mg PO QHS cholesterol 11/26/19 09/09/24 History nitroglycerin 0.4 mg sublingual 0.4 mg sublingual Q5M PRN Chest 09/12/20 Unknown History tablet Pain empagliflozin 10 mg tablet 10 mg PO DAILY diabetes 11/17/22 09/09/24 History (Jardiance) duloxetine 60 mg capsule,delayed 120 mg PO DAILY depression 11/23/23 09/09/24 History release (Cymbalta) insulin lispro 100 unit/mL 10 unit (0.1 mL) subcut TIDAC 1 01/10/24 09/09/24 Rx subcutaneous pen (Humalog Kwik month #15 mL (U-100) Insulin) insulin lispro 100 unit/mL See Protocol subcut ACHS #0 mL 01/10/24 09/09/24 Rx subcutaneous pen (Humalog KwikPen (U-100) Insulin) carvedilol 6.25 mg tablet 6.25 mg PO BID heart #60 tabs 03/29/24 09/09/24 Rx sacubitril 24 mg-valsartan 26 mg 1 tab PO BID #60 tabs 03/29/24 09/09/24 Rx tablet (Entresto) hydrochlorothiazide 25 mg tablet 25 mg PO DAILY 09/11/24 09/09/24 History insulin glargine-yfgn 100 unit/mL 40 unit subcut BID 09/11/24 09/09/24 History (3 mL) subcutaneous pen ondansetron 4 mg disintegrating 4 mg PO Q6H PRN nausea and 09/11/24 Unknown Rx tablet vomiting #7 tabs Allergy/AdvReac Type Severity Reaction Status Date / Time etodolac Allergy Unknown Unknown Verified 10/02/24 08:41 nifedipine (From Adalat) Allergy Unknown Verified 10/02/24 08:41 Family History Father Heart disease Son Kidney disease Surgical History Hx of CABG History of coronary artery stent placement S/P coronary artery bypass graft x 4 (~08/03/19) Stented coronary artery (03/06/19) History of umbilical hernia repair History of back surgery History of lumbar fusion Social History household members: spouse Smoking Status: Current some day smoker tobacco type: pipe alcohol intake: never substance use type: does not use caffeine: No ROS ROS ED Review of Systems ROS Unobtainable: other Constitutional Constitutional ED: Reports lethargy; Denies chills, fever(s), sweats or weight loss Eyes Eyes: Denies blurry vision, change in vision or diplopia ENT ENT ED: Denies rhinorrhea or sore throat Cardiovascular Cardiovascular: Denies chest pain, orthopnea or racing heartbeat Respiratory/Chest Respiratory/Chest: Reports dyspnea and dyspnea on exertion; Denies cough, orthopnea or sputum Gastrointestinal Gastrointestinal: Reports diarrhea, nausea and vomiting; Denies abdominal pain Genitourinary Genitourinary ED: Denies dysuria, hematuria or urinary frequency Musculoskeletal Musculoskeletal: Denies arthralgias, back pain, myalgias or neck pain Integumentary Denies abscess, Abrasions or rash Neurologic Neurologic: Denies headache(s) or weakness Psychiatric Psychiatric: Denies anxiety, depression or suicidal thoughts Endocrine Endocrinology: Denies polydipsia, polyphagia or polyuria Hematologic/Lymphatic Hematologic/Lymphatic: Denies easy bleeding, easy bruising or lymphadenopathy Allergic/Immunologic Allergic/Immunologic ED: Denies mouth swelling, tongue swelling or urticaria EXAM Physical Exam Const Vital Signs: 10/02/24 08:38 10/02/24 10:38 Temperature 96.2 F L Temperature Source Axillary Pulse Rate 92 88 Respiratory Rate 16 14 Blood Pressure 105/69 137/75 H Blood Pressure Mean 81 95 Pulse Ox 96 98 Oxygen Delivery Method Room Air Room Air Positive well nourished and well developed General Appearance ED: well developed and NAD HEENT Reports TM's clear and moist mucous membranes normocephalic and atraumatic; Negative for trauma or tenderness Tympanic Membrane ED: Yes TM's clear Eyes PERRL and EOMs intact bilaterally General Eye ED: Negative for pale conjunctiva or scleral icterus Neck no lymphadenopathy, supple and no JVD General: Negative for tenderness Chest Wall inspection of chest normal and palpation of chest normal Chest: Negative for tenderness Resp normal respiratory effort and clear to auscultation bilaterally Effort and Inspection: Negative for respiratory distress or pain with movement Auscultation: Negative for rhonchi, wheezes or diminished lung sounds Cardio regular rate, regular rhythm, S1 normal heart sound, S2 normal heart sound and no murmurs Peripheral Pulses: pulses 2+ throughout GI normal to inspection, nondistended, normoactive bowel sounds, soft to palpation, non-tender, non-distended and no masses Back/Spine no CVA tenderness and no thoracic nor lumbar tenderness Extremity normal to inspection General Extremety ED: Negative for edema General Extremity: Negative for edema Neuro oriented x3, CN's II-XII intact bilaterally, no sensory deficits noted and gait normal Sensorium / Orientation: awake, alert, oriented to person, oriented to place and oriented to time Motor Exam: strength 5/5 throughout and strength abnormal Psych mental status grossly normal Skin no rashes or lesions noted and no wounds MDM MDM MDM Narrative Medical decision making narrative: Patient presents the emergency department with vomiting and diarrhea that started yesterday. Patient states that his cannot take care of him at home. Patient believes he needs to go to a group home. Describes some diffuse abdominal discomfort. IV line established on arrival. CBC with differential obtained showing a 16.1 with hemoglobin 15.7 and platelet count of 236. Chemistries unremarkable. BUN elevated at 36 and creatinine 2.01. LFTs unremarkable. CT scan of the abdomen pelvis showed sludge in the gallbladder otherwise no acute process. Case will be discussed with hospitalist to evaluate patient for admission for group home placement. Patient also with signs of acute kidney injury and dehydration. Suspect likely viral gastroenteritis. Lab Data Attestation: I reviewed the patient's lab results. Labs: Laboratory Results - last 24 hr 10/02/24 09:10 WBC 16.1 H RBC 5.22 Hgb 15.7 Hct 44.2 MCV 84.7 MCH 30.1 MCHC 35.5 RDW Std Deviation 39.7 RDW Coeff of Jr 12.9 Plt Count 236 MPV 11.0 Immature Gran % (Auto) 0.700 Neut % (Auto) 87.3 H Lymph % (Auto) 6.0 L Dickens % (Auto) 5.3 Eos % (Auto) 0.5 Baso % (Auto) 0.2 Absolute Neuts (auto) 14.1 H Absolute Lymphs (auto) 0.96 Nucleated RBC % 0 Sodium 134 Potassium 4.2 Chloride 90 L Carbon Dioxide 20.4 L Anion Gap 24 H BUN 36 H Creatinine 2.01 H Estim Creat Clear Calc 41.99 L Est GFR (MDRD) Non-Af 36 L BUN/Creatinine Ratio 18.1 Glucose 245 H Lactic Acid Cancelled Calcium 9.8 Total Bilirubin 0.92 AST 40 H ALT 17 Alkaline Phosphatase 106 Total Protein 6.9 Albumin 3.7 Globulin 3.2 Albumin/Globulin Ratio 1.1 Radiography Diagnostic Testing: Clinical Impression(s) from Imaging Studies Abdomen/Pelvis CT 10/02/24 10:50 IMPRESSION: Small amount of sludge seen along the dependent portion of the gallbladder lumen. No evidence of the ureteral obstruction. Atherosclerotic calcification of the abdominal aorta and major visceral branches. Reading Location: [id number] EKG Initial EKG: Attestation: I personally reviewed and interpreted this EKG as follows: Comments: Sinus rhythm with rate of 88 bpm with no acute ST segment changes Discharge Plan Triage Chief Complaint: Nausea/Vomiting/Diarrhea ED Provider: Ventura Llamas Dx/Rx/DC Orders Clinical Impression: Viral gastroenteritis, FLORY (acute kidney injury), Adult failure to thrive Prescriptions: No Action duloxetine [Cymbalta] 60 mg capsule,delayed release(DR/EC) 120 mg PO DAILY cholecalciferol (vitamin D3) 50 mcg (2,000 unit) tablet 50 mcg PO DAILY carvedilol 6.25 mg tablet 6.25 mg PO BID Qty: 60 3RF sacubitril-valsartan [Entresto] 24-26 mg tablet 1 tab PO BID Qty: 60 4RF aspirin 81 MG tablet,chewable 81 mg PO DAILY atorvastatin 80 MG tablet 80 mg PO QHS nitroglycerin 0.4 mg tablet, sublingual 0.4 mg sublingual Q5M PRN (Reason: Chest Pain) Patient Comments: Place 1 tablet under tongue as needed for Chest pain. max = 3 doses. If CP persists after 1st dose, call 911 Jardiance 10 mg tablet 10 mg PO DAILY insulin lispro [Humalog KwikPen Insulin] 100 unit/mL Insulin Pen 10 unit subcut TIDAC 30 Days Qty: 15 3RF Rx Instructions: Hold if glucose less than 130 mg/dl insulin lispro [Humalog KwikPen Insulin] 100 unit/mL Insulin Pen See Protocol subcut ACHS Qty: 0 0RF Protocol: 4. Sliding Scale Insulin High-Med Dosing Condition: 150-199 mg/dl = 2 units Condition: 200-259 mg/dl = 4 units Condition: 260-324 mg/dl = 6 units Condition: 325-374 mg/dl = 8 units Condition: 375-409 mg/dl = 10 units Condition: 410-449 mg/dl = 11 units Condition: Greater than 449 call physician Protocol Text: Suggested for: - Patients on Total Daily Insulin Dose of 56-80 units - Patient who are known to be insulin resistant or septic HIGH MEDIUM DOSING ALGORITHM insulin glargine-yfgn 100 unit/mL (3 mL) insulin pen 40 unit subcut BID hydrochlorothiazide 25 mg tablet 25 mg PO DAILY ondansetron 4 mg tablet,disintegrating 4 mg PO Q6H PRN (Reason: nausea and vomiting) Qty: 7 0RF magnesium oxide 400 mg magnesium capsule 400 mg PO BID Primary Care Provider: Chema Mckeon Referrals: Chema Mckeon DO [Primary Care Provider] - Print Language: Malagasy Disposition Disposition: Acute Care [facility]
[2024-10-02] MEDS: 0.9% Normal Saline (1000mL) 1,000 ML 1000 ML IV (09:21)
[2024-10-02] MEDS: Ondansetron 4 MG/2 ML Vial IV (09:21)
[2024-10-02 09:22] LABS: Absolute Lymphocyte Count 0.96 X10^3/uL (0.83-4.51); Absolute Neutrophil Count 14.1 X10^3/uL (2.0-7.7); Basophil# 0.04 X10^3/uL; Basophil% 0.2 % (0-1); Eosinophil# 0.08 X10^3/uL; Eosinophils% 0.5 % (0-5); Hematocrit 44.2 % (40-54); Hemoglobin 15.7 g/dL (13.0-16.5); Lymphocyte # 0.96 X10^3/ul (0.83-4.51); Mean Corp Hgb Conc 35.5 g/dL (32-36); Mean Corpuscular Hgb 30.1 pg (27.0-32.0); Mean Corpuscular Volume 84.7 fL (80-94); Monocyte# 0.85 X10^3/uL; Monocyte% 5.3 % (0-10); NRBC Flagged by Analyzer 0 % (0-5); Neutrophil # 14.09 X10^3/uL (2.7-7.7); Neutrophil % 87.3 % (47-70); Platelet Count 236 K/mm3 (150-450); RBC Distribution Width CV 12.9 % (11.6-14.6); RBC Distribution Width SD 39.7 fl (35.1-43.9); Red Blood Count 5.22 M/mm3 (4.6-6.2); White Blood Count 16.1 K/mm3 (4.4-11.0)
[2024-10-02 10:13] LABS: ALB/GLOB Ratio 1.1 RATIO (0.9-2.4); AST(SGOT) 40 U/L (<=37); Alanine Aminotransfer ALT/SGPT 17 U/L (<=46); Albumin, Serum 3.7 g/dL (3.4-4.8); Alkaline Phosphatase 106 U/L (40-129); Anion Gap 24 (5-15); BUN 36 mg/dL (4-19); BUN/Creat Ratio 18.1 RATIO (10-20); Calcium,Total 9.8 mg/dL (7.6-11.0); Carbon Dioxide 20.4 mmol/L (21.0-32.0); Chloride 90 mmol/L (98-108); Creatinine, Serum 2.01 mg/dL (0.70-1.20); EST Glomerular Filtration Rate 36 (>60); Estimated Creatinine Clearance 41.99 ml/min (50-250); Globulin 3.2 g/dL (2.2-4.2); Glucose 245 mg/dL (70-99); Potassium 4.2 mmol/L (3.3-5.1); Protein, Total 6.9 g/dL (5.9-8.4); Sodium Level 134 mmol/L (133-145); Total Bilirubin 0.92 mg/dL (0.00-1.30)
[2024-10-02 10:38] VITALS: BP 137/75; PULSE 88; RESP 14; O2SAT 98
--- NOTE | 2024-10-02 10:50 | CT_ITS ---
PROCEDURE: ABDOMEN/PELVIS WITHOUT CONT 10/02/2024 REASON FOR EXAM: ABDOMINAL PAIN History of nausea, vomiting and diarrhea. TECHNIQUE: ABDOMEN/PELVIS WITHOUT CONT Noncontrast technique limits evaluation of the abdominal and pelvic viscera. Coronal and Sagittal reconstruction series were provided. One or more dose reduction techniques were used (e.g., Automated exposure control, adjustment of the mA and/or kV according to patient size, use of iterative reconstruction technique). Radiation dose report: CTDI L volume: 21.46 mGy. DLP: 1206.5 mGy. COMPARISON: Prior study dated September 13, 2023. FINDINGS: Lung bases: Mild dependent atelectasis coronary artery calcification. Prior midline sternotomy and coronary artery bypass surgery. Liver: Normal size. No obvious mass. Gallbladder: Small amount of sludge within the dependent portion of the gallbladder lumen. Spleen: Pancreas: Diffuse fatty atrophy. Adrenals: Unremarkable Kidneys: No urolithiasis. No hydronephrosis. Bladder: Mild degree of bladder distention. Reproductive Organs: Bowel: Appendix: Lymph nodes: No suspicious lymph node enlargement. Vasculature: Mild diffuse atherosclerotic calcifications are noted. Atherosclerotic calcification of the visceral branches of the abdominal aorta. Peritoneum / Retroperitoneum: Unremarkable Bones: Prior fusion at the L4-L5 and L5-S1 levels. CT/Abdomen/Pelvis without Cont IMPRESSION: Small amount of sludge seen along the dependent portion of the gallbladder lume n. No evidence of the ureteral obstruction. Atherosclerotic calcification of the abdominal aorta and major visceral branche s. Reading Location: [id number]
[2024-10-02 11:45] VITALS: BP 168/105; PULSE 87; RESP 16; TEMP 36.8; O2SAT 100
--- NOTE | 2024-10-02 12:13 | PCM.HP.STD ---
[facility] - General General Date of Service: 10/02/24 Chief Complaint: Nausea vomiting diarrhea HPI Narrative NELSY ROGERS, is a 63 M who presents with 3 days of nausea, vomiting and diarrhea. He states that he normally has nausea but is able to eat.. Patient has not walked and has been in a wheelchair. He denies any antecedent trauma for this. Presented to the emergency room because of his symptoms and felt that he needed to go to a detention. In the emergency room it was noted that he had FLORY with a creatinine of 2.01. He did receive IV fluids as well as ondansetron. I did undergo CT of his abdomen pelvis that showed small-moderate sludge seen in the dependent portion of the gallbladder lumen. No other acute process noted. Given the patient's intractable symptoms, his debility, the hospital service was contacted for admission. 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 Obesity Polyp of colon Systolic CHF GERD (gastroesophageal reflux disease) Ischemic cardiomyopathy Essential hypertension Hyperlipidemia Arteriosclerosis of coronary artery in patient with history of myocardial infarction STEMI (ST elevation myocardial infarction) (03/05/19) Type 2 diabetes mellitus CVA (cerebral vascular accident) Syncope and collapse Bradycardia Syncope Anxiety Noncompliance with diabetes treatment Back pain FLORY (acute kidney injury) Nonketotic hyperglycinemia Hematochezia Home Medications ?Medication ?Instructions ?Recorded ?Last Taken ?Type aspirin 81 mg chewable tablet 81 mg PO DAILY heart health 03/10/19 09/09/24 History magnesium oxide 400 mg PO BID supplement 08/08/19 09/09/24 History cholecalciferol (vitamin D3) 50 50 mcg PO DAILY supplement 09/27/19 09/09/24 History mcg (2,000 unit) tablet atorvastatin 80 mg tablet 80 mg PO QHS cholesterol 11/26/19 09/09/24 History nitroglycerin 0.4 mg sublingual 0.4 mg sublingual Q5M PRN Chest 09/12/20 Unknown History tablet Pain empagliflozin 10 mg tablet 10 mg PO DAILY diabetes 11/17/22 09/09/24 History (Jardiance) duloxetine 60 mg capsule,delayed 120 mg PO DAILY depression 11/23/23 09/09/24 History release (Cymbalta) insulin lispro 100 unit/mL 10 unit (0.1 mL) subcut TIDAC 1 01/10/24 09/09/24 Rx subcutaneous pen (Humalog KwikPen month #15 mL (U-100) Insulin) insulin lispro 100 unit/mL See Protocol subcut ACHS #0 mL 01/10/24 09/09/24 Rx subcutaneous pen (Humalog KwikPen (U-100) Insulin) carvedilol 6.25 mg tablet 6.25 mg PO BID heart #60 tabs 03/29/24 09/09/24 Rx sacubitril 24 mg-valsartan 26 mg 1 tab PO BID #60 tabs 03/29/24 09/09/24 Rx tablet (Entresto) hydrochlorothiazide 25 mg tablet 25 mg PO DAILY 09/11/24 09/09/24 History insulin glargine-yfgn 100 unit/mL 40 unit subcut BID 09/11/24 09/09/24 History (3 mL) subcutaneous pen ondansetron 4 mg disintegrating 4 mg PO Q6H PRN nausea and 09/11/24 Unknown Rx tablet vomiting #7 tabs Allergy/AdvReac Type Severity Reaction Status Date / Time etodolac Allergy Unknown Unknown Verified 10/02/24 08:41 nifedipine (From Adalat) Allergy Unknown Verified 10/02/24 08:41 Family History Father Heart disease Son Kidney disease Surgical History Hx of CABG History of coronary artery stent placement S/P coronary artery bypass graft x 4 (~08/03/19) Stented coronary artery (03/06/19) History of umbilical hernia repair History of back surgery History of lumbar fusion Social History household members: spouse Smoking Status: Current some day smoker tobacco type: pipe alcohol intake: never substance use type: does not use caffeine: No ROS ROS Narrative Complains of sores on his feet. Wheelchair dependent or uses a scooter to get around. Does not walk. All review of systems were negative except as mentioned above in the history of present illness and the other review of systems. Vital Signs Vital Signs Vital Signs: 10/02/24 08:38 10/02/24 10:38 10/02/24 11:45 Temperature 35.7 C L 36.8 C Temperature Source Axillary Pulse Rate 92 88 87 Respiratory Rate 16 14 16 Blood Pressure 105/69 137/75 H 168/105 H Blood Pressure Mean 81 95 126 Pulse Ox 96 98 100 Oxygen Delivery Method Room Air Room Air Weight Weight: 96.5 kg Body Mass Index (BMI) 31.4 Physical Exam Const alert and no apparent distress General Appearance: cooperative HEENT normocephalic Resp normal respiratory effort, no retractions, no use of accessory muscles and clear to auscultation bilaterally Cardio regular rate, regular rhythm, S1 normal heart sound and S2 normal heart sound GI GI Narrative: Slightly tender. Nondistended. No hepatosplenomegaly. Extremity Extremity Narrative: Has large callus over the left lateral portion of his foot. No heel lesions no lesions noted on the plantar aspect of his feet. Skin Skin Narrative: Numerous tattoos. No rashes or sores. Neuro Sensorium / Orientation: awake and alert Psych affect normal Results Lab / Micro Data 10/02/24 09:10 10/02/24 09:10 Labs: Laboratory Results - last 24 hr 10/02/24 09:10: WBC 16.1 H, RBC 5.22, Hgb 15.7, Hct 44.2, MCV 84.7, MCH 30.1, MCHC 35.5, RDW Std Deviation 39.7, RDW Coeff of Jr 12.9, Plt Count 236, MPV 11.0, Immature Gran % (Auto) 0.700, Neut % (Auto) 87.3 H, Lymph % (Auto) 6.0 L, Marshall % (Auto) 5.3, Eos % (Auto) 0.5, Baso % (Auto) 0.2, Absolute Neuts (auto) 14.1 H, Absolute Lymphs (auto) 0.96, Nucleated RBC % 0, Sodium 134, Potassium 4.2, Chloride 90 L, Carbon Dioxide 20.4 L, Anion Gap 24 H, BUN 36 H, Creatinine 2.01 H, Estim Creat Clear Calc 41.99 L, Est GFR (MDRD) Non-Af 36 L, BUN/Creatinine Ratio 18.1, Glucose 245 H, Lactic Acid Cancelled, Calcium 9.8, Total Bilirubin 0.92, AST 40 H, ALT 17, Alkaline Phosphatase 106, Total Protein 6.9, Albumin 3.7, Globulin 3.2, Albumin/Globulin Ratio 1.1 10/02/24 10:38: Lactic Acid Cancelled Imaging Radiology Impression Abdomen/Pelvis CT 10/02/24 10:50 IMPRESSION: Small amount of sludge seen along the dependent portion of the gallbladder lumen. No evidence of the ureteral obstruction. Atherosclerotic calcification of the abdominal aorta and major visceral branches. Reading Location: [id number] Assessment & Plan Assessment/Plan (1) FLORY (acute kidney injury): PLAN: On chronic kidney disease. Continue with IV fluids. Likely prerenal. No need for renal replacement therapy at this time. Will continue to monitor. (2) Nausea & vomiting: PLAN: And diarrhea. Possible viral gastroenteritis with this going on for few days without improvement. Chronically has nausea. With patient having diabetes with a concern about gastroparesis. Will treat supportively for now but if it seems to persist I would recommend getting a gastric emptying study. (3) Debility: PLAN: Patient has been wheelchair-bound. Sounds more like functional paraplegia. Will have PT OT evaluate him. He is already expressed reservations about working with them. Encouraged him to work with therapies so that we can look into Ly some short-term rehab as an option. Patient states that his is unable to care for him. PLAN: Plan Chronic conditions Diabetes mellitus type 2: Since only be on clears for now we will hold off on his scheduled insulins with lispro and glargine. Sliding scale insulin. CAD: Currently stable. Continue with aspirin and atorvastatin and carvedilol. VTE prophylaxis with heparin. Charges/Coding Visit Charges Inpatient E&M: 89111 Init Hosp L3
[2024-10-02 12:58] LABS: Lactic Acid 2.1 mmol/L (0.0-2.0)
[2024-10-02] MEDS: 0.9% Normal Saline (1000mL) 1,000 ML 150 ML IV ×2 (13:20→20:08)
[2024-10-02 13:24] VITALS: BMI 31.4
[2024-10-02 13:30] VITALS: BP 134/79; PULSE 84; RESP 18; TEMP 36.6; O2SAT 96
[2024-10-02] MEDS: proCHLORPERazine 10 MG/2 ML Vial 5 MG IV ×2 (13:48→20:13)
[2024-10-02 14:01] LABS: Bedside Glucose 230 mg/dL (74-106)
[2024-10-02] MEDS: Insulin Lispro 100 UNIT/ML INSULN.PEN SC ×2 (14:23→16:22)
[2024-10-02 16:19] LABS: Reflex Lactate? Y
[2024-10-02] MEDS: Carvedilol 6.25 MG Tablet PO (16:22)
[2024-10-02 16:27] VITALS: BP 141/70; PULSE 82; RESP 18; TEMP 37.2; O2SAT 99
[2024-10-02 16:47] LABS: Bedside Glucose 232 mg/dL (74-106)
[2024-10-02 18:01] LABS: Lactic Acid 3.2 mmol/L (0.0-2.0)
[2024-10-02 20:20] VITALS: BP 142/77; PULSE 80; RESP 15; TEMP 36.7; O2SAT 97
[2024-10-02] MEDS: Heparin Injection (Vial) 5,000 UNIT/ML VIAL 5000 UNIT SC (20:25)
[2024-10-02 22:06] LABS: Bedside Glucose 132 mg/dL (74-106)
[2024-10-03 02:22] VITALS: BP 155/87; PULSE 73; RESP 15; TEMP 36.9; O2SAT 98
[2024-10-03] MEDS: proCHLORPERazine 10 MG/2 ML Vial 5 MG IV (02:28)
[2024-10-03] MEDS: 0.9% Normal Saline (1000mL) 1,000 ML 150 ML IV ×2 (02:28→09:28)
[2024-10-03] MEDS: Ondansetron 4 MG/2 ML Vial IV (06:22)
[2024-10-03 06:29] LABS: Absolute Lymphocyte Count 1.11 X10^3/uL (0.83-4.51); Absolute Neutrophil Count 8.5 X10^3/uL (2.0-7.7); Basophil# 0.04 X10^3/uL; Basophil% 0.4 % (0-1); Eosinophil# 0.13 X10^3/uL; Eosinophils% 1.2 % (0-5); Hemoglobin 13.7 g/dL (13.0-16.5); Lymphocyte # 1.11 X10^3/ul (0.83-4.51); Lymphocyte % 10.4 % (19-41); Mean Corp Hgb Conc 34.3 g/dL (32-36); Mean Corpuscular Hgb 30.1 pg (27.0-32.0); Mean Corpuscular Volume 87.9 fL (80-94); Mean Platelet Vol. 11.2 fl (6.2-12.0); Monocyte# 0.83 X10^3/uL; Monocyte% 7.8 % (0-10); NRBC Flagged by Analyzer 0 % (0-5); Neutrophil # 8.48 X10^3/uL (2.7-7.7); Neutrophil % 79.4 % (47-70); Platelet Count 175 K/mm3 (150-450); RBC Distribution Width CV 12.9 % (11.6-14.6); RBC Distribution Width SD 41.7 fl (35.1-43.9); Red Blood Count 4.55 M/mm3 (4.6-6.2); White Blood Count 10.7 K/mm3 (4.4-11.0)
[2024-10-03 06:47] LABS: Anion Gap 11 (5-15); BUN 25 mg/dL (4-19); BUN/Creat Ratio 17.2 RATIO (10-20); Calcium,Total 8.6 mg/dL (7.6-11.0); Carbon Dioxide 26.7 mmol/L (21.0-32.0); Chloride 100 mmol/L (98-108); Creatinine, Serum 1.44 mg/dL (0.70-1.20); EST Glomerular Filtration Rate 54 (>60); Estimated Creatinine Clearance 58.61 ml/min (50-250); Glucose 116 mg/dL (70-99); Potassium 3.4 mmol/L (3.3-5.1); Sodium Level 138 mmol/L (133-145)
[2024-10-03 06:57] LABS: Bedside Glucose 122 mg/dL (74-106)
--- NOTE | 2024-10-03 07:24 | PCM.PN.HOSP ---
Reason for Visit Reason for Visit: Diagnoses Acute kidney failure, unspecified (10/02/24) Nausea with vomiting, unspecified (10/02/24) Other malaise (10/02/24) Subjective Subjective Feeling better. Objective Data Objective Data Vital Signs: Vital Signs Temp Pulse Resp BP Pulse Ox O2 Del Method 36.9 C 73 15 155/87 H 98 Room Air 10/03/24 02:22 10/03/24 02:22 10/03/24 02:22 10/03/24 02:22 10/03/24 02:22 10/03/24 02:22 Oxygen Delivery Method Room Air Weight: 96.5 kg Body Mass Index (BMI) 31.4 Intake & Output: Intake and Output for Last 24 Hours 10/01/24 10/02/24 10/03/24 23:59 23:59 23:59 Intake Total 2700 / 2700 1250 / 1250 Output Total 300 / 800 1300 / 1300 Balance 2400 / 1900 -50 / -50 Lab / Micro Data 10/03/24 05:22 10/03/24 05:22 Labs: Laboratory Results - last 24 hr 10/02/24 09:10: WBC 16.1 H, RBC 5.22, Hgb 15.7, Hct 44.2, MCV 84.7, MCH 30.1, MCHC 35.5, RDW Std Deviation 39.7, RDW Coeff of Jr 12.9, Plt Count 236, MPV 11.0, Immature Gran % (Auto) 0.700, Neut % (Auto) 87.3 H, Lymph % (Auto) 6.0 L, [place] % (Auto) 5.3, Eos % (Auto) 0.5, Baso % (Auto) 0.2, Absolute Neuts (auto) 14.1 H, Absolute Lymphs (auto) 0.96, Nucleated RBC % 0, Sodium 134, Potassium 4.2, Chloride 90 L, Carbon Dioxide 20.4 L, Anion Gap 24 H, BUN 36 H, Creatinine 2.01 H, Estim Creat Clear Calc 41.99 L, Est GFR (MDRD) Non-Af 36 L, BUN/Creatinine Ratio 18.1, Glucose 245 H, Lactic Acid Cancelled, Calcium 9.8, Total Bilirubin 0.92, AST 40 H, ALT 17, Alkaline Phosphatase 106, Total Protein 6.9, Albumin 3.7, Globulin 3.2, Albumin/Globulin Ratio 1.1 10/02/24 10:38: Lactic Acid Cancelled 10/02/24 12:15: Lactic Acid 2.1 H* 10/02/24 13:22: POC Glucose 230 H 10/02/24 16:21: POC Glucose 232 H 10/02/24 16:41: Lactic Acid 3.2 H* 10/02/24 21:46: POC Glucose 132 H 10/03/24 05:22: WBC 10.7, RBC 4.55 L, Hgb 13.7, Hct 40.0, MCV 87.9, MCH 30.1, MCHC 34.3, RDW Std Deviation 41.7, RDW Coeff of Jr 12.9, Plt Count 175, MPV 11.2, Immature Gran % (Auto) 0.800, Neut % (Auto) 79.4 H, Lymph % (Auto) 10.4 L, [place] % (Auto) 7.8, Eos % (Auto) 1.2, Baso % (Auto) 0.4, Absolute Neuts (auto) 8.5 H, Absolute Lymphs (auto) 1.11, Nucleated RBC % 0, Sodium 138, Potassium 3.4, Chloride 100, Carbon Dioxide 26.7, Anion Gap 11, BUN 25 H, Creatinine 1.44 H, Estim Creat Clear Calc 58.61, Est GFR (MDRD) Non-Af 54 L, BUN/Creatinine Ratio 17.2, Glucose 116 H, Calcium 8.6 10/03/24 06:19: POC Glucose 122 H Radiography Diagnostic Testing: Radiology Impression Abdomen/Pelvis CT 10/02/24 10:50 IMPRESSION: Small amount of sludge seen along the dependent portion of the gallbladder lumen. No evidence of the ureteral obstruction. Atherosclerotic calcification of the abdominal aorta and major visceral branches. Reading Location: [facility] Physical Exam Const alert and no apparent distress HEENT head/scalp atraumatic and moist oral mucous membranes Resp normal respiratory effort, no retractions, no use of accessory muscles and clear to auscultation bilaterally Cardio regular rate, regular rhythm, S1 normal heart sound and S2 normal heart sound GI normal to inspection, nondistended, normoactive bowel sounds, soft to palpation, non-tender and non-distended Extremity normal to inspection and full ROM Neuro Sensorium / Orientation: awake and alert Assessment & Plan Assessment/Plan (1) FLORY (acute kidney injury): PLAN: On chronic kidney disease. Improving with IVF, back to around his baseline. Likely prerenal. (2) Nausea & vomiting: PLAN: Improved. And diarrhea. Possible viral gastroenteritis with this going on for few days without improvement. Chronically has nausea, however. With patient having diabetes with a concern about gastroparesis. Will treat supportively for now but if it seems to persist I would recommend getting a gastric emptying study. (3) Debility: PLAN: Patient has been wheelchair-bound. Sounds more like functional paraplegia. Will have PT OT evaluate him. He is already expressed reservations about working with them. Encouraged him to work with therapies so that we can look into Ly some short-term rehab as an option. Patient states that his is unable to care for him. Encouraged patient to work with therapy to determine if he has room for optimization. PLAN: Plan Chronic conditions Diabetes mellitus type 2: Since only be on clears for now we will hold off on his scheduled insulins with lispro and glargine. Sliding scale insulin. CAD: Currently stable. Continue with aspirin and atorvastatin and carvedilol. VTE prophylaxis with heparin. Dispo: pending approval from [facility] and insurance authorization. Charges/Coding Visit Charges Inpatient E&M: 10030 Subs Hosp L2
[2024-10-03 07:29] LABS: Hemoglobin A1c 7.9 % (<=5.6)
[2024-10-03] MEDS: Aspirin 81 MG TAB.CHEW PO (07:59)
[2024-10-03] MEDS: Carvedilol 6.25 MG Tablet PO ×2 (07:59→16:36)
[2024-10-03] MEDS: DULoxetine Hcl 60 MG Capsule 120 MG PO (07:59)
[2024-10-03] MEDS: Cholecalciferol (VIT D3) 25 MCG TABLET (1,000 UNITS) 50 MCG PO (07:59)
[2024-10-03] MEDS: Empagliflozin 10 MG Tablet PO (08:00)
[2024-10-03] MEDS: Heparin Injection (Vial) 5,000 UNIT/ML VIAL 5000 UNIT SC ×2 (08:00→20:37)
[2024-10-03 08:50] VITALS: BP 161/74; PULSE 74; RESP 16; TEMP 36.7; O2SAT 94
--- NOTE | 2024-10-03 10:10 | CASEMGMT ---
STEPHANIE LEMON Assessment: Face to Face with pt for initial transition planning/care coordination assessment. STEPHANIE LEMON introduced self and role at [facility], pt voices understanding and consents to assessment. Pt is A&O x4 and answers all questions appropriately at this time. Pt sitting up in bed in no distress. Care providers, pharmacy, and demographics verified/updated. Admitting Dx: FLORY Strata Score: 3 PCP:Mike Specialists:Denies Preferred Pharmacy:[facility] Insurance: [facility] Prescription Benefit: yes LNOK: Karen Munoz, ; Vanesa Reza, dtr Living Arrangements: Pt lives with in a two story home with FFSU and a ramp to enter. Pt reports his helps with all ADL/IADLs and he cannot walk. Pt states he and his has spoken together and she cannot care for him. Transportation: Pt does not drive, pt transports him to medical appts. DME:rollator, shower chair, w/c, scooter, BGM and insulin with sufficient supply. HHC/SNF: Denies hx of HHC, pt has been to [facility] in the past. Pt states he would like to go back to [facility]. He states that he does not want a list of other options unless they do not accept him. Pt states no further concerns/needs. CM to follow. Advised pt to ask CM if any further questions/concerns/needs arise, voices understanding. Pt Goal: [facility] SNF Plan: [facility] SNF pending acceptance and precert Updated SW. Leo BROWN CM
--- NOTE | 2024-10-03 10:26 | CASEMGMT ---
Addendum entered by Chelsea Akhtar 10/03/24 10:45: [facility] has accepted and will submit for precert. SW updated. Chelsea Akhtar DC Planning Asst. Original Note: Discharge Planning Referral sent to [facility]. Chelsea Akhtar DC Planning Asst
--- NOTE | 2024-10-03 10:29 | CASEMGMT ---
Addendum entered by Geno Mayen 10/03/24 11:35: [facility] accepted and precert started. Pt updated. SW remains available to follow. AVANI Vickers Original Note: Social Work- Pt reports that he would like SNF referral. A list of SNF providers including quality and resource use data and consistent with the patient?s preferred geographic region, medical needs, and insurance network were provided from the [facility] Guide. Pt selected [facility]. DCA notified of referral request. AVANI Vickers
[2024-10-03] MEDS: Insulin Lispro 100 UNIT/ML INSULN.PEN SC ×3 (11:07→23:03)
[2024-10-03 11:23] VITALS: BP 153/72; PULSE 74; RESP 16; TEMP 36.8; O2SAT 97
[2024-10-03 11:34] LABS: Bedside Glucose 199 mg/dL (74-106)
--- NOTE | 2024-10-03 15:07 | CHAPLAIN ---
Type of Pastoral Visit _x__ Initial Visit ___ Follow-up Visit ___ On-call Visit ___ General Patient Visit ___ Spiritual Assessment ___ Family Conference ___ Bereavement ___ Rapid Response ___ Code Blue ___ Other (describe below) Pastoral Care Referral From _x__ Patient ___ Family ___ Nurse ___ Physician ___ Mission Worker ___ Community Representative ___ Other (describe below) Sacrament/Intervention _x__ Active listening ___ Anointing ___ Lutheran ___ Bereavement ___ Communion _x__ Padmini exploration ___ _x__ Life review _x__ Prayer ___ Reconciliation ___ Sacrament of Sick _x__ Supportive presence ___ Wedding ___ Other (describe below) Pastoral Comments patient has been seen before and patient said that he requested a visit again this time so he can see this coding support specialist and have a talk; pt gives update and an explanation of his current situation and needs; pt is expecting to go to a rehab for therapy help; pt talks about how he is coping and what his concerns are about the future; pt does have a spouse that helps at home; pt welcomes a prayer for support also; pt is tearful at a few moments in the conversation
[2024-10-03 15:15] VITALS: BP 146/79; PULSE 75; RESP 16; TEMP 36.6; O2SAT 97
[2024-10-03 16:55] LABS: Bedside Glucose 209 mg/dL (74-106)
[2024-10-03 20:36] VITALS: BP 157/78; PULSE 74; RESP 15; TEMP 36.4; O2SAT 98
[2024-10-03] MEDS: Atorvastatin Calcium 80 MG Tablet PO (20:37)
[2024-10-03] MEDS: Insulin Glargine-YFGN 100 UNIT/ML Pen 40 UNIT SC (23:04)
[2024-10-03 23:25] LABS: Bedside Glucose 224 mg/dL (74-106)
[2024-10-04] MEDS: 0.9% Saline Lock 10 ML Syringe IV (04:36)
[2024-10-04] MEDS: Ondansetron 4 MG/2 ML Vial IV (04:36)
[2024-10-04 04:45] VITALS: BP 180/86; PULSE 76; RESP 15; TEMP 36.7; O2SAT 96
[2024-10-04 05:38] LABS: Absolute Lymphocyte Count 0.95 X10^3/uL (0.83-4.51); Absolute Neutrophil Count 6.8 X10^3/uL (2.0-7.7); Basophil# 0.06 X10^3/uL; Basophil% 0.7 % (0-1); Eosinophil# 0.21 X10^3/uL; Eosinophils% 2.4 % (0-5); Hematocrit 38.8 % (40-54); Hemoglobin 13.6 g/dL (13.0-16.5); Lymphocyte # 0.95 X10^3/ul (0.83-4.51); Lymphocyte % 10.7 % (19-41); Mean Corp Hgb Conc 35.1 g/dL (32-36); Mean Corpuscular Volume 85.7 fL (80-94); Mean Platelet Vol. 10.6 fl (6.2-12.0); Monocyte# 0.69 X10^3/uL; Monocyte% 7.8 % (0-10); NRBC Flagged by Analyzer 0 % (0-5); Neutrophil # 6.82 X10^3/uL (2.7-7.7); Neutrophil % 77.2 % (47-70); Platelet Count 161 K/mm3 (150-450); RBC Distribution Width CV 12.6 % (11.6-14.6); RBC Distribution Width SD 39.2 fl (35.1-43.9); Red Blood Count 4.53 M/mm3 (4.6-6.2); White Blood Count 8.8 K/mm3 (4.4-11.0)
[2024-10-04 06:40] LABS: Anion Gap 11 (5-15); BUN 20 mg/dL (4-19); BUN/Creat Ratio 17.7 RATIO (10-20); Calcium,Total 8.6 mg/dL (7.6-11.0); Carbon Dioxide 24.4 mmol/L (21.0-32.0); Chloride 102 mmol/L (98-108); Creatinine, Serum 1.15 mg/dL (0.70-1.20); EST Glomerular Filtration Rate 71 (>60); Estimated Creatinine Clearance 73.39 ml/min (50-250); Glucose 86 mg/dL (70-99); Potassium 3.3 mmol/L (3.3-5.1); Sodium Level 137 mmol/L (133-145)
[2024-10-04 07:05] LABS: Bedside Glucose 77 mg/dL (74-106)
--- NOTE | 2024-10-04 07:30 | PCM.PN.HOSP ---
Reason for Visit Reason for Visit: Diagnoses Acute kidney failure, unspecified (10/02/24) Nausea with vomiting, unspecified (10/02/24) Other malaise (10/02/24) Subjective Subjective Feeling well. Eating well. No further events. Objective Data Objective Data Vital Signs: Vital Signs Temp Pulse Resp BP Pulse Ox O2 Del Method 36.7 C 76 15 180/86 H 96 Room Air 10/04/24 04:45 10/04/24 04:45 10/04/24 04:45 10/04/24 04:45 10/04/24 04:45 10/04/24 04:45 Oxygen Delivery Method Room Air Weight: 96.5 kg Body Mass Index (BMI) 31.4 Intake & Output: Intake and Output for Last 24 Hours 10/02/24 10/03/24 10/04/24 23:59 23:59 23:59 Intake Total 2700 / 2700 3687.5 / 3687.5 Output Total 300 / 800 1300 / 1300 500 / 500 Balance 2400 / 1900 2387.5 / 2387.5 -500 / -500 Lab / Micro Data 10/04/24 05:26 10/04/24 05:26 Labs: Laboratory Results - last 24 hr 10/03/24 11:06: POC Glucose 199 H 10/03/24 16:34: POC Glucose 209 H 10/03/24 23:02: POC Glucose 224 H 10/04/24 05:26: WBC 8.8, RBC 4.53 L, Hgb 13.6, Hct 38.8 L, MCV 85.7, MCH 30.0, MCHC 35.1, RDW Std Deviation 39.2, RDW Coeff of Jr 12.6, Plt Count 161, MPV 10.6, Immature Gran % (Auto) 1.200 H, Neut % (Auto) 77.2 H, Lymph % (Auto) 10.7 L, [place] % (Auto) 7.8, Eos % (Auto) 2.4, Baso % (Auto) 0.7, Absolute Neuts (auto) 6.8, Absolute Lymphs (auto) 0.95, Nucleated RBC % 0, Sodium 137, Potassium 3.3, Chloride 102, Carbon Dioxide 24.4, Anion Gap 11, BUN 20 H, Creatinine 1.15, Estim Creat Clear Calc 73.39, Est GFR (MDRD) Non-Af 71, BUN/Creatinine Ratio 17.7, Glucose 86, Calcium 8.6 10/04/24 06:45: POC Glucose 77 Physical Exam Const alert and no apparent distress HEENT head/scalp atraumatic and moist oral mucous membranes Resp normal respiratory effort, no retractions, no use of accessory muscles and clear to auscultation bilaterally Cardio regular rate, regular rhythm, S1 normal heart sound and S2 normal heart sound GI normal to inspection, nondistended, normoactive bowel sounds, soft to palpation, non-tender and non-distended Extremity normal to inspection Assessment & Plan Assessment/Plan (1) FLORY (acute kidney injury): PLAN: Resolved w IVF. Likely prerenal. (2) Nausea & vomiting: PLAN: Improved. And diarrhea. Possible viral gastroenteritis with this going on for few days without improvement. Chronically has nausea, however. With patient having diabetes with a concern about gastroparesis. Will treat supportively for now but if it seems to persist I would recommend getting a gastric emptying study. (3) Debility: PLAN: Patient has been wheelchair-bound. Sounds more like functional paraplegia. Will have PT OT evaluate him. He is already expressed reservations about working with them. Encouraged him to work with therapies so that we can look into Ly some short-term rehab as an option. Patient states that his is unable to care for him. Encouraged patient to work with therapy to determine if he has room for optimization. PLAN: Plan Chronic conditions Diabetes mellitus type 2: Back on glargine. Continue SSI. CAD: Currently stable. Continue with aspirin and atorvastatin and carvedilol. VTE prophylaxis with heparin. Dispo: To [facility] today
[2024-10-04] MEDS: DULoxetine Hcl 60 MG Capsule 120 MG PO (08:34)
[2024-10-04] MEDS: Carvedilol 6.25 MG Tablet PO (08:34)
[2024-10-04] MEDS: Aspirin 81 MG TAB.CHEW PO (08:34)
[2024-10-04] MEDS: Cholecalciferol (VIT D3) 25 MCG TABLET (1,000 UNITS) 50 MCG PO (08:35)
[2024-10-04] MEDS: Empagliflozin 10 MG Tablet PO (08:35)
[2024-10-04] MEDS: Heparin Injection (Vial) 5,000 UNIT/ML VIAL 5000 UNIT SC (08:35)
[2024-10-04] MEDS: Insulin Glargine-YFGN 100 UNIT/ML Pen 40 UNIT SC (08:40)
--- NOTE | 2024-10-04 08:42 | CASEMGMT ---
Discharge Planning [facility] has obtained auth to admit. SW updated. Chelsea Akhtar DC Planning Asst.
[2024-10-04 09:00] VITALS: BP 166/81; PULSE 73; RESP 18; TEMP 36.6; O2SAT 97
[2024-10-04 09:08] LABS: Bedside Glucose 102 mg/dL (74-106)
--- NOTE | 2024-10-04 10:25 | TREXTCAR_ITS ---
Diet Diet Order/Speech Therapy: INPATIENT Hospital Diet / Speech Therapy Order(s) 10/03/24 10:27 Diet: Consistent Carb - Calorie Controlled How many daily calories?: 1999 calorie Routine Orders/Code Status Code Status: Full Code DC O2, CPAP, BIPAP needs Home O2 Discharge instructions: No Wound(s) top right foot: Wound Type: scabs left outer foot: Wound Type: callouse briana lower leges: Wound Type: healing scabs - in various stages coccyx: Wound Type: large skin tag Therapies Physical Therapy: Eval and Treat Occupational Therapy: Eval and Treat Problem/Diagnosis (1) FLORY (acute kidney injury): Status: Acute Code(s): N17.9 - Acute kidney failure, unspecified Plan: Resolved w IVF. Likely prerenal. (2) Nausea & vomiting: Status: Inactive Code(s): R11.2 - Nausea with vomiting, unspecified Plan: Improved. And diarrhea. Possible viral gastroenteritis with this going on for few days without improvement. Chronically has nausea, however. With patient having diabetes with a concern about gastroparesis. Will treat supportively for now but if it seems to persist I would recommend getting a gastric emptying study. (3) Debility: Status: Chronic Code(s): R53.81 - Other malaise Plan: Patient has been wheelchair-bound. Sounds more like functional paraplegia. Will have PT OT evaluate him. He is already expressed reservations about working with them. Encouraged him to work with therapies so that we can look into Ly some short-term rehab as an option. Patient states that his is unable to care for him. Encouraged patient to work with therapy to determine if he has room for optimization. Plan Chronic conditions * Diabetes mellitus type 2: Back on glargine. Continue SSI. * CAD: Currently stable. Continue with aspirin and atorvastatin and carvedilol. VTE prophylaxis with heparin. Dispo: To [facility] today Allergies/Procedures Done in Hospital Allergies etodolac Allergy (Unknown, Verified 10/02/24 08:41) Unknown nifedipine (From Adalat) Allergy (Verified 10/02/24 08:41) Unknown Procedures: None Type of Care/Length of Stay Estimated LOS: Convalescent Care Less Than 30 days Type of Care Needed: Skilled Rehab Potential: Fair Prognosis: Good Additional Orders/Day of Discharge Day of Discharge: 10/04/24 Dietary and Speech Recommendations Dietitian Recommendations/Changes: Will adjust diet to 1800CCD diet to manage blood sugars. Discharge Plan Admission Admit Date/Time: 10/02/24 11:57 Primary Reason for Your Visit: Nausea vomiting. Attending Provider: Braulio Akins Primary Care Provider: Chema Mckeon Discharge Orders/Prescriptions Prescriptions: New insulin lispro [Humalog KwikPen Insulin] 100 unit/mL Insulin Pen See Protocol subcut ACHS Qty: 0 0RF Protocol: 3. Sliding Scale Insulin Med Dosing Condition: 150-189 mg/dl = 1 unit Condition: 190-229 mg/dl = 2 units Condition: 230-269 mg/dl = 3 units Condition: 270-309 mg/dl = 4 units Condition: 310-349 mg/dl = 5 units Condition: 350-399 mg/dl = 6 units Condition: 400-449 mg/dl = 7 units Condition: Greater than 449 call physician Protocol Text: Suggested for: - Patients on Total Daily Insulin Dose of 37-55 units - Obese, infected, or steroid patients MEDIUM DOSING ALGORITHIM Continued duloxetine [Cymbalta] 60 mg capsule,delayed release(DR/EC) 120 mg PO DAILY cholecalciferol (vitamin D3) 50 mcg (2,000 unit) tablet 50 mcg PO DAILY carvedilol 6.25 mg tablet 6.25 mg PO BID Qty: 60 3RF sacubitril-valsartan [Entresto] 24-26 mg tablet 1 tab PO BID Qty: 60 4RF aspirin 81 MG tablet,chewable 81 mg PO DAILY atorvastatin 80 MG tablet 80 mg PO QHS nitroglycerin 0.4 mg tablet, sublingual 0.4 mg sublingual Q5M PRN (Reason: Chest Pain) Patient Comments: Place 1 tablet under tongue as needed for Chest pain. max = 3 doses. If CP persists after 1st dose, call 911 Jardiance 10 mg tablet 10 mg PO DAILY insulin glargine-yfgn 100 unit/mL (3 mL) insulin pen 40 unit subcut BID hydrochlorothiazide 25 mg tablet 25 mg PO DAILY ondansetron 4 mg tablet,disintegrating 4 mg PO Q6H PRN (Reason: nausea and vomiting) Qty: 7 0RF magnesium oxide 400 mg magnesium capsule 400 mg PO BID Discontinued insulin lispro [Humalog KwikPen Insulin] 100 unit/mL Insulin Pen 10 unit subcut TIDAC 30 Days Qty: 15 3RF Rx Instructions: Hold if glucose less than 130 mg/dl insulin lispro [Humalog KwikPen Insulin] 100 unit/mL Insulin Pen See Protocol subcut ACHS Qty: 0 0RF Protocol: 4. Sliding Scale Insulin High-Med Dosing Condition: 150-199 mg/dl = 2 units Condition: 200-259 mg/dl = 4 units Condition: 260-324 mg/dl = 6 units Condition: 325-374 mg/dl = 8 units Condition: 375-409 mg/dl = 10 units Condition: 410-449 mg/dl = 11 units Condition: Greater than 449 call physician Protocol Text: Suggested for: - Patients on Total Daily Insulin Dose of 56-80 units - Patient who are known to be insulin resistant or septic HIGH MEDIUM DOSING ALGORITHM Referrals / Follow Up: Chema Mckeon DO [Primary Care Provider] - Within 2 Weeks Disposition Disposition (needs filled in before D/C Order can be placed): Group Home Facility
--- NOTE | 2024-10-04 10:30 | PCM.DC.SUM ---
Providers Date of Admission: 10/02/24 Primary Care Physician: Dr. Chema Mckeon, Reason For Visit: FLORY Diagnosis Discharge Diagnosis (1) FLORY (acute kidney injury): Status: Acute Code(s): N17.9 - Acute kidney failure, unspecified Plan: Resolved w IVF. Likely prerenal. (2) Nausea & vomiting: Status: Inactive Code(s): R11.2 - Nausea with vomiting, unspecified Plan: Improved. And diarrhea. Possible viral gastroenteritis with this going on for few days without improvement. Chronically has nausea, however. With patient having diabetes with a concern about gastroparesis. Will treat supportively for now but if it seems to persist I would recommend getting a gastric emptying study. (3) Debility: Status: Chronic Code(s): R53.81 - Other malaise Plan: Patient has been wheelchair-bound. Sounds more like functional paraplegia. Will have PT OT evaluate him. He is already expressed reservations about working with them. Encouraged him to work with therapies so that we can look into Ly some short-term rehab as an option. Patient states that his is unable to care for him. Encouraged patient to work with therapy to determine if he has room for optimization. Plan Chronic conditions Diabetes mellitus type 2: Back on glargine. Continue SSI. CAD: Currently stable. Continue with aspirin and atorvastatin and carvedilol. VTE prophylaxis with heparin. Dispo: To [facility] today Medications at Discharge Home Medications aspirin 81 mg chewable tablet 81 mg PO DAILY heart health 03/10/19 magnesium oxide 400 mg PO BID supplement 08/08/19 cholecalciferol (vitamin D3) 50 mcg (2,000 unit) tablet 50 mcg PO DAILY supplement 09/27/19 atorvastatin 80 mg tablet 80 mg PO QHS cholesterol 11/26/19 nitroglycerin 0.4 mg sublingual tablet 0.4 mg sublingual Q5M PRN Chest Pain 09/12/20 empagliflozin 10 mg tablet (Jardiance) 10 mg PO DAILY diabetes 11/17/22 duloxetine 60 mg capsule,delayed release (Cymbalta) 120 mg PO DAILY depression 11/23/23 carvedilol 6.25 mg tablet 6.25 mg PO BID heart #60 tabs 03/29/24 sacubitril 24 mg-valsartan 26 mg tablet (Entresto) 1 tab PO BID #60 tabs 03/29/24 hydrochlorothiazide 25 mg tablet 25 mg PO DAILY htn 09/11/24 insulin glargine-yfgn 100 unit/mL (3 mL) subcutaneous pen 40 unit subcut BID 09/11/24 ondansetron 4 mg disintegrating tablet 4 mg PO Q6H PRN nausea and vomiting #7 tabs 09/11/24 insulin lispro 100 unit/mL subcutaneous pen (Humalog KwikPen (U-100) Insulin) See Protocol subcut ACHS #0 mL 10/04/24 Hospital Course Operations None Procedures None Summary of Care Provided Minutes Spent on Discharge: 32 Hospital Course: Patient presents with nausea and vomiting and unable to care for himself. Patient has functional paraplegia and has not been walking. Primarily uses a wheelchair or a scooter to get around. But with this is a intractable nausea vomiting he just was weaker than normal and family is unable to care for him. Did bring the patient in and did give him fluids and his nausea vomiting did improve. Etiology of his nausea vomiting is unclear but suspect he may have been viral gastroenteritis. Patient expressed desire for further rehabilitation and getting stronger. Acknowledging to social work that he is willing to try to get stronger so that he can be more present for his grandchildren. Patient be discharged to [facility] in stable condition. Weight / BMI Weight Weight: 96.5 kg Body Mass Index (BMI) 31.4 ABG / Lab / Microbiology Data 10/04/24 05:26 10/04/24 05:26 Laboratory: Laboratory Results - last 24 hr 10/03/24 11:06: POC Glucose 199 H 10/03/24 16:34: POC Glucose 209 H 10/03/24 23:02: POC Glucose 224 H 10/04/24 05:26: WBC 8.8, RBC 4.53 L, Hgb 13.6, Hct 38.8 L, MCV 85.7, MCH 30.0, MCHC 35.1, RDW Std Deviation 39.2, RDW Coeff of Jr 12.6, Plt Count 161, MPV 10.6, Immature Gran % (Auto) 1.200 H, Neut % (Auto) 77.2 H, Lymph % (Auto) 10.7 L, [place] % (Auto) 7.8, Eos % (Auto) 2.4, Baso % (Auto) 0.7, Absolute Neuts (auto) 6.8, Absolute Lymphs (auto) 0.95, Nucleated RBC % 0, Sodium 137, Potassium 3.3, Chloride 102, Carbon Dioxide 24.4, Anion Gap 11, BUN 20 H, Creatinine 1.15, Estim Creat Clear Calc 73.39, Est GFR (MDRD) Non-Af 71, BUN/Creatinine Ratio 17.7, Glucose 86, Calcium 8.6 10/04/24 06:45: POC Glucose 77 10/04/24 08:43: POC Glucose 102 D/C Instructions DC O2, CPAP, BIPAP Needs Home O2 Discharge instructions: No Meaningful Use Info Meaningful Use Meaningful Use Diagnoses (Choose all that apply): None applicable Ischemic Stroke Statin Dosing Therapy Reference: STATIN DOSE THERAPY REFERENCE: * Patients > 75 years receive moderate or high dose statin therapy. * Patients 75 years or YOUNGER should receive HIGH intensity statin dose unless contraindicated. You will be required to document reason for non-treatment if statin daily dose does not meet guidelines. HIGH DOSE STATIN THERAPY DAILY Atorvastatin > than or = to 40 mg Rosuvastatin > than or = to 20 mg Amlodipine + Atorvastatin > than or = to 2.5/40 mg Ezetimibe + Simvastatin 10/80 mg Simvastatin 80mg Discharge Plan Admission Admit Date/Time: 10/02/24 11:57 Primary Reason for Your Visit: Nausea vomiting. Attending Provider: Braulio Akins Primary Care Provider: Chema Mckeon Discharge Orders/Prescriptions Prescriptions: New insulin lispro [Humalog KwikPen Insulin] 100 unit/mL Insulin Pen See Protocol subcut ACHS Qty: 0 0RF Protocol: 3. Sliding Scale Insulin Med Dosing Condition: 150-189 mg/dl = 1 unit Condition: 190-229 mg/dl = 2 units Condition: 230-269 mg/dl = 3 units Condition: 270-309 mg/dl = 4 units Condition: 310-349 mg/dl = 5 units Condition: 350-399 mg/dl = 6 units Condition: 400-449 mg/dl = 7 units Condition: Greater than 449 call physician Protocol Text: Suggested for: - Patients on Total Daily Insulin Dose of 37-55 units - Obese, infected, or steroid patients MEDIUM DOSING ALGORITHIM Continued duloxetine [Cymbalta] 60 mg capsule,delayed release(DR/EC) 120 mg PO DAILY cholecalciferol (vitamin D3) 50 mcg (2,000 unit) tablet 50 mcg PO DAILY carvedilol 6.25 mg tablet 6.25 mg PO BID Qty: 60 3RF sacubitril-valsartan [Entresto] 24-26 mg tablet 1 tab PO BID Qty: 60 4RF aspirin 81 MG tablet,chewable 81 mg PO DAILY atorvastatin 80 MG tablet 80 mg PO QHS nitroglycerin 0.4 mg tablet, sublingual 0.4 mg sublingual Q5M PRN (Reason: Chest Pain) Patient Comments: Place 1 tablet under tongue as needed for Chest pain. max = 3 doses. If CP persists after 1st dose, call 911 Jardiance 10 mg tablet 10 mg PO DAILY insulin glargine-yfgn 100 unit/mL (3 mL) insulin pen 40 unit subcut BID hydrochlorothiazide 25 mg tablet 25 mg PO DAILY ondansetron 4 mg tablet,disintegrating 4 mg PO Q6H PRN (Reason: nausea and vomiting) Qty: 7 0RF magnesium oxide 400 mg magnesium capsule 400 mg PO BID Discontinued insulin lispro [Humalog KwikPen Insulin] 100 unit/mL Insulin Pen 10 unit subcut TIDAC 30 Days Qty: 15 3RF Rx Instructions: Hold if glucose less than 130 mg/dl insulin lispro [Humalog KwikPen Insulin] 100 unit/mL Insulin Pen See Protocol subcut ACHS Qty: 0 0RF Protocol: 4. Sliding Scale Insulin High-Med Dosing Condition: 150-199 mg/dl = 2 units Condition: 200-259 mg/dl = 4 units Condition: 260-324 mg/dl = 6 units Condition: 325-374 mg/dl = 8 units Condition: 375-409 mg/dl = 10 units Condition: 410-449 mg/dl = 11 units Condition: Greater than 449 call physician Protocol Text: Suggested for: - Patients on Total Daily Insulin Dose of 56-80 units - Patient who are known to be insulin resistant or septic HIGH MEDIUM DOSING ALGORITHM Referrals / Follow Up: Chema Mckeon DO [Primary Care Provider] - Within 2 Weeks Disposition Disposition (needs filled in before D/C Order can be placed): [facility] Facility Charges/Coding Visit Charges Inpatient E&M: 63894 Disch Hosp >30min
--- NOTE | 2024-10-04 10:40 | PHA.DC.MR.R ---
Pharmacy [place] Med Reconciliation Pharmacy Service has performed discharge medication reconciliation for this patient. The patient's discharge medication list was reviewed for discrepancies and discrepancies were resolved. Medications at Discharge Home Medications aspirin 81 mg chewable tablet 81 mg PO DAILY heart health 03/10/19 magnesium oxide 400 mg PO BID supplement 08/08/19 cholecalciferol (vitamin D3) 50 mcg (2,000 unit) tablet 50 mcg PO DAILY supplement 09/27/19 atorvastatin 80 mg tablet 80 mg PO QHS cholesterol 11/26/19 nitroglycerin 0.4 mg sublingual tablet 0.4 mg sublingual Q5M PRN Chest Pain 09/12/20 empagliflozin 10 mg tablet (Jardiance) 10 mg PO DAILY diabetes 11/17/22 duloxetine 60 mg capsule,delayed release (Cymbalta) 120 mg PO DAILY depression 11/23/23 carvedilol 6.25 mg tablet 6.25 mg PO BID heart #60 tabs 03/29/24 sacubitril 24 mg-valsartan 26 mg tablet (Entresto) 1 tab PO BID #60 tabs 03/29/24 hydrochlorothiazide 25 mg tablet 25 mg PO DAILY htn 09/11/24 insulin glargine-yfgn 100 unit/mL (3 mL) subcutaneous pen 40 unit subcut BID 09/11/24 ondansetron 4 mg disintegrating tablet 4 mg PO Q6H PRN nausea and vomiting #7 tabs 09/11/24 insulin lispro 100 unit/mL subcutaneous pen (Humalog KwikPen (U-100) Insulin) See Protocol subcut ACHS #0 mL 10/04/24
--- NOTE | 2024-10-04 10:58 | CASEMGMT ---
Addendum entered by Geno Mayen 10/04/24 11:31: Pt reports that pt will transport. Pt reports that she will plan to transport between 1:30-2:00PM. DCA and bedside nurse updated. AVANI Vickers Original Note: Social Work Precert has been obtained.? Physician updated and pt is ready for discharge today.? 7000 convalescent form completed in [facility].? SW met with pt and they are agreeable to discharge plan as stated above.? DCA and bedside nurse notified of discharge. Disposition:[facility], skilled level of care AVANI Vickers
--- NOTE | 2024-10-04 11:46 | CASEMGMT ---
Discharge Planning Discharge orders, signed med list, and transport time sent to [facility]. Pts will transport between 1:30-2p. Nursing updated. Chelsea Akhtar DC Planning Asst.
[2024-10-04 11:58] LABS: Bedside Glucose 121 mg/dL (74-106)
--- NOTE | 2024-10-04 12:52 | NURSING ---
Nurse to nurse report called to Lisbeth at [facility] in [place].
== END 2024-10-04 14:02 | disposition skilled nursing facility (03) ==
LOC: ED 12:17 → MS3 10-03 09:27
PROVIDERS: Emergency Provider Emergency Medicine; PCP Family Medicine
DX: N17.9 Acute kidney failure, unspecified (principal); I13.0 Hypertensive heart and chronic kidney disease with heart failure and stage 1 through stage 4 chronic kidney disease, or unspecified chronic kidney disease; I50.22 Chronic systolic (congestive) heart failure; E11.22 Type 2 diabetes mellitus with diabetic chronic kidney disease; Z79.4 Long term (current) use of insulin; N18.30 Chronic kidney disease, stage 3 unspecified; R62.7 Adult failure to thrive; Z68.31 Body mass index [BMI] 31.0-31.9, adult; I25.10 Atherosclerotic heart disease of native coronary artery without angina pectoris; E78.5 Hyperlipidemia, unspecified; I25.2 Old myocardial infarction; F17.290 Nicotine dependence, other tobacco product, uncomplicated; Z79.82 Long term (current) use of aspirin; Z95.5 Presence of coronary angioplasty implant and graft; Z79.84 Long term (current) use of oral hypoglycemic drugs; Z86.73 Personal history of transient ischemic attack (TIA), and cerebral infarction without residual deficits; Z79.899 Other long term (current) drug therapy; R11.2 Nausea with vomiting, unspecified; R19.7 Diarrhea, unspecified; E66.9 Obesity, unspecified
CPT/HCPCS: 36415; 74176; 80048; 80053; 82962; 83036; 83605; 85025; 93005; 96361; 96372; 96374; 96375; 96376; 97162; 97166; 97530; 97535; 97802; 97803; 99221; 99285; A4216; G0378; J2405

== ENCOUNTER 2024-11-01 12:13 | Observation (INO) | payer MEDICARE, SELFPAY ==
[2019-03-06 08:28] VITALS: BMI 29.0
[2024-11-01] VITALS (7 sets, daily range): BP systolic 96–140; BP diastolic 56–77; PULSE 65–98; RESP 16–23; TEMP 36.4–37.1; O2SAT 96–100; BMI 30.4
--- NOTE | 2024-11-01 12:45 | EDS_ITS ---
HPI History of Present Illness Chief Complaint: Weakness Narrative Narrative: Chief complaint and HPI: Failure to thrive. 73-year-old male with past medical history of generalized weakness wheelchair-bound, CKD, HTN, HLD, DM2, CVA presents for evaluation of failure to thrive. Patient states he has had progressive generalized weakness for years. He is wheelchair-bound. Patient states that he was trying to adjust himself in his recliner in which he fell. EMS was called. Patient states that him and his are unable to care for him at home. He states that he often sits in soiled depends. He has been eating and drinking. Review of systems: See HPI Medications: As listed on the chart Allergies: As listed on the chart PFSH: Per chart Vital signs: As listed on the chart. Reviewed. Physical exam: Gen: A&O x3, NAD Head: Normocephalic, atraumatic Eyes: No sclera icterus, conjunctiva clear ENT: Moist mucous membranes Neck: Trachea midline, No JVD CV: RRR, no murmurs Resp: Lungs CTA BL, no w/r/c GI: Abd soft, non-distended, non-tender, no r/r/g Musc: Moves all extremities, generalized weakness Skin: Warm, dry Neuro: Alert, oriented, grossly intact, sensation intact Psych: Cooperative, appropriate mood and affect [facility] Medical History Ambulatory dysfunction Chest pain Debility Generalized weakness Depression CKD (chronic kidney disease) stage 3, GFR 30-59 ml/min 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 Obesity Polyp of colon Systolic CHF GERD (gastroesophageal reflux disease) Ischemic cardiomyopathy Essential hypertension Hyperlipidemia Arteriosclerosis of coronary artery in patient with history of myocardial infarction STEMI (ST elevation myocardial infarction) (03/05/19) Type 2 diabetes mellitus CVA (cerebral vascular accident) Syncope and collapse Bradycardia Syncope Anxiety Noncompliance with diabetes treatment Back pain FLORY (acute kidney injury) Nonketotic hyperglycinemia Hematochezia Home Medications ?Medication ?Instructions ?Recorded ?Last Taken ?Type aspirin 81 mg chewable tablet 81 mg PO DAILY heart hea lth 03/10/19 11/01/24 Hist ory magnesium oxide 400 mg PO BID supplement 11/01/24 History cholecalciferol (vitamin D3) 50 50 mcg PO DAILY supple ment 09/27/19 11/01/24 History mcg (2,000 unit) tablet atorvastatin 80 mg tablet 80 mg PO QHS cholesterol 10/31/24 History nitroglycerin 0.4 mg sublingual 0.4 mg sublingual Q5M PRN Chest 09/12/20 Unknown History tablet Pain empagliflozin 10 mg tablet 10 mg PO DAILY diabetes 12/0211/01/24 History (Jardiance) duloxetine 60 mg capsule,delayed 120 mg PO DAILY depre ssion 11/23/23 11/01/24 History release (Cymbalta) carvedilol 6.25 mg tablet 6.25 mg PO BID heart #60 tab s 03/29/24 11/01/24 Rx sacubitril 24 mg-valsartan 26 mg 1 tab PO BID #60 tabs 03/29/24 11/01/24 Rx tablet (Entresto) hydrochlorothiazide 25 mg tablet 25 mg PO DAILY htn 11/01/24 History ondansetron 4 mg disintegrating 4 mg PO Q6H PRN nausea and 09/11/24 Unknown Rx tablet vomiting #7 tabs insulin glargine 100 unit/mL (3 40 unit subcut BID 11/01/24 History mL) subcutaneous pen (Lantus Solostar U-100 Insulin) insulin lispro 200 unit/mL (3 mL) 0 - 25 unit subcut 4 X/DAY 11/01/24 11/01/24 History subcutaneous pen (Humalog KwikPen U-200 Insulin) Allergy/AdvReac Type Severity Reaction Status Date / Time etodolac Allergy Unknown Unknown Verified 11/01/24 12:17 nifedipine (From Adalat) Allergy Unknown Verified 11/01/24 12:17 Family History Father Heart disease Son Kidney disease Surgical History Hx of CABG History of coronary artery stent placement S/P coronary artery bypass graft x 4 (~08/03/19) Stented coronary artery (03/06/19) History of umbilical hernia repair History of back surgery History of lumbar fusion Social History household members: spouse Smoking Status: Former smoker alcohol intake: never substance use type: does not use caffeine: No EXAM Physical Exam Const Vital Signs: 11/01/24 12:13 11/01/24 12:18 11/01/24 13:16 Temperature 97.6 F L 98.6 F Temperature Source Oral Oral Pulse Rate 98 77 Respiratory Rate 23 H 17 Respiratory Effort Normal Respiratory Pattern Normal Blood Pressure 137/71 H 129/77 H Blood Pressure Mean 93 94 Pulse Ox 97 96 Oxygen Delivery Method Room Air Room Air 11/01/24 14:13 11/01/24 15:00 11/01/24 15:24 Temperature 98.6 F 98.7 F 98.7 F Temperature Source Temporal Oral Pulse Rate 74 89 89 Respiratory Rate 18 18 18 Respiratory Effort Respiratory Pattern Blood Pressure 127/66 H 140/70 H 140/70 H Blood Pressure Mean 86 93 93 Pulse Ox 98 98 98 Oxygen Delivery Method Room Air Room Air MDM MDM MDM Narrative Medical decision making narrative: 73-year-old male with past medical history of generalized weakness wheelchair- bound, CKD, HTN, HLD, DM2, CVA presents for evaluation of failure to thrive. Patient states he has had progressive generalized weakness for years. He is wheelchair-bound. Patient states that he was trying to adjust himself in his recliner in which he fell. EMS was called. Patient states that him and his are unable to care for him at home. Physical exam is negative for any acute traumatic injury. I do not think imaging of the head or neck is needed. Differential diagnosis includes but is not limited to failure to thrive, generalized weakness, electrolyte abnormality, UTI. Basic labs will be obtained with urine. I did speak with psychiatric social worker supervisor, given his insurance he will need admission prior to placement. She will speak with the patient. Social work spoke with the patient, patient will require admission for placement. CBC shows mild leukocytosis 11.5. Otherwise unremarkable. BMP shows baseline CKD. UA negative for UTI. Positive for glucose but patient is a diabetic. Patient will warrant admission for placement for failure to thrive. Hospice accepted admission. Impression: 1. Failure to thrive 2. Requesting placement Lab Data Labs: Laboratory Results - last 24 hr 07/23/25 07/23/25 12:57 14:25 WBC 11.5 H RBC 4.88 Hgb 14.7 Hct 41.8 MCV 85.7 MCH 30.1 MCHC 35.2 RDW Std Deviation 41.3 RDW Coeff of Jr 13.2 Plt Count 183 MPV 10.5 Sodium 135 Potassium 4.3 Chloride 98 Carbon Dioxide 25.9 Anion Gap 11 BUN 31 H Creatinine 1.43 H Est GFR (MDRD) Non-Af 54 L BUN/Creatinine Ratio 21.7 H Glucose 183 H Calcium 9.1 Urine Color Yellow Urine Clarity Clear Urine pH 6.0 Ur Specific [place] 1.015 Urine Protein 100 H Urine Glucose (UA) 1000 H Urine Ketones Negative Urine Occult Blood 50 H Urine Nitrite Negative Urine Bilirubin Negative Urine Urobilinogen Normal Ur Leukocyte Esterase Negative Urine RBC 0-5 SEEN Urine WBC 0 SEEN Ur Squamous Epith Cells 0 SEEN Urine Bacteria 0 SEEN Urine Mucus 0 SEEN Discharge Plan Triage Chief Complaint: Weakness ED Provider: Kamlesh Reynoso Dx/Rx/DC Orders Prescriptions: No Action duloxetine [Cymbalta] 60 mg capsule,delayed release(DR/EC) 120 mg PO DAILY cholecalciferol (vitamin D3) 50 mcg (2,000 unit) tablet 50 mcg PO DAILY carvedilol 6.25 mg tablet 6.25 mg PO BID Qty: 60 3RF sacubitril-valsartan [Entresto] 24-26 mg tablet 1 tab PO BID Qty: 60 4RF aspirin 81 MG tablet,chewable 81 mg PO DAILY atorvastatin 80 MG tablet 80 mg PO QHS nitroglycerin 0.4 mg tablet, sublingual 0.4 mg sublingual Q5M PRN (Reason: Chest Pain) Patient Comments: Place 1 tablet under tongue as needed for Chest pain. max = 3 doses. If CP persists after 1st dose, call 911 Jardiance 10 mg tablet 10 mg PO DAILY insulin glargine [Lantus Solostar U-100 Insulin] 100 unit/mL (3 mL) insulin pen 40 unit subcut BID Humalog KwikPen Insulin 200 unit/mL (3 mL) insulin pen 0 - 25 unit subcut 4X/DAY hydrochlorothiazide 25 mg tablet 25 mg PO DAILY ondansetron 4 mg tablet,disintegrating 4 mg PO Q6H PRN (Reason: nausea and vomiting) Qty: 7 0RF magnesium oxide 400 mg magnesium capsule 400 mg PO BID Primary Care Provider: Chema Mckeon Referrals: Chema Mckeon DO [Primary Care Provider] - Print Language: Nigerian
[2024-11-01 13:03] LABS: Hematocrit 41.8 % (40-54); Hemoglobin 14.7 g/dL (13.0-16.5); Mean Corp Hgb Conc 35.2 g/dL (32-36); Mean Corpuscular Volume 85.7 fL (80-94); Mean Platelet Vol. 10.5 fl (6.2-12.0); Platelet Count 183 K/mm3 (150-450); RBC Distribution Width CV 13.2 % (11.6-14.6); RBC Distribution Width SD 41.3 fl (35.1-43.9); Red Blood Count 4.88 M/mm3 (4.6-6.2); White Blood Count 11.5 K/mm3 (4.4-11.0)
[2024-11-01 13:59] LABS: Anion Gap 11 (5-15); BUN 31 mg/dL (4-19); BUN/Creat Ratio 21.7 RATIO (10-20); Calcium,Total 9.1 mg/dL (7.6-11.0); Carbon Dioxide 25.9 mmol/L (21.0-32.0); Chloride 98 mmol/L (98-108); Glucose 183 mg/dL (70-99); Potassium 4.3 mmol/L (3.3-5.1)
--- NOTE | 2024-11-01 14:02 | CASEMGMT ---
Social Work Patient had a face to face assessment completed less than 30 days previously. Patient confirmed no changes since last assessment. SW spoke with patient in person and called per patients request. Both state that patient is no longer able to be at home as is unable to provide the hands on care he requires. Patient stated that he was previously at [facility], but is not willing to return. Patients stated she would like patient referred to [facility], and patient understanding that they may need to make additional choices for SNF if [facility] is unable to accept. Patient was tearful during visit, stating he will do whatever his thinks is best. Emotional support provided. Christiana Cardoza, INFUSION NURSE, COMMUNITY SERVICE DIRECTOR
[2024-11-01 14:32] LABS: Mucous, Urine 0 SEEN /hpf (<or=2+); Squamous Epithelial Cells - UA 0 SEEN /hpf (0-5)
[2024-11-01 14:40] LABS: Color, Urine Yellow (Yellow); Glucose, Dipstick 1000 mg/dl (Normal); Ketone-Dipstick Negative (Negative); Leukocyte Esterase-Dipstick Negative /ul (Negative); Nitrite-Dipstick Negative (Negative); Occult Blood-Urine 50 /ul (Negative); Protein-Dipstick 100 mg/dl (Negative); Specific Gravity, Urine 1.015 (1.002-1.030); Urine Bilirubin Dipstick Negative (Negative)
[2024-11-01 14:47] LABS: Red Blood Cells-Urine 0-5 SEEN /hpf (0-5)
--- NOTE | 2024-11-01 16:08 | PCM.HP.STD ---
HPI - General General Date of Admission: 11/01/24 Date of Service: 11/01/24 Chief Complaint: Generalized weakness HPI Narrative NELSY ROGERS, is a 63M hx of CKD, diabetes, CVA, hypertension, chronically wheelchair-bound, CHF, CAD, depression who presented [facility] ED 11/01/2024 due to weakness and failure to thrive. He has had progressive generalized weakness for years but today was trying to adjust himself in his recliner when he slid to the floor and EMS was called. Patient reports he cannot care for himself at home. In the ED temp 97.6, heart rate 98, blood pressure 137/71, respiratory 23 and pulse ox 97% on room air. CBC with white blood cell count of 11.5 and hemoglobin of 14.7 with platelet count of 183. BUN 31 and creatinine 1.43 which overall seems to be about baseline. UA does not appear infectious. Hospitalist contacted for admission for placement. Patient evaluated at bedside. He reports history as above, has some chronic abdominal pain that is unchanged from previous, has the generalized weakness but no other new or acute complaints. Just reports his cannot longer help him. 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 Obesity Polyp of colon Systolic CHF GERD (gastroesophageal reflux disease) Ischemic cardiomyopathy Essential hypertension Hyperlipidemia Arteriosclerosis of coronary artery in patient with history of myocardial infarction STEMI (ST elevation myocardial infarction) (03/05/19) Type 2 diabetes mellitus CVA (cerebral vascular accident) Syncope and collapse Bradycardia Syncope Anxiety Noncompliance with diabetes treatment Back pain FLORY (acute kidney injury) Nonketotic hyperglycinemia Hematochezia Home Medications ?Medication ?Instructions ?Recorded ?Last Taken ?Type aspirin 81 mg chewable tablet 81 mg PO DAILY heart health 03/10/19 11/01/24 History magnesium oxide 400 mg PO BID supplement 08/08/19 11/01/24 History cholecalciferol (vitamin D3) 50 50 mcg PO DAILY supplement 09/27/19 11/01/24 History mcg (2,000 unit) tablet atorvastatin 80 mg tablet 80 mg PO QHS cholesterol 11/26/19 10/31/24 History nitroglycerin 0.4 mg sublingual 0.4 mg sublingual Q5M PRN Chest 09/12/20 Unknown History tablet Pain empagliflozin 10 mg tablet 10 mg PO DAILY diabetes 11/17/22 11/01/24 History (Jardiance) duloxetine 60 mg capsule,delayed 120 mg PO DAILY depression 11/23/23 11/01/24 History release (Cymbalta) carvedilol 6.25 mg tablet 6.25 mg PO BID heart #60 tabs 03/29/24 11/01/24 Rx sacubitril 24 mg-valsartan 26 mg 1 tab PO BID #60 tabs 03/29/24 11/01/24 Rx tablet (Entresto) hydrochlorothiazide 25 mg tablet 25 mg PO DAILY htn 09/11/24 11/01/24 History ondansetron 4 mg disintegrating 4 mg PO Q6H PRN nausea and 09/11/24 Unknown Rx tablet vomiting #7 tabs insulin glargine 100 unit/mL (3 40 unit subcut BID 11/01/24 11/01/24 History mL) subcutaneous pen (Lantus Solostar U-100 Insulin) insulin lispro 200 unit/mL (3 mL) 0 - 25 unit subcut 4X/DAY 11/01/24 11/01/24 History subcutaneous pen (Humalog KwikPen U-200 Insulin) Allergy/AdvReac Type Severity Reaction Status Date / Time etodolac Allergy Unknown Unknown Verified 11/01/24 12:17 nifedipine (From Adalat) Allergy Unknown Verified 11/01/24 12:17 Family History Father Heart disease Son Kidney disease Surgical History Hx of CABG History of coronary artery stent placement S/P coronary artery bypass graft x 4 (~08/03/19) Stented coronary artery (03/06/19) History of umbilical hernia repair History of back surgery History of lumbar fusion Social History household members: spouse Smoking Status: Former smoker alcohol intake: never substance use type: does not use caffeine: No ROS ROS Narrative General: Denies fever/chills HENT: Denies headache, denies stuffy nose, denies sore throat EYES: Denies changes in vision Resp: Denies cough, denies shortness of breath Cardiac: Denies chest pain GI: Some chronic abdominal pain unchanged from baseline, denies changes in bowel, denies nausea/vomiting : Denies changes in urination Extremity: Denies swelling MSK: Generalized weakness Neuro: Denies any numbness/tingling Heme: Denies any bleeding or bruising Skin: Denies rashes Psychiatric: No complaints voiced Vital Signs Vital Signs Vital Signs: 11/01/24 12:13 11/01/24 12:18 11/01/24 13:16 Temperature 97.6 F L 98.6 F Temperature Source Oral Oral Pulse Rate 98 77 Respiratory Rate 23 H 17 Respiratory Effort Normal Respiratory Pattern Normal Blood Pressure 137/71 H 129/77 H Blood Pressure Mean 93 94 Pulse Ox 97 96 Oxygen Delivery Method Room Air Room Air 11/01/24 14:13 11/01/24 15:00 11/01/24 15:24 Temperature 98.6 F 98.7 F 98.7 F Temperature Source Temporal Oral Pulse Rate 74 89 89 Respiratory Rate 18 18 18 Respiratory Effort Respiratory Pattern Blood Pressure 127/66 H 140/70 H 140/70 H Blood Pressure Mean 86 93 93 Pulse Ox 98 98 98 Oxygen Delivery Method Room Air Room Air Physical Exam Narrative General: Alert, oriented, no apparent distress HEENT: Atraumatic, normocephalic Eyes: Anicteric, normal conjunctiva, extraocular movements grossly intact Neck: Supple Respiratory: No significant rhonchi or wheezes, normal respiratory effort Cardiovascular: Regular rate GI: Soft, nontender, nondistended Extremities: No edema Musculoskeletal: Moving all extremities Neuro: No overt focal neurological deficits Skin: Some bruises on shins Psych: Cooperative Results Lab / Micro Data 11/01/24 12:57 11/01/24 12:57 Labs: Laboratory Results - last 24 hr 11/01/24 12:57: WBC 11.5 H, RBC 4.88, Hgb 14.7, Hct 41.8, MCV 85.7, MCH 30.1, MCHC 35.2, RDW Std Deviation 41.3, RDW Coeff of Jr 13.2, Plt Count 183, MPV 10.5, Sodium 135, Potassium 4.3, Chloride 98, Carbon Dioxide 25.9, Anion Gap 11, BUN 31 H, Creatinine 1.43 H, Est GFR (MDRD) Non-Af 54 L, BUN/Creatinine Ratio 21.7 H, Glucose 183 H, Calcium 9.1 11/01/24 14:25: Urine Color Yellow, Urine Clarity Clear, Urine pH 6.0, Ur Specific [place] 1.015, Urine Protein 100 H, Urine Glucose (UA) 1000 H, Urine Ketones Negative, Urine Occult Blood 50 H, Urine Nitrite Negative, Urine Bilirubin Negative, Urine Urobilinogen Normal, Ur Leukocyte Esterase Negative, Urine RBC 0-5 SEEN, Urine WBC 0 SEEN, Ur Squamous Epith Cells 0 SEEN, Urine Bacteria 0 SEEN, Urine Mucus 0 SEEN Assessment & Plan Assessment/Plan (1) Adult failure to thrive: PLAN: Plan # Progressive generalized weakness/failure to thrive/debility/inability to care for self at home - Patient and indicate patient is no longer safe to be home and patient has come to the ED for placement - Case management consult - PT/OT #Hx of CAD -w/ previous CABG -Continue home statin and Coreg, continue aspirin #Hx CHF - Patient on Entresto, will continue home medication - Daily weights, I's and O's - Does not appear to be overloaded # CKD stage III b -Appears to be at baseline -Avoid nephrotoxic agents -Daily BMPs #Type 2 diabetes mellitus -Glucose checks and sliding scale insulin -Continue long-acting insulin but at slightly lower dose to avoid hypoglycemia, uptitrate as tolerated #Hypertension - Continue home medications #Depression/anxiety -Continue home duloxetine #DVT ppx: Lovenox subcu Sandra Johnson MD Charges/Coding Visit Charges Inpatient E&M: 25944 Init Hosp L2
[2024-11-01] MEDS: MELATONIN 10 MG TABLET PO (20:19)
[2024-11-01] MEDS: SACUBITRIL/VALSARTAN 24/26 MG TABLET 1 EACH PO (20:20)
[2024-11-01] MEDS: Insulin Glargine-YFGN 100 UNIT/ML Pen 30 UNIT SC (20:20)
[2024-11-01] MEDS: 0.9% Saline Lock 10 ML Syringe IV (20:25)
[2024-11-02 01:31] VITALS: BMI 30.8
[2024-11-02 03:15] VITALS: BP 128/78; PULSE 63; RESP 17; TEMP 36.6; O2SAT 100
[2024-11-02 05:48] LABS: Hematocrit 37.1 % (40-54); Hemoglobin 12.8 g/dL (13.0-16.5); Immature Granulocytes Count 0.150 X10^3/uL (0.0-0.0); Mean Corp Hgb Conc 34.5 g/dL (32-36); Mean Corpuscular Volume 86.3 fL (80-94); Mean Platelet Vol. 10.8 fl (6.2-12.0); NRBC Flagged by Analyzer 0 % (0-5); Platelet Count 153 K/mm3 (150-450); RBC Distribution Width CV 13.5 % (11.6-14.6); RBC Distribution Width SD 42.2 fl (35.1-43.9); Red Blood Count 4.30 M/mm3 (4.6-6.2); White Blood Count 9.2 K/mm3 (4.4-11.0)
[2024-11-02 06:09] LABS: Anion Gap 9 (5-15); BUN 29 mg/dL (4-19); BUN/Creat Ratio 21.9 RATIO (10-20); Calcium,Total 8.3 mg/dL (7.6-11.0); Carbon Dioxide 24.7 mmol/L (21.0-32.0); Chloride 99 mmol/L (98-108); Estimated Creatinine Clearance 63.82 ml/min (50-250); Glucose 139 mg/dL (70-99); Potassium 4.0 mmol/L (3.3-5.1)
--- NOTE | 2024-11-02 07:58 | WOUNDNOTE ---
wound photo: left lateral foot
[2024-11-02 08:00] VITALS: BP 122/73; PULSE 60; RESP 14; TEMP 36.4; O2SAT 99
[2024-11-02] MEDS: SACUBITRIL/VALSARTAN 24/26 MG TABLET 1 EACH PO ×2 (08:12→21:26)
[2024-11-02] MEDS: Magnesium Chloride 64 MG Delay Rel.Tablet 128 MG PO (08:12)
[2024-11-02] MEDS: Insulin Glargine-YFGN 100 UNIT/ML Pen 30 UNIT SC ×2 (08:12→21:27)
--- NOTE | 2024-11-02 08:32 | PCM.PN.HOSP ---
Subjective Subjective Doing well, no issues overnight, lab work is unremarkable Objective Data Objective Data Vital Signs: Vital Signs Temp Pulse Resp BP Pulse Ox O2 Del Method 97.6 F L 60 14 122/73 H 99 Room Air 11/02/24 08:00 11/02/24 08:00 11/02/24 08:00 11/02/24 08:00 11/02/24 08:00 11/02/24 08:00 Oxygen Delivery Method Room Air Weight: 208 lb 8.917 oz Body Mass Index (BMI) 30.8 Intake & Output: Intake and Output for Last 24 Hours 11/01/24 11/02/24 11/03/24 03:59 03:59 03:59 Intake Total 200 / 200 Output Total 450 / 450 100 / 100 Balance -450 / -450 100 / 100 Lab / Micro Data 11/02/24 05:07 11/02/24 05:07 Labs: Laboratory Results - last 24 hr 11/01/24 12:57: WBC 11.5 H, RBC 4.88, Hgb 14.7, Hct 41.8, MCV 85.7, MCH 30.1, MCHC 35.2, RDW Std Deviation 41.3, RDW Coeff of Jr 13.2, Plt Count 183, MPV 10.5, Sodium 135, Potassium 4.3, Chloride 98, Carbon Dioxide 25.9, Anion Gap 11, BUN 31 H, Creatinine 1.43 H, Est GFR (MDRD) Non-Af 54 L, BUN/Creatinine Ratio 21.7 H, Glucose 183 H, Calcium 9.1 11/01/24 14:25: Urine Color Yellow, Urine Clarity Clear, Urine pH 6.0, Ur Specific [place] 1.015, Urine Protein 100 H, Urine Glucose (UA) 1000 H, Urine Ketones Negative, Urine Occult Blood 50 H, Urine Nitrite Negative, Urine Bilirubin Negative, Urine Urobilinogen Normal, Ur Leukocyte Esterase Negative, Urine RBC 0-5 SEEN, Urine WBC 0 SEEN, Ur Squamous Epith Cells 0 SEEN, Urine Bacteria 0 SEEN, Urine Mucus 0 SEEN 11/01/24 16:54: POC Glucose 76 11/01/24 20:15: POC Glucose 203 H 11/02/24 05:07: WBC 9.2, RBC 4.30 L, Hgb 12.8 L, Hct 37.1 L, MCV 86.3, MCH 29.8, MCHC 34.5, RDW Std Deviation 42.2, RDW Coeff of Jr 13.5, Plt Count 153, MPV 10.8, Immature Gran % (Auto) 1.600 H, Neut % (Auto) 73.6 H, Lymph % (Auto) 11.4 L, [place] % (Auto) 10.7 H, Eos % (Auto) 2.3, Baso % (Auto) 0.4, Absolute Neuts (auto) 6.7, Absolute Lymphs (auto) 1.04, Nucleated RBC % 0, Sodium 133, Potassium 4.0, Chloride 99, Carbon Dioxide 24.7, Anion Gap 9, BUN 29 H, Creatinine 1.31 H, Estim Creat Clear Calc 63.82, Est GFR (MDRD) Non-Af 60, BUN/Creatinine Ratio 21.9 H, Glucose 139 H, Calcium 8.3 11/02/24 06:30: POC Glucose 133 H Physical Exam Narrative General: Alert, Oriented x3, Cooperative, No apparent distress HEENT: Atraumatic, PERRLA, EOMI, Normocephalic Oral: Moist Mucosa Neck: Supple, No JVD Lungs: Diminished, Normal air movement, No rhonchi, No wheeze, No rales Cardiovascular: Regular rate, Regular Rhythm, Normal S1, Normal S2, No murmurs Abdomen: Soft, Non Tender, Non-Distended, No Hepato-splenomegaly Extremities: No edema, Capillary Refill Less than 3 Seconds Skin: No rashes, No breakdown Musculoskeletal: No Tenderness to Palpation of Joints or Extremities Neurological: No focal neurological deficits, moves all extremities Psych/Mental Status: Normal Affect, Appropriate Assessment & Plan Assessment/Plan (1) Debility: PLAN: Plan 1. Generalized weakness and debility ? She is wheelchair-bound and fell out of his chair and his was unable to help get him back up therefore EMS was called ? PT/OT ? Case management for discharge planning 2. CAD status post CABG/chronic systolic CHF/essential HTN/HLD ? Echo on 10/28/2023 with an EF of 30% ? Continue with his home blood pressure medications ? His blood pressures are stable/continue with his home cholesterol medications ? Continue with Jardiance both for his diabetes and his heart failure 3. DM2 with CKD 3 ? Stable ? Continue with sliding scale insulin ? Accu-Cheks ACHS ? Will monitor and make adjustments as necessary ? Renal functions at baseline 4. Anxiety/depression ? Stable ? Continue Cymbalta DVT: Lovenox Charges/Coding Visit Charges Inpatient E&M: 60353 Subs Hosp L2
--- NOTE | 2024-11-02 08:58 | CASEMGMT ---
Addendum entered by Chelsea Akhtar 11/02/24 10:20: [facility] has declined d/t no bed availability. SW updated. Chelsea Akhtar DC Planning Asst. Original Note: Discharge Planning SNF referral sent to [facility] [place]. Chelsea Akhtar DC Planning Asst.
[2024-11-02 14:00] VITALS: BP 99/51; PULSE 66; RESP 15; TEMP 36.4; O2SAT 96
--- NOTE | 2024-11-02 14:21 | CASEMGMT ---
Social Work- SW met with pt and pt to discuss discharge plans. Pt reports that pt cannot return home if pt is unable to stand/pivot to his scooter. Pt expresses agreement, reporting that he has been falling between scooter and chair and he is afraid of hurting himself during a fall. Pt reports that he would like to go home with [facility] ideally. Pt reports that he is worried about bearing weight on his foot due to pain when pressure is applied. SW discussed importance in participation with therapy to determine safe discharge plan. Pt adamantly maintains that it is unsafe for pt to return home in current state, as she is unable to care for him. Pt refused therapy today, but after lengthy discussion reports understanding of the importance of working with therapy to determine needs. Pt reports anxiety regarding falls being the primary reason for refusal, as well as foot pain. SW collaborated with PT and OT regarding pt concerns. SW remains available to follow. AVANI Vickers
--- NOTE | 2024-11-02 15:42 | NURSING ---
DR BAUGH NOTIFIED THAT PT APPARENTLY ALMOST PASSED OUT GETTING UP TO [facility] W/DIDACTIC PROGRAM IN [facility]. PREVIOUS BP AROUND 1400 WAS 99/51 AND PT IS ON COREG 6.25 AND HCTZ. BOTH HELD FOR TONIGHT AND TOMORROW AM PER DR BAUGH
--- NOTE | 2024-11-02 15:45 | CASEMGMT ---
STEPHANIE CM in to discuss STEWART form with patient. RN CM explained STEWART form, patient voiced understanding. Pt signed form and filed in chart. Pt provided with a copy of signed STEWART form. Patient had no further questions or concerns at this time.
[2024-11-02 15:49] VITALS: BP 113/69; PULSE 76; RESP 16; TEMP 36.6; O2SAT 97
[2024-11-02 21:02] VITALS: BP 118/69; PULSE 79; RESP 16; TEMP 36.5; O2SAT 98
[2024-11-02] MEDS: MELATONIN 10 MG TABLET PO (21:32)
[2024-11-03 03:45] VITALS: BP 118/73; PULSE 72; RESP 18; TEMP 36.6; O2SAT 99
[2024-11-03 03:58] VITALS: BMI 30.4
[2024-11-03 05:07] LABS: Hematocrit 39.1 % (40-54); Hemoglobin 13.6 g/dL (13.0-16.5); Immature Granulocytes Count 0.130 X10^3/uL (0.0-0.0); Mean Corp Hgb Conc 34.8 g/dL (32-36); Mean Corpuscular Volume 86.1 fL (80-94); Mean Platelet Vol. 10.9 fl (6.2-12.0); NRBC Flagged by Analyzer 0 % (0-5); Platelet Count 181 K/mm3 (150-450); RBC Distribution Width CV 13.4 % (11.6-14.6); RBC Distribution Width SD 42.3 fl (35.1-43.9); Red Blood Count 4.54 M/mm3 (4.6-6.2); White Blood Count 8.1 K/mm3 (4.4-11.0)
[2024-11-03 05:43] LABS: Anion Gap 10 (5-15); BUN 32 mg/dL (4-19); BUN/Creat Ratio 21.1 RATIO (10-20); Calcium,Total 8.8 mg/dL (7.6-11.0); Carbon Dioxide 25.0 mmol/L (21.0-32.0); Chloride 100 mmol/L (98-108); Estimated Creatinine Clearance 55.46 ml/min (50-250); Glucose 140 mg/dL (70-99); Potassium 4.0 mmol/L (3.3-5.1)
--- NOTE | 2024-11-03 08:16 | PN.HOSP_ITS ---
Subjective Subjective Would like to go home instead of the [facility] if possible. His would like to at least see him be able to stand and pivot on his own with little support prior to going home Objective Data Objective Data Vital Signs: Vital Signs Temp Pulse Resp BP Pulse Ox O2 Del Method 97.9 F 72 18 118/73 99 Room Air 11/03/24 03:45 11/03/24 03:45 11/03/24 03:45 11/03/24 03:45 11/03/24 03:45 11/03/24 03:45 Oxygen Delivery Method Room Air Weight: 206 lb 5.643 oz Body Mass Index (BMI) 30.4 Intake & Output: Intake and Output for Last 24 Hours 11/02/24 11/03/24 11/04/24 03:59 03:59 03:59 Intake Total 400 / 400 Output Total 450 / 450 1125 / 1125 400 / 400 Balance -450 / -450 -725 / -725 -400 / -400 Lab / Micro Data 11/03/24 04:25 11/03/24 04:25 Labs: Laboratory Results - last 24 hr 11/02/24 11:13: POC Glucose 201 H 11/02/24 16:17: POC Glucose 234 H 11/02/24 21:22: POC Glucose 300 H 11/03/24 04:25: WBC 8.1, RBC 4.54 L, Hgb 13.6, Hct 39.1 L, MCV 86.1, MCH 30.0, MCHC 34.8, RDW Std Deviation 42.3, RDW Coeff of Jr 13.4, Plt Count 181, MPV 10.9, Immature Gran % (Auto) 1.600 H, Neut % (Auto) 71.5 H, Lymph % (Auto) 14.9 L, [place] % (Auto) 8.5, Eos % (Auto) 2.8, Baso % (Auto) 0.7, Absolute Neuts (auto) 5.8, Absolute Lymphs (auto) 1.21, Nucleated RBC % 0, Sodium 135, Potassium 4.0, Chloride 100, Carbon Dioxide 25.0, Anion Gap 10, BUN 32 H, Creatinine 1.50 H, Estim Creat Clear Calc 55.46, Est GFR (MDRD) Non-Af 51 L, BUN/Creatinine Ratio 21.1 H, Glucose 140 H, Calcium 8.8 11/03/24 06:39: POC Glucose 141 H Physical Exam Narrative General: Alert, Oriented x3, Cooperative, No apparent distress HEENT: Atraumatic, PERRLA, EOMI, Normocephalic Oral: Moist Mucosa Neck: Supple, No JVD Lungs: Diminished, Normal air movement, No rhonchi, No wheeze, No rales Cardiovascular: Regular rate, Regular Rhythm, Normal S1, Normal S2, No murmurs Abdomen: Soft, Non Tender, Non-Distended, No Hepato-splenomegaly Extremities: No edema, Capillary Refill Less than 3 Seconds Skin: No rashes, No breakdown Musculoskeletal: No Tenderness to Palpation of Joints or Extremities Neurological: No focal neurological deficits, moves all extremities Psych/Mental Status: Normal Affect, Appropriate Assessment & Plan Assessment/Plan (1) Debility: PLAN: Plan 1. Generalized weakness and debility ? He is wheelchair-bound and fell out of his chair and his was unable to help get him back up therefore EMS was called ? PT/OT ? Case management for discharge planning ? Will see if he is able to stand and pivot with minimal support prior to discharge home as he would prefer to go home 2. CAD status post CABG/chronic systolic CHF/essential HTN/HLD ? Echo on 10/28/2023 with an EF of 30% ? Continue with his home blood pressure medications ? His blood pressures are stable/continue with his home cholesterol medications ? Continue with Jardiance both for his diabetes and his heart failure 3. DM2 with CKD 3 ? Stable ? Continue with sliding scale insulin ? Accu-Cheks ACHS ? Will monitor and make adjustments as necessary ? Renal functions at baseline 4. Anxiety/depression ? Stable ? Continue Cymbalta DVT: Lovenox Charges/Coding Visit Charges Inpatient E&M: 22608 Subs Hosp L2
[2024-11-03 10:51] VITALS: BP 125/67; PULSE 76; RESP 16; TEMP 36.7; O2SAT 100
[2024-11-03] MEDS: Insulin Glargine-YFGN 100 UNIT/ML Pen 30 UNIT SC (11:05)
[2024-11-03] MEDS: SACUBITRIL/VALSARTAN 24/26 MG TABLET 1 EACH PO (11:05)
[2024-11-03] MEDS: Magnesium Chloride 64 MG Delay Rel.Tablet 128 MG PO (11:06)
--- NOTE | 2024-11-03 13:15 | DCINST_ITS ---
Discharge Instructions DC O2, CPAP, BIPAP needs Home O2 Discharge instructions: No Dressing / Incision Discharge Activity: Return to Normal Activity Dressing / Incision Call your doctor if you observe: Fever of 101 or Higher, Shortness of breath, Dizziness, Fainting spells, Swelling in the ankles, Chest pain and Increased palpitations (irregular heartbeat) Follow Up Care Test Results: Test results from this visit will be discussed in further detail at your follow- up appointment, if applicable. Discharge Plan Admission Admit Date/Time: 11/01/24 16:09 Attending Provider: Nehemias Epps Primary Care Provider: Chema Mckeon Consulting Providers: Sandra Johnson Discharge Orders/Prescriptions Prescriptions: Continued duloxetine [Cymbalta] 60 mg capsule,delayed release(DR/EC) 120 mg PO DAILY cholecalciferol (vitamin D3) 50 mcg (2,000 unit) tablet 50 mcg PO DAILY carvedilol 6.25 mg tablet 6.25 mg PO BID Qty: 60 3RF sacubitril-valsartan [Entresto] 24-26 mg tablet 1 tab PO BID Qty: 60 4RF aspirin 81 MG tablet,chewable 81 mg PO DAILY atorvastatin 80 MG tablet 80 mg PO QHS nitroglycerin 0.4 mg tablet, sublingual 0.4 mg sublingual Q5M PRN (Reason: Chest Pain) Patient Comments: Place 1 tablet under tongue as needed for Chest pain. max = 3 doses. If CP persists after 1st dose, call 911 Jardiance 10 mg tablet 10 mg PO DAILY insulin glargine [Lantus Solostar U-100 Insulin] 100 unit/mL (3 mL) insulin pen 40 unit subcut BID Humalog KwikPen Insulin 200 unit/mL (3 mL) insulin pen 0 - 25 unit subcut 4X/DAY hydrochlorothiazide 25 mg tablet 25 mg PO DAILY ondansetron 4 mg tablet,disintegrating 4 mg PO Q6H PRN (Reason: nausea and vomiting) Qty: 7 0RF magnesium oxide 400 mg magnesium capsule 400 mg PO BID Referrals / Follow Up: Chema Mckeon DO [Primary Care Provider] - Within 1 Week Disposition Disposition (needs filled in before D/C Order can be placed): Home, Self Care
--- NOTE | 2024-11-03 13:53 | CASEMGMT ---
STEPHANIE CM into pt room, provided pt with a list of choices for HHC created by dc event marketing assistant. Pt states that he has no preference and would like the closest agency.
--- NOTE | 2024-11-03 14:05 | CASEMGMT ---
Discharge Planning A list of?HH providers including quality and resource use data and consistent with the patient's preferred geographic region, medical needs, and insurance network was created in [facility]Port Guide.? This list was provided to the SW. Chelsea Akhtar Discharge Planning Asst.
[2024-11-03 14:10] VITALS: BP 116/63; PULSE 83; RESP 16; TEMP 36.1; O2SAT 99
--- NOTE | 2024-11-03 14:39 | CASEMGMT ---
Social Work- SW received notice from therapy of pt participation. SW called pt to update on pt therapy results. Pt agreeable to pt return home with [facility]. RNCM to provide list. SW to follow. Pt selected [facility] as FOC. SW called [facility] and left a voicemail with referral information. SW remains available to follow. AVANI Vickers
--- NOTE | 2024-11-03 15:16 | CASEMGMT ---
Addendum entered by Natalie Aguillon 11/03/24 16:33: Updated hospitalist of the below information. Addendum entered by Natalie Aguillon 11/03/24 16:33: [facility] has declined pt. TC received from [facility], Mena, she states their human service specialist advised that pt has no skilled need for care to be covered by insurance. SW updated pt and . Addendum entered by Natalie Aguillon 11/03/24 16:27: [facility], Jessica and have declined pt for services. Original Note: Received tc from Mena at [facility] stating pt does not show a skilled need in the documentation and his dx are stable therefore they are unable to accept pt. Message to hospitalist. Referral sent to rest of agencies on list at this time via careport: Jessica Huff, [facility] and .
--- NOTE | 2024-11-03 15:41 | PCM.DC.SUM ---
Providers Date of Admission: 11/01/24 Primary Care Physician: Dr. Chema Mckeon, DO Consultations 11/01/24 16:57 Consult: Onc/Wound/psychiatric aides teacher Routine Comment: Reason for Consult:: wound left outer foot, left buttocks abrasion Reason For Visit: GENERALIZED WEAKNESS, FAILURE TO THRIVE Diagnosis Discharge Diagnosis (1) Debility: Status: Chronic Code(s): R53.81 - Other malaise Plan 1. Generalized weakness and debility ? He is wheelchair-bound and fell out of his chair and his was unable to help get him back up therefore EMS was called ? PT/OT ? Case management for discharge planning ? Will see if he is able to stand and pivot with minimal support prior to discharge home as he would prefer to go home 2. CAD status post CABG/chronic systolic CHF/essential HTN/HLD ? Echo on 10/28/2023 with an EF of 30% ? Continue with his home blood pressure medications ? His blood pressures are stable/continue with his home cholesterol medications ? Continue with Jardiance both for his diabetes and his heart failure 3. DM2 with CKD 3 ? Stable ? Continue with sliding scale insulin ? Accu-Cheks ACHS ? Will monitor and make adjustments as necessary ? Renal functions at baseline 4. Anxiety/depression ? Stable ? Continue Cymbalta DVT: Lovenox Medications at Discharge Home Medications aspirin 81 mg chewable tablet 81 mg PO DAILY heart health 03/10/19 magnesium oxide 400 mg PO BID supplement 08/08/19 cholecalciferol (vitamin D3) 50 mcg (2,000 unit) tablet 50 mcg PO DAILY supplement 09/27/19 atorvastatin 80 mg tablet 80 mg PO QHS cholesterol 11/26/19 nitroglycerin 0.4 mg sublingual tablet 0.4 mg sublingual Q5M PRN Chest Pain 09/12/20 empagliflozin 10 mg tablet (Jardiance) 10 mg PO DAILY diabetes 11/17/22 duloxetine 60 mg capsule,delayed release (Cymbalta) 120 mg PO DAILY depression 11/23/23 carvedilol 6.25 mg tablet 6.25 mg PO BID heart #60 tabs 03/29/24 sacubitril 24 mg-valsartan 26 mg tablet (Entresto) 1 tab PO BID #60 tabs 03/29/24 hydrochlorothiazide 25 mg tablet 25 mg PO DAILY htn 09/11/24 ondansetron 4 mg disintegrating tablet 4 mg PO Q6H PRN nausea and vomiting #7 tabs 09/11/24 insulin glargine 100 unit/mL (3 mL) subcutaneous pen (Lantus Solostar U-100 Insulin) 40 unit subcut BID 11/01/24 insulin lispro 200 unit/mL (3 mL) subcutaneous pen (Humalog KwikPen U-200 Insulin) 0 - 25 unit subcut 4X/DAY 11/01/24 Hospital Course Operations None Procedures None Summary of Care Provided Minutes Spent on Discharge: 33 Hospital Course: Per HPI: NELSY ROGERS, is a 63M hx of CKD, diabetes, CVA, hypertension, chronically wheelchair-bound, CHF, CAD, depression who presented [facility] ED 11/01/2024 due to weakness and failure to thrive. He has had progressive generalized weakness for years but today was trying to adjust himself in his recliner when he slid to the floor and EMS was called. Patient reports he cannot care for himself at home. In the ED temp 97.6, heart rate 98, blood pressure 137/71, respiratory 23 and pulse ox 97% on room air. CBC with white blood cell count of 11.5 and hemoglobin of 14.7 with platelet count of 183. BUN 31 and creatinine 1.43 which overall seems to be about baseline. UA does not appear infectious. Hospitalist contacted for admission for placement. Patient evaluated at bedside. He reports history as above, has some chronic abdominal pain that is unchanged from previous, has the generalized weakness but no other new or acute complaints. Just reports his cannot longer help him. Hospital Course: 1. Generalized weakness and debility with diabetic foot wound?63-year-old male who is wheelchair-bound presented to the hospital with increased weakness and debility. He slid out of his wheelchair and was unable to get up even with the assistance of his who presented to the hospital for evaluation. PT and OT feel like he would do well with outpatient therapy and he does have a diabetic foot ulcer which complicates his care and he was seen by wound care here in the hospital. Will plan for discharge with home health care given this wound increasing his complexity. Would recommend outpatient physical therapy as well. I discussed with him the possibility for discharge today and he expressed understanding of the risks and benefits of going home and would like to go home today. 2. Coronary artery disease status post CABG, chronic systolic CHF, essential hypertension, hyperlipidemia, type 2 diabetes with CKD 3, anxiety, depression are all chronic medical conditions which complicate his care. His home medications were continued where appropriate Physical Exam Narrative General: Alert, Oriented x3, Cooperative, No apparent distress HEENT: Atraumatic, PERRLA, EOMI, Normocephalic Oral: Moist Mucosa Neck: Supple, No JVD Lungs: Diminished, Normal air movement, No rhonchi, No wheeze, No rales Cardiovascular: Regular rate, Regular Rhythm, Normal S1, Normal S2, No murmurs Abdomen: Soft, Non Tender, Non-Distended, No Hepato-splenomegaly Extremities: No edema, Capillary Refill Less than 3 Seconds Skin: Left lateral foot ulcer that is draining follows with podiatry Musculoskeletal: No Tenderness to Palpation of Joints or Extremities Neurological: No focal neurological deficits, moves all extremities Psych/Mental Status: Normal Affect, Appropriate Weight / BMI Weight Weight: 206 lb 5.643 oz Body Mass Index (BMI) 30.4 ABG / Lab / Microbiology Data 11/03/24 04:25 11/03/24 04:25 Laboratory: Laboratory Results - last 24 hr 11/02/24 16:17: POC Glucose 234 H 11/02/24 21:22: POC Glucose 300 H 11/03/24 04:25: WBC 8.1, RBC 4.54 L, Hgb 13.6, Hct 39.1 L, MCV 86.1, MCH 30.0, MCHC 34.8, RDW Std Deviation 42.3, RDW Coeff of Jr 13.4, Plt Count 181, MPV 10.9, Immature Gran % (Auto) 1.600 H, Neut % (Auto) 71.5 H, Lymph % (Auto) 14.9 L, [place] % (Auto) 8.5, Eos % (Auto) 2.8, Baso % (Auto) 0.7, Absolute Neuts (auto) 5.8, Absolute Lymphs (auto) 1.21, Nucleated RBC % 0, Sodium 135, Potassium 4.0, Chloride 100, Carbon Dioxide 25.0, Anion Gap 10, BUN 32 H, Creatinine 1.50 H, Estim Creat Clear Calc 55.46, Est GFR (MDRD) Non-Af 51 L, BUN/Creatinine Ratio 21.1 H, Glucose 140 H, Calcium 8.8 11/03/24 06:39: POC Glucose 141 H 11/03/24 10:53: POC Glucose 183 H D/C Instructions Call your doctor if you observe: Fever of 101 or Higher, Shortness of breath, Dizziness, Fainting spells, Swelling in the ankles, Chest pain and Increased palpitations (irregular heartbeat) DC O2, CPAP, BIPAP Needs Home O2 Discharge instructions: No Meaningful Use Info Meaningful Use Meaningful Use Diagnoses (Choose all that apply): None applicable Discharge Plan Admission Admit Date/Time: 11/01/24 16:09 Attending Provider: Nehemias Epps Primary Care Provider: Chema Mckeon Consulting Providers: Sandra Johnson Discharge Orders/Prescriptions Prescriptions: Continued duloxetine [Cymbalta] 60 mg capsule,delayed release(DR/EC) 120 mg PO DAILY cholecalciferol (vitamin D3) 50 mcg (2,000 unit) tablet 50 mcg PO DAILY carvedilol 6.25 mg tablet 6.25 mg PO BID Qty: 60 3RF sacubitril-valsartan [Entresto] 24-26 mg tablet 1 tab PO BID Qty: 60 4RF aspirin 81 MG tablet,chewable 81 mg PO DAILY atorvastatin 80 MG tablet 80 mg PO QHS nitroglycerin 0.4 mg tablet, sublingual 0.4 mg sublingual Q5M PRN (Reason: Chest Pain) Patient Comments: Place 1 tablet under tongue as needed for Chest pain. max = 3 doses. If CP persists after 1st dose, call 911 Jardiance 10 mg tablet 10 mg PO DAILY insulin glargine [Lantus Solostar U-100 Insulin] 100 unit/mL (3 mL) insulin pen 40 unit subcut BID Humalog KwikPen Insulin 200 unit/mL (3 mL) insulin pen 0 - 25 unit subcut 4X/DAY hydrochlorothiazide 25 mg tablet 25 mg PO DAILY ondansetron 4 mg tablet,disintegrating 4 mg PO Q6H PRN (Reason: nausea and vomiting) Qty: 7 0RF magnesium oxide 400 mg magnesium capsule 400 mg PO BID Referrals / Follow Up: Chema Mckeon DO [Primary Care Provider] - Within 1 Week Disposition Disposition (needs filled in before D/C Order can be placed): Home, Self Care Charges/Coding Visit Charges Inpatient E&M: 58310 Disch Hosp >30min
--- NOTE | 2024-11-03 16:39 | CASEMGMT ---
Social Work- SW received notice that there are no accepting agencies for HHC. SW called and updated pt . Pt agreeable for pt to d/c home without HHC. SW provided private duty list. AVANI Vickers
--- NOTE | 2024-11-09 10:21 | CASEMGMT ---
This RN CM was notified that [facility] is willing to review the home health referral again, as long as the patient follows up with his primary care provider to see if they can get the correct documentation to support them going out and getting it approved. Per this RN CM?s previous discharge follow-up phone call, the patient stated that he was fine and denied any needs or concerns multiple times. Telephone call back to the patient at this time to inquire if the patient was planning on following up with his primary care provider, and to notify that home health would be willing to reevaluate subsequently. No answer at this time. Telephone call to the patient's POA and , Karen. Karen states that the patient has lied to this RN CM and states that the patient is not doing well. Karen states that the patient has been neglecting himself. Karen states that the patient is refusing to get up or get into the car for any follow-up appointments. Karen states that the patient will not let her care for his wound. Karen states that the patient?s appetite has also been decreased. Karen states that the patient has been using a urinal in the chair and only getting up to use the bathroom whenever the patient needs to have a bowel movement. Karen states that on Wednesday morning, the patient slid out of his chair, and they had to call the squad to help get him up. Karen states that the patient?s hygiene has been horrible. Karen also states that they cannot afford private duty aid. Inquired if the patient was willing to come back into the hospital for reevaluation, Karen states that the patient declines to ?do anything.? Notified Karen that an APS referral would be appropriate due to the self-neglect. Karen states that she agrees to this. Telephone call to Adult Protective Services through [facility]. This music writer reported the above information to APS. APS states that they will be at the home within the next three business days with a beauty consultant for evaluation. APS does have this music writer's contact information. Telephone call back to the patient?s . Karen updated that APS will be at the home within the next three business days and that there will be a beauty consultant involved as well for the protection of the APS professionals. Karen states appreciation, thanks this RN CM, and denies any further questions or concerns at this time.
== END 2024-11-03 17:26 | disposition home or self-care (01) ==
LOC: ED 16:08 → MS3 16:15
PROVIDERS: Admitting Provider Internal Medicine; Emergency Provider Surgery; PCP Family Medicine; Visit Provider Family Medicine
DX: E11.621 Type 2 diabetes mellitus with foot ulcer (principal); L97.529 Non-pressure chronic ulcer of other part of left foot with unspecified severity; I13.0 Hypertensive heart and chronic kidney disease with heart failure and stage 1 through stage 4 chronic kidney disease, or unspecified chronic kidney disease; I50.22 Chronic systolic (congestive) heart failure; E11.22 Type 2 diabetes mellitus with diabetic chronic kidney disease; Z79.4 Long term (current) use of insulin; N18.30 Chronic kidney disease, stage 3 unspecified; E78.5 Hyperlipidemia, unspecified; R53.1 Weakness; I25.10 Atherosclerotic heart disease of native coronary artery without angina pectoris; R53.81 Other malaise; F41.9 Anxiety disorder, unspecified; Z79.84 Long term (current) use of oral hypoglycemic drugs; R62.7 Adult failure to thrive; I25.5 Ischemic cardiomyopathy; Z87.891 Personal history of nicotine dependence; Z79.899 Other long term (current) drug therapy; Z95.1 Presence of aortocoronary bypass graft; F32.A Depression, unspecified; Z99.3 Dependence on wheelchair; Z79.82 Long term (current) use of aspirin
CPT/HCPCS: 36415; 80048; 81001; 82962; 85025; 85027; 96372; 97161; 97165; 97802; 99221; 99285; 99406; A4216; G0378

== ENCOUNTER 2024-11-30 14:50 | Emergency (ER) | payer MEDICARE, SELFPAY ==
[2019-03-06 08:28] VITALS: BMI 29.0
[2024-11-30 14:51] VITALS: BP 134/74; PULSE 90; RESP 28; TEMP 36.4; O2SAT 98; BMI 31.4
[2024-11-30 15:58] VITALS: O2SAT 99
--- NOTE | 2024-11-30 15:58 | EKG12_ITS ---
Test Reason : GENERAL Blood Pressure : */* mmHG Vent. Rate : 79 BPM Atrial Rate : 79 BPM P-R Int : 184 ms QRS Dur : 102 ms QT Int : 408 ms P-R-T Axes : 64 0 111 degrees QTcB Int : 467 ms Normal sinus rhythm Minimal voltage criteria for LVH, may be normal variant ( R in aVL ) Inferior infarct (cited on or before 11-Jan-2019) Abnormal ECG Confirmed by NINA TINEO, TIANNA ([id number]), assistant film editor PB CHÁVEZ ([id number]) on 12/04/2024 6:37:15 AM Referred By: Confirmed By: TIANNA WOOD MD
--- NOTE | 2024-11-30 15:59 | EX.ED.DYSGE1 ---
HPI History of Present Illness Chief Complaint: General Illness Informant: patient and EMS Narrative Narrative: 64-year-old male is chronically disabled and for the most part wheelchair-bound at home with his because of severe bilateral lower extremity neuropathy and a stroke that affected his left side mostly has leg remotely. He is a diabetic. States he is chronically dyspneic, but he feels a little more dyspneic than usual today and weaker than usual. He was trying to get out of his chair and he slid down the side of his due to feeling weaker than usual, bumping his right rib cage on his nearby scooter and he has some soreness and pain there that is worse with breathing. He has had no chest discomfort prior to that. He has chronic orthopnea so because of that and hardware in his back from a remote back surgery he usually does not lay down. Chronic edema in his left leg because he does not have good function of it, that is no different than usual. Denies cough denies fevers. He has some nausea and mild upper abdominal discomfort no diarrhea, he is having bowel movements that are normal and urinating normally. [facility] Medical History Ambulatory dysfunction Chest pain Debility Generalized weakness Depression CKD (chronic kidney disease) stage 3, GFR 30-59 ml/min 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 Obesity Polyp of colon Systolic CHF GERD (gastroesophageal reflux disease) Ischemic cardiomyopathy Essential hypertension Hyperlipidemia Arteriosclerosis of coronary artery in patient with history of myocardial infarction STEMI (ST elevation myocardial infarction) (03/05/19) Type 2 diabetes mellitus CVA (cerebral vascular accident) Syncope and collapse Bradycardia Syncope Anxiety Noncompliance with diabetes treatment Back pain FLORY (acute kidney injury) Nonketotic hyperglycinemia Hematochezia Home Medications ?Medication ?Instructions ?Recorded ?Last Taken ?Type aspirin 81 mg chewable tablet 81 mg PO DAILY heart health 03/10/19 11/01/24 History magnesium oxide 400 mg PO BID supplement 08/08/19 11/01/24 History cholecalciferol (vitamin D3) 50 50 mcg PO DAILY supplement 09/27/19 11/01/24 History mcg (2,000 unit) tablet atorvastatin 80 mg tablet 80 mg PO QHS cholesterol 11/26/19 10/31/24 History nitroglycerin 0.4 mg sublingual 0.4 mg sublingual Q5M PRN Chest 09/12/20 Unknown History tablet Pain empagliflozin 10 mg tablet 10 mg PO DAILY diabetes 11/17/22 11/01/24 History (Jardiance) duloxetine 60 mg capsule,delayed 120 mg PO DAILY depression 11/23/23 11/01/24 History release (Cymbalta) carvedilol 6.25 mg tablet 6.25 mg PO BID heart #60 tabs 03/29/24 11/01/24 Rx sacubitril 24 mg-valsartan 26 mg 1 tab PO BID #60 tabs 03/29/24 11/01/24 Rx tablet (Entresto) hydrochlorothiazide 25 mg tablet 25 mg PO DAILY htn 09/11/24 11/01/24 History ondansetron 4 mg disintegrating 4 mg PO Q6H PRN nausea and 09/11/24 Unknown Rx tablet vomiting #7 tabs insulin glargine 100 unit/mL (3 40 unit subcut BID 11/01/24 11/01/24 History mL) subcutaneous pen (Lantus Solostar U-100 Insulin) insulin lispro 200 unit/mL (3 mL) 0 - 25 unit subcut 4X/DAY 11/01/24 11/01/24 History subcutaneous pen (Humalog KwikPen U-200 Insulin) Allergy/AdvReac Type Severity Reaction Status Date / Time etodolac Allergy Unknown Unknown Verified 11/01/24 12:17 nifedipine (From Adalat) Allergy Unknown Verified 11/01/24 12:17 Family History Father Heart disease Son Kidney disease Surgical History Hx of CABG History of coronary artery stent placement S/P coronary artery bypass graft x 4 (~08/03/19) Stented coronary artery (03/06/19) History of umbilical hernia repair History of back surgery History of lumbar fusion Social History household members: spouse Smoking Status: Current every day smoker tobacco type: pipe alcohol intake: never substance use type: does not use caffeine: No ROS ROS ED Constitutional Constitutional ED: Reports weakness; Denies chills or fever(s) Eyes Eyes: Denies change in vision or diplopia ENT ENT ED: Denies rhinorrhea or sore throat Cardiovascular Cardiovascular: Reports orthopnea; Denies chest pain or palpitations Respiratory/Chest Respiratory/Chest: Reports dyspnea and orthopnea; Denies cough Gastrointestinal Gastrointestinal: Reports abdominal pain and nausea; Denies diarrhea, melena or vomiting Genitourinary Genitourinary ED: Denies dysuria or hematuria Musculoskeletal Musculoskeletal: Denies myalgias or neck pain Integumentary Denies abscess or rash Neurologic Neurologic: Reports paresthesias RLE and LLE and weakness; Denies headache(s) Psychiatric Psychiatric: Denies anxiety or suicidal thoughts EXAM Physical Exam Const Vital Signs: 11/30/24 14:51 11/30/24 14:57 11/30/24 15:58 Temperature 97.6 F L Temperature Source Oral Pulse Rate 90 Respiratory Rate 28 H Respiratory Effort Normal Non-Labored Respiratory Pattern Irregular Blood Pressure 134/74 H Blood Pressure Mean 94 Pulse Ox 98 99 Oxygen Delivery Method Room Air Room Air 11/30/24 16:50 11/30/24 18:00 Temperature Temperature Source Pulse Rate 81 74 Respiratory Rate 81 H 18 Respiratory Effort Respiratory Pattern Blood Pressure 172/88 H 172/84 H Blood Pressure Mean 116 113 Pulse Ox 98 97 Oxygen Delivery Method Room Air Room Air Positive well nourished and well developed General Appearance ED: well developed and NAD HEENT Reports moist mucous membranes normocephalic and atraumatic Eyes PERRL and EOMs intact bilaterally Neck full ROM, no lymphadenopathy, supple and no JVD Chest Wall inspection of chest normal Chest Narrative: Tenderness palpation right anterior lateral lower rib cage around the anterior axillary line ribs approximately 7 and 8. No crepitance or flail or subcutaneous emphysema or obvious signs of trauma externally. Well-healed midline chest surgical scar Resp normal respiratory effort Resp Narrative: Conversive in full sentences. Bibasilar rales more prominent on the left. Trachea midline. Cardio regular rate and regular rhythm GI non-distended GI Narrative: Subjectively tender epigastrium otherwise benign abdomen no pulsatile masses. Normal inspection. Auscultation: normoactive bowel sounds Palpation: soft Back/Spine no CVA tenderness General Back: other FROM Extremity normal to inspection General Extremety ED: Yes edema; Negative for pulses abnormal or tenderness General Extremity: edema bilateral lower extremity Details: moderate (Worse on the left, stable per patient); Negative for pulses abnormal Neuro oriented x3 and CN's II-XII intact bilaterally Neuro Narrative: Decreased sensation both lower legs distally symmetrically. Weak on the left leg at baseline per patient. Sensorium / Orientation: awake and alert Psych mental status grossly normal Skin no rashes or lesions noted and no wounds MDM MDM MDM Narrative Medical decision making narrative: Workup was done to evaluate for right-sided rib fracture, congestive heart failure, other cause of his dyspnea, acute coronary syndrome. He has chronic renal failure and nonspecifically elevated troponin at 33, he has been at this level in the past, and his EKG shows no acute injury pattern or changes compared with his prior. His proBNP is abnormal but for his age and renal function I do not think this necessarily indicate acute decompensated congestive heart failure. Furthermore, his rib series 4 views on my interpretation including PA chest shows no pulmonary edema, pneumothorax, pneumonia, nor rib fracture. Radiology in agreement. His blood counts are unremarkable. On reevaluation, the patient states he feels minimally dyspneic, and he feels like his baseline, he states he has felt like this for years. He is not anticoagulated I discussed working him up for pulmonary embolus, he states he does not want that and would not take a full blood thinner anyway and prefers to be discharged home as he feels like he is at baseline and is wheelchair-bound anyway. I give him a drink of water, we discussed trying some Lasix and he did not want to do that either he is already on HCTZ, does not have excessive edema or pulmonary edema right now, advised to follow-up with his doctor which he is amenable to do. Lab Data Attestation: I reviewed the patient's lab results. Labs: Laboratory Results - last 24 hr 11/30/24 16:10 WBC 10.9 RBC 5.04 Hgb 14.9 Hct 43.2 MCV 85.7 MCH 29.6 MCHC 34.5 RDW Std Deviation 43.1 RDW Coeff of Jr 13.8 Plt Count 192 MPV 10.9 Immature Gran % (Auto) 1.400 H Neut % (Auto) 78.4 H Lymph % (Auto) 9.5 L [place] % (Auto) 7.2 Eos % (Auto) 2.7 Baso % (Auto) 0.8 Absolute Neuts (auto) 8.6 H Absolute Lymphs (auto) 1.04 Nucleated RBC % 0 Sodium 137 Potassium 4.2 Chloride 99 Carbon Dioxide 26.9 Anion Gap 11 BUN 34 H Creatinine 1.45 H Estim Creat Clear Calc 57.48 Est GFR (MDRD) Non-Af 53 L BUN/Creatinine Ratio 23.2 H Glucose 138 H Calcium 9.6 Total Bilirubin 0.80 AST 15 ALT 12 Alkaline Phosphatase 108 Troponin T High Sens 33 H D NT pro BNP II 974 H Total Protein 6.7 Albumin 3.9 Globulin 2.7 Albumin/Globulin Ratio 1.4 Lipase 102 H Radiography Diagnostic Testing: Clinical Impression(s) from Imaging Studies Ribs w/Chest X-Ray 11/30/24 17:15 IMPRESSION: No acute rib fractures. No pneumothorax. Reading Location: [facility] Rhythm Strip Rhythm Strip: Sinus Rhythm Rate: 80 Ectopy: None EKG Initial EKG: Attestation: I personally reviewed and interpreted this EKG as follows: Interpretation: Sinus Rhythm, No Acute Injury Pattern and Non-Specific ST Changes (lat) Prior EKG tracings: available for review Prior: Unchanged Discharge Plan Triage Chief Complaint: General Illness ED Provider: Brett Cazares Dx/Rx/DC Orders Clinical Impression: Generalized weakness, Chronic dyspnea, Acute dyspnea, Contusion of rib on right side, Accidental fall from chair, Chronic renal insufficiency Instructions: ED Dyspnea Prescriptions: No Action duloxetine [Cymbalta] 60 mg capsule,delayed release(DR/EC) 120 mg PO DAILY cholecalciferol (vitamin D3) 50 mcg (2,000 unit) tablet 50 mcg PO DAILY carvedilol 6.25 mg tablet 6.25 mg PO BID Qty: 60 3RF sacubitril-valsartan [Entresto] 24-26 mg tablet 1 tab PO BID Qty: 60 4RF aspirin 81 MG tablet,chewable 81 mg PO DAILY atorvastatin 80 MG tablet 80 mg PO QHS nitroglycerin 0.4 mg tablet, sublingual 0.4 mg sublingual Q5M PRN (Reason: Chest Pain) Patient Comments: Place 1 tablet under tongue as needed for Chest pain. max = 3 doses. If CP persists after 1st dose, call 911 Jardiance 10 mg tablet 10 mg PO DAILY insulin glargine [Lantus Solostar U-100 Insulin] 100 unit/mL (3 mL) insulin pen 40 unit subcut BID Humalog KwikPen Insulin 200 unit/mL (3 mL) insulin pen 0 - 25 unit subcut 4X/DAY hydrochlorothiazide 25 mg tablet 25 mg PO DAILY ondansetron 4 mg tablet,disintegrating 4 mg PO Q6H PRN (Reason: nausea and vomiting) Qty: 7 0RF magnesium oxide 400 mg magnesium capsule 400 mg PO BID Primary Care Provider: Chema Mckeon Referrals: Chema Mckeon DO [Primary Care Provider] - 3-5 Days Print Language: Urdu Disposition Disposition: Home, Self Care
[2024-11-30 16:25] LABS: Hematocrit 43.2 % (40-54); Hemoglobin 14.9 g/dL (13.0-16.5); Immature Granulocytes Count 0.150 X10^3/uL (0.0-0.0); Mean Corp Hgb Conc 34.5 g/dL (32-36); Mean Corpuscular Volume 85.7 fL (80-94); Mean Platelet Vol. 10.9 fl (6.2-12.0); NRBC Flagged by Analyzer 0 % (0-5); Platelet Count 192 K/mm3 (150-450); RBC Distribution Width CV 13.8 % (11.6-14.6); RBC Distribution Width SD 43.1 fl (35.1-43.9); Red Blood Count 5.04 M/mm3 (4.6-6.2); White Blood Count 10.9 K/mm3 (4.4-11.0)
[2024-11-30 16:50] VITALS: BP 172/88; PULSE 81; RESP 81; O2SAT 98
[2024-11-30 17:02] LABS: AST(SGOT) 15 U/L (<=37); Alanine Aminotransfer ALT/SGPT 12 U/L (<=46); Albumin, Serum 3.9 g/dL (3.4-4.8); Alkaline Phosphatase 108 U/L (40-129); Anion Gap 11 (5-15); BUN 34 mg/dL (4-19); BUN/Creat Ratio 23.2 RATIO (10-20); Calcium,Total 9.6 mg/dL (7.6-11.0); Carbon Dioxide 26.9 mmol/L (21.0-32.0); Chloride 99 mmol/L (98-108); Estimated Creatinine Clearance 57.48 ml/min (50-250); Globulin 2.7 g/dL (2.2-4.2); Glucose 138 mg/dL (70-99); Lipase 102 U/L (13-75); Potassium 4.2 mmol/L (3.3-5.1)
[2024-11-30 17:04] LABS: Pro- Brain NATRIURETIC PEPTIDE 974 pg/mL (<=900); Troponin T High Sensitivity 33 ng/L (<=22)
--- NOTE | 2024-11-30 17:15 | RAD_ITS ---
PROCEDURE: RIBS UNI MIN 3V W/PA CHEST 11/30/2024 REASON FOR EXAM: DYSPNEA, RIGHT RIBCAGE INJURY TECHNIQUE: RIBS UNI MIN 3V W/PA CHEST COMPARISON: Chest x-ray 09/11/2024. FINDINGS: Findings: Status post median sternotomy. No cardiomegaly. The lungs are clear. No acute fractures. No pneumothorax. No pleural effusion. No subdiaphragmatic air. RAD/Ribs Uni Min 3V w/PA Chest IMPRESSION: No acute rib fractures. No pneumothorax. Reading Location: [id number]
[2024-11-30 18:00] VITALS: BP 172/84; PULSE 74; RESP 18; O2SAT 97
[2024-11-30 19:16] VITALS: BP 179/120; PULSE 80; RESP 16; TEMP 37.1; O2SAT 95
[2024-11-30 19:24] LABS: Troponin T High Sens 2 HR 31 ng/L (<=22)
== END 2024-11-30 19:31 | disposition home or self-care (01) ==
PROVIDERS: Emergency Provider Emergency Medicine; PCP Family Medicine; Visit Provider Emergency Medicine
DX: S20.211A Contusion of right front wall of thorax, initial encounter (principal); I13.0 Hypertensive heart and chronic kidney disease with heart failure and stage 1 through stage 4 chronic kidney disease, or unspecified chronic kidney disease; I50.22 Chronic systolic (congestive) heart failure; E11.22 Type 2 diabetes mellitus with diabetic chronic kidney disease; E11.40 Type 2 diabetes mellitus with diabetic neuropathy, unspecified; Z79.4 Long term (current) use of insulin; N18.30 Chronic kidney disease, stage 3 unspecified; W07.XXXA Fall from chair, initial encounter; R11.0 Nausea; R10.9 Unspecified abdominal pain; R53.1 Weakness; I25.5 Ischemic cardiomyopathy; E78.5 Hyperlipidemia, unspecified; I25.10 Atherosclerotic heart disease of native coronary artery without angina pectoris; Z79.84 Long term (current) use of oral hypoglycemic drugs; Z79.82 Long term (current) use of aspirin; Z79.899 Other long term (current) drug therapy; Z99.3 Dependence on wheelchair; I25.2 Old myocardial infarction; Z95.1 Presence of aortocoronary bypass graft; F17.290 Nicotine dependence, other tobacco product, uncomplicated
CPT/HCPCS: 71101; 80053; 83690; 83880; 84484; 85025; 93005; 99285; A4216

== ENCOUNTER 2024-12-06 07:43 | Emergency (ER) | payer MEDICARE, SELFPAY ==
[2019-03-06 08:28] VITALS: BMI 29.0
[2024-12-06 07:49] VITALS: BP 123/67; RESP 20; TEMP 36.4; O2SAT 98; BMI 31.6
--- NOTE | 2024-12-06 08:45 | RAD_ITS ---
PROCEDURE: RIBS UNI MIN 3V W/PA CHEST 12/06/2024 REASON FOR EXAM: TRAUMA Right lower rib pain following a fall. TECHNIQUE: RIBS UNI MIN 3V W/PA CHEST COMPARISON: Prior study dated November 30, 2024. FINDINGS: Findings: No acute rib fracture is seen. Other: Prior midline sternotomy. RAD/Ribs Uni Min 3V w/PA Chest IMPRESSION: No acute rib fracture is seen. Reading Location: [facility]
--- NOTE | 2024-12-06 08:45 | EX.ED.DYSGE1 ---
HPI History of Present Illness Chief Complaint: Weakness Narrative Narrative: 64-year-old male past medical history of generalized weakness, chronic left-sided weakness for at least 10 years, diabetes and peripheral neuropathy presents status post fall onto his right side. He states that he was trying to get out of his recliner chair to his wheelchair. He needed to go to the bathroom. He states that the chair broke and he fell onto his right side. He denies hitting his head or loss of consciousness. He states he takes baby aspirin but no blood thinners. He laid on his electric scooter for about 30 minutes and his pushed his life alert. Paramedics came, and brought him to the hospital. He states that he has some right-sided rib soreness but denies any difficulty breathing. He states he has no new weakness compared to his baseline. No fevers or chills, no other symptoms. He states he feels well already and could go home now. [facility] Medical History Obesity (BMI 30.0-34.9) Ambulatory dysfunction Chest pain Debility Generalized weakness Depression CKD (chronic kidney disease) stage 3, GFR 30-59 ml/min 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 Obesity Polyp of colon Systolic CHF GERD (gastroesophageal reflux disease) Ischemic cardiomyopathy Essential hypertension Hyperlipidemia Arteriosclerosis of coronary artery in patient with history of myocardial infarction STEMI (ST elevation myocardial infarction) (03/05/19) Type 2 diabetes mellitus CVA (cerebral vascular accident) Syncope and collapse Bradycardia Syncope Anxiety Noncompliance with diabetes treatment Back pain FLORY (acute kidney injury) Nonketotic hyperglycinemia Hematochezia Home Medications ?Medication ?Instructions ?Recorded ?Last Taken ?Type aspirin 81 mg chewable tablet 81 mg PO DAILY heart health 03/10/19 11/01/24 History magnesium oxide 400 mg PO BID supplement 08/08/19 11/01/24 History cholecalciferol (vitamin D3) 50 50 mcg PO DAILY supplement 09/27/19 11/01/24 History mcg (2,000 unit) tablet atorvastatin 80 mg tablet 80 mg PO QHS cholesterol 11/26/19 10/31/24 History nitroglycerin 0.4 mg sublingual 0.4 mg sublingual Q5M PRN Chest 09/12/20 Unknown History tablet Pain empagliflozin 10 mg tablet 10 mg PO DAILY diabetes 11/17/22 11/01/24 History (Jardiance) duloxetine 60 mg capsule,delayed 120 mg PO DAILY depression 11/23/23 11/01/24 History release (Cymbalta) carvedilol 6.25 mg tablet 6.25 mg PO BID heart #60 tabs 03/29/24 11/01/24 Rx sacubitril 24 mg-valsartan 26 mg 1 tab PO BID #60 tabs 03/29/24 11/01/24 Rx tablet (Entresto) hydrochlorothiazide 25 mg tablet 25 mg PO DAILY htn 09/11/24 11/01/24 History ondansetron 4 mg disintegrating 4 mg PO Q6H PRN nausea and 09/11/24 Unknown Rx tablet vomiting #7 tabs insulin glargine 100 unit/mL (3 40 unit subcut BID 11/01/24 11/01/24 History mL) subcutaneous pen (Lantus Solostar U-100 Insulin) insulin lispro 200 unit/mL (3 mL) 0 - 25 unit subcut 4X/DAY 11/01/24 11/01/24 History subcutaneous pen (Humalog KwikPen U-200 Insulin) Allergy/AdvReac Type Severity Reaction Status Date / Time etodolac Allergy Unknown Unknown Verified 11/01/24 12:17 nifedipine (From Adalat) Allergy Unknown Verified 11/01/24 12:17 Family History Father Heart disease Son Kidney disease Surgical History Hx of CABG History of coronary artery stent placement S/P coronary artery bypass graft x 4 (~08/03/19) Stented coronary artery (03/06/19) History of umbilical hernia repair History of back surgery History of lumbar fusion Social History household members: spouse Smoking Status: Current every day smoker tobacco type: pipe alcohol intake: never substance use type: does not use caffeine: No ROS ROS ED ROS Narrative Review of systems positive for right-sided rib pain. No shortness of breath. Denies hitting his head, loss of consciousness, no neck pain. Denies other injuries. No new weakness over baseline. Chronic left-sided weakness. EXAM Physical Exam Narrative Exam Narrative: GCS 15. ABCs intact. HEENT examination grossly unremarkable. Neck soft supple. Cardiovascular examination regular rate and rhythm. Lungs clear to auscultation bilaterally. Mild tenderness to palpation right lateral ribs. No crepitance. No shoulder pain or crepitance. Full range of motion. Abdomen soft and nontender with positive bowel sounds. Neurological examination shows him to be awake, alert, drinking a glass of water during history and physical. Noted left-sided weakness at baseline per patient. Const Vital Signs: 12/06/24 07:47 12/06/24 07:49 Temperature 97.6 F L Temperature Source Oral Respiratory Rate 20 H Respiratory Effort Short of Breath Respiratory Pattern Normal Blood Pressure 123/67 H Blood Pressure Mean 85 Pulse Ox 98 Oxygen Delivery Method Room Air MDM MDM MDM Narrative Medical decision making narrative: Differential diagnosis includes but not limited to right sided rib fracture versus contusion. Regarding his weakness, he states he feels the same as he had previously. I discussed with him workup for generalized weakness, but he states he has had this weakness for 10 years. Additionally, he lives at home, and does not want to be admitted for any PT OT or be placed in a rehabilitation facility. I offered him analgesia for his right rib pain but he declined. Through shared decision making, x-rays of the right ribs will be obtained to help rule out fracture. On my independent interpretation, there is no evidence of acute fracture or pneumothorax. I reviewed the radiology report which confirms my independent interpretation. Upon repeat examination patient resting comfortably. He is motivated for discharge. He will take [id number] medications as needed and follow-up with his primary care provider. Return instructions to the emergency department were reviewed. Disposition is discharged home in stable condition. History & Record Review Discussion w/independent historian: Patient Radiography Diagnostic Testing: Clinical Impression(s) from Imaging Studies Ribs w/Chest X-Ray 12/06/24 08:45 IMPRESSION: No acute rib fracture is seen. Reading Location: [id number] Discharge Plan Triage Chief Complaint: Weakness ED Provider: Richie Douglas Dx/Rx/DC Orders Clinical Impression: Fall from chair, Contusion of ribs Instructions: ED Mechanical Fall, ED Bruise, Rib Prescriptions: No Action duloxetine [Cymbalta] 60 mg capsule,delayed release(DR/EC) 120 mg PO DAILY cholecalciferol (vitamin D3) 50 mcg (2,000 unit) tablet 50 mcg PO DAILY carvedilol 6.25 mg tablet 6.25 mg PO BID Qty: 60 3RF sacubitril-valsartan [Entresto] 24-26 mg tablet 1 tab PO BID Qty: 60 4RF aspirin 81 MG tablet,chewable 81 mg PO DAILY atorvastatin 80 MG tablet 80 mg PO QHS nitroglycerin 0.4 mg tablet, sublingual 0.4 mg sublingual Q5M PRN (Reason: Chest Pain) Patient Comments: Place 1 tablet under tongue as needed for Chest pain. max = 3 doses. If CP persists after 1st dose, call 911 Jardiance 10 mg tablet 10 mg PO DAILY insulin glargine [Lantus Solostar U-100 Insulin] 100 unit/mL (3 mL) insulin pen 40 unit subcut BID Humalog KwikPen Insulin 200 unit/mL (3 mL) insulin pen 0 - 25 unit subcut 4X/DAY hydrochlorothiazide 25 mg tablet 25 mg PO DAILY ondansetron 4 mg tablet,disintegrating 4 mg PO Q6H PRN (Reason: nausea and vomiting) Qty: 7 0RF magnesium oxide 400 mg magnesium capsule 400 mg PO BID Primary Care Provider: Chema Mckeon Referrals: Chema Mckeon DO [Primary Care Provider] - 1 Week if not improving Activity Restrictions/Additional Instructions: [id number] medications as needed for pain. Return with fever, increased difficulty breathing, new or worsening symptoms. Print Language: Vietnamese Disposition Disposition: Home, Self Care
[2024-12-06 09:44] VITALS: BP 151/81; PULSE 71; RESP 17; TEMP 36.6; O2SAT 98
[2024-12-06 09:53] VITALS: BP 151/81; PULSE 72; RESP 18; TEMP 36.6; O2SAT 97
== END 2024-12-06 10:47 | disposition home or self-care (01) ==
PROVIDERS: Emergency Provider Emergency Medicine; PCP Family Medicine; Visit Provider Emergency Medicine
DX: S20.20XA Contusion of thorax, unspecified, initial encounter (principal); I50.22 Chronic systolic (congestive) heart failure; I13.0 Hypertensive heart and chronic kidney disease with heart failure and stage 1 through stage 4 chronic kidney disease, or unspecified chronic kidney disease; E11.22 Type 2 diabetes mellitus with diabetic chronic kidney disease; Z79.4 Long term (current) use of insulin; N18.30 Chronic kidney disease, stage 3 unspecified; R53.1 Weakness; I25.10 Atherosclerotic heart disease of native coronary artery without angina pectoris; W07.XXXA Fall from chair, initial encounter; E78.5 Hyperlipidemia, unspecified; I25.2 Old myocardial infarction; Z86.73 Personal history of transient ischemic attack (TIA), and cerebral infarction without residual deficits; Z79.82 Long term (current) use of aspirin; Z79.899 Other long term (current) drug therapy; F41.9 Anxiety disorder, unspecified; Z79.84 Long term (current) use of oral hypoglycemic drugs; Z95.1 Presence of aortocoronary bypass graft; Z95.5 Presence of coronary angioplasty implant and graft; F17.290 Nicotine dependence, other tobacco product, uncomplicated
CPT/HCPCS: 71101; 99284; A4216

== ENCOUNTER 2024-12-29 07:40 | Observation (INO) | payer MEDICARE, SELFPAY ==
[2019-03-06 08:28] VITALS: BMI 29.0
[2024-12-29] VITALS (12 sets, daily range): BP systolic 118–186; BP diastolic 61–92; PULSE 46–96; RESP 16–23; TEMP 36.4–37.1; O2SAT 95–100; BMI 30.8; BMI 28.7
--- NOTE | 2024-12-29 07:53 | ED.VIS.CHEST ---
HPI History of Present Illness Chief Complaint: Chest Pain [facility] Medical History Obesity (BMI 30.0-34.9) Ambulatory dysfunction Chest pain Debility Generalized weakness Depression CKD (chronic kidney disease) stage 3, GFR 30-59 ml/min 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 Obesity Polyp of colon Systolic CHF GERD (gastroesophageal reflux disease) Ischemic cardiomyopathy Essential hypertension Hyperlipidemia Arteriosclerosis of coronary artery in patient with history of myocardial infarction STEMI (ST elevation myocardial infarction) (03/05/19) Type 2 diabetes mellitus CVA (cerebral vascular accident) Syncope and collapse Bradycardia Syncope Anxiety Noncompliance with diabetes treatment Back pain FLORY (acute kidney injury) Nonketotic hyperglycinemia Hematochezia Home Medications ?Medication ?Instructions ?Recorded ?Last Taken ?Type aspirin 81 mg chewable tablet 81 mg PO DAILY heart health 03/10/19 11/01/24 History magnesium oxide 400 mg PO BID supplement 08/08/19 11/01/24 History cholecalciferol (vitamin D3) 50 50 mcg PO DAILY supplement 09/27/19 11/01/24 History mcg (2,000 unit) tablet atorvastatin 80 mg tablet 80 mg PO QHS cholesterol 11/26/19 10/31/24 History nitroglycerin 0.4 mg sublingual 0.4 mg sublingual Q5M PRN Chest 09/12/20 Unknown History tablet Pain empagliflozin 10 mg tablet 10 mg PO DAILY diabetes 11/17/22 11/01/24 History (Jardiance) duloxetine 60 mg capsule,delayed 120 mg PO DAILY depression 11/23/23 11/01/24 History release (Cymbalta) carvedilol 6.25 mg tablet 6.25 mg PO BID heart #60 tabs 03/29/24 11/01/24 Rx sacubitril 24 mg-valsartan 26 mg 1 tab PO BID #60 tabs 03/29/24 11/01/24 Rx tablet (Entresto) hydrochlorothiazide 25 mg tablet 25 mg PO DAILY htn 09/11/24 11/01/24 History ondansetron 4 mg disintegrating 4 mg PO Q6H PRN nausea and 09/11/24 Unknown Rx tablet vomiting #7 tabs insulin glargine 100 unit/mL (3 40 unit subcut BID 11/01/24 11/01/24 History mL) subcutaneous pen (Lantus Solostar U-100 Insulin) insulin lispro 200 unit/mL (3 mL) 0 - 25 unit subcut 4X/DAY 11/01/24 11/01/24 History subcutaneous pen (Humalog KwikPen U-200 Insulin) Allergy/AdvReac Type Severity Reaction Status Date / Time etodolac Allergy Unknown Unknown Verified 12/29/24 07:42 nifedipine (From Adalat) Allergy Unknown Verified 12/29/24 07:42 Family History Father Heart disease Son Kidney disease Surgical History Hx of CABG History of coronary artery stent placement S/P coronary artery bypass graft x 4 (~08/03/19) Stented coronary artery (03/06/19) History of umbilical hernia repair History of back surgery History of lumbar fusion Social History household members: spouse Smoking Status: Current every day smoker tobacco type: pipe alcohol intake: never substance use type: does not use caffeine: No EXAM Physical Exam Const Vital Signs: 12/29/24 07:42 12/29/24 07:45 12/29/24 08:24 Temperature 97.7 F L Temperature Source Oral Pulse Rate 80 Respiratory Rate 17 Respiratory Effort Normal Non-Labored Respiratory Pattern Normal Blood Pressure 143/83 H Blood Pressure Mean 103 Pulse Ox 100 Oxygen Delivery Method Room Air Room Air 12/29/24 08:40 12/29/24 10:00 12/29/24 11:00 Temperature Temperature Source Pulse Rate 80 78 85 Respiratory Rate 23 H 16 18 Respiratory Effort Respiratory Pattern Blood Pressure 127/81 H 126/78 H 124/78 H Blood Pressure Mean 96 94 93 Pulse Ox 99 98 98 Oxygen Delivery Method Room Air Room Air Room Air 12/29/24 12:00 12/29/24 13:00 12/29/24 14:12 Temperature 98.7 F Temperature Source Pulse Rate 46 L 71 71 Respiratory Rate 16 18 18 Respiratory Effort Respiratory Pattern Blood Pressure 118/71 138/76 H 136/61 H Blood Pressure Mean 86 96 86 Pulse Ox 98 98 99 Oxygen Delivery Method Room Air Room Air MDM MDM MDM Narrative Medical decision making narrative: HISTORY OF PRESENT ILLNESS: Chief complaint: Chest pain 64-year-old male history of CVA, debility, hyperlipidemia, CAD status post stents, status post CABG x 5 in 2020, CKD 3, hypertension, prediabetes, GERD, ischemic cardiomyopathy, CHF, tobacco abuse presents with chest pain. He states he woke up with chest pain this morning. The pain is described as sharp, burning, pressure. It is not worse with exertion. Is not worse with a deep breath. It is not similar to prior cardiac events including heart attack. He denies associated shortness of breath. Denies associated cough fever or chills. Does note some nausea and vomiting this morning. Denies diaphoresis. Denies leg swelling. The patient denies recent surgery in the last 4 weeks or immobilization in the last 3 days, denies previous diagnosis of DVT or PE, hemoptysis, unilateral leg swelling or malignancy with treatment the last 6 months or palliative. No estrogen use noted. Patient denies sudden onset of pain, no tearing sensation, no migratory symptoms, no new numbness, weakness or loss of sensation. Patient denies family history or personal history of Connective tissue disorders (Marfan's Syndrome, Flor Danlos etc) REVIEW OF SYSTEMS: Pertinent positives: Chest pain, nausea and vomiting Pertinent negatives: Shortness of breath PHYSICAL EXAM: Nursing triage notes reviewed, Vital signs reviewed Constitutional: please see mdm HENT: MMM Eyes: Pupils equal round and reactive to light, Extraocular muscles intact Neck: No stridor, no JVD, full neck ROM Lungs: Clear to auscultation, No wheezing or rales. No increased work of breathing, no conversational dyspnea, no accessory muscle use, no nasal flaring. No respiratory distress noted Heart: Regular rate and rhythm, No murmurs, No rubs and No gallops, 2+ distal pulses (radial, femoral, posterior tibial) in all extremities Abdomen: Soft, there is no tenderness, rigidity, rebound or guarding, no obvious peritoneal signs, no palpable pulsatile abdominal masses, no auscultated abdominal bruit : No CVAT Extremities: No edema Neuro: No new focal neurological deficits, cranial nerves II through XII intact, 5/5 strength in all present extremities. Intact sensation to light touch in all present extremities, 2+ reflexes bilateral patella tendons. Skin: No rash or lesions noted MEDICAL DECISION MAKING: Chief Complaint: please see HPI External records reviewed: Reviewed echocardiogram from 2023 which showed ejection fraction 30% Factors affecting care: as per [facility] Social determinants of health: n history of tobacco abuse History obtained from others: EMS Consults: none [facility] Narrative: The patient was initially hemodynamically stable, afebrile and nontoxic-appearing. No focal cardiopulmonary abnormalities. No stigmata of VTE, CHF or aortic dissection initial exam. Abdomen soft and nontender. The patient abdominal exam was not consistent with a bowel obstruction or perforation. I considered the following differential diagnosis: ACS, anemia, electrolyte disturbance, arrhythmia, PE, aortic dissection, pneumothorax, pneumonia I obtained a broad lab and imaging workup to further determine if the patient was suffering from a life-threatening etiology. Initially we treated the patient with 4 mg IV Zofran ALL IMAGES (IF OBTAINED) HAVE BEEN PERSONALLY REVIEWED AND INTERPRETED BY MYSELF. EKG with normal sinus rhythm rate of 80, frequent PVCs, normal axis, prolonged QTc interval, no significant changes from prior EKG noted from November 2024 CBC with leukocytosis suggestive of systemic inflammation, no anemia or thrombocytopenia noted BMP without significant electrolyte maladies, no significant change in renal function Initial troponin indeterminate, delta troponin is also determined however if changed by greater than 6, third troponin remained stable Chest x-ray was read and reviewed personally myself shows no evidence of obvious pneumonia, pneumothorax or heart failure. Radiologist agrees my interpretation On reevaluation the patient's vital signs remained stable. He complains of ongoing nausea and vomiting despite Zofran and Reglan so he was given 1 mg of IV Haldol as a third line agent. He continued to complain of nausea and vomiting. Given his elevated white blood cell count concern for systemic inflammation and ongoing tractable nausea vomiting I did obtain a CT scan of the abdomen pelvis rule out acute surgical pathology. CT scan abdomen pelvis was negative for acute surgical pathology Operative admit the patient given intractable nausea and vomiting, chest pain concerning troponin values. Discussed with Dr. Haro agreed to admit the patient to the PCU. The patient and/or family, caregivers express understanding. The patient and/or family, caregivers agrees with the plan. Shared decision making: I will have a discussion with the patient and or visitors regarding risk/benefits of further testing or admission. They will be made aware of of the risk/benefits inherent in this decision they will be given the opportunity to voice understanding. Total critical care time today provided was at least 0 minutes. This excludes separately billable procedures. Critical care time (if documented) is secondary to the patient having high probability of clinically significant/life threatening deterioration in the patient's condition which required my urgent intervention. Impression: 1. Acute chest pain 2. History of CAD 3. Intractable nausea and vomiting Dispo: Admit to PCU This note was generated with Stemnion dictation software. It may contain incorrect words, spelling, and punctuation that were not noted in review of the chart prior to signing. Lab Data Labs: Laboratory Results - last 24 hr 12/29/24 12/29/24 12/29/24 08:10 10:24 12:35 WBC 15.3 H RBC 4.97 Hgb 14.8 Hct 42.7 MCV 85.9 MCH 29.8 MCHC 34.7 RDW Std Deviation 43.8 RDW Coeff of Jr 13.9 Plt Count 218 MPV 10.7 Immature Gran % (Auto) 0.900 Neut % (Auto) 83.1 H Lymph % (Auto) 8.6 L Chaves % (Auto) 6.4 Eos % (Auto) 0.8 Baso % (Auto) 0.2 Absolute Neuts (auto) 12.7 H Absolute Lymphs (auto) 1.31 Nucleated RBC % 0 Sodium 136 Potassium 4.0 Chloride 93 L Carbon Dioxide 28.2 Anion Gap 14 BUN 29 H Creatinine 1.41 H Estim Creat Clear Calc 58.50 Est GFR (MDRD) Non-Af 55 L BUN/Creatinine Ratio 20.2 H Glucose 97 Calcium 9.6 Troponin T High Sens 49 H D Troponin T Hi Sens 2 Hr 40 H Troponin T Hi Sens 4Hr 38 H Radiography Diagnostic Testing: Clinical Impression(s) from Imaging Studies Chest X-Ray 12/29/24 08:29 IMPRESSION: Status post midline sternotomy. Borderline cardiomegaly. The lungs are clear. Reading Location: [facility] Abdomen/Pelvis CT 12/29/24 11:29 IMPRESSION: No acute cardiopulmonary abnormalities. Reading Location: [facility] Discharge Plan Triage Chief Complaint: Chest Pain ED Provider: Puneet Rosa Dx/Rx/DC Orders Prescriptions: No Action duloxetine [Cymbalta] 60 mg capsule,delayed release(DR/EC) 120 mg PO DAILY cholecalciferol (vitamin D3) 50 mcg (2,000 unit) tablet 50 mcg PO DAILY carvedilol 6.25 mg tablet 6.25 mg PO BID Qty: 60 3RF sacubitril-valsartan [Entresto] 24-26 mg tablet 1 tab PO BID Qty: 60 4RF aspirin 81 MG tablet,chewable 81 mg PO DAILY atorvastatin 80 MG tablet 80 mg PO QHS nitroglycerin 0.4 mg tablet, sublingual 0.4 mg sublingual Q5M PRN (Reason: Chest Pain) Patient Comments: Place 1 tablet under tongue as needed for Chest pain. max = 3 doses. If CP persists after 1st dose, call 911 Jardiance 10 mg tablet 10 mg PO DAILY insulin glargine [Lantus Solostar U-100 Insulin] 100 unit/mL (3 mL) insulin pen 40 unit subcut BID Humalog KwikPen Insulin 200 unit/mL (3 mL) insulin pen 0 - 25 unit subcut 4X/DAY hydrochlorothiazide 25 mg tablet 25 mg PO DAILY ondansetron 4 mg tablet,disintegrating 4 mg PO Q6H PRN (Reason: nausea and vomiting) Qty: 7 0RF magnesium oxide 400 mg magnesium capsule 400 mg PO BID Primary Care Provider: Chema Mckeon Referrals: Chema Mckeon DO [Primary Care Provider, Family Practice] Print Language: Mohawk
--- NOTE | 2024-12-29 08:15 | EKG12_ITS ---
Test Reason : CP Blood Pressure : */* mmHG Vent. Rate : 80 BPM Atrial Rate : * BPM P-R Int : * ms QRS Dur : 86 ms QT Int : 462 ms P-R-T Axes : * 9 116 degrees QTcB Int : 532 ms Normal sinus rhythm Inferior infarct (cited on or before 11-Jan-2019) ST & T wave abnormality, consider anterolateral ischemia Abnormal ECG Confirmed by EDVIN TINEO, ZAK ([id number]), loan expeditor PB CHÁVEZ ([id number]) on 01/01/2025 8:02:00 AM Referred By: DEMARCUS Confirmed By: ZAK PARDO MD
[2024-12-29] MEDS: Famotidine 200 MG/20 ML MDV 20 MG in 0.9% Normal Saline (Pres. free 8 ML 300 MG IV (08:18)
--- NOTE | 2024-12-29 08:29 | RAD_ITS ---
PROCEDURE: CHEST 1 VIEW (PORTABLE) 12/29/2024 REASON FOR EXAM: CHEST PAIN TECHNIQUE: Frontal view of the chest. COMPARISON: Prior study dated December 06, 2024. FINDINGS: Hardware: EKG electrodes are seen Heart: Prior midline sternotomy. Borderline cardiomegaly. Atherosclerotic calcification of the aortic arch. Lungs: Lungs are clear. Bones: Degenerative changes are identified within the thoracic spine. Other: RAD/Chest 1 View (Portable) IMPRESSION: Status post midline sternotomy. Borderline cardiomegaly. The lungs are clear. Reading Location: [place] [id number]
[2024-12-29 08:50] LABS: Hematocrit 42.7 % (40-54); Hemoglobin 14.8 g/dL (13.0-16.5); Immature Granulocytes Count 0.130 X10^3/uL (0.0-0.0); Mean Corp Hgb Conc 34.7 g/dL (32-36); Mean Corpuscular Volume 85.9 fL (80-94); Mean Platelet Vol. 10.7 fl (6.2-12.0); NRBC Flagged by Analyzer 0 % (0-5); Platelet Count 218 K/mm3 (150-450); RBC Distribution Width CV 13.9 % (11.6-14.6); RBC Distribution Width SD 43.8 fl (35.1-43.9); Red Blood Count 4.97 M/mm3 (4.6-6.2); White Blood Count 15.3 K/mm3 (4.4-11.0)
[2024-12-29 09:05] LABS: Anion Gap 14 (5-15); BUN 29 mg/dL (4-19); BUN/Creat Ratio 20.2 RATIO (10-20); Calcium,Total 9.6 mg/dL (7.6-11.0); Carbon Dioxide 28.2 mmol/L (21.0-32.0); Chloride 93 mmol/L (98-108); Estimated Creatinine Clearance 58.50 ml/min (50-250); Glucose 97 mg/dL (70-99); Potassium 4.0 mmol/L (3.3-5.1); Troponin T High Sensitivity 49 ng/L (<=22)
[2024-12-29 11:05] LABS: Troponin T High Sens 2 HR 40 ng/L (<=22)
--- NOTE | 2024-12-29 11:29 | CT_ITS ---
PROCEDURE: ABDOMEN/PELVIS W IV CONT ONLY 12/29/2024 REASON FOR EXAM: EPIGASTRIC PAIN TECHNIQUE: Procedure Code: [id number] Modality: CT Procedure: ABDOMEN/PELVIS W IV CONT ONLY Coronal and Sagittal reconstruction series were provided. CONTRAST: Isovue 370 VOLUME: 94 mL mL One or more dose reduction techniques were used (e.g., Automated exposure control, adjustment of the mA and/or kV according to patient size, use of iterative reconstruction technique. RADIATION DOSE SUMMARY: CTDlvol: 21.50 mGy DLP: 1186.88 mGycm COMPARISON: CT abdomen and pelvis 10/02/2024. FINDINGS: Lung bases: Clear. Liver: Unremarkable. Gallbladder: Unremarkable. No biliary dilation. Spleen: Unremarkable. Pancreas: Unremarkable. Adrenals: Unremarkable. Kidneys: No hydronephrosis or nephrolithiasis. Bladder: Unremarkable. Reproductive Organs: Unremarkable. Bowel: No bowel wall thickening or bowel obstruction. Large amount of fecal load in the colon. Appendix: Normal. Lymph nodes: No lymphadenopathy. Vasculature: Atherosclerotic calcifications. Peritoneum / Retroperitoneum: No free air or free fluid. Bones: Status post posterior fusion of L4, L5 and S1. No acute bony abnormalities. CT/Abdomen/Pelvis W IV Cont ONLY IMPRESSION: No acute cardiopulmonary abnormalities. Reading Location: [facility]
[2024-12-29 13:17] LABS: Troponin T High Sens 4 HR 38 ng/L (<=22)
--- NOTE | 2024-12-29 15:35 | ECHOCS_ITS ---
Reason For Study Reason For Study: CORONARY ARTERY DISEASE Procedure This was a 2D Doppler, Color Flow transthoracic echocardiogram. Contrast injection was performed. Exam performed in department. Left Ventricle Normal LV size. The left ventricular ejection fraction is 40 %. Mild segmental systolic dysfunction (see wall motion). Infero-Basal: Hypokinetic. There are regional wall motion abnormalities as specified. Right Ventricle Normal RV size. Normal systolic function. Atria Normal left atrium. Normal right atrium. Mitral Valve Normal mitral valve. Tricuspid Valve Normal tricuspid valve. Aortic Valve Trisinus/trileaflet aortic valve. Pulmonic Valve Normal pulmonic valve. Great Vessels Normal aortic root. The pulmonary artery is normal size. Inferior vena cava collapse with respiration. Pericardium/Pleural No pericardial effusion. Medication Diluted definity 3ml given slow IV push to enhance endocardial definition. MMode/2D Measurements & Calculations LVIDd: 5.2 cm IVSd: 1.4 cm LVOT diam: 1.9 cm LVIDs: 4.3 cm LVPWd: 0.98 cm RVDd: 2.9 cm FS: 16.4 % LVOT area: 2.9 cm2 asc Aorta Diam: 3.5 cm LAV(MOD-bp): 50.4 ml LVAd ap4: 31.0 cm2 LAV(MOD-bp) Indexed: 23.2 ml/m2 LVLd ap4: 8.5 cm LAV(MOD-sp2): 47.8 ml EDV(MOD-sp4): 92.9 ml LAV(MOD-sp4): 47.4 ml EDV(sp4-el): 96.5 ml LVAs ap4: 23.9 cm2 LVLs ap4: 7.9 cm ESV(MOD-sp4): 61.8 ml ESV(sp4-el): 61.2 ml EF(MOD-sp4): 33.5 % EF(sp4-el): 36.5 % LVAd ap2: 32.5 cm2 SV(MOD-sp4): 31.1 ml SV(MOD-sp2): 33.6 ml LVLd ap2: 8.3 cm SI(MOD-sp4): 14.3 ml/m2 SI(MOD-sp2): 15.4 ml/m2 EDV(MOD-sp2): 103.4 ml EDV(sp2-el): 108.5 ml LVAs ap2: 25.9 cm2 LVLs ap2: 7.9 cm ESV(MOD-sp2): 69.8 ml ESV(sp2-el): 72.0 ml EF(MOD-sp2): 32.5 % SV(sp4-el): 35.2 ml Ao sinus diam: 3.[address] Junction: 2.7 cm LA dimension(2D): 4.3 cm LA A4 area: 16.9 cm2 RA A4 area: 8.7 cm2 TAPSE: 1.7 cm Time Measurements MV dec time: 0.22 sec Doppler Measurements & Calculations MV E max kulwinder: 38.1 cm/sec Med Peak E' Kulwinder: 5.3 cm/sec MV dec slope: 177.1 cm/sec2 MV A max kulwinder: 77.3 cm/sec E/E' med: 7.2 MV E/A: 0.49 Ao V2 max: 95.6 cm/sec LV V1 max: 76.3 cm/sec SV(LVOT): 45.3 ml Ao max P.7 mmHg LV V1 max P.3 mmHg Ao V2 mean: 68.4 cm/sec LV V1 mean P.4 mmHg Ao mean P.1 mmHg LV V1 mean: 56.1 cm/sec Ao V2 VTI: 19.5 cm LV V1 VTI: 15.7 cm AV (velocity ratio): 0.80 STACI(I,D): 2.3 cm2 STACI(V,D): 2.3 cm2 PA V2 max: 98.5 cm/sec TR max kulwinder: 228.4 cm/sec TR max P.9 mmHg ECHO/Echo Complete W/ Contrast Interpretation Summary Normal LV size. The left ventricular ejection fraction is 40 %. Mild segmental systolic dysfunction (see wall motion). Infero-Basal: Hypokinetic There are regional wall motion abnormalities as specified. Contrast injection was performed. Ordering Physician: Chema Haro Referring Physician: Chema Mckeon Performed By: Kristy Bustamante RDCS
--- NOTE | 2024-12-29 15:42 | CHAPLAIN ---
Type of Pastoral Visit ___ Initial Visit ___ Follow-up Visit ___ On-call Visit ___ General Patient Visit ___ Spiritual Assessment ___ Family Conference ___ Bereavement ___ Rapid Response ___ Code Blue ___ Other (describe below) Pastoral Care Referral From ___ Patient ___ Family ___ Nurse ___ Physician ___ Oil Driller ___ [employer] ___ Other (describe below) Sacrament/Intervention ___ Active listening ___ Anointing ___ Religious ___ Bereavement ___ Communion ___ Padmini exploration ___ ___ Life review ___ Prayer ___ Reconciliation ___ Sacrament of Sick ___ Supportive presence ___ Wedding ___ Other (describe below) Pastoral Comments during rounds in the ED a BRIQUETTING MACHINE OPERATOR remembered that this patient had requested a visit from the bootmaker hand; entered room and patient and immediately he expresses gladness to see this bootmaker hand; pt is somewhat tearful about being in the ED again and having a difficult time to breath; pt states his condition and what brought him into hospital; pt expresses his concerns and feelings; pt is supported by his family; spouse walks into the room and offers her support at this time; both talk about family and about how they value the visits of the bootmaker hand; pt welcomes presence and prayer; pt expects to be admitted and is open to further visits on Wednesday if he is still admitted
[2024-12-29] MEDS: 0.9% Normal Saline (1000mL) 1,000 ML 100 ML IV (17:30)
--- NOTE | 2024-12-29 20:35 | PCM.HP.STD ---
HPI - General General Date of Admission: 12/29/24 Date of Service: 12/29/24 Chief Complaint: Chest pain, nausea and vomiting HPI Narrative NELSY ROGERS, is a 64 M who presents to the emergency room at [facility] with complaints of chest pain which he describes as sharp, burning, and pressure-like in nature that started this morning. Patient denied worsening with exertion. Patient also complained of some nausea and vomiting that started this morning. EKG was obtained which showed a normal sinus rhythm, no evidence of acute ischemic changes were noted and the EKG showed no significant changes from prior EKG in November 2024 according to the emergency room physicians documentation. Patient was given medication for nausea and vomiting which included Reglan Zofran and Haldol, patient however continued to complain of nausea and was unable to eat. CT scan of the abdomen and pelvis was negative for acute surgical pathology, 3 troponins were obtained-the first 1 was 49, second 1 was 40, the third 1 was 38. Chemistry profile was abnormal for creatinine of 1.41, BUN of 29, and patient's white blood cell count was 15.3. Chest x-ray showed no acute process. Patient will be placed in observation status on PCU for chest pain-etiology unclear-and gastroenteritis, he will be given IV fluids and undergo a resting cardiac stress test on 12/30/2024. Echocardiogram will also be ordered. [facility] Medical History (Updated 12/29/24 @ 20:[address] 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 Obesity Polyp of colon Systolic CHF GERD (gastroesophageal reflux disease) Ischemic cardiomyopathy Essential hypertension Hyperlipidemia Arteriosclerosis of coronary artery in patient with history of myocardial infarction STEMI (ST elevation myocardial infarction) (03/05/19) Type 2 diabetes mellitus CVA (cerebral vascular accident) Syncope and collapse Bradycardia Syncope Anxiety Noncompliance with diabetes treatment Back pain FLORY (acute kidney injury) Nonketotic hyperglycinemia Hematochezia Home Medications ?Medication ?Instructions ?Recorded ?Last Taken ?Type aspirin 81 mg chewable tablet 81 mg PO DAILY heart health 03/10/19 11/01/24 History magnesium oxide 400 mg PO BID supplement 08/08/19 11/01/24 History cholecalciferol (vitamin D3) 50 50 mcg PO DAILY supplement 09/27/19 11/01/24 History mcg (2,000 unit) tablet atorvastatin 80 mg tablet 80 mg PO QHS cholesterol 11/26/19 10/31/24 History nitroglycerin 0.4 mg sublingual 0.4 mg sublingual Q5M PRN Chest 09/12/20 Unknown History tablet Pain empagliflozin 10 mg tablet 10 mg PO DAILY diabetes 11/17/22 11/01/24 History (Jardiance) duloxetine 60 mg capsule,delayed 120 mg PO DAILY depression 11/23/23 11/01/24 History release (Cymbalta) carvedilol 6.25 mg tablet 6.25 mg PO BID heart #60 tabs 03/29/24 11/01/24 Rx sacubitril 24 mg-valsartan 26 mg 1 tab PO BID #60 tabs 03/29/24 11/01/24 Rx tablet (Entresto) hydrochlorothiazide 25 mg tablet 25 mg PO DAILY htn 09/11/24 11/01/24 History ondansetron 4 mg disintegrating 4 mg PO Q6H PRN nausea and 09/11/24 Unknown Rx tablet vomiting #7 tabs insulin glargine 100 unit/mL (3 40 unit subcut BID 11/01/24 11/01/24 History mL) subcutaneous pen (Lantus Solostar U-100 Insulin) insulin lispro 200 unit/mL (3 mL) 0 - 25 unit subcut 4X/DAY 11/01/24 11/01/24 History subcutaneous pen (Humalog KwikPen U-200 Insulin) Allergy/AdvReac Type Severity Reaction Status Date / Time etodolac Allergy Unknown Unknown Verified 12/29/24 07:42 nifedipine (From Adalat) Allergy Unknown Verified 12/29/24 07:42 Family History Father Heart disease Son Kidney disease Surgical History Hx of CABG History of coronary artery stent placement S/P coronary artery bypass graft x 4 (~08/03/19) Stented coronary artery (03/06/19) History of umbilical hernia repair History of back surgery History of lumbar fusion Social History household members: spouse Smoking Status: Current every day smoker tobacco type: pipe alcohol intake: never substance use type: does not use caffeine: No ROS Constitutional Constitutional: Denies anorexia, change in weight, chills, fatigue, fever(s), night sweats or weakness Eyes Eyes: Denies blurry vision, change in vision, discharge from eye(s) or eye pain Cardiovascular Cardiovascular: Reports chest pain; Denies claudication, edema or palpitations Respiratory/Chest Respiratory/Chest: Denies cough, dyspnea, hemoptysis, shortness of breath at rest or shortness of breath with exertion Gastrointestinal Gastrointestinal: Reports nausea and vomiting; Denies abdominal pain, constipation, diarrhea, hematemesis, hematochezia or melena Genitourinary Genitourinary: Denies dysuria, hematuria, urinary frequency, urinary hesitancy, urinary incontinence or urinary urgency Musculoskeletal Musculoskeletal: Denies back pain, joint pain, joint stiffness, joint swelling, myalgias or neck pain Neurologic Neurologic: Denies abnormal gait, abnormal speech, dizziness, focal weakness, headache(s), loss of vision, numbness, other visual disturbances, paresthesias, syncope or tingling Psychiatric Psychiatric: Denies anxiety, cognitive impairment, depression, irritability, mood swings or suicidal ideation Endocrine Endocrinology: Denies change in body appearance, cold intolerance, excessive sweating, heat intolerance, polydipsia or polyuria Hematologic/Lymphatic Hematologic/Lymphatic: Denies none, anemia, easy bleeding, easy bruising or lymphadenopathy Allergic/Immunologic Allergic/Immunologic: Denies rhinitis, urticaria, eczemia or asthma Vital Signs Vital Signs Vital Signs: 12/29/24 07:42 12/29/24 07:45 12/29/24 08:24 Temperature 97.7 F L Temperature Source Oral Pulse Rate 80 Respiratory Rate 17 Respiratory Effort Normal Non-Labored Respiratory Pattern Normal Blood Pressure 143/83 H Blood Pressure Mean 103 Blood Pressure Source Blood Pressure Position Blood Pressure Location Pulse Ox 100 Oxygen Delivery Method Room Air Room Air 12/29/24 08:40 12/29/24 10:00 12/29/24 11:00 Temperature Temperature Source Pulse Rate 80 78 85 Respiratory Rate 23 H 16 18 Respiratory Effort Respiratory Pattern Blood Pressure 127/81 H 126/78 H 124/78 H Blood Pressure Mean 96 94 93 Blood Pressure Source Blood Pressure Position Blood Pressure Location Pulse Ox 99 98 98 Oxygen Delivery Method Room Air Room Air Room Air 12/29/24 12:00 12/29/24 13:00 12/29/24 14:12 Temperature 98.7 F Temperature Source Pulse Rate 46 L 71 71 Respiratory Rate 16 18 18 Respiratory Effort Respiratory Pattern Blood Pressure 118/71 138/76 H 136/61 H Blood Pressure Mean 86 96 86 Blood Pressure Source Blood Pressure Position Blood Pressure Location Pulse Ox 98 98 99 Oxygen Delivery Method Room Air Room Air 12/29/24 15:00 12/29/24 17:20 12/29/24 19:57 Temperature 98.4 F 98.8 F Temperature Source Oral Oral Pulse Rate 76 77 86 Respiratory Rate 16 18 Respiratory Effort Respiratory Pattern Blood Pressure 186/92 H 126/70 H Blood Pressure Mean 123 88 Blood Pressure Source Monitor Monitor Blood Pressure Position Supine Semi-Fowlers Blood Pressure Location Left Arm Left Arm Pulse Ox 98 98 99 Oxygen Delivery Method Room Air Room Air 12/29/24 20:16 Temperature 97.5 F L Temperature Source Oral Pulse Rate 96 Respiratory Rate 16 Respiratory Effort Respiratory Pattern Blood Pressure 136/68 H Blood Pressure Mean 90 Blood Pressure Source Monitor Blood Pressure Position Semi-Fowlers Blood Pressure Location Right Arm Pulse Ox 95 Oxygen Delivery Method Room Air Weight Weight: 90.718 kg Body Mass Index (BMI) 28.7 Physical Exam Const alert, oriented x3 and no apparent distress General Appearance: cooperative, well kempt and well developed Orientation / Consciousness: awake, oriented to person, oriented to place and oriented to time HEENT normocephalic, head/scalp atraumatic, hearing grossly normal bilaterally and moist oral mucous membranes Eyes PERRL, EOMs intact bilaterally and conjunctivae normal Neck supple, no JVD, thyroid normal and no carotid bruits General: trachea midline Resp normal respiratory effort, no retractions, no use of accessory muscles and clear to auscultation bilaterally Auscultation: Negative for rales, rhonchi or wheezes Cardio regular rate, regular rhythm, S1 normal heart sound, S2 normal heart sound, no murmurs, no rub and no gallops GI normal to inspection, nondistended, normoactive bowel sounds, soft to palpation, non-tender and non-distended Extremity no clubbing, cyanosis or edema Skin no rashes or lesions noted General Skin Exam: no breakdown Neuro oriented x3 and CN's II-XII intact bilaterally Neuro Narrative: Patient is wheelchair-bound Sensorium / Orientation: awake and alert Speech: speech normal Psych affect normal Results Lab / Micro Data 12/29/24 08:10 12/29/24 08:10 Labs: Laboratory Results - last 24 hr 12/29/24 08:10: WBC 15.3 H, RBC 4.97, Hgb 14.8, Hct 42.7, MCV 85.9, MCH 29.8, MCHC 34.7, RDW Std Deviation 43.8, RDW Coeff of Jr 13.9, Plt Count 218, MPV 10.7, Immature Gran % (Auto) 0.900, Neut % (Auto) 83.1 H, Lymph % (Auto) 8.6 L, Hubbard % (Auto) 6.4, Eos % (Auto) 0.8, Baso % (Auto) 0.2, Absolute Neuts (auto) 12.7 H, Absolute Lymphs (auto) 1.31, Nucleated RBC % 0, Sodium 136, Potassium 4.0, Chloride 93 L, Carbon Dioxide 28.2, Anion Gap 14, BUN 29 H, Creatinine 1.41 H, Estim Creat Clear Calc 58.50, Est GFR (MDRD) Non-Af 55 L, BUN/Creatinine Ratio 20.2 H, Glucose 97, Calcium 9.6, Troponin T High Sens 49 H D 12/29/24 10:24: Troponin T Hi Sens 2 Hr 40 H 12/29/24 12:35: Troponin T Hi Sens 4Hr 38 H Imaging Radiology Impression Chest X-Ray 12/29/24 08:29 IMPRESSION: Status post midline sternotomy. Borderline cardiomegaly. The lungs are clear. Reading Location: [facility] Abdomen/Pelvis CT 12/29/24 11:29 IMPRESSION: No acute cardiopulmonary abnormalities. Reading Location: [id number] Assessment & Plan Assessment/Plan (1) Chest pain: PLAN: Plan 1. Chest pain-etiology unclear, patient's cardiac enzymes did not significantly elevate, patient will be placed in observation status on PCU, echocardiogram will be obtained and patient will undergo a resting pharmacological nuclear stress test tomorrow. #2 uncontrolled nausea with vomiting-secondary to gastroenteritis-patient will be given IV fluids and antiemetics #3 coronary artery disease-complicates care, management, recovery, and prognosis #4 type 2 diabetes-patient's blood sugars will be monitored, sliding scale insulin will be administered as needed, basal insulin will be held at this time #5 chronic kidney disease stage IIIa-complicates care, management, recovery, and prognosis #6 ischemic cardiomyopathy-patient's echocardiogram will be repeated in the morning, last echocardiogram in October 2023 showed an EF of 30%, patient is on Entresto #7 cerebrovascular disease-patient is currently on 81 mg aspirin per day and a statin #8 chronic depression-patient is on Cymbalta Total clinical time spent by myself addressing the patient's medical issues, reviewing all of his data, and collaborating with patient's care team: 75 minutes Charges/Coding Visit Charges Inpatient E&M: 62366 Init Hosp L3
[2024-12-29] MEDS: SACUBITRIL/VALSARTAN 24/26 MG TABLET 1 EACH PO (21:23)
[2024-12-29] MEDS: Heparin Injection (Vial) 5,000 UNIT/ML VIAL 5000 UNIT SC (21:23)
[2024-12-30 02:20] VITALS: BP 115/71; PULSE 74; RESP 16; TEMP 36.7; O2SAT 99
--- NOTE | 2024-12-30 05:55 | EKG12_ITS ---
Test Reason : AM EKG Blood Pressure : */* mmHG Vent. Rate : 75 BPM Atrial Rate : 75 BPM P-R Int : 156 ms QRS Dur : 102 ms QT Int : 450 ms P-R-T Axes : 37 9 111 degrees QTcB Int : 502 ms Normal sinus rhythm Moderate voltage criteria for LVH, may be normal variant ( R in aVL , [place] product ) Inferior infarct , age undetermined Abnormal ECG When compared with ECG of 29-Dec-2024 16:45, MANUAL COMPARISON REQUIRED DATA IS UNCONFIRMED Confirmed by EDVIN TINEO, ZAK ([id number]), digital editor PB CHÁVEZ ([id number]) on 01/01/2025 8:33:07 AM Referred By: Confirmed By: ZAK PARDO MD
[2024-12-30] MEDS: 0.9% Normal Saline (1000mL) 1,000 ML 100 ML IV (05:59)
[2024-12-30 06:55] VITALS: BP 161/84; PULSE 76; RESP 16; TEMP 37.1; O2SAT 96
--- NOTE | 2024-12-30 10:52 | PN.HOSP_ITS ---
Reason for Visit Chief Complaint: Chest pain, nausea and vomiting Objective Data Objective Data Vital Signs: Vital Signs Temp Pulse Resp BP Pulse Ox O2 Del Method 98.8 F 76 16 161/84 H 96 Room Air 12/30/24 06:55 12/30/24 06:55 12/30/24 06:55 12/30/24 06:55 12/30/24 06:55 12/30/24 06:55 Oxygen Delivery Method Room Air Weight: 200 lb Body Mass Index (BMI) 28.7 Intake & Output: Intake and Output for Last 24 Hours 12/28/24 12/29/24 12/30/24 23:59 23:59 23:59 Intake Total 1216.67 / 1216.67 Balance 1216.67 / 1216.67 Lab / Micro Data 12/29/24 08:10 12/29/24 08:10 Labs: Laboratory Results - last 24 hr 12/29/24 10:24: Troponin T Hi Sens 2 Hr 40 H 12/29/24 12:35: Troponin T Hi Sens 4Hr 38 H 12/30/24 03:05: POC Glucose 145 H 12/30/24 06:04: POC Glucose 146 H Radiography Diagnostic Testing: Radiology Impression Abdomen/Pelvis CT 12/29/24 11:29 IMPRESSION: No acute cardiopulmonary abnormalities. Reading Location: [facility] Physical Exam Narrative Seen and examined Patient was admitted after he woke up with the chest pain which he felt like gripping sensation along with shortness of breath. Chest pain was more localized along with upper abdominal pain. Denies any radiation. This lasted until he came to ED and was given some IV medication, probably Haldol in ED Physical exam: General: Alert, Oriented x3, Cooperative. BMI 28.7 kg/m? HEENT: Atraumatic, PERRLA, EOMI, Normocephalic. Oral: No Gingival or Mucosal Lesions/ Ulcerations Neck: Supple, No JVD, Negative Carotid Bruits Chest wall/Lungs: Air entry diminished in bilateral lung bases. No crepitation/rhonchi Cardiovascular: Regular rate and rhythm, Normal S1,S2, No M/G/R Abdomen: Bowel Sounds Present, Soft, Non Tender, Non-Distended : No dysuria. No renal angle tenderness. No suprapubic tenderness. Extremities: No edema, Capillary Refill Less than 3 Seconds Skin: Healing scab and multiple bruises in lower extremity. Had fall couple weeks TO 1 month ago Musculoskeletal: No Tenderness to Palpation of Joints or Extremities Neurological: Cranial nerves II-XII grossly intact, DTR 2+/4. No acute focal neurological deficit. Psych/Mental Status: flat affect
[2024-12-30 11:10] VITALS: BP 154/82; PULSE 76; RESP 18; TEMP 36.5; O2SAT 99
[2024-12-30] MEDS: Insulin Glargine-YFGN 100 UNIT/ML Pen 30 UNIT SC (11:16)
[2024-12-30] MEDS: SACUBITRIL/VALSARTAN 24/26 MG TABLET 1 EACH PO (11:19)
[2024-12-30] MEDS: 0.9% Saline Lock 10 ML Syringe IV (12:06)
--- NOTE | 2024-12-30 12:24 | STRESSREP ---
Stress Test Report Pharmacologic myocardial perfusion stress test. 64-year-old man with a history of coronary disease. Resting EKG demonstrates normal sinus rhythm with a rate of 75 bpm. Resting blood pressure is 130/80 mmHg. 0.4 mg of regadenoson was infused per usual protocol followed by rapid intravenous saline flush injection. Continuous EKG monitoring was performed. The maximum heart rate was 86 bpm which was 55% of max impacted heart rate the maximum workload was 1 metabolic equivalent. At rest there were no ST or T wave changes noted to suggest ischemia and at peak infusion nonspecific ST changes were noted which did not meet the criteria for ischemia. No clinical angina is noted. The final blood pressure was 122/6 mmHg. Myocardial perfusion protocol. 12 mCi of technetium 99m sestamibi was injected at rest. 0.4 mg of regadenoson was infused per usual protocol. At peak infusion 36 mCi of technetium 99m sestamibi was injected stress images were obtained stress and rest images were reconstructed and compared in the short axis vertical long and horizontal long axis. Gated images were also obtained. Perfusion SPECT analysis: Review of the stress images demonstrate normal uptake of tracer noted in all areas of the myocardium. There is a medium size defect in the basal to mid inferior wall and mild reduction of perfusion noted in the mid to distal inferior wall. The resting images demonstrate a similar pattern. The above is suggestive of a previous extensive basal to mid inferior infarct and probably mild reduction of perfusion of the mid to distal inferior wall. No reversibility is noted suggest ischemia. Gated SPECT analysis: The gated ejection fraction is 30%. Conclusion: Normal pharmacologic myocardial perfusion stress test. Reduced ejection fraction. Previous inferior infarct noted with no ischemia present.
--- NOTE | 2024-12-30 12:50 | DCINST_ITS ---
Discharge Instructions DC O2, CPAP, BIPAP needs Home O2 Discharge instructions: No Dressing / Incision Discharge Activity: Return to Normal Activity Weight Bearing Status: Weight bearing as tolerated Dressing / Incision Call your doctor if you observe: Fever of 101 or Higher, Coldness, Increased Pain, Numbness or Tingling, Change in Color, Inability to urinate, Inability to have a bowel movement, Shortness of breath, Dizziness, Fainting spells, Swelling in the ankles, Chest pain, Prolonged hiccupping, Increased palpitations (irregular heartbeat) and Calf discomfort Follow Up Care When: IN 2 WEEKS Test Results: Test results from this visit will be discussed in further detail at your follow- up appointment, if applicable. Discharge Plan Admission Admit Date/Time: 12/29/24 15:26 Attending Provider: Cristofer Desouza Primary Care Provider: Chema Mckeon Consulting Providers: Chema Haro Discharge Orders/Prescriptions Prescriptions: Continued duloxetine [Cymbalta] 60 mg capsule,delayed release(DR/EC) 120 mg PO DAILY cholecalciferol (vitamin D3) 50 mcg (2,000 unit) tablet 50 mcg PO DAILY carvedilol 6.25 mg tablet 6.25 mg PO BID Qty: 60 3RF sacubitril-valsartan [Entresto] 24-26 mg tablet 1 tab PO BID Qty: 60 4RF aspirin 81 MG tablet,chewable 81 mg PO DAILY atorvastatin 80 MG tablet 80 mg PO QHS nitroglycerin 0.4 mg tablet, sublingual 0.4 mg sublingual Q5M PRN (Reason: Chest Pain) Patient Comments: Place 1 tablet under tongue as needed for Chest pain. max = 3 doses. If CP persists after 1st dose, call 911 Jardiance 10 mg tablet 10 mg PO DAILY insulin glargine [Lantus Solostar U-100 Insulin] 100 unit/mL (3 mL) insulin pen 40 unit subcut BID Humalog KwikPen Insulin 200 unit/mL (3 mL) insulin pen 0 - 25 unit subcut 4X/DAY hydrochlorothiazide 25 mg tablet 25 mg PO DAILY ondansetron 4 mg tablet,disintegrating 4 mg PO Q6H PRN (Reason: nausea and vomiting) Qty: 7 0RF magnesium oxide 400 mg magnesium capsule 400 mg PO BID Referrals / Follow Up: Mike,Chema, DO [Primary Care Provider, Family Practice] - Within 2 Weeks Disposition Disposition (needs filled in before D/C Order can be placed): Home, Self Care
--- NOTE | 2024-12-30 12:53 | PCM.DC.SUM ---
Providers Date of Admission: 12/29/24 Date of Discharge: 12/30/24 Primary Care Physician: Dr. Chema Mckeon DO Reason For Visit: CHEST PAIN, NAUSEA AND VOMITING Diagnosis Discharge Diagnosis (1) Chest pain: Status: Acute Code(s): R07.9 - Chest pain, unspecified Plan This 64-year-old gentleman was admitted for atypical chest pain and shortness of breath. 1. Atypical pain, noncardiac origin: Patient being admitted in PCU. Troponins were elevated but similar and flat. Nuclear stress test was done was negative for acute ischemia. Patient chest pain-free. Patient is discharged home. May be from GERD. 12/29/24 12:35: Troponin T Hi Sens 4Hr 38 H 12/30/24 03:05: POC Glucose 145 H 12/30/24 06:04: POC Glucose 146 H 12/30/24 11:15: POC Glucose 157 H #2 uncontrolled nausea with vomiting-possible due to gastritis-: Resolved. #3 coronary artery disease-status post CABG and cardiac stent placement: Had four-vessel CABG in July 2019. On baby aspirin, atorvastatin, empagliflozin, carvedilol and Entresto. Complicates care, management, recovery, and prognosis. Home cardiac medications resumed #4 type 2 diabetes-patient's blood sugars is reasonably controlled. On Lantus 30 units twice daily #5 chronic kidney disease stage IIIa-complicates care, management, recovery, and prognosis. BUN/creatinine 29/1.41. #6 ischemic cardiomyopathy, chronic HFrEF:-patient's echocardiogram EF mildly improved, last echocardiogram in October 2023 showed an EF of 30%, patient is on Entresto #7 cerebrovascular disease-patient is currently on 81 mg aspirin per day and a statin #8 chronic depression-patient is on Cymbalta Echo 12/29/2024 Interpretation Summary Normal LV size. The left ventricular ejection fraction is 40 %. Mild segmental systolic dysfunction (see wall motion). Infero-Basal: Hypokinetic There are regional wall motion abnormalities as specified. Contrast injection was performed. Discharge medication reconciliation done. Discharge follow-up instructions completed. Discharge process discussed with the patient and all questions were answered to patient's satisfaction. Follow with PCP in 1 to 2 weeks Total time spent, exact 35 minutes on discharge meds reconciliation, examination, coordination of care with nurses and ancillary staff, review of imaging and blood test and discussion with the patient on follow-up instructions. Medications at Discharge Home Medications aspirin 81 mg chewable tablet 81 mg PO DAILY heart health 03/10/19 magnesium oxide 400 mg PO BID supplement 08/08/19 cholecalciferol (vitamin D3) 50 mcg (2,000 unit) tablet 50 mcg PO DAILY supplement 09/27/19 atorvastatin 80 mg tablet 80 mg PO QHS cholesterol 11/26/19 nitroglycerin 0.4 mg sublingual tablet 0.4 mg sublingual Q5M PRN Chest Pain 09/12/20 empagliflozin 10 mg tablet (Jardiance) 10 mg PO DAILY diabetes 11/17/22 duloxetine 60 mg capsule,delayed release (Cymbalta) 120 mg PO DAILY depression 11/23/23 carvedilol 6.25 mg tablet 6.25 mg PO BID heart #60 tabs 03/29/24 sacubitril 24 mg-valsartan 26 mg tablet (Entresto) 1 tab PO BID #60 tabs 03/29/24 hydrochlorothiazide 25 mg tablet 25 mg PO DAILY htn 09/11/24 ondansetron 4 mg disintegrating tablet 4 mg PO Q6H PRN nausea and vomiting #7 tabs 09/11/24 insulin glargine 100 unit/mL (3 mL) subcutaneous pen (Lantus Solostar U-100 Insulin) 40 unit subcut BID 11/01/24 insulin lispro 200 unit/mL (3 mL) subcutaneous pen (Humalog KwikPen U-200 Insulin) 0 - 25 unit subcut 4X/DAY 11/01/24 Physical Exam Narrative Seen and examined Patient was admitted after he woke up with the chest pain which he felt like gripping sensation along with shortness of breath. Chest pain was more localized along with upper abdominal pain. Denies any radiation. This lasted until he came to ED and was given some IV medication Stress test was done and was negative. Physical exam: General: Alert, Oriented x3, Cooperative. BMI 28.7 kg/m? HEENT: Atraumatic, PERRLA, EOMI, Normocephalic. Oral: No Gingival or Mucosal Lesions/ Ulcerations Neck: Supple, No JVD, Negative Carotid Bruits Chest wall/Lungs: Air entry diminished in bilateral lung bases. No crepitation/rhonchi Cardiovascular: Regular rate and rhythm, Normal S1,S2, No M/G/R Abdomen: Bowel Sounds Present, Soft, Non Tender, Non-Distended : No dysuria. No renal angle tenderness. No suprapubic tenderness. Extremities: No edema, Capillary Refill Less than 3 Seconds Skin: Healing scab and multiple bruises in lower extremity. Had fall couple weeks TO 1 month ago Musculoskeletal: No Tenderness to Palpation of Joints or Extremities Neurological: Cranial nerves II-XII grossly intact, DTR 2+/4. No acute focal neurological deficit. Psych/Mental Status: flat affect Weight / BMI Weight Weight: 200 lb Body Mass Index (BMI) 28.7 ABG / Lab / Microbiology Data 12/29/24 08:10 12/29/24 08:10 Laboratory: Laboratory Results - last 24 hr 12/29/24 12:35: Troponin T Hi Sens 4Hr 38 H 12/30/24 03:05: POC Glucose 145 H 12/30/24 06:04: POC Glucose 146 H 12/30/24 11:15: POC Glucose 157 H Radiography Diagnostic Testing: Radiology Impression Echocardiogram 12/29/24 15:35 Interpretation Summary Normal LV size. The left ventricular ejection fraction is 40 %. Mild segmental systolic dysfunction (see wall motion). Infero-Basal: Hypokinetic There are regional wall motion abnormalities as specified. Contrast injection was performed. Ordering Physician: Chema Haro Referring Physician: Chema Mckeon Performed By: Kristy Bustamante RDCS D/C Instructions Weight Bearing Status: Weight bearing as tolerated Call your doctor if you observe: Fever of 101 or Higher, Coldness, Increased Pain, Numbness or Tingling, Change in Color, Inability to urinate, Inability to have a bowel movement, Shortness of breath, Dizziness, Fainting spells, Swelling in the ankles, Chest pain, Prolonged hiccupping, Increased palpitations (irregular heartbeat) and Calf discomfort DC O2, CPAP, BIPAP Needs Home O2 Discharge instructions: No When: IN 2 WEEKS Meaningful Use Info Meaningful Use Meaningful Use Diagnoses (Choose all that apply): None applicable Discharge Plan Admission Admit Date/Time: 12/29/24 15:26 Attending Provider: Cristofer Desouza Primary Care Provider: Chema Mckeon Consulting Providers: Chema Haro Discharge Orders/Prescriptions Prescriptions: Continued duloxetine [Cymbalta] 60 mg capsule,delayed release(DR/EC) 120 mg PO DAILY cholecalciferol (vitamin D3) 50 mcg (2,000 unit) tablet 50 mcg PO DAILY carvedilol 6.25 mg tablet 6.25 mg PO BID Qty: 60 3RF sacubitril-valsartan [Entresto] 24-26 mg tablet 1 tab PO BID Qty: 60 4RF aspirin 81 MG tablet,chewable 81 mg PO DAILY atorvastatin 80 MG tablet 80 mg PO QHS nitroglycerin 0.4 mg tablet, sublingual 0.4 mg sublingual Q5M PRN (Reason: Chest Pain) Patient Comments: Place 1 tablet under tongue as needed for Chest pain. max = 3 doses. If CP persists after 1st dose, call 911 Jardiance 10 mg tablet 10 mg PO DAILY insulin glargine [Lantus Solostar U-100 Insulin] 100 unit/mL (3 mL) insulin pen 40 unit subcut BID Humalog KwikPen Insulin 200 unit/mL (3 mL) insulin pen 0 - 25 unit subcut 4X/DAY hydrochlorothiazide 25 mg tablet 25 mg PO DAILY ondansetron 4 mg tablet,disintegrating 4 mg PO Q6H PRN (Reason: nausea and vomiting) Qty: 7 0RF magnesium oxide 400 mg magnesium capsule 400 mg PO BID Referrals / Follow Up: Chema Mckeon DO [Primary Care Provider, Family Practice] - Within 2 Weeks Disposition Disposition (needs filled in before D/C Order can be placed): Home, Self Care Charges/Coding Visit Charges Inpatient E&M: 10102 Disch Hosp >30min
[2024-12-30 15:08] VITALS: BP 119/77; PULSE 85
== END 2024-12-30 15:41 | disposition home or self-care (01) ==
LOC: ED 13:42 → PCU 15:46
PROVIDERS: Admitting Provider Internal Medicine; Emergency Provider Emergency Medicine; PCP Family Medicine; Visit Provider Internal Medicine
DX: R07.89 Other chest pain (principal); I50.22 Chronic systolic (congestive) heart failure; I13.0 Hypertensive heart and chronic kidney disease with heart failure and stage 1 through stage 4 chronic kidney disease, or unspecified chronic kidney disease; E11.22 Type 2 diabetes mellitus with diabetic chronic kidney disease; Z79.4 Long term (current) use of insulin; N18.31 Chronic kidney disease, stage 3a; Z79.899 Other long term (current) drug therapy; F17.290 Nicotine dependence, other tobacco product, uncomplicated; Z86.73 Personal history of transient ischemic attack (TIA), and cerebral infarction without residual deficits; K52.9 Noninfective gastroenteritis and colitis, unspecified; E78.5 Hyperlipidemia, unspecified; I25.10 Atherosclerotic heart disease of native coronary artery without angina pectoris; Z79.84 Long term (current) use of oral hypoglycemic drugs; I25.5 Ischemic cardiomyopathy; K21.9 Gastro-esophageal reflux disease without esophagitis; Z79.82 Long term (current) use of aspirin; F32.A Depression, unspecified
CPT/HCPCS: 71045; 74177; 78452; 80048; 82962; 84484; 85025; 93005; 93017; 93306; 96361; 96365; 96366; 96372; 96375; 99221; 99285; 99406; A9500; Q9957; Q9967; A4216; C8929; G0378; J2405

== ENCOUNTER 2025-01-20 14:39 | Emergency (ER) | payer MEDICARE, SELFPAY ==
[2019-03-06 08:28] VITALS: BMI 29.0
[2025-01-20 14:41] VITALS: BP 98/65; PULSE 71; RESP 20; TEMP 36.6; O2SAT 98; BMI 29.6
--- NOTE | 2025-01-20 14:59 | EKG12_ITS ---
Test Reason : CP/SOB/FALL Blood Pressure : */* mmHG Vent. Rate : 69 BPM Atrial Rate : 69 BPM P-R Int : 206 ms QRS Dur : 98 ms QT Int : 416 ms P-R-T Axes : 48 -8 144 degrees QTcB Int : 445 ms Normal sinus rhythm Minimal voltage criteria for LVH, may be normal variant ( R in aVL ) Inferior infarct , age undetermined ST & T wave abnormality, consider lateral ischemia Abnormal ECG Confirmed by EDVIN TINEO, ZAK ([id number]), editor publications MAUREEN MCKINLEY ([id number]) on 01/23/2025 7:38:43 AM Referred By: ES/ER Confirmed By: ZAK PARDO MD
[2025-01-20] MEDS: 0.9% Normal Saline (1000mL) 1,000 ML 999 ML IV (15:08)
--- NOTE | 2025-01-20 15:10 | RAD_ITS ---
PROCEDURE: CHEST PA AND LATERAL 01/20/2025 REASON FOR EXAM: SOB TECHNIQUE: Procedure Code: RADCXR Modality: DX Procedure: CHEST PA AND LATERAL COMPARISON: 12/29/2024 FINDINGS: There is no consolidation in either lung. No pleural effusion or pneumothorax. Stable appearance of the cardiomediastinal silhouette. Sternal wires, mediastinal clips, atherosclerotic calcification at aortic arch. RAD/Chest PA and Lateral IMPRESSION: No acute process in the chest Reading Location: [id number]
[2025-01-20 15:12] LABS: Hematocrit 42.8 % (40-54); Hemoglobin 14.5 g/dL (13.0-16.5); Immature Granulocytes Count 0.090 X10^3/uL (0.0-0.0); Mean Corp Hgb Conc 33.9 g/dL (32-36); Mean Corpuscular Volume 87.5 fL (80-94); Mean Platelet Vol. 11.8 fl (6.2-12.0); NRBC Flagged by Analyzer 0 % (0-5); Platelet Count 201 K/mm3 (150-450); RBC Distribution Width CV 13.8 % (11.6-14.6); RBC Distribution Width SD 44.0 fl (35.1-43.9); Red Blood Count 4.89 M/mm3 (4.6-6.2); White Blood Count 8.7 K/mm3 (4.4-11.0)
--- NOTE | 2025-01-20 15:31 | EX.ED.DYSGE1 ---
HPI History of Present Illness Chief Complaint: Shortness of Breath Narrative Narrative: Patient is a 64-year-old male with a history of IN, CVA, and multiple CABG procedures, presenting to the ED via EMS after a fall with associated lightheadedness, dyspnea, and foot pain. - Fall occurred today around 1400 while attempting to transfer from a car to a scooter; missed the scooter and fell to the ground. - Denies head trauma or LOC; reports feeling lightheaded during the fall. - On the ground for approximately 30 minutes, with head positioned near car hinges. - EMS transported patient to the ED. - Currently unable to walk due to weakness; uses a wheelchair which is baseline - Reports swelling and pain on the lateral aspect of the foot, which has a chronic wound initially described as a 2x2 inch blister; nurses have noted improvement, but patient is still under medical care for it. - Denies current chest pain, but experienced mild chest discomfort immediately after the fall, which has since resolved. - Denies headaches, diplopia, palpitations, nausea, emesis, or diarrhea. - Taking multiple medications, including low-dose aspirin; denies use of other anticoagulants such as Eliquis, Xarelto, or warfarin. 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 Obesity Polyp of colon Systolic CHF GERD (gastroesophageal reflux disease) Ischemic cardiomyopathy Essential hypertension Hyperlipidemia Debility Arteriosclerosis of coronary artery in patient with history of myocardial infarction STEMI (ST elevation myocardial infarction) (03/05/19) Type 2 diabetes mellitus CVA (cerebral vascular accident) Syncope and collapse Bradycardia Syncope Anxiety Noncompliance with diabetes treatment Back pain FLORY (acute kidney injury) Nonketotic hyperglycinemia Hematochezia Home Medications ?Medication ?Instructions ?Recorded ?Last Taken ?Type aspirin 81 mg chewable tablet 81 mg PO DAILY heart health 03/10/19 11/01/24 History magnesium oxide 400 mg PO BID supplement 08/08/19 11/01/24 History cholecalciferol (vitamin D3) 50 50 mcg PO DAILY supplement 09/27/19 11/01/24 History mcg (2,000 unit) tablet atorvastatin 80 mg tablet 80 mg PO QHS cholesterol 11/26/19 10/31/24 History nitroglycerin 0.4 mg sublingual 0.4 mg sublingual Q5M PRN Chest 09/12/20 Unknown History tablet Pain empagliflozin 10 mg tablet 10 mg PO DAILY diabetes 11/17/22 11/01/24 History (Jardiance) duloxetine 60 mg capsule,delayed 120 mg PO DAILY depression 11/23/23 11/01/24 History release (Cymbalta) carvedilol 6.25 mg tablet 6.25 mg PO BID heart #60 tabs 03/29/24 11/01/24 Rx sacubitril 24 mg-valsartan 26 mg 1 tab PO BID #60 tabs 03/29/24 11/01/24 Rx tablet (Entresto) hydrochlorothiazide 25 mg tablet 25 mg PO DAILY htn 09/11/24 11/01/24 History ondansetron 4 mg disintegrating 4 mg PO Q6H PRN nausea and 09/11/24 Unknown Rx tablet vomiting #7 tabs insulin glargine 100 unit/mL (3 40 unit subcut BID 11/01/24 11/01/24 History mL) subcutaneous pen (Lantus Solostar U-100 Insulin) insulin lispro 200 unit/mL (3 mL) 0 - 25 unit subcut 4X/DAY 11/01/24 11/01/24 History subcutaneous pen (Humalog KwikPen U-200 Insulin) aripiprazole 2 mg tablet 2 mg PO QHS 01/20/25 Unknown History docusate sodium 100 mg capsule 100 mg PO BID 01/20/25 Unknown History (Stool Softener) metoclopramide HCl 10 mg tablet 10 mg PO TID 01/20/25 Unknown History Allergy/AdvReac Type Severity Reaction Status Date / Time etodolac Allergy Unknown Unknown Verified 12/29/24 07:42 nifedipine (From Adalat) Allergy Unknown Verified 12/29/24 07:42 Family History Father Heart disease Son Kidney disease Surgical History Hx of CABG History of coronary artery stent placement S/P coronary artery bypass graft x 4 (~04/23/20) Stented coronary artery (03/06/19) History of umbilical hernia repair History of back surgery History of lumbar fusion Social History household members: spouse Smoking Status: Current every day smoker tobacco type: pipe alcohol intake: never substance use type: does not use caffeine: No ROS ROS ED ROS Narrative Constitutional: (+) hunger, (+) generalized weakness Head: (-) headache Eyes: (-) diplopia Cardiovascular: (-) chest pain, (-) palpitations Respiratory: (-) shortness of breath Gastrointestinal: (+) epigastric abdominal pain, (-) nausea, (-) vomiting, (-) diarrhea Musculoskeletal: (+) foot swelling, (+) foot pain, (+) difficulty walking Skin: (+) left foot wound Neurological: (+) dizziness, (-) syncope EXAM Physical Exam Narrative Exam Narrative: General: No acute distress. HEENT: Head atraumatic, normocephalic; PERRL bilaterally, no conjunctival injection noted; neck soft, supple, trachea midline. CV: Regular rate and rhythm, no murmurs, gallops, or rubs noted. Resp: Clear auscultation bilaterally, no rales, rhonchi, or wheezes noted. Abd: Soft, non-distended, mild tenderness to palpation in the epigastric region. Skin: Evidence of chronic wound to the left lateral aspect of foot, no purulent drainage noted. MSK/Ext: Full flexion and extension of elbows and wrists without pain; full range of motion of shoulders bilaterally without pain; right knee non-tender to palpation; right tibia and fibula non-tender to palpation; right ankle non-tender to palpation; negative log roll on right and left sides; left knee non-tender to palpation. Back: No tenderness to palpation in the midline cervical, thoracic, or lumbar spine. Const Vital Signs: 01/20/25 14:41 01/20/25 15:01 01/20/25 15:40 Temperature 97.9 F Temperature Source Oral Pulse Rate 71 65 Respiratory Rate 20 H Respiratory Effort Normal Respiratory Depth Normal Respiratory Pattern Normal Blood Pressure 98/65 124/71 H Blood Pressure Mean 76 88 Pulse Ox 98 98 Oxygen Delivery Method Room Air Room Air Room Air 01/20/25 15:59 01/20/25 16:00 01/20/25 17:00 Temperature Temperature Source Pulse Rate Respiratory Rate Respiratory Effort Respiratory Depth Respiratory Pattern Blood Pressure 128/81 H Blood Pressure Mean 96 Pulse Ox 100 100 95 Oxygen Delivery Method MDM MDM MDM Narrative Medical decision making narrative: Assessment: The patient is a 64-year-old male with PMH of coronary artery disease status-post five-vessel CABG, prior myocardial infarction, prior stroke, and chronic kidney disease stage 3b presenting for evaluation after falling from a car today around 14:00 with transient lightheadedness, brief chest discomfort, shortness of breath, and chronic left foot wound pain. Differential diagnoses discussed include but not limited to ACS, CHF exacerbation, osteomyelitis of the left foot, and generalized weakness. Troponin 30 with delta 25, normal proBNP 587, and chest X-ray without acute process combined with resolution of chest pain make ACS and CHF exacerbation less likely. Foot X-ray shows no focal erosions and the clinician states that clinically osteomyelitis is not suspected at this visit. Given normal vitals, reassuring studies, and symptom resolution, patient is safe for discharge home. Plan: - Discussed all study results with patient; answered questions. - Provided discharge instructions including return precautions and need for wound care and PCP follow-up. - Patient prefers and is medically cleared for discharge home in stable condition. Patient is nonambulatory baseline. Diagnostics: - CBC: WBC 8.7 K/?L, Hgb 14.5 g/dL, platelets 201 K/?L; no leukocytosis. - BMP: sodium 137 mEq/L, potassium 4.2 mEq/L, creatinine 1.89 mg/dL (baseline CKD). - Troponin 30 ng/L with delta 25 ng/L. - proBNP 587 pg/mL (normal per lab reference). - EKG interpreted: sinus rhythm, rate 69 bpm, QRS 98 ms, minimal changes in leads II, III, I; compared to 12/30/2024 tracing; no new ischemic changes. Independently interpreted by Matt tatum. - Chest X-ray: no acute intrathoracic process. - Left foot X-ray: diffuse osteopenia; no focal erosions; limited evaluation. Lab Data Labs: Laboratory Results - last 24 hr 01/20/25 01/20/25 14:47 17:20 WBC 8.7 RBC 4.89 Hgb 14.5 Hct 42.8 MCV 87.5 MCH 29.7 MCHC 33.9 RDW Std Deviation 44.0 H RDW Coeff of Jr 13.8 Plt Count 201 MPV 11.8 Immature Gran % (Auto) 1.000 H Neut % (Auto) 79.1 H Lymph % (Auto) 9.6 L [place] % (Auto) 7.2 Eos % (Auto) 2.5 Baso % (Auto) 0.6 Absolute Neuts (auto) 6.9 Absolute Lymphs (auto) 0.84 Nucleated RBC % 0 Sodium 137 Potassium 4.2 Chloride 100 Carbon Dioxide 25.8 Anion Gap 11 BUN 38 H Creatinine 1.89 H Estim Creat Clear Calc 44.17 L Est GFR (MDRD) Non-Af 39 L BUN/Creatinine Ratio 19.9 Glucose 138 H Calcium 9.5 Troponin T High Sens 30 H D Troponin T Hi Sens 2 Hr 25 H NT pro BNP II 587 Radiography Diagnostic Testing: Clinical Impression(s) from Imaging Studies Chest X-Ray 01/20/25 15:10 IMPRESSION: No acute process in the chest Reading Location: [id number] Foot X-Ray 01/20/25 15:45 IMPRESSION: Diffuse osteopenia limits evaluation, though no focal erosions identified. Consider MRI or bone scan if there is concern for acute osteomyelitis. Reading Location: [facility] Discharge Plan Triage Chief Complaint: Shortness of Breath ED Provider: Matt Wood Dx/Rx/DC Orders Clinical Impression: Fall, Chest pain, Breath shortness, Wound of left foot, Chronic kidney disease Prescriptions: No Action duloxetine [Cymbalta] 60 mg capsule,delayed release(DR/EC) 120 mg PO DAILY cholecalciferol (vitamin D3) 50 mcg (2,000 unit) tablet 50 mcg PO DAILY carvedilol 6.25 mg tablet 6.25 mg PO BID Qty: 60 3RF sacubitril-valsartan [Entresto] 24-26 mg tablet 1 tab PO BID Qty: 60 4RF aspirin 81 MG tablet,chewable 81 mg PO DAILY atorvastatin 80 MG tablet 80 mg PO QHS nitroglycerin 0.4 mg tablet, sublingual 0.4 mg sublingual Q5M PRN (Reason: Chest Pain) Patient Comments: Place 1 tablet under tongue as needed for Chest pain. max = 3 doses. If CP persists after 1st dose, call 911 Jardiance 10 mg tablet 10 mg PO DAILY insulin glargine [Lantus Solostar U-100 Insulin] 100 unit/mL (3 mL) insulin pen 40 unit subcut BID Humalog KwikPen Insulin 200 unit/mL (3 mL) insulin pen 0 - 25 unit subcut 4X/DAY docusate sodium [Stool Softener] 100 mg capsule 100 mg PO BID metoclopramide HCl 10 mg tablet 10 mg PO TID aripiprazole 2 mg tablet 2 mg PO QHS hydrochlorothiazide 25 mg tablet 25 mg PO DAILY ondansetron 4 mg tablet,disintegrating 4 mg PO Q6H PRN (Reason: nausea and vomiting) Qty: 7 0RF magnesium oxide 400 mg magnesium capsule 400 mg PO BID Primary Care Provider: Chema Mckeon Referrals: Chema Mckeon DO [Primary Care Provider, [facility]] Activity Restrictions/Additional Instructions: Your blood work did not show any acute findings here in the emergency department your chest x-ray and your foot x-ray was normal. Follow-up your doctors in the outpatient setting return if worsening symptoms or any other concerns Print Language: Portuguese Disposition Disposition: Home, Self Care
[2025-01-20 15:40] VITALS: BP 124/71; PULSE 65; O2SAT 98
--- NOTE | 2025-01-20 15:45 | RAD_ITS ---
PROCEDURE: FOOT MIN 3 VIEWS 01/20/2025 REASON FOR EXAM: CHRONIC FOOT WOUND TECHNIQUE: Procedure Code: RADFO Modality: DX Procedure: FOOT MIN 3 VIEWS Laterality: Left COMPARISON: None FINDINGS: Healed deformity of the 5th metatarsal neck. No displaced fracture. Diffuse osteopenia. Joint space narrowing at the interphalangeal joints. There is ulceration of the lateral soft tissues overlying the 5th metatarsal base. RAD/Foot min 3 Views IMPRESSION: Diffuse osteopenia limits evaluation, though no focal erosions identified. Consider MRI or bone scan if there is concern for acute osteomyelitis. Reading Location: [id number]
[2025-01-20 15:46] LABS: Troponin T High Sensitivity 30 ng/L (<=22)
[2025-01-20 15:48] LABS: Anion Gap 11 (5-15); BUN 38 mg/dL (4-19); BUN/Creat Ratio 19.9 RATIO (10-20); Calcium,Total 9.5 mg/dL (7.6-11.0); Carbon Dioxide 25.8 mmol/L (21.0-32.0); Chloride 100 mmol/L (98-108); Estimated Creatinine Clearance 44.17 ml/min (50-250); Glucose 138 mg/dL (70-99); Potassium 4.2 mmol/L (3.3-5.1); Pro- Brain NATRIURETIC PEPTIDE 587 pg/mL (<=900)
[2025-01-20 15:59] VITALS: O2SAT 100
[2025-01-20 16:00] VITALS: O2SAT 100
[2025-01-20 17:00] VITALS: BP 128/81; O2SAT 95
[2025-01-20 17:43] LABS: Troponin T High Sens 2 HR 25 ng/L (<=22)
[2025-01-20 18:00] VITALS: BP 149/86; PULSE 74; RESP 18; TEMP 36.8; O2SAT 98
== END 2025-01-20 18:10 | disposition home or self-care (01) ==
PROVIDERS: Emergency Provider Emergency Medicine; PCP Family Medicine; Visit Provider Emergency Medicine
DX: R06.02 Shortness of breath (principal); I13.0 Hypertensive heart and chronic kidney disease with heart failure and stage 1 through stage 4 chronic kidney disease, or unspecified chronic kidney disease; I50.20 Unspecified systolic (congestive) heart failure; E11.22 Type 2 diabetes mellitus with diabetic chronic kidney disease; Z79.4 Long term (current) use of insulin; N18.32 Chronic kidney disease, stage 3b; E78.5 Hyperlipidemia, unspecified; I25.10 Atherosclerotic heart disease of native coronary artery without angina pectoris; S91.302A Unspecified open wound, left foot, initial encounter; Z95.1 Presence of aortocoronary bypass graft; Z86.73 Personal history of transient ischemic attack (TIA), and cerebral infarction without residual deficits; I25.2 Old myocardial infarction; Z79.82 Long term (current) use of aspirin; Z79.899 Other long term (current) drug therapy; Z79.84 Long term (current) use of oral hypoglycemic drugs; F32.A Depression, unspecified; F41.9 Anxiety disorder, unspecified; Z95.5 Presence of coronary angioplasty implant and graft; F17.290 Nicotine dependence, other tobacco product, uncomplicated; R07.9 Chest pain, unspecified; W17.89XA Other fall from one level to another, initial encounter; Y92.810 Car as the place of occurrence of the external cause
CPT/HCPCS: 71046; 73630; 80048; 83880; 84484; 85025; 93005; 96360; 99285; A4216

== ENCOUNTER → 2025-01-23 | Outpatient (CLI) | payer MEDICARE, SELFPAY ==
[2019-03-06 08:28] VITALS: BMI 29.0
== END | disposition home or self-care (01) ==
PROVIDERS: PCP Family Medicine; Visit Provider Podiatrist Foot & Ankle Surgery
DX: S91.302A Unspecified open wound, left foot, initial encounter (principal)
CPT/HCPCS: 87070; 87075; 87077; 87186; 87205